=== PATIENT | male | born 1965 | race Caucasian/White ===

== ENCOUNTER → 2018-03-15 16:58 | Outpatient (CLI) | payer MEDICARE, MEDICAID, SELFPAY ==
[2018-03-15 18:15] LABS: Blood Urea Nitrogen 16 mg/dL (9-20); Calcium 9.6 mg/dL (8.4-10.2); Carbon Dioxide 33 mmol/L (22-32); Chloride 90 mmol/L (98-107); Estimated Glomerular Filt Rate > 60.0 mL/min (>60); Glucose 267 mg/dL (70-100); HEMOLYSIS < 15 (0-50); Potassium 4.4 mmol/L (3.4-5.1); Sodium 135 mmol/L (137-145)
[2018-03-15 18:17] LABS: Hemoglobin A1C% w Est Avg Glu 8.6 % (4.0-6.0)
== END ==
PROVIDERS: Family Provider Internal Medicine; PCP Internal Medicine; Visit Provider Internal Medicine
DX: E29.1 Testicular hypofunction (principal); E11.9 Type 2 diabetes mellitus without complications; R60.9 Edema, unspecified; E03.9 Hypothyroidism, unspecified
CPT/HCPCS: 36415; 80048; 83036; 84403; 84443

== ENCOUNTER → 2018-04-26 15:32 | Outpatient (CLI) | payer MEDICARE, MEDICAID, SELFPAY ==
--- NOTE | 2018-04-26 | DI.RAD.S_ITS ---
PROCEDURE: XR FOOT RT MIN 3V INDICATIONS: PAIN IN RT FOOT TECHNIQUE: 3 views of the foot were acquired. COMPARISON: [facility], , FOOT 3V LEFT, 05/16/2017, 13:01. [facility], , FOOT 3V RIGHT, 05/16/2017, 13:00. FINDINGS: Bones: No appreciable change in the pattern of diffuse degenerative osteoarthritic spurring at the midfoot and hindfoot which has been present bilaterally with reference to comparison plain films. 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 Prominent osteophytic spurring is present at the Achilles tendon and plantar fascial insertion and there is heterotopic bone formation within the posterior plantar fascia as was previously the case.. Soft tissues: No tibiotalar joint effusion. Achilles tendon appears normal. IMPRESSION: Stable appearance over time when comparing to the prior right foot plain films from May 2017. The appearance on the left is quite similar, and no new trauma or evidence of erosive arthritis is found. Dictated by: Pete Prasad M.D. on 04/26/2018 at 16:08 Approved by: Pete Prasad M.D. on 04/26/2018 at 16:10
== END ==
PROVIDERS: Family Provider Internal Medicine; PCP Internal Medicine; Visit Provider Internal Medicine
DX: M79.671 Pain in right foot (principal); M19.071 Primary osteoarthritis, right ankle and foot
CPT/HCPCS: 73630

== ENCOUNTER 2018-05-28 14:24 | Emergency (ER) | payer MEDICARE, MEDICAID, SELFPAY ==
[2018-05-28 14:42] VITALS: BP 148/93; PULSE 101; RESP 16; TEMP 36.5; O2SAT 92; BMI 48.6
--- NOTE | 2018-05-28 14:50 | ED.URI ---
HPI - URI/Sore Throat <DRE Vigil - Last Filed: 05/28/18 22:07> General Chief Complaint: Upper Respiratory Symptoms Stated Complaint: Flu Time Seen by Provider: 05/28/18 14:43 Source: patient Mode of arrival: ambulatory Limitations: no limitations History of Present Illness HPI Narrative: 53-year-old male with history of asthma and allergies that is a nonsmoker here for complaint of having a cough along with nausea vomiting and diarrhea with fever over the past 4 days. He reports decreased p.o. intake due to the nausea and vomiting. His has had similar symptoms. They feel like they have the flu. Last p.o. intake was earlier today. Cough is dry and nonproductive. No abdominal pain. No urinary symptoms. No other concerns or complaints at this time. Related Data Home Medications Medication Instructions Recorded Confirmed multivitamin 1 cap PO QDAY #0 10/13/11 05/28/18 potassium chloride [Klor-Con M20] 20 meq PO AMCC #0 tab 04/18/16 05/28/18 spironolactone 100 mg PO BID #0 04/18/16 05/28/18 pregabalin [Lyrica] 100 mg PO TID #0 08/28/17 05/28/18 carvedilol [Coreg] 25 mg PO BIDCC #60 09/28/17 05/28/18 duloxetine 60 mg PO BID #30 09/28/17 05/28/18 cholecalciferol (vitamin D3) 50,000 unit PO 2XW #0 10/11/17 05/28/18 hydroxychloroquine 400 mg PO QDAY #0 10/11/17 05/28/18 metolazone 5 mg PO BID #0 10/11/17 05/28/18 terbinafine HCl 250 mg PO QDAYP PRN #0 10/11/17 05/28/18 tramadol 100 mg PO TIDP PRN #0 10/11/17 05/28/18 aspirin 81 mg PO DAILY 05/28/18 levocetirizine [Xyzal] 1 tab PO BID 05/28/18 05/28/18 levothyroxine 250 mcg PO DAILY 05/28/18 05/28/18 liothyronine 50 mcg PO DAILY 05/28/18 05/28/18 meloxicam 15 mg PO DAILY 05/28/18 05/28/18 metformin 500 mg PO BID 05/28/18 05/28/18 mirtazapine 15 mg PO BEDTIME 05/28/18 05/28/18 morphine 40 mg PO Q12H 05/28/18 05/28/18 naloxone 1 dose IM .ONCE PRN 05/28/18 05/28/18 naloxone [Narcan] 1 mg INTRANASAL Q3-5M PRN 05/28/18 05/28/18 oxycodone-acetaminophen [Percocet] 1 - 2 tab PO Q6H PRN MDD 3 05/28/18 05/28/18 polyethylene glycol 3350 [Miralax] 17 g PO DAILY 05/28/18 05/28/18 pregabalin [Lyrica] 1 cap PO TID 05/28/18 05/28/18 sennosides [senna] 3 tab PO BID 05/28/18 05/28/18 tadalafil [Cialis] 5 mg PO DAILY 05/28/18 05/28/18 tamsulosin [Flomax] 1 cap PO DAILY 05/28/18 05/28/18 torsemide 40 mg PO TID 05/28/18 05/28/18 Previous Rx's Medication Instructions Recorded ondansetron [Zofran ODT] 4 mg PO Q6-8H PRN #10 tab 05/28/18 Allergies Allergy/AdvReac Type Severity Reaction Status Date / Time heparin (porcine) Allergy Severe BREATHINBG Verified 05/28/18 14:41 [HEPARIN,PORCINE] DIFFICULTIES Penicillins Allergy Severe RASH, Verified 05/28/18 14:41 THROAT SWELLING Pork/Porcine Containing Allergy Severe RASH, Verified 05/28/18 14:41 Products THROAT SWELLING, VOMITING Review of Systems <DRE Vigil - Last Filed: 05/28/18 22:07> Constitutional Reports fever(s) Eyes Denies change in vision, Denies eye discharge, Denies irritation and Denies loss of vision ENT Ears, Nose, Mouth, and Throat: Denies change in voice, Denies neck pain, Denies sore throat and Denies throat swelling Cardiovascular Denies chest pain, Denies irregular heart rhythm, Denies lightheadedness, Denies palpitations and Denies orthopnea Respiratory Reports cough and Denies wheezing Gastrointestinal Gastrointestinal: Reports diarrhea and Reports vomiting Genitourinary Denies hematuria, Denies flank pain, Denies urinary incontinence and Denies urinary urgency Musculoskeletal Denies neck pain Integumentary/Breasts Denies pruritus, Denies erythema, Denies rash and Denies wounds Neurologic Denies confusion and Denies loss of vision Psychiatric Denies anxiety, Denies confusion, Denies depression, Denies homicidal ideation and Denies suicidal ideation Endocrine Denies palpitations Hematologic/Lymphatic Denies easy bruising Allergic/Immunologic Denies urticaria, Denies throat swelling and Denies wheezing Exam <DRE Vigil - Last Filed: 05/28/18 22:07> Initial Vital Signs Initial Vital Signs: Vital Signs Temperature 97.7 F 05/28/18 14:42 Pulse Rate 101 H 05/28/18 14:42 Respiratory Rate 16 05/28/18 14:42 Blood Pressure 148/93 H 05/28/18 14:42 Pulse Oximetry 92 05/28/18 14:42 Const General: cooperative and well developed Nutritional Appearance: well nourished Orientation: alert, awake, oriented x3 and not confused [facility] Mouth: oral mucosae normal and moist mucous membranes Eyes Conjunctivae: conjunctivae normal Sclera: sclerae normal Pupils: PERRL EOM: EOM intact bilaterally Chest Chest: normal inspection of the chest Resp Effort & Inspection: normal respiratory effort, able to speak in complete sentences, no respiratory distress and no use of accessory muscles Auscultation: clear to auscultation bilaterally, no rales, no rhonchi and no wheezes Cardio Rate: regular rate Rhythm: regular rhythm Heart Sounds: no click, no gallops, no murmurs and no rubs Pulses: normal peripheral pulses GI Inspection: non-distended Palpation: soft, no hepatosplenomegaly, No guarding, No pulsatile mass and No tender Auscultation: normal bowel sounds Neuro General: alert, oriented x3, gait normal and no focal motor deficits Speech: speech normal Extrem General: full ROM, no clubbing, cyanosis or edema, no pedal edema and no calf tenderness <Nuzhat Garcia MD - Last Filed: 06/06/18 14:01> Initial Vital Signs Initial Vital Signs: Vital Signs Temperature 97.7 F 05/28/18 14:42 Pulse Rate 101 H 05/28/18 14:42 Respiratory Rate 16 05/28/18 14:42 Blood Pressure 148/93 H 05/28/18 14:42 Pulse Oximetry 92 05/28/18 14:42 Course <DRE Vigil - Last Filed: 05/28/18 22:07> Orders Ordered: Discontinued Medications Sodium Chloride (Normal Saline 0.9%) 1,000 mls @ 1,000 mls/hr IV BOLUS ONE Stop: 05/28/18 16:29 Last Infusion: 05/28/18 18:31 Dose: 0 mls/hr Admin: 05/28/18 16:55 Dose: 1,000 mls/hr Ondansetron HCl (Zofran) 4 mg IV NOW ONE Stop: 05/28/18 15:31 Last Admin: 05/28/18 16:55 Dose: 4 mg Vital Signs - 8 hr 05/28/18 14:42 05/28/18 16:08 05/28/18 18:48 Temperature 97.7 F Pulse Rate 101 H 93 H 93 H Respiratory Rate 16 16 18 Blood Pressure 148/93 H Blood Pressure [Left Arm] 121/80 133/81 Pulse Oximetry 92 95 92 <Nuzhat Garcia MD - Last Filed: 06/06/18 14:01> Orders Ordered: Discontinued Medications Sodium Chloride (Normal Saline 0.9%) 1,000 mls @ 1,000 mls/hr IV BOLUS ONE Stop: 05/28/18 16:29 Last Infusion: 05/28/18 18:31 Dose: 0 mls/hr Admin: 05/28/18 16:55 Dose: 1,000 mls/hr Ondansetron HCl (Zofran) 4 mg IV NOW ONE Stop: 05/28/18 15:31 Last Admin: 05/28/18 16:55 Dose: 4 mg Vital Signs - 8 hr 05/28/18 14:42 05/28/18 16:08 05/28/18 18:48 Temperature 97.7 F Pulse Rate 101 H 93 H 93 H Respiratory Rate 16 16 18 Blood Pressure 148/93 H Blood Pressure [Left Arm] 121/80 133/81 Pulse Oximetry 92 95 92 MDM - URI/Sore Throat <DRE Vigil - Last Filed: 05/28/18 22:07> Lab Data Result diagrams: 05/28/18 16:20 05/28/18 16:20 Lab Results 05/28/18 05/28/18 05/28/18 Range/Units 16:20 16:20 Unknown WBC 12.1 H (4.5-11.0) X10^3/uL RBC 4.90 (4.5-5.9) X10^6/uL Hgb 15.0 (13.5-17.5) g/dL Hct 43.8 (41-53) % MCV 89.5 (80-100) fL MCH 30.6 (26-34) PG MCHC 34.2 (30-36) % RDW 14.8 (11.6-14.8) % Plt Count 223 (150-400) X10^3/uL Neut % (Auto) 63.9 (50-75) % Lymph % (Auto) 21.5 L (25-40) % [place] % (Auto) 11.6 (3-14) % Eos % (Auto) 1.8 L (2-4) % Baso % (Auto) 1.2 (0-2) % Neut # (Auto) 7800 H (2400-8992) /uL Sodium 134 L (137-145) mmol/L Potassium 4.3 (3.4-5.1) mmol/L Chloride 88 L (98-107) mmol/L Carbon Dioxide 33 H (22-32) mmol/L BUN 22 H (9-20) mg/dL Creatinine 1.10 (0.66-1.25) mg/dL Estimated GFR > 60.0 (>60) mL/min BUN/Creatinine Ratio 20.0 (6-22) Glucose 273 H (70-100) mg/dL Calcium 9.9 (8.4-10.2) mg/dL Total Bilirubin 0.7 (0.2-1.3) mg/dL AST 50 (17-59) IU/L ALT 53 (21-72) IU/L Alkaline Phosphatase 72 (38-126) U/L Total Protein 8.4 H (6.3-8.2) g/dL Albumin 5.0 (3.5-5.0) g/dL Globulin 3.4 (1.7-4.1) g/dL Albumin/Globulin Ratio 1.5 (1.0-2.8) Influenza A & B (PCR) Negative (Negative) MDM Narrative Medical decision making narrative: CBC was obtained and shows elevated white count and elevated neutrophils. Chem panel shows low chloride of 88 however is consistent with his prior lab values. glucose was elevated at 273. Influenza swab was obtained was negative. Signs and symptoms presents as a viral syndrome. He is prescribed Zofran to help with the nausea. Plenty of fluids and rest. [id number] Tylenol or Motrin as needed for the discomfort and fever. Follow up with primary care provider. Return emergency room for any worsening symptoms. <Nuzhat Garcia MD - Last Filed: 06/06/18 14:01> Lab Data Lab Results 05/28/18 05/28/18 05/28/18 Range/Units 16:20 16:20 Unknown WBC 12.1 H (4.5-11.0) X10^3/uL RBC 4.90 (4.5-5.9) X10^6/uL Hgb 15.0 (13.5-17.5) g/dL Hct 43.8 (41-53) % MCV 89.5 (80-100) fL MCH 30.6 (26-34) PG MCHC 34.2 (30-36) % RDW 14.8 (11.6-14.8) % Plt Count 223 (150-400) X10^3/uL Neut % (Auto) 63.9 (50-75) % Lymph % (Auto) 21.5 L (25-40) % [place] % (Auto) 11.6 (3-14) % Eos % (Auto) 1.8 L (2-4) % Baso % (Auto) 1.2 (0-2) % Neut # (Auto) 7800 H (9809-5394) /uL Sodium 134 L (137-145) mmol/L Potassium 4.3 (3.4-5.1) mmol/L Chloride 88 L (98-107) mmol/L Carbon Dioxide 33 H (22-32) mmol/L BUN 22 H (9-20) mg/dL Creatinine 1.10 (0.66-1.25) mg/dL Estimated GFR > 60.0 (>60) mL/min BUN/Creatinine Ratio 20.0 (6-22) Glucose 273 H (70-100) mg/dL Calcium 9.9 (8.4-10.2) mg/dL Total Bilirubin 0.7 (0.2-1.3) mg/dL AST 50 (17-59) IU/L ALT 53 (21-72) IU/L Alkaline Phosphatase 72 (38-126) U/L Total Protein 8.4 H (6.3-8.2) g/dL Albumin 5.0 (3.5-5.0) g/dL Globulin 3.4 (1.7-4.1) g/dL Albumin/Globulin Ratio 1.5 (1.0-2.8) Influenza A & B (PCR) Negative (Negative) Discharge Plan Departure Patient Disposition: Home Clinical Impression: Viral illness Discharge Date/Time: 05/28/18 19:11 Interventions: ED Discharge Assessment Last Done: 05/28/18 19:08 Instructions: DI for Vomiting -- Adult Activity Restrictions/Additional Instructions: Signs and symptoms presents as a viral illness. Urine prescribed Zofran to help with the nausea. Plenty of fluids and rest. Slowly advance diet as tolerated. Follow up with her primary care provider. For any worsening symptoms return to the emergency room. Prescriptions: New ondansetron [Zofran ODT] 4 mg tablet,disintegrating 4 mg PO Q6-8H PRN (Reason: nausea and vomiting) Qty: 10 RF: 0 No Action multivitamin Tablet 1 cap PO QDAY Qty: 0 RF: 0 potassium chloride [Klor-Con M20] 20 MEQ tablet,ER particles/crystals 20 meq PO AMCC Qty: 0 RF: 0 spironolactone 100 MG tablet 100 mg PO BID Qty: 0 RF: 0 pregabalin [Lyrica] 100 MG capsule 100 mg PO TID Qty: 0 RF: 0 duloxetine 60 MG capsule,delayed release(DR/EC) 60 mg PO BID Qty: 30 RF: 0 carvedilol [Coreg] 25 MG tablet 25 mg PO BIDCC Qty: 60 RF: 0 hydroxychloroquine 200 MG tablet 400 mg PO QDAY Qty: 0 RF: 0 metolazone 5 MG tablet 5 mg PO BID Qty: 0 RF: 0 terbinafine HCl 250 MG tablet 250 mg PO QDAYP PRN (Reason: ANTIFUNGAL) Qty: 0 RF: 0 tramadol 50 MG tablet 100 mg PO TIDP PRN (Reason: PAIN) Qty: 0 RF: 0 cholecalciferol (vitamin D3) 50,000 UNIT capsule 50,000 unit PO 2XW Qty: 0 RF: 0 pregabalin [Lyrica] 300 mg capsule 1 cap PO TID RF: 0 metformin 500 mg Tablet 500 mg PO BID RF: 0 sennosides [senna] 8.6 mg Tablet 3 tab PO BID RF: 0 torsemide 20 mg Tablet 40 mg PO TID RF: 0 polyethylene glycol 3350 [Miralax] 17 gram Powder In Packet 17 g PO DAILY RF: 0 meloxicam 15 mg Tablet 15 mg PO DAILY RF: 0 aspirin 81 mg Tablet,Delayed Release (Dr/Ec) 81 mg PO DAILY RF: 0 tamsulosin [Flomax] 0.4 mg Capsule 1 cap PO DAILY RF: 0 levothyroxine 125 mcg Tablet 250 mcg PO DAILY RF: 0 liothyronine 50 mcg Tablet 50 mcg PO DAILY RF: 0 mirtazapine 15 mg Tablet 15 mg PO BEDTIME RF: 0 tadalafil [Cialis] 5 mg Tablet 5 mg PO DAILY RF: 0 levocetirizine [Xyzal] 5 mg Tablet 1 tab PO BID RF: 0 morphine 40 mg Capsule,Extend.Release Pellets 40 mg PO Q12H RF: 0 naloxone 0.4 mg/0.4 mL Auto-Injector 1 dose IM .ONCE PRN (Reason: NARCOTIC OVERDOSE) RF: 0 naloxone [Narcan] 4 mg/actuation [place],Non-Aerosol 1 mg Intranasal Q3-5M PRN (Reason: UNTIL AWAKE) RF: 0 oxycodone-acetaminophen [Percocet] 5 MG/325 MG tablet 1 - 2 tab PO Q6H MDD 3 PRN (Reason: PAIN) RF: 0 Referrals: Jhon Taylor MD [Primary Care Provider] -
[2018-05-28 15:26] LABS: Influenza A and B by PCR Rapid Negative (Negative)
[2018-05-28 16:08] VITALS: BP 121/80; PULSE 93; RESP 16; O2SAT 95
--- NOTE | 2018-05-28 16:29 | PC.NURSE ---
IV attempt/ hit valve. could not advance/ labs drawn pt states don't want Iv, prefers to wait for lab work
[2018-05-28] MEDS: SODIUM CHLORIDE 0.9% 1,000 ML 1000 ML IV (16:55)
[2018-05-28] MEDS: ONDANSETRON 4 MG/2 ML INJ IV (16:55)
[2018-05-28 17:00] LABS: Alanine Aminotransferase 53 IU/L (21-72); Albumin Globulin Ratio 1.5 (1.0-2.8); Alkaline Phosphatase 72 U/L (38-126); Aspartate Aminotransferase 50 IU/L (17-59); Bilirubin Total 0.7 mg/dL (0.2-1.3); Blood Urea Nitrogen 22 mg/dL (9-20); Calcium 9.9 mg/dL (8.4-10.2); Carbon Dioxide 33 mmol/L (22-32); Chloride 88 mmol/L (98-107); Estimated Glomerular Filt Rate > 60.0 mL/min (>60); Globulin 3.4 g/dL (1.7-4.1); Glucose 273 mg/dL (70-100); Sodium 134 mmol/L (137-145); Total Protein 8.4 g/dL (6.3-8.2)
[2018-05-28 17:03] LABS: HEMOLYSIS 54 (0-50); Potassium 4.3 mmol/L (3.4-5.1)
[2018-05-28 17:06] LABS: Add Manual Diff / Slide Review NO; Basophils Percent Auto 1.2 % (0-2); Eosinophils Percent Auto 1.8 % (2-4); Hematocrit 43.8 % (41-53); Lymphocytes Percent Auto 21.5 % (25-40); Mean Corpuscular HGB Conc 34.2 % (30-36); Mean Corpuscular Hemoglobin 30.6 PG (26-34); Mean Corpuscular Volume 89.5 fL (80-100); Monocytes Percent Auto 11.6 % (3-14); Neutrophils Absolute Auto 7800 /uL (3000-5900); Neutrophils Percent Auto 63.9 % (50-75); Platelet Count 223 X10^3/uL (150-400); Red Cell Distribution Width 14.8 % (11.6-14.8); White Blood Cell Count 12.1 X10^3/uL (4.5-11.0)
[2018-05-28 18:48] VITALS: BP 133/81; PULSE 93; RESP 18; O2SAT 92
== END 2018-05-28 19:11 | disposition home or self-care (01) ==
PROVIDERS: Emergency Provider Nurse Practitioner Family; Family Provider Internal Medicine; PCP Internal Medicine
DX: B34.9 Viral infection, unspecified (principal)
CPT/HCPCS: 36415; 36591; 80053; 85025; 87400; 96361; 96374; 99283; 99284; J2405

== ENCOUNTER → 2018-07-18 13:55 | Outpatient (CLI) | payer MEDICARE, MEDICAID, SELFPAY ==
--- NOTE | 2018-07-18 | DI.RAD.S_ITS ---
PROCEDURE: XR KNEE STANDING BI INDICATIONS: Unspecified osteoarthritis, unspecified site TECHNIQUE: AP standing views of bilateral knees COMPARISON: None. FINDINGS: Bones: There is narrowing of bilateral medial femoral tibial compartments slightly worse on the right side with subchondral sclerosis. No acute fracture or dislocation is seen. No suspicious bony lesions. Soft tissues: No knee joint effusions. No suspicious soft tissue calcification. IMPRESSION: Bilateral mild to moderate medial femorotibial compartment osteoarthritis slightly worse on the right side.. Dictated by: Stephen Hamilton M.D. on 07/18/2018 at 15:18 Approved by: Stephen Hamilton M.D. on 07/18/2018 at 15:21
== END ==
PROVIDERS: Family Provider Internal Medicine; PCP Internal Medicine; Visit Provider Internal Medicine
DX: M17.0 Bilateral primary osteoarthritis of knee (principal)
CPT/HCPCS: 73565

== ENCOUNTER 2018-08-07 12:33 | Outpatient (CLI) | payer MEDICARE, MEDICAID, SELFPAY ==
[2018-08-07 12:40] VITALS: BP 135/76; PULSE 87; RESP 20; TEMP 37.1; O2SAT 96
--- NOTE | 2018-08-07 12:41 | DI.RAD.S_ITS ---
PROCEDURE: PAIN L INTERLAMINAR/CAUDAL INJ INDICATIONS: SPINAL STENOSIS FINDINGS: Fluoroscopic spot filming was performed to verify placement of spinal needles at the L4-5 posterior midline interlaminar level, as labeled on the films. Appropriate location(s) of the needle tip(s) was confirmed by injection of iodinated contrast. IMPRESSION: Successful interlaminar notched localization of the epidural space for epidural steroid injection. Dictated by: Pete Prasad M.D. on 08/07/2018 at 16:53 Approved by: Pete Prasad M.D. on 08/07/2018 at 16:54
[2018-08-07 13:21] VITALS: BP 115/50; PULSE 89; RESP 16; O2SAT 94
--- NOTE | 2018-08-07 13:23 | PC.NURSE ---
NO SEDATION MEDS GIVEN FOR PROCEDURE, PT REFUSED.
[2018-08-07 13:25] VITALS: BP 124/96; PULSE 81; RESP 18; O2SAT 95
[2018-08-07] MEDS: BUPIVACAINE 0.25% (PF) VIAL 2 ML INJ (13:27)
[2018-08-07] MEDS: IOPAMIDOL 15 ML VIAL 3 ML INJ (13:27)
[2018-08-07] MEDS: DEXAMETHASONE 10 MG/ML VIAL 20 MG INJ (13:27)
[2018-08-07] MEDS: methylPREDNISolone acetate 80 MG/ML VIAL INJ (13:27)
--- NOTE | 2018-08-07 13:29 | PC.NURSE ---
ASSISTING PT OFF TABLE AND TRANSPORTING TO POST PROC AREA IN STABLE CONDITION
--- NOTE | 2018-08-07 13:33 | P.PCN_ITS ---
Procedures Date/Time Date of procedure: 08/07/18 Time of procedure: 13:31 General Procedure description: PROVIDER: Hay Wagner DO Operative Note PREOP DIAGNOSIS 1. HNP WITH RADICULAR FEATURES, 2. MULTILEVEL CENTRAL STENOSIS, POST OP DIAGNOSIS 1. HNP WITH RADICULAR FEATURES, 2. MULTILEVEL CENTRAL STENOSIS PROCEDURES 1. FLUORSCOPICALLY GUIDED CONTRAST CONTROLLED INTERLAMINAR EPIDURAL STEROID INJECTION -L4/5 PHYSICIAN: Hay Wagner DO INDICATIONs: Bubba is referred by Dr. Taylor for treatment of Bilateral Foraminal Stenosis R> L LE symptoms. FINDINGS Multilevel Central Spinal Stenosis with Nerve Root Compression DESCRIPTION OF PROCEDURE Fluoroscopically guided, contrast-controlled L4/5 translaminar epidural steroid injection. Following denial of allergy and review of potential side effects and complications, including, but not necessarily limited to, infection, allergic reaction, local tissue breakdown, temporary as well as permanent nerve injury, paralysis, stroke and possible , the patient indicated that the patient understood and agreed to proceed. An informed consent document was signed by the patient, witnessed by a nurse, and placed in the patient's chart. Additionally, other treatment options including modalities, medications, and physical therapy were reviewed with the patient. After review of previous anaesthesic history and IV conscious sedation the patient was deemed safe to proceed with todays procedure with IV conscious sedation as ASA class II designation. Safety time-out was performed to confirm patient ID, procedure to be performed and site of procedure. IV sedation was deemed unnecessary and thus not administered by the RN after DO order, the patient remained responsive to all verbal commands In the prone position, following sterile prep and drape of the lumbar region, the L4/5 translaminar space was identified fluoroscopically. The skin was anesthetized via a 25-gauge, 1.5-inch needle with 1% lidocaine solution. At this point, a 22-gauge short bevel spinal needle was atraumatically introduced and advanced under fluoroscopic guidance into the region of the L4/5 translaminar space. Depth was confirmed on lateral view. Radiological data, including multiple fluoroscopic views of the lumbar spine, reveal a spinal needle at the L4/5 translaminar space. Lateral views then show placement of the needle in the epidural space. Subsequent views show contrast material flowing superiorly and inferiorly in the epidural space. No vascular or intrathecal uptake is observed. At this point, using loss of resistance technique with saline and air, the epidural space was entered. This was confirmed following negative aspiration with injection of approximately 1.5 cc of Isovue 200, showing excellent epidural flow without vascular or intrathecal uptake. At this point, 1 cc of 1 % lidocaine solution combined with 3 cc or 20 mg of dexamethasone and 80mg Depo medrol was injected without incident. The patient tolerated the procedure well without signs or symptoms of complications prior to transfer to the recovery area continued monitoring without incident. The patient was then transferred to the recovery area where they were observed for an appropriate period of time after the injection. The patient reported a VAS score of 6 prior to the procedure and a post- procedure VAS of 0. Total Fluoroscopy Time: 11.8 seconds, 8.99 mGy Total Conscious Sedation Time: 24min POST OP INSTRUCTIONS The patient was provided a Pain Log to continue to record their response to the target-specific procedure prior to follow-up visit with their referring physician. Additionally, specific post-injection care instructions and a contact number to our office were provided if concerns arise regarding possible complications associated with the procedure are suspected. Hay Wagner DO Complications: none
[2018-08-07 13:35] VITALS: BP 104/58; PULSE 88; RESP 18; O2SAT 93
--- NOTE | 2018-08-07 13:54 | PC.NURSE ---
REceived pt post procedure. Related to compromised access pt did not get any sedation. pt was ready to leave as soon as he arrived in post procedure. Resumed monitoring. HE was able to move himself from W/C to chair without assistance.
== END 2018-08-07 13:47 ==
LOC: RAD 12:38
PROVIDERS: Family Provider Internal Medicine; PCP Internal Medicine; Visit Provider Physical Medicine & Rehabilitation
DX: M51.16 Intervertebral disc disorders with radiculopathy, lumbar region (principal); M48.061 Spinal stenosis, lumbar region without neurogenic claudication
CPT/HCPCS: 62323; J1040; J1100; J2250

== ENCOUNTER → 2019-03-11 18:00 | Outpatient (CLI) | payer MEDICARE, MEDICAID, SELFPAY ==
[2019-02-27 16:29] VITALS: BMI 53.1
== END ==
PROVIDERS: Family Provider Internal Medicine; PCP Internal Medicine; Visit Provider Physician Assistant
DX: L02.91 Cutaneous abscess, unspecified (principal)
CPT/HCPCS: 87070; 87075; 87077; 87186; 87205

== ENCOUNTER → 2019-04-03 17:12 | Outpatient (CLI) | payer MEDICARE, MEDICAID, SELFPAY ==
[2019-02-27 16:29] VITALS: BMI 53.1
--- NOTE | 2019-04-03 17:14 | DI.RAD.S_ITS ---
PROCEDURE: XR ELBOW RT MIN 3V INDICATIONS: Right elbow pain TECHNIQUE: 3 views of the elbow were acquired. COMPARISON: None. FINDINGS: Bones: No fractures or dislocations. No suspicious bony lesions. Joint space narrowing and osteophytosis is present at the right elbow joint. Soft tissues: No elbow joint effusion. No suspicious soft tissue calcifications. IMPRESSION: No acute radiographic findings. Degenerative change. Dictated by: Jo Mcgrath M.D. on 04/03/2019 at 17:40 Approved by: Jo Mcgrath M.D. on 04/03/2019 at 17:41
== END ==
PROVIDERS: Family Provider Internal Medicine; PCP Internal Medicine; Visit Provider Physician Assistant
DX: M25.521 Pain in right elbow (principal); M25.721 Osteophyte, right elbow; J47.9 Bronchiectasis, uncomplicated
CPT/HCPCS: 73080; G0424

== ENCOUNTER → 2019-04-10 15:04 | Outpatient (CLI) | payer MEDICARE, MEDICAID, SELFPAY ==
[2019-02-27 16:29] VITALS: BMI 53.1
[2019-04-10 16:52] LABS: Prostate Specific Antigen 0.652 ng/mL (0.10-4.00)
== END ==
PROVIDERS: Family Provider Internal Medicine; PCP Internal Medicine; Visit Provider Urology
DX: N40.1 Benign prostatic hyperplasia with lower urinary tract symptoms (principal)
CPT/HCPCS: 36415; 84153

== ENCOUNTER 2019-05-22 14:00 | Outpatient (RCR) | payer MEDICARE, MEDICAID, SELFPAY ==
[2019-02-27 16:29] VITALS: BP 124/78; RESP 16; O2SAT 93; BMI 53.1
--- NOTE | 2019-02-27 16:46 | PR.IEVALNOTE ---
Current Diagnoses Bronchiectasis, uncomplicated (02/27/19) Past Medical History (Last Reviewed 12/25/18 @ 15:22 by Hay Wagner DO) Anemia (Acute) Arthritis (Acute) Asthma (Acute) History of migraine headaches (Acute) Obesity (Acute) Spinal stenosis of lumbar region at multiple levels (Acute) Provider Team Visit Care Team Role Provider Type Jhon Taylor MD Attending Provider Physician Family Provider Primary Care Provider Specialty: Internal Medicine Address: [address] [place] [address], [facility] Email: Pulmonary Rehab Initial Evaluation MO Pulmonary Rehab Inital Assessment Start: 12/24/18 13:44 Freq: Status: Active Protocol: Document 02/27/19 14:22 SHAUN (Rec: 02/27/19 14:22 SHAUN [id number]) MO Exercise Assessment Dx: copd Comment semi-paralysis right diaphragm Document 02/27/19 16:29 SHAUN (Rec: 02/27/19 16:46 SHAUN [id number]) MO Exercise Assessment Dx: COPD Comment Asthma-reactive airway disease right paralyzed hemidiaphragm morbid obesity Primary Language [place] 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 Crane 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 Required No Hearing Ability Normal Visual Impairment No Limitations Visual Difficutly None Visual Assist None Musculoskeletal Symptoms Abnormal Gait Joint Pain Muscle Cramps Muscle Spasms Body Alignment Posture Forward Head Leaning Rigid Assistive Devices None Comment no current exercise program 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 [place] Vital Signs Pulse Oximetry (91-100 %) 93 Nasal Cannula No Respiratory Rate (12-24 breaths/min) 16 Respiratory Effort Labored with Exertion Respiratory Depth Normal Respiratory Pattern Accessory Muscle Use Assessment diminished on right clear on left no wheeze rales ronchi Left Arm Blood Pressure (90/60-140/90 mmHg) 124/78 Blood Pressure Method Manual Cuff/Auscultation Blood Pressure Position Sitting Bilateral Ankle Comment +2 MO Six Minute Walk Test Oxygen Delivery Method Room Air Respiratory Rate (breaths/min) 16 Pulse Rate (beats/min) 88 O2 Saturation by Pulse Oximetry (%) 93 Pulse Rate (beats/min) 110 Ambulation Distance (feet) 150 O2 Saturation by Pulse Oximetry (%) 93 Pulse Rate (beats/min) 124 Ambulation Distance (feet) 150 O2 Saturation by Pulse Oximetry (%) 93 Pulse Rate (beats/min) 125 Ambulatory Distance (feet) 100 O2 Saturation by Pulse Oximetry (%) 91 Pulse Rate (beats/min) 128 Ambulation Distance (feet) 100 O2 Saturation by Pulse Oximetry (%) 91 Pulse Rate (beats/min) 128 Ambulation Distance (feet) 50 O2 Saturation by Pulse Oximetry (%) 92 PUlse Rate (beats/min) 128 Ambulation Distance (feet) 100 O2 Saturation by Pulse Oximetry (%) 50 Respiratory Rate (breaths/min) 18 Pulse Rate (beats/min) 86 O2 Saturation by Pulse Oximetry (%) 94 Activity Tolerance Poor Adverse Reactions Pulse Increase > 20 bpm Increased Shortness of Breath Musculoskeletal Pain Unsteady Gait Distance 750 Marielle RPE Scale 14 Oriented to RPE Scale Yes Dyspnea 3 Oriented to Dyspnea Scale Yes MO Exercise Goals DASI Number and Comment 7.34 Short Term improve mobility MO Pulmonary Rehab Orientation Complete Complete Yes MO Nutrition Assessment PFT Date 06/24/14 Forced Vital Capacity (FVC) 1.39 21% Slow Vital Capacity (SVC) 1.63 24% Forced Exp. Volume/Forced Vital Cap 81 Ratio (FEV1/FVC Ratio) Forced Expiratory Volume in 1 sec. 1.12 22% History of Diabetes Yes Type Type 2 Oral Diabetic Medication Agents METFORMIN On Insulin No Glucose Monitoring Yes Admit Height 198.12 cm Admit Weight 208.652 kg Admit Body Mass Index (BMI) 53.1 MO Education Pre-Test Score 93% Tobacco Use N/A Use No Concerns None Education Topics Breathing Retraining Discussed Education Requirements on Yes Intake MO Psychosocial Initial Assess HADS Score 19 HADS Score 11 Marital Status UNMARRIED Additional Comment LIVES WITH MOTHER Referral Needed Yes Counselling Refused Yes Physician Comment Ready for Pulmonary Rehabilitation Cooperative Depressed/Withdrawn
[2019-03-27 15:43] VITALS: BMI 44.4
--- NOTE | 2019-03-27 15:55 | PR.REVALNOTE ---
Current Diagnoses Bronchiectasis, uncomplicated (03/27/19) Past Medical History (Last Reviewed 12/25/18 @ 15:22 by Hay Wagner DO) Anemia (Acute) Arthritis (Acute) Asthma (Acute) History of migraine headaches (Acute) Obesity (Acute) Spinal stenosis of lumbar region at multiple levels (Acute) Provider Team Visit Care Team Role Provider Type Jhon Taylor MD Attending Provider Physician Family Provider Primary Care Provider Specialty: Internal Medicine Address: [address] [place] [address], [facility] Email: [email or web address] Pulmonary Rehab Re-Evaluation OR Pulmonary Rehab. Re-Assessment Start: 12/24/18 13:44 Freq: Status: Active Protocol: Document 03/27/19 15:43 JWS (Rec: 03/27/19 15:55 JWS [id number]) OR Exercise Re-Assessment Type Treadmill BioDex PAULO Arm Bike METs (resistance level) 2.23 TM, 3.19ARM BIKE, % Improvement 4%TM 65%ARM BIKE Interval Training No Shortness of Breath with Exercise Yes Desaturation with Exercise No Free Weight Yes: 12# 12R 2S Band Level Yes: #7 Toward Target Goals Patient has increased time on treadmill to 20min-goal met increased functional capacity with improved endurance and strength OR Nutrition Re-Assessment Height 198.12 cm Weight 174.179 kg Current BMI (BMI) 44.4 Progress to Weight Goal Yes Patient Discussion Yes: verbalizes understanding between dietary adherence , weight mgmt and cvex Goals Pt will continue focusing on weight loss Pt will continue to learn tips OR Education Re-Assessment Topics Normal Anatomy and Physiology Breathing Retraining Bronchial Hygiene Benefits of Exercise Activities of daily living/ Leisure Activities Coping with Chronic Lung Disease Goals Pt will Master PLB and Diaphragmatic Breathing Pt will Master Energy Conserving Techniques Pt will learn exercise safety Pt will continue ED topics until completion OR Psychosocial Re-Assessment Patient in Class Regularly Yes Interventions Pt attending class regularly Goals Pt will continue to attend classes 3x wk Participate in social and educational discussion Received emotional support from family/friends
== END 2020-01-22 07:22 ==
LOC: PUL 14:00
PROVIDERS: Family Provider Internal Medicine; PCP Internal Medicine; Visit Provider Internal Medicine
DX: J47.9 Bronchiectasis, uncomplicated (principal)
CPT/HCPCS: G0237; G0424

== ENCOUNTER → 2019-05-29 13:04 | Outpatient (CLI) | payer MEDICARE, MEDICAID, SELFPAY ==
[2019-02-27 16:29] VITALS: BMI 53.1
== END ==
PROVIDERS: Family Provider Internal Medicine; PCP Internal Medicine; Visit Provider Family Medicine
DX: S51.801A Unspecified open wound of right forearm, initial encounter (principal); L29.8 Other pruritus; R21 Rash and other nonspecific skin eruption; I89.0 Lymphedema, not elsewhere classified
CPT/HCPCS: 97597; 99203

== ENCOUNTER → 2019-06-05 13:34 | Outpatient (CLI) | payer MEDICARE, MEDICAID, SELFPAY ==
[2019-02-27 16:29] VITALS: BMI 53.1
== END ==
PROVIDERS: Family Provider Internal Medicine; PCP Internal Medicine; Visit Provider Family Medicine
DX: S51.801D Unspecified open wound of right forearm, subsequent encounter (principal); L29.8 Other pruritus; R21 Rash and other nonspecific skin eruption
CPT/HCPCS: 99212; 99213

== ENCOUNTER 2019-06-24 11:45 | Outpatient (CLI) | payer MEDICARE, MEDICAID, SELFPAY ==
[2019-02-27 16:29] VITALS: BMI 53.1
--- NOTE | 2019-06-24 11:47 | DI.RAD.S_ITS ---
PROCEDURE: PAIN L INTERLAMINAR/CAUDAL INJ INDICATIONS: INTERVERTEBRAL DISC DISPLACEMENT FINDINGS: Fluoroscopic spot filming was performed to verify placement of spinal needles at the L1-L2 level(s), as labeled on the films. Appropriate location(s) of the needle tip(s) was confirmed by injection of iodinated contrast. IMPRESSION: Successful needle tip localization for L1-L2 interlaminar epidural steroid injection. Dictated by: Pete Prasad M.D. on 06/24/2019 at 13:19 Approved by: Pete Prasad M.D. on 06/24/2019 at 13:19
[2019-06-24 12:15] VITALS: BP 139/77; PULSE 71; RESP 18; TEMP 36.5; O2SAT 97
[2019-06-24 12:30] VITALS: BP 125/60; PULSE 68; RESP 16; O2SAT 96
--- NOTE | 2019-06-24 12:33 | PC.NURSE ---
PT AND DR LARKIN DECIDED PT WOULD HAVE PROCEDURE DONE WITHOUT SEDATION. NO IV STARTED BY PT REQUEST AND DO OKAY'D.
[2019-06-24 12:35] VITALS: BP 130/48; PULSE 67; RESP 16; O2SAT 94
[2019-06-24] MEDS: BUPIVACAINE 0.25% (PF) VIAL 2 ML INJ (12:39)
[2019-06-24] MEDS: IOPAMIDOL 15 ML VIAL 3 ML INJ (12:39)
[2019-06-24] MEDS: BETAMETHASONE 30 MG/5 ML MDV 12 MG INJ (12:40)
[2019-06-24] MEDS: DEXAMETHASONE 10 MG/ML VIAL 20 MG INJ (12:40)
--- NOTE | 2019-06-24 12:42 | PC.NURSE ---
ASSISTING PT OFF TABLE AND TRANSPORTING TO POST PROC AREA IN STABLE CONDITION. NO SEDATION MEDS GIVEN.
--- NOTE | 2019-06-24 12:46 | P.PCN_ITS ---
Procedures Date/Time Date of procedure: 06/24/19 Time of procedure: 12:46 General Procedure description: POST OP DIAGNOSIS 1. HNP WITH RADICULAR FEATURES, 2. MULTILEVEL CENTRAL STENOSIS, PROCEDURES 1. FLUORSCOPICALLY GUIDED CONTRAST CONTROLLED INTERLAMINAR EPIDURAL STEROID INJECTION - L1/2 PHYSICIAN: Hay Wagner, INDICATIONS Bubba is referred by for treatment of Bilateral Foraminal Stenosis L>R LE symptoms. FINDINGS Multilevel Central Spinal Stenosis with Nerve Root Compression DESCRIPTION OF PROCEDURE Fluoroscopically guided, contrast-controlled L1/2 translaminar epidural steroid injection. Following review of allergy and review of potential side effects and complications, including, but not necessarily limited to, infection, allergic reaction, local tissue breakdown, temporary as well as permanent nerve injury, paralysis, stroke and possible , the patient indicated that the patient understood and agreed to proceed. An informed consent document was signed by the patient, witnessed by a nurse, and placed in the patient's chart. Additionally, other treatment options including modalities, medications, and physical therapy were reviewed with the patient. After review of previous anaesthesic history and IV conscious sedation the patient was deemed safe to proceed with todays procedure with IV conscious sedation as ASA class II designation. Safety time-out was performed to confirm patient ID, procedure to be performed and site of procedure. IV sedation was deemed unnecessary and thus not administered by the RN after DO order, titrated to patient comfort during the course of the procedure while the patient remained responsive to all verbal commands In the prone position, following sterile prep and drape of the lumbar region, the L1/2 translaminar space was identified fluoroscopically. The skin was anesthetized via a 25-gauge, 1.5-inch needle with 1% lidocaine solution. At this point, a 22-gauge short bevel spinal needle was atraumatically introduced and advanced under fluoroscopic guidance into the region of the L1/2 translaminar space. Depth was confirmed on lateral view. Radiological data, including multiple fluoroscopic views of the lumbar spine, reveal a spinal needle at the L1/2 translaminar space. Lateral views then show placement of the needle in the epidural space. Subsequent views show contrast material flowing superiorly and inferiorly in the epidural space. No vascular or intrathecal uptake is observed. At this point, using loss of resistance technique with saline and air, the epidural space was entered. This was confirmed following negative aspiration with injection of approximately 1.5 cc of Isovue 200, showing excellent epidural flow without vascular or intrathecal uptake. At this point, 1 cc of 1% lidocaine solution combined with 3cc or 20mg of dexamethasone and 6mg of betamethasone was injected without incident. The patient tolerated the procedure well without signs or symptoms of complications prior to transfer to the recovery area continued monitoring without incident. The patient was then transferred to the recovery area where they were observed for an appropriate period of time after the injection. The patient reported a VAS score of 6 prior to the procedure and a post- procedure VAS of 0. Total Fluoroscopy Time: 11.8 seconds Total Conscious Sedation Time: 24min POST OP INSTRUCTIONS The patient was provided a Pain Log to continue to record their response to the target-specific procedure prior to follow-up visit with their referring physician. Additionally, specific post-injection care instructions and a contact number to our office were provided if concerns arise regarding possible complications associated with the procedure are suspected. Hay Wagner, Complications: none
[2019-06-24 12:55] VITALS: BP 124/76; PULSE 64; RESP 16; O2SAT 96
== END 2019-06-24 12:56 | disposition home or self-care (01) ==
PROVIDERS: PCP Internal Medicine; Visit Provider Physical Medicine & Rehabilitation
DX: M51.16 Intervertebral disc disorders with radiculopathy, lumbar region (principal); M48.061 Spinal stenosis, lumbar region without neurogenic claudication
CPT/HCPCS: 62323; J0702; J1100; J2250; J3010

== ENCOUNTER 2019-06-30 15:15 | Outpatient (RCR) | payer MEDICARE, MEDICAID, SELFPAY ==
--- NOTE | 2017-12-21 17:32 | PT.OIE ---
Current Diagnoses Unspecified inflammatory spondylopathy, lumbar region (12/21/17) Low back pain (12/21/17) Muscle weakness (generalized) (12/21/17) Muscle spasm of back (12/21/17) Past Medical History (Last Updated 12/13/17 @ 16:49 by Carey Dutta MA) Anemia (Acute) Arthritis (Acute) Asthma (Acute) History of migraine headaches (Acute) Obesity (Acute) Spinal stenosis of lumbar region at multiple levels (Acute) Provider Visit Care Team Role Provider Type Jhon Taylor MD Family Provider Physician Primary Care Provider Specialty: Internal Medicine Address: [address] [place] [address], [id number] Email: Hay Wagner DO Attending Provider Physician Specialty: Physiatry Pain Management Address: [address] [place] [address], [phone] Email: Physical Therapy Initial Evaluation PT-OP-A Visit Information Start: 12/21/17 16:51 Freq: Status: Active Protocol: Document 12/21/17 13:45 DCW (Rec: 12/21/17 17:30 DCW [id number]) Out-Patient Physical Therapy Visit Information Visit Information Visit Type Initial Evaluation Visit Start Time 13:45 Visit Stop Time 14:30 Total Visit Minutes 45 Visit Number 1 Number of HAND SHOES SEWER Visits 0 Evaluation Information Evaluation Date 12/21/17 PT-OP-B Current Condition Start: 12/21/17 16:51 Freq: Status: Active Protocol: Document 12/21/17 13:45 DCW (Rec: 12/21/17 17:30 DC [id number]) Current Condition History of Current Condition Onset Date 3 years Current Complaints Constant, severe low back pain History of Current Condition Pt is a 52 year old male presenting with a multi-year history of low back pain. He has been seen at this clinic multiple times for this same issue. Patient reports that he will receive an injection in his Lumbar/SI region, have a month or two of physical therapy, and then he will be able to function for about a year, before starting all over again. Pt currently reports a 7/10 pain bilaterally in his low back, pretty much right along where a weight-mass spectroscopist's belt would sit. Pt reports his only comfortable position is sitting in a recliner. He reports his pain has impacted his life, and he can no longer walk comfortably, sleep, sit, stand, drive for any distance , or have any sort of social life. Prior Treatments and Tests Prior Physical Therapy 10/19/17: L4-5 and SI Translaminar injection Treatment Goals Patient/Caregiver Goals I just want you to do something for the muscle spasms. I'd like to be able to stand up straight, and resume a normal, productive life. Prior Functional Status Baseline Function- ADL's Independent Baseline Function- Mobility Independent Current Functional Impairments (Reported) Functional Limitations- ADL's Pain with standing or sitting for 10+ minutes Pain disturbs sleep Unable to drive 30+ minutes Functional Limitations- Mobility/Gait Pt reports he must drive from his house to the barn, which is ~100 yards away. 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 Personal Factors Other Personal Factors That May Effect Morbid Obesity, Neuropathy, Therapy/Recovery Phrenic nerve palsy, cervical spinal fusion PT-OP-C Subjective Start: 12/21/17 16:51 Freq: Status: Active Protocol: Document 12/21/17 13:45 DCW (Rec: 12/21/17 17:30 DCW [id number]) Patient Questionnaires Oswestry Low Back Index Oswestry Score 38/50 - 76% Oswestry Impairment 60 to 79% Impaired (Score 60- 79) OP-PT Pain Assessment Pain Assessment Grid Paper Pain Assessment Grid Completed Yes Location Bilateral Lower Back Intensity 7 Scale Used Numeric (1 - 10) Description Chronic Radiating Sharp Shooting Spasm Tender Tightness Description- Other 7/10 constant, 10/10 with most activity Frequency Constant Radiating Location From spine across low back Pain Aggravating Factors Position ADL's Activity Standing Sitting Walking Pain Behaviors Pain Behaviors Facial Grimacing Guarding Restlessness Wincing PT-OP-F Manual Assessment Start: 12/21/17 16:51 Freq: Status: Active Protocol: Document 12/21/17 13:45 DCW (Rec: 12/21/17 17:30 DCW [id number]) Manual Assessments Joint Mobility Assessment Joint Mobility Assessment P->A hypomobility and 3/5 - Wincing and Withdrawal tenderness in L1-L5 and bilateral SI joints PT-OP-J Posture/Palpation/Skin Start: 12/21/17 16:51 Freq: Status: Active Protocol: Document 12/21/17 13:45 DCW (Rec: 12/21/17 17:30 DCW [id number]) Palpation Assessment Location Four Palpation Location Gluteus Max Palpation Findings Soft Tissue Tightness Spasm Muscle Guarding Tenderness Palpation Details Severe Tone and Tenderness 3/5 - Wincing and Withdrawal Three Palpation Location Quadratus Lumborum Palpation Findings Soft Tissue Tightness Spasm Muscle Guarding Tenderness Palpation Details Severe Tone and Tenderness 3/5 - Wincing and Withdrawal Two Palpation Location Piriformis Palpation Findings Soft Tissue Tightness Spasm Muscle Guarding Tenderness Palpation Details Severe Tone and Tenderness 3/5 - Wincing and Withdrawal One Palpation Location Multifidi Palpation Findings Soft Tissue Tightness Spasm Muscle Guarding Tenderness Palpation Details Severe Tone and Tenderness 3/5 - Wincing and Withdrawal PT-OP-K Range of Motion Start: 12/21/17 16:51 Freq: Status: Active Protocol: Document 12/21/17 13:45 DCW (Rec: 12/21/17 17:30 DCW [id number]) Lumbar Spine Range of Motion Lumbar Spine Active Degrees Testing Position Standing Flexion 8 Extension 0 Comments Rotation and Lateral Flexion not tested secondary to pain PT-OP-L Special Tests Start: 12/21/17 16:51 Freq: Status: Active Protocol: Document 12/21/17 13:45 DCW (Rec: 12/21/17 17:30 DCW [id number]) Special Tests Lumbar Spine Special Tests Standing Flexion Test Results Lumbar spine unable to flex more than eight degrees Prone Knee Flexion Test Results Bilateral low back pain Straight Leg Raise Test Results Severe Bilateral pain at 35 degrees Prone Press Up Test Results Complaints of Pain PT-OP-Q Treatments Start: 12/21/17 16:51 Freq: Status: Active Protocol: Document 12/21/17 13:45 DCW (Rec: 12/21/17 17:30 DCW [id number]) Manual Therapy Treatment Soft Tissue Mobilization 3 Body Location Piriformis Mobilization Type Myofascial Release 2 Body Location Quadratus Lumborum Mobilization Type Myofascial Release Strumming Sustained Pressure Trigger Point Release Intensity/Depth Deep Body Position Prone 1 Body Location Multifidi Mobilization Type Myofascial Release Strumming Sustained Pressure Trigger Point Release Intensity/Depth Moderate Body Position Prone PT-OP-T Assessment and Plan Start: 12/21/17 16:51 Freq: Status: Active Protocol: Document 12/21/17 13:45 DCW (Rec: 12/21/17 17:30 DCW [id number]) Physical Therapy Assessment Rehab Potential Rehabilitation Potential Fair Evaluation Complexity Number of Personal Factors/Comorbidities 1-2 Number of Body Systems Impaired 4 or More Clinical Presentation at Evaluation Evolving Impairments Impairments Activity Tolerance Balance Pain Posture ROM Soft Tissue Mobility Tone Goals Six Impairment Activity Tolerance Short Term Goal (STG) Pt to report ability to drive for 60 minutes with no increased pain STG Duration 3 weeks Nursery Hand Goal (LTG) Pt to report ability to walk down to his barn from the house (100 yards) with no increased pain LTG Duration 6 weeks Five Impairment Pain Short Term Goal (STG) Pt to report pain at worst 7/ 10 STG Duration 3 weeks Jail Goal (LTG) Pt to report pain at worst 4/ 10 LTG Duration 6 weeks Four Impairment SLR Nursery Hand Goal (LTG) SLR to 50 degrees without increased pain LTG Duration 6 weeks Three Impairment Joint Mobility Jail Goal (LTG) P->A mobility of L1-5 to WNL LTG Duration 6 weeks Two Impairment Muscle Tone Jail Goal (LTG) Multifidi, QL, Glute Max, and Piriformis tone to Mild LTG Duration 6 weeks One Impairment Palpation Tenderness Jail Goal (LTG) Low back tenderness to palpation down to 1/5 - Complaint of pain LTG Duration 6 weeks Assessment Summary Assessment Pt presents with signs and symptoms consistent with significant spasm of the low back musculature secondary to DJD and HNP. This is an ongoing condition for the patient, and prior physical therapy has helped him control the pain for approximately one year. Skilled therapy should focus on Manual therapy to decrease tone, Modalities for pain control, core strengthening, activity tolerance, position tolerance, and improved ROM Physical Therapy Plan Frequency and Duration Frequency of Treatment 2x/Week Duration of Treatment 12 weeks Plan of Care Start Date 12/21/17 Plan of Care End Date 03/14/18 Therapeutic Interventions Therapeutic Interventions Aquatic Therapy Home Exercise Program Joint Mobilizations Manual Therapy Neuromuscular Re-education Patient/Caregiver Education Soft Tissue Mobilization Therapeutic Exercises Vestibular Rehabilitation Modalities Cold Pack/Ice Massage Electric Stimulation Hot Packs Ultrasound Next Visit Focus/Plan Next Visit Plan Manual therapy for decreasing spasm, modalities (US, E-stim) . Provider Signature Date
--- NOTE | 2017-12-21 17:33 | PT.OPPOC ---
Current Diagnoses Unspecified inflammatory spondylopathy, lumbar region (12/21/17) Low back pain (12/21/17) Muscle weakness (generalized) (12/21/17) Muscle spasm of back (12/21/17) Provider Visit Care Team Role Provider Type Jhon Taylor MD Family Provider Physician Primary Care Provider Specialty: Internal Medicine Address: [address] [place], [place] [id number] Email: Hay Wagner DO Attending Provider Physician Specialty: Physiatry Pain Management Address: [address] [place] [address], [phone] Email: Plan Of Care PT-OP-T Assessment and Plan Start: 12/21/17 16:51 Freq: Status: Active Protocol: Document 12/21/17 13:45 DCW (Rec: 12/21/17 17:30 DCW [id number]) Physical Therapy Assessment Rehab Potential Rehabilitation Potential Fair Evaluation Complexity Number of Personal Factors/Comorbidities 1-2 Number of Body Systems Impaired 4 or More Clinical Presentation at Evaluation Evolving Impairments Impairments Activity Tolerance Balance Pain Posture ROM Soft Tissue Mobility Tone Goals Six Impairment Activity Tolerance Short Term Goal (STG) Pt to report ability to drive for 60 minutes with no increased pain STG Duration 3 weeks Rental Car Ferry Driver Goal (LTG) Pt to report ability to walk down to his barn from the house (100 yards) with no increased pain LTG Duration 6 weeks Five Impairment Pain Short Term Goal (STG) Pt to report pain at worst 7/ 10 STG Duration 3 weeks Rental Car Ferry Driver Goal (LTG) Pt to report pain at worst 4/ 10 LTG Duration 6 weeks Four Impairment SLR Prison Goal (LTG) SLR to 50 degrees without increased pain LTG Duration 6 weeks Three Impairment Joint Mobility Prison Goal (LTG) P->A mobility of L1-5 to WNL LTG Duration 6 weeks Two Impairment Muscle Tone Prison Goal (LTG) Multifidi, QL, Glute Max, and Piriformis tone to Mild LTG Duration 6 weeks One Impairment Palpation Tenderness Prison Goal (LTG) Low back tenderness to palpation down to 1/5 - Complaint of pain LTG Duration 6 weeks Assessment Summary Assessment Pt presents with signs and symptoms consistent with significant spasm of the low back musculature secondary to DJD and HNP. This is an ongoing condition for the patient, and prior physical therapy has helped him control the pain for approximately one year. Skilled therapy should focus on Manual therapy to decrease tone, Modalities for pain control, core strengthening, activity tolerance, position tolerance, and improved ROM Physical Therapy Plan Frequency and Duration Frequency of Treatment 2x/Week Duration of Treatment 12 weeks Plan of Care Start Date 12/21/17 Plan of Care End Date 03/14/18 Therapeutic Interventions Therapeutic Interventions Aquatic Therapy Home Exercise Program Joint Mobilizations Manual Therapy Neuromuscular Re-education Patient/Caregiver Education Soft Tissue Mobilization Therapeutic Exercises Vestibular Rehabilitation Modalities Cold Pack/Ice Massage Electric Stimulation Hot Packs Ultrasound Next Visit Focus/Plan Next Visit Plan Manual therapy for decreasing spasm, modalities (US, E-stim) . Plan of Care Dates Plan of Care Start Date 12/21/17 Plan of Care End Date 03/14/18 Please Sign and Return: I have reviewed this Plan of Care and certify that the skilled therapy services above are required to meet the patient???s needs. Physician Signature Date Printed Name and Credentials
--- NOTE | 2017-12-25 17:58 | PT.OTN ---
Current Diagnoses Unspecified inflammatory spondylopathy, lumbar region (12/25/17) Physical Therapy Treatment Note PT-OP-A Visit Information Start: 12/21/17 16:51 Freq: Status: Active Protocol: Document 12/25/17 15:15 DCW (Rec: 12/25/17 17:58 DCW [id number]) Out-Patient Physical Therapy Visit Information Visit Information Visit Type Treatment Note Visit Start Time 15:15 Visit Stop Time 16:00 Total Visit Minutes 45 Visit Number 2 Number of RESIDENTIAL ENERGY AUDITOR Visits 0 Evaluation Information Evaluation Date 12/21/17 PT-OP-B Current Condition Start: 12/21/17 16:51 Freq: Status: Active Protocol: Document 12/21/17 13:45 DCW (Rec: 12/21/17 17:30 DCW [id number]) Current Condition History of Current Condition Onset Date 3 years Current Complaints Constant, severe low back pain History of Current Condition Pt is a 52 year old male presenting with a multi-year history of low back pain. He has been seen at this clinic multiple times for this same issue. Patient reports that he will receive an injection in his Lumbar/SI region, have a month or two of physical therapy, and then he will be able to function for about a year, before starting all over again. Pt currently reports a 7/10 pain bilaterally in his low back, pretty much right along where a weight-contract administrator's belt would sit. Pt reports his only comfortable position is sitting in a recliner. He reports his pain has impacted his life, and he can no longer walk comfortably, sleep, sit, stand, drive for any distance , or have any sort of social life. Prior Treatments and Tests Prior Physical Therapy 10/19/17: L4-5 and SI Translaminar injection Treatment Goals Patient/Caregiver Goals I just want you to do something for the muscle spasms. I'd like to be able to stand up straight, and resume a normal, productive life. Prior Functional Status Baseline Function- ADL's Independent Baseline Function- Mobility Independent Current Functional Impairments (Reported) Functional Limitations- ADL's Pain with standing or sitting for 10+ minutes Pain disturbs sleep Unable to drive 30+ minutes Functional Limitations- Mobility/Gait Pt reports he must drive from his house to the barn, which is ~100 yards away. 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 Personal Factors Other Personal Factors That May Effect Morbid Obesity, Neuropathy, Therapy/Recovery Phrenic nerve palsy, cervical spinal fusion PT-OP-C Subjective Start: 12/21/17 16:51 Freq: Status: Active Protocol: Document 12/25/17 15:15 DCW (Rec: 12/25/17 17:58 DCW [id number]) OP-PT Subjective Patient Comments Patient Comments Pt reports he actually felt pretty good following his evaluation, and it lasted up until last night, when I was pretty sore again. Patient Reported Progress Improving PT-OP-Q Treatments Start: 12/21/17 16:51 Freq: Status: Active Protocol: Document 12/25/17 15:15 DCW (Rec: 12/25/17 17:58 DCW [id number]) Manual Therapy Treatment Soft Tissue Mobilization 4 Body Location Lumbar Paravetebral Musculature Mobilization Type Cross-Friction Instrument Assisted Rolling Strumming Sustained Pressure Trigger Point Release Intensity/Depth Moderate Body Position Prone 3 Body Location Piriformis Mobilization Type Myofascial Release 2 Body Location Quadratus Lumborum Mobilization Type Myofascial Release Strumming Sustained Pressure Trigger Point Release Intensity/Depth Deep Body Position Prone 1 Body Location Multifidi Mobilization Type Myofascial Release Strumming Sustained Pressure Trigger Point Release Intensity/Depth Moderate Body Position Prone Joint Mobilizations 1 Joint Lumbar 1-5 Direction P->A Grade III Body Position Prone PT-OP-R Modalities Start: 12/21/17 16:51 Freq: Status: Active Protocol: Document 12/25/17 15:15 DCW (Rec: 12/25/17 17:58 DCW [id number]) Ultrasound Therapy Treatment Right Lower Back Treatment Duration (minutes) 5 Patient Position Prone Coupling Medium Ultrasound Gel Frequency Setting (mHz) 1 Mode Setting Continuous Intensity Setting (w/cm2) 1.2 Patient Tolerance Good Left Lower Back Treatment Duration (minutes) 5 Patient Position Prone Coupling Medium Ultrasound Gel Frequency Setting (mHz) 1 Mode Setting Continuous Intensity Setting (w/cm2) 1.2 Patient Tolerance Good PT-OP-T Assessment and Plan Start: 12/21/17 16:51 Freq: Status: Active Protocol: Document 12/25/17 15:15 DCW (Rec: 12/25/17 17:58 DCW [id number]) Physical Therapy Assessment Impairments Impairments Activity Tolerance Balance Pain Posture ROM Soft Tissue Mobility Tone Goals Six Impairment Activity Tolerance Short Term Goal (STG) Pt to report ability to drive for 60 minutes with no increased pain STG Duration 01/11/18 Cloth Shrinking Supervisor Goal (LTG) Pt to report ability to walk down to his barn from the house (100 yards) with no increased pain LTG Duration 02/01/18 Five Impairment Pain Short Term Goal (STG) Pt to report pain at worst 7/ 10 STG Duration 01/11/18 Cloth Shrinking Supervisor Goal (LTG) Pt to report pain at worst 4/ 10 LTG Duration 02/01/18 Four Impairment SLR Fpc Goal (LTG) SLR to 50 degrees without increased pain LTG Duration 02/01/18 Three Impairment Joint Mobility Cloth Shrinking Supervisor Goal (LTG) P->A mobility of L1-5 to WNL LTG Duration 02/01/18 Two Impairment Muscle Tone Fpc Goal (LTG) Multifidi, QL, Glute Max, and Piriformis tone to Mild LTG Duration 02/01/18 One Impairment Palpation Tenderness Fpc Goal (LTG) Low back tenderness to palpation down to 1/5 - Complaint of pain LTG Duration 02/01/18 Assessment Summary Assessment Pt able to stand up straight at the end of today's treatment session, and reported that's the first that has happened in a while. Physical Therapy Plan Frequency and Duration Frequency of Treatment 2x/Week Duration of Treatment 12 weeks Plan of Care Start Date 12/21/17 Plan of Care End Date 03/14/18 Therapeutic Interventions Therapeutic Interventions Aquatic Therapy Home Exercise Program Joint Mobilizations Manual Therapy Neuromuscular Re-education Patient/Caregiver Education Soft Tissue Mobilization Therapeutic Exercises Vestibular Rehabilitation Modalities Cold Pack/Ice Massage Electric Stimulation Hot Packs Ultrasound Next Visit Focus/Plan Next Visit Plan Manual therapy for decreasing spasm, modalities (US, E-stim) .
--- NOTE | 2017-12-27 16:05 | PT.OTN ---
Current Diagnoses Unspecified inflammatory spondylopathy, lumbar region (12/27/17) Physical Therapy Treatment Note PT-OP-A Visit Information Start: 12/21/17 16:51 Freq: Status: Active Protocol: Document 12/27/17 14:30 DCW (Rec: 12/27/17 16:05 DCW [id number]) Out-Patient Physical Therapy Visit Information Visit Information Visit Type Treatment Note Visit Start Time 14:30 Visit Stop Time 15:15 Total Visit Minutes 45 Visit Number 3 Number of SUPERVISOR [employer] Visits 0 Evaluation Information Evaluation Date 12/21/17 PT-OP-B Current Condition Start: 12/21/17 16:51 Freq: Status: Active Protocol: Document 12/21/17 13:45 DCW (Rec: 12/21/17 17:30 DCW [id number]) Current Condition History of Current Condition Onset Date 3 years Current Complaints Constant, severe low back pain History of Current Condition Pt is a 52 year old male presenting with a multi-year history of low back pain. He has been seen at this clinic multiple times for this same issue. Patient reports that he will receive an injection in his Lumbar/SI region, have a month or two of physical therapy, and then he will be able to function for about a year, before starting all over again. Pt currently reports a 7/10 pain bilaterally in his low back, pretty much right along where a weight-professional fighter's belt would sit. Pt reports his only comfortable position is sitting in a recliner. He reports his pain has impacted his life, and he can no longer walk comfortably, sleep, sit, stand, drive for any distance , or have any sort of social life. Prior Treatments and Tests Prior Physical Therapy 10/19/17: L4-5 and SI Translaminar injection Treatment Goals Patient/Caregiver Goals I just want you to do something for the muscle spasms. I'd like to be able to stand up straight, and resume a normal, productive life. Prior Functional Status Baseline Function- ADL's Independent Baseline Function- Mobility Independent Current Functional Impairments (Reported) Functional Limitations- ADL's Pain with standing or sitting for 10+ minutes Pain disturbs sleep Unable to drive 30+ minutes Functional Limitations- Mobility/Gait Pt reports he must drive from his house to the barn, which is ~100 yards away. 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 Personal Factors Other Personal Factors That May Effect Morbid Obesity, Neuropathy, Therapy/Recovery Phrenic nerve palsy, cervical spinal fusion PT-OP-C Subjective Start: 12/21/17 16:51 Freq: Status: Active Protocol: Document 12/27/17 14:30 DCW (Rec: 12/27/17 16:05 DCW [id number]) OP-PT Subjective Patient Comments Patient Comments We must be doing something right, because there is much more cracking and popping in my back than there was before, so there must be some stuff that has loosened up. Patient Reported Progress Improving PT-OP-Q Treatments Start: 12/21/17 16:51 Freq: Status: Active Protocol: Document 12/27/17 14:30 DCW (Rec: 12/27/17 16:05 DCW [id number]) Manual Therapy Treatment Soft Tissue Mobilization 4 Body Location Lumbar Paravetebral Musculature Mobilization Type Cross-Friction Instrument Assisted Rolling Strumming Sustained Pressure Trigger Point Release Intensity/Depth Moderate Body Position Prone 3 Body Location Piriformis Mobilization Type Myofascial Release 2 Body Location Quadratus Lumborum Mobilization Type Myofascial Release Strumming Sustained Pressure Trigger Point Release Intensity/Depth Deep Body Position Prone 1 Body Location Multifidi Mobilization Type Myofascial Release Strumming Sustained Pressure Trigger Point Release Intensity/Depth Moderate Body Position Prone Joint Mobilizations 1 Joint Lumbar 1-5 Direction P->A Grade III Body Position Prone PT-OP-R Modalities Start: 12/21/17 16:51 Freq: Status: Active Protocol: Document 12/27/17 14:30 DCW (Rec: 12/27/17 16:05 DCW [id number]) Ultrasound Therapy Treatment Right Lower Back Treatment Duration (minutes) 5 Patient Position Prone Coupling Medium Ultrasound Gel Frequency Setting (mHz) 1 Mode Setting Continuous Intensity Setting (w/cm2) 1.2 Patient Tolerance Good Left Lower Back Treatment Duration (minutes) 5 Patient Position Prone Coupling Medium Ultrasound Gel Frequency Setting (mHz) 1 Mode Setting Continuous Intensity Setting (w/cm2) 1.2 Patient Tolerance Good PT-OP-T Assessment and Plan Start: 12/21/17 16:51 Freq: Status: Active Protocol: Document 12/27/17 14:30 DCW (Rec: 12/27/17 16:05 DCW [id number]) Physical Therapy Assessment Impairments Impairments Activity Tolerance Balance Pain Posture ROM Soft Tissue Mobility Tone Goals Six Impairment Activity Tolerance Short Term Goal (STG) Pt to report ability to drive for 60 minutes with no increased pain STG Duration 01/11/18 Custodial Goal (LTG) Pt to report ability to walk down to his barn from the house (100 yards) with no increased pain LTG Duration 02/01/18 Five Impairment Pain Short Term Goal (STG) Pt to report pain at worst 7/ 10 STG Duration 01/11/18 Custodial Goal (LTG) Pt to report pain at worst 4/ 10 LTG Duration 02/01/18 Four Impairment SLR Electronics Parts Sales Representative Goal (LTG) SLR to 50 degrees without increased pain LTG Duration 02/01/18 Three Impairment Joint Mobility [employer] Sales Representative Goal (LTG) P->A mobility of L1-5 to WNL LTG Duration 02/01/18 Two Impairment Muscle Tone [employer] Sales Representative Goal (LTG) Multifidi, QL, Glute Max, and Piriformis tone to Mild LTG Duration 02/01/18 One Impairment Palpation Tenderness [employer] Sales Representative Goal (LTG) Low back tenderness to palpation down to 1/5 - Complaint of pain LTG Duration 02/01/18 Assessment Summary Assessment Pt wondering today if he will need to schedule more than his initial eight visits, or if he will be all finished by then. Due to the chronic nature of pt's complaints, more time is likely needed. Physical Therapy Plan Frequency and Duration Frequency of Treatment 2x/Week Duration of Treatment 12 weeks Plan of Care Start Date 12/21/17 Plan of Care End Date 03/14/18 Therapeutic Interventions Therapeutic Interventions Aquatic Therapy Home Exercise Program Joint Mobilizations Manual Therapy Neuromuscular Re-education Patient/Caregiver Education Soft Tissue Mobilization Therapeutic Exercises Vestibular Rehabilitation Modalities Cold Pack/Ice Massage Electric Stimulation Hot Packs Ultrasound Next Visit Focus/Plan Next Note Type Treatment Note Next Visit Plan Manual therapy for decreasing spasm, modalities (US, E-stim) .
--- NOTE | 2018-01-18 14:32 | PT.OTN ---
Current Diagnoses Unspecified inflammatory spondylopathy, lumbar region (01/18/18) Physical Therapy Treatment Note PT-OP-A Visit Information Start: 12/21/17 16:51 Freq: Status: Active Protocol: Document 01/18/18 13:45 DCW (Rec: 01/18/18 14:32 DCW [id number]) Out-Patient Physical Therapy Visit Information Visit Information Visit Type Treatment Note Visit Start Time 13:45 Visit Stop Time 14:30 Total Visit Minutes 45 Visit Number 4 Number of TAPING FOREMAN Visits 0 Evaluation Information Evaluation Date 12/21/17 PT-OP-B Current Condition Start: 12/21/17 16:51 Freq: Status: Active Protocol: Document 12/21/17 13:45 DCW (Rec: 12/21/17 17:30 DCW [id number]) Current Condition History of Current Condition Onset Date 3 years Current Complaints Constant, severe low back pain History of Current Condition Pt is a 52 year old male presenting with a multi-year history of low back pain. He has been seen at this clinic multiple times for this same issue. Patient reports that he will receive an injection in his Lumbar/SI region, have a month or two of physical therapy, and then he will be able to function for about a year, before starting all over again. Pt currently reports a 7/10 pain bilaterally in his low back, pretty much right along where a weight-chopper gun operator's belt would sit. Pt reports his only comfortable position is sitting in a recliner. He reports his pain has impacted his life, and he can no longer walk comfortably, sleep, sit, stand, drive for any distance , or have any sort of social life. Prior Treatments and Tests Prior Physical Therapy 10/19/17: L4-5 and SI Translaminar injection Treatment Goals Patient/Caregiver Goals I just want you to do something for the muscle spasms. I'd like to be able to stand up straight, and resume a normal, productive life. Prior Functional Status Baseline Function- ADL's Independent Baseline Function- Mobility Independent Current Functional Impairments (Reported) Functional Limitations- ADL's Pain with standing or sitting for 10+ minutes Pain disturbs sleep Unable to drive 30+ minutes Functional Limitations- Mobility/Gait Pt reports he must drive from his house to the barn, which is ~100 yards away. 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 Personal Factors Other Personal Factors That May Effect Morbid Obesity, Neuropathy, Therapy/Recovery Phrenic nerve palsy, cervical spinal fusion PT-OP-C Subjective Start: 12/21/17 16:51 Freq: Status: Active Protocol: Document 01/18/18 13:45 DCW (Rec: 01/18/18 14:32 DCW [id number]) OP-PT Subjective Patient Comments Patient Comments Pt notes his back has missed coming in recently, but does admit it is feeling better. PT-OP-Q Treatments Start: 12/21/17 16:51 Freq: Status: Active Protocol: Document 01/18/18 13:45 DCW (Rec: 01/18/18 14:32 DCW [id number]) Therapeutic Exercises Supine Exercises 3 Supine Exercise Name Piriformis /c strap assist Resistance bilateral Reps/Minutes Gait belt 2 Supine Exercise Name Single leg [id number] /c strap assist Side bilateral Equipment Used Gait belt 1 Supine Exercise Name Hamstring stretch /c strap assist Side bilateral Equipment Used Gait belt Manual Therapy Treatment Soft Tissue Mobilization 4 Body Location Lumbar Paravetebral Musculature Mobilization Type Cross-Friction Instrument Assisted Rolling Strumming Sustained Pressure Trigger Point Release Intensity/Depth Moderate Body Position Prone 3 Body Location Piriformis Mobilization Type Myofascial Release 2 Body Location Quadratus Lumborum Mobilization Type Myofascial Release Strumming Sustained Pressure Trigger Point Release Intensity/Depth Deep Body Position Prone 1 Body Location Multifidi Mobilization Type Myofascial Release Strumming Sustained Pressure Trigger Point Release Intensity/Depth Moderate Body Position Prone Joint Mobilizations 1 Joint Lumbar 1-5 Direction P->A Grade III Body Position Prone PT-OP-R Modalities Start: 12/21/17 16:51 Freq: Status: Active Protocol: Document 01/18/18 13:45 DCW (Rec: 01/18/18 14:32 DCW [id number]) Ultrasound Therapy Treatment Right Lower Back Treatment Duration (minutes) 5 Patient Position Prone Coupling Medium Ultrasound Gel Frequency Setting (mHz) 1 Mode Setting Continuous Intensity Setting (w/cm2) 1.2 Left Lower Back Treatment Duration (minutes) 5 Patient Position Prone Coupling Medium Ultrasound Gel Frequency Setting (mHz) 1 Mode Setting Continuous Intensity Setting (w/cm2) 1.2 PT-OP-T Assessment and Plan Start: 12/21/17 16:51 Freq: Status: Active Protocol: Document 01/18/18 13:45 DCW (Rec: 01/18/18 14:32 DCW [id number]) Physical Therapy Assessment Impairments Impairments Activity Tolerance Balance Pain Posture ROM Soft Tissue Mobility Tone Goals Six Impairment Activity Tolerance Short Term Goal (STG) Pt to report ability to drive for 60 minutes with no increased pain STG Duration 01/11/18 Detention Goal (LTG) Pt to report ability to walk down to his barn from the house (100 yards) with no increased pain LTG Duration 02/01/18 Five Impairment Pain Short Term Goal (STG) Pt to report pain at worst 7/ 10 STG Duration 01/11/18 Detention Goal (LTG) Pt to report pain at worst 4/ 10 LTG Duration 02/01/18 Four Impairment SLR Detention Goal (LTG) SLR to 50 degrees without increased pain LTG Duration 02/01/18 Three Impairment Joint Mobility Watch Dial Stoner Goal (LTG) P->A mobility of L1-5 to WNL LTG Duration 02/01/18 Two Impairment Muscle Tone Watch Dial Stoner Goal (LTG) Multifidi, QL, Glute Max, and Piriformis tone to Mild LTG Duration 02/01/18 One Impairment Palpation Tenderness Watch Dial Stoner Goal (LTG) Low back tenderness to palpation down to 1/5 - Complaint of pain LTG Duration 02/01/18 Assessment Summary Assessment Pt improving with mobility and positioning, especially at the end of his sessions. Hopefully more consistent attendance will help to improve his long-term results. Physical Therapy Plan Frequency and Duration Frequency of Treatment 2x/Week Duration of Treatment 12 weeks Plan of Care Start Date 12/21/17 Plan of Care End Date 03/14/18 Therapeutic Interventions Therapeutic Interventions Aquatic Therapy Home Exercise Program Joint Mobilizations Manual Therapy Neuromuscular Re-education Patient/Caregiver Education Soft Tissue Mobilization Therapeutic Exercises Vestibular Rehabilitation Modalities Cold Pack/Ice Massage Electric Stimulation Hot Packs Ultrasound Next Visit Focus/Plan Next Note Type Treatment Note Next Visit Plan Manual therapy for decreasing spasm, modalities (US, E-stim) .
--- NOTE | 2018-02-05 16:01 | PT.OTN ---
Current Diagnoses Unspecified inflammatory spondylopathy, lumbar region (02/05/18) Physical Therapy Treatment Note PT-OP-A Visit Information Start: 12/21/17 16:51 Freq: Status: Active Protocol: Document 02/05/18 15:15 DCW (Rec: 02/05/18 16:00 DCW [id number]) Out-Patient Physical Therapy Visit Information Visit Information Visit Type Treatment Note Visit Start Time 15:15 Visit Stop Time 16:00 Total Visit Minutes 45 Visit Number 5 Number of GLASSWARE VERIFIER Visits 0 Evaluation Information Evaluation Date 12/21/17 PT-OP-B Current Condition Start: 12/21/17 16:51 Freq: Status: Active Protocol: Document 12/21/17 13:45 DCW (Rec: 12/21/17 17:30 DCW [id number]) Current Condition History of Current Condition Onset Date 3 years Current Complaints Constant, severe low back pain History of Current Condition Pt is a 52 year old male presenting with a multi-year history of low back pain. He has been seen at this clinic multiple times for this same issue. Patient reports that he will receive an injection in his Lumbar/SI region, have a month or two of physical therapy, and then he will be able to function for about a year, before starting all over again. Pt currently reports a 7/10 pain bilaterally in his low back, pretty much right along where a weight-cart pusher's belt would sit. Pt reports his only comfortable position is sitting in a recliner. He reports his pain has impacted his life, and he can no longer walk comfortably, sleep, sit, stand, drive for any distance , or have any sort of social life. Prior Treatments and Tests Prior Physical Therapy 10/19/17: L4-5 and SI Translaminar injection Treatment Goals Patient/Caregiver Goals I just want you to do something for the muscle spasms. I'd like to be able to stand up straight, and resume a normal, productive life. Prior Functional Status Baseline Function- ADL's Independent Baseline Function- Mobility Independent Current Functional Impairments (Reported) Functional Limitations- ADL's Pain with standing or sitting for 10+ minutes Pain disturbs sleep Unable to drive 30+ minutes Functional Limitations- Mobility/Gait Pt reports he must drive from his house to the barn, which is ~100 yards away. 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 Personal Factors Other Personal Factors That May Effect Morbid Obesity, Neuropathy, Therapy/Recovery Phrenic nerve palsy, cervical spinal fusion PT-OP-C Subjective Start: 12/21/17 16:51 Freq: Status: Active Protocol: Document 02/05/18 15:15 DCW (Rec: 02/05/18 16:00 DCW [id number]) OP-PT Subjective Patient Comments Patient Comments Pt reports he might be getting another injection next week. PT-OP-F Manual Assessment Start: 12/21/17 16:51 Freq: Status: Active Protocol: Document 12/21/17 13:45 DCW (Rec: 12/21/17 17:30 DCW [id number]) Manual Assessments Joint Mobility Assessment Joint Mobility Assessment P->A hypomobility and 3/5 - Wincing and Withdrawal tenderness in L1-L5 and bilateral SI joints PT-OP-J Posture/Palpation/Skin Start: 12/21/17 16:51 Freq: Status: Active Protocol: Document 12/21/17 13:45 DCW (Rec: 12/21/17 17:30 DCW [id number]) Palpation Assessment Location Four Palpation Location Gluteus Max Palpation Findings Soft Tissue Tightness Spasm Muscle Guarding Tenderness Palpation Details Severe Tone and Tenderness 3/5 - Wincing and Withdrawal Three Palpation Location Quadratus Lumborum Palpation Findings Soft Tissue Tightness Spasm Muscle Guarding Tenderness Palpation Details Severe Tone and Tenderness 3/5 - Wincing and Withdrawal Two Palpation Location Piriformis Palpation Findings Soft Tissue Tightness Spasm Muscle Guarding Tenderness Palpation Details Severe Tone and Tenderness 3/5 - Wincing and Withdrawal One Palpation Location Multifidi Palpation Findings Soft Tissue Tightness Spasm Muscle Guarding Tenderness Palpation Details Severe Tone and Tenderness 3/5 - Wincing and Withdrawal PT-OP-K Range of Motion Start: 12/21/17 16:51 Freq: Status: Active Protocol: Document 12/21/17 13:45 DCW (Rec: 12/21/17 17:30 DCW [id number]) Lumbar Spine Range of Motion Lumbar Spine Active Degrees Testing Position Standing Flexion 8 Extension 0 Comments Rotation and Lateral Flexion not tested secondary to pain PT-OP-L Special Tests Start: 12/21/17 16:51 Freq: Status: Active Protocol: Document 12/21/17 13:45 DCW (Rec: 12/21/17 17:30 DCW [id number]) Special Tests Lumbar Spine Special Tests Standing Flexion Test Results Lumbar spine unable to flex more than eight degrees Prone Knee Flexion Test Results Bilateral low back pain Straight Leg Raise Test Results Severe Bilateral pain at 35 degrees Prone Press Up Test Results Complaints of Pain PT-OP-Q Treatments Start: 12/21/17 16:51 Freq: Status: Active Protocol: Document 02/05/18 15:15 DCW (Rec: 02/05/18 16:00 DCW [id number]) Manual Therapy Treatment Soft Tissue Mobilization 4 Body Location Lumbar Paravetebral Musculature Mobilization Type Cross-Friction Instrument Assisted Rolling Strumming Sustained Pressure Trigger Point Release Intensity/Depth Moderate Body Position Prone 3 Body Location Piriformis Mobilization Type Myofascial Release 2 Body Location Quadratus Lumborum Mobilization Type Myofascial Release Strumming Sustained Pressure Trigger Point Release Intensity/Depth Deep Body Position Prone 1 Body Location Multifidi Mobilization Type Myofascial Release Strumming Sustained Pressure Trigger Point Release Intensity/Depth Moderate Body Position Prone Joint Mobilizations 1 Joint Lumbar 1-5 Direction P->A Grade III Body Position Prone PT-OP-R Modalities Start: 12/21/17 16:51 Freq: Status: Active Protocol: Document 02/05/18 15:15 DCW (Rec: 02/05/18 16:00 DCW [id number]) Ultrasound Therapy Treatment Right Lower Back Treatment Duration (minutes) 5 Patient Position Prone Coupling Medium Ultrasound Gel Frequency Setting (mHz) 1 Mode Setting Continuous Intensity Setting (w/cm2) 1.2 Left Lower Back Treatment Duration (minutes) 5 Patient Position Prone Coupling Medium Ultrasound Gel Frequency Setting (mHz) 1 Mode Setting Continuous Intensity Setting (w/cm2) 1.2 PT-OP-T Assessment and Plan Start: 12/21/17 16:51 Freq: Status: Active Protocol: Document 02/05/18 15:15 DCW (Rec: 02/05/18 16:00 DCW [id number]) Physical Therapy Assessment Impairments Impairments Activity Tolerance Balance Pain Posture ROM Soft Tissue Mobility Tone Goals Six Impairment Activity Tolerance Short Term Goal (STG) Pt to report ability to drive for 60 minutes with no increased pain STG Duration 01/11/18 Halfway Goal (LTG) Pt to report ability to walk down to his barn from the house (100 yards) with no increased pain LTG Duration 02/01/18 Five Impairment Pain Short Term Goal (STG) Pt to report pain at worst 7/ 10 STG Duration 01/11/18 Halfway Goal (LTG) Pt to report pain at worst 4/ 10 LTG Duration 02/01/18 Four Impairment SLR [employer] Lookout Goal (LTG) SLR to 50 degrees without increased pain LTG Duration 02/01/18 Three Impairment Joint Mobility Halfway Goal (LTG) P->A mobility of L1-5 to WNL LTG Duration 02/01/18 Two Impairment Muscle Tone [employer] Look[employer] Goal (LTG) Multifidi, QL, Glute Max, and Piriformis tone to Mild LTG Duration 02/01/18 One Impairment Palpation Tenderness Halfway Goal (LTG) Low back tenderness to palpation down to 1/5 - Complaint of pain LTG Duration 02/01/18 Assessment Summary Assessment Pt again responding well to manual therapy, shows improvement getting up from plinth and walking out vs coming in at start of session. Physical Therapy Plan Frequency and Duration Frequency of Treatment 2x/Week Duration of Treatment 12 weeks Plan of Care Start Date 12/21/17 Plan of Care End Date 03/14/18 Therapeutic Interventions Therapeutic Interventions Aquatic Therapy Home Exercise Program Joint Mobilizations Manual Therapy Neuromuscular Re-education Patient/Caregiver Education Soft Tissue Mobilization Therapeutic Exercises Vestibular Rehabilitation Modalities Cold Pack/Ice Massage Electric Stimulation Hot Packs Ultrasound Next Visit Focus/Plan Next Note Type Treatment Note Next Visit Plan Manual therapy for decreasing spasm, modalities (US, E-stim) .
--- NOTE | 2018-02-08 14:38 | PT.OTN ---
Current Diagnoses Unspecified inflammatory spondylopathy, lumbar region (02/08/18) Physical Therapy Treatment Note PT-OP-A Visit Information Start: 12/21/17 16:51 Freq: Status: Active Protocol: Document 02/08/18 13:45 DCW (Rec: 02/08/18 14:38 DCW [id number]) Out-Patient Physical Therapy Visit Information Visit Information Visit Type Treatment Note Visit Start Time 15:15 Visit Stop Time 16:00 Total Visit Minutes 45 Visit Number 6 Number of ORACLE DATABASE ARCHITECT Visits 0 Evaluation Information Evaluation Date 12/21/17 PT-OP-B Current Condition Start: 12/21/17 16:51 Freq: Status: Active Protocol: Document 12/21/17 13:45 DCW (Rec: 12/21/17 17:30 DCW [id number]) Current Condition History of Current Condition Onset Date 3 years Current Complaints Constant, severe low back pain History of Current Condition Pt is a 52 year old male presenting with a multi-year history of low back pain. He has been seen at this clinic multiple times for this same issue. Patient reports that he will receive an injection in his Lumbar/SI region, have a month or two of physical therapy, and then he will be able to function for about a year, before starting all over again. Pt currently reports a 7/10 pain bilaterally in his low back, pretty much right along where a weight-neurosurgery physician's belt would sit. Pt reports his only comfortable position is sitting in a recliner. He reports his pain has impacted his life, and he can no longer walk comfortably, sleep, sit, stand, drive for any distance , or have any sort of social life. Prior Treatments and Tests Prior Physical Therapy 10/19/17: L4-5 and SI Translaminar injection Treatment Goals Patient/Caregiver Goals I just want you to do something for the muscle spasms. I'd like to be able to stand up straight, and resume a normal, productive life. Prior Functional Status Baseline Function- ADL's Independent Baseline Function- Mobility Independent Current Functional Impairments (Reported) Functional Limitations- ADL's Pain with standing or sitting for 10+ minutes Pain disturbs sleep Unable to drive 30+ minutes Functional Limitations- Mobility/Gait Pt reports he must drive from his house to the barn, which is ~100 yards away. 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 Personal Factors Other Personal Factors That May Effect Morbid Obesity, Neuropathy, Therapy/Recovery Phrenic nerve palsy, cervical spinal fusion PT-OP-C Subjective Start: 12/21/17 16:51 Freq: Status: Active Protocol: Document 02/08/18 13:45 DCW (Rec: 02/08/18 14:38 DCW [id number]) OP-PT Subjective Patient Comments Patient Comments Pt reported he was doing well today until his tire blew on his way here, which increased his stress and caused increased pain through his low back. PT-OP-F Manual Assessment Start: 12/21/17 16:51 Freq: Status: Active Protocol: Document 12/21/17 13:45 DCW (Rec: 12/21/17 17:30 DCW [id number]) Manual Assessments Joint Mobility Assessment Joint Mobility Assessment P->A hypomobility and 3/5 - Wincing and Withdrawal tenderness in L1-L5 and bilateral SI joints PT-OP-J Posture/Palpation/Skin Start: 12/21/17 16:51 Freq: Status: Active Protocol: Document 12/21/17 13:45 DCW (Rec: 12/21/17 17:30 DCW [id number]) Palpation Assessment Location Four Palpation Location Gluteus Max Palpation Findings Soft Tissue Tightness Spasm Muscle Guarding Tenderness Palpation Details Severe Tone and Tenderness 3/5 - Wincing and Withdrawal Three Palpation Location Quadratus Lumborum Palpation Findings Soft Tissue Tightness Spasm Muscle Guarding Tenderness Palpation Details Severe Tone and Tenderness 3/5 - Wincing and Withdrawal Two Palpation Location Piriformis Palpation Findings Soft Tissue Tightness Spasm Muscle Guarding Tenderness Palpation Details Severe Tone and Tenderness 3/5 - Wincing and Withdrawal One Palpation Location Multifidi Palpation Findings Soft Tissue Tightness Spasm Muscle Guarding Tenderness Palpation Details Severe Tone and Tenderness 3/5 - Wincing and Withdrawal PT-OP-K Range of Motion Start: 12/21/17 16:51 Freq: Status: Active Protocol: Document 12/21/17 13:45 DCW (Rec: 12/21/17 17:30 DCW [id number]) Lumbar Spine Range of Motion Lumbar Spine Active Degrees Testing Position Standing Flexion 8 Extension 0 Comments Rotation and Lateral Flexion not tested secondary to pain PT-OP-L Special Tests Start: 12/21/17 16:51 Freq: Status: Active Protocol: Document 12/21/17 13:45 DCW (Rec: 12/21/17 17:30 DCW [id number]) Special Tests Lumbar Spine Special Tests Standing Flexion Test Results Lumbar spine unable to flex more than eight degrees Prone Knee Flexion Test Results Bilateral low back pain Straight Leg Raise Test Results Severe Bilateral pain at 35 degrees Prone Press Up Test Results Complaints of Pain PT-OP-Q Treatments Start: 12/21/17 16:51 Freq: Status: Active Protocol: Document 02/08/18 13:45 DCW (Rec: 02/08/18 14:38 DCW [id number]) Manual Therapy Treatment Soft Tissue Mobilization 4 Body Location Lumbar Paravetebral Musculature Mobilization Type Cross-Friction Instrument Assisted Rolling Strumming Sustained Pressure Trigger Point Release Intensity/Depth Moderate Body Position Prone 3 Body Location Piriformis Mobilization Type Myofascial Release 2 Body Location Quadratus Lumborum Mobilization Type Myofascial Release Strumming Sustained Pressure Trigger Point Release Intensity/Depth Deep Body Position Prone 1 Body Location Multifidi Mobilization Type Myofascial Release Strumming Sustained Pressure Trigger Point Release Intensity/Depth Moderate Body Position Prone Joint Mobilizations 1 Joint Lumbar 1-5 Direction P->A Grade III Body Position Prone PT-OP-R Modalities Start: 12/21/17 16:51 Freq: Status: Active Protocol: Document 02/08/18 13:45 DCW (Rec: 02/08/18 14:38 DCW [id number]) Ultrasound Therapy Treatment Right Lower Back Treatment Duration (minutes) 5 Patient Position Prone Coupling Medium Ultrasound Gel Frequency Setting (mHz) 1 Mode Setting Continuous Intensity Setting (w/cm2) 1.2 Left Lower Back Treatment Duration (minutes) 5 Patient Position Prone Coupling Medium Ultrasound Gel Frequency Setting (mHz) 1 Mode Setting Continuous Intensity Setting (w/cm2) 1.2 PT-OP-T Assessment and Plan Start: 12/21/17 16:51 Freq: Status: Active Protocol: Document 02/08/18 13:45 DCW (Rec: 02/08/18 14:38 DCW [id number]) Physical Therapy Assessment Impairments Impairments Activity Tolerance Balance Pain Posture ROM Soft Tissue Mobility Tone Goals Six Impairment Activity Tolerance Short Term Goal (STG) Pt to report ability to drive for 60 minutes with no increased pain STG Duration 01/11/18 Inventory Transcriber Goal (LTG) Pt to report ability to walk down to his barn from the house (100 yards) with no increased pain LTG Duration 02/01/18 Five Impairment Pain Short Term Goal (STG) Pt to report pain at worst 7/ 10 STG Duration 01/11/18 Inventory Transcriber Goal (LTG) Pt to report pain at worst 4/ 10 LTG Duration 02/01/18 Four Impairment SLR Assisted Goal (LTG) SLR to 50 degrees without increased pain LTG Duration 02/01/18 Three Impairment Joint Mobility Inventory Transcriber Goal (LTG) P->A mobility of L1-5 to WNL LTG Duration 02/01/18 Two Impairment Muscle Tone Assisted Goal (LTG) Multifidi, QL, Glute Max, and Piriformis tone to Mild LTG Duration 02/01/18 One Impairment Palpation Tenderness Inventory Transcriber Goal (LTG) Low back tenderness to palpation down to 1/5 - Complaint of pain LTG Duration 02/01/18 Assessment Summary Assessment Pt had a friend attend today's appointment, who as they were exiting the room following today's visit, reported that the pt had fallen earlier this week, resulting in bruising along his right side. Physical Therapy Plan Frequency and Duration Frequency of Treatment 2x/Week Duration of Treatment 12 weeks Plan of Care Start Date 12/21/17 Plan of Care End Date 03/14/18 Therapeutic Interventions Therapeutic Interventions Aquatic Therapy Home Exercise Program Joint Mobilizations Manual Therapy Neuromuscular Re-education Patient/Caregiver Education Soft Tissue Mobilization Therapeutic Exercises Vestibular Rehabilitation Modalities Cold Pack/Ice Massage Electric Stimulation Hot Packs Ultrasound Next Visit Focus/Plan Next Note Type Treatment Note Next Visit Plan Manual therapy for decreasing spasm, modalities (US, E-stim) .
--- NOTE | 2018-02-22 15:17 | PT.OTN ---
Current Diagnoses Unspecified inflammatory spondylopathy, lumbar region (02/22/18) Physical Therapy Treatment Note PT-OP-A Visit Information Start: 12/21/17 16:51 Freq: Status: Active Protocol: Document 02/22/18 14:30 DCW (Rec: 02/22/18 15:17 DCW [id number]) Out-Patient Physical Therapy Visit Information Visit Information Visit Type Treatment Note Visit Start Time 15:15 Visit Stop Time 16:00 Total Visit Minutes 45 Visit Number 7 Number of OPERATIONS INTERN Visits 0 Evaluation Information Evaluation Date 12/21/17 PT-OP-B Current Condition Start: 12/21/17 16:51 Freq: Status: Active Protocol: Document 12/21/17 13:45 DCW (Rec: 12/21/17 17:30 DCW [id number]) Current Condition History of Current Condition Onset Date 3 years Current Complaints Constant, severe low back pain History of Current Condition Pt is a 52 year old male presenting with a multi-year history of low back pain. He has been seen at this clinic multiple times for this same issue. Patient reports that he will receive an injection in his Lumbar/SI region, have a month or two of physical therapy, and then he will be able to function for about a year, before starting all over again. Pt currently reports a 7/10 pain bilaterally in his low back, pretty much right along where a weight-needleworker's belt would sit. Pt reports his only comfortable position is sitting in a recliner. He reports his pain has impacted his life, and he can no longer walk comfortably, sleep, sit, stand, drive for any distance , or have any sort of social life. Prior Treatments and Tests Prior Physical Therapy 10/19/17: L4-5 and SI Translaminar injection Treatment Goals Patient/Caregiver Goals I just want you to do something for the muscle spasms. I'd like to be able to stand up straight, and resume a normal, productive life. Prior Functional Status Baseline Function- ADL's Independent Baseline Function- Mobility Independent Current Functional Impairments (Reported) Functional Limitations- ADL's Pain with standing or sitting for 10+ minutes Pain disturbs sleep Unable to drive 30+ minutes Functional Limitations- Mobility/Gait Pt reports he must drive from his house to the barn, which is ~100 yards away. 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 Personal Factors Other Personal Factors That May Effect Morbid Obesity, Neuropathy, Therapy/Recovery Phrenic nerve palsy, cervical spinal fusion PT-OP-C Subjective Start: 12/21/17 16:51 Freq: Status: Active Protocol: Document 02/22/18 14:30 DCW (Rec: 02/22/18 15:17 DCW [id number]) OP-PT Subjective Patient Comments Patient Comments It's really starting to make a difference, I'm having a longer relief from the pain each time. PT-OP-F Manual Assessment Start: 12/21/17 16:51 Freq: Status: Active Protocol: Document 12/21/17 13:45 DCW (Rec: 12/21/17 17:30 DCW [id number]) Manual Assessments Joint Mobility Assessment Joint Mobility Assessment P->A hypomobility and 3/5 - Wincing and Withdrawal tenderness in L1-L5 and bilateral SI joints PT-OP-J Posture/Palpation/Skin Start: 12/21/17 16:51 Freq: Status: Active Protocol: Document 12/21/17 13:45 DCW (Rec: 12/21/17 17:30 DCW [id number]) Palpation Assessment Location Four Palpation Location Gluteus Max Palpation Findings Soft Tissue Tightness Spasm Muscle Guarding Tenderness Palpation Details Severe Tone and Tenderness 3/5 - Wincing and Withdrawal Three Palpation Location Quadratus Lumborum Palpation Findings Soft Tissue Tightness Spasm Muscle Guarding Tenderness Palpation Details Severe Tone and Tenderness 3/5 - Wincing and Withdrawal Two Palpation Location Piriformis Palpation Findings Soft Tissue Tightness Spasm Muscle Guarding Tenderness Palpation Details Severe Tone and Tenderness 3/5 - Wincing and Withdrawal One Palpation Location Multifidi Palpation Findings Soft Tissue Tightness Spasm Muscle Guarding Tenderness Palpation Details Severe Tone and Tenderness 3/5 - Wincing and Withdrawal PT-OP-K Range of Motion Start: 12/21/17 16:51 Freq: Status: Active Protocol: Document 12/21/17 13:45 DCW (Rec: 12/21/17 17:30 DCW [id number]) Lumbar Spine Range of Motion Lumbar Spine Active Degrees Testing Position Standing Flexion 8 Extension 0 Comments Rotation and Lateral Flexion not tested secondary to pain PT-OP-L Special Tests Start: 12/21/17 16:51 Freq: Status: Active Protocol: Document 12/21/17 13:45 DCW (Rec: 12/21/17 17:30 DCW [id number]) Special Tests Lumbar Spine Special Tests Standing Flexion Test Results Lumbar spine unable to flex more than eight degrees Prone Knee Flexion Test Results Bilateral low back pain Straight Leg Raise Test Results Severe Bilateral pain at 35 degrees Prone Press Up Test Results Complaints of Pain PT-OP-Q Treatments Start: 12/21/17 16:51 Freq: Status: Active Protocol: Document 02/22/18 14:30 DCW (Rec: 02/22/18 15:17 DCW [id number]) Manual Therapy Treatment Soft Tissue Mobilization 4 Body Location Lumbar Paravetebral Musculature Mobilization Type Cross-Friction Instrument Assisted Rolling Strumming Sustained Pressure Trigger Point Release Intensity/Depth Moderate Body Position Prone 3 Body Location Piriformis Mobilization Type Myofascial Release 2 Body Location Quadratus Lumborum Mobilization Type Myofascial Release Strumming Sustained Pressure Trigger Point Release Intensity/Depth Deep Body Position Prone 1 Body Location Multifidi Mobilization Type Myofascial Release Strumming Sustained Pressure Trigger Point Release Intensity/Depth Moderate Body Position Prone Joint Mobilizations 1 Joint Lumbar 1-5 Direction P->A Grade III Body Position Prone PT-OP-R Modalities Start: 12/21/17 16:51 Freq: Status: Active Protocol: Document 02/22/18 14:30 DCW (Rec: 02/22/18 15:17 DCW [id number]) Ultrasound Therapy Treatment Right Lower Back Treatment Duration (minutes) 5 Patient Position Prone Coupling Medium Ultrasound Gel Frequency Setting (mHz) 1 Mode Setting Continuous Intensity Setting (w/cm2) 1.2 Left Lower Back Treatment Duration (minutes) 5 Patient Position Prone Coupling Medium Ultrasound Gel Frequency Setting (mHz) 1 Mode Setting Continuous Intensity Setting (w/cm2) 1.2 PT-OP-T Assessment and Plan Start: 12/21/17 16:51 Freq: Status: Active Protocol: Document 02/22/18 14:30 DCW (Rec: 02/22/18 15:17 DCW [id number]) Physical Therapy Assessment Impairments Impairments Activity Tolerance Balance Pain Posture ROM Soft Tissue Mobility Tone Goals Six Impairment Activity Tolerance Short Term Goal (STG) Pt to report ability to drive for 60 minutes with no increased pain STG Duration 01/11/18 Logistics Planning Manager Goal (LTG) Pt to report ability to walk down to his barn from the house (100 yards) with no increased pain LTG Duration 02/01/18 Five Impairment Pain Short Term Goal (STG) Pt to report pain at worst 7/ 10 STG Duration 01/11/18 Logistics Planning Manager Goal (LTG) Pt to report pain at worst 4/ 10 LTG Duration 02/01/18 Four Impairment SLR Detention Goal (LTG) SLR to 50 degrees without increased pain LTG Duration 02/01/18 Three Impairment Joint Mobility Logistics Planning Manager Goal (LTG) P->A mobility of L1-5 to WNL LTG Duration 02/01/18 Two Impairment Muscle Tone Detention Goal (LTG) Multifidi, QL, Glute Max, and Piriformis tone to Mild LTG Duration 02/01/18 One Impairment Palpation Tenderness Logistics Planning Manager Goal (LTG) Low back tenderness to palpation down to 1/5 - Complaint of pain LTG Duration 02/01/18 Assessment Summary Assessment Pt doing well today, much less pain reaction to STM and joint mobilizations. Physical Therapy Plan Frequency and Duration Frequency of Treatment 2x/Week Duration of Treatment 12 weeks Plan of Care Start Date 12/21/17 Plan of Care End Date 03/14/18 Therapeutic Interventions Therapeutic Interventions Aquatic Therapy Home Exercise Program Joint Mobilizations Manual Therapy Neuromuscular Re-education Patient/Caregiver Education Soft Tissue Mobilization Therapeutic Exercises Vestibular Rehabilitation Modalities Cold Pack/Ice Massage Electric Stimulation Hot Packs Ultrasound Next Visit Focus/Plan Next Note Type Treatment Note Next Visit Plan Manual therapy for decreasing spasm, modalities (US, E-stim) .
--- NOTE | 2018-02-26 14:34 | PT.OTN ---
Current Diagnoses Unspecified inflammatory spondylopathy, lumbar region (02/26/18) Physical Therapy Treatment Note PT-OP-A Visit Information Start: 12/21/17 16:51 Freq: Status: Active Protocol: Document 02/26/18 13:45 DCW (Rec: 02/26/18 14:34 DCW [id number]) Out-Patient Physical Therapy Visit Information Visit Information Visit Type Treatment Note Visit Start Time 13:45 Visit Stop Time 14:30 Total Visit Minutes 45 Visit Number 8 Number of CONE MARKER Visits 0 Evaluation Information Evaluation Date 12/21/17 PT-OP-B Current Condition Start: 12/21/17 16:51 Freq: Status: Active Protocol: Document 12/21/17 13:45 DCW (Rec: 12/21/17 17:30 DCW [id number]) Current Condition History of Current Condition Onset Date 3 years Current Complaints Constant, severe low back pain History of Current Condition Pt is a 52 year old male presenting with a multi-year history of low back pain. He has been seen at this clinic multiple times for this same issue. Patient reports that he will receive an injection in his Lumbar/SI region, have a month or two of physical therapy, and then he will be able to function for about a year, before starting all over again. Pt currently reports a 7/10 pain bilaterally in his low back, pretty much right along where a weight-ad clerk's belt would sit. Pt reports his only comfortable position is sitting in a recliner. He reports his pain has impacted his life, and he can no longer walk comfortably, sleep, sit, stand, drive for any distance , or have any sort of social life. Prior Treatments and Tests Prior Physical Therapy 10/19/17: L4-5 and SI Translaminar injection Treatment Goals Patient/Caregiver Goals I just want you to do something for the muscle spasms. I'd like to be able to stand up straight, and resume a normal, productive life. Prior Functional Status Baseline Function- ADL's Independent Baseline Function- Mobility Independent Current Functional Impairments (Reported) Functional Limitations- ADL's Pain with standing or sitting for 10+ minutes Pain disturbs sleep Unable to drive 30+ minutes Functional Limitations- Mobility/Gait Pt reports he must drive from his house to the barn, which is ~100 yards away. 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 Personal Factors Other Personal Factors That May Effect Morbid Obesity, Neuropathy, Therapy/Recovery Phrenic nerve palsy, cervical spinal fusion PT-OP-C Subjective Start: 12/21/17 16:51 Freq: Status: Active Protocol: Document 02/26/18 13:45 DCW (Rec: 02/26/18 14:34 DCW [id number]) OP-PT Subjective Patient Comments Patient Comments Pt reports he had been feeling well following his last visit , but yesterday thinks he over did it, and is in a lot more pain today. PT-OP-F Manual Assessment Start: 12/21/17 16:51 Freq: Status: Active Protocol: Document 12/21/17 13:45 DCW (Rec: 12/21/17 17:30 DCW [id number]) Manual Assessments Joint Mobility Assessment Joint Mobility Assessment P->A hypomobility and 3/5 - Wincing and Withdrawal tenderness in L1-L5 and bilateral SI joints PT-OP-J Posture/Palpation/Skin Start: 12/21/17 16:51 Freq: Status: Active Protocol: Document 12/21/17 13:45 DCW (Rec: 12/21/17 17:30 DCW [id number]) Palpation Assessment Location Four Palpation Location Gluteus Max Palpation Findings Soft Tissue Tightness Spasm Muscle Guarding Tenderness Palpation Details Severe Tone and Tenderness 3/5 - Wincing and Withdrawal Three Palpation Location Quadratus Lumborum Palpation Findings Soft Tissue Tightness Spasm Muscle Guarding Tenderness Palpation Details Severe Tone and Tenderness 3/5 - Wincing and Withdrawal Two Palpation Location Piriformis Palpation Findings Soft Tissue Tightness Spasm Muscle Guarding Tenderness Palpation Details Severe Tone and Tenderness 3/5 - Wincing and Withdrawal One Palpation Location Multifidi Palpation Findings Soft Tissue Tightness Spasm Muscle Guarding Tenderness Palpation Details Severe Tone and Tenderness 3/5 - Wincing and Withdrawal PT-OP-K Range of Motion Start: 12/21/17 16:51 Freq: Status: Active Protocol: Document 12/21/17 13:45 DCW (Rec: 12/21/17 17:30 DCW [id number]) Lumbar Spine Range of Motion Lumbar Spine Active Degrees Testing Position Standing Flexion 8 Extension 0 Comments Rotation and Lateral Flexion not tested secondary to pain PT-OP-L Special Tests Start: 05/18/18 16:51 Freq: Status: Active Protocol: Document 12/21/17 13:45 DCW (Rec: 12/21/17 17:30 DCW [id number]) Special Tests Lumbar Spine Special Tests Standing Flexion Test Results Lumbar spine unable to flex more than eight degrees Prone Knee Flexion Test Results Bilateral low back pain Straight Leg Raise Test Results Severe Bilateral pain at 35 degrees Prone Press Up Test Results Complaints of Pain PT-OP-Q Treatments Start: 12/21/17 16:51 Freq: Status: Active Protocol: Document 02/26/18 13:45 DCW (Rec: 02/26/18 14:34 DCW [id number]) Manual Therapy Treatment Soft Tissue Mobilization 4 Body Location Lumbar Paravetebral Musculature Mobilization Type Cross-Friction Instrument Assisted Rolling Strumming Sustained Pressure Trigger Point Release Intensity/Depth Moderate Body Position Prone 3 Body Location Piriformis Mobilization Type Myofascial Release 2 Body Location Quadratus Lumborum Mobilization Type Myofascial Release Strumming Sustained Pressure Trigger Point Release Intensity/Depth Deep Body Position Prone 1 Body Location Multifidi Mobilization Type Myofascial Release Strumming Sustained Pressure Trigger Point Release Intensity/Depth Moderate Body Position Prone Joint Mobilizations 1 Joint Lumbar 1-5 Direction P->A Grade III Body Position Prone PT-OP-R Modalities Start: 12/21/17 16:51 Freq: Status: Active Protocol: Document 02/26/18 13:45 DCW (Rec: 02/26/18 14:34 DCW [id number]) Ultrasound Therapy Treatment Right Lower Back Treatment Duration (minutes) 5 Patient Position Prone Coupling Medium Ultrasound Gel Frequency Setting (mHz) 1 Mode Setting Continuous Intensity Setting (w/cm2) 1.2 Left Lower Back Treatment Duration (minutes) 5 Patient Position Prone Coupling Medium Ultrasound Gel Frequency Setting (mHz) 1 Mode Setting Continuous Intensity Setting (w/cm2) 1.2 PT-OP-T Assessment and Plan Start: 12/21/17 16:51 Freq: Status: Active Protocol: Document 02/26/18 13:45 DCW (Rec: 02/26/18 14:34 DCW [id number]) Physical Therapy Assessment Impairments Impairments Activity Tolerance Balance Pain Posture ROM Soft Tissue Mobility Tone Goals Six Impairment Activity Tolerance Short Term Goal (STG) Pt to report ability to drive for 60 minutes with no increased pain STG Duration 01/11/18 Medical Clinic Manager Goal (LTG) Pt to report ability to walk down to his barn from the house (100 yards) with no increased pain LTG Duration 02/01/18 Five Impairment Pain Short Term Goal (STG) Pt to report pain at worst 7/ 10 STG Duration 01/11/18 Medical Clinic Manager Goal (LTG) Pt to report pain at worst 4/ 10 LTG Duration 02/01/18 Four Impairment SLR Retirement Goal (LTG) SLR to 50 degrees without increased pain LTG Duration 02/01/18 Three Impairment Joint Mobility Medical Clinic Manager Goal (LTG) P->A mobility of L1-5 to WNL LTG Duration 02/01/18 Two Impairment Muscle Tone Retirement Goal (LTG) Multifidi, QL, Glute Max, and Piriformis tone to Mild LTG Duration 02/01/18 One Impairment Palpation Tenderness Medical Clinic Manager Goal (LTG) Low back tenderness to palpation down to 1/5 - Complaint of pain LTG Duration 02/01/18 Assessment Summary Assessment Pt displaying substantially increased pain today, especially along his left lateral QL. Much more tone throughout Musculature vs last week. Physical Therapy Plan Frequency and Duration Frequency of Treatment 2x/Week Duration of Treatment 12 weeks Plan of Care Start Date 12/21/17 Plan of Care End Date 03/14/18 Therapeutic Interventions Therapeutic Interventions Aquatic Therapy Home Exercise Program Joint Mobilizations Manual Therapy Neuromuscular Re-education Patient/Caregiver Education Soft Tissue Mobilization Therapeutic Exercises Vestibular Rehabilitation Modalities Cold Pack/Ice Massage Electric Stimulation Hot Packs Ultrasound Next Visit Focus/Plan Next Note Type Treatment Note Next Visit Plan Manual therapy for decreasing spasm, modalities (US, E-stim) .
--- NOTE | 2018-03-01 16:47 | PT.OTN ---
Current Diagnoses Unspecified inflammatory spondylopathy, lumbar region (03/01/18) Physical Therapy Treatment Note PT-OP-A Visit Information Start: 12/21/17 16:51 Freq: Status: Active Protocol: Document 03/01/18 13:45 DCW (Rec: 03/01/18 16:47 DCW [id number]) Out-Patient Physical Therapy Visit Information Visit Information Visit Type Treatment Note Visit Start Time 13:45 Visit Stop Time 14:30 Total Visit Minutes 45 Visit Number 8 Number of VETERINARY BACTERIOLOGIST Visits 0 Evaluation Information Evaluation Date 12/21/17 PT-OP-B Current Condition Start: 12/21/17 16:51 Freq: Status: Active Protocol: Document 12/21/17 13:45 DCW (Rec: 12/21/17 17:30 DCW [id number]) Current Condition History of Current Condition Onset Date 3 years Current Complaints Constant, severe low back pain History of Current Condition Pt is a 52 year old male presenting with a multi-year history of low back pain. He has been seen at this clinic multiple times for this same issue. Patient reports that he will receive an injection in his Lumbar/SI region, have a month or two of physical therapy, and then he will be able to function for about a year, before starting all over again. Pt currently reports a 7/10 pain bilaterally in his low back, pretty much right along where a weight-national stormwater leader's belt would sit. Pt reports his only comfortable position is sitting in a recliner. He reports his pain has impacted his life, and he can no longer walk comfortably, sleep, sit, stand, drive for any distance , or have any sort of social life. Prior Treatments and Tests Prior Physical Therapy 10/19/17: L4-5 and SI Translaminar injection Treatment Goals Patient/Caregiver Goals I just want you to do something for the muscle spasms. I'd like to be able to stand up straight, and resume a normal, productive life. Prior Functional Status Baseline Function- ADL's Independent Baseline Function- Mobility Independent Current Functional Impairments (Reported) Functional Limitations- ADL's Pain with standing or sitting for 10+ minutes Pain disturbs sleep Unable to drive 30+ minutes Functional Limitations- Mobility/Gait Pt reports he must drive from his house to the barn, which is ~100 yards away. 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 Personal Factors Other Personal Factors That May Effect Morbid Obesity, Neuropathy, Therapy/Recovery Phrenic nerve palsy, cervical spinal fusion PT-OP-C Subjective Start: 12/21/17 16:51 Freq: Status: Active Protocol: Document 03/01/18 13:45 DCW (Rec: 03/01/18 16:47 DCW [id number]) OP-PT Subjective Patient Comments Patient Comments Pt notes that he is better than he was on Sunday, but it took a day or two to get over it. PT-OP-F Manual Assessment Start: 12/21/17 16:51 Freq: Status: Active Protocol: Document 12/21/17 13:45 DCW (Rec: 12/21/17 17:30 DCW [id number]) Manual Assessments Joint Mobility Assessment Joint Mobility Assessment P->A hypomobility and 3/5 - Wincing and Withdrawal tenderness in L1-L5 and bilateral SI joints PT-OP-J Posture/Palpation/Skin Start: 12/21/17 16:51 Freq: Status: Active Protocol: Document 12/21/17 13:45 DCW (Rec: 12/21/17 17:30 DCW [id number]) Palpation Assessment Location Four Palpation Location Gluteus Max Palpation Findings Soft Tissue Tightness Spasm Muscle Guarding Tenderness Palpation Details Severe Tone and Tenderness 3/5 - Wincing and Withdrawal Three Palpation Location Quadratus Lumborum Palpation Findings Soft Tissue Tightness Spasm Muscle Guarding Tenderness Palpation Details Severe Tone and Tenderness 3/5 - Wincing and Withdrawal Two Palpation Location Piriformis Palpation Findings Soft Tissue Tightness Spasm Muscle Guarding Tenderness Palpation Details Severe Tone and Tenderness 3/5 - Wincing and Withdrawal One Palpation Location Multifidi Palpation Findings Soft Tissue Tightness Spasm Muscle Guarding Tenderness Palpation Details Severe Tone and Tenderness 3/5 - Wincing and Withdrawal PT-OP-K Range of Motion Start: 12/21/17 16:51 Freq: Status: Active Protocol: Document 12/21/17 13:45 DCW (Rec: 12/21/17 17:30 DCW [id number]) Lumbar Spine Range of Motion Lumbar Spine Active Degrees Testing Position Standing Flexion 8 Extension 0 Comments Rotation and Lateral Flexion not tested secondary to pain PT-OP-L Special Tests Start: 12/21/17 16:51 Freq: Status: Active Protocol: Document 12/21/17 13:45 DCW (Rec: 12/21/17 17:30 DCW [id number]) Special Tests Lumbar Spine Special Tests Standing Flexion Test Results Lumbar spine unable to flex more than eight degrees Prone Knee Flexion Test Results Bilateral low back pain Straight Leg Raise Test Results Severe Bilateral pain at 35 degrees Prone Press Up Test Results Complaints of Pain PT-OP-Q Treatments Start: 12/21/17 16:51 Freq: Status: Active Protocol: Document 03/01/18 13:45 DCW (Rec: 03/01/18 16:47 DCW [id number]) Manual Therapy Treatment Soft Tissue Mobilization 4 Body Location Lumbar Paravetebral Musculature Mobilization Type Cross-Friction Instrument Assisted Rolling Strumming Sustained Pressure Trigger Point Release Intensity/Depth Moderate Body Position Prone 3 Body Location Piriformis Mobilization Type Myofascial Release 2 Body Location Quadratus Lumborum Mobilization Type Myofascial Release Strumming Sustained Pressure Trigger Point Release Intensity/Depth Deep Body Position Prone 1 Body Location Multifidi Mobilization Type Myofascial Release Strumming Sustained Pressure Trigger Point Release Intensity/Depth Moderate Body Position Prone Joint Mobilizations 1 Joint Lumbar 1-5 Direction P->A Grade III Body Position Prone PT-OP-R Modalities Start: 12/21/17 16:51 Freq: Status: Active Protocol: Document 03/01/18 13:45 DCW (Rec: 03/01/18 16:47 DCW [id number]) Ultrasound Therapy Treatment Right Lower Back Treatment Duration (minutes) 5 Patient Position Prone Coupling Medium Ultrasound Gel Frequency Setting (mHz) 1 Mode Setting Continuous Intensity Setting (w/cm2) 1.2 Left Lower Back Treatment Duration (minutes) 5 Patient Position Prone Coupling Medium Ultrasound Gel Frequency Setting (mHz) 1 Mode Setting Continuous Intensity Setting (w/cm2) 1.2 PT-OP-T Assessment and Plan Start: 12/21/17 16:51 Freq: Status: Active Protocol: Document 03/01/18 13:45 DCW (Rec: 03/01/18 16:47 DCW [id number]) Physical Therapy Assessment Impairments Impairments Activity Tolerance Balance Pain Posture ROM Soft Tissue Mobility Tone Goals Six Impairment Activity Tolerance Short Term Goal (STG) Pt to report ability to drive for 60 minutes with no increased pain STG Duration 01/11/18 Nursing Home Goal (LTG) Pt to report ability to walk down to his barn from the house (100 yards) with no increased pain LTG Duration 02/01/18 Five Impairment Pain Short Term Goal (STG) Pt to report pain at worst 7/ 10 STG Duration 01/11/18 Special Education Educational Assistant Goal (LTG) Pt to report pain at worst 4/ 10 LTG Duration 02/01/18 Four Impairment SLR Nursing Home Goal (LTG) SLR to 50 degrees without increased pain LTG Duration 02/01/18 Three Impairment Joint Mobility Special Education Educational Assistant Goal (LTG) P->A mobility of L1-5 to WNL LTG Duration 02/01/18 Two Impairment Muscle Tone Nursing Home Goal (LTG) Multifidi, QL, Glute Max, and Piriformis tone to Mild LTG Duration 02/01/18 One Impairment Palpation Tenderness Nursing Home Goal (LTG) Low back tenderness to palpation down to 1/5 - Complaint of pain LTG Duration 02/01/18 Assessment Summary Assessment Pt's right side was much better today, however he still had increased pain along his left QL. Additionally, pt was very tender up along his lower three left ribs posteriorly, and even had a positive tuning fork test, which may indicate a stress fracture. Pt is unsure how this may have happened, and although he does admit to a few falls recently , he cannot recall ever hitting his left ribs. Therapist recommended him scheduling an appointment with his physician, but pt reported he likely would not get it seen, since they don't really do anything for fractured ribs anyway. Physical Therapy Plan Frequency and Duration Frequency of Treatment 2x/Week Duration of Treatment 12 weeks Plan of Care Start Date 12/21/17 Plan of Care End Date 03/14/18 Therapeutic Interventions Therapeutic Interventions Aquatic Therapy Home Exercise Program Joint Mobilizations Manual Therapy Neuromuscular Re-education Patient/Caregiver Education Soft Tissue Mobilization Therapeutic Exercises Vestibular Rehabilitation Modalities Cold Pack/Ice Massage Electric Stimulation Hot Packs Ultrasound Next Visit Focus/Plan Next Note Type Treatment Note Next Visit Plan Manual therapy for decreasing spasm, modalities (US, E-stim) .
--- NOTE | 2018-03-27 15:18 | PT.OTN ---
Current Diagnoses Unspecified inflammatory spondylopathy, lumbar region (03/27/18) Physical Therapy Treatment Note PT-OP-A Visit Information Start: 12/21/17 16:51 Freq: Status: Active Protocol: Document 03/27/18 14:30 DCW (Rec: 03/27/18 15:18 DCW [id number]) Out-Patient Physical Therapy Visit Information Visit Information Visit Type Progress Note Visit Start Time 14:30 Visit Stop Time 15:15 Total Visit Minutes 45 Visit Number 10 Number of CLINCHING MACHINE OPERATOR Visits 0 Evaluation Information Evaluation Date 12/21/17 PT-OP-B Current Condition Start: 12/21/17 16:51 Freq: Status: Active Protocol: Document 03/27/18 14:30 DCW (Rec: 03/27/18 14:43 DCW [id number]) Current Condition Current Functional Impairments (Reported) Functional Limitations- ADL's Pain with standing for 10+ minutes Pain with sitting 30+ minutes Pain disturbs sleep Unable to drive 30+ minutes Functional Limitations- Mobility/Gait Pt reports he must drive from his house to the barn, which is ~100 yards away. 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 Personal Factors Other Personal Factors That May Effect Morbid Obesity, Neuropathy, Therapy/Recovery Phrenic nerve palsy, cervical spinal fusion PT-OP-C Subjective Start: 12/21/17 16:51 Freq: Status: Active Protocol: Document 03/27/18 14:30 DCW (Rec: 03/27/18 15:18 DCW [id number]) OP-PT Subjective Patient Comments Patient Comments Pt reports that following complaints of pain around his ribs at his last PT session, he had an x-ray, which revealed a hairline fracture. PT-OP-F Manual Assessment Start: 12/21/17 16:51 Freq: Status: Active Protocol: Document 03/27/18 14:30 DCW (Rec: 03/27/18 14:43 DCW [id number]) Manual Assessments Joint Mobility Assessment Joint Mobility Assessment P->A hypomobility and 3/5 - Wincing and Withdrawal tenderness in L1-L5 and bilateral SI joints PT-OP-J Posture/Palpation/Skin Start: 12/21/17 16:51 Freq: Status: Active Protocol: Document 03/27/18 14:30 DCW (Rec: 03/27/18 14:43 DCW [id number]) Palpation Assessment Location Four Palpation Location Gluteus Max Palpation Findings Soft Tissue Tightness Spasm Muscle Guarding Tenderness Palpation Details Severe Tone and Tenderness 3/5 - Wincing and Withdrawal Three Palpation Location Quadratus Lumborum Palpation Findings Soft Tissue Tightness Spasm Muscle Guarding Tenderness Palpation Details Severe Tone and Tenderness 3/5 - Wincing and Withdrawal Two Palpation Location Piriformis Palpation Findings Soft Tissue Tightness Spasm Muscle Guarding Tenderness Palpation Details Severe Tone and Tenderness 3/5 - Wincing and Withdrawal One Palpation Location Multifidi Palpation Findings Soft Tissue Tightness Spasm Muscle Guarding Tenderness Palpation Details Severe Tone and Tenderness 3/5 - Wincing and Withdrawal PT-OP-K Range of Motion Start: 12/21/17 16:51 Freq: Status: Active Protocol: Document 03/27/18 14:30 DCW (Rec: 03/27/18 14:43 DCW [id number]) Lumbar Spine Range of Motion Lumbar Spine Active Degrees Testing Position Standing Flexion 8 Extension 0 Comments Rotation and Lateral Flexion not tested secondary to pain PT-OP-L Special Tests Start: 12/21/17 16:51 Freq: Status: Active Protocol: Document 03/27/18 14:30 DCW (Rec: 03/27/18 14:43 DCW [id number]) Special Tests Lumbar Spine Special Tests Standing Flexion Test Results Lumbar spine unable to flex more than eight degrees Prone Knee Flexion Test Results Bilateral low back pain Straight Leg Raise Test Results Severe Bilateral pain at 35 degrees Prone Press Up Test Results Complaints of Pain PT-OP-Q Treatments Start: 12/21/17 16:51 Freq: Status: Active Protocol: Document 03/27/18 14:30 DCW (Rec: 03/27/18 15:18 DCW [id number]) Manual Therapy Treatment Soft Tissue Mobilization 4 Body Location Lumbar Paravetebral Musculature Mobilization Type Cross-Friction Instrument Assisted Rolling Strumming Sustained Pressure Trigger Point Release Intensity/Depth Moderate Body Position Prone 3 Body Location Piriformis Mobilization Type Myofascial Release 2 Body Location Quadratus Lumborum Mobilization Type Myofascial Release Strumming Sustained Pressure Trigger Point Release Intensity/Depth Deep Body Position Prone 1 Body Location Multifidi Mobilization Type Myofascial Release Strumming Sustained Pressure Trigger Point Release Intensity/Depth Moderate Body Position Prone Joint Mobilizations 1 Joint Lumbar 1-5 Direction P->A Grade III Body Position Prone PT-OP-R Modalities Start: 12/21/17 16:51 Freq: Status: Active Protocol: Document 03/27/18 14:30 DCW (Rec: 03/27/18 15:18 DCW [id number]) Ultrasound Therapy Treatment Right Lower Back Treatment Duration (minutes) 5 Patient Position Prone Coupling Medium Ultrasound Gel Frequency Setting (mHz) 1 Mode Setting Continuous Intensity Setting (w/cm2) 1.2 Left Lower Back Treatment Duration (minutes) 5 Patient Position Prone Coupling Medium Ultrasound Gel Frequency Setting (mHz) 1 Mode Setting Continuous Intensity Setting (w/cm2) 1.2 PT-OP-T Assessment and Plan Start: 12/21/17 16:51 Freq: Status: Active Protocol: Document 03/27/18 14:30 DCW (Rec: 03/27/18 15:18 DCW [id number]) Physical Therapy Assessment Impairments Impairments Activity Tolerance Balance Pain Posture ROM Soft Tissue Mobility Tone Goals Six Impairment Activity Tolerance Short Term Goal (STG) Pt to report ability to drive for 60 minutes with no increased pain STG Duration 01/11/18 Rug Setter [place] Goal (LTG) Pt to report ability to walk down to his barn from the house (100 yards) with no increased pain LTG Duration 02/01/18 Five Impairment Pain Short Term Goal (STG) Pt to report pain at worst 7/ 10 STG Duration 01/11/18 Rug Setter [place] Goal (LTG) Pt to report pain at worst 4/ 10 LTG Duration 02/01/18 Four Impairment SLR Skilled Nursing Goal (LTG) SLR to 50 degrees without increased pain LTG Duration 02/01/18 Three Impairment Joint Mobility Rug Setter [place] Goal (LTG) P->A mobility of L1-5 to WNL LTG Duration 02/01/18 Two Impairment Muscle Tone Rug Setter [place] Goal (LTG) Multifidi, QL, Glute Max, and Piriformis tone to Mild LTG Duration 02/01/18 One Impairment Palpation Tenderness Rug Setter [place] Goal (LTG) Low back tenderness to palpation down to 1/5 - Complaint of pain LTG Duration 02/01/18 Assessment Summary Assessment Pt presented today with some increased tone following a 3.5 week absence from skilled therapy. Pt responding well to manual therapy, would benefit from continued therapy. Physical Therapy Plan Frequency and Duration Frequency of Treatment 2x/Week Duration of Treatment 12 weeks Plan of Care Start Date 03/27/18 Plan of Care End Date 06/19/18 Therapeutic Interventions Therapeutic Interventions Aquatic Therapy Home Exercise Program Joint Mobilizations Manual Therapy Neuromuscular Re-education Patient/Caregiver Education Soft Tissue Mobilization Therapeutic Exercises Vestibular Rehabilitation Modalities Cold Pack/Ice Massage Electric Stimulation Hot Packs Ultrasound Next Visit Focus/Plan Next Note Type Treatment Note Next Visit Plan Manual therapy for decreasing spasm, modalities (US, E-stim) .
--- NOTE | 2018-03-27 15:18 | PT.OPPOC ---
Current Diagnoses Unspecified inflammatory spondylopathy, lumbar region (03/27/18) Provider Visit Care Team Role Provider Type Jhon Taylor MD Family Provider Physician Primary Care Provider Specialty: Internal Medicine Address: [address] [place] [address], [id number] Email: Hay Wagner DO Attending Provider Physician Specialty: Physiatry Pain Management Address: [address] [place] [address], [id number] Email: Plan Of Care PT-OP-T Assessment and Plan Start: 12/21/17 16:51 Freq: Status: Active Protocol: Document 03/27/18 14:30 DCW (Rec: 03/27/18 15:18 DCW [id number]) Physical Therapy Assessment Impairments Impairments Activity Tolerance Balance Pain Posture ROM Soft Tissue Mobility Tone Goals Six Impairment Activity Tolerance Short Term Goal (STG) Pt to report ability to drive for 60 minutes with no increased pain STG Duration 01/11/18 Residential Goal (LTG) Pt to report ability to walk down to his barn from the house (100 yards) with no increased pain LTG Duration 02/01/18 Five Impairment Pain Short Term Goal (STG) Pt to report pain at worst 7/ 10 STG Duration 01/11/18 Propeller Driven Airplane Mechanic Goal (LTG) Pt to report pain at worst 4/ 10 LTG Duration 02/01/18 Four Impairment SLR Propeller Driven Airplane Mechanic Goal (LTG) SLR to 50 degrees without increased pain LTG Duration 02/01/18 Three Impairment Joint Mobility Propeller Driven Airplane Mechanic Goal (LTG) P->A mobility of L1-5 to WNL LTG Duration 02/01/18 Two Impairment Muscle Tone Residential Goal (LTG) Multifidi, QL, Glute Max, and Piriformis tone to Mild LTG Duration 02/01/18 One Impairment Palpation Tenderness Residential Goal (LTG) Low back tenderness to palpation down to 1/5 - Complaint of pain LTG Duration 02/01/18 Assessment Summary Assessment Pt presented today with some increased tone following a 3.5 week absence from skilled therapy. Pt responding well to manual therapy, would benefit from continued therapy. Physical Therapy Plan Frequency and Duration Frequency of Treatment 2x/Week Duration of Treatment 12 weeks Plan of Care Start Date 03/27/18 Plan of Care End Date 06/19/18 Therapeutic Interventions Therapeutic Interventions Aquatic Therapy Home Exercise Program Joint Mobilizations Manual Therapy Neuromuscular Re-education Patient/Caregiver Education Soft Tissue Mobilization Therapeutic Exercises Vestibular Rehabilitation Modalities Cold Pack/Ice Massage Electric Stimulation Hot Packs Ultrasound Next Visit Focus/Plan Next Note Type Treatment Note Next Visit Plan Manual therapy for decreasing spasm, modalities (US, E-stim) . Plan of Care Dates Plan of Care Start Date 03/27/18 Plan of Care End Date 06/19/18 Please Sign and Return: I have reviewed this Plan of Care and certify that the skilled therapy services above are required to meet the patient?s needs. Physician Signature Date Printed Name and Credentials Clinical Instructor Signature Printed Name and Credentials
--- NOTE | 2018-04-02 15:30 | PT.OTN ---
Current Diagnoses Unspecified inflammatory spondylopathy, lumbar region (04/02/18) Physical Therapy Treatment Note PT-OP-A Visit Information Start: 12/21/17 16:51 Freq: Status: Active Protocol: Document 04/02/18 14:30 DCW (Rec: 04/02/18 15:30 DCW [id number]) Out-Patient Physical Therapy Visit Information Visit Information Visit Type Treatment Note Visit Start Time 14:30 Visit Stop Time 15:15 Total Visit Minutes 45 Visit Number 11 Number of MAKE READY MECHANIC Visits 0 Evaluation Information Evaluation Date 12/21/17 PT-OP-B Current Condition Start: 12/21/17 16:51 Freq: Status: Active Protocol: Document 03/27/18 14:30 DCW (Rec: 03/27/18 14:43 DCW [id number]) Current Condition Current Functional Impairments (Reported) Functional Limitations- ADL's Pain with standing for 10+ minutes Pain with sitting 30+ minutes Pain disturbs sleep Unable to drive 30+ minutes Functional Limitations- Mobility/Gait Pt reports he must drive from his house to the barn, which is ~100 yards away. 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 Personal Factors Other Personal Factors That May Effect Morbid Obesity, Neuropathy, Therapy/Recovery Phrenic nerve palsy, cervical spinal fusion PT-OP-C Subjective Start: 12/21/17 16:51 Freq: Status: Active Protocol: Document 04/02/18 14:30 DCW (Rec: 04/02/18 15:30 DCW [id number]) OP-PT Subjective Patient Comments Patient Comments I was doing pretty well until about two hours ago when I felt something start to pull. PT-OP-F Manual Assessment Start: 12/21/17 16:51 Freq: Status: Active Protocol: Document 03/27/18 14:30 DCW (Rec: 03/27/18 14:43 DCW [id number]) Manual Assessments Joint Mobility Assessment Joint Mobility Assessment P->A hypomobility and 3/5 - Wincing and Withdrawal tenderness in L1-L5 and bilateral SI joints PT-OP-J Posture/Palpation/Skin Start: 12/21/17 16:51 Freq: Status: Active Protocol: Document 03/27/18 14:30 DCW (Rec: 03/27/18 14:43 DCW [id number]) Palpation Assessment Location Four Palpation Location Gluteus Max Palpation Findings Soft Tissue Tightness Spasm Muscle Guarding Tenderness Palpation Details Severe Tone and Tenderness 3/5 - Wincing and Withdrawal Three Palpation Location Quadratus Lumborum Palpation Findings Soft Tissue Tightness Spasm Muscle Guarding Tenderness Palpation Details Severe Tone and Tenderness 3/5 - Wincing and Withdrawal Two Palpation Location Piriformis Palpation Findings Soft Tissue Tightness Spasm Muscle Guarding Tenderness Palpation Details Severe Tone and Tenderness 3/5 - Wincing and Withdrawal One Palpation Location Multifidi Palpation Findings Soft Tissue Tightness Spasm Muscle Guarding Tenderness Palpation Details Severe Tone and Tenderness 3/5 - Wincing and Withdrawal PT-OP-K Range of Motion Start: 12/21/17 16:51 Freq: Status: Active Protocol: Document 03/27/18 14:30 DCW (Rec: 03/27/18 14:43 DCW [id number]) Lumbar Spine Range of Motion Lumbar Spine Active Degrees Testing Position Standing Flexion 8 Extension 0 Comments Rotation and Lateral Flexion not tested secondary to pain PT-OP-L Special Tests Start: 12/21/17 16:51 Freq: Status: Active Protocol: Document 03/27/18 14:30 DCW (Rec: 03/27/18 14:43 DCW [id number]) Special Tests Lumbar Spine Special Tests Standing Flexion Test Results Lumbar spine unable to flex more than eight degrees Prone Knee Flexion Test Results Bilateral low back pain Straight Leg Raise Test Results Severe Bilateral pain at 35 degrees Prone Press Up Test Results Complaints of Pain PT-OP-Q Treatments Start: 12/21/17 16:51 Freq: Status: Active Protocol: Document 04/02/18 14:30 DCW (Rec: 04/02/18 15:30 DCW [id number]) Manual Therapy Treatment Soft Tissue Mobilization 4 Body Location Lumbar Paravetebral Musculature Mobilization Type Cross-Friction Instrument Assisted Rolling Strumming Sustained Pressure Trigger Point Release Intensity/Depth Moderate Body Position Prone 3 Body Location Piriformis Mobilization Type Myofascial Release 2 Body Location Quadratus Lumborum Mobilization Type Myofascial Release Strumming Sustained Pressure Trigger Point Release Intensity/Depth Deep Body Position Prone 1 Body Location Multifidi Mobilization Type Myofascial Release Strumming Sustained Pressure Trigger Point Release Intensity/Depth Moderate Body Position Prone Joint Mobilizations 1 Joint Lumbar 1-5 Direction P->A Grade III Body Position Prone PT-OP-R Modalities Start: 12/21/17 16:51 Freq: Status: Active Protocol: Document 04/02/18 14:30 DCW (Rec: 04/02/18 15:30 DCW [id number]) Ultrasound Therapy Treatment Right Lower Back Treatment Duration (minutes) 5 Patient Position Prone Coupling Medium Ultrasound Gel Frequency Setting (mHz) 1 Mode Setting Continuous Intensity Setting (w/cm2) 1.2 Left Lower Back Treatment Duration (minutes) 5 Patient Position Prone Coupling Medium Ultrasound Gel Frequency Setting (mHz) 1 Mode Setting Continuous Intensity Setting (w/cm2) 1.2 PT-OP-T Assessment and Plan Start: 12/21/17 16:51 Freq: Status: Active Protocol: Document 04/02/18 14:30 DCW (Rec: 04/02/18 15:30 DCW [id number]) Physical Therapy Assessment Impairments Impairments Activity Tolerance Balance Pain Posture ROM Soft Tissue Mobility Tone Goals Six Impairment Activity Tolerance Short Term Goal (STG) Pt to report ability to drive for 60 minutes with no increased pain STG Duration 04/27/18 Custodial Goal (LTG) Pt to report ability to walk down to his barn from the house (100 yards) with no increased pain LTG Duration 05/27/18 Five Impairment Pain Short Term Goal (STG) Pt to report pain at worst 7/ 10 STG Duration 04/27/18 Customer Management Specialist Goal (LTG) Pt to report pain at worst 4/ 10 LTG Duration 05/27/18 Four Impairment SLR Customer Management Specialist Goal (LTG) SLR to 50 degrees without increased pain LTG Duration 05/27/18 Three Impairment Joint Mobility Customer Management Specialist Goal (LTG) P->A mobility of L1-5 to WNL LTG Duration 05/27/18 Two Impairment Muscle Tone Custodial Goal (LTG) Multifidi, QL, Glute Max, and Piriformis tone to Mild LTG Duration 05/27/18 One Impairment Palpation Tenderness Customer Management Specialist Goal (LTG) Low back tenderness to palpation down to 1/5 - Complaint of pain LTG Duration 05/27/18 Assessment Summary Assessment Pt continues to progress well, appears to have decreased pain and muscle tone with compliance with HEP Physical Therapy Plan Frequency and Duration Frequency of Treatment 2x/Week Duration of Treatment 12 weeks Plan of Care Start Date 03/27/18 Plan of Care End Date 06/19/18 Therapeutic Interventions Therapeutic Interventions Aquatic Therapy Home Exercise Program Joint Mobilizations Manual Therapy Neuromuscular Re-education Patient/Caregiver Education Soft Tissue Mobilization Therapeutic Exercises Vestibular Rehabilitation Modalities Cold Pack/Ice Massage Electric Stimulation Hot Packs Ultrasound Next Visit Focus/Plan Next Note Type Treatment Note Next Visit Plan Manual therapy for decreasing spasm, modalities (US, E-stim) .
--- NOTE | 2018-04-05 15:19 | PT.OTN ---
Current Diagnoses Unspecified inflammatory spondylopathy, lumbar region (04/05/18) Physical Therapy Treatment Note PT-OP-A Visit Information Start: 12/21/17 16:51 Freq: Status: Active Protocol: Document 04/05/18 14:35 DCW (Rec: 04/05/18 15:19 DCW [id number]) Out-Patient Physical Therapy Visit Information Visit Information Visit Type Treatment Note Visit Start Time 14:35 Visit Stop Time 15:15 Total Visit Minutes 40 Visit Number 12 Number of WATER VESSEL CAPTAIN Visits 0 Evaluation Information Evaluation Date 12/21/17 PT-OP-B Current Condition Start: 12/21/17 16:51 Freq: Status: Active Protocol: Document 03/27/18 14:30 DCW (Rec: 03/27/18 14:43 DCW [id number]) Current Condition Current Functional Impairments (Reported) Functional Limitations- ADL's Pain with standing for 10+ minutes Pain with sitting 30+ minutes Pain disturbs sleep Unable to drive 30+ minutes Functional Limitations- Mobility/Gait Pt reports he must drive from his house to the barn, which is ~100 yards away. 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 Personal Factors Other Personal Factors That May Effect Morbid Obesity, Neuropathy, Therapy/Recovery Phrenic nerve palsy, cervical spinal fusion PT-OP-C Subjective Start: 12/21/17 16:51 Freq: Status: Active Protocol: Document 04/05/18 14:35 DCW (Rec: 04/05/18 15:19 DCW [id number]) OP-PT Subjective Patient Comments Patient Comments Pt notes he is sore today. PT-OP-F Manual Assessment Start: 12/21/17 16:51 Freq: Status: Active Protocol: Document 03/27/18 14:30 DCW (Rec: 03/27/18 14:43 DCW [id number]) Manual Assessments Joint Mobility Assessment Joint Mobility Assessment P->A hypomobility and 3/5 - Wincing and Withdrawal tenderness in L1-L5 and bilateral SI joints PT-OP-J Posture/Palpation/Skin Start: 12/21/17 16:51 Freq: Status: Active Protocol: Document 03/27/18 14:30 DCW (Rec: 03/27/18 14:43 DCW [id number]) Palpation Assessment Location Four Palpation Location Gluteus Max Palpation Findings Soft Tissue Tightness Spasm Muscle Guarding Tenderness Palpation Details Severe Tone and Tenderness 3/5 - Wincing and Withdrawal Three Palpation Location Quadratus Lumborum Palpation Findings Soft Tissue Tightness Spasm Muscle Guarding Tenderness Palpation Details Severe Tone and Tenderness 3/5 - Wincing and Withdrawal Two Palpation Location Piriformis Palpation Findings Soft Tissue Tightness Spasm Muscle Guarding Tenderness Palpation Details Severe Tone and Tenderness 3/5 - Wincing and Withdrawal One Palpation Location Multifidi Palpation Findings Soft Tissue Tightness Spasm Muscle Guarding Tenderness Palpation Details Severe Tone and Tenderness 3/5 - Wincing and Withdrawal PT-OP-K Range of Motion Start: 12/21/17 16:51 Freq: Status: Active Protocol: Document 03/27/18 14:30 DCW (Rec: 03/27/18 14:43 DCW [id number]) Lumbar Spine Range of Motion Lumbar Spine Active Degrees Testing Position Standing Flexion 8 Extension 0 Comments Rotation and Lateral Flexion not tested secondary to pain PT-OP-L Special Tests Start: 12/21/17 16:51 Freq: Status: Active Protocol: Document 03/27/18 14:30 DCW (Rec: 03/27/18 14:43 DCW [id number]) Special Tests Lumbar Spine Special Tests Standing Flexion Test Results Lumbar spine unable to flex more than eight degrees Prone Knee Flexion Test Results Bilateral low back pain Straight Leg Raise Test Results Severe Bilateral pain at 35 degrees Prone Press Up Test Results Complaints of Pain PT-OP-Q Treatments Start: 12/21/17 16:51 Freq: Status: Active Protocol: Document 04/05/18 14:35 DCW (Rec: 04/05/18 15:19 DCW [id number]) Manual Therapy Treatment Soft Tissue Mobilization 4 Body Location Lumbar Paravetebral Musculature Mobilization Type Cross-Friction Instrument Assisted Rolling Strumming Sustained Pressure Trigger Point Release Intensity/Depth Moderate Body Position Prone 3 Body Location Piriformis Mobilization Type Myofascial Release 2 Body Location Quadratus Lumborum Mobilization Type Myofascial Release Strumming Sustained Pressure Trigger Point Release Intensity/Depth Deep Body Position Prone 1 Body Location Multifidi Mobilization Type Myofascial Release Strumming Sustained Pressure Trigger Point Release Intensity/Depth Moderate Body Position Prone Joint Mobilizations 1 Joint Lumbar 1-5 Direction P->A Grade III Body Position Prone PT-OP-R Modalities Start: 05/18/18 16:51 Freq: Status: Active Protocol: Document 04/05/18 14:35 DCW (Rec: 04/05/18 15:19 DCW [id number]) Ultrasound Therapy Treatment Right Lower Back Treatment Duration (minutes) 5 Patient Position Prone Coupling Medium Ultrasound Gel Frequency Setting (mHz) 1 Mode Setting Continuous Intensity Setting (w/cm2) 1.2 Left Lower Back Treatment Duration (minutes) 5 Patient Position Prone Coupling Medium Ultrasound Gel Frequency Setting (mHz) 1 Mode Setting Continuous Intensity Setting (w/cm2) 1.2 PT-OP-T Assessment and Plan Start: 12/21/17 16:51 Freq: Status: Active Protocol: Document 04/05/18 14:35 DCW (Rec: 04/05/18 15:19 DCW [id number]) Physical Therapy Assessment Impairments Impairments Activity Tolerance Balance Pain Posture ROM Soft Tissue Mobility Tone Goals Six Impairment Activity Tolerance Short Term Goal (STG) Pt to report ability to drive for 60 minutes with no increased pain STG Duration 04/27/18 Heart Specialist Goal (LTG) Pt to report ability to walk down to his barn from the house (100 yards) with no increased pain LTG Duration 05/27/18 Five Impairment Pain Short Term Goal (STG) Pt to report pain at worst 7/ 10 STG Duration 04/27/18 Heart Specialist Goal (LTG) Pt to report pain at worst 4/ 10 LTG Duration 05/27/18 Four Impairment SLR Shelter Goal (LTG) SLR to 50 degrees without increased pain LTG Duration 05/27/18 Three Impairment Joint Mobility Shelter Goal (LTG) P->A mobility of L1-5 to WNL LTG Duration 05/27/18 Two Impairment Muscle Tone Heart Specialist Goal (LTG) Multifidi, QL, Glute Max, and Piriformis tone to Mild LTG Duration 05/27/18 One Impairment Palpation Tenderness Heart Specialist Goal (LTG) Low back tenderness to palpation down to 1/5 - Complaint of pain LTG Duration 05/27/18 Assessment Summary Assessment Noted improvement in pain and mobility following today's session. Physical Therapy Plan Frequency and Duration Frequency of Treatment 2x/Week Duration of Treatment 12 weeks Plan of Care Start Date 03/27/18 Plan of Care End Date 06/19/18 Therapeutic Interventions Therapeutic Interventions Aquatic Therapy Home Exercise Program Joint Mobilizations Manual Therapy Neuromuscular Re-education Patient/Caregiver Education Soft Tissue Mobilization Therapeutic Exercises Vestibular Rehabilitation Modalities Cold Pack/Ice Massage Electric Stimulation Hot Packs Ultrasound Next Visit Focus/Plan Next Note Type Treatment Note Next Visit Plan Manual therapy for decreasing spasm, modalities (US, E-stim) .
--- NOTE | 2018-04-10 17:37 | PT.OTN ---
Current Diagnoses Unspecified inflammatory spondylopathy, lumbar region (04/10/18) Physical Therapy Treatment Note PT-OP-A Visit Information Start: 12/21/17 16:51 Freq: Status: Active Protocol: Document 04/10/18 14:30 DCW (Rec: 04/10/18 17:37 [facility] [id number]) Out-Patient Physical Therapy Visit Information Visit Information Visit Type Treatment Note Visit Start Time 14:30 Visit Stop Time 15:15 Total Visit Minutes 40 Visit Number 13 Number of DESIGN DRAFTSMAN Visits 0 Evaluation Information Evaluation Date 12/21/17 PT-OP-B Current Condition Start: 12/21/17 16:51 Freq: Status: Active Protocol: Document 03/27/18 14:30 DCW (Rec: 03/27/18 14:43 DCW [id number]) Current Condition Current Functional Impairments (Reported) Functional Limitations- ADL's Pain with standing for 10+ minutes Pain with sitting 30+ minutes Pain disturbs sleep Unable to drive 30+ minutes Functional Limitations- Mobility/Gait Pt reports he must drive from his house to the barn, which is ~100 yards away. 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 Personal Factors Other Personal Factors That May Effect Morbid Obesity, Neuropathy, Therapy/Recovery Phrenic nerve palsy, cervical spinal fusion PT-OP-C Subjective Start: 12/21/17 16:51 Freq: Status: Active Protocol: Document 04/10/18 14:30 DCW (Rec: 04/10/18 17:37 DCW [id number]) OP-PT Subjective Patient Comments Patient Comments I have to apologize about what you're going to find today. Pt notes that he carried into his house and set up a 7' shiraz-sized wooden headboard, which was very heavy and caused a lot of pain . PT-OP-F Manual Assessment Start: 12/21/17 16:51 Freq: Status: Active Protocol: Document 03/27/18 14:30 DCW (Rec: 03/27/18 14:43 DCW [id number]) Manual Assessments Joint Mobility Assessment Joint Mobility Assessment P->A hypomobility and 3/5 - Wincing and Withdrawal tenderness in L1-L5 and bilateral SI joints PT-OP-J Posture/Palpation/Skin Start: 12/21/17 16:51 Freq: Status: Active Protocol: Document 03/27/18 14:30 DCW (Rec: 03/27/18 14:43 DCW [id number]) Palpation Assessment Location Four Palpation Location Gluteus Max Palpation Findings Soft Tissue Tightness Spasm Muscle Guarding Tenderness Palpation Details Severe Tone and Tenderness 3/5 - Wincing and Withdrawal Three Palpation Location Quadratus Lumborum Palpation Findings Soft Tissue Tightness Spasm Muscle Guarding Tenderness Palpation Details Severe Tone and Tenderness 3/5 - Wincing and Withdrawal Two Palpation Location Piriformis Palpation Findings Soft Tissue Tightness Spasm Muscle Guarding Tenderness Palpation Details Severe Tone and Tenderness 3/5 - Wincing and Withdrawal One Palpation Location Multifidi Palpation Findings Soft Tissue Tightness Spasm Muscle Guarding Tenderness Palpation Details Severe Tone and Tenderness 3/5 - Wincing and Withdrawal PT-OP-K Range of Motion Start: 12/21/17 16:51 Freq: Status: Active Protocol: Document 03/27/18 14:30 DCW (Rec: 03/27/18 14:43 DCW [id number]) Lumbar Spine Range of Motion Lumbar Spine Active Degrees Testing Position Standing Flexion 8 Extension 0 Comments Rotation and Lateral Flexion not tested secondary to pain PT-OP-L Special Tests Start: 12/21/17 16:51 Freq: Status: Active Protocol: Document 03/27/18 14:30 DCW (Rec: 03/27/18 14:43 DCW [id number]) Special Tests Lumbar Spine Special Tests Standing Flexion Test Results Lumbar spine unable to flex more than eight degrees Prone Knee Flexion Test Results Bilateral low back pain Straight Leg Raise Test Results Severe Bilateral pain at 35 degrees Prone Press Up Test Results Complaints of Pain PT-OP-Q Treatments Start: 12/21/17 16:51 Freq: Status: Active Protocol: Document 04/10/18 14:30 DCW (Rec: 04/10/18 17:37 DCW [id number]) Manual Therapy Treatment Soft Tissue Mobilization 4 Body Location Lumbar Paravetebral Musculature Mobilization Type Cross-Friction Instrument Assisted Rolling Strumming Sustained Pressure Trigger Point Release Intensity/Depth Moderate Body Position Prone 3 Body Location Piriformis Mobilization Type Myofascial Release 2 Body Location Quadratus Lumborum Mobilization Type Myofascial Release Strumming Sustained Pressure Trigger Point Release Intensity/Depth Deep Body Position Prone 1 Body Location Multifidi Mobilization Type Myofascial Release Strumming Sustained Pressure Trigger Point Release Intensity/Depth Moderate Body Position Prone Joint Mobilizations 1 Joint Lumbar 1-5 Direction P->A Grade III Body Position Prone PT-OP-R Modalities Start: 12/21/17 16:51 Freq: Status: Active Protocol: Document 04/10/18 14:30 DCW (Rec: 04/10/18 17:37 DCW [id number]) Ultrasound Therapy Treatment Right Lower Back Treatment Duration (minutes) 5 Patient Position Prone Coupling Medium Ultrasound Gel Frequency Setting (mHz) 1 Mode Setting Continuous Intensity Setting (w/cm2) 1.2 Left Lower Back Treatment Duration (minutes) 5 Patient Position Prone Coupling Medium Ultrasound Gel Frequency Setting (mHz) 1 Mode Setting Continuous Intensity Setting (w/cm2) 1.2 PT-OP-T Assessment and Plan Start: 12/21/17 16:51 Freq: Status: Active Protocol: Document 04/10/18 14:30 DCW (Rec: 04/10/18 17:37 DCW [id number]) Physical Therapy Assessment Impairments Impairments Activity Tolerance Balance Pain Posture ROM Soft Tissue Mobility Tone Goals Six Impairment Activity Tolerance Short Term Goal (STG) Pt to report ability to drive for 60 minutes with no increased pain STG Duration 04/27/18 Pipe Organ Mechanic Apprentice Goal (LTG) Pt to report ability to walk down to his barn from the house (100 yards) with no increased pain LTG Duration 05/27/18 Five Impairment Pain Short Term Goal (STG) Pt to report pain at worst 7/ 10 STG Duration 04/27/18 Correction Goal (LTG) Pt to report pain at worst 4/ 10 LTG Duration 05/27/18 Four Impairment SLR Correction Goal (LTG) SLR to 50 degrees without increased pain LTG Duration 05/27/18 Three Impairment Joint Mobility Pipe Organ Mechanic Apprentice Goal (LTG) P->A mobility of L1-5 to WNL LTG Duration 05/27/18 Two Impairment Muscle Tone Pipe Organ Mechanic Apprentice Goal (LTG) Multifidi, QL, Glute Max, and Piriformis tone to Mild LTG Duration 05/27/18 One Impairment Palpation Tenderness Correction Goal (LTG) Low back tenderness to palpation down to 1/5 - Complaint of pain LTG Duration 05/27/18 Assessment Summary Assessment Pt reported that he felt that the muscle spasm that he came into the clinic with was loosened up and feeling quite a bit better following his manual treatment. Physical Therapy Plan Frequency and Duration Frequency of Treatment 2x/Week Duration of Treatment 12 weeks Plan of Care Start Date 03/27/18 Plan of Care End Date 06/19/18 Therapeutic Interventions Therapeutic Interventions Aquatic Therapy Home Exercise Program Joint Mobilizations Manual Therapy Neuromuscular Re-education Patient/Caregiver Education Soft Tissue Mobilization Therapeutic Exercises Vestibular Rehabilitation Modalities Cold Pack/Ice Massage Electric Stimulation Hot Packs Ultrasound Next Visit Focus/Plan Next Note Type Treatment Note Next Visit Plan Manual therapy for decreasing spasm, modalities (US, E-stim) .
--- NOTE | 2018-04-12 15:15 | PT.OTN ---
Current Diagnoses Unspecified inflammatory spondylopathy, lumbar region (04/12/18) Physical Therapy Treatment Note PT-OP-A Visit Information Start: 12/21/17 16:51 Freq: Status: Active Protocol: Document 04/12/18 14:30 DCW (Rec: 04/12/18 15:15 DCW [id number]) Out-Patient Physical Therapy Visit Information Visit Information Visit Type Treatment Note Visit Start Time 14:30 Visit Stop Time 15:15 Total Visit Minutes 40 Visit Number 14 Number of COMPUTER SYSTEMS DESIGN ANALYST Visits 0 Evaluation Information Evaluation Date 12/21/17 PT-OP-B Current Condition Start: 12/21/17 16:51 Freq: Status: Active Protocol: Document 03/27/18 14:30 DCW (Rec: 03/27/18 14:43 DCW [id number]) Current Condition Current Functional Impairments (Reported) Functional Limitations- ADL's Pain with standing for 10+ minutes Pain with sitting 30+ minutes Pain disturbs sleep Unable to drive 30+ minutes Functional Limitations- Mobility/Gait Pt reports he must drive from his house to the barn, which is ~100 yards away. 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 Personal Factors Other Personal Factors That May Effect Morbid Obesity, Neuropathy, Therapy/Recovery Phrenic nerve palsy, cervical spinal fusion PT-OP-C Subjective Start: 12/21/17 16:51 Freq: Status: Active Protocol: Document 04/12/18 14:30 DCW (Rec: 04/12/18 15:15 DCW [id number]) OP-PT Subjective Patient Comments Patient Comments Pt reports his back feels much better than it did on Sunday, but there's still a lot to do. PT-OP-F Manual Assessment Start: 12/21/17 16:51 Freq: Status: Active Protocol: Document 03/27/18 14:30 DCW (Rec: 03/27/18 14:43 DCW [id number]) Manual Assessments Joint Mobility Assessment Joint Mobility Assessment P->A hypomobility and 3/5 - Wincing and Withdrawal tenderness in L1-L5 and bilateral SI joints PT-OP-J Posture/Palpation/Skin Start: 12/21/17 16:51 Freq: Status: Active Protocol: Document 03/27/18 14:30 DCW (Rec: 03/27/18 14:43 DCW [id number]) Palpation Assessment Location Four Palpation Location Gluteus Max Palpation Findings Soft Tissue Tightness Spasm Muscle Guarding Tenderness Palpation Details Severe Tone and Tenderness 3/5 - Wincing and Withdrawal Three Palpation Location Quadratus Lumborum Palpation Findings Soft Tissue Tightness Spasm Muscle Guarding Tenderness Palpation Details Severe Tone and Tenderness 3/5 - Wincing and Withdrawal Two Palpation Location Piriformis Palpation Findings Soft Tissue Tightness Spasm Muscle Guarding Tenderness Palpation Details Severe Tone and Tenderness 3/5 - Wincing and Withdrawal One Palpation Location Multifidi Palpation Findings Soft Tissue Tightness Spasm Muscle Guarding Tenderness Palpation Details Severe Tone and Tenderness 3/5 - Wincing and Withdrawal PT-OP-K Range of Motion Start: 12/21/17 16:51 Freq: Status: Active Protocol: Document 03/27/18 14:30 DCW (Rec: 03/27/18 14:43 DCW [id number]) Lumbar Spine Range of Motion Lumbar Spine Active Degrees Testing Position Standing Flexion 8 Extension 0 Comments Rotation and Lateral Flexion not tested secondary to pain PT-OP-L Special Tests Start: 12/21/17 16:51 Freq: Status: Active Protocol: Document 03/27/18 14:30 DCW (Rec: 03/27/18 14:43 DCW [id number]) Special Tests Lumbar Spine Special Tests Standing Flexion Test Results Lumbar spine unable to flex more than eight degrees Prone Knee Flexion Test Results Bilateral low back pain Straight Leg Raise Test Results Severe Bilateral pain at 35 degrees Prone Press Up Test Results Complaints of Pain PT-OP-Q Treatments Start: 12/21/17 16:51 Freq: Status: Active Protocol: Document 04/12/18 14:30 DCW (Rec: 04/12/18 15:15 DCW [id number]) Manual Therapy Treatment Soft Tissue Mobilization 4 Body Location Lumbar Paravetebral Musculature Mobilization Type Cross-Friction Instrument Assisted Rolling Strumming Sustained Pressure Trigger Point Release Intensity/Depth Moderate Body Position Prone 3 Body Location Piriformis Mobilization Type Myofascial Release 2 Body Location Quadratus Lumborum Mobilization Type Myofascial Release Strumming Sustained Pressure Trigger Point Release Intensity/Depth Deep Body Position Prone 1 Body Location Multifidi Mobilization Type Myofascial Release Strumming Sustained Pressure Trigger Point Release Intensity/Depth Moderate Body Position Prone Joint Mobilizations 1 Joint Lumbar 1-5 Direction P->A Grade III Body Position Prone PT-OP-R Modalities Start: 12/21/17 16:51 Freq: Status: Active Protocol: Document 04/12/18 14:30 DCW (Rec: 04/12/18 15:15 DCW [id number]) Ultrasound Therapy Treatment Right Lower Back Treatment Duration (minutes) 5 Patient Position Prone Coupling Medium Ultrasound Gel Frequency Setting (mHz) 1 Mode Setting Continuous Intensity Setting (w/cm2) 1.2 Left Lower Back Treatment Duration (minutes) 5 Patient Position Prone Coupling Medium Ultrasound Gel Frequency Setting (mHz) 1 Mode Setting Continuous Intensity Setting (w/cm2) 1.2 PT-OP-T Assessment and Plan Start: 12/21/17 16:51 Freq: Status: Active Protocol: Document 04/12/18 14:30 DCW (Rec: 04/12/18 15:15 DCW [id number]) Physical Therapy Assessment Impairments Impairments Activity Tolerance Balance Pain Posture ROM Soft Tissue Mobility Tone Goals Six Impairment Activity Tolerance Short Term Goal (STG) Pt to report ability to drive for 60 minutes with no increased pain STG Duration 04/27/18 Custodial Goal (LTG) Pt to report ability to walk down to his barn from the house (100 yards) with no increased pain LTG Duration 05/27/18 Five Impairment Pain Short Term Goal (STG) Pt to report pain at worst 7/ 10 STG Duration 04/27/18 Director Translational Goal (LTG) Pt to report pain at worst 4/ 10 LTG Duration 05/27/18 Four Impairment SLR Custodial Goal (LTG) SLR to 50 degrees without increased pain LTG Duration 05/27/18 Three Impairment Joint Mobility Director Translational Goal (LTG) P->A mobility of L1-5 to WNL LTG Duration 05/27/18 Two Impairment Muscle Tone Custodial Goal (LTG) Multifidi, QL, Glute Max, and Piriformis tone to Mild LTG Duration 05/27/18 One Impairment Palpation Tenderness Custodial Goal (LTG) Low back tenderness to palpation down to 1/5 - Complaint of pain LTG Duration 05/27/18 Assessment Summary Assessment Pt presented today with decreased (though still present) tone and tenderness throughout his low back. Physical Therapy Plan Frequency and Duration Frequency of Treatment 2x/Week Duration of Treatment 12 weeks Plan of Care Start Date 03/27/18 Plan of Care End Date 06/19/18 Therapeutic Interventions Therapeutic Interventions Aquatic Therapy Home Exercise Program Joint Mobilizations Manual Therapy Neuromuscular Re-education Patient/Caregiver Education Soft Tissue Mobilization Therapeutic Exercises Vestibular Rehabilitation Modalities Cold Pack/Ice Massage Electric Stimulation Hot Packs Ultrasound Next Visit Focus/Plan Next Note Type Treatment Note Next Visit Plan Manual therapy for decreasing spasm, modalities (US, E-stim) .
--- NOTE | 2018-04-16 14:05 | PM.PROC.1 ---
Procedures Date/Time Date of procedure: 04/16/18 Time of procedure: 14:06
--- NOTE | 2018-04-16 17:48 | PT.OTN ---
Current Diagnoses Unspecified inflammatory spondylopathy, lumbar region (04/16/18) Physical Therapy Treatment Note PT-OP-A Visit Information Start: 12/21/17 16:51 Freq: Status: Active Protocol: Document 04/16/18 14:30 DCW (Rec: 04/16/18 17:47 DCW [id number]) Out-Patient Physical Therapy Visit Information Visit Information Visit Type Treatment Note Visit Start Time 14:30 Visit Stop Time 15:15 Total Visit Minutes 40 Visit Number 15 Number of MINT WAFER DEPOSITOR Visits 0 Evaluation Information Evaluation Date 12/21/17 PT-OP-B Current Condition Start: 12/21/17 16:51 Freq: Status: Active Protocol: Document 03/27/18 14:30 DCW (Rec: 03/27/18 14:43 DCW [id number]) Current Condition Current Functional Impairments (Reported) Functional Limitations- ADL's Pain with standing for 10+ minutes Pain with sitting 30+ minutes Pain disturbs sleep Unable to drive 30+ minutes Functional Limitations- Mobility/Gait Pt reports he must drive from his house to the barn, which is ~100 yards away. 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 Personal Factors Other Personal Factors That May Effect Morbid Obesity, Neuropathy, Therapy/Recovery Phrenic nerve palsy, cervical spinal fusion PT-OP-C Subjective Start: 12/21/17 16:51 Freq: Status: Active Protocol: Document 04/16/18 14:30 DCW (Rec: 04/16/18 17:47 DCW [id number]) OP-PT Subjective Patient Comments Patient Comments I'm better. I'm still sore, but better. PT-OP-F Manual Assessment Start: 12/21/17 16:51 Freq: Status: Active Protocol: Document 03/27/18 14:30 DCW (Rec: 03/27/18 14:43 DCW [id number]) Manual Assessments Joint Mobility Assessment Joint Mobility Assessment P->A hypomobility and 3/5 - Wincing and Withdrawal tenderness in L1-L5 and bilateral SI joints PT-OP-J Posture/Palpation/Skin Start: 12/21/17 16:51 Freq: Status: Active Protocol: Document 03/27/18 14:30 DCW (Rec: 03/27/18 14:43 DCW [id number]) Palpation Assessment Location Four Palpation Location Gluteus Max Palpation Findings Soft Tissue Tightness Spasm Muscle Guarding Tenderness Palpation Details Severe Tone and Tenderness 3/5 - Wincing and Withdrawal Three Palpation Location Quadratus Lumborum Palpation Findings Soft Tissue Tightness Spasm Muscle Guarding Tenderness Palpation Details Severe Tone and Tenderness 3/5 - Wincing and Withdrawal Two Palpation Location Piriformis Palpation Findings Soft Tissue Tightness Spasm Muscle Guarding Tenderness Palpation Details Severe Tone and Tenderness 3/5 - Wincing and Withdrawal One Palpation Location Multifidi Palpation Findings Soft Tissue Tightness Spasm Muscle Guarding Tenderness Palpation Details Severe Tone and Tenderness 3/5 - Wincing and Withdrawal PT-OP-K Range of Motion Start: 12/21/17 16:51 Freq: Status: Active Protocol: Document 03/27/18 14:30 DCW (Rec: 03/27/18 14:43 DCW [id number]) Lumbar Spine Range of Motion Lumbar Spine Active Degrees Testing Position Standing Flexion 8 Extension 0 Comments Rotation and Lateral Flexion not tested secondary to pain PT-OP-L Special Tests Start: 12/21/17 16:51 Freq: Status: Active Protocol: Document 03/27/18 14:30 DCW (Rec: 03/27/18 14:43 DCW [id number]) Special Tests Lumbar Spine Special Tests Standing Flexion Test Results Lumbar spine unable to flex more than eight degrees Prone Knee Flexion Test Results Bilateral low back pain Straight Leg Raise Test Results Severe Bilateral pain at 35 degrees Prone Press Up Test Results Complaints of Pain PT-OP-Q Treatments Start: 12/21/17 16:51 Freq: Status: Active Protocol: Document 04/16/18 14:30 DCW (Rec: 04/16/18 17:47 DCW [id number]) Manual Therapy Treatment Soft Tissue Mobilization 4 Body Location Lumbar Paravetebral Musculature Mobilization Type Cross-Friction Instrument Assisted Rolling Strumming Sustained Pressure Trigger Point Release Intensity/Depth Moderate Body Position Prone 3 Body Location Piriformis Mobilization Type Myofascial Release 2 Body Location Quadratus Lumborum Mobilization Type Myofascial Release Strumming Sustained Pressure Trigger Point Release Intensity/Depth Deep Body Position Prone 1 Body Location Multifidi Mobilization Type Myofascial Release Strumming Sustained Pressure Trigger Point Release Intensity/Depth Moderate Body Position Prone Joint Mobilizations 1 Joint Lumbar 1-5 Direction P->A Grade III Body Position Prone PT-OP-R Modalities Start: 12/21/17 16:51 Freq: Status: Active Protocol: Document 04/16/18 14:30 DCW (Rec: 04/16/18 17:47 DCW [id number]) Ultrasound Therapy Treatment Right Lower Back Treatment Duration (minutes) 5 Patient Position Prone Coupling Medium Ultrasound Gel Frequency Setting (mHz) 1 Mode Setting Continuous Intensity Setting (w/cm2) 1.2 Left Lower Back Treatment Duration (minutes) 5 Patient Position Prone Coupling Medium Ultrasound Gel Frequency Setting (mHz) 1 Mode Setting Continuous Intensity Setting (w/cm2) 1.2 PT-OP-T Assessment and Plan Start: 12/21/17 16:51 Freq: Status: Active Protocol: Document 04/16/18 14:30 DCW (Rec: 04/16/18 17:47 DCW [id number]) Physical Therapy Assessment Impairments Impairments Activity Tolerance Balance Pain Posture ROM Soft Tissue Mobility Tone Goals Six Impairment Activity Tolerance Short Term Goal (STG) Pt to report ability to drive for 60 minutes with no increased pain STG Duration 04/27/18 Mint Machine Operator Goal (LTG) Pt to report ability to walk down to his barn from the house (100 yards) with no increased pain LTG Duration 05/27/18 Five Impairment Pain Short Term Goal (STG) Pt to report pain at worst 7/ 10 STG Duration 04/27/18 Mint Machine Operator Goal (LTG) Pt to report pain at worst 4/ 10 LTG Duration 05/27/18 Four Impairment SLR Mint Machine Operator Goal (LTG) SLR to 50 degrees without increased pain LTG Duration 05/27/18 Three Impairment Joint Mobility Senior Care Goal (LTG) P->A mobility of L1-5 to WNL LTG Duration 05/27/18 Two Impairment Muscle Tone Senior Care Goal (LTG) Multifidi, QL, Glute Max, and Piriformis tone to Mild LTG Duration 05/27/18 One Impairment Palpation Tenderness Mint Machine Operator Goal (LTG) Low back tenderness to palpation down to 1/5 - Complaint of pain LTG Duration 05/27/18 Assessment Summary Assessment Pt has been regularly performing his HEP/ strengthening exercises, and is making good progress with back pain and tone. Physical Therapy Plan Frequency and Duration Frequency of Treatment 2x/Week Duration of Treatment 12 weeks Plan of Care Start Date 03/27/18 Plan of Care End Date 06/19/18 Therapeutic Interventions Therapeutic Interventions Aquatic Therapy Home Exercise Program Joint Mobilizations Manual Therapy Neuromuscular Re-education Patient/Caregiver Education Soft Tissue Mobilization Therapeutic Exercises Vestibular Rehabilitation Modalities Cold Pack/Ice Massage Electric Stimulation Hot Packs Ultrasound Next Visit Focus/Plan Next Note Type Treatment Note Next Visit Plan Manual therapy for decreasing spasm, modalities (US, E-stim) .
--- NOTE | 2018-04-19 15:14 | PT.OTN ---
Current Diagnoses Unspecified inflammatory spondylopathy, lumbar region (04/19/18) Physical Therapy Treatment Note PT-OP-A Visit Information Start: 12/21/17 16:51 Freq: Status: Active Protocol: Document 04/19/18 14:30 DCW (Rec: 04/19/18 15:14 DCW [id number]) Out-Patient Physical Therapy Visit Information Visit Information Visit Type Treatment Note Visit Start Time 14:30 Visit Stop Time 15:15 Total Visit Minutes 40 Visit Number 15 Number of DIET THERAPIST Visits 0 Evaluation Information Evaluation Date 12/21/17 PT-OP-B Current Condition Start: 12/21/17 16:51 Freq: Status: Active Protocol: Document 03/27/18 14:30 DCW (Rec: 03/27/18 14:43 DCW [id number]) Current Condition Current Functional Impairments (Reported) Functional Limitations- ADL's Pain with standing for 10+ minutes Pain with sitting 30+ minutes Pain disturbs sleep Unable to drive 30+ minutes Functional Limitations- Mobility/Gait Pt reports he must drive from his house to the barn, which is ~100 yards away. 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 Personal Factors Other Personal Factors That May Effect Morbid Obesity, Neuropathy, Therapy/Recovery Phrenic nerve palsy, cervical spinal fusion PT-OP-C Subjective Start: 12/21/17 16:51 Freq: Status: Active Protocol: Document 04/19/18 14:30 DCW (Rec: 04/19/18 15:14 DCW [id number]) OP-PT Subjective Patient Comments Patient Comments It feels like the really nasty knots are gone, but it is just tight. PT-OP-F Manual Assessment Start: 12/21/17 16:51 Freq: Status: Active Protocol: Document 03/27/18 14:30 DCW (Rec: 03/27/18 14:43 DCW [id number]) Manual Assessments Joint Mobility Assessment Joint Mobility Assessment P->A hypomobility and 3/5 - Wincing and Withdrawal tenderness in L1-L5 and bilateral SI joints PT-OP-J Posture/Palpation/Skin Start: 12/21/17 16:51 Freq: Status: Active Protocol: Document 03/27/18 14:30 DCW (Rec: 03/27/18 14:43 DCW [id number]) Palpation Assessment Location Four Palpation Location Gluteus Max Palpation Findings Soft Tissue Tightness Spasm Muscle Guarding Tenderness Palpation Details Severe Tone and Tenderness 3/5 - Wincing and Withdrawal Three Palpation Location Quadratus Lumborum Palpation Findings Soft Tissue Tightness Spasm Muscle Guarding Tenderness Palpation Details Severe Tone and Tenderness 3/5 - Wincing and Withdrawal Two Palpation Location Piriformis Palpation Findings Soft Tissue Tightness Spasm Muscle Guarding Tenderness Palpation Details Severe Tone and Tenderness 3/5 - Wincing and Withdrawal One Palpation Location Multifidi Palpation Findings Soft Tissue Tightness Spasm Muscle Guarding Tenderness Palpation Details Severe Tone and Tenderness 3/5 - Wincing and Withdrawal PT-OP-K Range of Motion Start: 12/21/17 16:51 Freq: Status: Active Protocol: Document 03/27/18 14:30 DCW (Rec: 03/27/18 14:43 DCW [id number]) Lumbar Spine Range of Motion Lumbar Spine Active Degrees Testing Position Standing Flexion 8 Extension 0 Comments Rotation and Lateral Flexion not tested secondary to pain PT-OP-L Special Tests Start: 12/21/17 16:51 Freq: Status: Active Protocol: Document 03/27/18 14:30 DCW (Rec: 03/27/18 14:43 DCW [id number]) Special Tests Lumbar Spine Special Tests Standing Flexion Test Results Lumbar spine unable to flex more than eight degrees Prone Knee Flexion Test Results Bilateral low back pain Straight Leg Raise Test Results Severe Bilateral pain at 35 degrees Prone Press Up Test Results Complaints of Pain PT-OP-Q Treatments Start: 12/21/17 16:51 Freq: Status: Active Protocol: Document 04/19/18 14:30 DCW (Rec: 04/19/18 15:14 DCW [id number]) Manual Therapy Treatment Soft Tissue Mobilization 4 Body Location Lumbar Paravetebral Musculature Mobilization Type Cross-Friction Instrument Assisted Rolling Strumming Sustained Pressure Trigger Point Release Intensity/Depth Moderate Body Position Prone 3 Body Location Piriformis Mobilization Type Myofascial Release 2 Body Location Quadratus Lumborum Mobilization Type Myofascial Release Strumming Sustained Pressure Trigger Point Release Intensity/Depth Deep Body Position Prone 1 Body Location Multifidi Mobilization Type Myofascial Release Strumming Sustained Pressure Trigger Point Release Intensity/Depth Moderate Body Position Prone Joint Mobilizations 1 Joint Lumbar 1-5 Direction P->A Grade III Body Position Prone PT-OP-R Modalities Start: 12/21/17 16:51 Freq: Status: Active Protocol: Document 04/19/18 14:30 DCW (Rec: 04/19/18 15:14 DCW [id number]) Ultrasound Therapy Treatment Right Lower Back Treatment Duration (minutes) 5 Patient Position Prone Coupling Medium Ultrasound Gel Frequency Setting (mHz) 1 Mode Setting Continuous Intensity Setting (w/cm2) 1.2 Left Lower Back Treatment Duration (minutes) 5 Patient Position Prone Coupling Medium Ultrasound Gel Frequency Setting (mHz) 1 Mode Setting Continuous Intensity Setting (w/cm2) 1.2 PT-OP-T Assessment and Plan Start: 12/21/17 16:51 Freq: Status: Active Protocol: Document 04/19/18 14:30 DCW (Rec: 04/19/18 15:14 DCW [id number]) Physical Therapy Assessment Impairments Impairments Activity Tolerance Balance Pain Posture ROM Soft Tissue Mobility Tone Goals Six Impairment Activity Tolerance Short Term Goal (STG) Pt to report ability to drive for 60 minutes with no increased pain STG Duration 04/27/18 Senior Qa Engineer Goal (LTG) Pt to report ability to walk down to his barn from the house (100 yards) with no increased pain LTG Duration 05/27/18 Five Impairment Pain Short Term Goal (STG) Pt to report pain at worst 7/ 10 STG Duration 04/27/18 Assisted Goal (LTG) Pt to report pain at worst 4/ 10 LTG Duration 05/27/18 Four Impairment SLR Assisted Goal (LTG) SLR to 50 degrees without increased pain LTG Duration 05/27/18 Three Impairment Joint Mobility Assisted Goal (LTG) P->A mobility of L1-5 to WNL LTG Duration 05/27/18 Two Impairment Muscle Tone Assisted Goal (LTG) Multifidi, QL, Glute Max, and Piriformis tone to Mild LTG Duration 05/27/18 One Impairment Palpation Tenderness Senior Qa Engineer Goal (LTG) Low back tenderness to palpation down to 1/5 - Complaint of pain LTG Duration 05/27/18 Assessment Summary Assessment Pt has been making decent progress over the past few weeks. Physical Therapy Plan Frequency and Duration Frequency of Treatment 2x/Week Duration of Treatment 12 weeks Plan of Care Start Date 03/27/18 Plan of Care End Date 06/19/18 Therapeutic Interventions Therapeutic Interventions Aquatic Therapy Home Exercise Program Joint Mobilizations Manual Therapy Neuromuscular Re-education Patient/Caregiver Education Soft Tissue Mobilization Therapeutic Exercises Vestibular Rehabilitation Modalities Cold Pack/Ice Massage Electric Stimulation Hot Packs Ultrasound Next Visit Focus/Plan Next Note Type Treatment Note Next Visit Plan Manual therapy for decreasing spasm, modalities (US, E-stim) .
--- NOTE | 2018-04-23 15:31 | PT.OTN ---
Current Diagnoses Unspecified inflammatory spondylopathy, lumbar region (04/23/18) Physical Therapy Treatment Note PT-OP-A Visit Information Start: 12/21/17 16:51 Freq: Status: Active Protocol: Document 04/23/18 14:30 DCW (Rec: 04/23/18 15:31 DCW [id number]) Out-Patient Physical Therapy Visit Information Visit Information Visit Type Treatment Note Visit Start Time 14:30 Visit Stop Time 15:15 Total Visit Minutes 40 Visit Number 17 Number of DIRECTOR OF COMPLIANCE Visits 0 Evaluation Information Evaluation Date 12/21/17 PT-OP-B Current Condition Start: 12/21/17 16:51 Freq: Status: Active Protocol: Document 03/27/18 14:30 DCW (Rec: 03/27/18 14:43 DCW [id number]) Current Condition Current Functional Impairments (Reported) Functional Limitations- ADL's Pain with standing for 10+ minutes Pain with sitting 30+ minutes Pain disturbs sleep Unable to drive 30+ minutes Functional Limitations- Mobility/Gait Pt reports he must drive from his house to the barn, which is ~100 yards away. 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 Personal Factors Other Personal Factors That May Effect Morbid Obesity, Neuropathy, Therapy/Recovery Phrenic nerve palsy, cervical spinal fusion PT-OP-C Subjective Start: 12/21/17 16:51 Freq: Status: Active Protocol: Document 04/23/18 14:30 DCW (Rec: 04/23/18 15:31 DCW [id number]) OP-PT Subjective Patient Comments Patient Comments My back is much better, just feels like it's tight. Pt does note, however, that he has increased pain and tightness in his calfs. PT-OP-F Manual Assessment Start: 12/21/17 16:51 Freq: Status: Active Protocol: Document 03/27/18 14:30 DCW (Rec: 03/27/18 14:43 DCW [id number]) Manual Assessments Joint Mobility Assessment Joint Mobility Assessment P->A hypomobility and 3/5 - Wincing and Withdrawal tenderness in L1-L5 and bilateral SI joints PT-OP-J Posture/Palpation/Skin Start: 12/21/17 16:51 Freq: Status: Active Protocol: Document 03/27/18 14:30 DCW (Rec: 03/27/18 14:43 DCW [id number]) Palpation Assessment Location Four Palpation Location Gluteus Max Palpation Findings Soft Tissue Tightness Spasm Muscle Guarding Tenderness Palpation Details Severe Tone and Tenderness 3/5 - Wincing and Withdrawal Three Palpation Location Quadratus Lumborum Palpation Findings Soft Tissue Tightness Spasm Muscle Guarding Tenderness Palpation Details Severe Tone and Tenderness 3/5 - Wincing and Withdrawal Two Palpation Location Piriformis Palpation Findings Soft Tissue Tightness Spasm Muscle Guarding Tenderness Palpation Details Severe Tone and Tenderness 3/5 - Wincing and Withdrawal One Palpation Location Multifidi Palpation Findings Soft Tissue Tightness Spasm Muscle Guarding Tenderness Palpation Details Severe Tone and Tenderness 3/5 - Wincing and Withdrawal PT-OP-K Range of Motion Start: 12/21/17 16:51 Freq: Status: Active Protocol: Document 03/27/18 14:30 DCW (Rec: 03/27/18 14:43 DCW [id number]) Lumbar Spine Range of Motion Lumbar Spine Active Degrees Testing Position Standing Flexion 8 Extension 0 Comments Rotation and Lateral Flexion not tested secondary to pain PT-OP-L Special Tests Start: 12/21/17 16:51 Freq: Status: Active Protocol: Document 03/27/18 14:30 DCW (Rec: 03/27/18 14:43 DCW [id number]) Special Tests Lumbar Spine Special Tests Standing Flexion Test Results Lumbar spine unable to flex more than eight degrees Prone Knee Flexion Test Results Bilateral low back pain Straight Leg Raise Test Results Severe Bilateral pain at 35 degrees Prone Press Up Test Results Complaints of Pain PT-OP-Q Treatments Start: 12/21/17 16:51 Freq: Status: Active Protocol: Document 04/23/18 14:30 DCW (Rec: 04/23/18 15:31 DCW [id number]) Manual Therapy Treatment Soft Tissue Mobilization 5 Body Location Proximal Gastroc heads, bilateral Mobilization Type Myofascial Release Strumming Sustained Pressure Trigger Point Release Intensity/Depth Moderate Body Position Prone 4 Body Location Lumbar Paravetebral Musculature Mobilization Type Cross-Friction Instrument Assisted Rolling Strumming Sustained Pressure Trigger Point Release Intensity/Depth Moderate Body Position Prone 3 Body Location Piriformis Mobilization Type Myofascial Release 2 Body Location Quadratus Lumborum Mobilization Type Myofascial Release Strumming Sustained Pressure Trigger Point Release Intensity/Depth Deep Body Position Prone 1 Body Location Multifidi Mobilization Type Myofascial Release Strumming Sustained Pressure Trigger Point Release Intensity/Depth Moderate Body Position Prone Joint Mobilizations 1 Joint Lumbar 1-5 Direction P->A Grade III Body Position Prone PT-OP-R Modalities Start: 12/21/17 16:51 Freq: Status: Active Protocol: Document 04/23/18 14:30 DCW (Rec: 04/23/18 15:31 DCW [id number]) Ultrasound Therapy Treatment Right Lower Back Treatment Duration (minutes) 5 Patient Position Prone Coupling Medium Ultrasound Gel Frequency Setting (mHz) 1 Mode Setting Continuous Intensity Setting (w/cm2) 1.2 Left Lower Back Treatment Duration (minutes) 5 Patient Position Prone Coupling Medium Ultrasound Gel Frequency Setting (mHz) 1 Mode Setting Continuous Intensity Setting (w/cm2) 1.2 PT-OP-T Assessment and Plan Start: 12/21/17 16:51 Freq: Status: Active Protocol: Document 04/23/18 14:30 DCW (Rec: 04/23/18 15:31 DCW [id number]) Physical Therapy Assessment Impairments Impairments Activity Tolerance Balance Pain Posture ROM Soft Tissue Mobility Tone Goals Six Impairment Activity Tolerance Short Term Goal (STG) Pt to report ability to drive for 60 minutes with no increased pain STG Duration 04/27/18 Tobacco Classer Goal (LTG) Pt to report ability to walk down to his barn from the house (100 yards) with no increased pain LTG Duration 05/27/18 Five Impairment Pain Short Term Goal (STG) Pt to report pain at worst 7/ 10 STG Duration 04/27/18 Tobacco Classer Goal (LTG) Pt to report pain at worst 4/ 10 LTG Duration 05/27/18 Four Impairment SLR Custodial Goal (LTG) SLR to 50 degrees without increased pain LTG Duration 05/27/18 Three Impairment Joint Mobility Tobacco Classer Goal (LTG) P->A mobility of L1-5 to WNL LTG Duration 05/27/18 Two Impairment Muscle Tone Custodial Goal (LTG) Multifidi, QL, Glute Max, and Piriformis tone to Mild LTG Duration 05/27/18 One Impairment Palpation Tenderness Custodial Goal (LTG) Low back tenderness to palpation down to 1/5 - Complaint of pain LTG Duration 05/27/18 Assessment Summary Assessment Pt again demonstrating improvement with his low back pain and increased tone. Physical Therapy Plan Frequency and Duration Frequency of Treatment 2x/Week Duration of Treatment 12 weeks Plan of Care Start Date 03/27/18 Plan of Care End Date 06/19/18 Therapeutic Interventions Therapeutic Interventions Aquatic Therapy Home Exercise Program Joint Mobilizations Manual Therapy Neuromuscular Re-education Patient/Caregiver Education Soft Tissue Mobilization Therapeutic Exercises Vestibular Rehabilitation Modalities Cold Pack/Ice Massage Electric Stimulation Hot Packs Ultrasound Next Visit Focus/Plan Next Note Type Treatment Note Next Visit Plan Manual therapy for decreasing spasm, modalities (US, E-stim) .
--- NOTE | 2018-04-26 16:51 | PT.OTN ---
Current Diagnoses Unspecified inflammatory spondylopathy, lumbar region (04/26/18) Physical Therapy Treatment Note PT-OP-A Visit Information Start: 12/21/17 16:51 Freq: Status: Active Protocol: Document 04/26/18 14:30 DCW (Rec: 04/26/18 16:51 DCW [id number]) Out-Patient Physical Therapy Visit Information Visit Information Visit Type Treatment Note Visit Start Time 14:30 Visit Stop Time 15:15 Total Visit Minutes 40 Visit Number 18 Number of WATER PUMPING STATION ENGINEER Visits 0 Evaluation Information Evaluation Date 12/21/17 PT-OP-B Current Condition Start: 12/21/17 16:51 Freq: Status: Active Protocol: Document 03/27/18 14:30 DCW (Rec: 03/27/18 14:43 DCW [id number]) Current Condition Current Functional Impairments (Reported) Functional Limitations- ADL's Pain with standing for 10+ minutes Pain with sitting 30+ minutes Pain disturbs sleep Unable to drive 30+ minutes Functional Limitations- Mobility/Gait Pt reports he must drive from his house to the barn, which is ~100 yards away. 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 Personal Factors Other Personal Factors That May Effect Morbid Obesity, Neuropathy, Therapy/Recovery Phrenic nerve palsy, cervical spinal fusion PT-OP-C Subjective Start: 12/21/17 16:51 Freq: Status: Active Protocol: Document 04/26/18 14:30 DCW (Rec: 04/26/18 16:51 DCW [id number]) OP-PT Subjective Patient Comments Patient Comments Pt reports decreased pain everywhere, but does admit his calves were sore following his last appointment. PT-OP-F Manual Assessment Start: 12/21/17 16:51 Freq: Status: Active Protocol: Document 03/27/18 14:30 DCW (Rec: 03/27/18 14:43 DCW [id number]) Manual Assessments Joint Mobility Assessment Joint Mobility Assessment P->A hypomobility and 3/5 - Wincing and Withdrawal tenderness in L1-L5 and bilateral SI joints PT-OP-J Posture/Palpation/Skin Start: 12/21/17 16:51 Freq: Status: Active Protocol: Document 03/27/18 14:30 DCW (Rec: 03/27/18 14:43 DCW [id number]) Palpation Assessment Location Four Palpation Location Gluteus Max Palpation Findings Soft Tissue Tightness Spasm Muscle Guarding Tenderness Palpation Details Severe Tone and Tenderness 3/5 - Wincing and Withdrawal Three Palpation Location Quadratus Lumborum Palpation Findings Soft Tissue Tightness Spasm Muscle Guarding Tenderness Palpation Details Severe Tone and Tenderness 3/5 - Wincing and Withdrawal Two Palpation Location Piriformis Palpation Findings Soft Tissue Tightness Spasm Muscle Guarding Tenderness Palpation Details Severe Tone and Tenderness 3/5 - Wincing and Withdrawal One Palpation Location Multifidi Palpation Findings Soft Tissue Tightness Spasm Muscle Guarding Tenderness Palpation Details Severe Tone and Tenderness 3/5 - Wincing and Withdrawal PT-OP-K Range of Motion Start: 12/21/17 16:51 Freq: Status: Active Protocol: Document 03/27/18 14:30 DCW (Rec: 03/27/18 14:43 DCW [id number]) Lumbar Spine Range of Motion Lumbar Spine Active Degrees Testing Position Standing Flexion 8 Extension 0 Comments Rotation and Lateral Flexion not tested secondary to pain PT-OP-L Special Tests Start: 12/21/17 16:51 Freq: Status: Active Protocol: Document 03/27/18 14:30 DCW (Rec: 03/27/18 14:43 DCW [id number]) Special Tests Lumbar Spine Special Tests Standing Flexion Test Results Lumbar spine unable to flex more than eight degrees Prone Knee Flexion Test Results Bilateral low back pain Straight Leg Raise Test Results Severe Bilateral pain at 35 degrees Prone Press Up Test Results Complaints of Pain PT-OP-Q Treatments Start: 12/21/17 16:51 Freq: Status: Active Protocol: Document 04/26/18 14:30 DCW (Rec: 04/26/18 16:51 DCW [id number]) Manual Therapy Treatment Soft Tissue Mobilization 5 Body Location Proximal Gastroc heads, bilateral Mobilization Type Myofascial Release Strumming Sustained Pressure Trigger Point Release Intensity/Depth Moderate Body Position Prone 4 Body Location Lumbar Paravetebral Musculature Mobilization Type Cross-Friction Instrument Assisted Rolling Strumming Sustained Pressure Trigger Point Release Intensity/Depth Moderate Body Position Prone 3 Body Location Piriformis Mobilization Type Myofascial Release 2 Body Location Quadratus Lumborum Mobilization Type Myofascial Release Strumming Sustained Pressure Trigger Point Release Intensity/Depth Deep Body Position Prone 1 Body Location Multifidi Mobilization Type Myofascial Release Strumming Sustained Pressure Trigger Point Release Intensity/Depth Moderate Body Position Prone PT-OP-R Modalities Start: 12/21/17 16:51 Freq: Status: Active Protocol: Document 04/26/18 14:30 DCW (Rec: 04/26/18 16:51 DCW [id number]) Ultrasound Therapy Treatment Right Lower Back Treatment Duration (minutes) 5 Patient Position Prone Coupling Medium Ultrasound Gel Frequency Setting (mHz) 1 Mode Setting Continuous Intensity Setting (w/cm2) 1.2 Left Lower Back Treatment Duration (minutes) 5 Patient Position Prone Coupling Medium Ultrasound Gel Frequency Setting (mHz) 1 Mode Setting Continuous Intensity Setting (w/cm2) 1.2 PT-OP-T Assessment and Plan Start: 12/21/17 16:51 Freq: Status: Active Protocol: Document 04/26/18 14:30 DCW (Rec: 04/26/18 16:51 DCW [id number]) Physical Therapy Assessment Impairments Impairments Activity Tolerance Balance Pain Posture ROM Soft Tissue Mobility Tone Goals Six Impairment Activity Tolerance Short Term Goal (STG) Pt to report ability to drive for 60 minutes with no increased pain STG Duration 04/27/18 Mcfp Goal (LTG) Pt to report ability to walk down to his barn from the house (100 yards) with no increased pain LTG Duration 05/27/18 Five Impairment Pain Short Term Goal (STG) Pt to report pain at worst 7/ 10 STG Duration 04/27/18 Mcfp Goal (LTG) Pt to report pain at worst 4/ 10 LTG Duration 05/27/18 Four Impairment SLR Mcfp Goal (LTG) SLR to 50 degrees without increased pain LTG Duration 05/27/18 Three Impairment Joint Mobility Crystal Attacher Goal (LTG) P->A mobility of L1-5 to WNL LTG Duration 05/27/18 Two Impairment Muscle Tone Mcfp Goal (LTG) Multifidi, QL, Glute Max, and Piriformis tone to Mild LTG Duration 05/27/18 One Impairment Palpation Tenderness Crystal Attacher Goal (LTG) Low back tenderness to palpation down to 1/5 - Complaint of pain LTG Duration 05/27/18 Assessment Summary Assessment Pt making excellent progress, significantly reduced tone throughout his low back, but does have some tone in his proximal gastrosoleus complex. Physical Therapy Plan Frequency and Duration Frequency of Treatment 2x/Week Duration of Treatment 12 weeks Plan of Care Start Date 03/27/18 Plan of Care End Date 06/19/18 Therapeutic Interventions Therapeutic Interventions Aquatic Therapy Home Exercise Program Joint Mobilizations Manual Therapy Neuromuscular Re-education Patient/Caregiver Education Soft Tissue Mobilization Therapeutic Exercises Vestibular Rehabilitation Modalities Cold Pack/Ice Massage Electric Stimulation Hot Packs Ultrasound Next Visit Focus/Plan Next Note Type Treatment Note Next Visit Plan Manual therapy for decreasing spasm, modalities (US, E-stim) .
--- NOTE | 2018-05-15 15:18 | PT.OTN ---
Current Diagnoses Unspecified inflammatory spondylopathy, lumbar region (05/15/18) Physical Therapy Treatment Note PT-OP-A Visit Information Start: 12/21/17 16:51 Freq: Status: Active Protocol: Document 05/15/18 14:35 DCW (Rec: 05/15/18 15:18 DCW [id number]) Out-Patient Physical Therapy Visit Information Visit Information Visit Type Treatment Note Visit Start Time 14:35 Visit Stop Time 15:15 Total Visit Minutes 40 Visit Number 19 Number of AUTOMOTIVE ACCESSORY INSTALLER Visits 0 Evaluation Information Evaluation Date 12/21/17 PT-OP-B Current Condition Start: 12/21/17 16:51 Freq: Status: Active Protocol: Document 03/27/18 14:30 DCW (Rec: 03/27/18 14:43 DCW [id number]) Current Condition Current Functional Impairments (Reported) Functional Limitations- ADL's Pain with standing for 10+ minutes Pain with sitting 30+ minutes Pain disturbs sleep Unable to drive 30+ minutes Functional Limitations- Mobility/Gait Pt reports he must drive from his house to the barn, which is ~100 yards away. 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 Personal Factors Other Personal Factors That May Effect Morbid Obesity, Neuropathy, Therapy/Recovery Phrenic nerve palsy, cervical spinal fusion PT-OP-C Subjective Start: 12/21/17 16:51 Freq: Status: Active Protocol: Document 05/15/18 14:35 DCW (Rec: 05/15/18 15:18 DCW [id number]) OP-PT Subjective Patient Comments Patient Comments It's been a living hell between appointments. PT-OP-F Manual Assessment Start: 12/21/17 16:51 Freq: Status: Active Protocol: Document 03/27/18 14:30 DCW (Rec: 03/27/18 14:43 DCW [id number]) Manual Assessments Joint Mobility Assessment Joint Mobility Assessment P->A hypomobility and 3/5 - Wincing and Withdrawal tenderness in L1-L5 and bilateral SI joints PT-OP-J Posture/Palpation/Skin Start: 12/21/17 16:51 Freq: Status: Active Protocol: Document 03/27/18 14:30 DCW (Rec: 03/27/18 14:43 DCW [id number]) Palpation Assessment Location Four Palpation Location Gluteus Max Palpation Findings Soft Tissue Tightness Spasm Muscle Guarding Tenderness Palpation Details Severe Tone and Tenderness 3/5 - Wincing and Withdrawal Three Palpation Location Quadratus Lumborum Palpation Findings Soft Tissue Tightness Spasm Muscle Guarding Tenderness Palpation Details Severe Tone and Tenderness 3/5 - Wincing and Withdrawal Two Palpation Location Piriformis Palpation Findings Soft Tissue Tightness Spasm Muscle Guarding Tenderness Palpation Details Severe Tone and Tenderness 3/5 - Wincing and Withdrawal One Palpation Location Multifidi Palpation Findings Soft Tissue Tightness Spasm Muscle Guarding Tenderness Palpation Details Severe Tone and Tenderness 3/5 - Wincing and Withdrawal PT-OP-K Range of Motion Start: 12/21/17 16:51 Freq: Status: Active Protocol: Document 03/27/18 14:30 DCW (Rec: 03/27/18 14:43 DCW [id number]) Lumbar Spine Range of Motion Lumbar Spine Active Degrees Testing Position Standing Flexion 8 Extension 0 Comments Rotation and Lateral Flexion not tested secondary to pain PT-OP-L Special Tests Start: 12/21/17 16:51 Freq: Status: Active Protocol: Document 03/27/18 14:30 DCW (Rec: 03/27/18 14:43 DCW [id number]) Special Tests Lumbar Spine Special Tests Standing Flexion Test Results Lumbar spine unable to flex more than eight degrees Prone Knee Flexion Test Results Bilateral low back pain Straight Leg Raise Test Results Severe Bilateral pain at 35 degrees Prone Press Up Test Results Complaints of Pain PT-OP-Q Treatments Start: 12/21/17 16:51 Freq: Status: Active Protocol: Document 05/15/18 14:35 DCW (Rec: 05/15/18 15:18 DCW [id number]) Manual Therapy Treatment Soft Tissue Mobilization 5 Body Location Proximal Gastroc heads, bilateral Mobilization Type Myofascial Release Strumming Sustained Pressure Trigger Point Release Intensity/Depth Moderate Body Position Prone 4 Body Location Lumbar Paravetebral Musculature Mobilization Type Cross-Friction Instrument Assisted Rolling Strumming Sustained Pressure Trigger Point Release Intensity/Depth Moderate Body Position Prone 3 Body Location Piriformis Mobilization Type Myofascial Release 2 Body Location Quadratus Lumborum Mobilization Type Myofascial Release Strumming Sustained Pressure Trigger Point Release Intensity/Depth Deep Body Position Prone 1 Body Location Multifidi Mobilization Type Myofascial Release Strumming Sustained Pressure Trigger Point Release Intensity/Depth Moderate Body Position Prone Joint Mobilizations 1 Joint Lumbar 1-5 Direction P->A Grade III Body Position Prone PT-OP-R Modalities Start: 12/21/17 16:51 Freq: Status: Active Protocol: Document 05/15/18 14:35 DCW (Rec: 05/15/18 15:18 DCW [id number]) Ultrasound Therapy Treatment Right Lower Back Treatment Duration (minutes) 5 Patient Position Prone Coupling Medium Ultrasound Gel Frequency Setting (mHz) 1 Mode Setting Continuous Intensity Setting (w/cm2) 1.2 Left Lower Back Treatment Duration (minutes) 5 Patient Position Prone Coupling Medium Ultrasound Gel Frequency Setting (mHz) 1 Mode Setting Continuous Intensity Setting (w/cm2) 1.2 PT-OP-T Assessment and Plan Start: 12/21/17 16:51 Freq: Status: Active Protocol: Document 05/15/18 14:35 DCW (Rec: 05/15/18 15:18 DCW [id number]) Physical Therapy Assessment Impairments Impairments Activity Tolerance Balance Pain Posture ROM Soft Tissue Mobility Tone Goals Six Impairment Activity Tolerance Short Term Goal (STG) Pt to report ability to drive for 60 minutes with no increased pain STG Duration 04/27/18 Building Construction Supervisor Goal (LTG) Pt to report ability to walk down to his barn from the house (100 yards) with no increased pain LTG Duration 05/27/18 Five Impairment Pain Short Term Goal (STG) Pt to report pain at worst 7/ 10 STG Duration 04/27/18 Fci Goal (LTG) Pt to report pain at worst 4/ 10 LTG Duration 05/27/18 Four Impairment SLR Building Construction Supervisor Goal (LTG) SLR to 50 degrees without increased pain LTG Duration 05/27/18 Three Impairment Joint Mobility [facility] Goal (LTG) P->A mobility of L1-5 to WNL LTG Duration 05/27/18 Two Impairment Muscle Tone [facility]ci Goal (LTG) Multifidi, QL, Glute Max, and Piriformis tone to Mild LTG Duration 05/27/18 One Impairment Palpation Tenderness [facility]ci Goal (LTG) Low back tenderness to palpation down to 1/5 - Complaint of pain LTG Duration 05/27/18 Assessment Summary Assessment Despite increased complaints and symptoms today, pt continues to show overall improvement since his initial evaluation. Physical Therapy Plan Frequency and Duration Frequency of Treatment 2x/Week Duration of Treatment 12 weeks Plan of Care Start Date 03/27/18 Plan of Care End Date 06/19/18 Therapeutic Interventions Therapeutic Interventions Aquatic Therapy Home Exercise Program Joint Mobilizations Manual Therapy Neuromuscular Re-education Patient/Caregiver Education Soft Tissue Mobilization Therapeutic Exercises Vestibular Rehabilitation Modalities Cold Pack/Ice Massage Electric Stimulation Hot Packs Ultrasound Next Visit Focus/Plan Next Note Type Treatment Note Next Visit Plan Manual therapy for decreasing spasm, modalities (US, E-stim) .
--- NOTE | 2018-05-17 15:16 | PT.OTN ---
Current Diagnoses Unspecified inflammatory spondylopathy, lumbar region (05/17/18) Physical Therapy Treatment Note PT-OP-A Visit Information Start: 12/21/17 16:51 Freq: Status: Active Protocol: Document 05/17/18 14:30 DCW (Rec: 05/17/18 15:15 DCW [id number]) Out-Patient Physical Therapy Visit Information Visit Information Visit Type Treatment Note Visit Start Time 14:30 Visit Stop Time 15:15 Total Visit Minutes 45 Visit Number 20 Number of PRESCHOOL ADVISER Visits 0 Evaluation Information Evaluation Date 12/21/17 PT-OP-B Current Condition Start: 12/21/17 16:51 Freq: Status: Active Protocol: Document 03/27/18 14:30 DCW (Rec: 03/27/18 14:43 DCW [id number]) Current Condition Current Functional Impairments (Reported) Functional Limitations- ADL's Pain with standing for 10+ minutes Pain with sitting 30+ minutes Pain disturbs sleep Unable to drive 30+ minutes Functional Limitations- Mobility/Gait Pt reports he must drive from his house to the barn, which is ~100 yards away. 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 Personal Factors Other Personal Factors That May Effect Morbid Obesity, Neuropathy, Therapy/Recovery Phrenic nerve palsy, cervical spinal fusion PT-OP-C Subjective Start: 12/21/17 16:51 Freq: Status: Active Protocol: Document 05/17/18 14:30 DCW (Rec: 05/17/18 15:15 DCW [id number]) OP-PT Subjective Patient Comments Patient Comments Some parts are better, some parts are worse. PT-OP-F Manual Assessment Start: 12/21/17 16:51 Freq: Status: Active Protocol: Document 03/27/18 14:30 DCW (Rec: 03/27/18 14:43 DCW [id number]) Manual Assessments Joint Mobility Assessment Joint Mobility Assessment P->A hypomobility and 3/5 - Wincing and Withdrawal tenderness in L1-L5 and bilateral SI joints PT-OP-J Posture/Palpation/Skin Start: 12/21/17 16:51 Freq: Status: Active Protocol: Document 03/27/18 14:30 DCW (Rec: 03/27/18 14:43 DCW [id number]) Palpation Assessment Location Four Palpation Location Gluteus Max Palpation Findings Soft Tissue Tightness Spasm Muscle Guarding Tenderness Palpation Details Severe Tone and Tenderness 3/5 - Wincing and Withdrawal Three Palpation Location Quadratus Lumborum Palpation Findings Soft Tissue Tightness Spasm Muscle Guarding Tenderness Palpation Details Severe Tone and Tenderness 3/5 - Wincing and Withdrawal Two Palpation Location Piriformis Palpation Findings Soft Tissue Tightness Spasm Muscle Guarding Tenderness Palpation Details Severe Tone and Tenderness 3/5 - Wincing and Withdrawal One Palpation Location Multifidi Palpation Findings Soft Tissue Tightness Spasm Muscle Guarding Tenderness Palpation Details Severe Tone and Tenderness 3/5 - Wincing and Withdrawal PT-OP-K Range of Motion Start: 12/21/17 16:51 Freq: Status: Active Protocol: Document 03/27/18 14:30 DCW (Rec: 03/27/18 14:43 DCW [id number]) Lumbar Spine Range of Motion Lumbar Spine Active Degrees Testing Position Standing Flexion 8 Extension 0 Comments Rotation and Lateral Flexion not tested secondary to pain PT-OP-L Special Tests Start: 12/21/17 16:51 Freq: Status: Active Protocol: Document 03/27/18 14:30 DCW (Rec: 03/27/18 14:43 DCW [id number]) Special Tests Lumbar Spine Special Tests Standing Flexion Test Results Lumbar spine unable to flex more than eight degrees Prone Knee Flexion Test Results Bilateral low back pain Straight Leg Raise Test Results Severe Bilateral pain at 35 degrees Prone Press Up Test Results Complaints of Pain PT-OP-Q Treatments Start: 12/21/17 16:51 Freq: Status: Active Protocol: Document 05/17/18 14:30 DCW (Rec: 05/17/18 15:15 DCW [id number]) Manual Therapy Treatment Soft Tissue Mobilization 5 Body Location Proximal Gastroc heads, bilateral Mobilization Type Myofascial Release Strumming Sustained Pressure Trigger Point Release Intensity/Depth Moderate Body Position Prone 4 Body Location Lumbar Paravetebral Musculature Mobilization Type Cross-Friction Instrument Assisted Rolling Strumming Sustained Pressure Trigger Point Release Intensity/Depth Moderate Body Position Prone 3 Body Location Piriformis Mobilization Type Myofascial Release 2 Body Location Quadratus Lumborum Mobilization Type Myofascial Release Strumming Sustained Pressure Trigger Point Release Intensity/Depth Deep Body Position Prone 1 Body Location Multifidi Mobilization Type Myofascial Release Strumming Sustained Pressure Trigger Point Release Intensity/Depth Moderate Body Position Prone Joint Mobilizations 1 Joint Lumbar 1-5 Direction P->A Grade III Body Position Prone PT-OP-R Modalities Start: 12/21/17 16:51 Freq: Status: Active Protocol: Document 05/17/18 14:30 DCW (Rec: 05/17/18 15:15 DCW [id number]) Ultrasound Therapy Treatment Right Lower Back Treatment Duration (minutes) 5 Patient Position Prone Coupling Medium Ultrasound Gel Frequency Setting (mHz) 1 Mode Setting Continuous Intensity Setting (w/cm2) 1.2 Left Lower Back Treatment Duration (minutes) 5 Patient Position Prone Coupling Medium Ultrasound Gel Frequency Setting (mHz) 1 Mode Setting Continuous Intensity Setting (w/cm2) 1.2 PT-OP-T Assessment and Plan Start: 12/21/17 16:51 Freq: Status: Active Protocol: Document 05/17/18 14:30 DCW (Rec: 05/17/18 15:15 DCW [id number]) Physical Therapy Assessment Impairments Impairments Activity Tolerance Balance Pain Posture ROM Soft Tissue Mobility Tone Goals Six Impairment Activity Tolerance Short Term Goal (STG) Pt to report ability to drive for 60 minutes with no increased pain STG Duration 04/27/18 Sql Engineer Goal (LTG) Pt to report ability to walk down to his barn from the house (100 yards) with no increased pain LTG Duration 05/27/18 Five Impairment Pain Short Term Goal (STG) Pt to report pain at worst 7/ 10 STG Duration 04/27/18 Sql Engineer Goal (LTG) Pt to report pain at worst 4/ 10 LTG Duration 05/27/18 Four Impairment SLR Sql Engineer Goal (LTG) SLR to 50 degrees without increased pain LTG Duration 05/27/18 Three Impairment Joint Mobility Sql Engineer Goal (LTG) P->A mobility of L1-5 to WNL LTG Duration 05/27/18 Two Impairment Muscle Tone Sql Engineer Goal (LTG) Multifidi, QL, Glute Max, and Piriformis tone to Mild LTG Duration 05/27/18 One Impairment Palpation Tenderness Sql Engineer Goal (LTG) Low back tenderness to palpation down to 1/5 - Complaint of pain LTG Duration 05/27/18 Assessment Summary Assessment Pt doing well today, displayed decreased tone throughout lumbar paraspinals. Physical Therapy Plan Frequency and Duration Frequency of Treatment 2x/Week Duration of Treatment 12 weeks Plan of Care Start Date 03/27/18 Plan of Care End Date 11/14/18 Therapeutic Interventions Therapeutic Interventions Aquatic Therapy Home Exercise Program Joint Mobilizations Manual Therapy Neuromuscular Re-education Patient/Caregiver Education Soft Tissue Mobilization Therapeutic Exercises Vestibular Rehabilitation Modalities Cold Pack/Ice Massage Electric Stimulation Hot Packs Ultrasound Next Visit Focus/Plan Next Note Type Treatment Note Next Visit Plan Manual therapy for decreasing spasm, modalities (US, E-stim) .
--- NOTE | 2018-05-21 12:54 | PT.OTN ---
Current Diagnoses Unspecified inflammatory spondylopathy, lumbar region (05/21/18) Physical Therapy Treatment Note PT-OP-A Visit Information Start: 12/21/17 16:51 Freq: Status: Active Protocol: Document 05/21/18 12:10 DCW (Rec: 05/21/18 12:54 DCW [id number]) Out-Patient Physical Therapy Visit Information Visit Information Visit Type Treatment Note Visit Start Time 12:10 Visit Stop Time 12:50 Total Visit Minutes 40 Visit Number 21 Number of AGRISCIENCE TECHNOLOGY INSTRUCTOR Visits 0 Evaluation Information Evaluation Date 12/21/17 PT-OP-B Current Condition Start: 12/21/17 16:51 Freq: Status: Active Protocol: Document 03/27/18 14:30 DCW (Rec: 03/27/18 14:43 DCW [id number]) Current Condition Current Functional Impairments (Reported) Functional Limitations- ADL's Pain with standing for 10+ minutes Pain with sitting 30+ minutes Pain disturbs sleep Unable to drive 30+ minutes Functional Limitations- Mobility/Gait Pt reports he must drive from his house to the barn, which is ~100 yards away. 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 Personal Factors Other Personal Factors That May Effect Morbid Obesity, Neuropathy, Therapy/Recovery Phrenic nerve palsy, cervical spinal fusion PT-OP-C Subjective Start: 12/21/17 16:51 Freq: Status: Active Protocol: Document 05/21/18 12:10 DCW (Rec: 05/21/18 12:54 DCW [id number]) OP-PT Subjective Patient Comments Patient Comments Lots of pain today, mainly in his knee. Pt notes his back feels like it has loosened up quite a bit. PT-OP-F Manual Assessment Start: 12/21/17 16:51 Freq: Status: Active Protocol: Document 03/27/18 14:30 DCW (Rec: 03/27/18 14:43 DCW [id number]) Manual Assessments Joint Mobility Assessment Joint Mobility Assessment P->A hypomobility and 3/5 - Wincing and Withdrawal tenderness in L1-L5 and bilateral SI joints PT-OP-J Posture/Palpation/Skin Start: 12/21/17 16:51 Freq: Status: Active Protocol: Document 03/27/18 14:30 DCW (Rec: 03/27/18 14:43 DCW [id number]) Palpation Assessment Location Four Palpation Location Gluteus Max Palpation Findings Soft Tissue Tightness Spasm Muscle Guarding Tenderness Palpation Details Severe Tone and Tenderness 3/5 - Wincing and Withdrawal Three Palpation Location Quadratus Lumborum Palpation Findings Soft Tissue Tightness Spasm Muscle Guarding Tenderness Palpation Details Severe Tone and Tenderness 3/5 - Wincing and Withdrawal Two Palpation Location Piriformis Palpation Findings Soft Tissue Tightness Spasm Muscle Guarding Tenderness Palpation Details Severe Tone and Tenderness 3/5 - Wincing and Withdrawal One Palpation Location Multifidi Palpation Findings Soft Tissue Tightness Spasm Muscle Guarding Tenderness Palpation Details Severe Tone and Tenderness 3/5 - Wincing and Withdrawal PT-OP-K Range of Motion Start: 12/21/17 16:51 Freq: Status: Active Protocol: Document 03/27/18 14:30 DCW (Rec: 03/27/18 14:43 DCW [id number]) Lumbar Spine Range of Motion Lumbar Spine Active Degrees Testing Position Standing Flexion 8 Extension 0 Comments Rotation and Lateral Flexion not tested secondary to pain PT-OP-L Special Tests Start: 12/21/17 16:51 Freq: Status: Active Protocol: Document 03/27/18 14:30 DCW (Rec: 03/27/18 14:43 DCW [id number]) Special Tests Lumbar Spine Special Tests Standing Flexion Test Results Lumbar spine unable to flex more than eight degrees Prone Knee Flexion Test Results Bilateral low back pain Straight Leg Raise Test Results Severe Bilateral pain at 35 degrees Prone Press Up Test Results Complaints of Pain PT-OP-Q Treatments Start: 12/21/17 16:51 Freq: Status: Active Protocol: Document 05/21/18 12:10 DCW (Rec: 05/21/18 12:54 DCW [id number]) Manual Therapy Treatment Soft Tissue Mobilization 5 Body Location Proximal Gastroc heads, bilateral Mobilization Type Myofascial Release Strumming Sustained Pressure Trigger Point Release Intensity/Depth Moderate Body Position Prone 4 Body Location Lumbar Paravetebral Musculature Mobilization Type Cross-Friction Instrument Assisted Rolling Strumming Sustained Pressure Trigger Point Release Intensity/Depth Moderate Body Position Prone 3 Body Location Piriformis Mobilization Type Myofascial Release 2 Body Location Quadratus Lumborum Mobilization Type Myofascial Release Strumming Sustained Pressure Trigger Point Release Intensity/Depth Deep Body Position Prone 1 Body Location Multifidi Mobilization Type Myofascial Release Strumming Sustained Pressure Trigger Point Release Intensity/Depth Moderate Body Position Prone Joint Mobilizations 1 Joint Lumbar 1-5 Direction P->A Grade III Body Position Prone PT-OP-R Modalities Start: 12/21/17 16:51 Freq: Status: Active Protocol: Document 05/21/18 12:10 DCW (Rec: 05/21/18 12:54 DCW [id number]) Ultrasound Therapy Treatment Right Lower Back Treatment Duration (minutes) 5 Patient Position Prone Coupling Medium Ultrasound Gel Frequency Setting (mHz) 1 Mode Setting Continuous Intensity Setting (w/cm2) 1.2 Left Lower Back Treatment Duration (minutes) 5 Patient Position Prone Coupling Medium Ultrasound Gel Frequency Setting (mHz) 1 Mode Setting Continuous Intensity Setting (w/cm2) 1.2 PT-OP-T Assessment and Plan Start: 12/21/17 16:51 Freq: Status: Active Protocol: Document 05/21/18 12:10 DCW (Rec: 05/21/18 12:54 DCW [id number]) Physical Therapy Assessment Impairments Impairments Activity Tolerance Balance Pain Posture ROM Soft Tissue Mobility Tone Goals Six Impairment Activity Tolerance Short Term Goal (STG) Pt to report ability to drive for 60 minutes with no increased pain STG Duration 04/27/18 Solidworks Drafter Goal (LTG) Pt to report ability to walk down to his barn from the house (100 yards) with no increased pain LTG Duration 05/27/18 Five Impairment Pain Short Term Goal (STG) Pt to report pain at worst 7/ 10 STG Duration 04/27/18 Solidworks Drafter Goal (LTG) Pt to report pain at worst 4/ 10 LTG Duration 05/27/18 Four Impairment SLR Intermediate Goal (LTG) SLR to 50 degrees without increased pain LTG Duration 05/27/18 Three Impairment Joint Mobility Solidworks Drafter Goal (LTG) P->A mobility of L1-5 to WNL LTG Duration 05/27/18 Two Impairment Muscle Tone Solidworks Drafter Goal (LTG) Multifidi, QL, Glute Max, and Piriformis tone to Mild LTG Duration 05/27/18 One Impairment Palpation Tenderness Intermediate Goal (LTG) Low back tenderness to palpation down to 1/5 - Complaint of pain LTG Duration 05/27/18 Assessment Summary Assessment A brief assessment of pt's knee showed appropriate stability, but point specific pain along his medial joint line may indicate an MCL sprain or meniscus involvement . Recommended pt get a brace for support, and if his knee continues to bother him, he should follow-up with his physician. Physical Therapy Plan Frequency and Duration Frequency of Treatment 2x/Week Duration of Treatment 12 weeks Plan of Care Start Date 03/27/18 Plan of Care End Date 06/19/18 Therapeutic Interventions Therapeutic Interventions Aquatic Therapy Home Exercise Program Joint Mobilizations Manual Therapy Neuromuscular Re-education Patient/Caregiver Education Soft Tissue Mobilization Therapeutic Exercises Vestibular Rehabilitation Modalities Cold Pack/Ice Massage Electric Stimulation Hot Packs Ultrasound Next Visit Focus/Plan Next Note Type Treatment Note Next Visit Plan Manual therapy for decreasing spasm, modalities (US, E-stim) .
--- NOTE | 2018-05-24 15:54 | PT.OTN ---
Current Diagnoses Unspecified inflammatory spondylopathy, lumbar region (05/24/18) Physical Therapy Treatment Note PT-OP-A Visit Information Start: 12/21/17 16:51 Freq: Status: Active Protocol: Document 05/21/18 12:10 DCW (Rec: 05/21/18 12:54 DCW [id number]) Out-Patient Physical Therapy Visit Information Visit Information Visit Type Treatment Note Visit Start Time 12:10 Visit Stop Time 12:50 Total Visit Minutes 40 Visit Number 21 Number of EQUIPMENT OPERATION INSTRUCTOR Visits 0 Evaluation Information Evaluation Date 12/21/17 PT-OP-B Current Condition Start: 12/21/17 16:51 Freq: Status: Active Protocol: Document 03/27/18 14:30 DCW (Rec: 03/27/18 14:43 DCW [id number]) Current Condition Current Functional Impairments (Reported) Functional Limitations- ADL's Pain with standing for 10+ minutes Pain with sitting 30+ minutes Pain disturbs sleep Unable to drive 30+ minutes Functional Limitations- Mobility/Gait Pt reports he must drive from his house to the barn, which is ~100 yards away. 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 Personal Factors Other Personal Factors That May Effect Morbid Obesity, Neuropathy, Therapy/Recovery Phrenic nerve palsy, cervical spinal fusion PT-OP-C Subjective Start: 12/21/17 16:51 Freq: Status: Active Protocol: Document 05/24/18 15:46 SA (Rec: 05/24/18 15:52 SA [id number]) OP-PT Subjective Patient Comments Patient Comments My knee still bothering me, My back is a litte better but needs to be worked on. PT-OP-F Manual Assessment Start: 12/21/17 16:51 Freq: Status: Active Protocol: Document 03/27/18 14:30 DCW (Rec: 03/27/18 14:43 DCW [id number]) Manual Assessments Joint Mobility Assessment Joint Mobility Assessment P->A hypomobility and 3/5 - Wincing and Withdrawal tenderness in L1-L5 and bilateral SI joints PT-OP-J Posture/Palpation/Skin Start: 12/21/17 16:51 Freq: Status: Active Protocol: Document 03/27/18 14:30 DCW (Rec: 03/27/18 14:43 DCW [id number]) Palpation Assessment Location Four Palpation Location Gluteus Max Palpation Findings Soft Tissue Tightness Spasm Muscle Guarding Tenderness Palpation Details Severe Tone and Tenderness 3/5 - Wincing and Withdrawal Three Palpation Location Quadratus Lumborum Palpation Findings Soft Tissue Tightness Spasm Muscle Guarding Tenderness Palpation Details Severe Tone and Tenderness 3/5 - Wincing and Withdrawal Two Palpation Location Piriformis Palpation Findings Soft Tissue Tightness Spasm Muscle Guarding Tenderness Palpation Details Severe Tone and Tenderness 3/5 - Wincing and Withdrawal One Palpation Location Multifidi Palpation Findings Soft Tissue Tightness Spasm Muscle Guarding Tenderness Palpation Details Severe Tone and Tenderness 3/5 - Wincing and Withdrawal PT-OP-K Range of Motion Start: 12/21/17 16:51 Freq: Status: Active Protocol: Document 03/27/18 14:30 DCW (Rec: 03/27/18 14:43 DCW [id number]) Lumbar Spine Range of Motion Lumbar Spine Active Degrees Testing Position Standing Flexion 8 Extension 0 Comments Rotation and Lateral Flexion not tested secondary to pain PT-OP-L Special Tests Start: 12/21/17 16:51 Freq: Status: Active Protocol: Document 03/27/18 14:30 DCW (Rec: 03/27/18 14:43 DCW [id number]) Special Tests Lumbar Spine Special Tests Standing Flexion Test Results Lumbar spine unable to flex more than eight degrees Prone Knee Flexion Test Results Bilateral low back pain Straight Leg Raise Test Results Severe Bilateral pain at 35 degrees Prone Press Up Test Results Complaints of Pain PT-OP-Q Treatments Start: 12/21/17 16:51 Freq: Status: Active Protocol: Document 05/24/18 15:46 SA (Rec: 05/24/18 15:52 SA [id number]) Manual Therapy Treatment Soft Tissue Mobilization 5 Body Location Proximal Gastroc heads, bilateral Mobilization Type Myofascial Release Strumming Sustained Pressure Trigger Point Release Intensity/Depth Moderate Body Position Prone 4 Body Location Lumbar Paravetebral Musculature Mobilization Type Cross-Friction Instrument Assisted Rolling Strumming Sustained Pressure Trigger Point Release Intensity/Depth Moderate Body Position Prone 3 Body Location Piriformis Mobilization Type Myofascial Release 2 Body Location Quadratus Lumborum Mobilization Type Myofascial Release Strumming Sustained Pressure Trigger Point Release Intensity/Depth Deep Body Position Prone 1 Body Location Multifidi Mobilization Type Myofascial Release Strumming Sustained Pressure Trigger Point Release Intensity/Depth Moderate Body Position Prone Joint Mobilizations 1 Joint Lumbar 1-5 Direction P->A Grade III Body Position Prone PT-OP-R Modalities Start: 12/21/17 16:51 Freq: Status: Active Protocol: Document 05/24/18 15:46 SA (Rec: 05/24/18 15:52 SA [id number]) Ultrasound Therapy Treatment Right Lower Back Treatment Duration (minutes) 5 Patient Position Prone Coupling Medium Ultrasound Gel Frequency Setting (mHz) 1 Mode Setting Continuous Intensity Setting (w/cm2) 1.2 Left Lower Back Treatment Duration (minutes) 5 Patient Position Prone Coupling Medium Ultrasound Gel Frequency Setting (mHz) 1 Mode Setting Continuous Intensity Setting (w/cm2) 1.2 PT-OP-T Assessment and Plan Start: 12/21/17 16:51 Freq: Status: Active Protocol: Document 05/24/18 15:52 SA (Rec: 05/24/18 15:54 SA [email or web address]) Physical Therapy Assessment Rehab Potential Rehabilitation Potential Good Assessment Summary Assessment STM/US providing LBP relief, suggested ice massage to L medial knee as it is quite point tender.
--- NOTE | 2018-05-28 15:50 | PT.OTN ---
Current Diagnoses Unspecified inflammatory spondylopathy, lumbar region (05/28/18) Physical Therapy Treatment Note PT-OP-A Visit Information Start: 12/21/17 16:51 Freq: Status: Active Protocol: Document 05/21/18 12:10 DCW (Rec: 05/21/18 12:54 DCW [id number]) Out-Patient Physical Therapy Visit Information Visit Information Visit Type Treatment Note Visit Start Time 12:10 Visit Stop Time 12:50 Total Visit Minutes 40 Visit Number 21 Number of PEST LOCATOR Visits 0 Evaluation Information Evaluation Date 12/21/17 PT-OP-B Current Condition Start: 12/21/17 16:51 Freq: Status: Active Protocol: Document 03/27/18 14:30 DCW (Rec: 03/27/18 14:43 DCW [id number]) Current Condition Current Functional Impairments (Reported) Functional Limitations- ADL's Pain with standing for 10+ minutes Pain with sitting 30+ minutes Pain disturbs sleep Unable to drive 30+ minutes Functional Limitations- Mobility/Gait Pt reports he must drive from his house to the barn, which is ~100 yards away. 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 Personal Factors Other Personal Factors That May Effect Morbid Obesity, Neuropathy, Therapy/Recovery Phrenic nerve palsy, cervical spinal fusion PT-OP-C Subjective Start: 12/21/17 16:51 Freq: Status: Active Protocol: Document 05/28/18 15:40 SA (Rec: 05/28/18 15:50 SA [email or web address]) OP-PT Subjective Patient Comments Patient Comments My knee is worse than my back today. I felt pretty good after last treatment and feel terrible now. OP-PT Pain Assessment Location Bilateral Lower Back Pain Location Details L knee Intensity 6 Scale Used Numeric (1 - 10) Comments Pain Comments Pt states knee is getting worse. PT-OP-F Manual Assessment Start: 12/21/17 16:51 Freq: Status: Active Protocol: Document 03/27/18 14:30 DCW (Rec: 03/27/18 14:43 DCW [id number]) Manual Assessments Joint Mobility Assessment Joint Mobility Assessment P->A hypomobility and 3/5 - Wincing and Withdrawal tenderness in L1-L5 and bilateral SI joints PT-OP-J Posture/Palpation/Skin Start: 12/21/17 16:51 Freq: Status: Active Protocol: Document 03/27/18 14:30 DCW (Rec: 03/27/18 14:43 DCW [id number]) Palpation Assessment Location Four Palpation Location Gluteus Max Palpation Findings Soft Tissue Tightness Spasm Muscle Guarding Tenderness Palpation Details Severe Tone and Tenderness 3/5 - Wincing and Withdrawal Three Palpation Location Quadratus Lumborum Palpation Findings Soft Tissue Tightness Spasm Muscle Guarding Tenderness Palpation Details Severe Tone and Tenderness 3/5 - Wincing and Withdrawal Two Palpation Location Piriformis Palpation Findings Soft Tissue Tightness Spasm Muscle Guarding Tenderness Palpation Details Severe Tone and Tenderness 3/5 - Wincing and Withdrawal One Palpation Location Multifidi Palpation Findings Soft Tissue Tightness Spasm Muscle Guarding Tenderness Palpation Details Severe Tone and Tenderness 3/5 - Wincing and Withdrawal PT-OP-K Range of Motion Start: 12/21/17 16:51 Freq: Status: Active Protocol: Document 03/27/18 14:30 DCW (Rec: 03/27/18 14:43 DCW [id number]) Lumbar Spine Range of Motion Lumbar Spine Active Degrees Testing Position Standing Flexion 8 Extension 0 Comments Rotation and Lateral Flexion not tested secondary to pain PT-OP-L Special Tests Start: 12/21/17 16:51 Freq: Status: Active Protocol: Document 03/27/18 14:30 DCW (Rec: 03/27/18 14:43 DCW [id number]) Special Tests Lumbar Spine Special Tests Standing Flexion Test Results Lumbar spine unable to flex more than eight degrees Prone Knee Flexion Test Results Bilateral low back pain Straight Leg Raise Test Results Severe Bilateral pain at 35 degrees Prone Press Up Test Results Complaints of Pain PT-OP-Q Treatments Start: 12/21/17 16:51 Freq: Status: Active Protocol: Document 05/28/18 15:40 SA (Rec: 05/28/18 15:50 SA [email or web address]) Manual Therapy Treatment Soft Tissue Mobilization 5 Body Location Proximal Gastroc heads, bilateral Mobilization Type Myofascial Release Strumming Sustained Pressure Trigger Point Release Intensity/Depth Moderate Body Position Prone 4 Body Location Lumbar Paravetebral Musculature Mobilization Type Cross-Friction Instrument Assisted Rolling Strumming Sustained Pressure Trigger Point Release Intensity/Depth Moderate Body Position Prone 3 Body Location Piriformis Mobilization Type Myofascial Release 2 Body Location Quadratus Lumborum Mobilization Type Myofascial Release Strumming Sustained Pressure Trigger Point Release Intensity/Depth Deep Body Position Prone 1 Body Location Multifidi Mobilization Type Myofascial Release Strumming Sustained Pressure Trigger Point Release Intensity/Depth Moderate Body Position Prone Joint Mobilizations 1 Joint Lumbar 1-5 Direction P->A Grade III Body Position Prone PT-OP-R Modalities Start: 12/21/17 16:51 Freq: Status: Active Protocol: Document 05/28/18 15:40 SA (Rec: 05/28/18 15:50 SA [id number]) Electric Stimulation Electric Stimulation IFC Body Location L knee Duration (Minutes) 15 Target/Sweep Sweep Patient Position Sitting Combined With Heat/Cold Cold Pack Comments Pt tolerated well in seated position for pain management. PT-OP-T Assessment and Plan Start: 12/21/17 16:51 Freq: Status: Active Protocol: Document 05/28/18 15:40 SA (Rec: 05/28/18 15:50 SA [email or web address]) Physical Therapy Assessment Assessment Summary Assessment Pt continues to have significant pain and gets temporary relief from manual therapy techniques. Tolerates driving for 35 min fairly well . Physical Therapy Plan Next Visit Focus/Plan Next Note Type Treatment Note Next Visit Plan Assess response to E-stim to L knee, continue with manual therapy techniques for back pain management.
--- NOTE | 2018-06-07 16:51 | PT.OTN ---
Current Diagnoses Unspecified inflammatory spondylopathy, lumbar region (06/07/18) Physical Therapy Treatment Note PT-OP-A Visit Information Start: 12/21/17 16:51 Freq: Status: Active Protocol: Document 06/07/18 15:15 DCW (Rec: 06/07/18 16:51 DCW [id number]) Out-Patient Physical Therapy Visit Information Visit Information Visit Type Treatment Note Visit Start Time 15:15 Visit Stop Time 16:00 Total Visit Minutes 45 Visit Number 22 Number of PAY STATION DEPARTMENT MANAGER Visits 0 Evaluation Information Evaluation Date 12/21/17 PT-OP-B Current Condition Start: 12/21/17 16:51 Freq: Status: Active Protocol: Document 03/27/18 14:30 DCW (Rec: 03/27/18 14:43 DCW [id number]) Current Condition Current Functional Impairments (Reported) Functional Limitations- ADL's Pain with standing for 10+ minutes Pain with sitting 30+ minutes Pain disturbs sleep Unable to drive 30+ minutes Functional Limitations- Mobility/Gait Pt reports he must drive from his house to the barn, which is ~100 yards away. 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 Personal Factors Other Personal Factors That May Effect Morbid Obesity, Neuropathy, Therapy/Recovery Phrenic nerve palsy, cervical spinal fusion PT-OP-C Subjective Start: 12/21/17 16:51 Freq: Status: Active Protocol: Document 06/07/18 15:15 DCW (Rec: 06/07/18 16:51 DCW [id number]) OP-PT Subjective Patient Comments Patient Comments Pt reports he is hurting after missing his appointment last week. PT-OP-F Manual Assessment Start: 12/21/17 16:51 Freq: Status: Active Protocol: Document 03/27/18 14:30 DCW (Rec: 03/27/18 14:43 DCW [id number]) Manual Assessments Joint Mobility Assessment Joint Mobility Assessment P->A hypomobility and 3/5 - Wincing and Withdrawal tenderness in L1-L5 and bilateral SI joints PT-OP-J Posture/Palpation/Skin Start: 12/21/17 16:51 Freq: Status: Active Protocol: Document 03/27/18 14:30 DCW (Rec: 03/27/18 14:43 DCW [id number]) Palpation Assessment Location Four Palpation Location Gluteus Max Palpation Findings Soft Tissue Tightness Spasm Muscle Guarding Tenderness Palpation Details Severe Tone and Tenderness 3/5 - Wincing and Withdrawal Three Palpation Location Quadratus Lumborum Palpation Findings Soft Tissue Tightness Spasm Muscle Guarding Tenderness Palpation Details Severe Tone and Tenderness 3/5 - Wincing and Withdrawal Two Palpation Location Piriformis Palpation Findings Soft Tissue Tightness Spasm Muscle Guarding Tenderness Palpation Details Severe Tone and Tenderness 3/5 - Wincing and Withdrawal One Palpation Location Multifidi Palpation Findings Soft Tissue Tightness Spasm Muscle Guarding Tenderness Palpation Details Severe Tone and Tenderness 3/5 - Wincing and Withdrawal PT-OP-K Range of Motion Start: 12/21/17 16:51 Freq: Status: Active Protocol: Document 03/27/18 14:30 DCW (Rec: 03/27/18 14:43 DCW [id number]) Lumbar Spine Range of Motion Lumbar Spine Active Degrees Testing Position Standing Flexion 8 Extension 0 Comments Rotation and Lateral Flexion not tested secondary to pain PT-OP-L Special Tests Start: 12/21/17 16:51 Freq: Status: Active Protocol: Document 03/27/18 14:30 DCW (Rec: 03/27/18 14:43 DCW [id number]) Special Tests Lumbar Spine Special Tests Standing Flexion Test Results Lumbar spine unable to flex more than eight degrees Prone Knee Flexion Test Results Bilateral low back pain Straight Leg Raise Test Results Severe Bilateral pain at 35 degrees Prone Press Up Test Results Complaints of Pain PT-OP-Q Treatments Start: 12/21/17 16:51 Freq: Status: Active Protocol: Document 06/07/18 15:15 DCW (Rec: 06/07/18 16:51 DCW [id number]) Manual Therapy Treatment Soft Tissue Mobilization 5 Body Location Proximal Gastroc heads, bilateral Mobilization Type Myofascial Release Strumming Sustained Pressure Trigger Point Release Intensity/Depth Moderate Body Position Prone 4 Body Location Lumbar Paravetebral Musculature Mobilization Type Cross-Friction Instrument Assisted Rolling Strumming Sustained Pressure Trigger Point Release Intensity/Depth Moderate Body Position Prone 3 Body Location Piriformis Mobilization Type Myofascial Release 2 Body Location Quadratus Lumborum Mobilization Type Myofascial Release Strumming Sustained Pressure Trigger Point Release Intensity/Depth Deep Body Position Prone 1 Body Location Multifidi Mobilization Type Myofascial Release Strumming Sustained Pressure Trigger Point Release Intensity/Depth Moderate Body Position Prone Joint Mobilizations 1 Joint Lumbar 1-5 Direction P->A Grade III Body Position Prone PT-OP-R Modalities Start: 12/21/17 16:51 Freq: Status: Active Protocol: Document 06/07/18 15:15 DCW (Rec: 06/07/18 16:51 DCW [id number]) Ultrasound Therapy Treatment Right Lower Back Treatment Duration (minutes) 5 Patient Position Prone Coupling Medium Ultrasound Gel Frequency Setting (mHz) 1 Mode Setting Continuous Intensity Setting (w/cm2) 1.2 Left Lower Back Treatment Duration (minutes) 5 Patient Position Prone Coupling Medium Ultrasound Gel Frequency Setting (mHz) 1 Mode Setting Continuous Intensity Setting (w/cm2) 1.2 PT-OP-T Assessment and Plan Start: 12/21/17 16:51 Freq: Status: Active Protocol: Document 06/07/18 15:15 DCW (Rec: 06/07/18 16:51 DCW [id number]) Physical Therapy Assessment Impairments Impairments Activity Tolerance Balance Pain Posture ROM Soft Tissue Mobility Tone Goals Six Impairment Activity Tolerance Short Term Goal (STG) Pt to report ability to drive for 60 minutes with no increased pain STG Duration 04/27/18 Alf Goal (LTG) Pt to report ability to walk down to his barn from the house (100 yards) with no increased pain LTG Duration 05/27/18 Five Impairment Pain Short Term Goal (STG) Pt to report pain at worst 7/ 10 STG Duration 04/27/18 Workers Compensation Attorney Goal (LTG) Pt to report pain at worst 4/ 10 LTG Duration 05/27/18 Four Impairment SLR Workers Compensation Attorney Goal (LTG) SLR to 50 degrees without increased pain LTG Duration 05/27/18 Three Impairment Joint Mobility Workers Compensation Attorney Goal (LTG) P->A mobility of L1-5 to WNL LTG Duration 05/27/18 Two Impairment Muscle Tone Alf Goal (LTG) Multifidi, QL, Glute Max, and Piriformis tone to Mild LTG Duration 05/27/18 One Impairment Palpation Tenderness Workers Compensation Attorney Goal (LTG) Low back tenderness to palpation down to 1/5 - Complaint of pain LTG Duration 05/27/18 Assessment Summary Assessment Pt making slight improvements with back, but was ambulating with increased antalgia today, particularly when first getting up from sitting in waiting room. Physical Therapy Plan Frequency and Duration Frequency of Treatment 2x/Week Duration of Treatment 12 weeks Plan of Care Start Date 03/27/18 Plan of Care End Date 06/19/18 Therapeutic Interventions Therapeutic Interventions Aquatic Therapy Home Exercise Program Joint Mobilizations Manual Therapy Neuromuscular Re-education Patient/Caregiver Education Soft Tissue Mobilization Therapeutic Exercises Vestibular Rehabilitation Modalities Cold Pack/Ice Massage Electric Stimulation Hot Packs Ultrasound Next Visit Focus/Plan Next Note Type Treatment Note Next Visit Plan Manual therapy for decreasing spasm, modalities (US, E-stim) .
--- NOTE | 2018-06-11 15:59 | PT.OTN ---
Current Diagnoses Unspecified inflammatory spondylopathy, lumbar region (06/11/18) Physical Therapy Treatment Note PT-OP-A Visit Information Start: 12/21/17 16:51 Freq: Status: Active Protocol: Document 06/11/18 14:30 DCW (Rec: 06/11/18 15:59 DCW [id number]) Out-Patient Physical Therapy Visit Information Visit Information Visit Type Treatment Note Visit Start Time 14:30 Visit Stop Time 15:15 Total Visit Minutes 45 Visit Number 23 Number of DEBEADER Visits 0 Evaluation Information Evaluation Date 12/21/17 PT-OP-B Current Condition Start: 12/21/17 16:51 Freq: Status: Active Protocol: Document 03/27/18 14:30 DCW (Rec: 03/27/18 14:43 DCW [id number]) Current Condition Current Functional Impairments (Reported) Functional Limitations- ADL's Pain with standing for 10+ minutes Pain with sitting 30+ minutes Pain disturbs sleep Unable to drive 30+ minutes Functional Limitations- Mobility/Gait Pt reports he must drive from his house to the barn, which is ~100 yards away. 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 Personal Factors Other Personal Factors That May Effect Morbid Obesity, Neuropathy, Therapy/Recovery Phrenic nerve palsy, cervical spinal fusion PT-OP-C Subjective Start: 12/21/17 16:51 Freq: Status: Active Protocol: Document 06/11/18 14:30 DCW (Rec: 06/11/18 15:59 DCW [id number]) OP-PT Subjective Patient Comments Patient Comments Pt admits he slipped on some dirt this weekend and twisted up my knee, but overall he actually feels pretty good. PT-OP-F Manual Assessment Start: 12/21/17 16:51 Freq: Status: Active Protocol: Document 03/27/18 14:30 DCW (Rec: 03/27/18 14:43 DCW [id number]) Manual Assessments Joint Mobility Assessment Joint Mobility Assessment P->A hypomobility and 3/5 - Wincing and Withdrawal tenderness in L1-L5 and bilateral SI joints PT-OP-J Posture/Palpation/Skin Start: 12/21/17 16:51 Freq: Status: Active Protocol: Document 03/27/18 14:30 DCW (Rec: 03/27/18 14:43 DCW [id number]) Palpation Assessment Location Four Palpation Location Gluteus Max Palpation Findings Soft Tissue Tightness Spasm Muscle Guarding Tenderness Palpation Details Severe Tone and Tenderness 3/5 - Wincing and Withdrawal Three Palpation Location Quadratus Lumborum Palpation Findings Soft Tissue Tightness Spasm Muscle Guarding Tenderness Palpation Details Severe Tone and Tenderness 3/5 - Wincing and Withdrawal Two Palpation Location Piriformis Palpation Findings Soft Tissue Tightness Spasm Muscle Guarding Tenderness Palpation Details Severe Tone and Tenderness 3/5 - Wincing and Withdrawal One Palpation Location Multifidi Palpation Findings Soft Tissue Tightness Spasm Muscle Guarding Tenderness Palpation Details Severe Tone and Tenderness 3/5 - Wincing and Withdrawal PT-OP-K Range of Motion Start: 12/21/17 16:51 Freq: Status: Active Protocol: Document 03/27/18 14:30 DCW (Rec: 03/27/18 14:43 DCW [id number]) Lumbar Spine Range of Motion Lumbar Spine Active Degrees Testing Position Standing Flexion 8 Extension 0 Comments Rotation and Lateral Flexion not tested secondary to pain PT-OP-L Special Tests Start: 12/21/17 16:51 Freq: Status: Active Protocol: Document 03/27/18 14:30 DCW (Rec: 03/27/18 14:43 DCW [id number]) Special Tests Lumbar Spine Special Tests Standing Flexion Test Results Lumbar spine unable to flex more than eight degrees Prone Knee Flexion Test Results Bilateral low back pain Straight Leg Raise Test Results Severe Bilateral pain at 35 degrees Prone Press Up Test Results Complaints of Pain PT-OP-Q Treatments Start: 12/21/17 16:51 Freq: Status: Active Protocol: Document 06/11/18 14:30 DCW (Rec: 06/11/18 15:59 DCW [id number]) Manual Therapy Treatment Soft Tissue Mobilization 5 Body Location Proximal Gastroc heads, bilateral Mobilization Type Myofascial Release Strumming Sustained Pressure Trigger Point Release Intensity/Depth Moderate Body Position Prone 4 Body Location Lumbar Paravetebral Musculature Mobilization Type Cross-Friction Instrument Assisted Rolling Strumming Sustained Pressure Trigger Point Release Intensity/Depth Moderate Body Position Prone 3 Body Location Piriformis Mobilization Type Myofascial Release 2 Body Location Quadratus Lumborum Mobilization Type Myofascial Release Strumming Sustained Pressure Trigger Point Release Intensity/Depth Deep Body Position Prone 1 Body Location Multifidi Mobilization Type Myofascial Release Strumming Sustained Pressure Trigger Point Release Intensity/Depth Moderate Body Position Prone Joint Mobilizations 1 Joint Lumbar 1-5 Direction P->A Grade III Body Position Prone PT-OP-R Modalities Start: 12/21/17 16:51 Freq: Status: Active Protocol: Document 06/11/18 14:30 DCW (Rec: 06/11/18 15:59 DCW [id number]) Ultrasound Therapy Treatment Right Lower Back Treatment Duration (minutes) 5 Patient Position Prone Coupling Medium Ultrasound Gel Frequency Setting (mHz) 1 Mode Setting Continuous Intensity Setting (w/cm2) 1.2 Left Lower Back Treatment Duration (minutes) 5 Patient Position Prone Coupling Medium Ultrasound Gel Frequency Setting (mHz) 1 Mode Setting Continuous Intensity Setting (w/cm2) 1.2 PT-OP-T Assessment and Plan Start: 12/21/17 16:51 Freq: Status: Active Protocol: Document 06/11/18 14:30 DCW (Rec: 06/11/18 15:59 DCW [id number]) Physical Therapy Assessment Impairments Impairments Activity Tolerance Balance Pain Posture ROM Soft Tissue Mobility Tone Goals Six Impairment Activity Tolerance Short Term Goal (STG) Pt to report ability to drive for 60 minutes with no increased pain STG Duration 04/27/18 [facility] Goal (LTG) Pt to report ability to walk down to his barn from the house (100 yards) with no increased pain LTG Duration 05/27/18 Five Impairment Pain Short Term Goal (STG) Pt to report pain at worst 7/ 10 STG Duration 04/27/18 Utility Gelatin Maker Goal (LTG) Pt to report pain at worst 4/ 10 LTG Duration 05/27/18 Four Impairment SLR Utility Gelatin Maker Goal (LTG) SLR to 50 degrees without increased pain LTG Duration 05/27/18 Three Impairment Joint Mobility [facility] Goal (LTG) P->A mobility of L1-5 to WNL LTG Duration 05/27/18 Two Impairment Muscle Tone [facility] Goal (LTG) Multifidi, QL, Glute Max, and Piriformis tone to Mild LTG Duration 05/27/18 One Impairment Palpation Tenderness Utility Gelatin Maker Goal (LTG) Low back tenderness to palpation down to 1/5 - Complaint of pain LTG Duration 05/27/18 Assessment Summary Assessment Pt planning to begin a course of Prednisone after getting a prescription from his PCP, which may assist decrease inflammation in his low back. Physical Therapy Plan Frequency and Duration Frequency of Treatment 2x/Week Duration of Treatment 12 weeks Plan of Care Start Date 03/27/18 Plan of Care End Date 06/19/18 Therapeutic Interventions Therapeutic Interventions Aquatic Therapy Home Exercise Program Joint Mobilizations Manual Therapy Neuromuscular Re-education Patient/Caregiver Education Soft Tissue Mobilization Therapeutic Exercises Vestibular Rehabilitation Modalities Cold Pack/Ice Massage Electric Stimulation Hot Packs Ultrasound Next Visit Focus/Plan Next Note Type Treatment Note Next Visit Plan Manual therapy for decreasing spasm, modalities (US, E-stim) .
--- NOTE | 2018-06-14 15:14 | PT.OTN ---
Current Diagnoses Unspecified inflammatory spondylopathy, lumbar region (06/14/18) Physical Therapy Treatment Note PT-OP-A Visit Information Start: 12/21/17 16:51 Freq: Status: Active Protocol: Document 06/14/18 14:30 DCW (Rec: 06/14/18 15:14 DCW [id number]) Out-Patient Physical Therapy Visit Information Visit Information Visit Type Treatment Note Visit Start Time 14:30 Visit Stop Time 15:15 Total Visit Minutes 45 Visit Number 24 Number of DIRECTOR EDUCATIONAL RADIO Visits 0 Evaluation Information Evaluation Date 12/21/17 PT-OP-B Current Condition Start: 12/21/17 16:51 Freq: Status: Active Protocol: Document 03/27/18 14:30 DCW (Rec: 03/27/18 14:43 DCW [id number]) Current Condition Current Functional Impairments (Reported) Functional Limitations- ADL's Pain with standing for 10+ minutes Pain with sitting 30+ minutes Pain disturbs sleep Unable to drive 30+ minutes Functional Limitations- Mobility/Gait Pt reports he must drive from his house to the barn, which is ~100 yards away. 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 Personal Factors Other Personal Factors That May Effect Morbid Obesity, Neuropathy, Therapy/Recovery Phrenic nerve palsy, cervical spinal fusion PT-OP-C Subjective Start: 12/21/17 16:51 Freq: Status: Active Protocol: Document 06/14/18 14:30 DCW (Rec: 06/14/18 15:14 DCW [id number]) OP-PT Subjective Patient Comments Patient Comments Pt notes increased tightness today, but admits that it might be due to being stressed for his mother's surgery yesterday. PT-OP-F Manual Assessment Start: 12/21/17 16:51 Freq: Status: Active Protocol: Document 03/27/18 14:30 DCW (Rec: 03/27/18 14:43 DCW [id number]) Manual Assessments Joint Mobility Assessment Joint Mobility Assessment P->A hypomobility and 3/5 - Wincing and Withdrawal tenderness in L1-L5 and bilateral SI joints PT-OP-J Posture/Palpation/Skin Start: 12/21/17 16:51 Freq: Status: Active Protocol: Document 03/27/18 14:30 DCW (Rec: 03/27/18 14:43 DCW [id number]) Palpation Assessment Location Four Palpation Location Gluteus Max Palpation Findings Soft Tissue Tightness Spasm Muscle Guarding Tenderness Palpation Details Severe Tone and Tenderness 3/5 - Wincing and Withdrawal Three Palpation Location Quadratus Lumborum Palpation Findings Soft Tissue Tightness Spasm Muscle Guarding Tenderness Palpation Details Severe Tone and Tenderness 3/5 - Wincing and Withdrawal Two Palpation Location Piriformis Palpation Findings Soft Tissue Tightness Spasm Muscle Guarding Tenderness Palpation Details Severe Tone and Tenderness 3/5 - Wincing and Withdrawal One Palpation Location Multifidi Palpation Findings Soft Tissue Tightness Spasm Muscle Guarding Tenderness Palpation Details Severe Tone and Tenderness 3/5 - Wincing and Withdrawal PT-OP-K Range of Motion Start: 12/21/17 16:51 Freq: Status: Active Protocol: Document 03/27/18 14:30 DCW (Rec: 03/27/18 14:43 DCW [id number]) Lumbar Spine Range of Motion Lumbar Spine Active Degrees Testing Position Standing Flexion 8 Extension 0 Comments Rotation and Lateral Flexion not tested secondary to pain PT-OP-L Special Tests Start: 12/21/17 16:51 Freq: Status: Active Protocol: Document 03/27/18 14:30 DCW (Rec: 03/27/18 14:43 DCW [id number]) Special Tests Lumbar Spine Special Tests Standing Flexion Test Results Lumbar spine unable to flex more than eight degrees Prone Knee Flexion Test Results Bilateral low back pain Straight Leg Raise Test Results Severe Bilateral pain at 35 degrees Prone Press Up Test Results Complaints of Pain PT-OP-Q Treatments Start: 12/21/17 16:51 Freq: Status: Active Protocol: Document 06/14/18 14:30 DCW (Rec: 06/14/18 15:14 DCW [id number]) Manual Therapy Treatment Soft Tissue Mobilization 5 Body Location Proximal Gastroc heads, bilateral Mobilization Type Myofascial Release Strumming Sustained Pressure Trigger Point Release Intensity/Depth Moderate Body Position Prone 4 Body Location Lumbar Paravetebral Musculature Mobilization Type Cross-Friction Instrument Assisted Rolling Strumming Sustained Pressure Trigger Point Release Intensity/Depth Moderate Body Position Prone 3 Body Location Piriformis Mobilization Type Myofascial Release 2 Body Location Quadratus Lumborum Mobilization Type Myofascial Release Strumming Sustained Pressure Trigger Point Release Intensity/Depth Deep Body Position Prone 1 Body Location Multifidi Mobilization Type Myofascial Release Strumming Sustained Pressure Trigger Point Release Intensity/Depth Moderate Body Position Prone Joint Mobilizations 1 Joint Lumbar 1-5 Direction P->A Grade III Body Position Prone PT-OP-R Modalities Start: 12/21/17 16:51 Freq: Status: Active Protocol: Document 06/14/18 14:30 DCW (Rec: 06/14/18 15:14 DCW [id number]) Ultrasound Therapy Treatment Right Lower Back Treatment Duration (minutes) 5 Patient Position Prone Coupling Medium Ultrasound Gel Frequency Setting (mHz) 1 Mode Setting Continuous Intensity Setting (w/cm2) 1.2 Left Lower Back Treatment Duration (minutes) 5 Patient Position Prone Coupling Medium Ultrasound Gel Frequency Setting (mHz) 1 Mode Setting Continuous Intensity Setting (w/cm2) 1.2 PT-OP-T Assessment and Plan Start: 12/21/17 16:51 Freq: Status: Active Protocol: Document 06/14/18 14:30 DCW (Rec: 06/14/18 15:14 DCW [id number]) Physical Therapy Assessment Impairments Impairments Activity Tolerance Balance Pain Posture ROM Soft Tissue Mobility Tone Goals Six Impairment Activity Tolerance Short Term Goal (STG) Pt to report ability to drive for 60 minutes with no increased pain STG Duration 04/27/18 Intermediate Goal (LTG) Pt to report ability to walk down to his barn from the house (100 yards) with no increased pain LTG Duration 05/27/18 Five Impairment Pain Short Term Goal (STG) Pt to report pain at worst 7/ 10 STG Duration 04/27/18 Intermediate Goal (LTG) Pt to report pain at worst 4/ 10 LTG Duration 05/27/18 Four Impairment SLR Intermediate Goal (LTG) SLR to 50 degrees without increased pain LTG Duration 05/27/18 Three Impairment Joint Mobility Applied Anthropologist Goal (LTG) P->A mobility of L1-5 to WNL LTG Duration 05/27/18 Two Impairment Muscle Tone Intermediate Goal (LTG) Multifidi, QL, Glute Max, and Piriformis tone to Mild LTG Duration 05/27/18 One Impairment Palpation Tenderness Applied Anthropologist Goal (LTG) Low back tenderness to palpation down to 1/5 - Complaint of pain LTG Duration 05/27/18 Assessment Summary Assessment Pt has begun Prednisone, appears to exhibit less swelling and inflammation throughout base of lumbar spine. Physical Therapy Plan Frequency and Duration Frequency of Treatment 2x/Week Duration of Treatment 12 weeks Plan of Care Start Date 03/27/18 Plan of Care End Date 06/19/18 Therapeutic Interventions Therapeutic Interventions Aquatic Therapy Home Exercise Program Joint Mobilizations Manual Therapy Neuromuscular Re-education Patient/Caregiver Education Soft Tissue Mobilization Therapeutic Exercises Vestibular Rehabilitation Modalities Cold Pack/Ice Massage Electric Stimulation Hot Packs Ultrasound Next Visit Focus/Plan Next Note Type Treatment Note Next Visit Plan Manual therapy for decreasing spasm, modalities (US, E-stim) .
--- NOTE | 2018-06-18 18:04 | PT.OTN ---
Current Diagnoses Unspecified inflammatory spondylopathy, lumbar region (06/18/18) Physical Therapy Treatment Note PT-OP-A Visit Information Start: 12/21/17 16:51 Freq: Status: Active Protocol: Document 06/18/18 14:30 DCW (Rec: 06/18/18 18:04 DCW [id number]) Out-Patient Physical Therapy Visit Information Visit Information Visit Type Progress Note Visit Start Time 14:30 Visit Stop Time 15:15 Total Visit Minutes 45 Visit Number 25 Number of BACK FEEDER [employer] LAYUP LINE Visits 0 Evaluation Information Evaluation Date 12/21/17 PT-OP-B Current Condition Start: 12/21/17 16:51 Freq: Status: Active Protocol: Document 03/27/18 14:30 DCW (Rec: 03/27/18 14:43 DCW [id number]) Current Condition Current Functional Impairments (Reported) Functional Limitations- ADL's Pain with standing for 10+ minutes Pain with sitting 30+ minutes Pain disturbs sleep Unable to drive 30+ minutes Functional Limitations- Mobility/Gait Pt reports he must drive from his house to the barn, which is ~100 yards away. 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 Personal Factors Other Personal Factors That May Effect Morbid Obesity, Neuropathy, Therapy/Recovery Phrenic nerve palsy, cervical spinal fusion PT-OP-C Subjective Start: 12/21/17 16:51 Freq: Status: Active Protocol: Document 06/18/18 14:30 DCW (Rec: 06/18/18 18:04 DCW [id number]) OP-PT Subjective Patient Comments Patient Comments Pt happily notes that he has been noticing increased sensation throughtout left leg . PT-OP-F Manual Assessment Start: 12/21/17 16:51 Freq: Status: Active Protocol: Document 06/18/18 14:30 DCW (Rec: 06/18/18 17:57 DCW [id number]) Manual Assessments Joint Mobility Assessment Joint Mobility Assessment P->A hypomobility and 3/5 - Wincing and Withdrawal tenderness in L1-L5 and bilateral SI joints PT-OP-J Posture/Palpation/Skin Start: 12/21/17 16:51 Freq: Status: Active Protocol: Document 06/18/18 14:30 DCW (Rec: 06/18/18 17:57 DCW [id number]) Palpation Assessment Location Four Palpation Location Gluteus Max Palpation Findings Soft Tissue Tightness Spasm Muscle Guarding Tenderness Palpation Details Moderate Tone and Tenderness 2 /5 - Pain with Wincing Three Palpation Location Quadratus Lumborum Palpation Findings Soft Tissue Tightness Spasm Muscle Guarding Tenderness Palpation Details Moderate Tone and Tenderness 2 /5 - Pain with Wincing Two Palpation Location Piriformis Palpation Findings Soft Tissue Tightness Spasm Muscle Guarding Tenderness Palpation Details Moderate Tone and Tenderness 2 /5 - Pain with Wincing One Palpation Location Multifidi Palpation Findings Soft Tissue Tightness Spasm Muscle Guarding Tenderness Palpation Details Severe Tone and Tenderness 3/5 - Wincing and Withdrawal PT-OP-K Range of Motion Start: 12/21/17 16:51 Freq: Status: Active Protocol: Document 06/18/18 14:30 DCW (Rec: 06/18/18 17:57 DCW [id number]) Lumbar Spine Range of Motion Lumbar Spine Active Degrees Testing Position Standing Flexion 12 Extension 0 Comments Rotation and Lateral Flexion not tested secondary to pain PT-OP-L Special Tests Start: 12/21/17 16:51 Freq: Status: Active Protocol: Document 06/18/18 14:30 DCW (Rec: 06/18/18 17:57 DCW [id number]) Special Tests Lumbar Spine Special Tests Standing Flexion Test Results Lumbar spine unable to flex more than 12 degrees Prone Knee Flexion Test Results Quad tightness Straight Leg Raise Test Results Severe Bilateral pain at 35 degrees Prone Press Up Test Results Complaints of Pain PT-OP-Q Treatments Start: 12/21/17 16:51 Freq: Status: Active Protocol: Document 06/18/18 14:30 DCW (Rec: 06/18/18 18:04 DCW [id number]) Manual Therapy Treatment Soft Tissue Mobilization 5 Body Location Proximal Gastroc heads, bilateral Mobilization Type Myofascial Release Strumming Sustained Pressure Trigger Point Release Intensity/Depth Moderate Body Position Prone 4 Body Location Lumbar Paravetebral Musculature Mobilization Type Cross-Friction Instrument Assisted Rolling Strumming Sustained Pressure Trigger Point Release Intensity/Depth Moderate Body Position Prone 3 Body Location Piriformis Mobilization Type Myofascial Release 2 Body Location Quadratus Lumborum Mobilization Type Myofascial Release Strumming Sustained Pressure Trigger Point Release Intensity/Depth Deep Body Position Prone 1 Body Location Multifidi Mobilization Type Myofascial Release Strumming Sustained Pressure Trigger Point Release Intensity/Depth Moderate Body Position Prone Joint Mobilizations 1 Joint Lumbar 1-5 Direction P->A Grade III Body Position Prone PT-OP-R Modalities Start: 12/21/17 16:51 Freq: Status: Active Protocol: Document 06/18/18 14:30 DCW (Rec: 06/18/18 18:04 DCW [id number]) Ultrasound Therapy Treatment Right Lower Back Treatment Duration (minutes) 5 Patient Position Prone Coupling Medium Ultrasound Gel Frequency Setting (mHz) 1 Mode Setting Continuous Intensity Setting (w/cm2) 1.2 Left Lower Back Treatment Duration (minutes) 5 Patient Position Prone Coupling Medium Ultrasound Gel Frequency Setting (mHz) 1 Mode Setting Continuous Intensity Setting (w/cm2) 1.2 PT-OP-T Assessment and Plan Start: 12/21/17 16:51 Freq: Status: Active Protocol: Document 06/18/18 14:30 DCW (Rec: 06/18/18 18:04 DCW [id number]) Physical Therapy Assessment Impairments Impairments Activity Tolerance Balance Pain Posture ROM Soft Tissue Mobility Tone Goals Six Impairment Activity Tolerance Short Term Goal (STG) Pt to report ability to drive for 60 minutes with no increased pain STG Duration 08/02/18 - improving - 20 minutes Correction Goal (LTG) Pt to report ability to walk down to his barn from the house (100 yards) with no increased pain LTG Duration 09/18/18 - Improving - walk down and senior care back Five Impairment Pain Short Term Goal (STG) Pt to report pain at worst 7/ 10 STG Duration 08/02/18 Sub Acute Care Nurse Goal (LTG) Pt to report pain at worst 4/ 10 LTG Duration 09/18/18 Four Impairment SLR Correction Goal (LTG) SLR to 50 degrees without increased pain LTG Duration 09/18/18 Three Impairment Joint Mobility Correction Goal (LTG) P->A mobility of L1-5 to WNL LTG Duration 09/18/17 Two Impairment Muscle Tone Sub Acute Care Nurse Goal (LTG) Multifidi, QL, Glute Max, and Piriformis tone to Mild LTG Duration 09/18/17 - Improving, all but multifidi from severe->mod tone One Impairment Palpation Tenderness Correction Goal (LTG) Low back tenderness to palpation down to 1/5 - Complaint of pain LTG Duration 09/18/18 - Improving - down from 3/4 to 2/4 in most areas Assessment Summary Assessment Pt making some progress with mobility, as well as tone and tenderness to palpation. Pt still reports pain as bad as 10/10, but max pain is less frequent. Pt has an appointment for a low back injection within the upcoming weeks, which should help improve pain level and muscle tone. Physical Therapy Plan Frequency and Duration Frequency of Treatment 2x/Week Duration of Treatment 12 weeks Plan of Care Start Date 06/18/18 Plan of Care End Date 09/18/18 Therapeutic Interventions Therapeutic Interventions Aquatic Therapy Home Exercise Program Joint Mobilizations Manual Therapy Neuromuscular Re-education Patient/Caregiver Education Soft Tissue Mobilization Therapeutic Exercises Vestibular Rehabilitation Modalities Cold Pack/Ice Massage Electric Stimulation Hot Packs Ultrasound Next Visit Focus/Plan Next Note Type Treatment Note Next Visit Plan Manual therapy for decreasing spasm, modalities (US, E-stim) .
--- NOTE | 2018-06-18 18:04 | PT.OPPOC ---
Current Diagnoses Unspecified inflammatory spondylopathy, lumbar region (06/18/18) Provider Visit Care Team Role Provider Type Jhon Taylor MD Family Provider Physician Primary Care Provider Specialty: Internal Medicine Address: [address] [place] [address], [id number] Email: Hay Wagner DO Attending Provider Physician Specialty: Physiatry Pain Management Address: [address] [place] [address], [id number] Email: Plan Of Care PT-OP-T Assessment and Plan Start: 12/21/17 16:51 Freq: Status: Active Protocol: Document 06/18/18 14:30 DCW (Rec: 06/18/18 18:04 DCW [id number]) Physical Therapy Assessment Impairments Impairments Activity Tolerance Balance Pain Posture ROM Soft Tissue Mobility Tone Goals Six Impairment Activity Tolerance Short Term Goal (STG) Pt to report ability to drive for 60 minutes with no increased pain STG Duration 08/02/18 - improving - 20 minutes Freight Broker Goal (LTG) Pt to report ability to walk down to his barn from the house (100 yards) with no increased pain LTG Duration 09/18/18 - Improving - walk down and half-way back Five Impairment Pain Short Term Goal (STG) Pt to report pain at worst 7/ 10 STG Duration 08/02/18 Snf Goal (LTG) Pt to report pain at worst 4/ 10 LTG Duration 09/18/18 Four Impairment SLR Freight Broker Goal (LTG) SLR to 50 degrees without increased pain LTG Duration 09/18/18 Three Impairment Joint Mobility Snf Goal (LTG) P->A mobility of L1-5 to WNL LTG Duration 09/18/17 Two Impairment Muscle Tone Freight Broker Goal (LTG) Multifidi, QL, Glute Max, and Piriformis tone to Mild LTG Duration 09/18/17 - Improving, all but multifidi from severe->mod tone One Impairment Palpation Tenderness Freight Broker Goal (LTG) Low back tenderness to palpation down to 1/5 - Complaint of pain LTG Duration 09/18/18 - Improving - down from 3/4 to 2/4 in most areas Assessment Summary Assessment Pt making some progress with mobility, as well as tone and tenderness to palpation. Pt still reports pain as bad as 10/10, but max pain is less frequent. Pt has an appointment for a low back injection within the upcoming weeks, which should help improve pain level and muscle tone. Physical Therapy Plan Frequency and Duration Frequency of Treatment 2x/Week Duration of Treatment 12 weeks Plan of Care Start Date 06/18/18 Plan of Care End Date 09/18/18 Therapeutic Interventions Therapeutic Interventions Aquatic Therapy Home Exercise Program Joint Mobilizations Manual Therapy Neuromuscular Re-education Patient/Caregiver Education Soft Tissue Mobilization Therapeutic Exercises Vestibular Rehabilitation Modalities Cold Pack/Ice Massage Electric Stimulation Hot Packs Ultrasound Next Visit Focus/Plan Next Note Type Treatment Note Next Visit Plan Manual therapy for decreasing spasm, modalities (US, E-stim) . Plan of Care Dates Plan of Care Start Date 06/18/18 Plan of Care End Date 09/18/18 Please Sign and Return: I have reviewed this Plan of Care and certify that the skilled therapy services above are required to meet the patient?s needs. Physician Signature Date Printed Name and Credentials Clinical Instructor Signature Printed Name and Credentials
--- NOTE | 2018-07-02 17:46 | PT.OTN ---
Current Diagnoses Unspecified inflammatory spondylopathy, lumbar region (07/02/18) Physical Therapy Treatment Note PT-OP-A Visit Information Start: 12/21/17 16:51 Freq: Status: Active Protocol: Document 07/02/18 15:15 DCW (Rec: 07/02/18 17:45 DCW [id number]) Out-Patient Physical Therapy Visit Information Visit Information Visit Type Progress Note Visit Start Time 15:15 Visit Stop Time 16:00 Total Visit Minutes 45 Visit Number 26 Number of TAXICAB COORDINATOR Visits 0 Evaluation Information Evaluation Date 12/21/17 PT-OP-B Current Condition Start: 12/21/17 16:51 Freq: Status: Active Protocol: Document 03/27/18 14:30 DCW (Rec: 03/27/18 14:43 DCW [id number]) Current Condition Current Functional Impairments (Reported) Functional Limitations- ADL's Pain with standing for 10+ minutes Pain with sitting 30+ minutes Pain disturbs sleep Unable to drive 30+ minutes Functional Limitations- Mobility/Gait Pt reports he must drive from his house to the barn, which is ~100 yards away. 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 Personal Factors Other Personal Factors That May Effect Morbid Obesity, Neuropathy, Therapy/Recovery Phrenic nerve palsy, cervical spinal fusion PT-OP-C Subjective Start: 12/21/17 16:51 Freq: Status: Active Protocol: Document 07/02/18 15:15 DCW (Rec: 07/02/18 17:45 DCW [id number]) OP-PT Subjective Patient Comments Patient Comments Pt reports he has been hurting over the two-week gap between therapy appointments. PT-OP-F Manual Assessment Start: 12/21/17 16:51 Freq: Status: Active Protocol: Document 06/18/18 14:30 DCW (Rec: 06/18/18 17:57 DCW [id number]) Manual Assessments Joint Mobility Assessment Joint Mobility Assessment P->A hypomobility and 3/5 - Wincing and Withdrawal tenderness in L1-L5 and bilateral SI joints PT-OP-J Posture/Palpation/Skin Start: 12/21/17 16:51 Freq: Status: Active Protocol: Document 06/18/18 14:30 DCW (Rec: 06/18/18 17:57 DCW [id number]) Palpation Assessment Location Four Palpation Location Gluteus Max Palpation Findings Soft Tissue Tightness Spasm Muscle Guarding Tenderness Palpation Details Moderate Tone and Tenderness 2 /5 - Pain with Wincing Three Palpation Location Quadratus Lumborum Palpation Findings Soft Tissue Tightness Spasm Muscle Guarding Tenderness Palpation Details Moderate Tone and Tenderness 2 /5 - Pain with Wincing Two Palpation Location Piriformis Palpation Findings Soft Tissue Tightness Spasm Muscle Guarding Tenderness Palpation Details Moderate Tone and Tenderness 2 /5 - Pain with Wincing One Palpation Location Multifidi Palpation Findings Soft Tissue Tightness Spasm Muscle Guarding Tenderness Palpation Details Severe Tone and Tenderness 3/5 - Wincing and Withdrawal PT-OP-K Range of Motion Start: 12/21/17 16:51 Freq: Status: Active Protocol: Document 06/18/18 14:30 DCW (Rec: 06/18/18 17:57 DCW [id number]) Lumbar Spine Range of Motion Lumbar Spine Active Degrees Testing Position Standing Flexion 12 Extension 0 Comments Rotation and Lateral Flexion not tested secondary to pain PT-OP-L Special Tests Start: 12/21/17 16:51 Freq: Status: Active Protocol: Document 06/18/18 14:30 DCW (Rec: 06/18/18 17:57 DCW [id number]) Special Tests Lumbar Spine Special Tests Standing Flexion Test Results Lumbar spine unable to flex more than 12 degrees Prone Knee Flexion Test Results Quad tightness Straight Leg Raise Test Results Severe Bilateral pain at 35 degrees Prone Press Up Test Results Complaints of Pain PT-OP-Q Treatments Start: 12/21/17 16:51 Freq: Status: Active Protocol: Document 07/02/18 15:15 DCW (Rec: 07/02/18 17:45 DCW [id number]) Manual Therapy Treatment Soft Tissue Mobilization 4 Body Location Lumbar Paravetebral Musculature Mobilization Type Cross-Friction Instrument Assisted Rolling Strumming Sustained Pressure Trigger Point Release Intensity/Depth Moderate Body Position Prone 3 Body Location Piriformis Mobilization Type Myofascial Release 2 Body Location Quadratus Lumborum Mobilization Type Myofascial Release Strumming Sustained Pressure Trigger Point Release Intensity/Depth Deep Body Position Prone 1 Body Location Multifidi Mobilization Type Myofascial Release Strumming Sustained Pressure Trigger Point Release Intensity/Depth Moderate Body Position Prone Joint Mobilizations 1 Joint Lumbar 1-5 Direction P->A Grade III Body Position Prone PT-OP-R Modalities Start: 12/21/17 16:51 Freq: Status: Active Protocol: Document 07/02/18 15:15 DCW (Rec: 07/02/18 17:45 DCW [id number]) Ultrasound Therapy Treatment Right Lower Back Treatment Duration (minutes) 5 Patient Position Prone Coupling Medium Ultrasound Gel Frequency Setting (mHz) 1 Mode Setting Continuous Intensity Setting (w/cm2) 1.2 Left Lower Back Treatment Duration (minutes) 5 Patient Position Prone Coupling Medium Ultrasound Gel Frequency Setting (mHz) 1 Mode Setting Continuous Intensity Setting (w/cm2) 1.2 PT-OP-T Assessment and Plan Start: 12/21/17 16:51 Freq: Status: Active Protocol: Document 07/02/18 15:15 DCW (Rec: 07/02/18 17:45 DCW [id number]) Physical Therapy Assessment Impairments Impairments Activity Tolerance Balance Pain Posture ROM Soft Tissue Mobility Tone Goals Six Impairment Activity Tolerance Short Term Goal (STG) Pt to report ability to drive for 60 minutes with no increased pain STG Duration 08/02/18 - improving - 20 minutes Nursing Home Goal (LTG) Pt to report ability to walk down to his barn from the house (100 yards) with no increased pain LTG Duration 09/18/18 - Improving - walk down and correction back Five Impairment Pain Short Term Goal (STG) Pt to report pain at worst 7/ 10 STG Duration 08/02/18 Professional Driver Goal (LTG) Pt to report pain at worst 4/ 10 LTG Duration 09/18/18 Four Impairment SLR Professional Driver Goal (LTG) SLR to 50 degrees without increased pain LTG Duration 09/18/18 Three Impairment Joint Mobility Nursing Home Goal (LTG) P->A mobility of L1-5 to WNL LTG Duration 09/18/17 Two Impairment Muscle Tone Professional Driver Goal (LTG) Multifidi, QL, Glute Max, and Piriformis tone to Mild LTG Duration 09/18/17 - Improving, all but multifidi from severe->mod tone One Impairment Palpation Tenderness Professional Driver Goal (LTG) Low back tenderness to palpation down to 1/5 - Complaint of pain LTG Duration 09/18/18 - Improving - down from 3/4 to 2/4 in most areas Assessment Summary Assessment Despite pt's complaints of worsening over his two-week break from PT, his had no notable increased soft tissue tone or inflammation. Physical Therapy Plan Frequency and Duration Frequency of Treatment 2x/Week Duration of Treatment 12 weeks Plan of Care Start Date 06/18/18 Plan of Care End Date 09/18/18 Therapeutic Interventions Therapeutic Interventions Aquatic Therapy Home Exercise Program Joint Mobilizations Manual Therapy Neuromuscular Re-education Patient/Caregiver Education Soft Tissue Mobilization Therapeutic Exercises Vestibular Rehabilitation Modalities Cold Pack/Ice Massage Electric Stimulation Hot Packs Ultrasound Next Visit Focus/Plan Next Note Type Treatment Note Next Visit Plan Manual therapy for decreasing spasm, modalities (US, E-stim) .
--- NOTE | 2018-07-05 16:14 | PT.OTN ---
Current Diagnoses Unspecified inflammatory spondylopathy, lumbar region (07/05/18) Physical Therapy Treatment Note PT-OP-A Visit Information Start: 12/21/17 16:51 Freq: Status: Active Protocol: Document 07/05/18 15:15 DCW (Rec: 07/05/18 16:14 DCW [id number]) Out-Patient Physical Therapy Visit Information Visit Information Visit Type Treatment Note Visit Start Time 15:15 Visit Stop Time 16:00 Total Visit Minutes 45 Visit Number 27 Number of SUPPLY TECHNICIAN Visits 0 Evaluation Information Evaluation Date 12/21/17 PT-OP-B Current Condition Start: 12/21/17 16:51 Freq: Status: Active Protocol: Document 03/27/18 14:30 DCW (Rec: 03/27/18 14:43 DCW [id number]) Current Condition Current Functional Impairments (Reported) Functional Limitations- ADL's Pain with standing for 10+ minutes Pain with sitting 30+ minutes Pain disturbs sleep Unable to drive 30+ minutes Functional Limitations- Mobility/Gait Pt reports he must drive from his house to the barn, which is ~100 yards away. 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 Personal Factors Other Personal Factors That May Effect Morbid Obesity, Neuropathy, Therapy/Recovery Phrenic nerve palsy, cervical spinal fusion PT-OP-C Subjective Start: 12/21/17 16:51 Freq: Status: Active Protocol: Document 07/05/18 15:15 DCW (Rec: 07/05/18 16:14 DCW [id number]) OP-PT Subjective Patient Comments Patient Comments Pt reports that he actually didn't do anything to screw up what had been worked on last visit. PT-OP-F Manual Assessment Start: 12/21/17 16:51 Freq: Status: Active Protocol: Document 06/18/18 14:30 DCW (Rec: 06/18/18 17:57 DCW [id number]) Manual Assessments Joint Mobility Assessment Joint Mobility Assessment P->A hypomobility and 3/5 - Wincing and Withdrawal tenderness in L1-L5 and bilateral SI joints PT-OP-J Posture/Palpation/Skin Start: 12/21/17 16:51 Freq: Status: Active Protocol: Document 06/18/18 14:30 DCW (Rec: 06/18/18 17:57 DCW [id number]) Palpation Assessment Location Four Palpation Location Gluteus Max Palpation Findings Soft Tissue Tightness Spasm Muscle Guarding Tenderness Palpation Details Moderate Tone and Tenderness 2 /5 - Pain with Wincing Three Palpation Location Quadratus Lumborum Palpation Findings Soft Tissue Tightness Spasm Muscle Guarding Tenderness Palpation Details Moderate Tone and Tenderness 2 /5 - Pain with Wincing Two Palpation Location Piriformis Palpation Findings Soft Tissue Tightness Spasm Muscle Guarding Tenderness Palpation Details Moderate Tone and Tenderness 2 /5 - Pain with Wincing One Palpation Location Multifidi Palpation Findings Soft Tissue Tightness Spasm Muscle Guarding Tenderness Palpation Details Severe Tone and Tenderness 3/5 - Wincing and Withdrawal PT-OP-K Range of Motion Start: 12/21/17 16:51 Freq: Status: Active Protocol: Document 06/18/18 14:30 DCW (Rec: 06/18/18 17:57 DCW [id number]) Lumbar Spine Range of Motion Lumbar Spine Active Degrees Testing Position Standing Flexion 12 Extension 0 Comments Rotation and Lateral Flexion not tested secondary to pain PT-OP-L Special Tests Start: 12/21/17 16:51 Freq: Status: Active Protocol: Document 06/18/18 14:30 DCW (Rec: 06/18/18 17:57 DCW [id number]) Special Tests Lumbar Spine Special Tests Standing Flexion Test Results Lumbar spine unable to flex more than 12 degrees Prone Knee Flexion Test Results Quad tightness Straight Leg Raise Test Results Severe Bilateral pain at 35 degrees Prone Press Up Test Results Complaints of Pain PT-OP-Q Treatments Start: 12/21/17 16:51 Freq: Status: Active Protocol: Document 07/05/18 15:15 DCW (Rec: 07/05/18 16:14 DCW [id number]) Manual Therapy Treatment Soft Tissue Mobilization 5 Body Location Proximal Gastroc heads, bilateral Mobilization Type Myofascial Release Strumming Sustained Pressure Trigger Point Release Intensity/Depth Moderate Body Position Prone 4 Body Location Lumbar Paravetebral Musculature Mobilization Type Cross-Friction Instrument Assisted Rolling Strumming Sustained Pressure Trigger Point Release Intensity/Depth Moderate Body Position Prone 3 Body Location Piriformis Mobilization Type Myofascial Release 2 Body Location Quadratus Lumborum Mobilization Type Myofascial Release Strumming Sustained Pressure Trigger Point Release Intensity/Depth Deep Body Position Prone 1 Body Location Multifidi Mobilization Type Myofascial Release Strumming Sustained Pressure Trigger Point Release Intensity/Depth Moderate Body Position Prone Joint Mobilizations 1 Joint Lumbar 1-5 Direction P->A Grade III Body Position Prone PT-OP-R Modalities Start: 12/21/17 16:51 Freq: Status: Active Protocol: Document 07/05/18 15:15 DCW (Rec: 07/05/18 16:14 DCW [id number]) Ultrasound Therapy Treatment Right Lower Back Treatment Duration (minutes) 5 Patient Position Prone Coupling Medium Ultrasound Gel Frequency Setting (mHz) 1 Mode Setting Continuous Intensity Setting (w/cm2) 1.2 Left Lower Back Treatment Duration (minutes) 5 Patient Position Prone Coupling Medium Ultrasound Gel Frequency Setting (mHz) 1 Mode Setting Continuous Intensity Setting (w/cm2) 1.2 PT-OP-T Assessment and Plan Start: 12/21/17 16:51 Freq: Status: Active Protocol: Document 07/05/18 15:15 DCW (Rec: 07/05/18 16:14 DCW [id number]) Physical Therapy Assessment Impairments Impairments Activity Tolerance Balance Pain Posture ROM Soft Tissue Mobility Tone Goals Six Impairment Activity Tolerance Short Term Goal (STG) Pt to report ability to drive for 60 minutes with no increased pain STG Duration 08/02/18 - improving - 20 minutes [facility] Goal (LTG) Pt to report ability to walk down to his barn from the house (100 yards) with no increased pain LTG Duration 09/18/18 - Improving - walk down and snf back Five Impairment Pain Short Term Goal (STG) Pt to report pain at worst 7/ 10 STG Duration 08/02/18 [facility] Goal (LTG) Pt to report pain at worst 4/ 10 LTG Duration 09/18/18 Four Impairment SLR [facility] Goal (LTG) SLR to 50 degrees without increased pain LTG Duration 09/18/18 Three Impairment Joint Mobility [facility] Goal (LTG) P->A mobility of L1-5 to WNL LTG Duration 09/18/17 Two Impairment Muscle Tone Server 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 Physical Therapy Plan Frequency and Duration Frequency of Treatment 2x/Week Duration of Treatment 12 weeks Plan of Care Start Date 06/18/18 Plan of Care End Date 09/18/18 Therapeutic Interventions Therapeutic Interventions Aquatic Therapy Home Exercise Program Joint Mobilizations Manual Therapy Neuromuscular Re-education Patient/Caregiver Education Soft Tissue Mobilization Therapeutic Exercises Vestibular Rehabilitation Modalities Cold Pack/Ice Massage Electric Stimulation Hot Packs Ultrasound Next Visit Focus/Plan Next Note Type Treatment Note Next Visit Plan Manual therapy for decreasing spasm, modalities (US, E-stim) .
--- NOTE | 2018-07-09 15:13 | PT.OTN ---
Current Diagnoses Unspecified inflammatory spondylopathy, lumbar region (07/09/18) Physical Therapy Treatment Note PT-OP-A Visit Information Start: 12/21/17 16:51 Freq: Status: Active Protocol: Document 07/09/18 14:30 DCW (Rec: 07/09/18 15:12 DCW [id number]) Out-Patient Physical Therapy Visit Information Visit Information Visit Type Treatment Note Visit Start Time 14:30 Visit Stop Time 15:15 Total Visit Minutes 45 Visit Number 28 Number of [facility] Visits 0 Evaluation Information Evaluation Date 12/21/17 PT-OP-B Current Condition Start: 12/21/17 16:51 Freq: Status: Active Protocol: Document 03/27/18 14:30 DCW (Rec: 03/27/18 14:43 DCW [id number]) Current Condition Current Functional Impairments (Reported) Functional Limitations- ADL's Pain with standing for 10+ minutes Pain with sitting 30+ minutes Pain disturbs sleep Unable to drive 30+ minutes Functional Limitations- Mobility/Gait Pt reports he must drive from his house to the barn, which is ~100 yards away. 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 Personal Factors Other Personal Factors That May Effect Morbid Obesity, Neuropathy, Therapy/Recovery Phrenic nerve palsy, cervical spinal fusion PT-OP-C Subjective Start: 12/21/17 16:51 Freq: Status: Active Protocol: Document 07/09/18 14:30 DCW (Rec: 07/09/18 15:12 DCW [id number]) OP-PT Subjective Patient Comments Patient Comments Pt notes that he's pleasantly surprised at his lower level of pain resently. PT-OP-F Manual Assessment Start: 12/21/17 16:51 Freq: Status: Active Protocol: Document 06/18/18 14:30 DCW (Rec: 06/18/18 17:57 DCW [id number]) Manual Assessments Joint Mobility Assessment Joint Mobility Assessment P->A hypomobility and 3/5 - Wincing and Withdrawal tenderness in L1-L5 and bilateral SI joints PT-OP-J Posture/Palpation/Skin Start: 12/21/17 16:51 Freq: Status: Active Protocol: Document 06/18/18 14:30 DCW (Rec: 06/18/18 17:57 DCW [id number]) Palpation Assessment Location Four Palpation Location Gluteus Max Palpation Findings Soft Tissue Tightness Spasm Muscle Guarding Tenderness Palpation Details Moderate Tone and Tenderness 2 /5 - Pain with Wincing Three Palpation Location Quadratus Lumborum Palpation Findings Soft Tissue Tightness Spasm Muscle Guarding Tenderness Palpation Details Moderate Tone and Tenderness 2 /5 - Pain with Wincing Two Palpation Location Piriformis Palpation Findings Soft Tissue Tightness Spasm Muscle Guarding Tenderness Palpation Details Moderate Tone and Tenderness 2 /5 - Pain with Wincing One Palpation Location Multifidi Palpation Findings Soft Tissue Tightness Spasm Muscle Guarding Tenderness Palpation Details Severe Tone and Tenderness 3/5 - Wincing and Withdrawal PT-OP-K Range of Motion Start: 12/21/17 16:51 Freq: Status: Active Protocol: Document 06/18/18 14:30 DCW (Rec: 06/18/18 17:57 DCW [id number]) Lumbar Spine Range of Motion Lumbar Spine Active Degrees Testing Position Standing Flexion 12 Extension 0 Comments Rotation and Lateral Flexion not tested secondary to pain PT-OP-L Special Tests Start: 12/21/17 16:51 Freq: Status: Active Protocol: Document 06/18/18 14:30 DCW (Rec: 06/18/18 17:57 DCW [id number]) Special Tests Lumbar Spine Special Tests Standing Flexion Test Results Lumbar spine unable to flex more than 12 degrees Prone Knee Flexion Test Results Quad tightness Straight Leg Raise Test Results Severe Bilateral pain at 35 degrees Prone Press Up Test Results Complaints of Pain PT-OP-Q Treatments Start: 12/21/17 16:51 Freq: Status: Active Protocol: Document 07/09/18 14:30 DCW (Rec: 07/09/18 15:12 DCW [id number]) Manual Therapy Treatment Soft Tissue Mobilization 5 Body Location Proximal Gastroc heads, bilateral Mobilization Type Myofascial Release Strumming Sustained Pressure Trigger Point Release Intensity/Depth Moderate Body Position Prone 4 Body Location Lumbar Paravetebral Musculature Mobilization Type Cross-Friction Instrument Assisted Rolling Strumming Sustained Pressure Trigger Point Release Intensity/Depth Moderate Body Position Prone 3 Body Location Piriformis Mobilization Type Myofascial Release 2 Body Location Quadratus Lumborum Mobilization Type Myofascial Release Strumming Sustained Pressure Trigger Point Release Intensity/Depth Deep Body Position Prone 1 Body Location Multifidi Mobilization Type Myofascial Release Strumming Sustained Pressure Trigger Point Release Intensity/Depth Moderate Body Position Prone Joint Mobilizations 1 Joint Lumbar 1-5 Direction P->A Grade III Body Position Prone PT-OP-R Modalities Start: 12/21/17 16:51 Freq: Status: Active Protocol: Document 07/09/18 14:30 DCW (Rec: 07/09/18 15:12 DCW [id number]) Ultrasound Therapy Treatment Right Lower Back Treatment Duration (minutes) 5 Patient Position Prone Coupling Medium Ultrasound Gel Frequency Setting (mHz) 1 Mode Setting Continuous Intensity Setting (w/cm2) 1.2 Left Lower Back Treatment Duration (minutes) 5 Patient Position Prone Coupling Medium Ultrasound Gel Frequency Setting (mHz) 1 Mode Setting Continuous Intensity Setting (w/cm2) 1.2 PT-OP-T Assessment and Plan Start: 12/21/17 16:51 Freq: Status: Active Protocol: Document 07/09/18 14:30 DCW (Rec: 07/09/18 15:12 DCW [id number]) Physical Therapy Assessment Impairments Impairments Activity Tolerance Balance Pain Posture ROM Soft Tissue Mobility Tone Goals Six Impairment Activity Tolerance Short Term Goal (STG) Pt to report ability to drive for 60 minutes with no increased pain STG Duration 08/02/18 - improving - 20 minutes Circulation Crew Leader Goal (LTG) Pt to report ability to walk down to his barn from the house (100 yards) with no increased pain LTG Duration 09/18/18 - Improving - walk down and senior living back Five Impairment Pain Short Term Goal (STG) Pt to report pain at worst 7/ 10 STG Duration 08/02/18 Circulation Crew Leader Goal (LTG) Pt to report pain at worst 4/ 10 LTG Duration 09/18/18 Four Impairment SLR Circulation Crew Leader Goal (LTG) SLR to 50 degrees without increased pain LTG Duration 09/18/18 Three Impairment Joint Mobility Half-Way Goal (LTG) P->A mobility of L1-5 to WNL LTG Duration 09/18/17 Two Impairment Muscle Tone Half-Way Goal (LTG) Multifidi, QL, Glute Max, and Piriformis tone to Mild LTG Duration 09/18/17 - Improving, all but multifidi from severe->mod tone One Impairment Palpation Tenderness Circulation Crew Leader Goal (LTG) Low back tenderness to palpation down to 1/5 - Complaint of pain LTG Duration 09/18/18 - Improving - down from 3/4 to 2/4 in most areas Assessment Summary Assessment Pt doing better today both subjectively and with his tone levels inspected with palpation. Physical Therapy Plan Frequency and Duration Frequency of Treatment 2x/Week Duration of Treatment 12 weeks Plan of Care Start Date 06/18/18 Plan of Care End Date 09/18/18 Therapeutic Interventions Therapeutic Interventions Aquatic Therapy Home Exercise Program Joint Mobilizations Manual Therapy Neuromuscular Re-education Patient/Caregiver Education Soft Tissue Mobilization Therapeutic Exercises Vestibular Rehabilitation Modalities Cold Pack/Ice Massage Electric Stimulation Hot Packs Ultrasound Next Visit Focus/Plan Next Note Type Treatment Note Next Visit Plan Manual therapy for decreasing spasm, modalities (US, E-stim) .
--- NOTE | 2018-07-12 15:14 | PT.OTN ---
Current Diagnoses Unspecified inflammatory spondylopathy, lumbar region (07/12/18) Physical Therapy Treatment Note PT-OP-A Visit Information Start: 12/21/17 16:51 Freq: Status: Active Protocol: Document 07/12/18 14:30 DCW (Rec: 07/12/18 15:14 DCW [id number]) Out-Patient Physical Therapy Visit Information Visit Information Visit Type Treatment Note Visit Start Time 14:30 Visit Stop Time 15:15 Total Visit Minutes 45 Visit Number 29 Number of CHEF FRENCH Visits 0 Evaluation Information Evaluation Date 12/21/17 PT-OP-B Current Condition Start: 12/21/17 16:51 Freq: Status: Active Protocol: Document 03/27/18 14:30 DCW (Rec: 03/27/18 14:43 DCW [id number]) Current Condition Current Functional Impairments (Reported) Functional Limitations- ADL's Pain with standing for 10+ minutes Pain with sitting 30+ minutes Pain disturbs sleep Unable to drive 30+ minutes Functional Limitations- Mobility/Gait Pt reports he must drive from his house to the barn, which is ~100 yards away. 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 Personal Factors Other Personal Factors That May Effect Morbid Obesity, Neuropathy, Therapy/Recovery Phrenic nerve palsy, cervical spinal fusion PT-OP-C Subjective Start: 12/21/17 16:51 Freq: Status: Active Protocol: Document 07/12/18 14:30 DCW (Rec: 07/12/18 15:14 DCW [id number]) OP-PT Subjective Patient Comments Patient Comments Pt reports his knees are killinmg me, reports right is worse than left. PT-OP-F Manual Assessment Start: 12/21/17 16:51 Freq: Status: Active Protocol: Document 06/18/18 14:30 DCW (Rec: 06/18/18 17:57 DCW [id number]) Manual Assessments Joint Mobility Assessment Joint Mobility Assessment P->A hypomobility and 3/5 - Wincing and Withdrawal tenderness in L1-L5 and bilateral SI joints PT-OP-J Posture/Palpation/Skin Start: 12/21/17 16:51 Freq: Status: Active Protocol: Document 06/18/18 14:30 DCW (Rec: 06/18/18 17:57 DCW [id number]) Palpation Assessment Location Four Palpation Location Gluteus Max Palpation Findings Soft Tissue Tightness Spasm Muscle Guarding Tenderness Palpation Details Moderate Tone and Tenderness 2 /5 - Pain with Wincing Three Palpation Location Quadratus Lumborum Palpation Findings Soft Tissue Tightness Spasm Muscle Guarding Tenderness Palpation Details Moderate Tone and Tenderness 2 /5 - Pain with Wincing Two Palpation Location Piriformis Palpation Findings Soft Tissue Tightness Spasm Muscle Guarding Tenderness Palpation Details Moderate Tone and Tenderness 2 /5 - Pain with Wincing One Palpation Location Multifidi Palpation Findings Soft Tissue Tightness Spasm Muscle Guarding Tenderness Palpation Details Severe Tone and Tenderness 3/5 - Wincing and Withdrawal PT-OP-K Range of Motion Start: 12/21/17 16:51 Freq: Status: Active Protocol: Document 06/18/18 14:30 DCW (Rec: 06/18/18 17:57 DCW [id number]) Lumbar Spine Range of Motion Lumbar Spine Active Degrees Testing Position Standing Flexion 12 Extension 0 Comments Rotation and Lateral Flexion not tested secondary to pain PT-OP-L Special Tests Start: 12/21/17 16:51 Freq: Status: Active Protocol: Document 06/18/18 14:30 DCW (Rec: 06/18/18 17:57 DCW [id number]) Special Tests Lumbar Spine Special Tests Standing Flexion Test Results Lumbar spine unable to flex more than 12 degrees Prone Knee Flexion Test Results Quad tightness Straight Leg Raise Test Results Severe Bilateral pain at 35 degrees Prone Press Up Test Results Complaints of Pain PT-OP-Q Treatments Start: 12/21/17 16:51 Freq: Status: Active Protocol: Document 07/12/18 14:30 DCW (Rec: 07/12/18 15:14 DCW [id number]) Manual Therapy Treatment Soft Tissue Mobilization 5 Body Location Proximal Gastroc heads, bilateral Mobilization Type Myofascial Release Strumming Sustained Pressure Trigger Point Release Intensity/Depth Moderate Body Position Prone 4 Body Location Lumbar Paravetebral Musculature Mobilization Type Cross-Friction Instrument Assisted Rolling Strumming Sustained Pressure Trigger Point Release Intensity/Depth Moderate Body Position Prone 3 Body Location Piriformis Mobilization Type Myofascial Release 2 Body Location Quadratus Lumborum Mobilization Type Myofascial Release Strumming Sustained Pressure Trigger Point Release Intensity/Depth Deep Body Position Prone 1 Body Location Multifidi Mobilization Type Myofascial Release Strumming Sustained Pressure Trigger Point Release Intensity/Depth Moderate Body Position Prone Joint Mobilizations 1 Joint Lumbar 1-5 Direction P->A Grade III Body Position Prone PT-OP-R Modalities Start: 12/21/17 16:51 Freq: Status: Active Protocol: Document 07/12/18 14:30 DCW (Rec: 07/12/18 15:14 DCW [id number]) Ultrasound Therapy Treatment Right Lower Back Treatment Duration (minutes) 5 Patient Position Prone Coupling Medium Ultrasound Gel Frequency Setting (mHz) 1 Mode Setting Continuous Intensity Setting (w/cm2) 1.2 Left Lower Back Treatment Duration (minutes) 5 Patient Position Prone Coupling Medium Ultrasound Gel Frequency Setting (mHz) 1 Mode Setting Continuous Intensity Setting (w/cm2) 1.2 PT-OP-T Assessment and Plan Start: 12/21/17 16:51 Freq: Status: Active Protocol: Document 07/12/18 14:30 DCW (Rec: 07/12/18 15:14 DCW [id number]) Physical Therapy Assessment Impairments Impairments Activity Tolerance Balance Pain Posture ROM Soft Tissue Mobility Tone Goals Six Impairment Activity Tolerance Short Term Goal (STG) Pt to report ability to drive for 60 minutes with no increased pain STG Duration 08/02/18 - improving - 20 minutes Head 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 Desizing 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 Operator Goal (LTG) Pt to report ability to walk down to his barn from the house (100 yards) with no increased pain LTG Duration 09/18/18 - Improving - walk down and long term back Five Impairment Pain Short Term Goal (STG) Pt to report pain at worst 7/ 10 STG Duration 08/02/18 [facility] Goal (LTG) Pt to report pain at worst 4/ 10 LTG Duration 09/18/18 Four Impairment SLR [facility] Goal (LTG) SLR to 50 degrees without increased pain LTG Duration 09/18/18 Three Impairment Joint Mobility [facility] Goal (LTG) P->A mobility of L1-5 to WNL LTG Duration 09/18/17 Two Impairment Muscle Tone [facility] Goal (LTG) Multifidi, QL, Glute Max, and Piriformis tone to Mild LTG Duration 09/18/17 - Improving, all but multifidi from severe->mod tone One Impairment Palpation Tenderness [facility] Goal (LTG) Low back tenderness to palpation down to 1/5 - Complaint of pain LTG Duration 09/18/18 - Improving - down from 3/4 to 2/4 in most areas Assessment Summary Assessment Pt displayed increased tone bilaterally in soleus today, with increased complaints of pain and a thigh band around the knees. Physical Therapy Plan Frequency and Duration Frequency of Treatment 2x/Week Duration of Treatment 12 weeks Plan of Care Start Date 06/18/18 Plan of Care End Date 09/18/18 Therapeutic Interventions Therapeutic Interventions Aquatic Therapy Home Exercise Program Joint Mobilizations Manual Therapy Neuromuscular Re-education Patient/Caregiver Education Soft Tissue Mobilization Therapeutic Exercises Vestibular Rehabilitation Modalities Cold Pack/Ice Massage Electric Stimulation Hot Packs Ultrasound Next Visit Focus/Plan Next Note Type Treatment Note Next Visit Plan Manual therapy for decreasing spasm, modalities (US, E-stim) .
--- NOTE | 2018-07-19 15:15 | PT.OTN ---
Current Diagnoses Unspecified inflammatory spondylopathy, lumbar region (07/19/18) Physical Therapy Treatment Note PT-OP-A Visit Information Start: 12/21/17 16:51 Freq: Status: Active Protocol: Document 07/19/18 15:15 RCC (Rec: 07/21/18 16:51 RCC [email or web address]) Out-Patient Physical Therapy Visit Information Visit Information Visit Type Treatment Note Visit Note pt had radiograph in standing B knees, impression: bilateral mild to mod medial femortibial compartment OA, slightly worse on R compared to the L. Visit Start Time 14:40 Visit Stop Time 15:15 Total Visit Minutes 35 Visit Number 30 Number of SUPERVISOR [employer] ELECTRODES Visits 0 Evaluation Information Evaluation Date 12/21/17 PT-OP-B Current Condition Start: 12/21/17 16:51 Freq: Status: Active Protocol: Document 03/27/18 14:30 DCW (Rec: 03/27/18 14:43 DCW [id number]) Current Condition Current Functional Impairments (Reported) Functional Limitations- ADL's Pain with standing for 10+ minutes Pain with sitting 30+ minutes Pain disturbs sleep Unable to drive 30+ minutes Functional Limitations- Mobility/Gait Pt reports he must drive from his house to the barn, which is ~100 yards away. 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 Personal Factors Other Personal Factors That May Effect Morbid Obesity, Neuropathy, Therapy/Recovery Phrenic nerve palsy, cervical spinal fusion PT-OP-C Subjective Start: 12/21/17 16:51 Freq: Status: Active Protocol: Document 07/19/18 15:15 RCC (Rec: 07/21/18 16:51 RCC [email or web address]) OP-PT Subjective Patient Comments Patient Comments Pt reports that radiograph of knees showed that his R knee cap was messed up. He is having a lot of back pain today. PT-OP-F Manual Assessment Start: 12/21/17 16:51 Freq: Status: Active Protocol: Document 06/18/18 14:30 DCW (Rec: 06/18/18 17:57 DCW [id number]) Manual Assessments Joint Mobility Assessment Joint Mobility Assessment P->A hypomobility and 3/5 - Wincing and Withdrawal tenderness in L1-L5 and bilateral SI joints PT-OP-J Posture/Palpation/Skin Start: 12/21/17 16:51 Freq: Status: Active Protocol: Document 06/18/18 14:30 DCW (Rec: 06/18/18 17:57 DCW [id number]) Palpation Assessment Location Four Palpation Location Gluteus Max Palpation Findings Soft Tissue Tightness Spasm Muscle Guarding Tenderness Palpation Details Moderate Tone and Tenderness 2 /5 - Pain with Wincing Three Palpation Location Quadratus Lumborum Palpation Findings Soft Tissue Tightness Spasm Muscle Guarding Tenderness Palpation Details Moderate Tone and Tenderness 2 /5 - Pain with Wincing Two Palpation Location Piriformis Palpation Findings Soft Tissue Tightness Spasm Muscle Guarding Tenderness Palpation Details Moderate Tone and Tenderness 2 /5 - Pain with Wincing One Palpation Location Multifidi Palpation Findings Soft Tissue Tightness Spasm Muscle Guarding Tenderness Palpation Details Severe Tone and Tenderness 3/5 - Wincing and Withdrawal PT-OP-K Range of Motion Start: 12/21/17 16:51 Freq: Status: Active Protocol: Document 06/18/18 14:30 DCW (Rec: 06/18/18 17:57 DCW [id number]) Lumbar Spine Range of Motion Lumbar Spine Active Degrees Testing Position Standing Flexion 12 Extension 0 Comments Rotation and Lateral Flexion not tested secondary to pain PT-OP-L Special Tests Start: 12/21/17 16:51 Freq: Status: Active Protocol: Document 06/18/18 14:30 DCW (Rec: 06/18/18 17:57 DCW [id number]) Special Tests Lumbar Spine Special Tests Standing Flexion Test Results Lumbar spine unable to flex more than 12 degrees Prone Knee Flexion Test Results Quad tightness Straight Leg Raise Test Results Severe Bilateral pain at 35 degrees Prone Press Up Test Results Complaints of Pain PT-OP-Q Treatments Start: 12/21/17 16:51 Freq: Status: Active Protocol: Document 07/19/18 15:15 RCC (Rec: 07/21/18 16:51 RCC [email or web address]) Manual Therapy Treatment Soft Tissue Mobilization 5 Body Location Proximal Gastroc heads, bilateral Mobilization Type Myofascial Release Strumming Sustained Pressure Trigger Point Release Intensity/Depth Moderate Body Position Prone 4 Body Location Lumbar Paravetebral Musculature Mobilization Type Cross-Friction Instrument Assisted Rolling Strumming Sustained Pressure Trigger Point Release Intensity/Depth Moderate Body Position Prone 3 Body Location Piriformis Mobilization Type Myofascial Release 2 Body Location Quadratus Lumborum Mobilization Type Myofascial Release Strumming Sustained Pressure Trigger Point Release Intensity/Depth Deep Body Position Prone 1 Body Location Multifidi Mobilization Type Myofascial Release Strumming Sustained Pressure Trigger Point Release Intensity/Depth Moderate Body Position Prone PT-OP-R Modalities Start: 12/21/17 16:51 Freq: Status: Active Protocol: Document 07/19/18 15:15 RCC (Rec: 07/21/18 16:51 RCC [email or web address]) Ultrasound Therapy Treatment Right Lower Back Treatment Duration (minutes) 5 Patient Position Prone Coupling Medium Ultrasound Gel Frequency Setting (mHz) 1 Mode Setting Continuous Intensity Setting (w/cm2) 1.2 Left Lower Back Treatment Duration (minutes) 5 Patient Position Prone Coupling Medium Ultrasound Gel Frequency Setting (mHz) 1 Mode Setting Continuous Intensity Setting (w/cm2) 1.2 PT-OP-T Assessment and Plan Start: 12/21/17 16:51 Freq: Status: Active Protocol: Document 07/19/18 15:15 RCC (Rec: 07/21/18 16:51 RCC [email or web address]) Physical Therapy Assessment Assessment Summary Assessment Tone less in the soleus today, but high tone in gastroc and lower back musculature today. Pt able to stand more erect after manual therapy and ultrasound, and he noted less discomfort going from sit to stand after treatment. Physical Therapy Plan Frequency and Duration Frequency of Treatment 2x/Week Duration of Treatment 12 weeks Plan of Care Start Date 06/18/18 Plan of Care End Date 09/18/18 Next Visit Focus/Plan Next Note Type Treatment Note Next Visit Plan manual therapy and modalities for pain and tone management as tolerated.
--- NOTE | 2018-07-23 17:41 | PT.OTN ---
Current Diagnoses Unspecified inflammatory spondylopathy, lumbar region (07/23/18) Physical Therapy Treatment Note PT-OP-A Visit Information Start: 12/21/17 16:51 Freq: Status: Active Protocol: Document 07/23/18 14:30 DCW (Rec: 07/23/18 17:40 DCW [id number]) Out-Patient Physical Therapy Visit Information Visit Information Visit Type Treatment Note Visit Start Time 14:30 Visit Stop Time 15:15 Total Visit Minutes 45 Visit Number 31 Number of PLEATING SUPERVISOR Visits 0 Evaluation Information Evaluation Date 12/21/17 PT-OP-B Current Condition Start: 12/21/17 16:51 Freq: Status: Active Protocol: Document 03/27/18 14:30 DCW (Rec: 03/27/18 14:43 DCW [id number]) Current Condition Current Functional Impairments (Reported) Functional Limitations- ADL's Pain with standing for 10+ minutes Pain with sitting 30+ minutes Pain disturbs sleep Unable to drive 30+ minutes Functional Limitations- Mobility/Gait Pt reports he must drive from his house to the barn, which is ~100 yards away. 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 Personal Factors Other Personal Factors That May Effect Morbid Obesity, Neuropathy, Therapy/Recovery Phrenic nerve palsy, cervical spinal fusion PT-OP-C Subjective Start: 12/21/17 16:51 Freq: Status: Active Protocol: Document 07/23/18 14:30 DCW (Rec: 07/23/18 17:40 DCW [id number]) OP-PT Subjective Patient Comments Patient Comments Pt reports he is pretty sore today, but has been able to stand up straighter recently, which helps me feel more human. PT-OP-F Manual Assessment Start: 12/21/17 16:51 Freq: Status: Active Protocol: Document 06/18/18 14:30 DCW (Rec: 06/18/18 17:57 DCW [id number]) Manual Assessments Joint Mobility Assessment Joint Mobility Assessment P->A hypomobility and 3/5 - Wincing and Withdrawal tenderness in L1-L5 and bilateral SI joints PT-OP-J Posture/Palpation/Skin Start: 12/21/17 16:51 Freq: Status: Active Protocol: Document 06/18/18 14:30 DCW (Rec: 06/18/18 17:57 DCW [id number]) Palpation Assessment Location Four Palpation Location Gluteus Max Palpation Findings Soft Tissue Tightness Spasm Muscle Guarding Tenderness Palpation Details Moderate Tone and Tenderness 2 /5 - Pain with Wincing Three Palpation Location Quadratus Lumborum Palpation Findings Soft Tissue Tightness Spasm Muscle Guarding Tenderness Palpation Details Moderate Tone and Tenderness 2 /5 - Pain with Wincing Two Palpation Location Piriformis Palpation Findings Soft Tissue Tightness Spasm Muscle Guarding Tenderness Palpation Details Moderate Tone and Tenderness 2 /5 - Pain with Wincing One Palpation Location Multifidi Palpation Findings Soft Tissue Tightness Spasm Muscle Guarding Tenderness Palpation Details Severe Tone and Tenderness 3/5 - Wincing and Withdrawal PT-OP-K Range of Motion Start: 12/21/17 16:51 Freq: Status: Active Protocol: Document 06/18/18 14:30 DCW (Rec: 06/18/18 17:57 DCW [id number]) Lumbar Spine Range of Motion Lumbar Spine Active Degrees Testing Position Standing Flexion 12 Extension 0 Comments Rotation and Lateral Flexion not tested secondary to pain PT-OP-L Special Tests Start: 12/21/17 16:51 Freq: Status: Active Protocol: Document 06/18/18 14:30 DCW (Rec: 06/18/18 17:57 DCW [id number]) Special Tests Lumbar Spine Special Tests Standing Flexion Test Results Lumbar spine unable to flex more than 12 degrees Prone Knee Flexion Test Results Quad tightness Straight Leg Raise Test Results Severe Bilateral pain at 35 degrees Prone Press Up Test Results Complaints of Pain PT-OP-Q Treatments Start: 12/21/17 16:51 Freq: Status: Active Protocol: Document 07/23/18 14:30 DCW (Rec: 07/23/18 17:40 DCW [id number]) Manual Therapy Treatment Soft Tissue Mobilization 5 Body Location Proximal Gastroc heads, bilateral Mobilization Type Myofascial Release Strumming Sustained Pressure Trigger Point Release Intensity/Depth Moderate Body Position Prone 4 Body Location Lumbar Paravetebral Musculature Mobilization Type Cross-Friction Instrument Assisted Rolling Strumming Sustained Pressure Trigger Point Release Intensity/Depth Moderate Body Position Prone 3 Body Location Piriformis Mobilization Type Myofascial Release 2 Body Location Quadratus Lumborum Mobilization Type Myofascial Release Strumming Sustained Pressure Trigger Point Release Intensity/Depth Deep Body Position Prone 1 Body Location Multifidi Mobilization Type Myofascial Release Strumming Sustained Pressure Trigger Point Release Intensity/Depth Moderate Body Position Prone Joint Mobilizations 1 Joint Lumbar 1-5 Direction P->A Grade III Body Position Prone PT-OP-R Modalities Start: 12/21/17 16:51 Freq: Status: Active Protocol: Document 07/23/18 14:30 DCW (Rec: 07/23/18 17:40 DCW [id number]) Ultrasound Therapy Treatment Right Lower Back Treatment Duration (minutes) 5 Patient Position Prone Coupling Medium Ultrasound Gel Frequency Setting (mHz) 1 Mode Setting Continuous Intensity Setting (w/cm2) 1.2 Left Lower Back Treatment Duration (minutes) 5 Patient Position Prone Coupling Medium Ultrasound Gel Frequency Setting (mHz) 1 Mode Setting Continuous Intensity Setting (w/cm2) 1.2 PT-OP-T Assessment and Plan Start: 12/21/17 16:51 Freq: Status: Active Protocol: Document 07/23/18 14:30 DCW (Rec: 07/23/18 17:40 DCW [id number]) Physical Therapy Assessment Impairments Impairments Activity Tolerance Balance Pain Posture ROM Soft Tissue Mobility Tone Goals Six Impairment Activity Tolerance Short Term Goal (STG) Pt to report ability to drive for 60 minutes with no increased pain STG Duration 08/02/18 - improving - 20 minutes Lead Supply Worker Goal (LTG) Pt to report ability to walk down to his barn from the house (100 yards) with no increased pain LTG Duration 09/18/18 - Improving - walk down and correction back Five Impairment Pain Short Term Goal (STG) Pt to report pain at worst 7/ 10 STG Duration 08/02/18 Lead Supply Worker Goal (LTG) Pt to report pain at worst 4/ 10 LTG Duration 09/18/18 Four Impairment SLR Lead Supply Worker Goal (LTG) SLR to 50 degrees without increased pain LTG Duration 09/18/18 Three Impairment Joint Mobility Lead Supply Worker Goal (LTG) P->A mobility of L1-5 to WNL LTG Duration 09/18/17 Two Impairment Muscle Tone Jail Goal (LTG) Multifidi, QL, Glute Max, and Piriformis tone to Mild LTG Duration 09/18/17 - Improving, all but multifidi from severe->mod tone One Impairment Palpation Tenderness Jail Goal (LTG) Low back tenderness to palpation down to 1/5 - Complaint of pain LTG Duration 09/18/18 - Improving - down from 3/4 to 2/4 in most areas Assessment Summary Assessment Pt overall presented today with decreased tone in the paraspinals and QL, did have some new complaints about right upper trap pain. Physical Therapy Plan Frequency and Duration Frequency of Treatment 2x/Week Duration of Treatment 12 weeks Plan of Care Start Date 06/18/18 Plan of Care End Date 09/18/18 Therapeutic Interventions Therapeutic Interventions Aquatic Therapy Home Exercise Program Joint Mobilizations Manual Therapy Neuromuscular Re-education Patient/Caregiver Education Soft Tissue Mobilization Therapeutic Exercises Vestibular Rehabilitation Modalities Cold Pack/Ice Massage Electric Stimulation Hot Packs Ultrasound Next Visit Focus/Plan Next Note Type Treatment Note Next Visit Plan Manual therapy for decreasing spasm, modalities (US, E-stim) .
--- NOTE | 2018-08-01 16:55 | PT.OTN ---
Current Diagnoses Unspecified inflammatory spondylopathy, lumbar region (08/01/18) Physical Therapy Treatment Note PT-OP-A Visit Information Start: 12/21/17 16:51 Freq: Status: Active Protocol: Document 08/01/18 16:00 DCW (Rec: 08/01/18 16:55 DCW [id number]) Out-Patient Physical Therapy Visit Information Visit Information Visit Type Treatment Note Visit Start Time 16:00 Visit Stop Time 16:45 Total Visit Minutes 45 Visit Number 32 Number of SALOONKEEPER Visits 0 Evaluation Information Evaluation Date 12/21/17 PT-OP-B Current Condition Start: 12/21/17 16:51 Freq: Status: Active Protocol: Document 03/27/18 14:30 DCW (Rec: 03/27/18 14:43 DCW [id number]) Current Condition Current Functional Impairments (Reported) Functional Limitations- ADL's Pain with standing for 10+ minutes Pain with sitting 30+ minutes Pain disturbs sleep Unable to drive 30+ minutes Functional Limitations- Mobility/Gait Pt reports he must drive from his house to the barn, which is ~100 yards away. 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 Personal Factors Other Personal Factors That May Effect Morbid Obesity, Neuropathy, Therapy/Recovery Phrenic nerve palsy, cervical spinal fusion PT-OP-C Subjective Start: 12/21/17 16:51 Freq: Status: Active Protocol: Document 08/01/18 16:00 DCW (Rec: 08/01/18 16:55 DCW [id number]) OP-PT Subjective Patient Comments Patient Comments Pt reports that he was seen by Dr Street, who decided that his muscles have loosened up enough to attempt injections, which are tentitively scheduled for Aug 14. PT-OP-F Manual Assessment Start: 12/21/17 16:51 Freq: Status: Active Protocol: Document 06/18/18 14:30 DCW (Rec: 06/18/18 17:57 DCW [id number]) Manual Assessments Joint Mobility Assessment Joint Mobility Assessment P->A hypomobility and 3/5 - Wincing and Withdrawal tenderness in L1-L5 and bilateral SI joints PT-OP-J Posture/Palpation/Skin Start: 12/21/17 16:51 Freq: Status: Active Protocol: Document 06/18/18 14:30 DCW (Rec: 06/18/18 17:57 DCW [id number]) Palpation Assessment Location Four Palpation Location Gluteus Max Palpation Findings Soft Tissue Tightness Spasm Muscle Guarding Tenderness Palpation Details Moderate Tone and Tenderness 2 /5 - Pain with Wincing Three Palpation Location Quadratus Lumborum Palpation Findings Soft Tissue Tightness Spasm Muscle Guarding Tenderness Palpation Details Moderate Tone and Tenderness 2 /5 - Pain with Wincing Two Palpation Location Piriformis Palpation Findings Soft Tissue Tightness Spasm Muscle Guarding Tenderness Palpation Details Moderate Tone and Tenderness 2 /5 - Pain with Wincing One Palpation Location Multifidi Palpation Findings Soft Tissue Tightness Spasm Muscle Guarding Tenderness Palpation Details Severe Tone and Tenderness 3/5 - Wincing and Withdrawal PT-OP-K Range of Motion Start: 12/21/17 16:51 Freq: Status: Active Protocol: Document 06/18/18 14:30 DCW (Rec: 06/18/18 17:57 DCW [id number]) Lumbar Spine Range of Motion Lumbar Spine Active Degrees Testing Position Standing Flexion 12 Extension 0 Comments Rotation and Lateral Flexion not tested secondary to pain PT-OP-L Special Tests Start: 12/21/17 16:51 Freq: Status: Active Protocol: Document 06/18/18 14:30 DCW (Rec: 06/18/18 17:57 DCW [id number]) Special Tests Lumbar Spine Special Tests Standing Flexion Test Results Lumbar spine unable to flex more than 12 degrees Prone Knee Flexion Test Results Quad tightness Straight Leg Raise Test Results Severe Bilateral pain at 35 degrees Prone Press Up Test Results Complaints of Pain PT-OP-Q Treatments Start: 12/21/17 16:51 Freq: Status: Active Protocol: Document 08/01/18 16:00 DCW (Rec: 08/01/18 16:55 DCW [id number]) Manual Therapy Treatment Soft Tissue Mobilization 5 Body Location Proximal Gastroc heads, bilateral Mobilization Type Myofascial Release Strumming Sustained Pressure Trigger Point Release Intensity/Depth Moderate Body Position Prone 4 Body Location Lumbar Paravetebral Musculature Mobilization Type Cross-Friction Instrument Assisted Rolling Strumming Sustained Pressure Trigger Point Release Intensity/Depth Moderate Body Position Prone 3 Body Location Piriformis Mobilization Type Myofascial Release 2 Body Location Quadratus Lumborum Mobilization Type Myofascial Release Strumming Sustained Pressure Trigger Point Release Intensity/Depth Deep Body Position Prone 1 Body Location Multifidi Mobilization Type Myofascial Release Strumming Sustained Pressure Trigger Point Release Intensity/Depth Moderate Body Position Prone Joint Mobilizations 1 Joint Lumbar 1-5 Direction P->A Grade III Body Position Prone Manual Traction Lower Extremity Details Long-axis lower extremity traction Body Position Prone Comments bilateral PT-OP-R Modalities Start: 12/21/17 16:51 Freq: Status: Active Protocol: Document 08/01/18 16:00 DCW (Rec: 08/01/18 16:55 DCW [id number]) Ultrasound Therapy Treatment Right Lower Back Treatment Duration (minutes) 5 Patient Position Prone Coupling Medium Ultrasound Gel Frequency Setting (mHz) 1 Mode Setting Continuous Intensity Setting (w/cm2) 1.2 Left Lower Back Treatment Duration (minutes) 5 Patient Position Prone Coupling Medium Ultrasound Gel Frequency Setting (mHz) 1 Mode Setting Continuous Intensity Setting (w/cm2) 1.2 PT-OP-T Assessment and Plan Start: 12/21/17 16:51 Freq: Status: Active Protocol: Document 08/01/18 16:00 DCW (Rec: 08/01/18 16:55 DCW [id number]) Physical Therapy Assessment Impairments Impairments Activity Tolerance Balance Pain Posture ROM Soft Tissue Mobility Tone Goals Six Impairment Activity Tolerance Short Term Goal (STG) Pt to report ability to drive for 60 minutes with no increased pain STG Duration 08/02/18 - improving - 20 minutes Half-Way Goal (LTG) Pt to report ability to walk down to his barn from the house (100 yards) with no increased pain LTG Duration 09/18/18 - Improving - walk down and care home back Five Impairment Pain Short Term Goal (STG) Pt to report pain at worst 7/ 10 STG Duration 08/02/18 Half-[address] Goal (LTG) Pt to report pain at worst 4/ 10 LTG Duration 09/18/18 Four Impairment SLR Half-Way Goal (LTG) SLR to 50 degrees without increased pain LTG Duration 09/18/18 Three Impairment Joint Mobility Half-Way Goal (LTG) P->A mobility of L1-5 to WNL LTG Duration 09/18/17 Two Impairment Muscle Tone Half-Way Goal (LTG) Multifidi, QL, Glute Max, and Piriformis tone to Mild LTG Duration 09/18/17 - Improving, all but multifidi from severe->mod tone One Impairment Palpation Tenderness Half-Way Goal (LTG) Low back tenderness to palpation down to 1/5 - Complaint of pain LTG Duration 09/18/18 - Improving - down from 3/4 to 2/4 in most areas Assessment Summary Assessment Pt able to stand up straighter and walk farther, but his knees have been worsening. Physical Therapy Plan Frequency and Duration Frequency of Treatment 2x/Week Duration of Treatment 12 weeks Plan of Care Start Date 06/18/18 Plan of Care End Date 09/18/18 Therapeutic Interventions Therapeutic Interventions Aquatic Therapy Home Exercise Program Joint Mobilizations Manual Therapy Neuromuscular Re-education Patient/Caregiver Education Soft Tissue Mobilization Therapeutic Exercises Vestibular Rehabilitation Modalities Cold Pack/Ice Massage Electric Stimulation Hot Packs Ultrasound Next Visit Focus/Plan Next Note Type Treatment Note Next Visit Plan Manual therapy for decreasing spasm, modalities (US, E-stim) .
--- NOTE | 2018-08-14 16:04 | PT.OTN ---
Current Diagnoses Unspecified inflammatory spondylopathy, lumbar region (08/14/18) Physical Therapy Treatment Note PT-OP-A Visit Information Start: 12/21/17 16:51 Freq: Status: Active Protocol: Document 08/14/18 15:15 DCW (Rec: 08/14/18 16:04 DCW [id number]) Out-Patient Physical Therapy Visit Information Visit Information Visit Type Treatment Note Visit Start Time 15:15 Visit Stop Time 16:00 Total Visit Minutes 45 Visit Number 33 Number of FIRE WATCHMAN Visits 0 Evaluation Information Evaluation Date 12/21/17 PT-OP-B Current Condition Start: 12/21/17 16:51 Freq: Status: Active Protocol: Document 03/27/18 14:30 DCW (Rec: 03/27/18 14:43 DCW [id number]) Current Condition Current Functional Impairments (Reported) Functional Limitations- ADL's Pain with standing for 10+ minutes Pain with sitting 30+ minutes Pain disturbs sleep Unable to drive 30+ minutes Functional Limitations- Mobility/Gait Pt reports he must drive from his house to the barn, which is ~100 yards away. 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 Personal Factors Other Personal Factors That May Effect Morbid Obesity, Neuropathy, Therapy/Recovery Phrenic nerve palsy, cervical spinal fusion PT-OP-C Subjective Start: 12/21/17 16:51 Freq: Status: Active Protocol: Document 08/14/18 15:15 DCW (Rec: 08/14/18 16:04 DCW [id number]) OP-PT Subjective Patient Comments Patient Comments Since the last time I saw you , Jad did his thing, and was very happy that everything was relaxed enough, he had an easy time getting in. PT-OP-F Manual Assessment Start: 12/21/17 16:51 Freq: Status: Active Protocol: Document 06/18/18 14:30 DCW (Rec: 06/18/18 17:57 DCW [id number]) Manual Assessments Joint Mobility Assessment Joint Mobility Assessment P->A hypomobility and 3/5 - Wincing and Withdrawal tenderness in L1-L5 and bilateral SI joints PT-OP-J Posture/Palpation/Skin Start: 12/21/17 16:51 Freq: Status: Active Protocol: Document 06/18/18 14:30 DCW (Rec: 06/18/18 17:57 DCW [id number]) Palpation Assessment Location Four Palpation Location Gluteus Max Palpation Findings Soft Tissue Tightness Spasm Muscle Guarding Tenderness Palpation Details Moderate Tone and Tenderness 2 /5 - Pain with Wincing Three Palpation Location Quadratus Lumborum Palpation Findings Soft Tissue Tightness Spasm Muscle Guarding Tenderness Palpation Details Moderate Tone and Tenderness 2 /5 - Pain with Wincing Two Palpation Location Piriformis Palpation Findings Soft Tissue Tightness Spasm Muscle Guarding Tenderness Palpation Details Moderate Tone and Tenderness 2 /5 - Pain with Wincing One Palpation Location Multifidi Palpation Findings Soft Tissue Tightness Spasm Muscle Guarding Tenderness Palpation Details Severe Tone and Tenderness 3/5 - Wincing and Withdrawal PT-OP-K Range of Motion Start: 12/21/17 16:51 Freq: Status: Active Protocol: Document 06/18/18 14:30 DCW (Rec: 06/18/18 17:57 DCW [id number]) Lumbar Spine Range of Motion Lumbar Spine Active Degrees Testing Position Standing Flexion 12 Extension 0 Comments Rotation and Lateral Flexion not tested secondary to pain PT-OP-L Special Tests Start: 12/21/17 16:51 Freq: Status: Active Protocol: Document 06/18/18 14:30 DCW (Rec: 06/18/18 17:57 DCW [id number]) Special Tests Lumbar Spine Special Tests Standing Flexion Test Results Lumbar spine unable to flex more than 12 degrees Prone Knee Flexion Test Results Quad tightness Straight Leg Raise Test Results Severe Bilateral pain at 35 degrees Prone Press Up Test Results Complaints of Pain PT-OP-Q Treatments Start: 12/21/17 16:51 Freq: Status: Active Protocol: Document 08/14/18 15:15 DCW (Rec: 08/14/18 16:04 DCW [id number]) Manual Therapy Treatment Soft Tissue Mobilization 5 Body Location Proximal Gastroc heads, bilateral Mobilization Type Myofascial Release Strumming Sustained Pressure Trigger Point Release Intensity/Depth Moderate Body Position Prone 4 Body Location Lumbar Paravetebral Musculature Mobilization Type Cross-Friction Instrument Assisted Rolling Strumming Sustained Pressure Trigger Point Release Intensity/Depth Moderate Body Position Prone 3 Body Location Piriformis Mobilization Type Myofascial Release 2 Body Location Quadratus Lumborum Mobilization Type Myofascial Release Strumming Sustained Pressure Trigger Point Release Intensity/Depth Deep Body Position Prone 1 Body Location Multifidi Mobilization Type Myofascial Release Strumming Sustained Pressure Trigger Point Release Intensity/Depth Moderate Body Position Prone Joint Mobilizations 1 Joint Lumbar 1-5 Direction P->A Grade III Body Position Prone Manual Traction Lower Extremity Details Long-axis lower extremity traction Body Position Prone Comments bilateral PT-OP-R Modalities Start: 12/21/17 16:51 Freq: Status: Active Protocol: Document 08/14/18 15:15 DCW (Rec: 08/14/18 16:04 DCW [id number]) Ultrasound Therapy Treatment Right Lower Back Treatment Duration (minutes) 5 Patient Position Prone Coupling Medium Ultrasound Gel Frequency Setting (mHz) 1 Mode Setting Continuous Intensity Setting (w/cm2) 1.2 Left Lower Back Treatment Duration (minutes) 5 Patient Position Prone Coupling Medium Ultrasound Gel Frequency Setting (mHz) 1 Mode Setting Continuous Intensity Setting (w/cm2) 1.2 PT-OP-T Assessment and Plan Start: 12/21/17 16:51 Freq: Status: Active Protocol: Document 08/14/18 15:15 DCW (Rec: 08/14/18 16:04 DCW [id number]) Physical Therapy Assessment Impairments Impairments Activity Tolerance Balance Pain Posture ROM Soft Tissue Mobility Tone Goals Six Impairment Activity Tolerance Short Term Goal (STG) Pt to report ability to drive for 60 minutes with no increased pain STG Duration 08/02/18 - improving - 20 minutes Mcfp Goal (LTG) Pt to report ability to walk down to his barn from the house (100 yards) with no increased pain LTG Duration 09/18/18 - Improving - walk down and [facility] back Five Impairment Pain Short Term Goal (STG) Pt to report pain at worst 7/ 10 STG Duration 08/02/18 Mcfp Goal (LTG) Pt to report pain at worst 4/ 10 LTG Duration 09/18/18 Four Impairment SLR Airport Operations Manager Goal (LTG) SLR to 50 degrees without increased pain LTG Duration 09/18/18 Three Impairment Joint Mobility Airport Operations Manager Goal (LTG) P->A mobility of L1-5 to WNL LTG Duration 09/18/17 Two Impairment Muscle Tone Airport Operations Manager Goal (LTG) Multifidi, QL, Glute Max, and Piriformis tone to Mild LTG Duration 09/18/17 - Improving, all but multifidi from severe->mod tone One Impairment Palpation Tenderness Mcfp Goal (LTG) Low back tenderness to palpation down to 1/5 - Complaint of pain LTG Duration 09/18/18 - Improving - down from 3/4 to 2/4 in most areas Assessment Summary Assessment Pt displaying decreased tone in left proximal calf, however right continues to have noticeable tone and increased pain/tightness for pt. Physical Therapy Plan Frequency and Duration Frequency of Treatment 2x/Week Duration of Treatment 12 weeks Plan of Care Start Date 06/18/18 Plan of Care End Date 09/18/18 Therapeutic Interventions Therapeutic Interventions Aquatic Therapy Home Exercise Program Joint Mobilizations Manual Therapy Neuromuscular Re-education Patient/Caregiver Education Soft Tissue Mobilization Therapeutic Exercises Vestibular Rehabilitation Modalities Cold Pack/Ice Massage Electric Stimulation Hot Packs Ultrasound Next Visit Focus/Plan Next Note Type Treatment Note Next Visit Plan Manual therapy for decreasing spasm, modalities (US, E-stim) .
--- NOTE | 2018-08-21 15:16 | PT.OTN ---
Current Diagnoses Unspecified inflammatory spondylopathy, lumbar region (08/21/18) Physical Therapy Treatment Note PT-OP-A Visit Information Start: 12/21/17 16:51 Freq: Status: Active Protocol: Document 08/21/18 14:30 DCW (Rec: 08/21/18 15:16 DCW [id number]) Out-Patient Physical Therapy Visit Information Visit Information Visit Type Treatment Note Visit Start Time 14:30 Visit Stop Time 15:15 Total Visit Minutes 45 Visit Number 34 Number of BUILDING SERVICES COORDINATOR Visits 0 Evaluation Information Evaluation Date 12/21/17 PT-OP-B Current Condition Start: 12/21/17 16:51 Freq: Status: Active Protocol: Document 03/27/18 14:30 DCW (Rec: 03/27/18 14:43 DCW [id number]) Current Condition Current Functional Impairments (Reported) Functional Limitations- ADL's Pain with standing for 10+ minutes Pain with sitting 30+ minutes Pain disturbs sleep Unable to drive 30+ minutes Functional Limitations- Mobility/Gait Pt reports he must drive from his house to the barn, which is ~100 yards away. 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 Personal Factors Other Personal Factors That May Effect Morbid Obesity, Neuropathy, Therapy/Recovery Phrenic nerve palsy, cervical spinal fusion PT-OP-C Subjective Start: 12/21/17 16:51 Freq: Status: Active Protocol: Document 08/21/18 14:30 DCW (Rec: 08/21/18 15:16 DCW [id number]) OP-PT Subjective Patient Comments Patient Comments Knees are killing me, back it a bit sore. PT-OP-F Manual Assessment Start: 12/21/17 16:51 Freq: Status: Active Protocol: Document 06/18/18 14:30 DCW (Rec: 06/18/18 17:57 DCW [id number]) Manual Assessments Joint Mobility Assessment Joint Mobility Assessment P->A hypomobility and 3/5 - Wincing and Withdrawal tenderness in L1-L5 and bilateral SI joints PT-OP-J Posture/Palpation/Skin Start: 12/21/17 16:51 Freq: Status: Active Protocol: Document 06/18/18 14:30 DCW (Rec: 06/18/18 17:57 DCW [id number]) Palpation Assessment Location Four Palpation Location Gluteus Max Palpation Findings Soft Tissue Tightness Spasm Muscle Guarding Tenderness Palpation Details Moderate Tone and Tenderness 2 /5 - Pain with Wincing Three Palpation Location Quadratus Lumborum Palpation Findings Soft Tissue Tightness Spasm Muscle Guarding Tenderness Palpation Details Moderate Tone and Tenderness 2 /5 - Pain with Wincing Two Palpation Location Piriformis Palpation Findings Soft Tissue Tightness Spasm Muscle Guarding Tenderness Palpation Details Moderate Tone and Tenderness 2 /5 - Pain with Wincing One Palpation Location Multifidi Palpation Findings Soft Tissue Tightness Spasm Muscle Guarding Tenderness Palpation Details Severe Tone and Tenderness 3/5 - Wincing and Withdrawal PT-OP-K Range of Motion Start: 12/21/17 16:51 Freq: Status: Active Protocol: Document 06/18/18 14:30 DCW (Rec: 06/18/18 17:57 DCW [id number]) Lumbar Spine Range of Motion Lumbar Spine Active Degrees Testing Position Standing Flexion 12 Extension 0 Comments Rotation and Lateral Flexion not tested secondary to pain PT-OP-L Special Tests Start: 12/21/17 16:51 Freq: Status: Active Protocol: Document 06/18/18 14:30 DCW (Rec: 06/18/18 17:57 DCW [id number]) Special Tests Lumbar Spine Special Tests Standing Flexion Test Results Lumbar spine unable to flex more than 12 degrees Prone Knee Flexion Test Results Quad tightness Straight Leg Raise Test Results Severe Bilateral pain at 35 degrees Prone Press Up Test Results Complaints of Pain PT-OP-Q Treatments Start: 12/21/17 16:51 Freq: Status: Active Protocol: Document 08/21/18 14:30 DCW (Rec: 08/21/18 15:16 DCW [id number]) Manual Therapy Treatment Soft Tissue Mobilization 5 Body Location Proximal Gastroc heads, bilateral Mobilization Type Myofascial Release Strumming Sustained Pressure Trigger Point Release Intensity/Depth Moderate Body Position Prone 4 Body Location Lumbar Paravetebral Musculature Mobilization Type Cross-Friction Instrument Assisted Rolling Strumming Sustained Pressure Trigger Point Release Intensity/Depth Moderate Body Position Prone 3 Body Location Piriformis Mobilization Type Myofascial Release 2 Body Location Quadratus Lumborum Mobilization Type Myofascial Release Strumming Sustained Pressure Trigger Point Release Intensity/Depth Deep Body Position Prone 1 Body Location Multifidi Mobilization Type Myofascial Release Strumming Sustained Pressure Trigger Point Release Intensity/Depth Moderate Body Position Prone Joint Mobilizations 1 Joint Lumbar 1-5 Direction P->A Grade III Body Position Prone Manual Traction Lower Extremity Details Long-axis lower extremity traction Body Position Prone Comments bilateral PT-OP-R Modalities Start: 12/21/17 16:51 Freq: Status: Active Protocol: Document 08/21/18 14:30 DCW (Rec: 08/21/18 15:16 DCW [id number]) Ultrasound Therapy Treatment Right Lower Back Treatment Duration (minutes) 5 Patient Position Prone Coupling Medium Ultrasound Gel Frequency Setting (mHz) 1 Mode Setting Continuous Intensity Setting (w/cm2) 1.2 Left Lower Back Treatment Duration (minutes) 5 Patient Position Prone Coupling Medium Ultrasound Gel Frequency Setting (mHz) 1 Mode Setting Continuous Intensity Setting (w/cm2) 1.2 PT-OP-T Assessment and Plan Start: 12/21/17 16:51 Freq: Status: Active Protocol: Document 08/21/18 14:30 DCW (Rec: 08/21/18 15:16 DCW [id number]) Physical Therapy Assessment Impairments Impairments Activity Tolerance Balance Pain Posture ROM Soft Tissue Mobility Tone Goals Six Impairment Activity Tolerance Short Term Goal (STG) Pt to report ability to drive for 60 minutes with no increased pain STG Duration 08/02/18 - improving - 20 minutes Retirement Goal (LTG) Pt to report ability to walk down to his barn from the house (100 yards) with no increased pain LTG Duration 09/18/18 - Improving - walk down and [facility] back Five Impairment Pain Short Term Goal (STG) Pt to report pain at worst 7/ 10 STG Duration 08/02/18 Building Services Coordinator Goal (LTG) Pt to report pain at worst 4/ 10 LTG Duration 09/18/18 Four Impairment SLR Building Services Coordinator Goal (LTG) SLR to 50 degrees without increased pain LTG Duration 09/18/18 Three Impairment Joint Mobility Building Services Coordinator Goal (LTG) P->A mobility of L1-5 to WNL LTG Duration 09/18/17 Two Impairment Muscle Tone Building Services Coordinator Goal (LTG) Multifidi, QL, Glute Max, and Piriformis tone to Mild LTG Duration 09/18/17 - Improving, all but multifidi from severe->mod tone One Impairment Palpation Tenderness Building Services Coordinator Goal (LTG) Low back tenderness to palpation down to 1/5 - Complaint of pain LTG Duration 09/18/18 - Improving - down from 3/4 to 2/4 in most areas Assessment Summary Assessment Discussed with pt how to stretch his quad at home with use of a chair behind him in standing. Physical Therapy Plan Frequency and Duration Frequency of Treatment 2x/Week Duration of Treatment 12 weeks Plan of Care Start Date 06/18/18 Plan of Care End Date 09/18/18 Therapeutic Interventions Therapeutic Interventions Aquatic Therapy Home Exercise Program Joint Mobilizations Manual Therapy Neuromuscular Re-education Patient/Caregiver Education Soft Tissue Mobilization Therapeutic Exercises Vestibular Rehabilitation Modalities Cold Pack/Ice Massage Electric Stimulation Hot Packs Ultrasound Next Visit Focus/Plan Next Note Type Treatment Note Next Visit Plan Manual therapy for decreasing spasm, modalities (US, E-stim) .
--- NOTE | 2018-08-28 15:15 | PT.OTN ---
Current Diagnoses Unspecified inflammatory spondylopathy, lumbar region (08/28/18) Physical Therapy Treatment Note PT-OP-A Visit Information Start: 12/21/17 16:51 Freq: Status: Active Protocol: Document 08/28/18 14:30 DCW (Rec: 08/28/18 15:15 DCW [id number]) Out-Patient Physical Therapy Visit Information Visit Information Visit Type Treatment Note Visit Start Time 14:30 Visit Stop Time 15:15 Total Visit Minutes 45 Visit Number 35 Number of MEDICAL LANGUAGE SPECIALIST Visits 0 Evaluation Information Evaluation Date 12/21/17 PT-OP-B Current Condition Start: 12/21/17 16:51 Freq: Status: Active Protocol: Document 03/27/18 14:30 DCW (Rec: 03/27/18 14:43 DCW [id number]) Current Condition Current Functional Impairments (Reported) Functional Limitations- ADL's Pain with standing for 10+ minutes Pain with sitting 30+ minutes Pain disturbs sleep Unable to drive 30+ minutes Functional Limitations- Mobility/Gait Pt reports he must drive from his house to the barn, which is ~100 yards away. 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 Personal Factors Other Personal Factors That May Effect Morbid Obesity, Neuropathy, Therapy/Recovery Phrenic nerve palsy, cervical spinal fusion PT-OP-C Subjective Start: 12/21/17 16:51 Freq: Status: Active Protocol: Document 08/28/18 14:30 DCW (Rec: 08/28/18 15:15 DCW [id number]) OP-PT Subjective Patient Comments Patient Comments Pt notes his knees are better than they have been, but they 're still the worst area. PT-OP-F Manual Assessment Start: 12/21/17 16:51 Freq: Status: Active Protocol: Document 06/18/18 14:30 DCW (Rec: 06/18/18 17:57 DCW [id number]) Manual Assessments Joint Mobility Assessment Joint Mobility Assessment P->A hypomobility and 3/5 - Wincing and Withdrawal tenderness in L1-L5 and bilateral SI joints PT-OP-J Posture/Palpation/Skin Start: 12/21/17 16:51 Freq: Status: Active Protocol: Document 06/18/18 14:30 DCW (Rec: 06/18/18 17:57 DCW [id number]) Palpation Assessment Location Four Palpation Location Gluteus Max Palpation Findings Soft Tissue Tightness Spasm Muscle Guarding Tenderness Palpation Details Moderate Tone and Tenderness 2 /5 - Pain with Wincing Three Palpation Location Quadratus Lumborum Palpation Findings Soft Tissue Tightness Spasm Muscle Guarding Tenderness Palpation Details Moderate Tone and Tenderness 2 /5 - Pain with Wincing Two Palpation Location Piriformis Palpation Findings Soft Tissue Tightness Spasm Muscle Guarding Tenderness Palpation Details Moderate Tone and Tenderness 2 /5 - Pain with Wincing One Palpation Location Multifidi Palpation Findings Soft Tissue Tightness Spasm Muscle Guarding Tenderness Palpation Details Severe Tone and Tenderness 3/5 - Wincing and Withdrawal PT-OP-K Range of Motion Start: 12/21/17 16:51 Freq: Status: Active Protocol: Document 06/18/18 14:30 DCW (Rec: 06/18/18 17:57 DCW [id number]) Lumbar Spine Range of Motion Lumbar Spine Active Degrees Testing Position Standing Flexion 12 Extension 0 Comments Rotation and Lateral Flexion not tested secondary to pain PT-OP-L Special Tests Start: 12/21/17 16:51 Freq: Status: Active Protocol: Document 06/18/18 14:30 DCW (Rec: 06/18/18 17:57 DCW [id number]) Special Tests Lumbar Spine Special Tests Standing Flexion Test Results Lumbar spine unable to flex more than 12 degrees Prone Knee Flexion Test Results Quad tightness Straight Leg Raise Test Results Severe Bilateral pain at 35 degrees Prone Press Up Test Results Complaints of Pain PT-OP-Q Treatments Start: 12/21/17 16:51 Freq: Status: Active Protocol: Document 08/28/18 14:30 DCW (Rec: 08/28/18 15:15 DCW [id number]) Manual Therapy Treatment Soft Tissue Mobilization 5 Body Location Proximal Gastroc heads, bilateral Mobilization Type Myofascial Release Strumming Sustained Pressure Trigger Point Release Intensity/Depth Moderate Body Position Prone 4 Body Location Lumbar Paravetebral Musculature Mobilization Type Cross-Friction Instrument Assisted Rolling Strumming Sustained Pressure Trigger Point Release Intensity/Depth Moderate Body Position Prone 3 Body Location Piriformis Mobilization Type Myofascial Release 2 Body Location Quadratus Lumborum Mobilization Type Myofascial Release Strumming Sustained Pressure Trigger Point Release Intensity/Depth Deep Body Position Prone 1 Body Location Multifidi Mobilization Type Myofascial Release Strumming Sustained Pressure Trigger Point Release Intensity/Depth Moderate Body Position Prone Joint Mobilizations 1 Joint Lumbar 1-5 Direction P->A Grade III Body Position Prone Manual Traction Lower Extremity Details Long-axis lower extremity traction Body Position Prone Comments bilateral PT-OP-R Modalities Start: 12/21/17 16:51 Freq: Status: Active Protocol: Document 08/28/18 14:30 DCW (Rec: 08/28/18 15:15 DCW [id number]) Ultrasound Therapy Treatment Right Lower Back Treatment Duration (minutes) 5 Patient Position Prone Coupling Medium Ultrasound Gel Frequency Setting (mHz) 1 Mode Setting Continuous Intensity Setting (w/cm2) 1.2 Left Lower Back Treatment Duration (minutes) 5 Patient Position Prone Coupling Medium Ultrasound Gel Frequency Setting (mHz) 1 Mode Setting Continuous Intensity Setting (w/cm2) 1.2 PT-OP-T Assessment and Plan Start: 12/21/17 16:51 Freq: Status: Active Protocol: Document 08/28/18 14:30 DCW (Rec: 08/28/18 15:15 DCW [id number]) Physical Therapy Assessment Impairments Impairments Activity Tolerance Balance Pain Posture ROM Soft Tissue Mobility Tone Goals Six Impairment Activity Tolerance Short Term Goal (STG) Pt to report ability to drive for 60 minutes with no increased pain STG Duration 08/02/18 - improving - 20 minutes Nursing Home Goal (LTG) Pt to report ability to walk down to his barn from the house (100 yards) with no increased pain LTG Duration 09/18/18 - Improving - walk down and residential back Five Impairment Pain Short Term Goal (STG) Pt to report pain at worst 7/ 10 STG Duration 08/02/18 Nursing Home Goal (LTG) Pt to report pain at worst 4/ 10 LTG Duration 09/18/18 Four Impairment SLR Snack Bar Cashier Goal (LTG) SLR to 50 degrees without increased pain LTG Duration 09/18/18 Three Impairment Joint Mobility Snack Bar Cashier Goal (LTG) P->A mobility of L1-5 to WNL LTG Duration 09/18/17 Two Impairment Muscle Tone Snack Bar Cashier Goal (LTG) Multifidi, QL, Glute Max, and Piriformis tone to Mild LTG Duration 09/18/17 - Improving, all but multifidi from severe->mod tone One Impairment Palpation Tenderness Nursing Home Goal (LTG) Low back tenderness to palpation down to 1/5 - Complaint of pain LTG Duration 09/18/18 - Improving - down from 3/4 to 2/4 in most areas Assessment Summary Assessment Pt gastroc tone continues to improve, pt reporting less back pain and increased ability to stand erect. Physical Therapy Plan Frequency and Duration Frequency of Treatment 2x/Week Duration of Treatment 12 weeks Plan of Care Start Date 06/18/18 Plan of Care End Date 09/18/18 Therapeutic Interventions Therapeutic Interventions Aquatic Therapy Home Exercise Program Joint Mobilizations Manual Therapy Neuromuscular Re-education Patient/Caregiver Education Soft Tissue Mobilization Therapeutic Exercises Vestibular Rehabilitation Modalities Cold Pack/Ice Massage Electric Stimulation Hot Packs Ultrasound Next Visit Focus/Plan Next Note Type Treatment Note Next Visit Plan Manual therapy for decreasing spasm, modalities (US, E-stim) .
--- NOTE | 2018-09-04 16:15 | PT.OTN ---
Current Diagnoses Unspecified inflammatory spondylopathy, lumbar region (09/04/18) Physical Therapy Treatment Note PT-OP-A Visit Information Start: 12/21/17 16:51 Freq: Status: Active Protocol: Document 09/04/18 15:15 DCW (Rec: 09/04/18 16:15 DCW [id number]) Out-Patient Physical Therapy Visit Information Visit Information Visit Type Treatment Note Visit Start Time 15:15 Visit Stop Time 16:03 Total Visit Minutes 45 Visit Number 36 Number of MANNEQUIN COLORING ARTIST Visits 0 Evaluation Information Evaluation Date 12/21/17 PT-OP-B Current Condition Start: 12/21/17 16:51 Freq: Status: Active Protocol: Document 03/27/18 14:30 DCW (Rec: 03/27/18 14:43 DCW [id number]) Current Condition Current Functional Impairments (Reported) Functional Limitations- ADL's Pain with standing for 10+ minutes Pain with sitting 30+ minutes Pain disturbs sleep Unable to drive 30+ minutes Functional Limitations- Mobility/Gait Pt reports he must drive from his house to the barn, which is ~100 yards away. 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 Personal Factors Other Personal Factors That May Effect Morbid Obesity, Neuropathy, Therapy/Recovery Phrenic nerve palsy, cervical spinal fusion PT-OP-C Subjective Start: 12/21/17 16:51 Freq: Status: Active Protocol: Document 09/04/18 15:15 DCW (Rec: 09/04/18 16:15 DCW [id number]) OP-PT Subjective Patient Comments Patient Comments Pt feels like he has been making progress recently. PT-OP-F Manual Assessment Start: 12/21/17 16:51 Freq: Status: Active Protocol: Document 06/18/18 14:30 DCW (Rec: 06/18/18 17:57 DCW [id number]) Manual Assessments Joint Mobility Assessment Joint Mobility Assessment P->A hypomobility and 3/5 - Wincing and Withdrawal tenderness in L1-L5 and bilateral SI joints PT-OP-J Posture/Palpation/Skin Start: 12/21/17 16:51 Freq: Status: Active Protocol: Document 06/18/18 14:30 DCW (Rec: 06/18/18 17:57 DCW [id number]) Palpation Assessment Location Four Palpation Location Gluteus Max Palpation Findings Soft Tissue Tightness Spasm Muscle Guarding Tenderness Palpation Details Moderate Tone and Tenderness 2 /5 - Pain with Wincing Three Palpation Location Quadratus Lumborum Palpation Findings Soft Tissue Tightness Spasm Muscle Guarding Tenderness Palpation Details Moderate Tone and Tenderness 2 /5 - Pain with Wincing Two Palpation Location Piriformis Palpation Findings Soft Tissue Tightness Spasm Muscle Guarding Tenderness Palpation Details Moderate Tone and Tenderness 2 /5 - Pain with Wincing One Palpation Location Multifidi Palpation Findings Soft Tissue Tightness Spasm Muscle Guarding Tenderness Palpation Details Severe Tone and Tenderness 3/5 - Wincing and Withdrawal PT-OP-K Range of Motion Start: 12/21/17 16:51 Freq: Status: Active Protocol: Document 06/18/18 14:30 DCW (Rec: 06/18/18 17:57 DCW [id number]) Lumbar Spine Range of Motion Lumbar Spine Active Degrees Testing Position Standing Flexion 12 Extension 0 Comments Rotation and Lateral Flexion not tested secondary to pain PT-OP-L Special Tests Start: 12/21/17 16:51 Freq: Status: Active Protocol: Document 06/18/18 14:30 DCW (Rec: 06/18/18 17:57 DCW [id number]) Special Tests Lumbar Spine Special Tests Standing Flexion Test Results Lumbar spine unable to flex more than 12 degrees Prone Knee Flexion Test Results Quad tightness Straight Leg Raise Test Results Severe Bilateral pain at 35 degrees Prone Press Up Test Results Complaints of Pain PT-OP-Q Treatments Start: 12/21/17 16:51 Freq: Status: Active Protocol: Document 09/04/18 15:15 DCW (Rec: 09/04/18 16:15 DCW [id number]) Manual Therapy Treatment Soft Tissue Mobilization 5 Body Location Proximal Gastroc heads, bilateral Mobilization Type Myofascial Release Strumming Sustained Pressure Trigger Point Release Intensity/Depth Moderate Body Position Prone 4 Body Location Lumbar Paravetebral Musculature Mobilization Type Cross-Friction Instrument Assisted Rolling Strumming Sustained Pressure Trigger Point Release Intensity/Depth Moderate Body Position Prone 3 Body Location Piriformis Mobilization Type Myofascial Release 2 Body Location Quadratus Lumborum Mobilization Type Myofascial Release Strumming Sustained Pressure Trigger Point Release Intensity/Depth Deep Body Position Prone 1 Body Location Multifidi Mobilization Type Myofascial Release Strumming Sustained Pressure Trigger Point Release Intensity/Depth Moderate Body Position Prone Joint Mobilizations 1 Joint Lumbar 1-5 Direction P->A Grade III Body Position Prone Manual Traction Lower Extremity Details Long-axis lower extremity traction Body Position Prone Comments bilateral PT-OP-R Modalities Start: 12/21/17 16:51 Freq: Status: Active Protocol: Document 09/04/18 15:15 DCW (Rec: 09/04/18 16:15 DCW [id number]) Ultrasound Therapy Treatment Right Lower Back Treatment Duration (minutes) 5 Patient Position Prone Coupling Medium Ultrasound Gel Frequency Setting (mHz) 1 Mode Setting Continuous Intensity Setting (w/cm2) 1.2 Left Lower Back Treatment Duration (minutes) 5 Patient Position Prone Coupling Medium Ultrasound Gel Frequency Setting (mHz) 1 Mode Setting Continuous Intensity Setting (w/cm2) 1.2 PT-OP-T Assessment and Plan Start: 12/21/17 16:51 Freq: Status: Active Protocol: Document 09/04/18 15:15 DCW (Rec: 09/04/18 16:15 DCW [id number]) Physical Therapy Assessment Impairments Impairments Activity Tolerance Balance Pain Posture ROM Soft Tissue Mobility Tone Goals Six Impairment Activity Tolerance Short Term Goal (STG) Pt to report ability to drive for 60 minutes with no increased pain STG Duration 08/02/18 - improving - 20 minutes Construction Electrician Goal (LTG) Pt to report ability to walk down to his barn from the house (100 yards) with no increased pain LTG Duration 09/18/18 - Improving - walk down and residential back Five Impairment Pain Short Term Goal (STG) Pt to report pain at worst 7/ 10 STG Duration 08/02/18 Construction Electrician Goal (LTG) Pt to report pain at worst 4/ 10 LTG Duration 09/18/18 Four Impairment SLR Construction Electrician Goal (LTG) SLR to 50 degrees without increased pain LTG Duration 09/18/18 Three Impairment Joint Mobility Group Home Goal (LTG) P->A mobility of L1-5 to WNL LTG Duration 09/18/17 Two Impairment Muscle Tone Group Home Goal (LTG) Multifidi, QL, Glute Max, and Piriformis tone to Mild LTG Duration 09/18/17 - Improving, all but multifidi from severe->mod tone One Impairment Palpation Tenderness Group Home Goal (LTG) Low back tenderness to palpation down to 1/5 - Complaint of pain LTG Duration 09/18/18 - Improving - down from 3/4 to 2/4 in most areas Assessment Summary Assessment Therapist discussed with patient possibility of using a cane to prevent continued twisting of knee when up walking around, and recommended trying a cane to see if it is effective in reducing injury. Physical Therapy Plan Frequency and Duration Frequency of Treatment 2x/Week Duration of Treatment 12 weeks Plan of Care Start Date 06/18/18 Plan of Care End Date 09/18/18 Therapeutic Interventions Therapeutic Interventions Aquatic Therapy Home Exercise Program Joint Mobilizations Manual Therapy Neuromuscular Re-education Patient/Caregiver Education Soft Tissue Mobilization Therapeutic Exercises Vestibular Rehabilitation Modalities Cold Pack/Ice Massage Electric Stimulation Hot Packs Ultrasound Next Visit Focus/Plan Next Note Type Treatment Note Next Visit Plan Manual therapy for decreasing spasm, modalities (US, E-stim) .
--- NOTE | 2018-09-26 17:37 | PT.OTN ---
Current Diagnoses Unspecified inflammatory spondylopathy, lumbar region (09/26/18) Physical Therapy Treatment Note PT-OP-A Visit Information Start: 12/21/17 16:51 Freq: Status: Active Protocol: Document 09/26/18 14:30 DCW (Rec: 09/26/18 17:37 DCW [id number]) Out-Patient Physical Therapy Visit Information Visit Information Visit Type Progress Note Visit Start Time 14:30 Visit Stop Time 15:15 Total Visit Minutes 45 Visit Number 37 Number of PLANT OPERATOR/SHIFT SUPERVISOR Visits 0 Evaluation Information Evaluation Date 12/21/17 PT-OP-B Current Condition Start: 12/21/17 16:51 Freq: Status: Active Protocol: Document 03/27/18 14:30 DCW (Rec: 03/27/18 14:43 DCW [id number]) Current Condition Current Functional Impairments (Reported) Functional Limitations- ADL's Pain with standing for 10+ minutes Pain with sitting 30+ minutes Pain disturbs sleep Unable to drive 30+ minutes Functional Limitations- Mobility/Gait Pt reports he must drive from his house to the barn, which is ~100 yards away. 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 Personal Factors Other Personal Factors That May Effect Morbid Obesity, Neuropathy, Therapy/Recovery Phrenic nerve palsy, cervical spinal fusion PT-OP-C Subjective Start: 12/21/17 16:51 Freq: Status: Active Protocol: Document 09/26/18 14:30 DCW (Rec: 09/26/18 17:37 DCW [id number]) OP-PT Subjective Patient Comments Patient Comments Pt talked a lot today about really wanting to improve enought that he can stop coming into therapy, because this has been going on too long, but admits he is just not ready yet. PT-OP-F Manual Assessment Start: 12/21/17 16:51 Freq: Status: Active Protocol: Document 09/26/18 14:30 DCW (Rec: 09/26/18 15:13 DCW [id number]) Manual Assessments Joint Mobility Assessment Joint Mobility Assessment P->A hypomobility and 2/5 - Pain with Wincing, tenderness in L1-L5 and bilateral SI joints PT-OP-J Posture/Palpation/Skin Start: 12/21/17 16:51 Freq: Status: Active Protocol: Document 09/26/18 14:30 DCW (Rec: 09/26/18 15:13 DCW [id number]) Palpation Assessment Location Four Palpation Location Gluteus Max Palpation Findings Soft Tissue Tightness Spasm Muscle Guarding Tenderness Palpation Details Moderate Tone and Tenderness 2 /5 - Pain with Wincing Three Palpation Location Quadratus Lumborum Palpation Findings Soft Tissue Tightness Spasm Muscle Guarding Tenderness Palpation Details Moderate Tone and Tenderness 2 /5 - Pain with Wincing Two Palpation Location Piriformis Palpation Findings Soft Tissue Tightness Spasm Muscle Guarding Tenderness Palpation Details Moderate Tone and Tenderness 2 /5 - Pain with Wincing One Palpation Location Multifidi Palpation Findings Soft Tissue Tightness Spasm Muscle Guarding Tenderness Palpation Details Moderate Tone and Tenderness 2 /5 - Pain with Wincing PT-OP-K Range of Motion Start: 12/21/17 16:51 Freq: Status: Active Protocol: Document 09/26/18 14:30 DCW (Rec: 09/26/18 15:13 DCW [id number]) Lumbar Spine Range of Motion Lumbar Spine Active Degrees Testing Position Standing Flexion 15 Extension 0 Comments Rotation and Lateral Flexion not tested secondary to pain PT-OP-L Special Tests Start: 12/21/17 16:51 Freq: Status: Active Protocol: Document 09/26/18 14:30 DCW (Rec: 09/26/18 15:13 DCW [id number]) Special Tests Lumbar Spine Special Tests Standing Flexion Test Results Lumbar spine unable to flex more than 15 degrees Prone Knee Flexion Test Results Quad tightness Straight Leg Raise Test Results Severe Bilateral pain at 35 degrees Prone Press Up Test Results Complaints of Pain PT-OP-Q Treatments Start: 12/21/17 16:51 Freq: Status: Active Protocol: Document 09/26/18 14:30 DCW (Rec: 09/26/18 17:37 DCW [id number]) Manual Therapy Treatment Soft Tissue Mobilization 5 Body Location Proximal Gastroc heads, bilateral Mobilization Type Myofascial Release Strumming Sustained Pressure Trigger Point Release Intensity/Depth Moderate Body Position Prone 4 Body Location Lumbar Paravetebral Musculature Mobilization Type Cross-Friction Instrument Assisted Rolling Strumming Sustained Pressure Trigger Point Release Intensity/Depth Moderate Body Position Prone 3 Body Location Piriformis Mobilization Type Myofascial Release 2 Body Location Quadratus Lumborum Mobilization Type Myofascial Release Strumming Sustained Pressure Trigger Point Release Intensity/Depth Deep Body Position Prone 1 Body Location Multifidi Mobilization Type Myofascial Release Strumming Sustained Pressure Trigger Point Release Intensity/Depth Moderate Body Position Prone Joint Mobilizations 1 Joint Lumbar 1-5 Direction P->A Grade III Body Position Prone Manual Traction Lower Extremity Details Long-axis lower extremity traction Body Position Prone Comments bilateral PT-OP-R Modalities Start: 12/21/17 16:51 Freq: Status: Active Protocol: Document 09/26/18 14:30 DCW (Rec: 09/26/18 17:37 DCW [id number]) Ultrasound Therapy Treatment Right Lower Back Treatment Duration (minutes) 5 Patient Position Prone Coupling Medium Ultrasound Gel Frequency Setting (mHz) 1 Mode Setting Continuous Intensity Setting (w/cm2) 1.2 Left Lower Back Treatment Duration (minutes) 5 Patient Position Prone Coupling Medium Ultrasound Gel Frequency Setting (mHz) 1 Mode Setting Continuous Intensity Setting (w/cm2) 1.2 PT-OP-T Assessment and Plan Start: 12/21/17 16:51 Freq: Status: Active Protocol: Document 09/26/18 14:30 DCW (Rec: 09/26/18 17:37 DCW [id number]) Physical Therapy Assessment Impairments Impairments Activity Tolerance Balance Pain Posture ROM Soft Tissue Mobility Tone Goals Six Impairment Activity Tolerance Short Term Goal (STG) Pt to report ability to drive for 60 minutes with no increased pain STG Duration 10/24/18 - improving - 20 minutes [facility] Goal (LTG) Pt to report ability to walk down to his barn from the house (100 yards) with no increased pain LTG Duration 11/24/18 - Improving - walk down and senior care back Five Impairment Pain Short Term Goal (STG) Pt to report pain at worst 7/ 10 STG Duration 10/24/18 Fuel Oil Clerk Goal (LTG) Pt to report pain at worst 4/ 10 LTG Duration 11/24/18 Four Impairment SLR [facility] Goal (LTG) SLR to 50 degrees without increased pain LTG Duration 11/24/18 Three Impairment Joint Mobility Fuel Oil Clerk Goal (LTG) P->A mobility of L1-5 to WNL LTG Duration 11/24/18 - Improving Two Impairment Muscle Tone [facility] Goal (LTG) Multifidi, QL, Glute Max, and Piriformis tone to Mild LTG Duration 11/24/18 - Improving, all from severe->mod tone One Impairment Palpation Tenderness Fuel Oil Clerk Goal (LTG) Low back tenderness to palpation down to 1/5 - Complaint of pain LTG Duration 11/24/18 - Improving - down from 3/4 to 2/4 in all areas Assessment Summary Assessment Pt making improvements in tone and pain levels, however progress has been slow. Additional improvement has been made by pt losing more than 100 pounds since beginning therapy, however he is somewhat disappointed, because he feels like he should have improved more with that much weight-loss. Physical Therapy Plan Frequency and Duration Frequency of Treatment 2x/Week Duration of Treatment 12 weeks Plan of Care Start Date 09/26/18 Plan of Care End Date 12/19/18 Therapeutic Interventions Therapeutic Interventions Aquatic Therapy Home Exercise Program Joint Mobilizations Manual Therapy Neuromuscular Re-education Patient/Caregiver Education Soft Tissue Mobilization Therapeutic Exercises Vestibular Rehabilitation Modalities Cold Pack/Ice Massage Electric Stimulation Hot Packs Ultrasound Next Visit Focus/Plan Next Note Type Treatment Note Next Visit Plan Manual therapy for decreasing spasm, modalities (US, E-stim) .
--- NOTE | 2018-09-26 17:37 | PT.OPPOC ---
Current Diagnoses Unspecified inflammatory spondylopathy, lumbar region (09/26/18) Provider Visit Care Team Role Provider Type Jhon Taylor MD Family Provider Physician Primary Care Provider Specialty: Internal Medicine Address: [address] [place] [address], [id number] Email: Hay Wagner DO Attending Provider Physician Specialty: Physiatry Pain Management Address: [address] [place] [address], [id number] Email: Plan Of Care PT-OP-T Assessment and Plan Start: 12/21/17 16:51 Freq: Status: Active Protocol: Document 09/26/18 14:30 DCW (Rec: 09/26/18 17:37 DCW [id number]) Physical Therapy Assessment Impairments Impairments Activity Tolerance Balance Pain Posture ROM Soft Tissue Mobility Tone Goals Six Impairment Activity Tolerance Short Term Goal (STG) Pt to report ability to drive for 60 minutes with no increased pain STG Duration 10/24/18 - improving - 20 minutes Detention Goal (LTG) Pt to report ability to walk down to his barn from the house (100 yards) with no increased pain LTG Duration 11/24/18 - Improving - walk down and long term back Five Impairment Pain Short Term Goal (STG) Pt to report pain at worst 7/ 10 STG Duration 10/24/18 Detention Goal (LTG) Pt to report pain at worst 4/ 10 LTG Duration 11/24/18 Four Impairment SLR Detention Goal (LTG) SLR to 50 degrees without increased pain LTG Duration 11/24/18 Three Impairment Joint Mobility Director [employer]ophysical [employer] Goal (LTG) P->A mobility of L1-5 to WNL LTG Duration 11/24/18 - Improving Two Impairment Muscle Tone Detention Goal (LTG) Multifidi, QL, Glute Max, and Piriformis tone to Mild LTG Duration 11/24/18 - Improving, all from severe->mod tone One Impairment Palpation Tenderness Director [employer] Goal (LTG) Low back tenderness to palpation down to 1/5 - Complaint of pain LTG Duration 11/24/18 - Improving - down from 3/4 to 2/4 in all areas Assessment Summary Assessment Pt making improvements in tone and pain levels, however progress has been slow. Additional improvement has been made by pt losing more than 100 pounds since beginning therapy, however he is somewhat disappointed, because he feels like he should have improved more with that much weight-loss. Physical Therapy Plan Frequency and Duration Frequency of Treatment 2x/Week Duration of Treatment 12 weeks Plan of Care Start Date 09/26/18 Plan of Care End Date 12/19/18 Therapeutic Interventions Therapeutic Interventions Aquatic Therapy Home Exercise Program Joint Mobilizations Manual Therapy Neuromuscular Re-education Patient/Caregiver Education Soft Tissue Mobilization Therapeutic Exercises Vestibular Rehabilitation Modalities Cold Pack/Ice Massage Electric Stimulation Hot Packs Ultrasound Next Visit Focus/Plan Next Note Type Treatment Note Next Visit Plan Manual therapy for decreasing spasm, modalities (US, E-stim) . Plan of Care Dates Plan of Care Start Date 09/26/18 Plan of Care End Date 12/19/18 Please Sign and Return: I have reviewed this Plan of Care and certify that the skilled therapy services above are required to meet the patient?s needs. Physician Signature Date Printed Name and Credentials Clinical Instructor Signature Printed Name and Credentials
--- NOTE | 2018-10-03 15:55 | PT.OTN ---
Current Diagnoses Unspecified inflammatory spondylopathy, lumbar region (10/03/18) Physical Therapy Treatment Note PT-OP-A Visit Information Start: 12/21/17 16:51 Freq: Status: Active Protocol: Document 10/03/18 14:30 DCW (Rec: 10/03/18 15:55 DCW [id number]) Out-Patient Physical Therapy Visit Information Visit Information Visit Type Treatment Note Visit Start Time 14:30 Visit Stop Time 15:15 Total Visit Minutes 45 Visit Number 38 Number of TIPPLE OILER Visits 0 Evaluation Information Evaluation Date 12/21/17 PT-OP-B Current Condition Start: 12/21/17 16:51 Freq: Status: Active Protocol: Document 03/27/18 14:30 DCW (Rec: 03/27/18 14:43 DCW [id number]) Current Condition Current Functional Impairments (Reported) Functional Limitations- ADL's Pain with standing for 10+ minutes Pain with sitting 30+ minutes Pain disturbs sleep Unable to drive 30+ minutes Functional Limitations- Mobility/Gait Pt reports he must drive from his house to the barn, which is ~100 yards away. 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 Personal Factors Other Personal Factors That May Effect Morbid Obesity, Neuropathy, Therapy/Recovery Phrenic nerve palsy, cervical spinal fusion PT-OP-C Subjective Start: 12/21/17 16:51 Freq: Status: Active Protocol: Document 10/03/18 14:30 DCW (Rec: 10/03/18 15:55 DCW [id number]) OP-PT Subjective Patient Comments Patient Comments Pt reports he has been sore this week and is having a more difficult time walking, but since it is starting to warm up a little, he is committed to start walking more. PT-OP-F Manual Assessment Start: 12/21/17 16:51 Freq: Status: Active Protocol: Document 09/26/18 14:30 DCW (Rec: 09/26/18 15:13 DCW [id number]) Manual Assessments Joint Mobility Assessment Joint Mobility Assessment P->A hypomobility and 2/5 - Pain with Wincing, tenderness in L1-L5 and bilateral SI joints PT-OP-J Posture/Palpation/Skin Start: 12/21/17 16:51 Freq: Status: Active Protocol: Document 09/26/18 14:30 DCW (Rec: 09/26/18 15:13 DCW [id number]) Palpation Assessment Location Four Palpation Location Gluteus Max Palpation Findings Soft Tissue Tightness Spasm Muscle Guarding Tenderness Palpation Details Moderate Tone and Tenderness 2 /5 - Pain with Wincing Three Palpation Location Quadratus Lumborum Palpation Findings Soft Tissue Tightness Spasm Muscle Guarding Tenderness Palpation Details Moderate Tone and Tenderness 2 /5 - Pain with Wincing Two Palpation Location Piriformis Palpation Findings Soft Tissue Tightness Spasm Muscle Guarding Tenderness Palpation Details Moderate Tone and Tenderness 2 /5 - Pain with Wincing One Palpation Location Multifidi Palpation Findings Soft Tissue Tightness Spasm Muscle Guarding Tenderness Palpation Details Moderate Tone and Tenderness 2 /5 - Pain with Wincing PT-OP-K Range of Motion Start: 12/21/17 16:51 Freq: Status: Active Protocol: Document 09/26/18 14:30 DCW (Rec: 09/26/18 15:13 DCW [id number]) Lumbar Spine Range of Motion Lumbar Spine Active Degrees Testing Position Standing Flexion 15 Extension 0 Comments Rotation and Lateral Flexion not tested secondary to pain PT-OP-L Special Tests Start: 12/21/17 16:51 Freq: Status: Active Protocol: Document 09/26/18 14:30 DCW (Rec: 09/26/18 15:13 DCW [id number]) Special Tests Lumbar Spine Special Tests Standing Flexion Test Results Lumbar spine unable to flex more than 15 degrees Prone Knee Flexion Test Results Quad tightness Straight Leg Raise Test Results Severe Bilateral pain at 35 degrees Prone Press Up Test Results Complaints of Pain PT-OP-Q Treatments Start: 12/21/17 16:51 Freq: Status: Active Protocol: Document 10/03/18 14:30 DCW (Rec: 10/03/18 15:55 DCW [id number]) Manual Therapy Treatment Soft Tissue Mobilization 5 Body Location Proximal Gastroc heads, bilateral Mobilization Type Myofascial Release Strumming Sustained Pressure Trigger Point Release Intensity/Depth Moderate Body Position Prone 4 Body Location Lumbar Paravetebral Musculature Mobilization Type Cross-Friction Instrument Assisted Rolling Strumming Sustained Pressure Trigger Point Release Intensity/Depth Moderate Body Position Prone 3 Body Location Piriformis Mobilization Type Myofascial Release 2 Body Location Quadratus Lumborum Mobilization Type Myofascial Release Strumming Sustained Pressure Trigger Point Release Intensity/Depth Deep Body Position Prone 1 Body Location Multifidi Mobilization Type Myofascial Release Strumming Sustained Pressure Trigger Point Release Intensity/Depth Moderate Body Position Prone Joint Mobilizations 1 Joint Lumbar 1-5 Direction P->A Grade III Body Position Prone Manual Traction Lower Extremity Details Long-axis lower extremity traction Body Position Prone Comments bilateral PT-OP-R Modalities Start: 12/21/17 16:51 Freq: Status: Active Protocol: Document 10/03/18 14:30 DCW (Rec: 10/03/18 15:55 DCW [id number]) Ultrasound Therapy Treatment Right Lower Back Treatment Duration (minutes) 5 Patient Position Prone Coupling Medium Ultrasound Gel Frequency Setting (mHz) 1 Mode Setting Continuous Intensity Setting (w/cm2) 1.2 Left Lower Back Treatment Duration (minutes) 5 Patient Position Prone Coupling Medium Ultrasound Gel Frequency Setting (mHz) 1 Mode Setting Continuous Intensity Setting (w/cm2) 1.2 PT-OP-T Assessment and Plan Start: 12/21/17 16:51 Freq: Status: Active Protocol: Document 10/03/18 14:30 DCW (Rec: 10/03/18 15:55 DCW [id number]) Physical Therapy Assessment Impairments Impairments Activity Tolerance Balance Pain Posture ROM Soft Tissue Mobility Tone Goals Six Impairment Activity Tolerance Short Term Goal (STG) Pt to report ability to drive for 60 minutes with no increased pain STG Duration 10/24/18 - improving - 20 minutes Senior Care Goal (LTG) Pt to report ability to walk down to his barn from the house (100 yards) with no increased pain LTG Duration 11/24/18 - Improving - walk down and [facility] back Five Impairment Pain Short Term Goal (STG) Pt to report pain at worst 7/ 10 STG Duration 10/24/18 Tow Truck Driver Goal (LTG) Pt to report pain at worst 4/ 10 LTG Duration 11/24/18 Four Impairment SLR Senior Care Goal (LTG) SLR to 50 degrees without increased pain LTG Duration 11/24/18 Three Impairment Joint Mobility Tow Truck Driver Goal (LTG) P->A mobility of L1-5 to WNL LTG Duration 11/24/18 - Improving Two Impairment Muscle Tone Senior Care Goal (LTG) Multifidi, QL, Glute Max, and Piriformis tone to Mild LTG Duration 11/24/18 - Improving, all from severe->mod tone One Impairment Palpation Tenderness Tow Truck Driver Goal (LTG) Low back tenderness to palpation down to 1/5 - Complaint of pain LTG Duration 11/24/18 - Improving - down from 3/4 to 2/4 in all areas Assessment Summary Assessment Pt continues to feel frustrated that he is not progressing as quickly as he thinks that he should, notes that he doesn't want to waste anyone's time coming in if he isn't improving. Physical Therapy Plan Frequency and Duration Frequency of Treatment 2x/Week Duration of Treatment 12 weeks Plan of Care Start Date 09/26/18 Plan of Care End Date 12/19/18 Therapeutic Interventions Therapeutic Interventions Aquatic Therapy Home Exercise Program Joint Mobilizations Manual Therapy Neuromuscular Re-education Patient/Caregiver Education Soft Tissue Mobilization Therapeutic Exercises Vestibular Rehabilitation Modalities Cold Pack/Ice Massage Electric Stimulation Hot Packs Ultrasound Next Visit Focus/Plan Next Note Type Treatment Note Next Visit Plan Manual therapy for decreasing spasm, modalities (US, E-stim) .
--- NOTE | 2018-10-08 16:08 | PT.OTN ---
Current Diagnoses Unspecified inflammatory spondylopathy, lumbar region (10/08/18) Physical Therapy Treatment Note PT-OP-A Visit Information Start: 12/21/17 16:51 Freq: Status: Active Protocol: Document 10/08/18 15:15 DCW (Rec: 10/08/18 16:00 DCW [id number]) Out-Patient Physical Therapy Visit Information Visit Information Visit Type Treatment Note Visit Start Time 15:15 Visit Stop Time 16:00 Total Visit Minutes 45 Visit Number 39 Number of GEOSPATIAL PROGRAM MANAGEMENT OFFICER Visits 0 Evaluation Information Evaluation Date 12/21/17 PT-OP-B Current Condition Start: 12/21/17 16:51 Freq: Status: Active Protocol: Document 03/27/18 14:30 DCW (Rec: 03/27/18 14:43 DCW [id number]) Current Condition Current Functional Impairments (Reported) Functional Limitations- ADL's Pain with standing for 10+ minutes Pain with sitting 30+ minutes Pain disturbs sleep Unable to drive 30+ minutes Functional Limitations- Mobility/Gait Pt reports he must drive from his house to the barn, which is ~100 yards away. 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 Personal Factors Other Personal Factors That May Effect Morbid Obesity, Neuropathy, Therapy/Recovery Phrenic nerve palsy, cervical spinal fusion PT-OP-C Subjective Start: 12/21/17 16:51 Freq: Status: Active Protocol: Document 10/08/18 15:15 DCW (Rec: 10/08/18 16:00 DCW [id number]) OP-PT Subjective Patient Comments Patient Comments Pt reports he is a little more sore today, but he doesn't know why. PT-OP-F Manual Assessment Start: 12/21/17 16:51 Freq: Status: Active Protocol: Document 09/26/18 14:30 DCW (Rec: 09/26/18 15:13 DCW [id number]) Manual Assessments Joint Mobility Assessment Joint Mobility Assessment P->A hypomobility and 2/5 - Pain with Wincing, tenderness in L1-L5 and bilateral SI joints PT-OP-J Posture/Palpation/Skin Start: 12/21/17 16:51 Freq: Status: Active Protocol: Document 09/26/18 14:30 DCW (Rec: 09/26/18 15:13 DCW [id number]) Palpation Assessment Location Four Palpation Location Gluteus Max Palpation Findings Soft Tissue Tightness Spasm Muscle Guarding Tenderness Palpation Details Moderate Tone and Tenderness 2 /5 - Pain with Wincing Three Palpation Location Quadratus Lumborum Palpation Findings Soft Tissue Tightness Spasm Muscle Guarding Tenderness Palpation Details Moderate Tone and Tenderness 2 /5 - Pain with Wincing Two Palpation Location Piriformis Palpation Findings Soft Tissue Tightness Spasm Muscle Guarding Tenderness Palpation Details Moderate Tone and Tenderness 2 /5 - Pain with Wincing One Palpation Location Multifidi Palpation Findings Soft Tissue Tightness Spasm Muscle Guarding Tenderness Palpation Details Moderate Tone and Tenderness 2 /5 - Pain with Wincing PT-OP-K Range of Motion Start: 12/21/17 16:51 Freq: Status: Active Protocol: Document 09/26/18 14:30 DCW (Rec: 09/26/18 15:13 DCW [id number]) Lumbar Spine Range of Motion Lumbar Spine Active Degrees Testing Position Standing Flexion 15 Extension 0 Comments Rotation and Lateral Flexion not tested secondary to pain PT-OP-L Special Tests Start: 12/21/17 16:51 Freq: Status: Active Protocol: Document 09/26/18 14:30 DCW (Rec: 09/26/18 15:13 DCW [id number]) Special Tests Lumbar Spine Special Tests Standing Flexion Test Results Lumbar spine unable to flex more than 15 degrees Prone Knee Flexion Test Results Quad tightness Straight Leg Raise Test Results Severe Bilateral pain at 35 degrees Prone Press Up Test Results Complaints of Pain PT-OP-Q Treatments Start: 12/21/17 16:51 Freq: Status: Active Protocol: Document 10/08/18 15:15 DCW (Rec: 10/08/18 16:00 DCW [id number]) Manual Therapy Treatment Soft Tissue Mobilization 5 Body Location Proximal Gastroc heads, bilateral Mobilization Type Myofascial Release Strumming Sustained Pressure Trigger Point Release Intensity/Depth Moderate Body Position Prone 4 Body Location Lumbar Paravetebral Musculature Mobilization Type Cross-Friction Instrument Assisted Rolling Strumming Sustained Pressure Trigger Point Release Intensity/Depth Moderate Body Position Prone 3 Body Location Piriformis Mobilization Type Myofascial Release 2 Body Location Quadratus Lumborum Mobilization Type Myofascial Release Strumming Sustained Pressure Trigger Point Release Intensity/Depth Deep Body Position Prone 1 Body Location Multifidi Mobilization Type Myofascial Release Strumming Sustained Pressure Trigger Point Release Intensity/Depth Moderate Body Position Prone Joint Mobilizations 1 Joint Lumbar 1-5 Direction P->A Grade III Body Position Prone Manual Traction Lower Extremity Details Long-axis lower extremity traction Body Position Prone Comments bilateral PT-OP-R Modalities Start: 12/21/17 16:51 Freq: Status: Active Protocol: Document 10/08/18 15:15 DCW (Rec: 10/08/18 16:00 DCW [id number]) Ultrasound Therapy Treatment Right Lower Back Treatment Duration (minutes) 5 Patient Position Prone Coupling Medium Ultrasound Gel Frequency Setting (mHz) 1 Mode Setting Continuous Intensity Setting (w/cm2) 1.2 Left Lower Back Treatment Duration (minutes) 5 Patient Position Prone Coupling Medium Ultrasound Gel Frequency Setting (mHz) 1 Mode Setting Continuous Intensity Setting (w/cm2) 1.2 PT-OP-T Assessment and Plan Start: 12/21/17 16:51 Freq: Status: Active Protocol: Document 10/08/18 15:15 DCW (Rec: 10/08/18 16:00 DCW [id number]) Physical Therapy Assessment Impairments Impairments Activity Tolerance Balance Pain Posture ROM Soft Tissue Mobility Tone Goals Six Impairment Activity Tolerance Short Term Goal (STG) Pt to report ability to drive for 60 minutes with no increased pain STG Duration 10/24/18 - improving - 20 minutes [facility] Goal (LTG) Pt to report ability to walk down to his barn from the house (100 yards) with no increased pain LTG Duration 11/24/18 - Improving - walk down and [facility] back Five Impairment Pain Short Term Goal (STG) Pt to report pain at worst 7/ 10 STG Duration 10/24/18 Collision Estimator Goal (LTG) Pt to report pain at worst 4/ 10 LTG Duration 11/24/18 Four Impairment SLR Collision Estimator Goal (LTG) SLR to 50 degrees without increased pain LTG Duration 11/24/18 Three Impairment Joint Mobility Collision Estimator Goal (LTG) P->A mobility of L1-5 to WNL LTG Duration 11/24/18 - Improving Two Impairment Muscle Tone Collision Estimator Goal (LTG) Multifidi, QL, Glute Max, and Piriformis tone to Mild LTG Duration 11/24/18 - Improving, all from severe->mod tone One Impairment Palpation Tenderness [facility] Goal (LTG) Low back tenderness to palpation down to 1/5 - Complaint of pain LTG Duration 11/24/18 - Improving - down from 3/4 to 2/4 in all areas Assessment Summary Assessment Pt tolerated treatment well, felt much better following his session. Physical Therapy Plan Frequency and Duration Frequency of Treatment 2x/Week Duration of Treatment 12 weeks Plan of Care Start Date 09/26/18 Plan of Care End Date 12/19/18 Therapeutic Interventions Therapeutic Interventions Aquatic Therapy Home Exercise Program Joint Mobilizations Manual Therapy Neuromuscular Re-education Patient/Caregiver Education Soft Tissue Mobilization Therapeutic Exercises Vestibular Rehabilitation Modalities Cold Pack/Ice Massage Electric Stimulation Hot Packs Ultrasound Next Visit Focus/Plan Next Note Type Treatment Note Next Visit Plan Manual therapy for decreasing spasm, modalities (US, E-stim) .
--- NOTE | 2018-10-15 17:43 | PT.OTN ---
Current Diagnoses Unspecified inflammatory spondylopathy, lumbar region (10/15/18) Physical Therapy Treatment Note PT-OP-A Visit Information Start: 12/21/17 16:51 Freq: Status: Active Protocol: Document 10/15/18 15:15 DCW (Rec: 10/15/18 17:43 DCW [id number]) Out-Patient Physical Therapy Visit Information Visit Information Visit Type Treatment Note Visit Start Time 15:15 Visit Stop Time 16:00 Total Visit Minutes 45 Visit Number 40 Number of BATCH ROLLER OPERATOR Visits 0 Evaluation Information Evaluation Date 12/21/17 PT-OP-B Current Condition Start: 12/21/17 16:51 Freq: Status: Active Protocol: Document 03/27/18 14:30 DCW (Rec: 03/27/18 14:43 DCW [id number]) Current Condition Current Functional Impairments (Reported) Functional Limitations- ADL's Pain with standing for 10+ minutes Pain with sitting 30+ minutes Pain disturbs sleep Unable to drive 30+ minutes Functional Limitations- Mobility/Gait Pt reports he must drive from his house to the barn, which is ~100 yards away. 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 Personal Factors Other Personal Factors That May Effect Morbid Obesity, Neuropathy, Therapy/Recovery Phrenic nerve palsy, cervical spinal fusion PT-OP-C Subjective Start: 12/21/17 16:51 Freq: Status: Active Protocol: Document 10/15/18 15:15 DCW (Rec: 10/15/18 17:43 DCW [id number]) OP-PT Subjective Patient Comments Patient Comments Pt reports he has been getting random spells of dizziness today, along with increasing headaches, which he attributes to a recent increase is stress. PT-OP-F Manual Assessment Start: 12/21/17 16:51 Freq: Status: Active Protocol: Document 09/26/18 14:30 DCW (Rec: 09/26/18 15:13 DCW [id number]) Manual Assessments Joint Mobility Assessment Joint Mobility Assessment P->A hypomobility and 2/5 - Pain with Wincing, tenderness in L1-L5 and bilateral SI joints PT-OP-J Posture/Palpation/Skin Start: 12/21/17 16:51 Freq: Status: Active Protocol: Document 09/26/18 14:30 DCW (Rec: 09/26/18 15:13 DCW [id number]) Palpation Assessment Location Four Palpation Location Gluteus Max Palpation Findings Soft Tissue Tightness Spasm Muscle Guarding Tenderness Palpation Details Moderate Tone and Tenderness 2 /5 - Pain with Wincing Three Palpation Location Quadratus Lumborum Palpation Findings Soft Tissue Tightness Spasm Muscle Guarding Tenderness Palpation Details Moderate Tone and Tenderness 2 /5 - Pain with Wincing Two Palpation Location Piriformis Palpation Findings Soft Tissue Tightness Spasm Muscle Guarding Tenderness Palpation Details Moderate Tone and Tenderness 2 /5 - Pain with Wincing One Palpation Location Multifidi Palpation Findings Soft Tissue Tightness Spasm Muscle Guarding Tenderness Palpation Details Moderate Tone and Tenderness 2 /5 - Pain with Wincing PT-OP-K Range of Motion Start: 12/21/17 16:51 Freq: Status: Active Protocol: Document 09/26/18 14:30 DCW (Rec: 09/26/18 15:13 DCW [id number]) Lumbar Spine Range of Motion Lumbar Spine Active Degrees Testing Position Standing Flexion 15 Extension 0 Comments Rotation and Lateral Flexion not tested secondary to pain PT-OP-L Special Tests Start: 12/21/17 16:51 Freq: Status: Active Protocol: Document 09/26/18 14:30 DCW (Rec: 09/26/18 15:13 DCW [id number]) Special Tests Lumbar Spine Special Tests Standing Flexion Test Results Lumbar spine unable to flex more than 15 degrees Prone Knee Flexion Test Results Quad tightness Straight Leg Raise Test Results Severe Bilateral pain at 35 degrees Prone Press Up Test Results Complaints of Pain PT-OP-Q Treatments Start: 12/21/17 16:51 Freq: Status: Active Protocol: Document 10/15/18 15:15 DCW (Rec: 10/15/18 17:43 DCW [id number]) Manual Therapy Treatment Soft Tissue Mobilization 5 Body Location Proximal Gastroc heads, bilateral Mobilization Type Myofascial Release Strumming Sustained Pressure Trigger Point Release Intensity/Depth Moderate Body Position Prone 4 Body Location Lumbar Paravetebral Musculature Mobilization Type Cross-Friction Instrument Assisted Rolling Strumming Sustained Pressure Trigger Point Release Intensity/Depth Moderate Body Position Prone 3 Body Location Piriformis Mobilization Type Myofascial Release 2 Body Location Quadratus Lumborum Mobilization Type Myofascial Release Strumming Sustained Pressure Trigger Point Release Intensity/Depth Deep Body Position Prone 1 Body Location Multifidi Mobilization Type Myofascial Release Strumming Sustained Pressure Trigger Point Release Intensity/Depth Moderate Body Position Prone Joint Mobilizations 1 Joint Lumbar 1-5 Direction P->A Grade III Body Position Prone Manual Traction Lower Extremity Details Long-axis lower extremity traction Body Position Prone Comments bilateral PT-OP-R Modalities Start: 12/21/17 16:51 Freq: Status: Active Protocol: Document 10/15/18 15:15 DCW (Rec: 10/15/18 17:43 DCW [id number]) Ultrasound Therapy Treatment Right Lower Back Treatment Duration (minutes) 5 Patient Position Prone Coupling Medium Ultrasound Gel Frequency Setting (mHz) 1 Mode Setting Continuous Intensity Setting (w/cm2) 1.2 Left Lower Back Treatment Duration (minutes) 5 Patient Position Prone Coupling Medium Ultrasound Gel Frequency Setting (mHz) 1 Mode Setting Continuous Intensity Setting (w/cm2) 1.2 PT-OP-T Assessment and Plan Start: 12/21/17 16:51 Freq: Status: Active Protocol: Document 10/15/18 15:15 DCW (Rec: 10/15/18 17:43 DCW [id number]) Physical Therapy Assessment Impairments Impairments Activity Tolerance Balance Pain Posture ROM Soft Tissue Mobility Tone Goals Six Impairment Activity Tolerance Short Term Goal (STG) Pt to report ability to drive for 60 minutes with no increased pain STG Duration 10/24/18 - improving - 20 minutes Dice Person Goal (LTG) Pt to report ability to walk down to his barn from the house (100 yards) with no increased pain LTG Duration 11/24/18 - Improving - walk down and long term back Five Impairment Pain Short Term Goal (STG) Pt to report pain at worst 7/ 10 STG Duration 10/24/18 Jail Goal (LTG) Pt to report pain at worst 4/ 10 LTG Duration 11/24/18 Four Impairment SLR Jail Goal (LTG) SLR to 50 degrees without increased pain LTG Duration 11/24/18 Three Impairment Joint Mobility Dice Person Goal (LTG) P->A mobility of L1-5 to WNL LTG Duration 11/24/18 - Improving Two Impairment Muscle Tone Dice Person Goal (LTG) Multifidi, QL, Glute Max, and Piriformis tone to Mild LTG Duration 11/24/18 - Improving, all from severe->mod tone One Impairment Palpation Tenderness Dice Person Goal (LTG) Low back tenderness to palpation down to 1/5 - Complaint of pain LTG Duration 11/24/18 - Improving - down from 3/4 to 2/4 in all areas Assessment Summary Assessment Pt feeling less pain through his head and a decrease in stress at the end of his session. Physical Therapy Plan Frequency and Duration Frequency of Treatment 2x/Week Duration of Treatment 12 weeks Plan of Care Start Date 09/26/18 Plan of Care End Date 12/19/18 Therapeutic Interventions Therapeutic Interventions Aquatic Therapy Home Exercise Program Joint Mobilizations Manual Therapy Neuromuscular Re-education Patient/Caregiver Education Soft Tissue Mobilization Therapeutic Exercises Vestibular Rehabilitation Modalities Cold Pack/Ice Massage Electric Stimulation Hot Packs Ultrasound Next Visit Focus/Plan Next Note Type Treatment Note Next Visit Plan Manual therapy for decreasing spasm, modalities (US, E-stim) .
--- NOTE | 2018-10-21 12:10 | PT.OTN ---
Current Diagnoses Unspecified inflammatory spondylopathy, lumbar region (10/21/18) Physical Therapy Treatment Note PT-OP-A Visit Information Start: 12/21/17 16:51 Freq: Status: Active Protocol: Document 10/21/18 11:15 DCW (Rec: 10/21/18 12:07 DCW [id number]) Out-Patient Physical Therapy Visit Information Visit Information Visit Type Treatment Note Visit Start Time 11:15 Visit Stop Time 12:00 Total Visit Minutes 45 Visit Number 41 Number of FOOD SERVICE ORDER CLERK Visits 0 Evaluation Information Evaluation Date 12/21/17 PT-OP-B Current Condition Start: 12/21/17 16:51 Freq: Status: Active Protocol: Document 03/27/18 14:30 DCW (Rec: 03/27/18 14:43 DCW [id number]) Current Condition Current Functional Impairments (Reported) Functional Limitations- ADL's Pain with standing for 10+ minutes Pain with sitting 30+ minutes Pain disturbs sleep Unable to drive 30+ minutes Functional Limitations- Mobility/Gait Pt reports he must drive from his house to the barn, which is ~100 yards away. 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 Personal Factors Other Personal Factors That May Effect Morbid Obesity, Neuropathy, Therapy/Recovery Phrenic nerve palsy, cervical spinal fusion PT-OP-C Subjective Start: 12/21/17 16:51 Freq: Status: Active Protocol: Document 10/21/18 11:15 DCW (Rec: 10/21/18 12:07 DCW [id number]) OP-PT Subjective Patient Comments Patient Comments Pt notes that he actually felt pretty darn good following his last visit. PT-OP-F Manual Assessment Start: 12/21/17 16:51 Freq: Status: Active Protocol: Document 09/26/18 14:30 DCW (Rec: 09/26/18 15:13 DCW [id number]) Manual Assessments Joint Mobility Assessment Joint Mobility Assessment P->A hypomobility and 2/5 - Pain with Wincing, tenderness in L1-L5 and bilateral SI joints PT-OP-J Posture/Palpation/Skin Start: 12/21/17 16:51 Freq: Status: Active Protocol: Document 09/26/18 14:30 DCW (Rec: 09/26/18 15:13 DCW [id number]) Palpation Assessment Location Four Palpation Location Gluteus Max Palpation Findings Soft Tissue Tightness Spasm Muscle Guarding Tenderness Palpation Details Moderate Tone and Tenderness 2 /5 - Pain with Wincing Three Palpation Location Quadratus Lumborum Palpation Findings Soft Tissue Tightness Spasm Muscle Guarding Tenderness Palpation Details Moderate Tone and Tenderness 2 /5 - Pain with Wincing Two Palpation Location Piriformis Palpation Findings Soft Tissue Tightness Spasm Muscle Guarding Tenderness Palpation Details Moderate Tone and Tenderness 2 /5 - Pain with Wincing One Palpation Location Multifidi Palpation Findings Soft Tissue Tightness Spasm Muscle Guarding Tenderness Palpation Details Moderate Tone and Tenderness 2 /5 - Pain with Wincing PT-OP-K Range of Motion Start: 12/21/17 16:51 Freq: Status: Active Protocol: Document 09/26/18 14:30 DCW (Rec: 09/26/18 15:13 DCW [id number]) Lumbar Spine Range of Motion Lumbar Spine Active Degrees Testing Position Standing Flexion 15 Extension 0 Comments Rotation and Lateral Flexion not tested secondary to pain PT-OP-L Special Tests Start: 12/21/17 16:51 Freq: Status: Active Protocol: Document 09/26/18 14:30 DCW (Rec: 09/26/18 15:13 DCW [id number]) Special Tests Lumbar Spine Special Tests Standing Flexion Test Results Lumbar spine unable to flex more than 15 degrees Prone Knee Flexion Test Results Quad tightness Straight Leg Raise Test Results Severe Bilateral pain at 35 degrees Prone Press Up Test Results Complaints of Pain PT-OP-Q Treatments Start: 12/21/17 16:51 Freq: Status: Active Protocol: Document 10/21/18 11:15 DCW (Rec: 10/21/18 12:07 DCW [id number]) Manual Therapy Treatment Soft Tissue Mobilization 5 Body Location Proximal Gastroc heads, bilateral Mobilization Type Myofascial Release Strumming Sustained Pressure Trigger Point Release Intensity/Depth Moderate Body Position Prone 4 Body Location Lumbar Paravetebral Musculature Mobilization Type Cross-Friction Instrument Assisted Rolling Strumming Sustained Pressure Trigger Point Release Intensity/Depth Moderate Body Position Prone 3 Body Location Piriformis Mobilization Type Myofascial Release 2 Body Location Quadratus Lumborum Mobilization Type Myofascial Release Strumming Sustained Pressure Trigger Point Release Intensity/Depth Deep Body Position Prone 1 Body Location Multifidi Mobilization Type Myofascial Release Strumming Sustained Pressure Trigger Point Release Intensity/Depth Moderate Body Position Prone Joint Mobilizations 1 Joint Lumbar 1-5 Direction P->A Grade III Body Position Prone Manual Traction Lower Extremity Details Long-axis lower extremity traction Body Position Prone Comments bilateral PT-OP-R Modalities Start: 12/21/17 16:51 Freq: Status: Active Protocol: Document 10/21/18 11:15 DCW (Rec: 10/21/18 12:07 DCW [id number]) Ultrasound Therapy Treatment Right Lower Back Treatment Duration (minutes) 5 Patient Position Prone Coupling Medium Ultrasound Gel Frequency Setting (mHz) 1 Mode Setting Continuous Intensity Setting (w/cm2) 1.2 Left Lower Back Treatment Duration (minutes) 5 Patient Position Prone Coupling Medium Ultrasound Gel Frequency Setting (mHz) 1 Mode Setting Continuous Intensity Setting (w/cm2) 1.2 PT-OP-T Assessment and Plan Start: 12/21/17 16:51 Freq: Status: Active Protocol: Document 10/21/18 11:15 DCW (Rec: 10/21/18 12:07 DCW [id number]) Physical Therapy Assessment Impairments Impairments Activity Tolerance Balance Pain Posture ROM Soft Tissue Mobility Tone Goals Six Impairment Activity Tolerance Short Term Goal (STG) Pt to report ability to drive for 60 minutes with no increased pain STG Duration 10/24/18 - improving - 20 minutes Skilled Nursing Goal (LTG) Pt to report ability to walk down to his barn from the house (100 yards) with no increased pain LTG Duration 11/24/18 - Improving - walk down and detention back Five Impairment Pain Short Term Goal (STG) Pt to report pain at worst 7/ 10 STG Duration 10/24/18 Director Of Sustainability Goal (LTG) Pt to report pain at worst 4/ 10 LTG Duration 11/24/18 Four Impairment SLR Director Of Sustainability Goal (LTG) SLR to 50 degrees without increased pain LTG Duration 11/24/18 Three Impairment Joint Mobility Skilled Nursing Goal (LTG) P->A mobility of L1-5 to WNL LTG Duration 11/24/18 - Improving Two Impairment Muscle Tone Director Of Sustainability Goal (LTG) Multifidi, QL, Glute Max, and Piriformis tone to Mild LTG Duration 11/24/18 - Improving, all from severe->mod tone One Impairment Palpation Tenderness Director Of Sustainability Goal (LTG) Low back tenderness to palpation down to 1/5 - Complaint of pain LTG Duration 11/24/18 - Improving - down from 3/4 to 2/4 in all areas Assessment Summary Assessment Pt exhibiting less tone throughout his paraspinals and calf. Physical Therapy Plan Frequency and Duration Frequency of Treatment 2x/Week Duration of Treatment 12 weeks Plan of Care Start Date 09/26/18 Plan of Care End Date 12/19/18 Therapeutic Interventions Therapeutic Interventions Aquatic Therapy Home Exercise Program Joint Mobilizations Manual Therapy Neuromuscular Re-education Patient/Caregiver Education Soft Tissue Mobilization Therapeutic Exercises Vestibular Rehabilitation Modalities Cold Pack/Ice Massage Electric Stimulation Hot Packs Ultrasound Next Visit Focus/Plan Next Note Type Treatment Note Next Visit Plan Manual therapy for decreasing spasm, modalities (US, E-stim) .
--- NOTE | 2018-10-29 16:37 | PT.OTN ---
Current Diagnoses Unspecified inflammatory spondylopathy, lumbar region (10/29/18) Physical Therapy Treatment Note PT-OP-A Visit Information Start: 12/21/17 16:51 Freq: Status: Active Protocol: Document 10/29/18 15:15 DCW (Rec: 10/29/18 16:37 DCW [id number]) Out-Patient Physical Therapy Visit Information Visit Information Visit Type Treatment Note Visit Start Time 15:15 Visit Stop Time 16:00 Total Visit Minutes 45 Visit Number 42 Number of MANAGER MULTIM[employer] Visits 0 Evaluation Information Evaluation Date 12/21/17 PT-OP-B Current Condition Start: 12/21/17 16:51 Freq: Status: Active Protocol: Document 03/27/18 14:30 DCW (Rec: 03/27/18 14:43 DCW [id number]) Current Condition Current Functional Impairments (Reported) Functional Limitations- ADL's Pain with standing for 10+ minutes Pain with sitting 30+ minutes Pain disturbs sleep Unable to drive 30+ minutes Functional Limitations- Mobility/Gait Pt reports he must drive from his house to the barn, which is ~100 yards away. 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 Personal Factors Other Personal Factors That May Effect Morbid Obesity, Neuropathy, Therapy/Recovery Phrenic nerve palsy, cervical spinal fusion PT-OP-C Subjective Start: 12/21/17 16:51 Freq: Status: Active Protocol: Document 10/29/18 15:15 DCW (Rec: 10/29/18 16:37 DCW [id number]) OP-PT Subjective Patient Comments Patient Comments Pt reports he was doing better , but slipped today and although he was able to stay upright, he felt like he may have pulled something trying to save himself. PT-OP-F Manual Assessment Start: 12/21/17 16:51 Freq: Status: Active Protocol: Document 09/26/18 14:30 DCW (Rec: 09/26/18 15:13 DCW [id number]) Manual Assessments Joint Mobility Assessment Joint Mobility Assessment P->A hypomobility and 2/5 - Pain with Wincing, tenderness in L1-L5 and bilateral SI joints PT-OP-J Posture/Palpation/Skin Start: 12/21/17 16:51 Freq: Status: Active Protocol: Document 09/26/18 14:30 DCW (Rec: 09/26/18 15:13 DCW [id number]) Palpation Assessment Location Four Palpation Location Gluteus Max Palpation Findings Soft Tissue Tightness Spasm Muscle Guarding Tenderness Palpation Details Moderate Tone and Tenderness 2 /5 - Pain with Wincing Three Palpation Location Quadratus Lumborum Palpation Findings Soft Tissue Tightness Spasm Muscle Guarding Tenderness Palpation Details Moderate Tone and Tenderness 2 /5 - Pain with Wincing Two Palpation Location Piriformis Palpation Findings Soft Tissue Tightness Spasm Muscle Guarding Tenderness Palpation Details Moderate Tone and Tenderness 2 /5 - Pain with Wincing One Palpation Location Multifidi Palpation Findings Soft Tissue Tightness Spasm Muscle Guarding Tenderness Palpation Details Moderate Tone and Tenderness 2 /5 - Pain with Wincing PT-OP-K Range of Motion Start: 12/21/17 16:51 Freq: Status: Active Protocol: Document 09/26/18 14:30 DCW (Rec: 09/26/18 15:13 DCW [id number]) Lumbar Spine Range of Motion Lumbar Spine Active Degrees Testing Position Standing Flexion 15 Extension 0 Comments Rotation and Lateral Flexion not tested secondary to pain PT-OP-L Special Tests Start: 12/21/17 16:51 Freq: Status: Active Protocol: Document 09/26/18 14:30 DCW (Rec: 09/26/18 15:13 DCW [id number]) Special Tests Lumbar Spine Special Tests Standing Flexion Test Results Lumbar spine unable to flex more than 15 degrees Prone Knee Flexion Test Results Quad tightness Straight Leg Raise Test Results Severe Bilateral pain at 35 degrees Prone Press Up Test Results Complaints of Pain PT-OP-Q Treatments Start: 12/21/17 16:51 Freq: Status: Active Protocol: Document 10/29/18 15:15 DCW (Rec: 10/29/18 16:37 DCW [id number]) Therapeutic Exercises Sidelying Exercises Reverse Clamshells Sidelying Exercise Name Reverse Clamshells Side right Clamshells Sidelying Exercise Name Clamshells Side right Manual Therapy Treatment Soft Tissue Mobilization 5 Body Location Proximal Gastroc heads, bilateral Mobilization Type Myofascial Release Strumming Sustained Pressure Trigger Point Release Intensity/Depth Moderate Body Position Prone 4 Body Location Lumbar Paravetebral Musculature Mobilization Type Cross-Friction Instrument Assisted Rolling Strumming Sustained Pressure Trigger Point Release Intensity/Depth Moderate Body Position Prone 3 Body Location Piriformis Mobilization Type Myofascial Release 2 Body Location Quadratus Lumborum Mobilization Type Myofascial Release Strumming Sustained Pressure Trigger Point Release Intensity/Depth Deep Body Position Prone 1 Body Location Multifidi Mobilization Type Myofascial Release Strumming Sustained Pressure Trigger Point Release Intensity/Depth Moderate Body Position Prone Joint Mobilizations 1 Joint Lumbar 1-5 Direction P->A Grade III Body Position Prone Manual Traction Lower Extremity Details Long-axis lower extremity traction Body Position Prone Comments bilateral PT-OP-R Modalities Start: 12/21/17 16:51 Freq: Status: Active Protocol: Document 10/29/18 15:15 DCW (Rec: 10/29/18 16:37 DCW [id number]) Ultrasound Therapy Treatment Right Lower Back Treatment Duration (minutes) 5 Patient Position Prone Coupling Medium Ultrasound Gel Frequency Setting (mHz) 1 Mode Setting Continuous Intensity Setting (w/cm2) 1.2 Left Lower Back Treatment Duration (minutes) 5 Patient Position Prone Coupling Medium Ultrasound Gel Frequency Setting (mHz) 1 Mode Setting Continuous Intensity Setting (w/cm2) 1.2 PT-OP-T Assessment and Plan Start: 12/21/17 16:51 Freq: Status: Active Protocol: Document 10/29/18 15:15 DCW (Rec: 10/29/18 16:37 DCW [id number]) Physical Therapy Assessment Impairments Impairments Activity Tolerance Balance Pain Posture ROM Soft Tissue Mobility Tone Goals Six Impairment Activity Tolerance Short Term Goal (STG) Pt to report ability to drive for 60 minutes with no increased pain STG Duration 10/24/18 - improving - 20 minutes Trailer Steerer Goal (LTG) Pt to report ability to walk down to his barn from the house (100 yards) with no increased pain LTG Duration 11/24/18 - Improving - walk down and longterm back Five Impairment Pain Short Term Goal (STG) Pt to report pain at worst 7/ 10 STG Duration 10/24/18 [facility] Goal (LTG) Pt to report pain at worst 4/ 10 LTG Duration 11/24/18 Four Impairment SLR Trailer Steerer Goal (LTG) SLR to 50 degrees without increased pain LTG Duration 11/24/18 Three Impairment Joint Mobility Trailer Steerer Goal (LTG) P->A mobility of L1-5 to WNL LTG Duration 11/24/18 - Improving Two Impairment Muscle Tone [facility] Goal (LTG) Multifidi, QL, Glute Max, and Piriformis tone to Mild LTG Duration 11/24/18/ - Improving, all from severe->mod tone One Impairment Palpation Tenderness [facility] Goal (LTG) Low back tenderness to palpation down to 1/5 - Complaint of pain LTG Duration 11/24/18 - Improving - down from 3/4 to 2/4 in all areas Assessment Summary Assessment Pt manual therapy went very well today, noticeable improvement with his tone in his calves and lumbar paraspinals. Physical Therapy Plan Frequency and Duration Frequency of Treatment 2x/Week Duration of Treatment 12 weeks Plan of Care Start Date 09/26/18 Plan of Care End Date 12/19/18 Therapeutic Interventions Therapeutic Interventions Aquatic Therapy Home Exercise Program Joint Mobilizations Manual Therapy Neuromuscular Re-education Patient/Caregiver Education Soft Tissue Mobilization Therapeutic Exercises Vestibular Rehabilitation Modalities Cold Pack/Ice Massage Electric Stimulation Hot Packs Ultrasound Next Visit Focus/Plan Next Note Type Treatment Note Next Visit Plan Manual therapy for decreasing spasm, modalities (US, E-stim) .
--- NOTE | 2018-11-12 12:00 | PT.OTN ---
Current Diagnoses Unspecified inflammatory spondylopathy, lumbar region (11/12/18) Physical Therapy Treatment Note PT-OP-A Visit Information Start: 12/21/17 16:51 Freq: Status: Active Protocol: Document 11/12/18 09:45 DCW (Rec: 11/12/18 12:00 DCW [id number]) Out-Patient Physical Therapy Visit Information Visit Information Visit Type Treatment Note Visit Start Time 09:45 Visit Stop Time 10:30 Total Visit Minutes 45 Visit Number 43 Number of DEGREASING WHEEL OPERATOR Visits 0 Evaluation Information Evaluation Date 12/21/17 PT-OP-B Current Condition Start: 12/21/17 16:51 Freq: Status: Active Protocol: Document 03/27/18 14:30 DCW (Rec: 03/27/18 14:43 DCW [id number]) Current Condition Current Functional Impairments (Reported) Functional Limitations- ADL's Pain with standing for 10+ minutes Pain with sitting 30+ minutes Pain disturbs sleep Unable to drive 30+ minutes Functional Limitations- Mobility/Gait Pt reports he must drive from his house to the barn, which is ~100 yards away. 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 Personal Factors Other Personal Factors That May Effect Morbid Obesity, Neuropathy, Therapy/Recovery Phrenic nerve palsy, cervical spinal fusion PT-OP-C Subjective Start: 12/21/17 16:51 Freq: Status: Active Protocol: Document 11/12/18 09:45 DCW (Rec: 11/12/18 12:00 DCW [id number]) OP-PT Subjective Patient Comments Patient Comments Pt reports he spent some time working on his car, and was therefore on the ground, and was very sore afterward, especially Sunday and Sunday , when he had to use a Fentynol patch PT-OP-F Manual Assessment Start: 12/21/17 16:51 Freq: Status: Active Protocol: Document 09/26/18 14:30 DCW (Rec: 09/26/18 15:13 DCW [id number]) Manual Assessments Joint Mobility Assessment Joint Mobility Assessment P->A hypomobility and 2/5 - Pain with Wincing, tenderness in L1-L5 and bilateral SI joints PT-OP-J Posture/Palpation/Skin Start: 12/21/17 16:51 Freq: Status: Active Protocol: Document 09/26/18 14:30 DCW (Rec: 09/26/18 15:13 DCW [id number]) Palpation Assessment Location Four Palpation Location Gluteus Max Palpation Findings Soft Tissue Tightness Spasm Muscle Guarding Tenderness Palpation Details Moderate Tone and Tenderness 2 /5 - Pain with Wincing Three Palpation Location Quadratus Lumborum Palpation Findings Soft Tissue Tightness Spasm Muscle Guarding Tenderness Palpation Details Moderate Tone and Tenderness 2 /5 - Pain with Wincing Two Palpation Location Piriformis Palpation Findings Soft Tissue Tightness Spasm Muscle Guarding Tenderness Palpation Details Moderate Tone and Tenderness 2 /5 - Pain with Wincing One Palpation Location Multifidi Palpation Findings Soft Tissue Tightness Spasm Muscle Guarding Tenderness Palpation Details Moderate Tone and Tenderness 2 /5 - Pain with Wincing PT-OP-K Range of Motion Start: 12/21/17 16:51 Freq: Status: Active Protocol: Document 09/26/18 14:30 DCW (Rec: 09/26/18 15:13 DCW [id number]) Lumbar Spine Range of Motion Lumbar Spine Active Degrees Testing Position Standing Flexion 15 Extension 0 Comments Rotation and Lateral Flexion not tested secondary to pain PT-OP-L Special Tests Start: 12/21/17 16:51 Freq: Status: Active Protocol: Document 09/26/18 14:30 DCW (Rec: 09/26/18 15:13 DCW [id number]) Special Tests Lumbar Spine Special Tests Standing Flexion Test Results Lumbar spine unable to flex more than 15 degrees Prone Knee Flexion Test Results Quad tightness Straight Leg Raise Test Results Severe Bilateral pain at 35 degrees Prone Press Up Test Results Complaints of Pain PT-OP-Q Treatments Start: 12/21/17 16:51 Freq: Status: Active Protocol: Document 11/12/18 09:45 DCW (Rec: 11/12/18 12:00 DCW [id number]) Manual Therapy Treatment Soft Tissue Mobilization 5 Body Location Proximal Gastroc heads, bilateral Mobilization Type Myofascial Release Strumming Sustained Pressure Trigger Point Release Intensity/Depth Moderate Body Position Prone 4 Body Location Lumbar Paravetebral Musculature Mobilization Type Cross-Friction Instrument Assisted Rolling Strumming Sustained Pressure Trigger Point Release Intensity/Depth Moderate Body Position Prone 3 Body Location Piriformis Mobilization Type Myofascial Release 2 Body Location Quadratus Lumborum Mobilization Type Myofascial Release Strumming Sustained Pressure Trigger Point Release Intensity/Depth Deep Body Position Prone 1 Body Location Multifidi Mobilization Type Myofascial Release Strumming Sustained Pressure Trigger Point Release Intensity/Depth Moderate Body Position Prone Joint Mobilizations 1 Joint Lumbar 1-5 Direction P->A Grade III Body Position Prone Manual Traction Lower Extremity Details Long-axis lower extremity traction Body Position Prone Comments bilateral PT-OP-R Modalities Start: 12/21/17 16:51 Freq: Status: Active Protocol: Document 11/12/18 09:45 DCW (Rec: 11/12/18 12:00 DCW [id number]) Ultrasound Therapy Treatment Right Lower Back Treatment Duration (minutes) 5 Patient Position Prone Coupling Medium Ultrasound Gel Frequency Setting (mHz) 1 Mode Setting Continuous Intensity Setting (w/cm2) 1.2 Left Lower Back Treatment Duration (minutes) 5 Patient Position Prone Coupling Medium Ultrasound Gel Frequency Setting (mHz) 1 Mode Setting Continuous Intensity Setting (w/cm2) 1.2 PT-OP-T Assessment and Plan Start: 12/21/17 16:51 Freq: Status: Active Protocol: Document 11/12/18 09:45 DCW (Rec: 11/12/18 12:00 DCW [id number]) Physical Therapy Assessment Impairments Impairments Activity Tolerance Balance Pain Posture ROM Soft Tissue Mobility Tone Goals Six Impairment Activity Tolerance Short Term Goal (STG) Pt to report ability to drive for 60 minutes with no increased pain STG Duration 10/24/18 - improving - 20 minutes [facility] Goal (LTG) Pt to report ability to walk down to his barn from the house (100 yards) with no increased pain LTG Duration 11/24/18 - Improving - walk down and long-term back Five Impairment Pain Short Term Goal (STG) Pt to report pain at worst 7/ 10 STG Duration 10/24/18 [facility] Goal (LTG) Pt to report pain at worst 4/ 10 LTG Duration 11/24/18 Four Impairment SLR Director Trust Goal (LTG) SLR to 50 degrees without increased pain LTG Duration 11/24/18 Three Impairment Joint Mobility [facility] Goal (LTG) P->A mobility of L1-5 to WNL LTG Duration 11/24/18 - Improving Two Impairment Muscle Tone Director [facility] Goal (LTG) Multifidi, QL, Glute Max, and Piriformis tone to Mild LTG Duration 11/24/18 - Improving, all from severe->mod tone One Impairment Palpation Tenderness Director [facility] Goal (LTG) Low back tenderness to palpation down to 1/5 - Complaint of pain LTG Duration 11/24/18 - Improving - down from 3/4 to 2/4 in all areas Assessment Summary Assessment Pt noted improvement in pain and mobility following manual therapy, his exercises have been going well at home. Physical Therapy Plan Frequency and Duration Frequency of Treatment 2x/Week Duration of Treatment 12 weeks Plan of Care Start Date 09/26/18 Plan of Care End Date 12/19/18 Therapeutic Interventions Therapeutic Interventions Aquatic Therapy Home Exercise Program Joint Mobilizations Manual Therapy Neuromuscular Re-education Patient/Caregiver Education Soft Tissue Mobilization Therapeutic Exercises Vestibular Rehabilitation Modalities Cold Pack/Ice Massage Electric Stimulation Hot Packs Ultrasound Next Visit Focus/Plan Next Note Type Treatment Note Next Visit Plan Manual therapy for decreasing spasm, modalities (US, E-stim) .
--- NOTE | 2018-11-19 12:27 | PT.OTN ---
Current Diagnoses Unspecified inflammatory spondylopathy, lumbar region (11/19/18) Physical Therapy Treatment Note PT-OP-A Visit Information Start: 12/21/17 16:51 Freq: Status: Active Protocol: Document 11/19/18 09:45 DCW (Rec: 11/19/18 12:27 DCW [id number]) Out-Patient Physical Therapy Visit Information Visit Information Visit Type Treatment Note Visit Start Time 09:45 Visit Stop Time 10:30 Total Visit Minutes 45 Visit Number 44 Number of LADLE PULLER Visits 0 Evaluation Information Evaluation Date 12/21/17 PT-OP-B Current Condition Start: 12/21/17 16:51 Freq: Status: Active Protocol: Document 03/27/18 14:30 DCW (Rec: 03/27/18 14:43 DCW [id number]) Current Condition Current Functional Impairments (Reported) Functional Limitations- ADL's Pain with standing for 10+ minutes Pain with sitting 30+ minutes Pain disturbs sleep Unable to drive 30+ minutes Functional Limitations- Mobility/Gait Pt reports he must drive from his house to the barn, which is ~100 yards away. 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 Personal Factors Other Personal Factors That May Effect Morbid Obesity, Neuropathy, Therapy/Recovery Phrenic nerve palsy, cervical spinal fusion PT-OP-C Subjective Start: 12/21/17 16:51 Freq: Status: Active Protocol: Document 11/19/18 09:45 DCW (Rec: 11/19/18 12:27 DCW [id number]) OP-PT Subjective Patient Comments Patient Comments I'm feeling like we're finally getting ahead of this and really making some progress. PT-OP-F Manual Assessment Start: 12/21/17 16:51 Freq: Status: Active Protocol: Document 09/26/18 14:30 DCW (Rec: 09/26/18 15:13 DCW [id number]) Manual Assessments Joint Mobility Assessment Joint Mobility Assessment P->A hypomobility and 2/5 - Pain with Wincing, tenderness in L1-L5 and bilateral SI joints PT-OP-J Posture/Palpation/Skin Start: 12/21/17 16:51 Freq: Status: Active Protocol: Document 09/26/18 14:30 DCW (Rec: 09/26/18 15:13 DCW [id number]) Palpation Assessment Location Four Palpation Location Gluteus Max Palpation Findings Soft Tissue Tightness Spasm Muscle Guarding Tenderness Palpation Details Moderate Tone and Tenderness 2 /5 - Pain with Wincing Three Palpation Location Quadratus Lumborum Palpation Findings Soft Tissue Tightness Spasm Muscle Guarding Tenderness Palpation Details Moderate Tone and Tenderness 2 /5 - Pain with Wincing Two Palpation Location Piriformis Palpation Findings Soft Tissue Tightness Spasm Muscle Guarding Tenderness Palpation Details Moderate Tone and Tenderness 2 /5 - Pain with Wincing One Palpation Location Multifidi Palpation Findings Soft Tissue Tightness Spasm Muscle Guarding Tenderness Palpation Details Moderate Tone and Tenderness 2 /5 - Pain with Wincing PT-OP-K Range of Motion Start: 12/21/17 16:51 Freq: Status: Active Protocol: Document 09/26/18 14:30 DCW (Rec: 09/26/18 15:13 DCW [id number]) Lumbar Spine Range of Motion Lumbar Spine Active Degrees Testing Position Standing Flexion 15 Extension 0 Comments Rotation and Lateral Flexion not tested secondary to pain PT-OP-L Special Tests Start: 12/21/17 16:51 Freq: Status: Active Protocol: Document 09/26/18 14:30 DCW (Rec: 09/26/18 15:13 DCW [id number]) Special Tests Lumbar Spine Special Tests Standing Flexion Test Results Lumbar spine unable to flex more than 15 degrees Prone Knee Flexion Test Results Quad tightness Straight Leg Raise Test Results Severe Bilateral pain at 35 degrees Prone Press Up Test Results Complaints of Pain PT-OP-Q Treatments Start: 12/21/17 16:51 Freq: Status: Active Protocol: Document 11/19/18 09:45 DCW (Rec: 11/19/18 12:27 DCW [id number]) Manual Therapy Treatment Soft Tissue Mobilization 5 Body Location Proximal Gastroc heads, bilateral Mobilization Type Instrument Assisted Myofascial Release Rolling Strumming Sustained Pressure Trigger Point Release Intensity/Depth Moderate Body Position Prone 4 Body Location Lumbar Paravetebral Musculature Mobilization Type Cross-Friction Instrument Assisted Rolling Strumming Sustained Pressure Trigger Point Release Intensity/Depth Moderate Body Position Prone 3 Body Location Piriformis Mobilization Type Myofascial Release 2 Body Location Quadratus Lumborum Mobilization Type Myofascial Release Strumming Sustained Pressure Trigger Point Release Intensity/Depth Deep Body Position Prone 1 Body Location Multifidi Mobilization Type Myofascial Release Strumming Sustained Pressure Trigger Point Release Intensity/Depth Moderate Body Position Prone Joint Mobilizations 1 Joint Lumbar 1-5 Direction P->A Grade III Body Position Prone PT-OP-R Modalities Start: 12/21/17 16:51 Freq: Status: Active Protocol: Document 11/19/18 09:45 DCW (Rec: 11/19/18 12:27 DCW [id number]) Ultrasound Therapy Treatment Right Lower Back Treatment Duration (minutes) 5 Patient Position Prone Coupling Medium Ultrasound Gel Frequency Setting (mHz) 1 Mode Setting Continuous Intensity Setting (w/cm2) 1.2 Left Lower Back Treatment Duration (minutes) 5 Patient Position Prone Coupling Medium Ultrasound Gel Frequency Setting (mHz) 1 Mode Setting Continuous Intensity Setting (w/cm2) 1.2 PT-OP-T Assessment and Plan Start: 12/21/17 16:51 Freq: Status: Active Protocol: Document 11/19/18 09:45 DCW (Rec: 11/19/18 12:27 DCW [id number]) Physical Therapy Assessment Impairments Impairments Activity Tolerance Balance Pain Posture ROM Soft Tissue Mobility Tone Goals Six Impairment Activity Tolerance Short Term Goal (STG) Pt to report ability to drive for 60 minutes with no increased pain STG Duration 10/24/18 - improving - 20 minutes Director Security Risk Management Goal (LTG) Pt to report ability to walk down to his barn from the house (100 yards) with no increased pain LTG Duration 11/24/18 - Improving - walk down and snf back Five Impairment Pain Short Term Goal (STG) Pt to report pain at worst 7/ 10 STG Duration 10/24/18 Director Security Risk Management Goal (LTG) Pt to report pain at worst 4/ 10 LTG Duration 11/24/18 Four Impairment SLR [facility] Goal (LTG) SLR to 50 degrees without increased pain LTG Duration 11/24/18 Three Impairment Joint Mobility [facility] Goal (LTG) P->A mobility of L1-5 to WNL LTG Duration 11/24/18 - Improving Two Impairment Muscle Tone [facility] Goal (LTG) Multifidi, QL, Glute Max, and Piriformis tone to Mild LTG Duration 11/24/18 - Improving, all from severe->mod tone One Impairment Palpation Tenderness Director Security Risk Management Goal (LTG) Low back tenderness to palpation down to 1/5 - Complaint of pain LTG Duration 11/24/18 - Improving - down from 3/4 to 2/4 in all areas Assessment Summary Assessment Pt presenting with noticeable improvement in tenderness to palpation and tone throughout all areas. right calf remains the area with the most tone, however his lumbar paraspinals are significantly improved bilaterally. Physical Therapy Plan Frequency and Duration Frequency of Treatment 2x/Week Duration of Treatment 12 weeks Plan of Care Start Date 09/26/18 Plan of Care End Date 12/19/18 Therapeutic Interventions Therapeutic Interventions Aquatic Therapy Home Exercise Program Joint Mobilizations Manual Therapy Neuromuscular Re-education Patient/Caregiver Education Soft Tissue Mobilization Therapeutic Exercises Vestibular Rehabilitation Modalities Cold Pack/Ice Massage Electric Stimulation Hot Packs Ultrasound Next Visit Focus/Plan Next Note Type Treatment Note Next Visit Plan Manual therapy for decreasing spasm, modalities (US, E-stim) .
--- NOTE | 2018-11-27 17:49 | PT.OTN ---
Current Diagnoses Unspecified inflammatory spondylopathy, lumbar region (11/27/18) Physical Therapy Treatment Note PT-OP-A Visit Information Start: 12/21/17 16:51 Freq: Status: Active Protocol: Document 11/27/18 16:00 DCW (Rec: 11/27/18 17:49 DCW [id number]) Out-Patient Physical Therapy Visit Information Visit Information Visit Type Treatment Note Visit Start Time 16:00 Visit Stop Time 16:45 Total Visit Minutes 45 Visit Number 45 Number of HOUSE REPAIRER Visits 0 Evaluation Information Evaluation Date 12/21/17 PT-OP-B Current Condition Start: 12/21/17 16:51 Freq: Status: Active Protocol: Document 03/27/18 14:30 DCW (Rec: 03/27/18 14:43 DCW [id number]) Current Condition Current Functional Impairments (Reported) Functional Limitations- ADL's Pain with standing for 10+ minutes Pain with sitting 30+ minutes Pain disturbs sleep Unable to drive 30+ minutes Functional Limitations- Mobility/Gait Pt reports he must drive from his house to the barn, which is ~100 yards away. 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 Personal Factors Other Personal Factors That May Effect Morbid Obesity, Neuropathy, Therapy/Recovery Phrenic nerve palsy, cervical spinal fusion PT-OP-C Subjective Start: 12/21/17 16:51 Freq: Status: Active Protocol: Document 11/27/18 16:00 DCW (Rec: 11/27/18 17:49 DCW [id number]) OP-PT Subjective Patient Comments Patient Comments I feel like this was one of our best sessions ever. Nothing was too tender or sore . PT-OP-F Manual Assessment Start: 12/21/17 16:51 Freq: Status: Active Protocol: Document 09/26/18 14:30 DCW (Rec: 09/26/18 15:13 DCW [id number]) Manual Assessments Joint Mobility Assessment Joint Mobility Assessment P->A hypomobility and 2/5 - Pain with Wincing, tenderness in L1-L5 and bilateral SI joints PT-OP-J Posture/Palpation/Skin Start: 12/21/17 16:51 Freq: Status: Active Protocol: Document 09/26/18 14:30 DCW (Rec: 09/26/18 15:13 DCW [id number]) Palpation Assessment Location Four Palpation Location Gluteus Max Palpation Findings Soft Tissue Tightness Spasm Muscle Guarding Tenderness Palpation Details Moderate Tone and Tenderness 2 /5 - Pain with Wincing Three Palpation Location Quadratus Lumborum Palpation Findings Soft Tissue Tightness Spasm Muscle Guarding Tenderness Palpation Details Moderate Tone and Tenderness 2 /5 - Pain with Wincing Two Palpation Location Piriformis Palpation Findings Soft Tissue Tightness Spasm Muscle Guarding Tenderness Palpation Details Moderate Tone and Tenderness 2 /5 - Pain with Wincing One Palpation Location Multifidi Palpation Findings Soft Tissue Tightness Spasm Muscle Guarding Tenderness Palpation Details Moderate Tone and Tenderness 2 /5 - Pain with Wincing PT-OP-K Range of Motion Start: 12/21/17 16:51 Freq: Status: Active Protocol: Document 09/26/18 14:30 DCW (Rec: 09/26/18 15:13 DCW [id number]) Lumbar Spine Range of Motion Lumbar Spine Active Degrees Testing Position Standing Flexion 15 Extension 0 Comments Rotation and Lateral Flexion not tested secondary to pain PT-OP-L Special Tests Start: 12/21/17 16:51 Freq: Status: Active Protocol: Document 09/26/18 14:30 DCW (Rec: 09/26/18 15:13 DCW [id number]) Special Tests Lumbar Spine Special Tests Standing Flexion Test Results Lumbar spine unable to flex more than 15 degrees Prone Knee Flexion Test Results Quad tightness Straight Leg Raise Test Results Severe Bilateral pain at 35 degrees Prone Press Up Test Results Complaints of Pain PT-OP-Q Treatments Start: 12/21/17 16:51 Freq: Status: Active Protocol: Document 11/27/18 16:00 DCW (Rec: 11/27/18 17:49 DCW [id number]) Manual Therapy Treatment Soft Tissue Mobilization 5 Body Location Proximal Gastroc heads, bilateral Mobilization Type Instrument Assisted Myofascial Release Rolling Strumming Sustained Pressure Trigger Point Release Intensity/Depth Moderate Body Position Prone 4 Body Location Lumbar Paravetebral Musculature Mobilization Type Cross-Friction Instrument Assisted Rolling Strumming Sustained Pressure Trigger Point Release Intensity/Depth Moderate Body Position Prone 3 Body Location Piriformis Mobilization Type Myofascial Release 2 Body Location Quadratus Lumborum Mobilization Type Myofascial Release Strumming Sustained Pressure Trigger Point Release Intensity/Depth Deep Body Position Prone 1 Body Location Multifidi Mobilization Type Myofascial Release Strumming Sustained Pressure Trigger Point Release Intensity/Depth Moderate Body Position Prone Joint Mobilizations 1 Joint Lumbar 1-5 Direction P->A Grade III Body Position Prone PT-OP-R Modalities Start: 12/21/17 16:51 Freq: Status: Active Protocol: Document 11/27/18 16:00 DCW (Rec: 11/27/18 17:49 DCW [id number]) Ultrasound Therapy Treatment Right Lower Back Treatment Duration (minutes) 4 Patient Position Prone Coupling Medium Ultrasound Gel Frequency Setting (mHz) 1 Mode Setting Continuous Intensity Setting (w/cm2) 1.2 Left Lower Back Treatment Duration (minutes) 4 Patient Position Prone Coupling Medium Ultrasound Gel Frequency Setting (mHz) 1 Mode Setting Continuous Intensity Setting (w/cm2) 1.2 PT-OP-T Assessment and Plan Start: 12/21/17 16:51 Freq: Status: Active Protocol: Document 11/27/18 16:00 DCW (Rec: 11/27/18 17:49 DCW [id number]) Physical Therapy Assessment Impairments Impairments Activity Tolerance Balance Pain Posture ROM Soft Tissue Mobility Tone Goals Six Impairment Activity Tolerance Short Term Goal (STG) Pt to report ability to drive for 60 minutes with no increased pain STG Duration 10/24/18 - improving - 20 minutes Reconciliation Manager Goal (LTG) Pt to report ability to walk down to his barn from the house (100 yards) with no increased pain LTG Duration 11/24/18 - Improving - walk down and [facility] back Five Impairment Pain Short Term Goal (STG) Pt to report pain at worst 7/ 10 STG Duration 10/24/18 Reconciliation Manager Goal (LTG) Pt to report pain at worst 4/ 10 LTG Duration 11/24/18 Four Impairment SLR [facility] Goal (LTG) SLR to 50 degrees without increased pain LTG Duration 11/24/18 Three Impairment Joint Mobility Reconciliation Manager Goal (LTG) P->A mobility of L1-5 to WNL LTG Duration 11/24/18 - Improving Two Impairment Muscle Tone [facility] Goal (LTG) Multifidi, QL, Glute Max, and Piriformis tone to Mild LTG Duration 11/24/18 - Improving, all from severe->mod tone One Impairment Palpation Tenderness Reconciliation Manager Goal (LTG) Low back tenderness to palpation down to 1/5 - Complaint of pain LTG Duration 11/24/18 - Improving - down from 3/4 to 2/4 in all areas Assessment Summary Assessment Pt continues to show improvement in pain level, mobility, and tone, may be approaching plateau and discharge of improvement continues. Physical Therapy Plan Frequency and Duration Frequency of Treatment 2x/Week Duration of Treatment 12 weeks Plan of Care Start Date 09/26/18 Plan of Care End Date 12/19/18 Therapeutic Interventions Therapeutic Interventions Aquatic Therapy Home Exercise Program Joint Mobilizations Manual Therapy Neuromuscular Re-education Patient/Caregiver Education Soft Tissue Mobilization Therapeutic Exercises Vestibular Rehabilitation Modalities Cold Pack/Ice Massage Electric Stimulation Hot Packs Ultrasound Next Visit Focus/Plan Next Note Type Treatment Note Next Visit Plan Manual therapy for decreasing spasm, modalities (US, E-stim) .
--- NOTE | 2018-12-04 15:25 | PT.OTN ---
Current Diagnoses Unspecified inflammatory spondylopathy, lumbar region (12/04/18) Physical Therapy Treatment Note PT-OP-A Visit Information Start: 12/21/17 16:51 Freq: Status: Active Protocol: Document 12/04/18 14:30 DCW (Rec: 12/04/18 15:25 DCW [id number]) Out-Patient Physical Therapy Visit Information Visit Information Visit Type Treatment Note Visit Start Time 14:30 Visit Stop Time 15:15 Total Visit Minutes 45 Visit Number 46 Number of INTERIOR DECORATOR PAPERHANGING Visits 0 Evaluation Information Evaluation Date 12/21/17 PT-OP-B Current Condition Start: 12/21/17 16:51 Freq: Status: Active Protocol: Document 03/27/18 14:30 DCW (Rec: 03/27/18 14:43 DCW [id number]) Current Condition Current Functional Impairments (Reported) Functional Limitations- ADL's Pain with standing for 10+ minutes Pain with sitting 30+ minutes Pain disturbs sleep Unable to drive 30+ minutes Functional Limitations- Mobility/Gait Pt reports he must drive from his house to the barn, which is ~100 yards away. 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 Personal Factors Other Personal Factors That May Effect Morbid Obesity, Neuropathy, Therapy/Recovery Phrenic nerve palsy, cervical spinal fusion PT-OP-C Subjective Start: 12/21/17 16:51 Freq: Status: Active Protocol: Document 12/04/18 14:30 DCW (Rec: 12/04/18 15:25 DCW [id number]) OP-PT Subjective Patient Comments Patient Comments Pt reports that he has been feeling so good recently, he went three days without a fentanyl patch, until last night when he got a severer headache. PT-OP-F Manual Assessment Start: 12/21/17 16:51 Freq: Status: Active Protocol: Document 09/26/18 14:30 DCW (Rec: 09/26/18 15:13 DCW [id number]) Manual Assessments Joint Mobility Assessment Joint Mobility Assessment P->A hypomobility and 2/5 - Pain with Wincing, tenderness in L1-L5 and bilateral SI joints PT-OP-J Posture/Palpation/Skin Start: 12/21/17 16:51 Freq: Status: Active Protocol: Document 09/26/18 14:30 DCW (Rec: 09/26/18 15:13 DCW [id number]) Palpation Assessment Location Four Palpation Location Gluteus Max Palpation Findings Soft Tissue Tightness Spasm Muscle Guarding Tenderness Palpation Details Moderate Tone and Tenderness 2 /5 - Pain with Wincing Three Palpation Location Quadratus Lumborum Palpation Findings Soft Tissue Tightness Spasm Muscle Guarding Tenderness Palpation Details Moderate Tone and Tenderness 2 /5 - Pain with Wincing Two Palpation Location Piriformis Palpation Findings Soft Tissue Tightness Spasm Muscle Guarding Tenderness Palpation Details Moderate Tone and Tenderness 2 /5 - Pain with Wincing One Palpation Location Multifidi Palpation Findings Soft Tissue Tightness Spasm Muscle Guarding Tenderness Palpation Details Moderate Tone and Tenderness 2 /5 - Pain with Wincing PT-OP-K Range of Motion Start: 12/21/17 16:51 Freq: Status: Active Protocol: Document 09/26/18 14:30 DCW (Rec: 09/26/18 15:13 DCW [id number]) Lumbar Spine Range of Motion Lumbar Spine Active Degrees Testing Position Standing Flexion 15 Extension 0 Comments Rotation and Lateral Flexion not tested secondary to pain PT-OP-L Special Tests Start: 12/21/17 16:51 Freq: Status: Active Protocol: Document 09/26/18 14:30 DCW (Rec: 09/26/18 15:13 DCW [id number]) Special Tests Lumbar Spine Special Tests Standing Flexion Test Results Lumbar spine unable to flex more than 15 degrees Prone Knee Flexion Test Results Quad tightness Straight Leg Raise Test Results Severe Bilateral pain at 35 degrees Prone Press Up Test Results Complaints of Pain PT-OP-Q Treatments Start: 12/21/17 16:51 Freq: Status: Active Protocol: Document 12/04/18 14:30 DCW (Rec: 12/04/18 15:25 DCW [id number]) Manual Therapy Treatment Soft Tissue Mobilization 5 Body Location Proximal Gastroc heads, bilateral Mobilization Type Instrument Assisted Myofascial Release Rolling Strumming Sustained Pressure Trigger Point Release Intensity/Depth Moderate Body Position Prone 4 Body Location Lumbar Paravetebral Musculature Mobilization Type Cross-Friction Instrument Assisted Rolling Strumming Sustained Pressure Trigger Point Release Intensity/Depth Moderate Body Position Prone 3 Body Location Piriformis Mobilization Type Myofascial Release 2 Body Location Quadratus Lumborum Mobilization Type Myofascial Release Strumming Sustained Pressure Trigger Point Release Intensity/Depth Deep Body Position Prone 1 Body Location Multifidi Mobilization Type Myofascial Release Strumming Sustained Pressure Trigger Point Release Intensity/Depth Moderate Body Position Prone Joint Mobilizations 1 Joint Lumbar 1-5 Direction P->A Grade III Body Position Prone PT-OP-R Modalities Start: 12/21/17 16:51 Freq: Status: Active Protocol: Document 12/04/18 14:30 DCW (Rec: 12/04/18 15:25 DCW [id number]) Ultrasound Therapy Treatment Right Lower Back Treatment Duration (minutes) 5 Patient Position Prone Coupling Medium Ultrasound Gel Frequency Setting (mHz) 1 Mode Setting Continuous Intensity Setting (w/cm2) 1.2 Left Lower Back Treatment Duration (minutes) 5 Patient Position Prone Coupling Medium Ultrasound Gel Frequency Setting (mHz) 1 Mode Setting Continuous Intensity Setting (w/cm2) 1.2 PT-OP-T Assessment and Plan Start: 12/21/17 16:51 Freq: Status: Active Protocol: Document 12/04/18 14:30 DCW (Rec: 12/04/18 15:25 DCW [id number]) Physical Therapy Assessment Impairments Impairments Activity Tolerance Balance Pain Posture ROM Soft Tissue Mobility Tone Goals Six Impairment Activity Tolerance Short Term Goal (STG) Pt to report ability to drive for 60 minutes with no increased pain STG Duration 10/24/18 - improving - 20 minutes Solo Truck Driver Goal (LTG) Pt to report ability to walk down to his barn from the house (100 yards) with no increased pain LTG Duration 11/24/18 - Improving - walk down and fdc back Five Impairment Pain Short Term Goal (STG) Pt to report pain at worst 7/ 10 STG Duration 10/24/18 Solo Truck Driver Goal (LTG) Pt to report pain at worst 4/ 10 LTG Duration 11/24/18 Four Impairment SLR Skilled Nursing Goal (LTG) SLR to 50 degrees without increased pain LTG Duration 11/24/18 Three Impairment Joint Mobility Skilled Nursing Goal (LTG) P->A mobility of L1-5 to WNL LTG Duration 11/24/18 - Improving Two Impairment Muscle Tone Solo Truck Driver Goal (LTG) Multifidi, QL, Glute Max, and Piriformis tone to Mild LTG Duration 11/24/18 - Improving, all from severe->mod tone One Impairment Palpation Tenderness Skilled Nursing Goal (LTG) Low back tenderness to palpation down to 1/5 - Complaint of pain LTG Duration 11/24/18 - Improving - down from 3/4 to 2/4 in all areas Assessment Summary Assessment Pt doing well today, continues to show progress with level of tone. Physical Therapy Plan Frequency and Duration Frequency of Treatment 2x/Week Duration of Treatment 12 weeks Plan of Care Start Date 09/26/18 Plan of Care End Date 12/19/18 Therapeutic Interventions Therapeutic Interventions Aquatic Therapy Home Exercise Program Joint Mobilizations Manual Therapy Neuromuscular Re-education Patient/Caregiver Education Soft Tissue Mobilization Therapeutic Exercises Vestibular Rehabilitation Modalities Cold Pack/Ice Massage Electric Stimulation Hot Packs Ultrasound Next Visit Focus/Plan Next Note Type Treatment Note Next Visit Plan Manual therapy for decreasing spasm, modalities (US, E-stim) .
--- NOTE | 2018-12-10 16:15 | PT.OTN ---
Current Diagnoses Unspecified inflammatory spondylopathy, lumbar region (12/10/18) Physical Therapy Treatment Note PT-OP-A Visit Information Start: 12/21/17 16:51 Freq: Status: Active Protocol: Document 12/10/18 15:15 DCW (Rec: 12/10/18 16:15 DCW [id number]) Out-Patient Physical Therapy Visit Information Visit Information Visit Type Treatment Note Visit Start Time 15:15 Visit Stop Time 16:00 Total Visit Minutes 45 Visit Number 47 Number of HAND I BLOCKER Visits 0 Evaluation Information Evaluation Date 12/21/17 PT-OP-B Current Condition Start: 12/21/17 16:51 Freq: Status: Active Protocol: Document 03/27/18 14:30 DCW (Rec: 03/27/18 14:43 DCW [id number]) Current Condition Current Functional Impairments (Reported) Functional Limitations- ADL's Pain with standing for 10+ minutes Pain with sitting 30+ minutes Pain disturbs sleep Unable to drive 30+ minutes Functional Limitations- Mobility/Gait Pt reports he must drive from his house to the barn, which is ~100 yards away. 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 Personal Factors Other Personal Factors That May Effect Morbid Obesity, Neuropathy, Therapy/Recovery Phrenic nerve palsy, cervical spinal fusion PT-OP-C Subjective Start: 12/21/17 16:51 Freq: Status: Active Protocol: Document 12/10/18 15:15 DCW (Rec: 12/10/18 16:15 DCW [id number]) OP-PT Subjective Patient Comments Patient Comments Pt notes he feels like I'm standing and walking more upright, I feel more like an actual human again. PT-OP-F Manual Assessment Start: 12/21/17 16:51 Freq: Status: Active Protocol: Document 09/26/18 14:30 DCW (Rec: 09/26/18 15:13 DCW [id number]) Manual Assessments Joint Mobility Assessment Joint Mobility Assessment P->A hypomobility and 2/5 - Pain with Wincing, tenderness in L1-L5 and bilateral SI joints PT-OP-J Posture/Palpation/Skin Start: 12/21/17 16:51 Freq: Status: Active Protocol: Document 09/26/18 14:30 DCW (Rec: 09/26/18 15:13 DCW [id number]) Palpation Assessment Location Four Palpation Location Gluteus Max Palpation Findings Soft Tissue Tightness Spasm Muscle Guarding Tenderness Palpation Details Moderate Tone and Tenderness 2 /5 - Pain with Wincing Three Palpation Location Quadratus Lumborum Palpation Findings Soft Tissue Tightness Spasm Muscle Guarding Tenderness Palpation Details Moderate Tone and Tenderness 2 /5 - Pain with Wincing Two Palpation Location Piriformis Palpation Findings Soft Tissue Tightness Spasm Muscle Guarding Tenderness Palpation Details Moderate Tone and Tenderness 2 /5 - Pain with Wincing One Palpation Location Multifidi Palpation Findings Soft Tissue Tightness Spasm Muscle Guarding Tenderness Palpation Details Moderate Tone and Tenderness 2 /5 - Pain with Wincing PT-OP-K Range of Motion Start: 12/21/17 16:51 Freq: Status: Active Protocol: Document 09/26/18 14:30 DCW (Rec: 09/26/18 15:13 DCW [id number]) Lumbar Spine Range of Motion Lumbar Spine Active Degrees Testing Position Standing Flexion 15 Extension 0 Comments Rotation and Lateral Flexion not tested secondary to pain PT-OP-L Special Tests Start: 12/21/17 16:51 Freq: Status: Active Protocol: Document 09/26/18 14:30 DCW (Rec: 09/26/18 15:13 DCW [id number]) Special Tests Lumbar Spine Special Tests Standing Flexion Test Results Lumbar spine unable to flex more than 15 degrees Prone Knee Flexion Test Results Quad tightness Straight Leg Raise Test Results Severe Bilateral pain at 35 degrees Prone Press Up Test Results Complaints of Pain PT-OP-Q Treatments Start: 12/21/17 16:51 Freq: Status: Active Protocol: Document 12/10/18 15:15 DCW (Rec: 12/10/18 16:15 DCW [id number]) Manual Therapy Treatment Soft Tissue Mobilization 5 Body Location Proximal Gastroc heads, bilateral Mobilization Type Instrument Assisted Myofascial Release Rolling Strumming Sustained Pressure Trigger Point Release Intensity/Depth Moderate Body Position Prone 4 Body Location Lumbar Paravetebral Musculature Mobilization Type Cross-Friction Instrument Assisted Rolling Strumming Sustained Pressure Trigger Point Release Intensity/Depth Moderate Body Position Prone 3 Body Location Piriformis Mobilization Type Myofascial Release 2 Body Location Quadratus Lumborum Mobilization Type Myofascial Release Strumming Sustained Pressure Trigger Point Release Intensity/Depth Deep Body Position Prone 1 Body Location Multifidi Mobilization Type Myofascial Release Strumming Sustained Pressure Trigger Point Release Intensity/Depth Moderate Body Position Prone Joint Mobilizations 1 Joint Lumbar 1-5 Direction P->A Grade III Body Position Prone PT-OP-R Modalities Start: 12/21/17 16:51 Freq: Status: Active Protocol: Document 12/10/18 15:15 DCW (Rec: 12/10/18 16:15 DCW [id number]) Ultrasound Therapy Treatment Right Lower Back Treatment Duration (minutes) 5 Patient Position Prone Coupling Medium Ultrasound Gel Frequency Setting (mHz) 1 Mode Setting Continuous Intensity Setting (w/cm2) 1.2 Left Lower Back Treatment Duration (minutes) 5 Patient Position Prone Coupling Medium Ultrasound Gel Frequency Setting (mHz) 1 Mode Setting Continuous Intensity Setting (w/cm2) 1.2 PT-OP-T Assessment and Plan Start: 12/21/17 16:51 Freq: Status: Active Protocol: Document 12/10/18 15:15 DCW (Rec: 12/10/18 16:15 DCW [id number]) Physical Therapy Assessment Impairments Impairments Activity Tolerance Balance Pain Posture ROM Soft Tissue Mobility Tone Goals Six Impairment Activity Tolerance Short Term Goal (STG) Pt to report ability to drive for 60 minutes with no increased pain STG Duration 10/24/18 - improving - 20 minutes Usp Goal (LTG) Pt to report ability to walk down to his barn from the house (100 yards) with no increased pain LTG Duration 11/24/18 - Improving - walk down and longterm back Five Impairment Pain Short Term Goal (STG) Pt to report pain at worst 7/ 10 STG Duration 10/24/18 Poultry Farm Laborer Goal (LTG) Pt to report pain at worst 4/ 10 LTG Duration 11/24/18 Four Impairment SLR Usp Goal (LTG) SLR to 50 degrees without increased pain LTG Duration 11/24/18 Three Impairment Joint Mobility Usp Goal (LTG) P->A mobility of L1-5 to WNL LTG Duration 11/24/18 - Improving Two Impairment Muscle Tone Usp Goal (LTG) Multifidi, QL, Glute Max, and Piriformis tone to Mild LTG Duration 11/24/18 - Improving, all from severe->mod tone One Impairment Palpation Tenderness Usp Goal (LTG) Low back tenderness to palpation down to 1/5 - Complaint of pain LTG Duration 11/24/18 - Improving - down from 3/4 to 2/4 in all areas Assessment Summary Assessment Pt still progressing, although does tend to increase tone mildly in between sessions. Physical Therapy Plan Frequency and Duration Frequency of Treatment 2x/Week Duration of Treatment 12 weeks Plan of Care Start Date 09/26/18 Plan of Care End Date 12/19/18 Therapeutic Interventions Therapeutic Interventions Aquatic Therapy Home Exercise Program Joint Mobilizations Manual Therapy Neuromuscular Re-education Patient/Caregiver Education Soft Tissue Mobilization Therapeutic Exercises Vestibular Rehabilitation Modalities Cold Pack/Ice Massage Electric Stimulation Hot Packs Ultrasound Next Visit Focus/Plan Next Note Type Treatment Note Next Visit Plan Manual therapy for decreasing spasm, modalities (US, E-stim) .
--- NOTE | 2018-12-17 16:02 | PT.OTN ---
Current Diagnoses Unspecified inflammatory spondylopathy, lumbar region (12/17/18) Physical Therapy Treatment Note PT-OP-A Visit Information Start: 12/21/17 16:51 Freq: Status: Active Protocol: Document 12/17/18 15:15 DCW (Rec: 12/17/18 16:01 DCW [id number]) Out-Patient Physical Therapy Visit Information Visit Information Visit Type Treatment Note Visit Start Time 15:15 Visit Stop Time 16:00 Total Visit Minutes 45 Visit Number 48 Number of TOOL CARRIER Visits 0 Evaluation Information Evaluation Date 12/21/17 PT-OP-B Current Condition Start: 12/21/17 16:51 Freq: Status: Active Protocol: Document 03/27/18 14:30 DCW (Rec: 03/27/18 14:43 DCW [id number]) Current Condition Current Functional Impairments (Reported) Functional Limitations- ADL's Pain with standing for 10+ minutes Pain with sitting 30+ minutes Pain disturbs sleep Unable to drive 30+ minutes Functional Limitations- Mobility/Gait Pt reports he must drive from his house to the barn, which is ~100 yards away. 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 Personal Factors Other Personal Factors That May Effect Morbid Obesity, Neuropathy, Therapy/Recovery Phrenic nerve palsy, cervical spinal fusion PT-OP-C Subjective Start: 12/21/17 16:51 Freq: Status: Active Protocol: Document 12/17/18 15:15 DCW (Rec: 12/17/18 16:01 DCW [id number]) OP-PT Subjective Patient Comments Patient Comments Pt reports his back is ehhh, tight for some reason today. PT-OP-F Manual Assessment Start: 12/21/17 16:51 Freq: Status: Active Protocol: Document 09/26/18 14:30 DCW (Rec: 09/26/18 15:13 DCW [id number]) Manual Assessments Joint Mobility Assessment Joint Mobility Assessment P->A hypomobility and 2/5 - Pain with Wincing, tenderness in L1-L5 and bilateral SI joints PT-OP-J Posture/Palpation/Skin Start: 12/21/17 16:51 Freq: Status: Active Protocol: Document 09/26/18 14:30 DCW (Rec: 09/26/18 15:13 DCW [id number]) Palpation Assessment Location Four Palpation Location Gluteus Max Palpation Findings Soft Tissue Tightness Spasm Muscle Guarding Tenderness Palpation Details Moderate Tone and Tenderness 2 /5 - Pain with Wincing Three Palpation Location Quadratus Lumborum Palpation Findings Soft Tissue Tightness Spasm Muscle Guarding Tenderness Palpation Details Moderate Tone and Tenderness 2 /5 - Pain with Wincing Two Palpation Location Piriformis Palpation Findings Soft Tissue Tightness Spasm Muscle Guarding Tenderness Palpation Details Moderate Tone and Tenderness 2 /5 - Pain with Wincing One Palpation Location Multifidi Palpation Findings Soft Tissue Tightness Spasm Muscle Guarding Tenderness Palpation Details Moderate Tone and Tenderness 2 /5 - Pain with Wincing PT-OP-K Range of Motion Start: 12/21/17 16:51 Freq: Status: Active Protocol: Document 09/26/18 14:30 DCW (Rec: 09/26/18 15:13 DCW [id number]) Lumbar Spine Range of Motion Lumbar Spine Active Degrees Testing Position Standing Flexion 15 Extension 0 Comments Rotation and Lateral Flexion not tested secondary to pain PT-OP-L Special Tests Start: 12/21/17 16:51 Freq: Status: Active Protocol: Document 09/26/18 14:30 DCW (Rec: 09/26/18 15:13 DCW [id number]) Special Tests Lumbar Spine Special Tests Standing Flexion Test Results Lumbar spine unable to flex more than 15 degrees Prone Knee Flexion Test Results Quad tightness Straight Leg Raise Test Results Severe Bilateral pain at 35 degrees Prone Press Up Test Results Complaints of Pain PT-OP-Q Treatments Start: 12/21/17 16:51 Freq: Status: Active Protocol: Document 12/17/18 15:15 DCW (Rec: 12/17/18 16:01 DCW [id number]) Manual Therapy Treatment Soft Tissue Mobilization 6 Body Location Suboccipitals Mobilization Type Sustained Pressure Body Position Prone 5 Body Location Proximal Gastroc heads, bilateral Mobilization Type Instrument Assisted Myofascial Release Rolling Strumming Sustained Pressure Trigger Point Release Intensity/Depth Moderate Body Position Prone 4 Body Location Lumbar Paravetebral Musculature Mobilization Type Cross-Friction Instrument Assisted Rolling Strumming Sustained Pressure Trigger Point Release Intensity/Depth Moderate Body Position Prone 3 Body Location Piriformis Mobilization Type Myofascial Release 2 Body Location Quadratus Lumborum Mobilization Type Myofascial Release Strumming Sustained Pressure Trigger Point Release Intensity/Depth Deep Body Position Prone 1 Body Location Multifidi Mobilization Type Myofascial Release Strumming Sustained Pressure Trigger Point Release Intensity/Depth Moderate Body Position Prone Joint Mobilizations 1 Joint Lumbar 1-5 Direction P->A Grade III Body Position Prone PT-OP-R Modalities Start: 12/21/17 16:51 Freq: Status: Active Protocol: Document 12/10/18 15:15 DCW (Rec: 12/10/18 16:15 DCW [id number]) Ultrasound Therapy Treatment Right Lower Back Treatment Duration (minutes) 5 Patient Position Prone Coupling Medium Ultrasound Gel Frequency Setting (mHz) 1 Mode Setting Continuous Intensity Setting (w/cm2) 1.2 Left Lower Back Treatment Duration (minutes) 5 Patient Position Prone Coupling Medium Ultrasound Gel Frequency Setting (mHz) 1 Mode Setting Continuous Intensity Setting (w/cm2) 1.2 PT-OP-T Assessment and Plan Start: 12/21/17 16:51 Freq: Status: Active Protocol: Document 12/17/18 15:15 DCW (Rec: 12/17/18 16:01 DCW [id number]) Physical Therapy Assessment Impairments Impairments Activity Tolerance Balance Pain Posture ROM Soft Tissue Mobility Tone Goals Six Impairment Activity Tolerance Short Term Goal (STG) Pt to report ability to drive for 60 minutes with no increased pain STG Duration 10/24/18 - improving - 20 minutes Histotechnologist Goal (LTG) Pt to report ability to walk down to his barn from the house (100 yards) with no increased pain LTG Duration 11/24/18 - Improving - walk down and intermediate back Five Impairment Pain Short Term Goal (STG) Pt to report pain at worst 7/ 10 STG Duration 10/24/18 Detention Goal (LTG) Pt to report pain at worst 4/ 10 LTG Duration 11/24/18 Four Impairment SLR Histotechnologist Goal (LTG) SLR to 50 degrees without increased pain LTG Duration 11/24/18 Three Impairment Joint Mobility Detention Goal (LTG) P->A mobility of L1-5 to WNL LTG Duration 11/24/18 - Improving Two Impairment Muscle Tone Detention Goal (LTG) Multifidi, QL, Glute Max, and Piriformis tone to Mild LTG Duration 11/24/18 - Improving, all from severe->mod tone One Impairment Palpation Tenderness Detention Goal (LTG) Low back tenderness to palpation down to 1/5 - Complaint of pain LTG Duration 11/24/18 - Improving - down from 3/4 to 2/4 in all areas Assessment Summary Assessment Pt attends today's session with slightly more tone after moving around a half-full 20 gallon fishtank yesterday. Discussed with pt return to Dr Wagner for reassessment of his back. Physical Therapy Plan Frequency and Duration Frequency of Treatment 2x/Week Duration of Treatment 12 weeks Plan of Care Start Date 09/26/18 Plan of Care End Date 12/19/18 Therapeutic Interventions Therapeutic Interventions Aquatic Therapy Home Exercise Program Joint Mobilizations Manual Therapy Neuromuscular Re-education Patient/Caregiver Education Soft Tissue Mobilization Therapeutic Exercises Vestibular Rehabilitation Modalities Cold Pack/Ice Massage Electric Stimulation Hot Packs Ultrasound Next Visit Focus/Plan Next Note Type Treatment Note Next Visit Plan Manual therapy for decreasing spasm, modalities (US, E-stim) .
--- NOTE | 2018-12-24 17:02 | PT.OTN ---
Current Diagnoses Unspecified inflammatory spondylopathy, lumbar region (12/24/18) Physical Therapy Treatment Note PT-OP-A Visit Information Start: 12/21/17 16:51 Freq: Status: Active Protocol: Document 12/24/18 15:15 DCW (Rec: 12/24/18 17:00 DCW [id number]) Out-Patient Physical Therapy Visit Information Visit Information Visit Type Progress Note Visit Start Time 15:15 Visit Stop Time 16:00 Total Visit Minutes 45 Visit Number 49 Number of MESSAGE BROKER DEVELOPER Visits 0 Evaluation Information Evaluation Date 12/21/17 PT-OP-B Current Condition Start: 12/21/17 16:51 Freq: Status: Active Protocol: Document 03/27/18 14:30 DCW (Rec: 03/27/18 14:43 DCW [id number]) Current Condition Current Functional Impairments (Reported) Functional Limitations- ADL's Pain with standing for 10+ minutes Pain with sitting 30+ minutes Pain disturbs sleep Unable to drive 30+ minutes Functional Limitations- Mobility/Gait Pt reports he must drive from his house to the barn, which is ~100 yards away. 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 Personal Factors Other Personal Factors That May Effect Morbid Obesity, Neuropathy, Therapy/Recovery Phrenic nerve palsy, cervical spinal fusion PT-OP-C Subjective Start: 12/21/17 16:51 Freq: Status: Active Protocol: Document 12/24/18 15:15 DCW (Rec: 12/24/18 17:00 DCW [id number]) OP-PT Subjective Patient Comments Patient Comments Pt notes he is doing well today. PT-OP-F Manual Assessment Start: 12/21/17 16:51 Freq: Status: Active Protocol: Document 09/26/18 14:30 DCW (Rec: 09/26/18 15:13 DCW [id number]) Manual Assessments Joint Mobility Assessment Joint Mobility Assessment P->A hypomobility and 2/5 - Pain with Wincing, tenderness in L1-L5 and bilateral SI joints PT-OP-J Posture/Palpation/Skin Start: 12/21/17 16:51 Freq: Status: Active Protocol: Document 12/24/18 15:15 DCW (Rec: 12/24/18 16:00 DCW [id number]) Palpation Assessment Location Four Palpation Location Gluteus Max Palpation Findings Soft Tissue Tightness Spasm Muscle Guarding Tenderness Palpation Details Moderate Tone and Tenderness 2 /5 - Pain with Wincing Three Palpation Location Quadratus Lumborum Palpation Findings Soft Tissue Tightness Spasm Muscle Guarding Tenderness Palpation Details Moderate Tone and Tenderness 2 /5 - Pain with Wincing Two Palpation Location Piriformis Palpation Findings Soft Tissue Tightness Spasm Muscle Guarding Tenderness Palpation Details Moderate Tone and Tenderness 2 /5 - Pain with Wincing One Palpation Location Multifidi Palpation Findings Soft Tissue Tightness Spasm Muscle Guarding Tenderness Palpation Details Moderate Tone and Tenderness 2 /5 - Pain with Wincing PT-OP-K Range of Motion Start: 12/21/17 16:51 Freq: Status: Active Protocol: Document 12/24/18 15:15 DCW (Rec: 12/24/18 16:00 DCW [id number]) Lumbar Spine Range of Motion Lumbar Spine Active Degrees Testing Position Standing Flexion 22 Extension 8 Comments Rotation and Lateral Flexion not tested secondary to pain PT-OP-L Special Tests Start: 12/21/17 16:51 Freq: Status: Active Protocol: Document 12/24/18 15:15 DCW (Rec: 12/24/18 16:00 DCW [id number]) Special Tests Lumbar Spine Special Tests Standing Flexion Test Results Lumbar spine unable to flex more than 15 degrees Prone Knee Flexion Test Results Quad tightness Straight Leg Raise Test Results Severe Bilateral pain at 35 degrees Prone Press Up Test Results Complaints of Pain PT-OP-Q Treatments Start: 12/21/17 16:51 Freq: Status: Active Protocol: Document 12/24/18 15:15 DCW (Rec: 12/24/18 17:00 DCW [id number]) Manual Therapy Treatment Soft Tissue Mobilization 6 Body Location Suboccipitals Mobilization Type Sustained Pressure Body Position Prone 5 Body Location Proximal Gastroc heads, bilateral Mobilization Type Instrument Assisted Myofascial Release Rolling Strumming Sustained Pressure Trigger Point Release Intensity/Depth Moderate Body Position Prone 4 Body Location Lumbar Paravetebral Musculature Mobilization Type Cross-Friction Instrument Assisted Rolling Strumming Sustained Pressure Trigger Point Release Intensity/Depth Moderate Body Position Prone 3 Body Location Piriformis Mobilization Type Myofascial Release 2 Body Location Quadratus Lumborum Mobilization Type Myofascial Release Strumming Sustained Pressure Trigger Point Release Intensity/Depth Deep Body Position Prone 1 Body Location Multifidi Mobilization Type Myofascial Release Strumming Sustained Pressure Trigger Point Release Intensity/Depth Moderate Body Position Prone Joint Mobilizations 1 Joint Lumbar 1-5 Direction P->A Grade III Body Position Prone PT-OP-R Modalities Start: 12/21/17 16:51 Freq: Status: Active Protocol: Document 12/24/18 15:15 DCW (Rec: 12/24/18 17:00 DCW [id number]) Ultrasound Therapy Treatment Right Lower Back Treatment Duration (minutes) 5 Patient Position Prone Coupling Medium Ultrasound Gel Frequency Setting (mHz) 1 Mode Setting Continuous Intensity Setting (w/cm2) 1.2 Left Lower Back Treatment Duration (minutes) 5 Patient Position Prone Coupling Medium Ultrasound Gel Frequency Setting (mHz) 1 Mode Setting Continuous Intensity Setting (w/cm2) 1.2 PT-OP-T Assessment and Plan Start: 12/21/17 16:51 Freq: Status: Active Protocol: Document 12/24/18 15:15 DCW (Rec: 12/24/18 17:00 DCW [id number]) Physical Therapy Assessment Impairments Impairments Activity Tolerance Balance Pain Posture ROM Soft Tissue Mobility Tone Goals Six Impairment Activity Tolerance Short Term Goal (STG) Pt to report ability to drive for 60 minutes with no increased pain STG Duration 01/24/19 - improving - 20 minutes Mcfp Goal (LTG) Pt to report ability to walk down to his barn from the house (100 yards) with no increased pain LTG Duration 02/23/19 - Improving - walk down and group home back Five Impairment Pain Short Term Goal (STG) Pt to report pain at worst 7/ 10 STG Duration 01/24/19 Field Administrator Goal (LTG) Pt to report pain at worst 4/ 10 LTG Duration 02/23/19 Four Impairment SLR Field Administrator Goal (LTG) SLR to 50 degrees without increased pain LTG Duration 02/23/19 Three Impairment Joint Mobility Field Administrator Goal (LTG) P->A mobility of L1-5 to WNL LTG Duration 02/23/19 - Improving Two Impairment Muscle Tone Mcfp Goal (LTG) Multifidi, QL, Glute Max, and Piriformis tone to Mild LTG Duration 02/23/19 - Improving, all from severe->mod tone One Impairment Palpation Tenderness Mcfp Goal (LTG) Low back tenderness to palpation down to 1/5 - Complaint of pain LTG Duration 02/23/19 - Improving - down from 3/4 to 2/4 in all areas Assessment Summary Assessment Pt showing improvement with his lumbar ROM, and is reporting less stiffness and improved posture. Per pt, his physician is happy with the improvement in his low back mobility. Continued therapy indicated for increasing lumbar ROM, decreasing paraspinal tone, and improving pt's performance of ADLs. Physical Therapy Plan Frequency and Duration Frequency of Treatment 2x/Week Duration of Treatment 12 weeks Plan of Care Start Date 12/24/18 Plan of Care End Date 03/18/19 Therapeutic Interventions Therapeutic Interventions Aquatic Therapy Home Exercise Program Joint Mobilizations Manual Therapy Neuromuscular Re-education Patient/Caregiver Education Soft Tissue Mobilization Therapeutic Exercises Vestibular Rehabilitation Modalities Cold Pack/Ice Massage Electric Stimulation Hot Packs Ultrasound Next Visit Focus/Plan Next Note Type Progress Note Next Visit Plan Manual therapy for decreasing spasm, modalities (US, E-stim) .
--- NOTE | 2018-12-24 17:02 | PT.OPPOC ---
Current Diagnoses Unspecified inflammatory spondylopathy, lumbar region (12/24/18) Provider Visit Care Team Role Provider Type Jhon Taylor MD Family Provider Physician Primary Care Provider Specialty: Internal Medicine Address: [address] [place] [address], [id number] Email: Hay Wagner DO Attending Provider Physician Specialty: Physiatry Pain Management Address: [address] [place] [address], [id number] Email: Plan Of Care PT-OP-T Assessment and Plan Start: 12/21/17 16:51 Freq: Status: Active Protocol: Document 12/24/18 15:15 DCW (Rec: 12/24/18 17:00 DCW [id number]) Physical Therapy Assessment Impairments Impairments Activity Tolerance Balance Pain Posture ROM Soft Tissue Mobility Tone Goals Six Impairment Activity Tolerance Short Term Goal (STG) Pt to report ability to drive for 60 minutes with no increased pain STG Duration 01/24/19 - improving - 20 minutes Chief Of Pediatric Urology Goal (LTG) Pt to report ability to walk down to his barn from the house (100 yards) with no increased pain LTG Duration 02/23/19 - Improving - walk down and shelter back Five Impairment Pain Short Term Goal (STG) Pt to report pain at worst 7/ 10 STG Duration 01/24/19 Chief Of Pediatric Urology Goal (LTG) Pt to report pain at worst 4/ 10 LTG Duration 02/23/19 Four Impairment SLR Chief Of Pediatric Urology Goal (LTG) SLR to 50 degrees without increased pain LTG Duration 02/23/19 Three Impairment Joint Mobility Chief Of Pediatric Urology Goal (LTG) P->A mobility of L1-5 to WNL LTG Duration 02/23/19 - Improving Two Impairment Muscle Tone Residential Goal (LTG) Multifidi, QL, Glute Max, and Piriformis tone to Mild LTG Duration 02/23/19 - Improving, all from severe->mod tone One Impairment Palpation Tenderness Residential Goal (LTG) Low back tenderness to palpation down to 1/5 - Complaint of pain LTG Duration 02/23/19 - Improving - down from 3/4 to 2/4 in all areas Assessment Summary Assessment Pt showing improvement with his lumbar ROM, and is reporting less stiffness and improved posture. Per pt, his physician is happy with the improvement in his low back mobility. Continued therapy indicated for increasing lumbar ROM, decreasing paraspinal tone, and improving pt's performance of ADLs. Physical Therapy Plan Frequency and Duration Frequency of Treatment 2x/Week Duration of Treatment 12 weeks Plan of Care Start Date 12/24/18 Plan of Care End Date 03/18/19 Therapeutic Interventions Therapeutic Interventions Aquatic Therapy Home Exercise Program Joint Mobilizations Manual Therapy Neuromuscular Re-education Patient/Caregiver Education Soft Tissue Mobilization Therapeutic Exercises Vestibular Rehabilitation Modalities Cold Pack/Ice Massage Electric Stimulation Hot Packs Ultrasound Next Visit Focus/Plan Next Note Type Progress Note Next Visit Plan Manual therapy for decreasing spasm, modalities (US, E-stim) . Plan of Care Dates Plan of Care Start Date 12/24/18 Plan of Care End Date 03/18/19 Please Sign and Return: I have reviewed this Plan of Care and certify that the skilled therapy services above are required to meet the patient?s needs. Physician Signature Date Printed Name and Credentials Clinical Instructor Signature Printed Name and Credentials
--- NOTE | 2019-01-07 15:46 | PT.OTN ---
Current Diagnoses Unspecified inflammatory spondylopathy, lumbar region (01/07/19) Physical Therapy Treatment Note PT-OP-A Visit Information Start: 12/21/17 16:51 Freq: Status: Active Protocol: Document 01/07/19 13:45 GGD (Rec: 01/07/19 15:46 GGD [email or web address]) Out-Patient Physical Therapy Visit Information Visit Information Visit Type Treatment Note Visit Start Time 13:45 Visit Stop Time 14:30 Total Visit Minutes 45 Visit Number 50 Number of HIGH SCHOOL SPORTS COACH Visits 1 Evaluation Information Evaluation Date 12/21/17 PT-OP-B Current Condition Start: 12/21/17 16:51 Freq: Status: Active Protocol: Document 03/27/18 14:30 DCW (Rec: 03/27/18 14:43 DCW [id number]) Current Condition Current Functional Impairments (Reported) Functional Limitations- ADL's Pain with standing for 10+ minutes Pain with sitting 30+ minutes Pain disturbs sleep Unable to drive 30+ minutes Functional Limitations- Mobility/Gait Pt reports he must drive from his house to the barn, which is ~100 yards away. 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 Personal Factors Other Personal Factors That May Effect Morbid Obesity, Neuropathy, Therapy/Recovery Phrenic nerve palsy, cervical spinal fusion PT-OP-C Subjective Start: 12/21/17 16:51 Freq: Status: Active Protocol: Document 01/07/19 13:45 GGD (Rec: 01/07/19 15:46 GGD [email or web address]) OP-PT Subjective Patient Comments Patient Comments Pt states that he feel a is very sore. Pain C/S 6/10, L/S 7/10. PT-OP-F Manual Assessment Start: 12/21/17 16:51 Freq: Status: Active Protocol: Document 09/26/18 14:30 DCW (Rec: 09/26/18 15:13 DCW [id number]) Manual Assessments Joint Mobility Assessment Joint Mobility Assessment P->A hypomobility and 2/5 - Pain with Wincing, tenderness in L1-L5 and bilateral SI joints PT-OP-J Posture/Palpation/Skin Start: 12/21/17 16:51 Freq: Status: Active Protocol: Document 12/24/18 15:15 DCW (Rec: 12/24/18 16:00 DCW [id number]) Palpation Assessment Location Four Palpation Location Gluteus Max Palpation Findings Soft Tissue Tightness Spasm Muscle Guarding Tenderness Palpation Details Moderate Tone and Tenderness 2 /5 - Pain with Wincing Three Palpation Location Quadratus Lumborum Palpation Findings Soft Tissue Tightness Spasm Muscle Guarding Tenderness Palpation Details Moderate Tone and Tenderness 2 /5 - Pain with Wincing Two Palpation Location Piriformis Palpation Findings Soft Tissue Tightness Spasm Muscle Guarding Tenderness Palpation Details Moderate Tone and Tenderness 2 /5 - Pain with Wincing One Palpation Location Multifidi Palpation Findings Soft Tissue Tightness Spasm Muscle Guarding Tenderness Palpation Details Moderate Tone and Tenderness 2 /5 - Pain with Wincing PT-OP-K Range of Motion Start: 12/21/17 16:51 Freq: Status: Active Protocol: Document 12/24/18 15:15 DCW (Rec: 12/24/18 16:00 DCW [id number]) Lumbar Spine Range of Motion Lumbar Spine Active Degrees Testing Position Standing Flexion 22 Extension 8 Comments Rotation and Lateral Flexion not tested secondary to pain PT-OP-L Special Tests Start: 12/21/17 16:51 Freq: Status: Active Protocol: Document 12/24/18 15:15 DCW (Rec: 12/24/18 16:00 DCW [id number]) Special Tests Lumbar Spine Special Tests Standing Flexion Test Results Lumbar spine unable to flex more than 15 degrees Prone Knee Flexion Test Results Quad tightness Straight Leg Raise Test Results Severe Bilateral pain at 35 degrees Prone Press Up Test Results Complaints of Pain PT-OP-Q Treatments Start: 12/21/17 16:51 Freq: Status: Active Protocol: Document 01/07/19 13:45 GGD (Rec: 01/07/19 15:46 GGD [id number]) Manual Therapy Treatment Soft Tissue Mobilization 6 Body Location Suboccipitals Mobilization Type Sustained Pressure Body Position Prone 5 Body Location Proximal Gastroc heads, bilateral Mobilization Type Instrument Assisted Myofascial Release Rolling Strumming Sustained Pressure Trigger Point Release Intensity/Depth Moderate Body Position Prone 4 Body Location Lumbar Paravetebral Musculature Mobilization Type Cross-Friction Instrument Assisted Rolling Strumming Sustained Pressure Trigger Point Release Intensity/Depth Moderate Body Position Prone 3 Body Location Piriformis Mobilization Type Myofascial Release 2 Body Location Quadratus Lumborum Mobilization Type Myofascial Release Strumming Sustained Pressure Trigger Point Release Intensity/Depth Deep Body Position Prone 1 Body Location Multifidi Mobilization Type Myofascial Release Strumming Sustained Pressure Trigger Point Release Intensity/Depth Moderate Body Position Prone Joint Mobilizations 1 Joint Lumbar 1-5 Direction P->A Grade III Body Position Prone PT-OP-R Modalities Start: 12/21/17 16:51 Freq: Status: Active Protocol: Document 01/07/19 13:45 GGD (Rec: 01/07/19 15:46 GGD [email or web address]) Ultrasound Therapy Treatment Right Lower Back Treatment Duration (minutes) 5 Patient Position Prone Coupling Medium Ultrasound Gel Frequency Setting (mHz) 1 Mode Setting Continuous Intensity Setting (w/cm2) 1.2 Left Lower Back Treatment Duration (minutes) 5 Patient Position Prone Coupling Medium Ultrasound Gel Frequency Setting (mHz) 1 Mode Setting Continuous Intensity Setting (w/cm2) 1.2 PT-OP-T Assessment and Plan Start: 12/21/17 16:51 Freq: Status: Active Protocol: Document 01/07/19 13:45 GGD (Rec: 01/07/19 15:46 GGD [email or web address]) Physical Therapy Assessment Assessment Summary Assessment Pt had decrease C/O pain with treatment. He had increase in tone in right UT and left QL. Physical Therapy Plan Frequency and Duration Frequency of Treatment 2x/Week Duration of Treatment 12 weeks Plan of Care Start Date 12/24/18 Plan of Care End Date 03/18/19 Next Visit Focus/Plan Next Note Type Treatment Note Next Visit Plan Manual therapy for decreasing spasm, modalities (US, E-stim) .
--- NOTE | 2019-01-14 17:45 | PT.OTN ---
Current Diagnoses Unspecified inflammatory spondylopathy, lumbar region (01/14/19) Physical Therapy Treatment Note PT-OP-A Visit Information Start: 12/21/17 16:51 Freq: Status: Active Protocol: Document 01/14/19 14:40 DCW (Rec: 01/14/19 17:45 DCW [id number]) Out-Patient Physical Therapy Visit Information Visit Information Visit Type Treatment Note Visit Note Pt arrived 10 minutes late Visit Start Time 14:40 Visit Stop Time 15:15 Total Visit Minutes 35 Visit Number 51 Number of YARD SPOTTER Visits 0 Evaluation Information Evaluation Date 12/21/17 PT-OP-B Current Condition Start: 12/21/17 16:51 Freq: Status: Active Protocol: Document 03/27/18 14:30 DCW (Rec: 03/27/18 14:43 DCW [id number]) Current Condition Current Functional Impairments (Reported) Functional Limitations- ADL's Pain with standing for 10+ minutes Pain with sitting 30+ minutes Pain disturbs sleep Unable to drive 30+ minutes Functional Limitations- Mobility/Gait Pt reports he must drive from his house to the barn, which is ~100 yards away. 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 Personal Factors Other Personal Factors That May Effect Morbid Obesity, Neuropathy, Therapy/Recovery Phrenic nerve palsy, cervical spinal fusion PT-OP-C Subjective Start: 12/21/17 16:51 Freq: Status: Active Protocol: Document 01/14/19 14:40 DCW (Rec: 01/14/19 17:45 DCW [id number]) OP-PT Subjective Patient Comments Patient Comments Pt reported he is doing alright, for the most part. PT-OP-F Manual Assessment Start: 12/21/17 16:51 Freq: Status: Active Protocol: Document 09/26/18 14:30 DCW (Rec: 09/26/18 15:13 DCW [id number]) Manual Assessments Joint Mobility Assessment Joint Mobility Assessment P->A hypomobility and 2/5 - Pain with Wincing, tenderness in L1-L5 and bilateral SI joints PT-OP-J Posture/Palpation/Skin Start: 12/21/17 16:51 Freq: Status: Active Protocol: Document 12/24/18 15:15 DCW (Rec: 12/24/18 16:00 DCW [id number]) Palpation Assessment Location Four Palpation Location Gluteus Max Palpation Findings Soft Tissue Tightness Spasm Muscle Guarding Tenderness Palpation Details Moderate Tone and Tenderness 2 /5 - Pain with Wincing Three Palpation Location Quadratus Lumborum Palpation Findings Soft Tissue Tightness Spasm Muscle Guarding Tenderness Palpation Details Moderate Tone and Tenderness 2 /5 - Pain with Wincing Two Palpation Location Piriformis Palpation Findings Soft Tissue Tightness Spasm Muscle Guarding Tenderness Palpation Details Moderate Tone and Tenderness 2 /5 - Pain with Wincing One Palpation Location Multifidi Palpation Findings Soft Tissue Tightness Spasm Muscle Guarding Tenderness Palpation Details Moderate Tone and Tenderness 2 /5 - Pain with Wincing PT-OP-K Range of Motion Start: 12/21/17 16:51 Freq: Status: Active Protocol: Document 12/24/18 15:15 DCW (Rec: 12/24/18 16:00 DCW [id number]) Lumbar Spine Range of Motion Lumbar Spine Active Degrees Testing Position Standing Flexion 22 Extension 8 Comments Rotation and Lateral Flexion not tested secondary to pain PT-OP-L Special Tests Start: 12/21/17 16:51 Freq: Status: Active Protocol: Document 12/24/18 15:15 DCW (Rec: 12/24/18 16:00 DCW [id number]) Special Tests Lumbar Spine Special Tests Standing Flexion Test Results Lumbar spine unable to flex more than 15 degrees Prone Knee Flexion Test Results Quad tightness Straight Leg Raise Test Results Severe Bilateral pain at 35 degrees Prone Press Up Test Results Complaints of Pain PT-OP-Q Treatments Start: 12/21/17 16:51 Freq: Status: Active Protocol: Document 01/14/19 14:40 DCW (Rec: 01/14/19 17:45 DCW [id number]) Manual Therapy Treatment Soft Tissue Mobilization 6 Body Location Suboccipitals Mobilization Type Sustained Pressure Body Position Prone 5 Body Location Proximal Gastroc heads, bilateral Mobilization Type Instrument Assisted Myofascial Release Rolling Strumming Sustained Pressure Trigger Point Release Intensity/Depth Moderate Body Position Prone 4 Body Location Lumbar Paravetebral Musculature Mobilization Type Cross-Friction Instrument Assisted Rolling Strumming Sustained Pressure Trigger Point Release Intensity/Depth Moderate Body Position Prone 3 Body Location Piriformis Mobilization Type Myofascial Release 2 Body Location Quadratus Lumborum Mobilization Type Myofascial Release Strumming Sustained Pressure Trigger Point Release Intensity/Depth Deep Body Position Prone 1 Body Location Multifidi Mobilization Type Myofascial Release Strumming Sustained Pressure Trigger Point Release Intensity/Depth Moderate Body Position Prone Joint Mobilizations 1 Joint Lumbar 1-5 Direction P->A Grade III Body Position Prone PT-OP-R Modalities Start: 12/21/17 16:51 Freq: Status: Active Protocol: Document 01/07/19 13:45 GGD (Rec: 01/07/19 15:46 GGD [id number]) Ultrasound Therapy Treatment Right Lower Back Treatment Duration (minutes) 5 Patient Position Prone Coupling Medium Ultrasound Gel Frequency Setting (mHz) 1 Mode Setting Continuous Intensity Setting (w/cm2) 1.2 Left Lower Back Treatment Duration (minutes) 5 Patient Position Prone Coupling Medium Ultrasound Gel Frequency Setting (mHz) 1 Mode Setting Continuous Intensity Setting (w/cm2) 1.2 PT-OP-T Assessment and Plan Start: 12/21/17 16:51 Freq: Status: Active Protocol: Document 01/14/19 14:40 DCW (Rec: 01/14/19 17:45 DCW [id number]) Physical Therapy Assessment Impairments Impairments Activity Tolerance Balance Pain Posture ROM Soft Tissue Mobility Tone Goals Six Impairment Activity Tolerance Short Term Goal (STG) Pt to report ability to drive for 60 minutes with no increased pain STG Duration 01/24/19 - improving - 20 minutes Emergency Preparedness Manager Goal (LTG) Pt to report ability to walk down to his barn from the house (100 yards) with no increased pain LTG Duration 02/23/19 - Improving - walk down and assisted back Five Impairment Pain Short Term Goal (STG) Pt to report pain at worst 7/ 10 STG Duration 01/24/19 Emergency Preparedness Manager Goal (LTG) Pt to report pain at worst 4/ 10 LTG Duration 02/23/19 Four Impairment SLR Residential Goal (LTG) SLR to 50 degrees without increased pain LTG Duration 02/23/19 Three Impairment Joint Mobility Residential Goal (LTG) P->A mobility of L1-5 to WNL LTG Duration 02/23/19 - Improving Two Impairment Muscle Tone Emergency Preparedness Manager Goal (LTG) Multifidi, QL, Glute Max, and Piriformis tone to Mild LTG Duration 02/23/19 - Improving, all from severe->mod tone One Impairment Palpation Tenderness Residential Goal (LTG) Low back tenderness to palpation down to 1/5 - Complaint of pain LTG Duration 02/23/19 - Improving - down from 3/4 to 2/4 in all areas Assessment Summary Assessment Pt felt much better following treatment, determined his lumbar spine felt like it loosened up quite a bit. Physical Therapy Plan Frequency and Duration Frequency of Treatment 2x/Week Duration of Treatment 12 weeks Plan of Care Start Date 12/24/18 Plan of Care End Date 03/18/19 Therapeutic Interventions Therapeutic Interventions Aquatic Therapy Home Exercise Program Joint Mobilizations Manual Therapy Neuromuscular Re-education Patient/Caregiver Education Soft Tissue Mobilization Therapeutic Exercises Vestibular Rehabilitation Modalities Cold Pack/Ice Massage Electric Stimulation Hot Packs Ultrasound Next Visit Focus/Plan Next Note Type Treatment Note Next Visit Plan Manual therapy for decreasing spasm, modalities (US, E-stim) .
--- NOTE | 2019-01-21 16:54 | PT.OTN ---
Current Diagnoses Unspecified inflammatory spondylopathy, lumbar region (01/21/19) Physical Therapy Treatment Note PT-OP-A Visit Information Start: 12/21/17 16:51 Freq: Status: Active Protocol: Document 01/21/19 14:30 DCW (Rec: 01/21/19 16:54 DCW [id number]) Out-Patient Physical Therapy Visit Information Visit Information Visit Type Treatment Note Visit Start Time 14:30 Visit Stop Time 15:15 Total Visit Minutes 45 Visit Number 52 Number of PHP LAMP DEVELOPER Visits 0 Evaluation Information Evaluation Date 12/21/17 PT-OP-B Current Condition Start: 12/21/17 16:51 Freq: Status: Active Protocol: Document 03/27/18 14:30 DCW (Rec: 03/27/18 14:43 DCW [id number]) Current Condition Current Functional Impairments (Reported) Functional Limitations- ADL's Pain with standing for 10+ minutes Pain with sitting 30+ minutes Pain disturbs sleep Unable to drive 30+ minutes Functional Limitations- Mobility/Gait Pt reports he must drive from his house to the barn, which is ~100 yards away. 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 Personal Factors Other Personal Factors That May Effect Morbid Obesity, Neuropathy, Therapy/Recovery Phrenic nerve palsy, cervical spinal fusion PT-OP-C Subjective Start: 12/21/17 16:51 Freq: Status: Active Protocol: Document 01/21/19 14:30 DCW (Rec: 01/21/19 16:54 DCW [id number]) OP-PT Subjective Patient Comments Patient Comments Pt reports feeling very tight today PT-OP-F Manual Assessment Start: 12/21/17 16:51 Freq: Status: Active Protocol: Document 09/26/18 14:30 DCW (Rec: 09/26/18 15:13 DCW [id number]) Manual Assessments Joint Mobility Assessment Joint Mobility Assessment P->A hypomobility and 2/5 - Pain with Wincing, tenderness in L1-L5 and bilateral SI joints PT-OP-J Posture/Palpation/Skin Start: 12/21/17 16:51 Freq: Status: Active Protocol: Document 12/24/18 15:15 DCW (Rec: 12/24/18 16:00 DCW [id number]) Palpation Assessment Location Four Palpation Location Gluteus Max Palpation Findings Soft Tissue Tightness Spasm Muscle Guarding Tenderness Palpation Details Moderate Tone and Tenderness 2 /5 - Pain with Wincing Three Palpation Location Quadratus Lumborum Palpation Findings Soft Tissue Tightness Spasm Muscle Guarding Tenderness Palpation Details Moderate Tone and Tenderness 2 /5 - Pain with Wincing Two Palpation Location Piriformis Palpation Findings Soft Tissue Tightness Spasm Muscle Guarding Tenderness Palpation Details Moderate Tone and Tenderness 2 /5 - Pain with Wincing One Palpation Location Multifidi Palpation Findings Soft Tissue Tightness Spasm Muscle Guarding Tenderness Palpation Details Moderate Tone and Tenderness 2 /5 - Pain with Wincing PT-OP-K Range of Motion Start: 12/21/17 16:51 Freq: Status: Active Protocol: Document 12/24/18 15:15 DCW (Rec: 12/24/18 16:00 DCW [id number]) Lumbar Spine Range of Motion Lumbar Spine Active Degrees Testing Position Standing Flexion 22 Extension 8 Comments Rotation and Lateral Flexion not tested secondary to pain PT-OP-L Special Tests Start: 12/21/17 16:51 Freq: Status: Active Protocol: Document 12/24/18 15:15 DCW (Rec: 12/24/18 16:00 DCW [id number]) Special Tests Lumbar Spine Special Tests Standing Flexion Test Results Lumbar spine unable to flex more than 15 degrees Prone Knee Flexion Test Results Quad tightness Straight Leg Raise Test Results Severe Bilateral pain at 35 degrees Prone Press Up Test Results Complaints of Pain PT-OP-Q Treatments Start: 12/21/17 16:51 Freq: Status: Active Protocol: Document 01/21/19 14:30 DCW (Rec: 01/21/19 16:54 DCW [id number]) Manual Therapy Treatment Soft Tissue Mobilization 6 Body Location Suboccipitals Mobilization Type Sustained Pressure Body Position Prone 5 Body Location Proximal Gastroc heads, bilateral Mobilization Type Instrument Assisted Myofascial Release Rolling Strumming Sustained Pressure Trigger Point Release Intensity/Depth Moderate Body Position Prone 4 Body Location Lumbar Paravetebral Musculature Mobilization Type Cross-Friction Instrument Assisted Rolling Strumming Sustained Pressure Trigger Point Release Intensity/Depth Moderate Body Position Prone 3 Body Location Piriformis Mobilization Type Myofascial Release 2 Body Location Quadratus Lumborum Mobilization Type Myofascial Release Strumming Sustained Pressure Trigger Point Release Intensity/Depth Deep Body Position Prone 1 Body Location Multifidi Mobilization Type Myofascial Release Strumming Sustained Pressure Trigger Point Release Intensity/Depth Moderate Body Position Prone Joint Mobilizations 1 Joint Lumbar 1-5 Direction P->A Grade III Body Position Prone PT-OP-R Modalities Start: 12/21/17 16:51 Freq: Status: Active Protocol: Document 01/21/19 14:30 DCW (Rec: 01/21/19 16:54 DCW [id number]) Ultrasound Therapy Treatment Right Lower Back Treatment Duration (minutes) 5 Patient Position Prone Coupling Medium Ultrasound Gel Frequency Setting (mHz) 1 Mode Setting Continuous Intensity Setting (w/cm2) 1.2 Left Lower Back Treatment Duration (minutes) 5 Patient Position Prone Coupling Medium Ultrasound Gel Frequency Setting (mHz) 1 Mode Setting Continuous Intensity Setting (w/cm2) 1.2 PT-OP-T Assessment and Plan Start: 12/21/17 16:51 Freq: Status: Active Protocol: Document 01/21/19 14:30 DCW (Rec: 01/21/19 16:54 DCW [id number]) Physical Therapy Assessment Impairments Impairments Activity Tolerance Balance Pain Posture ROM Soft Tissue Mobility Tone Goals Six Impairment Activity Tolerance Short Term Goal (STG) Pt to report ability to drive for 60 minutes with no increased pain STG Duration 01/24/19 - improving - 20 minutes Insurance Coder Goal (LTG) Pt to report ability to walk down to his barn from the house (100 yards) with no increased pain LTG Duration 02/23/19 - Improving - walk down and usp back Five Impairment Pain Short Term Goal (STG) Pt to report pain at worst 7/ 10 STG Duration 01/24/19 Halfway Goal (LTG) Pt to report pain at worst 4/ 10 LTG Duration 02/23/19 Four Impairment SLR Halfway Goal (LTG) SLR to 50 degrees without increased pain LTG Duration 02/23/19 Three Impairment Joint Mobility Halfway Goal (LTG) P->A mobility of L1-5 to WNL LTG Duration 02/23/19 - Improving Two Impairment Muscle Tone Insurance Coder Goal (LTG) Multifidi, QL, Glute Max, and Piriformis tone to Mild LTG Duration 02/23/19 - Improving, all from severe->mod tone One Impairment Palpation Tenderness Insurance Coder Goal (LTG) Low back tenderness to palpation down to 1/5 - Complaint of pain LTG Duration 02/23/19 - Improving - down from 3/4 to 2/4 in all areas Assessment Summary Assessment Pt tolerated treatment well, his right calf is doing much better today, still increased tone through his left calf. Physical Therapy Plan Frequency and Duration Frequency of Treatment 2x/Week Duration of Treatment 12 weeks Plan of Care Start Date 12/24/18 Plan of Care End Date 03/18/19 Therapeutic Interventions Therapeutic Interventions Aquatic Therapy Home Exercise Program Joint Mobilizations Manual Therapy Neuromuscular Re-education Patient/Caregiver Education Soft Tissue Mobilization Therapeutic Exercises Vestibular Rehabilitation Modalities Cold Pack/Ice Massage Electric Stimulation Hot Packs Ultrasound Next Visit Focus/Plan Next Note Type Treatment Note Next Visit Plan Manual therapy for decreasing spasm, modalities (US, E-stim) .
--- NOTE | 2019-01-28 15:16 | PT.OTN ---
Current Diagnoses Unspecified inflammatory spondylopathy, lumbar region (01/28/19) Physical Therapy Treatment Note PT-OP-A Visit Information Start: 12/21/17 16:51 Freq: Status: Active Protocol: Document 01/28/19 14:30 DCW (Rec: 01/28/19 15:16 DCW [id number]) Out-Patient Physical Therapy Visit Information Visit Information Visit Type Treatment Note Visit Start Time 14:30 Visit Stop Time 15:15 Total Visit Minutes 45 Visit Number 53 Number of COTTON BROKER Visits 0 Evaluation Information Evaluation Date 12/21/17 PT-OP-B Current Condition Start: 12/21/17 16:51 Freq: Status: Active Protocol: Document 03/27/18 14:30 DCW (Rec: 03/27/18 14:43 DCW [id number]) Current Condition Current Functional Impairments (Reported) Functional Limitations- ADL's Pain with standing for 10+ minutes Pain with sitting 30+ minutes Pain disturbs sleep Unable to drive 30+ minutes Functional Limitations- Mobility/Gait Pt reports he must drive from his house to the barn, which is ~100 yards away. 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 Personal Factors Other Personal Factors That May Effect Morbid Obesity, Neuropathy, Therapy/Recovery Phrenic nerve palsy, cervical spinal fusion PT-OP-C Subjective Start: 12/21/17 16:51 Freq: Status: Active Protocol: Document 01/28/19 14:30 DCW (Rec: 01/28/19 15:16 DCW [id number]) OP-PT Subjective Patient Comments Patient Comments Pt a little tight today, but overall loosening up. PT-OP-F Manual Assessment Start: 12/21/17 16:51 Freq: Status: Active Protocol: Document 09/26/18 14:30 DCW (Rec: 09/26/18 15:13 DCW [id number]) Manual Assessments Joint Mobility Assessment Joint Mobility Assessment P->A hypomobility and 2/5 - Pain with Wincing, tenderness in L1-L5 and bilateral SI joints PT-OP-J Posture/Palpation/Skin Start: 12/21/17 16:51 Freq: Status: Active Protocol: Document 12/24/18 15:15 DCW (Rec: 12/24/18 16:00 DCW [id number]) Palpation Assessment Location Four Palpation Location Gluteus Max Palpation Findings Soft Tissue Tightness Spasm Muscle Guarding Tenderness Palpation Details Moderate Tone and Tenderness 2 /5 - Pain with Wincing Three Palpation Location Quadratus Lumborum Palpation Findings Soft Tissue Tightness Spasm Muscle Guarding Tenderness Palpation Details Moderate Tone and Tenderness 2 /5 - Pain with Wincing Two Palpation Location Piriformis Palpation Findings Soft Tissue Tightness Spasm Muscle Guarding Tenderness Palpation Details Moderate Tone and Tenderness 2 /5 - Pain with Wincing One Palpation Location Multifidi Palpation Findings Soft Tissue Tightness Spasm Muscle Guarding Tenderness Palpation Details Moderate Tone and Tenderness 2 /5 - Pain with Wincing PT-OP-K Range of Motion Start: 12/21/17 16:51 Freq: Status: Active Protocol: Document 12/24/18 15:15 DCW (Rec: 12/24/18 16:00 DCW [id number]) Lumbar Spine Range of Motion Lumbar Spine Active Degrees Testing Position Standing Flexion 22 Extension 8 Comments Rotation and Lateral Flexion not tested secondary to pain PT-OP-L Special Tests Start: 12/21/17 16:51 Freq: Status: Active Protocol: Document 12/24/18 15:15 DCW (Rec: 12/24/18 16:00 DCW [id number]) Special Tests Lumbar Spine Special Tests Standing Flexion Test Results Lumbar spine unable to flex more than 15 degrees Prone Knee Flexion Test Results Quad tightness Straight Leg Raise Test Results Severe Bilateral pain at 35 degrees Prone Press Up Test Results Complaints of Pain PT-OP-Q Treatments Start: 12/21/17 16:51 Freq: Status: Active Protocol: Document 01/28/19 14:30 DCW (Rec: 01/28/19 15:16 DCW [id number]) Manual Therapy Treatment Soft Tissue Mobilization 6 Body Location Suboccipitals Mobilization Type Sustained Pressure Body Position Prone 5 Body Location Proximal Gastroc heads, bilateral Mobilization Type Instrument Assisted Myofascial Release Rolling Strumming Sustained Pressure Trigger Point Release Intensity/Depth Moderate Body Position Prone 4 Body Location Lumbar Paravetebral Musculature Mobilization Type Cross-Friction Instrument Assisted Rolling Strumming Sustained Pressure Trigger Point Release Intensity/Depth Moderate Body Position Prone 3 Body Location Piriformis Mobilization Type Myofascial Release 2 Body Location Quadratus Lumborum Mobilization Type Myofascial Release Strumming Sustained Pressure Trigger Point Release Intensity/Depth Deep Body Position Prone 1 Body Location Multifidi Mobilization Type Myofascial Release Strumming Sustained Pressure Trigger Point Release Intensity/Depth Moderate Body Position Prone Joint Mobilizations 1 Joint Lumbar 1-5 Direction P->A Grade III Body Position Prone PT-OP-R Modalities Start: 12/21/17 16:51 Freq: Status: Active Protocol: Document 01/28/19 14:30 DCW (Rec: 01/28/19 15:16 DCW [id number]) Ultrasound Therapy Treatment Right Lower Back Treatment Duration (minutes) 5 Patient Position Prone Coupling Medium Ultrasound Gel Frequency Setting (mHz) 1 Mode Setting Continuous Intensity Setting (w/cm2) 1.2 Left Lower Back Treatment Duration (minutes) 5 Patient Position Prone Coupling Medium Ultrasound Gel Frequency Setting (mHz) 1 Mode Setting Continuous Intensity Setting (w/cm2) 1.2 PT-OP-T Assessment and Plan Start: 12/21/17 16:51 Freq: Status: Active Protocol: Document 01/28/19 14:30 DCW (Rec: 01/28/19 15:16 DCW [id number]) Physical Therapy Assessment Impairments Impairments Activity Tolerance Balance Pain Posture ROM Soft Tissue Mobility Tone Goals Six Impairment Activity Tolerance Short Term Goal (STG) Pt to report ability to drive for 60 minutes with no increased pain STG Duration 01/24/19 - improving - 20 minutes Coil Spring Assembler Goal (LTG) Pt to report ability to walk down to his barn from the house (100 yards) with no increased pain LTG Duration 02/23/19 - Improving - walk down and shelter back Five Impairment Pain Short Term Goal (STG) Pt to report pain at worst 7/ 10 STG Duration 01/24/19 Coil Spring Assembler Goal (LTG) Pt to report pain at worst 4/ 10 LTG Duration 02/23/19 Four Impairment SLR Coil Spring Assembler Goal (LTG) SLR to 50 degrees without increased pain LTG Duration 02/23/19 Three Impairment Joint Mobility Alf Goal (LTG) P->A mobility of L1-5 to WNL LTG Duration 02/23/19 - Improving Two Impairment Muscle Tone Coil Spring Assembler Goal (LTG) Multifidi, QL, Glute Max, and Piriformis tone to Mild LTG Duration 02/23/19 - Improving, all from severe->mod tone One Impairment Palpation Tenderness Coil Spring Assembler Goal (LTG) Low back tenderness to palpation down to 1/5 - Complaint of pain LTG Duration 02/23/19 - Improving - down from 3/4 to 2/4 in all areas Assessment Summary Assessment Pt improving well, having more mobility throughout his low back. Physical Therapy Plan Frequency and Duration Frequency of Treatment 2x/Week Duration of Treatment 12 weeks Plan of Care Start Date 12/24/18 Plan of Care End Date 03/18/19 Therapeutic Interventions Therapeutic Interventions Aquatic Therapy Home Exercise Program Joint Mobilizations Manual Therapy Neuromuscular Re-education Patient/Caregiver Education Soft Tissue Mobilization Therapeutic Exercises Vestibular Rehabilitation Modalities Cold Pack/Ice Massage Electric Stimulation Hot Packs Ultrasound Next Visit Focus/Plan Next Note Type Treatment Note Next Visit Plan Manual therapy for decreasing spasm, modalities (US, E-stim) .
--- NOTE | 2019-02-04 17:24 | PT.OTN ---
Current Diagnoses Unspecified inflammatory spondylopathy, lumbar region (02/04/19) Physical Therapy Treatment Note PT-OP-A Visit Information Start: 12/21/17 16:51 Freq: Status: Active Protocol: Document 02/04/19 16:45 DCW (Rec: 02/04/19 17:24 DCW [id number]) Out-Patient Physical Therapy Visit Information Visit Information Visit Type Treatment Note Visit Start Time 16:45 Visit Stop Time 17:15 Total Visit Minutes 30 Visit Number 54 Number of CORE BLOWER Visits 0 Evaluation Information Evaluation Date 12/21/17 PT-OP-B Current Condition Start: 12/21/17 16:51 Freq: Status: Active Protocol: Document 03/27/18 14:30 DCW (Rec: 03/27/18 14:43 DCW [id number]) Current Condition Current Functional Impairments (Reported) Functional Limitations- ADL's Pain with standing for 10+ minutes Pain with sitting 30+ minutes Pain disturbs sleep Unable to drive 30+ minutes Functional Limitations- Mobility/Gait Pt reports he must drive from his house to the barn, which is ~100 yards away. 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 Personal Factors Other Personal Factors That May Effect Morbid Obesity, Neuropathy, Therapy/Recovery Phrenic nerve palsy, cervical spinal fusion PT-OP-C Subjective Start: 12/21/17 16:51 Freq: Status: Active Protocol: Document 02/04/19 16:45 DCW (Rec: 02/04/19 17:24 DCW [id number]) OP-PT Subjective Patient Comments Patient Comments Pt comes in today in severe pain after moving a very heavy organ into his house. PT-OP-F Manual Assessment Start: 12/21/17 16:51 Freq: Status: Active Protocol: Document 09/26/18 14:30 DCW (Rec: 09/26/18 15:13 DCW [id number]) Manual Assessments Joint Mobility Assessment Joint Mobility Assessment P->A hypomobility and 2/5 - Pain with Wincing, tenderness in L1-L5 and bilateral SI joints PT-OP-J Posture/Palpation/Skin Start: 12/21/17 16:51 Freq: Status: Active Protocol: Document 12/24/18 15:15 DCW (Rec: 12/24/18 16:00 DCW [id number]) Palpation Assessment Location Four Palpation Location Gluteus Max Palpation Findings Soft Tissue Tightness Spasm Muscle Guarding Tenderness Palpation Details Moderate Tone and Tenderness 2 /5 - Pain with Wincing Three Palpation Location Quadratus Lumborum Palpation Findings Soft Tissue Tightness Spasm Muscle Guarding Tenderness Palpation Details Moderate Tone and Tenderness 2 /5 - Pain with Wincing Two Palpation Location Piriformis Palpation Findings Soft Tissue Tightness Spasm Muscle Guarding Tenderness Palpation Details Moderate Tone and Tenderness 2 /5 - Pain with Wincing One Palpation Location Multifidi Palpation Findings Soft Tissue Tightness Spasm Muscle Guarding Tenderness Palpation Details Moderate Tone and Tenderness 2 /5 - Pain with Wincing PT-OP-K Range of Motion Start: 12/21/17 16:51 Freq: Status: Active Protocol: Document 12/24/18 15:15 DCW (Rec: 12/24/18 16:00 DCW [id number]) Lumbar Spine Range of Motion Lumbar Spine Active Degrees Testing Position Standing Flexion 22 Extension 8 Comments Rotation and Lateral Flexion not tested secondary to pain PT-OP-L Special Tests Start: 12/21/17 16:51 Freq: Status: Active Protocol: Document 12/24/18 15:15 DCW (Rec: 12/24/18 16:00 DCW [id number]) Special Tests Lumbar Spine Special Tests Standing Flexion Test Results Lumbar spine unable to flex more than 15 degrees Prone Knee Flexion Test Results Quad tightness Straight Leg Raise Test Results Severe Bilateral pain at 35 degrees Prone Press Up Test Results Complaints of Pain PT-OP-Q Treatments Start: 12/21/17 16:51 Freq: Status: Active Protocol: Document 02/04/19 16:45 DCW (Rec: 02/04/19 17:24 DCW [id number]) Manual Therapy Treatment Soft Tissue Mobilization 6 Body Location Suboccipitals Mobilization Type Sustained Pressure Body Position Prone 5 Body Location Proximal Gastroc heads, bilateral Mobilization Type Instrument Assisted Myofascial Release Rolling Strumming Sustained Pressure Trigger Point Release Intensity/Depth Moderate Body Position Prone 4 Body Location Lumbar Paravetebral Musculature Mobilization Type Cross-Friction Instrument Assisted Rolling Strumming Sustained Pressure Trigger Point Release Intensity/Depth Moderate Body Position Prone 3 Body Location Piriformis Mobilization Type Myofascial Release 2 Body Location Quadratus Lumborum Mobilization Type Myofascial Release Strumming Sustained Pressure Trigger Point Release Intensity/Depth Deep Body Position Prone 1 Body Location Multifidi Mobilization Type Myofascial Release Strumming Sustained Pressure Trigger Point Release Intensity/Depth Moderate Body Position Prone Joint Mobilizations 1 Joint Lumbar 1-5 Direction P->A Grade III Body Position Prone PT-OP-R Modalities Start: 12/21/17 16:51 Freq: Status: Active Protocol: Document 01/28/19 14:30 DCW (Rec: 01/28/19 15:16 DCW [id number]) Ultrasound Therapy Treatment Right Lower Back Treatment Duration (minutes) 5 Patient Position Prone Coupling Medium Ultrasound Gel Frequency Setting (mHz) 1 Mode Setting Continuous Intensity Setting (w/cm2) 1.2 Left Lower Back Treatment Duration (minutes) 5 Patient Position Prone Coupling Medium Ultrasound Gel Frequency Setting (mHz) 1 Mode Setting Continuous Intensity Setting (w/cm2) 1.2 PT-OP-T Assessment and Plan Start: 12/21/17 16:51 Freq: Status: Active Protocol: Document 02/04/19 16:45 DCW (Rec: 02/04/19 17:24 DCW [id number]) Physical Therapy Assessment Impairments Impairments Activity Tolerance Balance Pain Posture ROM Soft Tissue Mobility Tone Goals Six Impairment Activity Tolerance Short Term Goal (STG) Pt to report ability to drive for 60 minutes with no increased pain STG Duration 01/24/19 - improving - 20 minutes Customer Expert Goal (LTG) Pt to report ability to walk down to his barn from the house (100 yards) with no increased pain LTG Duration 02/23/19 - Improving - walk down and group home back Five Impairment Pain Short Term Goal (STG) Pt to report pain at worst 7/ 10 STG Duration 01/24/19 Retirement Goal (LTG) Pt to report pain at worst 4/ 10 LTG Duration 02/23/19 Four Impairment SLR Retirement Goal (LTG) SLR to 50 degrees without increased pain LTG Duration 02/23/19 Three Impairment Joint Mobility Retirement Goal (LTG) P->A mobility of L1-5 to WNL LTG Duration 02/23/19 - Improving Two Impairment Muscle Tone Customer Expert Goal (LTG) Multifidi, QL, Glute Max, and Piriformis tone to Mild LTG Duration 02/23/19/ - Improving, all from severe->mod tone One Impairment Palpation Tenderness Customer Expert Goal (LTG) Low back tenderness to palpation down to 1/5 - Complaint of pain LTG Duration 02/23/19 - Improving - down from 3/4 to 2/4 in all areas Assessment Summary Assessment Pt had significantly increased tone in low and mid-back paraspinals today, increased tenderness with palpation and difficulty moving around secondary to pain. Pt did appear to be able to stand up straighter and ambulate with less wincing following his PT session. Physical Therapy Plan Frequency and Duration Frequency of Treatment 2x/Week Duration of Treatment 12 weeks Plan of Care Start Date 12/24/18 Plan of Care End Date 03/18/19 Therapeutic Interventions Therapeutic Interventions Aquatic Therapy Home Exercise Program Joint Mobilizations Manual Therapy Neuromuscular Re-education Patient/Caregiver Education Soft Tissue Mobilization Therapeutic Exercises Vestibular Rehabilitation Modalities Cold Pack/Ice Massage Electric Stimulation Hot Packs Ultrasound Next Visit Focus/Plan Next Note Type Treatment Note Next Visit Plan Manual therapy for decreasing spasm, modalities (US, E-stim) .
--- NOTE | 2019-02-11 16:46 | PT.OTN ---
Current Diagnoses Unspecified inflammatory spondylopathy, lumbar region (02/11/19) Physical Therapy Treatment Note PT-OP-A Visit Information Start: 12/21/17 16:51 Freq: Status: Active Protocol: Document 02/11/19 16:00 DCW (Rec: 02/11/19 16:45 DCW [id number]) Out-Patient Physical Therapy Visit Information Visit Information Visit Type Treatment Note Visit Start Time 16:00 Visit Stop Time 16:45 Total Visit Minutes 45 Visit Number 55 Number of ROLL FORMING MACHINE SET UP OPERATOR Visits 0 Evaluation Information Evaluation Date 12/21/17 PT-OP-B Current Condition Start: 12/21/17 16:51 Freq: Status: Active Protocol: Document 03/27/18 14:30 DCW (Rec: 03/27/18 14:43 DCW [id number]) Current Condition Current Functional Impairments (Reported) Functional Limitations- ADL's Pain with standing for 10+ minutes Pain with sitting 30+ minutes Pain disturbs sleep Unable to drive 30+ minutes Functional Limitations- Mobility/Gait Pt reports he must drive from his house to the barn, which is ~100 yards away. 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 Personal Factors Other Personal Factors That May Effect Morbid Obesity, Neuropathy, Therapy/Recovery Phrenic nerve palsy, cervical spinal fusion PT-OP-C Subjective Start: 12/21/17 16:51 Freq: Status: Active Protocol: Document 02/11/19 16:00 DCW (Rec: 02/11/19 16:45 DCW [id number]) OP-PT Subjective Patient Comments Patient Comments Pt feeling less tone overall than last week. PT-OP-F Manual Assessment Start: 12/21/17 16:51 Freq: Status: Active Protocol: Document 09/26/18 14:30 DCW (Rec: 09/26/18 15:13 DCW [id number]) Manual Assessments Joint Mobility Assessment Joint Mobility Assessment P->A hypomobility and 2/5 - Pain with Wincing, tenderness in L1-L5 and bilateral SI joints PT-OP-J Posture/Palpation/Skin Start: 12/21/17 16:51 Freq: Status: Active Protocol: Document 12/24/18 15:15 DCW (Rec: 12/24/18 16:00 DCW [id number]) Palpation Assessment Location Four Palpation Location Gluteus Max Palpation Findings Soft Tissue Tightness Spasm Muscle Guarding Tenderness Palpation Details Moderate Tone and Tenderness 2 /5 - Pain with Wincing Three Palpation Location Quadratus Lumborum Palpation Findings Soft Tissue Tightness Spasm Muscle Guarding Tenderness Palpation Details Moderate Tone and Tenderness 2 /5 - Pain with Wincing Two Palpation Location Piriformis Palpation Findings Soft Tissue Tightness Spasm Muscle Guarding Tenderness Palpation Details Moderate Tone and Tenderness 2 /5 - Pain with Wincing One Palpation Location Multifidi Palpation Findings Soft Tissue Tightness Spasm Muscle Guarding Tenderness Palpation Details Moderate Tone and Tenderness 2 /5 - Pain with Wincing PT-OP-K Range of Motion Start: 12/21/17 16:51 Freq: Status: Active Protocol: Document 12/24/18 15:15 DCW (Rec: 12/24/18 16:00 DCW [id number]) Lumbar Spine Range of Motion Lumbar Spine Active Degrees Testing Position Standing Flexion 22 Extension 8 Comments Rotation and Lateral Flexion not tested secondary to pain PT-OP-L Special Tests Start: 12/21/17 16:51 Freq: Status: Active Protocol: Document 12/24/18 15:15 DCW (Rec: 12/24/18 16:00 DCW [id number]) Special Tests Lumbar Spine Special Tests Standing Flexion Test Results Lumbar spine unable to flex more than 15 degrees Prone Knee Flexion Test Results Quad tightness Straight Leg Raise Test Results Severe Bilateral pain at 35 degrees Prone Press Up Test Results Complaints of Pain PT-OP-Q Treatments Start: 12/21/17 16:51 Freq: Status: Active Protocol: Document 02/11/19 16:00 DCW (Rec: 02/11/19 16:45 DCW [id number]) Manual Therapy Treatment Soft Tissue Mobilization 6 Body Location Suboccipitals Mobilization Type Sustained Pressure Body Position Prone 5 Body Location Proximal Gastroc heads, bilateral Mobilization Type Instrument Assisted Myofascial Release Rolling Strumming Sustained Pressure Trigger Point Release Intensity/Depth Moderate Body Position Prone 4 Body Location Lumbar Paravetebral Musculature Mobilization Type Cross-Friction Instrument Assisted Rolling Strumming Sustained Pressure Trigger Point Release Intensity/Depth Moderate Body Position Prone 3 Body Location Piriformis Mobilization Type Myofascial Release 2 Body Location Quadratus Lumborum Mobilization Type Myofascial Release Strumming Sustained Pressure Trigger Point Release Intensity/Depth Deep Body Position Prone 1 Body Location Multifidi Mobilization Type Myofascial Release Strumming Sustained Pressure Trigger Point Release Intensity/Depth Moderate Body Position Prone Joint Mobilizations 1 Joint Lumbar 1-5 Direction P->A Grade III Body Position Prone PT-OP-R Modalities Start: 12/21/17 16:51 Freq: Status: Active Protocol: Document 02/11/19 16:00 DCW (Rec: 02/11/19 16:46 DCW [id number]) Ultrasound Therapy Treatment Right Lower Back Treatment Duration (minutes) 5 Patient Position Prone Coupling Medium Ultrasound Gel Frequency Setting (mHz) 1 Mode Setting Continuous Intensity Setting (w/cm2) 1.2 Left Lower Back Treatment Duration (minutes) 5 Patient Position Prone Coupling Medium Ultrasound Gel Frequency Setting (mHz) 1 Mode Setting Continuous Intensity Setting (w/cm2) 1.2 PT-OP-T Assessment and Plan Start: 12/21/17 16:51 Freq: Status: Active Protocol: Document 02/11/19 16:00 DCW (Rec: 02/11/19 16:45 DCW [id number]) Physical Therapy Assessment Impairments Impairments Activity Tolerance Balance Pain Posture ROM Soft Tissue Mobility Tone Goals Six Impairment Activity Tolerance Short Term Goal (STG) Pt to report ability to drive for 60 minutes with no increased pain STG Duration 01/24/19 - improving - 20 minutes Retirement Goal (LTG) Pt to report ability to walk down to his barn from the house (100 yards) with no increased pain LTG Duration 02/23/19 - Improving - walk down and [facility] back Five Impairment Pain Short Term Goal (STG) Pt to report pain at worst 7/ 10 STG Duration 01/24/19 Retirement Goal (LTG) Pt to report pain at worst 4/ 10 LTG Duration 02/23/19 Four Impairment SLR Retirement Goal (LTG) SLR to 50 degrees without increased pain LTG Duration 02/23/19 Three Impairment Joint Mobility Re Recording Mixer Goal (LTG) P->A mobility of L1-5 to WNL LTG Duration 02/23/19 - Improving Two Impairment Muscle Tone Re Recording Mixer Goal (LTG) Multifidi, QL, Glute Max, and Piriformis tone to Mild LTG Duration 02/23/19 - Improving, all from severe->mod tone One Impairment Palpation Tenderness Retirement Goal (LTG) Low back tenderness to palpation down to 1/5 - Complaint of pain LTG Duration 02/23/19 - Improving - down from 3/4 to 2/4 in all areas Assessment Summary Assessment Pt presenting with improved pain and tone today following last week's set-back. Physical Therapy Plan Frequency and Duration Frequency of Treatment 2x/Week Duration of Treatment 12 weeks Plan of Care Start Date 12/24/18 Plan of Care End Date 03/18/19 Therapeutic Interventions Therapeutic Interventions Aquatic Therapy Home Exercise Program Joint Mobilizations Manual Therapy Neuromuscular Re-education Patient/Caregiver Education Soft Tissue Mobilization Therapeutic Exercises Vestibular Rehabilitation Modalities Cold Pack/Ice Massage Electric Stimulation Hot Packs Ultrasound Next Visit Focus/Plan Next Note Type Treatment Note Next Visit Plan Manual therapy for decreasing spasm, modalities (US, E-stim) .
--- NOTE | 2019-02-18 16:07 | PT.OTN ---
Current Diagnoses Unspecified inflammatory spondylopathy, lumbar region (02/18/19) Physical Therapy Treatment Note PT-OP-A Visit Information Start: 12/21/17 16:51 Freq: Status: Active Protocol: Document 02/18/19 15:15 DCW (Rec: 02/18/19 16:07 DCW [id number]) Out-Patient Physical Therapy Visit Information Visit Information Visit Type Treatment Note Visit Start Time 15:15 Visit Stop Time 16:00 Total Visit Minutes 45 Visit Number 56 Number of VENDING ATTENDANT Visits 0 Evaluation Information Evaluation Date 12/21/17 PT-OP-B Current Condition Start: 12/21/17 16:51 Freq: Status: Active Protocol: Document 03/27/18 14:30 DCW (Rec: 03/27/18 14:43 DCW [id number]) Current Condition Current Functional Impairments (Reported) Functional Limitations- ADL's Pain with standing for 10+ minutes Pain with sitting 30+ minutes Pain disturbs sleep Unable to drive 30+ minutes Functional Limitations- Mobility/Gait Pt reports he must drive from his house to the barn, which is ~100 yards away. 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 Personal Factors Other Personal Factors That May Effect Morbid Obesity, Neuropathy, Therapy/Recovery Phrenic nerve palsy, cervical spinal fusion PT-OP-C Subjective Start: 12/21/17 16:51 Freq: Status: Active Protocol: Document 02/18/19 15:15 DCW (Rec: 02/18/19 16:07 DCW [id number]) OP-PT Subjective Patient Comments Patient Comments Pt notes he is sorer than hell following pulmonary therapy Sunday. PT-OP-F Manual Assessment Start: 12/21/17 16:51 Freq: Status: Active Protocol: Document 09/26/18 14:30 DCW (Rec: 09/26/18 15:13 DCW [id number]) Manual Assessments Joint Mobility Assessment Joint Mobility Assessment P->A hypomobility and 2/5 - Pain with Wincing, tenderness in L1-L5 and bilateral SI joints PT-OP-J Posture/Palpation/Skin Start: 12/21/17 16:51 Freq: Status: Active Protocol: Document 12/24/18 15:15 DCW (Rec: 12/24/18 16:00 DCW [id number]) Palpation Assessment Location Four Palpation Location Gluteus Max Palpation Findings Soft Tissue Tightness Spasm Muscle Guarding Tenderness Palpation Details Moderate Tone and Tenderness 2 /5 - Pain with Wincing Three Palpation Location Quadratus Lumborum Palpation Findings Soft Tissue Tightness Spasm Muscle Guarding Tenderness Palpation Details Moderate Tone and Tenderness 2 /5 - Pain with Wincing Two Palpation Location Piriformis Palpation Findings Soft Tissue Tightness Spasm Muscle Guarding Tenderness Palpation Details Moderate Tone and Tenderness 2 /5 - Pain with Wincing One Palpation Location Multifidi Palpation Findings Soft Tissue Tightness Spasm Muscle Guarding Tenderness Palpation Details Moderate Tone and Tenderness 2 /5 - Pain with Wincing PT-OP-K Range of Motion Start: 12/21/17 16:51 Freq: Status: Active Protocol: Document 12/24/18 15:15 DCW (Rec: 12/24/18 16:00 DCW [id number]) Lumbar Spine Range of Motion Lumbar Spine Active Degrees Testing Position Standing Flexion 22 Extension 8 Comments Rotation and Lateral Flexion not tested secondary to pain PT-OP-L Special Tests Start: 12/21/17 16:51 Freq: Status: Active Protocol: Document 12/24/18 15:15 DCW (Rec: 12/24/18 16:00 DCW [id number]) Special Tests Lumbar Spine Special Tests Standing Flexion Test Results Lumbar spine unable to flex more than 15 degrees Prone Knee Flexion Test Results Quad tightness Straight Leg Raise Test Results Severe Bilateral pain at 35 degrees Prone Press Up Test Results Complaints of Pain PT-OP-Q Treatments Start: 12/21/17 16:51 Freq: Status: Active Protocol: Document 02/18/19 15:15 DCW (Rec: 02/18/19 16:07 DCW [id number]) Manual Therapy Treatment Soft Tissue Mobilization 6 Body Location Suboccipitals Mobilization Type Sustained Pressure Body Position Prone 5 Body Location Proximal Gastroc heads, bilateral Mobilization Type Instrument Assisted Myofascial Release Rolling Strumming Sustained Pressure Trigger Point Release Intensity/Depth Moderate Body Position Prone 4 Body Location Lumbar Paravetebral Musculature Mobilization Type Cross-Friction Instrument Assisted Rolling Strumming Sustained Pressure Trigger Point Release Intensity/Depth Moderate Body Position Prone 3 Body Location Piriformis Mobilization Type Myofascial Release 2 Body Location Quadratus Lumborum Mobilization Type Myofascial Release Strumming Sustained Pressure Trigger Point Release Intensity/Depth Deep Body Position Prone 1 Body Location Multifidi Mobilization Type Myofascial Release Strumming Sustained Pressure Trigger Point Release Intensity/Depth Moderate Body Position Prone Joint Mobilizations 1 Joint Lumbar 1-5 Direction P->A Grade III Body Position Prone PT-OP-R Modalities Start: 12/21/17 16:51 Freq: Status: Active Protocol: Document 02/18/19 15:15 DCW (Rec: 02/18/19 16:07 DCW [id number]) Ultrasound Therapy Treatment Right Lower Back Treatment Duration (minutes) 5 Patient Position Prone Coupling Medium Ultrasound Gel Frequency Setting (mHz) 1 Mode Setting Continuous Intensity Setting (w/cm2) 1.2 Left Lower Back Treatment Duration (minutes) 5 Patient Position Prone Coupling Medium Ultrasound Gel Frequency Setting (mHz) 1 Mode Setting Continuous Intensity Setting (w/cm2) 1.2 PT-OP-T Assessment and Plan Start: 12/21/17 16:51 Freq: Status: Active Protocol: Document 02/18/19 15:15 DCW (Rec: 02/18/19 16:07 DCW [id number]) Physical Therapy Assessment Impairments Impairments Activity Tolerance Balance Pain Posture ROM Soft Tissue Mobility Tone Goals Six Impairment Activity Tolerance Short Term Goal (STG) Pt to report ability to drive for 60 minutes with no increased pain STG Duration 01/24/19 - improving - 20 minutes Snf Goal (LTG) Pt to report ability to walk down to his barn from the house (100 yards) with no increased pain LTG Duration 02/23/19 - Improving - walk down and senior living back Five Impairment Pain Short Term Goal (STG) Pt to report pain at worst 7/ 10 STG Duration 01/24/19 Gold Charmer Goal (LTG) Pt to report pain at worst 4/ 10 LTG Duration 02/23/19 Four Impairment SLR Gold Charmer Goal (LTG) SLR to 50 degrees without increased pain LTG Duration 02/23/19 Three Impairment Joint Mobility Gold Charmer Goal (LTG) P->A mobility of L1-5 to WNL LTG Duration 02/23/19 - Improving Two Impairment Muscle Tone Gold Charmer Goal (LTG) Multifidi, QL, Glute Max, and Piriformis tone to Mild LTG Duration 02/23/19 - Improving, all from severe->mod tone One Impairment Palpation Tenderness Snf Goal (LTG) Low back tenderness to palpation down to 1/5 - Complaint of pain LTG Duration 02/23/19 - Improving - down from 3/4 to 2/4 in all areas Assessment Summary Assessment Pt struggled today maintaining a prone posture due to multiple muscle spasms in his back and anterior hips. Physical Therapy Plan Frequency and Duration Frequency of Treatment 2x/Week Duration of Treatment 12 weeks Plan of Care Start Date 12/24/18 Plan of Care End Date 03/18/19 Therapeutic Interventions Therapeutic Interventions Aquatic Therapy Home Exercise Program Joint Mobilizations Manual Therapy Neuromuscular Re-education Patient/Caregiver Education Soft Tissue Mobilization Therapeutic Exercises Vestibular Rehabilitation Modalities Cold Pack/Ice Massage Electric Stimulation Hot Packs Ultrasound Next Visit Focus/Plan Next Note Type Treatment Note Next Visit Plan Manual therapy for decreasing spasm, modalities (US, E-stim) .
--- NOTE | 2019-03-11 17:46 | PT.OTN ---
Current Diagnoses Unspecified inflammatory spondylopathy, lumbar region (03/11/19) Physical Therapy Treatment Note PT-OP-A Visit Information Start: 12/21/17 16:51 Freq: Status: Active Protocol: Document 03/11/19 16:00 DCW (Rec: 03/11/19 17:46 DCW [id number]) Out-Patient Physical Therapy Visit Information Visit Information Visit Type Treatment Note Visit Start Time 16:00 Visit Stop Time 16:45 Total Visit Minutes 45 Visit Number 57 Number of ELECTRICAL ELECTRONICS ENGINEERS Visits 0 Evaluation Information Evaluation Date 12/21/17 PT-OP-B Current Condition Start: 12/21/17 16:51 Freq: Status: Active Protocol: Document 03/27/18 14:30 DCW (Rec: 03/27/18 14:43 DCW [id number]) Current Condition Current Functional Impairments (Reported) Functional Limitations- ADL's Pain with standing for 10+ minutes Pain with sitting 30+ minutes Pain disturbs sleep Unable to drive 30+ minutes Functional Limitations- Mobility/Gait Pt reports he must drive from his house to the barn, which is ~100 yards away. 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 Personal Factors Other Personal Factors That May Effect Morbid Obesity, Neuropathy, Therapy/Recovery Phrenic nerve palsy, cervical spinal fusion PT-OP-C Subjective Start: 12/21/17 16:51 Freq: Status: Active Protocol: Document 03/11/19 16:00 DCW (Rec: 03/11/19 17:46 DCW [id number]) OP-PT Subjective Patient Comments Patient Comments Pt suffered a fall five days ago, reports he has been using a WBQC since to help support his leg, and has been having a lot of pain in his left hamstring. PT-OP-F Manual Assessment Start: 12/21/17 16:51 Freq: Status: Active Protocol: Document 09/26/18 14:30 DCW (Rec: 09/26/18 15:13 DCW [id number]) Manual Assessments Joint Mobility Assessment Joint Mobility Assessment P->A hypomobility and 2/5 - Pain with Wincing, tenderness in L1-L5 and bilateral SI joints PT-OP-J Posture/Palpation/Skin Start: 12/21/17 16:51 Freq: Status: Active Protocol: Document 12/24/18 15:15 DCW (Rec: 12/24/18 16:00 DCW [id number]) Palpation Assessment Location Four Palpation Location Gluteus Max Palpation Findings Soft Tissue Tightness Spasm Muscle Guarding Tenderness Palpation Details Moderate Tone and Tenderness 2 /5 - Pain with Wincing Three Palpation Location Quadratus Lumborum Palpation Findings Soft Tissue Tightness Spasm Muscle Guarding Tenderness Palpation Details Moderate Tone and Tenderness 2 /5 - Pain with Wincing Two Palpation Location Piriformis Palpation Findings Soft Tissue Tightness Spasm Muscle Guarding Tenderness Palpation Details Moderate Tone and Tenderness 2 /5 - Pain with Wincing One Palpation Location Multifidi Palpation Findings Soft Tissue Tightness Spasm Muscle Guarding Tenderness Palpation Details Moderate Tone and Tenderness 2 /5 - Pain with Wincing PT-OP-K Range of Motion Start: 12/21/17 16:51 Freq: Status: Active Protocol: Document 12/24/18 15:15 DCW (Rec: 12/24/18 16:00 DCW [id number]) Lumbar Spine Range of Motion Lumbar Spine Active Degrees Testing Position Standing Flexion 22 Extension 8 Comments Rotation and Lateral Flexion not tested secondary to pain PT-OP-L Special Tests Start: 12/21/17 16:51 Freq: Status: Active Protocol: Document 12/24/18 15:15 DCW (Rec: 12/24/18 16:00 DCW [id number]) Special Tests Lumbar Spine Special Tests Standing Flexion Test Results Lumbar spine unable to flex more than 15 degrees Prone Knee Flexion Test Results Quad tightness Straight Leg Raise Test Results Severe Bilateral pain at 35 degrees Prone Press Up Test Results Complaints of Pain PT-OP-Q Treatments Start: 12/21/17 16:51 Freq: Status: Active Protocol: Document 03/11/19 16:00 DCW (Rec: 03/11/19 17:46 DCW [id number]) Manual Therapy Treatment Soft Tissue Mobilization 7 Body Location left Hamstring Mobilization Type Strumming Sustained Pressure Trigger Point Release Intensity/Depth Deep Body Position Prone 6 Body Location Suboccipitals Mobilization Type Sustained Pressure Body Position Prone 5 Body Location Proximal Gastroc heads, bilateral Mobilization Type Instrument Assisted Myofascial Release Rolling Strumming Sustained Pressure Trigger Point Release Intensity/Depth Moderate Body Position Prone 4 Body Location Lumbar Paravetebral Musculature Mobilization Type Cross-Friction Instrument Assisted Rolling Strumming Sustained Pressure Trigger Point Release Intensity/Depth Moderate Body Position Prone 3 Body Location Piriformis Mobilization Type Myofascial Release 2 Body Location Quadratus Lumborum Mobilization Type Myofascial Release Strumming Sustained Pressure Trigger Point Release Intensity/Depth Deep Body Position Prone 1 Body Location Multifidi Mobilization Type Myofascial Release Strumming Sustained Pressure Trigger Point Release Intensity/Depth Moderate Body Position Prone PT-OP-R Modalities Start: 12/21/17 16:51 Freq: Status: Active Protocol: Document 02/18/19 15:15 DCW (Rec: 02/18/19 16:07 DCW [id number]) Ultrasound Therapy Treatment Right Lower Back Treatment Duration (minutes) 5 Patient Position Prone Coupling Medium Ultrasound Gel Frequency Setting (mHz) 1 Mode Setting Continuous Intensity Setting (w/cm2) 1.2 Left Lower Back Treatment Duration (minutes) 5 Patient Position Prone Coupling Medium Ultrasound Gel Frequency Setting (mHz) 1 Mode Setting Continuous Intensity Setting (w/cm2) 1.2 PT-OP-T Assessment and Plan Start: 12/21/17 16:51 Freq: Status: Active Protocol: Document 03/11/19 16:00 DCW (Rec: 03/11/19 17:46 DCW [id number]) Physical Therapy Assessment Impairments Impairments Activity Tolerance Balance Pain Posture ROM Soft Tissue Mobility Tone Goals Six Impairment Activity Tolerance Short Term Goal (STG) Pt to report ability to drive for 60 minutes with no increased pain STG Duration 01/24/19 - improving - 20 minutes General Ii Farmworker Goal (LTG) Pt to report ability to walk down to his barn from the house (100 yards) with no increased pain LTG Duration 02/23/19 - Improving - walk down and correction back Five Impairment Pain Short Term Goal (STG) Pt to report pain at worst 7/ 10 STG Duration 01/24/19 General Ii Farmworker Goal (LTG) Pt to report pain at worst 4/ 10 LTG Duration 02/23/19 Four Impairment SLR General Ii Farmworker Goal (LTG) SLR to 50 degrees without increased pain LTG Duration 02/23/19 Three Impairment Joint Mobility General Ii Farmworker Goal (LTG) P->A mobility of L1-5 to WNL LTG Duration 02/23/19 - Improving Two Impairment Muscle Tone General Ii Farmworker Goal (LTG) Multifidi, QL, Glute Max, and Piriformis tone to Mild LTG Duration 02/23/19 - Improving, all from severe->mod tone One Impairment Palpation Tenderness General Ii Farmworker Goal (LTG) Low back tenderness to palpation down to 1/5 - Complaint of pain LTG Duration 02/23/19 - Improving - down from 3/4 to 2/4 in all areas Assessment Summary Assessment Pt's hamstring pain appears to be secondary to a strain following his fall, no indications of structural damage or muscle tears at this time. However, while working on his right calf, therapist noticed an open, weeping wound 3x1.5 cm on his calf, with increased redness around the surrounding skin and increased temperature to the touch. Pt had no idea there was a wound there, and pt was instructed to go to the walk-in clinic following his PT appointment. Physical Therapy Plan Frequency and Duration Frequency of Treatment 2x/Week Duration of Treatment 12 weeks Plan of Care Start Date 12/24/18 Plan of Care End Date 03/18/19 Therapeutic Interventions Therapeutic Interventions Aquatic Therapy Home Exercise Program Joint Mobilizations Manual Therapy Neuromuscular Re-education Patient/Caregiver Education Soft Tissue Mobilization Therapeutic Exercises Vestibular Rehabilitation Modalities Cold Pack/Ice Massage Electric Stimulation Hot Packs Ultrasound Next Visit Focus/Plan Next Note Type Treatment Note Next Visit Plan Manual therapy for decreasing spasm, modalities (US, E-stim) .
--- NOTE | 2019-03-25 17:53 | PT.OTN ---
Current Diagnoses Unspecified inflammatory spondylopathy, lumbar region (03/25/19) Physical Therapy Treatment Note PT-OP-A Visit Information Start: 12/21/17 16:51 Freq: Status: Active Protocol: Document 03/25/19 16:00 DCW (Rec: 03/25/19 17:53 DCW [id number]) Out-Patient Physical Therapy Visit Information Visit Information Visit Type Treatment Note Visit Start Time 16:00 Visit Stop Time 16:45 Total Visit Minutes 45 Visit Number 58 Number of ASSISTANT ATTORNEY GENERAL Visits 0 Evaluation Information Evaluation Date 12/21/17 PT-OP-B Current Condition Start: 12/21/17 16:51 Freq: Status: Active Protocol: Document 03/27/18 14:30 DCW (Rec: 03/27/18 14:43 DCW [id number]) Current Condition Current Functional Impairments (Reported) Functional Limitations- ADL's Pain with standing for 10+ minutes Pain with sitting 30+ minutes Pain disturbs sleep Unable to drive 30+ minutes Functional Limitations- Mobility/Gait Pt reports he must drive from his house to the barn, which is ~100 yards away. 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 Personal Factors Other Personal Factors That May Effect Morbid Obesity, Neuropathy, Therapy/Recovery Phrenic nerve palsy, cervical spinal fusion PT-OP-C Subjective Start: 12/21/17 16:51 Freq: Status: Active Protocol: Document 03/25/19 16:00 DCW (Rec: 03/25/19 17:53 DCW [id number]) OP-PT Subjective Patient Comments Patient Comments I really missed you last week , since I couldn't get in. I am really feeling it. PT-OP-F Manual Assessment Start: 12/21/17 16:51 Freq: Status: Active Protocol: Document 03/25/19 16:00 DCW (Rec: 03/25/19 16:43 DCW [id number]) Manual Assessments Joint Mobility Assessment Joint Mobility Assessment P->A hypomobility and 2/5 - Pain with Wincing, tenderness in L1-L5 and bilateral SI joints PT-OP-J Posture/Palpation/Skin Start: 12/21/17 16:51 Freq: Status: Active Protocol: Document 03/25/19 16:00 DCW (Rec: 03/25/19 16:43 DCW [id number]) Palpation Assessment Location Four Palpation Location Gluteus Max Palpation Findings Soft Tissue Tightness Spasm Muscle Guarding Tenderness Palpation Details Moderate Tone and Tenderness 2 /5 - Pain with Wincing Three Palpation Location Quadratus Lumborum Palpation Findings Soft Tissue Tightness Spasm Muscle Guarding Tenderness Palpation Details Moderate Tone and Tenderness 2 /5 - Pain with Wincing Two Palpation Location Piriformis Palpation Findings Soft Tissue Tightness Spasm Muscle Guarding Tenderness Palpation Details Moderate Tone and Tenderness 2 /5 - Pain with Wincing One Palpation Location Multifidi Palpation Findings Soft Tissue Tightness Spasm Muscle Guarding Tenderness Palpation Details Mild Tone and Tenderness 1/5 - Complaint of Pain PT-OP-K Range of Motion Start: 12/21/17 16:51 Freq: Status: Active Protocol: Document 03/25/19 16:00 DCW (Rec: 03/25/19 16:43 DCW [id number]) Lumbar Spine Range of Motion Lumbar Spine Active Degrees Testing Position Standing Flexion 28 Extension 12 Lateral Flexion Left 62 Lateral Flexion Right 64 Comments Rotation tested secondary to pain Lateral Flexion measured in cm from fingertips to floor PT-OP-L Special Tests Start: 12/21/17 16:51 Freq: Status: Active Protocol: Document 03/25/19 16:00 DCW (Rec: 03/25/19 16:43 DCW [id number]) Special Tests Lumbar Spine Special Tests Standing Flexion Test Results Lumbar spine unable to flex more than 25 degrees Prone Knee Flexion Test Results Quad tightness Straight Leg Raise Test Results Moderate Bilateral pain at 45 degrees Prone Press Up Test Results Complaints of Pain PT-OP-Q Treatments Start: 12/21/17 16:51 Freq: Status: Active Protocol: Document 03/25/19 16:00 DCW (Rec: 03/25/19 17:53 DCW [id number]) Manual Therapy Treatment Soft Tissue Mobilization 7 Body Location left Hamstring Mobilization Type Strumming Sustained Pressure Trigger Point Release Intensity/Depth Deep Body Position Prone 6 Body Location Suboccipitals Mobilization Type Sustained Pressure Body Position Prone 5 Body Location Proximal Gastroc heads, bilateral Mobilization Type Instrument Assisted Myofascial Release Rolling Strumming Sustained Pressure Trigger Point Release Intensity/Depth Moderate Body Position Prone 4 Body Location Lumbar Paravetebral Musculature Mobilization Type Cross-Friction Instrument Assisted Rolling Strumming Sustained Pressure Trigger Point Release Intensity/Depth Moderate Body Position Prone 3 Body Location Piriformis Mobilization Type Myofascial Release 2 Body Location Quadratus Lumborum Mobilization Type Myofascial Release Strumming Sustained Pressure Trigger Point Release Intensity/Depth Deep Body Position Prone 1 Body Location Multifidi Mobilization Type Myofascial Release Strumming Sustained Pressure Trigger Point Release Intensity/Depth Moderate Body Position Prone Joint Mobilizations 1 Joint Lumbar 1-5 Direction P->A Grade III Body Position Prone PT-OP-R Modalities Start: 12/21/17 16:51 Freq: Status: Active Protocol: Document 02/18/19 15:15 DCW (Rec: 02/18/19 16:07 DCW [id number]) Ultrasound Therapy Treatment Right Lower Back Treatment Duration (minutes) 5 Patient Position Prone Coupling Medium Ultrasound Gel Frequency Setting (mHz) 1 Mode Setting Continuous Intensity Setting (w/cm2) 1.2 Left Lower Back Treatment Duration (minutes) 5 Patient Position Prone Coupling Medium Ultrasound Gel Frequency Setting (mHz) 1 Mode Setting Continuous Intensity Setting (w/cm2) 1.2 PT-OP-T Assessment and Plan Start: 12/21/17 16:51 Freq: Status: Active Protocol: Document 03/25/19 16:00 DCW (Rec: 03/25/19 17:53 DCW [id number]) Physical Therapy Assessment Impairments Impairments Activity Tolerance Balance Pain Posture ROM Soft Tissue Mobility Tone Goals Six Impairment Activity Tolerance Short Term Goal (STG) Pt to report ability to drive for 60 minutes with no increased pain STG Duration 01/24/19 - improving - 20 minutes Skilled Nursing Goal (LTG) Pt to report ability to walk down to his barn from the house (100 yards) with no increased pain LTG Duration 02/23/19 - Improving - walk down and correction back Five Impairment Pain Short Term Goal (STG) Pt to report pain at worst 7/ 10 STG Duration 01/24/19 Residential Installer Goal (LTG) Pt to report pain at worst 4/ 10 LTG Duration 02/23/19 Four Impairment SLR Residential Installer Goal (LTG) SLR to 50 degrees without increased pain LTG Duration 02/23/19 Three Impairment Joint Mobility Skilled Nursing Goal (LTG) P->A mobility of L1-5 to WNL LTG Duration 02/23/19 - Improving Two Impairment Muscle Tone Skilled Nursing Goal (LTG) Multifidi, QL, Glute Max, and Piriformis tone to Mild LTG Duration 02/23/19/ - Improving, all from severe->mod tone One Impairment Palpation Tenderness Skilled Nursing Goal (LTG) Low back tenderness to palpation down to 1/5 - Complaint of pain LTG Duration 02/23/19 - Improving - down from 3/4 to 2/4 in all areas Assessment Summary Assessment Pt admits that overall, he feels like there has been good progress, but he also admits that he has slid backward a lot the past few weeks. Pt has suffered two falls, and has had major flare-ups of worsening neuropathy recently, which has increased his pain and unsteadiness. Continued therapy should focus on decreasing tone, improving ROM , and increasing quality of movement. Physical Therapy Plan Frequency and Duration Frequency of Treatment 2x/Week Duration of Treatment 12 weeks Plan of Care Start Date 03/25/19 Plan of Care End Date 06/07/19 Therapeutic Interventions Therapeutic Interventions Aquatic Therapy Home Exercise Program Joint Mobilizations Manual Therapy Neuromuscular Re-education Patient/Caregiver Education Soft Tissue Mobilization Therapeutic Exercises Vestibular Rehabilitation Modalities Cold Pack/Ice Massage Electric Stimulation Hot Packs Ultrasound Next Visit Focus/Plan Next Note Type Treatment Note Next Visit Plan Manual therapy for decreasing spasm, modalities (US, E-stim) .
--- NOTE | 2019-04-08 16:49 | PT.OTN ---
Current Diagnoses Unspecified inflammatory spondylopathy, lumbar region (04/08/19) Physical Therapy Treatment Note PT-OP-A Visit Information Start: 12/21/17 16:51 Freq: Status: Active Protocol: Document 04/08/19 16:00 DCW (Rec: 04/08/19 16:48 DCW [id number]) Out-Patient Physical Therapy Visit Information Visit Information Visit Type Treatment Note Visit Start Time 16:00 Visit Stop Time 16:45 Total Visit Minutes 45 Visit Number 59 Number of COMPACTING MACHINE OPERATOR/TENDER Visits 0 Evaluation Information Evaluation Date 12/21/17 PT-OP-B Current Condition Start: 12/21/17 16:51 Freq: Status: Active Protocol: Document 03/27/18 14:30 DCW (Rec: 03/27/18 14:43 DCW [id number]) Current Condition Current Functional Impairments (Reported) Functional Limitations- ADL's Pain with standing for 10+ minutes Pain with sitting 30+ minutes Pain disturbs sleep Unable to drive 30+ minutes Functional Limitations- Mobility/Gait Pt reports he must drive from his house to the barn, which is ~100 yards away. 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 Personal Factors Other Personal Factors That May Effect Morbid Obesity, Neuropathy, Therapy/Recovery Phrenic nerve palsy, cervical spinal fusion PT-OP-C Subjective Start: 12/21/17 16:51 Freq: Status: Active Protocol: Document 04/08/19 16:00 DCW (Rec: 04/08/19 16:48 DCW [id number]) OP-PT Subjective Patient Comments Patient Comments Pt reports that lest Sunday , he fell up some stairs, catching himself on his elbow and shoulder, and on , went into the ER due to elbow pain and, and there seems to be disagreement between radiology and the PA about the presence of a small fracture on his elbow or not. PT-OP-F Manual Assessment Start: 12/21/17 16:51 Freq: Status: Active Protocol: Document 03/25/19 16:00 DCW (Rec: 03/25/19 16:43 DCW [id number]) Manual Assessments Joint Mobility Assessment Joint Mobility Assessment P->A hypomobility and 2/5 - Pain with Wincing, tenderness in L1-L5 and bilateral SI joints PT-OP-J Posture/Palpation/Skin Start: 12/21/17 16:51 Freq: Status: Active Protocol: Document 03/25/19 16:00 DCW (Rec: 03/25/19 16:43 DCW [id number]) Palpation Assessment Location Four Palpation Location Gluteus Max Palpation Findings Soft Tissue Tightness,Spasm, Muscle Guarding,Tenderness Palpation Details Moderate Tone and Tenderness 2 /5 - Pain with Wincing Three Palpation Location Quadratus Lumborum Palpation Findings Soft Tissue Tightness,Spasm, Muscle Guarding,Tenderness Palpation Details Moderate Tone and Tenderness 2 /5 - Pain with Wincing Two Palpation Location Piriformis Palpation Findings Soft Tissue Tightness,Spasm, Muscle Guarding,Tenderness Palpation Details Moderate Tone and Tenderness 2 /5 - Pain with Wincing One Palpation Location Multifidi Palpation Findings Soft Tissue Tightness,Spasm, Muscle Guarding,Tenderness Palpation Details Mild Tone and Tenderness 1/5 - Complaint of Pain PT-OP-K Range of Motion Start: 12/21/17 16:51 Freq: Status: Active Protocol: Document 03/25/19 16:00 DCW (Rec: 03/25/19 16:43 DCW [id number]) Lumbar Spine Range of Motion Lumbar Spine Active Degrees Testing Position Standing Flexion 28 Extension 12 Lateral Flexion Left 62 Lateral Flexion Right 64 Comments Rotation tested secondary to pain Lateral Flexion measured in cm from fingertips to floor PT-OP-L Special Tests Start: 12/21/17 16:51 Freq: Status: Active Protocol: Document 03/25/19 16:00 DCW (Rec: 03/25/19 16:43 DCW [id number]) Special Tests Lumbar Spine Special Tests Standing Flexion Test Results Lumbar spine unable to flex more than 25 degrees Prone Knee Flexion Test Results Quad tightness Straight Leg Raise Test Results Moderate Bilateral pain at 45 degrees Prone Press Up Test Results Complaints of Pain PT-OP-Q Treatments Start: 12/21/17 16:51 Freq: Status: Active Protocol: Document 04/08/19 16:00 DCW (Rec: 04/08/19 16:48 DCW [id number]) Manual Therapy Treatment Soft Tissue Mobilization 7 Body Location left Hamstring Mobilization Type Strumming,Sustained Pressure, Trigger Point Release Intensity/Depth Deep Body Position Prone 6 Body Location Suboccipitals Mobilization Type Sustained Pressure Body Position Prone 5 Body Location Proximal Gastroc heads, bilateral Mobilization Type Instrument Assisted,Myofascial Release,Rolling,Strumming, Sustained Pressure,Trigger Point Release Intensity/Depth Moderate Body Position Prone 4 Body Location Lumbar Paravetebral Musculature Mobilization Type Cross-Friction,Instrument Assisted,Rolling,Strumming, Sustained Pressure,Trigger Point Release Intensity/Depth Moderate Body Position Prone 3 Body Location Piriformis Mobilization Type Myofascial Release 2 Body Location Quadratus Lumborum Mobilization Type Myofascial Release,Strumming, Sustained Pressure,Trigger Point Release Intensity/Depth Deep Body Position Prone 1 Body Location Multifidi Mobilization Type Myofascial Release,Strumming, Sustained Pressure,Trigger Point Release Intensity/Depth Moderate Body Position Prone Joint Mobilizations 1 Joint Lumbar 1-5 Direction P->A Grade III Body Position Prone PT-OP-R Modalities Start: 12/21/17 16:51 Freq: Status: Active Protocol: Document 02/18/19 15:15 DCW (Rec: 02/18/19 16:07 DCW [id number]) Ultrasound Therapy Treatment Right Lower Back Treatment Duration (minutes) 5 Patient Position Prone Coupling Medium Ultrasound Gel Frequency Setting (mHz) 1 Mode Setting Continuous Intensity Setting (w/cm2) 1.2 Left Lower Back Treatment Duration (minutes) 5 Patient Position Prone Coupling Medium Ultrasound Gel Frequency Setting (mHz) 1 Mode Setting Continuous Intensity Setting (w/cm2) 1.2 PT-OP-T Assessment and Plan Start: 12/21/17 16:51 Freq: Status: Active Protocol: Document 04/08/19 16:00 DCW (Rec: 04/08/19 16:48 DCW [id number]) Physical Therapy Assessment Impairments Impairments Activity Tolerance,Balance, Pain,Posture,ROM,Soft Tissue Mobility,Tone Goals Six Impairment Activity Tolerance Short Term Goal (STG) Pt to report ability to drive for 60 minutes with no increased pain STG Duration 01/24/19 - improving - 20 minutes Radio Interference Investigator Goal (LTG) Pt to report ability to walk down to his barn from the house (100 yards) with no increased pain LTG Duration 02/23/19 - Improving - walk down and longterm back Five Impairment Pain Short Term Goal (STG) Pt to report pain at worst 7/ 10 STG Duration 01/24/19 Radio Interference Investigator Goal (LTG) Pt to report pain at worst 4/ 10 LTG Duration 02/23/19 Four Impairment SLR Radio Interference Investigator Goal (LTG) SLR to 50 degrees without increased pain LTG Duration 02/23/19 Three Impairment Joint Mobility Radio Interference Investigator Goal (LTG) P->A mobility of L1-5 to WNL LTG Duration 02/23/19 - Improving Two Impairment Muscle Tone Halfway Goal (LTG) Multifidi, QL, Glute Max, and Piriformis tone to Mild LTG Duration 02/23/19/18 - Improving, all from severe->mod tone One Impairment Palpation Tenderness Halfway Goal (LTG) Low back tenderness to palpation down to 1/5 - Complaint of pain LTG Duration 02/23/19 - Improving - down from 3/4 to 2/4 in all areas Assessment Summary Assessment Following his fall last week, pt has obvious limiting pain in his left shoulder and elbow , and likely twisted his back falling, creating increased tone and tenderness to STM, however pt was feeling better following treatment session today. Physical Therapy Plan Frequency and Duration Frequency of Treatment 2x/Week Duration of Treatment 12 weeks Plan of Care Start Date 03/25/19 Plan of Care End Date 06/07/19 Therapeutic Interventions Therapeutic Interventions Aquatic Therapy,Home Exercise Program,Joint Mobilizations, Manual Therapy,Neuromuscular Re-education,Patient/Caregiver Education,Soft Tissue Mobilization,Therapeutic Exercises,Vestibular Rehabilitation Modalities Cold Pack/Ice Massage,Electric Stimulation,Hot Packs, Ultrasound Next Visit Focus/Plan Next Note Type Treatment Note Next Visit Plan Manual therapy for decreasing spasm, modalities (US, E-stim) .
--- NOTE | 2019-04-15 16:51 | PT.OTN ---
Current Diagnoses Unspecified inflammatory spondylopathy, lumbar region (04/15/19) Physical Therapy Treatment Note PT-OP-A Visit Information Start: 12/21/17 16:51 Freq: Status: Active Protocol: Document 04/15/19 16:00 DCW (Rec: 04/15/19 16:51 DCW [id number]) Out-Patient Physical Therapy Visit Information Visit Information Visit Type Treatment Note Visit Start Time 16:00 Visit Stop Time 16:45 Total Visit Minutes 45 Visit Number 60 Number of AIRCRAFT MAINTENANCE SUPERVISOR Visits 0 Evaluation Information Evaluation Date 12/21/17 PT-OP-B Current Condition Start: 12/21/17 16:51 Freq: Status: Active Protocol: Document 03/27/18 14:30 DCW (Rec: 03/27/18 14:43 DCW [id number]) Current Condition Current Functional Impairments (Reported) Functional Limitations- ADL's Pain with standing for 10+ minutes Pain with sitting 30+ minutes Pain disturbs sleep Unable to drive 30+ minutes Functional Limitations- Mobility/Gait Pt reports he must drive from his house to the barn, which is ~100 yards away. 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 Personal Factors Other Personal Factors That May Effect Morbid Obesity, Neuropathy, Therapy/Recovery Phrenic nerve palsy, cervical spinal fusion PT-OP-C Subjective Start: 12/21/17 16:51 Freq: Status: Active Protocol: Document 04/15/19 16:00 DCW (Rec: 04/15/19 16:51 DCW [id number]) OP-PT Subjective Patient Comments Patient Comments Pt reports feeling tight today , notes he has not fallen or lifted any heavy objects to cause it. PT-OP-F Manual Assessment Start: 12/21/17 16:51 Freq: Status: Active Protocol: Document 03/25/19 16:00 DCW (Rec: 03/25/19 16:43 DCW [id number]) Manual Assessments Joint Mobility Assessment Joint Mobility Assessment P->A hypomobility and 2/5 - Pain with Wincing, tenderness in L1-L5 and bilateral SI joints PT-OP-J Posture/Palpation/Skin Start: 12/21/17 16:51 Freq: Status: Active Protocol: Document 03/25/19 16:00 DCW (Rec: 03/25/19 16:43 DCW [id number]) Palpation Assessment Location Four Palpation Location Gluteus Max Palpation Findings Soft Tissue Tightness,Spasm, Muscle Guarding,Tenderness Palpation Details Moderate Tone and Tenderness 2 /5 - Pain with Wincing Three Palpation Location Quadratus Lumborum Palpation Findings Soft Tissue Tightness,Spasm, Muscle Guarding,Tenderness Palpation Details Moderate Tone and Tenderness 2 /5 - Pain with Wincing Two Palpation Location Piriformis Palpation Findings Soft Tissue Tightness,Spasm, Muscle Guarding,Tenderness Palpation Details Moderate Tone and Tenderness 2 /5 - Pain with Wincing One Palpation Location Multifidi Palpation Findings Soft Tissue Tightness,Spasm, Muscle Guarding,Tenderness Palpation Details Mild Tone and Tenderness 1/5 - Complaint of Pain PT-OP-K Range of Motion Start: 12/21/17 16:51 Freq: Status: Active Protocol: Document 03/25/19 16:00 DCW (Rec: 03/25/19 16:43 DCW [id number]) Lumbar Spine Range of Motion Lumbar Spine Active Degrees Testing Position Standing Flexion 28 Extension 12 Lateral Flexion Left 62 Lateral Flexion Right 64 Comments Rotation tested secondary to pain Lateral Flexion measured in cm from fingertips to floor PT-OP-L Special Tests Start: 12/21/17 16:51 Freq: Status: Active Protocol: Document 03/25/19 16:00 DCW (Rec: 03/25/19 16:43 DCW [id number]) Special Tests Lumbar Spine Special Tests Standing Flexion Test Results Lumbar spine unable to flex more than 25 degrees Prone Knee Flexion Test Results Quad tightness Straight Leg Raise Test Results Moderate Bilateral pain at 45 degrees Prone Press Up Test Results Complaints of Pain PT-OP-Q Treatments Start: 12/21/17 16:51 Freq: Status: Active Protocol: Document 04/15/19 16:00 DCW (Rec: 04/15/19 16:51 DCW [id number]) Manual Therapy Treatment Soft Tissue Mobilization 7 Body Location left Hamstring Mobilization Type Strumming,Sustained Pressure, Trigger Point Release Intensity/Depth Deep Body Position Prone 6 Body Location Suboccipitals Mobilization Type Sustained Pressure Body Position Prone 5 Body Location Proximal Gastroc heads, bilateral Mobilization Type Instrument Assisted,Myofascial Release,Rolling,Strumming, Sustained Pressure,Trigger Point Release Intensity/Depth Moderate Body Position Prone 4 Body Location Lumbar Paravetebral Musculature Mobilization Type Cross-Friction,Instrument Assisted,Rolling,Strumming, Sustained Pressure,Trigger Point Release Intensity/Depth Moderate Body Position Prone 3 Body Location Piriformis Mobilization Type Myofascial Release 2 Body Location Quadratus Lumborum Mobilization Type Myofascial Release,Strumming, Sustained Pressure,Trigger Point Release Intensity/Depth Deep Body Position Prone 1 Body Location Multifidi Mobilization Type Myofascial Release,Strumming, Sustained Pressure,Trigger Point Release Intensity/Depth Moderate Body Position Prone Joint Mobilizations 1 Joint Lumbar 1-5 Direction P->A Grade III Body Position Prone PT-OP-R Modalities Start: 12/21/17 16:51 Freq: Status: Active Protocol: Document 02/18/19 15:15 DCW (Rec: 02/18/19 16:07 DCW [id number]) Ultrasound Therapy Treatment Right Lower Back Treatment Duration (minutes) 5 Patient Position Prone Coupling Medium Ultrasound Gel Frequency Setting (mHz) 1 Mode Setting Continuous Intensity Setting (w/cm2) 1.2 Left Lower Back Treatment Duration (minutes) 5 Patient Position Prone Coupling Medium Ultrasound Gel Frequency Setting (mHz) 1 Mode Setting Continuous Intensity Setting (w/cm2) 1.2 PT-OP-T Assessment and Plan Start: 12/21/17 16:51 Freq: Status: Active Protocol: Document 04/15/19 16:00 DCW (Rec: 04/15/19 16:51 DCW [id number]) Physical Therapy Assessment Impairments Impairments Activity Tolerance,Balance, Pain,Posture,ROM,Soft Tissue Mobility,Tone Goals Six Impairment Activity Tolerance Short Term Goal (STG) Pt to report ability to drive for 60 minutes with no increased pain STG Duration 01/24/19 - improving - 20 minutes Assistant Technician Goal (LTG) Pt to report ability to walk down to his barn from the house (100 yards) with no increased pain LTG Duration 02/23/19 - Improving - walk down and retirement back Five Impairment Pain Short Term Goal (STG) Pt to report pain at worst 7/ 10 STG Duration 01/24/19 Nursing Home Goal (LTG) Pt to report pain at worst 4/ 10 LTG Duration 02/23/19 Four Impairment SLR Assistant Technician Goal (LTG) SLR to 50 degrees without increased pain LTG Duration 02/23/19 Three Impairment Joint Mobility Nursing Home Goal (LTG) P->A mobility of L1-5 to WNL LTG Duration 02/23/19 - Improving Two Impairment Muscle Tone Assistant Technician Goal (LTG) Multifidi, QL, Glute Max, and Piriformis tone to Mild LTG Duration 02/23/19/ - Improving, all from severe->mod tone One Impairment Palpation Tenderness Assistant Technician Goal (LTG) Low back tenderness to palpation down to 1/5 - Complaint of pain LTG Duration 02/23/19 - Improving - down from 3/4 to 2/4 in all areas Assessment Summary Assessment Pt back to his normal level of tone and tenderness after increase last week following his fall. Physical Therapy Plan Frequency and Duration Frequency of Treatment 2x/Week Duration of Treatment 12 weeks Plan of Care Start Date 03/25/19 Plan of Care End Date 06/07/19 Therapeutic Interventions Therapeutic Interventions Aquatic Therapy,Home Exercise Program,Joint Mobilizations, Manual Therapy,Neuromuscular Re-education,Patient/Caregiver Education,Soft Tissue Mobilization,Therapeutic Exercises,Vestibular Rehabilitation Modalities Cold Pack/Ice Massage,Electric Stimulation,Hot Packs, Ultrasound Next Visit Focus/Plan Next Note Type Treatment Note Next Visit Plan Manual therapy for decreasing spasm, modalities (US, E-stim) .
--- NOTE | 2019-04-22 16:45 | PT.OTN ---
Current Diagnoses Unspecified inflammatory spondylopathy, lumbar region (04/22/19) Physical Therapy Treatment Note PT-OP-A Visit Information Start: 12/21/17 16:51 Freq: Status: Active Protocol: Document 04/22/19 16:00 DCW (Rec: 04/22/19 16:45 DCW [id number]) Out-Patient Physical Therapy Visit Information Visit Information Visit Type Treatment Note Visit Start Time 16:00 Visit Stop Time 16:45 Total Visit Minutes 45 Visit Number 61 Number of NET DEVELOPMENT MANAGER Visits 0 Evaluation Information Evaluation Date 12/21/17 PT-OP-B Current Condition Start: 12/21/17 16:51 Freq: Status: Active Protocol: Document 03/27/18 14:30 DCW (Rec: 03/27/18 14:43 DCW [id number]) Current Condition Current Functional Impairments (Reported) Functional Limitations- ADL's Pain with standing for 10+ minutes Pain with sitting 30+ minutes Pain disturbs sleep Unable to drive 30+ minutes Functional Limitations- Mobility/Gait Pt reports he must drive from his house to the barn, which is ~100 yards away. 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 Personal Factors Other Personal Factors That May Effect Morbid Obesity, Neuropathy, Therapy/Recovery Phrenic nerve palsy, cervical spinal fusion PT-OP-C Subjective Start: 12/21/17 16:51 Freq: Status: Active Protocol: Document 04/22/19 16:00 DCW (Rec: 04/22/19 16:45 DCW [id number]) OP-PT Subjective Patient Comments Patient Comments Pt feels better today, frustrated because he has lost more than 100#, but still hasn't seen the overall changes that he was hoping for . PT-OP-F Manual Assessment Start: 12/21/17 16:51 Freq: Status: Active Protocol: Document 03/25/19 16:00 DCW (Rec: 03/25/19 16:43 DCW [id number]) Manual Assessments Joint Mobility Assessment Joint Mobility Assessment P->A hypomobility and 2/5 - Pain with Wincing, tenderness in L1-L5 and bilateral SI joints PT-OP-J Posture/Palpation/Skin Start: 12/21/17 16:51 Freq: Status: Active Protocol: Document 03/25/19 16:00 DCW (Rec: 03/25/19 16:43 DCW [id number]) Palpation Assessment Location Four Palpation Location Gluteus Max Palpation Findings Soft Tissue Tightness,Spasm, Muscle Guarding,Tenderness Palpation Details Moderate Tone and Tenderness 2 /5 - Pain with Wincing Three Palpation Location Quadratus Lumborum Palpation Findings Soft Tissue Tightness,Spasm, Muscle Guarding,Tenderness Palpation Details Moderate Tone and Tenderness 2 /5 - Pain with Wincing Two Palpation Location Piriformis Palpation Findings Soft Tissue Tightness,Spasm, Muscle Guarding,Tenderness Palpation Details Moderate Tone and Tenderness 2 /5 - Pain with Wincing One Palpation Location Multifidi Palpation Findings Soft Tissue Tightness,Spasm, Muscle Guarding,Tenderness Palpation Details Mild Tone and Tenderness 1/5 - Complaint of Pain PT-OP-K Range of Motion Start: 12/21/17 16:51 Freq: Status: Active Protocol: Document 03/25/19 16:00 DCW (Rec: 03/25/19 16:43 DCW [id number]) Lumbar Spine Range of Motion Lumbar Spine Active Degrees Testing Position Standing Flexion 28 Extension 12 Lateral Flexion Left 62 Lateral Flexion Right 64 Comments Rotation tested secondary to pain Lateral Flexion measured in cm from fingertips to floor PT-OP-L Special Tests Start: 12/21/17 16:51 Freq: Status: Active Protocol: Document 03/25/19 16:00 DCW (Rec: 03/25/19 16:43 DCW [id number]) Special Tests Lumbar Spine Special Tests Standing Flexion Test Results Lumbar spine unable to flex more than 25 degrees Prone Knee Flexion Test Results Quad tightness Straight Leg Raise Test Results Moderate Bilateral pain at 45 degrees Prone Press Up Test Results Complaints of Pain PT-OP-Q Treatments Start: 12/21/17 16:51 Freq: Status: Active Protocol: Document 04/22/19 16:00 DCW (Rec: 04/22/19 16:45 DCW [id number]) Manual Therapy Treatment Soft Tissue Mobilization 7 Body Location left Hamstring Mobilization Type Strumming,Sustained Pressure, Trigger Point Release Intensity/Depth Deep Body Position Prone 6 Body Location Suboccipitals Mobilization Type Sustained Pressure Body Position Prone 5 Body Location Proximal Gastroc heads, bilateral Mobilization Type Instrument Assisted,Myofascial Release,Rolling,Strumming, Sustained Pressure,Trigger Point Release Intensity/Depth Moderate Body Position Prone 4 Body Location Lumbar Paravetebral Musculature Mobilization Type Cross-Friction,Instrument Assisted,Rolling,Strumming, Sustained Pressure,Trigger Point Release Intensity/Depth Moderate Body Position Prone 3 Body Location Piriformis Mobilization Type Myofascial Release 2 Body Location Quadratus Lumborum Mobilization Type Myofascial Release,Strumming, Sustained Pressure,Trigger Point Release Intensity/Depth Deep Body Position Prone 1 Body Location Multifidi Mobilization Type Myofascial Release,Strumming, Sustained Pressure,Trigger Point Release Intensity/Depth Moderate Body Position Prone Joint Mobilizations 1 Joint Lumbar 1-5 Direction P->A Grade III Body Position Prone PT-OP-R Modalities Start: 12/21/17 16:51 Freq: Status: Active Protocol: Document 02/18/19 15:15 DCW (Rec: 02/18/19 16:07 DCW [id number]) Ultrasound Therapy Treatment Right Lower Back Treatment Duration (minutes) 5 Patient Position Prone Coupling Medium Ultrasound Gel Frequency Setting (mHz) 1 Mode Setting Continuous Intensity Setting (w/cm2) 1.2 Left Lower Back Treatment Duration (minutes) 5 Patient Position Prone Coupling Medium Ultrasound Gel Frequency Setting (mHz) 1 Mode Setting Continuous Intensity Setting (w/cm2) 1.2 PT-OP-T Assessment and Plan Start: 12/21/17 16:51 Freq: Status: Active Protocol: Document 04/22/19 16:00 DCW (Rec: 04/22/19 16:45 DCW [id number]) Physical Therapy Assessment Impairments Impairments Activity Tolerance,Balance, Pain,Posture,ROM,Soft Tissue Mobility,Tone Goals Six Impairment Activity Tolerance Short Term Goal (STG) Pt to report ability to drive for 60 minutes with no increased pain STG Duration 01/24/19 - improving - 20 minutes Senior Care Goal (LTG) Pt to report ability to walk down to his barn from the house (100 yards) with no increased pain LTG Duration 02/23/19 - Improving - walk down and snf back Five Impairment Pain Short Term Goal (STG) Pt to report pain at worst 7/ 10 STG Duration 01/24/19 Children'S Counselor Goal (LTG) Pt to report pain at worst 4/ 10 LTG Duration 02/23/19 Four Impairment SLR Senior Care Goal (LTG) SLR to 50 degrees without increased pain LTG Duration 02/23/19 Three Impairment Joint Mobility Children'S Counselor Goal (LTG) P->A mobility of L1-5 to WNL LTG Duration 02/23/19 - Improving Two Impairment Muscle Tone Senior Care Goal (LTG) Multifidi, QL, Glute Max, and Piriformis tone to Mild LTG Duration 02/23/19/ - Improving, all from severe->mod tone One Impairment Palpation Tenderness Children'S Counselor Goal (LTG) Low back tenderness to palpation down to 1/5 - Complaint of pain LTG Duration 02/23/19 - Improving - down from 3/4 to 2/4 in all areas Assessment Summary Assessment Pt making some small progress with pain and tone levels, tolerated STM well. Physical Therapy Plan Frequency and Duration Frequency of Treatment 2x/Week Duration of Treatment 12 weeks Plan of Care Start Date 03/25/19 Plan of Care End Date 06/07/19 Therapeutic Interventions Therapeutic Interventions Aquatic Therapy,Home Exercise Program,Joint Mobilizations, Manual Therapy,Neuromuscular Re-education,Patient/Caregiver Education,Soft Tissue Mobilization,Therapeutic Exercises,Vestibular Rehabilitation Modalities Cold Pack/Ice Massage,Electric Stimulation,Hot Packs, Ultrasound Next Visit Focus/Plan Next Note Type Treatment Note Next Visit Plan Manual therapy for decreasing spasm, modalities (US, E-stim) .
--- NOTE | 2019-05-05 12:43 | PT.OTN ---
Current Diagnoses Unspecified inflammatory spondylopathy, lumbar region (05/05/19) Physical Therapy Treatment Note PT-OP-A Visit Information Start: 12/21/17 16:51 Freq: Status: Active Protocol: Document 05/05/19 12:00 DCW (Rec: 05/05/19 12:43 DCW [id number]) Out-Patient Physical Therapy Visit Information Visit Information Visit Type Treatment Note Visit Start Time 12:00 Visit Stop Time 12:45 Total Visit Minutes 45 Visit Number 62 Number of FASHION DESIGNER Visits 0 Evaluation Information Evaluation Date 12/21/17 PT-OP-B Current Condition Start: 12/21/17 16:51 Freq: Status: Active Protocol: Document 03/27/18 14:30 DCW (Rec: 03/27/18 14:43 DCW [id number]) Current Condition Current Functional Impairments (Reported) Functional Limitations- ADL's Pain with standing for 10+ minutes Pain with sitting 30+ minutes Pain disturbs sleep Unable to drive 30+ minutes Functional Limitations- Mobility/Gait Pt reports he must drive from his house to the barn, which is ~100 yards away. 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 Personal Factors Other Personal Factors That May Effect Morbid Obesity, Neuropathy, Therapy/Recovery Phrenic nerve palsy, cervical spinal fusion PT-OP-C Subjective Start: 12/21/17 16:51 Freq: Status: Active Protocol: Document 05/05/19 12:00 DCW (Rec: 05/05/19 12:43 DCW [id number]) OP-PT Subjective Patient Comments Patient Comments Pt reports that he was getting out of his car last week, and his left hamstring felt like it was tearing off. Pt notes that it has been pretty tight and sore over the last few days. PT-OP-F Manual Assessment Start: 12/21/17 16:51 Freq: Status: Active Protocol: Document 03/25/19 16:00 DCW (Rec: 03/25/19 16:43 DCW [id number]) Manual Assessments Joint Mobility Assessment Joint Mobility Assessment P->A hypomobility and 2/5 - Pain with Wincing, tenderness in L1-L5 and bilateral SI joints PT-OP-J Posture/Palpation/Skin Start: 12/21/17 16:51 Freq: Status: Active Protocol: Document 03/25/19 16:00 DCW (Rec: 03/25/19 16:43 DCW [id number]) Palpation Assessment Location Four Palpation Location Gluteus Max Palpation Findings Soft Tissue Tightness,Spasm, Muscle Guarding,Tenderness Palpation Details Moderate Tone and Tenderness 2 /5 - Pain with Wincing Three Palpation Location Quadratus Lumborum Palpation Findings Soft Tissue Tightness,Spasm, Muscle Guarding,Tenderness Palpation Details Moderate Tone and Tenderness 2 /5 - Pain with Wincing Two Palpation Location Piriformis Palpation Findings Soft Tissue Tightness,Spasm, Muscle Guarding,Tenderness Palpation Details Moderate Tone and Tenderness 2 /5 - Pain with Wincing One Palpation Location Multifidi Palpation Findings Soft Tissue Tightness,Spasm, Muscle Guarding,Tenderness Palpation Details Mild Tone and Tenderness 1/5 - Complaint of Pain PT-OP-K Range of Motion Start: 12/21/17 16:51 Freq: Status: Active Protocol: Document 03/25/19 16:00 DCW (Rec: 03/25/19 16:43 DCW [id number]) Lumbar Spine Range of Motion Lumbar Spine Active Degrees Testing Position Standing Flexion 28 Extension 12 Lateral Flexion Left 62 Lateral Flexion Right 64 Comments Rotation tested secondary to pain Lateral Flexion measured in cm from fingertips to floor PT-OP-L Special Tests Start: 12/21/17 16:51 Freq: Status: Active Protocol: Document 03/25/19 16:00 DCW (Rec: 03/25/19 16:43 DCW [id number]) Special Tests Lumbar Spine Special Tests Standing Flexion Test Results Lumbar spine unable to flex more than 25 degrees Prone Knee Flexion Test Results Quad tightness Straight Leg Raise Test Results Moderate Bilateral pain at 45 degrees Prone Press Up Test Results Complaints of Pain PT-OP-Q Treatments Start: 12/21/17 16:51 Freq: Status: Active Protocol: Document 05/05/19 12:00 DCW (Rec: 05/05/19 12:43 DCW [id number]) Manual Therapy Treatment Soft Tissue Mobilization 7 Body Location left Hamstring Mobilization Type Strumming,Sustained Pressure, Trigger Point Release Intensity/Depth Deep Body Position Prone 6 Body Location Suboccipitals Mobilization Type Sustained Pressure Body Position Prone 5 Body Location Proximal Gastroc heads, bilateral Mobilization Type Instrument Assisted,Myofascial Release,Rolling,Strumming, Sustained Pressure,Trigger Point Release Intensity/Depth Moderate Body Position Prone 4 Body Location Lumbar Paravetebral Musculature Mobilization Type Cross-Friction,Instrument Assisted,Rolling,Strumming, Sustained Pressure,Trigger Point Release Intensity/Depth Moderate Body Position Prone 3 Body Location Piriformis Mobilization Type Myofascial Release 2 Body Location Quadratus Lumborum Mobilization Type Myofascial Release,Strumming, Sustained Pressure,Trigger Point Release Intensity/Depth Deep Body Position Prone 1 Body Location Multifidi Mobilization Type Myofascial Release,Strumming, Sustained Pressure,Trigger Point Release Intensity/Depth Moderate Body Position Prone Joint Mobilizations 1 Joint Lumbar 1-5 Direction P->A Grade III Body Position Prone PT-OP-R Modalities Start: 12/21/17 16:51 Freq: Status: Active Protocol: Document 02/18/19 15:15 DCW (Rec: 02/18/19 16:07 DCW [id number]) Ultrasound Therapy Treatment Right Lower Back Treatment Duration (minutes) 5 Patient Position Prone Coupling Medium Ultrasound Gel Frequency Setting (mHz) 1 Mode Setting Continuous Intensity Setting (w/cm2) 1.2 Left Lower Back Treatment Duration (minutes) 5 Patient Position Prone Coupling Medium Ultrasound Gel Frequency Setting (mHz) 1 Mode Setting Continuous Intensity Setting (w/cm2) 1.2 PT-OP-T Assessment and Plan Start: 12/21/17 16:51 Freq: Status: Active Protocol: Document 05/05/19 12:00 DCW (Rec: 05/05/19 12:43 DCW [id number]) Physical Therapy Assessment Impairments Impairments Activity Tolerance,Balance, Pain,Posture,ROM,Soft Tissue Mobility,Tone Goals Six Impairment Activity Tolerance Short Term Goal (STG) Pt to report ability to drive for 60 minutes with no increased pain STG Duration 01/24/19 - improving - 20 minutes Cold Storage Supervisor Goal (LTG) Pt to report ability to walk down to his barn from the house (100 yards) with no increased pain LTG Duration 02/23/19 - Improving - walk down and [facility] back Five Impairment Pain Short Term Goal (STG) Pt to report pain at worst 7/ 10 STG Duration 01/24/19 Assisted Goal (LTG) Pt to report pain at worst 4/ 10 LTG Duration 02/23/19 Four Impairment SLR Cold Storage Supervisor Goal (LTG) SLR to 50 degrees without increased pain LTG Duration 02/23/19 Three Impairment Joint Mobility Cold Storage Supervisor Goal (LTG) P->A mobility of L1-5 to WNL LTG Duration 02/23/19 - Improving Two Impairment Muscle Tone Assisted Goal (LTG) Multifidi, QL, Glute Max, and Piriformis tone to Mild LTG Duration 02/23/19/18 - Improving, all from severe->mod tone One Impairment Palpation Tenderness Cold Storage Supervisor Goal (LTG) Low back tenderness to palpation down to 1/5 - Complaint of pain LTG Duration 02/23/19 - Improving - down from 3/4 to 2/4 in all areas Assessment Summary Assessment Pt has less paraspinal tone today, but does have some increased tightness in his hamstring following what was likely a mild muscle pull. Physical Therapy Plan Frequency and Duration Frequency of Treatment 2x/Week Duration of Treatment 12 weeks Plan of Care Start Date 03/25/19 Plan of Care End Date 06/07/19 Therapeutic Interventions Therapeutic Interventions Aquatic Therapy,Home Exercise Program,Joint Mobilizations, Manual Therapy,Neuromuscular Re-education,Patient/Caregiver Education,Soft Tissue Mobilization,Therapeutic Exercises,Vestibular Rehabilitation Modalities Cold Pack/Ice Massage,Electric Stimulation,Hot Packs, Ultrasound Next Visit Focus/Plan Next Note Type Treatment Note Next Visit Plan Manual therapy for decreasing spasm, modalities (US, E-stim) .
--- NOTE | 2019-05-28 17:34 | PT.OTN ---
Current Diagnoses Unspecified inflammatory spondylopathy, lumbar region (05/28/19) Physical Therapy Treatment Note PT-OP-A Visit Information Start: 12/21/17 16:51 Freq: Status: Active Protocol: Document 05/28/19 16:45 DCW (Rec: 05/28/19 17:34 DCW [id number]) Out-Patient Physical Therapy Visit Information Visit Information Visit Type Treatment Note Visit Start Time 16:45 Visit Stop Time 17:30 Total Visit Minutes 45 Visit Number 64 Number of DIRECTOR OF STUDENT SERVICES Visits 0 Evaluation Information Evaluation Date 12/21/17 PT-OP-B Current Condition Start: 12/21/17 16:51 Freq: Status: Active Protocol: Document 03/27/18 14:30 DCW (Rec: 03/27/18 14:43 DCW [id number]) Current Condition Current Functional Impairments (Reported) Functional Limitations- ADL's Pain with standing for 10+ minutes Pain with sitting 30+ minutes Pain disturbs sleep Unable to drive 30+ minutes Functional Limitations- Mobility/Gait Pt reports he must drive from his house to the barn, which is ~100 yards away. 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 Personal Factors Other Personal Factors That May Effect Morbid Obesity, Neuropathy, Therapy/Recovery Phrenic nerve palsy, cervical spinal fusion PT-OP-C Subjective Start: 12/21/17 16:51 Freq: Status: Active Protocol: Document 05/28/19 16:45 DCW (Rec: 05/28/19 17:34 DCW [id number]) OP-PT Subjective Patient Comments Patient Comments Pt has obtained an AFO for his right ankle, in hopes to straighten out his foot during gait. Pt reports so far he is underwhelmed, does not think it is doing what it's supposed to. PT-OP-F Manual Assessment Start: 12/21/17 16:51 Freq: Status: Active Protocol: Document 03/25/19 16:00 DCW (Rec: 03/25/19 16:43 DCW [id number]) Manual Assessments Joint Mobility Assessment Joint Mobility Assessment P->A hypomobility and 2/5 - Pain with Wincing, tenderness in L1-L5 and bilateral SI joints PT-OP-J Posture/Palpation/Skin Start: 12/21/17 16:51 Freq: Status: Active Protocol: Document 03/25/19 16:00 DCW (Rec: 03/25/19 16:43 DCW [id number]) Palpation Assessment Location Four Palpation Location Gluteus Max Palpation Findings Soft Tissue Tightness,Spasm, Muscle Guarding,Tenderness Palpation Details Moderate Tone and Tenderness 2 /5 - Pain with Wincing Three Palpation Location Quadratus Lumborum Palpation Findings Soft Tissue Tightness,Spasm, Muscle Guarding,Tenderness Palpation Details Moderate Tone and Tenderness 2 /5 - Pain with Wincing Two Palpation Location Piriformis Palpation Findings Soft Tissue Tightness,Spasm, Muscle Guarding,Tenderness Palpation Details Moderate Tone and Tenderness 2 /5 - Pain with Wincing One Palpation Location Multifidi Palpation Findings Soft Tissue Tightness,Spasm, Muscle Guarding,Tenderness Palpation Details Mild Tone and Tenderness 1/5 - Complaint of Pain PT-OP-K Range of Motion Start: 12/21/17 16:51 Freq: Status: Active Protocol: Document 03/25/19 16:00 DCW (Rec: 03/25/19 16:43 DCW [id number]) Lumbar Spine Range of Motion Lumbar Spine Active Degrees Testing Position Standing Flexion 28 Extension 12 Lateral Flexion Left 62 Lateral Flexion Right 64 Comments Rotation tested secondary to pain Lateral Flexion measured in cm from fingertips to floor PT-OP-L Special Tests Start: 12/21/17 16:51 Freq: Status: Active Protocol: Document 03/25/19 16:00 DCW (Rec: 03/25/19 16:43 DCW [id number]) Special Tests Lumbar Spine Special Tests Standing Flexion Test Results Lumbar spine unable to flex more than 25 degrees Prone Knee Flexion Test Results Quad tightness Straight Leg Raise Test Results Moderate Bilateral pain at 45 degrees Prone Press Up Test Results Complaints of Pain PT-OP-Q Treatments Start: 12/21/17 16:51 Freq: Status: Active Protocol: Document 05/28/19 16:45 DCW (Rec: 05/28/19 17:34 DCW [id number]) Manual Therapy Treatment Soft Tissue Mobilization 7 Body Location left Hamstring Mobilization Type Strumming,Sustained Pressure, Trigger Point Release Intensity/Depth Deep Body Position Prone 6 Body Location Suboccipitals Mobilization Type Sustained Pressure Body Position Prone 5 Body Location Proximal Gastroc heads, bilateral Mobilization Type Instrument Assisted,Myofascial Release,Rolling,Strumming, Sustained Pressure,Trigger Point Release Intensity/Depth Moderate Body Position Prone 4 Body Location Lumbar Paravetebral Musculature Mobilization Type Cross-Friction,Instrument Assisted,Rolling,Strumming, Sustained Pressure,Trigger Point Release Intensity/Depth Moderate Body Position Prone 3 Body Location Piriformis Mobilization Type Myofascial Release 2 Body Location Quadratus Lumborum Mobilization Type Myofascial Release,Strumming, Sustained Pressure,Trigger Point Release Intensity/Depth Deep Body Position Prone 1 Body Location Multifidi Mobilization Type Myofascial Release,Strumming, Sustained Pressure,Trigger Point Release Intensity/Depth Moderate Body Position Prone Joint Mobilizations 1 Joint Lumbar 1-5 Direction P->A Grade III Body Position Prone PT-OP-R Modalities Start: 12/21/17 16:51 Freq: Status: Active Protocol: Document 02/18/19 15:15 DCW (Rec: 02/18/19 16:07 DCW [id number]) Ultrasound Therapy Treatment Right Lower Back Treatment Duration (minutes) 5 Patient Position Prone Coupling Medium Ultrasound Gel Frequency Setting (mHz) 1 Mode Setting Continuous Intensity Setting (w/cm2) 1.2 Left Lower Back Treatment Duration (minutes) 5 Patient Position Prone Coupling Medium Ultrasound Gel Frequency Setting (mHz) 1 Mode Setting Continuous Intensity Setting (w/cm2) 1.2 PT-OP-T Assessment and Plan Start: 12/21/17 16:51 Freq: Status: Active Protocol: Document 05/28/19 16:45 DCW (Rec: 05/28/19 17:34 DCW [id number]) Physical Therapy Assessment Impairments Impairments Activity Tolerance,Balance, Pain,Posture,ROM,Soft Tissue Mobility,Tone Goals Six Impairment Activity Tolerance Short Term Goal (STG) Pt to report ability to drive for 60 minutes with no increased pain STG Duration 01/24/19 - improving - 20 minutes Prison Goal (LTG) Pt to report ability to walk down to his barn from the house (100 yards) with no increased pain LTG Duration 02/23/19 - Improving - walk down and assisted back Five Impairment Pain Short Term Goal (STG) Pt to report pain at worst 7/ 10 STG Duration 01/24/19 Prison Goal (LTG) Pt to report pain at worst 4/ 10 LTG Duration 02/23/19 Four Impairment SLR Prison Goal (LTG) SLR to 50 degrees without increased pain LTG Duration 02/23/19 Three Impairment Joint Mobility Prison Goal (LTG) P->A mobility of L1-5 to WNL LTG Duration 02/23/19 - Improving Two Impairment Muscle Tone Prison Goal (LTG) Multifidi, QL, Glute Max, and Piriformis tone to Mild LTG Duration 02/23/19/18 - Improving, all from severe->mod tone One Impairment Palpation Tenderness Spanish Speaking Nanny Goal (LTG) Low back tenderness to palpation down to 1/5 - Complaint of pain LTG Duration 02/23/19 - Improving - down from 3/4 to 2/4 in all areas Assessment Summary Assessment Despite pt feeling like his AFO is not doing anything, he did appear to be walking with less antalgic gait today, and was standing up straighter than normal. Physical Therapy Plan Frequency and Duration Frequency of Treatment 2x/Week Duration of Treatment 12 weeks Plan of Care Start Date 03/25/19 Plan of Care End Date 06/07/19 Therapeutic Interventions Therapeutic Interventions Aquatic Therapy,Home Exercise Program,Joint Mobilizations, Manual Therapy,Neuromuscular Re-education,Patient/Caregiver Education,Soft Tissue Mobilization,Therapeutic Exercises,Vestibular Rehabilitation Modalities Cold Pack/Ice Massage,Electric Stimulation,Hot Packs, Ultrasound Next Visit Focus/Plan Next Note Type Treatment Note Next Visit Plan Manual therapy for decreasing spasm, modalities (US, E-stim) .
--- NOTE | 2019-06-05 12:51 | PT.OTN ---
Current Diagnoses Unspecified inflammatory spondylopathy, lumbar region (06/05/19) Physical Therapy Treatment Note PT-OP-A Visit Information Start: 12/21/17 16:51 Freq: Status: Active Protocol: Document 06/05/19 12:00 DCW (Rec: 06/05/19 12:51 DCW [id number]) Out-Patient Physical Therapy Visit Information Visit Information Visit Type Treatment Note Visit Start Time 12:00 Visit Stop Time 12:45 Total Visit Minutes 45 Visit Number 65 Number of BOTTLE WASHER MACHINE Visits 0 Evaluation Information Evaluation Date 12/21/17 PT-OP-B Current Condition Start: 12/21/17 16:51 Freq: Status: Active Protocol: Document 03/27/18 14:30 DCW (Rec: 03/27/18 14:43 DCW [id number]) Current Condition Current Functional Impairments (Reported) Functional Limitations- ADL's Pain with standing for 10+ minutes Pain with sitting 30+ minutes Pain disturbs sleep Unable to drive 30+ minutes Functional Limitations- Mobility/Gait Pt reports he must drive from his house to the barn, which is ~100 yards away. 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 Personal Factors Other Personal Factors That May Effect Morbid Obesity, Neuropathy, Therapy/Recovery Phrenic nerve palsy, cervical spinal fusion PT-OP-C Subjective Start: 12/21/17 16:51 Freq: Status: Active Protocol: Document 06/05/19 12:00 DCW (Rec: 06/05/19 12:51 DCW [id number]) OP-PT Subjective Patient Comments Patient Comments Pt not having any new concerns since last week, but he does come in today with wounds on his forearm, which are being followed by woundcare, from his puppy tearing his skin during play. PT-OP-F Manual Assessment Start: 12/21/17 16:51 Freq: Status: Active Protocol: Document 03/25/19 16:00 DCW (Rec: 03/25/19 16:43 DCW [id number]) Manual Assessments Joint Mobility Assessment Joint Mobility Assessment P->A hypomobility and 2/5 - Pain with Wincing, tenderness in L1-L5 and bilateral SI joints PT-OP-J Posture/Palpation/Skin Start: 12/21/17 16:51 Freq: Status: Active Protocol: Document 03/25/19 16:00 DCW (Rec: 03/25/19 16:43 DCW [id number]) Palpation Assessment Location Four Palpation Location Gluteus Max Palpation Findings Soft Tissue Tightness,Spasm, Muscle Guarding,Tenderness Palpation Details Moderate Tone and Tenderness 2 /5 - Pain with Wincing Three Palpation Location Quadratus Lumborum Palpation Findings Soft Tissue Tightness,Spasm, Muscle Guarding,Tenderness Palpation Details Moderate Tone and Tenderness 2 /5 - Pain with Wincing Two Palpation Location Piriformis Palpation Findings Soft Tissue Tightness,Spasm, Muscle Guarding,Tenderness Palpation Details Moderate Tone and Tenderness 2 /5 - Pain with Wincing One Palpation Location Multifidi Palpation Findings Soft Tissue Tightness,Spasm, Muscle Guarding,Tenderness Palpation Details Mild Tone and Tenderness 1/5 - Complaint of Pain PT-OP-K Range of Motion Start: 12/21/17 16:51 Freq: Status: Active Protocol: Document 03/25/19 16:00 DCW (Rec: 03/25/19 16:43 DCW [id number]) Lumbar Spine Range of Motion Lumbar Spine Active Degrees Testing Position Standing Flexion 28 Extension 12 Lateral Flexion Left 62 Lateral Flexion Right 64 Comments Rotation tested secondary to pain Lateral Flexion measured in cm from fingertips to floor PT-OP-L Special Tests Start: 12/21/17 16:51 Freq: Status: Active Protocol: Document 03/25/19 16:00 DCW (Rec: 03/25/19 16:43 DCW [id number]) Special Tests Lumbar Spine Special Tests Standing Flexion Test Results Lumbar spine unable to flex more than 25 degrees Prone Knee Flexion Test Results Quad tightness Straight Leg Raise Test Results Moderate Bilateral pain at 45 degrees Prone Press Up Test Results Complaints of Pain PT-OP-Q Treatments Start: 12/21/17 16:51 Freq: Status: Active Protocol: Document 06/05/19 12:00 DCW (Rec: 06/05/19 12:51 DCW [id number]) Manual Therapy Treatment Soft Tissue Mobilization 7 Body Location left Hamstring Mobilization Type Strumming,Sustained Pressure, Trigger Point Release Intensity/Depth Deep Body Position Prone 6 Body Location Suboccipitals Mobilization Type Sustained Pressure Body Position Prone 5 Body Location Proximal Gastroc heads, bilateral Mobilization Type Instrument Assisted,Myofascial Release,Rolling,Strumming, Sustained Pressure,Trigger Point Release Intensity/Depth Moderate Body Position Prone 4 Body Location Lumbar Paravetebral Musculature Mobilization Type Cross-Friction,Instrument Assisted,Rolling,Strumming, Sustained Pressure,Trigger Point Release Intensity/Depth Moderate Body Position Prone 3 Body Location Piriformis Mobilization Type Myofascial Release 2 Body Location Quadratus Lumborum Mobilization Type Myofascial Release,Strumming, Sustained Pressure,Trigger Point Release Intensity/Depth Deep Body Position Prone 1 Body Location Multifidi Mobilization Type Myofascial Release,Strumming, Sustained Pressure,Trigger Point Release Intensity/Depth Moderate Body Position Prone Joint Mobilizations 1 Joint Lumbar 1-5 Direction P->A Grade III Body Position Prone PT-OP-R Modalities Start: 12/21/17 16:51 Freq: Status: Active Protocol: Document 02/18/19 15:15 DCW (Rec: 02/18/19 16:07 DCW [id number]) Ultrasound Therapy Treatment Right Lower Back Treatment Duration (minutes) 5 Patient Position Prone Coupling Medium Ultrasound Gel Frequency Setting (mHz) 1 Mode Setting Continuous Intensity Setting (w/cm2) 1.2 Left Lower Back Treatment Duration (minutes) 5 Patient Position Prone Coupling Medium Ultrasound Gel Frequency Setting (mHz) 1 Mode Setting Continuous Intensity Setting (w/cm2) 1.2 PT-OP-T Assessment and Plan Start: 12/21/17 16:51 Freq: Status: Active Protocol: Document 06/05/19 12:00 DCW (Rec: 06/05/19 12:51 DCW [id number]) Physical Therapy Assessment Impairments Impairments Activity Tolerance,Balance, Pain,Posture,ROM,Soft Tissue Mobility,Tone Goals Six Impairment Activity Tolerance Short Term Goal (STG) Pt to report ability to drive for 60 minutes with no increased pain STG Duration 01/24/19 - improving - 20 minutes Intermediate Goal (LTG) Pt to report ability to walk down to his barn from the house (100 yards) with no increased pain LTG Duration 02/23/19 - Improving - walk down and residential back Five Impairment Pain Short Term Goal (STG) Pt to report pain at worst 7/ 10 STG Duration 01/24/19 Sales And Merchandising Associate Goal (LTG) Pt to report pain at worst 4/ 10 LTG Duration 02/23/19 Four Impairment SLR Intermediate Goal (LTG) SLR to 50 degrees without increased pain LTG Duration 02/23/19 Three Impairment Joint Mobility Intermediate Goal (LTG) P->A mobility of L1-5 to WNL LTG Duration 02/23/19 - Improving Two Impairment Muscle Tone Intermediate Goal (LTG) Multifidi, QL, Glute Max, and Piriformis tone to Mild LTG Duration 02/23/19/18 - Improving, all from severe->mod tone One Impairment Palpation Tenderness Intermediate Goal (LTG) Low back tenderness to palpation down to 1/5 - Complaint of pain LTG Duration 02/23/19 - Improving - down from 3/4 to 2/4 in all areas Assessment Summary Assessment Pt becoming concerned regarding about his declining balance and inability to get himself up from the floor. Pt plans to consult his PCP for a new referral for balance training. Physical Therapy Plan Frequency and Duration Frequency of Treatment 2x/Week Duration of Treatment 12 weeks Plan of Care Start Date 03/25/19 Plan of Care End Date 06/07/19 Therapeutic Interventions Therapeutic Interventions Aquatic Therapy,Home Exercise Program,Joint Mobilizations, Manual Therapy,Neuromuscular Re-education,Patient/Caregiver Education,Soft Tissue Mobilization,Therapeutic Exercises,Vestibular Rehabilitation Modalities Cold Pack/Ice Massage,Electric Stimulation,Hot Packs, Ultrasound Next Visit Focus/Plan Next Note Type Re-Evaluation Next Visit Plan Manual therapy for decreasing spasm, modalities (US, E-stim) . Re-eval for balance if pt arrives with new referral
--- NOTE | 2019-06-09 17:48 | PT.OTN ---
Current Diagnoses Unspecified inflammatory spondylopathy, lumbar region (06/09/19) Physical Therapy Treatment Note PT-OP-A Visit Information Start: 12/21/17 16:51 Freq: Status: Active Protocol: Document 06/09/19 15:15 DCW (Rec: 06/09/19 17:48 DCW [id number]) Out-Patient Physical Therapy Visit Information Visit Information Visit Type Treatment Note Visit Start Time 15:15 Visit Stop Time 16:00 Total Visit Minutes 45 Visit Number 66 Number of BRICKLAYER HELPER Visits 0 Evaluation Information Evaluation Date 12/21/17 PT-OP-B Current Condition Start: 12/21/17 16:51 Freq: Status: Active Protocol: Document 03/27/18 14:30 DCW (Rec: 03/27/18 14:43 DCW [id number]) Current Condition Current Functional Impairments (Reported) Functional Limitations- ADL's Pain with standing for 10+ minutes Pain with sitting 30+ minutes Pain disturbs sleep Unable to drive 30+ minutes Functional Limitations- Mobility/Gait Pt reports he must drive from his house to the barn, which is ~100 yards away. 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 Personal Factors Other Personal Factors That May Effect Morbid Obesity, Neuropathy, Therapy/Recovery Phrenic nerve palsy, cervical spinal fusion PT-OP-C Subjective Start: 12/21/17 16:51 Freq: Status: Active Protocol: Document 06/09/19 15:15 DCW (Rec: 06/09/19 17:48 DCW [id number]) OP-PT Subjective Patient Comments Patient Comments Pt feeling better today, demonstrates improved lumbar ROM and decreased tightness and tenderness. PT-OP-F Manual Assessment Start: 12/21/17 16:51 Freq: Status: Active Protocol: Document 06/09/19 15:15 DCW (Rec: 06/09/19 17:38 DCW [id number]) Manual Assessments Joint Mobility Assessment Joint Mobility Assessment P->A hypomobility and 2/5 - Pain with Wincing, tenderness in L1-L5 and bilateral SI joints PT-OP-J Posture/Palpation/Skin Start: 12/21/17 16:51 Freq: Status: Active Protocol: Document 06/09/19 15:15 DCW (Rec: 06/09/19 17:38 DCW [id number]) Palpation Assessment Location Four Palpation Location Gluteus Max Palpation Findings Soft Tissue Tightness,Spasm, Muscle Guarding,Tenderness Palpation Details Moderate Tone and Tenderness 1 /5 - Complaint of pain Three Palpation Location Quadratus Lumborum Palpation Findings Soft Tissue Tightness,Spasm, Muscle Guarding,Tenderness Palpation Details Moderate Tone and Tenderness 2 /5 - Pain with Wincing Two Palpation Location Piriformis Palpation Findings Soft Tissue Tightness,Spasm, Muscle Guarding,Tenderness Palpation Details Moderate Tone and Tenderness 2 /5 - Pain with Wincing One Palpation Location Multifidi Palpation Findings Soft Tissue Tightness,Spasm, Muscle Guarding,Tenderness Palpation Details Mild Tone and Tenderness 1/5 - Complaint of Pain PT-OP-K Range of Motion Start: 12/21/17 16:51 Freq: Status: Active Protocol: Document 06/09/19 15:15 DCW (Rec: 06/09/19 17:38 DCW [id number]) Lumbar Spine Range of Motion Lumbar Spine Active Degrees Testing Position Standing Flexion 35 Extension 14 Lateral Flexion Left 59 Lateral Flexion Right 60 Comments Lateral Flexion measured in cm from fingertips to floor PT-OP-L Special Tests Start: 12/21/17 16:51 Freq: Status: Active Protocol: Document 06/09/19 15:15 DCW (Rec: 06/09/19 17:38 DCW [id number]) Special Tests Lumbar Spine Special Tests Standing Flexion Test Results Lumbar spine unable to flex more than 35 degrees Prone Knee Flexion Test Results Quad tightness Straight Leg Raise Test Results Moderate Bilateral pain at 45 degrees Prone Press Up Test Results Complaints of Pain PT-OP-Q Treatments Start: 12/21/17 16:51 Freq: Status: Active Protocol: Document 06/09/19 15:15 DCW (Rec: 06/09/19 17:48 DCW [id number]) Manual Therapy Treatment Soft Tissue Mobilization 7 Body Location left Hamstring Mobilization Type Strumming,Sustained Pressure, Trigger Point Release Intensity/Depth Deep Body Position Prone 6 Body Location Suboccipitals Mobilization Type Sustained Pressure Body Position Prone 5 Body Location Proximal Gastroc heads, bilateral Mobilization Type Instrument Assisted,Myofascial Release,Rolling,Strumming, Sustained Pressure,Trigger Point Release Intensity/Depth Moderate Body Position Prone 4 Body Location Lumbar Paravetebral Musculature Mobilization Type Cross-Friction,Instrument Assisted,Rolling,Strumming, Sustained Pressure,Trigger Point Release Intensity/Depth Moderate Body Position Prone 3 Body Location Piriformis Mobilization Type Myofascial Release 2 Body Location Quadratus Lumborum Mobilization Type Myofascial Release,Strumming, Sustained Pressure,Trigger Point Release Intensity/Depth Deep Body Position Prone 1 Body Location Multifidi Mobilization Type Myofascial Release,Strumming, Sustained Pressure,Trigger Point Release Intensity/Depth Moderate Body Position Prone Joint Mobilizations 1 Joint Lumbar 1-5 Direction P->A Grade III Body Position Prone PT-OP-R Modalities Start: 12/21/17 16:51 Freq: Status: Active Protocol: Document 02/18/19 15:15 DCW (Rec: 02/18/19 16:07 DCW [id number]) Ultrasound Therapy Treatment Right Lower Back Treatment Duration (minutes) 5 Patient Position Prone Coupling Medium Ultrasound Gel Frequency Setting (mHz) 1 Mode Setting Continuous Intensity Setting (w/cm2) 1.2 Left Lower Back Treatment Duration (minutes) 5 Patient Position Prone Coupling Medium Ultrasound Gel Frequency Setting (mHz) 1 Mode Setting Continuous Intensity Setting (w/cm2) 1.2 PT-OP-T Assessment and Plan Start: 12/21/17 16:51 Freq: Status: Active Protocol: Document 06/09/19 15:15 DCW (Rec: 06/09/19 17:48 DCW [id number]) Physical Therapy Assessment Impairments Impairments Activity Tolerance,Balance, Pain,Posture,ROM,Soft Tissue Mobility,Tone Goals Six Impairment Activity Tolerance Short Term Goal (STG) Pt to report ability to drive for 60 minutes with no increased pain STG Duration 07/09/19 - improving - 30 minutes Die Cast Technician Goal (LTG) Pt to report ability to walk down to his barn from the house (100 yards) with no increased pain LTG Duration 08/09/19 - Improving Five Impairment Pain Short Term Goal (STG) Pt to report pain at worst 7/ 10 STG Duration Met Alf Goal (LTG) Pt to report pain at worst 4/ 10 LTG Duration 08/09/19 Four Impairment SLR Alf Goal (LTG) SLR to 50 degrees without increased pain LTG Duration 08/09/19 - Improving Three Impairment Joint Mobility Die Cast Technician Goal (LTG) P->A mobility of L1-5 to WNL LTG Duration 08/09/19 - Improving Two Impairment Muscle Tone Die Cast Technician Goal (LTG) Multifidi, QL, Glute Max, and Piriformis tone to Mild LTG Duration 08/09/19 - Improving One Impairment Palpation Tenderness Die Cast Technician Goal (LTG) Low back tenderness to palpation down to 1/5 - Complaint of pain LTG Duration 08/09/19 - Improving - some down to 1/ Assessment Summary Assessment Pt slowly improving to baseline. Pt able to walk with an improved upright posture. Pt has had a decrease in overall tone, and his tolerance to activity is improving. Pt expressed interest in getting a new referral to focus on balance and getting himself up from the ground. Physical Therapy Plan Frequency and Duration Frequency of Treatment 2x/Week Duration of Treatment 12 weeks Plan of Care Start Date 06/09/19 Plan of Care End Date 09/01/19 Therapeutic Interventions Therapeutic Interventions Aquatic Therapy,Home Exercise Program,Joint Mobilizations, Manual Therapy,Neuromuscular Re-education,Patient/Caregiver Education,Soft Tissue Mobilization,Therapeutic Exercises,Vestibular Rehabilitation Modalities Cold Pack/Ice Massage,Electric Stimulation,Hot Packs, Ultrasound Next Visit Focus/Plan Next Note Type Treatment Note Next Visit Plan Manual therapy for decreasing spasm, modalities (US, E-stim) . Re-eval for balance if pt arrives with new referral
--- NOTE | 2019-06-09 17:49 | PT.OPPOC ---
Current Diagnoses Unspecified inflammatory spondylopathy, lumbar region (06/09/19) Visit Care Team Role Provider Type Jhon Taylor MD Family Provider Physician Primary Care Provider Specialty: Internal Medicine Address: [address] [place] [address], [id number] Email: [email or web address] Hay Wagner DO Attending Provider Physician Specialty: Physiatry Pain Management Address: [facility] [place], [address] Email: [email or web address] Plan Of Care PT-OP-T Assessment and Plan Start: 12/21/17 16:51 Freq: Status: Active Protocol: Document 06/09/19 15:15 DCW (Rec: 06/09/19 17:48 DCW [id number]) Physical Therapy Assessment Impairments Impairments Activity Tolerance,Balance, Pain,Posture,ROM,Soft Tissue Mobility,Tone Goals Six Impairment Activity Tolerance Short Term Goal (STG) Pt to report ability to drive for 60 minutes with no increased pain STG Duration 07/09/19 - improving - 30 minutes Fpc Goal (LTG) Pt to report ability to walk down to his barn from the house (100 yards) with no increased pain LTG Duration 08/09/19 - Improving Five Impairment Pain Short Term Goal (STG) Pt to report pain at worst 7/ 10 STG Duration Met Bank Officer Goal (LTG) Pt to report pain at worst 4/ 10 LTG Duration 08/09/19 Four Impairment SLR Bank Officer Goal (LTG) SLR to 50 degrees without increased pain LTG Duration 08/09/19 - Improving Three Impairment Joint Mobility Bank Officer Goal (LTG) P->A mobility of L1-5 to WNL LTG Duration 08/09/19 - Improving Two Impairment Muscle Tone Fpc Goal (LTG) Multifidi, QL, Glute Max, and Piriformis tone to Mild LTG Duration 08/09/19 - Improving One Impairment Palpation Tenderness Fpc Goal (LTG) Low back tenderness to palpation down to 08/10 - Complaint of pain LTG Duration 08/09/19 - Improving - some down to 1/4 Assessment Summary Assessment Pt slowly improving to baseline. Pt able to walk with an improved upright posture. Pt has had a decrease in overall tone, and his tolerance to activity is improving. Pt expressed interest in getting a new referral to focus on balance and getting himself up from the ground. Physical Therapy Plan Frequency and Duration Frequency of Treatment 2x/Week Duration of Treatment 12 weeks Plan of Care Start Date 06/09/19 Plan of Care End Date 09/01/19 Therapeutic Interventions Therapeutic Interventions Aquatic Therapy,Home Exercise Program,Joint Mobilizations, Manual Therapy,Neuromuscular Re-education,Patient/Caregiver Education,Soft Tissue Mobilization,Therapeutic Exercises,Vestibular Rehabilitation Modalities Cold Pack/Ice Massage,Electric Stimulation,Hot Packs, Ultrasound Next Visit Focus/Plan Next Note Type Treatment Note Next Visit Plan Manual therapy for decreasing spasm, modalities (US, E-stim) . Re-eval for balance if pt arrives with new referral Plan of Care Dates Plan of Care Start Date 06/09/19 Plan of Care End Date 09/01/19
--- NOTE | 2019-06-11 12:47 | PT.OTN ---
Current Diagnoses Unspecified inflammatory spondylopathy, lumbar region (06/11/19) Physical Therapy Treatment Note PT-OP-A Visit Information Start: 12/21/17 16:51 Freq: Status: Active Protocol: Document 06/11/19 12:00 DCW (Rec: 06/11/19 12:46 DCW [id number]) Out-Patient Physical Therapy Visit Information Visit Information Visit Type Treatment Note Visit Start Time 12:00 Visit Stop Time 12:45 Total Visit Minutes 45 Visit Number 67 Number of COLLAR POINTER Visits 0 Evaluation Information Evaluation Date 12/21/17 PT-OP-B Current Condition Start: 12/21/17 16:51 Freq: Status: Active Protocol: Document 03/27/18 14:30 DCW (Rec: 03/27/18 14:43 DCW [id number]) Current Condition Current Functional Impairments (Reported) Functional Limitations- ADL's Pain with standing for 10+ minutes Pain with sitting 30+ minutes Pain disturbs sleep Unable to drive 30+ minutes Functional Limitations- Mobility/Gait Pt reports he must drive from his house to the barn, which is ~100 yards away. 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 Personal Factors Other Personal Factors That May Effect Morbid Obesity, Neuropathy, Therapy/Recovery Phrenic nerve palsy, cervical spinal fusion PT-OP-C Subjective Start: 12/21/17 16:51 Freq: Status: Active Protocol: Document 06/11/19 12:00 DCW (Rec: 06/11/19 12:46 DCW [id number]) OP-PT Subjective Patient Comments Patient Comments As bad as I'm feeling today, I'm really happy I was able to get this appointment scheduled. PT-OP-F Manual Assessment Start: 12/21/17 16:51 Freq: Status: Active Protocol: Document 06/09/19 15:15 DCW (Rec: 06/09/19 17:38 DCW [id number]) Manual Assessments Joint Mobility Assessment Joint Mobility Assessment P->A hypomobility and 2/5 - Pain with Wincing, tenderness in L1-L5 and bilateral SI joints PT-OP-J Posture/Palpation/Skin Start: 12/21/17 16:51 Freq: Status: Active Protocol: Document 06/09/19 15:15 DCW (Rec: 06/09/19 17:38 DCW [id number]) Palpation Assessment Location Four Palpation Location Gluteus Max Palpation Findings Soft Tissue Tightness,Spasm, Muscle Guarding,Tenderness Palpation Details Moderate Tone and Tenderness 1 /5 - Complaint of pain Three Palpation Location Quadratus Lumborum Palpation Findings Soft Tissue Tightness,Spasm, Muscle Guarding,Tenderness Palpation Details Moderate Tone and Tenderness 2 /5 - Pain with Wincing Two Palpation Location Piriformis Palpation Findings Soft Tissue Tightness,Spasm, Muscle Guarding,Tenderness Palpation Details Moderate Tone and Tenderness 2 /5 - Pain with Wincing One Palpation Location Multifidi Palpation Findings Soft Tissue Tightness,Spasm, Muscle Guarding,Tenderness Palpation Details Mild Tone and Tenderness 1/5 - Complaint of Pain PT-OP-K Range of Motion Start: 12/21/17 16:51 Freq: Status: Active Protocol: Document 06/09/19 15:15 DCW (Rec: 06/09/19 17:38 DCW [id number]) Lumbar Spine Range of Motion Lumbar Spine Active Degrees Testing Position Standing Flexion 35 Extension 14 Lateral Flexion Left 59 Lateral Flexion Right 60 Comments Lateral Flexion measured in cm from fingertips to floor PT-OP-L Special Tests Start: 12/21/17 16:51 Freq: Status: Active Protocol: Document 06/09/19 15:15 DCW (Rec: 06/09/19 17:38 DCW [id number]) Special Tests Lumbar Spine Special Tests Standing Flexion Test Results Lumbar spine unable to flex more than 35 degrees Prone Knee Flexion Test Results Quad tightness Straight Leg Raise Test Results Moderate Bilateral pain at 45 degrees Prone Press Up Test Results Complaints of Pain PT-OP-Q Treatments Start: 12/21/17 16:51 Freq: Status: Active Protocol: Document 06/11/19 12:00 DCW (Rec: 06/11/19 12:46 DCW [id number]) Manual Therapy Treatment Soft Tissue Mobilization 7 Body Location left Hamstring Mobilization Type Strumming,Sustained Pressure, Trigger Point Release Intensity/Depth Deep Body Position Prone 6 Body Location Suboccipitals Mobilization Type Sustained Pressure Body Position Prone 5 Body Location Proximal Gastroc heads, bilateral Mobilization Type Instrument Assisted,Myofascial Release,Rolling,Strumming, Sustained Pressure,Trigger Point Release Intensity/Depth Moderate Body Position Prone 4 Body Location Lumbar Paravetebral Musculature Mobilization Type Cross-Friction,Instrument Assisted,Rolling,Strumming, Sustained Pressure,Trigger Point Release Intensity/Depth Moderate Body Position Prone 3 Body Location Piriformis Mobilization Type Myofascial Release 2 Body Location Quadratus Lumborum Mobilization Type Myofascial Release,Strumming, Sustained Pressure,Trigger Point Release Intensity/Depth Deep Body Position Prone 1 Body Location Multifidi Mobilization Type Myofascial Release,Strumming, Sustained Pressure,Trigger Point Release Intensity/Depth Moderate Body Position Prone Joint Mobilizations 1 Joint Lumbar 1-5 Direction P->A Grade III Body Position Prone PT-OP-R Modalities Start: 12/21/17 16:51 Freq: Status: Active Protocol: Document 02/18/19 15:15 DCW (Rec: 02/18/19 16:07 DCW [id number]) Ultrasound Therapy Treatment Right Lower Back Treatment Duration (minutes) 5 Patient Position Prone Coupling Medium Ultrasound Gel Frequency Setting (mHz) 1 Mode Setting Continuous Intensity Setting (w/cm2) 1.2 Left Lower Back Treatment Duration (minutes) 5 Patient Position Prone Coupling Medium Ultrasound Gel Frequency Setting (mHz) 1 Mode Setting Continuous Intensity Setting (w/cm2) 1.2 PT-OP-T Assessment and Plan Start: 12/21/17 16:51 Freq: Status: Active Protocol: Document 06/11/19 12:00 DCW (Rec: 06/11/19 12:46 DCW [id number]) Physical Therapy Assessment Impairments Impairments Activity Tolerance,Balance, Pain,Posture,ROM,Soft Tissue Mobility,Tone Goals Six Impairment Activity Tolerance Short Term Goal (STG) Pt to report ability to drive for 60 minutes with no increased pain STG Duration 07/09/19 - improving - 30 minutes Detention Goal (LTG) Pt to report ability to walk down to his barn from the house (100 yards) with no increased pain LTG Duration 08/09/19 - Improving Five Impairment Pain Short Term Goal (STG) Pt to report pain at worst 7/ 10 STG Duration Met Grill Cook Goal (LTG) Pt to report pain at worst 4/ 10 LTG Duration 08/09/19 Four Impairment SLR Detention Goal (LTG) SLR to 50 degrees without increased pain LTG Duration 08/09/19 - Improving Three Impairment Joint Mobility Detention Goal (LTG) P->A mobility of L1-5 to WNL LTG Duration 08/09/19 - Improving Two Impairment Muscle Tone Grill Cook Goal (LTG) Multifidi, QL, Glute Max, and Piriformis tone to Mild LTG Duration 08/09/19 - Improving One Impairment Palpation Tenderness Detention Goal (LTG) Low back tenderness to palpation down to 1/5 - Complaint of pain LTG Duration 08/09/19 - Improving - some down to / Assessment Summary Assessment Pt displayed less tone throughout his thoracic paraspinals today, however had increased lateral gastroc tone on his left side. Physical Therapy Plan Frequency and Duration Frequency of Treatment 2x/Week Duration of Treatment 12 weeks Plan of Care Start Date 06/09/19 Plan of Care End Date 09/01/19 Therapeutic Interventions Therapeutic Interventions Aquatic Therapy,Home Exercise Program,Joint Mobilizations, Manual Therapy,Neuromuscular Re-education,Patient/Caregiver Education,Soft Tissue Mobilization,Therapeutic Exercises,Vestibular Rehabilitation Modalities Cold Pack/Ice Massage,Electric Stimulation,Hot Packs, Ultrasound Next Visit Focus/Plan Next Note Type Treatment Note Next Visit Plan Manual therapy for decreasing spasm, modalities (US, E-stim) . Re-eval for balance if pt arrives with new referral
--- NOTE | 2019-06-26 16:14 | PT.OTN ---
Current Diagnoses Unspecified inflammatory spondylopathy, lumbar region (06/26/19) Physical Therapy Treatment Note PT-OP-A Visit Information Start: 12/21/17 16:51 Freq: Status: Active Protocol: Document 06/26/19 15:15 DCW (Rec: 06/26/19 16:14 DCW [id number]) Out-Patient Physical Therapy Visit Information Visit Information Visit Type Treatment Note Visit Start Time 15:15 Visit Stop Time 16:00 Total Visit Minutes 45 Visit Number 68 Number of TAX ACCOUNTING MANAGER Visits 0 Evaluation Information Evaluation Date 12/21/17 PT-OP-B Current Condition Start: 12/21/17 16:51 Freq: Status: Active Protocol: Document 03/27/18 14:30 DCW (Rec: 03/27/18 14:43 DCW [id number]) Current Condition Current Functional Impairments (Reported) Functional Limitations- ADL's Pain with standing for 10+ minutes Pain with sitting 30+ minutes Pain disturbs sleep Unable to drive 30+ minutes Functional Limitations- Mobility/Gait Pt reports he must drive from his house to the barn, which is ~100 yards away. 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 Personal Factors Other Personal Factors That May Effect Morbid Obesity, Neuropathy, Therapy/Recovery Phrenic nerve palsy, cervical spinal fusion PT-OP-C Subjective Start: 12/21/17 16:51 Freq: Status: Active Protocol: Document 06/26/19 15:15 DCW (Rec: 06/26/19 16:14 DCW [id number]) OP-PT Subjective Patient Comments Patient Comments I actualy haven't been too bad recently. Bernard was very happy with how loose I was, said he was able to get a treatment up a little higher than he had been. PT-OP-F Manual Assessment Start: 12/21/17 16:51 Freq: Status: Active Protocol: Document 06/09/19 15:15 DCW (Rec: 06/09/19 17:38 DCW [id number]) Manual Assessments Joint Mobility Assessment Joint Mobility Assessment P->A hypomobility and 2/5 - Pain with Wincing, tenderness in L1-L5 and bilateral SI joints PT-OP-J Posture/Palpation/Skin Start: 12/21/17 16:51 Freq: Status: Active Protocol: Document 06/09/19 15:15 DCW (Rec: 06/09/19 17:38 DCW [id number]) Palpation Assessment Location Four Palpation Location Gluteus Max Palpation Findings Soft Tissue Tightness,Spasm, Muscle Guarding,Tenderness Palpation Details Moderate Tone and Tenderness 1 /5 - Complaint of pain Three Palpation Location Quadratus Lumborum Palpation Findings Soft Tissue Tightness,Spasm, Muscle Guarding,Tenderness Palpation Details Moderate Tone and Tenderness 2 /5 - Pain with Wincing Two Palpation Location Piriformis Palpation Findings Soft Tissue Tightness,Spasm, Muscle Guarding,Tenderness Palpation Details Moderate Tone and Tenderness 2 /5 - Pain with Wincing One Palpation Location Multifidi Palpation Findings Soft Tissue Tightness,Spasm, Muscle Guarding,Tenderness Palpation Details Mild Tone and Tenderness 1/5 - Complaint of Pain PT-OP-K Range of Motion Start: 12/21/17 16:51 Freq: Status: Active Protocol: Document 06/09/19 15:15 DCW (Rec: 06/09/19 17:38 DCW [id number]) Lumbar Spine Range of Motion Lumbar Spine Active Degrees Testing Position Standing Flexion 35 Extension 14 Lateral Flexion Left 59 Lateral Flexion Right 60 Comments Lateral Flexion measured in cm from fingertips to floor PT-OP-L Special Tests Start: 12/21/17 16:51 Freq: Status: Active Protocol: Document 06/09/19 15:15 DCW (Rec: 06/09/19 17:38 DCW [id number]) Special Tests Lumbar Spine Special Tests Standing Flexion Test Results Lumbar spine unable to flex more than 35 degrees Prone Knee Flexion Test Results Quad tightness Straight Leg Raise Test Results Moderate Bilateral pain at 45 degrees Prone Press Up Test Results Complaints of Pain PT-OP-Q Treatments Start: 12/21/17 16:51 Freq: Status: Active Protocol: Document 06/26/19 15:15 DCW (Rec: 06/26/19 16:14 DCW [id number]) Therapeutic Exercises Sitting Exercises 1 Sitting Exercise Name Lateral lumbar flexion Side bilateral Manual Therapy Treatment Soft Tissue Mobilization 7 Body Location left Hamstring Mobilization Type Strumming,Sustained Pressure, Trigger Point Release Intensity/Depth Deep Body Position Prone 6 Body Location Suboccipitals Mobilization Type Sustained Pressure Body Position Prone 5 Body Location Proximal Gastroc heads, bilateral Mobilization Type Instrument Assisted,Myofascial Release,Rolling,Strumming, Sustained Pressure,Trigger Point Release Intensity/Depth Moderate Body Position Prone 4 Body Location Lumbar Paravetebral Musculature Mobilization Type Cross-Friction,Instrument Assisted,Rolling,Strumming, Sustained Pressure,Trigger Point Release Intensity/Depth Moderate Body Position Prone 3 Body Location Piriformis Mobilization Type Myofascial Release 2 Body Location Quadratus Lumborum Mobilization Type Myofascial Release,Strumming, Sustained Pressure,Trigger Point Release Intensity/Depth Deep Body Position Prone 1 Body Location Multifidi Mobilization Type Myofascial Release,Strumming, Sustained Pressure,Trigger Point Release Intensity/Depth Moderate Body Position Prone Joint Mobilizations 1 Joint Lumbar 1-5 Direction P->A Grade III Body Position Prone PT-OP-R Modalities Start: 12/21/17 16:51 Freq: Status: Active Protocol: Document 02/18/19 15:15 DCW (Rec: 02/18/19 16:07 DCW [id number]) Ultrasound Therapy Treatment Right Lower Back Treatment Duration (minutes) 5 Patient Position Prone Coupling Medium Ultrasound Gel Frequency Setting (mHz) 1 Mode Setting Continuous Intensity Setting (w/cm2) 1.2 Left Lower Back Treatment Duration (minutes) 5 Patient Position Prone Coupling Medium Ultrasound Gel Frequency Setting (mHz) 1 Mode Setting Continuous Intensity Setting (w/cm2) 1.2 PT-OP-T Assessment and Plan Start: 12/21/17 16:51 Freq: Status: Active Protocol: Document 06/26/19 15:15 DCW (Rec: 06/26/19 16:14 DCW [id number]) Physical Therapy Assessment Impairments Impairments Activity Tolerance,Balance, Pain,Posture,ROM,Soft Tissue Mobility,Tone Goals Six Impairment Activity Tolerance Short Term Goal (STG) Pt to report ability to drive for 60 minutes with no increased pain STG Duration 07/09/19 - improving - 30 minutes Detention Goal (LTG) Pt to report ability to walk down to his barn from the house (100 yards) with no increased pain LTG Duration 08/09/19 - Improving Five Impairment Pain Short Term Goal (STG) Pt to report pain at worst 7/ 10 STG Duration Met Sales Development Manager Goal (LTG) Pt to report pain at worst 4/ 10 LTG Duration 08/09/19 Four Impairment SLR Detention Goal (LTG) SLR to 50 degrees without increased pain LTG Duration 08/09/19 - Improving Three Impairment Joint Mobility Detention Goal (LTG) P->A mobility of L1-5 to WNL LTG Duration 08/09/19 - Improving Two Impairment Muscle Tone Detention Goal (LTG) Multifidi, QL, Glute Max, and Piriformis tone to Mild LTG Duration 08/09/19 - Improving One Impairment Palpation Tenderness Detention Goal (LTG) Low back tenderness to palpation down to 1/5 - Complaint of pain LTG Duration 08/09/19 - Improving - some down to 1/4 Assessment Summary Assessment Pt showing decreased tone and tenderness today, appears to be more mobile and is able to stand up straighter with no forward lean. Physical Therapy Plan Frequency and Duration Frequency of Treatment 2x/Week Duration of Treatment 12 weeks Plan of Care Start Date 06/09/19 Plan of Care End Date 09/01/19 Therapeutic Interventions Therapeutic Interventions Aquatic Therapy,Home Exercise Program,Joint Mobilizations, Manual Therapy,Neuromuscular Re-education,Patient/Caregiver Education,Soft Tissue Mobilization,Therapeutic Exercises,Vestibular Rehabilitation Modalities Cold Pack/Ice Massage,Electric Stimulation,Hot Packs, Ultrasound Next Visit Focus/Plan Next Note Type Treatment Note Next Visit Plan Manual therapy for decreasing spasm, modalities (US, E-stim) . Re-eval for balance if pt arrives with new referral
--- NOTE | 2019-06-30 16:11 | PT.OTN ---
Current Diagnoses Unspecified inflammatory spondylopathy, lumbar region (06/30/19) Physical Therapy Treatment Note PT-OP-A Visit Information Start: 12/21/17 16:51 Freq: Status: Active Protocol: Document 06/30/19 15:15 DCW (Rec: 06/30/19 16:11 DCW [id number]) Out-Patient Physical Therapy Visit Information Visit Information Visit Type Treatment Note Visit Start Time 15:15 Visit Stop Time 16:00 Total Visit Minutes 45 Visit Number 69 Number of STOPPER SETTER Visits 0 Evaluation Information Evaluation Date 12/21/17 PT-OP-B Current Condition Start: 12/21/17 16:51 Freq: Status: Active Protocol: Document 03/27/18 14:30 DCW (Rec: 03/27/18 14:43 DCW [id number]) Current Condition Current Functional Impairments (Reported) Functional Limitations- ADL's Pain with standing for 10+ minutes Pain with sitting 30+ minutes Pain disturbs sleep Unable to drive 30+ minutes Functional Limitations- Mobility/Gait Pt reports he must drive from his house to the barn, which is ~100 yards away. 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 Personal Factors Other Personal Factors That May Effect Morbid Obesity, Neuropathy, Therapy/Recovery Phrenic nerve palsy, cervical spinal fusion PT-OP-C Subjective Start: 12/21/17 16:51 Freq: Status: Active Protocol: Document 06/30/19 15:15 DCW (Rec: 06/30/19 16:11 DCW [id number]) OP-PT Subjective Patient Comments Patient Comments Pt reports he is moving really slowly today. PT-OP-F Manual Assessment Start: 12/21/17 16:51 Freq: Status: Active Protocol: Document 06/09/19 15:15 DCW (Rec: 06/09/19 17:38 DCW [id number]) Manual Assessments Joint Mobility Assessment Joint Mobility Assessment P->A hypomobility and 2/5 - Pain with Wincing, tenderness in L1-L5 and bilateral SI joints PT-OP-J Posture/Palpation/Skin Start: 12/21/17 16:51 Freq: Status: Active Protocol: Document 06/09/19 15:15 DCW (Rec: 06/09/19 17:38 DCW [id number]) Palpation Assessment Location Four Palpation Location Gluteus Max Palpation Findings Soft Tissue Tightness,Spasm, Muscle Guarding,Tenderness Palpation Details Moderate Tone and Tenderness 1 /5 - Complaint of pain Three Palpation Location Quadratus Lumborum Palpation Findings Soft Tissue Tightness,Spasm, Muscle Guarding,Tenderness Palpation Details Moderate Tone and Tenderness 2 /5 - Pain with Wincing Two Palpation Location Piriformis Palpation Findings Soft Tissue Tightness,Spasm, Muscle Guarding,Tenderness Palpation Details Moderate Tone and Tenderness 2 /5 - Pain with Wincing One Palpation Location Multifidi Palpation Findings Soft Tissue Tightness,Spasm, Muscle Guarding,Tenderness Palpation Details Mild Tone and Tenderness 1/5 - Complaint of Pain PT-OP-K Range of Motion Start: 12/21/17 16:51 Freq: Status: Active Protocol: Document 06/09/19 15:15 DCW (Rec: 06/09/19 17:38 DCW [id number]) Lumbar Spine Range of Motion Lumbar Spine Active Degrees Testing Position Standing Flexion 35 Extension 14 Lateral Flexion Left 59 Lateral Flexion Right 60 Comments Lateral Flexion measured in cm from fingertips to floor PT-OP-L Special Tests Start: 12/21/17 16:51 Freq: Status: Active Protocol: Document 06/09/19 15:15 DCW (Rec: 06/09/19 17:38 DCW [id number]) Special Tests Lumbar Spine Special Tests Standing Flexion Test Results Lumbar spine unable to flex more than 35 degrees Prone Knee Flexion Test Results Quad tightness Straight Leg Raise Test Results Moderate Bilateral pain at 45 degrees Prone Press Up Test Results Complaints of Pain PT-OP-Q Treatments Start: 12/21/17 16:51 Freq: Status: Active Protocol: Document 06/30/19 15:15 DCW (Rec: 06/30/19 16:11 DCW [id number]) Manual Therapy Treatment Soft Tissue Mobilization 7 Body Location left Hamstring Mobilization Type Strumming,Sustained Pressure, Trigger Point Release Intensity/Depth Deep Body Position Prone 6 Body Location Suboccipitals Mobilization Type Sustained Pressure Body Position Prone 5 Body Location Proximal Gastroc heads, bilateral Mobilization Type Instrument Assisted,Myofascial Release,Rolling,Strumming, Sustained Pressure,Trigger Point Release Intensity/Depth Moderate Body Position Prone 4 Body Location Lumbar Paravetebral Musculature Mobilization Type Cross-Friction,Instrument Assisted,Rolling,Strumming, Sustained Pressure,Trigger Point Release Intensity/Depth Moderate Body Position Prone 3 Body Location Piriformis Mobilization Type Myofascial Release 2 Body Location Quadratus Lumborum Mobilization Type Myofascial Release,Strumming, Sustained Pressure,Trigger Point Release Intensity/Depth Deep Body Position Prone 1 Body Location Multifidi Mobilization Type Myofascial Release,Strumming, Sustained Pressure,Trigger Point Release Intensity/Depth Moderate Body Position Prone Joint Mobilizations 1 Joint Lumbar 1-5 Direction P->A Grade III Body Position Prone PT-OP-R Modalities Start: 12/21/17 16:51 Freq: Status: Active Protocol: Document 02/18/19 15:15 DCW (Rec: 02/18/19 16:07 DCW [id number]) Ultrasound Therapy Treatment Right Lower Back Treatment Duration (minutes) 5 Patient Position Prone Coupling Medium Ultrasound Gel Frequency Setting (mHz) 1 Mode Setting Continuous Intensity Setting (w/cm2) 1.2 Left Lower Back Treatment Duration (minutes) 5 Patient Position Prone Coupling Medium Ultrasound Gel Frequency Setting (mHz) 1 Mode Setting Continuous Intensity Setting (w/cm2) 1.2 PT-OP-T Assessment and Plan Start: 12/21/17 16:51 Freq: Status: Active Protocol: Document 06/30/19 15:15 DCW (Rec: 06/30/19 16:11 DCW [id number]) Physical Therapy Assessment Impairments Impairments Activity Tolerance,Balance, Pain,Posture,ROM,Soft Tissue Mobility,Tone Goals Six Impairment Activity Tolerance Short Term Goal (STG) Pt to report ability to drive for 60 minutes with no increased pain STG Duration 07/09/19 - improving - 30 minutes Correction Goal (LTG) Pt to report ability to walk down to his barn from the house (100 yards) with no increased pain LTG Duration 08/09/19 - Improving Five Impairment Pain Short Term Goal (STG) Pt to report pain at worst 7/ 10 STG Duration Met Correction Goal (LTG) Pt to report pain at worst 4/ 10 LTG Duration 08/09/19 Four Impairment SLR Forestry Extension Specialist Goal (LTG) SLR to 50 degrees without increased pain LTG Duration 08/09/19 - Improving Three Impairment Joint Mobility Forestry Extension Specialist Goal (LTG) P->A mobility of L1-5 to WNL LTG Duration 08/09/19 - Improving Two Impairment Muscle Tone Forestry Extension Specialist Goal (LTG) Multifidi, QL, Glute Max, and Piriformis tone to Mild LTG Duration 08/09/19 - Improving One Impairment Palpation Tenderness Correction Goal (LTG) Low back tenderness to palpation down to 1/5 - Complaint of pain LTG Duration 08/09/19 - Improving - some down to 1/4 Assessment Summary Assessment Pt tolerated treatment well, was able to lay completely prone for the first time in 7 years. Physical Therapy Plan Frequency and Duration Frequency of Treatment 2x/Week Duration of Treatment 12 weeks Plan of Care Start Date 06/09/19 Plan of Care End Date 09/01/19 Therapeutic Interventions Therapeutic Interventions Aquatic Therapy,Home Exercise Program,Joint Mobilizations, Manual Therapy,Neuromuscular Re-education,Patient/Caregiver Education,Soft Tissue Mobilization,Therapeutic Exercises,Vestibular Rehabilitation Modalities Cold Pack/Ice Massage,Electric Stimulation,Hot Packs, Ultrasound Next Visit Focus/Plan Next Note Type Treatment Note Next Visit Plan Manual therapy for decreasing spasm, modalities (US, E-stim) . Re-eval for balance if pt arrives with new referral
--- NOTE | 2019-07-15 11:33 | PT.OPDS ---
Current Diagnoses Unspecified inflammatory spondylopathy, lumbar region (06/30/19) Visit Care Team Role Provider Type Jhon Taylor MD Family Provider Physician Primary Care Provider Specialty: Internal Medicine Address: [address] [place] [address], [id number] Email: [email or web address] Hay Wagner DO Attending Provider Physician Specialty: Physiatry Pain Management Address: [address] [place], [place] [address], [address] Email: [email or web address] Visit Number Visit Number [phone] Discharge Summary PT-OP-B Current Condition Start: 12/21/17 16:51 Freq: Status: Active Protocol: Document 03/27/18 14:30 DCW (Rec: 03/27/18 14:43 DCW [id number]) Current Condition Current Functional Impairments (Reported) Functional Limitations- ADL's Pain with standing for 10+ minutes Pain with sitting 30+ minutes Pain disturbs sleep Unable to drive 30+ minutes Functional Limitations- Mobility/Gait Pt reports he must drive from his house to the barn, which is ~100 yards away. 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 Personal Factors Other Personal Factors That May Effect Morbid Obesity, Neuropathy, Therapy/Recovery Phrenic nerve palsy, cervical spinal fusion PT-OP-C Subjective Start: 12/21/17 16:51 Freq: Status: Active Protocol: Document 06/30/19 15:15 DCW (Rec: 06/30/19 16:11 DCW [id number]) OP-PT Subjective Patient Comments Patient Comments Pt reports he is moving really slowly today. PT-OP-F Manual Assessment Start: 12/21/17 16:51 Freq: Status: Active Protocol: Document 06/09/19 15:15 DCW (Rec: 06/09/19 17:38 DCW [id number]) Manual Assessments Joint Mobility Assessment Joint Mobility Assessment P->A hypomobility and 2/5 - Pain with Wincing, tenderness in L1-L5 and bilateral SI joints PT-OP-J Posture/Palpation/Skin Start: 12/21/17 16:51 Freq: Status: Active Protocol: Document 06/09/19 15:15 DCW (Rec: 06/09/19 17:38 DCW [id number]) Palpation Assessment Location Four Palpation Location Gluteus Max Palpation Findings Soft Tissue Tightness,Spasm, Muscle Guarding,Tenderness Palpation Details Moderate Tone and Tenderness 1 /5 - Complaint of pain Three Palpation Location Quadratus Lumborum Palpation Findings Soft Tissue Tightness,Spasm, Muscle Guarding,Tenderness Palpation Details Moderate Tone and Tenderness 2 /5 - Pain with Wincing Two Palpation Location Piriformis Palpation Findings Soft Tissue Tightness,Spasm, Muscle Guarding,Tenderness Palpation Details Moderate Tone and Tenderness 2 /5 - Pain with Wincing One Palpation Location Multifidi Palpation Findings Soft Tissue Tightness,Spasm, Muscle Guarding,Tenderness Palpation Details Mild Tone and Tenderness 1/5 - Complaint of Pain PT-OP-K Range of Motion Start: 12/21/17 16:51 Freq: Status: Active Protocol: Document 06/09/19 15:15 DCW (Rec: 06/09/19 17:38 DCW [id number]) Lumbar Spine Range of Motion Lumbar Spine Active Degrees Testing Position Standing Flexion 35 Extension 14 Lateral Flexion Left 59 Lateral Flexion Right 60 Comments Lateral Flexion measured in cm from fingertips to floor PT-OP-L Special Tests Start: 12/21/17 16:51 Freq: Status: Active Protocol: Document 06/09/19 15:15 DCW (Rec: 06/09/19 17:38 DCW [id number]) Special Tests Lumbar Spine Special Tests Standing Flexion Test Results Lumbar spine unable to flex more than 35 degrees Prone Knee Flexion Test Results Quad tightness Straight Leg Raise Test Results Moderate Bilateral pain at 45 degrees Prone Press Up Test Results Complaints of Pain PT-OP-T Assessment and Plan Start: 12/21/17 16:51 Freq: Status: Active Protocol: Document 07/15/19 11:27 DCW (Rec: 07/15/19 11:33 DCW [id number]) Physical Therapy Assessment Impairments Impairments Activity Tolerance,Balance, Pain,Posture,ROM,Soft Tissue Mobility,Tone Goals Six Impairment Activity Tolerance Short Term Goal (STG) Pt to report ability to drive for 60 minutes with no increased pain STG Duration 07/09/19 - improving - 30 minutes Utilities Manager Goal (LTG) Pt to report ability to walk down to his barn from the house (100 yards) with no increased pain LTG Duration 08/09/19 - Improving Five Impairment Pain Short Term Goal (STG) Pt to report pain at worst 7/ 10 STG Duration Met Care Home Goal (LTG) Pt to report pain at worst 4/ 10 LTG Duration 08/09/19 Four Impairment SLR Care Home Goal (LTG) SLR to 50 degrees without increased pain LTG Duration 08/09/19 - Improving Three Impairment Joint Mobility Care Home Goal (LTG) P->A mobility of L1-5 to WNL LTG Duration 08/09/19 - Improving Two Impairment Muscle Tone Utilities Manager Goal (LTG) Multifidi, QL, Glute Max, and Piriformis tone to Mild LTG Duration 08/09/19 - Improving One Impairment Palpation Tenderness Utilities Manager Goal (LTG) Low back tenderness to palpation down to 1/5 - Complaint of pain LTG Duration 08/09/19 - Improving - some down to 08/09 Assessment Summary Assessment Last week, pt unfortunately suffered a fairly severe fall after his dog pulled him over, causing him to hit his face on the cement porch. Pt suffered orbital fractures, multiple fractured ribs, significant swelling and bruising along his left knee, and general soreness and discomfort. Pt has had facial and rib x-rays, but has so far not been fully assessed medically. Pt will require a new referral in order to return to therapy, due to this change in medical status. As pt will likely need an extended time of healing, her will be discharged from skilled therapy at this time. Physical Therapy Plan Frequency and Duration Frequency of Treatment 2x/Week Duration of Treatment 12 weeks Plan of Care Start Date 06/09/19 Plan of Care End Date 09/01/19 Therapeutic Interventions Therapeutic Interventions Aquatic Therapy,Home Exercise Program,Joint Mobilizations, Manual Therapy,Neuromuscular Re-education,Patient/Caregiver Education,Soft Tissue Mobilization,Therapeutic Exercises,Vestibular Rehabilitation Modalities Cold Pack/Ice Massage,Electric Stimulation,Hot Packs, Ultrasound Discharge Physical Therapy Discharge Reasons Change in Medical Status
== END 2019-08-01 11:41 ==
LOC: PHYS 15:15
PROVIDERS: Family Provider Internal Medicine; PCP Internal Medicine; Visit Provider Physical Medicine & Rehabilitation
DX: M46.96 Unspecified inflammatory spondylopathy, lumbar region (principal)
CPT/HCPCS: 97014; 97035; 97140; 97162; G0283

== ENCOUNTER 2019-07-10 12:03 | Emergency (ER) | payer MEDICARE, MEDICAID, SELFPAY ==
[2019-02-27 16:29] VITALS: BMI 53.1
[2019-07-10 12:09] VITALS: BP 140/76; PULSE 77; RESP 18; TEMP 35.9; O2SAT 99; BMI 40.4
--- NOTE | 2019-07-10 12:13 | DI.RAD.S_ITS ---
PROCEDURE: XR CHEST 2V INDICATIONS: fall - left sided chest pain TECHNIQUE: 2 views of the chest were acquired. COMPARISON: [facility], CHEST 1 VIEW, 09/28/2017, 18:21. [facility], CHEST 2 VIEW, 11/17/2016, 18:56. FINDINGS: Surgical changes and devices: Right inferior neck surgical clips. Lungs and pleura: No consolidation. No pleural effusions or pneumothorax. Mediastinum: Mediastinal contours are normal. Heart size is normal. Bones and chest wall: No suspicious bony abnormalities. No displaced left-sided rib fractures identified. Soft tissues appear unremarkable. IMPRESSION: No acute cardiopulmonary abnormality. No displaced rib fractures identified. Consider dedicated rib radiographs if clinically indicated. Dictated by: Alonzo Singer M.D. on 07/10/2019 at 13:00 Approved by: Alonzo Singer M.D. on 07/10/2019 at 13:01
--- NOTE | 2019-07-10 13:14 | ED_ITS ---
HPI - Fall <Shanice Kim PA-C - Last Filed: 07/10/19 20:36> General Chief Complaint: Fall Stated Complaint: fell Time Seen by Provider: 07/10/19 13:14 Source: patient Mode of arrival: Ambulatory Limitations: no limitations History of Present Illness HPI Narrative: This 54-year-old male states that he slipped and fell on a cement porch down 1 step after being pulled by his dog. He fell mainly onto his left side. He came in due to pain in his left-sided ribs which makes it more difficult to breathe (he has chronic dyspnea and paralyzed right lung, so he was worried about this). He states that it is the pain that makes it more difficult to breathe. He hit the cement near his left eye also, scalp was bleeding a little bit. He did not lose consciousness, but mom notes that he was mumbling for a minute and not making sense. He states he does have a headache, feels like his vision is a little off and has some nausea. He has not eaten today. He has not vomited. He states he also has scrapes on his right foot, left leg and a little bit on the right hand. He had to have help getting up after this, but states he did not have difficulty bearing weight or walking more than usual. He states he mainly came in due to concern about broken ribs. Last tetanus vaccine more than 5 years ago he believes. 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 Related Data Home Medications Medication Instructions Recorded Confirmed multivitamin 1 cap PO QDAY #0 10/13/11 05/08/19 potassium chloride [Klor-Con M20] 20 meq PO AMCC #0 tab 04/18/16 07/10/19 spironolactone 100 mg PO BID #0 04/18/16 07/10/19 carvedilol [Coreg] 25 mg PO BIDCC #60 09/28/17 07/10/19 duloxetine 60 mg PO BID #30 09/28/17 07/10/19 cholecalciferol (vitamin D3) 50,000 unit PO 2XW #0 10/11/17 05/08/19 metolazone 5 mg PO BID #0 10/11/17 05/08/19 terbinafine HCl 250 mg PO QDAYP PRN #0 10/11/17 05/08/19 aspirin 81 mg PO DAILY 05/28/18 05/08/19 levocetirizine [Xyzal] 5 mg PO BID 05/28/18 07/10/19 levothyroxine 250 mcg PO DAILY 05/28/18 07/10/19 liothyronine 50 mcg PO DAILY 05/28/18 07/10/19 metformin 1,000 mg PO BID 05/28/18 07/10/19 naloxone 1 dose IM .ONCE PRN 05/28/18 05/08/19 oxycodone-acetaminophen [Percocet] 1 tab PO TID PRN MDD 3 05/28/18 07/10/19 polyethylene glycol 3350 [Miralax] 17 g PO DAILY 05/28/18 05/08/19 pregabalin [Lyrica] 1 cap PO TID 05/28/18 07/10/19 sennosides [senna] 3 tab PO BID 05/28/18 05/08/19 tadalafil [Cialis] 5 mg PO DAILY 05/28/18 07/10/19 tamsulosin [Flomax] 0.4 mg PO DAILY 05/28/18 07/10/19 torsemide 40 mg PO TID 05/28/18 07/10/19 fentanyl 100 mcg/hr transdermal 1 patch TRANSDERMAL Q72H 12/25/18 07/10/19 patch epinephrine 0.3 mg IM PRN PRN 07/10/19 07/10/19 hydrochlorothiazide 25 mg PO DAILY 07/10/19 07/10/19 insulin degludec [Tresiba SUBCUT 07/10/19 FlexTouch U-100] methocarbamol 750 mg PO Q4H PRN 07/10/19 07/10/19 mirtazapine 45 mg PO BEDTIME 07/10/19 07/10/19 naloxone 0.4 mg IM .ONCE PRN 07/10/19 07/10/19 olopatadine 1 drp OPHTHALMIC (EYE) DIRECTED 07/10/19 07/10/19 tramadol 50 mg PO Q4H PRN 07/10/19 07/10/19 Previous Rx's Medication Instructions Recorded oxycodone-acetaminophen [Endocet] 2 tab PO Q4-6H PRN #14 tab 07/10/19 Allergies Allergy/AdvReac Type Severity Reaction Status Date / Time heparin (porcine) Allergy Severe BREATHINBG Verified 07/16/19 09:32 [HEPARIN,PORCINE] DIFFICULTIES Penicillins Allergy Severe RASH, Verified 07/16/19 09:32 THROAT SWELLING Pork/Porcine Containing Allergy Severe RASH, Verified 07/16/19 09:32 Products THROAT SWELLING, VOMITING Review of Systems <Shanice Kim PA-C - Last Filed: 07/10/19 20:36> Review of Systems ROS Unobtainable: All systems reviewed & are unremarkable except as noted in HPI and below Patient History <Shanice Kim PA-C - Last Filed: 07/10/19 20:36> Social History Smoking Status: Never smoker Smoking Status: Never smoker alcohol intake frequency: 0-2 drinks per day Substance Use Type: does not use Exam <Shanice Kim PA-C - Last Filed: 07/10/19 20:36> Narrative Exam Narrative: GENERAL APPEARANCE: Patient appears slightly uncomfortable resting twisted to right side, in NAD HEENT: Left supraorbital ecchymoses and edema, tender to touch, less so inferiorly. There is some scabbing on the left frontal area, no active bleeding. PERRL, EOMI, normal ear canals, nasal mucosa and oropharynx NECK: Supple CHEST: Exquisitely tender over the left inferior ribs most at 8-10 throughout the course. No point tenderness elsewhere LUNGS: Clear to auscultation on the left, diminished breath sounds on the right HEART: Rate and rhythm regular without murmur, normal S1 and S2, no S3 or S4. ABDOMEN: Soft, NT, ND, + BS x 4 quadrants NEUROLOGIC: Alert and oriented, normal speech and coordination. MUSCULOSKELETAL: Full Csp AROM, no tenderness over the cervical spine. Full range of motion of the left knee and ankle without tenderness DERMATOLOGIC: There are small superficial scrapes with scabs on the left pinky finger, right lateral toes and left rutherford Initial Vital Signs Initial Vital Signs: Vital Signs Temperature 96.7 F L 07/10/19 12:09 Pulse Rate 77 07/10/19 12:09 Respiratory Rate 18 07/10/19 12:09 Blood Pressure 140/76 07/10/19 12:09 Pulse Oximetry 99 07/10/19 12:09 <Anastasia Pond MD - Last Filed: 07/19/19 07:18> Initial Vital Signs Initial Vital Signs: Vital Signs Temperature 96.7 F L 07/10/19 12:09 Pulse Rate 77 07/10/19 12:09 Respiratory Rate 18 07/10/19 12:09 Blood Pressure 140/76 07/10/19 12:09 Pulse Oximetry 99 07/10/19 12:09 Course <Shanice Kim PA-C - Last Filed: 07/10/19 20:36> Course Additional Information: Radiologist called to advised left ribs 7-9 do have perhaps minimally displaced fractures, no fragment or other injury seen. After pain medication and review with respiratory therapy to help with splinting and monitor with incentive spirometry, patient is feeling significantly improved. He states he feels quite comfortable breathing as long as he does not try to stretch or move around a lot. He does not feel like he needs to be in hospital. Reviewed findings with attending physician Dr. Pond who agrees reasonable to discharge. Discussed with patient he needs to return to ED immediately if he feels like he has any acutely worsening respiratory symptoms or cannot manage pain, and he is agreeable. Spoke with PCP office and was able to obtain follow- up appointment for tomorrow. Orders Ordered: Discontinued Medications Diphtheria/Tetanus/Acell Pertussis (Adacel) 0.5 ml IM .ONCE ONE Stop: 07/10/19 13:34 Last Admin: 07/10/19 14:04 Dose: 0.5 ml Documented by: SUE Ondansetron HCl (Zofran Odt) 4 mg SL NOW ONE Stop: 07/10/19 13:30 Last Admin: 07/10/19 14:04 Dose: 4 mg Documented by: SUE Oxycodone/Acetaminophen (Percocet 5/325) 2 tab PO NOW ONE Stop: 07/10/19 13:30 Last Admin: 07/10/19 14:04 Dose: 2 tab Documented by: SUE Vital Signs Vital signs: Vital Signs - 8 hr 07/10/19 14:00 07/10/19 15:00 07/10/19 15:02 Pulse Rate 84 90 87 Respiratory Rate 16 Blood Pressure Blood Pressure [Left Arm] 131/58 L 123/44 L 123/44 L Pulse Oximetry 96 91 97 07/10/19 15:47 Pulse Rate 78 Respiratory Rate 15 Blood Pressure 123/64 Blood Pressure [Left Arm] Pulse Oximetry 97 <Anastasia Pond MD - Last Filed: 07/19/19 07:18> Orders Ordered: Discontinued Medications Diphtheria/Tetanus/Acell Pertussis (Adacel) 0.5 ml IM .ONCE ONE Stop: 07/10/19 13:34 Last Admin: 07/10/19 14:04 Dose: 0.5 ml Documented by: SUE Ondansetron HCl (Zofran Odt) 4 mg SL NOW ONE Stop: 07/10/19 13:30 Last Admin: 07/10/19 14:04 Dose: 4 mg Documented by: SUE Oxycodone/Acetaminophen (Percocet 5/325) 2 tab PO NOW ONE Stop: 07/10/19 13:30 Last Admin: 07/10/19 14:04 Dose: 2 tab Documented by: SUE Vital Signs Vital signs: Vital Signs - 8 hr 07/10/19 14:00 07/10/19 15:00 07/10/19 15:02 Pulse Rate 84 90 87 Respiratory Rate 16 Blood Pressure Blood Pressure [Left Arm] 131/58 L 123/44 L 123/44 L Pulse Oximetry 96 91 97 07/10/19 15:47 Pulse Rate 78 Respiratory Rate 15 Blood Pressure 123/64 Blood Pressure [Left Arm] Pulse Oximetry 97 Discharge Plan Departure Patient Disposition: Home Clinical Impression: Fall from ground level Multiple rib fractures Qualifiers: Encounter type: initial encounter Fracture type: closed Laterality: left Qualified Code(s): S22.42XA - Multiple fractures of ribs, left side, initial encounter for closed fracture Contusion of face Qualifiers: Encounter type: initial encounter Qualified Code(s): S00.83XA - Contusion of other part of head, initial encounter Discharge Date/Time: 07/10/19 15:53 Instructions: DI for Rib Fracture Activity Restrictions/Additional Instructions: As we talked about, you should return to the ED if you have any acutely worsening symptoms, such as new difficulty with your breathing, or if pain is not well controlled enough to breathe comfortably as the respiratory therapist showed you. You should also return if you have acutely worsening headache, vision change, vomiting, etc. Please continue to take breakthrough pain medicine (Percocet) as needed to help with your rib pain since you do well with that. We have scheduled you for a follow-up visit with Dr. Taylor tomorrow in the [place] office, check in at 1:20. I have prescribed pain medicine for you to continue until then. Prescriptions: New oxycodone-acetaminophen [Endocet] 5-325 mg tablet 2 tab PO Q4-6H PRN (Reason: acute rib fracture pain) Qty: 14 RF: 0 No Action multivitamin Tablet 1 cap PO QDAY Qty: 0 RF: 0 potassium chloride [Klor-Con M20] 20 MEQ tablet,ER particles/crystals 20 meq PO AMCC Qty: 0 RF: 0 spironolactone 100 MG tablet 100 mg PO BID Qty: 0 RF: 0 duloxetine 60 MG capsule,delayed release(DR/EC) 60 mg PO BID Qty: 30 RF: 0 carvedilol [Coreg] 25 MG tablet 25 mg PO BIDCC Qty: 60 RF: 0 metolazone 5 MG tablet 5 mg PO BID Qty: 0 RF: 0 terbinafine HCl 250 MG tablet 250 mg PO QDAYP PRN (Reason: ANTIFUNGAL) Qty: 0 RF: 0 cholecalciferol (vitamin D3) 50,000 UNIT capsule 50,000 unit PO 2XW Qty: 0 RF: 0 pregabalin [Lyrica] 300 mg capsule 1 cap PO TID RF: 0 metformin 500 mg Tablet 1,000 mg PO BID RF: 0 sennosides [senna] 8.6 mg Tablet 3 tab PO BID RF: 0 torsemide 20 mg Tablet 40 mg PO TID RF: 0 polyethylene glycol 3350 [Miralax] 17 gram Powder In Packet 17 g PO DAILY RF: 0 aspirin 81 mg Tablet,Delayed Release (Dr/Ec) 81 mg PO DAILY RF: 0 tamsulosin [Flomax] 0.4 mg Capsule 0.4 mg PO DAILY RF: 0 levothyroxine 125 mcg Tablet 250 mcg PO DAILY RF: 0 liothyronine 50 mcg Tablet 50 mcg PO DAILY RF: 0 tadalafil [Cialis] 5 mg Tablet 5 mg PO DAILY RF: 0 levocetirizine [Xyzal] 5 mg Tablet 5 mg PO BID RF: 0 naloxone 0.4 mg/0.4 mL Auto-Injector 1 dose IM .ONCE PRN (Reason: NARCOTIC OVERDOSE) RF: 0 oxycodone-acetaminophen [Percocet] 5 MG/325 MG tablet 1 tab PO TID MDD 3 PRN (Reason: pain) RF: 0 tramadol 50 mg tablet 50 mg PO Q4H PRN (Reason: pain) RF: 0 methocarbamol 750 mg tablet 750 mg PO Q4H PRN (Reason: Muscle Spasm) RF: 0 mirtazapine 45 mg tablet 45 mg PO BEDTIME RF: 0 hydrochlorothiazide 25 mg tablet 25 mg PO DAILY RF: 0 epinephrine 0.3 mg/0.3 mL auto-injector 0.3 mg IM PRN PRN (Reason: Allergic Reaction) RF: 0 olopatadine 0.2 % drops 1 drp ophthalmic (eye) DIRECTED RF: 0 Tresiba FlexTouch U-100 100 unit/mL (3 mL) insulin pen SUBCUT RF: 0 naloxone 0.4 mg/mL Syringe 0.4 mg IM .ONCE PRN (Reason: narcotic overdose) RF: 0 fentanyl 100 mcg/hr patch 72 hour 1 patch Transdermal Q72H RF: 0 Referrals: Jhon Taylor MD [Primary Care Provider] -
--- NOTE | 2019-07-10 13:29 | DI.CT.S_ITS ---
PROCEDURE: CT FACIAL BONES WO CON INDICATIONS: Fall, L. orbital pain, swelling TECHNIQUE: Noncontrast 2.5 mm thick axial images acquired from the mandible through the frontal sinuses, with coronal and sagittal reformatting. For radiation dose reduction, the following was used: automated exposure control, adjustment of mA and/or kV according to patient size. COMPARISON: Head CT 12/26/2016. FINDINGS: Image quality: Excellent. Bones and teeth: Orbital no are intact. Sinus no show no fracture or deformity. Nasal bones and septum are intact. Visualized portions of the mandible demonstrate no fractures or subluxation. Zygomatic arches are intact. Pterygoid plates are intact. Visualized portions of the skull base and auditory canals are intact. Sinuses: Opacification of the right maxillary sinus. Paranasal sinuses and mastoid air cells are otherwise clear. Soft tissues: A small contusion lateral to the left orbit, (3/96) and along the left forehead (3/124). No edema, masses, or fluid collections. No enlarged lymph nodes. No soft tissue lacerations or debris. Vascular: Visualized vascular structures appear normal in the absence of contrast. Bony vascular foramina and canals are intact. IMPRESSION: No orbital fracture. Small soft tissue contusion lateral to the left orbit and along the left forehead. Right maxillary sinusitis is again seen. Dictated by: Alonzo Singer M.D. on 07/10/2019 at 14:15 Approved by: Alonzo Singer M.D. on 07/10/2019 at 14:19
--- NOTE | 2019-07-10 13:29 | DI.CT.S_ITS ---
PROCEDURE: CT HEAD/BRAIN WO CON INDICATIONS: fall, CRENSHAW, nausea TECHNIQUE: Noncontrast 4.5 mm thick angled axial sections acquired from the foramen magnum to the vertex, with coronal and sagittal reformats. For radiation dose reduction, the following was used: automated exposure control, adjustment of mA and/or kV according to patient size. COMPARISON: , CT, HEAD WITHOUT CONTRAST, 12/26/2016, 21:49. FINDINGS: Image quality: Excellent. CSF spaces: Basal cisterns are patent. No extra-axial fluid collections. Ventricles are normal in size and shape. Brain: No midline shift. No intracranial masses or hemorrhage. Frazier-white matter interface is normal. Skull and face: Calvarium and visualized facial bones are intact, without suspicious lesions. Probable contusion along the left lateral forehead. Sinuses: Opacification of the right maxillary sinus. Visualized sinuses and mastoids are otherwise clear. IMPRESSION: No acute intracranial abnormality demonstrated. Probable contusion along the left lateral forehead. Opacification of the right maxillary sinus. Dictated by: Alonzo Singer M.D. on 07/10/2019 at 14:10 Approved by: Alonzo Singer M.D. on 07/10/2019 at 14:15
[2019-07-10 14:00] VITALS: BP 131/58; PULSE 84; O2SAT 96
[2019-07-10] MEDS: ONDANSETRON 4 MG ODT SL (14:04)
[2019-07-10] MEDS: TET,DIPH,PERTUSS(ACELL),VAC/PF 0.5 ML SYRINGE IM (14:04)
[2019-07-10] MEDS: OXYCODONE/ACETAMINOPHEN 5/325 TABLET 2 TAB PO (14:04)
[2019-07-10 15:00] VITALS: BP 123/44; PULSE 90; O2SAT 91
[2019-07-10 15:02] VITALS: BP 123/44; PULSE 87; RESP 16; O2SAT 97
[2019-07-10 15:47] VITALS: BP 123/64; PULSE 78; RESP 15; O2SAT 97
--- NOTE | 2019-07-10 15:52 | PC.NURSE ---
A&Ox3 and GCS 15
== END 2019-07-10 15:53 | disposition home or self-care (01) ==
PROVIDERS: Emergency Provider Internal Medicine; PCP Internal Medicine
DX: S22.42XA Multiple fractures of ribs, left side, initial encounter for closed fracture (principal); S00.83XA Contusion of other part of head, initial encounter; W01.0XXA Fall on same level from slipping, tripping and stumbling without subsequent striking against object, initial encounter; Z23 Encounter for immunization
CPT/HCPCS: 70450; 70486; 71046; 90471; 99283; 99284; 90715

== ENCOUNTER → 2019-07-23 16:22 | Outpatient (CLI) | payer MEDICARE, MEDICAID, SELFPAY ==
[2019-02-27 16:29] VITALS: BMI 53.1
--- NOTE | 2019-07-23 | DI.RAD.S_ITS ---
PROCEDURE: XR CHEST 2V INDICATIONS: MULTIPLE FRACTURES OF RIBS, LEFT SIDE, SUBSEQUENT ENCOUNTER TECHNIQUE: 2 views of the chest were acquired. COMPARISON: [facility], [place], XR RIBS LT 2V, 07/23/2019, 16:26. [facility], [place], XR CHEST 2V, 07/10/2019, 12:19. FINDINGS: Surgical changes and devices: Cervical spine fixation hardware. Surgical clips projecting in the right apex. Lungs and pleura: Lungs are clear. No pleural effusions or pneumothorax. Elevation of the right hemidiaphragm Mediastinum: Mediastinal contours are normal. Heart size is normal. Multiple left rib fifth-ninth fractures IMPRESSION: Left-sided rib fractures. No definite pneumothorax. Dictated by: Deshawn Rios M.D. on 07/23/2019 at 17:22 Approved by: Deshawn Rios M.D. on 07/23/2019 at 17:26
--- NOTE | 2019-07-23 16:27 | DI.RAD.S_ITS ---
PROCEDURE: XR RIBS LT 2V INDICATIONS: MULTIPLE RIB FRACTURE TECHNIQUE: 4 views of the left ribs were acquired. COMPARISON: None. FINDINGS: Surgical changes and devices: None. Bones and chest wall: Left sixth, seventh, eighth and ninth rib fractures, moderately displaced. Additional anterior left fifth rib fracture Lungs and pleura: The visualized lung appears clear. No pleural effusions or pneumothorax are visible. IMPRESSION: Left fifth-ninth rib fractures Dictated by: Deshawn Rios M.D. on 07/23/2019 at 17:18 Approved by: Deshawn Rios M.D. on 07/23/2019 at 17:22
== END ==
PROVIDERS: PCP Internal Medicine; Visit Provider Internal Medicine
DX: S22.42XD Multiple fractures of ribs, left side, subsequent encounter for fracture with routine healing (principal); X58.XXXD Exposure to other specified factors, subsequent encounter
CPT/HCPCS: 71046; 71100

== ENCOUNTER → 2019-08-12 12:36 | Outpatient (CLI) | payer MEDICARE, MEDICAID, SELFPAY ==
[2019-02-27 16:29] VITALS: BMI 53.1
== END ==
PROVIDERS: PCP Internal Medicine; Referring Provider Internal Medicine; Visit Provider Family Medicine
DX: E11.621 Type 2 diabetes mellitus with foot ulcer (principal); L97.511 Non-pressure chronic ulcer of other part of right foot limited to breakdown of skin; E11.43 Type 2 diabetes mellitus with diabetic autonomic (poly)neuropathy; I89.0 Lymphedema, not elsewhere classified
CPT/HCPCS: 11042; 99214

== ENCOUNTER → 2019-08-13 14:20 | Outpatient (CLI) | payer MEDICARE, MEDICAID, SELFPAY ==
[2019-02-27 16:29] VITALS: BMI 53.1
--- NOTE | 2019-08-13 14:22 | DI.US.S_ITS ---
PROCEDURE: US ABDOMEN COMPLETE INDICATIONS: UNSPECIFIED ABDOMINAL PAIN TECHNIQUE: Real-time scanning was performed of the abdominal and retroperitoneal organs, with image documentation. COMPARISON: [facility], US, ABDOMEN COMPLETE, 01/18/2017, 14:10. FINDINGS: Liver: Liver is enlarged measuring 20.4 cm length. There is diffuse echogenic appearance. No focal hepatic lesion seen Gallbladder: Grossly unremarkable although not well seen sonographically. No definite wall thickening. No sonographic Beckham's sign Biliary ducts: Intrahepatic bile ducts are non-dilated. Extrahepatic bile duct caliber measures 8-9 mm. Normal is 6-7 mm or less in diameter, or 10 mm or less post-cholecystectomy. Pancreas: Not well-seen Spleen: Spleen is normal in size and homogeneous in echotexture. Kidneys: Kidneys are normal in size and echotexture. Right kidney measures 13.4 cm long; left kidney measures 13.3 cm long. No hydronephrosis or nephrolithiasis. No solid masses. Aorta: Not well-seen due to body habitus/shadowing bowel gas Iliacs: Not well-seen IVC: Not well-seen Miscellaneous: No free abdominal fluid. IMPRESSION: Minimally prominent extra hepatic bile duct diameter, however no other sonographic criteria for acute cholecystitis. Please correlate clinically and with LFTs Hepatomegaly. Coarse echogenic liver suggesting diffuse hepatocellular disease/fatty infiltration. Please correlate with LFTs. Suboptimal study due to excessive bowel gas as above Dictated by: Deshawn Rios M.D. on 08/13/2019 at 16:02 Approved by: Deshawn Rios M.D. on 08/13/2019 at 16:05
[2019-08-13 15:27] LABS: Add Manual Diff / Slide Review NO; Basophils Absolute Auto 0 /uL (0-100); Basophils Percent Auto 0.4 % (0-2); Eosinophils Absolute Auto 100 /uL (0-450); Eosinophils Percent Auto 1.2 % (2-4); Hematocrit 41.6 % (41-53); Hemoglobin 14.4 g/dL (13.5-17.5); Lymphocytes Absolute Auto 1500 /uL (1100-4500); Lymphocytes Percent Auto 14.5 % (25-40); Mean Corpuscular HGB Conc 34.6 % (30-36); Mean Corpuscular Hemoglobin 30.2 PG (26-34); Mean Corpuscular Volume 87.3 fL (80-100); Monocytes Absolute Auto 1100 /uL (0-900); Neutrophils Absolute Auto 7900 /uL (1500-7000); Neutrophils Percent Auto 73.9 % (50-75); Platelet Count 299 X10^3/uL (150-400); Red Blood Cell Count 4.76 X10^6/uL (4.5-5.9); Red Cell Distribution Width 15.4 % (11.6-14.8); White Blood Cell Count 10.7 X10^3/uL (4.5-11.0)
[2019-08-13 15:46] LABS: Alanine Aminotransferase 25 IU/L (<50); Albumin 4.9 g/dL (3.5-5.0); Albumin Globulin Ratio 1.5 (1.0-2.8); Alkaline Phosphatase 90 U/L (38-126); Amylase 57 U/L (30-110); Aspartate Aminotransferase 31 IU/L (17-59); BUN Creatinine Ratio 22.5 (6-22); Bilirubin Total 0.4 mg/dL (0.2-1.3); Blood Urea Nitrogen 27 mg/dL (9-20); Calcium 10.9 mg/dL (8.4-10.2); Carbon Dioxide 34 mmol/L (22-32); Chloride 90 mmol/L (98-107); Estimated Glomerular Filt Rate > 60.0 mL/min (>60); Globulin 3.2 g/dL (1.7-4.1); Glucose 174 mg/dL (70-100); HEMOLYSIS < 15 (0-50); Lipase 208 U/L (23-300); Potassium 4.7 mmol/L (3.4-5.1); Sodium 138 mmol/L (137-145); Total Protein 8.1 g/dL (6.3-8.2)
== END ==
PROVIDERS: PCP Internal Medicine; Visit Provider Internal Medicine
DX: R10.9 Unspecified abdominal pain (principal); R16.0 Hepatomegaly, not elsewhere classified
CPT/HCPCS: 36415; 76700; 80053; 82150; 83690; 85025

== ENCOUNTER → 2019-08-26 14:27 | Outpatient (CLI) | payer MEDICARE, MEDICAID, SELFPAY ==
[2019-02-27 16:29] VITALS: BMI 53.1
== END ==
PROVIDERS: PCP Internal Medicine; Visit Provider Family Medicine
DX: E11.621 Type 2 diabetes mellitus with foot ulcer (principal); L97.511 Non-pressure chronic ulcer of other part of right foot limited to breakdown of skin; I89.0 Lymphedema, not elsewhere classified; L08.9 Local infection of the skin and subcutaneous tissue, unspecified; E11.43 Type 2 diabetes mellitus with diabetic autonomic (poly)neuropathy; E66.01 Morbid (severe) obesity due to excess calories
CPT/HCPCS: 11042; 87070; 87075; 87077; 87147; 87176; 87186; 87205; 99214

== ENCOUNTER → 2019-08-26 16:19 | Outpatient (CLI) | payer MEDICARE, MEDICAID, SELFPAY ==
[2019-02-27 16:29] VITALS: BMI 53.1
--- NOTE | 2019-08-26 16:23 | DI.RAD.S_ITS ---
PROCEDURE: XR FOOT RT MIN 3V INDICATIONS: CHRONIC ULCER RIGHT FOOT TECHNIQUE: 3 views of the foot were acquired. COMPARISON: [facility], CR, XR FOOT RT MIN 3V, 04/26/2018, 15:12. [facility], CR, FOOT 3V LEFT, 05/16/2017, 13:01. FINDINGS: Bones: No fractures or dislocations. At the lateral border of the cuboid bone and the base of the lateral aspect of the fifth metatarsal bone there has been interval change with what appears to be areas of osseous erosions. The reported chronic ulceration right foot is not specified in terms of positioning, but there is mild soft tissue irregularity and mild swelling lateral to the base of the first metatarsal and slightly more proximally. Note is again made of chronic calcification within the plantar fascia posteriorly. There is a small plantar fascial insertion spurring also a similar spur at the Achilles tendon insertion.. Soft tissues: No tibiotalar joint effusion. Achilles tendon appears normal. IMPRESSION: Suspect low-grade osteomyelitis as cause of the focal erosions along the lateral border of the cuboid bone and the lateral base of the fifth metatarsal bone. MR scanning with contrast may be warranted in this clinical circumstance for more accurate characterization. Dictated by: Pete Prasad M.D. on 08/27/2019 at 9:34 Approved by: Pete Prasad M.D. on 08/27/2019 at 9:37
[2019-08-26 17:53] LABS: Add Manual Diff / Slide Review NO; Basophils Absolute Auto 0 /uL (0-100); Basophils Percent Auto 0.4 % (0-2); Eosinophils Absolute Auto 100 /uL (0-450); Hematocrit 40.6 % (41-53); Hemoglobin 14.1 g/dL (13.5-17.5); Lymphocytes Absolute Auto 2200 /uL (1100-4500); Lymphocytes Percent Auto 19.1 % (25-40); Mean Corpuscular HGB Conc 34.8 % (30-36); Mean Corpuscular Hemoglobin 30.1 PG (26-34); Mean Corpuscular Volume 86.3 fL (80-100); Monocytes Absolute Auto 900 /uL (0-900); Monocytes Percent Auto 8.3 % (3-14); Neutrophils Absolute Auto 8000 /uL (1500-7000); Neutrophils Percent Auto 71.2 % (50-75); Platelet Count 282 X10^3/uL (150-400); Red Cell Distribution Width 15.2 % (11.6-14.8); White Blood Cell Count 11.3 X10^3/uL (4.5-11.0)
[2019-08-26 18:00] LABS: Hemoglobin A1C% w Est Avg Glu 6.3 % (4.0-6.0)
[2019-08-26 18:16] LABS: Alanine Aminotransferase 38 IU/L (<50); Albumin 4.7 g/dL (3.5-5.0); Albumin Globulin Ratio 1.3 (1.0-2.8); Alkaline Phosphatase 86 U/L (38-126); Aspartate Aminotransferase 35 IU/L (17-59); BUN Creatinine Ratio 25.4 (6-22); Bilirubin Total 0.6 mg/dL (0.2-1.3); Blood Urea Nitrogen 33 mg/dL (9-20); C-Reactive Protein Quant 2.5 mg/dL (<1.0); Calcium 10.1 mg/dL (8.4-10.2); Carbon Dioxide 31 mmol/L (22-32); Chloride 89 mmol/L (98-107); Globulin 3.5 g/dL (1.7-4.1); Glucose 115 mg/dL (70-100); HEMOLYSIS < 15 (0-50); Potassium 4.6 mmol/L (3.4-5.1); Sodium 134 mmol/L (137-145); Total Protein 8.2 g/dL (6.3-8.2)
[2019-08-26 18:21] LABS: Prealbumin 33.6 mg/dL (17.6-36.0)
[2019-08-26 18:25] LABS: Erythrocyte Sedimentation Rate 38 MM/HR (0-15)
== END ==
PROVIDERS: PCP Internal Medicine; Visit Provider Family Medicine
DX: E11.621 Type 2 diabetes mellitus with foot ulcer (principal); L97.511 Non-pressure chronic ulcer of other part of right foot limited to breakdown of skin; L08.9 Local infection of the skin and subcutaneous tissue, unspecified; I89.0 Lymphedema, not elsewhere classified; E11.43 Type 2 diabetes mellitus with diabetic autonomic (poly)neuropathy; E66.01 Morbid (severe) obesity due to excess calories
CPT/HCPCS: 11042; 36415; 73630; 80053; 83036; 84134; 85025; 85651; 86140; 87070; 87075; 87077; 87147; 87176; 87186; 87205

== ENCOUNTER 2019-09-23 13:00 | Outpatient (RCR) | payer MEDICARE, OTHER, MEDICAID, SELFPAY ==
[2019-02-27 16:29] VITALS: BMI 53.1
--- NOTE | 2019-08-11 15:40 | PT.OPPOC ---
Physical, Occupational & Speech Therapy At [facility] Current Diagnoses Lymphedema, not elsewhere classified (08/07/19) Pain in right lower leg (08/07/19) Pain in left lower leg (08/07/19) Visit Care Team Role Provider Type Jhon Taylor MD Primary Care Provider Physician Specialty: Internal Medicine Address: [address] [place] [address], [id number] Email: [email or web address] Leroy Ramírez MD Attending Provider Physician Specialty: Wound Care Address: [address] [place] [address], [id number] Email: [email or web address] Plan Of Care PT-OP-T Assessment and Plan Start: 08/07/19 14:26 Freq: Status: Active Protocol: Document 08/07/19 14:26 [facility] (Rec: 08/11/19 14:26 [facility] [id number]) Physical Therapy Assessment Goals Four Shelter Goal (LTG) Patient to be independent and compliant with all aspects of lymphedema management to include wearing compression stockings, self-MLD, sequential lymphedema exercises, skin care. LTG Duration 12 wks Three Impairment Unable to don/doff compression stockings Pantograph Engraver Goal (LTG) Patient able to don and doff compression stockings bilateral LE's LTG Duration 12 wks Two Impairment Soft tissue fibrosis Pantograph Engraver Goal (LTG) Decrease soft tissue fibrosis to minimal level to improve lymphatic flow and decrease lymphedema LTG Duration 12 wks One Impairment lymphedema pavel LE's right greater than left Shelter Goal (LTG) Decrease and stabilize lymphedema (no increase or decrease greater than 1 cm over the course of 1 wks) LTG Duration 12 wks Assessment Summary Assessment Patient presents with function -limiting worsening lymphedema and has difficulty with donning and doffing compressing stockings especially s/p fall in which he sustained multiple rib fractures. The pain from his rib fractures may be contributing to his lymphedema as well as he has difficulty with deep breathing which is an important component of lymphatic decongestion, and the pain with donning and doffing his stockings causing him to not wear them also highly contributory. He is highly motivated to continue to improve his health as evidenced by his losing 150# since he last saw this PT. He is hoping to be able to have surgery to remove excess skin but states he has to lose another 50# before that can happen. Physical Therapy Plan Frequency and Duration Frequency of Treatment 2 Duration of Treatment 12 Plan of Care Start Date 08/07/19 Plan of Care End Date 11/09/19 Therapeutic Interventions Therapeutic Interventions Aquatic Therapy,Home Exercise Program,Lymphedema Management, Manual Therapy,Patient/ Caregiver Education,Self-Care/ Home Management,Therapeutic Activities,Therapeutic Exercises Next Visit Focus/Plan Next Note Type Treatment Note Next Visit Plan Skin care, MLD, compression garment reassessment and problem solving for home application, sequential lymphedema exercises. Plan of Care Dates Plan of Care Start Date 08/07/19 Plan of Care End Date 11/09/19 Electronically Signed by: Lisa Patel, PT 08/11/19 [id number] Please Sign and Return: I have reviewed this Plan of Care and certify that the skilled therapy services above are required to meet the patient?s needs. Physician Signature Date Printed Name and Credentials Clinical Instructor Signature Printed Name and Credentials
--- NOTE | 2019-08-11 15:41 | PT.OIE ---
Current Diagnoses Lymphedema, not elsewhere classified (08/07/19) Pain in right lower leg (08/07/19) Pain in left lower leg (08/07/19) Past Medical History (Last Reviewed 07/16/19 @ 10:05 by Hay Wagner DO) Anemia (Acute) Arthritis (Acute) Asthma (Acute) Herniated nucleus pulposus with myelopathy, thoracic (Acute) Herniated nucleus pulposus, L1-2 (Acute) History of migraine headaches (Acute) Obesity (Acute) Spinal stenosis of lumbar region at multiple levels (Acute) Visit Care Team Role Provider Type Jhon Taylor MD Primary Care Provider Physician Specialty: Internal Medicine Address: [address] [place] [address], [phone] Email: [email or web address] Leroy Ramírez MD Attending Provider Physician Specialty: Wound Care Address: [address] [place] [address], [id number] Email: [email or web address] Physical Therapy Initial Evaluation PT-OP-A Visit Information Start: 08/07/19 14:26 Freq: Status: Active Protocol: Document 08/07/19 14:26 [facility] (Rec: 08/07/19 15:47 [facility] [id number]) Out-Patient Physical Therapy Visit Information Visit Information Visit Type Initial Evaluation Visit Start Time 14:30 Visit Stop Time 15:55 Total Visit Minutes 85 Visit Number 1 Number of LIFE ENRICHMENT DIRECTOR Visits 0 Evaluation Information Evaluation Date 08/07/19 Precautions Precautions T2DM, history of nonhealing wounds PT-OP-B Current Condition Start: 08/07/19 14:26 Freq: Status: Active Protocol: Document 08/07/19 14:26 [facility] (Rec: 08/07/19 15:47 [facility] [id number]) Current Condition History of Current Condition Onset Date 2 years Current Complaints worsening lymphedema pavel LE's right greater than left. History of Current Condition idiopathic lymphedema worsening recently, tightness of skin is painful. Uses compression stockings at times , but is very difficult to get on due to pain especially recently in ribs. Recent fall fracturing T2-9 ribs, orbital fractures, stress fractures ribs left side, sprained knees. Patient reports he has lost 150 lbs since last seen for PT. Needs to lose another 50# before surgeon will remove excess skin. Not able to put stockings or lotion on skin due to pain from rib fractures . Prior Treatments and Tests Has compression stockings, wears sporadically. Future Testing and Treatments Planned Seeing wound care for wound right foot and abdomen. Treatment Goals Patient/Caregiver Goals better self-manage lymphedema. Prior Functional Status Baseline Function- ADL's Independent Baseline Function- Mobility Independent Baseline Function- Gait independent Current Functional Impairments (Reported) Functional Limitations- ADL's slow and painful Functional Limitations- Mobility/Gait slow and painful, ill-fitting shoes due to weight loss PT-OP-C Subjective Start: 08/07/19 14:26 Freq: Status: Active Protocol: Document 08/07/19 14:26 [facility] (Rec: 08/11/19 14:26 [facility] [id number]) Patient Questionnaires Lymphedema Life Impact Score Lymphedema Score 68 OP-PT Pain Assessment Pain Assessment Grid Paper Pain Assessment Grid Completed Yes Location Bilateral Lower Back Pain Location Details bilateral LE's, left ribcage Intensity 9 Pain Aggravating Factors Changing Position,ADL's, Activity Pain Alleviating Factors Inactivity PT-OP-E Functional Tests Start: 08/07/19 14:26 Freq: Status: Active Protocol: Document 08/07/19 14:26 [facility] (Rec: 08/11/19 14:26 [facility] [id number]) Functional Tests 2 Minute Walk Test Distance 50 Device Used none PT-OP-J Posture/Palpation/Skin Start: 08/07/19 14:26 Freq: Status: Active Protocol: Document 08/07/19 14:26 [facility] (Rec: 08/11/19 14:26 [facility] [id number]) Skin Assessment Edema Assessment pavel LE's Edema Type Non-Pitting Comments lymphedema w Other Assessments Skin Assessment Comments quarter sized open wound right medial MTP joint. Consulted with wound care for dressing for protection. Patient has wound care appointment next week. PT-OP-K Range of Motion Start: 08/07/19 14:26 Freq: Status: Active Protocol: Document 08/07/19 14:26 [facility] (Rec: 08/11/19 14:26 [facility] [id number]) Hip Goniometric Range of Motion Hip pavel Hip ROM WFL Yes Knee Goniometric Range of Motion Knee pavel Knee ROM WFL No Knee ROM Limitations Comments lacking full knee extension right -12 degrees Ankle and Foot Goniometric Range of Motion Ankle and Foot pavel Ankle/Foot ROM WFL No Dorsiflexion with Knee Flexed 0 Ankle and Foot ROM Limitations ROM Limitations Soft Tissue Tightness,Swelling PT-OP-M Strength Start: 08/07/19 14:26 Freq: Status: Active Protocol: Document 08/07/19 14:26 [facility] (Rec: 08/11/19 14:26 [facility] [id number]) Hip Strength Hip Manual Muscle Testing pavel Flexion (L2) 2- Poor- Extension (S1) 2- Poor- Abduction 3- Fair- External Rotation 3+ Fair+ Internal Rotation 4- Good- Knee Strength Knee Manual Muscle Testing pavel Flexion (S2) 4 Good Extension (L3) 4 Good Ankle/Foot Strength Ankle and Foot Manual Muscle Testing pavel Dorsiflexion (L4) 4- Good- Plantarflexion (S1) 4- Good- PT-OP-N Lymphedema Start: 08/07/19 14:26 Freq: Status: Active Protocol: Document 08/07/19 14:26 [facility] (Rec: 08/11/19 14:26 [facility] [id number]) Lymphedema Measurements Lower Extremity Circumference Measurements Right Affected MT Heads 28.7 cm Medial Malleolus 32.3 cm 10 cm From Medial Malleolus 37.6 cm 20 cm From Medial Malleolus 51.2 cm 30 cm From Medial Malleolus 58.2 cm 40 cm From Medial Malleolus 49.3 cm 50 cm From Medial Malleolus 57.3 cm 60 cm From Medial Malleolus 63.5 cm Left Affected MT Heads 27.2 cm Medial Malleolus 31.3 cm 10 cm From Medial Malleolus 32.4 cm 20 cm From Medial Malleolus 44 cm 30 cm From Medial Malleolus 50.6 cm 40 cm From Medial Malleolus 46.3 cm 50 cm From Medial Malleolus 55.2 cm 60 cm From Medial Malleolus 62.4 cm Comments Lymphedema Comments hyperkeratosis bilateral LE's right greater than left. PT-OP-Q Treatments Start: 08/07/19 14:26 Freq: Status: Active Protocol: Document 08/07/19 14:26 [facility] (Rec: 08/11/19 14:26 [facility] [id number]) Cardio Equipment Recumbent Stepper (Sci-Fit) Duration (Minutes) 10 Resistance 1 Seat Position 15 Other to facilitate lymphatic flow after lymphedema wrapping right LE Lymphedema Treatment Lymphedema Wrapping Body Location right LE toes to knee Materials Artiflex and Comprilan Patient Education Compression Garments discussed importance and need for consistent application. Patient to bring Self Manual Lymphatic Drainage patient unable Sequential Lymphedema Exercises verbal review; patient reports doing at home PT-OP-T Assessment and Plan Start: 08/07/19 14:26 Freq: Status: Active Protocol: Document 08/07/19 14:26 [facility] (Rec: 08/11/19 14:26 [facility] [id number]) Physical Therapy Assessment Goals Four Barrel Brander Goal (LTG) Patient to be independent and compliant with all aspects of lymphedema management to include wearing compression stockings, self-MLD, sequential lymphedema exercises, skin care. LTG Duration 12 wks Three Impairment Unable to don/doff compression stockings Barrel Brander Goal (LTG) Patient able to don and doff compression stockings bilateral LE's LTG Duration 12 wks Two Impairment Soft tissue fibrosis Barrel Brander Goal (LTG) Decrease soft tissue fibrosis to minimal level to improve lymphatic flow and decrease lymphedema LTG Duration 12 wks One Impairment lymphedema pavel LE's right greater than left Barrel Brander Goal (LTG) Decrease and stabilize lymphedema (no increase or decrease greater than 1 cm over the course of 1 wks) LTG Duration 12 wks Assessment Summary Assessment Patient presents with function -limiting worsening lymphedema and has difficulty with donning and doffing compressing stockings especially s/p fall in which he sustained multiple rib fractures. The pain from his rib fractures may be contributing to his lymphedema as well as he has difficulty with deep breathing which is an important component of lymphatic decongestion, and the pain with donning and doffing his stockings causing him to not wear them also highly contributory. He is highly motivated to continue to improve his health as evidenced by his losing 150# since he last saw this PT. He is hoping to be able to have surgery to remove excess skin but states he has to lose another 50# before that can happen. Physical Therapy Plan Frequency and Duration Frequency of Treatment 2 Duration of Treatment 12 Plan of Care Start Date 08/07/19 Plan of Care End Date 11/09/19 Therapeutic Interventions Therapeutic Interventions Aquatic Therapy,Home Exercise Program,Lymphedema Management, Manual Therapy,Patient/ Caregiver Education,Self-Care/ Home Management,Therapeutic Activities,Therapeutic Exercises Next Visit Focus/Plan Next Note Type Treatment Note Next Visit Plan Skin care, MLD, compression garment reassessment and problem solving for home application, sequential lymphedema exercises.
--- NOTE | 2019-09-02 10:12 | PT-OP ANOTE ---
pt. cancelled appointment
--- NOTE | 2019-09-16 16:12 | PT.OTN ---
Current Diagnoses Lymphedema, not elsewhere classified (09/16/19) Pain in right lower leg (09/16/19) Pain in left lower leg (09/16/19) Physical Therapy Treatment Note PT-OP-A Visit Information Start: 08/07/19 14:26 Freq: Status: Active Protocol: Document 09/16/19 15:47 [facility] (Rec: 09/16/19 16:11 [facility] [id number]) Out-Patient Physical Therapy Visit Information Visit Information Visit Type Treatment Note Visit Start Time 14:30 Visit Stop Time 15:45 Total Visit Minutes 75 Visit Number 2 Number of LUMBER RACKER Visits 0 Evaluation Information Evaluation Date 08/07/19 Precautions Precautions T2DM, history of nonhealing wounds PT-OP-B Current Condition Start: 08/07/19 14:26 Freq: Status: Active Protocol: Document 08/07/19 14:26 [facility] (Rec: 08/07/19 15:47 [facility] [id number]) Current Condition History of Current Condition Onset Date 2 years Current Complaints worsening lymphedema pavel LE's right greater than left. History of Current Condition idiopathic lymphedema worsening recently, tightness of skin is painful. Uses compression stockings at times , but is very difficult to get on due to pain especially recently in ribs. Recent fall fracturing T2-9 ribs, orbital fractures, stress fractures ribs left side, sprained knees. Patient reports he has lost 150 lbs since last seen for PT. Needs to lose another 50# before surgeon will remove excess skin. Not able to put stockings or lotion on skin due to pain from rib fractures . Prior Treatments and Tests Has compression stockings, wears sporadically. Future Testing and Treatments Planned Seeing wound care for wound right foot and abdomen. Treatment Goals Patient/Caregiver Goals better self-manage lymphedema. Prior Functional Status Baseline Function- ADL's Independent Baseline Function- Mobility Independent Baseline Function- Gait independent Current Functional Impairments (Reported) Functional Limitations- ADL's slow and painful Functional Limitations- Mobility/Gait slow and painful, ill-fitting shoes due to weight loss PT-OP-C Subjective Start: 08/07/19 14:26 Freq: Status: Active Protocol: Document 09/16/19 15:47 [facility] (Rec: 09/16/19 16:11 [facility] [id number]) OP-PT Subjective Patient Comments Patient Comments Reports he has been compliant to self-care, wearing compression stockings most of the time, trying to exercise more. PT-OP-E Functional Tests Start: 08/07/19 14:26 Freq: Status: Active Protocol: Document 08/07/19 14:26 [facility] (Rec: 08/11/19 14:26 [facility] [id number]) Functional Tests 2 Minute Walk Test Distance 50 Device Used none PT-OP-J Posture/Palpation/Skin Start: 08/07/19 14:26 Freq: Status: Active Protocol: Document 08/07/19 14:26 [facility] (Rec: 08/11/19 14:26 [facility] [id number]) Skin Assessment Edema Assessment pavel LE's Edema Type Non-Pitting Comments lymphedema w Other Assessments Skin Assessment Comments quarter sized open wound right medial MTP joint. Consulted with wound care for dressing for protection. Patient has wound care appointment next week. PT-OP-K Range of Motion Start: 08/07/19 14:26 Freq: Status: Active Protocol: Document 08/07/19 14:26 [facility] (Rec: 08/11/19 14:26 [facility] [id number]) Hip Goniometric Range of Motion Hip pavel Hip ROM WFL Yes Knee Goniometric Range of Motion Knee pavel Knee ROM WFL No Knee ROM Limitations Comments lacking full knee extension right -12 degrees Ankle and Foot Goniometric Range of Motion Ankle and Foot pavel Ankle/Foot ROM WFL No Dorsiflexion with Knee Flexed 0 Ankle and Foot ROM Limitations ROM Limitations Soft Tissue Tightness,Swelling PT-OP-M Strength Start: 08/07/19 14:26 Freq: Status: Active Protocol: Document 08/07/19 14:26 [facility] (Rec: 08/11/19 14:26 [facility] [id number]) Hip Strength Hip Manual Muscle Testing pavel Flexion (L2) 2- Poor- Extension (S1) 2- Poor- Abduction 3- Fair- External Rotation 3+ Fair+ Internal Rotation 4- Good- Knee Strength Knee Manual Muscle Testing pavel Flexion (S2) 4 Good Extension (L3) 4 Good Ankle/Foot Strength Ankle and Foot Manual Muscle Testing pavel Dorsiflexion (L4) 4- Good- Plantarflexion (S1) 4- Good- PT-OP-N Lymphedema Start: 08/07/19 14:26 Freq: Status: Active Protocol: Document 08/07/19 14:26 [facility] (Rec: 08/11/19 14:26 [facility] [id number]) Lymphedema Measurements Lower Extremity Circumference Measurements Right Affected MT Heads 28.7 cm Medial Malleolus 32.3 cm 10 cm From Medial Malleolus 37.6 cm 20 cm From Medial Malleolus 51.2 cm 30 cm From Medial Malleolus 58.2 cm 40 cm From Medial Malleolus 49.3 cm 50 cm From Medial Malleolus 57.3 cm 60 cm From Medial Malleolus 63.5 cm Left Affected MT Heads 27.2 cm Medial Malleolus 31.3 cm 10 cm From Medial Malleolus 32.4 cm 20 cm From Medial Malleolus 44 cm 30 cm From Medial Malleolus 50.6 cm 40 cm From Medial Malleolus 46.3 cm 50 cm From Medial Malleolus 55.2 cm 60 cm From Medial Malleolus 62.4 cm Comments Lymphedema Comments hyperkeratosis bilateral LE's right greater than left. PT-OP-Q Treatments Start: 08/07/19 14:26 Freq: Status: Active Protocol: Document 09/16/19 15:47 [facility] (Rec: 09/16/19 16:11 [facility] [id number]) Cardio Equipment Recumbent Stepper (Sci-Fit) Duration (Minutes) 10 Resistance 1 Seat Position 15 Other to facilitate lymphatic flow after lymphedema wrapping right LE Lymphedema Treatment Manual Lymphatic Drainage Location for right LE lymphedema Lymphedema Wrapping Other patient to don compression stockings when he gets home. Sequential Lymphedema Exercises Location pavel LE's Comments during skin care Patient Education Other Importance of skin care, lotion application, cleaning. PT-OP-T Assessment and Plan Start: 08/07/19 14:26 Freq: Status: Active Protocol: Document 09/16/19 15:47 [facility] (Rec: 09/16/19 16:11 [facility] [id number]) Physical Therapy Assessment Goals Four Nursing Home Goal (LTG) Patient to be independent and compliant with all aspects of lymphedema management to include wearing compression stockings, self-MLD, sequential lymphedema exercises, skin care. LTG Duration 12 wks Three Impairment Unable to don/doff compression stockings An/Sqq 89(V)15 Sonar System Journeyman Goal (LTG) Patient able to don and doff compression stockings bilateral LE's LTG Duration 12 wks Two Impairment Soft tissue fibrosis Nursing Home Goal (LTG) Decrease soft tissue fibrosis to minimal level to improve lymphatic flow and decrease lymphedema LTG Duration 12 wks One Impairment lymphedema pavel LE's right greater than left An/Sqq 89(V)15 Sonar System Journeyman Goal (LTG) Decrease and stabilize lymphedema (no increase or decrease greater than 1 cm over the course of 1 wks) LTG Duration 12 wks Assessment Summary Assessment circumferential measurements reveal significant decrease in edema. Good home compliance. Further reduction achieved with MLD today. Re-emphasized imnportance of having compresison stockings or wraps available to apply after treatment. Physical Therapy Plan Frequency and Duration Frequency of Treatment 2 Duration of Treatment 12 Plan of Care Start Date 08/07/19 Plan of Care End Date 12/09/19 Therapeutic Interventions Therapeutic Interventions Aquatic Therapy,Home Exercise Program,Lymphedema Management, Manual Therapy,Patient/ Caregiver Education,Self-Care/ Home Management,Therapeutic Activities,Therapeutic Exercises Next Visit Focus/Plan Next Note Type Treatment Note Next Visit Plan Continue lymphedema management
--- NOTE | 2019-09-18 16:45 | PT.OTN ---
Current Diagnoses Lymphedema, not elsewhere classified (09/18/19) Pain in right lower leg (09/18/19) Pain in left lower leg (09/18/19) Physical Therapy Treatment Note PT-OP-A Visit Information Start: 08/07/19 14:26 Freq: Status: Active Protocol: Document 09/18/19 13:00 [facility]AK (Rec: 09/18/19 14:28 [facility] [id number]) Out-Patient Physical Therapy Visit Information Visit Information Visit Type Treatment Note Visit Note (patient arrived late) Visit Start Time 13:16 Visit Stop Time 14:30 Total Visit Minutes 74 Visit Number 3 Number of DELINQUENT NOTICE MACHINE OPERATOR Visits 0 Precautions Precautions T2DM, history of nonhealing wounds PT-OP-B Current Condition Start: 08/07/19 14:26 Freq: Status: Active Protocol: Document 08/07/19 14:26 [facility] (Rec: 08/07/19 15:47 [facility] [id number]) Current Condition History of Current Condition Onset Date 2 years Current Complaints worsening lymphedema pavel LE's right greater than left. History of Current Condition idiopathic lymphedema worsening recently, tightness of skin is painful. Uses compression stockings at times , but is very difficult to get on due to pain especially recently in ribs. Recent fall fracturing T2-9 ribs, orbital fractures, stress fractures ribs left side, sprained knees. Patient reports he has lost 150 lbs since last seen for PT. Needs to lose another 50# before surgeon will remove excess skin. Not able to put stockings or lotion on skin due to pain from rib fractures . Prior Treatments and Tests Has compression stockings, wears sporadically. Future Testing and Treatments Planned Seeing wound care for wound right foot and abdomen. Treatment Goals Patient/Caregiver Goals better self-manage lymphedema. Prior Functional Status Baseline Function- ADL's Independent Baseline Function- Mobility Independent Baseline Function- Gait independent Current Functional Impairments (Reported) Functional Limitations- ADL's slow and painful Functional Limitations- Mobility/Gait slow and painful, ill-fitting shoes due to weight loss PT-OP-C Subjective Start: 08/07/19 14:26 Freq: Status: Active Protocol: Document 09/18/19 13:00 SAK (Rec: 09/18/19 16:44 [facility] [id number]) OP-PT Subjective Patient Comments Patient Comments Reports he went to put on his compression stockings but his dog had chewed them, has ordered new ones. Was pleased after last session his legs didn't feel as tight. Patient Reported Progress Improving PT-OP-E Functional Tests Start: 08/07/19 14:26 Freq: Status: Active Protocol: Document 08/07/19 14:26 [facility] (Rec: 08/11/19 14:26 [facility] [id number]) Functional Tests 2 Minute Walk Test Distance 50 Device Used none PT-OP-J Posture/Palpation/Skin Start: 08/07/19 14:26 Freq: Status: Active Protocol: Document 08/07/19 14:26 [facility] (Rec: 08/11/19 14:26 [facility] [id number]) Skin Assessment Edema Assessment pavel LE's Edema Type Non-Pitting Comments lymphedema w Other Assessments Skin Assessment Comments quarter sized open wound right medial MTP joint. Consulted with wound care for dressing for protection. Patient has wound care appointment next week. PT-OP-K Range of Motion Start: 08/07/19 14:26 Freq: Status: Active Protocol: Document 08/07/19 14:26 [facility] (Rec: 08/11/19 14:26 [facility] [id number]) Hip Goniometric Range of Motion Hip pavel Hip ROM WFL Yes Knee Goniometric Range of Motion Knee pavel Knee ROM WFL No Knee ROM Limitations Comments lacking full knee extension right -12 degrees Ankle and Foot Goniometric Range of Motion Ankle and Foot pavel Ankle/Foot ROM WFL No Dorsiflexion with Knee Flexed 0 Ankle and Foot ROM Limitations ROM Limitations Soft Tissue Tightness,Swelling PT-OP-M Strength Start: 08/07/19 14:26 Freq: Status: Active Protocol: Document 08/07/19 14:26 [facility] (Rec: 08/11/19 14:26 [facility] [id number]) Hip Strength Hip Manual Muscle Testing pavel Flexion (L2) 2- Poor- Extension (S1) 2- Poor- Abduction 3- Fair- External Rotation 3+ Fair+ Internal Rotation 4- Good- Knee Strength Knee Manual Muscle Testing pavel Flexion (S2) 4 Good Extension (L3) 4 Good Ankle/Foot Strength Ankle and Foot Manual Muscle Testing pavel Dorsiflexion (L4) 4- Good- Plantarflexion (S1) 4- Good- PT-OP-N Lymphedema Start: 08/07/19 14:26 Freq: Status: Active Protocol: Document 08/07/19 14:26 [facility] (Rec: 08/11/19 14:26 [facility] [id number]) Lymphedema Measurements Lower Extremity Circumference Measurements Right Affected MT Heads 28.7 cm Medial Malleolus 32.3 cm 10 cm From Medial Malleolus 37.6 cm 20 cm From Medial Malleolus 51.2 cm 30 cm From Medial Malleolus 58.2 cm 40 cm From Medial Malleolus 49.3 cm 50 cm From Medial Malleolus 57.3 cm 60 cm From Medial Malleolus 63.5 cm Left Affected MT Heads 27.2 cm Medial Malleolus 31.3 cm 10 cm From Medial Malleolus 32.4 cm 20 cm From Medial Malleolus 44 cm 30 cm From Medial Malleolus 50.6 cm 40 cm From Medial Malleolus 46.3 cm 50 cm From Medial Malleolus 55.2 cm 60 cm From Medial Malleolus 62.4 cm Comments Lymphedema Comments hyperkeratosis bilateral LE's right greater than left. PT-OP-Q Treatments Start: 08/07/19 14:26 Freq: Status: Active Protocol: Document 09/18/19 13:00 [facility] (Rec: 09/18/19 14:28 [facility] [id number]) Cardio Equipment Recumbent Stepper (Sci-Fit) Duration (Minutes) 10 Resistance 1 Seat Position 15 Other to facilitate lymphatic flow after lymphedema wrapping right LE Lymphedema Treatment Manual Lymphatic Drainage Location for right LE lymphedema Lymphedema Wrapping Body Location right LE Materials Stockinette, Artiflex, and Comprilan (6,8,10) to right LE Tubigrip left LE (F toes to above ankle, G toes to popliteal fossa) Other patient advised to wear compression wraps on right for 24 hours, remove Tubigrip for at night. Compression Garment Assessment Compression Garment Assessment Details Patient has ordered new stockings due to being damaged by his dog Other Other Skin care provided, moisturizing with Cetaphil lotion PT-OP-T Assessment and Plan Start: 08/07/19 14:26 Freq: Status: Active Protocol: Document 09/18/19 13:00 [facility] (Rec: 09/18/19 14:28 [facility] [id number]) Physical Therapy Assessment Goals Four Intermediate Goal (LTG) Patient to be independent and compliant with all aspects of lymphedema management to include wearing compression stockings, self-MLD, sequential lymphedema exercises, skin care. LTG Duration 12 wks Three Impairment Unable to don/doff compression stockings Intermediate Goal (LTG) Patient able to don and doff compression stockings bilateral LE's LTG Duration 12 wks Two Impairment Soft tissue fibrosis Intermediate Goal (LTG) Decrease soft tissue fibrosis to minimal level to improve lymphatic flow and decrease lymphedema LTG Duration 12 wks One Impairment lymphedema pavel LE's right greater than left Front Desk Team Member Goal (LTG) Decrease and stabilize lymphedema (no increase or decrease greater than 1 cm over the course of 1 wks) LTG Duration 12 wks Assessment Summary Assessment Good response to MLD last session, reports legs felt less tight, unable to wear compression stockings due to damage from his dog, has ordered new ones. Lymphedema wrapping and Tubigrip applied as above today. Physical Therapy Plan Frequency and Duration Frequency of Treatment 2 Duration of Treatment 12 Plan of Care Start Date 08/07/19 Plan of Care End Date 12/09/19 Therapeutic Interventions Therapeutic Interventions Aquatic Therapy,Home Exercise Program,Lymphedema Management, Manual Therapy,Patient/ Caregiver Education,Self-Care/ Home Management,Therapeutic Activities,Therapeutic Exercises Next Visit Focus/Plan Next Note Type Treatment Note Next Visit Plan Continue lymphedema management . Circumferential measurements.
--- NOTE | 2019-09-23 16:46 | PT.OTN ---
Current Diagnoses Lymphedema, not elsewhere classified (09/23/19) Pain in right lower leg (09/23/19) Pain in left lower leg (09/23/19) Physical Therapy Treatment Note PT-OP-A Visit Information Start: 08/07/19 14:26 Freq: Status: Active Protocol: Document 09/23/19 13:04 [facility] (Rec: 09/23/19 14:52 [facility] [id number]) Out-Patient Physical Therapy Visit Information Visit Information Visit Type Treatment Note Visit Start Time 13:00 Visit Stop Time 14:30 Total Visit Minutes 90 Visit Number 4 Number of FIELD SERVICE ENGINEER Visits 0 Precautions Precautions T2DM, history of nonhealing wounds PT-OP-B Current Condition Start: 08/07/19 14:26 Freq: Status: Active Protocol: Document 08/07/19 14:26 [facility]AK (Rec: 08/07/19 15:47 [facility] [id number]) Current Condition History of Current Condition Onset Date 2 years Current Complaints worsening lymphedema pavel LE's right greater than left. History of Current Condition idiopathic lymphedema worsening recently, tightness of skin is painful. Uses compression stockings at times , but is very difficult to get on due to pain especially recently in ribs. Recent fall fracturing T2-9 ribs, orbital fractures, stress fractures ribs left side, sprained knees. Patient reports he has lost 150 lbs since last seen for PT. Needs to lose another 50# before surgeon will remove excess skin. Not able to put stockings or lotion on skin due to pain from rib fractures . Prior Treatments and Tests Has compression stockings, wears sporadically. Future Testing and Treatments Planned Seeing wound care for wound right foot and abdomen. Treatment Goals Patient/Caregiver Goals better self-manage lymphedema. Prior Functional Status Baseline Function- ADL's Independent Baseline Function- Mobility Independent Baseline Function- Gait independent Current Functional Impairments (Reported) Functional Limitations- ADL's slow and painful Functional Limitations- Mobility/Gait slow and painful, ill-fitting shoes due to weight loss PT-OP-C Subjective Start: 08/07/19 14:26 Freq: Status: Active Protocol: Document 09/23/19 13:04 [facility] (Rec: 09/23/19 16:46 [facility] [id number]) OP-PT Subjective Patient Comments Patient Comments States he cut his compression wraps off due to having difficult getting the tape undone, though he felt it was helpful. Agrees not to cut off anymore and to purchase a set of wraps himself. States swelling was better but he overdid it playing with his dogs yesterday and has noticed increase in swelling since. PT-OP-E Functional Tests Start: 08/07/19 14:26 Freq: Status: Active Protocol: Document 08/07/19 14:26 [facility] (Rec: 08/11/19 14:26 [facility] [id number]) Functional Tests 2 Minute Walk Test Distance 50 Device Used none PT-OP-J Posture/Palpation/Skin Start: 08/07/19 14:26 Freq: Status: Active Protocol: Document 08/07/19 14:26 [facility] (Rec: 08/11/19 14:26 [facility] [id number]) Skin Assessment Edema Assessment pavel LE's Edema Type Non-Pitting Comments lymphedema w Other Assessments Skin Assessment Comments quarter sized open wound right medial MTP joint. Consulted with wound care for dressing for protection. Patient has wound care appointment next week. PT-OP-K Range of Motion Start: 08/07/19 14:26 Freq: Status: Active Protocol: Document 08/07/19 14:26 [facility] (Rec: 08/11/19 14:26 [facility] [id number]) Hip Goniometric Range of Motion Hip pavel Hip ROM WFL Yes Knee Goniometric Range of Motion Knee pavel Knee ROM WFL No Knee ROM Limitations Comments lacking full knee extension right -12 degrees Ankle and Foot Goniometric Range of Motion Ankle and Foot pavel Ankle/Foot ROM WFL No Dorsiflexion with Knee Flexed 0 Ankle and Foot ROM Limitations ROM Limitations Soft Tissue Tightness,Swelling PT-OP-M Strength Start: 08/07/19 14:26 Freq: Status: Active Protocol: Document 08/07/19 14:26 [facility] (Rec: 08/11/19 14:26 [facility] [id number]) Hip Strength Hip Manual Muscle Testing pavel Flexion (L2) 2- Poor- Extension (S1) 2- Poor- Abduction 3- Fair- External Rotation 3+ Fair+ Internal Rotation 4- Good- Knee Strength Knee Manual Muscle Testing pavel Flexion (S2) 4 Good Extension (L3) 4 Good Ankle/Foot Strength Ankle and Foot Manual Muscle Testing pavel Dorsiflexion (L4) 4- Good- Plantarflexion (S1) 4- Good- PT-OP-N Lymphedema Start: 08/07/19 14:26 Freq: Status: Active Protocol: Document 09/23/19 13:04 [facility] (Rec: 09/23/19 16:46 [facility] [id number]) Lymphedema Measurements Lower Extremity Circumference Measurements Right Affected MT Heads 28.3 cm Medial Malleolus 32.4 cm 10 cm From Medial Malleolus 35 cm 20 cm From Medial Malleolus 47.5 cm 30 cm From Medial Malleolus 54.6 cm 40 cm From Medial Malleolus 49.1 cm 50 cm From Medial Malleolus 51.7 cm 60 cm From Medial Malleolus 60.5 cm PT-OP-Q Treatments Start: 08/07/19 14:26 Freq: Status: Active Protocol: Document 09/23/19 13:04 [facility] (Rec: 09/23/19 14:52 [facility] [id number]) Cardio Equipment Recumbent Stepper (Sci-Fit) Duration (Minutes) 10 Resistance 1 Seat Position 15 Other to facilitate lymphatic flow after lymphedema wrapping right LE Lymphedema Treatment Lymphedema Wrapping Body Location pavel LE's Materials Stockinette, Artiflex, and Comprilan (6,8,10,10) to pavel LE Compression Garment Assessment Compression Garment Assessment Details Patient obtained 1 stocking but 10-15 mm Hg, advised the compression level not high enough; recommend 30-40 mm Hg Other Other Skin care provided, moisturizing with Cetaphil lotion PT-OP-T Assessment and Plan Start: 08/07/19 14:26 Freq: Status: Active Protocol: Document 09/23/19 13:04 [facility] (Rec: 09/23/19 16:46 [facility] [id number]) Physical Therapy Assessment Goals Four Business Intelligence Architect Goal (LTG) Patient to be independent and compliant with all aspects of lymphedema management to include wearing compression stockings, self-MLD, sequential lymphedema exercises, skin care. LTG Duration 12 wks Three Impairment Unable to don/doff compression stockings Business Intelligence Architect Goal (LTG) Patient able to don and doff compression stockings bilateral LE's LTG Duration 12 wks Two Impairment Soft tissue fibrosis Care Home Goal (LTG) Decrease soft tissue fibrosis to minimal level to improve lymphatic flow and decrease lymphedema LTG Duration 12 wks One Impairment lymphedema pavel LE's right greater than left Care Home Goal (LTG) Decrease and stabilize lymphedema (no increase or decrease greater than 1 cm over the course of 1 wks) LTG Duration 12 wks Assessment Summary Assessment Good response to last treatment but no compression worn since cutting wraps off and overdoing time on feet yesterday. Stressed need for compression consistently in order for treatment and results to be effective. Physical Therapy Plan Frequency and Duration Frequency of Treatment 2 Duration of Treatment 12 Plan of Care Start Date 08/07/19 Plan of Care End Date 12/09/19 Therapeutic Interventions Therapeutic Interventions Aquatic Therapy,Home Exercise Program,Lymphedema Management, Manual Therapy,Patient/ Caregiver Education,Self-Care/ Home Management,Therapeutic Activities,Therapeutic Exercises Next Visit Focus/Plan Next Note Type Treatment Note Next Visit Plan problem-solve home compression , show patient lymphedema wraps as option. Continue lymphedema management.
--- NOTE | 2020-04-05 11:25 | PT.OPDS ---
Current Diagnoses Lymphedema, not elsewhere classified (09/23/19) Pain in right lower leg (09/23/19) Pain in left lower leg (09/23/19) Visit Care Team Role Provider Type Jhon Taylor MD Primary Care Provider Physician Specialty: Internal Medicine Address: [address] [place] [address], [id number] Email: [email or web address] Leroy Ramírez MD Attending Provider Physician Specialty: Wound Care Address: [address] [place] [address], [id number] Email: [email or web address] Visit Number Visit Number 4 Discharge Summary PT-OP-B Current Condition Start: 08/07/19 14:26 Freq: Status: Active Protocol: Document 08/07/19 14:26 SAK (Rec: 08/07/19 15:47 SAK [id number]) Current Condition History of Current Condition Onset Date 2 years Current Complaints worsening lymphedema pavel LE's right greater than left. History of Current Condition idiopathic lymphedema worsening recently, tightness of skin is painful. Uses compression stockings at times , but is very difficult to get on due to pain especially recently in ribs. Recent fall fracturing T2-9 ribs, orbital fractures, stress fractures ribs left side, sprained knees. Patient reports he has lost 150 lbs since last seen for PT. Needs to lose another 50# before surgeon will remove excess skin. Not able to put stockings or lotion on skin due to pain from rib fractures . Prior Treatments and Tests Has compression stockings, wears sporadically. Future Testing and Treatments Planned Seeing wound care for wound right foot and abdomen. Treatment Goals Patient/Caregiver Goals better self-manage lymphedema. Prior Functional Status Baseline Function- ADL's Independent Baseline Function- Mobility Independent Baseline Function- Gait independent Current Functional Impairments (Reported) Functional Limitations- ADL's slow and painful Functional Limitations- Mobility/Gait slow and painful, ill-fitting shoes due to weight loss PT-OP-C Subjective Start: 08/07/19 14:26 Freq: Status: Active Protocol: Document 09/23/19 13:04 SAK (Rec: 09/23/19 16:46 SAK [id number]) OP-PT Subjective Patient Comments Patient Comments States he cut his compression wraps off due to having difficult getting the tape undone, though he felt it was helpful. Agrees not to cut off anymore and to purchase a set of wraps himself. States swelling was better but he overdid it playing with his dogs yesterday and has noticed increase in swelling since. PT-OP-E Functional Tests Start: 08/07/19 14:26 Freq: Status: Active Protocol: Document 08/07/19 14:26 [facility] (Rec: 08/11/19 14:26 [facility] [id number]) Functional Tests 2 Minute Walk Test Distance 50 Device Used none PT-OP-J Posture/Palpation/Skin Start: 08/07/19 14:26 Freq: Status: Active Protocol: Document 08/07/19 14:26 [facility] (Rec: 08/11/19 14:26 [facility] [id number]) Skin Assessment Edema Assessment pavel LE's Edema Type Non-Pitting Comments lymphedema w Other Assessments Skin Assessment Comments quarter sized open wound right medial MTP joint. Consulted with wound care for dressing for protection. Patient has wound care appointment next week. PT-OP-K Range of Motion Start: 08/07/19 14:26 Freq: Status: Active Protocol: Document 08/07/19 14:26 [facility] (Rec: 08/11/19 14:26 [facility] [id number]) Hip Goniometric Range of Motion Hip pavel Hip ROM WFL Yes Knee Goniometric Range of Motion Knee pavel Knee ROM WFL No Knee ROM Limitations Comments lacking full knee extension right -12 degrees Ankle and Foot Goniometric Range of Motion Ankle and Foot pavel Ankle/Foot ROM WFL No Dorsiflexion with Knee Flexed 0 Ankle and Foot ROM Limitations ROM Limitations Soft Tissue Tightness,Swelling PT-OP-M Strength Start: 08/07/19 14:26 Freq: Status: Active Protocol: Document 08/07/19 14:26 [facility] (Rec: 08/11/19 14:26 [facility] [id number]) Hip Strength Hip Manual Muscle Testing pavel Flexion (L2) 2- Poor- Extension (S1) 2- Poor- Abduction 3- Fair- External Rotation 3+ Fair+ Internal Rotation 4- Good- Knee Strength Knee Manual Muscle Testing pavel Flexion (S2) 4 Good Extension (L3) 4 Good Ankle/Foot Strength Ankle and Foot Manual Muscle Testing pavel Dorsiflexion (L4) 4- Good- Plantarflexion (S1) 4- Good- PT-OP-N Lymphedema Start: 08/07/19 14:26 Freq: Status: Active Protocol: Document 09/23/19 13:04 [facility] (Rec: 09/23/19 16:46 [facility] [id number]) Lymphedema Measurements Lower Extremity Circumference Measurements Right Affected MT Heads 28.3 cm Medial Malleolus 32.4 cm 10 cm From Medial Malleolus 35 cm 20 cm From Medial Malleolus 47.5 cm 30 cm From Medial Malleolus 54.6 cm 40 cm From Medial Malleolus 49.1 cm 50 cm From Medial Malleolus 51.7 cm 60 cm From Medial Malleolus 60.5 cm PT-OP-T Assessment and Plan Start: 08/07/19 14:26 Freq: Status: Active Protocol: Document 04/05/20 11:24 [facility] (Rec: 04/05/20 11:25 [facility] [id number]) Physical Therapy Plan Discharge Physical Therapy Discharge Reasons No Longer Attending PT
== END 2020-04-06 10:48 ==
LOC: PHYS 13:00
PROVIDERS: PCP Internal Medicine; Visit Provider Family Medicine
DX: I89.0 Lymphedema, not elsewhere classified (principal); M79.662 Pain in left lower leg; M79.661 Pain in right lower leg
CPT/HCPCS: 97110; 97140; 97162

== ENCOUNTER → 2019-10-06 12:37 | Outpatient (CLI) | payer OTHER, SELFPAY ==
[2019-02-27 16:29] VITALS: BMI 53.1
--- NOTE | 2019-10-06 | DI.CT.S_ITS ---
PROCEDURE: CT SINUS SCREEN WO CON INDICATIONS: Other chronic sinusitis TECHNIQUE: Noncontrast 3.0 mm axial images acquired from the frontal sinuses to the mid-sella, with coronal and sagittal reformats. For radiation dose reduction, the following was used: automated exposure control, adjustment of mA and/or kV according to patient size. COMPARISON: [facility], CT, CT FACIAL BONES WO CON, 07/10/2019, 13:32. FINDINGS: Severe mucosal thickening causes complete opacification of the right maxillary sinus. Mild mucosal thickening noted in the floor of the left maxillary sinus. Ethmoid air cells, sphenoid sinuses and frontal sinuses are normally aerated. No air-fluid levels are identified. The right osteomeatal unit is opacified. The left ostiomeatal unit is patent. The bilateral paradoxical middle turbinates are noted. No mark bullosa. Nasal septum is slightly deviated to the right anteriorly. There is slight osseous thickening involving the right maxillary sinus no. No osseous erosive changes are osseous remodeling. IMPRESSION: 1. Severe, chronic right maxillary sinusitis. 2. Mild chronic left actually sinusitis. Dictated by: Karuna Lane MD, PhD on 10/06/2019 at 15:33 Approved by: Karuna Lane MD, PhD on 10/06/2019 at 15:37
== END ==
PROVIDERS: PCP Internal Medicine; Referring Provider Otolaryngology; Visit Provider Otolaryngology
DX: J32.8 Other chronic sinusitis (principal)
CPT/HCPCS: 70486

== ENCOUNTER → 2019-12-31 11:40 | Outpatient (CLI) | payer OTHER, MEDICAID, SELFPAY ==
[2019-02-27 16:29] VITALS: BMI 53.1
[2019-12-31 13:35] LABS: Add Manual Diff / Slide Review NO; Basophils Absolute Auto 0 /uL (0-100); Basophils Percent Auto 0.6 % (0-2); Eosinophils Absolute Auto 200 /uL (0-450); Eosinophils Percent Auto 2.2 % (2-4); Hematocrit 39.3 % (41-53); Hemoglobin 13.5 g/dL (13.5-17.5); Lymphocytes Absolute Auto 1500 /uL (1100-4500); Lymphocytes Percent Auto 22.3 % (25-40); Mean Corpuscular HGB Conc 34.4 % (30-36); Mean Corpuscular Hemoglobin 29.8 PG (26-34); Mean Corpuscular Volume 86.6 fL (80-100); Monocytes Absolute Auto 800 /uL (0-900); Monocytes Percent Auto 10.9 % (3-14); Neutrophils Absolute Auto 4500 /uL (1500-7000); Platelet Count 244 X10^3/uL (150-400); Red Blood Cell Count 4.53 X10^6/uL (4.5-5.9); Red Cell Distribution Width 13.7 % (11.6-14.8)
[2019-12-31 13:39] LABS: Alanine Aminotransferase 41 IU/L (<50); Albumin 4.7 g/dL (3.5-5.0); Albumin Globulin Ratio 1.3 (1.0-2.8); Alkaline Phosphatase 63 U/L (38-126); Aspartate Aminotransferase 44 IU/L (17-59); BUN Creatinine Ratio 19.8 (6-22); Bilirubin Total 0.6 mg/dL (0.2-1.3); Blood Urea Nitrogen 16 mg/dL (9-20); Calcium 9.5 mg/dL (8.4-10.2); Carbon Dioxide 30 mmol/L (22-32); Chloride 97 mmol/L (98-107); Cholesterol 96 mg/dL (140-199); Estimated Glomerular Filt Rate > 60.0 mL/min (>60); Globulin 3.5 g/dL (1.7-4.1); Glucose 114 mg/dL (70-100); HDL Cholesterol 25 mg/dL (40-60); HEMOLYSIS < 15 (0-50); LDL Cholesterol Calculated 57 mg/dL (<100); Potassium 4.9 mmol/L (3.4-5.1); Sodium 136 mmol/L (137-145); Total Protein 8.2 g/dL (6.3-8.2); Triglycerides 70 mg/dL (35-150)
[2019-12-31 13:43] LABS: Hemoglobin A1C% w Est Avg Glu 6.2 % (4.0-6.0)
[2019-12-31 13:58] LABS: TSH w/ Reflex to FT4 0.46 uIU/mL (0.47-4.68)
[2019-12-31 14:23] LABS: Free T4, Direct Thyroxine 0.87 ng/dL (0.78-2.19)
== END ==
PROVIDERS: PCP Internal Medicine; Referring Provider Internal Medicine; Visit Provider Internal Medicine
DX: R60.9 Edema, unspecified (principal); E78.2 Mixed hyperlipidemia; E11.9 Type 2 diabetes mellitus without complications
CPT/HCPCS: 36415; 80053; 80061; 83036; 84439; 84443; 85025

== ENCOUNTER → 2020-02-18 13:23 | Outpatient (CLI) | payer OTHER, MEDICAID, SELFPAY ==
[2019-02-27 16:29] VITALS: BMI 53.1
[2020-02-18 13:50] LABS: Add Manual Diff / Slide Review NO; Basophils Absolute Auto 0 /uL (0-100); Basophils Percent Auto 0.3 % (0-2); Eosinophils Absolute Auto 100 /uL (0-450); Eosinophils Percent Auto 0.8 % (2-4); Hemoglobin 11.8 g/dL (13.5-17.5); Lymphocytes Absolute Auto 1100 /uL (1100-4500); Lymphocytes Percent Auto 10.3 % (25-40); Mean Corpuscular HGB Conc 33.7 % (30-36); Mean Corpuscular Hemoglobin 29.4 PG (26-34); Monocytes Absolute Auto 1000 /uL (0-900); Monocytes Percent Auto 9.6 % (3-14); Neutrophils Absolute Auto 8600 /uL (1500-7000); Platelet Count 184 X10^3/uL (150-400); Red Blood Cell Count 4.02 X10^6/uL (4.5-5.9); Red Cell Distribution Width 15.8 % (11.6-14.8); White Blood Cell Count 10.8 X10^3/uL (4.5-11.0)
[2020-02-18 14:02] LABS: Hemoglobin A1C% w Est Avg Glu 6.4 % (4.0-6.0)
[2020-02-18 14:09] LABS: Alanine Aminotransferase 31 IU/L (<50); Albumin Globulin Ratio 1.3 (1.0-2.8); Alkaline Phosphatase 62 U/L (38-126); Aspartate Aminotransferase 32 IU/L (17-59); BUN Creatinine Ratio 16.2 (6-22); Bilirubin Total 0.8 mg/dL (0.2-1.3); Blood Urea Nitrogen 11 mg/dL (9-20); Calcium 9.3 mg/dL (8.4-10.2); Carbon Dioxide 32 mmol/L (22-32); Chloride 98 mmol/L (98-107); Cholesterol 110 mg/dL (140-199); Estimated Glomerular Filt Rate > 60.0 mL/min (>60); Globulin 3.2 g/dL (1.7-4.1); Glucose 134 mg/dL (70-100); HDL Cholesterol 38 mg/dL (40-60); HEMOLYSIS < 15 (0-50); LDL Cholesterol Calculated 59 mg/dL (<100); Potassium 4.6 mmol/L (3.4-5.1); Sodium 137 mmol/L (137-145); Total Protein 7.2 g/dL (6.3-8.2); Triglycerides 65 mg/dL (35-150)
[2020-02-18 14:38] LABS: TSH w/ Reflex to FT4 0.53 uIU/mL (0.47-4.68)
[2020-02-18 14:57] LABS: Vitamin B12 736 pg/mL (239-931)
[2020-02-18 17:00] LABS: Vitamin D 25 Hydroxy (D3) 56.2 ng/mL (30.0-100.0)
[2020-02-29 13:36] LABS: Nicotinamide 9.9 ng/mL (5.2-72.1); Nicotinic Acid <5.0 ng/mL (0.0-5.0)
== END ==
PROVIDERS: PCP Internal Medicine; Referring Provider Internal Medicine; Visit Provider Internal Medicine
DX: E78.2 Mixed hyperlipidemia (principal); E11.9 Type 2 diabetes mellitus without complications; R60.9 Edema, unspecified
CPT/HCPCS: 36415; 80053; 80061; 82306; 82607; 83036; 84443; 84591; 85025

== ENCOUNTER 2020-03-26 11:05 | Emergency (ER) | payer OTHER, MEDICAID, SELFPAY ==
[2019-02-27 16:29] VITALS: BMI 53.1
[2020-03-26] VITALS (11 sets, daily range): BP systolic 107–148; BP diastolic 60–67; PULSE 77–85; RESP 18–31; TEMP 36.3–37; O2SAT 92–98; BMI 48.2
--- NOTE | 2020-03-26 12:03 | ED.WEAKNESS ---
HPI - Weakness General Chief complaint: Urogenital-Male Stated complaint: Lost Ability to urinate. Time Seen by Provider: 03/26/20 11:47 Source: patient and family Mode of arrival: Family Vehicle Limitations: no limitations History of Present Illness HPI Narrative: The patient is a 54-year-old overweight male presenting with increased fatigue and decreased urination. He has had decreased oral intake for the last 2 days he says he has been unable to eat or drink because he feels nauseated when he does. He denies any abdominal pain chest pain or worsening short of breath. He says he is short of breath constantly due to his asthma but denies any worsening. He denies any fever chills sweats changes in taste or smell. His biggest complaint today is extreme weakness. He says he really has not urinated in 2 days. Bladder scan shows 125 mL. states that this happened to him previously last month he slept for about 6 days did not eat or drink anything and then his symptoms improved in he improved. He followed up with his primary care provider who told him to just monitor it. MD Complaint: generalized weakness Related Data Home Medications Medication Instructions Recorded Confirmed multivitamin 1 cap PO QDAY #0 10/13/11 05/08/19 potassium chloride [Klor-Con M20] 20 meq PO AMCC #0 tab 04/18/16 07/10/19 spironolactone 100 mg PO BID #0 04/18/16 07/10/19 carvedilol [Coreg] 25 mg PO BIDCC #60 09/28/17 07/10/19 duloxetine 60 mg PO BID #30 09/28/17 07/10/19 cholecalciferol (vitamin D3) 50,000 unit PO 2XW #0 10/11/17 05/08/19 metolazone 5 mg PO BID #0 10/11/17 05/08/19 terbinafine HCl 250 mg PO QDAYP PRN #0 10/11/17 05/08/19 aspirin 81 mg PO DAILY 05/28/18 05/08/19 levocetirizine [Xyzal] 5 mg PO BID 05/28/18 07/10/19 levothyroxine 250 mcg PO DAILY 05/28/18 07/10/19 liothyronine 50 mcg PO DAILY 05/28/18 07/10/19 metformin 1,000 mg PO BID 05/28/18 07/10/19 naloxone 1 dose IM .ONCE PRN 05/28/18 05/08/19 oxycodone-acetaminophen [Percocet] 1 tab PO TID PRN MDD 3 05/28/18 07/10/19 polyethylene glycol 3350 [Miralax] 17 g PO DAILY 05/28/18 05/08/19 pregabalin [Lyrica] 1 cap PO TID 05/28/18 07/10/19 sennosides [senna] 3 tab PO BID 05/28/18 05/08/19 tadalafil [Cialis] 5 mg PO DAILY 05/28/18 07/10/19 tamsulosin [Flomax] 0.4 mg PO DAILY 05/28/18 07/10/19 torsemide 40 mg PO TID 05/28/18 07/10/19 fentanyl 100 mcg/hr transdermal 1 patch TRANSDERMAL Q72H 12/25/18 07/10/19 patch epinephrine 0.3 mg IM PRN PRN 07/10/19 07/10/19 hydrochlorothiazide 25 mg PO DAILY 07/10/19 07/10/19 insulin degludec [Tresiba SUBCUT 07/10/19 FlexTouch U-100] methocarbamol 750 mg PO Q4H PRN 07/10/19 07/10/19 mirtazapine 45 mg PO BEDTIME 07/10/19 07/10/19 naloxone 0.4 mg IM .ONCE PRN 07/10/19 07/10/19 olopatadine 1 drp OPHTHALMIC (EYE) DIRECTED 07/10/19 07/10/19 tramadol 50 mg PO Q4H PRN 07/10/19 07/10/19 Previous Rx's Medication Instructions Recorded oxycodone-acetaminophen [Endocet] 2 tab PO Q4-6H PRN #14 tab 07/10/19 Allergies Allergy/AdvReac Type Severity Reaction Status Date / Time heparin (porcine) Allergy Severe BREATHINBG Verified 03/26/20 11:37 [HEPARIN,PORCINE] DIFFICULTIES Penicillins Allergy Severe RASH, Verified 03/26/20 11:37 THROAT SWELLING Pork/Porcine Containing Allergy Severe RASH, Verified 03/26/20 11:37 Products THROAT SWELLING, VOMITING Review of Systems Review of Systems ROS Unobtainable: All systems reviewed & are unremarkable except as noted in HPI and below Constitutional Constitutional: Reports fatigue, Denies fever(s), Denies frequent falls, Denies increased appetite and Reports poor appetite ENT Ears, Nose, Mouth, and Throat: Denies change in voice, Denies neck pain and Denies sore throat Cardiovascular Cardiovascular: Denies chest pain, Denies irregular heart rhythm, Denies lightheadedness, Denies palpitations, Reports dyspnea (Chronic) and Denies orthopnea Respiratory Respiratory: Reports as per HPI and Reports dyspnea (Chronic) Gastrointestinal Gastrointestinal: Denies abdominal pain and Reports nausea (When he tries to eat) Genitourinary Genitourinary: Reports as per HPI Genitourinary: Reports as per HPI Musculoskeletal Musculoskeletal: Denies back pain and Denies neck pain Integumentary/Breasts Skin/Breast: Denies pruritus, Denies erythema, Denies rash and Denies wounds Neurologic Neurologic: Denies burning sensations, Denies confusion and Denies frequent falls Psychiatric Psychiatric: Denies confusion Endocrine Endocrine: Reports fatigue and Denies palpitations Patient History Medical History Anemia (Acute) Arthritis (Acute) Asthma (Acute) Herniated nucleus pulposus with myelopathy, thoracic (Acute) Herniated nucleus pulposus, L1-2 (Acute) History of migraine headaches (Acute) Obesity (Acute) Spinal stenosis of lumbar region at multiple levels (Acute) Social History Smoking Status: Never smoker Smoking Status: Never smoker alcohol intake frequency: 0-2 drinks per day Substance Use Type: does not use Exam Initial Vital Signs Initial Vital Signs: Vital Signs Temperature 98.6 F 03/26/20 11:33 Pulse Rate 85 03/26/20 11:33 Respiratory Rate 18 03/26/20 11:33 Blood Pressure 148/67 H 03/26/20 11:33 Pulse Oximetry 97 03/26/20 11:33 GENERAL: Overweight well-appearing male and in no acute distress. HEENT: Head atraumatic,EOMI, pupils reactive, face symmetric, slightly dry mucous membranes CARDIOVASCULAR: Regular rate and rhythm without murmurs, rubs or gallops. RESPIRATORY: Breath sounds equal bilaterally, no wheezes rales or rhonchi. ABDOMEN: Soft, nontender. Normoactive bowel sounds all 4 quadrants. No guarding or rebound. EXTREMITIES: Normal range of motion, no clubbing or edema. Neurovascularly intact NEUROLOGICAL: Alert and oriented x4.Normal gait and speech. Cranial nerves II through XII grossly intact. SKIN: The chronic wound noted on his right foot. There is no gross drainage or foul smell there is no surrounding erythema a overall appears to be healing pain., there is some drainage on the bandage that I removed says that she change date yesterday it is nontender to touch. Right lower leg is also noted to be erythematous is not extremely sensitive old states that it is always erythematous it is not any more red than normal is blanchable he also has some thickened skin noted on his [place]. Which is also chronically there. Course Orders Ordered: ED Orders 03/26/20 11:05 Complete Blood Count AUTO DIFF Stat Comprehensive Metabolic Panel Stat Lactate (Lactic Acid) Stat Lipase Stat NT-proBNP (BNP-Adult 18+) Stat Procalcitonin Stat Troponin & CK Cardiac Panel Stat 03/26/20 12:10 XR chest 1V Stat 03/26/20 12:16 EKG-12 Lead Stat 03/26/20 16:20 Blood Culture Stat Discontinued Medications Sodium Chloride (Normal Saline 0.9%) 1,000 mls @ 150 mls/hr IV CONT RUBY Last Infusion: 03/26/20 15:36 Dose: 0 mls/hr Documented by: Admin: 03/26/20 12:19 Dose: 150 mls/hr Documented by: NANCY Ketorolac Tromethamine (Toradol) 15 mg IV NOW ONE Stop: 03/26/20 15:06 Last Admin: 03/26/20 15:20 Dose: 15 mg Documented by: BALDEMAR Vital Signs Vital signs: Vital Signs - 8 hr 03/26/20 11:33 03/26/20 12:26 03/26/20 12:27 Temperature 98.6 F Pulse Rate 85 82 80 Respiratory Rate 18 30 H Blood Pressure 148/67 H 133/60 Pulse Oximetry 97 95 03/26/20 12:30 03/26/20 13:30 03/26/20 14:00 Temperature Pulse Rate 80 80 83 Respiratory Rate 24 30 H 31 H Blood Pressure Pulse Oximetry 97 96 94 03/26/20 14:30 03/26/20 15:00 03/26/20 15:30 Temperature Pulse Rate 82 85 83 Respiratory Rate 26 H 27 H 22 Blood Pressure Pulse Oximetry 96 94 93 03/26/20 16:00 03/26/20 16:34 Temperature 97.4 F L Pulse Rate 79 77 Respiratory Rate 21 18 Blood Pressure 107/67 Pulse Oximetry 92 98 MDM - Weakness Lab Data Attestation: I reviewed the patient's lab results. Result diagrams: 03/26/20 11:05 03/26/20 11:05 Labs: Lab Results 03/26/20 03/26/20 03/26/20 Range/Units 11:05 11:05 11:05 WBC 10.5 (4.5-11.0) X10^3/uL RBC 4.32 L (4.5-5.9) X10^6/uL Hgb 12.8 L (13.5-17.5) g/dL Hct 37.3 L (41-53) % MCV 86.3 (80-100) fL MCH 29.6 (26-34) PG MCHC 34.3 (30-36) % RDW 15.6 H (11.6-14.8) % Plt Count 152 (150-400) X10^3/uL Neut % (Auto) 86.9 H (50-75) % Lymph % (Auto) 5.1 L (25-40) % Edwards % (Auto) 7.7 (3-14) % Eos % (Auto) 0.1 L (2-4) % Baso % (Auto) 0.2 (0-2) % Neut # (Auto) 9200 H (6207-2013) /uL Lymph # (Auto) 500 L (1824-5004) /uL Edwards # (Auto) 800 (0-900) /uL Eos # (Auto) 0 (0-450) /uL Baso # (Auto) 0 (0-100) /uL Sodium 131 L (137-145) mmol/L Potassium 4.4 (3.4-5.1) mmol/L Chloride 93 L (98-107) mmol/L Carbon Dioxide 33 H (22-32) mmol/L BUN 13 (9-20) mg/dL Creatinine 0.84 (0.66-1.25) mg/dL Estimated GFR > 60.0 (>60) mL/min BUN/Creatinine Ratio 15.5 (6-22) Glucose 147 H (70-100) mg/dL Lactate (0.7-2.1) mmol/L Calcium 9.1 (8.4-10.2) mg/dL Total Bilirubin 0.8 (0.2-1.3) mg/dL AST 57 (17-59) IU/L ALT 44 (<50) IU/L Alkaline Phosphatase 57 (38-126) U/L Total Creatine Kinase 523 H (55-170) U/L CK-MB (CK-2) 3.86 H (<2.37) ng/mL CK-MB (CK-2) Rel Index 0.7 L (1.5-5.0) % Troponin I < 0.012 (0.01-0.034) ng/mL NT-Pro-B Natriuret Pep 232 H (<125) pg/mL Total Protein 7.8 (6.3-8.2) g/dL Albumin 4.1 (3.5-5.0) g/dL Globulin 3.7 (1.7-4.1) g/dL Albumin/Globulin Ratio 1.1 (1.0-2.8) Lipase 41 (23-300) U/L Procalcitonin 3.91 H (<0.5) ng/mL 03/26/20 Range/Units 11:05 WBC (4.5-11.0) X10^3/uL RBC (4.5-5.9) X10^6/uL Hgb (13.5-17.5) g/dL Hct (41-53) % MCV (80-100) fL MCH (26-34) PG MCHC (30-36) % RDW (11.6-14.8) % Plt Count (150-400) X10^3/uL Neut % (Auto) (50-75) % Lymph % (Auto) (25-40) % Edwards % (Auto) (3-14) % Eos % (Auto) (2-4) % Baso % (Auto) (0-2) % Neut # (Auto) (1307-7009) /uL Lymph # (Auto) (1098-6480) /uL Edwards # (Auto) (0-900) /uL Eos # (Auto) (0-450) /uL Baso # (Auto) (0-100) /uL Sodium (137-145) mmol/L Potassium (3.4-5.1) mmol/L Chloride (98-107) mmol/L Carbon Dioxide (22-32) mmol/L BUN (9-20) mg/dL Creatinine (0.66-1.25) mg/dL Estimated GFR (>60) mL/min BUN/Creatinine Ratio (6-22) Glucose (70-100) mg/dL Lactate 1.1 (0.7-2.1) mmol/L Calcium (8.4-10.2) mg/dL Total Bilirubin (0.2-1.3) mg/dL AST (17-59) IU/L ALT (<50) IU/L Alkaline Phosphatase (38-126) U/L Total Creatine Kinase (55-170) U/L CK-MB (CK-2) (<2.37) ng/mL CK-MB (CK-2) Rel Index (1.5-5.0) % Troponin I (0.01-0.034) ng/mL NT-Pro-B Natriuret Pep (<125) pg/mL Total Protein (6.3-8.2) g/dL Albumin (3.5-5.0) g/dL Globulin (1.7-4.1) g/dL Albumin/Globulin Ratio (1.0-2.8) Lipase (23-300) U/L Procalcitonin (<0.5) ng/mL Urine Dip Bedside Urine Glucose Negative Bedside Urine Bilirubin - Negative Bedside Urine Ketone +/- 5 Urine Specific Sproul 1.010 Bedside Urine Occult Blood - Negative Bedside Urine pH 7.0 Bedside Urine Protein +/- 15 Bedside Urine Urobilinogen +/- 1mg Bedside Urine Nitrite - Negative Bedside Urine Leukocytes - Negative Esterase Imaging Data Chest x-ray: Radiologist Impression: PROCEDURE: XR CHEST 1V INDICATIONS: chest pains TECHNIQUE: One view of the chest was acquired. COMPARISON: None. FINDINGS: Surgical changes and devices: None. Lungs and pleura: Lungs are clear. No pleural effusions or pneumothorax. Mediastinum: Mediastinal contours appear normal. Heart size is normal. Bones and chest wall: No suspicious bony lesions. Overlying soft tissues appear unremarkable. IMPRESSION: Normal for age, source of current chest pain symptoms is not seen. Dictated by: Pete Prasad M.D. on 03/26/2020 at 14:39 Approved by: Pete Prasad M.D. on 03/26/2020 at 14:45 ECG Data Attestation: I personally reviewed and interpreted this ECG as follows: Prior ECG tracings: available for review Interpretation: Normal sinus rhythm low voltage Q-wave noted in lead 3 similar to previous E[place] [address] changes or T-wave inversions MDM Narrative Medical decision making narrative: Patient overall does appear to be fatigued he is afebrile no leukocytosis no obvious source of infection his procalcitonin is elevated but on clear where infection may be. He has a blood culture pending COVID-19 is also pending. The patient does not appear to be severely dehydrated he actually urinated after L of fluid he is not anemic. At this time I recommend rest and hydrate at home and return if needed. Discharge Plan Departure Patient Disposition: Home Clinical Impression: Weakness Discharge Date/Time: 03/26/20 16:35 Instructions: DI for Muscle Weakness, Can COVID-19 be prevented? Activity Restrictions/Additional Instructions: *You have been diagnosed with generalized weakness *What to do: At this time is unclear what is causing your weakness. No obvious source of infection. You have been swabbed for COVID-19 results will take 2-3 days we will call you and let you know the results. *Continue to take medications as directed *Follow up with your primary care provider in 2-3 days *Return to ER if you should have increasing weakness no urination for 12 hours or more, not eating or drinking, increased confusion or any new, worsening or concerning symptoms Prescriptions: No Action multivitamin Tablet 1 cap PO QDAY Qty: 0 RF: 0 potassium chloride [Klor-Con M20] 20 MEQ tablet,ER particles/crystals 20 meq PO AMCC Qty: 0 RF: 0 spironolactone 100 MG tablet 100 mg PO BID Qty: 0 RF: 0 duloxetine 60 MG capsule,delayed release(DR/EC) 60 mg PO BID Qty: 30 RF: 0 carvedilol [Coreg] 25 MG tablet 25 mg PO BIDCC Qty: 60 RF: 0 metolazone 5 MG tablet 5 mg PO BID Qty: 0 RF: 0 terbinafine HCl 250 MG tablet 250 mg PO QDAYP PRN (Reason: ANTIFUNGAL) Qty: 0 RF: 0 cholecalciferol (vitamin D3) 50,000 UNIT capsule 50,000 unit PO 2XW Qty: 0 RF: 0 pregabalin [Lyrica] 300 mg capsule 1 cap PO TID RF: 0 metformin 500 mg Tablet 1,000 mg PO BID RF: 0 sennosides [senna] 8.6 mg Tablet 3 tab PO BID RF: 0 torsemide 20 mg Tablet 40 mg PO TID RF: 0 polyethylene glycol 3350 [Miralax] 17 gram Powder In Packet 17 g PO DAILY RF: 0 aspirin 81 mg Tablet,Delayed Release (Dr/Ec) 81 mg PO DAILY RF: 0 tamsulosin [Flomax] 0.4 mg Capsule 0.4 mg PO DAILY RF: 0 levothyroxine 125 mcg Tablet 250 mcg PO DAILY RF: 0 liothyronine 50 mcg Tablet 50 mcg PO DAILY RF: 0 tadalafil [Cialis] 5 mg Tablet 5 mg PO DAILY RF: 0 levocetirizine [Xyzal] 5 mg Tablet 5 mg PO BID RF: 0 naloxone 0.4 mg/0.4 mL Auto-Injector 1 dose IM .ONCE PRN (Reason: NARCOTIC OVERDOSE) RF: 0 oxycodone-acetaminophen [Percocet] 5 MG/325 MG tablet 1 tab PO TID MDD 3 PRN (Reason: pain) RF: 0 tramadol 50 mg tablet 50 mg PO Q4H PRN (Reason: pain) RF: 0 methocarbamol 750 mg tablet 750 mg PO Q4H PRN (Reason: Muscle Spasm) RF: 0 mirtazapine 45 mg tablet 45 mg PO BEDTIME RF: 0 hydrochlorothiazide 25 mg tablet 25 mg PO DAILY RF: 0 epinephrine 0.3 mg/0.3 mL auto-injector 0.3 mg IM PRN PRN (Reason: Allergic Reaction) RF: 0 olopatadine 0.2 % drops 1 drp ophthalmic (eye) DIRECTED RF: 0 Tresiba FlexTouch U-100 100 unit/mL (3 mL) insulin pen SUBCUT RF: 0 naloxone 0.4 mg/mL Syringe 0.4 mg IM .ONCE PRN (Reason: narcotic overdose) RF: 0 oxycodone-acetaminophen [Endocet] 5-325 mg tablet 2 tab PO Q4-6H PRN (Reason: acute rib fracture pain) Qty: 14 RF: 0 fentanyl 100 mcg/hr patch 72 hour 1 patch Transdermal Q72H RF: 0 Referrals: Jhon Taylor MD [Primary Care Provider] -
--- NOTE | 2020-03-26 12:10 | DI.RAD.S_ITS ---
PROCEDURE: XR CHEST 1V INDICATIONS: sob TECHNIQUE: One view of the chest was acquired. COMPARISON: [facility], CR, XR CHEST 2V, 07/23/2019, 16:31. FINDINGS: Surgical changes and devices: Surgical clips are seen in the region of right apex. Lungs and pleura: There is mild pulmonary vascular congestion. No definite focal infiltrate. Elevation of right hemidiaphragm is seen.. No pleural effusions or pneumothorax. Mediastinum: Mediastinal contours appear normal. Heart size is enlarged. Bones and chest wall: No suspicious bony lesions. Overlying soft tissues appear unremarkable. IMPRESSION: Cardiomegaly and mild congestion. No definite focal infiltrate. Elevation of right hemidiaphragm. No pneumothorax. Dictated by: Stephen Hamilton M.D. on 03/26/2020 at 12:55 Approved by: Stephen Hamilton M.D. on 03/26/2020 at 12:57
[2020-03-26 12:19] LABS: Add Manual Diff / Slide Review NO; Basophils Absolute Auto 0 /uL (0-100); Basophils Percent Auto 0.2 % (0-2); Eosinophils Absolute Auto 0 /uL (0-450); Eosinophils Percent Auto 0.1 % (2-4); Hematocrit 37.3 % (41-53); Hemoglobin 12.8 g/dL (13.5-17.5); Lymphocytes Absolute Auto 500 /uL (1100-4500); Lymphocytes Percent Auto 5.1 % (25-40); Mean Corpuscular HGB Conc 34.3 % (30-36); Mean Corpuscular Hemoglobin 29.6 PG (26-34); Mean Corpuscular Volume 86.3 fL (80-100); Monocytes Absolute Auto 800 /uL (0-900); Monocytes Percent Auto 7.7 % (3-14); Neutrophils Absolute Auto 9200 /uL (1500-7000); Neutrophils Percent Auto 86.9 % (50-75); Platelet Count 152 X10^3/uL (150-400); Red Blood Cell Count 4.32 X10^6/uL (4.5-5.9); Red Cell Distribution Width 15.6 % (11.6-14.8); White Blood Cell Count 10.5 X10^3/uL (4.5-11.0)
[2020-03-26] MEDS: SODIUM CHLORIDE 0.9% 1,000 ML 150 ML IV (12:19)
[2020-03-26 12:26] LABS: Lactate (Lactic Acid) 1.1 mmol/L (0.7-2.1)
[2020-03-26 12:35] LABS: Alanine Aminotransferase 44 IU/L (<50); Albumin 4.1 g/dL (3.5-5.0); Albumin Globulin Ratio 1.1 (1.0-2.8); Alkaline Phosphatase 57 U/L (38-126); Aspartate Aminotransferase 57 IU/L (17-59); BUN Creatinine Ratio 15.5 (6-22); Bilirubin Total 0.8 mg/dL (0.2-1.3); Blood Urea Nitrogen 13 mg/dL (9-20); Calcium 9.1 mg/dL (8.4-10.2); Carbon Dioxide 33 mmol/L (22-32); Chloride 93 mmol/L (98-107); Creatine Kinase 523 U/L (55-170); Estimated Glomerular Filt Rate > 60.0 mL/min (>60); Globulin 3.7 g/dL (1.7-4.1); Glucose 147 mg/dL (70-100); HEMOLYSIS < 15 (0-50); Lipase 41 U/L (23-300); Potassium 4.4 mmol/L (3.4-5.1); Sodium 131 mmol/L (137-145); Total Protein 7.8 g/dL (6.3-8.2)
[2020-03-26 12:47] LABS: NT-proBNP (BNP-Adult 18+) 232 pg/mL (<125); Troponin I < 0.012 ng/mL (0.01-0.034)
[2020-03-26 12:49] LABS: Procalcitonin 3.91 ng/mL (<0.5)
--- NOTE | 2020-03-26 12:49 | PC.NURSE ---
xray at bedside
[2020-03-26 12:52] LABS: CKMB % Relative Index 0.7 % (1.5-5.0); Creatine Kinase MB 3.86 ng/mL (<2.37)
[2020-03-26] MEDS: KETOROLAC 60 MG/2 ML VIAL 15 MG IV (15:20)
== END 2020-03-26 16:35 | disposition home or self-care (01) ==
PROVIDERS: Emergency Provider Emergency Medicine; PCP Internal Medicine
DX: R53.1 Weakness (principal); Z03.818 Encounter for observation for suspected exposure to other biological agents ruled out; R11.0 Nausea; R06.00 Dyspnea, unspecified; R07.9 Chest pain, unspecified
CPT/HCPCS: 51798; 71045; 80053; 81003; 82550; 82553; 83605; 83690; 83880; 84145; 84484; 85025; 87040; 93005; 93010; 96361; 96374; 99284; J1885

== ENCOUNTER → 2020-12-15 19:38 | Outpatient (ROUT) | payer OTHER, MEDICAID, SELFPAY ==
[2019-02-27 16:29] VITALS: BMI 53.1
[2020-12-15 19:57] LABS: Add Manual Diff / Slide Review NO; Basophils Absolute Auto 0 /uL (0-100); Basophils Percent Auto 0.5 % (0-2); Eosinophils Absolute Auto 100 /uL (0-450); Eosinophils Percent Auto 1.9 % (2-4); Hematocrit 39.7 % (41-53); Hemoglobin 13.7 g/dL (13.5-17.5); Lymphocytes Absolute Auto 1600 /uL (1100-4500); Lymphocytes Percent Auto 24.1 % (25-40); Mean Corpuscular HGB Conc 34.4 % (30-36); Mean Corpuscular Volume 90.3 fL (80-100); Monocytes Absolute Auto 600 /uL (0-900); Monocytes Percent Auto 9.2 % (3-14); Neutrophils Absolute Auto 4100 /uL (1500-7000); Neutrophils Percent Auto 64.3 % (50-75); Platelet Count 207 X10^3/uL (150-400); Red Cell Distribution Width 14.4 % (11.6-14.8); White Blood Cell Count 6.4 X10^3/uL (4.5-11.0)
[2020-12-15 20:13] LABS: Alanine Aminotransferase 28 IU/L (<50); Albumin 4.4 g/dL (3.5-5.0); Albumin Globulin Ratio 1.5 (1.0-2.8); Alkaline Phosphatase 62 U/L (38-126); Aspartate Aminotransferase 36 IU/L (17-59); Bilirubin Total 0.4 mg/dL (0.2-1.3); Blood Urea Nitrogen 9 mg/dL (9-20); Calcium 9.7 mg/dL (8.4-10.2); Carbon Dioxide 29 mmol/L (22-32); Chloride 98 mmol/L (98-107); Cholesterol 120 mg/dL (140-199); Estimated Glomerular Filt Rate > 60.0 mL/min (>60); Glucose 109 mg/dL (70-100); HDL Cholesterol 44 mg/dL (40-60); HEMOLYSIS 17 (0-50); LDL Cholesterol Calculated 57 mg/dL (<100); Potassium 4.1 mmol/L (3.4-5.1); Sodium 137 mmol/L (137-145); Total Protein 7.4 g/dL (6.3-8.2); Triglycerides 93 mg/dL (35-150)
== END ==
PROVIDERS: Family Provider Internal Medicine; PCP Internal Medicine; Visit Provider Internal Medicine
DX: R60.9 Edema, unspecified (principal); E03.9 Hypothyroidism, unspecified; E78.2 Mixed hyperlipidemia
CPT/HCPCS: 80053; 80061; 84439; 84443; 85025

== ENCOUNTER 2021-01-12 15:15 | Outpatient (RCR) | payer OTHER, MEDICAID, SELFPAY ==
[2019-02-27 16:29] VITALS: BMI 53.1
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
--- NOTE | 2020-11-08 16:02 | PT.OPPOC ---
Physical, Occupational & Speech Therapy At [facility] Current Diagnoses Stiffness of other specified joint, not elsewhere classified (11/08/20) Cervicalgia (11/08/20) Strain of muscle, fascia and tendon at neck level, initial encounter (11/08/20) Strain of muscle, fascia and tendon at neck level, subsequent encounter (11/08/20) Visit Care Team Role Provider Type Jhon Taylor MD Attending Provider Physician Family Provider Primary Care Provider Referring Provider Specialty: Internal Medicine Address: [address] [place] [address] Email: [email or web address] Plan Of Care PT-OP-T Assessment and Plan Start: 09/10/20 16:04 Freq: Status: Active Protocol: Document 11/08/20 15:15 DCW (Rec: 11/08/20 16:01 DCW [id number]) Physical Therapy Assessment Impairments Impairments Activity Tolerance,Functional Activities,Functional Mobility ,Pain,Posture,ROM,Soft Tissue Mobility,Strength,Tone Goals Three Impairment Pt suffered with severe tone and 4/4 tenderness to palpation along SCM Assisted Goal (LTG) Pt to present with mild- moderate SCM tone and tenderness to palpation 2/4: Pain with wincing LTG Duration 01/08/21 Two Impairment Pt has extreme difficulty turning head while driving Campground Hand Goal (LTG) Pt to improve cervical rotation to 45? bilaterally to improve functional mobility while driving. LTG Duration 01/08/21 One Impairment Pt does not have an appropriate home exercise program Short Term Goal (STG) Pt to be independent and compliant with an appropriate HEP STG Duration 12/08/20 Assessment Summary Assessment Pt showing reduced tone along SCM bilaterally, improved cervical ROM. Added some gentle T-band strengthening to HEP Physical Therapy Plan Frequency and Duration Frequency of Treatment 2x/Week Duration of Treatment Two months Plan of Care Start Date 11/08/20 Plan of Care End Date 01/08/21 Therapeutic Interventions Therapeutic Interventions Home Exercise Program,Joint Mobilizations,Manual Therapy, Patient/Caregiver Education, Self-Care/Home Management,Soft Tissue Mobilization, Therapeutic Activities, Therapeutic Exercises Modalities Cold Pack/Ice Massage,Electric Stimulation,Hot Packs, Ultrasound Next Visit Focus/Plan Next Note Type Treatment Note Next Visit Plan Cervical ROM, STM, Pain- control modalities, Joint mobs Plan of Care Dates Plan of Care Start Date 11/08/20 Plan of Care End Date 01/08/21 Electronically Signed by: Tong Card, PT 11/08/20 [id number] Please Sign and Return: I have reviewed this Plan of Care and certify that the skilled therapy services above are required to meet the patient?s needs. Physician Signature Date Printed Name and Credentials Clinical Instructor Signature Printed Name and Credentials
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
== END 2021-01-13 08:32 | disposition home or self-care (01) ==
LOC: PHYS 15:15
PROVIDERS: Family Provider Internal Medicine; PCP Internal Medicine; Referring Provider Internal Medicine; Visit Provider Internal Medicine
DX: S16.1XXD Strain of muscle, fascia and tendon at neck level, subsequent encounter (principal); M54.2 Cervicalgia; M25.69 Stiffness of other specified joint, not elsewhere classified; S16.1XXA Strain of muscle, fascia and tendon at neck level, initial encounter
CPT/HCPCS: 97110; 97140; 97161

== ENCOUNTER → 2021-03-08 08:15 | Outpatient (CLI) | payer OTHER, MEDICAID, SELFPAY ==
[2019-02-27 16:29] VITALS: BMI 53.1
[2021-03-08 12:27] LABS: COVID19 -Nasal RAPID Negative (Negative)
== END ==
PROVIDERS: Family Provider Internal Medicine; PCP Internal Medicine; Visit Provider Physical Medicine & Rehabilitation
DX: Z20.822 Contact with and (suspected) exposure to COVID-19 (principal)
CPT/HCPCS: 87635; C9803

== ENCOUNTER → 2021-03-21 07:47 | Outpatient (CLI) | payer OTHER, MEDICAID, SELFPAY ==
[2021-03-10 11:22] VITALS: BMI 53.1
[2021-03-21 12:33] LABS: COVID19 -Nasal RAPID Negative (Negative)
== END ==
PROVIDERS: Family Provider Internal Medicine; PCP Internal Medicine; Visit Provider Physical Medicine & Rehabilitation
DX: Z20.822 Contact with and (suspected) exposure to COVID-19 (principal)
CPT/HCPCS: 87635

== ENCOUNTER 2021-03-22 15:12 | Outpatient (CLI) | payer OTHER, MEDICAID, SELFPAY ==
[2019-02-27 16:29] VITALS: BMI 53.1
[2021-03-10 11:22] VITALS: BMI 53.1
[2021-03-22 16:00] VITALS: BP 135/77; PULSE 107; RESP 15; TEMP 37.6; O2SAT 97
--- NOTE | 2021-03-22 16:07 | DI.RAD.S_ITS ---
PROCEDURE: PAIN L INTERLAMINAR/CAUDAL INJ INDICATIONS: SPONDYLOSIS COMPARISON: [facility], XA, PAIN L INTERLAMINAR/CAUDAL INJ, 06/24/2019, 12:35. FINDINGS: Fluoroscopic spot filming was performed to verify placement of spinal needles at the L1-2 level(s), as labeled on the films. Appropriate location(s) of the needle tip(s) was confirmed by injection of iodinated contrast. IMPRESSION: Fluoro guidance was provided intraoperatively for L1-2 trans laminar TOÑITO performed by the ordering physician. Dictated by: Stephen Hamilton M.D. on 03/22/2021 at 16:50 Approved by: Stephen Hamilton M.D. on 03/22/2021 at 16:51
[2021-03-22 16:09] VITALS: BP 158/83; PULSE 106; RESP 20; O2SAT 93
[2021-03-22 16:14] VITALS: BP 140/82; PULSE 99; RESP 31; O2SAT 93
[2021-03-22] MEDS: BUPIVACAINE 0.25% (PF) VIAL 2 ML INJ (16:15)
[2021-03-22] MEDS: IOPAMIDOL 15 ML VIAL 3 ML INJ (16:15)
[2021-03-22] MEDS: DEXAMETHASONE 10 MG/ML VIAL 20 MG INJ (16:16)
[2021-03-22] MEDS: BETAMETHASONE 30 MG/5 ML MDV 6 MG INJ (16:17)
[2021-03-22 16:20] VITALS: BP 137/76; PULSE 103; RESP 30; O2SAT 95
--- NOTE | 2021-03-22 16:27 | P.PCN_ITS ---
Date/Time/Diagnoses Date of procedure: 03/22/21 Time of procedure: 16:27 Pre-procedure diagnosis: 1. HNP WITH RADICULAR FEATURES, 2. MULTILEVEL CENTRAL STENOSIS, Post-procedure diagnosis: same Procedure Notes Procedure: 1. FLUOROSCOPICALLY GUIDED CONTRAST CONTROLLED INTERLAMINAR EPIDURAL STEROID INJECTION - L1/2 Indications: Bubba is referred by Dr. Taylor for treatment of Bilateral Foraminal Stenosis L>R LE symptoms. Physician: Hay Wagner Total Fluoroscopy time (seconds): 8 Total sedation minutes: 0 Complications: none Procedure in detail & Post-procedure care: FINDINGS Multilevel Central Spinal Stenosis with Nerve Root Compression DESCRIPTION OF PROCEDURE Fluoroscopically guided, contrast-controlled L1/2 translaminar epidural steroid injection. Following review of allergy and review of potential side effects and complications, including, but not necessarily limited to, infection, allergic reaction, local tissue breakdown, temporary as well as permanent nerve injury, paralysis, stroke and possible , the patient indicated that the patient understood and agreed to proceed. An informed consent document was signed by the patient, witnessed by a nurse, and placed in the patient's chart. Additionally, other treatment options including modalities, medications, and physical therapy were reviewed with the patient. After review of previous anaesthesic history and IV conscious sedation the patient was deemed safe to proceed with todays procedure with IV conscious sedation as ASA class II designation. Safety time-out was performed to confirm patient ID, procedure to be performed and site of procedure. IV sedation was deemed unnecessary and thus not administered by the RN after DO order, titrated to patient comfort during the course of the procedure while the patient remained responsive to all verbal commands In the prone position, following sterile prep and drape of the lumbar region, the L1/2 translaminar space was identified fluoroscopically. The skin was anesthetized via a 25-gauge, 1.5-inch needle with 1% lidocaine solution. At this point, a 22-gauge short bevel spinal needle was atraumatically introduced and advanced under fluoroscopic guidance into the region of the L1/2 translaminar space. Depth was confirmed on lateral view. Radiological data, including multiple fluoroscopic views of the lumbar spine, reveal a spinal needle at the L1/2 translaminar space. Lateral views then show placement of the needle in the epidural space. Subsequent views show contrast material flowing superiorly and inferiorly in the epidural space. No vascular or intrathecal uptake is observed. At this point, using loss of resistance technique with saline and air, the epidural space was entered. This was confirmed following negative aspiration with injection of approximately 1.5 cc of Isovue 200, showing excellent epidural flow without vascular or intrathecal uptake. At this point, 1 cc of 1% lidocaine solution combined with 3cc or 20mg of dexamethasone and 6mg of betamethasone was injected without incident. The patient tolerated the procedure well without signs or symptoms of complications prior to transfer to the recovery area continued monitoring without incident. The patient was then transferred to the recovery area where they were observed for an appropriate period of time after the injection. The patient reported a VAS score of 6 prior to the procedure and a post- procedure VAS of 0. POST OP INSTRUCTIONS The patient was provided a Pain Log to continue to record their response to the target-specific procedure prior to follow-up visit with their referring physician. Additionally, specific post-injection care instructions and a contact number to our office were provided if concerns arise regarding possible complications associated with the procedure are suspected.
== END 2021-03-22 16:36 | disposition home or self-care (01) ==
LOC: RAD 15:13
PROVIDERS: Family Provider Internal Medicine; PCP Internal Medicine; Referring Provider Physical Medicine & Rehabilitation; Visit Provider Physical Medicine & Rehabilitation
DX: M51.16 Intervertebral disc disorders with radiculopathy, lumbar region (principal); M48.061 Spinal stenosis, lumbar region without neurogenic claudication
CPT/HCPCS: 62323; J0702; J1040; J1100; J2250; J3010

== ENCOUNTER → 2021-03-25 15:44 | Outpatient (CLI) | payer OTHER, MEDICAID, SELFPAY ==
[2021-03-10 11:22] VITALS: BMI 53.1
--- NOTE | 2021-03-25 | DI.CT.S_ITS ---
PROCEDURE: CT SINUS SCREEN WO CON INDICATIONS: Chronic maxillary sinusitis TECHNIQUE: Noncontrast 3.0 mm axial images acquired from the frontal sinuses to the mid-sella, with coronal and sagittal reformats. For radiation dose reduction, the following was used: automated exposure control, adjustment of mA and/or kV according to patient size. COMPARISON: [facility], CT, SINUS SCREEN WO CONTRAST, 02/02/2014, 13:45. [facility], CT, CT HEAD/BRAIN WO CON, 07/10/2019, 13:32. [facility], CT, CT SINUS SCREEN WO CON, 10/06/2019, 12:59. FINDINGS: Image quality: Excellent. Maxillary Sinuses: There is moderate to prominent mucosal thickening within the right maxillary sinus. There is demineralization of the medial wall of the right maxillary sinus, with remodeling change. The left maxillary sinus is relatively clear. Ethmoid Air Cells: No bony remodeling or destruction. Sinuses are clear. Sphenoid Sinuses: No bony remodeling or destruction. Sinuses are clear. Frontal Sinuses: No bony remodeling or destruction. Sinuses are clear. Ostiomeatal Complexes: Ostiomeatal complexes are patent. No Mari cells. Miscellaneous: Visualized intra-orbital contents are normal. No mark bullosa or paradoxical turbinate curvature. There is mild leftward nasal septal deviation. Incidental note is made of hyperostosis frontalis. This is not considered to be pathologic in a woman of this age. IMPRESSION: Focal right maxillary sinus disease, with a chronic appearance. The paranasal sinus disease is improved compared to 2019. Dictated by: Osbaldo Perez M.D. on 03/25/2021 at 15:12 Approved by: Osbaldo Perez M.D. on 03/25/2021 at 15:14
== END ==
PROVIDERS: Family Provider Internal Medicine; PCP Internal Medicine; Referring Provider Otolaryngology; Visit Provider Otolaryngology
DX: J32.0 Chronic maxillary sinusitis (principal)
CPT/HCPCS: 70486

== ENCOUNTER → 2021-05-23 12:47 | Outpatient (CLI) | payer OTHER, MEDICAID, SELFPAY ==
[2021-03-10 11:22] VITALS: BMI 53.1
--- NOTE | 2021-05-23 12:49 | DI.RAD.S_ITS ---
PROCEDURE: XR LUMBAR SPINE MIN 4V INDICATIONS: BACK PAIN TECHNIQUE: 5 views of the lumbar spine were acquired, including bilateral oblique views. COMPARISON: None. FINDINGS: Bones: 5 nonrib-bearing vertebrae are present. No traumatic subluxation. The vertebral body heights are maintained. Mild to moderate disc height loss. Endplate osteophytosis with facet arthrosis, most prominent at L2-3 and L4-5. No suspicious bony lesions. Soft tissues: Overlying bowel gas pattern is normal. No suspicious soft tissue calcifications. Oblique images: No pars defects. IMPRESSION: No acute osseous abnormality. Dictated by: Brandt Theodore M.D. on 05/23/2021 at 13:51 Approved by: Brandt Theodore M.D. on 05/23/2021 at 13:55
== END ==
PROVIDERS: Family Provider Internal Medicine; PCP Internal Medicine; Referring Provider Physical Medicine & Rehabilitation; Visit Provider Physical Medicine & Rehabilitation
DX: M48.062 Spinal stenosis, lumbar region with neurogenic claudication (principal); M51.26 Other intervertebral disc displacement, lumbar region; M17.0 Bilateral primary osteoarthritis of knee; M51.04 Intervertebral disc disorders with myelopathy, thoracic region; G58.8 Other specified mononeuropathies; G62.89 Other specified polyneuropathies; E66.01 Morbid (severe) obesity due to excess calories; Z68.38 Body mass index [BMI] 38.0-38.9, adult; Z98.1 Arthrodesis status
CPT/HCPCS: 72110; 99214

== ENCOUNTER 2021-05-25 09:32 | Emergency (ER) | payer OTHER, MEDICAID, SELFPAY ==
[2021-03-10 11:22] VITALS: BMI 53.1
[2021-05-25] VITALS (11 sets, daily range): BP systolic 142–188; BP diastolic 66–106; PULSE 92–116; RESP 14–22; TEMP 36.9; O2SAT 95–100; BMI 538.0
--- NOTE | 2021-05-25 10:51 | ED.GENADULT ---
HPI - General Adult General Chief complaint: Shortness of Breath/Dyspnea Stated complaint: RASH ALL OVER BODY, HARD TO BREATH/SWALLOW Time Seen by Provider: 05/25/21 10:35 Source: patient Mode of arrival: Ambulatory Limitations: no limitations History of Present Illness HPI narrative: Patient is a 56-year-old male here for evaluation of a rash. He states that it started several days ago. No known new exposures. Has already seen a provider for the rash. Is on prednisone. He is also using a topical cream as well. He has been given a prescription for Keflex but was told only to take it if his symptoms worsen. He states that it is somewhat hard for him to breathe and swallow. The rash is very itchy. There are blisters associated with it. No vomiting. No fevers. No recent travel. No recent antibiotics. Related Data Home Medications Medication Instructions Recorded Confirmed multivitamin 1 cap PO QDAY #0 10/13/11 05/23/21 potassium chloride 20 mEq 20 meq PO AMCC #0 tab 04/18/16 05/23/21 tablet,extended release(part/cryst) (Klor-Con M) spironolactone 100 mg tablet 100 mg PO BID #0 04/18/16 05/23/21 carvedilol 25 mg tablet (Coreg) 25 mg PO BIDCC #60 09/28/17 05/23/21 duloxetine 60 mg capsule,delayed 60 mg PO BID #30 09/28/17 05/23/21 release cholecalciferol (vitamin D3) 1,250 50,000 unit PO 2XW #0 10/11/17 05/23/21 mcg (50,000 unit) capsule metolazone 5 mg tablet 5 mg PO BID #0 10/11/17 05/23/21 terbinafine HCl 250 mg tablet 250 mg PO QDAYP PRN #0 10/11/17 05/23/21 aspirin 81 mg tablet,delayed 81 mg PO DAILY 05/28/18 05/23/21 release levocetirizine 5 mg tablet (Xyzal) 5 mg PO BID 05/28/18 05/23/21 levothyroxine 125 mcg tablet 250 mcg PO DAILY 05/28/18 05/23/21 liothyronine 50 mcg tablet 50 mcg PO DAILY 05/28/18 05/23/21 metformin 500 mg tablet 1,000 mg PO BID 05/28/18 05/23/21 pregabalin 300 mg capsule 1 cap PO TID 05/28/18 05/23/21 tadalafil 5 mg tablet (Cialis) 5 mg PO DAILY 05/28/18 05/23/21 tamsulosin 0.4 mg capsule (Flomax) 0.4 mg PO DAILY 05/28/18 05/23/21 torsemide 20 mg tablet 40 mg PO TID 05/28/18 05/23/21 fentanyl 100 mcg/hr transdermal 1 patch TRANSDERMAL Q72H 12/25/18 05/23/21 patch epinephrine 0.3 mg/0.3 mL 0.3 mg IM PRN PRN 07/10/19 05/23/21 injection, auto-injector hydrochlorothiazide 25 mg tablet 25 mg PO DAILY 07/10/19 05/23/21 mirtazapine 45 mg tablet 45 mg PO BEDTIME 07/10/19 05/23/21 cephalexin 500 mg capsule 500 mg PO BID 05/23/21 05/23/21 methylprednisolone 4 mg tablets in See Rx Instructions PO PER PKG DIR 05/23/21 05/23/21 a dose pack (Medrol (Ivan)) Allergies Allergy/AdvReac Type Severity Reaction Status Date / Time heparin (porcine) Allergy Severe BREATHINBG Verified 05/25/21 09:54 [HEPARIN,PORCINE] DIFFICULTIES Penicillins Allergy Severe RASH, Verified 05/25/21 09:54 THROAT SWELLING Pork/Porcine Containing Allergy Severe RASH, Verified 05/25/21 09:54 Products THROAT SWELLING, VOMITING Review of Systems Eyes Eyes: Denies change in vision ENT Ears, Nose, Mouth, and Throat: Reports system reviewed and no additional complaints, except as documented, Reports as per HPI and Denies sore throat Cardiovascular Cardiovascular: Reports as per HPI and Reports system reviewed and no additional complaints, except as documented Respiratory Respiratory: Reports as per HPI and Reports system reviewed and no additional complaints, except as documented Gastrointestinal Gastrointestinal: Reports as per HPI and Reports system reviewed and no additional complaints, except as documented Integumentary/Breasts Skin/Breast: Reports as per HPI Neurologic Neurologic: Reports system reviewed and no additional complaints, except as documented Hematologic/Lymphatic On Anticoagulants: No Allergic/Immunologic Allergic/Immunologic: Reports system reviewed and no additional complaints, except as documented and Reports as per HPI Patient History Medical History Anemia Arthritis Asthma 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, thoracic Herniated nucleus pulposus, L1-2 History of migraine headaches Obesity Spinal stenosis of lumbar region at multiple levels Surgical History Hx of fusion of cervical spine Hx of hand surgery Social History Smoking Status: Never smoker Smoking Status: Never smoker alcohol intake frequency: holidays/special occasions only Substance Use Type: does not use Exam Initial Vital Signs Initial Vital Signs: Vital Signs Pulse Rate 116 H 05/25/21 09:45 Pulse Oximetry 97 05/25/21 09:45 Const General: cooperative, comfortable, well developed and well groomed Limitations: mental status not altered HENMT Head: normal to inspection and normocephalic Mouth: oral mucosae normal and moist mucous membranes Throat: posterior oropharynx normal Neck Neck: normal visual inspection Resp Effort & Inspection: no cough, not labored, no respiratory distress and not tachypneic Auscultation: clear to auscultation bilaterally Cardio Rate: regular rate Rhythm: regular rhythm Skin Other: Patient with a bolus rash that is located systemically. Mostly on his upper thighs and upper chest and upper arms. No mucosal involvement. There is some crusting. There are some vesicles in various stages of healing. Minimal surrounding erythema. Neuro General: patient alert, patient awake, patient oriented x3 and moves all extremities Course Orders Ordered: Discontinued Medications Diphenhydramine HCl (Diphenhydramine 50 Mg/Ml Vial) 25 mg IV NOW ONE Stop: 05/25/21 10:52 Last Admin: 05/25/21 11:07 Dose: 25 mg Documented by: JUVENAL Methylprednisolone (Methylprednisolone 125 Mg/2 Ml Vial) 125 mg IV NOW ONE Stop: 05/25/21 10:52 Last Admin: 05/25/21 11:07 Dose: 125 mg Documented by: JUVENAL Vital Signs Vital signs: Vital Signs - 8 hr 05/25/21 09:45 05/25/21 09:48 05/25/21 09:55 Temperature 98.4 F Pulse Rate 116 H 114 H 113 H Respiratory Rate 22 19 Blood Pressure 188/106 H 183/74 H Pulse Oximetry 97 96 98 10/20/21 10:00 05/25/21 10:01 05/25/21 10:30 Temperature Pulse Rate 113 H 111 H 108 H Respiratory Rate 18 22 18 Blood Pressure 151/66 H 142/68 H Pulse Oximetry 97 98 97 05/25/21 11:00 05/25/21 11:30 05/25/21 12:00 Temperature Pulse Rate 109 H 100 H 93 H Respiratory Rate 18 18 Blood Pressure 147/70 H 143/67 H Pulse Oximetry 96 100 97 05/25/21 12:30 05/25/21 13:00 Temperature Pulse Rate 92 H 101 H Respiratory Rate 18 14 Blood Pressure 158/94 H 146/87 H Pulse Oximetry 95 96 Medical Decision Making MDM Narrative Medical decision making narrative: Despite his stated complaint the patient is not having an anaphylactic reaction unsure exact cause of his symptoms. He was given Benadryl and steroids here. Some of the redness did improve with the vesicles are still very prominent. Viral and bacterial cultures were obtained. He already has antibiotics to take if his symptoms worsen. I do not feel the need to change his. No need for epinephrine. Considered etiologies such as toxic epidermal necrolysis and Skin syndrome however and Tung Eric syndrome however his symptoms are not consistent with any of these. Also does not appear to be infectious etiology. I discussed all this with the patient. 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 He will continue with his prednisone. He was given return precautions. He expressed understanding and agreement. Discharge Plan Departure Patient Disposition: Home Clinical Impression: Rash Instructions: DI for Rash Activity Restrictions/Additional Instructions: I do not have an exact cause of your rash today. I agree with holding on any antibiotics for now. We did do viral hand bacterial cultures but these will take couple days to result. I recommend that you continue to take the medications that you have already been prescribed as directed. You very well may need a referral to see dermatology. Return to the emergency department for any new or worsening symptoms. Prescriptions: No Action multivitamin Tablet 1 cap PO QDAY Qty: 0 RF: 0 potassium chloride [Klor-Con M20] 20 MEQ tablet,ER particles/crystals 20 meq PO AMCC Qty: 0 RF: 0 spironolactone 100 MG tablet 100 mg PO BID Qty: 0 RF: 0 duloxetine 60 MG capsule,delayed release(DR/EC) 60 mg PO BID Qty: 30 RF: 0 carvedilol [Coreg] 25 MG tablet 25 mg PO BIDCC Qty: 60 RF: 0 metolazone 5 MG tablet 5 mg PO BID Qty: 0 RF: 0 terbinafine HCl 250 MG tablet 250 mg PO QDAYP PRN (Reason: ANTIFUNGAL) Qty: 0 RF: 0 cholecalciferol (vitamin D3) 50,000 UNIT capsule 50,000 unit PO 2XW Qty: 0 RF: 0 pregabalin [Lyrica] 300 mg capsule 1 cap PO TID RF: 0 metformin 500 mg Tablet 1,000 mg PO BID RF: 0 torsemide 20 mg Tablet 40 mg PO TID RF: 0 aspirin 81 mg Tablet,Delayed Release (Dr/Ec) 81 mg PO DAILY RF: 0 tamsulosin [Flomax] 0.4 mg Capsule 0.4 mg PO DAILY RF: 0 levothyroxine 125 mcg Tablet 250 mcg PO DAILY RF: 0 liothyronine 50 mcg Tablet 50 mcg PO DAILY RF: 0 tadalafil [Cialis] 5 mg Tablet 5 mg PO DAILY RF: 0 levocetirizine [Xyzal] 5 mg Tablet 5 mg PO BID RF: 0 mirtazapine 45 mg tablet 45 mg PO BEDTIME RF: 0 hydrochlorothiazide 25 mg tablet 25 mg PO DAILY RF: 0 epinephrine 0.3 mg/0.3 mL auto-injector 0.3 mg IM PRN PRN (Reason: Allergic Reaction) RF: 0 fentanyl 100 mcg/hr patch 72 hour 1 patch Transdermal Q72H RF: 0 methylprednisolone [Medrol (Ivan)] 4 mg tablets,dose pack See Rx Instructions PO PER PKG DIR RF: 0 cephalexin 500 mg capsule 500 mg PO BID RF: 0 Referrals: Jhon Taylor MD [Primary Care Provider] -
[2021-05-25] MEDS: methylPREDNISolone 125 MG/2 ML VIAL IV (11:07)
[2021-05-25] MEDS: diphenhydrAMINE 50 MG/ML VIAL 25 MG IV (11:07)
== END 2021-05-25 13:37 | disposition home or self-care (01) ==
PROVIDERS: Emergency Provider Emergency Medicine; Family Provider Internal Medicine; PCP Internal Medicine
DX: R21 Rash and other nonspecific skin eruption (principal); R06.00 Dyspnea, unspecified
CPT/HCPCS: 36415; 87070; 87077; 87186; 87205; 87252; 96374; 96375; 99284; J1200; J2930

== ENCOUNTER 2021-05-29 09:58 | Emergency (ER) | payer OTHER, MEDICAID, SELFPAY ==
[2021-03-10 11:22] VITALS: BMI 53.1
[2021-05-29] VITALS (18 sets, daily range): BP systolic 118–187; BP diastolic 56–86; PULSE 93–116; RESP 20–26; TEMP 36.3; O2SAT 88–100; BMI 43.3
--- NOTE | 2021-05-29 10:06 | DI.RAD.S_ITS ---
PROCEDURE: XR CHEST 1V INDICATIONS: SOB TECHNIQUE: One view of the chest was acquired. COMPARISON: [facility], CR, XR CHEST 1V, 03/26/2020, 12:42. FINDINGS: Surgical changes and devices: None. Lungs and pleura: Lungs are clear. No pleural effusions or pneumothorax. Perihilar interstitial opacities are unchanged compared to the prior study especially on the left. Mediastinum: Mediastinal contours appear normal. Heart size is normal. Bones and chest wall: No suspicious bony lesions. Overlying soft tissues appear unremarkable. IMPRESSION: Perihilar interstitial opacities, especially on the left side are seen. Differential diagnosis includes atypical pneumonia or mild pulmonary vascular congestion. Dictated by: Milind Torrez M.D. on 05/29/2021 at 10:45 Approved by: Milind Torrez M.D. on 05/29/2021 at 10:46
--- NOTE | 2021-05-29 10:09 | ED_ITS ---
HPI - Weakness General Chief complaint: Weakness Stated complaint: Fallen 3 times, legs feel like rubber Time Seen by Provider: 05/29/21 10:06 History of Present Illness HPI Narrative: 56-year-old male nonsmoker with history of multiple orthopedic injuries, phrenic nerve palsy presents with a chief complaint of feeling very fatigued, weak short of breath for the past 24 hours or so. States that minimal exertion makes him quite winded and takes him a fair amount of time to recover. He feels generally weak, denies any fever chills nor nausea or vomiting. He states that he has become so weak that he has fallen 3 times in the past 24 hours. He denies any syncope and has full recall of the events. He denies any injury as a consequence of the falls. He denies any new or missed medications. He denies any dietary change. He denies any loss of control of bowel or bladder. He is fully immunized against COVID. He was seen here a few days ago with a chief complaint of an itchy rash on his bilateral upper extremities. He had seen his primary care provider earlier in the day for that rash and was encouraged to put some topical lotion on and soon thereafter developed itchy b listers throughout. He denied any trouble swallowing or breathing and has no intraoral fall. Additionally, he's been seeing wound care and podiatry at [facility] for problems largely with his right foot. About 6 weeks ago he had a bursa or cyst addressed on has right lateral foot adjacent to his 5th metatarsal. It was surgically removed and drained and he states overall the appearance of his right foot and how it feels has greatly improved since then. Related Data Home Medications Medication Instructions Recorded Confirmed multivitamin 1 cap PO QDAY #0 10/13/11 05/23/21 potassium chloride 20 mEq 20 meq PO AMCC #0 tab 04/18/16 05/23/21 tablet,extended release(part/cryst) (Klor-Con M) spironolactone 100 mg tablet 100 mg PO BID #0 04/18/16 05/23/21 carvedilol 25 mg tablet (Coreg) 25 mg PO BIDCC #60 09/28/17 05/23/21 duloxetine 60 mg capsule,delayed 60 mg PO BID #30 09/28/17 05/23/21 release cholecalciferol (vitamin D3) 1,250 50,000 unit PO 2XW #0 10/11/17 05/23/21 mcg (50,000 unit) capsule metolazone 5 mg tablet 5 mg PO BID #0 10/11/17 05/23/21 terbinafine HCl 250 mg tablet 250 mg PO QDAYP PRN #0 10/11/17 05/23/21 aspirin 81 mg tablet,delayed 81 mg PO DAILY 05/28/18 05/23/21 release levocetirizine 5 mg tablet (Xyzal) 5 mg PO BID 05/28/18 05/23/21 levothyroxine 125 mcg tablet 250 mcg PO DAILY 05/28/18 05/23/21 liothyronine 50 mcg tablet 50 mcg PO DAILY 05/28/18 05/23/21 metformin 500 mg tablet 1,000 mg PO BID 05/28/18 05/23/21 pregabalin 300 mg capsule 1 cap PO TID 05/28/18 05/23/21 tadalafil 5 mg tablet (Cialis) 5 mg PO DAILY 05/28/18 05/23/21 tamsulosin 0.4 mg capsule (Flomax) 0.4 mg PO DAILY 05/28/18 05/23/21 torsemide 20 mg tablet 40 mg PO TID 05/28/18 05/23/21 fentanyl 100 mcg/hr transdermal 1 patch TRANSDERMAL Q72H 12/25/18 05/23/21 patch epinephrine 0.3 mg/0.3 mL 0.3 mg IM PRN PRN 07/10/19 05/23/21 injection, auto-injector hydrochlorothiazide 25 mg tablet 25 mg PO DAILY 07/10/19 05/23/21 mirtazapine 45 mg tablet 45 mg PO BEDTIME 07/10/19 05/23/21 cephalexin 500 mg capsule 500 mg PO BID 05/23/21 05/23/21 methylprednisolone 4 mg tablets in See Rx Instructions PO PER PKG DIR 05/23/21 05/23/21 a dose pack (Medrol (Ivan)) Previous Rx's Medication Instructions Recorded ciprofloxacin HCl 500 mg tablet 500 mg PO Q12H #20 tab 05/29/21 Allergies Allergy/AdvReac Type Severity Reaction Status Date / Time heparin (porcine) Allergy Severe BREATHINBG Verified 05/25/21 09:54 [HEPARIN,PORCINE] DIFFICULTIES Penicillins Allergy Severe RASH, Verified 05/25/21 09:54 THROAT SWELLING Pork/Porcine Containing Allergy Severe RASH, Verified 05/25/21 09:54 Products THROAT SWELLING, VOMITING Review of Systems Review of Systems Narrative: GENERAL: See HPI HEENT: Denies sinus pain, ear pain, sore throat, difficulty swallowing, dizzines s. RESPIRATORY: See HPI CARDIOVASCULAR: See HPI GASTROINTESTINAL: Denies nausea, vomiting, abdominal pain, diarrhea, constipation, melena. : Denies dysuria, frequency, incontinence, hematuria, urinary retention. MUSCULOSKELETAL: See HPI SKIN: Denies rash, skin lesions, or other NEUROLOGIC: See HP PSYCHIATRIC: No concerning psychosocial issues. 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 Chronically ill and generally unwell, in obvious distress, walks in under his own power but slowly and deliberately with significant shortness of breath and initial pulse ox in the mid 80s with conversational dyspnea HEAD: Atraumatic. Normocephalic. EYES: Pupils equal round and reactive. Extraocular motions intact. No scleral icterus. No injection or drainage. ENT: Nose without bleeding, purulent drainage. Throat without erythema, tonsillar hypertrophy or exudate. Airway patent. NECK: Trachea midline. Non tender CARDIOVASCULAR: Tachycardic but regular rhythm without murmurs, gallops, or rubs. RESPIRATORY: Significantly increased work of breathing with good effort, prolonged expiratory phase and faint crackles in bilateral bases GASTROINTESTINAL: Abdomen soft, non-tender, nondistended. EXTREMITIES: 1+ edema bilateral lower extremities BACK: Nontender without deformity or crepitance. No flank tenderness. NEURO: AOx3. SKIN: Multiple and widespread poorly healing wounds Initial Vital Signs Initial Vital Signs: Vital Signs Temperature 97.4 F L 05/29/21 10:06 Pulse Rate 93 H 05/29/21 10:06 Respiratory Rate 24 05/29/21 10:06 Blood Pressure 187/86 H 05/29/21 10:06 Pulse Oximetry 88 L 05/29/21 10:06 Course Orders Ordered: ED Orders 05/29/21 10:06 XR chest 1V Stat EKG-12 Lead Stat 05/29/21 10:19 Complete Blood Count AUTO DIFF Stat Comprehensive Metabolic Panel Stat D Dimer Stat Lipase Stat NT-proBNP (BNP-Adult 18+) Stat Procalcitonin Stat Troponin & CK Cardiac Panel Stat 05/29/21 10:33 COVID19 - ADMIT (CRYPTOLOGIC TECHNICIAN OPERATOR/ANALYST swab/PCR) Stat 05/29/21 10:52 CT angio chest PE protocol Stat Discontinued Medications Sodium Chloride (Normal Saline 0.9%) 1,000 mls @ 150 mls/hr IV CONT RUBY Last Infusion: 05/29/21 16:00 Dose: 0 mls/hr Documented by: Admin: 05/29/21 11:23 Dose: 150 mls/hr Documented by: RODRÍGUEZ Vital Signs Vital signs: Vital Signs - 8 hr 05/29/21 10:06 05/29/21 10:30 05/29/21 11:10 Temperature 97.4 F L Pulse Rate 93 H 102 H 103 H Pulse Rate [Orthostatic Lying] Pulse Rate [Orthostatic Sitting] Pulse Rate [Orthostatic Standing] Respiratory Rate 24 Blood Pressure 187/86 H Blood Pressure [Orthostatic Lying] Blood Pressure [Orthostatic Sitting] Blood Pressure [Orthostatic Standing] Pulse Oximetry 88 L 96 91 05/29/21 11:30 05/29/21 12:00 05/29/21 12:14 Temperature Pulse Rate 100 H 93 H 101 H Pulse Rate [Orthostatic Lying] Pulse Rate [Orthostatic Sitting] Pulse Rate [Orthostatic Standing] Respiratory Rate Blood Pressure Blood Pressure [Orthostatic Lying] Blood Pressure [Orthostatic Sitting] Blood Pressure [Orthostatic Standing] Pulse Oximetry 95 92 97 05/29/21 12:16 05/29/21 12:17 05/29/21 12:24 Temperature Pulse Rate 107 H 107 H Pulse Rate [Orthostatic Lying] 99 H Pulse Rate [Orthostatic Sitting] 104 H Pulse Rate [Orthostatic Standing] 110 H Respiratory Rate Blood Pressure Blood Pressure [Orthostatic Lying] 155/65 H Blood Pressure [Orthostatic Sitting] 154/69 H Blood Pressure [Orthostatic Standing] 163/72 H Pulse Oximetry 96 96 05/29/21 12:30 05/29/21 13:00 05/29/21 13:15 Temperature Pulse Rate 96 H 93 H 116 H Pulse Rate [Orthostatic Lying] Pulse Rate [Orthostatic Sitting] Pulse Rate [Orthostatic Standing] Respiratory Rate 26 H Blood Pressure 138/63 124/56 L Blood Pressure [Orthostatic Lying] Blood Pressure [Orthostatic Sitting] Blood Pressure [Orthostatic Standing] Pulse Oximetry 93 93 99 05/29/21 13:30 05/29/21 14:00 05/29/21 14:30 Temperature Pulse Rate 101 H 100 H 103 H Pulse Rate [Orthostatic Lying] Pulse Rate [Orthostatic Sitting] Pulse Rate [Orthostatic Standing] Respiratory Rate Blood Pressure 123/57 L Blood Pressure [Orthostatic Lying] Blood Pressure [Orthostatic Sitting] Blood Pressure [Orthostatic Standing] Pulse Oximetry 90 L 93 97 05/29/21 15:00 05/29/21 15:30 05/29/21 15:48 Temperature Pulse Rate 96 H 100 H 99 H Pulse Rate [Orthostatic Lying] Pulse Rate [Orthostatic Sitting] Pulse Rate [Orthostatic Standing] Respiratory Rate 20 Blood Pressure 118/56 L Blood Pressure [Orthostatic Lying] Blood Pressure [Orthostatic Sitting] Blood Pressure [Orthostatic Standing] Pulse Oximetry 100 99 98 MDM - Weakness Lab Data Result diagrams: 05/29/21 10:19 05/29/21 10:19 Labs: Lab Results 05/29/21 05/29/21 05/29/21 Range/Units 10:19 10:19 10:19 WBC 10.8 (4.5-11.0) X10^3/uL RBC 4.64 (4.5-5.9) X10^6/uL Hgb 13.6 (13.5-17.5) g/dL Hct 39.1 L (41-53) % MCV 84.3 (80-100) fL MCH 29.3 (26-34) PG MCHC 34.8 (30-36) % RDW 15.5 H (11.6-14.8) % Plt Count 153 (150-400) X10^3/uL Neut % (Auto) 75.8 H (50-75) % Lymph % (Auto) 10.1 L (25-40) % Villalba % (Auto) 9.0 (3-14) % Eos % (Auto) 4.4 H (2-4) % Baso % (Auto) 0.7 (0-2) % Neut # (Auto) 8200 H (3571-2963) /uL Lymph # (Auto) 1100 (4705-9170) /uL Villalba # (Auto) 1000 H (0-900) /uL Eos # (Auto) 500 H (0-450) /uL Baso # (Auto) 100 (0-100) /uL D-Dimer 2067 H (<230) ng/mL Sodium 130 L (137-145) mmol/L Potassium 3.8 (3.4-5.1) mmol/L Chloride 95 L (98-107) mmol/L Carbon Dioxide 29 (22-32) mmol/L BUN 13 (9-20) mg/dL Creatinine 0.90 (0.66-1.25) mg/dL Estimated GFR > 60.0 (>60) mL/min BUN/Creatinine Ratio 14.4 (6-22) Glucose 212 H (70-100) mg/dL Calcium 8.6 (8.4-10.2) mg/dL Total Bilirubin 1.3 (0.2-1.3) mg/dL AST 45 (17-59) IU/L ALT 41 (<50) IU/L Alkaline Phosphatase 61 (38-126) U/L Total Creatine Kinase 473 H (55-170) U/L CK-MB (CK-2) 4.11 H (<2.37) ng/mL CK-MB (CK-2) Rel Index 0.9 L (1.5-5.0) % Troponin I 0.016 (0.01-0.034) ng/mL NT-Pro-B Natriuret Pep 239 H (<125) pg/mL Total Protein 7.1 (6.3-8.2) g/dL Albumin 3.7 (3.5-5.0) g/dL Globulin 3.4 (1.7-4.1) g/dL Albumin/Globulin Ratio 1.1 (1.0-2.8) Lipase 65 (23-300) U/L Procalcitonin 1.87 H (<0.5) ng/mL SARS-CoV-2 (PCR) (Negative) 05/29/21 Range/Units 10:33 WBC (4.5-11.0) X10^3/uL RBC (4.5-5.9) X10^6/uL Hgb (13.5-17.5) g/dL Hct (41-53) % MCV (80-100) fL MCH (26-34) PG MCHC (30-36) % RDW (11.6-14.8) % Plt Count (150-400) X10^3/uL Neut % (Auto) (50-75) % Lymph % (Auto) (25-40) % Villalba % (Auto) (3-14) % Eos % (Auto) (2-4) % Baso % (Auto) (0-2) % Neut # (Auto) (8392-1433) /uL Lymph # (Auto) (5871-5852) /uL Villalba # (Auto) (0-900) /uL Eos # (Auto) (0-450) /uL Baso # (Auto) (0-100) /uL D-Dimer (<230) ng/mL Sodium (137-145) mmol/L Potassium (3.4-5.1) mmol/L Chloride (98-107) mmol/L Carbon Dioxide (22-32) mmol/L BUN (9-20) mg/dL Creatinine (0.66-1.25) mg/dL Estimated GFR (>60) mL/min BUN/Creatinine Ratio (6-22) Glucose (70-100) mg/dL Calcium (8.4-10.2) mg/dL Total Bilirubin (0.2-1.3) mg/dL AST (17-59) IU/L ALT (<50) IU/L Alkaline Phosphatase (38-126) U/L Total Creatine Kinase (55-170) U/L CK-MB (CK-2) (<2.37) ng/mL CK-MB (CK-2) Rel Index (1.5-5.0) % Troponin I (0.01-0.034) ng/mL NT-Pro-B Natriuret Pep (<125) pg/mL Total Protein (6.3-8.2) g/dL Albumin (3.5-5.0) g/dL Globulin (1.7-4.1) g/dL Albumin/Globulin Ratio (1.0-2.8) Lipase (23-300) U/L Procalcitonin (<0.5) ng/mL SARS-CoV-2 (PCR) Negative (Negative) Imaging Data CT scan - chest: Radiologist Impression: PacoDemarcoBubba W??56??M??1965 ? Allergy/Adv: heparin (porcine), Penicillins, Pork/Porcine Containing Products (More??) Close Chest CTA (Signed) Milind Torrez - 05/29/21 Chest X-Ray (Signed) Milind Torrez - 05/29/21 Lumbar Spine X-Ray (Signed) Brandt Theodore - 05/23/[address] (Signed) Osbaldo Perez - 03/25/21 Injection Lumbar, Sacrum (Signed) Stephen Hamilton - 03/22/21 Chest X-Ray (Signed) Stephen Hamilton - 03/26/[address] (Signed) Karuna Lane - 10/06/19 Foot X-Ray (Signed) Pete Prasad - 08/26/19 Abdomen Ultrasound (Signed) Deshawn Rios - 08/13/19 Ribs X-Ray (Signed) Deshawn Rios - 07/23/19 Chest X-Ray (Signed) Deshawn Rios - 07/23/[address] (Signed) Call,Alonzo - 07/10/[address] (Signed) Call,Alonzo - 07/10/19 Chest X-Ray (Addendum) Call,Alonzo - 07/10/19 Injection Lumbar, Sacrum (Signed) Pete Prasad - 06/24/19 Elbow X-Ray (Signed) Jo Mcgrath - 04/03/19 DI Result 01/13/19 DI Result 01/13/19 Injection Lumbar, Sacrum (Signed) Pete Prasad - 08/07/18 Knee X-Ray (Signed) Stephen Hamilton - 07/18/18 Foot X-Ray (Signed) Pete Prasad - 04/26/18 Radiology - Historical 10/16/17 Radiology - Historical 10/11/17 Radiology - Historical 09/28/17 Launch?[address] [address] [address] Scan Report Signed Patient: Bubba Antonio MR#: [id number] : 1965 Acct:[id number] Age/Sex: 56 / M Date of Service: 05/29/21 Loc: ED Accession Number: [id number] ?? Procedure: CT angio chest PE protocol Ordering Provider: Rajendra Ramires D.O. PROCEDURE:? CT ANGIO CHEST PE PROTOCOL ? INDICATIONS:? severe shortness of breath, critical Dimer, tachycardia ? TECHNIQUE:? After the administration of intravenous contrast, 2 mm thick sections acquired from the pulmonary apices to the posterior costophrenic angles.? 3-dimensional maximum intensity projection (MIP) coronal and sagittal reformats were then acquired through the thorax.? For radiation dose reduction, the following was used:? automated exposure control, adjustment of mA and/or kV according to patient size.? ? COMPARISON:? None. ? FINDINGS:? Image quality:? Excellent.? ? Pulmonary arteries:? Pulmonary arteries are normal in size, and demonstrate no intraluminal filling defects to suggest central pulmonary embolism.? ? Lungs and pleura:? Lungs are clear.? No pleural effusions or pneumothorax.? Central and peripheral airways are patent.? ? Mediastinum:? Heart size is normal, without pericardial effusion.? The coronary arteries have atherosclerotic calcifications.? No mediastinal or hilar adenopathy.? Th oracic aorta is normal in caliber and enhancement.? Esophagus is normal in caliber, without hiatal hernia.? ? Bones and chest wall:? No suspicious bony lesions.? Ribs and thoracic spine appear intact throughout.? Thyroid gland is normal.? No axillary or supraclavicular adenopathy.? ? Abdomen:? Visualized upper abdominal solid organs appear normal in the early arterial phase of enhancement.? ? IMPRESSION:? 1. No pulmonary embolism. 2. No acute abnormality of the chest.? ? ? Dictated by: Milind Torrez M.D. on 05/29/2021 at 11:35 ? ? Approved by: Milind Torerz M.D. on 05/29/2021 at 11:37 ? MDM Narrative Medical decision making narrative: Very early on we discussed with patient the likely need for admission given how profoundly short of breath he becomes with minimal exertion. Many of his labs are quite reassuring and though his D-dimer was critically elevated he does not have evidence of a central pulmonary embolism on CT scan nor is there any airspace disease that is obvious. Much of because of the severity of his illnesses thus far unknown hence the desire to admit the patient. Other diagnoses include dehydration versus underlying infection versus ongoing allergic sequela associated with the hives on his arms. Patient refuses to be admitted to the hospital despite extensive discussion of his diagnoses and illness. He understands that he could be quite ill and by not staying in the hospital he could suffer another fall which may result in permanent disability or even . He states that he needs to get home to get his affairs in order which include taking care of the house as well as multiple pets. We offered to make calls to any friends or family to help him but he states there are no options. We placed a call to social work to see if they had any options and there were none. Patient understands that he may return at any point for re-evaluation and likely admission into the hospital. He hopes to return later today if not tomorrow. That being said, I wrote a prescription for an antibiotic based on the cultures obtained earlier in the week and send them to his pharmacy. His questions have been answered to his apparent satisfaction Discharge Plan Departure Patient Disposition: Left Against Medical Advice Clinical Impression: Acute dyspnea, Cellulitis Fatigue Qualifiers: Fatigue type: unspecified Qualified Code(s): R53.83 - Other fatigue Instructions: DI for Dehydration -- Adult, DI for Shortness of Breath Activity Restrictions/Additional Instructions: *You have been diagnosed with [shortness of breath, weakness, falls due to an unknown cause at this point time. We hope to admit you tonight but understand that you need to address some issues at home. Please understand you may return at any point if you change your mind or get things settled at home. *What to do: *Please continue to take your regular medications as directed. [ x] New medication prescriptions sent to your pharmacy: [[facility] ] [ ] New medication written as a paper prescription [ ] No new medications given *Please follow up with your primary care provider in 2-3 days, call for an appointment. Let them know you were seen in the Emergency Department and that we ask that you be seen in follow up. We will electronically transmit a record of today's note if your PCP is in our system *If you do not have a primary care provider please contact the [facility] Resource line at [phone]. They will ask some questions about your medical history and help get you set up with a doctor in the community. *Return to Emergency Department if you should have any new, worsening or concerning symptoms, such as [fever greater than 101 F, shaking chills, worsening pain, persistent vomiting or other bothersome symptoms] Prescriptions: New ciprofloxacin HCl 500 mg tablet 500 mg PO Q12H Qty: 20 RF: 0 No Action multivitamin Tablet 1 cap PO QDAY Qty: 0 RF: 0 potassium chloride [Klor-Con M20] 20 MEQ tablet,ER particles/crystals 20 meq PO AMCC Qty: 0 RF: 0 spironolactone 100 MG tablet 100 mg PO BID Qty: 0 RF: 0 duloxetine 60 MG capsule,delayed release(DR/EC) 60 mg PO BID Qty: 30 RF: 0 carvedilol [Coreg] 25 MG tablet 25 mg PO BIDCC Qty: 60 RF: 0 metolazone 5 MG tablet 5 mg PO BID Qty: 0 RF: 0 terbinafine HCl 250 MG tablet 250 mg PO QDAYP PRN (Reason: ANTIFUNGAL) Qty: 0 RF: 0 cholecalciferol (vitamin D3) 50,000 UNIT capsule 50,000 unit PO 2XW Qty: 0 RF: 0 pregabalin [Lyrica] 300 mg capsule 1 cap PO TID RF: 0 metformin 500 mg Tablet 1,000 mg PO BID RF: 0 torsemide 20 mg Tablet 40 mg PO TID RF: 0 aspirin 81 mg Tablet,Delayed Release (Dr/Ec) 81 mg PO DAILY RF: 0 tamsulosin [Flomax] 0.4 mg Capsule 0.4 mg PO DAILY RF: 0 levothyroxine 125 mcg Tablet 250 mcg PO DAILY RF: 0 liothyronine 50 mcg Tablet 50 mcg PO DAILY RF: 0 tadalafil [Cialis] 5 mg Tablet 5 mg PO DAILY RF: 0 levocetirizine [Xyzal] 5 mg Tablet 5 mg PO BID RF: 0 mirtazapine 45 mg tablet 45 mg PO BEDTIME RF: 0 hydrochlorothiazide 25 mg tablet 25 mg PO DAILY RF: 0 epinephrine 0.3 mg/0.3 mL auto-injector 0.3 mg IM PRN PRN (Reason: Allergic Reaction) RF: 0 fentanyl 100 mcg/hr patch 72 hour 1 patch Transdermal Q72H RF: 0 methylprednisolone [Medrol (Ivan)] 4 mg tablets,dose pack See Rx Instructions PO PER PKG DIR RF: 0 cephalexin 500 mg capsule 500 mg PO BID RF: 0 Referrals: Jhon Taylor MD [Primary Care Provider] - Stand Alone Forms: Against Medical Advice
[2021-05-29 10:31] LABS: Add Manual Diff / Slide Review NO; Basophils Absolute Auto 100 /uL (0-100); Basophils Percent Auto 0.7 % (0-2); Eosinophils Absolute Auto 500 /uL (0-450); Eosinophils Percent Auto 4.4 % (2-4); Hematocrit 39.1 % (41-53); Hemoglobin 13.6 g/dL (13.5-17.5); Lymphocytes Absolute Auto 1100 /uL (1100-4500); Lymphocytes Percent Auto 10.1 % (25-40); Mean Corpuscular HGB Conc 34.8 % (30-36); Mean Corpuscular Hemoglobin 29.3 PG (26-34); Mean Corpuscular Volume 84.3 fL (80-100); Monocytes Absolute Auto 1000 /uL (0-900); Neutrophils Absolute Auto 8200 /uL (1500-7000); Neutrophils Percent Auto 75.8 % (50-75); Platelet Count 153 X10^3/uL (150-400); Red Blood Cell Count 4.64 X10^6/uL (4.5-5.9); Red Cell Distribution Width 15.5 % (11.6-14.8); White Blood Cell Count 10.8 X10^3/uL (4.5-11.0)
--- NOTE | 2021-05-29 10:41 | PC.NURSE ---
arrived to ER with soaked compression bandages with blood and drainage on both arms. peeled the compression bandages off and there are multiple areas with large amount of blisters and bleeding sores. pt states he is being followed by wound clinic.
[2021-05-29 10:42] LABS: Alanine Aminotransferase 41 IU/L (<50); Albumin 3.7 g/dL (3.5-5.0); Albumin Globulin Ratio 1.1 (1.0-2.8); Alkaline Phosphatase 61 U/L (38-126); Aspartate Aminotransferase 45 IU/L (17-59); BUN Creatinine Ratio 14.4 (6-22); Bilirubin Total 1.3 mg/dL (0.2-1.3); Blood Urea Nitrogen 13 mg/dL (9-20); Calcium 8.6 mg/dL (8.4-10.2); Carbon Dioxide 29 mmol/L (22-32); Chloride 95 mmol/L (98-107); Creatine Kinase 473 U/L (55-170); Estimated Glomerular Filt Rate > 60.0 mL/min (>60); Globulin 3.4 g/dL (1.7-4.1); Glucose 212 mg/dL (70-100); HEMOLYSIS 27 (0-50); Lipase 65 U/L (23-300); Potassium 3.8 mmol/L (3.4-5.1); Sodium 130 mmol/L (137-145); Total Protein 7.1 g/dL (6.3-8.2)
[2021-05-29 10:48] LABS: D Dimer 2067 ng/mL (<230)
--- NOTE | 2021-05-29 10:52 | DI.CT.S_ITS ---
PROCEDURE: CT ANGIO CHEST PE PROTOCOL INDICATIONS: severe shortness of breath, critical Dimer, tachycardia TECHNIQUE: After the administration of intravenous contrast, 2 mm thick sections acquired from the pulmonary apices to the posterior costophrenic angles. 3-dimensional maximum intensity projection (MIP) coronal and sagittal reformats were then acquired through the thorax. For radiation dose reduction, the following was used: automated exposure control, adjustment of mA and/or kV according to patient size. COMPARISON: None. FINDINGS: Image quality: Excellent. Pulmonary arteries: Pulmonary arteries are normal in size, and demonstrate no intraluminal filling defects to suggest central pulmonary embolism. Lungs and pleura: Lungs are clear. No pleural effusions or pneumothorax. Central and peripheral airways are patent. Mediastinum: Heart size is normal, without pericardial effusion. The coronary arteries have atherosclerotic calcifications. No mediastinal or hilar adenopathy. Thoracic aorta is normal in caliber and enhancement. Esophagus is normal in caliber, without hiatal hernia. Bones and chest wall: No suspicious bony lesions. Ribs and thoracic spine appear intact throughout. Thyroid gland is normal. No axillary or supraclavicular adenopathy. Abdomen: Visualized upper abdominal solid organs appear normal in the early arterial phase of enhancement. IMPRESSION: 1. No pulmonary embolism. 2. No acute abnormality of the chest. Dictated by: Milind Torrez M.D. on 05/29/2021 at 11:35 Approved by: Milind Torrez M.D. on 05/29/2021 at 11:37
[2021-05-29 10:54] LABS: NT-proBNP (BNP-Adult 18+) 239 pg/mL (<125); Troponin I 0.016 ng/mL (0.01-0.034)
[2021-05-29 10:57] LABS: CKMB % Relative Index 0.9 % (1.5-5.0); Creatine Kinase MB 4.11 ng/mL (<2.37)
[2021-05-29 10:59] LABS: Procalcitonin 1.87 ng/mL (<0.5)
--- NOTE | 2021-05-29 11:09 | PC.NURSE ---
pt arrived also with wounds all over his body too. weeping and draining.
[2021-05-29] MEDS: SODIUM CHLORIDE 0.9% 1,000 ML 150 ML IV (11:23)
[2021-05-29 11:47] LABS: COVID19 - ADMIT (NP swab/PCR) Negative (Negative)
--- NOTE | 2021-05-29 16:07 | PC.NURSE ---
Pt right foot wounds dressed with xeroform, abd pad, and gauze roll. Pt states he follows up with [facility] for care and last dressing change was Sunday. Also dressed pt arm sores with non-adhering pads and sleeve. Pt tolerated procedure well.
== END 2021-05-29 16:32 | disposition left against medical advice (07) ==
PROVIDERS: Emergency Provider Emergency Medicine; Family Provider Internal Medicine; PCP Internal Medicine
DX: R06.00 Dyspnea, unspecified (principal); L03.90 Cellulitis, unspecified; R53.83 Other fatigue; R53.1 Weakness; R21 Rash and other nonspecific skin eruption; R00.0 Tachycardia, unspecified; Z20.822 Contact with and (suspected) exposure to COVID-19
CPT/HCPCS: 36415; 51798; 71045; 71275; 80053; 82550; 82553; 83690; 83880; 84145; 84484; 85025; 85379; 87635; 93005; 96360; 96361; 99285; C9803; Q9967

== ENCOUNTER 2021-05-30 15:01 | Emergency (ER) | payer OTHER, MEDICAID, SELFPAY ==
[2021-03-10 11:22] VITALS: BMI 53.1
[2021-05-30] VITALS (10 sets, daily range): BP systolic 115–136; BP diastolic 57–73; PULSE 90–101; RESP 17; TEMP 37.3; O2SAT 83–100; BMI 42.7
--- NOTE | 2021-05-30 17:03 | PC.NURSE ---
Pt reports chills overnight. States he's been drinking a lot of fluid and has urge to pee but only produced about a cup of urine since yesterday's visit. Has itchy lesions and fluid filled areas prominently on arms and scattered on various parts of body, worse since yesterday. Denies any falls since last visit.
[2021-05-30 18:53] LABS: Add Manual Diff / Slide Review NO; Basophils Absolute Auto 0 /uL (0-100); Basophils Percent Auto 0.3 % (0-2); Eosinophils Absolute Auto 600 /uL (0-450); Eosinophils Percent Auto 5.9 % (2-4); Hematocrit 37.8 % (41-53); Hemoglobin 13.1 g/dL (13.5-17.5); Lymphocytes Absolute Auto 1100 /uL (1100-4500); Lymphocytes Percent Auto 9.8 % (25-40); Mean Corpuscular HGB Conc 34.8 % (30-36); Mean Corpuscular Hemoglobin 29.3 PG (26-34); Mean Corpuscular Volume 84.3 fL (80-100); Monocytes Absolute Auto 1300 /uL (0-900); Monocytes Percent Auto 11.9 % (3-14); Neutrophils Absolute Auto 7800 /uL (1500-7000); Neutrophils Percent Auto 72.1 % (50-75); Platelet Count 163 X10^3/uL (150-400); Red Blood Cell Count 4.48 X10^6/uL (4.5-5.9); Red Cell Distribution Width 15.4 % (11.6-14.8); White Blood Cell Count 10.8 X10^3/uL (4.5-11.0)
[2021-05-30 19:09] LABS: Alanine Aminotransferase 31 IU/L (<50); Albumin 3.4 g/dL (3.5-5.0); Alkaline Phosphatase 69 U/L (38-126); Aspartate Aminotransferase 33 IU/L (17-59); BUN Creatinine Ratio 17.2 (6-22); Bilirubin Total 0.7 mg/dL (0.2-1.3); Blood Urea Nitrogen 17 mg/dL (9-20); Calcium 8.5 mg/dL (8.4-10.2); Carbon Dioxide 28 mmol/L (22-32); Chloride 94 mmol/L (98-107); Estimated Glomerular Filt Rate > 60.0 mL/min (>60); Globulin 3.3 g/dL (1.7-4.1); Glucose 195 mg/dL (70-100); HEMOLYSIS < 15 (0-50); Sodium 129 mmol/L (137-145); Total Protein 6.7 g/dL (6.3-8.2)
[2021-05-30 19:10] LABS: Lactate (Lactic Acid) 1.2 mmol/L (0.7-2.1)
--- NOTE | 2021-05-30 19:10 | ED.SOB ---
HPI - SOB/Dyspnea <Sally Groves PA-C - Last Filed: 05/30/21 21:02> General Chief Complaint: Shortness of Breath/Dyspnea Stated Complaint: SOB, CHILLS Time Seen by Provider: 05/30/21 16:54 Source: patient Mode of arrival: Wheelchair History of Present Illness HPI Narrative: [age] year old male with past medical history phrenic nerve palsy, degenerative disc disease, peripheral neuropathy, venous stasis presents to the ED with worsening shortness of breath, rash. Patient was seen in the ED yesterday for the same complaint. Patient refused admission and left Against Medical Advice, since there was no on else to take care of his dogs. Patient returns today and reports feeling worse. Patient says that he cannot readmitted today either due to his dogs. Patient was seen several days ago for a bilateral arm rash, then saw his PCP who recommended a topical medication, following which his rash became more widespread and bolus in nature. He denies any intraoral rashes or blisters. Patient endorses some subjective fevers and chills, worsening shortness of breath. Patient also says he feels dehydrated. Patient endorses urinary frequency, but says he pees very little. Patient denies chest pain, nausea, vomiting, abdominal pain, dysuria. Patient denies experiencing syncope since he left the ED yesterday. Patient states he was diagnosed with type 2 diabetes several years ago, however he does not take any medications for it. Related Data Home Medications Medication Instructions Recorded Confirmed multivitamin 1 cap PO QDAY #0 10/13/11 05/23/21 potassium chloride 20 mEq 20 meq PO [facility] #0 tab 04/18/16 05/23/21 tablet,extended release(part/cryst) (Klor-Con M) spironolactone 100 mg tablet 100 mg PO BID #0 04/18/16 05/23/21 carvedilol 25 mg tablet (Coreg) 25 mg PO BIDCC #60 09/28/17 05/23/21 duloxetine 60 mg capsule,delayed 60 mg PO BID #30 09/28/17 05/23/21 release cholecalciferol (vitamin D3) 1,250 50,000 unit PO 2XW #0 10/11/17 05/23/21 mcg (50,000 unit) capsule metolazone 5 mg tablet 5 mg PO BID #0 10/11/17 05/23/21 terbinafine HCl 250 mg tablet 250 mg PO QDAYP PRN #0 10/11/17 05/23/21 aspirin 81 mg tablet,delayed 81 mg PO DAILY 05/28/18 05/23/21 release levocetirizine 5 mg tablet (Xyzal) 5 mg PO BID 05/28/18 05/23/21 levothyroxine 125 mcg tablet 250 mcg PO DAILY 05/28/18 05/23/21 liothyronine 50 mcg tablet 50 mcg PO DAILY 05/28/18 05/23/21 metformin 500 mg tablet 1,000 mg PO BID 05/28/18 05/23/21 pregabalin 300 mg capsule 1 cap PO TID 05/28/18 05/23/21 tadalafil 5 mg tablet (Cialis) 5 mg PO DAILY 05/28/18 05/23/21 tamsulosin 0.4 mg capsule (Flomax) 0.4 mg PO DAILY 05/28/18 05/23/21 torsemide 20 mg tablet 40 mg PO TID 05/28/18 05/23/21 fentanyl 100 mcg/hr transdermal 1 patch TRANSDERMAL Q72H 12/25/18 05/23/21 patch epinephrine 0.3 mg/0.3 mL 0.3 mg IM PRN PRN 07/10/19 05/23/21 injection, auto-injector hydrochlorothiazide 25 mg tablet 25 mg PO DAILY 07/10/19 05/23/21 mirtazapine 45 mg tablet 45 mg PO BEDTIME 07/10/19 05/23/21 cephalexin 500 mg capsule 500 mg PO BID 05/23/21 05/23/21 methylprednisolone 4 mg tablets in See Rx Instructions PO PER PKG DIR 05/23/21 05/23/21 a dose pack (Medrol (Ivan)) Previous Rx's Medication Instructions Recorded ciprofloxacin HCl 500 mg tablet 500 mg PO Q12H #20 tab 05/29/21 ciprofloxacin HCl 500 mg tablet 500 mg PO BID 10 Days #20 tab 05/30/21 Allergies Allergy/AdvReac Type Severity Reaction Status Date / Time heparin (porcine) Allergy Severe BREATHINBG Verified 05/30/21 15:41 [HEPARIN,PORCINE] DIFFICULTIES Penicillins Allergy Severe RASH, Verified 05/30/21 15:41 THROAT SWELLING Pork/Porcine Containing Allergy Severe RASH, Verified 05/30/21 15:41 Products THROAT SWELLING, VOMITING Review of Systems <Sally Groves PA-C - Last Filed: 05/30/21 21:02> Constitutional Constitutional: Reports chills, Reports fatigue, Reports fever(s), Denies frequent falls, Denies lethargy and Denies weakness Eyes Eyes: Denies change in vision, Denies eye discharge, Denies irritation and Denies loss of vision ENT Ears, Nose, Mouth, and Throat: Denies change in voice, Denies dizziness, Denies neck pain, Denies sore throat and Denies throat swelling Cardiovascular Cardiovascular: Denies chest pain, Denies irregular heart rhythm, Denies lightheadedness, Denies palpitations, Reports dyspnea, Denies dyspnea on exertion and Denies orthopnea Respiratory Respiratory: Denies cough, Reports dyspnea, Denies dyspnea on exertion and Denies wheezing Gastrointestinal Gastrointestinal: Denies abdominal pain, Denies change in bowel habits, Denies diarrhea, Denies nausea and Denies vomiting Genitourinary Comments: Increased urinary frequency, no dysuria. Patient states he is only able to urinate a few drops each time. Musculoskeletal Musculoskeletal: Denies neck pain and Denies numbness Integumentary/Breasts Skin/Breast: Denies pruritus, Denies erythema, Reports rash and Denies wounds Neurologic Neurologic: Denies behavioral changes, Denies confusion, Denies dizziness, Denies frequent falls, Denies loss of vision, Denies numbness and Denies weakness Psychiatric Psychiatric: Denies anxiety, Denies behavioral changes, Denies confusion, Denies depression, Denies homicidal ideation and Denies suicidal ideation Endocrine Endocrine: Reports fatigue, Denies flushing and Denies palpitations Hematologic/Lymphatic Hematologic/Lymphatic: Denies easy bruising Allergic/Immunologic Allergic/Immunologic: Denies urticaria, Denies throat swelling and Denies wheezing Patient History <Sally Groves PA-C - Last Filed: 05/30/21 21:02> Medical History Anemia Arthritis Asthma 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, thoracic Herniated nucleus pulposus, L1-2 History of migraine headaches Obesity Spinal stenosis of lumbar region at multiple levels Surgical History Hx of fusion of cervical spine Hx of hand surgery Social History Smoking Status: Never smoker Smoking Status: Never smoker alcohol intake frequency: holidays/special occasions only Substance Use Type: does not use Exam <Sally Groves PA-C - Last Filed: 05/30/21 21:02> Initial Vital Signs Initial Vital Signs: Vital Signs Temperature 99.1 F 05/30/21 15:38 Pulse Rate 96 H 05/30/21 15:38 Respiratory Rate 17 05/30/21 15:38 Blood Pressure 136/72 05/30/21 15:38 Pulse Oximetry 98 05/30/21 15:38 Const General: cooperative and in distress HENMT Head: normocephalic and atraumatic Ears: external ears normal and TM's normal bilaterally Nose: external nose normal and No nasal discharge Face and sinus: sinuses nontender, face symmetric, no sinus tenderness and No dry mucous membranes Mouth: oral mucosae normal and moist mucous membranes Teeth and gingiva: dentition normal Throat: tonsils normal and uvula midline Eyes General: appearance normal, both eyes and all related structures Eyelids: eyelids normal Conjunctivae: conjunctivae normal Sclera: sclerae normal Pupils: PERRL EOM: EOM intact bilaterally Neck Neck: normal visual inspection, trachea midline, No lymphadenopathy, No midline deformity and No JVD Lymphatic: No lymphedema Chest Chest: normal inspection of the chest Resp Effort & Inspection: able to speak in complete sentences, no respiratory distress and no use of accessory muscles Auscultation: clear to auscultation bilaterally, no rales, no rhonchi and no wheezes Other: Patient appears to be in some distress, increased work of breathing. Patient appears short of breath even with minimal exertion. Patient is saturating well on room air at 99%. Lungs are clear to auscultation bilaterally. Cardio Rate: regular rate Rhythm: regular rhythm Heart Sounds: no click, no gallops, no murmurs and no rubs Pulses: normal peripheral pulses GI Inspection: non-distended Palpation: soft, no hepatosplenomegaly, No guarding, No pulsatile mass and No tender Auscultation: normal bowel sounds Back/Spine/Pelvis Back: No CVA tenderness Cervical Spine: cervical ROM normal and No pain with cervical ROM Thoracic/Lumbar Spine: thoracic and lumbar spine normal to inspection Skin General: No jaundice and No petechiae Other: Diffuse bullous rash on bilateral arms, bilateral lower extremities, chest. Neuro General: patient alert, patient oriented x3, gait normal and no focal motor deficits Speech: speech normal Extrem General: full ROM, no clubbing, cyanosis or edema, no pedal edema and no calf tenderness Psych Appearance: well kempt Mental Status: mental status grossly normal Attitude: cooperative Thought Content: normal and suicidality Judgment: judgment good <Rajendra Ramires DO - Last Filed: 06/06/21 07:32> Initial Vital Signs Initial Vital Signs: Vital Signs Temperature 99.1 F 05/30/21 15:38 Pulse Rate 96 H 05/30/21 15:38 Respiratory Rate 17 05/30/21 15:38 Blood Pressure 136/72 05/30/21 15:38 Pulse Oximetry 98 05/30/21 15:38 Course <Sally Groves PA-C - Last Filed: 05/30/21 21:02> Course Course Narrative: Labs grossly unchanged from yesterday. WBC unchanged. Not acidotic, no elevated anion gap, neg ketones, not DKA. UA positive for UTI. Will treat with Ciprofloxacin. Chest x-ray negative for any acute findings, unchanged from yesterday's x-ray. Given that it is still unclear as to why the patient is so short of breath, despite the workup, discussed admission with patient for further workup. Patient declined admission due to not having anyone care for his dogs. Discussed ED return precautions with patient, patient verbalized understanding. Will send patient home with a prescription for Cipro. Orders Ordered: Discontinued Medications Ciprofloxacin (Ciprofloxacin 250 Mg Tablet) 500 mg PO NOW ONE Stop: 05/30/21 20:05 Last Admin: 05/30/21 20:37 Dose: 500 mg Documented by: RODRÍGUEZ Ondansetron HCl (Ondansetron 4 Mg/2 Ml Inj) 4 mg IV NOW ONE Stop: 05/30/21 20:51 Last Admin: 05/30/21 21:15 Dose: 4 mg Documented by: RODRÍGUEZ Vital Signs Vital signs: Vital Signs - 8 hr 05/30/21 15:38 05/30/21 17:28 05/30/21 17:30 Temperature 99.1 F Pulse Rate 96 H 92 H 93 H Respiratory Rate 17 Blood Pressure 136/72 131/67 Pulse Oximetry 98 100 100 05/30/21 18:00 05/30/21 18:30 05/30/21 19:00 Temperature Pulse Rate 93 H 90 92 H Respiratory Rate Blood Pressure Pulse Oximetry 100 100 100 05/30/21 19:26 05/30/21 19:30 05/30/21 20:17 Temperature Pulse Rate 92 H 93 H 101 H Respiratory Rate Blood Pressure 128/73 115/57 L Pulse Oximetry 93 96 83 L 05/30/21 20:30 Temperature Pulse Rate 97 H Respiratory Rate Blood Pressure 124/69 Pulse Oximetry 97 <Rajendra Ramires DO - Last Filed: 06/06/21 07:32> Orders Ordered: Discontinued Medications Ciprofloxacin (Ciprofloxacin 250 Mg Tablet) 500 mg PO NOW ONE Stop: 05/30/21 20:05 Last Admin: 05/30/21 20:37 Dose: 500 mg Documented by: TOÑOOR Ondansetron HCl (Ondansetron 4 Mg/2 Ml Inj) 4 mg IV NOW ONE Stop: 05/30/21 20:51 Last Admin: 05/30/21 21:15 Dose: 4 mg Documented by: RODRÍGUEZ Vital Signs Vital signs: Vital Signs - 8 hr 05/30/21 15:38 05/30/21 17:28 05/30/21 17:30 Temperature 99.1 F Pulse Rate 96 H 92 H 93 H Respiratory Rate 17 Blood Pressure 136/72 131/67 Pulse Oximetry 98 100 100 05/30/21 18:00 05/30/21 18:30 05/30/21 19:00 Temperature Pulse Rate 93 H 90 92 H Respiratory Rate Blood Pressure Pulse Oximetry 100 100 100 05/30/21 19:26 05/30/21 19:30 05/30/21 20:17 Temperature Pulse Rate 92 H 93 H 101 H Respiratory Rate Blood Pressure 128/73 115/57 L Pulse Oximetry 93 96 83 L 05/30/21 20:30 Temperature Pulse Rate 97 H Respiratory Rate Blood Pressure 124/69 Pulse Oximetry 97 MDM - SOB/Dyspnea <Sally Groves PA-C - Last Filed: 05/30/21 21:02> Lab Data Lab results narrative: Labs WNL. UA positive for UTI. Result diagrams: 05/30/21 18:40 05/30/21 18:40 Labs: Lab Results 05/30/21 05/30/21 05/30/21 Range/Units 17:14 18:40 18:40 WBC 10.8 (4.5-11.0) X10^3/uL RBC 4.48 L (4.5-5.9) X10^6/uL Hgb 13.1 L (13.5-17.5) g/dL Hct 37.8 L (41-53) % MCV 84.3 (80-100) fL MCH 29.3 (26-34) PG MCHC 34.8 (30-36) % RDW 15.4 H (11.6-14.8) % Plt Count 163 (150-400) X10^3/uL Neut % (Auto) 72.1 (50-75) % Lymph % (Auto) 9.8 L (25-40) % [place] % (Auto) 11.9 (3-14) % Eos % (Auto) 5.9 H (2-4) % Baso % (Auto) 0.3 (0-2) % Neut # (Auto) 7800 H (6886-1240) /uL Lymph # (Auto) 1100 (6792-7802) /uL [place] # (Auto) 1300 H (0-900) /uL Eos # (Auto) 600 H (0-450) /uL Baso # (Auto) 0 (0-100) /uL VBG pH 7.44 H (7.33-7.43) VBG pCO2 39.2 L (45-50) mmHg VBG pO2 39 (35-45) mmHg VBG HCO3 27 (23-28) mmol/L VBG Total CO2 28 (24-29) mmol/L VBG O2 Saturation 76 H (70-75) % VBG Base Excess 3.0 (0-4) mmol/L Sodium 129 L (137-145) mmol/L Potassium 4.0 (3.4-5.1) mmol/L Chloride 94 L (98-107) mmol/L Carbon Dioxide 28 (22-32) mmol/L BUN 17 (9-20) mg/dL Creatinine 0.99 (0.66-1.25) mg/dL Estimated GFR > 60.0 (>60) mL/min BUN/Creatinine Ratio 17.2 (6-22) Glucose 195 H (70-100) mg/dL Lactate (0.7-2.1) mmol/L Calcium 8.5 (8.4-10.2) mg/dL Total Bilirubin 0.7 (0.2-1.3) mg/dL AST 33 (17-59) IU/L ALT 31 (<50) IU/L Alkaline Phosphatase 69 (38-126) U/L Troponin I (0.01-0.034) ng/mL Total Protein 6.7 (6.3-8.2) g/dL Albumin 3.4 L (3.5-5.0) g/dL Globulin 3.3 (1.7-4.1) g/dL Albumin/Globulin Ratio 1.0 (1.0-2.8) Urine RBC (0-5/HPF) Urine WBC (0-5/HPF) Ur Squamous Epith Cells (0-5/HPF) Amorphous Sediment Urine Bacteria (None) Urine Mucus (Negative) Ur Culture Indicated? Ketones 0.09 (<0.27) mmol/L 05/30/21 05/30/21 05/30/21 Range/Units 18:40 18:40 19:40 WBC (4.5-11.0) X10^3/uL RBC (4.5-5.9) X10^6/uL Hgb (13.5-17.5) g/dL Hct (41-53) % MCV (80-100) fL MCH (26-34) PG MCHC (30-36) % RDW (11.6-14.8) % Plt Count (150-400) X10^3/uL Neut % (Auto) (50-75) % Lymph % (Auto) (25-40) % [place] % (Auto) (3-14) % Eos % (Auto) (2-4) % Baso % (Auto) (0-2) % Neut # (Auto) (1011-5071) /uL Lymph # (Auto) (1366-5807) /uL [place] # (Auto) (0-900) /uL Eos # (Auto) (0-450) /uL Baso # (Auto) (0-100) /uL VBG pH (7.33-7.43) VBG pCO2 (45-50) mmHg VBG pO2 (35-45) mmHg VBG HCO3 (23-28) mmol/L VBG Total CO2 (24-29) mmol/L VBG O2 Saturation (70-75) % VBG Base Excess (0-4) mmol/L Sodium (137-145) mmol/L Potassium (3.4-5.1) mmol/L Chloride (98-107) mmol/L Carbon Dioxide (22-32) mmol/L BUN (9-20) mg/dL Creatinine (0.66-1.25) mg/dL Estimated GFR (>60) mL/min BUN/Creatinine Ratio (6-22) Glucose (70-100) mg/dL Lactate 1.2 (0.7-2.1) mmol/L Calcium (8.4-10.2) mg/dL Total Bilirubin (0.2-1.3) mg/dL AST (17-59) IU/L ALT (<50) IU/L Alkaline Phosphatase (38-126) U/L Troponin I < 0.012 (0.01-0.034) ng/mL Total Protein (6.3-8.2) g/dL Albumin (3.5-5.0) g/dL Globulin (1.7-4.1) g/dL Albumin/Globulin Ratio (1.0-2.8) Urine RBC 1-5/hpf (0-5/HPF) Urine WBC 5-10/hpf H (0-5/HPF) Ur Squamous Epith Cells 1-5 /hpf (0-5/HPF) Amorphous Sediment 1+ Urine Bacteria Few (2-10) H (None) Urine Mucus 1+ H (Negative) Ur Culture Indicated? Specimen cultured Ketones (<0.27) mmol/L Urine Dip Bedside Urine Glucose Negative Bedside Urine Bilirubin - Negative Bedside Urine Ketone - Negative Urine Specific [place] 1.025 Bedside Urine Occult Blood +++ Bedside Urine pH 6.0 Bedside Urine Protein ++ 100 Bedside Urine Urobilinogen +/- 1mg Bedside Urine Nitrite - Negative Bedside Urine Leukocytes + 70 Esterase Imaging Data Chest x-ray: Radiologist's Impression: PROCEDURE:? XR CHEST 2V ? INDICATIONS:? SOB ? TECHNIQUE:? 2 views of the chest were acquired.? ? COMPARISON:? [facility], CR, XR CHEST 1V, 03/26/2020, 12:42.? [facility], CR, XR CHEST 1V, 05/29/2021, 10:18. ? FINDINGS:? ? Surgical changes and devices:? Clips projecting in the right base of neck and partially visualized cervical spine fixation hardware ? Lungs and pleura:? Lungs are clear.? No pleural effusions or pneumothorax.? ? Mediastinum:? Mediastinal contours are normal.? Heart size is normal.? ? Bones and chest wall:? Redemonstrated multiple left-sided rib fractures as before. ? IMPRESSION:? ? No acute disease. ? Dictated by: Deshawn Rios M.D. on 05/30/2021 at 20:51 ? ? Approved by: Deshawn Rios M.D. on 05/30/2021 at 20:52 ? ECG Data Interpretation: Normal sinus rhythm, no ST-T changes. MDM Narrative Medical decision making narrative: [age] year old male with past medical history phrenic nerve palsy, degenerative disc disease, peripheral neuropathy, venous stasis presents to the ED with worsening shortness of breath, rash. Concern for drug-induced allergic rash versus DKA versus UTI versus dehydration. Patient's workup from yesterday was negative for PE, pneumonia. Chest CT did not show any evidence of airway disease. Patient appears to be significantly short of breath with minimal exertion, but is saturating at 99% on room air. Will order labs, EKG, troponin, lactate, ketones, UA, VBG, chest x-ray. Will reassess. <Rajendra Ramires, - Last Filed: 06/06/21 07:32> Lab Data Labs: Lab Results 05/30/21 05/30/21 05/30/21 Range/Units 17:14 18:40 18:40 WBC 10.8 (4.5-11.0) X10^3/uL RBC 4.48 L (4.5-5.9) X10^6/uL Hgb 13.1 L (13.5-17.5) g/dL Hct 37.8 L (41-53) % MCV 84.3 (80-100) fL MCH 29.3 (26-34) PG MCHC 34.8 (30-36) % RDW 15.4 H (11.6-14.8) % Plt Count 163 (150-400) X10^3/uL Neut % (Auto) 72.1 (50-75) % Lymph % (Auto) 9.8 L (25-40) % [place] % (Auto) 11.9 (3-14) % Eos % (Auto) 5.9 H (2-4) % Baso % (Auto) 0.3 (0-2) % Neut # (Auto) 7800 H (5124-4793) /uL Lymph # (Auto) 1100 (3000-4705) /uL [place] # (Auto) 1300 H (0-900) /uL Eos # (Auto) 600 H (0-450) /uL Baso # (Auto) 0 (0-100) /uL VBG pH 7.44 H (7.33-7.43) VBG pCO2 39.2 L (45-50) mmHg VBG pO2 39 (35-45) mmHg VBG HCO3 27 (23-28) mmol/L VBG Total CO2 28 (24-29) mmol/L VBG O2 Saturation 76 H (70-75) % VBG Base Excess 3.0 (0-4) mmol/L Sodium 129 L (137-145) mmol/L Potassium 4.0 (3.4-5.1) mmol/L Chloride 94 L (98-107) mmol/L Carbon Dioxide 28 (22-32) mmol/L BUN 17 (9-20) mg/dL Creatinine 0.99 (0.66-1.25) mg/dL Estimated GFR > 60.0 (>60) mL/min BUN/Creatinine Ratio 17.2 (6-22) Glucose 195 H (70-100) mg/dL Lactate (0.7-2.1) mmol/L Calcium 8.5 (8.4-10.2) mg/dL Total Bilirubin 0.7 (0.2-1.3) mg/dL AST 33 (17-59) IU/L ALT 31 (<50) IU/L Alkaline Phosphatase 69 (38-126) U/L Troponin I (0.01-0.034) ng/mL Total Protein 6.7 (6.3-8.2) g/dL Albumin 3.4 L (3.5-5.0) g/dL Globulin 3.3 (1.7-4.1) g/dL Albumin/Globulin Ratio 1.0 (1.0-2.8) Urine RBC (0-5/HPF) Urine WBC (0-5/HPF) Ur Squamous Epith Cells (0-5/HPF) Amorphous Sediment Urine Bacteria (None) Urine Mucus (Negative) Ur Culture Indicated? Ketones 0.09 (<0.27) mmol/L 05/30/21 05/30/21 05/30/21 Range/Units 18:40 18:40 19:40 WBC (4.5-11.0) X10^3/uL RBC (4.5-5.9) X10^6/uL Hgb (13.5-17.5) g/dL Hct (41-53) % MCV (80-100) fL MCH (26-34) PG MCHC (30-36) % RDW (11.6-14.8) % Plt Count (150-400) X10^3/uL Neut % (Auto) (50-75) % Lymph % (Auto) (25-40) % [place] % (Auto) (3-14) % Eos % (Auto) (2-4) % Baso % (Auto) (0-2) % Neut # (Auto) (0564-7872) /uL Lymph # (Auto) (7480-8327) /uL [place] # (Auto) (0-900) /uL Eos # (Auto) (0-450) /uL Baso # (Auto) (0-100) /uL VBG pH (7.33-7.43) VBG pCO2 (45-50) mmHg VBG pO2 (35-45) mmHg VBG HCO3 (23-28) mmol/L VBG Total CO2 (24-29) mmol/L VBG O2 Saturation (70-75) % VBG Base Excess (0-4) mmol/L Sodium (137-145) mmol/L Potassium (3.4-5.1) mmol/L Chloride (98-107) mmol/L Carbon Dioxide (22-32) mmol/L BUN (9-20) mg/dL Creatinine (0.66-1.25) mg/dL Estimated GFR (>60) mL/min BUN/Creatinine Ratio (6-22) Glucose (70-100) mg/dL Lactate 1.2 (0.7-2.1) mmol/L Calcium (8.4-10.2) mg/dL Total Bilirubin (0.2-1.3) mg/dL AST (17-59) IU/L ALT (<50) IU/L Alkaline Phosphatase (38-126) U/L Troponin I < 0.012 (0.01-0.034) ng/mL Total Protein (6.3-8.2) g/dL Albumin (3.5-5.0) g/dL Globulin (1.7-4.1) g/dL Albumin/Globulin Ratio (1.0-2.8) Urine RBC 1-5/hpf (0-5/HPF) Urine WBC 5-10/hpf H (0-5/HPF) Ur Squamous Epith Cells 1-5 /hpf (0-5/HPF) Amorphous Sediment 1+ Urine Bacteria Few (2-10) H (None) Urine Mucus 1+ H (Negative) Ur Culture Indicated? Specimen cultured Ketones (<0.27) mmol/L Urine Dip Bedside Urine Glucose Negative Bedside Urine Bilirubin - Negative Bedside Urine Ketone - Negative Urine Specific [place] 1.025 Bedside Urine Occult Blood +++ Bedside Urine pH 6.0 Bedside Urine Protein ++ 100 Bedside Urine Urobilinogen +/- 1mg Bedside Urine Nitrite - Negative Bedside Urine Leukocytes + 70 Esterase Discharge Plan Departure Patient Disposition: Home Clinical Impression: UTI (urinary tract infection) Qualifiers: Urinary tract infection type: site unspecified Hematuria presence: with hematuria Qualified Code(s): N39.0 - Urinary tract infection, site not specified Instructions: DI for Urinary Tract Infection (UTI) Activity Restrictions/Additional Instructions: You were evaluated in the ED today for worsening shortness of breath and urinary frequency. Your labs were within normal limits. However, your urinalysis showed a UTI. You have been started on the antibiotic ciprofloxacin for your urinary tract infection. Please complete the course of ciprofloxacin. Your labs, chest x-ray, EKG did not show anything specific to explain your shortness of breath. We would have liked to admit you today for further workup for it. However, you are unable to stay overnight due to having no one to take care of her dogs. Return to the ED if you experience worsening shortness of breath, chest pain, fever, chills. Prescriptions: New ciprofloxacin HCl 500 mg tablet 500 mg PO BID 10 Days Qty: 20 RF: 0 No Action multivitamin Tablet 1 cap PO QDAY Qty: 0 RF: 0 potassium chloride [Klor-Con M20] 20 MEQ tablet,ER particles/crystals 20 meq PO [facility] Qty: 0 RF: 0 spironolactone 100 MG tablet 100 mg PO BID Qty: 0 RF: 0 duloxetine 60 MG capsule,delayed release(DR/EC) 60 mg PO BID Qty: 30 RF: 0 carvedilol [Coreg] 25 MG tablet 25 mg PO BIDCC Qty: 60 RF: 0 metolazone 5 MG tablet 5 mg PO BID Qty: 0 RF: 0 terbinafine HCl 250 MG tablet 250 mg PO QDAYP PRN (Reason: ANTIFUNGAL) Qty: 0 RF: 0 cholecalciferol (vitamin D3) 50,000 UNIT capsule 50,000 unit PO 2XW Qty: 0 RF: 0 pregabalin [Lyrica] 300 mg capsule 1 cap PO TID RF: 0 metformin 500 mg Tablet 1,000 mg PO BID RF: 0 torsemide 20 mg Tablet 40 mg PO TID RF: 0 aspirin 81 mg Tablet,Delayed Release (Dr/Ec) 81 mg PO DAILY RF: 0 tamsulosin [Flomax] 0.4 mg Capsule 0.4 mg PO DAILY RF: 0 levothyroxine 125 mcg Tablet 250 mcg PO DAILY RF: 0 liothyronine 50 mcg Tablet 50 mcg PO DAILY RF: 0 tadalafil [Cialis] 5 mg Tablet 5 mg PO DAILY RF: 0 levocetirizine [Xyzal] 5 mg Tablet 5 mg PO BID RF: 0 mirtazapine 45 mg tablet 45 mg PO BEDTIME RF: 0 hydrochlorothiazide 25 mg tablet 25 mg PO DAILY RF: 0 epinephrine 0.3 mg/0.3 mL auto-injector 0.3 mg IM PRN PRN (Reason: Allergic Reaction) RF: 0 ciprofloxacin HCl 500 mg tablet 500 mg PO Q12H Qty: 20 RF: 0 fentanyl 100 mcg/hr patch 72 hour 1 patch Transdermal Q72H RF: 0 methylprednisolone [Medrol (Ivan)] 4 mg tablets,dose pack See Rx Instructions PO PER PKG DIR RF: 0 cephalexin 500 mg capsule 500 mg PO BID RF: 0 Referrals: Jhon Taylor MD [Primary Care Provider] - <Rajendra Ramires DO - Last Filed: 06/06/21 07:32> Cosign ED Attending Cosignature Attestation: I was immediately available in the department for consultation. This documentation has been reviewed and I agree with assessment and plan. Supervised by Rajendra Ramires, DO
[2021-05-30 19:13] LABS: Ketones (Beta-Hydroxybutyrate) 0.09 mmol/L (<0.27)
[2021-05-30 19:23] LABS: Troponin I < 0.012 ng/mL (0.01-0.034)
[2021-05-30 19:31] LABS: PCO2 VBG 39.2 mmHg (45-50)
[2021-05-30 19:32] LABS: HCO3 VBG 27 mmol/L (23-28); Oxygen Saturation VBG 76 % (70-75); PO2 VBG 39 mmHg (35-45); Total CO2 VBG 28 mmol/L (24-29)
--- NOTE | 2021-05-30 19:40 | DI.RAD.S_ITS ---
PROCEDURE: XR CHEST 2V INDICATIONS: SOB TECHNIQUE: 2 views of the chest were acquired. COMPARISON: [facility], CR, XR CHEST 1V, 03/26/2020, 12:42. [facility], CR, XR CHEST 1V, 05/29/2021, 10:18. FINDINGS: Surgical changes and devices: Clips projecting in the right base of neck and partially visualized cervical spine fixation hardware Lungs and pleura: Lungs are clear. No pleural effusions or pneumothorax. Mediastinum: Mediastinal contours are normal. Heart size is normal. Bones and chest wall: Redemonstrated multiple left-sided rib fractures as before. IMPRESSION: No acute disease. Dictated by: Deshawn Rios M.D. on 05/30/2021 at 20:51 Approved by: Deshawn Rios M.D. on 05/30/2021 at 20:52
[2021-05-30 19:51] LABS: Amorphous Sediment Urine 1+; Bacteria Urine Few (2-10); Culture Indicated Urine Specimen Cultured; Mucus Urine 1+ (Negative); RBC Urine 1-5/HPF (0-5/HPF); Squamous Epithelial Cell Urine 1-5 /HPF (0-5/HPF); WBC Urine 5-10/HPF (0-5/HPF)
[2021-05-30] MEDS: CIPROFLOXACIN 250 MG TABLET 500 MG PO (20:37)
[2021-05-30] MEDS: ONDANSETRON 4 MG/2 ML INJ IV (21:15)
[2021-07-24 01:53] LABS: pH VBG 7.45 (7.33-7.43)
== END 2021-05-30 22:00 | disposition home or self-care (01) ==
PROVIDERS: Emergency Provider Student in an Organized Health Care Education/Training Program; Family Provider Internal Medicine; PCP Internal Medicine
DX: N39.0 Urinary tract infection, site not specified (principal); R21 Rash and other nonspecific skin eruption; R06.02 Shortness of breath
CPT/HCPCS: 36415; 71046; 80053; 81003; 81015; 82009; 82805; 83605; 84484; 85025; 87040; 87086; 93005; 96374; 99284; J2405

== ENCOUNTER → 2021-11-14 14:06 | Outpatient (CLI) | payer OTHER, MEDICAID, SELFPAY ==
[2021-11-11 16:46] VITALS: BMI 53.1
[2021-11-14 14:39] LABS: Add Manual Diff / Slide Review NO; Basophils Absolute Auto 100 /uL (0-100); Basophils Percent Auto 0.7 % (0-2); Eosinophils Absolute Auto 100 /uL (0-450); Eosinophils Percent Auto 0.7 % (2-4); Hematocrit 39.9 % (41-53); Hemoglobin 13.2 g/dL (13.5-17.5); Lymphocytes Absolute Auto 1200 /uL (1100-4500); Lymphocytes Percent Auto 10.6 % (25-40); Mean Corpuscular Hemoglobin 27.5 PG (26-34); Mean Corpuscular Volume 83.3 fL (80-100); Monocytes Absolute Auto 600 /uL (0-900); Monocytes Percent Auto 5.6 % (3-14); Neutrophils Absolute Auto 9200 /uL (1500-7000); Neutrophils Percent Auto 82.4 % (50-75); Platelet Count 259 X10^3/uL (150-400); Red Blood Cell Count 4.79 X10^6/uL (4.5-5.9); Red Cell Distribution Width 15.8 % (11.6-14.8); White Blood Cell Count 11.2 X10^3/uL (4.5-11.0)
[2021-11-14 14:43] LABS: Hemoglobin A1C% w Est Avg Glu 6.1 % (4.0-6.0)
[2021-11-14 16:31] LABS: Alanine Aminotransferase 31 IU/L (<50); Albumin 4.4 g/dL (3.5-5.0); Albumin Globulin Ratio 1.2 (1.0-2.8); Alkaline Phosphatase 64 U/L (38-126); Aspartate Aminotransferase 31 IU/L (17-59); BUN Creatinine Ratio 17.9 (6-22); Bilirubin Total 0.4 mg/dL (0.2-1.3); Blood Urea Nitrogen 12 mg/dL (9-20); Calcium 9.6 mg/dL (8.4-10.2); Carbon Dioxide 24 mmol/L (22-32); Chloride 103 mmol/L (98-107); Cholesterol 116 mg/dL (140-199); Estimated Glomerular Filt Rate > 60.0 mL/min (>60); Globulin 3.7 g/dL (1.7-4.1); Glucose 124 mg/dL (70-100); HDL Cholesterol 40 mg/dL (40-60); HEMOLYSIS 16 (0-50); LDL Cholesterol Calculated 50 mg/dL (<100); Potassium 4.9 mmol/L (3.4-5.1); Sodium 140 mmol/L (137-145); Total Protein 8.1 g/dL (6.3-8.2); Triglycerides 129 mg/dL (35-150)
[2021-11-14 16:43] LABS: TSH w/ Reflex to FT4 < 0.02 uIU/mL (0.47-4.68)
[2021-11-14 18:12] LABS: Free T4, Direct Thyroxine 1.41 ng/dL (0.78-2.19)
== END ==
PROVIDERS: Family Provider Internal Medicine; PCP Internal Medicine; Referring Provider Internal Medicine; Visit Provider Internal Medicine
DX: E03.9 Hypothyroidism, unspecified (principal); E11.42 Type 2 diabetes mellitus with diabetic polyneuropathy; L12.0 Bullous pemphigoid
CPT/HCPCS: 36415; 80053; 80061; 83036; 84439; 84443; 85025

== ENCOUNTER → 2021-12-30 10:35 | Outpatient (CLI) | payer OTHER, MEDICAID, SELFPAY ==
[2021-11-11 16:46] VITALS: BMI 53.1
[2021-12-30 12:17] LABS: BUN Creatinine Ratio 13.3 (6-22); Blood Urea Nitrogen 10 mg/dL (9-20); Calcium 9.5 mg/dL (8.4-10.2); Carbon Dioxide 30 mmol/L (22-32); Chloride 101 mmol/L (98-107); Estimated Glomerular Filt Rate > 60 mL/min (>60); Glucose 114 mg/dL (70-100); HEMOLYSIS < 15 (0-50); Potassium 4.4 mmol/L (3.4-5.1); Sodium 139 mmol/L (137-145)
== END ==
PROVIDERS: Family Provider Internal Medicine; PCP Internal Medicine; Referring Provider Internal Medicine; Visit Provider Internal Medicine
DX: I50.32 Chronic diastolic (congestive) heart failure (principal)
CPT/HCPCS: 36415; 80048

== ENCOUNTER → 2022-03-01 15:55 | Outpatient (CLI) | payer OTHER, MEDICAID, SELFPAY ==
[2021-11-11 16:46] VITALS: BMI 53.1
[2022-03-01 16:48] LABS: Hemoglobin A1C% w Est Avg Glu 5.8 % (4.0-6.0)
[2022-03-01 17:30] LABS: TSH w/ Reflex to FT4 2.48 uIU/mL (0.47-4.68)
[2022-03-01 17:48] LABS: Vitamin B12 384 pg/mL (239-931)
== END ==
PROVIDERS: Family Provider Internal Medicine; PCP Internal Medicine; Referring Provider Internal Medicine; Visit Provider Internal Medicine
DX: E11.42 Type 2 diabetes mellitus with diabetic polyneuropathy (principal); E53.8 Deficiency of other specified B group vitamins
CPT/HCPCS: 36415; 82607; 83036; 84443

== ENCOUNTER → 2022-03-27 11:30 | Outpatient (CLI) | payer OTHER, MEDICAID, SELFPAY ==
[2021-11-11 16:46] VITALS: BMI 53.1
[2022-03-27 12:25] LABS: COVID19 -Nasal RAPID Negative (Negative)
== END ==
PROVIDERS: Family Provider Internal Medicine; PCP Internal Medicine; Referring Provider Physical Medicine & Rehabilitation; Visit Provider Physical Medicine & Rehabilitation
DX: Z20.822 Contact with and (suspected) exposure to COVID-19 (principal)
CPT/HCPCS: 87635; C9803

== ENCOUNTER 2022-03-28 09:53 | Outpatient (CLI) | payer OTHER, MEDICAID, SELFPAY ==
[2021-11-11 16:46] VITALS: BMI 53.1
--- NOTE | 2022-03-28 09:54 | DI.RAD.S_ITS ---
PROCEDURE: PAIN L INTERLAMINAR/CAUDAL INJ INDICATIONS: SPONDYLOSIS COMPARISON: [facility], XA, PAIN L INTERLAMINAR/CAUDAL INJ, 08/07/2018, 14:26. FINDINGS: Fluoroscopic spot filming was performed to verify placement of a spinal needle at the L1-L2 level, as labeled on the films. Appropriate location of the needle tip was confirmed by injection of iodinated contrast. IMPRESSION: Intraprocedural examination within normal limits. Dictated by: Osbaldo Perez M.D. on 03/28/2022 at 13:31 Approved by: Osbaldo Perez M.D. on 03/28/2022 at 13:31
[2022-03-28 10:44] VITALS: BP 151/82; PULSE 73; RESP 20; TEMP 36.4; O2SAT 99
[2022-03-28 11:28] VITALS: BP 172/80; PULSE 76; RESP 14; O2SAT 100
[2022-03-28 11:33] VITALS: BP 163/80; PULSE 73; RESP 22; O2SAT 100
[2022-03-28] MEDS: IOPAMIDOL 15 ML VIAL 3 ML INJ (11:33)
[2022-03-28] MEDS: BETAMETHASONE 30 MG/5 ML MDV 6 MG INJ (11:34)
[2022-03-28] MEDS: BUPIVACAINE 0.25% (PF) VIAL 2 ML INJ (11:34)
[2022-03-28] MEDS: DEXAMETHASONE 10 MG/ML VIAL 20 MG INJ (11:35)
[2022-03-28 11:38] VITALS: BP 165/96; PULSE 68; RESP 22; O2SAT 98
--- NOTE | 2022-03-28 11:42 | P.PCN_ITS ---
Date/Time/Diagnoses Date of procedure: 03/28/22 Time of procedure: 11:42 Pre-procedure diagnosis: 1. HNP WITH RADICULAR FEATURES, 2. MULTILEVEL CENTRAL STENOSIS, Post-procedure diagnosis: same Procedure Notes Procedure: 1. FLUOROSCOPICALLY GUIDED CONTRAST CONTROLLED INTERLAMINAR EPIDURAL STEROID INJECTION - L1/2 Indications: Bubba is referred by Dr. Taylor for treatment of Bilateral Foraminal Stenosis L>R LE symptoms. Physician: Hay Wagner Total Fluoroscopy time (seconds): 8 Total sedation minutes: 0 Complications: none Procedure in detail & Post-procedure care: FINDINGS Multilevel Central Spinal Stenosis with Nerve Root Compression DESCRIPTION OF PROCEDURE Fluoroscopically guided, contrast-controlled L1/2 translaminar epidural steroid injection. Following review of allergy and review of potential side effects and complications, including, but not necessarily limited to, infection, allergic reaction, local tissue breakdown, temporary as well as permanent nerve injury, paralysis, stroke and possible , the patient indicated that the patient understood and agreed to proceed. An informed consent document was signed by the patient, witnessed by a nurse, and placed in the patient's chart. Additionally, other treatment options including modalities, medications, and physical therapy were reviewed with the patient. After review of previous anaesthesic history and IV conscious sedation the patient was deemed safe to proceed with todays procedure with IV conscious sedation as ASA class II designation. Safety time-out was performed to confirm patient ID, procedure to be performed and site of procedure. IV sedation was deemed unnecessary and thus not administered by the RN after DO order, titrated to patient comfort during the course of the procedure while the patient remained responsive to all verbal commands In the prone position, following sterile prep and drape of the lumbar region, the L1/2 translaminar space was identified fluoroscopically. The skin was anesthetized via a 25-gauge, 1.5-inch needle with 1% lidocaine solution. At this point, a 22-gauge short bevel spinal needle was atraumatically introduced and advanced under fluoroscopic guidance into the region of the L1/2 translaminar space. Depth was confirmed on lateral view. Radiological data, including multiple fluoroscopic views of the lumbar spine, reveal a spinal needle at the L1/2 translaminar space. Lateral views then show placement of the needle in the epidural space. Subsequent views show contrast material flowing superiorly and inferiorly in the epidural space. No vascular or intrathecal uptake is observed. At this point, using loss of resistance technique with saline and air, the epidural space was entered. This was confirmed following negative aspiration with injection of approximately 1.5 cc of Isovue 200, showing excellent epidural flow without vascular or intrathecal uptake. At this point, 1cc of 1% lidocaine solution combined with 3cc or 20mg of dexamethasone and 6mg of betamethasone was injected without incident. The patient tolerated the procedure well without signs or symptoms of complications prior to transfer to the recovery area continued monitoring without incident. The patient was then transferred to the recovery area where they were observed for an appropriate period of time after the injection. The patient reported a VAS score of 6 prior to the procedure and a post- procedure VAS of 0. POST OP INSTRUCTIONS The patient was provided a Pain Log to continue to record their response to the target-specific procedure prior to follow-up visit with their referring physician. Additionally, specific post-injection care instructions and a contact number to our office were provided if concerns arise regarding possible complications associated with the procedure are suspected.
[2022-03-28 11:45] VITALS: BP 147/84; PULSE 74; RESP 18; O2SAT 98
[2022-03-28 11:51] VITALS: BP 150/85; PULSE 86; RESP 18; O2SAT 99
== END 2022-03-28 11:55 | disposition home or self-care (01) ==
LOC: RAD 09:54
PROVIDERS: Family Provider Internal Medicine; PCP Internal Medicine; Referring Provider Physical Medicine & Rehabilitation; Visit Provider Physical Medicine & Rehabilitation
DX: M51.16 Intervertebral disc disorders with radiculopathy, lumbar region (principal); M48.061 Spinal stenosis, lumbar region without neurogenic claudication
CPT/HCPCS: 62323; J0702; J1100; J3490

== ENCOUNTER → 2022-05-30 14:39 | Outpatient (ROUT) | payer OTHER, MEDICAID, SELFPAY ==
[2021-11-11 16:46] VITALS: BMI 53.1
[2022-05-30 16:24] LABS: COVID-19 CEPHEID PCR (VTM/NP) Negative (Negative)
== END ==
PROVIDERS: Family Provider Internal Medicine; PCP Internal Medicine; Visit Provider Otolaryngology
DX: J31.0 Chronic rhinitis (principal); J32.0 Chronic maxillary sinusitis; J34.9 Unspecified disorder of nose and nasal sinuses; Z20.822 Contact with and (suspected) exposure to COVID-19
CPT/HCPCS: U0003; U0005

== ENCOUNTER 2022-06-01 08:55 | Day surgery (SDC) | payer OTHER, MEDICAID, SELFPAY ==
[2021-11-11 16:46] VITALS: BMI 53.1
[2022-05-31 14:31] VITALS: BMI 38.5
[2022-06-01] VITALS (10 sets, daily range): BP systolic 123–154; BP diastolic 61–91; PULSE 76–103; RESP 10–20; TEMP 36.6–37.3; O2SAT 89–97; BMI 41.5
--- NOTE | 2022-06-01 10:58 | P.OP_ITS ---
Operative Date/Time/Diagnoses Date of procedure: 06/01/22 Time of procedure: 14:14 Pre-op diagnosis: Chronic maxillary sinusitis, ethmoid sinusitis, facial pain Post-op diagnosis: same Procedure & Clinicians Procedure: 1. Right endoscopic maxillary antrostomy with tissue removal 2. Right endoscopic anterior ethmoidectomy Same procedure as scheduled: Yes Indications: 57-year-old male with the above diagnoses incompletely managed with medical therapy presents for the above procedures. Following discussion of the material risks benefits complications and alternatives, the patient elected to proceed. Surgeon: Chano Cordova Click Yes if Unassisted: Yes Anesthesia Type: General and Local Operative Notes Findings: Complete maxillary impaction with thick debris and purulence, cx taken. Marked mucosal hypertrophy and inflammation. Uncinate bowed outward. Estimated Blood Loss (mL): 100 Procedure in detail: Following identification and confirmation of consent, the patient was brought to the operating room suite and placed in the supine position. General endotracheal anesthesia was administered. Following sterile prep and drape, under endoscopic guidance I infiltrated the posterior and anterior superior insertion of the right middle turbinate. Small pledgets with 1 1000 epinephrine were placed into the middle meatus for several minutes and used intermittently for hemostasis throughout the case. The middle turbinate was partially resected to allow improved postoperative access, with suction electrocautery of the stump. Backbiting forceps performed uncinectomy along with the microdebrider. Maxillary antrostomy was created by extending the natural os posteriorly and inferiorly and debris and hypertrophied mucosa was resected from within the maxillary sinus with curved forceps and the microdebrider. Debridement of the contents within the the sinus required 45 min manually and with irrigation, util izing curved endoscopes and instruments. A very wide antrostomy was performed.The ethmoid bulla was resected with the microdebrider. Hemostasis with epi on cotton was performed with some electrocautery. Sponge counts were correct and he was extubated in the operating room and taken to recovery room in stable condition without complication. Complications: none Post-operative Condition: stable Disposition: same day surgery Plan for aftercare: Nasal saline every hour while awake, begin irrigations t.i.d. tomorrow. Tylenol alternating with Advil for pain control. Elevate head of bed, no nose blowing, no straining for 2 weeks. Follow-up in 1 week
--- NOTE | 2022-06-01 10:58 | PM.PREOP ---
Pre-operative Note Interval Note History & Physical reviewed/Exam performed by Physician: Yes Changes to H&P: No
[2022-06-01] MEDS: LACTATED RINGERS 1,000 ML 42 ML IV (11:36)
[2022-06-01] MEDS: OXYMETAZOLINE NASAL SPRAY 15 ML 2 SPRAYS NASAL (11:36)
--- NOTE | 2022-06-01 11:53 | PM.HP.1 ---
History of Present Illness History of Present Illness Date Patient Seen: 06/01/22 Time Patient Seen: 11:53 Chief complaint: RIGHT MAXILLARY ANTROSTOMY W/TISSUE REMOVAL Narrative: 57-year-old male last seen in clinic 04/12/2022 with known right chronic maxillary and anterior ethmoid sinusitis, with failure of medical therapy, presents for right endoscopic maxillary antrostomy with tissue removal and right endoscopic anterior ethmoidectomy under general anesthesia as outpatient. He received medical clearance per Dr. Taylor 03/01, and is on a narcotic pain contract. He stopped his baby aspirin approximately 10 days ago, last sinus CT 03/2021 reviewed. No new health issues, no recent cough, cold, or fever. Patient History Medical History Acquired hypothyroidism Allergic rhinitis Anemia Arthritis Asthma BPH (benign prostatic hyperplasia) BPPV (benign paroxysmal positional vertigo) Bullous pemphigoid Chronic diastolic CHF (congestive heart failure) Chronic pain syndrome Chronic, continuous use of opioids Cobalamin deficiency Degenerative joint disease of knee Diabetic neuropathy Eczematous dermatitis Essential hypertension Grief reaction Herniated nucleus pulposus with myelopathy, thoracic Herniated nucleus pulposus, L1-2 History of migraine headaches HTN (hypertension) Major depression, recurrent Mixed hyperlipidemia Nephrolithiasis Obesity Rash Recurrent sinusitis Right rotator cuff tendonitis Sinusitis Spinal stenosis of lumbar region at multiple levels Type 2 diabetes mellitus with polyneuropathy Surgical History History of incision and drainage (04/15/21) History of nasal surgery History of spinal fusion Hx of foot surgery Hx of fusion of cervical spine Hx of hand surgery Hx of knee surgery Hx of thyroidectomy Family & Social History Tobacco & Substance use: Smoking Status Never smoker alcohol intake frequency holiday/special occasion Substance Use Type does not use Meds Home Medications and Allergies Home Medications Medication Instructions Recorded Confirmed Type multivitamin 1 cap PO QDAY ##0 10/13/11 05/31/22 History metformin 500 mg tablet 1,000 mg PO BID 05/28/18 05/31/22 History tamsulosin 0.4 mg capsule (Flomax) 0.4 mg PO DAILY 05/28/18 05/31/22 History epinephrine 0.3 mg/0.3 mL 0.3 mg IM PRN PRN Allergic Reaction 07/10/19 05/31/22 History injection, auto-injector aspirin 81 mg tablet,delayed 81 mg PO DAILY 11/14/21 06/01/22 History release mycophenolate mofetil 500 mg 500 mg PO BID #180 tabs 12/02/21 05/31/22 Rx tablet (CellCept) albuterol sulfate 90 mcg/actuation 2 puff inhalation Q4-6H PRN 12/30/21 05/31/22 History aerosol inhaler shortness of breath or wheezing cholecalciferol (vitamin D3) 1,250 2,500 mcg PO QWEEK #24 caps 12/30/21 05/31/22 Rx mcg (50,000 unit) capsule sertraline 100 mg tablet 100 mg PO DAILY 12/30/21 05/31/22 History pregabalin 300 mg capsule 300 mg PO TID #270 caps 03/02/22 05/31/22 Rx levothyroxine 200 mcg tablet 200 mcg PO DAILY #90 tabs 03/20/22 05/31/22 Rx (Euthyrox) liothyronine 50 mcg tablet 50 mcg PO DAILY #90 tabs 03/20/22 05/31/22 Rx alpha lipoic acid 300 mg capsule 300 mg PO BID #180 caps 04/05/22 05/31/22 Rx oxycodone-acetaminophen 10 mg-325 1 tab PO TID PRN pain #90 tabs 04/05/22 05/31/22 Rx mg tablet oxycodone-acetaminophen 10 mg-325 1 tab PO TID PRN pain #90 tabs 04/05/22 05/31/22 Rx mg tablet oxycodone-acetaminophen 10 mg-325 1 tab PO TID PRN pain #90 tabs 04/05/22 05/31/22 Rx mg tablet rosuvastatin 5 mg tablet 5 mg PO DAILY #90 tabs 04/19/22 05/31/22 Rx duloxetine 20 mg capsule,delayed 60 mg PO DAILY #270 caps 05/10/22 05/31/22 Rx release Allergies Allergy/AdvReac Type Severity Reaction Status Date / Time erythromycin base Allergy Severe Anaphylaxis Verified 06/01/22 10:56 heparin (porcine) Allergy Severe BREATHINBG Verified 06/01/22 10:56 [HEPARIN,PORCINE] DIFFICULTIES Penicillins Allergy Severe RASH, Verified 06/01/22 10:56 THROAT SWELLING Pork/Porcine Containing Allergy Severe RASH, Verified 06/01/22 10:56 Products THROAT SWELLING, VOMITING lisinopril AdvReac Cough Verified 06/01/22 10:56 Review of Systems Review of Systems Narrative: Negative except as listed in the HPI Exam Vital Signs (past 8 hours): - 06/01/22 10:59 Temperature 99.1 F Pulse Rate 76 Respiratory Rate 18 Blood Pressure 154/91 H Pulse Oximetry 97 Oxygen Delivery Method Room Air Oxygen Delivery Method Room Air Narrative Exam Narrative: Well-developed overweight male in no acute distress alert and oriented. Heart regular rate and rhythm without murmur, lungs clear to auscultation bilaterally Assessment & Plan Assessment & Plan narrative: Assessment: Right chronic maxillary sinusitis and chronic anterior ethmoiditis, facial pain Plan: Following discussion of the material risks benefits complications and alternatives he elected to proceed with right endoscopic maxillary antrostomy with tissue removal as well as anterior ethmoidectomy as outpatient. Time Spent With Patient Critical Care time: I spent a total of [] minutes of critical care time on this patient's care today; this time is exclusive of procedural time.
--- NOTE | 2022-06-01 12:57 | SUR.OPER ---
Supine on padded OR bed, head on pillow, arms secured on padded arm boards at <90 degrees abduction, legs uncrossed, safety belt at thigh, tape over blanket over lower legs.
[2022-06-01] MEDS: EPINEPHrine 1 MG/ML 3 MG TOP (13:16)
[2022-06-01] MEDS: LIDOCAINE 1% 20 ML INJ (13:50)
[2022-06-01] MEDS: fentaNYL 100 MCG/2 ML INJ IV ×2 (14:39→14:47)
[2022-06-01] MEDS: OXYCODONE IR 5 MG TABLET PO (14:43)
--- NOTE | 2022-06-01 14:55 | SUR.PHASEI ---
IS provided, instructions given. Patient able to reach 2000mls
--- NOTE | 2022-06-01 15:48 | SUR.PHASEII ---
Patient ambulated to wheelchair with steady gait. Tolerated fluids. Provided written/verbal discharge instructions. pt stated understanding. discharged by wheelchair to private vehicle in stable condition.
== END 2022-06-01 15:47 | disposition home or self-care (01) ==
PROVIDERS: Family Provider Internal Medicine; PCP Internal Medicine; Referring Provider Otolaryngology; Visit Provider Otolaryngology
PROC: (CPT 31231; principal; 2022-06-01 10:30)
DX: J32.0 Chronic maxillary sinusitis (principal); J32.2 Chronic ethmoidal sinusitis; J45.909 Unspecified asthma, uncomplicated; E11.9 Type 2 diabetes mellitus without complications; Z79.84 Long term (current) use of oral hypoglycemic drugs; I10 Essential (primary) hypertension; Z79.4 Long term (current) use of insulin
CPT/HCPCS: 31254; 31267; 82962; 87070; 87077; 87186; A9270; J0171; J2704; J3010

== ENCOUNTER 2022-06-08 12:00 | Outpatient (RCR) | payer MEDICARE, OTHER, MEDICAID, SELFPAY ==
[2021-11-11 16:46] VITALS: BMI 53.1
--- NOTE | 2021-11-15 12:45 | PT.OPPOC ---
Physical, Occupational & Speech Therapy At [facility] Current Diagnoses Pain in right ankle and joints of right foot (11/15/21) Stiffness of unspecified ankle, not elsewhere classified (11/15/21) Pain in right foot (11/15/21) Other abnormalities of gait and mobility (11/15/21) History of falling (11/15/21) Visit Care Team Role Provider Type Jhon Taylor MD Family Provider Physician Primary Care Provider Specialty: Internal Medicine Address: [address] [place] [address], [id number] Email: [email or web address] Terry Rosado DPM Attending Provider Non-Staff Referring Provider Specialty: Podiatry Address: [address] [place] [address], [id number] Email: Plan Of Care PT-OP-T Assessment and Plan Start: 11/15/21 15:38 Freq: Status: Active Protocol: Document 11/15/21 12:00 DCW (Rec: 11/16/21 10:29 DCW [id number]) Physical Therapy Assessment Rehab Potential Rehabilitation Potential Fair Evaluation Complexity Number of Personal Factors/Comorbidities 3 or More Number of Body Systems Impaired 4 or More Clinical Presentation at Evaluation Unstable Impairments Impairments Activity Tolerance,Balance, Edema,Functional Activities, Functional Mobility,Gait,Pain, Posture,ROM,Sensation,Soft Tissue Mobility,Strength,Tone Goals Three Impairment Pt ambulates 257' during 2 MWT using SPC with fatigue Silk Trimmer Goal (LTG) Pt to tolerate full 6 MWT without rest break while walking at least 600' using LRAD to show improved activity tolerance and decreasing falls risk. LTG Duration 02/13/22 Two Impairment Significantly limited right ankle ROM s/p surgical tendon transfer Assisted Goal (LTG) Pt to increase R ankle AROM to DF 0? and Eversion 10?in order to allow pt to help normalize gait pattern LTG Duration 02/13/22 One Impairment Pt does not have an appropriate home exercise program Short Term Goal (STG) Pt to be independent and compliant with an appropriate HEP STG Duration 12/27/21 Assessment Summary Assessment Pt presents with a multitude of functional deficits. The most pressing one at this time is the decreased mobility and edema in his right ankle following surgical intervention. Complicating his recovery is his severe neuropathy and DM II, creating a nearly complete loss of sensation from his mid-calf down, as well as slower healing. Decreased ankle ROM is also impacting his ability to walk, he at baseline walks almost entirely on the outer surface of his feet, although this has reduced some with his tendon transfer. Pt currently ambulating with a right lateral trunk flexion, bilateral knee varus, and a toe-in gait pattern. Pt should benefit from skilled therapy focusing on improving ankle ROM, strength, and mobility, as well as improving activity tolerance, gait, balance, body mechanics, reduced LE edema, and decreasing low back pain during standing/walking. Physical Therapy Plan Frequency and Duration Frequency of Treatment 2x/Week Duration of Treatment 90 days Plan of Care Start Date 11/15/21 Plan of Care End Date 02/13/22 Therapeutic Interventions Therapeutic Interventions Aquatic Therapy,Balance Training,Gait Training,Home Exercise Program,Joint Mobilizations,Lymphedema Management,Manual Therapy, Patient/Caregiver Education, Self-Care/Home Management,Soft Tissue Mobilization, Therapeutic Activities, Therapeutic Exercises Next Visit Focus/Plan Next Note Type Treatment Note Next Visit Plan Ankle mobility, gait, balance Plan of Care Dates Plan of Care Start Date 11/15/21 Plan of Care End Date 02/13/22 Electronically Signed by: Tong Card, PT 11/16/21 1030 Please Sign and Return: I have reviewed this Plan of Care and certify that the skilled therapy services above are required to meet the patient?s needs. Physician Signature Date Printed Name and Credentials Clinical Instructor Signature Printed Name and Credentials
--- NOTE | 2021-11-15 12:45 | PT.OIE ---
Current Diagnoses Pain in right ankle and joints of right foot (11/15/21) Stiffness of unspecified ankle, not elsewhere classified (11/15/21) Pain in right foot (11/15/21) Other abnormalities of gait and mobility (11/15/21) History of falling (11/15/21) Past Medical History (Last Updated 11/14/21 @ 13:47 by Jhon Taylor MD) Acquired hypothyroidism Anemia Arthritis Asthma Bullous pemphigoid Chronic diastolic CHF (congestive heart failure) Chronic pain syndrome Degenerative joint disease of knee Diabetic neuropathy Essential hypertension Grief reaction Herniated nucleus pulposus with myelopathy, thoracic Herniated nucleus pulposus, L1-2 History of migraine headaches Hx of fusion of cervical spine Hx of hand surgery Major depression, recurrent Mixed hyperlipidemia Obesity Spinal stenosis of lumbar region at multiple levels Type 2 diabetes mellitus with polyneuropathy Past Surgical History (Last Reviewed 11/14/21 @ 13:13 by Jhon Taylor MD) Hx of fusion of cervical spine Hx of hand surgery Visit Care Team Role Provider Type Jhon Taylor MD Family Provider Physician Primary Care Provider Specialty: Internal Medicine Address: [address] [place] [address], [id number] Email: [email or web address] Terry Rosado DPM Attending Provider Non-Staff Referring Provider Specialty: Podiatry Address: [address] [place] [address], [id number] Email: Physical Therapy Initial Evaluation PT-OP-A Visit Information Start: 11/15/21 15:38 Freq: Status: Active Protocol: Document 11/15/21 12:00 DCW (Rec: 11/15/21 15:41 DCW [id number]) Out-Patient Physical Therapy Visit Information Visit Information Visit Type Initial Evaluation Visit Start Time 12:00 Visit Stop Time 12:45 Total Visit Minutes 45 Visit Number 1 Number of KNAPSACK SPRAYER Visits 0 Evaluation Information Evaluation Date 11/15/21 PT-OP-B Current Condition Start: 11/15/21 15:38 Freq: Status: Active Protocol: Document 11/15/21 12:00 DCW (Rec: 11/15/21 17:59 DCW [id number]) Current Condition History of Current Condition Onset Date Long-standing history Current Complaints Gait difficulty, ankle pain, ankle stiffness, low back pain History of Current Condition Pt is a 56 year old male very well known to this clinic presenting with a wildly complicated history. Pt had a tendon transfer surgery on his right ankle late last year in an effort to decrease his tendency to walk on the outside surface of his feet. Shortly after this, pt began to get painful blisters all over his skin and eventually was admitted to the [facility] in [facility] for one month, eventually being diagnosed with the autoimmune disorder bullous pemphigus. While being treated for this, there was worry about a bone infection in his foot, possibly secondary to the tendon transfer. Multiple biopsies were taken, which unfortunately then led to a severe fracture in his foot. Pt eventually needed to have this bone fragment surgically removed. Pt returns to therapy after all of this in hopes to improve the mobility and strength of his ankle, as well as improve hiis gait and stability. Pt currently using a SPC while walking for stability. Fears his ankle has started locking up because he was unable to do much after surgery. Treatment Goals Patient/Caregiver Goals Improve ROM and stretch out his ankle, improve gait stability PT-OP-C Subjective Start: 11/15/21 15:38 Freq: Status: Active Protocol: Document 11/15/21 12:00 DCW (Rec: 11/15/21 17:59 DCW [id number]) OP-PT Subjective Patient Comments Patient Comments My surgeon said I am going to need a lot of really good therapy for this ankle, so I'm back here. Patient Questionnaires Foot & Ankle Ability Measure- ADL and Sports FAAM-ADL Score = 26.19% FAAM-ADL Impairment 60 to 79% Impaired (Score 16- 32) FAAM-Sport Score 10/31 = 10.71 Lower Extremity Functional Scale LEFS Score = 28.75 LEFS Impairment 60 to 79% Impaired (Score 17- 31) OP-PT Pain Assessment Pain Assessment Grid Paper Pain Assessment Grid Completed Yes Location Right Ankle Intensity 7 Scale Used Numeric (0 - 10) PT-OP-E Functional Tests Start: 11/15/21 15:38 Freq: Status: Active Protocol: Document 11/15/21 12:00 DCW (Rec: 11/15/21 15:55 DCW [id number]) Functional Tests 2 Minute Walk Test Distance 257' Device Used SPC Comments 2.14 PT-OP-G Mobility & Gait Start: 11/15/21 15:38 Freq: Status: Active Protocol: Document 11/15/21 12:00 DCW (Rec: 11/15/21 15:58 DCW [id number]) OP Gait Assessment Gait Gait Assistance Required: Standby Assistance Distance (Feet) 257 Assistive Devices Assistive Device Straight Cane Gait Deviations General Gait Pattern Antalgic,Decreased Stride Length,Decreased Feet Clearance,Lateral Trunk Lean, Wide Based Gait Factors Limiting Gait Function Factors Limiting Gait Function Decreased Activity Tolerance, Decreased Sensation,Decreased Strength,Limited Range of Motion,Pain,Poor Balance Comments Gait Comments Pt ambulates with lateral R trunk flexion, excessive eversion bilaterally, right worse than left, although uses orthopedic shoes to increase foot stability. Pt also displays knee varus bilaterally, ambulates with toe-in bilaterally. After 2 MWT, pt noted he could not go any further due to back pain. PT-OP-H Neuro Start: 11/15/21 15:38 Freq: Status: Active Protocol: Document 11/15/21 12:00 DCW (Rec: 11/15/21 15:41 DCW [id number]) Sensation Evaluation Gross Sensation Gross Sensation Left LE Impaired,Right LE Impaired Sensation Description Numbness Location Details Right Foot Light Touch Absent Sharp/Dull Absent Deep Pressure Absent Protective Sensation Absent Proprioception (Position) Absent Kinesthesia (Movement) Impaired Left Foot Light Touch Absent Sharp/Dull Absent Deep Pressure Absent Protective Sensation Absent Proprioception (Position) Absent Kinesthesia (Movement) Impaired PT-OP-K Range of Motion Start: 11/15/21 15:38 Freq: Status: Active Protocol: Document 11/15/21 12:00 DCW (Rec: 11/15/21 15:55 DCW [id number]) Ankle and Foot Goniometric Range of Motion Ankle and Foot Right Active Testing Position Sitting Plantarflexion 30 Inversion 10 Eversion 0 Comments Dorsiflexion /c knee flexed lacking 10? from neutral Left Active Testing Position Sitting Dorsiflexion with Knee Flexed 0 Plantarflexion 50 Inversion 40 Eversion 10 PT-OP-T Assessment and Plan Start: 11/15/21 15:38 Freq: Status: Active Protocol: Document 11/15/21 12:00 DCW (Rec: 11/16/21 10:29 DCW [id number]) Physical Therapy Assessment Rehab Potential Rehabilitation Potential Fair Evaluation Complexity Number of Personal Factors/Comorbidities 3 or More Number of Body Systems Impaired 4 or More Clinical Presentation at Evaluation Unstable Impairments Impairments Activity Tolerance,Balance, Edema,Functional Activities, Functional Mobility,Gait,Pain, Posture,ROM,Sensation,Soft Tissue Mobility,Strength,Tone Goals Three Impairment Pt ambulates 257' during 2 MWT using SPC with fatigue Bus Girl Goal (LTG) Pt to tolerate full 6 MWT without rest break while walking at least 600' using LRAD to show improved activity tolerance and decreasing falls risk. LTG Duration 02/13/22 Two Impairment Significantly limited right ankle ROM s/p surgical tendon transfer Mcfp Goal (LTG) Pt to increase R ankle AROM to DF 0? and Eversion 10?in order to allow pt to help normalize gait pattern LTG Duration 02/13/22 One Impairment Pt does not have an appropriate home exercise program Short Term Goal (STG) Pt to be independent and compliant with an appropriate HEP STG Duration 12/27/21 Assessment Summary Assessment Pt presents with a multitude of functional deficits. The most pressing one at this time is the decreased mobility and edema in his right ankle following surgical intervention. Complicating his recovery is his severe neuropathy and DM II, creating a nearly complete loss of sensation from his mid-calf down, as well as slower healing. Decreased ankle ROM is also impacting his ability to walk, he at baseline walks almost entirely on the outer surface of his feet, although this has reduced some with his tendon transfer. Pt currently ambulating with a right lateral trunk flexion, bilateral knee varus, and a toe-in gait pattern. Pt should benefit from skilled therapy focusing on improving ankle ROM, strength, and mobility, as well as improving activity tolerance, gait, balance, body mechanics, reduced LE edema, and decreasing low back pain during standing/walking. Physical Therapy Plan Frequency and Duration Frequency of Treatment 2x/Week Duration of Treatment 90 days Plan of Care Start Date 11/15/21 Plan of Care End Date 02/13/22 Therapeutic Interventions Therapeutic Interventions Aquatic Therapy,Balance Training,Gait Training,Home Exercise Program,Joint Mobilizations,Lymphedema Management,Manual Therapy, Patient/Caregiver Education, Self-Care/Home Management,Soft Tissue Mobilization, Therapeutic Activities, Therapeutic Exercises Next Visit Focus/Plan Next Note Type Treatment Note Next Visit Plan Ankle mobility, gait, balance
--- NOTE | 2021-11-18 12:55 | PT.OTN ---
Current Diagnoses Pain in right ankle and joints of right foot (11/18/21) Stiffness of unspecified ankle, not elsewhere classified (11/18/21) Pain in right foot (11/18/21) Other abnormalities of gait and mobility (11/18/21) History of falling (11/18/21) Physical Therapy Treatment Note PT-OP-A Visit Information Start: 11/15/21 15:38 Freq: Status: Active Protocol: Document 11/18/21 12:00 DCW (Rec: 11/18/21 12:55 DCW [id number]) Out-Patient Physical Therapy Visit Information Visit Information Visit Type Treatment Note Visit Start Time 12:00 Visit Stop Time 12:45 Total Visit Minutes 45 Visit Number 2 Number of WEB SPECIALIST Visits 0 Evaluation Information Evaluation Date 11/15/21 PT-OP-B Current Condition Start: 11/15/21 15:38 Freq: Status: Active Protocol: Document 11/15/21 12:00 DCW (Rec: 11/15/21 17:59 DCW [id number]) Current Condition History of Current Condition Onset Date Long-standing history Current Complaints Gait difficulty, ankle pain, ankle stiffness, low back pain History of Current Condition Pt is a 56 year old male very well known to this clinic presenting with a wildly complicated history. Pt had a tendon transfer surgery on his right ankle late last year in an effort to decrease his tendency to walk on the outside surface of his feet. Shortly after this, pt began to get painful blisters all over his skin and eventually was admitted to the [facility] in [facility] for one month, eventually being diagnosed with the autoimmune disorder bullous pemphigus. While being treated for this, there was worry about a bone infection in his foot, possibly secondary to the tendon transfer. Multiple biopsies were taken, which unfortunately then led to a severe fracture in his foot. Pt eventuually needed to have this bone fragment surgically removed. Pt returns to therapy after all of this in hopes to improve the mobility and strength of his ankle, as well as improve hiis gait and stability. Pt currently using a SPC while walking for stability. Fears his ankle has started locking up because he was unable to do much after surgery. Treatment Goals Patient/Caregiver Goals Improve ROM and stretch out his ankle, improve gait stability PT-OP-C Subjective Start: 11/15/21 15:38 Freq: Status: Active Protocol: Document 11/18/21 12:00 DCW (Rec: 11/18/21 12:54 DCW [id number]) OP-PT Subjective Patient Comments Patient Comments Pt comes in today trying to walk without a cane, notes I don't think these shoes are the answer. PT-OP-E Functional Tests Start: 11/15/21 15:38 Freq: Status: Active Protocol: Document 11/15/21 12:00 DCW (Rec: 11/15/21 15:55 DCW [id number]) Functional Tests 2 Minute Walk Test Distance 257' Device Used SPC Comments 2.14 PT-OP-G Mobility & Gait Start: 11/15/21 15:38 Freq: Status: Active Protocol: Document 11/15/21 12:00 DCW (Rec: 11/15/21 15:58 DCW [id number]) OP Gait Assessment Gait Gait Assistance Required: Standby Assistance Distance (Feet) 257 Assistive Devices Assistive Device Straight Cane Gait Deviations General Gait Pattern Antalgic,Decreased Stride Length,Decreased Feet Clearance,Lateral Trunk Lean, Wide Based Gait Factors Limiting Gait Function Factors Limiting Gait Function Decreased Activity Tolerance, Decreased Sensation,Decreased Strength,Limited Range of Motion,Pain,Poor Balance Comments Gait Comments Pt ambulates with lateral R trunk flexion, excessive eversion bilaterally, right worse than left, although uses orthopedic shoes to increase foot stability. Pt also displays knee varus bilaterally, ambulates with toe-in bilaterally. After 2 MWT, pt noted he could not go any further due to back pain. PT-OP-H Neuro Start: 11/15/21 15:38 Freq: Status: Active Protocol: Document 11/15/21 12:00 DCW (Rec: 11/15/21 15:41 DCW [id number]) Sensation Evaluation Gross Sensation Gross Sensation Left LE Impaired,Right LE Impaired Sensation Description Numbness Location Details Right Foot Light Touch Absent Sharp/Dull Absent Deep Pressure Absent Protective Sensation Absent Proprioception (Position) Absent Kinesthesia (Movement) Impaired Left Foot Light Touch Absent Sharp/Dull Absent Deep Pressure Absent Protective Sensation Absent Proprioception (Position) Absent Kinesthesia (Movement) Impaired PT-OP-K Range of Motion Start: 11/15/21 15:38 Freq: Status: Active Protocol: Document 11/15/21 12:00 DCW (Rec: 11/15/21 15:55 DCW [id number]) Ankle and Foot Goniometric Range of Motion Ankle and Foot Right Active Testing Position Sitting Plantarflexion 30 Inversion 10 Eversion 0 Comments Dorsiflexion /c knee flexed lacking 10? from neutral Left Active Testing Position Sitting Dorsiflexion with Knee Flexed 0 Plantarflexion 50 Inversion 40 Eversion 10 PT-OP-Q Treatments Start: 11/15/21 15:38 Freq: Status: Active Protocol: Document 11/18/21 12:00 DCW (Rec: 11/18/21 12:54 DCW [id number]) Therapeutic Exercises Sitting Exercises 2 Sitting Exercise Name Ankle DF/Inv/Ev Side right Resistance Lv 2 Equipment Used T-band 1 Sitting Exercise Name BAPS Side right Resistance Lv 2 Manual Therapy Treatment Joint Mobilizations 1 Joint Talocrual Direction A->P Grade III Body Position Sitting Other Other Manual Treatments Therapist-driven PROM PT-OP-T Assessment and Plan Start: 11/15/21 15:38 Freq: Status: Active Protocol: Document 11/18/21 12:00 DCW (Rec: 11/18/21 12:54 DC [id number]) Physical Therapy Assessment Impairments Impairments Activity Tolerance,Balance, Edema,Functional Activities, Functional Mobility,Gait,Pain, Posture,ROM,Sensation,Soft Tissue Mobility,Strength,Tone Goals Three Impairment Pt ambulates 257' during 2 MWT using SPC with fatigue Manager Of Financial Planning Goal (LTG) Pt to tolerate full 6 MWT without rest break while walking at least 600' using LRAD to show improved activity tolerance and decreasing falls risk. LTG Duration 02/13/22 Two Impairment Significantly limited right ankle ROM s/p surgical tendon transfer Manager Of Financial Planning Goal (LTG) Pt to increase R ankle AROM to DF 0? and Eversion 10?in order to allow pt to help normalize gait pattern LTG Duration 02/13/22 One Impairment Pt does not have an appropriate home exercise program Short Term Goal (STG) Pt to be independent and compliant with an appropriate HEP STG Duration 12/27/21 Assessment Summary Assessment Pt tolerated treatment fairly well today, did complain of some popping in right ankle with most active ROM, stopped short of complaining of pain, but noted some discomfort. Pt slightly discouraged due to his ankle seemingly returning to a more adducted position after looking better for ~1 month following his initial surgery. Physical Therapy Plan Frequency and Duration Frequency of Treatment 2x/Week Duration of Treatment 90 days Plan of Care Start Date 11/15/21 Plan of Care End Date 02/13/22 Therapeutic Interventions Therapeutic Interventions Aquatic Therapy,Balance Training,Gait Training,Home Exercise Program,Joint Mobilizations,Lymphedema Management,Manual Therapy, Patient/Caregiver Education, Self-Care/Home Management,Soft Tissue Mobilization, Therapeutic Activities, Therapeutic Exercises Next Visit Focus/Plan Next Note Type Treatment Note Next Visit Plan Ankle mobility, gait, balance
--- NOTE | 2021-11-22 12:36 | PT.OTN ---
Current Diagnoses Pain in right ankle and joints of right foot (11/22/21) Stiffness of unspecified ankle, not elsewhere classified (11/22/21) Pain in right foot (11/22/21) Other abnormalities of gait and mobility (11/22/21) History of falling (11/22/21) Physical Therapy Treatment Note PT-OP-A Visit Information Start: 11/15/21 15:38 Freq: Status: Active Protocol: Document 11/22/21 11:50 DCW (Rec: 11/22/21 12:36 DCW [id number]) Out-Patient Physical Therapy Visit Information Visit Information Visit Type Treatment Note Visit Start Time 11:50 Visit Stop Time 12:35 Total Visit Minutes 45 Visit Number 3 Number of SHREDDED FILLER MACHINE WRAPPER LAYER Visits 0 Evaluation Information Evaluation Date 11/15/21 PT-OP-B Current Condition Start: 11/15/21 15:38 Freq: Status: Active Protocol: Document 11/15/21 12:00 DCW (Rec: 11/15/21 17:59 DCW [id number]) Current Condition History of Current Condition Onset Date Long-standing history Current Complaints Gait difficulty, ankle pain, ankle stiffness, low back pain History of Current Condition Pt is a 56 year old male very well known to this clinic presenting with a wildly complicated history. Pt had a tendon transfer surgery on his right ankle late last year in an effort to decrease his tendency to walk on the outside surface of his feet. Shortly after this, pt began to get painful blisters all over his skin and eventually was admitted to the burn [facility] in [facility] for one month, eventually being diagnosed with the autoimmune disorder bullous pemphigus. While being treated for this, there was worry about a bone infection in his foot, possibly secondary to the tendon transfer. Multiple biopsies were taken, which unfortunately then led to a severe fracture in his foot. Pt eventuually needed to have this bone fragment surgically removed. Pt returns to therapy after all of this in hopes to improve the mobility and strength of his ankle, as well as improve hiis gait and stability. Pt currently using a SPC while walking for stability. Fears his ankle has started locking up because he was unable to do much after surgery. Treatment Goals Patient/Caregiver Goals Improve ROM and stretch out his ankle, improve gait stability PT-OP-C Subjective Start: 11/15/21 15:38 Freq: Status: Active Protocol: Document 11/22/21 11:50 DCW (Rec: 11/22/21 12:36 DCW [id number]) OP-PT Subjective Patient Comments Patient Comments I'm trying, but it hurts. PT-OP-E Functional Tests Start: 11/15/21 15:38 Freq: Status: Active Protocol: Document 11/15/21 12:00 DCW (Rec: 11/15/21 15:55 DCW [id number]) Functional Tests 2 Minute Walk Test Distance 257' Device Used SPC Comments 2.14 PT-OP-G Mobility & Gait Start: 11/15/21 15:38 Freq: Status: Active Protocol: Document 11/15/21 12:00 DCW (Rec: 11/15/21 15:58 DCW [id number]) OP Gait Assessment Gait Gait Assistance Required: Standby Assistance Distance (Feet) 257 Assistive Devices Assistive Device Straight Cane Gait Deviations General Gait Pattern Antalgic,Decreased Stride Length,Decreased Feet Clearance,Lateral Trunk Lean, Wide Based Gait Factors Limiting Gait Function Factors Limiting Gait Function Decreased Activity Tolerance, Decreased Sensation,Decreased Strength,Limited Range of Motion,Pain,Poor Balance Comments Gait Comments Pt ambulates with lateral R trunk flexion, excessive eversion bilaterally, right worse than left, although uses orthopedic shoes to increase foot stability. Pt also displays knee varus bilaterally, ambulates with toe-in bilaterally. After 2 MWT, pt noted he could not go any further due to back pain. PT-OP-H Neuro Start: 11/15/21 15:38 Freq: Status: Active Protocol: Document 11/15/21 12:00 DCW (Rec: 11/15/21 15:41 DCW [id number]) Sensation Evaluation Gross Sensation Gross Sensation Left LE Impaired,Right LE Impaired Sensation Description Numbness Location Details Right Foot Light Touch Absent Sharp/Dull Absent Deep Pressure Absent Protective Sensation Absent Proprioception (Position) Absent Kinesthesia (Movement) Impaired Left Foot Light Touch Absent Sharp/Dull Absent Deep Pressure Absent Protective Sensation Absent Proprioception (Position) Absent Kinesthesia (Movement) Impaired PT-OP-K Range of Motion Start: 11/15/21 15:38 Freq: Status: Active Protocol: Document 11/15/21 12:00 DCW (Rec: 11/15/21 15:55 DCW [id number]) Ankle and Foot Goniometric Range of Motion Ankle and Foot Right Active Testing Position Sitting Plantarflexion 30 Inversion 10 Eversion 0 Comments Dorsiflexion /c knee flexed lacking 10? from neutral Left Active Testing Position Sitting Dorsiflexion with Knee Flexed 0 Plantarflexion 50 Inversion 40 Eversion 10 PT-OP-Q Treatments Start: 11/15/21 15:38 Freq: Status: Active Protocol: Document 11/22/21 11:50 DCW (Rec: 11/22/21 12:36 DCW [id number]) Therapeutic Exercises Sitting Exercises 1 Sitting Exercise Name BAPS Side right Resistance Lv 2 Comments DF/PF, Inv/Ev, CW/CCW Manual Therapy Treatment Joint Mobilizations 1 Joint Talocrual Direction A->P Grade III Body Position Sitting Other Other Manual Treatments Therapist-driven PROM PT-OP-T Assessment and Plan Start: 11/15/21 15:38 Freq: Status: Active Protocol: Document 11/22/21 11:50 DCW (Rec: 11/22/21 12:36 DCW [id number]) Physical Therapy Assessment Impairments Impairments Activity Tolerance,Balance, Edema,Functional Activities, Functional Mobility,Gait,Pain, Posture,ROM,Sensation,Soft Tissue Mobility,Strength,Tone Goals Three Impairment Pt ambulates 257' during 2 MWT using SPC with fatigue Hangar Attendant Goal (LTG) Pt to tolerate full 6 MWT without rest break while walking at least 600' using LRAD to show improved activity tolerance and decreasing falls risk. LTG Duration 02/13/22 Two Impairment Significantly limited right ankle ROM s/p surgical tendon transfer Hangar Attendant Goal (LTG) Pt to increase R ankle AROM to DF 0? and Eversion 10?in order to allow pt to help normalize gait pattern LTG Duration 02/13/22 One Impairment Pt does not have an appropriate home exercise program Short Term Goal (STG) Pt to be independent and compliant with an appropriate HEP STG Duration 12/27/21 Assessment Summary Assessment Mild improvements with AROM already, pt able get seated DF to neutral now, Ev improving to ~5?. Edema going down, displaying some skin wrinkling at joint line, improved appearance of medial malleolus . Physical Therapy Plan Frequency and Duration Frequency of Treatment 2x/Week Duration of Treatment 90 days Plan of Care Start Date 11/15/21 Plan of Care End Date 02/13/22 Therapeutic Interventions Therapeutic Interventions Aquatic Therapy,Balance Training,Gait Training,Home Exercise Program,Joint Mobilizations,Lymphedema Management,Manual Therapy, Patient/Caregiver Education, Self-Care/Home Management,Soft Tissue Mobilization, Therapeutic Activities, Therapeutic Exercises Next Visit Focus/Plan Next Note Type Treatment Note Next Visit Plan Ankle mobility, gait, balance
--- NOTE | 2021-11-25 12:44 | PT.OTN ---
Current Diagnoses Pain in right ankle and joints of right foot (11/25/21) Stiffness of unspecified ankle, not elsewhere classified (11/25/21) Pain in right foot (11/25/21) Other abnormalities of gait and mobility (11/25/21) History of falling (11/25/21) Physical Therapy Treatment Note PT-OP-A Visit Information Start: 11/15/21 15:38 Freq: Status: Active Protocol: Document 11/25/21 11:55 DCW (Rec: 11/25/21 12:44 DCW [id number]) Out-Patient Physical Therapy Visit Information Visit Information Visit Type Treatment Note Visit Start Time 11:55 Visit Stop Time 12:40 Total Visit Minutes 45 Visit Number 4 Number of FIBER ANALYST Visits 0 Evaluation Information Evaluation Date 11/15/21 PT-OP-B Current Condition Start: 11/15/21 15:38 Freq: Status: Active Protocol: Document 11/15/21 12:00 DCW (Rec: 11/15/21 17:59 DCW [id number]) Current Condition History of Current Condition Onset Date Long-standing history Current Complaints Gait difficulty, ankle pain, ankle stiffness, low back pain History of Current Condition Pt is a 56 year old male very well known to this clinic presenting with a wildly complicated history. Pt had a tendon transfer surgery on his right ankle late last year in an effort to decrease his tendency to walk on the outside surface of his feet. Shortly after this, pt began to get painful blisters all over his skin and eventually was admitted to the burn [facility] in [facility] for one month, eventually being diagnosed with the autoimmune disorder bullous pemphigus. While being treated for this, there was worry about a bone infection in his foot, possibly secondary to the tendon transfer. Multiple biopsies were taken, which unfortunately then led to a severe fracture in his foot. Pt eventuually needed to have this bone fragment surgically removed. Pt returns to therapy after all of this in hopes to improve the mobility and strength of his ankle, as well as improve hiis gait and stability. Pt currently using a SPC while walking for stability. Fears his ankle has started locking up because he was unable to do much after surgery. Treatment Goals Patient/Caregiver Goals Improve ROM and stretch out his ankle, improve gait stability PT-OP-C Subjective Start: 11/15/21 15:38 Freq: Status: Active Protocol: Document 11/25/21 11:55 DCW (Rec: 11/25/21 12:44 DCW [id number]) OP-PT Subjective Patient Comments Patient Comments I'm making progress. Does note Dr Rosado was thrilled with the current ROM, feels like he is putting less weight on the outside. PT-OP-E Functional Tests Start: 11/15/21 15:38 Freq: Status: Active Protocol: Document 11/15/21 12:00 DCW (Rec: 11/15/21 15:55 DCW [id number]) Functional Tests 2 Minute Walk Test Distance 257' Device Used SPC Comments 2.14 PT-OP-G Mobility & Gait Start: 11/15/21 15:38 Freq: Status: Active Protocol: Document 11/15/21 12:00 DCW (Rec: 11/15/21 15:58 DCW [id number]) OP Gait Assessment Gait Gait Assistance Required: Standby Assistance Distance (Feet) 257 Assistive Devices Assistive Device Straight Cane Gait Deviations General Gait Pattern Antalgic,Decreased Stride Length,Decreased Feet Clearance,Lateral Trunk Lean, Wide Based Gait Factors Limiting Gait Function Factors Limiting Gait Function Decreased Activity Tolerance, Decreased Sensation,Decreased Strength,Limited Range of Motion,Pain,Poor Balance Comments Gait Comments Pt ambulates with lateral R trunk flexion, excessive eversion bilaterally, right worse than left, although uses orthopedic shoes to increase foot stability. Pt also displays knee varus bilaterally, ambulates with toe-in bilaterally. After 2 MWT, pt noted he could not go any further due to back pain. PT-OP-H Neuro Start: 11/15/21 15:38 Freq: Status: Active Protocol: Document 11/15/21 12:00 DCW (Rec: 11/15/21 15:41 DCW [id number]) Sensation Evaluation Gross Sensation Gross Sensation Left LE Impaired,Right LE Impaired Sensation Description Numbness Location Details Right Foot Light Touch Absent Sharp/Dull Absent Deep Pressure Absent Protective Sensation Absent Proprioception (Position) Absent Kinesthesia (Movement) Impaired Left Foot Light Touch Absent Sharp/Dull Absent Deep Pressure Absent Protective Sensation Absent Proprioception (Position) Absent Kinesthesia (Movement) Impaired PT-OP-K Range of Motion Start: 11/15/21 15:38 Freq: Status: Active Protocol: Document 11/15/21 12:00 DCW (Rec: 11/15/21 15:55 DCW [id number]) Ankle and Foot Goniometric Range of Motion Ankle and Foot Right Active Testing Position Sitting Plantarflexion 30 Inversion 10 Eversion 0 Comments Dorsiflexion /c knee flexed lacking 10? from neutral Left Active Testing Position Sitting Dorsiflexion with Knee Flexed 0 Plantarflexion 50 Inversion 40 Eversion 10 PT-OP-Q Treatments Start: 11/15/21 15:38 Freq: Status: Active Protocol: Document 11/25/21 11:55 DCW (Rec: 11/25/21 12:44 DCW [id number]) Therapeutic Exercises Sitting Exercises 1 Sitting Exercise Name BAPS Side right Resistance Lv 2 Comments DF/PF, Inv/Ev, CW/CCW Manual Therapy Treatment Joint Mobilizations 1 Joint Talocrual Direction A->P Grade III Body Position Sitting Other Other Manual Treatments Therapist-driven PROM PT-OP-T Assessment and Plan Start: 11/15/21 15:38 Freq: Status: Active Protocol: Document 11/25/21 11:55 DCW (Rec: 11/25/21 12:44 DCW [id number]) Physical Therapy Assessment Impairments Impairments Activity Tolerance,Balance, Edema,Functional Activities, Functional Mobility,Gait,Pain, Posture,ROM,Sensation,Soft Tissue Mobility,Strength,Tone Goals Three Impairment Pt ambulates 257' during 2 MWT using SPC with fatigue Emergency Room Technician Goal (LTG) Pt to tolerate full 6 MWT without rest break while walking at least 600' using LRAD to show improved activity tolerance and decreasing falls risk. LTG Duration 02/13/22 Two Impairment Significantly limited right ankle ROM s/p surgical tendon transfer Mcfp Goal (LTG) Pt to increase R ankle AROM to DF 0? and Eversion 10?in order to allow pt to help normalize gait pattern LTG Duration 02/13/22 One Impairment Pt does not have an appropriate home exercise program Short Term Goal (STG) Pt to be independent and compliant with an appropriate HEP STG Duration 12/27/21 Assessment Summary Assessment Continues to make good progress two weeks after initial evaluation, ROM improving, edema decreasing, gait slightly better with slight reduction in walking on outside edge of foot. Physical Therapy Plan Frequency and Duration Frequency of Treatment 2x/Week Duration of Treatment 90 days Plan of Care Start Date 11/15/21 Plan of Care End Date 02/13/22 Therapeutic Interventions Therapeutic Interventions Aquatic Therapy,Balance Training,Gait Training,Home Exercise Program,Joint Mobilizations,Lymphedema Management,Manual Therapy, Patient/Caregiver Education, Self-Care/Home Management,Soft Tissue Mobilization, Therapeutic Activities, Therapeutic Exercises Next Visit Focus/Plan Next Note Type Treatment Note Next Visit Plan Ankle mobility, gait, balance
--- NOTE | 2021-12-05 12:44 | PT.OTN ---
Current Diagnoses Pain in right ankle and joints of right foot (12/05/21) Stiffness of unspecified ankle, not elsewhere classified (12/05/21) Pain in right foot (12/05/21) Other abnormalities of gait and mobility (12/05/21) History of falling (12/05/21) Physical Therapy Treatment Note PT-OP-A Visit Information Start: 11/15/21 15:38 Freq: Status: Active Protocol: Document 12/05/21 12:03 DCW (Rec: 12/05/21 12:44 DCW [id number]) Out-Patient Physical Therapy Visit Information Visit Information Visit Type Treatment Note Visit Start Time 12:03 Visit Stop Time 12:45 Total Visit Minutes 42 Visit Number 5 Number of FORESTRY AND WILDLIFE MANAGER Visits 0 Evaluation Information Evaluation Date 11/15/21 PT-OP-B Current Condition Start: 11/15/21 15:38 Freq: Status: Active Protocol: Document 11/15/21 12:00 DCW (Rec: 11/15/21 17:59 DCW [id number]) Current Condition History of Current Condition Onset Date Long-standing history Current Complaints Gait difficulty, ankle pain, ankle stiffness, low back pain History of Current Condition Pt is a 56 year old male very well known to this clinic presenting with a wildly complicated history. Pt had a tendon transfer surgery on his right ankle late last year in an effort to decrease his tendency to walk on the outside surface of his feet. Shortly after this, pt began to get painful blisters all over his skin and eventually was admitted to the burn [facility] in [facility] for one month, eventually being diagnosed with the autoimmune disorder bullous pemphigus. While being treated for this, there was worry about a bone infection in his foot, possibly secondary to the tendon transfer. Multiple biopsies were taken, which unfortunately then led to a severe fracture in his foot. Pt eventuually needed to have this bone fragment surgically removed. Pt returns to therapy after all of this in hopes to improve the mobility and strength of his ankle, as well as improve hiis gait and stability. Pt currently using a SPC while walking for stability. Fears his ankle has started locking up because he was unable to do much after surgery. Treatment Goals Patient/Caregiver Goals Improve ROM and stretch out his ankle, improve gait stability PT-OP-C Subjective Start: 11/15/21 15:38 Freq: Status: Active Protocol: Document 12/05/21 12:03 DCW (Rec: 12/05/21 12:44 DCW [id number]) OP-PT Subjective Patient Comments Patient Comments Pt feels like his ankle has declined since his last appointment, was not able to make it in to PT last week, spent a lot of time standing on it after having car problems. PT-OP-E Functional Tests Start: 11/15/21 15:38 Freq: Status: Active Protocol: Document 11/15/21 12:00 DCW (Rec: 11/15/21 15:55 DCW [id number]) Functional Tests 2 Minute Walk Test Distance 257' Device Used SPC Comments 2.14 PT-OP-G Mobility & Gait Start: 11/15/21 15:38 Freq: Status: Active Protocol: Document 11/15/21 12:00 DCW (Rec: 11/15/21 15:58 DCW [id number]) OP Gait Assessment Gait Gait Assistance Required: Standby Assistance Distance (Feet) 257 Assistive Devices Assistive Device Straight Cane Gait Deviations General Gait Pattern Antalgic,Decreased Stride Length,Decreased Feet Clearance,Lateral Trunk Lean, Wide Based Gait Factors Limiting Gait Function Factors Limiting Gait Function Decreased Activity Tolerance, Decreased Sensation,Decreased Strength,Limited Range of Motion,Pain,Poor Balance Comments Gait Comments Pt ambulates with lateral R trunk flexion, excessive eversion bilaterally, right worse than left, although uses orthopedic shoes to increase foot stability. Pt also displays knee varus bilaterally, ambulates with toe-in bilaterally. After 2 MWT, pt noted he could not go any further due to back pain. PT-OP-H Neuro Start: 11/15/21 15:38 Freq: Status: Active Protocol: Document 11/15/21 12:00 DCW (Rec: 11/15/21 15:41 DCW [id number]) Sensation Evaluation Gross Sensation Gross Sensation Left LE Impaired,Right LE Impaired Sensation Description Numbness Location Details Right Foot Light Touch Absent Sharp/Dull Absent Deep Pressure Absent Protective Sensation Absent Proprioception (Position) Absent Kinesthesia (Movement) Impaired Left Foot Light Touch Absent Sharp/Dull Absent Deep Pressure Absent Protective Sensation Absent Proprioception (Position) Absent Kinesthesia (Movement) Impaired PT-OP-K Range of Motion Start: 11/15/21 15:38 Freq: Status: Active Protocol: Document 11/15/21 12:00 DCW (Rec: 11/15/21 15:55 DCW [id number]) Ankle and Foot Goniometric Range of Motion Ankle and Foot Right Active Testing Position Sitting Plantarflexion 30 Inversion 10 Eversion 0 Comments Dorsiflexion /c knee flexed lacking 10? from neutral Left Active Testing Position Sitting Dorsiflexion with Knee Flexed 0 Plantarflexion 50 Inversion 40 Eversion 10 PT-OP-Q Treatments Start: 11/15/21 15:38 Freq: Status: Active Protocol: Document 12/05/21 12:03 DCW (Rec: 12/05/21 12:44 DCW [id number]) Therapeutic Exercises Sitting Exercises 1 Sitting Exercise Name BAPS Side right Resistance Lv 2 Comments DF/PF, Inv/Ev, CW/CCW Manual Therapy Treatment Joint Mobilizations 1 Joint Talocrual Direction A->P Grade III Body Position Sitting Other Other Manual Treatments Therapist-driven PROM PT-OP-T Assessment and Plan Start: 11/15/21 15:38 Freq: Status: Active Protocol: Document 12/05/21 12:03 DCW (Rec: 12/05/21 12:44 [facility] [id number]) Physical Therapy Assessment Impairments Impairments Activity Tolerance,Balance, Edema,Functional Activities, Functional Mobility,Gait,Pain, Posture,ROM,Sensation,Soft Tissue Mobility,Strength,Tone Goals Three Impairment Pt ambulates 257' during 2 MWT using SPC with fatigue Warning Analyst Goal (LTG) Pt to tolerate full 6 MWT without rest break while walking at least 600' using LRAD to show improved activity tolerance and decreasing falls risk. LTG Duration 02/13/22 Two Impairment Significantly limited right ankle ROM s/p surgical tendon transfer Usp Goal (LTG) Pt to increase R ankle AROM to DF 0? and Eversion 10?in order to allow pt to help normalize gait pattern LTG Duration 02/13/22 One Impairment Pt does not have an appropriate home exercise program Short Term Goal (STG) Pt to be independent and compliant with an appropriate HEP STG Duration 12/27/21 Assessment Summary Assessment Struggling more today, increased edema and stiffness, continued to focus more on STM Physical Therapy Plan Frequency and Duration Frequency of Treatment 2x/Week Duration of Treatment 90 days Plan of Care Start Date 11/15/21 Plan of Care End Date 02/13/22 Therapeutic Interventions Therapeutic Interventions Aquatic Therapy,Balance Training,Gait Training,Home Exercise Program,Joint Mobilizations,Lymphedema Management,Manual Therapy, Patient/Caregiver Education, Self-Care/Home Management,Soft Tissue Mobilization, Therapeutic Activities, Therapeutic Exercises Next Visit Focus/Plan Next Note Type Treatment Note Next Visit Plan Ankle mobility, gait, balance
--- NOTE | 2021-12-05 12:44 | PT.OTN ---
Current Diagnoses Pain in right ankle and joints of right foot (12/05/21) Stiffness of unspecified ankle, not elsewhere classified (12/05/21) Pain in right foot (12/05/21) Other abnormalities of gait and mobility (12/05/21) History of falling (12/05/21) Physical Therapy Treatment Note PT-OP-A Visit Information Start: 11/15/21 15:38 Freq: Status: Active Protocol: Document 12/05/21 12:03 DCW (Rec: 12/05/21 12:44 DCW [id number]) Out-Patient Physical Therapy Visit Information Visit Information Visit Type Treatment Note Visit Start Time 12:03 Visit Stop Time 12:45 Total Visit Minutes 42 Visit Number 5 Number of LACE BURN OUT TENDER Visits 0 Evaluation Information Evaluation Date 11/15/21 PT-OP-B Current Condition Start: 11/15/21 15:38 Freq: Status: Active Protocol: Document 11/15/21 12:00 DCW (Rec: 11/15/21 17:59 DCW [id number]) Current Condition History of Current Condition Onset Date Long-standing history Current Complaints Gait difficulty, ankle pain, ankle stiffness, low back pain History of Current Condition Pt is a 56 year old male very well known to this clinic presenting with a wildly complicated history. Pt had a tendon transfer surgery on his right ankle late last year in an effort to decrease his tendency to walk on the outside surface of his feet. Shortly after this, pt began to get painful blisters all over his skin and eventually was admitted to the burn sol[facility] in [facility] for one month, eventually being diagnosed with the autoimmune disorder bullous pemphigus. While being treated for this, there was worry about a bone infection in his foot, possibly secondary to the tendon transfer. Multiple biopsies were taken, which unfortunately then led to a severe fracture in his foot. Pt eventuually needed to have this bone fragment surgically removed. Pt returns to therapy after all of this in hopes to improve the mobility and strength of his ankle, as well as improve hiis gait and stability. Pt currently using a SPC while walking for stability. Fears his ankle has started locking up because he was unable to do much after surgery. Treatment Goals Patient/Caregiver Goals Improve ROM and stretch out his ankle, improve gait stability PT-OP-C Subjective Start: 11/15/21 15:38 Freq: Status: Active Protocol: Document 12/05/21 12:03 DCW (Rec: 12/05/21 12:44 DCW [id number]) OP-PT Subjective Patient Comments Patient Comments Pt feels like his ankle has declined since his last appointment, was not able to make it in to PT last week, spent a lot of time standing on it after having car problems. PT-OP-E Functional Tests Start: 11/15/21 15:38 Freq: Status: Active Protocol: Document 11/15/21 12:00 DCW (Rec: 11/15/21 15:55 DCW [id number]) Functional Tests 2 Minute Walk Test Distance 257' Device Used SPC Comments 2.14 PT-OP-G Mobility & Gait Start: 11/15/21 15:38 Freq: Status: Active Protocol: Document 11/15/21 12:00 DCW (Rec: 11/15/21 15:58 DCW [id number]) OP Gait Assessment Gait Gait Assistance Required: Standby Assistance Distance (Feet) 257 Assistive Devices Assistive Device Straight Cane Gait Deviations General Gait Pattern Antalgic,Decreased Stride Length,Decreased Feet Clearance,Lateral Trunk Lean, Wide Based Gait Factors Limiting Gait Function Factors Limiting Gait Function Decreased Activity Tolerance, Decreased Sensation,Decreased Strength,Limited Range of Motion,Pain,Poor Balance Comments Gait Comments Pt ambulates with lateral R trunk flexion, excessive eversion bilaterally, right worse than left, although uses orthopedic shoes to increase foot stability. Pt also displays knee varus bilaterally, ambulates with toe-in bilaterally. After 2 MWT, pt noted he could not go any further due to back pain. PT-OP-H Neuro Start: 11/15/21 15:38 Freq: Status: Active Protocol: Document 11/15/21 12:00 DCW (Rec: 11/15/21 15:41 DCW [id number]) Sensation Evaluation Gross Sensation Gross Sensation Left LE Impaired,Right LE Impaired Sensation Description Numbness Location Details Right Foot Light Touch Absent Sharp/Dull Absent Deep Pressure Absent Protective Sensation Absent Proprioception (Position) Absent Kinesthesia (Movement) Impaired Left Foot Light Touch Absent Sharp/Dull Absent Deep Pressure Absent Protective Sensation Absent Proprioception (Position) Absent Kinesthesia (Movement) Impaired PT-OP-K Range of Motion Start: 11/15/21 15:38 Freq: Status: Active Protocol: Document 11/15/21 12:00 DCW (Rec: 11/15/21 15:55 DCW [id number]) Ankle and Foot Goniometric Range of Motion Ankle and Foot Right Active Testing Position Sitting Plantarflexion 30 Inversion 10 Eversion 0 Comments Dorsiflexion /c knee flexed lacking 10? from neutral Left Active Testing Position Sitting Dorsiflexion with Knee Flexed 0 Plantarflexion 50 Inversion 40 Eversion 10 PT-OP-Q Treatments Start: 11/15/21 15:38 Freq: Status: Active Protocol: Document 12/05/21 12:03 DCW (Rec: 12/05/21 12:44 DCW [id number]) Therapeutic Exercises Sitting Exercises 1 Sitting Exercise Name BAPS Side right Resistance Lv 2 Comments DF/PF, Inv/Ev, CW/CCW Manual Therapy Treatment Joint Mobilizations 1 Joint Talocrual Direction A->P Grade III Body Position Sitting Other Other Manual Treatments Therapist-driven PROM PT-OP-T Assessment and Plan Start: 11/15/21 15:38 Freq: Status: Active Protocol: Document 12/05/21 12:03 DCW (Rec: 12/05/21 12:44 [facility] [id number]) Physical Therapy Assessment Impairments Impairments Activity Tolerance,Balance, Edema,Functional Activities, Functional Mobility,Gait,Pain, Posture,ROM,Sensation,Soft Tissue Mobility,Strength,Tone Goals Three Impairment Pt ambulates 257' during 2 MWT using SPC with fatigue Lead Pourer Goal (LTG) Pt to tolerate full 6 MWT without rest break while walking at least 600' using LRAD to show improved activity tolerance and decreasing falls risk. LTG Duration 02/13/22 Two Impairment Significantly limited right ankle ROM s/p surgical tendon transfer Assisted Goal (LTG) Pt to increase R ankle AROM to DF 0? and Eversion 10?in order to allow pt to help normalize gait pattern LTG Duration 02/13/22 One Impairment Pt does not have an appropriate home exercise program Short Term Goal (STG) Pt to be independent and compliant with an appropriate HEP STG Duration 12/27/21 Assessment Summary Assessment Struggling more today, increased edema and stiffness, continued to focus more on STM Physical Therapy Plan Frequency and Duration Frequency of Treatment 2x/Week Duration of Treatment 90 days Plan of Care Start Date 11/15/21 Plan of Care End Date 02/13/22 Therapeutic Interventions Therapeutic Interventions Aquatic Therapy,Balance Training,Gait Training,Home Exercise Program,Joint Mobilizations,Lymphedema Management,Manual Therapy, Patient/Caregiver Education, Self-Care/Home Management,Soft Tissue Mobilization, Therapeutic Activities, Therapeutic Exercises Next Visit Focus/Plan Next Note Type Treatment Note Next Visit Plan Ankle mobility, gait, balance
--- NOTE | 2021-12-08 12:43 | PT.OTN ---
Current Diagnoses Pain in right ankle and joints of right foot (12/08/21) Stiffness of unspecified ankle, not elsewhere classified (12/08/21) Pain in right foot (12/08/21) Other abnormalities of gait and mobility (12/08/21) History of falling (12/08/21) Physical Therapy Treatment Note PT-OP-A Visit Information Start: 11/15/21 15:38 Freq: Status: Active Protocol: Document 12/08/21 12:00 DCW (Rec: 12/08/21 12:43 DCW [id number]) Out-Patient Physical Therapy Visit Information Visit Information Visit Type Treatment Note Visit Start Time 12:00 Visit Stop Time 12:45 Total Visit Minutes 45 Visit Number 6 Number of SENIOR CLINICAL STUDY MANAGER Visits 0 Evaluation Information Evaluation Date 11/15/21 PT-OP-B Current Condition Start: 11/15/21 15:38 Freq: Status: Active Protocol: Document 11/15/21 12:00 DCW (Rec: 11/15/21 17:59 DCW [id number]) Current Condition History of Current Condition Onset Date Long-standing history Current Complaints Gait difficulty, ankle pain, ankle stiffness, low back pain History of Current Condition Pt is a 56 year old male very well known to this clinic presenting with a wildly complicated history. Pt had a tendon transfer surgery on his right ankle late last year in an effort to decrease his tendency to walk on the outside surface of his feet. Shortly after this, pt began to get painful blisters all over his skin and eventually was admitted to the burn [facility] in [facility] for one month, eventually being diagnosed with the autoimmune disorder bullous pemphigus. While being treated for this, there was worry about a bone infection in his foot, possibly secondary to the tendon transfer. Multiple biopsies were taken, which unfortunately then led to a severe fracture in his foot. Pt eventuually needed to have this bone fragment surgically removed. Pt returns to therapy after all of this in hopes to improve the mobility and strength of his ankle, as well as improve hiis gait and stability. Pt currently using a SPC while walking for stability. Fears his ankle has started locking up because he was unable to do much after surgery. Treatment Goals Patient/Caregiver Goals Improve ROM and stretch out his ankle, improve gait stability PT-OP-C Subjective Start: 11/15/21 15:38 Freq: Status: Active Protocol: Document 12/08/21 12:00 DCW (Rec: 12/08/21 12:43 DCW [id number]) OP-PT Subjective Patient Comments Patient Comments Pt complains his ankle is not coming around as quickly as he would like. PT-OP-E Functional Tests Start: 11/15/21 15:38 Freq: Status: Active Protocol: Document 11/15/21 12:00 DCW (Rec: 11/15/21 15:55 DCW [id number]) Functional Tests 2 Minute Walk Test Distance 257' Device Used SPC Comments 2.14 PT-OP-G Mobility & Gait Start: 11/15/21 15:38 Freq: Status: Active Protocol: Document 11/15/21 12:00 DCW (Rec: 11/15/21 15:58 DCW [id number]) OP Gait Assessment Gait Gait Assistance Required: Standby Assistance Distance (Feet) 257 Assistive Devices Assistive Device Straight Cane Gait Deviations General Gait Pattern Antalgic,Decreased Stride Length,Decreased Feet Clearance,Lateral Trunk Lean, Wide Based Gait Factors Limiting Gait Function Factors Limiting Gait Function Decreased Activity Tolerance, Decreased Sensation,Decreased Strength,Limited Range of Motion,Pain,Poor Balance Comments Gait Comments Pt ambulates with lateral R trunk flexion, excessive eversion bilaterally, right worse than left, although uses orthopedic shoes to increase foot stability. Pt also displays knee varus bilaterally, ambulates with toe-in bilaterally. After 2 MWT, pt noted he could not go any further due to back pain. PT-OP-H Neuro Start: 11/15/21 15:38 Freq: Status: Active Protocol: Document 11/15/21 12:00 DCW (Rec: 11/15/21 15:41 DCW [id number]) Sensation Evaluation Gross Sensation Gross Sensation Left LE Impaired,Right LE Impaired Sensation Description Numbness Location Details Right Foot Light Touch Absent Sharp/Dull Absent Deep Pressure Absent Protective Sensation Absent Proprioception (Position) Absent Kinesthesia (Movement) Impaired Left Foot Light Touch Absent Sharp/Dull Absent Deep Pressure Absent Protective Sensation Absent Proprioception (Position) Absent Kinesthesia (Movement) Impaired PT-OP-K Range of Motion Start: 11/15/21 15:38 Freq: Status: Active Protocol: Document 11/15/21 12:00 DCW (Rec: 11/15/21 15:55 DCW [id number]) Ankle and Foot Goniometric Range of Motion Ankle and Foot Right Active Testing Position Sitting Plantarflexion 30 Inversion 10 Eversion 0 Comments Dorsiflexion /c knee flexed lacking 10? from neutral Left Active Testing Position Sitting Dorsiflexion with Knee Flexed 0 Plantarflexion 50 Inversion 40 Eversion 10 PT-OP-Q Treatments Start: 11/15/21 15:38 Freq: Status: Active Protocol: Document 12/08/21 12:00 DCW (Rec: 12/08/21 12:43 [facility] [id number]) Therapeutic Exercises Sitting Exercises 1 Sitting Exercise Name BAPS Side right Resistance Lv 3 Comments DF/PF, Inv/Ev, CW/CCW Manual Therapy Treatment Joint Mobilizations 1 Joint Talocrual Direction A->P Grade III Body Position Sitting Other Other Manual Treatments Therapist-driven PROM PT-OP-T Assessment and Plan Start: 11/15/21 15:38 Freq: Status: Active Protocol: Document 12/08/21 12:00 DC (Rec: 12/08/21 12:43 [facility] [id number]) Physical Therapy Assessment Impairments Impairments Activity Tolerance,Balance, Edema,Functional Activities, Functional Mobility,Gait,Pain, Posture,ROM,Sensation,Soft Tissue Mobility,Strength,Tone Goals Three Impairment Pt ambulates 257' during 2 MWT using SPC with fatigue Package Sorter Goal (LTG) Pt to tolerate full 6 MWT without rest break while walking at least 600' using LRAD to show improved activity tolerance and decreasing falls risk. LTG Duration 02/13/22 Two Impairment Significantly limited right ankle ROM s/p surgical tendon transfer Package Sorter Goal (LTG) Pt to increase R ankle AROM to DF 0? and Eversion 10?in order to allow pt to help normalize gait pattern LTG Duration 02/13/22 One Impairment Pt does not have an appropriate home exercise program Short Term Goal (STG) Pt to be independent and compliant with an appropriate HEP STG Duration 12/27/21 Assessment Summary Assessment Pt tolerated increased size of BAPS ball fairly well, improving inversion/eversion Physical Therapy Plan Frequency and Duration Frequency of Treatment 2x/Week Duration of Treatment 90 days Plan of Care Start Date 11/15/21 Plan of Care End Date 02/13/22 Therapeutic Interventions Therapeutic Interventions Aquatic Therapy,Balance Training,Gait Training,Home Exercise Program,Joint Mobilizations,Lymphedema Management,Manual Therapy, Patient/Caregiver Education, Self-Care/Home Management,Soft Tissue Mobilization, Therapeutic Activities, Therapeutic Exercises Next Visit Focus/Plan Next Note Type Treatment Note Next Visit Plan Ankle mobility, gait, balance
--- NOTE | 2021-12-12 12:50 | PT.OTN ---
Current Diagnoses Pain in right ankle and joints of right foot (12/12/21) Stiffness of unspecified ankle, not elsewhere classified (12/12/21) Pain in right foot (12/12/21) Other abnormalities of gait and mobility (12/12/21) History of falling (12/12/21) Physical Therapy Treatment Note PT-OP-A Visit Information Start: 11/15/21 15:38 Freq: Status: Active Protocol: Document 12/12/21 12:00 DCW (Rec: 12/12/21 12:49 DCW [id number]) Out-Patient Physical Therapy Visit Information Visit Information Visit Type Treatment Note Visit Start Time 12:00 Visit Stop Time 12:45 Total Visit Minutes 45 Visit Number 7 Number of RESEARCH ASST Visits 0 Evaluation Information Evaluation Date 11/15/21 PT-OP-B Current Condition Start: 11/15/21 15:38 Freq: Status: Active Protocol: Document 11/15/21 12:00 DCW (Rec: 11/15/21 17:59 DCW [id number]) Current Condition History of Current Condition Onset Date Long-standing history Current Complaints Gait difficulty, ankle pain, ankle stiffness, low back pain History of Current Condition Pt is a 56 year old male very well known to this clinic presenting with a wildly complicated history. Pt had a tendon transfer surgery on his right ankle late last year in an effort to decrease his tendency to walk on the outside surface of his feet. Shortly after this, pt began to get painful blisters all over his skin and eventually was admitted to the burn [facility]iz in [facility] for one month, eventually being diagnosed with the autoimmune disorder bullous pemphigus. While being treated for this, there was worry about a bone infection in his foot, possibly secondary to the tendon transfer. Multiple biopsies were taken, which unfortunately then led to a severe fracture in his foot. Pt eventuually needed to have this bone fragment surgically removed. Pt returns to therapy after all of this in hopes to improve the mobility and strength of his ankle, as well as improve hiis gait and stability. Pt currently using a SPC while walking for stability. Fears his ankle has started locking up because he was unable to do much after surgery. Treatment Goals Patient/Caregiver Goals Improve ROM and stretch out his ankle, improve gait stability PT-OP-C Subjective Start: 11/15/21 15:38 Freq: Status: Active Protocol: Document 12/12/21 12:00 DCW (Rec: 12/12/21 12:49 DCW [id number]) OP-PT Subjective Patient Comments Patient Comments Both legs are really tight today, I don't know what I did . PT-OP-E Functional Tests Start: 11/15/21 15:38 Freq: Status: Active Protocol: Document 11/15/21 12:00 DCW (Rec: 11/15/21 15:55 DCW [id number]) Functional Tests 2 Minute Walk Test Distance 257' Device Used SPC Comments 2.14 PT-OP-G Mobility & Gait Start: 11/15/21 15:38 Freq: Status: Active Protocol: Document 11/15/21 12:00 DCW (Rec: 11/15/21 15:58 DCW [id number]) OP Gait Assessment Gait Gait Assistance Required: Standby Assistance Distance (Feet) 257 Assistive Devices Assistive Device Straight Cane Gait Deviations General Gait Pattern Antalgic,Decreased Stride Length,Decreased Feet Clearance,Lateral Trunk Lean, Wide Based Gait Factors Limiting Gait Function Factors Limiting Gait Function Decreased Activity Tolerance, Decreased Sensation,Decreased Strength,Limited Range of Motion,Pain,Poor Balance Comments Gait Comments Pt ambulates with lateral R trunk flexion, excessive eversion bilaterally, right worse than left, although uses orthopedic shoes to increase foot stability. Pt also displays knee varus bilaterally, ambulates with toe-in bilaterally. After 2 MWT, pt noted he could not go any further due to back pain. PT-OP-H Neuro Start: 11/15/21 15:38 Freq: Status: Active Protocol: Document 11/15/21 12:00 DCW (Rec: 11/15/21 15:41 DCW [id number]) Sensation Evaluation Gross Sensation Gross Sensation Left LE Impaired,Right LE Impaired Sensation Description Numbness Location Details Right Foot Light Touch Absent Sharp/Dull Absent Deep Pressure Absent Protective Sensation Absent Proprioception (Position) Absent Kinesthesia (Movement) Impaired Left Foot Light Touch Absent Sharp/Dull Absent Deep Pressure Absent Protective Sensation Absent Proprioception (Position) Absent Kinesthesia (Movement) Impaired PT-OP-K Range of Motion Start: 11/15/21 15:38 Freq: Status: Active Protocol: Document 11/15/21 12:00 DCW (Rec: 11/15/21 15:55 DCW [id number]) Ankle and Foot Goniometric Range of Motion Ankle and Foot Right Active Testing Position Sitting Plantarflexion 30 Inversion 10 Eversion 0 Comments Dorsiflexion /c knee flexed lacking 10? from neutral Left Active Testing Position Sitting Dorsiflexion with Knee Flexed 0 Plantarflexion 50 Inversion 40 Eversion 10 PT-OP-Q Treatments Start: 11/15/21 15:38 Freq: Status: Active Protocol: Document 12/12/21 12:00 DC (Rec: 12/12/21 12:49 [facility] [id number]) Therapeutic Exercises Sitting Exercises 1 Sitting Exercise Name BAPS Side right Resistance Lv 3 Comments DF/PF, Inv/Ev, CW/CCW Manual Therapy Treatment Joint Mobilizations 1 Joint Talocrual Direction A->P Grade III Body Position Sitting Other Other Manual Treatments Therapist-driven PROM PT-OP-T Assessment and Plan Start: 11/15/21 15:38 Freq: Status: Active Protocol: Document 12/12/21 12:00 [facility] (Rec: 12/12/21 12:49 [facility] [id number]) Physical Therapy Assessment Impairments Impairments Activity Tolerance,Balance, Edema,Functional Activities, Functional Mobility,Gait,Pain, Posture,ROM,Sensation,Soft Tissue Mobility,Strength,Tone Goals Three Impairment Pt ambulates 257' during 2 MWT using SPC with fatigue Alf Goal (LTG) Pt to tolerate full 6 MWT without rest break while walking at least 600' using LRAD to show improved activity tolerance and decreasing falls risk. LTG Duration 02/13/22 Two Impairment Significantly limited right ankle ROM s/p surgical tendon transfer Alf Goal (LTG) Pt to increase R ankle AROM to DF 0? and Eversion 10?in order to allow pt to help normalize gait pattern LTG Duration 02/13/22 One Impairment Pt does not have an appropriate home exercise program Short Term Goal (STG) Pt to be independent and compliant with an appropriate HEP STG Duration 12/27/21 Assessment Summary Assessment Pt showing some increased mobility today, able to keep his foot flatter on the floor during gait without rolling into eversion. Physical Therapy Plan Frequency and Duration Frequency of Treatment 2x/Week Duration of Treatment 90 days Plan of Care Start Date 11/15/21 Plan of Care End Date 02/13/22 Therapeutic Interventions Therapeutic Interventions Aquatic Therapy,Balance Training,Gait Training,Home Exercise Program,Joint Mobilizations,Lymphedema Management,Manual Therapy, Patient/Caregiver Education, Self-Care/Home Management,Soft Tissue Mobilization, Therapeutic Activities, Therapeutic Exercises Next Visit Focus/Plan Next Note Type Treatment Note Next Visit Plan Ankle mobility, gait, balance
--- NOTE | 2021-12-20 16:38 | PT.OTN ---
Current Diagnoses Pain in right ankle and joints of right foot (12/20/21) Stiffness of unspecified ankle, not elsewhere classified (12/20/21) Pain in right foot (12/20/21) Other abnormalities of gait and mobility (12/20/21) History of falling (12/20/21) Physical Therapy Treatment Note PT-OP-A Visit Information Start: 11/15/21 15:38 Freq: Status: Active Protocol: Document 12/20/21 10:32 SAK (Rec: 12/20/21 11:23 SAK [id number]) Out-Patient Physical Therapy Visit Information Visit Information Visit Type Treatment Note Visit Start Time 10:32 Visit Stop Time 09:27 Total Visit Minutes 55 Visit Number 8 Number of CAT SCANNER OPERATOR Visits 0 Evaluation Information Evaluation Date 11/15/21 PT-OP-B Current Condition Start: 11/15/21 15:38 Freq: Status: Active Protocol: Document 11/15/21 12:00 DCW (Rec: 11/15/21 17:59 DCW [id number]) Current Condition History of Current Condition Onset Date Long-standing history Current Complaints Gait difficulty, ankle pain, ankle stiffness, low back pain History of Current Condition Pt is a 56 year old male very well known to this clinic presenting with a wildly complicated history. Pt had a tendon transfer surgery on his right ankle late last year in an effort to decrease his tendency to walk on the outside surface of his feet. Shortly after this, pt began to get painful blisters all over his skin and eventually was admitted to the burn [facility] in [facility] for one month, eventually being diagnosed with the autoimmune disorder bullous pemphigus. While being treated for this, there was worry about a bone infection in his foot, possibly secondary to the tendon transfer. Multiple biopsies were taken, which unfortunately then led to a severe fracture in his foot. Pt eventuually needed to have this bone fragment surgically removed. Pt returns to therapy after all of this in hopes to improve the mobility and strength of his ankle, as well as improve hiis gait and stability. Pt currently using a SPC while walking for stability. Fears his ankle has started locking up because he was unable to do much after surgery. Treatment Goals Patient/Caregiver Goals Improve ROM and stretch out his ankle, improve gait stability PT-OP-C Subjective Start: 11/15/21 15:38 Freq: Status: Active Protocol: Document 12/20/21 10:32 SAK (Rec: 12/20/21 11:23 SAK [id number]) OP-PT Subjective Patient Comments Patient Comments Feels very tight and swollen, I need to get back to walking. PT-OP-E Functional Tests Start: 11/15/21 15:38 Freq: Status: Active Protocol: Document 11/15/21 12:00 DCW (Rec: 11/15/21 15:55 DCW [id number]) Functional Tests 2 Minute Walk Test Distance 257' Device Used SPC Comments 2.14 PT-OP-G Mobility & Gait Start: 11/15/21 15:38 Freq: Status: Active Protocol: Document 11/15/21 12:00 DCW (Rec: 11/15/21 15:58 DCW [id number]) OP Gait Assessment Gait Gait Assistance Required: Standby Assistance Distance (Feet) 257 Assistive Devices Assistive Device Straight Cane Gait Deviations General Gait Pattern Antalgic,Decreased Stride Length,Decreased Feet Clearance,Lateral Trunk Lean, Wide Based Gait Factors Limiting Gait Function Factors Limiting Gait Function Decreased Activity Tolerance, Decreased Sensation,Decreased Strength,Limited Range of Motion,Pain,Poor Balance Comments Gait Comments Pt ambulates with lateral R trunk flexion, excessive eversion bilaterally, right worse than left, although uses orthopedic shoes to increase foot stability. Pt also displays knee varus bilaterally, ambulates with toe-in bilaterally. After 2 MWT, pt noted he could not go any further due to back pain. PT-OP-H Neuro Start: 11/15/21 15:38 Freq: Status: Active Protocol: Document 11/15/21 12:00 DCW (Rec: 11/15/21 15:41 DCW [id number]) Sensation Evaluation Gross Sensation Gross Sensation Left LE Impaired,Right LE Impaired Sensation Description Numbness Location Details Right Foot Light Touch Absent Sharp/Dull Absent Deep Pressure Absent Protective Sensation Absent Proprioception (Position) Absent Kinesthesia (Movement) Impaired Left Foot Light Touch Absent Sharp/Dull Absent Deep Pressure Absent Protective Sensation Absent Proprioception (Position) Absent Kinesthesia (Movement) Impaired PT-OP-K Range of Motion Start: 11/15/21 15:38 Freq: Status: Active Protocol: Document 11/15/21 12:00 DCW (Rec: 11/15/21 15:55 DCW [id number]) Ankle and Foot Goniometric Range of Motion Ankle and Foot Right Active Testing Position Sitting Plantarflexion 30 Inversion 10 Eversion 0 Comments Dorsiflexion /c knee flexed lacking 10? from neutral Left Active Testing Position Sitting Dorsiflexion with Knee Flexed 0 Plantarflexion 50 Inversion 40 Eversion 10 PT-OP-Q Treatments Start: 11/15/21 15:38 Freq: Status: Active Protocol: Document 12/20/21 10:32 [facility] (Rec: 12/20/21 11:23 [facility] [id number]) Cardio Equipment Recumbent Stepper (Sci-Fit) Duration (Minutes) 5 Resistance 1-2 Seat Position 15 Other Cues for neutral LE alignment, weight through entire foot. Therapeutic Exercises Sitting Exercises 1 Sitting Exercise Name BAPS Side right Resistance Lv 3 Comments DF/PF, Inv/Ev, CW/CCW Standing Exercises weight shifts Standing Exercise Name toes to heels, Reps/Minutes 5x Comments cues for full foot contact Manual Therapy Treatment Joint Mobilizations 1 Joint Talocrual Direction A->P Grade III Body Position Hooklying Other Other Manual Treatments Therapist-driven PROM Lymphedema Treatment Manual Lymphatic Drainage Location right LE Duration 12 min Lymphedema Wrapping Other kinsiotape fan strips (3) right foot and ankle with bases proximal toward posterior knee Other Other Patient wearing soft slippers that are too tight at ankle; cut top band for increased room to eliminate excess compression (tourniquet effect ) pushing edema into foot. PT-OP-R Modalities Start: 11/15/21 15:38 Freq: Status: Active Protocol: Document 12/20/21 10:32 [facility] (Rec: 12/20/21 16:38 [facility] [id number]) Hot Pack/Cold Pack Treatment Cold Pack Location right foot/ankle Patient Position Hooklying Treatment Duration (minutes) 10 Patient Tolerance Good Comments cryocuff for edema reduction PT-OP-T Assessment and Plan Start: 11/15/21 15:38 Freq: Status: Active Protocol: Document 12/20/21 10:32 [facility] (Rec: 12/20/21 11:23 [facility] [id number]) Physical Therapy Assessment Impairments Impairments Activity Tolerance,Balance, Edema,Functional Activities, Functional Mobility,Gait,Pain, Posture,ROM,Sensation,Soft Tissue Mobility,Strength,Tone Goals Three Impairment Pt ambulates 257' during 2 MWT using SPC with fatigue Longterm Goal (LTG) Pt to tolerate full 6 MWT without rest break while walking at least 600' using LRAD to show improved activity tolerance and decreasing falls risk. LTG Duration 02/13/22 Two Impairment Significantly limited right ankle ROM s/p surgical tendon transfer Longterm Goal (LTG) Pt to increase R ankle AROM to DF 0? and Eversion 10?in order to allow pt to help normalize gait pattern LTG Duration 02/13/22 One Impairment Pt does not have an appropriate home exercise program Short Term Goal (STG) Pt to be independent and compliant with an appropriate HEP STG Duration 12/27/21 Assessment Summary Assessment Fair tolerance for Sci-Fit, done to facilitate improve lymphatic flow and ankle ROM with less weight-bearing. MLD and kinesiotape for edema reduction; no lymphedema bandaging due to patient reported poor tolerance to compression and expressing that doctor felt it made him luis his foot more. Physical Therapy Plan Frequency and Duration Frequency of Treatment 2x/Week Duration of Treatment 90 days Plan of Care Start Date 11/15/21 Plan of Care End Date 02/13/22 Therapeutic Interventions Therapeutic Interventions Aquatic Therapy,Balance Training,Gait Training,Home Exercise Program,Joint Mobilizations,Lymphedema Management,Manual Therapy, Patient/Caregiver Education, Self-Care/Home Management,Soft Tissue Mobilization, Therapeutic Activities, Therapeutic Exercises Next Visit Focus/Plan Next Note Type Treatment Note Next Visit Plan Ankle mobility, gait, balance, edema reduction treatment.
--- NOTE | 2021-12-27 12:22 | PT.OTN ---
Current Diagnoses Pain in right ankle and joints of right foot (12/27/21) Stiffness of unspecified ankle, not elsewhere classified (12/27/21) Pain in right foot (12/27/21) Other abnormalities of gait and mobility (12/27/21) History of falling (12/27/21) Physical Therapy Treatment Note PT-OP-A Visit Information Start: 11/15/21 15:38 Freq: Status: Active Protocol: Document 12/27/21 11:23 SAK (Rec: 12/27/21 12:22 SAK [id number]) Out-Patient Physical Therapy Visit Information Visit Information Visit Type Treatment Note Visit Start Time 11:20 Visit Stop Time 12:15 Total Visit Minutes 55 Visit Number 9 Number of SENIOR AUDIT MANAGER Visits 0 Evaluation Information Evaluation Date 11/15/21 PT-OP-B Current Condition Start: 11/15/21 15:38 Freq: Status: Active Protocol: Document 11/15/21 12:00 DCW (Rec: 11/15/21 17:59 DCW [id number]) Current Condition History of Current Condition Onset Date Long-standing history Current Complaints Gait difficulty, ankle pain, ankle stiffness, low back pain History of Current Condition Pt is a 56 year old male very well known to this clinic presenting with a wildly complicated history. Pt had a tendon transfer surgery on his right ankle late last year in an effort to decrease his tendency to walk on the outside surface of his feet. Shortly after this, pt began to get painful blisters all over his skin and eventually was admitted to the burn [facility] in [facility] for one month, eventually being diagnosed with the autoimmune disorder bullous pemphigus. While being treated for this, there was worry about a bone infection in his foot, possibly secondary to the tendon transfer. Multiple biopsies were taken, which unfortunately then led to a severe fracture in his foot. Pt eventuually needed to have this bone fragment surgically removed. Pt returns to therapy after all of this in hopes to improve the mobility and strength of his ankle, as well as improve hiis gait and stability. Pt currently using a SPC while walking for stability. Fears his ankle has started locking up because he was unable to do much after surgery. Treatment Goals Patient/Caregiver Goals Improve ROM and stretch out his ankle, improve gait stability PT-OP-C Subjective Start: 11/15/21 15:38 Freq: Status: Active Protocol: Document 12/27/21 11:23 SAK (Rec: 12/27/21 12:22 SAK [id number]) OP-PT Subjective Patient Comments Patient Comments Reports feeling he is putting his foot down more flat with walking after kinesiotape last session, requests more lateral foot tape correction. States he sees wrinkles in his foot that weren't there before indicating edema reduction PT-OP-E Functional Tests Start: 11/15/21 15:38 Freq: Status: Active Protocol: Document 11/15/21 12:00 DCW (Rec: 11/15/21 15:55 DCW [id number]) Functional Tests 2 Minute Walk Test Distance 257' Device Used SPC Comments 2.14 PT-OP-G Mobility & Gait Start: 11/15/21 15:38 Freq: Status: Active Protocol: Document 11/15/21 12:00 DCW (Rec: 11/15/21 15:58 DCW [id number]) OP Gait Assessment Gait Gait Assistance Required: Standby Assistance Distance (Feet) 257 Assistive Devices Assistive Device Straight Cane Gait Deviations General Gait Pattern Antalgic,Decreased Stride Length,Decreased Feet Clearance,Lateral Trunk Lean, Wide Based Gait Factors Limiting Gait Function Factors Limiting Gait Function Decreased Activity Tolerance, Decreased Sensation,Decreased Strength,Limited Range of Motion,Pain,Poor Balance Comments Gait Comments Pt ambulates with lateral R trunk flexion, excessive eversion bilaterally, right worse than left, although uses orthopedic shoes to increase foot stability. Pt also displays knee varus bilaterally, ambulates with toe-in bilaterally. After 2 MWT, pt noted he could not go any further due to back pain. PT-OP-H Neuro Start: 11/15/21 15:38 Freq: Status: Active Protocol: Document 11/15/21 12:00 DCW (Rec: 11/15/21 15:41 DCW [id number]) Sensation Evaluation Gross Sensation Gross Sensation Left LE Impaired,Right LE Impaired Sensation Description Numbness Location Details Right Foot Light Touch Absent Sharp/Dull Absent Deep Pressure Absent Protective Sensation Absent Proprioception (Position) Absent Kinesthesia (Movement) Impaired Left Foot Light Touch Absent Sharp/Dull Absent Deep Pressure Absent Protective Sensation Absent Proprioception (Position) Absent Kinesthesia (Movement) Impaired PT-OP-K Range of Motion Start: 11/15/21 15:38 Freq: Status: Active Protocol: Document 11/15/21 12:00 DCW (Rec: 11/15/21 15:55 DCW [id number]) Ankle and Foot Goniometric Range of Motion Ankle and Foot Right Active Testing Position Sitting Plantarflexion 30 Inversion 10 Eversion 0 Comments Dorsiflexion /c knee flexed lacking 10? from neutral Left Active Testing Position Sitting Dorsiflexion with Knee Flexed 0 Plantarflexion 50 Inversion 40 Eversion 10 PT-OP-Q Treatments Start: 11/15/21 15:38 Freq: Status: Active Protocol: Document 12/27/21 11:23 [facility] (Rec: 12/27/21 12:22 [facility] [id number]) Lymphedema Treatment Manual Lymphatic Drainage Location right LE Duration 25 min Lymphedema Wrapping Other two I strips for rearfoot eversion facil 75% tension kinsiotape fan strips (2) right foot and ankle with bases proximal toward posterior knee paper off tension Sequential Lymphedema Exercises Location right LE Duration during manual treatment Comments 5 reps ea x 2 deep breathing, glut sets, quad sets, ankle AROM Other Other circumferential measurements. PT-OP-R Modalities Start: 11/15/21 15:38 Freq: Status: Active Protocol: Document 12/27/21 11:23 [facility] (Rec: 12/27/21 12:22 [facility] [id number]) Hot Pack/Cold Pack Treatment Cold Pack Location right foot/ankle Patient Position Hooklying Treatment Duration (minutes) 10 Patient Tolerance Good Comments cryocuff for edema reduction PT-OP-T Assessment and Plan Start: 11/15/21 15:38 Freq: Status: Active Protocol: Document 12/27/21 11:23 [facility] (Rec: 12/27/21 12:22 [facility] [id number]) Physical Therapy Assessment Impairments Impairments Activity Tolerance,Balance, Edema,Functional Activities, Functional Mobility,Gait,Pain, Posture,ROM,Sensation,Soft Tissue Mobility,Strength,Tone Goals Three Impairment Pt ambulates 257' during 2 MWT using SPC with fatigue Vacuum Drum Drier Operator Goal (LTG) Pt to tolerate full 6 MWT without rest break while walking at least 600' using LRAD to show improved activity tolerance and decreasing falls risk. LTG Duration 02/13/22 Two Impairment Significantly limited right ankle ROM s/p surgical tendon transfer Detention Goal (LTG) Pt to increase R ankle AROM to DF 0? and Eversion 10?in order to allow pt to help normalize gait pattern LTG Duration 02/13/22 One Impairment Pt does not have an appropriate home exercise program Short Term Goal (STG) Pt to be independent and compliant with an appropriate HEP STG Duration 12/27/21 Assessment Summary Assessment Patient noting edema reduction and improved foot placement with gait after kinesiotape last session. MLD also today. Discussed compression further with patient reporting it seemed to pull his foot into more inversion; will need to consider options. Giving information regarding compression vendors and educational videos for self massage and lymphedema exercises. Physical Therapy Plan Frequency and Duration Frequency of Treatment 2x/Week Duration of Treatment 90 days Plan of Care Start Date 11/15/21 Plan of Care End Date 02/13/22 Therapeutic Interventions Therapeutic Interventions Aquatic Therapy,Balance Training,Gait Training,Home Exercise Program,Joint Mobilizations,Lymphedema Management,Manual Therapy, Patient/Caregiver Education, Self-Care/Home Management,Soft Tissue Mobilization, Therapeutic Activities, Therapeutic Exercises Next Visit Focus/Plan Next Note Type Treatment Note Next Visit Plan circumferential measurements, continue edema management. Ankle mobility, gait, balance.
--- NOTE | 2021-12-30 12:57 | PT.OTN ---
Current Diagnoses Pain in right ankle and joints of right foot (12/30/21) Stiffness of unspecified ankle, not elsewhere classified (12/30/21) Pain in right foot (12/30/21) Other abnormalities of gait and mobility (12/30/21) History of falling (12/30/21) Physical Therapy Treatment Note PT-OP-A Visit Information Start: 11/15/21 15:38 Freq: Status: Active Protocol: Document 12/30/21 12:00 DCW (Rec: 12/30/21 12:57 DCW [id number]) Out-Patient Physical Therapy Visit Information Visit Information Visit Type Treatment Note Visit Start Time 12:00 Visit Stop Time 12:45 Total Visit Minutes 45 Visit Number 10 Number of CYBER FORENSICS ANALYST Visits 0 Evaluation Information Evaluation Date 11/15/21 PT-OP-B Current Condition Start: 11/15/21 15:38 Freq: Status: Active Protocol: Document 11/15/21 12:00 DCW (Rec: 11/15/21 17:59 DCW [id number]) Current Condition History of Current Condition Onset Date Long-standing history Current Complaints Gait difficulty, ankle pain, ankle stiffness, low back pain History of Current Condition Pt is a 56 year old male very well known to this clinic presenting with a wildly complicated history. Pt had a tendon transfer surgery on his right ankle late last year in an effort to decrease his tendency to walk on the outside surface of his feet. Shortly after this, pt began to get painful blisters all over his skin and eventually was admitted to the burn [facility] in [facility] for one month, eventually being diagnosed with the autoimmune disorder bullous pemphigus. While being treated for this, there was worry about a bone infection in his foot, possibly secondary to the tendon transfer. Multiple biopsies were taken, which unfortunately then led to a severe fracture in his foot. Pt eventuually needed to have this bone fragment surgically removed. Pt returns to therapy after all of this in hopes to improve the mobility and strength of his ankle, as well as improve hiis gait and stability. Pt currently using a SPC while walking for stability. Fears his ankle has started locking up because he was unable to do much after surgery. Treatment Goals Patient/Caregiver Goals Improve ROM and stretch out his ankle, improve gait stability PT-OP-C Subjective Start: 11/15/21 15:38 Freq: Status: Active Protocol: Document 12/30/21 12:00 DCW (Rec: 12/30/21 12:57 DCW [id number]) OP-PT Subjective Patient Comments Patient Comments I saw Dr Rosado yesterday, he's happy with what you've done so far, just keep doing what you're doing. PT-OP-E Functional Tests Start: 11/15/21 15:38 Freq: Status: Active Protocol: Document 11/15/21 12:00 DCW (Rec: 11/15/21 15:55 DCW [id number]) Functional Tests 2 Minute Walk Test Distance 257' Device Used SPC Comments 2.14 PT-OP-G Mobility & Gait Start: 11/15/21 15:38 Freq: Status: Active Protocol: Document 11/15/21 12:00 DCW (Rec: 11/15/21 15:58 DCW [id number]) OP Gait Assessment Gait Gait Assistance Required: Standby Assistance Distance (Feet) 257 Assistive Devices Assistive Device Straight Cane Gait Deviations General Gait Pattern Antalgic,Decreased Stride Length,Decreased Feet Clearance,Lateral Trunk Lean, Wide Based Gait Factors Limiting Gait Function Factors Limiting Gait Function Decreased Activity Tolerance, Decreased Sensation,Decreased Strength,Limited Range of Motion,Pain,Poor Balance Comments Gait Comments Pt ambulates with lateral R trunk flexion, excessive eversion bilaterally, right worse than left, although uses orthopedic shoes to increase foot stability. Pt also displays knee varus bilaterally, ambulates with toe-in bilaterally. After 2 MWT, pt noted he could not go any further due to back pain. PT-OP-H Neuro Start: 11/15/21 15:38 Freq: Status: Active Protocol: Document 11/15/21 12:00 DCW (Rec: 11/15/21 15:41 DCW [id number]) Sensation Evaluation Gross Sensation Gross Sensation Left LE Impaired,Right LE Impaired Sensation Description Numbness Location Details Right Foot Light Touch Absent Sharp/Dull Absent Deep Pressure Absent Protective Sensation Absent Proprioception (Position) Absent Kinesthesia (Movement) Impaired Left Foot Light Touch Absent Sharp/Dull Absent Deep Pressure Absent Protective Sensation Absent Proprioception (Position) Absent Kinesthesia (Movement) Impaired PT-OP-K Range of Motion Start: 11/15/21 15:38 Freq: Status: Active Protocol: Document 11/15/21 12:00 DCW (Rec: 11/15/21 15:55 DCW [id number]) Ankle and Foot Goniometric Range of Motion Ankle and Foot Right Active Testing Position Sitting Plantarflexion 30 Inversion 10 Eversion 0 Comments Dorsiflexion /c knee flexed lacking 10? from neutral Left Active Testing Position Sitting Dorsiflexion with Knee Flexed 0 Plantarflexion 50 Inversion 40 Eversion 10 PT-OP-Q Treatments Start: 11/15/21 15:38 Freq: Status: Active Protocol: Document 12/30/21 12:00 DCW (Rec: 12/30/21 12:57 DCW [id number]) Manual Therapy Treatment Joint Mobilizations 1 Joint Talocrual Direction A->P Grade III Body Position Hooklying Taping 1 Body Location J-strap Type of Tape Evita Other Other Manual Treatments Therapist-driven PROM PT-OP-R Modalities Start: 11/15/21 15:38 Freq: Status: Active Protocol: Document 12/27/21 11:23 SAK (Rec: 12/27/21 12:22 SAK [id number]) Hot Pack/Cold Pack Treatment Cold Pack Location right foot/ankle Patient Position Hooklying Treatment Duration (minutes) 10 Patient Tolerance Good Comments cryocuff for edema reduction PT-OP-T Assessment and Plan Start: 11/15/21 15:38 Freq: Status: Active Protocol: Document 12/30/21 12:00 DCW (Rec: 12/30/21 12:57 DCW [id number]) Physical Therapy Assessment Impairments Impairments Activity Tolerance,Balance, Edema,Functional Activities, Functional Mobility,Gait,Pain, Posture,ROM,Sensation,Soft Tissue Mobility,Strength,Tone Goals Three Impairment Pt ambulates 257' during 2 MWT using SPC with fatigue Intermediate Goal (LTG) Pt to tolerate full 6 MWT without rest break while walking at least 600' using LRAD to show improved activity tolerance and decreasing falls risk. LTG Duration 02/13/22 Two Impairment Significantly limited right ankle ROM s/p surgical tendon transfer Intermediate Goal (LTG) Pt to increase R ankle AROM to DF 0? and Eversion 10?in order to allow pt to help normalize gait pattern LTG Duration 02/13/22 One Impairment Pt does not have an appropriate home exercise program Short Term Goal (STG) Pt to be independent and compliant with an appropriate HEP STG Duration 12/27/21 Assessment Summary Assessment Continuing to work more on ROM /ankle mobility, trial of Jama taping for J-strap today. Showing good reduction in LE edema. Physical Therapy Plan Frequency and Duration Frequency of Treatment 2x/Week Duration of Treatment 90 days Plan of Care Start Date 11/15/21 Plan of Care End Date 02/13/22 Therapeutic Interventions Therapeutic Interventions Aquatic Therapy,Balance Training,Gait Training,Home Exercise Program,Joint Mobilizations,Lymphedema Management,Manual Therapy, Patient/Caregiver Education, Self-Care/Home Management,Soft Tissue Mobilization, Therapeutic Activities, Therapeutic Exercises Next Visit Focus/Plan Next Note Type Treatment Note Next Visit Plan circumferential measurements, continue edema management. Ankle mobility, gait, balance.
--- NOTE | 2022-01-03 12:46 | PT.OTN ---
Current Diagnoses Pain in right ankle and joints of right foot (01/03/22) Stiffness of unspecified ankle, not elsewhere classified (01/03/22) Pain in right foot (01/03/22) Other abnormalities of gait and mobility (01/03/22) History of falling (01/03/22) Physical Therapy Treatment Note PT-OP-A Visit Information Start: 11/15/21 15:38 Freq: Status: Active Protocol: Document 01/03/22 12:00 DCW (Rec: 01/03/22 12:46 DCW [id number]) Out-Patient Physical Therapy Visit Information Visit Information Visit Type Treatment Note Visit Start Time 12:00 Visit Stop Time 12:45 Total Visit Minutes 45 Visit Number 11 Number of PATIENT COORDINATOR Visits 0 Evaluation Information Evaluation Date 11/15/21 PT-OP-B Current Condition Start: 11/15/21 15:38 Freq: Status: Active Protocol: Document 11/15/21 12:00 DCW (Rec: 11/15/21 17:59 DCW [id number]) Current Condition History of Current Condition Onset Date Long-standing history Current Complaints Gait difficulty, ankle pain, ankle stiffness, low back pain History of Current Condition Pt is a 56 year old male very well known to this clinic presenting with a wildly complicated history. Pt had a tendon transfer surgery on his right ankle late last year in an effort to decrease his tendency to walk on the outside surface of his feet. Shortly after this, pt began to get painful blisters all over his skin and eventually was admitted to the burn [facility] in [facility] for one month, eventually being diagnosed with the autoimmune disorder bullous pemphigus. While being treated for this, there was worry about a bone infection in his foot, possibly secondary to the tendon transfer. Multiple biopsies were taken, which unfortunately then led to a severe fracture in his foot. Pt eventuually needed to have this bone fragment surgically removed. Pt returns to therapy after all of this in hopes to improve the mobility and strength of his ankle, as well as improve hiis gait and stability. Pt currently using a SPC while walking for stability. Fears his ankle has started locking up because he was unable to do much after surgery. Treatment Goals Patient/Caregiver Goals Improve ROM and stretch out his ankle, improve gait stability PT-OP-C Subjective Start: 11/15/21 15:38 Freq: Status: Active Protocol: Document 01/03/22 12:00 DCW (Rec: 01/03/22 12:46 DCW [id number]) OP-PT Subjective Patient Comments Patient Comments The foot is moving in the right direction, but this knee is now popping more and more. PT-OP-E Functional Tests Start: 11/15/21 15:38 Freq: Status: Active Protocol: Document 11/15/21 12:00 DCW (Rec: 11/15/21 15:55 DCW [id number]) Functional Tests 2 Minute Walk Test Distance 257' Device Used SPC Comments 2.14 PT-OP-G Mobility & Gait Start: 11/15/21 15:38 Freq: Status: Active Protocol: Document 11/15/21 12:00 DCW (Rec: 11/15/21 15:58 DCW [id number]) OP Gait Assessment Gait Gait Assistance Required: Standby Assistance Distance (Feet) 257 Assistive Devices Assistive Device Straight Cane Gait Deviations General Gait Pattern Antalgic,Decreased Stride Length,Decreased Feet Clearance,Lateral Trunk Lean, Wide Based Gait Factors Limiting Gait Function Factors Limiting Gait Function Decreased Activity Tolerance, Decreased Sensation,Decreased Strength,Limited Range of Motion,Pain,Poor Balance Comments Gait Comments Pt ambulates with lateral R trunk flexion, excessive eversion bilaterally, right worse than left, although uses orthopedic shoes to increase foot stability. Pt also displays knee varus bilaterally, ambulates with toe-in bilaterally. After 2 MWT, pt noted he could not go any further due to back pain. PT-OP-H Neuro Start: 11/15/21 15:38 Freq: Status: Active Protocol: Document 11/15/21 12:00 DCW (Rec: 11/15/21 15:41 DCW [id number]) Sensation Evaluation Gross Sensation Gross Sensation Left LE Impaired,Right LE Impaired Sensation Description Numbness Location Details Right Foot Light Touch Absent Sharp/Dull Absent Deep Pressure Absent Protective Sensation Absent Proprioception (Position) Absent Kinesthesia (Movement) Impaired Left Foot Light Touch Absent Sharp/Dull Absent Deep Pressure Absent Protective Sensation Absent Proprioception (Position) Absent Kinesthesia (Movement) Impaired PT-OP-K Range of Motion Start: 11/15/21 15:38 Freq: Status: Active Protocol: Document 11/15/21 12:00 DCW (Rec: 11/15/21 15:55 DCW [id number]) Ankle and Foot Goniometric Range of Motion Ankle and Foot Right Active Testing Position Sitting Plantarflexion 30 Inversion 10 Eversion 0 Comments Dorsiflexion /c knee flexed lacking 10? from neutral Left Active Testing Position Sitting Dorsiflexion with Knee Flexed 0 Plantarflexion 50 Inversion 40 Eversion 10 PT-OP-Q Treatments Start: 11/15/21 15:38 Freq: Status: Active Protocol: Document 01/03/22 12:00 DCW (Rec: 01/03/22 12:46 DCW [id number]) Therapeutic Exercises Sitting Exercises 1 Sitting Exercise Name BAPS Side right Resistance Lv 3 Comments DF/PF, Inv/Ev, CW/CCW Manual Therapy Treatment Soft Tissue Mobilization 1 Body Location Medial gastroc/soleus Mobilization Type Sustained Pressure,Trigger Point Release Intensity/Depth Moderate Body Position Sitting Joint Mobilizations 1 Joint Talocrual Direction A->P Grade III Body Position Hooklying Taping 1 Body Location J-strap Type of Tape Evita Other Other Manual Treatments Therapist-driven PROM PT-OP-R Modalities Start: 11/15/21 15:38 Freq: Status: Active Protocol: Document 12/27/21 11:23 SAK (Rec: 12/27/21 12:22 SAK [id number]) Hot Pack/Cold Pack Treatment Cold Pack Location right foot/ankle Patient Position Hooklying Treatment Duration (minutes) 10 Patient Tolerance Good Comments cryocuff for edema reduction PT-OP-T Assessment and Plan Start: 11/15/21 15:38 Freq: Status: Active Protocol: Document 01/03/22 12:00 DCW (Rec: 01/03/22 12:46 DC [id number]) Physical Therapy Assessment Impairments Impairments Activity Tolerance,Balance, Edema,Functional Activities, Functional Mobility,Gait,Pain, Posture,ROM,Sensation,Soft Tissue Mobility,Strength,Tone Goals Three Impairment Pt ambulates 257' during 2 MWT using SPC with fatigue Chemical Laboratory Scientist Goal (LTG) Pt to tolerate full 6 MWT without rest break while walking at least 600' using LRAD to show improved activity tolerance and decreasing falls risk. LTG Duration 02/13/22 Two Impairment Significantly limited right ankle ROM s/p surgical tendon transfer Chemical Laboratory Scientist Goal (LTG) Pt to increase R ankle AROM to DF 0? and Eversion 10?in order to allow pt to help normalize gait pattern LTG Duration 02/13/22 One Impairment Pt does not have an appropriate home exercise program Short Term Goal (STG) Pt to be independent and compliant with an appropriate HEP STG Duration 12/27/21 Assessment Summary Assessment Pt felt Evita J-strap helped a lot with lateral stability of his joint, showing some improvement in edema as well as ankle mobility. Physical Therapy Plan Frequency and Duration Frequency of Treatment 2x/Week Duration of Treatment 90 days Plan of Care Start Date 11/15/21 Plan of Care End Date 02/13/22 Therapeutic Interventions Therapeutic Interventions Aquatic Therapy,Balance Training,Gait Training,Home Exercise Program,Joint Mobilizations,Lymphedema Management,Manual Therapy, Patient/Caregiver Education, Self-Care/Home Management,Soft Tissue Mobilization, Therapeutic Activities, Therapeutic Exercises Next Visit Focus/Plan Next Note Type Treatment Note Next Visit Plan circumferential measurements, continue edema management. Ankle mobility, gait, balance.
--- NOTE | 2022-01-06 12:49 | PT.OTN ---
Current Diagnoses Pain in right ankle and joints of right foot (01/06/22) Stiffness of unspecified ankle, not elsewhere classified (01/06/22) Pain in right foot (01/06/22) Other abnormalities of gait and mobility (01/06/22) History of falling (01/06/22) Physical Therapy Treatment Note PT-OP-A Visit Information Start: 11/15/21 15:38 Freq: Status: Active Protocol: Document 01/06/22 12:00 DCW (Rec: 01/06/22 12:49 DCW [id number]) Out-Patient Physical Therapy Visit Information Visit Information Visit Type Treatment Note Visit Start Time 12:00 Visit Stop Time 12:45 Total Visit Minutes 45 Visit Number 12 Number of LAW ENFORCEMENT OFFICER Visits 0 Evaluation Information Evaluation Date 11/15/21 PT-OP-B Current Condition Start: 11/15/21 15:38 Freq: Status: Active Protocol: Document 11/15/21 12:00 DCW (Rec: 11/15/21 17:59 DCW [id number]) Current Condition History of Current Condition Onset Date Long-standing history Current Complaints Gait difficulty, ankle pain, ankle stiffness, low back pain History of Current Condition Pt is a 56 year old male very well known to this clinic presenting with a wildly complicated history. Pt had a tendon transfer surgery on his right ankle late last year in an effort to decrease his tendency to walk on the outside surface of his feet. Shortly after this, pt began to get painful blisters all over his skin and eventually was admitted to the burn [facility] in [facility] for one month, eventually being diagnosed with the autoimmune disorder bullous pemphigus. While being treated for this, there was worry about a bone infection in his foot, possibly secondary to the tendon transfer. Multiple biopsies were taken, which unfortunately then led to a severe fracture in his foot. Pt eventuually needed to have this bone fragment surgically removed. Pt returns to therapy after all of this in hopes to improve the mobility and strength of his ankle, as well as improve hiis gait and stability. Pt currently using a SPC while walking for stability. Fears his ankle has started locking up because he was unable to do much after surgery. Treatment Goals Patient/Caregiver Goals Improve ROM and stretch out his ankle, improve gait stability PT-OP-C Subjective Start: 11/15/21 15:38 Freq: Status: Active Protocol: Document 01/06/22 12:00 DCW (Rec: 01/06/22 12:49 DCW [id number]) OP-PT Subjective Patient Comments Patient Comments Pt notes he was out trying to mow his yard, which was probably pretty stupid. PT-OP-E Functional Tests Start: 11/15/21 15:38 Freq: Status: Active Protocol: Document 11/15/21 12:00 DCW (Rec: 11/15/21 15:55 DCW [id number]) Functional Tests 2 Minute Walk Test Distance 257' Device Used SPC Comments 2.14 PT-OP-G Mobility & Gait Start: 11/15/21 15:38 Freq: Status: Active Protocol: Document 11/15/21 12:00 DCW (Rec: 11/15/21 15:58 DCW [id number]) OP Gait Assessment Gait Gait Assistance Required: Standby Assistance Distance (Feet) 257 Assistive Devices Assistive Device Straight Cane Gait Deviations General Gait Pattern Antalgic,Decreased Stride Length,Decreased Feet Clearance,Lateral Trunk Lean, Wide Based Gait Factors Limiting Gait Function Factors Limiting Gait Function Decreased Activity Tolerance, Decreased Sensation,Decreased Strength,Limited Range of Motion,Pain,Poor Balance Comments Gait Comments Pt ambulates with lateral R trunk flexion, excessive eversion bilaterally, right worse than left, although uses orthopedic shoes to increase foot stability. Pt also displays knee varus bilaterally, ambulates with toe-in bilaterally. After 2 MWT, pt noted he could not go any further due to back pain. PT-OP-H Neuro Start: 11/15/21 15:38 Freq: Status: Active Protocol: Document 11/15/21 12:00 DCW (Rec: 11/15/21 15:41 DCW [id number]) Sensation Evaluation Gross Sensation Gross Sensation Left LE Impaired,Right LE Impaired Sensation Description Numbness Location Details Right Foot Light Touch Absent Sharp/Dull Absent Deep Pressure Absent Protective Sensation Absent Proprioception (Position) Absent Kinesthesia (Movement) Impaired Left Foot Light Touch Absent Sharp/Dull Absent Deep Pressure Absent Protective Sensation Absent Proprioception (Position) Absent Kinesthesia (Movement) Impaired PT-OP-K Range of Motion Start: 11/15/21 15:38 Freq: Status: Active Protocol: Document 11/15/21 12:00 DCW (Rec: 11/15/21 15:55 DCW [id number]) Ankle and Foot Goniometric Range of Motion Ankle and Foot Right Active Testing Position Sitting Plantarflexion 30 Inversion 10 Eversion 0 Comments Dorsiflexion /c knee flexed lacking 10? from neutral Left Active Testing Position Sitting Dorsiflexion with Knee Flexed 0 Plantarflexion 50 Inversion 40 Eversion 10 PT-OP-Q Treatments Start: 11/15/21 15:38 Freq: Status: Active Protocol: Document 01/06/22 12:00 DCW (Rec: 01/06/22 12:49 DCW [id number]) Therapeutic Exercises Sitting Exercises 1 Sitting Exercise Name BAPS Side right Resistance Lv 3 Comments DF/PF, Inv/Ev, CW/CCW Manual Therapy Treatment Soft Tissue Mobilization 1 Body Location Medial gastroc/soleus Mobilization Type Sustained Pressure,Trigger Point Release Intensity/Depth Moderate Body Position Sitting Joint Mobilizations 1 Joint Talocrual Direction A->P Grade III Body Position Hooklying Taping 1 Body Location J-strap Type of Tape Evita Other Other Manual Treatments Therapist-driven PROM PT-OP-R Modalities Start: 11/15/21 15:38 Freq: Status: Active Protocol: Document 12/27/21 11:23 SAK (Rec: 12/27/21 12:22 SAK [id number]) Hot Pack/Cold Pack Treatment Cold Pack Location right foot/ankle Patient Position Hooklying Treatment Duration (minutes) 10 Patient Tolerance Good Comments cryocuff for edema reduction PT-OP-T Assessment and Plan Start: 11/15/21 15:38 Freq: Status: Active Protocol: Document 01/06/22 12:00 DCW (Rec: 01/06/22 12:49 DCW [id number]) Physical Therapy Assessment Impairments Impairments Activity Tolerance,Balance, Edema,Functional Activities, Functional Mobility,Gait,Pain, Posture,ROM,Sensation,Soft Tissue Mobility,Strength,Tone Goals Three Impairment Pt ambulates 257' during 2 MWT using SPC with fatigue [facility] Goal (LTG) Pt to tolerate full 6 MWT without rest break while walking at least 600' using LRAD to show improved activity tolerance and decreasing falls risk. LTG Duration 02/13/22 Two Impairment Significantly limited right ankle ROM s/p surgical tendon transfer Prison Warden Goal (LTG) Pt to increase R ankle AROM to DF 0? and Eversion 10?in order to allow pt to help normalize gait pattern LTG Duration 7/11/22 One Impairment Pt does not have an appropriate home exercise program Short Term Goal (STG) Pt to be independent and compliant with an appropriate HEP STG Duration 12/27/21 Assessment Summary Assessment Pt struggled today with BAPS board, had decreased mobility with Inv/Ev, less control over movement. Does, however, show good decrease in edema. Physical Therapy Plan Frequency and Duration Frequency of Treatment 2x/Week Duration of Treatment 90 days Plan of Care Start Date 11/15/21 Plan of Care End Date 02/13/22 Therapeutic Interventions Therapeutic Interventions Aquatic Therapy,Balance Training,Gait Training,Home Exercise Program,Joint Mobilizations,Lymphedema Management,Manual Therapy, Patient/Caregiver Education, Self-Care/Home Management,Soft Tissue Mobilization, Therapeutic Activities, Therapeutic Exercises Next Visit Focus/Plan Next Note Type Treatment Note Next Visit Plan circumferential measurements, continue edema management. Ankle mobility, gait, balance.
--- NOTE | 2022-01-10 14:12 | PT.OTN ---
Current Diagnoses Pain in right ankle and joints of right foot (01/10/22) Stiffness of unspecified ankle, not elsewhere classified (01/10/22) Pain in right foot (01/10/22) Other abnormalities of gait and mobility (01/10/22) History of falling (01/10/22) Physical Therapy Treatment Note PT-OP-A Visit Information Start: 11/15/21 15:38 Freq: Status: Active Protocol: Document 01/10/22 11:17 SAK (Rec: 01/10/22 11:24 SAK [id number]) Out-Patient Physical Therapy Visit Information Visit Information Visit Type Treatment Note Visit Start Time 11:17 Visit Stop Time 12:15 Total Visit Minutes 58 Visit Number 13 Number of RESIDENT IN DIAGNOSTIC RADIOLOGY Visits 0 Evaluation Information Evaluation Date 11/15/21 PT-OP-B Current Condition Start: 11/15/21 15:38 Freq: Status: Active Protocol: Document 11/15/21 12:00 DCW (Rec: 11/15/21 17:59 DCW [id number]) Current Condition History of Current Condition Onset Date Long-standing history Current Complaints Gait difficulty, ankle pain, ankle stiffness, low back pain History of Current Condition Pt is a 56 year old male very well known to this clinic presenting with a wildly complicated history. Pt had a tendon transfer surgery on his right ankle late last year in an effort to decrease his tendency to walk on the outside surface of his feet. Shortly after this, pt began to get painful blisters all over his skin and eventually was admitted to the burn [facility] in [facility] for one month, eventually being diagnosed with the autoimmune disorder bullous pemphigus. While being treated for this, there was worry about a bone infection in his foot, possibly secondary to the tendon transfer. Multiple biopsies were taken, which unfortunately then led to a severe fracture in his foot. Pt eventuually needed to have this bone fragment surgically removed. Pt returns to therapy after all of this in hopes to improve the mobility and strength of his ankle, as well as improve hiis gait and stability. Pt currently using a SPC while walking for stability. Fears his ankle has started locking up because he was unable to do much after surgery. Treatment Goals Patient/Caregiver Goals Improve ROM and stretch out his ankle, improve gait stability PT-OP-C Subjective Start: 11/15/21 15:38 Freq: Status: Active Protocol: Document 01/10/22 11:17 SAK (Rec: 01/10/22 11:24 SAK [id number]) OP-PT Subjective Patient Comments Patient Comments Sore from all the activity doing at home. Likes both the J strap and kinesiotape; Dr. Rosado was happy with what you all are doing. PT-OP-E Functional Tests Start: 11/15/21 15:38 Freq: Status: Active Protocol: Document 11/15/21 12:00 DCW (Rec: 11/15/21 15:55 DCW [id number]) Functional Tests 2 Minute Walk Test Distance 257' Device Used SPC Comments 2.14 PT-OP-G Mobility & Gait Start: 11/15/21 15:38 Freq: Status: Active Protocol: Document 11/15/21 12:00 DCW (Rec: 11/15/21 15:58 DCW [id number]) OP Gait Assessment Gait Gait Assistance Required: Standby Assistance Distance (Feet) 257 Assistive Devices Assistive Device Straight Cane Gait Deviations General Gait Pattern Antalgic,Decreased Stride Length,Decreased Feet Clearance,Lateral Trunk Lean, Wide Based Gait Factors Limiting Gait Function Factors Limiting Gait Function Decreased Activity Tolerance, Decreased Sensation,Decreased Strength,Limited Range of Motion,Pain,Poor Balance Comments Gait Comments Pt ambulates with lateral R trunk flexion, excessive eversion bilaterally, right worse than left, although uses orthopedic shoes to increase foot stability. Pt also displays knee varus bilaterally, ambulates with toe-in bilaterally. After 2 MWT, pt noted he could not go any further due to back pain. PT-OP-H Neuro Start: 11/15/21 15:38 Freq: Status: Active Protocol: Document 11/15/21 12:00 DCW (Rec: 11/15/21 15:41 DCW [id number]) Sensation Evaluation Gross Sensation Gross Sensation Left LE Impaired,Right LE Impaired Sensation Description Numbness Location Details Right Foot Light Touch Absent Sharp/Dull Absent Deep Pressure Absent Protective Sensation Absent Proprioception (Position) Absent Kinesthesia (Movement) Impaired Left Foot Light Touch Absent Sharp/Dull Absent Deep Pressure Absent Protective Sensation Absent Proprioception (Position) Absent Kinesthesia (Movement) Impaired PT-OP-K Range of Motion Start: 11/15/21 15:38 Freq: Status: Active Protocol: Document 11/15/21 12:00 DCW (Rec: 11/15/21 15:55 DCW [id number]) Ankle and Foot Goniometric Range of Motion Ankle and Foot Right Active Testing Position Sitting Plantarflexion 30 Inversion 10 Eversion 0 Comments Dorsiflexion /c knee flexed lacking 10? from neutral Left Active Testing Position Sitting Dorsiflexion with Knee Flexed 0 Plantarflexion 50 Inversion 40 Eversion 10 PT-OP-Q Treatments Start: 11/15/21 15:38 Freq: Status: Active Protocol: Document 01/10/22 11:17 [facility] (Rec: 01/10/22 11:24 [facility] [id number]) Manual Therapy Treatment Taping 1 Body Location J-strap Type of Tape Jama Lymphedema Treatment Manual Lymphatic Drainage Location right LE Duration 25 min Lymphedema Wrapping Other kinsiotape fan strips (4) right foot and ankle with bases proximal toward posterior knee paper off tension, crossed anterior rutherford Sequential Lymphedema Exercises Location right LE Duration during manual treatment Comments 5 reps ea x 2 deep breathing, glut sets, quad sets, ankle AROM PT-OP-R Modalities Start: 11/15/21 15:38 Freq: Status: Active Protocol: Document 12/27/21 11:23 [facility] (Rec: 12/27/21 12:22 [facility] [id number]) Hot Pack/Cold Pack Treatment Cold Pack Location right foot/ankle Patient Position Hooklying Treatment Duration (minutes) 10 Patient Tolerance Good Comments cryocuff for edema reduction PT-OP-T Assessment and Plan Start: 11/15/21 15:38 Freq: Status: Active Protocol: Document 01/10/22 11:17 [facility] (Rec: 01/10/22 11:24 [facility] [id number]) Physical Therapy Assessment Impairments Impairments Activity Tolerance,Balance, Edema,Functional Activities, Functional Mobility,Gait,Pain, Posture,ROM,Sensation,Soft Tissue Mobility,Strength,Tone Goals Three Impairment Pt ambulates 257' during 2 MWT using SPC with fatigue Sap Bw Consultant Goal (LTG) Pt to tolerate full 6 MWT without rest break while walking at least 600' using LRAD to show improved activity tolerance and decreasing falls risk. LTG Duration 02/13/22 Two Impairment Significantly limited right ankle ROM s/p surgical tendon transfer [facility] Goal (LTG) Pt to increase R ankle AROM to DF 0? and Eversion 10?in order to allow pt to help normalize gait pattern LTG Duration 02/13/22 One Impairment Pt does not have an appropriate home exercise program Short Term Goal (STG) Pt to be independent and compliant with an appropriate HEP STG Duration 12/27/21 Assessment Summary Assessment Some reduction in foot edema noted with circumferential measurements. Not as sore as at last PT session but still sore due to activities at home . Taping done for both edema reduction with kinesiotape and McConnel J strap taping. Physical Therapy Plan Frequency and Duration Frequency of Treatment 2x/Week Duration of Treatment 90 days Plan of Care Start Date 11/15/21 Plan of Care End Date 02/13/22 Therapeutic Interventions Therapeutic Interventions Aquatic Therapy,Balance Training,Gait Training,Home Exercise Program,Joint Mobilizations,Lymphedema Management,Manual Therapy, Patient/Caregiver Education, Self-Care/Home Management,Soft Tissue Mobilization, Therapeutic Activities, Therapeutic Exercises Next Visit Focus/Plan Next Note Type Treatment Note Next Visit Plan Evaluate response to both types of taping done together, take circumferential measurements, continue edema management. Ankle mobility, gait, balance.
--- NOTE | 2022-01-24 17:09 | PT.OTN ---
Current Diagnoses Pain in right ankle and joints of right foot (01/24/22) Stiffness of unspecified ankle, not elsewhere classified (01/24/22) Pain in right foot (01/24/22) Other abnormalities of gait and mobility (01/24/22) History of falling (01/24/22) Physical Therapy Treatment Note PT-OP-A Visit Information Start: 11/15/21 15:38 Freq: Status: Active Protocol: Document 01/24/22 14:48 SAK (Rec: 01/24/22 17:09 SAK [id number]) Out-Patient Physical Therapy Visit Information Visit Information Visit Type Treatment Note Visit Start Time 14:30 Visit Stop Time 16:30 Total Visit Minutes 60 Visit Number 60 Number of CHANGE MANAGEMENT SPECIALIST Visits 0 PT-OP-B Current Condition Start: 11/15/21 15:38 Freq: Status: Active Protocol: Document 11/15/21 12:00 DCW (Rec: 11/15/21 17:59 DCW [id number]) Current Condition History of Current Condition Onset Date Long-standing history Current Complaints Gait difficulty, ankle pain, ankle stiffness, low back pain History of Current Condition Pt is a 56 year old male very well known to this clinic presenting with a wildly complicated history. Pt had a tendon transfer surgery on his right ankle late last year in an effort to decrease his tendency to walk on the outside surface of his feet. Shortly after this, pt began to get painful blisters all over his skin and eventually was admitted to the burn [facility] in [facility] for one month, eventually being diagnosed with the autoimmune disorder bullous pemphigus. While being treated for this, there was worry about a bone infection in his foot, possibly secondary to the tendon transfer. Multiple biopsies were taken, which unfortunately then led to a severe fracture in his foot. Pt eventuually needed to have this bone fragment surgically removed. Pt returns to therapy after all of this in hopes to improve the mobility and strength of his ankle, as well as improve hiis gait and stability. Pt currently using a SPC while walking for stability. Fears his ankle has started locking up because he was unable to do much after surgery. Treatment Goals Patient/Caregiver Goals Improve ROM and stretch out his ankle, improve gait stability PT-OP-C Subjective Start: 11/15/21 15:38 Freq: Status: Active Protocol: Document 01/24/22 14:48 SAK (Rec: 01/24/22 17:09 SAK [id number]) OP-PT Subjective Patient Comments Patient Comments Saw Dr. Taylor yesterday, staying on Percocet. Doesn't want to go back on Fentanyl as recommended. Removed tape a couple days ago, can feel difference, less stable and more turning of foot. PT-OP-E Functional Tests Start: 11/15/21 15:38 Freq: Status: Active Protocol: Document 11/15/21 12:00 DCW (Rec: 11/15/21 15:55 DCW [id number]) Functional Tests 2 Minute Walk Test Distance 257' Device Used SPC Comments 2.14 PT-OP-G Mobility & Gait Start: 11/15/21 15:38 Freq: Status: Active Protocol: Document 11/15/21 12:00 DCW (Rec: 11/15/21 15:58 DCW [id number]) OP Gait Assessment Gait Gait Assistance Required: Standby Assistance Distance (Feet) 257 Assistive Devices Assistive Device Straight Cane Gait Deviations General Gait Pattern Antalgic,Decreased Stride Length,Decreased Feet Clearance,Lateral Trunk Lean, Wide Based Gait Factors Limiting Gait Function Factors Limiting Gait Function Decreased Activity Tolerance, Decreased Sensation,Decreased Strength,Limited Range of Motion,Pain,Poor Balance Comments Gait Comments Pt ambulates with lateral R trunk flexion, excessive eversion bilaterally, right worse than left, although uses orthopedic shoes to increase foot stability. Pt also displays knee varus bilaterally, ambulates with toe-in bilaterally. After 2 MWT, pt noted he could not go any further due to back pain. PT-OP-H Neuro Start: 11/15/21 15:38 Freq: Status: Active Protocol: Document 11/15/21 12:00 DCW (Rec: 11/15/21 15:41 DCW [id number]) Sensation Evaluation Gross Sensation Gross Sensation Left LE Impaired,Right LE Impaired Sensation Description Numbness Location Details Right Foot Light Touch Absent Sharp/Dull Absent Deep Pressure Absent Protective Sensation Absent Proprioception (Position) Absent Kinesthesia (Movement) Impaired Left Foot Light Touch Absent Sharp/Dull Absent Deep Pressure Absent Protective Sensation Absent Proprioception (Position) Absent Kinesthesia (Movement) Impaired PT-OP-K Range of Motion Start: 11/15/21 15:38 Freq: Status: Active Protocol: Document 11/15/21 12:00 DCW (Rec: 11/15/21 15:55 DCW [id number]) Ankle and Foot Goniometric Range of Motion Ankle and Foot Right Active Testing Position Sitting Plantarflexion 30 Inversion 10 Eversion 0 Comments Dorsiflexion /c knee flexed lacking 10? from neutral Left Active Testing Position Sitting Dorsiflexion with Knee Flexed 0 Plantarflexion 50 Inversion 40 Eversion 10 PT-OP-Q Treatments Start: 11/15/21 15:38 Freq: Status: Active Protocol: Document 01/24/22 14:48 SAK (Rec: 01/24/22 17:09 [facility] [id number]) Cardio Equipment Recumbent Stepper (Sci-Fit) Duration (Minutes) 6 Resistance 4 Seat Position 15 Other Cues for neutral LE alignment, weight through entire foot. Therapeutic Exercises Sitting Exercises calf stretch Comments HEP 2 Sitting Exercise Name Ankle DF/Inv/Ev Side right Resistance Lv 2 Equipment Used T-band Comments HEP 1 Sitting Exercise Name BAPS Side right Resistance Lv 4 Reps/Minutes 10x ea Comments DF/PF, Inv/Ev, CW/CCW Standing Exercises calf stretch Reps/Minutes 1x1min Comments ZULEIKA tiltboard Standing Exercise Name fwd/bck, side to side bal and weight shift Reps/Minutes 5 min blue foam stand Reps/Minutes 1 min Comments cues for all 4 corners of feet in contact Manual Therapy Treatment Taping 1 Body Location J-strap Type of Tape Evita Lymphedema Treatment Manual Lymphatic Drainage Location right LE Duration 20 min Lymphedema Wrapping Other kinsiotape fan strips (3) right foot and ankle with bases proximal toward posterior knee paper off tension, crossed anterior rutherford (1 under and 1 over J strap). PT-OP-R Modalities Start: 11/15/21 15:38 Freq: Status: Active Protocol: Document 01/24/22 14:48 SAK (Rec: 01/24/22 17:09 [facility] [id number]) Hot Pack/Cold Pack Treatment Cold Pack Location right foot/ankle Patient Position Hooklying Treatment Duration (minutes) 10 Patient Tolerance Good Comments cryocuff for pain and edema reduction PT-OP-T Assessment and Plan Start: 11/15/21 15:38 Freq: Status: Active Protocol: Document 01/24/22 14:48 SAK (Rec: 01/24/22 17:09 [facility] [id number]) Physical Therapy Assessment Rehab Potential Rehabilitation Potential Fair Impairments Impairments Activity Tolerance,Balance, Edema,Functional Activities, Functional Mobility,Gait,Pain, Posture,ROM,Sensation,Soft Tissue Mobility,Strength,Tone Goals Three Impairment Pt ambulates 257' during 2 MWT using SPC with fatigue Fpc Goal (LTG) Pt to tolerate full 6 MWT without rest break while walking at least 600' using LRAD to show improved activity tolerance and decreasing falls risk. LTG Duration 02/13/22 Two Impairment Significantly limited right ankle ROM s/p surgical tendon transfer Fpc Goal (LTG) Pt to increase R ankle AROM to DF 0? and Eversion 10?in order to allow pt to help normalize gait pattern LTG Duration 02/13/22 One Impairment Pt does not have an appropriate home exercise program Short Term Goal (STG) Pt to be independent and compliant with an appropriate HEP STG Duration goal met Fpc Goal (LTG) Patient will tolerate progression of therapeutic exercises to work on flexibility, strengthening, and edema reduction of right foot and ankle. LTG Duration 02/13/22 Assessment Summary Assessment Patient tolerated increased ther ex including standing balance, strengthening, and flexibility exercises. Physical Therapy Plan Frequency and Duration Frequency of Treatment 2x/Week Duration of Treatment 90 days Plan of Care Start Date 11/15/21 Plan of Care End Date 02/13/22 Therapeutic Interventions Therapeutic Interventions Aquatic Therapy,Balance Training,Gait Training,Home Exercise Program,Joint Mobilizations,Lymphedema Management,Manual Therapy, Patient/Caregiver Education, Self-Care/Home Management,Soft Tissue Mobilization, Therapeutic Activities, Therapeutic Exercises Next Visit Focus/Plan Next Note Type Treatment Note Next Visit Plan Continue ther ex for ROM, strengthning, balance. Manual treatment for ankle mobility, kinesiotape and McConnel taping, gait training , edema management.
--- NOTE | 2022-01-26 17:54 | PT.OTN ---
Current Diagnoses Pain in right ankle and joints of right foot (01/26/22) Stiffness of unspecified ankle, not elsewhere classified (01/26/22) Pain in right foot (01/26/22) Other abnormalities of gait and mobility (01/26/22) History of falling (01/26/22) Physical Therapy Treatment Note PT-OP-A Visit Information Start: 11/15/21 15:38 Freq: Status: Active Protocol: Document 01/26/22 13:45 SAK (Rec: 01/26/22 14:42 SAK [id number]) Out-Patient Physical Therapy Visit Information Visit Information Visit Type Treatment Note Visit Start Time 13:45 Visit Stop Time 14:45 Total Visit Minutes 60 Visit Number 16 Number of PUNCH PRESS FEEDER Visits 0 PT-OP-B Current Condition Start: 11/15/21 15:38 Freq: Status: Active Protocol: Document 11/15/21 12:00 DCW (Rec: 11/15/21 17:59 DCW [id number]) Current Condition History of Current Condition Onset Date Long-standing history Current Complaints Gait difficulty, ankle pain, ankle stiffness, low back pain History of Current Condition Pt is a 56 year old male very well known to this clinic presenting with a wildly complicated history. Pt had a tendon transfer surgery on his right ankle late last year in an effort to decrease his tendency to walk on the outside surface of his feet. Shortly after this, pt began to get painful blisters all over his skin and eventually was admitted to the burn [facility] in [facility] for one month, eventually being diagnosed with the autoimmune disorder bullous pemphigus. While being treated for this, there was worry about a bone infection in his foot, possibly secondary to the tendon transfer. Multiple biopsies were taken, which unfortunately then led to a severe fracture in his foot. Pt eventuually needed to have this bone fragment surgically removed. Pt returns to therapy after all of this in hopes to improve the mobility and strength of his ankle, as well as improve hiis gait and stability. Pt currently using a SPC while walking for stability. Fears his ankle has started locking up because he was unable to do much after surgery. Treatment Goals Patient/Caregiver Goals Improve ROM and stretch out his ankle, improve gait stability PT-OP-C Subjective Start: 11/15/21 15:38 Freq: Status: Active Protocol: Document 01/24/22 14:48 SAK (Rec: 01/24/22 17:09 SAK [id number]) OP-PT Subjective Patient Comments Patient Comments Saw Dr. Taylor yesterday, staying on Percocet. Doesn't want to go back on Fentanyl as recommended. Removed tape a couple days ago, can feel difference, less stable and more turning of foot. PT-OP-E Functional Tests Start: 11/15/21 15:38 Freq: Status: Active Protocol: Document 11/15/21 12:00 DCW (Rec: 11/15/21 15:55 DCW [id number]) Functional Tests 2 Minute Walk Test Distance 257' Device Used SPC Comments 2.14 PT-OP-G Mobility & Gait Start: 11/15/21 15:38 Freq: Status: Active Protocol: Document 11/15/21 12:00 DCW (Rec: 11/15/21 15:58 DCW [id number]) OP Gait Assessment Gait Gait Assistance Required: Standby Assistance Distance (Feet) 257 Assistive Devices Assistive Device Straight Cane Gait Deviations General Gait Pattern Antalgic,Decreased Stride Length,Decreased Feet Clearance,Lateral Trunk Lean, Wide Based Gait Factors Limiting Gait Function Factors Limiting Gait Function Decreased Activity Tolerance, Decreased Sensation,Decreased Strength,Limited Range of Motion,Pain,Poor Balance Comments Gait Comments Pt ambulates with lateral R trunk flexion, excessive eversion bilaterally, right worse than left, although uses orthopedic shoes to increase foot stability. Pt also displays knee varus bilaterally, ambulates with toe-in bilaterally. After 2 MWT, pt noted he could not go any further due to back pain. PT-OP-H Neuro Start: 11/15/21 15:38 Freq: Status: Active Protocol: Document 11/15/21 12:00 DCW (Rec: 11/15/21 15:41 DCW [id number]) Sensation Evaluation Gross Sensation Gross Sensation Left LE Impaired,Right LE Impaired Sensation Description Numbness Location Details Right Foot Light Touch Absent Sharp/Dull Absent Deep Pressure Absent Protective Sensation Absent Proprioception (Position) Absent Kinesthesia (Movement) Impaired Left Foot Light Touch Absent Sharp/Dull Absent Deep Pressure Absent Protective Sensation Absent Proprioception (Position) Absent Kinesthesia (Movement) Impaired PT-OP-K Range of Motion Start: 11/15/21 15:38 Freq: Status: Active Protocol: Document 11/15/21 12:00 DCW (Rec: 11/15/21 15:55 DCW [id number]) Ankle and Foot Goniometric Range of Motion Ankle and Foot Right Active Testing Position Sitting Plantarflexion 30 Inversion 10 Eversion 0 Comments Dorsiflexion /c knee flexed lacking 10? from neutral Left Active Testing Position Sitting Dorsiflexion with Knee Flexed 0 Plantarflexion 50 Inversion 40 Eversion 10 PT-OP-Q Treatments Start: 11/15/21 15:38 Freq: Status: Active Protocol: Document 01/26/22 13:45 [facility] (Rec: 01/26/22 17:53 [facility] [id number]) Cardio Equipment Recumbent Stepper (Sci-Fit) Duration (Minutes) 6 Resistance 4 Seat Position 15 Other Cues for neutral LE alignment, weight through entire foot. Therapeutic Exercises Sitting Exercises calf stretch Comments HEP 2 Sitting Exercise Name Ankle DF/Ev/PF Side right Resistance Lv 2 Equipment Used T-band Comments HEP 1 Sitting Exercise Name BAPS Side right Resistance Lv 4 Reps/Minutes 10x ea Comments DF/PF, Inv/Ev, CW/CCW Manual Therapy Treatment Soft Tissue Mobilization 1 Body Location right lateral foot plantarflexor and inv Mobilization Type Myofascial Release,Sustained Pressure,Trigger Point Release Intensity/Depth Moderate Body Position Sitting Taping 1 Body Location J-strap Type of Tape [place] Lymphedema Treatment Lymphedema Wrapping Other kinsiotape fan strips (3) right foot and ankle with bases proximal toward posterior knee paper off tension, crossed anterior rutherford (1 under and 1 over J strap). PT-OP-R Modalities Start: 11/15/21 15:38 Freq: Status: Active Protocol: Document 01/26/22 13:45 [facility] (Rec: 01/26/22 17:54 [facility] [id number]) Hot Pack/Cold Pack Treatment Cold Pack Location right foot/ankle Patient Position Hooklying Treatment Duration (minutes) 10 Patient Tolerance Good Comments cryocuff for pain and edema reduction PT-OP-T Assessment and Plan Start: 11/15/21 15:38 Freq: Status: Active Protocol: Document 01/26/22 13:45 [facility] (Rec: 01/26/22 17:53 [facility] [id number]) Physical Therapy Assessment Impairments Impairments Activity Tolerance,Balance, Edema,Functional Activities, Functional Mobility,Gait,Pain, Posture,ROM,Sensation,Soft Tissue Mobility,Strength,Tone Goals Three Impairment Pt ambulates 257' during 2 MWT using SPC with fatigue Environmental Planner Goal (LTG) Pt to tolerate full 6 MWT without rest break while walking at least 600' using LRAD to show improved activity tolerance and decreasing falls risk. LTG Duration 02/13/22 Two Impairment Significantly limited right ankle ROM s/p surgical tendon transfer Environmental Planner Goal (LTG) Pt to increase R ankle AROM to DF 0? and Eversion 10?in order to allow pt to help normalize gait pattern LTG Duration 02/13/22 One Impairment Pt does not have an appropriate home exercise program Short Term Goal (STG) Pt to be independent and compliant with an appropriate HEP STG Duration goal met Environmental Planner Goal (LTG) Patient will tolerate progression of therapeutic exercises to work on flexibility, strengthening, and edema reduction of right foot and ankle. LTG Duration 02/13/22 Assessment Summary Assessment Patient saw Dr. Rosado yesterday, he asked for increased pull on J strap, he didn't have the right type of tape. Patient having more clicking and popping sensations, reports doctor not concerned with those symptoms . Physical Therapy Plan Frequency and Duration Frequency of Treatment 2x/Week Duration of Treatment 90 days Plan of Care Start Date 11/15/21 Plan of Care End Date 02/13/22 Therapeutic Interventions Therapeutic Interventions Aquatic Therapy,Balance Training,Gait Training,Home Exercise Program,Joint Mobilizations,Lymphedema Management,Manual Therapy, Patient/Caregiver Education, Self-Care/Home Management,Soft Tissue Mobilization, Therapeutic Activities, Therapeutic Exercises Next Visit Focus/Plan Next Note Type Treatment Note Next Visit Plan Continue ther ex for ROM, strengthning, balance. Manual treatment for ankle mobility, kinesiotape and McConnel taping, gait training , edema management.
--- NOTE | 2022-02-02 14:31 | PT.OTN ---
Current Diagnoses Pain in right ankle and joints of right foot (02/02/22) Stiffness of unspecified ankle, not elsewhere classified (02/02/22) Pain in right foot (02/02/22) Other abnormalities of gait and mobility (02/02/22) History of falling (02/02/22) Physical Therapy Treatment Note PT-OP-A Visit Information Start: 11/15/21 15:38 Freq: Status: Active Protocol: Document 02/02/22 13:45 DCW (Rec: 02/02/22 14:31 DCW [id number]) Out-Patient Physical Therapy Visit Information Visit Information Visit Type Treatment Note Visit Start Time 13:45 Visit Stop Time 14:30 Total Visit Minutes 45 Visit Number 17 Number of DIESEL PILE HAMMER OPERATOR Visits 0 Evaluation Information Evaluation Date 11/15/21 PT-OP-B Current Condition Start: 11/15/21 15:38 Freq: Status: Active Protocol: Document 11/15/21 12:00 DCW (Rec: 11/15/21 17:59 DCW [id number]) Current Condition History of Current Condition Onset Date Long-standing history Current Complaints Gait difficulty, ankle pain, ankle stiffness, low back pain History of Current Condition Pt is a 56 year old male very well known to this clinic presenting with a wildly complicated history. Pt had a tendon transfer surgery on his right ankle late last year in an effort to decrease his tendency to walk on the outside surface of his feet. Shortly after this, pt began to get painful blisters all over his skin and eventually was admitted to the burn [facility] in [facility] for one month, eventually being diagnosed with the autoimmune disorder bullous pemphigus. While being treated for this, there was worry about a bone infection in his foot, possibly secondary to the tendon transfer. Multiple biopsies were taken, which unfortunately then led to a severe fracture in his foot. Pt eventuually needed to have this bone fragment surgically removed. Pt returns to therapy after all of this in hopes to improve the mobility and strength of his ankle, as well as improve hiis gait and stability. Pt currently using a SPC while walking for stability. Fears his ankle has started locking up because he was unable to do much after surgery. Treatment Goals Patient/Caregiver Goals Improve ROM and stretch out his ankle, improve gait stability PT-OP-C Subjective Start: 11/15/21 15:38 Freq: Status: Active Protocol: Document 02/02/22 13:45 DCW (Rec: 02/02/22 14:31 DCW [id number]) OP-PT Subjective Patient Comments Patient Comments I saw Dr Rosado, he's happy with what we're doing. PT-OP-E Functional Tests Start: 11/15/21 15:38 Freq: Status: Active Protocol: Document 11/15/21 12:00 DCW (Rec: 11/15/21 15:55 DCW [id number]) Functional Tests 2 Minute Walk Test Distance 257' Device Used SPC Comments 2.14 PT-OP-G Mobility & Gait Start: 11/15/21 15:38 Freq: Status: Active Protocol: Document 11/15/21 12:00 DCW (Rec: 11/15/21 15:58 DCW [id number]) OP Gait Assessment Gait Gait Assistance Required: Standby Assistance Distance (Feet) 257 Assistive Devices Assistive Device Straight Cane Gait Deviations General Gait Pattern Antalgic,Decreased Stride Length,Decreased Feet Clearance,Lateral Trunk Lean, Wide Based Gait Factors Limiting Gait Function Factors Limiting Gait Function Decreased Activity Tolerance, Decreased Sensation,Decreased Strength,Limited Range of Motion,Pain,Poor Balance Comments Gait Comments Pt ambulates with lateral R trunk flexion, excessive eversion bilaterally, right worse than left, although uses orthopedic shoes to increase foot stability. Pt also displays knee varus bilaterally, ambulates with toe-in bilaterally. After 2 MWT, pt noted he could not go any further due to back pain. PT-OP-H Neuro Start: 11/15/21 15:38 Freq: Status: Active Protocol: Document 11/15/21 12:00 DCW (Rec: 11/15/21 15:41 DCW [id number]) Sensation Evaluation Gross Sensation Gross Sensation Left LE Impaired,Right LE Impaired Sensation Description Numbness Location Details Right Foot Light Touch Absent Sharp/Dull Absent Deep Pressure Absent Protective Sensation Absent Proprioception (Position) Absent Kinesthesia (Movement) Impaired Left Foot Light Touch Absent Sharp/Dull Absent Deep Pressure Absent Protective Sensation Absent Proprioception (Position) Absent Kinesthesia (Movement) Impaired PT-OP-K Range of Motion Start: 11/15/21 15:38 Freq: Status: Active Protocol: Document 11/15/21 12:00 DCW (Rec: 11/15/21 15:55 DCW [id number]) Ankle and Foot Goniometric Range of Motion Ankle and Foot Right Active Testing Position Sitting Plantarflexion 30 Inversion 10 Eversion 0 Comments Dorsiflexion /c knee flexed lacking 10? from neutral Left Active Testing Position Sitting Dorsiflexion with Knee Flexed 0 Plantarflexion 50 Inversion 40 Eversion 10 PT-OP-Q Treatments Start: 11/15/21 15:38 Freq: Status: Active Protocol: Document 02/02/22 13:45 DCW (Rec: 02/02/22 14:31 DCW [id number]) Therapeutic Exercises Sitting Exercises 1 Sitting Exercise Name BAPS Side right Resistance Lv 4 Reps/Minutes 10x ea Comments DF/PF, Inv/Ev, CW/CCW Standing Exercises Heel raises Standing Exercise Name Heel raises Side bilateral Reps/Minutes x6 Manual Therapy Treatment Soft Tissue Mobilization 1 Body Location right medial foot plantarflexor and inv Mobilization Type Myofascial Release,Sustained Pressure,Trigger Point Release Intensity/Depth Moderate Body Position Sitting Joint Mobilizations 1 Joint Talocrual Direction A->P Grade III Body Position Hooklying Taping 1 Body Location J-strap Type of Tape Jama Other Other Manual Treatments Therapist-driven PROM PT-OP-R Modalities Start: 11/15/21 15:38 Freq: Status: Active Protocol: Document 01/26/22 13:45 SAK (Rec: 01/26/22 17:54 SAK [id number]) Hot Pack/Cold Pack Treatment Cold Pack Location right foot/ankle Patient Position Hooklying Treatment Duration (minutes) 10 Patient Tolerance Good Comments cryocuff for pain and edema reduction PT-OP-T Assessment and Plan Start: 11/15/21 15:38 Freq: Status: Active Protocol: Document 02/02/22 13:45 DCW (Rec: 02/02/22 14:31 [facility] [id number]) Physical Therapy Assessment Impairments Impairments Activity Tolerance,Balance, Edema,Functional Activities, Functional Mobility,Gait,Pain, Posture,ROM,Sensation,Soft Tissue Mobility,Strength,Tone Goals Three Impairment Pt ambulates 257' during 2 MWT using SPC with fatigue Intermediate Goal (LTG) Pt to tolerate full 6 MWT without rest break while walking at least 600' using LRAD to show improved activity tolerance and decreasing falls risk. LTG Duration 02/13/22 Two Impairment Significantly limited right ankle ROM s/p surgical tendon transfer Knurling Machine Operator Goal (LTG) Pt to increase R ankle AROM to DF 0? and Eversion 10?in order to allow pt to help normalize gait pattern LTG Duration 02/13/22 One Impairment Pt does not have an appropriate home exercise program Short Term Goal (STG) Pt to be independent and compliant with an appropriate HEP STG Duration goal met Knurling Machine Operator Goal (LTG) Patient will tolerate progression of therapeutic exercises to work on flexibility, strengthening, and edema reduction of right foot and ankle. LTG Duration 02/13/22 Assessment Summary Assessment Pt clearly getting a bit frustrated with his recovery, feels like his progress has been slowing down, although both his surgeon and therapist are currently happy with progress. Pt continues to make slow progress with available ROM Physical Therapy Plan Frequency and Duration Frequency of Treatment 2x/Week Duration of Treatment 90 days Plan of Care Start Date 11/15/21 Plan of Care End Date 02/13/22 Therapeutic Interventions Therapeutic Interventions Aquatic Therapy,Balance Training,Gait Training,Home Exercise Program,Joint Mobilizations,Lymphedema Management,Manual Therapy, Patient/Caregiver Education, Self-Care/Home Management,Soft Tissue Mobilization, Therapeutic Activities, Therapeutic Exercises Next Visit Focus/Plan Next Note Type Treatment Note Next Visit Plan Continue ther ex for ROM, strengthning, balance. Manual treatment for ankle mobility, kinesiotape and McConnel taping, gait training , edema management.
--- NOTE | 2022-02-13 15:17 | PT.OTN ---
Current Diagnoses Pain in right ankle and joints of right foot (02/13/22) Stiffness of unspecified ankle, not elsewhere classified (02/13/22) Pain in right foot (02/13/22) Other abnormalities of gait and mobility (02/13/22) History of falling (02/13/22) Physical Therapy Treatment Note PT-OP-A Visit Information Start: 11/15/21 15:38 Freq: Status: Active Protocol: Document 02/13/22 14:30 DCW (Rec: 02/13/22 15:17 DCW [id number]) Out-Patient Physical Therapy Visit Information Visit Information Visit Type Treatment Note Visit Start Time 14:30 Visit Stop Time 15:15 Total Visit Minutes 45 Visit Number 18 Number of POLY PACKER AND HEAT SEALER Visits 0 Evaluation Information Evaluation Date 11/15/21 PT-OP-B Current Condition Start: 11/15/21 15:38 Freq: Status: Active Protocol: Document 11/15/21 12:00 DCW (Rec: 11/15/21 17:59 DCW [id number]) Current Condition History of Current Condition Onset Date Long-standing history Current Complaints Gait difficulty, ankle pain, ankle stiffness, low back pain History of Current Condition Pt is a 56 year old male very well known to this clinic presenting with a wildly complicated history. Pt had a tendon transfer surgery on his right ankle late last year in an effort to decrease his tendency to walk on the outside surface of his feet. Shortly after this, pt began to get painful blisters all over his skin and eventually was admitted to the burn [facility] in [facility] for one month, eventually being diagnosed with the autoimmune disorder bullous pemphigus. While being treated for this, there was worry about a bone infection in his foot, possibly secondary to the tendon transfer. Multiple biopsies were taken, which unfortunately then led to a severe fracture in his foot. Pt eventuually needed to have this bone fragment surgically removed. Pt returns to therapy after all of this in hopes to improve the mobility and strength of his ankle, as well as improve hiis gait and stability. Pt currently using a SPC while walking for stability. Fears his ankle has started locking up because he was unable to do much after surgery. Treatment Goals Patient/Caregiver Goals Improve ROM and stretch out his ankle, improve gait stability PT-OP-C Subjective Start: 11/15/21 15:38 Freq: Status: Active Protocol: Document 02/13/22 14:30 DCW (Rec: 02/13/22 15:17 DCW [id number]) OP-PT Subjective Patient Comments Patient Comments Notes he is walking pretty well in his shoes, but when barefoot it still wants to roll out. PT-OP-E Functional Tests Start: 11/15/21 15:38 Freq: Status: Active Protocol: Document 11/15/21 12:00 DCW (Rec: 11/15/21 15:55 DCW [id number]) Functional Tests 2 Minute Walk Test Distance 257' Device Used SPC Comments 2.14 PT-OP-G Mobility & Gait Start: 11/15/21 15:38 Freq: Status: Active Protocol: Document 11/15/21 12:00 DCW (Rec: 11/15/21 15:58 DCW [id number]) OP Gait Assessment Gait Gait Assistance Required: Standby Assistance Distance (Feet) 257 Assistive Devices Assistive Device Straight Cane Gait Deviations General Gait Pattern Antalgic,Decreased Stride Length,Decreased Feet Clearance,Lateral Trunk Lean, Wide Based Gait Factors Limiting Gait Function Factors Limiting Gait Function Decreased Activity Tolerance, Decreased Sensation,Decreased Strength,Limited Range of Motion,Pain,Poor Balance Comments Gait Comments Pt ambulates with lateral R trunk flexion, excessive eversion bilaterally, right worse than left, although uses orthopedic shoes to increase foot stability. Pt also displays knee varus bilaterally, ambulates with toe-in bilaterally. After 2 MWT, pt noted he could not go any further due to back pain. PT-OP-H Neuro Start: 11/15/21 15:38 Freq: Status: Active Protocol: Document 11/15/21 12:00 DCW (Rec: 11/15/21 15:41 DCW [id number]) Sensation Evaluation Gross Sensation Gross Sensation Left LE Impaired,Right LE Impaired Sensation Description Numbness Location Details Right Foot Light Touch Absent Sharp/Dull Absent Deep Pressure Absent Protective Sensation Absent Proprioception (Position) Absent Kinesthesia (Movement) Impaired Left Foot Light Touch Absent Sharp/Dull Absent Deep Pressure Absent Protective Sensation Absent Proprioception (Position) Absent Kinesthesia (Movement) Impaired PT-OP-K Range of Motion Start: 11/15/21 15:38 Freq: Status: Active Protocol: Document 11/15/21 12:00 DCW (Rec: 11/15/21 15:55 DCW [id number]) Ankle and Foot Goniometric Range of Motion Ankle and Foot Right Active Testing Position Sitting Plantarflexion 30 Inversion 10 Eversion 0 Comments Dorsiflexion /c knee flexed lacking 10? from neutral Left Active Testing Position Sitting Dorsiflexion with Knee Flexed 0 Plantarflexion 50 Inversion 40 Eversion 10 PT-OP-Q Treatments Start: 11/15/21 15:38 Freq: Status: Active Protocol: Document 02/13/22 14:30 DCW (Rec: 02/13/22 15:17 DCW [id number]) Manual Therapy Treatment Soft Tissue Mobilization 1 Body Location right medial foot plantarflexor and inv Mobilization Type Myofascial Release,Sustained Pressure,Trigger Point Release Intensity/Depth Moderate Body Position Sitting Joint Mobilizations 1 Joint Talocrual Direction A->P Grade III Body Position Hooklying Taping 1 Body Location J-strap Type of Tape Jama Other Other Manual Treatments Therapist-driven PROM PT-OP-R Modalities Start: 11/15/21 15:38 Freq: Status: Active Protocol: Document 01/26/22 13:45 SAK (Rec: 01/26/22 17:54 SAK [id number]) Hot Pack/Cold Pack Treatment Cold Pack Location right foot/ankle Patient Position Hooklying Treatment Duration (minutes) 10 Patient Tolerance Good Comments cryocuff for pain and edema reduction PT-OP-T Assessment and Plan Start: 11/15/21 15:38 Freq: Status: Active Protocol: Document 02/13/22 14:30 DCW (Rec: 02/13/22 15:17 DC [id number]) Physical Therapy Assessment Impairments Impairments Activity Tolerance,Balance, Edema,Functional Activities, Functional Mobility,Gait,Pain, Posture,ROM,Sensation,Soft Tissue Mobility,Strength,Tone Goals Three Impairment Pt ambulates 257' during 2 MWT using SPC with fatigue Fdc Goal (LTG) Pt to tolerate full 6 MWT without rest break while walking at least 600' using LRAD to show improved activity tolerance and decreasing falls risk. LTG Duration 02/13/22 Two Impairment Significantly limited right ankle ROM s/p surgical tendon transfer Blending Tank Tender Helper Goal (LTG) Pt to increase R ankle AROM to DF 0? and Eversion 10?in order to allow pt to help normalize gait pattern LTG Duration 02/13/22 One Impairment Pt does not have an appropriate home exercise program Short Term Goal (STG) Pt to be independent and compliant with an appropriate HEP STG Duration goal met Blending Tank Tender Helper Goal (LTG) Patient will tolerate progression of therapeutic exercises to work on flexibility, strengthening, and edema reduction of right foot and ankle. LTG Duration 02/13/22 Assessment Summary Assessment Pt showing improved gait today with SPC, improved ankle mobility. Reassessment and new POC required next visit. Physical Therapy Plan Frequency and Duration Frequency of Treatment 2x/Week Duration of Treatment 90 days Plan of Care Start Date 11/15/21 Plan of Care End Date 02/13/22 Therapeutic Interventions Therapeutic Interventions Aquatic Therapy,Balance Training,Gait Training,Home Exercise Program,Joint Mobilizations,Lymphedema Management,Manual Therapy, Patient/Caregiver Education, Self-Care/Home Management,Soft Tissue Mobilization, Therapeutic Activities, Therapeutic Exercises Next Visit Focus/Plan Next Note Type Progress Note Next Visit Plan New POC next visit
--- NOTE | 2022-02-17 12:57 | PT.OTN ---
Current Diagnoses Pain in right ankle and joints of right foot (02/17/22) Stiffness of unspecified ankle, not elsewhere classified (02/17/22) Pain in right foot (02/17/22) Other abnormalities of gait and mobility (02/17/22) History of falling (02/17/22) Physical Therapy Treatment Note PT-OP-A Visit Information Start: 11/15/21 15:38 Freq: Status: Active Protocol: Document 02/17/22 12:00 DCW (Rec: 02/17/22 12:50 DCW [id number]) Out-Patient Physical Therapy Visit Information Visit Information Visit Type Treatment Note Visit Start Time 12:00 Visit Stop Time 12:45 Total Visit Minutes 45 Visit Number 19 Number of HOSPICE PLAN ADMINISTRATOR Visits 0 Evaluation Information Evaluation Date 11/15/21 PT-OP-B Current Condition Start: 11/15/21 15:38 Freq: Status: Active Protocol: Document 11/15/21 12:00 DCW (Rec: 11/15/21 17:59 DCW [id number]) Current Condition History of Current Condition Onset Date Long-standing history Current Complaints Gait difficulty, ankle pain, ankle stiffness, low back pain History of Current Condition Pt is a 56 year old male very well known to this clinic presenting with a wildly complicated history. Pt had a tendon transfer surgery on his right ankle late last year in an effort to decrease his tendency to walk on the outside surface of his feet. Shortly after this, pt began to get painful blisters all over his skin and eventually was admitted to the burn [facility]iz in [facility] for one month, eventually being diagnosed with the autoimmune disorder bullous pemphigus. While being treated for this, there was worry about a bone infection in his foot, possibly secondary to the tendon transfer. Multiple biopsies were taken, which unfortunately then led to a severe fracture in his foot. Pt eventuually needed to have this bone fragment surgically removed. Pt returns to therapy after all of this in hopes to improve the mobility and strength of his ankle, as well as improve hiis gait and stability. Pt currently using a SPC while walking for stability. Fears his ankle has started locking up because he was unable to do much after surgery. Treatment Goals Patient/Caregiver Goals Improve ROM and stretch out his ankle, improve gait stability PT-OP-C Subjective Start: 11/15/21 15:38 Freq: Status: Active Protocol: Document 02/17/22 12:00 DCW (Rec: 02/17/22 12:50 DCW [id number]) OP-PT Subjective Patient Comments Patient Comments I took the tape off this morning, and first thing I did was roll my ankle. PT-OP-E Functional Tests Start: 11/15/21 15:38 Freq: Status: Active Protocol: Document 11/15/21 12:00 DCW (Rec: 11/15/21 15:55 DCW [id number]) Functional Tests 2 Minute Walk Test Distance 257' Device Used SPC Comments 2.14 PT-OP-G Mobility & Gait Start: 11/15/21 15:38 Freq: Status: Active Protocol: Document 02/17/22 12:00 DCW (Rec: 02/17/22 12:57 DCW [id number]) OP Gait Assessment Assistive Devices Assistive Device None,Straight Cane Gait Deviations General Gait Pattern Antalgic,Decreased Stride Length,Decreased Feet Clearance,Lateral Trunk Lean, Wide Based Gait Factors Limiting Gait Function Factors Limiting Gait Function Decreased Activity Tolerance, Decreased Sensation,Decreased Strength,Limited Range of Motion,Pain,Poor Balance Comments Gait Comments Pt ambulating both with SPC and AD-free, inversion of right foot less prominant than at eval. Knee varus limiting factor in ability to bring knee in line over ankle. PT-OP-H Neuro Start: 11/15/21 15:38 Freq: Status: Active Protocol: Document 02/17/22 12:00 DCW (Rec: 02/17/22 12:57 DCW [id number]) Sensation Evaluation Gross Sensation Gross Sensation Left LE Impaired,Right LE Impaired Sensation Description Numbness Location Details Right Foot Light Touch Absent Sharp/Dull Absent Deep Pressure Absent Protective Sensation Absent Proprioception (Position) Absent Kinesthesia (Movement) Impaired Left Foot Light Touch Absent Sharp/Dull Absent Deep Pressure Absent Protective Sensation Absent Proprioception (Position) Absent Kinesthesia (Movement) Impaired PT-OP-K Range of Motion Start: 11/15/21 15:38 Freq: Status: Active Protocol: Document 02/17/22 12:00 DCW (Rec: 02/17/22 12:57 DCW [id number]) Ankle and Foot Goniometric Range of Motion Ankle and Foot Right Active Testing Position Sitting Plantarflexion 30 Inversion 16 Eversion 5 Comments Dorsiflexion /c knee flexed lacking 2? from neutral PT-OP-Q Treatments Start: 11/15/21 15:38 Freq: Status: Active Protocol: Document 02/17/22 12:00 DCW (Rec: 02/17/22 12:50 DCW [id number]) Therapeutic Exercises Sitting Exercises 1 Sitting Exercise Name BAPS (standing) Side right Resistance Lv 4 Reps/Minutes 10x ea Comments DF/PF, Inv/Ev, CW/CCW Manual Therapy Treatment Soft Tissue Mobilization 1 Body Location right medial foot plantarflexor and inv Mobilization Type Myofascial Release,Sustained Pressure,Trigger Point Release Intensity/Depth Moderate Body Position Sitting Joint Mobilizations 1 Joint Talocrual Direction A->P Grade III Body Position Hooklying Taping 1 Body Location J-strap Type of Tape Evita Neuro Re-Education Treatment Balance Activities SLS Details SLS Equipment // bars Wedge Details SLS Surface 12? wedge Comments Assist with inversion Foam Details SLS Surface Blue foam PT-OP-R Modalities Start: 11/15/21 15:38 Freq: Status: Active Protocol: Document 01/26/22 13:45 SAK (Rec: 01/26/22 17:54 SAK [id number]) Hot Pack/Cold Pack Treatment Cold Pack Location right foot/ankle Patient Position Hooklying Treatment Duration (minutes) 10 Patient Tolerance Good Comments cryocuff for pain and edema reduction PT-OP-T Assessment and Plan Start: 11/15/21 15:38 Freq: Status: Active Protocol: Document 02/17/22 12:00 DCW (Rec: 02/17/22 12:50 DCW [id number]) Physical Therapy Assessment Impairments Impairments Activity Tolerance,Balance, Edema,Functional Activities, Functional Mobility,Gait,Pain, Posture,ROM,Sensation,Soft Tissue Mobility,Strength,Tone Goals Three Impairment Pt ambulates 257' during 2 MWT using SPC with fatigue Milk Driver Goal (LTG) Pt to tolerate full 6 MWT without rest break while walking at least 600' using LRAD to show improved activity tolerance and decreasing falls risk. LTG Duration 02/13/22 Two Impairment Significantly limited right ankle ROM s/p surgical tendon transfer Milk Driver Goal (LTG) Pt to increase R ankle AROM to DF 0? and Eversion 10?in order to allow pt to help normalize gait pattern LTG Duration 02/13/22 One Impairment Pt does not have an appropriate home exercise program Short Term Goal (STG) Pt to be independent and compliant with an appropriate HEP STG Duration goal met Penitentiary Goal (LTG) Patient will tolerate progression of therapeutic exercises to work on flexibility, strengthening, and edema reduction of right foot and ankle. LTG Duration 02/13/22 Assessment Summary Assessment Pt making improvement with gait, both with and without AD , and increasing PROM, although unfortunately continues to roll ankle into an inversion sprain fairly frequently when more fatigued or not paying attention. Able to perform some walking without his cane today. Pt frustrated by slow progress. Physical Therapy Plan Frequency and Duration Frequency of Treatment 2x/Week Duration of Treatment 90 days Plan of Care Start Date 02/17/22 Plan of Care End Date 05/18/22 Therapeutic Interventions Therapeutic Interventions Aquatic Therapy,Balance Training,Gait Training,Home Exercise Program,Joint Mobilizations,Lymphedema Management,Manual Therapy, Patient/Caregiver Education, Self-Care/Home Management,Soft Tissue Mobilization, Therapeutic Activities, Therapeutic Exercises Next Visit Focus/Plan Next Note Type Treatment Note Next Visit Plan P/AROM, Strengthening, Balance and stability training.
--- NOTE | 2022-02-17 12:57 | PT.OPPOC ---
Physical, Occupational & Speech Therapy At [facility] Current Diagnoses Pain in right ankle and joints of right foot (02/17/22) Stiffness of unspecified ankle, not elsewhere classified (02/17/22) Pain in right foot (02/17/22) Other abnormalities of gait and mobility (02/17/22) History of falling (02/17/22) Visit Care Team Role Provider Type Jhon Taylor MD Family Provider Physician Primary Care Provider Specialty: Internal Medicine Address: [address] [place] [address], [id number] Email: [email or web address] Terry Rosado DPM Attending Provider Non-Staff Referring Provider Specialty: Podiatry Address: [address] [place] [address], [id number] Email: Plan Of Care PT-OP-T Assessment and Plan Start: 11/15/21 15:38 Freq: Status: Active Protocol: Document 02/17/22 12:00 DCW (Rec: 02/17/22 12:50 DCW [id number]) Physical Therapy Assessment Impairments Impairments Activity Tolerance,Balance, Edema,Functional Activities, Functional Mobility,Gait,Pain, Posture,ROM,Sensation,Soft Tissue Mobility,Strength,Tone Goals Three Impairment Pt ambulates 257' during 2 MWT using SPC with fatigue Leasing Assistant Goal (LTG) Pt to tolerate full 6 MWT without rest break while walking at least 600' using LRAD to show improved activity tolerance and decreasing falls risk. LTG Duration 02/13/22 Two Impairment Significantly limited right ankle ROM s/p surgical tendon transfer Leasing Assistant Goal (LTG) Pt to increase R ankle AROM to DF 0? and Eversion 10?in order to allow pt to help normalize gait pattern LTG Duration 02/13/22 One Impairment Pt does not have an appropriate home exercise program Short Term Goal (STG) Pt to be independent and compliant with an appropriate HEP STG Duration goal met Leasing Assistant Goal (LTG) Patient will tolerate progression of therapeutic exercises to work on flexibility, strengthening, and edema reduction of right foot and ankle. LTG Duration 02/13/22 Assessment Summary Assessment Pt making improvement with gait, both with and without AD , and increasing PROM, although unfortunately continues to roll ankle into an inversion sprain fairly frequently when more fatigued or not paying attention. Able to perform some walking without his cane today. Pt frustrated by slow progress. Physical Therapy Plan Frequency and Duration Frequency of Treatment 2x/Week Duration of Treatment 90 days Plan of Care Start Date 02/17/22 Plan of Care End Date 05/18/22 Therapeutic Interventions Therapeutic Interventions Aquatic Therapy,Balance Training,Gait Training,Home Exercise Program,Joint Mobilizations,Lymphedema Management,Manual Therapy, Patient/Caregiver Education, Self-Care/Home Management,Soft Tissue Mobilization, Therapeutic Activities, Therapeutic Exercises Next Visit Focus/Plan Next Note Type Treatment Note Next Visit Plan P/AROM, Strengthening, Balance and stability training. Plan of Care Dates Plan of Care Start Date 02/17/22 Plan of Care End Date 05/18/22 Electronically Signed by: Tong Card, PT 02/17/22 1257 If you are in agreement with this Plan of Care, please return a signed and dated copy. I have reviewed this Plan of Care and certify that the skilled therapy services above are required to meet the patient?s needs. Physician Signature Date Printed Name and Credentials Clinical Instructor Signature Printed Name and Credentials
--- NOTE | 2022-02-20 13:01 | PT.OTN ---
Current Diagnoses Pain in right ankle and joints of right foot (02/20/22) Stiffness of unspecified ankle, not elsewhere classified (02/20/22) Pain in right foot (02/20/22) Other abnormalities of gait and mobility (02/20/22) History of falling (02/20/22) Physical Therapy Treatment Note PT-OP-A Visit Information Start: 11/15/21 15:38 Freq: Status: Active Protocol: Document 02/20/22 12:52 AMB (Rec: 02/20/22 13:01 AMB [id number]) Out-Patient Physical Therapy Visit Information Visit Information Visit Type Treatment Note Visit Start Time 11:15 Visit Stop Time 12:00 Total Visit Minutes 45 Visit Number 20 Number of TOOLING ENGINEER Visits 0 PT-OP-B Current Condition Start: 11/15/21 15:38 Freq: Status: Active Protocol: Document 11/15/21 12:00 DCW (Rec: 11/15/21 17:59 DCW [id number]) Current Condition History of Current Condition Onset Date Long-standing history Current Complaints Gait difficulty, ankle pain, ankle stiffness, low back pain History of Current Condition Pt is a 56 year old male very well known to this clinic presenting with a wildly complicated history. Pt had a tendon transfer surgery on his right ankle late last year in an effort to decrease his tendency to walk on the outside surface of his feet. Shortly after this, pt began to get painful blisters all over his skin and eventually was admitted to the burn [facility] in [facility] for one month, eventually being diagnosed with the autoimmune disorder bullous pemphigus. While being treated for this, there was worry about a bone infection in his foot, possibly secondary to the tendon transfer. Multiple biopsies were taken, which unfortunately then led to a severe fracture in his foot. Pt eventuually needed to have this bone fragment surgically removed. Pt returns to therapy after all of this in hopes to improve the mobility and strength of his ankle, as well as improve hiis gait and stability. Pt currently using a SPC while walking for stability. Fears his ankle has started locking up because he was unable to do much after surgery. Treatment Goals Patient/Caregiver Goals Improve ROM and stretch out his ankle, improve gait stability PT-OP-C Subjective Start: 11/15/21 15:38 Freq: Status: Active Protocol: Document 02/20/22 12:52 AMB (Rec: 02/20/22 13:01 AMB [id number]) OP-PT Subjective Patient Comments Patient Comments No ankle rolling over the weekend, does walk around the house barefoot PT-OP-E Functional Tests Start: 11/15/21 15:38 Freq: Status: Active Protocol: Document 11/15/21 12:00 DCW (Rec: 11/15/21 15:55 DCW [id number]) Functional Tests 2 Minute Walk Test Distance 257' Device Used SPC Comments 2.14 PT-OP-G Mobility & Gait Start: 11/15/21 15:38 Freq: Status: Active Protocol: Document 02/17/22 12:00 DCW (Rec: 02/17/22 12:57 DCW [id number]) OP Gait Assessment Assistive Devices Assistive Device None,Straight Cane Gait Deviations General Gait Pattern Antalgic,Decreased Stride Length,Decreased Feet Clearance,Lateral Trunk Lean, Wide Based Gait Factors Limiting Gait Function Factors Limiting Gait Function Decreased Activity Tolerance, Decreased Sensation,Decreased Strength,Limited Range of Motion,Pain,Poor Balance Comments Gait Comments Pt ambulating both with SPC and AD-free, inversion of right foot less prominant than at eval. Knee varus limiting factor in ability to bring knee in line over ankle. PT-OP-H Neuro Start: 11/15/21 15:38 Freq: Status: Active Protocol: Document 02/17/22 12:00 DCW (Rec: 02/17/22 12:57 DCW [id number]) Sensation Evaluation Gross Sensation Gross Sensation Left LE Impaired,Right LE Impaired Sensation Description Numbness Location Details Right Foot Light Touch Absent Sharp/Dull Absent Deep Pressure Absent Protective Sensation Absent Proprioception (Position) Absent Kinesthesia (Movement) Impaired Left Foot Light Touch Absent Sharp/Dull Absent Deep Pressure Absent Protective Sensation Absent Proprioception (Position) Absent Kinesthesia (Movement) Impaired PT-OP-K Range of Motion Start: 11/15/21 15:38 Freq: Status: Active Protocol: Document 02/17/22 12:00 DCW (Rec: 02/17/22 12:57 DCW [id number]) Ankle and Foot Goniometric Range of Motion Ankle and Foot Right Active Testing Position Sitting Plantarflexion 30 Inversion 16 Eversion 5 Comments Dorsiflexion /c knee flexed lacking 2? from neutral PT-OP-Q Treatments Start: 11/15/21 15:38 Freq: Status: Active Protocol: Document 02/20/22 12:52 AMB (Rec: 02/20/22 13:01 AMB [id number]) Therapeutic Exercises Sitting Exercises isometrics Sitting Exercise Name Eversion- against therapist resistance calf stretch Comments HEP Manual Therapy Treatment Soft Tissue Mobilization 1 Body Location right medial foot plantarflexor and inv Mobilization Type Myofascial Release,Sustained Pressure,Trigger Point Release Intensity/Depth Moderate Body Position Sitting Joint Mobilizations 1 Joint Talocrual Direction A->P Grade III Body Position Hooklying Taping 1 Body Location J-strap Type of Tape Evita PT-OP-R Modalities Start: 11/15/21 15:38 Freq: Status: Active Protocol: Document 01/26/22 13:45 SAK (Rec: 01/26/22 17:54 SAK [id number]) Hot Pack/Cold Pack Treatment Cold Pack Location right foot/ankle Patient Position Hooklying Treatment Duration (minutes) 10 Patient Tolerance Good Comments cryocuff for pain and edema reduction PT-OP-T Assessment and Plan Start: 11/15/21 15:38 Freq: Status: Active Protocol: Document 02/20/22 12:52 AMB (Rec: 02/20/22 13:01 AMB [id number]) Physical Therapy Assessment Goals Three Impairment Pt ambulates 257' during 2 MWT using SPC with fatigue Information Systems Security Specialist Goal (LTG) Pt to tolerate full 6 MWT without rest break while walking at least 600' using LRAD to show improved activity tolerance and decreasing falls risk. LTG Duration 02/13/22 Two Impairment Significantly limited right ankle ROM s/p surgical tendon transfer Information Systems Security Specialist Goal (LTG) Pt to increase R ankle AROM to DF 0? and Eversion 10?in order to allow pt to help normalize gait pattern LTG Duration 02/13/22 One Impairment Pt does not have an appropriate home exercise program Short Term Goal (STG) Pt to be independent and compliant with an appropriate HEP STG Duration goal met Detention Goal (LTG) Patient will tolerate progression of therapeutic exercises to work on flexibility, strengthening, and edema reduction of right foot and ankle. LTG Duration 02/13/22 Assessment Summary Assessment Pt did show better ROM throughout treatment, lena with contract relax. Did encourage avoiding barefoot, could consider house shoes, but of course custom shoes are quite expensive. Physical Therapy Plan Frequency and Duration Frequency of Treatment 2x/Week Duration of Treatment 90 days Plan of Care Start Date 02/17/22 Plan of Care End Date 05/18/22 Therapeutic Interventions Therapeutic Interventions Aquatic Therapy,Balance Training,Gait Training,Home Exercise Program,Joint Mobilizations,Lymphedema Management,Manual Therapy, Patient/Caregiver Education, Self-Care/Home Management,Soft Tissue Mobilization, Therapeutic Activities, Therapeutic Exercises Next Visit Focus/Plan Next Note Type Treatment Note Next Visit Plan P/AROM, Strengthening, Balance and stability training.
--- NOTE | 2022-03-02 10:45 | PT.OTN ---
Current Diagnoses Pain in right ankle and joints of right foot (03/02/22) Stiffness of unspecified ankle, not elsewhere classified (03/02/22) Pain in right foot (03/02/22) Other abnormalities of gait and mobility (03/02/22) History of falling (03/02/22) Physical Therapy Treatment Note PT-OP-A Visit Information Start: 11/15/21 15:38 Freq: Status: Active Protocol: Document 03/02/22 09:51 SP (Rec: 03/02/22 10:37 SP [id number]) Out-Patient Physical Therapy Visit Information Visit Information Visit Type Treatment Note Visit Note SHAY Aden observed tx with permission of pt. Visit Start Time 09:51 Visit Stop Time 10:45 Total Visit Minutes 54 Visit Number 22 Number of BANK GUARD Visits 1 Evaluation Information Evaluation Date 11/15/21 PT-OP-B Current Condition Start: 11/15/21 15:38 Freq: Status: Active Protocol: Document 11/15/21 12:00 DCW (Rec: 11/15/21 17:59 DCW [id number]) Current Condition History of Current Condition Onset Date Long-standing history Current Complaints Gait difficulty, ankle pain, ankle stiffness, low back pain History of Current Condition Pt is a 56 year old male very well known to this clinic presenting with a wildly complicated history. Pt had a tendon transfer surgery on his right ankle late last year in an effort to decrease his tendency to walk on the outside surface of his feet. Shortly after this, pt began to get painful blisters all over his skin and eventually was admitted to the burn [facility] in [facility] for one month, eventually being diagnosed with the autoimmune disorder bullous pemphigus. While being treated for this, there was worry about a bone infection in his foot, possibly secondary to the tendon transfer. Multiple biopsies were taken, which unfortunately then led to a severe fracture in his foot. Pt eventuually needed to have this bone fragment surgically removed. Pt returns to therapy after all of this in hopes to improve the mobility and strength of his ankle, as well as improve hiis gait and stability. Pt currently using a SPC while walking for stability. Fears his ankle has started locking up because he was unable to do much after surgery. Treatment Goals Patient/Caregiver Goals Improve ROM and stretch out his ankle, improve gait stability PT-OP-C Subjective Start: 11/15/21 15:38 Freq: Status: Active Protocol: Document 03/02/22 09:51 SP (Rec: 03/02/22 10:37 SP [id number]) OP-PT Subjective Patient Comments Patient Comments Pt reports the J strap didn't hold well after last tx, wants help to retape. PT-OP-E Functional Tests Start: 11/15/21 15:38 Freq: Status: Active Protocol: Document 11/15/21 12:00 DCW (Rec: 11/15/21 15:55 DCW [id number]) Functional Tests 2 Minute Walk Test Distance 257' Device Used SPC Comments 2.14 PT-OP-G Mobility & Gait Start: 11/15/21 15:38 Freq: Status: Active Protocol: Document 02/17/22 12:00 DCW (Rec: 02/17/22 12:57 DCW [id number]) OP Gait Assessment Assistive Devices Assistive Device None,Straight Cane Gait Deviations General Gait Pattern Antalgic,Decreased Stride Length,Decreased Feet Clearance,Lateral Trunk Lean, Wide Based Gait Factors Limiting Gait Function Factors Limiting Gait Function Decreased Activity Tolerance, Decreased Sensation,Decreased Strength,Limited Range of Motion,Pain,Poor Balance Comments Gait Comments Pt ambulating both with SPC and AD-free, inversion of right foot less prominant than at eval. Knee varus limiting factor in ability to bring knee in line over ankle. PT-OP-H Neuro Start: 11/15/21 15:38 Freq: Status: Active Protocol: Document 02/17/22 12:00 DCW (Rec: 02/17/22 12:57 DCW [id number]) Sensation Evaluation Gross Sensation Gross Sensation Left LE Impaired,Right LE Impaired Sensation Description Numbness Location Details Right Foot Light Touch Absent Sharp/Dull Absent Deep Pressure Absent Protective Sensation Absent Proprioception (Position) Absent Kinesthesia (Movement) Impaired Left Foot Light Touch Absent Sharp/Dull Absent Deep Pressure Absent Protective Sensation Absent Proprioception (Position) Absent Kinesthesia (Movement) Impaired PT-OP-K Range of Motion Start: 11/15/21 15:38 Freq: Status: Active Protocol: Document 02/17/22 12:00 DCW (Rec: 02/17/22 12:57 DCW [id number]) Ankle and Foot Goniometric Range of Motion Ankle and Foot Right Active Testing Position Sitting Plantarflexion 30 Inversion 16 Eversion 5 Comments Dorsiflexion /c knee flexed lacking 2? from neutral PT-OP-Q Treatments Start: 11/15/21 15:38 Freq: Status: Active Protocol: Document 03/02/22 09:51 SP (Rec: 03/02/22 10:37 SP [id number]) Cardio Equipment Recumbent Elliptical (Biodex) Duration (Minutes) 2 Resistance 6 Seat Position 15 Other cued R ankle alignment, stopped at 2 min due to B knee pain Recumbent Stepper (Sci-Fit) Duration (Minutes) 3 Resistance 4 Seat Position 15 Other Cues for neutral LE alignment, weight through entire foot, chall foot onplat Therapeutic Exercises Sitting Exercises isometrics Sitting Exercise Name Eversion Reps/Minutes 10x2 Comments against therapist resistance, shown how to do against solid object. 1 Sitting Exercise Name BAPS (standing) Side right Resistance Lv 4 Reps/Minutes 10x ea Comments DF/PF, Inv/Ev, CW/CCW Manual Therapy Treatment Joint Mobilizations 1 Joint Talocrual, fibular AP Direction A->P Grade III Body Position Hooklying Taping 2 Body Location foot/ankle 1 Body Location J-strap Type of Tape Evita PT-OP-R Modalities Start: 11/15/21 15:38 Freq: Status: Active Protocol: Document 03/02/22 09:51 SP (Rec: 03/02/22 10:37 SP [id number]) Hot Pack/Cold Pack Treatment Cold Pack Location right foot/ankle Patient Position Hooklying Treatment Duration (minutes) 10 Patient Tolerance Good Comments cryocuff for pain and edema reduction PT-OP-T Assessment and Plan Start: 11/15/21 15:38 Freq: Status: Active Protocol: Document 03/02/22 09:51 SP (Rec: 03/02/22 10:37 SP [id number]) Physical Therapy Assessment Goals Three Impairment Pt ambulates 257' during 2 MWT using SPC with fatigue Office Technology Instructor Goal (LTG) Pt to tolerate full 6 MWT without rest break while walking at least 600' using LRAD to show improved activity tolerance and decreasing falls risk. LTG Duration 05/18/22 Two Impairment Significantly limited right ankle ROM s/p surgical tendon transfer Skilled Nursing Goal (LTG) Pt to increase R ankle AROM to DF 0? and Eversion 10?in order to allow pt to help normalize gait pattern LTG Duration 05/18/22 One Impairment Pt does not have an appropriate home exercise program Short Term Goal (STG) Pt to be independent and compliant with an appropriate HEP STG Duration goal met Skilled Nursing Goal (LTG) Patient will tolerate progression of therapeutic exercises to work on flexibility, strengthening, and edema reduction of right foot and ankle. LTG Duration 05/18/22 Assessment Summary Assessment Pt reports continued benefit from manual and J taping for support Eversion alignment/ stability and K taping for edema with less noted today. Pt improves in PF into pronation on BAPS, states tries to be aware of alignment with gait, states knows uses cane that works best for him. Pt welcoming to use of modalities for help edema end tx. Physical Therapy Plan Frequency and Duration Frequency of Treatment 2x/Week Duration of Treatment 90 days Plan of Care Start Date 02/17/22 Plan of Care End Date 05/18/22 Therapeutic Interventions Therapeutic Interventions Aquatic Therapy,Balance Training,Gait Training,Home Exercise Program,Joint Mobilizations,Lymphedema Management,Manual Therapy, Patient/Caregiver Education, Self-Care/Home Management,Soft Tissue Mobilization, Therapeutic Activities, Therapeutic Exercises Next Visit Focus/Plan Next Note Type Treatment Note Next Visit Plan Continue with ROM and strengthening, edema management per POC.
--- NOTE | 2022-03-08 12:02 | PT.OTN ---
Current Diagnoses Pain in right ankle and joints of right foot (03/08/22) Stiffness of unspecified ankle, not elsewhere classified (03/08/22) Pain in right foot (03/08/22) Other abnormalities of gait and mobility (03/08/22) History of falling (03/08/22) Physical Therapy Treatment Note PT-OP-A Visit Information Start: 11/15/21 15:38 Freq: Status: Active Protocol: Document 03/08/22 11:20 DCW (Rec: 03/08/22 12:02 DCW [id number]) Out-Patient Physical Therapy Visit Information Visit Information Visit Type Treatment Note Visit Start Time 11:20 Visit Stop Time 12:00 Total Visit Minutes 40 Visit Number 23 Number of WOODEN TANK ERECTOR Visits 0 Evaluation Information Evaluation Date 11/15/21 PT-OP-B Current Condition Start: 11/15/21 15:38 Freq: Status: Active Protocol: Document 11/15/21 12:00 DCW (Rec: 11/15/21 17:59 DCW [id number]) Current Condition History of Current Condition Onset Date Long-standing history Current Complaints Gait difficulty, ankle pain, ankle stiffness, low back pain History of Current Condition Pt is a 56 year old male very well known to this clinic presenting with a wildly complicated history. Pt had a tendon transfer surgery on his right ankle late last year in an effort to decrease his tendency to walk on the outside surface of his feet. Shortly after this, pt began to get painful blisters all over his skin and eventually was admitted to the burn sol[facility] in [facility] for one month, eventually being diagnosed with the autoimmune disorder bullous pemphigus. While being treated for this, there was worry about a bone infection in his foot, possibly secondary to the tendon transfer. Multiple biopsies were taken, which unfortunately then led to a severe fracture in his foot. Pt eventuually needed to have this bone fragment surgically removed. Pt returns to therapy after all of this in hopes to improve the mobility and strength of his ankle, as well as improve hiis gait and stability. Pt currently using a SPC while walking for stability. Fears his ankle has started locking up because he was unable to do much after surgery. Treatment Goals Patient/Caregiver Goals Improve ROM and stretch out his ankle, improve gait stability PT-OP-C Subjective Start: 11/15/21 15:38 Freq: Status: Active Protocol: Document 03/08/22 11:20 DCW (Rec: 03/08/22 12:02 DCW [id number]) OP-PT Subjective Patient Comments Patient Comments Pt notes his ankle is not doing well today, has had some instances of his ankle rolling recently. PT-OP-E Functional Tests Start: 11/15/21 15:38 Freq: Status: Active Protocol: Document 11/15/21 12:00 DCW (Rec: 11/15/21 15:55 DCW [id number]) Functional Tests 2 Minute Walk Test Distance 257' Device Used SPC Comments 2.14 PT-OP-G Mobility & Gait Start: 11/15/21 15:38 Freq: Status: Active Protocol: Document 02/17/22 12:00 DCW (Rec: 02/17/22 12:57 DCW [id number]) OP Gait Assessment Assistive Devices Assistive Device None,Straight Cane Gait Deviations General Gait Pattern Antalgic,Decreased Stride Length,Decreased Feet Clearance,Lateral Trunk Lean, Wide Based Gait Factors Limiting Gait Function Factors Limiting Gait Function Decreased Activity Tolerance, Decreased Sensation,Decreased Strength,Limited Range of Motion,Pain,Poor Balance Comments Gait Comments Pt ambulating both with SPC and AD-free, inversion of right foot less prominant than at eval. Knee varus limiting factor in ability to bring knee in line over ankle. PT-OP-H Neuro Start: 11/15/21 15:38 Freq: Status: Active Protocol: Document 02/17/22 12:00 DCW (Rec: 02/17/22 12:57 DCW [id number]) Sensation Evaluation Gross Sensation Gross Sensation Left LE Impaired,Right LE Impaired Sensation Description Numbness Location Details Right Foot Light Touch Absent Sharp/Dull Absent Deep Pressure Absent Protective Sensation Absent Proprioception (Position) Absent Kinesthesia (Movement) Impaired Left Foot Light Touch Absent Sharp/Dull Absent Deep Pressure Absent Protective Sensation Absent Proprioception (Position) Absent Kinesthesia (Movement) Impaired PT-OP-K Range of Motion Start: 11/15/21 15:38 Freq: Status: Active Protocol: Document 02/17/22 12:00 DCW (Rec: 02/17/22 12:57 DCW [id number]) Ankle and Foot Goniometric Range of Motion Ankle and Foot Right Active Testing Position Sitting Plantarflexion 30 Inversion 16 Eversion 5 Comments Dorsiflexion /c knee flexed lacking 2? from neutral PT-OP-Q Treatments Start: 11/15/21 15:38 Freq: Status: Active Protocol: Document 03/08/22 11:20 DCW (Rec: 03/08/22 12:02 DCW [id number]) Therapeutic Exercises Sitting Exercises 1 Sitting Exercise Name BAPS (standing) Side right Resistance Lv 4 Reps/Minutes 10x ea Comments DF/PF, Inv/Ev, CW/CCW Standing Exercises Eversion Standing Exercise Name Isometric eversion Side right Equipment Used Ball against // bar post calf stretch Reps/Minutes 1x1min Comments ZULEIKA blue foam stand Reps/Minutes 1 min Comments cues for all 4 corners of feet in contact Manual Therapy Treatment Soft Tissue Mobilization 1 Body Location right medial foot plantarflexor and inv Mobilization Type Myofascial Release,Sustained Pressure,Trigger Point Release Intensity/Depth Moderate Body Position Sitting Joint Mobilizations 1 Joint Talocrual, fibular AP Direction A->P Grade III Body Position Hooklying Taping 1 Body Location J-strap Type of Tape Evita PT-OP-R Modalities Start: 11/15/21 15:38 Freq: Status: Active Protocol: Document 03/02/22 09:51 SP (Rec: 03/02/22 10:37 SP [id number]) Hot Pack/Cold Pack Treatment Cold Pack Location right foot/ankle Patient Position Hooklying Treatment Duration (minutes) 10 Patient Tolerance Good Comments cryocuff for pain and edema reduction PT-OP-T Assessment and Plan Start: 11/15/21 15:38 Freq: Status: Active Protocol: Document 03/08/22 11:20 DCW (Rec: 03/08/22 12:02 DCW [id number]) Physical Therapy Assessment Goals Three Impairment Pt ambulates 257' during 2 MWT using SPC with fatigue Long-Term Goal (LTG) Pt to tolerate full 6 MWT without rest break while walking at least 600' using LRAD to show improved activity tolerance and decreasing falls risk. LTG Duration 05/18/22 Two Impairment Significantly limited right ankle ROM s/p surgical tendon transfer Long-Term Goal (LTG) Pt to increase R ankle AROM to DF 0? and Eversion 10?in order to allow pt to help normalize gait pattern LTG Duration 05/18/22 One Impairment Pt does not have an appropriate home exercise program Short Term Goal (STG) Pt to be independent and compliant with an appropriate HEP STG Duration goal met Long-Term Goal (LTG) Patient will tolerate progression of therapeutic exercises to work on flexibility, strengthening, and edema reduction of right foot and ankle. LTG Duration 05/18/22 Assessment Summary Assessment Pt recent ankle rolls have increased edema, becoming frustrated that his tendon hasn't tightened up yet. Pt ambulation improved end of session compared to when he arrived today. Physical Therapy Plan Frequency and Duration Frequency of Treatment 2x/Week Duration of Treatment 90 days Plan of Care Start Date 02/17/22 Plan of Care End Date 05/18/22 Therapeutic Interventions Therapeutic Interventions Aquatic Therapy,Balance Training,Gait Training,Home Exercise Program,Joint Mobilizations,Lymphedema Management,Manual Therapy, Patient/Caregiver Education, Self-Care/Home Management,Soft Tissue Mobilization, Therapeutic Activities, Therapeutic Exercises Next Visit Focus/Plan Next Note Type Treatment Note Next Visit Plan Continue with ROM and strengthening, edema management per POC.
--- NOTE | 2022-03-16 14:28 | PT.OTN ---
Current Diagnoses Pain in right ankle and joints of right foot (03/16/22) Stiffness of unspecified ankle, not elsewhere classified (03/16/22) Pain in right foot (03/16/22) Other abnormalities of gait and mobility (03/16/22) History of falling (03/16/22) Physical Therapy Treatment Note PT-OP-A Visit Information Start: 11/15/21 15:38 Freq: Status: Active Protocol: Document 03/16/22 13:45 DCW (Rec: 03/16/22 14:27 DCW [id number]) Out-Patient Physical Therapy Visit Information Visit Information Visit Type Treatment Note Visit Start Time 13:45 Visit Stop Time 14:30 Total Visit Minutes 45 Visit Number 24 Number of BUS DRIVER SUPERVISOR Visits 0 Evaluation Information Evaluation Date 11/15/21 PT-OP-B Current Condition Start: 11/15/21 15:38 Freq: Status: Active Protocol: Document 11/15/21 12:00 DCW (Rec: 11/15/21 17:59 DCW [id number]) Current Condition History of Current Condition Onset Date Long-standing history Current Complaints Gait difficulty, ankle pain, ankle stiffness, low back pain History of Current Condition Pt is a 56 year old male very well known to this clinic presenting with a wildly complicated history. Pt had a tendon transfer surgery on his right ankle late last year in an effort to decrease his tendency to walk on the outside surface of his feet. Shortly after this, pt began to get painful blisters all over his skin and eventually was admitted to the burn [facility] in [facility] for one month, eventually being diagnosed with the autoimmune disorder bullous pemphigus. While being treated for this, there was worry about a bone infection in his foot, possibly secondary to the tendon transfer. Multiple biopsies were taken, which unfortunately then led to a severe fracture in his foot. Pt eventuually needed to have this bone fragment surgically removed. Pt returns to therapy after all of this in hopes to improve the mobility and strength of his ankle, as well as improve hiis gait and stability. Pt currently using a SPC while walking for stability. Fears his ankle has started locking up because he was unable to do much after surgery. Treatment Goals Patient/Caregiver Goals Improve ROM and stretch out his ankle, improve gait stability PT-OP-C Subjective Start: 11/15/21 15:38 Freq: Status: Active Protocol: Document 03/16/22 13:45 DCW (Rec: 03/16/22 14:27 DCW [id number]) OP-PT Subjective Patient Comments Patient Comments I feel like I've been fighting against the shoes now . PT-OP-E Functional Tests Start: 11/15/21 15:38 Freq: Status: Active Protocol: Document 11/15/21 12:00 DCW (Rec: 11/15/21 15:55 DCW [id number]) Functional Tests 2 Minute Walk Test Distance 257' Device Used SPC Comments 2.14 PT-OP-G Mobility & Gait Start: 11/15/21 15:38 Freq: Status: Active Protocol: Document 02/17/22 12:00 DCW (Rec: 02/17/22 12:57 DCW [id number]) OP Gait Assessment Assistive Devices Assistive Device None,Straight Cane Gait Deviations General Gait Pattern Antalgic,Decreased Stride Length,Decreased Feet Clearance,Lateral Trunk Lean, Wide Based Gait Factors Limiting Gait Function Factors Limiting Gait Function Decreased Activity Tolerance, Decreased Sensation,Decreased Strength,Limited Range of Motion,Pain,Poor Balance Comments Gait Comments Pt ambulating both with SPC and AD-free, inversion of right foot less prominant than at eval. Knee varus limiting factor in ability to bring knee in line over ankle. PT-OP-H Neuro Start: 11/15/21 15:38 Freq: Status: Active Protocol: Document 02/17/22 12:00 DCW (Rec: 02/17/22 12:57 DCW [id number]) Sensation Evaluation Gross Sensation Gross Sensation Left LE Impaired,Right LE Impaired Sensation Description Numbness Location Details Right Foot Light Touch Absent Sharp/Dull Absent Deep Pressure Absent Protective Sensation Absent Proprioception (Position) Absent Kinesthesia (Movement) Impaired Left Foot Light Touch Absent Sharp/Dull Absent Deep Pressure Absent Protective Sensation Absent Proprioception (Position) Absent Kinesthesia (Movement) Impaired PT-OP-K Range of Motion Start: 11/15/21 15:38 Freq: Status: Active Protocol: Document 02/17/22 12:00 DCW (Rec: 02/17/22 12:57 DCW [id number]) Ankle and Foot Goniometric Range of Motion Ankle and Foot Right Active Testing Position Sitting Plantarflexion 30 Inversion 16 Eversion 5 Comments Dorsiflexion /c knee flexed lacking 2? from neutral PT-OP-Q Treatments Start: 11/15/21 15:38 Freq: Status: Active Protocol: Document 03/16/22 13:45 DCW (Rec: 03/16/22 14:27 DCW [id number]) Therapeutic Exercises Sitting Exercises 1 Sitting Exercise Name BAPS (standing) Side right Resistance Lv 4 Reps/Minutes 10x ea Comments DF/PF, Inv/Ev, CW/CCW Standing Exercises Eversion Standing Exercise Name Isometric eversion Side right Equipment Used Ball against // bar post Manual Therapy Treatment Soft Tissue Mobilization 1 Body Location right medial foot plantarflexor and inv Mobilization Type Myofascial Release,Sustained Pressure,Trigger Point Release Intensity/Depth Moderate Body Position Sitting Joint Mobilizations 1 Joint Talocrual, fibular AP Direction A->P Grade III Body Position Hooklying Taping 1 Body Location J-strap Type of Tape Evita PT-OP-R Modalities Start: 11/15/21 15:38 Freq: Status: Active Protocol: Document 03/02/22 09:51 SP (Rec: 03/02/22 10:37 SP [id number]) Hot Pack/Cold Pack Treatment Cold Pack Location right foot/ankle Patient Position Hooklying Treatment Duration (minutes) 10 Patient Tolerance Good Comments cryocuff for pain and edema reduction PT-OP-T Assessment and Plan Start: 11/15/21 15:38 Freq: Status: Active Protocol: Document 03/16/22 13:45 DCW (Rec: 03/16/22 14:27 DCW [id number]) Physical Therapy Assessment Goals Three Impairment Pt ambulates 257' during 2 MWT using SPC with fatigue Mcfp Goal (LTG) Pt to tolerate full 6 MWT without rest break while walking at least 600' using LRAD to show improved activity tolerance and decreasing falls risk. LTG Duration 05/18/22 Two Impairment Significantly limited right ankle ROM s/p surgical tendon transfer Mcfp Goal (LTG) Pt to increase R ankle AROM to DF 0? and Eversion 10?in order to allow pt to help normalize gait pattern LTG Duration 05/18/22 One Impairment Pt does not have an appropriate home exercise program Short Term Goal (STG) Pt to be independent and compliant with an appropriate HEP STG Duration goal met Mcfp Goal (LTG) Patient will tolerate progression of therapeutic exercises to work on flexibility, strengthening, and edema reduction of right foot and ankle. LTG Duration 05/18/22 Assessment Summary Assessment Pt showing some increased range of motion and decreased edema today, feeling slight optimism regarding mobility. Physical Therapy Plan Frequency and Duration Frequency of Treatment 2x/Week Duration of Treatment 90 days Plan of Care Start Date 02/17/22 Plan of Care End Date 05/18/22 Therapeutic Interventions Therapeutic Interventions Aquatic Therapy,Balance Training,Gait Training,Home Exercise Program,Joint Mobilizations,Lymphedema Management,Manual Therapy, Patient/Caregiver Education, Self-Care/Home Management,Soft Tissue Mobilization, Therapeutic Activities, Therapeutic Exercises Next Visit Focus/Plan Next Note Type Treatment Note Next Visit Plan Continue with ROM and strengthening, edema management per POC.
--- NOTE | 2022-03-21 11:17 | PT.OTN ---
Current Diagnoses Pain in right ankle and joints of right foot (03/21/22) Stiffness of unspecified ankle, not elsewhere classified (03/21/22) Pain in right foot (03/21/22) Other abnormalities of gait and mobility (03/21/22) History of falling (03/21/22) Physical Therapy Treatment Note PT-OP-A Visit Information Start: 11/15/21 15:38 Freq: Status: Active Protocol: Document 03/21/22 10:30 DCW (Rec: 03/21/22 11:17 DCW [id number]) Out-Patient Physical Therapy Visit Information Visit Information Visit Type Treatment Note Visit Start Time 10:30 Visit Stop Time 11:15 Total Visit Minutes 45 Visit Number 25 Number of DIRECTOR OF CURRICULUM Visits 0 Evaluation Information Evaluation Date 11/15/21 PT-OP-B Current Condition Start: 11/15/21 15:38 Freq: Status: Active Protocol: Document 11/15/21 12:00 DCW (Rec: 11/15/21 17:59 DCW [id number]) Current Condition History of Current Condition Onset Date Long-standing history Current Complaints Gait difficulty, ankle pain, ankle stiffness, low back pain History of Current Condition Pt is a 56 year old male very well known to this clinic presenting with a wildly complicated history. Pt had a tendon transfer surgery on his right ankle late last year in an effort to decrease his tendency to walk on the outside surface of his feet. Shortly after this, pt began to get painful blisters all over his skin and eventually was admitted to the burn [facility] in [facility] for one month, eventually being diagnosed with the autoimmune disorder bullous pemphigus. While being treated for this, there was worry about a bone infection in his foot, possibly secondary to the tendon transfer. Multiple biopsies were taken, which unfortunately then led to a severe fracture in his foot. Pt eventuually needed to have this bone fragment surgically removed. Pt returns to therapy after all of this in hopes to improve the mobility and strength of his ankle, as well as improve hiis gait and stability. Pt currently using a SPC while walking for stability. Fears his ankle has started locking up because he was unable to do much after surgery. Treatment Goals Patient/Caregiver Goals Improve ROM and stretch out his ankle, improve gait stability PT-OP-C Subjective Start: 11/15/21 15:38 Freq: Status: Active Protocol: Document 03/21/22 10:30 DCW (Rec: 03/21/22 11:17 DCW [id number]) OP-PT Subjective Patient Comments Patient Comments It's feeling better today, yesterday I rolled the hell out of it. PT-OP-E Functional Tests Start: 11/15/21 15:38 Freq: Status: Active Protocol: Document 11/15/21 12:00 DCW (Rec: 11/15/21 15:55 DCW [id number]) Functional Tests 2 Minute Walk Test Distance 257' Device Used SPC Comments 2.14 PT-OP-G Mobility & Gait Start: 11/15/21 15:38 Freq: Status: Active Protocol: Document 02/17/22 12:00 DCW (Rec: 02/17/22 12:57 DCW [id number]) OP Gait Assessment Assistive Devices Assistive Device None,Straight Cane Gait Deviations General Gait Pattern Antalgic,Decreased Stride Length,Decreased Feet Clearance,Lateral Trunk Lean, Wide Based Gait Factors Limiting Gait Function Factors Limiting Gait Function Decreased Activity Tolerance, Decreased Sensation,Decreased Strength,Limited Range of Motion,Pain,Poor Balance Comments Gait Comments Pt ambulating both with SPC and AD-free, inversion of right foot less prominant than at eval. Knee varus limiting factor in ability to bring knee in line over ankle. PT-OP-H Neuro Start: 11/15/21 15:38 Freq: Status: Active Protocol: Document 02/17/22 12:00 DCW (Rec: 02/17/22 12:57 DCW [id number]) Sensation Evaluation Gross Sensation Gross Sensation Left LE Impaired,Right LE Impaired Sensation Description Numbness Location Details Right Foot Light Touch Absent Sharp/Dull Absent Deep Pressure Absent Protective Sensation Absent Proprioception (Position) Absent Kinesthesia (Movement) Impaired Left Foot Light Touch Absent Sharp/Dull Absent Deep Pressure Absent Protective Sensation Absent Proprioception (Position) Absent Kinesthesia (Movement) Impaired PT-OP-K Range of Motion Start: 11/15/21 15:38 Freq: Status: Active Protocol: Document 02/17/22 12:00 DCW (Rec: 02/17/22 12:57 DCW [id number]) Ankle and Foot Goniometric Range of Motion Ankle and Foot Right Active Testing Position Sitting Plantarflexion 30 Inversion 16 Eversion 5 Comments Dorsiflexion /c knee flexed lacking 2? from neutral PT-OP-Q Treatments Start: 11/15/21 15:38 Freq: Status: Active Protocol: Document 03/21/22 10:30 DCW (Rec: 03/21/22 11:17 DCW [id number]) Therapeutic Exercises Sitting Exercises 1 Sitting Exercise Name BAPS (standing) Side right Resistance Lv 4 Reps/Minutes 10x ea Comments DF/PF, Inv/Ev, CW/CCW Standing Exercises blue foam stand Reps/Minutes 3 min Comments cues for all 4 corners of feet in contact Manual Therapy Treatment Soft Tissue Mobilization 1 Body Location right medial foot plantarflexor and inv Mobilization Type Myofascial Release,Sustained Pressure,Trigger Point Release Intensity/Depth Moderate Body Position Sitting Joint Mobilizations 1 Joint Talocrual, fibular AP Direction A->P Grade III Body Position Hooklying Taping 1 Body Location J-strap Type of Tape Evita PT-OP-R Modalities Start: 11/15/21 15:38 Freq: Status: Active Protocol: Document 03/02/22 09:51 SP (Rec: 03/02/22 10:37 SP [id number]) Hot Pack/Cold Pack Treatment Cold Pack Location right foot/ankle Patient Position Hooklying Treatment Duration (minutes) 10 Patient Tolerance Good Comments cryocuff for pain and edema reduction PT-OP-T Assessment and Plan Start: 11/15/21 15:38 Freq: Status: Active Protocol: Document 03/21/22 10:30 DCW (Rec: 03/21/22 11:17 DCW [id number]) Physical Therapy Assessment Goals Three Impairment Pt ambulates 257' during 2 MWT using SPC with fatigue Stacking Machine Operator Goal (LTG) Pt to tolerate full 6 MWT without rest break while walking at least 600' using LRAD to show improved activity tolerance and decreasing falls risk. LTG Duration 05/18/22 Two Impairment Significantly limited right ankle ROM s/p surgical tendon transfer Alf Goal (LTG) Pt to increase R ankle AROM to DF 0? and Eversion 10?in order to allow pt to help normalize gait pattern LTG Duration 05/18/22 One Impairment Pt does not have an appropriate home exercise program Short Term Goal (STG) Pt to be independent and compliant with an appropriate HEP STG Duration goal met Stacking Machine Operator Goal (LTG) Patient will tolerate progression of therapeutic exercises to work on flexibility, strengthening, and edema reduction of right foot and ankle. LTG Duration 05/18/22 Assessment Summary Assessment Improving mobility of ankle, however pt appear to be having inversion sprains with increasing frequency, has an appointment with the circuit clerk later this week to discuss shoes. Physical Therapy Plan Frequency and Duration Frequency of Treatment 2x/Week Duration of Treatment 90 days Plan of Care Start Date 02/17/22 Plan of Care End Date 05/18/22 Therapeutic Interventions Therapeutic Interventions Aquatic Therapy,Balance Training,Gait Training,Home Exercise Program,Joint Mobilizations,Lymphedema Management,Manual Therapy, Patient/Caregiver Education, Self-Care/Home Management,Soft Tissue Mobilization, Therapeutic Activities, Therapeutic Exercises Next Visit Focus/Plan Next Note Type Treatment Note Next Visit Plan Continue with ROM and strengthening, edema management per POC.
--- NOTE | 2022-03-24 12:16 | PT.OTN ---
Current Diagnoses Pain in right ankle and joints of right foot (03/24/22) Stiffness of unspecified ankle, not elsewhere classified (03/24/22) Pain in right foot (03/24/22) Other abnormalities of gait and mobility (03/24/22) History of falling (03/24/22) Physical Therapy Treatment Note PT-OP-A Visit Information Start: 11/15/21 15:38 Freq: Status: Active Protocol: Document 03/24/22 11:40 DCW (Rec: 03/24/22 12:16 DCW [id number]) Out-Patient Physical Therapy Visit Information Visit Information Visit Type Treatment Note Visit Note Pt arrived in preparation for a 10:30 appointment, was told he had an 11:15, decided to leave and come back, but there was a miscommunication and pt thought he heard 11:50, not 11:15, and therefore arrived 25 minutes late. Visit Start Time 11:40 Visit Stop Time 12:00 Total Visit Minutes 20 Visit Number 26 Number of ENGRAVER MACHINE Visits 0 Evaluation Information Evaluation Date 11/15/21 PT-OP-B Current Condition Start: 11/15/21 15:38 Freq: Status: Active Protocol: Document 11/15/21 12:00 DCW (Rec: 11/15/21 17:59 DCW [id number]) Current Condition History of Current Condition Onset Date Long-standing history Current Complaints Gait difficulty, ankle pain, ankle stiffness, low back pain History of Current Condition Pt is a 56 year old male very well known to this clinic presenting with a wildly complicated history. Pt had a tendon transfer surgery on his right ankle late last year in an effort to decrease his tendency to walk on the outside surface of his feet. Shortly after this, pt began to get painful blisters all over his skin and eventually was admitted to the burn sol[facility] in [facility] for one month, eventually being diagnosed with the autoimmune disorder bullous pemphigus. While being treated for this, there was worry about a bone infection in his foot, possibly secondary to the tendon transfer. Multiple biopsies were taken, which unfortunately then led to a severe fracture in his foot. Pt eventuually needed to have this bone fragment surgically removed. Pt returns to therapy after all of this in hopes to improve the mobility and strength of his ankle, as well as improve hiis gait and stability. Pt currently using a SPC while walking for stability. Fears his ankle has started locking up because he was unable to do much after surgery. Treatment Goals Patient/Caregiver Goals Improve ROM and stretch out his ankle, improve gait stability PT-OP-C Subjective Start: 11/15/21 15:38 Freq: Status: Active Protocol: Document 03/24/22 11:40 DCW (Rec: 03/24/22 12:16 DCW [id number]) OP-PT Subjective Patient Comments Patient Comments Pt struggling more with walking, his ankle is rolling out in ths shoe, increased swelling today. PT-OP-E Functional Tests Start: 11/15/21 15:38 Freq: Status: Active Protocol: Document 11/15/21 12:00 DCW (Rec: 11/15/21 15:55 DCW [id number]) Functional Tests 2 Minute Walk Test Distance 257' Device Used SPC Comments 2.14 PT-OP-G Mobility & Gait Start: 11/15/21 15:38 Freq: Status: Active Protocol: Document 02/17/22 12:00 DCW (Rec: 02/17/22 12:57 DCW [id number]) OP Gait Assessment Assistive Devices Assistive Device None,Straight Cane Gait Deviations General Gait Pattern Antalgic,Decreased Stride Length,Decreased Feet Clearance,Lateral Trunk Lean, Wide Based Gait Factors Limiting Gait Function Factors Limiting Gait Function Decreased Activity Tolerance, Decreased Sensation,Decreased Strength,Limited Range of Motion,Pain,Poor Balance Comments Gait Comments Pt ambulating both with SPC and AD-free, inversion of right foot less prominant than at eval. Knee varus limiting factor in ability to bring knee in line over ankle. PT-OP-H Neuro Start: 11/15/21 15:38 Freq: Status: Active Protocol: Document 02/17/22 12:00 DCW (Rec: 02/17/22 12:57 DCW [id number]) Sensation Evaluation Gross Sensation Gross Sensation Left LE Impaired,Right LE Impaired Sensation Description Numbness Location Details Right Foot Light Touch Absent Sharp/Dull Absent Deep Pressure Absent Protective Sensation Absent Proprioception (Position) Absent Kinesthesia (Movement) Impaired Left Foot Light Touch Absent Sharp/Dull Absent Deep Pressure Absent Protective Sensation Absent Proprioception (Position) Absent Kinesthesia (Movement) Impaired PT-OP-K Range of Motion Start: 11/15/21 15:38 Freq: Status: Active Protocol: Document 02/17/22 12:00 DCW (Rec: 02/17/22 12:57 DCW [id number]) Ankle and Foot Goniometric Range of Motion Ankle and Foot Right Active Testing Position Sitting Plantarflexion 30 Inversion 16 Eversion 5 Comments Dorsiflexion /c knee flexed lacking 2? from neutral PT-OP-Q Treatments Start: 11/15/21 15:38 Freq: Status: Active Protocol: Document 03/24/22 11:40 DCW (Rec: 03/24/22 12:16 DCW [id number]) Manual Therapy Treatment Soft Tissue Mobilization 1 Body Location right medial foot plantarflexor and inv Mobilization Type Myofascial Release,Sustained Pressure,Trigger Point Release Intensity/Depth Moderate Body Position Sitting Joint Mobilizations 1 Joint Talocrual, fibular AP Direction A->P Grade III Body Position Hooklying Taping 1 Body Location J-strap Type of Tape Evita PT-OP-R Modalities Start: 11/15/21 15:38 Freq: Status: Active Protocol: Document 03/02/22 09:51 SP (Rec: 03/02/22 10:37 SP [id number]) Hot Pack/Cold Pack Treatment Cold Pack Location right foot/ankle Patient Position Hooklying Treatment Duration (minutes) 10 Patient Tolerance Good Comments cryocuff for pain and edema reduction PT-OP-T Assessment and Plan Start: 11/15/21 15:38 Freq: Status: Active Protocol: Document 03/24/22 11:40 DCW (Rec: 03/24/22 12:16 DCW [id number]) Physical Therapy Assessment Goals Three Impairment Pt ambulates 257' during 2 MWT using SPC with fatigue Intermediate Goal (LTG) Pt to tolerate full 6 MWT without rest break while walking at least 600' using LRAD to show improved activity tolerance and decreasing falls risk. LTG Duration 05/18/22 Two Impairment Significantly limited right ankle ROM s/p surgical tendon transfer Pcas Goal (LTG) Pt to increase R ankle AROM to DF 0? and Eversion 10?in order to allow pt to help normalize gait pattern LTG Duration 05/18/22 One Impairment Pt does not have an appropriate home exercise program Short Term Goal (STG) Pt to be independent and compliant with an appropriate HEP STG Duration goal met Intermediate Goal (LTG) Patient will tolerate progression of therapeutic exercises to work on flexibility, strengthening, and edema reduction of right foot and ankle. LTG Duration 05/18/22 Assessment Summary Assessment Spent time today discussing potential of bracing or more supportive shoes. Pt currently wearing a custom orthotic shoe, which seems to have run its course, and is potentially increasing his ankle rolling laterally. Minimal time today due to appointment confusion, focused on manual and taping. Physical Therapy Plan Frequency and Duration Frequency of Treatment 2x/Week Duration of Treatment 90 days Plan of Care Start Date 02/17/22 Plan of Care End Date 05/18/22 Therapeutic Interventions Therapeutic Interventions Aquatic Therapy,Balance Training,Gait Training,Home Exercise Program,Joint Mobilizations,Lymphedema Management,Manual Therapy, Patient/Caregiver Education, Self-Care/Home Management,Soft Tissue Mobilization, Therapeutic Activities, Therapeutic Exercises Next Visit Focus/Plan Next Note Type Treatment Note Next Visit Plan Continue with ROM and strengthening, edema management per POC.
--- NOTE | 2022-03-30 11:14 | PT.OTN ---
Current Diagnoses Pain in right ankle and joints of right foot (03/30/22) Stiffness of unspecified ankle, not elsewhere classified (03/30/22) Pain in right foot (03/30/22) Other abnormalities of gait and mobility (03/30/22) History of falling (03/30/22) Physical Therapy Treatment Note PT-OP-A Visit Information Start: 11/15/21 15:38 Freq: Status: Active Protocol: Document 03/30/22 10:32 AW (Rec: 03/30/22 11:14 AW [id number]) Out-Patient Physical Therapy Visit Information Visit Information Visit Type Treatment Note Visit Start Time 10:30 Visit Stop Time 11:10 Total Visit Minutes 40 Visit Number 27 Number of CODE ENFORCEMENT SUPERVISOR Visits 0 Evaluation Information Evaluation Date 11/15/21 PT-OP-B Current Condition Start: 11/15/21 15:38 Freq: Status: Active Protocol: Document 11/15/21 12:00 DCW (Rec: 11/15/21 17:59 DCW [id number]) Current Condition History of Current Condition Onset Date Long-standing history Current Complaints Gait difficulty, ankle pain, ankle stiffness, low back pain History of Current Condition Pt is a 56 year old male very well known to this clinic presenting with a wildly complicated history. Pt had a tendon transfer surgery on his right ankle late last year in an effort to decrease his tendency to walk on the outside surface of his feet. Shortly after this, pt began to get painful blisters all over his skin and eventually was admitted to the burn soliz in [facility] for one month, eventually being diagnosed with the autoimmune disorder bullous pemphigus. While being treated for this, there was worry about a bone infection in his foot, possibly secondary to the tendon transfer. Multiple biopsies were taken, which unfortunately then led to a severe fracture in his foot. Pt eventuually needed to have this bone fragment surgically removed. Pt returns to therapy after all of this in hopes to improve the mobility and strength of his ankle, as well as improve hiis gait and stability. Pt currently using a SPC while walking for stability. Fears his ankle has started locking up because he was unable to do much after surgery. Treatment Goals Patient/Caregiver Goals Improve ROM and stretch out his ankle, improve gait stability PT-OP-C Subjective Start: 11/15/21 15:38 Freq: Status: Active Protocol: Document 03/30/22 10:32 AW (Rec: 03/30/22 11:14 AW [id number]) OP-PT Subjective Patient Comments Patient Comments Pt feeling really stiff, hoping to get re-taped today because he feels it helps. PT-OP-E Functional Tests Start: 11/15/21 15:38 Freq: Status: Active Protocol: Document 11/15/21 12:00 DCW (Rec: 11/15/21 15:55 DCW [id number]) Functional Tests 2 Minute Walk Test Distance 257' Device Used SPC Comments 2.14 PT-OP-G Mobility & Gait Start: 11/15/21 15:38 Freq: Status: Active Protocol: Document 02/17/22 12:00 DCW (Rec: 02/17/22 12:57 DCW [id number]) OP Gait Assessment Assistive Devices Assistive Device None,Straight Cane Gait Deviations General Gait Pattern Antalgic,Decreased Stride Length,Decreased Feet Clearance,Lateral Trunk Lean, Wide Based Gait Factors Limiting Gait Function Factors Limiting Gait Function Decreased Activity Tolerance, Decreased Sensation,Decreased Strength,Limited Range of Motion,Pain,Poor Balance Comments Gait Comments Pt ambulating both with SPC and AD-free, inversion of right foot less prominant than at eval. Knee varus limiting factor in ability to bring knee in line over ankle. PT-OP-H Neuro Start: 11/15/21 15:38 Freq: Status: Active Protocol: Document 02/17/22 12:00 DCW (Rec: 02/17/22 12:57 DCW [id number]) Sensation Evaluation Gross Sensation Gross Sensation Left LE Impaired,Right LE Impaired Sensation Description Numbness Location Details Right Foot Light Touch Absent Sharp/Dull Absent Deep Pressure Absent Protective Sensation Absent Proprioception (Position) Absent Kinesthesia (Movement) Impaired Left Foot Light Touch Absent Sharp/Dull Absent Deep Pressure Absent Protective Sensation Absent Proprioception (Position) Absent Kinesthesia (Movement) Impaired PT-OP-K Range of Motion Start: 11/15/21 15:38 Freq: Status: Active Protocol: Document 02/17/22 12:00 DCW (Rec: 02/17/22 12:57 DCW [id number]) Ankle and Foot Goniometric Range of Motion Ankle and Foot Right Active Testing Position Sitting Plantarflexion 30 Inversion 16 Eversion 5 Comments Dorsiflexion /c knee flexed lacking 2? from neutral PT-OP-Q Treatments Start: 11/15/21 15:38 Freq: Status: Active Protocol: Document 03/30/22 10:32 AW (Rec: 03/30/22 11:14 AW [id number]) Cardio Equipment Recumbent Elliptical (Biodex) Duration (Minutes) 2 Resistance 6 Seat Position 15 Other cued R ankle alignment, stopped at 2 min due to B knee pain Manual Therapy Treatment Soft Tissue Mobilization 1 Body Location right medial foot plantarflexor and inv Mobilization Type Myofascial Release,Sustained Pressure,Trigger Point Release Intensity/Depth Moderate Body Position Sitting Joint Mobilizations 2 Joint forefoot, inter-MT 1 Joint Talocrual, fibular AP Direction A->P Grade III Body Position Hooklying Taping 1 Body Location J-strap Type of Tape Jama PT-OP-R Modalities Start: 11/15/21 15:38 Freq: Status: Active Protocol: Document 03/02/22 09:51 SP (Rec: 03/02/22 10:37 SP [id number]) Hot Pack/Cold Pack Treatment Cold Pack Location right foot/ankle Patient Position Hooklying Treatment Duration (minutes) 10 Patient Tolerance Good Comments cryocuff for pain and edema reduction PT-OP-T Assessment and Plan Start: 11/15/21 15:38 Freq: Status: Active Protocol: Document 03/30/22 10:32 AW (Rec: 03/30/22 11:14 AW [id number]) Physical Therapy Assessment Goals Three Impairment Pt ambulates 257' during 2 MWT using SPC with fatigue Longterm Goal (LTG) Pt to tolerate full 6 MWT without rest break while walking at least 600' using LRAD to show improved activity tolerance and decreasing falls risk. LTG Duration 05/18/22 Two Impairment Significantly limited right ankle ROM s/p surgical tendon transfer Longterm Goal (LTG) Pt to increase R ankle AROM to DF 0? and Eversion 10?in order to allow pt to help normalize gait pattern LTG Duration 05/18/22 One Impairment Pt does not have an appropriate home exercise program Short Term Goal (STG) Pt to be independent and compliant with an appropriate HEP STG Duration goal met Longterm Goal (LTG) Patient will tolerate progression of therapeutic exercises to work on flexibility, strengthening, and edema reduction of right foot and ankle. LTG Duration 05/18/22 Assessment Summary Assessment Pt arrives with custom shoe six months old which is clearly worn through. Discussed likely need for bracing to improve ankle mechanics as well as to increase useful life of shoes. Physical Therapy Plan Frequency and Duration Frequency of Treatment 2x/Week Duration of Treatment 90 days Plan of Care Start Date 02/17/22 Plan of Care End Date 05/18/22 Therapeutic Interventions Therapeutic Interventions Aquatic Therapy,Balance Training,Gait Training,Home Exercise Program,Joint Mobilizations,Lymphedema Management,Manual Therapy, Patient/Caregiver Education, Self-Care/Home Management,Soft Tissue Mobilization, Therapeutic Activities, Therapeutic Exercises Next Visit Focus/Plan Next Note Type Treatment Note Next Visit Plan Continue with ROM and strengthening, edema management per POC.
--- NOTE | 2022-03-31 11:18 | PT.OTN ---
Current Diagnoses Pain in right ankle and joints of right foot (03/31/22) Stiffness of unspecified ankle, not elsewhere classified (03/31/22) Pain in right foot (03/31/22) Other abnormalities of gait and mobility (03/31/22) History of falling (03/31/22) Physical Therapy Treatment Note PT-OP-A Visit Information Start: 11/15/21 15:38 Freq: Status: Active Protocol: Document 03/31/22 10:30 DCW (Rec: 03/31/22 11:18 DCW [id number]) Out-Patient Physical Therapy Visit Information Visit Information Visit Type Treatment Note Visit Start Time 10:30 Visit Stop Time 11:15 Total Visit Minutes 45 Visit Number 28 Number of PAPER CUTTER Visits 0 Evaluation Information Evaluation Date 11/15/21 PT-OP-B Current Condition Start: 11/15/21 15:38 Freq: Status: Active Protocol: Document 11/15/21 12:00 DCW (Rec: 11/15/21 17:59 DCW [id number]) Current Condition History of Current Condition Onset Date Long-standing history Current Complaints Gait difficulty, ankle pain, ankle stiffness, low back pain History of Current Condition Pt is a 56 year old male very well known to this clinic presenting with a wildly complicated history. Pt had a tendon transfer surgery on his right ankle late last year in an effort to decrease his tendency to walk on the outside surface of his feet. Shortly after this, pt began to get painful blisters all over his skin and eventually was admitted to the burn [facility] in [facility] for one month, eventually being diagnosed with the autoimmune disorder bullous pemphigus. While being treated for this, there was worry about a bone infection in his foot, possibly secondary to the tendon transfer. Multiple biopsies were taken, which unfortunately then led to a severe fracture in his foot. Pt eventuually needed to have this bone fragment surgically removed. Pt returns to therapy after all of this in hopes to improve the mobility and strength of his ankle, as well as improve hiis gait and stability. Pt currently using a SPC while walking for stability. Fears his ankle has started locking up because he was unable to do much after surgery. Treatment Goals Patient/Caregiver Goals Improve ROM and stretch out his ankle, improve gait stability PT-OP-C Subjective Start: 11/15/21 15:38 Freq: Status: Active Protocol: Document 03/31/22 10:30 DCW (Rec: 03/31/22 11:18 DCW [id number]) OP-PT Subjective Patient Comments Patient Comments Pt wearing an older pair of shoes today, seems to be less ankle rolling. PT-OP-E Functional Tests Start: 11/15/21 15:38 Freq: Status: Active Protocol: Document 11/15/21 12:00 DCW (Rec: 11/15/21 15:55 DCW [id number]) Functional Tests 2 Minute Walk Test Distance 257' Device Used SPC Comments 2.14 PT-OP-G Mobility & Gait Start: 11/15/21 15:38 Freq: Status: Active Protocol: Document 02/17/22 12:00 DCW (Rec: 02/17/22 12:57 DCW [id number]) OP Gait Assessment Assistive Devices Assistive Device None,Straight Cane Gait Deviations General Gait Pattern Antalgic,Decreased Stride Length,Decreased Feet Clearance,Lateral Trunk Lean, Wide Based Gait Factors Limiting Gait Function Factors Limiting Gait Function Decreased Activity Tolerance, Decreased Sensation,Decreased Strength,Limited Range of Motion,Pain,Poor Balance Comments Gait Comments Pt ambulating both with SPC and AD-free, inversion of right foot less prominant than at eval. Knee varus limiting factor in ability to bring knee in line over ankle. PT-OP-H Neuro Start: 11/15/21 15:38 Freq: Status: Active Protocol: Document 02/17/22 12:00 DCW (Rec: 02/17/22 12:57 DCW [id number]) Sensation Evaluation Gross Sensation Gross Sensation Left LE Impaired,Right LE Impaired Sensation Description Numbness Location Details Right Foot Light Touch Absent Sharp/Dull Absent Deep Pressure Absent Protective Sensation Absent Proprioception (Position) Absent Kinesthesia (Movement) Impaired Left Foot Light Touch Absent Sharp/Dull Absent Deep Pressure Absent Protective Sensation Absent Proprioception (Position) Absent Kinesthesia (Movement) Impaired PT-OP-K Range of Motion Start: 11/15/21 15:38 Freq: Status: Active Protocol: Document 02/17/22 12:00 DCW (Rec: 02/17/22 12:57 DCW [id number]) Ankle and Foot Goniometric Range of Motion Ankle and Foot Right Active Testing Position Sitting Plantarflexion 30 Inversion 16 Eversion 5 Comments Dorsiflexion /c knee flexed lacking 2? from neutral PT-OP-Q Treatments Start: 11/15/21 15:38 Freq: Status: Active Protocol: Document 03/31/22 10:30 DCW (Rec: 03/31/22 11:18 DCW [id number]) Therapeutic Exercises Sitting Exercises 1 Sitting Exercise Name BAPS (standing) Side right Resistance Lv 4 Reps/Minutes 10x ea Comments DF/PF, Inv/Ev, CW/CCW Standing Exercises calf stretch Reps/Minutes 1x1min Comments ZULEIKA blue foam stand Reps/Minutes 3 min Comments cues for all 4 corners of feet in contact Manual Therapy Treatment Soft Tissue Mobilization 1 Body Location right medial foot plantarflexor and inv Mobilization Type Myofascial Release,Sustained Pressure,Trigger Point Release Intensity/Depth Moderate Body Position Sitting Joint Mobilizations 1 Joint Talocrual, fibular AP Direction A->P Grade III Body Position Hooklying Taping 1 Body Location J-strap Type of Tape Evita PT-OP-R Modalities Start: 11/15/21 15:38 Freq: Status: Active Protocol: Document 03/02/22 09:51 SP (Rec: 03/02/22 10:37 SP [id number]) Hot Pack/Cold Pack Treatment Cold Pack Location right foot/ankle Patient Position Hooklying Treatment Duration (minutes) 10 Patient Tolerance Good Comments cryocuff for pain and edema reduction PT-OP-T Assessment and Plan Start: 11/15/21 15:38 Freq: Status: Active Protocol: Document 03/31/22 10:30 DCW (Rec: 03/31/22 11:18 DCW [id number]) Physical Therapy Assessment Goals Three Impairment Pt ambulates 257' during 2 MWT using SPC with fatigue Manager Inventory Goal (LTG) Pt to tolerate full 6 MWT without rest break while walking at least 600' using LRAD to show improved activity tolerance and decreasing falls risk. LTG Duration 05/18/22 Two Impairment Significantly limited right ankle ROM s/p surgical tendon transfer Manager Inventory Goal (LTG) Pt to increase R ankle AROM to DF 0? and Eversion 10?in order to allow pt to help normalize gait pattern LTG Duration 05/18/22 One Impairment Pt does not have an appropriate home exercise program Short Term Goal (STG) Pt to be independent and compliant with an appropriate HEP STG Duration goal met Skilled Nursing Goal (LTG) Patient will tolerate progression of therapeutic exercises to work on flexibility, strengthening, and edema reduction of right foot and ankle. LTG Duration 05/18/22 Assessment Summary Assessment Pt showing much better mobility during STM/Jt mobs and on BAPS today. Still struggling to prevent inversion during gait or with balance challenges, especially standing on foam. Physical Therapy Plan Frequency and Duration Frequency of Treatment 2x/Week Duration of Treatment 90 days Plan of Care Start Date 02/17/22 Plan of Care End Date 05/18/22 Therapeutic Interventions Therapeutic Interventions Aquatic Therapy,Balance Training,Gait Training,Home Exercise Program,Joint Mobilizations,Lymphedema Management,Manual Therapy, Patient/Caregiver Education, Self-Care/Home Management,Soft Tissue Mobilization, Therapeutic Activities, Therapeutic Exercises Next Visit Focus/Plan Next Note Type Treatment Note Next Visit Plan Continue with ROM and strengthening, edema management per POC.
--- NOTE | 2022-04-05 11:14 | PT.OTN ---
Current Diagnoses Pain in right ankle and joints of right foot (04/05/22) Stiffness of unspecified ankle, not elsewhere classified (04/05/22) Pain in right foot (04/05/22) Other abnormalities of gait and mobility (04/05/22) History of falling (04/05/22) Physical Therapy Treatment Note PT-OP-A Visit Information Start: 11/15/21 15:38 Freq: Status: Active Protocol: Document 04/05/22 10:30 DCW (Rec: 04/05/22 11:14 DCW [id number]) Out-Patient Physical Therapy Visit Information Visit Information Visit Type Treatment Note Visit Start Time 10:30 Visit Stop Time 11:15 Total Visit Minutes 45 Visit Number 29 Number of BLACKJACK SUPERVISOR Visits 0 Evaluation Information Evaluation Date 11/15/21 PT-OP-B Current Condition Start: 11/15/21 15:38 Freq: Status: Active Protocol: Document 11/15/21 12:00 DCW (Rec: 11/15/21 17:59 DCW [id number]) Current Condition History of Current Condition Onset Date Long-standing history Current Complaints Gait difficulty, ankle pain, ankle stiffness, low back pain History of Current Condition Pt is a 56 year old male very well known to this clinic presenting with a wildly complicated history. Pt had a tendon transfer surgery on his right ankle late last year in an effort to decrease his tendency to walk on the outside surface of his feet. Shortly after this, pt began to get painful blisters all over his skin and eventually was admitted to the burn [facility] in [facility] for one month, eventually being diagnosed with the autoimmune disorder bullous pemphigus. While being treated for this, there was worry about a bone infection in his foot, possibly secondary to the tendon transfer. Multiple biopsies were taken, which unfortunately then led to a severe fracture in his foot. Pt eventuually needed to have this bone fragment surgically removed. Pt returns to therapy after all of this in hopes to improve the mobility and strength of his ankle, as well as improve hiis gait and stability. Pt currently using a SPC while walking for stability. Fears his ankle has started locking up because he was unable to do much after surgery. Treatment Goals Patient/Caregiver Goals Improve ROM and stretch out his ankle, improve gait stability PT-OP-C Subjective Start: 11/15/21 15:38 Freq: Status: Active Protocol: Document 04/05/22 10:30 DCW (Rec: 04/05/22 11:14 DCW [id number]) OP-PT Subjective Patient Comments Patient Comments Pt complaining of rotational vertigo when getting out of bed this morning. PT-OP-E Functional Tests Start: 11/15/21 15:38 Freq: Status: Active Protocol: Document 11/15/21 12:00 DCW (Rec: 11/15/21 15:55 DCW [id number]) Functional Tests 2 Minute Walk Test Distance 257' Device Used SPC Comments 2.14 PT-OP-G Mobility & Gait Start: 11/15/21 15:38 Freq: Status: Active Protocol: Document 02/17/22 12:00 DCW (Rec: 02/17/22 12:57 DCW [id number]) OP Gait Assessment Assistive Devices Assistive Device None,Straight Cane Gait Deviations General Gait Pattern Antalgic,Decreased Stride Length,Decreased Feet Clearance,Lateral Trunk Lean, Wide Based Gait Factors Limiting Gait Function Factors Limiting Gait Function Decreased Activity Tolerance, Decreased Sensation,Decreased Strength,Limited Range of Motion,Pain,Poor Balance Comments Gait Comments Pt ambulating both with SPC and AD-free, inversion of right foot less prominant than at eval. Knee varus limiting factor in ability to bring knee in line over ankle. PT-OP-H Neuro Start: 11/15/21 15:38 Freq: Status: Active Protocol: Document 02/17/22 12:00 DCW (Rec: 02/17/22 12:57 DCW [id number]) Sensation Evaluation Gross Sensation Gross Sensation Left LE Impaired,Right LE Impaired Sensation Description Numbness Location Details Right Foot Light Touch Absent Sharp/Dull Absent Deep Pressure Absent Protective Sensation Absent Proprioception (Position) Absent Kinesthesia (Movement) Impaired Left Foot Light Touch Absent Sharp/Dull Absent Deep Pressure Absent Protective Sensation Absent Proprioception (Position) Absent Kinesthesia (Movement) Impaired PT-OP-K Range of Motion Start: 11/15/21 15:38 Freq: Status: Active Protocol: Document 02/17/22 12:00 DCW (Rec: 02/17/22 12:57 DCW [id number]) Ankle and Foot Goniometric Range of Motion Ankle and Foot Right Active Testing Position Sitting Plantarflexion 30 Inversion 16 Eversion 5 Comments Dorsiflexion /c knee flexed lacking 2? from neutral PT-OP-Q Treatments Start: 11/15/21 15:38 Freq: Status: Active Protocol: Document 04/05/22 10:30 DCW (Rec: 04/05/22 11:14 DCW [id number]) Therapeutic Exercises Sitting Exercises 1 Sitting Exercise Name BAPS (standing) Side right Resistance Lv 4 Reps/Minutes 10x ea Comments DF/PF, Inv/Ev, CW/CCW Standing Exercises blue foam stand Standing Exercise Name Attempting SLS on foam Comments cues for all 4 corners of feet in contact Manual Therapy Treatment Soft Tissue Mobilization 1 Body Location right medial foot plantarflexor and inv Mobilization Type Myofascial Release,Sustained Pressure,Trigger Point Release Intensity/Depth Moderate Body Position Sitting Joint Mobilizations 1 Joint Talocrual, fibular AP Direction A->P Grade III Body Position Hooklying Taping 1 Body Location J-strap Type of Tape Evita PT-OP-R Modalities Start: 11/15/21 15:38 Freq: Status: Active Protocol: Document 03/02/22 09:51 SP (Rec: 03/02/22 10:37 SP [id number]) Hot Pack/Cold Pack Treatment Cold Pack Location right foot/ankle Patient Position Hooklying Treatment Duration (minutes) 10 Patient Tolerance Good Comments cryocuff for pain and edema reduction PT-OP-T Assessment and Plan Start: 11/15/21 15:38 Freq: Status: Active Protocol: Document 04/05/22 10:30 DCW (Rec: 04/05/22 11:14 DCW [id number]) Physical Therapy Assessment Goals Three Impairment Pt ambulates 257' during 2 MWT using SPC with fatigue Shelter Goal (LTG) Pt to tolerate full 6 MWT without rest break while walking at least 600' using LRAD to show improved activity tolerance and decreasing falls risk. LTG Duration 05/18/22 Two Impairment Significantly limited right ankle ROM s/p surgical tendon transfer Home Worker Goal (LTG) Pt to increase R ankle AROM to DF 0? and Eversion 10?in order to allow pt to help normalize gait pattern LTG Duration 05/18/22 One Impairment Pt does not have an appropriate home exercise program Short Term Goal (STG) Pt to be independent and compliant with an appropriate HEP STG Duration goal met Shelter Goal (LTG) Patient will tolerate progression of therapeutic exercises to work on flexibility, strengthening, and edema reduction of right foot and ankle. LTG Duration 05/18/22 Assessment Summary Assessment Pt ambulating much better after manual intervention today, walking down perez without use of cane and improved ankle stability. Physical Therapy Plan Frequency and Duration Frequency of Treatment 2x/Week Duration of Treatment 90 days Plan of Care Start Date 02/17/22 Plan of Care End Date 05/18/22 Therapeutic Interventions Therapeutic Interventions Aquatic Therapy,Balance Training,Gait Training,Home Exercise Program,Joint Mobilizations,Lymphedema Management,Manual Therapy, Patient/Caregiver Education, Self-Care/Home Management,Soft Tissue Mobilization, Therapeutic Activities, Therapeutic Exercises Next Visit Focus/Plan Next Note Type Treatment Note Next Visit Plan Continue with ROM and strengthening, edema management per POC.
--- NOTE | 2022-04-07 11:16 | PT.OTN ---
Current Diagnoses Pain in right ankle and joints of right foot (04/07/22) Stiffness of unspecified ankle, not elsewhere classified (04/07/22) Pain in right foot (04/07/22) Other abnormalities of gait and mobility (04/07/22) History of falling (04/07/22) Physical Therapy Treatment Note PT-OP-A Visit Information Start: 11/15/21 15:38 Freq: Status: Active Protocol: Document 04/07/22 10:30 DCW (Rec: 04/07/22 11:16 DCW [id number]) Out-Patient Physical Therapy Visit Information Visit Information Visit Type Treatment Note Visit Start Time 10:30 Visit Stop Time 11:15 Total Visit Minutes 45 Visit Number 30 Number of YARD CLERK Visits 0 Evaluation Information Evaluation Date 11/15/21 PT-OP-B Current Condition Start: 11/15/21 15:38 Freq: Status: Active Protocol: Document 11/15/21 12:00 DCW (Rec: 11/15/21 17:59 DCW [id number]) Current Condition History of Current Condition Onset Date Long-standing history Current Complaints Gait difficulty, ankle pain, ankle stiffness, low back pain History of Current Condition Pt is a 56 year old male very well known to this clinic presenting with a wildly complicated history. Pt had a tendon transfer surgery on his right ankle late last year in an effort to decrease his tendency to walk on the outside surface of his feet. Shortly after this, pt began to get painful blisters all over his skin and eventually was admitted to the burn [facility] in [facility] for one month, eventually being diagnosed with the autoimmune disorder bullous pemphigus. While being treated for this, there was worry about a bone infection in his foot, possibly secondary to the tendon transfer. Multiple biopsies were taken, which unfortunately then led to a severe fracture in his foot. Pt eventuually needed to have this bone fragment surgically removed. Pt returns to therapy after all of this in hopes to improve the mobility and strength of his ankle, as well as improve hiis gait and stability. Pt currently using a SPC while walking for stability. Fears his ankle has started locking up because he was unable to do much after surgery. Treatment Goals Patient/Caregiver Goals Improve ROM and stretch out his ankle, improve gait stability PT-OP-C Subjective Start: 11/15/21 15:38 Freq: Status: Active Protocol: Document 04/07/22 10:30 DCW (Rec: 04/07/22 11:16 DCW [id number]) OP-PT Subjective Patient Comments Patient Comments Pt notes he has been doing much better with not rolling his ankle when walking around barefoot. PT-OP-E Functional Tests Start: 11/15/21 15:38 Freq: Status: Active Protocol: Document 11/15/21 12:00 DCW (Rec: 11/15/21 15:55 DCW [id number]) Functional Tests 2 Minute Walk Test Distance 257' Device Used SPC Comments 2.14 PT-OP-G Mobility & Gait Start: 11/15/21 15:38 Freq: Status: Active Protocol: Document 02/17/22 12:00 DCW (Rec: 02/17/22 12:57 DCW [id number]) OP Gait Assessment Assistive Devices Assistive Device None,Straight Cane Gait Deviations General Gait Pattern Antalgic,Decreased Stride Length,Decreased Feet Clearance,Lateral Trunk Lean, Wide Based Gait Factors Limiting Gait Function Factors Limiting Gait Function Decreased Activity Tolerance, Decreased Sensation,Decreased Strength,Limited Range of Motion,Pain,Poor Balance Comments Gait Comments Pt ambulating both with SPC and AD-free, inversion of right foot less prominant than at eval. Knee varus limiting factor in ability to bring knee in line over ankle. PT-OP-H Neuro Start: 11/15/21 15:38 Freq: Status: Active Protocol: Document 02/17/22 12:00 DCW (Rec: 02/17/22 12:57 DCW [id number]) Sensation Evaluation Gross Sensation Gross Sensation Left LE Impaired,Right LE Impaired Sensation Description Numbness Location Details Right Foot Light Touch Absent Sharp/Dull Absent Deep Pressure Absent Protective Sensation Absent Proprioception (Position) Absent Kinesthesia (Movement) Impaired Left Foot Light Touch Absent Sharp/Dull Absent Deep Pressure Absent Protective Sensation Absent Proprioception (Position) Absent Kinesthesia (Movement) Impaired PT-OP-K Range of Motion Start: 11/15/21 15:38 Freq: Status: Active Protocol: Document 02/17/22 12:00 DCW (Rec: 02/17/22 12:57 DCW [id number]) Ankle and Foot Goniometric Range of Motion Ankle and Foot Right Active Testing Position Sitting Plantarflexion 30 Inversion 16 Eversion 5 Comments Dorsiflexion /c knee flexed lacking 2? from neutral PT-OP-Q Treatments Start: 11/15/21 15:38 Freq: Status: Active Protocol: Document 04/07/22 10:30 DCW (Rec: 04/07/22 11:16 DCW [id number]) Manual Therapy Treatment Soft Tissue Mobilization 1 Body Location right medial foot plantarflexor and inv Mobilization Type Myofascial Release,Sustained Pressure,Trigger Point Release Intensity/Depth Moderate Body Position Sitting Joint Mobilizations 1 Joint Talocrual, fibular AP Direction A->P Grade III Body Position Hooklying Taping 1 Body Location J-strap Type of Tape Evita PT-OP-R Modalities Start: 11/15/21 15:38 Freq: Status: Active Protocol: Document 03/02/22 09:51 SP (Rec: 03/02/22 10:37 SP [id number]) Hot Pack/Cold Pack Treatment Cold Pack Location right foot/ankle Patient Position Hooklying Treatment Duration (minutes) 10 Patient Tolerance Good Comments cryocuff for pain and edema reduction PT-OP-T Assessment and Plan Start: 11/15/21 15:38 Freq: Status: Active Protocol: Document 04/07/22 10:30 DCW (Rec: 04/07/22 11:16 DCW [id number]) Physical Therapy Assessment Goals Three Impairment Pt ambulates 257' during 2 MWT using SPC with fatigue Mold Maker Apprentice Goal (LTG) Pt to tolerate full 6 MWT without rest break while walking at least 600' using LRAD to show improved activity tolerance and decreasing falls risk. LTG Duration 05/18/22 Two Impairment Significantly limited right ankle ROM s/p surgical tendon transfer Mold Maker Apprentice Goal (LTG) Pt to increase R ankle AROM to DF 0? and Eversion 10?in order to allow pt to help normalize gait pattern LTG Duration 05/18/22 One Impairment Pt does not have an appropriate home exercise program Short Term Goal (STG) Pt to be independent and compliant with an appropriate HEP STG Duration goal met Fdc Goal (LTG) Patient will tolerate progression of therapeutic exercises to work on flexibility, strengthening, and edema reduction of right foot and ankle. LTG Duration 05/18/22 Assessment Summary Assessment Pt has been doing well with balance challenges at home, purchased an [employer]ire[employer] foam pad, working on joint stability on compliant surfaces. Physical Therapy Plan Frequency and Duration Frequency of Treatment 2x/Week Duration of Treatment 90 days Plan of Care Start Date 02/17/22 Plan of Care End Date 05/18/22 Therapeutic Interventions Therapeutic Interventions Aquatic Therapy,Balance Training,Gait Training,Home Exercise Program,Joint Mobilizations,Lymphedema Management,Manual Therapy, Patient/Caregiver Education, Self-Care/Home Management,Soft Tissue Mobilization, Therapeutic Activities, Therapeutic Exercises Next Visit Focus/Plan Next Note Type Treatment Note Next Visit Plan Continue with ROM and strengthening, edema management per POC.
--- NOTE | 2022-04-13 16:03 | PT.OTN ---
Current Diagnoses Pain in right ankle and joints of right foot (04/13/22) Stiffness of unspecified ankle, not elsewhere classified (04/13/22) Pain in right foot (04/13/22) Other abnormalities of gait and mobility (04/13/22) History of falling (04/13/22) Physical Therapy Treatment Note PT-OP-A Visit Information Start: 11/15/21 15:38 Freq: Status: Active Protocol: Document 04/13/22 15:15 DCW (Rec: 04/13/22 16:03 DCW [id number]) Out-Patient Physical Therapy Visit Information Visit Information Visit Type Treatment Note Visit Start Time 15:15 Visit Stop Time 16:00 Total Visit Minutes 45 Visit Number 31 Number of LAYAWAY CLERK Visits 0 Evaluation Information Evaluation Date 11/15/21 PT-OP-B Current Condition Start: 11/15/21 15:38 Freq: Status: Active Protocol: Document 11/15/21 12:00 DCW (Rec: 11/15/21 17:59 DCW [id number]) Current Condition History of Current Condition Onset Date Long-standing history Current Complaints Gait difficulty, ankle pain, ankle stiffness, low back pain History of Current Condition Pt is a 56 year old male very well known to this clinic presenting with a wildly complicated history. Pt had a tendon transfer surgery on his right ankle late last year in an effort to decrease his tendency to walk on the outside surface of his feet. Shortly after this, pt began to get painful blisters all over his skin and eventually was admitted to the burn sol[facility] in [facility] for one month, eventually being diagnosed with the autoimmune disorder bullous pemphigus. While being treated for this, there was worry about a bone infection in his foot, possibly secondary to the tendon transfer. Multiple biopsies were taken, which unfortunately then led to a severe fracture in his foot. Pt eventuually needed to have this bone fragment surgically removed. Pt returns to therapy after all of this in hopes to improve the mobility and strength of his ankle, as well as improve hiis gait and stability. Pt currently using a SPC while walking for stability. Fears his ankle has started locking up because he was unable to do much after surgery. Treatment Goals Patient/Caregiver Goals Improve ROM and stretch out his ankle, improve gait stability PT-OP-C Subjective Start: 11/15/21 15:38 Freq: Status: Active Protocol: Document 04/13/22 15:15 DCW (Rec: 04/13/22 16:03 DCW [id number]) OP-PT Subjective Patient Comments Patient Comments I've really rolled my ankle quite a bit recently, and now it has really screwed up my knee. PT-OP-E Functional Tests Start: 11/15/21 15:38 Freq: Status: Active Protocol: Document 11/15/21 12:00 DCW (Rec: 11/15/21 15:55 DCW [id number]) Functional Tests 2 Minute Walk Test Distance 257' Device Used SPC Comments 2.14 PT-OP-G Mobility & Gait Start: 11/15/21 15:38 Freq: Status: Active Protocol: Document 02/17/22 12:00 DCW (Rec: 02/17/22 12:57 DCW [id number]) OP Gait Assessment Assistive Devices Assistive Device None,Straight Cane Gait Deviations General Gait Pattern Antalgic,Decreased Stride Length,Decreased Feet Clearance,Lateral Trunk Lean, Wide Based Gait Factors Limiting Gait Function Factors Limiting Gait Function Decreased Activity Tolerance, Decreased Sensation,Decreased Strength,Limited Range of Motion,Pain,Poor Balance Comments Gait Comments Pt ambulating both with SPC and AD-free, inversion of right foot less prominant than at eval. Knee varus limiting factor in ability to bring knee in line over ankle. PT-OP-H Neuro Start: 11/15/21 15:38 Freq: Status: Active Protocol: Document 02/17/22 12:00 DCW (Rec: 02/17/22 12:57 DCW [id number]) Sensation Evaluation Gross Sensation Gross Sensation Left LE Impaired,Right LE Impaired Sensation Description Numbness Location Details Right Foot Light Touch Absent Sharp/Dull Absent Deep Pressure Absent Protective Sensation Absent Proprioception (Position) Absent Kinesthesia (Movement) Impaired Left Foot Light Touch Absent Sharp/Dull Absent Deep Pressure Absent Protective Sensation Absent Proprioception (Position) Absent Kinesthesia (Movement) Impaired PT-OP-K Range of Motion Start: 11/15/21 15:38 Freq: Status: Active Protocol: Document 02/17/22 12:00 DCW (Rec: 02/17/22 12:57 DCW [id number]) Ankle and Foot Goniometric Range of Motion Ankle and Foot Right Active Testing Position Sitting Plantarflexion 30 Inversion 16 Eversion 5 Comments Dorsiflexion /c knee flexed lacking 2? from neutral PT-OP-Q Treatments Start: 11/15/21 15:38 Freq: Status: Active Protocol: Document 04/13/22 15:15 DCW (Rec: 04/13/22 16:03 DCW [id number]) Manual Therapy Treatment Soft Tissue Mobilization 1 Body Location right medial foot plantarflexor and inv Mobilization Type Myofascial Release,Sustained Pressure,Trigger Point Release Intensity/Depth Moderate Body Position Sitting Joint Mobilizations 1 Joint Talocrual, fibular AP Direction A->P Grade III Body Position Hooklying Taping 1 Body Location J-strap Type of Tape Evita Comments Fore-foot to anterior rutherford and rear-foot to lateral calf PT-OP-R Modalities Start: 11/15/21 15:38 Freq: Status: Active Protocol: Document 03/02/22 09:51 SP (Rec: 03/02/22 10:37 SP [id number]) Hot Pack/Cold Pack Treatment Cold Pack Location right foot/ankle Patient Position Hooklying Treatment Duration (minutes) 10 Patient Tolerance Good Comments cryocuff for pain and edema reduction PT-OP-T Assessment and Plan Start: 11/15/21 15:38 Freq: Status: Active Protocol: Document 04/13/22 15:15 DCW (Rec: 04/13/22 16:03 DCW [id number]) Physical Therapy Assessment Goals Three Impairment Pt ambulates 257' during 2 MWT using SPC with fatigue Java Web Architect Goal (LTG) Pt to tolerate full 6 MWT without rest break while walking at least 600' using LRAD to show improved activity tolerance and decreasing falls risk. LTG Duration 05/18/22 Two Impairment Significantly limited right ankle ROM s/p surgical tendon transfer Assisted Goal (LTG) Pt to increase R ankle AROM to DF 0? and Eversion 10?in order to allow pt to help normalize gait pattern LTG Duration 05/18/22 One Impairment Pt does not have an appropriate home exercise program Short Term Goal (STG) Pt to be independent and compliant with an appropriate HEP STG Duration goal met Java Web Architect Goal (LTG) Patient will tolerate progression of therapeutic exercises to work on flexibility, strengthening, and edema reduction of right foot and ankle. LTG Duration 05/18/22 Assessment Summary Assessment Pt exhibits significant increase in edema and soreness after multiple ankle sprains over the past week. Trial of additional strap during taping today to assist stability. Pt seeing surgeon next week, will hopefully get some answers regarding recent decline in stability. Physical Therapy Plan Frequency and Duration Frequency of Treatment 2x/Week Duration of Treatment 90 days Plan of Care Start Date 02/17/22 Plan of Care End Date 05/18/22 Therapeutic Interventions Therapeutic Interventions Aquatic Therapy,Balance Training,Gait Training,Home Exercise Program,Joint Mobilizations,Lymphedema Management,Manual Therapy, Patient/Caregiver Education, Self-Care/Home Management,Soft Tissue Mobilization, Therapeutic Activities, Therapeutic Exercises Next Visit Focus/Plan Next Note Type Treatment Note Next Visit Plan Continue with ROM and strengthening, edema management per POC.
--- NOTE | 2022-04-27 17:36 | PT.OTN ---
Current Diagnoses Pain in right ankle and joints of right foot (04/27/22) Stiffness of unspecified ankle, not elsewhere classified (04/27/22) Pain in right foot (04/27/22) Other abnormalities of gait and mobility (04/27/22) History of falling (04/27/22) Physical Therapy Treatment Note PT-OP-A Visit Information Start: 11/15/21 15:38 Freq: Status: Active Protocol: Document 04/27/22 16:45 DCW (Rec: 04/27/22 17:36 DCW [id number]) Out-Patient Physical Therapy Visit Information Visit Information Visit Type Treatment Note Visit Start Time 16:45 Visit Stop Time 17:15 Total Visit Minutes 30 Visit Number 32 Number of WELDING ESTIMATOR Visits 0 Evaluation Information Evaluation Date 11/15/21 PT-OP-B Current Condition Start: 11/15/21 15:38 Freq: Status: Active Protocol: Document 11/15/21 12:00 DCW (Rec: 11/15/21 17:59 DCW [id number]) Current Condition History of Current Condition Onset Date Long-standing history Current Complaints Gait difficulty, ankle pain, ankle stiffness, low back pain History of Current Condition Pt is a 56 year old male very well known to this clinic presenting with a wildly complicated history. Pt had a tendon transfer surgery on his right ankle late last year in an effort to decrease his tendency to walk on the outside surface of his feet. Shortly after this, pt began to get painful blisters all over his skin and eventually was admitted to the burn [facility] in [facility] for one month, eventually being diagnosed with the autoimmune disorder bullous pemphigus. While being treated for this, there was worry about a bone infection in his foot, possibly secondary to the tendon transfer. Multiple biopsies were taken, which unfortunately then led to a severe fracture in his foot. Pt eventuually needed to have this bone fragment surgically removed. Pt returns to therapy after all of this in hopes to improve the mobility and strength of his ankle, as well as improve hiis gait and stability. Pt currently using a SPC while walking for stability. Fears his ankle has started locking up because he was unable to do much after surgery. Treatment Goals Patient/Caregiver Goals Improve ROM and stretch out his ankle, improve gait stability PT-OP-C Subjective Start: 11/15/21 15:38 Freq: Status: Active Protocol: Document 04/27/22 16:45 DCW (Rec: 04/27/22 17:36 DCW [id number]) OP-PT Subjective Patient Comments Patient Comments Pt comes in today without a can, reports he has been walking better, but almost immediately stumbles and has to catch himself on the wall. PT-OP-E Functional Tests Start: 11/15/21 15:38 Freq: Status: Active Protocol: Document 11/15/21 12:00 DCW (Rec: 11/15/21 15:55 DCW [id number]) Functional Tests 2 Minute Walk Test Distance 257' Device Used SPC Comments 2.14 PT-OP-G Mobility & Gait Start: 11/15/21 15:38 Freq: Status: Active Protocol: Document 02/17/22 12:00 DCW (Rec: 02/17/22 12:57 DCW [id number]) OP Gait Assessment Assistive Devices Assistive Device None,Straight Cane Gait Deviations General Gait Pattern Antalgic,Decreased Stride Length,Decreased Feet Clearance,Lateral Trunk Lean, Wide Based Gait Factors Limiting Gait Function Factors Limiting Gait Function Decreased Activity Tolerance, Decreased Sensation,Decreased Strength,Limited Range of Motion,Pain,Poor Balance Comments Gait Comments Pt ambulating both with SPC and AD-free, inversion of right foot less prominant than at eval. Knee varus limiting factor in ability to bring knee in line over ankle. PT-OP-H Neuro Start: 11/15/21 15:38 Freq: Status: Active Protocol: Document 02/17/22 12:00 DCW (Rec: 02/17/22 12:57 DCW [id number]) Sensation Evaluation Gross Sensation Gross Sensation Left LE Impaired,Right LE Impaired Sensation Description Numbness Location Details Right Foot Light Touch Absent Sharp/Dull Absent Deep Pressure Absent Protective Sensation Absent Proprioception (Position) Absent Kinesthesia (Movement) Impaired Left Foot Light Touch Absent Sharp/Dull Absent Deep Pressure Absent Protective Sensation Absent Proprioception (Position) Absent Kinesthesia (Movement) Impaired PT-OP-K Range of Motion Start: 11/15/21 15:38 Freq: Status: Active Protocol: Document 02/17/22 12:00 DCW (Rec: 02/17/22 12:57 DCW [id number]) Ankle and Foot Goniometric Range of Motion Ankle and Foot Right Active Testing Position Sitting Plantarflexion 30 Inversion 16 Eversion 5 Comments Dorsiflexion /c knee flexed lacking 2? from neutral PT-OP-Q Treatments Start: 11/15/21 15:38 Freq: Status: Active Protocol: Document 04/27/22 16:45 DCW (Rec: 04/27/22 17:36 DCW [id number]) Manual Therapy Treatment Soft Tissue Mobilization 1 Body Location right medial foot plantarflexor and inv Mobilization Type Myofascial Release,Sustained Pressure,Trigger Point Release Intensity/Depth Moderate Body Position Sitting Joint Mobilizations 1 Joint Talocrual, fibular AP Direction A->P Grade III Body Position Hooklying Taping 1 Body Location J-strap Type of Tape Evita Comments Fore-foot to anterior rutherford and rear-foot to lateral calf PT-OP-R Modalities Start: 11/15/21 15:38 Freq: Status: Active Protocol: Document 03/02/22 09:51 SP (Rec: 03/02/22 10:37 SP [id number]) Hot Pack/Cold Pack Treatment Cold Pack Location right foot/ankle Patient Position Hooklying Treatment Duration (minutes) 10 Patient Tolerance Good Comments cryocuff for pain and edema reduction PT-OP-T Assessment and Plan Start: 11/15/21 15:38 Freq: Status: Active Protocol: Document 04/27/22 16:45 DCW (Rec: 04/27/22 17:36 DCW [id number]) Physical Therapy Assessment Goals Three Impairment Pt ambulates 257' during 2 MWT using SPC with fatigue Service Unit Operator Goal (LTG) Pt to tolerate full 6 MWT without rest break while walking at least 600' using LRAD to show improved activity tolerance and decreasing falls risk. LTG Duration 05/18/22 Two Impairment Significantly limited right ankle ROM s/p surgical tendon transfer Service Unit Operator Goal (LTG) Pt to increase R ankle AROM to DF 0? and Eversion 10?in order to allow pt to help normalize gait pattern LTG Duration 05/18/22 One Impairment Pt does not have an appropriate home exercise program Short Term Goal (STG) Pt to be independent and compliant with an appropriate HEP STG Duration goal met Service Unit Operator Goal (LTG) Patient will tolerate progression of therapeutic exercises to work on flexibility, strengthening, and edema reduction of right foot and ankle. LTG Duration 05/18/22 Assessment Summary Assessment Pt arrived with stirrup ankle brace, noted it was a temporary solution from meeting with wire mill operator last week. Combined taping and ankle brace pt felt much more secure than when walking into clinic. Physical Therapy Plan Frequency and Duration Frequency of Treatment 2x/Week Duration of Treatment 90 days Plan of Care Start Date 02/17/22 Plan of Care End Date 05/18/22 Therapeutic Interventions Therapeutic Interventions Aquatic Therapy,Balance Training,Gait Training,Home Exercise Program,Joint Mobilizations,Lymphedema Management,Manual Therapy, Patient/Caregiver Education, Self-Care/Home Management,Soft Tissue Mobilization, Therapeutic Activities, Therapeutic Exercises Next Visit Focus/Plan Next Note Type Treatment Note Next Visit Plan Continue with ROM and strengthening, edema management per POC.
--- NOTE | 2022-05-03 12:00 | PT.OTN ---
Current Diagnoses Pain in right ankle and joints of right foot (05/03/22) Stiffness of unspecified ankle, not elsewhere classified (05/03/22) Pain in right foot (05/03/22) Other abnormalities of gait and mobility (05/03/22) History of falling (05/03/22) Physical Therapy Treatment Note PT-OP-A Visit Information Start: 11/15/21 15:38 Freq: Status: Active Protocol: Document 05/03/22 11:15 DCW (Rec: 05/03/22 12:00 DCW [id number]) Out-Patient Physical Therapy Visit Information Visit Information Visit Type Treatment Note Visit Start Time 11:15 Visit Stop Time 12:00 Total Visit Minutes 45 Visit Number 33 Number of FINISHING INSPECTOR Visits 0 Evaluation Information Evaluation Date 11/15/21 PT-OP-B Current Condition Start: 11/15/21 15:38 Freq: Status: Active Protocol: Document 11/15/21 12:00 DCW (Rec: 11/15/21 17:59 DCW [id number]) Current Condition History of Current Condition Onset Date Long-standing history Current Complaints Gait difficulty, ankle pain, ankle stiffness, low back pain History of Current Condition Pt is a 56 year old male very well known to this clinic presenting with a wildly complicated history. Pt had a tendon transfer surgery on his right ankle late last year in an effort to decrease his tendency to walk on the outside surface of his feet. Shortly after this, pt began to get painful blisters all over his skin and eventually was admitted to the burn [facility] in [facility] for one month, eventually being diagnosed with the autoimmune disorder bullous pemphigus. While being treated for this, there was worry about a bone infection in his foot, possibly secondary to the tendon transfer. Multiple biopsies were taken, which unfortunately then led to a severe fracture in his foot. Pt eventuually needed to have this bone fragment surgically removed. Pt returns to therapy after all of this in hopes to improve the mobility and strength of his ankle, as well as improve hiis gait and stability. Pt currently using a SPC while walking for stability. Fears his ankle has started locking up because he was unable to do much after surgery. Treatment Goals Patient/Caregiver Goals Improve ROM and stretch out his ankle, improve gait stability PT-OP-C Subjective Start: 11/15/21 15:38 Freq: Status: Active Protocol: Document 05/03/22 11:15 DCW (Rec: 05/03/22 12:00 DCW [id number]) OP-PT Subjective Patient Comments Patient Comments My foots really not coorperating right now. Pt ambulates back to treatment room with a constant rolling of his ankle with every step. PT-OP-E Functional Tests Start: 11/15/21 15:38 Freq: Status: Active Protocol: Document 11/15/21 12:00 DCW (Rec: 11/15/21 15:55 DCW [id number]) Functional Tests 2 Minute Walk Test Distance 257' Device Used SPC Comments 2.14 PT-OP-G Mobility & Gait Start: 11/15/21 15:38 Freq: Status: Active Protocol: Document 02/17/22 12:00 DCW (Rec: 02/17/22 12:57 DCW [id number]) OP Gait Assessment Assistive Devices Assistive Device None,Straight Cane Gait Deviations General Gait Pattern Antalgic,Decreased Stride Length,Decreased Feet Clearance,Lateral Trunk Lean, Wide Based Gait Factors Limiting Gait Function Factors Limiting Gait Function Decreased Activity Tolerance, Decreased Sensation,Decreased Strength,Limited Range of Motion,Pain,Poor Balance Comments Gait Comments Pt ambulating both with SPC and AD-free, inversion of right foot less prominant than at eval. Knee varus limiting factor in ability to bring knee in line over ankle. PT-OP-H Neuro Start: 11/15/21 15:38 Freq: Status: Active Protocol: Document 02/17/22 12:00 DCW (Rec: 02/17/22 12:57 DCW [id number]) Sensation Evaluation Gross Sensation Gross Sensation Left LE Impaired,Right LE Impaired Sensation Description Numbness Location Details Right Foot Light Touch Absent Sharp/Dull Absent Deep Pressure Absent Protective Sensation Absent Proprioception (Position) Absent Kinesthesia (Movement) Impaired Left Foot Light Touch Absent Sharp/Dull Absent Deep Pressure Absent Protective Sensation Absent Proprioception (Position) Absent Kinesthesia (Movement) Impaired PT-OP-K Range of Motion Start: 11/15/21 15:38 Freq: Status: Active Protocol: Document 02/17/22 12:00 DCW (Rec: 02/17/22 12:57 DCW [id number]) Ankle and Foot Goniometric Range of Motion Ankle and Foot Right Active Testing Position Sitting Plantarflexion 30 Inversion 16 Eversion 5 Comments Dorsiflexion /c knee flexed lacking 2? from neutral PT-OP-Q Treatments Start: 11/15/21 15:38 Freq: Status: Active Protocol: Document 05/03/22 11:15 DCW (Rec: 05/03/22 12:00 DCW [id number]) Manual Therapy Treatment Soft Tissue Mobilization 1 Body Location right medial foot plantarflexor and inv Mobilization Type Myofascial Release,Sustained Pressure,Trigger Point Release Intensity/Depth Moderate Body Position Sitting Joint Mobilizations 1 Joint Talocrual, fibular AP Direction A->P Grade III Body Position Hooklying Taping 1 Body Location J-strap Type of Tape Evita Comments Fore-foot to anterior rutherford and rear-foot to lateral calf PT-OP-R Modalities Start: 11/15/21 15:38 Freq: Status: Active Protocol: Document 03/02/22 09:51 SP (Rec: 03/02/22 10:37 SP [id number]) Hot Pack/Cold Pack Treatment Cold Pack Location right foot/ankle Patient Position Hooklying Treatment Duration (minutes) 10 Patient Tolerance Good Comments cryocuff for pain and edema reduction PT-OP-T Assessment and Plan Start: 11/15/21 15:38 Freq: Status: Active Protocol: Document 05/03/22 11:15 DCW (Rec: 05/03/22 12:00 DCW [id number]) Physical Therapy Assessment Goals Three Impairment Pt ambulates 257' during 2 MWT using SPC with fatigue Snout Puller Goal (LTG) Pt to tolerate full 6 MWT without rest break while walking at least 600' using LRAD to show improved activity tolerance and decreasing falls risk. LTG Duration 05/18/22 Two Impairment Significantly limited right ankle ROM s/p surgical tendon transfer Snout Puller Goal (LTG) Pt to increase R ankle AROM to DF 0? and Eversion 10?in order to allow pt to help normalize gait pattern LTG Duration 05/18/22 One Impairment Pt does not have an appropriate home exercise program Short Term Goal (STG) Pt to be independent and compliant with an appropriate HEP STG Duration goal met Snout Puller Goal (LTG) Patient will tolerate progression of therapeutic exercises to work on flexibility, strengthening, and edema reduction of right foot and ankle. LTG Duration 05/18/22 Assessment Summary Assessment Pt struggling more in all areas currently. Pt ambulation greatly affected, unable to put much weight on R foot before ankle immediately goes into inversion and rolls onto his lateral foot surface. This was mildly diminished with taping today, but pt has noticeably worsened over the last few weeks. Physical Therapy Plan Frequency and Duration Frequency of Treatment 2x/Week Plan of Care Start Date 02/17/22 Plan of Care End Date 05/18/22 Therapeutic Interventions Therapeutic Interventions Aquatic Therapy,Balance Training,Gait Training,Home Exercise Program,Joint Mobilizations,Lymphedema Management,Manual Therapy, Patient/Caregiver Education, Self-Care/Home Management,Soft Tissue Mobilization, Therapeutic Activities, Therapeutic Exercises Next Visit Focus/Plan Next Note Type Treatment Note Next Visit Plan Continue with ROM and strengthening, edema management per POC.
--- NOTE | 2022-05-09 15:17 | PT.OTN ---
Current Diagnoses Pain in right ankle and joints of right foot (05/09/22) Stiffness of unspecified ankle, not elsewhere classified (05/09/22) Pain in right foot (05/09/22) Other abnormalities of gait and mobility (05/09/22) History of falling (05/09/22) Physical Therapy Treatment Note PT-OP-A Visit Information Start: 11/15/21 15:38 Freq: Status: Active Protocol: Document 05/09/22 14:28 DCW (Rec: 05/09/22 15:17 DCW [id number]) Out-Patient Physical Therapy Visit Information Visit Information Visit Type Treatment Note Visit Start Time 14:30 Visit Stop Time 15:15 Total Visit Minutes 45 Visit Number 34 Number of INTERNET NETWORK SPECIALIST Visits 0 Evaluation Information Evaluation Date 11/15/21 PT-OP-B Current Condition Start: 11/15/21 15:38 Freq: Status: Active Protocol: Document 11/15/21 12:00 DCW (Rec: 11/15/21 17:59 DCW [id number]) Current Condition History of Current Condition Onset Date Long-standing history Current Complaints Gait difficulty, ankle pain, ankle stiffness, low back pain History of Current Condition Pt is a 56 year old male very well known to this clinic presenting with a wildly complicated history. Pt had a tendon transfer surgery on his right ankle late last year in an effort to decrease his tendency to walk on the outside surface of his feet. Shortly after this, pt began to get painful blisters all over his skin and eventually was admitted to the burn [facility] in [facility] for one month, eventually being diagnosed with the autoimmune disorder bullous pemphigus. While being treated for this, there was worry about a bone infection in his foot, possibly secondary to the tendon transfer. Multiple biopsies were taken, which unfortunately then led to a severe fracture in his foot. Pt eventuually needed to have this bone fragment surgically removed. Pt returns to therapy after all of this in hopes to improve the mobility and strength of his ankle, as well as improve hiis gait and stability. Pt currently using a SPC while walking for stability. Fears his ankle has started locking up because he was unable to do much after surgery. Treatment Goals Patient/Caregiver Goals Improve ROM and stretch out his ankle, improve gait stability PT-OP-C Subjective Start: 11/15/21 15:38 Freq: Status: Active Protocol: Document 05/09/22 14:28 DCW (Rec: 05/09/22 15:17 DCW [id number]) OP-PT Subjective Patient Comments Patient Comments Pt walking better today, reports he has a new pair of shoes coming next week. PT-OP-E Functional Tests Start: 11/15/21 15:38 Freq: Status: Active Protocol: Document 11/15/21 12:00 DCW (Rec: 11/15/21 15:55 DCW [id number]) Functional Tests 2 Minute Walk Test Distance 257' Device Used SPC Comments 2.14 PT-OP-G Mobility & Gait Start: 11/15/21 15:38 Freq: Status: Active Protocol: Document 02/17/22 12:00 DCW (Rec: 02/17/22 12:57 DCW [id number]) OP Gait Assessment Assistive Devices Assistive Device None,Straight Cane Gait Deviations General Gait Pattern Antalgic,Decreased Stride Length,Decreased Feet Clearance,Lateral Trunk Lean, Wide Based Gait Factors Limiting Gait Function Factors Limiting Gait Function Decreased Activity Tolerance, Decreased Sensation,Decreased Strength,Limited Range of Motion,Pain,Poor Balance Comments Gait Comments Pt ambulating both with SPC and AD-free, inversion of right foot less prominant than at eval. Knee varus limiting factor in ability to bring knee in line over ankle. PT-OP-H Neuro Start: 11/15/21 15:38 Freq: Status: Active Protocol: Document 02/17/22 12:00 DCW (Rec: 02/17/22 12:57 DCW [id number]) Sensation Evaluation Gross Sensation Gross Sensation Left LE Impaired,Right LE Impaired Sensation Description Numbness Location Details Right Foot Light Touch Absent Sharp/Dull Absent Deep Pressure Absent Protective Sensation Absent Proprioception (Position) Absent Kinesthesia (Movement) Impaired Left Foot Light Touch Absent Sharp/Dull Absent Deep Pressure Absent Protective Sensation Absent Proprioception (Position) Absent Kinesthesia (Movement) Impaired PT-OP-K Range of Motion Start: 11/15/21 15:38 Freq: Status: Active Protocol: Document 02/17/22 12:00 DCW (Rec: 02/17/22 12:57 DCW [id number]) Ankle and Foot Goniometric Range of Motion Ankle and Foot Right Active Testing Position Sitting Plantarflexion 30 Inversion 16 Eversion 5 Comments Dorsiflexion /c knee flexed lacking 2? from neutral PT-OP-Q Treatments Start: 11/15/21 15:38 Freq: Status: Active Protocol: Document 05/09/22 14:28 DCW (Rec: 05/09/22 15:17 DCW [id number]) Manual Therapy Treatment Soft Tissue Mobilization 1 Body Location right medial foot plantarflexor and inv Mobilization Type Myofascial Release,Sustained Pressure,Trigger Point Release Intensity/Depth Moderate Body Position Sitting Joint Mobilizations 1 Joint Talocrual, fibular AP Direction A->P Grade III Body Position Hooklying Taping 1 Body Location J-strap Type of Tape Evita Comments Fore-foot to anterior rutherford and rear-foot to lateral calf, bow-stringed with underwrap to hold tight PT-OP-R Modalities Start: 11/15/21 15:38 Freq: Status: Active Protocol: Document 03/02/22 09:51 SP (Rec: 03/02/22 10:37 SP [id number]) Hot Pack/Cold Pack Treatment Cold Pack Location right foot/ankle Patient Position Hooklying Treatment Duration (minutes) 10 Patient Tolerance Good Comments cryocuff for pain and edema reduction PT-OP-T Assessment and Plan Start: 11/15/21 15:38 Freq: Status: Active Protocol: Document 05/09/22 14:28 DCW (Rec: 05/09/22 15:17 DCW [id number]) Physical Therapy Assessment Goals Three Impairment Pt ambulates 257' during 2 MWT using SPC with fatigue Care Home Goal (LTG) Pt to tolerate full 6 MWT without rest break while walking at least 600' using LRAD to show improved activity tolerance and decreasing falls risk. LTG Duration 05/18/22 Two Impairment Significantly limited right ankle ROM s/p surgical tendon transfer Emery Wheel Molder Goal (LTG) Pt to increase R ankle AROM to DF 0? and Eversion 10?in order to allow pt to help normalize gait pattern LTG Duration 05/18/22 One Impairment Pt does not have an appropriate home exercise program Short Term Goal (STG) Pt to be independent and compliant with an appropriate HEP STG Duration goal met Care Home Goal (LTG) Patient will tolerate progression of therapeutic exercises to work on flexibility, strengthening, and edema reduction of right foot and ankle. LTG Duration 05/18/22 Assessment Summary Assessment Pt had follow-up with surgeon last Sunday, happy with current progress, wanted to trial using wrap to bow- string tape for added support , able to perform today, ensured wrap was not too tight , able to slide finger underneath all areas. ROM slightly improved today, especially PROM DF. Physical Therapy Plan Frequency and Duration Frequency of Treatment 2x/Week Plan of Care Start Date 02/17/22 Plan of Care End Date 05/18/22 Therapeutic Interventions Therapeutic Interventions Aquatic Therapy,Balance Training,Gait Training,Home Exercise Program,Joint Mobilizations,Lymphedema Management,Manual Therapy, Patient/Caregiver Education, Self-Care/Home Management,Soft Tissue Mobilization, Therapeutic Activities, Therapeutic Exercises Next Visit Focus/Plan Next Note Type Treatment Note Next Visit Plan Continue with ROM and strengthening, edema management per POC.
--- NOTE | 2022-05-12 15:57 | PT.OTN ---
Current Diagnoses Pain in right ankle and joints of right foot (05/12/22) Stiffness of unspecified ankle, not elsewhere classified (05/12/22) Pain in right foot (05/12/22) Other abnormalities of gait and mobility (05/12/22) History of falling (05/12/22) Physical Therapy Treatment Note PT-OP-A Visit Information Start: 11/15/21 15:38 Freq: Status: Active Protocol: Document 05/12/22 15:15 DCW (Rec: 05/12/22 15:56 DCW [id number]) Out-Patient Physical Therapy Visit Information Visit Information Visit Type Treatment Note Visit Start Time 15:15 Visit Stop Time 16:00 Total Visit Minutes 45 Visit Number 35 Number of DIRECTOR SCRIPT Visits 0 Evaluation Information Evaluation Date 11/15/21 PT-OP-B Current Condition Start: 11/15/21 15:38 Freq: Status: Active Protocol: Document 11/15/21 12:00 DCW (Rec: 11/15/21 17:59 DCW [id number]) Current Condition History of Current Condition Onset Date Long-standing history Current Complaints Gait difficulty, ankle pain, ankle stiffness, low back pain History of Current Condition Pt is a 56 year old male very well known to this clinic presenting with a wildly complicated history. Pt had a tendon transfer surgery on his right ankle late last year in an effort to decrease his tendency to walk on the outside surface of his feet. Shortly after this, pt began to get painful blisters all over his skin and eventually was admitted to the burn [facility] in [facility] for one month, eventually being diagnosed with the autoimmune disorder bullous pemphigus. While being treated for this, there was worry about a bone infection in his foot, possibly secondary to the tendon transfer. Multiple biopsies were taken, which unfortunately then led to a severe fracture in his foot. Pt eventuually needed to have this bone fragment surgically removed. Pt returns to therapy after all of this in hopes to improve the mobility and strength of his ankle, as well as improve hiis gait and stability. Pt currently using a SPC while walking for stability. Fears his ankle has started locking up because he was unable to do much after surgery. Treatment Goals Patient/Caregiver Goals Improve ROM and stretch out his ankle, improve gait stability PT-OP-C Subjective Start: 11/15/21 15:38 Freq: Status: Active Protocol: Document 05/12/22 15:15 DCW (Rec: 05/12/22 15:56 DCW [id number]) OP-PT Subjective Patient Comments Patient Comments Pt carries in his new shoes today, reports they just arrived prior to him leaving his house, would like to try to put them on at end of appointment today. PT-OP-E Functional Tests Start: 11/15/21 15:38 Freq: Status: Active Protocol: Document 11/15/21 12:00 DCW (Rec: 11/15/21 15:55 DCW [id number]) Functional Tests 2 Minute Walk Test Distance 257' Device Used SPC Comments 2.14 PT-OP-G Mobility & Gait Start: 11/15/21 15:38 Freq: Status: Active Protocol: Document 02/17/22 12:00 DCW (Rec: 02/17/22 12:57 DCW [id number]) OP Gait Assessment Assistive Devices Assistive Device None,Straight Cane Gait Deviations General Gait Pattern Antalgic,Decreased Stride Length,Decreased Feet Clearance,Lateral Trunk Lean, Wide Based Gait Factors Limiting Gait Function Factors Limiting Gait Function Decreased Activity Tolerance, Decreased Sensation,Decreased Strength,Limited Range of Motion,Pain,Poor Balance Comments Gait Comments Pt ambulating both with SPC and AD-free, inversion of right foot less prominant than at eval. Knee varus limiting factor in ability to bring knee in line over ankle. PT-OP-H Neuro Start: 11/15/21 15:38 Freq: Status: Active Protocol: Document 02/17/22 12:00 DCW (Rec: 02/17/22 12:57 DCW [id number]) Sensation Evaluation Gross Sensation Gross Sensation Left LE Impaired,Right LE Impaired Sensation Description Numbness Location Details Right Foot Light Touch Absent Sharp/Dull Absent Deep Pressure Absent Protective Sensation Absent Proprioception (Position) Absent Kinesthesia (Movement) Impaired Left Foot Light Touch Absent Sharp/Dull Absent Deep Pressure Absent Protective Sensation Absent Proprioception (Position) Absent Kinesthesia (Movement) Impaired PT-OP-K Range of Motion Start: 11/15/21 15:38 Freq: Status: Active Protocol: Document 02/17/22 12:00 DCW (Rec: 02/17/22 12:57 DCW [id number]) Ankle and Foot Goniometric Range of Motion Ankle and Foot Right Active Testing Position Sitting Plantarflexion 30 Inversion 16 Eversion 5 Comments Dorsiflexion /c knee flexed lacking 2? from neutral PT-OP-Q Treatments Start: 11/15/21 15:38 Freq: Status: Active Protocol: Document 05/12/22 15:15 DCW (Rec: 05/12/22 15:56 DCW [id number]) Manual Therapy Treatment Soft Tissue Mobilization 1 Body Location right medial foot plantarflexor and inv Mobilization Type Myofascial Release,Sustained Pressure,Trigger Point Release Intensity/Depth Moderate Body Position Sitting Joint Mobilizations 1 Joint Talocrual, fibular AP Direction A->P Grade III Body Position Hooklying Taping 1 Body Location J-strap Type of Tape Evita Comments Fore-foot to anterior rutherford and rear-foot to lateral calf, bow-stringed with underwrap to hold tight PT-OP-R Modalities Start: 11/15/21 15:38 Freq: Status: Active Protocol: Document 03/02/22 09:51 SP (Rec: 03/02/22 10:37 SP [id number]) Hot Pack/Cold Pack Treatment Cold Pack Location right foot/ankle Patient Position Hooklying Treatment Duration (minutes) 10 Patient Tolerance Good Comments cryocuff for pain and edema reduction PT-OP-T Assessment and Plan Start: 11/15/21 15:38 Freq: Status: Active Protocol: Document 05/12/22 15:15 DCW (Rec: 05/12/22 15:56 DCW [id number]) Physical Therapy Assessment Goals Three Impairment Pt ambulates 257' during 2 MWT using SPC with fatigue Usp Goal (LTG) Pt to tolerate full 6 MWT without rest break while walking at least 600' using LRAD to show improved activity tolerance and decreasing falls risk. LTG Duration 05/18/22 Two Impairment Significantly limited right ankle ROM s/p surgical tendon transfer Usp Goal (LTG) Pt to increase R ankle AROM to DF 0? and Eversion 10?in order to allow pt to help normalize gait pattern LTG Duration 05/18/22 One Impairment Pt does not have an appropriate home exercise program Short Term Goal (STG) Pt to be independent and compliant with an appropriate HEP STG Duration goal met Usp Goal (LTG) Patient will tolerate progression of therapeutic exercises to work on flexibility, strengthening, and edema reduction of right foot and ankle. LTG Duration 05/18/22 Assessment Summary Assessment Pt able to walk out of clinic today between taping and new shoes with much more stability in LE, almost no inversion roll. Pt happy with overall stability at the moment. Physical Therapy Plan Frequency and Duration Frequency of Treatment 2x/Week Plan of Care Start Date 02/17/22 Plan of Care End Date 05/18/22 Therapeutic Interventions Therapeutic Interventions Aquatic Therapy,Balance Training,Gait Training,Home Exercise Program,Joint Mobilizations,Lymphedema Management,Manual Therapy, Patient/Caregiver Education, Self-Care/Home Management,Soft Tissue Mobilization, Therapeutic Activities, Therapeutic Exercises Next Visit Focus/Plan Next Note Type Progress Note Next Visit Plan Continue with ROM and strengthening, edema management per POC.
--- NOTE | 2022-05-17 12:00 | PT.OTN ---
Current Diagnoses Pain in right ankle and joints of right foot (05/17/22) Stiffness of unspecified ankle, not elsewhere classified (05/17/22) Pain in right foot (05/17/22) Other abnormalities of gait and mobility (05/17/22) History of falling (05/17/22) Physical Therapy Treatment Note PT-OP-A Visit Information Start: 11/15/21 15:38 Freq: Status: Active Protocol: Document 05/17/22 11:15 DCW (Rec: 05/17/22 12:00 DCW [id number]) Out-Patient Physical Therapy Visit Information Visit Information Visit Type Treatment Note Visit Start Time 11:15 Visit Stop Time 12:00 Total Visit Minutes 45 Visit Number 36 Number of VESSEL SCRAPPER Visits 0 Evaluation Information Evaluation Date 11/15/21 PT-OP-B Current Condition Start: 11/15/21 15:38 Freq: Status: Active Protocol: Document 11/15/21 12:00 DCW (Rec: 11/15/21 17:59 DCW [id number]) Current Condition History of Current Condition Onset Date Long-standing history Current Complaints Gait difficulty, ankle pain, ankle stiffness, low back pain History of Current Condition Pt is a 56 year old male very well known to this clinic presenting with a wildly complicated history. Pt had a tendon transfer surgery on his right ankle late last year in an effort to decrease his tendency to walk on the outside surface of his feet. Shortly after this, pt began to get painful blisters all over his skin and eventually was admitted to the burn [facility] in [facility] for one month, eventually being diagnosed with the autoimmune disorder bullous pemphigus. While being treated for this, there was worry about a bone infection in his foot, possibly secondary to the tendon transfer. Multiple biopsies were taken, which unfortunately then led to a severe fracture in his foot. Pt eventuually needed to have this bone fragment surgically removed. Pt returns to therapy after all of this in hopes to improve the mobility and strength of his ankle, as well as improve hiis gait and stability. Pt currently using a SPC while walking for stability. Fears his ankle has started locking up because he was unable to do much after surgery. Treatment Goals Patient/Caregiver Goals Improve ROM and stretch out his ankle, improve gait stability PT-OP-C Subjective Start: 11/15/21 15:38 Freq: Status: Active Protocol: Document 05/17/22 11:15 DCW (Rec: 05/17/22 12:00 DCW [id number]) OP-PT Subjective Patient Comments Patient Comments Pt feels his shoes have helped quite a bit, has been walking more, but it's killing my knees and back. PT-OP-E Functional Tests Start: 11/15/21 15:38 Freq: Status: Active Protocol: Document 11/15/21 12:00 DCW (Rec: 11/15/21 15:55 DCW [id number]) Functional Tests 2 Minute Walk Test Distance 257' Device Used SPC Comments 2.14 PT-OP-G Mobility & Gait Start: 11/15/21 15:38 Freq: Status: Active Protocol: Document 02/17/22 12:00 DCW (Rec: 02/17/22 12:57 DCW [id number]) OP Gait Assessment Assistive Devices Assistive Device None,Straight Cane Gait Deviations General Gait Pattern Antalgic,Decreased Stride Length,Decreased Feet Clearance,Lateral Trunk Lean, Wide Based Gait Factors Limiting Gait Function Factors Limiting Gait Function Decreased Activity Tolerance, Decreased Sensation,Decreased Strength,Limited Range of Motion,Pain,Poor Balance Comments Gait Comments Pt ambulating both with SPC and AD-free, inversion of right foot less prominant than at eval. Knee varus limiting factor in ability to bring knee in line over ankle. PT-OP-H Neuro Start: 11/15/21 15:38 Freq: Status: Active Protocol: Document 02/17/22 12:00 DCW (Rec: 02/17/22 12:57 DCW [id number]) Sensation Evaluation Gross Sensation Gross Sensation Left LE Impaired,Right LE Impaired Sensation Description Numbness Location Details Right Foot Light Touch Absent Sharp/Dull Absent Deep Pressure Absent Protective Sensation Absent Proprioception (Position) Absent Kinesthesia (Movement) Impaired Left Foot Light Touch Absent Sharp/Dull Absent Deep Pressure Absent Protective Sensation Absent Proprioception (Position) Absent Kinesthesia (Movement) Impaired PT-OP-K Range of Motion Start: 11/15/21 15:38 Freq: Status: Active Protocol: Document 02/17/22 12:00 DCW (Rec: 02/17/22 12:57 DCW [id number]) Ankle and Foot Goniometric Range of Motion Ankle and Foot Right Active Testing Position Sitting Plantarflexion 30 Inversion 16 Eversion 5 Comments Dorsiflexion /c knee flexed lacking 2? from neutral PT-OP-Q Treatments Start: 11/15/21 15:38 Freq: Status: Active Protocol: Document 05/17/22 11:15 DCW (Rec: 05/17/22 12:00 DCW [id number]) Manual Therapy Treatment Soft Tissue Mobilization 1 Body Location right medial foot plantarflexor and inv Mobilization Type Myofascial Release,Sustained Pressure,Trigger Point Release Intensity/Depth Moderate Body Position Sitting Joint Mobilizations 1 Joint Talocrual, fibular AP Direction A->P Grade III Body Position Hooklying Taping 1 Body Location J-strap Type of Tape Evita Comments Fore-foot to anterior rutherford and rear-foot to lateral calf, bow-stringed with underwrap to hold tight PT-OP-R Modalities Start: 11/15/21 15:38 Freq: Status: Active Protocol: Document 03/02/22 09:51 SP (Rec: 03/02/22 10:37 SP [id number]) Hot Pack/Cold Pack Treatment Cold Pack Location right foot/ankle Patient Position Hooklying Treatment Duration (minutes) 10 Patient Tolerance Good Comments cryocuff for pain and edema reduction PT-OP-T Assessment and Plan Start: 11/15/21 15:38 Freq: Status: Active Protocol: Document 05/17/22 11:15 DCW (Rec: 05/17/22 12:00 DCW [id number]) Physical Therapy Assessment Goals Three Impairment Pt ambulates 257' during 2 MWT using SPC with fatigue Fdc Goal (LTG) Pt to tolerate full 6 MWT without rest break while walking at least 600' using LRAD to show improved activity tolerance and decreasing falls risk. LTG Duration 05/18/22 Two Impairment Significantly limited right ankle ROM s/p surgical tendon transfer Fdc Goal (LTG) Pt to increase R ankle AROM to DF 0? and Eversion 10?in order to allow pt to help normalize gait pattern LTG Duration 05/18/22 One Impairment Pt does not have an appropriate home exercise program Short Term Goal (STG) Pt to be independent and compliant with an appropriate HEP STG Duration goal met Fdc Goal (LTG) Patient will tolerate progression of therapeutic exercises to work on flexibility, strengthening, and edema reduction of right foot and ankle. LTG Duration 05/18/22 Assessment Summary Assessment Showing some slight improvements today, less edema , more anatomical structures visible around right ankle, less overall resistance getting ankle into a neutral position, still tends to pull into an inverted position without assist. Ambulating better with new shoes. Physical Therapy Plan Frequency and Duration Frequency of Treatment 2x/Week Plan of Care Start Date 02/17/22 Plan of Care End Date 05/18/22 Therapeutic Interventions Therapeutic Interventions Aquatic Therapy,Balance Training,Gait Training,Home Exercise Program,Joint Mobilizations,Lymphedema Management,Manual Therapy, Patient/Caregiver Education, Self-Care/Home Management,Soft Tissue Mobilization, Therapeutic Activities, Therapeutic Exercises Next Visit Focus/Plan Next Note Type Progress Note Next Visit Plan Continue with ROM and strengthening, edema management per POC.
--- NOTE | 2022-05-19 12:56 | PT.OTN ---
Current Diagnoses Pain in right ankle and joints of right foot (05/19/22) Stiffness of unspecified ankle, not elsewhere classified (05/19/22) Pain in right foot (05/19/22) Other abnormalities of gait and mobility (05/19/22) History of falling (05/19/22) Physical Therapy Treatment Note PT-OP-A Visit Information Start: 11/15/21 15:38 Freq: Status: Active Protocol: Document 05/19/22 12:00 DCW (Rec: 05/19/22 12:56 DCW [id number]) Out-Patient Physical Therapy Visit Information Visit Information Visit Type Progress Note Visit Start Time 12:00 Visit Stop Time 12:45 Total Visit Minutes 45 Visit Number 37 Number of SOLAR LAB TECHNICIAN Visits 0 Evaluation Information Evaluation Date 11/15/21 PT-OP-B Current Condition Start: 11/15/21 15:38 Freq: Status: Active Protocol: Document 11/15/21 12:00 DCW (Rec: 11/15/21 17:59 DCW [id number]) Current Condition History of Current Condition Onset Date Long-standing history Current Complaints Gait difficulty, ankle pain, ankle stiffness, low back pain History of Current Condition Pt is a 56 year old male very well known to this clinic presenting with a wildly complicated history. Pt had a tendon transfer surgery on his right ankle late last year in an effort to decrease his tendency to walk on the outside surface of his feet. Shortly after this, pt began to get painful blisters all over his skin and eventually was admitted to the burn [facility] in [facility] for one month, eventually being diagnosed with the autoimmune disorder bullous pemphigus. While being treated for this, there was worry about a bone infection in his foot, possibly secondary to the tendon transfer. Multiple biopsies were taken, which unfortunately then led to a severe fracture in his foot. Pt eventuually needed to have this bone fragment surgically removed. Pt returns to therapy after all of this in hopes to improve the mobility and strength of his ankle, as well as improve hiis gait and stability. Pt currently using a SPC while walking for stability. Fears his ankle has started locking up because he was unable to do much after surgery. Treatment Goals Patient/Caregiver Goals Improve ROM and stretch out his ankle, improve gait stability PT-OP-C Subjective Start: 11/15/21 15:38 Freq: Status: Active Protocol: Document 05/19/22 12:00 DCW (Rec: 05/19/22 12:56 DCW [id number]) OP-PT Subjective Patient Comments Patient Comments Pt notes his back has really been bothering him. PT-OP-E Functional Tests Start: 11/15/21 15:38 Freq: Status: Active Protocol: Document 05/19/22 12:00 DCW (Rec: 05/19/22 12:46 DCW [id number]) Functional Tests 2 Minute Walk Test Distance 342' Device Used None Comments 2.85 ft/sec PT-OP-G Mobility & Gait Start: 11/15/21 15:38 Freq: Status: Active Protocol: Document 05/19/22 12:00 DCW (Rec: 05/19/22 12:46 DCW [id number]) OP Gait Assessment Gait Gait Assistance Required: Independent Distance (Feet) 342 Assistive Devices Assistive Device None Gait Deviations General Gait Pattern Antalgic,Decreased Stride Length,Decreased Feet Clearance,Lateral Trunk Lean, Wide Based Gait Factors Limiting Gait Function Factors Limiting Gait Function Decreased Activity Tolerance, Decreased Sensation,Decreased Strength,Limited Range of Motion,Pain,Poor Balance Comments Gait Comments Pt ambulating AD-free, inversion of right foot less prominant than at eval. Knee varus limiting factor in ability to bring knee in line over ankle. PT-OP-H Neuro Start: 11/15/21 15:38 Freq: Status: Active Protocol: Document 05/19/22 12:00 DCW (Rec: 05/19/22 12:46 DCW [id number]) Sensation Evaluation Gross Sensation Gross Sensation Left LE Impaired,Right LE Impaired Sensation Description Numbness Location Details Right Foot Light Touch Absent Sharp/Dull Absent Deep Pressure Absent Protective Sensation Absent Proprioception (Position) Absent Kinesthesia (Movement) Impaired Left Foot Light Touch Absent Sharp/Dull Absent Deep Pressure Absent Protective Sensation Absent Proprioception (Position) Absent Kinesthesia (Movement) Impaired PT-OP-K Range of Motion Start: 11/15/21 15:38 Freq: Status: Active Protocol: Document 05/19/22 12:00 DCW (Rec: 05/19/22 12:46 DCW [id number]) Ankle and Foot Goniometric Range of Motion Ankle and Foot Right Active Testing Position Sitting Plantarflexion 32 Inversion 21 Eversion 9 Comments Dorsiflexion both /c knee flexed and extended lacking 1? from neutral PT-OP-Q Treatments Start: 11/15/21 15:38 Freq: Status: Active Protocol: Document 05/19/22 12:00 DCW (Rec: 05/19/22 12:56 DCW [id number]) Manual Therapy Treatment Soft Tissue Mobilization 1 Body Location right medial foot plantarflexor and inv Mobilization Type Myofascial Release,Sustained Pressure,Trigger Point Release Intensity/Depth Moderate Body Position Sitting Joint Mobilizations 1 Joint Talocrual, fibular AP Direction A->P Grade III Body Position Hooklying Taping 1 Body Location J-strap Type of Tape Evita Comments Fore-foot to anterior rutherford and rear-foot to lateral calf, bow-stringed with underwrap to hold tight PT-OP-R Modalities Start: 11/15/21 15:38 Freq: Status: Active Protocol: Document 03/02/22 09:51 SP (Rec: 03/02/22 10:37 SP [id number]) Hot Pack/Cold Pack Treatment Cold Pack Location right foot/ankle Patient Position Hooklying Treatment Duration (minutes) 10 Patient Tolerance Good Comments cryocuff for pain and edema reduction PT-OP-T Assessment and Plan Start: 11/15/21 15:38 Freq: Status: Active Protocol: Document 05/19/22 12:00 DCW (Rec: 05/19/22 12:56 DCW [id number]) Physical Therapy Assessment Goals Three Impairment Pt ambulates 257' during 2 MWT using SPC with fatigue Pressure Tester Goal (LTG) Pt to tolerate full 6 MWT without rest break while walking at least 600' using LRAD to show improved activity tolerance and decreasing falls risk. LTG Duration 06/19/22 - Improving (342' 2MWT) Two Impairment Significantly limited right ankle ROM s/p surgical tendon transfer Pressure Tester Goal (LTG) Pt to increase R ankle AROM to DF 0? and Eversion 10?in order to allow pt to help normalize gait pattern LTG Duration 06/19/22 - Improving One Impairment Pt does not have an appropriate home exercise program Short Term Goal (STG) Pt to be independent and compliant with an appropriate HEP STG Duration goal met Senior Care Goal (LTG) Patient will tolerate progression of therapeutic exercises to work on flexibility, strengthening, and edema reduction of right foot and ankle. LTG Duration 06/19/22 - Improving Progress Towards Goals Progress Towards Goals Progressing Toward Goals Assessment Summary Assessment Showing some improvement in ROM, great improvement in gait distance during 2MWT. Approaching goals. May start to be limited with advancement due to other body systems. Does have waiting referrals for vertigo, low back, and hip , among others. May benefit from a few more weeks focusing on his ankle, and then discharge in order to start a new body part. Physical Therapy Plan Frequency and Duration Frequency of Treatment 2x/Week Plan of Care Start Date 05/19/22 Plan of Care End Date 07/18/22 Therapeutic Interventions Therapeutic Interventions Aquatic Therapy,Balance Training,Gait Training,Home Exercise Program,Joint Mobilizations,Lymphedema Management,Manual Therapy, Patient/Caregiver Education, Self-Care/Home Management,Soft Tissue Mobilization, Therapeutic Activities, Therapeutic Exercises Next Visit Focus/Plan Next Note Type Treatment Note Next Visit Plan Continue with ROM and strengthening, edema management per POC.
--- NOTE | 2022-05-19 12:57 | PT.OPPOC ---
Physical, Occupational & Speech Therapy At [facility] Current Diagnoses Pain in right ankle and joints of right foot (05/19/22) Stiffness of unspecified ankle, not elsewhere classified (05/19/22) Pain in right foot (05/19/22) Other abnormalities of gait and mobility (05/19/22) History of falling (05/19/22) Visit Care Team Role Provider Type Jhon Taylor MD Family Provider Physician Primary Care Provider Specialty: Internal Medicine Address: [address] [place] [address], [id number] Email: [email or web address] Terry Rosado DPM Attending Provider Non-Staff Referring Provider Specialty: Podiatry Address: [address] [place] [address], [id number] Email: Plan Of Care PT-OP-T Assessment and Plan Start: 11/15/21 15:38 Freq: Status: Active Protocol: Document 05/19/22 12:00 DCW (Rec: 05/19/22 12:56 DCW [id number]) Physical Therapy Assessment Goals Three Impairment Pt ambulates 257' during 2 MWT using SPC with fatigue Ict Programmer Goal (LTG) Pt to tolerate full 6 MWT without rest break while walking at least 600' using LRAD to show improved activity tolerance and decreasing falls risk. LTG Duration 06/19/22 - Improving (342' 2MWT) Two Impairment Significantly limited right ankle ROM s/p surgical tendon transfer [place] Goal (LTG) Pt to increase R ankle AROM to DF 0? and Eversion 10?in order to allow pt to help normalize gait pattern LTG Duration 06/19/22 - Improving One Impairment Pt does not have an appropriate home exercise program Short Term Goal (STG) Pt to be independent and compliant with an appropriate HEP STG Duration goal met Ict Programmer Goal (LTG) Patient will tolerate progression of therapeutic exercises to work on flexibility, strengthening, and edema reduction of right foot and ankle. LTG Duration 06/19/22 - Improving Progress Towards Goals Progress Towards Goals Progressing Toward Goals Assessment Summary Assessment Showing some improvement in ROM, great improvement in gait distance during 2MWT. Approaching goals. May start to be limited with advancement due to other body systems. Does have waiting referrals for vertigo, low back, and hip , among others. May benefit from a few more weeks focusing on his ankle, and then discharge in order to start a new body part. Physical Therapy Plan Frequency and Duration Frequency of Treatment 2x/Week Plan of Care Start Date 05/19/22 Plan of Care End Date 07/18/22 Therapeutic Interventions Therapeutic Interventions Aquatic Therapy,Balance Training,Gait Training,Home Exercise Program,Joint Mobilizations,Lymphedema Management,Manual Therapy, Patient/Caregiver Education, Self-Care/Home Management,Soft Tissue Mobilization, Therapeutic Activities, Therapeutic Exercises Next Visit Focus/Plan Next Note Type Treatment Note Next Visit Plan Continue with ROM and strengthening, edema management per POC. Plan of Care Dates Plan of Care Start Date 05/19/22 Plan of Care End Date 07/18/22 Electronically Signed by: Tong Card, PT 05/19/22 1257 If you are in agreement with this Plan of Care, please return a signed and dated copy. I have reviewed this Plan of Care and certify that the skilled therapy services above are required to meet the patient?s needs. Physician Signature Date Printed Name and Credentials Clinical Instructor Signature Printed Name and Credentials
--- NOTE | 2022-05-23 11:58 | PT.OTN ---
Current Diagnoses Pain in right ankle and joints of right foot (05/23/22) Stiffness of unspecified ankle, not elsewhere classified (05/23/22) Pain in right foot (05/23/22) Other abnormalities of gait and mobility (05/23/22) History of falling (05/23/22) Physical Therapy Treatment Note PT-OP-A Visit Information Start: 11/15/21 15:38 Freq: Status: Active Protocol: Document 05/23/22 11:15 DCW (Rec: 05/23/22 11:57 DCW [id number]) Out-Patient Physical Therapy Visit Information Visit Information Visit Type Treatment Note Visit Start Time 11:15 Visit Stop Time 11:55 Total Visit Minutes 40 Visit Number 38 Number of TRACK PATROL Visits 0 Evaluation Information Evaluation Date 11/15/21 PT-OP-B Current Condition Start: 11/15/21 15:38 Freq: Status: Active Protocol: Document 11/15/21 12:00 DCW (Rec: 11/15/21 17:59 DCW [id number]) Current Condition History of Current Condition Onset Date Long-standing history Current Complaints Gait difficulty, ankle pain, ankle stiffness, low back pain History of Current Condition Pt is a 56 year old male very well known to this clinic presenting with a wildly complicated history. Pt had a tendon transfer surgery on his right ankle late last year in an effort to decrease his tendency to walk on the outside surface of his feet. Shortly after this, pt began to get painful blisters all over his skin and eventually was admitted to the burn [facility] in [facility] for one month, eventually being diagnosed with the autoimmune disorder bullous pemphigus. While being treated for this, there was worry about a bone infection in his foot, possibly secondary to the tendon transfer. Multiple biopsies were taken, which unfortunately then led to a severe fracture in his foot. Pt eventuually needed to have this bone fragment surgically removed. Pt returns to therapy after all of this in hopes to improve the mobility and strength of his ankle, as well as improve hiis gait and stability. Pt currently using a SPC while walking for stability. Fears his ankle has started locking up because he was unable to do much after surgery. Treatment Goals Patient/Caregiver Goals Improve ROM and stretch out his ankle, improve gait stability PT-OP-C Subjective Start: 11/15/21 15:38 Freq: Status: Active Protocol: Document 05/23/22 11:15 DCW (Rec: 05/23/22 11:57 DCW [id number]) OP-PT Subjective Patient Comments Patient Comments Pt admits he is feeling pretty messed up today, admits he once again rolled his ankle pretty badly on Sunday. PT-OP-E Functional Tests Start: 11/15/21 15:38 Freq: Status: Active Protocol: Document 05/19/22 12:00 DCW (Rec: 05/19/22 12:46 DCW [id number]) Functional Tests 2 Minute Walk Test Distance 342' Device Used None Comments 2.85 ft/sec PT-OP-G Mobility & Gait Start: 11/15/21 15:38 Freq: Status: Active Protocol: Document 05/19/22 12:00 DCW (Rec: 05/19/22 12:46 DCW [id number]) OP Gait Assessment Gait Gait Assistance Required: Independent Distance (Feet) 342 Assistive Devices Assistive Device None Gait Deviations General Gait Pattern Antalgic,Decreased Stride Length,Decreased Feet Clearance,Lateral Trunk Lean, Wide Based Gait Factors Limiting Gait Function Factors Limiting Gait Function Decreased Activity Tolerance, Decreased Sensation,Decreased Strength,Limited Range of Motion,Pain,Poor Balance Comments Gait Comments Pt ambulating AD-free, inversion of right foot less prominant than at eval. Knee varus limiting factor in ability to bring knee in line over ankle. PT-OP-H Neuro Start: 11/15/21 15:38 Freq: Status: Active Protocol: Document 05/19/22 12:00 DCW (Rec: 05/19/22 12:46 DCW [id number]) Sensation Evaluation Gross Sensation Gross Sensation Left LE Impaired,Right LE Impaired Sensation Description Numbness Location Details Right Foot Light Touch Absent Sharp/Dull Absent Deep Pressure Absent Protective Sensation Absent Proprioception (Position) Absent Kinesthesia (Movement) Impaired Left Foot Light Touch Absent Sharp/Dull Absent Deep Pressure Absent Protective Sensation Absent Proprioception (Position) Absent Kinesthesia (Movement) Impaired PT-OP-K Range of Motion Start: 11/15/21 15:38 Freq: Status: Active Protocol: Document 05/19/22 12:00 DCW (Rec: 05/19/22 12:46 DCW [id number]) Ankle and Foot Goniometric Range of Motion Ankle and Foot Right Active Testing Position Sitting Plantarflexion 32 Inversion 21 Eversion 9 Comments Dorsiflexion both /c knee flexed and extended lacking 1? from neutral PT-OP-Q Treatments Start: 11/15/21 15:38 Freq: Status: Active Protocol: Document 05/23/22 11:15 DCW (Rec: 05/23/22 11:57 DCW [id number]) Manual Therapy Treatment Soft Tissue Mobilization 1 Body Location right medial foot plantarflexor and inv Mobilization Type Myofascial Release,Sustained Pressure,Trigger Point Release Intensity/Depth Moderate Body Position Sitting Joint Mobilizations 1 Joint Talocrual, fibular AP Direction A->P Grade III Body Position Hooklying Taping 1 Body Location J-strap Type of Tape Evita Comments Fore-foot to anterior rutherford and rear-foot to lateral calf, bow-stringed with underwrap to hold tight PT-OP-R Modalities Start: 11/15/21 15:38 Freq: Status: Active Protocol: Document 03/02/22 09:51 SP (Rec: 03/02/22 10:37 SP [id number]) Hot Pack/Cold Pack Treatment Cold Pack Location right foot/ankle Patient Position Hooklying Treatment Duration (minutes) 10 Patient Tolerance Good Comments cryocuff for pain and edema reduction PT-OP-T Assessment and Plan Start: 11/15/21 15:38 Freq: Status: Active Protocol: Document 05/23/22 11:15 DCW (Rec: 05/23/22 11:57 DCW [id number]) Physical Therapy Assessment Goals Three Impairment Pt ambulates 257' during 2 MWT using SPC with fatigue Fpc Goal (LTG) Pt to tolerate full 6 MWT without rest break while walking at least 600' using LRAD to show improved activity tolerance and decreasing falls risk. LTG Duration 06/19/22 - Improving (342' 2MWT) Two Impairment Significantly limited right ankle ROM s/p surgical tendon transfer Fpc Goal (LTG) Pt to increase R ankle AROM to DF 0? and Eversion 10?in order to allow pt to help normalize gait pattern LTG Duration 06/19/22 - Improving One Impairment Pt does not have an appropriate home exercise program Short Term Goal (STG) Pt to be independent and compliant with an appropriate HEP STG Duration goal met [employer] Goal (LTG) Patient will tolerate progression of therapeutic exercises to work on flexibility, strengthening, and edema reduction of right foot and ankle. LTG Duration 06/19/22 - Improving Progress Towards Goals Progress Towards Goals Progressing Toward Goals Assessment Summary Assessment Pt getting frustrated with his constant rolling of his ankle , feels like it is impossible for him to progress. Still is showing improved ROM despite increased edema and tenderness today. Physical Therapy Plan Frequency and Duration Frequency of Treatment 2x/Week Plan of Care Start Date 05/19/22 Plan of Care End Date 07/18/22 Therapeutic Interventions Therapeutic Interventions Aquatic Therapy,Balance Training,Gait Training,Home Exercise Program,Joint Mobilizations,Lymphedema Management,Manual Therapy, Patient/Caregiver Education, Self-Care/Home Management,Soft Tissue Mobilization, Therapeutic Activities, Therapeutic Exercises Next Visit Focus/Plan Next Note Type Treatment Note Next Visit Plan Continue with ROM and strengthening, edema management per POC.
--- NOTE | 2022-05-26 14:29 | PT.OTN ---
Current Diagnoses Pain in right ankle and joints of right foot (05/26/22) Stiffness of unspecified ankle, not elsewhere classified (05/26/22) Pain in right foot (05/26/22) Other abnormalities of gait and mobility (05/26/22) History of falling (05/26/22) Physical Therapy Treatment Note PT-OP-A Visit Information Start: 11/15/21 15:38 Freq: Status: Active Protocol: Document 05/26/22 13:45 DCW (Rec: 05/26/22 14:28 DCW [id number]) Out-Patient Physical Therapy Visit Information Visit Information Visit Type Treatment Note Visit Start Time 13:45 Visit Stop Time 14:30 Total Visit Minutes 45 Visit Number 39 Number of CUSTOMER ACCOUNT MANAGER Visits 0 Evaluation Information Evaluation Date 11/15/21 PT-OP-B Current Condition Start: 11/15/21 15:38 Freq: Status: Active Protocol: Document 11/15/21 12:00 DCW (Rec: 11/15/21 17:59 DCW [id number]) Current Condition History of Current Condition Onset Date Long-standing history Current Complaints Gait difficulty, ankle pain, ankle stiffness, low back pain History of Current Condition Pt is a 56 year old male very well known to this clinic presenting with a wildly complicated history. Pt had a tendon transfer surgery on his right ankle late last year in an effort to decrease his tendency to walk on the outside surface of his feet. Shortly after this, pt began to get painful blisters all over his skin and eventually was admitted to the burn soliz in [facility] for one month, eventually being diagnosed with the autoimmune disorder bullous pemphigus. While being treated for this, there was worry about a bone infection in his foot, possibly secondary to the tendon transfer. Multiple biopsies were taken, which unfortunately then led to a severe fracture in his foot. Pt eventuually needed to have this bone fragment surgically removed. Pt returns to therapy after all of this in hopes to improve the mobility and strength of his ankle, as well as improve hiis gait and stability. Pt currently using a SPC while walking for stability. Fears his ankle has started locking up because he was unable to do much after surgery. Treatment Goals Patient/Caregiver Goals Improve ROM and stretch out his ankle, improve gait stability PT-OP-C Subjective Start: 11/15/21 15:38 Freq: Status: Active Protocol: Document 05/26/22 13:45 DCW (Rec: 05/26/22 14:28 DCW [id number]) OP-PT Subjective Patient Comments Patient Comments Pt reports his ankle is a lot better than the back today. PT-OP-E Functional Tests Start: 11/15/21 15:38 Freq: Status: Active Protocol: Document 05/19/22 12:00 DCW (Rec: 05/19/22 12:46 DCW [id number]) Functional Tests 2 Minute Walk Test Distance 342' Device Used None Comments 2.85 ft/sec PT-OP-G Mobility & Gait Start: 11/15/21 15:38 Freq: Status: Active Protocol: Document 05/19/22 12:00 DCW (Rec: 05/19/22 12:46 DCW [id number]) OP Gait Assessment Gait Gait Assistance Required: Independent Distance (Feet) 342 Assistive Devices Assistive Device None Gait Deviations General Gait Pattern Antalgic,Decreased Stride Length,Decreased Feet Clearance,Lateral Trunk Lean, Wide Based Gait Factors Limiting Gait Function Factors Limiting Gait Function Decreased Activity Tolerance, Decreased Sensation,Decreased Strength,Limited Range of Motion,Pain,Poor Balance Comments Gait Comments Pt ambulating AD-free, inversion of right foot less prominant than at eval. Knee varus limiting factor in ability to bring knee in line over ankle. PT-OP-H Neuro Start: 11/15/21 15:38 Freq: Status: Active Protocol: Document 05/19/22 12:00 DCW (Rec: 05/19/22 12:46 DCW [id number]) Sensation Evaluation Gross Sensation Gross Sensation Left LE Impaired,Right LE Impaired Sensation Description Numbness Location Details Right Foot Light Touch Absent Sharp/Dull Absent Deep Pressure Absent Protective Sensation Absent Proprioception (Position) Absent Kinesthesia (Movement) Impaired Left Foot Light Touch Absent Sharp/Dull Absent Deep Pressure Absent Protective Sensation Absent Proprioception (Position) Absent Kinesthesia (Movement) Impaired PT-OP-K Range of Motion Start: 11/15/21 15:38 Freq: Status: Active Protocol: Document 05/19/22 12:00 DCW (Rec: 05/19/22 12:46 DCW [id number]) Ankle and Foot Goniometric Range of Motion Ankle and Foot Right Active Testing Position Sitting Plantarflexion 32 Inversion 21 Eversion 9 Comments Dorsiflexion both /c knee flexed and extended lacking 1? from neutral PT-OP-Q Treatments Start: 11/15/21 15:38 Freq: Status: Active Protocol: Document 05/26/22 13:45 DCW (Rec: 05/26/22 14:28 DCW [id number]) Manual Therapy Treatment Soft Tissue Mobilization 1 Body Location right medial foot plantarflexor and inv Mobilization Type Myofascial Release,Sustained Pressure,Trigger Point Release Intensity/Depth Moderate Body Position Sitting Joint Mobilizations 1 Joint Talocrual, fibular AP Direction A->P Grade III Body Position Hooklying Taping 1 Body Location J-strap Type of Tape Evita Comments Fore-foot to anterior rutherford and rear-foot to lateral calf, bow-stringed with underwrap to hold tight PT-OP-R Modalities Start: 11/15/21 15:38 Freq: Status: Active Protocol: Document 03/02/22 09:51 SP (Rec: 03/02/22 10:37 SP [id number]) Hot Pack/Cold Pack Treatment Cold Pack Location right foot/ankle Patient Position Hooklying Treatment Duration (minutes) 10 Patient Tolerance Good Comments cryocuff for pain and edema reduction PT-OP-T Assessment and Plan Start: 11/15/21 15:38 Freq: Status: Active Protocol: Document 05/26/22 13:45 DCW (Rec: 05/26/22 14:28 DCW [id number]) Physical Therapy Assessment Goals Three Impairment Pt ambulates 257' during 2 MWT using SPC with fatigue Pharmaceutical Sales Representative Goal (LTG) Pt to tolerate full 6 MWT without rest break while walking at least 600' using LRAD to show improved activity tolerance and decreasing falls risk. LTG Duration 06/19/22 - Improving (342' 2MWT) Two Impairment Significantly limited right ankle ROM s/p surgical tendon transfer Pharmaceutical Sales Representative Goal (LTG) Pt to increase R ankle AROM to DF 0? and Eversion 10?in order to allow pt to help normalize gait pattern LTG Duration 06/19/22 - Improving One Impairment Pt does not have an appropriate home exercise program Short Term Goal (STG) Pt to be independent and compliant with an appropriate HEP STG Duration goal met Correction Goal (LTG) Patient will tolerate progression of therapeutic exercises to work on flexibility, strengthening, and edema reduction of right foot and ankle. LTG Duration 06/19/22 - Improving Progress Towards Goals Progress Towards Goals Progressing Toward Goals Assessment Summary Assessment Pt would like to transition from ankle to focus more on his low back and vertigo and shoulder. Will continue to work on ankle for the next two weeks, and then discharge for a new evaluation next month. Physical Therapy Plan Frequency and Duration Frequency of Treatment 2x/Week Plan of Care Start Date 05/19/22 Plan of Care End Date 07/18/22 Therapeutic Interventions Therapeutic Interventions Aquatic Therapy,Balance Training,Gait Training,Home Exercise Program,Joint Mobilizations,Lymphedema Management,Manual Therapy, Patient/Caregiver Education, Self-Care/Home Management,Soft Tissue Mobilization, Therapeutic Activities, Therapeutic Exercises Next Visit Focus/Plan Next Note Type Treatment Note Next Visit Plan Continue with ROM and strengthening, edema management per POC.
--- NOTE | 2022-05-30 12:03 | PT.OTN ---
Current Diagnoses Pain in right ankle and joints of right foot (05/30/22) Stiffness of unspecified ankle, not elsewhere classified (05/30/22) Pain in right foot (05/30/22) Other abnormalities of gait and mobility (05/30/22) History of falling (05/30/22) Physical Therapy Treatment Note PT-OP-A Visit Information Start: 11/15/21 15:38 Freq: Status: Active Protocol: Document 05/30/22 11:18 DCW (Rec: 05/30/22 12:02 DCW [id number]) Out-Patient Physical Therapy Visit Information Visit Information Visit Type Treatment Note Visit Start Time 11:18 Visit Stop Time 12:00 Total Visit Minutes 42 Visit Number 40 Number of EMERGENCY NURSE Visits 0 Evaluation Information Evaluation Date 11/15/21 PT-OP-B Current Condition Start: 11/15/21 15:38 Freq: Status: Active Protocol: Document 11/15/21 12:00 DCW (Rec: 11/15/21 17:59 DCW [id number]) Current Condition History of Current Condition Onset Date Long-standing history Current Complaints Gait difficulty, ankle pain, ankle stiffness, low back pain History of Current Condition Pt is a 56 year old male very well known to this clinic presenting with a wildly complicated history. Pt had a tendon transfer surgery on his right ankle late last year in an effort to decrease his tendency to walk on the outside surface of his feet. Shortly after this, pt began to get painful blisters all over his skin and eventually was admitted to the burn [facility]iz in [facility] for one month, eventually being diagnosed with the autoimmune disorder bullous pemphigus. While being treated for this, there was worry about a bone infection in his foot, possibly secondary to the tendon transfer. Multiple biopsies were taken, which unfortunately then led to a severe fracture in his foot. Pt eventuually needed to have this bone fragment surgically removed. Pt returns to therapy after all of this in hopes to improve the mobility and strength of his ankle, as well as improve hiis gait and stability. Pt currently using a SPC while walking for stability. Fears his ankle has started locking up because he was unable to do much after surgery. Treatment Goals Patient/Caregiver Goals Improve ROM and stretch out his ankle, improve gait stability PT-OP-C Subjective Start: 11/15/21 15:38 Freq: Status: Active Protocol: Document 05/30/22 11:18 DCW (Rec: 05/30/22 12:02 DCW [id number]) OP-PT Subjective Patient Comments Patient Comments I'm doing alright with the foot, the back not so much. PT-OP-E Functional Tests Start: 11/15/21 15:38 Freq: Status: Active Protocol: Document 05/19/22 12:00 DCW (Rec: 05/19/22 12:46 DCW [id number]) Functional Tests 2 Minute Walk Test Distance 342' Device Used None Comments 2.85 ft/sec PT-OP-G Mobility & Gait Start: 11/15/21 15:38 Freq: Status: Active Protocol: Document 05/19/22 12:00 DCW (Rec: 05/19/22 12:46 DCW [id number]) OP Gait Assessment Gait Gait Assistance Required: Independent Distance (Feet) 342 Assistive Devices Assistive Device None Gait Deviations General Gait Pattern Antalgic,Decreased Stride Length,Decreased Feet Clearance,Lateral Trunk Lean, Wide Based Gait Factors Limiting Gait Function Factors Limiting Gait Function Decreased Activity Tolerance, Decreased Sensation,Decreased Strength,Limited Range of Motion,Pain,Poor Balance Comments Gait Comments Pt ambulating AD-free, inversion of right foot less prominant than at eval. Knee varus limiting factor in ability to bring knee in line over ankle. PT-OP-H Neuro Start: 11/15/21 15:38 Freq: Status: Active Protocol: Document 05/19/22 12:00 DCW (Rec: 05/19/22 12:46 DCW [id number]) Sensation Evaluation Gross Sensation Gross Sensation Left LE Impaired,Right LE Impaired Sensation Description Numbness Location Details Right Foot Light Touch Absent Sharp/Dull Absent Deep Pressure Absent Protective Sensation Absent Proprioception (Position) Absent Kinesthesia (Movement) Impaired Left Foot Light Touch Absent Sharp/Dull Absent Deep Pressure Absent Protective Sensation Absent Proprioception (Position) Absent Kinesthesia (Movement) Impaired PT-OP-K Range of Motion Start: 11/15/21 15:38 Freq: Status: Active Protocol: Document 05/19/22 12:00 DCW (Rec: 05/19/22 12:46 DCW [id number]) Ankle and Foot Goniometric Range of Motion Ankle and Foot Right Active Testing Position Sitting Plantarflexion 32 Inversion 21 Eversion 9 Comments Dorsiflexion both /c knee flexed and extended lacking 1? from neutral PT-OP-Q Treatments Start: 11/15/21 15:38 Freq: Status: Active Protocol: Document 05/30/22 11:18 DCW (Rec: 05/30/22 12:02 DCW [id number]) Manual Therapy Treatment Soft Tissue Mobilization 1 Body Location right medial foot plantarflexor and inv Mobilization Type Myofascial Release,Sustained Pressure,Trigger Point Release Intensity/Depth Moderate Body Position Sitting Joint Mobilizations 1 Joint Talocrual, fibular AP Direction A->P Grade III Body Position Hooklying Taping 1 Body Location J-strap Type of Tape Evita Comments Fore-foot to anterior rutherford and rear-foot to lateral calf, bow-stringed with underwrap to hold tight PT-OP-R Modalities Start: 11/15/21 15:38 Freq: Status: Active Protocol: Document 03/02/22 09:51 SP (Rec: 03/02/22 10:37 SP [id number]) Hot Pack/Cold Pack Treatment Cold Pack Location right foot/ankle Patient Position Hooklying Treatment Duration (minutes) 10 Patient Tolerance Good Comments cryocuff for pain and edema reduction PT-OP-T Assessment and Plan Start: 11/15/21 15:38 Freq: Status: Active Protocol: Document 05/30/22 11:18 DCW (Rec: 05/30/22 12:02 DCW [id number]) Physical Therapy Assessment Goals Three Impairment Pt ambulates 257' during 2 MWT using SPC with fatigue Customer Loyalty Representative Goal (LTG) Pt to tolerate full 6 MWT without rest break while walking at least 600' using LRAD to show improved activity tolerance and decreasing falls risk. LTG Duration 06/19/22 - Improving (342' 2MWT) Two Impairment Significantly limited right ankle ROM s/p surgical tendon transfer Longterm Goal (LTG) Pt to increase R ankle AROM to DF 0? and Eversion 10?in order to allow pt to help normalize gait pattern LTG Duration 06/19/22 - Improving One Impairment Pt does not have an appropriate home exercise program Short Term Goal (STG) Pt to be independent and compliant with an appropriate HEP STG Duration goal met Customer Loyalty Representative Goal (LTG) Patient will tolerate progression of therapeutic exercises to work on flexibility, strengthening, and edema reduction of right foot and ankle. LTG Duration 06/19/22 - Improving Assessment Summary Assessment Pt showing some decreased edema today, still fairly limited PROM. Worked more on decreasing tone in medial calf . Physical Therapy Plan Frequency and Duration Frequency of Treatment 2x/Week Plan of Care Start Date 05/19/22 Plan of Care End Date 07/18/22 Therapeutic Interventions Therapeutic Interventions Aquatic Therapy,Balance Training,Gait Training,Home Exercise Program,Joint Mobilizations,Lymphedema Management,Manual Therapy, Patient/Caregiver Education, Self-Care/Home Management,Soft Tissue Mobilization, Therapeutic Activities, Therapeutic Exercises Next Visit Focus/Plan Next Note Type Treatment Note Next Visit Plan Continue with ROM and strengthening, edema management per POC.
--- NOTE | 2022-06-02 12:49 | PT.OTN ---
Current Diagnoses Pain in right ankle and joints of right foot (06/02/22) Stiffness of unspecified ankle, not elsewhere classified (06/02/22) Pain in right foot (06/02/22) Other abnormalities of gait and mobility (06/02/22) History of falling (06/02/22) Physical Therapy Treatment Note PT-OP-A Visit Information Start: 11/15/21 15:38 Freq: Status: Active Protocol: Document 06/02/22 12:06 DCW (Rec: 06/02/22 12:49 DCW [id number]) Out-Patient Physical Therapy Visit Information Visit Information Visit Type Treatment Note Visit Start Time 12:06 Visit Stop Time 12:45 Total Visit Minutes 39 Visit Number 41 Number of PACU NURSE Visits 0 Evaluation Information Evaluation Date 11/15/21 PT-OP-B Current Condition Start: 11/15/21 15:38 Freq: Status: Active Protocol: Document 11/15/21 12:00 DCW (Rec: 11/15/21 17:59 DCW [id number]) Current Condition History of Current Condition Onset Date Long-standing history Current Complaints Gait difficulty, ankle pain, ankle stiffness, low back pain History of Current Condition Pt is a 56 year old male very well known to this clinic presenting with a wildly complicated history. Pt had a tendon transfer surgery on his right ankle late last year in an effort to decrease his tendency to walk on the outside surface of his feet. Shortly after this, pt began to get painful blisters all over his skin and eventually was admitted to the burn [facility] in [facility] for one month, eventually being diagnosed with the autoimmune disorder bullous pemphigus. While being treated for this, there was worry about a bone infection in his foot, possibly secondary to the tendon transfer. Multiple biopsies were taken, which unfortunately then led to a severe fracture in his foot. Pt eventuually needed to have this bone fragment surgically removed. Pt returns to therapy after all of this in hopes to improve the mobility and strength of his ankle, as well as improve hiis gait and stability. Pt currently using a SPC while walking for stability. Fears his ankle has started locking up because he was unable to do much after surgery. Treatment Goals Patient/Caregiver Goals Improve ROM and stretch out his ankle, improve gait stability PT-OP-C Subjective Start: 11/15/21 15:38 Freq: Status: Active Protocol: Document 06/02/22 12:06 DCW (Rec: 06/02/22 12:49 DCW [id number]) OP-PT Subjective Patient Comments Patient Comments Pt feeling like hi ankle mobility has plateaued. PT-OP-E Functional Tests Start: 11/15/21 15:38 Freq: Status: Active Protocol: Document 05/19/22 12:00 DCW (Rec: 05/19/22 12:46 DCW [id number]) Functional Tests 2 Minute Walk Test Distance 342' Device Used None Comments 2.85 ft/sec PT-OP-G Mobility & Gait Start: 11/15/21 15:38 Freq: Status: Active Protocol: Document 05/19/22 12:00 DCW (Rec: 05/19/22 12:46 DCW [id number]) OP Gait Assessment Gait Gait Assistance Required: Independent Distance (Feet) 342 Assistive Devices Assistive Device None Gait Deviations General Gait Pattern Antalgic,Decreased Stride Length,Decreased Feet Clearance,Lateral Trunk Lean, Wide Based Gait Factors Limiting Gait Function Factors Limiting Gait Function Decreased Activity Tolerance, Decreased Sensation,Decreased Strength,Limited Range of Motion,Pain,Poor Balance Comments Gait Comments Pt ambulating AD-free, inversion of right foot less prominant than at eval. Knee varus limiting factor in ability to bring knee in line over ankle. PT-OP-H Neuro Start: 11/15/21 15:38 Freq: Status: Active Protocol: Document 05/19/22 12:00 DCW (Rec: 05/19/22 12:46 DCW [id number]) Sensation Evaluation Gross Sensation Gross Sensation Left LE Impaired,Right LE Impaired Sensation Description Numbness Location Details Right Foot Light Touch Absent Sharp/Dull Absent Deep Pressure Absent Protective Sensation Absent Proprioception (Position) Absent Kinesthesia (Movement) Impaired Left Foot Light Touch Absent Sharp/Dull Absent Deep Pressure Absent Protective Sensation Absent Proprioception (Position) Absent Kinesthesia (Movement) Impaired PT-OP-K Range of Motion Start: 11/15/21 15:38 Freq: Status: Active Protocol: Document 05/19/22 12:00 DCW (Rec: 05/19/22 12:46 DCW [id number]) Ankle and Foot Goniometric Range of Motion Ankle and Foot Right Active Testing Position Sitting Plantarflexion 32 Inversion 21 Eversion 9 Comments Dorsiflexion both /c knee flexed and extended lacking 1? from neutral PT-OP-Q Treatments Start: 11/15/21 15:38 Freq: Status: Active Protocol: Document 06/02/22 12:06 DCW (Rec: 06/02/22 12:49 DCW [id number]) Manual Therapy Treatment Soft Tissue Mobilization 1 Body Location right medial foot plantarflexor and inv Mobilization Type Myofascial Release,Sustained Pressure,Trigger Point Release Intensity/Depth Moderate Body Position Sitting Joint Mobilizations 1 Joint Talocrual, fibular AP Direction A->P Grade III Body Position Hooklying Taping 1 Body Location J-strap Type of Tape Evita Comments Fore-foot to anterior rutherford and rear-foot to lateral calf, bow-stringed with underwrap to hold tight PT-OP-R Modalities Start: 11/15/21 15:38 Freq: Status: Active Protocol: Document 03/02/22 09:51 SP (Rec: 03/02/22 10:37 SP [id number]) Hot Pack/Cold Pack Treatment Cold Pack Location right foot/ankle Patient Position Hooklying Treatment Duration (minutes) 10 Patient Tolerance Good Comments cryocuff for pain and edema reduction PT-OP-T Assessment and Plan Start: 11/15/21 15:38 Freq: Status: Active Protocol: Document 06/02/22 12:06 DCW (Rec: 06/02/22 12:49 DCW [id number]) Physical Therapy Assessment Goals Three Impairment Pt ambulates 257' during 2 MWT using SPC with fatigue Sales Service Executive Goal (LTG) Pt to tolerate full 6 MWT without rest break while walking at least 600' using LRAD to show improved activity tolerance and decreasing falls risk. LTG Duration 06/19/22 - Improving (342' 2MWT) Two Impairment Significantly limited right ankle ROM s/p surgical tendon transfer Sales Service Executive Goal (LTG) Pt to increase R ankle AROM to DF 0? and Eversion 10?in order to allow pt to help normalize gait pattern LTG Duration 06/19/22 - Improving One Impairment Pt does not have an appropriate home exercise program Short Term Goal (STG) Pt to be independent and compliant with an appropriate HEP STG Duration goal met Halfway Goal (LTG) Patient will tolerate progression of therapeutic exercises to work on flexibility, strengthening, and edema reduction of right foot and ankle. LTG Duration 06/19/22 - Improving Assessment Summary Assessment Pt feeling much better following todays session, improved stability. Pt getting frustrated with condition of his back, starting to feel like he is having radicular symptoms down his right leg. Physical Therapy Plan Frequency and Duration Frequency of Treatment 2x/Week Plan of Care Start Date 05/19/22 Plan of Care End Date 07/18/22 Therapeutic Interventions Therapeutic Interventions Aquatic Therapy,Balance Training,Gait Training,Home Exercise Program,Joint Mobilizations,Lymphedema Management,Manual Therapy, Patient/Caregiver Education, Self-Care/Home Management,Soft Tissue Mobilization, Therapeutic Activities, Therapeutic Exercises Next Visit Focus/Plan Next Note Type Treatment Note Next Visit Plan Continue with ROM and strengthening, edema management per POC.
--- NOTE | 2022-06-08 12:38 | PT.OTN ---
Current Diagnoses Pain in right ankle and joints of right foot (06/08/22) Stiffness of unspecified ankle, not elsewhere classified (06/08/22) Pain in right foot (06/08/22) Other abnormalities of gait and mobility (06/08/22) History of falling (06/08/22) Physical Therapy Treatment Note PT-OP-A Visit Information Start: 11/15/21 15:38 Freq: Status: Active Protocol: Document 06/08/22 11:45 DCW (Rec: 06/08/22 12:38 DCW [id number]) Out-Patient Physical Therapy Visit Information Visit Information Visit Type Discharge Summary Visit Start Time 11:45 Visit Stop Time 12:30 Total Visit Minutes 45 Visit Number 42 Number of CORPORATE STRATEGIST Visits 0 Evaluation Information Evaluation Date 11/15/21 PT-OP-B Current Condition Start: 11/15/21 15:38 Freq: Status: Active Protocol: Document 11/15/21 12:00 DCW (Rec: 11/15/21 17:59 DCW [id number]) Current Condition History of Current Condition Onset Date Long-standing history Current Complaints Gait difficulty, ankle pain, ankle stiffness, low back pain History of Current Condition Pt is a 56 year old male very well known to this clinic presenting with a wildly complicated history. Pt had a tendon transfer surgery on his right ankle late last year in an effort to decrease his tendency to walk on the outside surface of his feet. Shortly after this, pt began to get painful blisters all over his skin and eventually was admitted to the burn [facility] in [facility] for one month, eventually being diagnosed with the autoimmune disorder bullous pemphigus. While being treated for this, there was worry about a bone infection in his foot, possibly secondary to the tendon transfer. Multiple biopsies were taken, which unfortunately then led to a severe fracture in his foot. Pt eventuually needed to have this bone fragment surgically removed. Pt returns to therapy after all of this in hopes to improve the mobility and strength of his ankle, as well as improve hiis gait and stability. Pt currently using a SPC while walking for stability. Fears his ankle has started locking up because he was unable to do much after surgery. Treatment Goals Patient/Caregiver Goals Improve ROM and stretch out his ankle, improve gait stability PT-OP-C Subjective Start: 11/15/21 15:38 Freq: Status: Active Protocol: Document 06/08/22 11:45 DCW (Rec: 06/08/22 12:38 DCW [id number]) OP-PT Subjective Patient Comments Patient Comments Pt suffered a fall Sunday, notes he fell flat on his face, he doesn't know how it happened. Struggles with his ankle as soon as he removes the tape, still waiting for his bracing. PT-OP-E Functional Tests Start: 11/15/21 15:38 Freq: Status: Active Protocol: Document 05/19/22 12:00 DCW (Rec: 05/19/22 12:46 DCW [id number]) Functional Tests 2 Minute Walk Test Distance 342' Device Used None Comments 2.85 ft/sec PT-OP-G Mobility & Gait Start: 11/15/21 15:38 Freq: Status: Active Protocol: Document 05/19/22 12:00 DCW (Rec: 05/19/22 12:46 DCW [id number]) OP Gait Assessment Gait Gait Assistance Required: Independent Distance (Feet) 342 Assistive Devices Assistive Device None Gait Deviations General Gait Pattern Antalgic,Decreased Stride Length,Decreased Feet Clearance,Lateral Trunk Lean, Wide Based Gait Factors Limiting Gait Function Factors Limiting Gait Function Decreased Activity Tolerance, Decreased Sensation,Decreased Strength,Limited Range of Motion,Pain,Poor Balance Comments Gait Comments Pt ambulating AD-free, inversion of right foot less prominant than at eval. Knee varus limiting factor in ability to bring knee in line over ankle. PT-OP-H Neuro Start: 11/15/21 15:38 Freq: Status: Active Protocol: Document 05/19/22 12:00 DCW (Rec: 05/19/22 12:46 DCW [id number]) Sensation Evaluation Gross Sensation Gross Sensation Left LE Impaired,Right LE Impaired Sensation Description Numbness Location Details Right Foot Light Touch Absent Sharp/Dull Absent Deep Pressure Absent Protective Sensation Absent Proprioception (Position) Absent Kinesthesia (Movement) Impaired Left Foot Light Touch Absent Sharp/Dull Absent Deep Pressure Absent Protective Sensation Absent Proprioception (Position) Absent Kinesthesia (Movement) Impaired PT-OP-K Range of Motion Start: 11/15/21 15:38 Freq: Status: Active Protocol: Document 05/19/22 12:00 DCW (Rec: 05/19/22 12:46 DCW [id number]) Ankle and Foot Goniometric Range of Motion Ankle and Foot Right Active Testing Position Sitting Plantarflexion 32 Inversion 21 Eversion 9 Comments Dorsiflexion both /c knee flexed and extended lacking 1? from neutral PT-OP-Q Treatments Start: 11/15/21 15:38 Freq: Status: Active Protocol: Document 06/08/22 11:45 DCW (Rec: 06/08/22 12:38 DCW [id number]) Manual Therapy Treatment Soft Tissue Mobilization 1 Body Location right medial foot plantarflexor and inv Mobilization Type Myofascial Release,Sustained Pressure,Trigger Point Release Intensity/Depth Moderate Body Position Sitting Joint Mobilizations 1 Joint Talocrual, fibular AP Direction A->P Grade III Body Position Hooklying Taping 1 Body Location J-strap Type of Tape Evita Comments Fore-foot to anterior rutherford and rear-foot to lateral calf, bow-stringed with underwrap to hold tight PT-OP-R Modalities Start: 11/15/21 15:38 Freq: Status: Active Protocol: Document 03/02/22 09:51 SP (Rec: 03/02/22 10:37 SP [id number]) Hot Pack/Cold Pack Treatment Cold Pack Location right foot/ankle Patient Position Hooklying Treatment Duration (minutes) 10 Patient Tolerance Good Comments cryocuff for pain and edema reduction PT-OP-T Assessment and Plan Start: 11/15/21 15:38 Freq: Status: Active Protocol: Document 06/08/22 11:45 DCW (Rec: 06/08/22 12:38 DCW [id number]) Physical Therapy Assessment Goals Three Impairment Pt ambulates 257' during 2 MWT using SPC with fatigue Care Home Goal (LTG) Pt to tolerate full 6 MWT without rest break while walking at least 600' using LRAD to show improved activity tolerance and decreasing falls risk. LTG Duration 06/19/22 - Improving (342' 2MWT) Two Impairment Significantly limited right ankle ROM s/p surgical tendon transfer Fresh Work Inspector Goal (LTG) Pt to increase R ankle AROM to DF 0? and Eversion 10?in order to allow pt to help normalize gait pattern LTG Duration 06/19/22 - Improving One Impairment Pt does not have an appropriate home exercise program Short Term Goal (STG) Pt to be independent and compliant with an appropriate HEP STG Duration goal met Fresh Work Inspector Goal (LTG) Patient will tolerate progression of therapeutic exercises to work on flexibility, strengthening, and edema reduction of right foot and ankle. LTG Duration 06/19/22 - Improving Assessment Summary Assessment Discharging pt from therapy following today's visit. Pt feels he has plateaued with his ankle, and really just needs a new brace. Would much prefer to switch focus for therapy onto other issues, including vestibular and low back. Already scheduled for a new evaluation with a new referral in ~1 month. Physical Therapy Plan Frequency and Duration Frequency of Treatment 2x/Week Plan of Care Start Date 05/19/22 Plan of Care End Date 07/18/22 Therapeutic Interventions Therapeutic Interventions Aquatic Therapy,Balance Training,Gait Training,Home Exercise Program,Joint Mobilizations,Lymphedema Management,Manual Therapy, Patient/Caregiver Education, Self-Care/Home Management,Soft Tissue Mobilization, Therapeutic Activities, Therapeutic Exercises Discharge Physical Therapy Discharge Reasons Plateau in Progress Next Visit Focus/Plan Next Note Type Discharge Summary
== END 2022-07-12 11:36 | disposition home or self-care (01) ==
LOC: PHYS 12:00
PROVIDERS: Family Provider Internal Medicine; PCP Internal Medicine; Referring Provider Podiatrist; Visit Provider Podiatrist
DX: M79.671 Pain in right foot (principal); R26.89 Other abnormalities of gait and mobility; M25.571 Pain in right ankle and joints of right foot; M25.673 Stiffness of unspecified ankle, not elsewhere classified; Z91.81 History of falling
CPT/HCPCS: 97010; 97110; 97112; 97140; 97163

== ENCOUNTER → 2022-06-16 13:57 | Outpatient (CLI) | payer OTHER, MEDICAID, SELFPAY ==
[2021-11-11 16:46] VITALS: BMI 53.1
[2022-06-16 15:34] LABS: Creatinine Urine Random 116.8 mg/dL
[2022-06-16 15:36] LABS: Microalbumi Creatinin Ratio Ur 51.3 ug/mg CR (<30)
[2022-06-16 15:40] LABS: Hematocrit 41.1 % (41-53); Hemoglobin 14.1 g/dL (13.5-17.5); Mean Corpuscular HGB Conc 34.3 % (30-36); Mean Corpuscular Hemoglobin 29.9 PG (26-34); Mean Corpuscular Volume 87.1 fL (80-100); Platelet Count 216 X10^3/uL (150-400); Red Blood Cell Count 4.72 X10^6/uL (4.5-5.9); Red Cell Distribution Width 14.7 % (11.6-14.8); White Blood Cell Count 8.5 X10^3/uL (4.5-11.0)
[2022-06-16 15:48] LABS: Hemoglobin A1C% w Est Avg Glu 5.9 % (4.0-6.0)
[2022-06-16 16:23] LABS: Alanine Aminotransferase 26 IU/L (<50); Albumin 4.2 g/dL (3.5-5.0); Albumin Globulin Ratio 1.3 (1.0-2.8); Alkaline Phosphatase 73 U/L (38-126); Aspartate Aminotransferase 26 IU/L (17-59); BUN Creatinine Ratio 18.9 (6-22); Bilirubin Total 0.3 mg/dL (0.2-1.3); Blood Urea Nitrogen 14 mg/dL (9-20); C-Reactive Protein Quant 2.3 mg/dL (<1.0); Calcium 8.9 mg/dL (8.4-10.2); Carbon Dioxide 29 mmol/L (22-32); Chloride 99 mmol/L (98-107); Cholesterol 103 mg/dL (140-199); Estimated Glomerular Filt Rate > 60 mL/min (>60); Globulin 3.3 g/dL (1.7-4.1); Glucose 147 mg/dL (70-100); HDL Cholesterol 32 mg/dL (40-60); HEMOLYSIS < 15 (0-50); LDL Cholesterol Calculated 48 mg/dL (<100); Sodium 140 mmol/L (137-145); Total Protein 7.5 g/dL (6.3-8.2); Triglycerides 114 mg/dL (35-150)
[2022-06-16 16:44] LABS: Erythrocyte Sedimentation Rate 7 MM/HR (0-15)
[2022-06-16 17:07] LABS: Vitamin B12 549 pg/mL (239-931)
[2022-06-16 17:29] LABS: TSH w/ Reflex to FT4 2.84 uIU/mL (0.47-4.68)
== END ==
PROVIDERS: Family Provider Internal Medicine; PCP Internal Medicine; Referring Provider Internal Medicine; Visit Provider Internal Medicine
DX: E66.01 Morbid (severe) obesity due to excess calories (principal); I10 Essential (primary) hypertension; E78.2 Mixed hyperlipidemia; G58.8 Other specified mononeuropathies; I50.32 Chronic diastolic (congestive) heart failure; I87.8 Other specified disorders of veins; M48.062 Spinal stenosis, lumbar region with neurogenic claudication; M51.36 Other intervertebral disc degeneration, lumbar region; Z68.42 Body mass index [BMI] 45.0-49.9, adult; E53.8 Deficiency of other specified B group vitamins; L12.0 Bullous pemphigoid
CPT/HCPCS: 36415; 80053; 80061; 82043; 82570; 82607; 83036; 84443; 85027; 85651; 86140

== ENCOUNTER → 2022-07-21 12:54 | Outpatient (CLI) | payer MEDICARE, OTHER, MEDICAID, SELFPAY ==
[2021-11-11 16:46] VITALS: BMI 53.1
--- NOTE | 2022-07-21 12:57 | DI.RAD.S_ITS ---
PROCEDURE: XR CERVICAL SPINE 2V OR 3V INDICATIONS: neck pain TECHNIQUE: 3 view(s) of the cervical spine were acquired. COMPARISON: [facility] [place], [place], SPINE CERVICAL MIN 4VW, 07/05/2016, 10:41. FINDINGS: Bones: There are postsurgical changes with anterior fusion at C5-C7. No fractures or dislocations to the C7 level. The lateral masses of C1 appear intact on the odontoid view. No suspicious bony lesions. Prominent degenerative spurring in anterior aspect of C2-C3, C3-C4 and C4-C5. Severe bilateral facet arthropathy, most pronounced at C3-C4, C4-C5 and C5-C6. Overall, there is no significant change from the last exam. Soft tissues: No prevertebral soft tissue swelling. IMPRESSION: 1. Stable degenerative and postsurgical changes. If clinical symptoms persist, please consider MRI for further evaluation. Dictated by: Toro Valle M.D. on 07/21/2022 at 16:45 Approved by: Toro Valle M.D. on 07/23/2022 at 10:24
== END ==
PROVIDERS: Family Provider Internal Medicine; PCP Internal Medicine; Referring Provider Internal Medicine; Visit Provider Internal Medicine
DX: M47.812 Spondylosis without myelopathy or radiculopathy, cervical region (principal); M54.2 Cervicalgia; Z98.1 Arthrodesis status
CPT/HCPCS: 72040

== ENCOUNTER → 2022-08-21 12:31 | Outpatient (CLI) | payer MEDICARE, MEDICAID, SELFPAY ==
[2022-08-16 15:05] VITALS: BMI 53.1
[2022-08-21 14:20] LABS: Testosterone 248 ng/dL (71.8-623)
== END ==
PROVIDERS: Family Provider Internal Medicine; PCP Internal Medicine; Referring Provider Internal Medicine; Visit Provider Internal Medicine
DX: E34.9 Endocrine disorder, unspecified (principal)
CPT/HCPCS: 36415; 84403

== ENCOUNTER → 2022-09-15 12:49 | Outpatient (CLI) | payer MEDICARE, MEDICAID, SELFPAY ==
[2022-08-16 15:05] VITALS: BMI 53.1
--- NOTE | 2022-09-15 | DI.MRI.S_ITS ---
PROCEDURE: MR LUMBAR SPINE WO CON INDICATIONS: LUMBAR FACET ARTHROPATHY/THORACIC SPINE PAIN TECHNIQUE: Noncontrast sagittal T1 spin echo and T2 fast echo, sagittal STIR, and T2 fast spin echo through the lumbar spine. In cases with scoliosis, additional coronal T2 fast spin echo may be performed. COMPARISON: [facility], CR, XR LUMBAR SPINE WITH FLEXION EXTENSION 5 VIEWS, 08/31/2022, 11:32. FINDINGS: Image quality: This examination is limited by involuntary motion artifact. Alignment and Curvature: There is normal bony alignment. Bone Marrow: Marrow is of normal overall signal. No acute vertebral body compression fractures. Spinal Cord: Conus medullaris terminates at the L1 level. Visualized cord demonstrates normal signal and size. Paraspinous Soft Tissues: No paravertebral masses. T12-L1: The disc height and disk signal are relatively well-preserved. Mild generalized disc bulge is seen. Mild to moderate facet hypertrophy is seen. There is moderate right-sided and mild left-sided neural foraminal narrowing. Mild central canal narrowing is seen. L1-L2: Moderate loss of disc height is seen. Loss of disc signal is seen. Moderate disc osteophyte complex is seen, with a central disc extrusion, with inferior migration of the disc material. At least moderate facet hypertrophy is seen. At least moderate bilateral neural foraminal narrowing can be seen. There is a degree of compression seen upon the exiting nerve roots. There is severe central canal narrowing seen, as on series 6, image 11. L2-L3: Moderate loss of disc height is seen. Loss of disc signal is seen. Moderate disc bulge is seen, with a mild central disc protrusion. Mild to moderate facet hypertrophy is seen. Moderate bilateral neural foraminal narrowing can be seen, left worse than right. Moderate central canal narrowing is seen. L3-L4: At least moderate loss of disc height and disc signal can be seen. Moderate disc bulge is seen. There is a superimposed central disc extrusion, with inferior migration of the disc material. At least moderate facet hypertrophy can be seen at this level. There is at least moderate bilateral neural foraminal narrowing seen, with a mild degree of compression upon the exiting L3 nerve roots, right worse than left. Moderate to severe central canal narrowing is seen, as on series 6, image 22. L4-L5: Moderate loss of disc height is seen. Loss of disc signal is seen. Moderate disc bulge is seen, with a central/right disc protrusion. At least moderate facet hypertrophy can be seen at this level. There is moderate to severe left-sided and at least moderate right-sided neural foraminal narrowing. There is a degree of compression seen upon the exiting nerve roots. At least moderate central canal narrowing is seen. L5-S1: Moderate loss of disc height is seen. Loss of disc signal is seen. At least moderate disc bulge is seen, which is eccentric to the right. There is moderate right-sided and moderate to severe left-sided facet hypertrophy. There is moderate to severe bilateral neural foraminal narrowing seen, with an associated a degree of compression seen upon the exiting nerve roots. Moderate central canal narrowing is seen. IMPRESSION: Multiple levels of lumbar spine degenerative change can be seen, which are overall worst at L1-L2 and L3-L4. There is severe central canal narrowing seen at L1-L2. Several sites of significant neural foraminal narrowing can be seen, with associated exiting nerve root compression. Dictated by: Osbaldo Perez M.D. on 09/15/2022 at 14:00 Approved by: Osbaldo Perez M.D. on 09/15/2022 at 14:05
== END ==
PROVIDERS: Family Provider Internal Medicine; PCP Internal Medicine; Referring Provider Physician Assistant Surgical; Visit Provider Physician Assistant Surgical
DX: M47.816 Spondylosis without myelopathy or radiculopathy, lumbar region (principal); M48.061 Spinal stenosis, lumbar region without neurogenic claudication; M54.6 Pain in thoracic spine
CPT/HCPCS: 72148

== ENCOUNTER → 2022-09-25 14:30 | Outpatient (CLI) | payer MEDICARE, MEDICAID, SELFPAY ==
[2022-08-16 15:05] VITALS: BMI 53.1
[2022-09-25 15:33] LABS: Hemoglobin A1C% w Est Avg Glu 6.3 % (4.0-6.0)
[2022-09-25 16:18] LABS: Testosterone 250 ng/dL (71.8-623)
[2022-09-25 16:41] LABS: TSH w/ Reflex to FT4 0.53 uIU/mL (0.47-4.68)
== END ==
PROVIDERS: Family Provider Internal Medicine; PCP Internal Medicine; Referring Provider Internal Medicine; Visit Provider Internal Medicine
DX: E11.42 Type 2 diabetes mellitus with diabetic polyneuropathy (principal); E03.9 Hypothyroidism, unspecified; R79.89 Other specified abnormal findings of blood chemistry
CPT/HCPCS: 36415; 83036; 84403; 84443

== ENCOUNTER → 2022-11-20 14:20 | Outpatient (CLI) | payer MEDICARE, MEDICAID, SELFPAY ==
[2022-08-16 15:05] VITALS: BMI 53.1
== END ==
PROVIDERS: Family Provider Internal Medicine; PCP Internal Medicine; Referring Provider Internal Medicine; Visit Provider Internal Medicine
DX: L13.9 Bullous disorder, unspecified (principal)
CPT/HCPCS: 36415

== ENCOUNTER → 2022-12-12 11:16 | Outpatient (CLI) | payer MEDICARE, MEDICAID, SELFPAY ==
[2022-08-16 15:05] VITALS: BMI 53.1
--- NOTE | 2022-12-13 10:52 | PM.PFT.1 ---
Pulmonary Function Test Referral & Results Date Patient Seen: 12/12/22 Results: The spirometry demonstrates an FVC of 2.84 L which is 49% of predicted. The FEV1 was measured at 2.26 L which is 51% of predicted. The FEV1/FVC ratio was 79 which is 103% of predicted. Following the administration of bronchodilator there was a 45% improvement in FEF 25-75%. Lung volumes show an SVC of 3.56 L which is 63% of predicted. The diffusing capacity was measured at 28.81 which is 73% of predicted. No hemoglobin value was provided, so no correction for potential anemia could be made, if appropriate. The maximum voluntary ventilation was reduced Interpretation: This study demonstrates xgeu-ta-irzcnxhy obstructive lung disease based on reduction FEV1 although FEV1/FVC ratio is preserved there is also evidence of benefit following bronchodilator particularly small airway flow based on improvement in FEF 25-75% as above There is a [id number] reduction in lung volumes suggesting the presence of hnxz-hu-lorbpxdo restrictive lung disease which may explain some of the abnormality in the FEV1 above There is a mild reduction in diffusing capacity suggesting the presence of disease at the capillary alveolar level as well Clinical correlation suggested
== END ==
PROVIDERS: Family Provider Internal Medicine; PCP Internal Medicine; Referring Provider Internal Medicine; Visit Provider Internal Medicine
DX: R06.02 Shortness of breath (principal); J98.8 Other specified respiratory disorders
CPT/HCPCS: 94060; 94726; 94729

== ENCOUNTER → 2023-01-26 14:10 | Outpatient (CLI) | payer MEDICARE, MEDICAID, SELFPAY ==
[2022-08-16 15:05] VITALS: BMI 53.1
[2023-01-26 14:58] LABS: Add Manual Diff / Slide Review NO; Basophils Absolute Auto 0 /uL (0-100); Basophils Percent Auto 0.5 % (0-2); Eosinophils Absolute Auto 100 /uL (0-450); Eosinophils Percent Auto 1.3 % (2-4); Hematocrit 42.4 % (41-53); Hemoglobin 14.7 g/dL (13.5-17.5); Lymphocytes Absolute Auto 1700 /uL (1100-4500); Lymphocytes Percent Auto 21.8 % (25-40); Mean Corpuscular HGB Conc 34.7 % (30-36); Mean Corpuscular Hemoglobin 29.7 PG (26-34); Mean Corpuscular Volume 85.6 fL (80-100); Monocytes Absolute Auto 900 /uL (0-900); Monocytes Percent Auto 11.5 % (3-14); Neutrophils Absolute Auto 5000 /uL (1500-7000); Neutrophils Percent Auto 64.9 % (50-75); Platelet Count 248 X10^3/uL (150-400); Red Blood Cell Count 4.96 X10^6/uL (4.5-5.9); White Blood Cell Count 7.7 X10^3/uL (4.5-11.0)
[2023-01-26 15:17] LABS: Alanine Aminotransferase 35 IU/L (<50); Albumin 4.4 g/dL (3.5-5.0); Albumin Globulin Ratio 1.5 (1.0-2.8); Alkaline Phosphatase 72 U/L (38-126); Aspartate Aminotransferase 30 IU/L (17-59); BUN Creatinine Ratio 17.9 (6-22); Bilirubin Total 0.5 mg/dL (0.2-1.3); Blood Urea Nitrogen 12 mg/dL (9-20); Calcium 9.4 mg/dL (8.4-10.2); Carbon Dioxide 30 mmol/L (22-32); Chloride 100 mmol/L (98-107); Cholesterol 108 mg/dL (140-199); Estimated Glomerular Filt Rate > 60 mL/min (>60); Globulin 2.9 g/dL (1.7-4.1); Glucose 109 mg/dL (70-100); HDL Cholesterol 35 mg/dL (40-60); HEMOLYSIS < 15 (0-50); LDL Cholesterol Calculated 51 mg/dL (<100); Potassium 4.6 mmol/L (3.4-5.1); Sodium 140 mmol/L (137-145); Total Protein 7.3 g/dL (6.3-8.2); Triglycerides 112 mg/dL (35-150)
[2023-01-27 03:05] LABS: Hepatitis B Surf AB Quant 179.4 mIU/mL (Immunity>9.9)
[2023-01-27 06:41] LABS: Hepatitis B Core AB w/Reflex Negative (Negative)
[2023-01-29 14:47] LABS: QuantiFERON Mitogen Value >10.00 IU/mL (.); QuantiFERON TB Gold Plus Negative (Negative); QuantiFERON TB1 Ag Value 0.01 IU/mL (.); QuantiFERON TB2 Ag Value 0.02 IU/mL (.)
[2023-01-29 16:20] LABS: Hepatitis B Surface Antigen NEGATIVE s/c (NEGATIVE)
[2023-01-29 16:34] LABS: Hep C Virus Ab w/Reflex Quant NEGATIVE s/c (NEGATIVE)
== END ==
PROVIDERS: Family Provider Internal Medicine; PCP Internal Medicine; Referring Provider Internal Medicine; Visit Provider Internal Medicine
DX: J45.909 Unspecified asthma, uncomplicated (principal); L20.89 Other atopic dermatitis; L13.9 Bullous disorder, unspecified
CPT/HCPCS: 36415; 80053; 80061; 85025; 86480; 86704; 86706; 86803; 87340

== ENCOUNTER 2023-01-30 11:51 | Outpatient (CLI) | payer MEDICARE, MEDICAID, SELFPAY ==
[2022-08-16 15:05] VITALS: BMI 53.1
[2023-01-30] VITALS (9 sets, daily range): BP systolic 123–206; BP diastolic 55–94; PULSE 69–90; RESP 9–19; TEMP 36.7; O2SAT 90–97
--- NOTE | 2023-01-30 11:54 | DI.RAD.S_ITS ---
PROCEDURE: PAIN L INTERLAMINAR/CAUDAL INJ INDICATIONS: SPONDYLOSIS COMPARISON: [facility], XA, PAIN L INTERLAMINAR/CAUDAL INJ, 03/28/2022, 11:32. FINDINGS: Fluoroscopic spot filming was performed to verify placement of spinal needles at the left L4-L5 interlaminar space level(s), as labeled on the films. Appropriate location(s) of the needle tip(s) was confirmed by injection of iodinated contrast. IMPRESSION: Access needle tip in the left L4-L5 interlaminar space for translaminar epidural steroid injection. Dictated by: Karuna Lane MD, PhD on 01/30/2023 at 15:06 Approved by: Karuna Lane MD, PhD on 01/30/2023 at 15:07
[2023-01-30] MEDS: BUPIVACAINE 0.25% (PF) VIAL 2 ML INJ (13:39)
[2023-01-30] MEDS: DEXAMETHASONE 10 MG/ML VIAL 20 MG INJ (13:40)
[2023-01-30] MEDS: BETAMETHASONE 30 MG/5 ML MDV 6 MG INJ (13:40)
[2023-01-30] MEDS: IOPAMIDOL 15 ML VIAL 3 ML INJ (13:41)
--- NOTE | 2023-01-30 14:17 | P.PCN_ITS ---
Date/Time/Diagnoses Date of procedure: 01/30/23 Time of procedure: 14:17 Pre-procedure diagnosis: 1. HNP WITH RADICULAR FEATURES, 2. MULTILEVEL CENTRAL STENOSIS, Post-procedure diagnosis: same Procedure Notes Procedure: 1. FLUOROSCOPICALLY GUIDED CONTRAST CONTROLLED INTERLAMINAR EPIDURAL STEROID INJECTION -L4/5 Indications: Bubba is referred by Dr. Taylor for treatment of Bilateral Foraminal Stenosis R>L LE symptoms. Physician: Hay Wagner Total Fluoroscopy time (seconds): 50 Total sedation minutes: 0 Complications: none Procedure in detail & Post-procedure care: FINDINGS Multilevel Central Spinal Stenosis with Nerve Root Compression DESCRIPTION OF PROCEDURE Fluoroscopically guided, contrast-controlled L4/5 translaminar epidural steroid injection. Following review of allergy and review of potential side effects and complications, including, but not necessarily limited to, infection, allergic reaction, local tissue breakdown, temporary as well as permanent nerve injury, paralysis, stroke and possible , the patient indicated that the patient understood and agreed to proceed. An informed consent document was signed by the patient, witnessed by a nurse, and placed in the patient's chart. Additionally, other treatment options including modalities, medications, and physical therapy were reviewed with the patient. After review of previous anaesthesic history and IV conscious sedation the patient was deemed safe to proceed with today?s procedure with IV conscious sedation as ASA class II designation. Safety time-out was performed to confirm patient ID, procedure to be performed and site of procedure. IV sedation was deemed unnecessary administered by the RN after DO order, titrated to patient comfort during the course of the procedure while the patient remained responsive to all verbal commands In the prone position, following sterile prep and drape of the lumbar region, the L4/5 translaminar space was identified fluoroscopically. The skin was anesthetized via a 25-gauge, 1.5inch needle with 1% lidocaine solution. At this point, a 22-gauge short bevel spinal needle was atraumatically introduced and advanced under fluoroscopic guidance into the region of the L4/5 translaminar space. Depth was confirmed on lateral view. Radiological data, including multiple fluoroscopic views of the lumbar spine, reveal a spinal needle at the L4/5 translaminar space. Lateral views then show placement of the needle in the epidural space. Subsequent views show contrast material flowing superiorly and inferiorly in the epidural space. No vascular or intrathecal uptake is observed. At this point, using loss of resistance technique with saline and air, the epidural space was entered. This was confirmed following negative aspiration wi th injection of approximately 1.5cc of Isovue 200, showing excellent epidural flow without vascular or intrathecal uptake. At this point, 1cc of 1% lidocaine solution combined with 3cc or 20mg of dexamethasone and 6mg betamethasone was injected without incident. The patient tolerated the procedure well without signs or symptoms of complications prior to transfer to the recovery area continued monitoring without incident. The patient was then transferred to the recovery area where they were observed for an appropriate period of time after the injection. The patient reported a VAS score of 6 prior to the procedure and a post- procedure VAS of 0. POST OP INSTRUCTIONS The patient was provided a Pain Log to continue to record their response to the target-specific procedure prior to follow-up visit with their referring physician. Additionally, specific post-injection care instructions and a contact number to our office were provided if concerns arise regarding possible complications associated with the procedure are suspected.
== END 2023-01-30 14:19 | disposition home or self-care (01) ==
PROVIDERS: Family Provider Internal Medicine; PCP Internal Medicine; Referring Provider Physical Medicine & Rehabilitation; Visit Provider Physical Medicine & Rehabilitation
DX: M48.061 Spinal stenosis, lumbar region without neurogenic claudication (principal); M51.16 Intervertebral disc disorders with radiculopathy, lumbar region
CPT/HCPCS: 62323; J0702; J1100; J3490

== ENCOUNTER → 2023-04-30 09:00 | Outpatient (CLI) | payer MEDICARE, MEDICAID, SELFPAY ==
[2022-08-16 15:05] VITALS: BMI 53.1
--- NOTE | 2023-04-30 09:03 | DI.CT.S_ITS ---
PROCEDURE: CT SINUS SCREEN WO CON INDICATIONS: Chronic maxillary sinusitis TECHNIQUE: Noncontrast 3.0 mm axial images acquired from the frontal sinuses to the mid-sella, with coronal and sagittal reformats. For radiation dose reduction, the following was used: automated exposure control, adjustment of mA and/or kV according to patient size. COMPARISON: [facility], CT, CT SINUS SCREEN WO CON, 10/06/2019, 12:59. [facility], CT, CT SINUS SCREEN WO CON, 03/25/2021, 16:04. FINDINGS: Image quality: Excellent. Maxillary Sinuses: Minimal mucosal thickening is seen within the inferior right maxillary sinus. Portions of the medial wall of the right maxillary sinus have been removed. Ethmoid Air Cells: Portions of the right-sided ethmoid air cells have been removed. There is moderate mucosal thickening within the posterior right ethmoid air cells. There is demineralization of several of the ethmoid air cell septations. Sphenoid Sinuses: No bony remodeling or destruction. Sinuses are clear. Frontal Sinuses: No bony remodeling or destruction. Sinuses are clear. Ostiomeatal Complexes: Prior right-sided antrectomy. 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 The left ostiomeatal complex is demineralized. Miscellaneous: Visualized intra-orbital contents are normal. No mark bullosa or paradoxical turbinate curvature. No nasal septal deviation. IMPRESSION: Scattered areas of paranasal sinus disease can be seen. The right maxillary sinus is clearly improved compared to 2020. Prior right antrectomy. Areas of bony demineralization are seen, which are consistent with chronic sinusitis. Dictated by: Osbaldo Perez M.D. on 04/30/2023 at 10:47 Approved by: Osbaldo Perez M.D. on 04/30/2023 at 10:49
== END ==
PROVIDERS: Family Provider Internal Medicine; PCP Internal Medicine; Referring Provider Otolaryngology; Visit Provider Otolaryngology
DX: J01.00 Acute maxillary sinusitis, unspecified (principal); R51.9 Headache, unspecified; J32.0 Chronic maxillary sinusitis
CPT/HCPCS: 70486

== ENCOUNTER 2023-07-12 10:00 | Outpatient (RCR) | payer MEDICARE, MEDICAID, SELFPAY ==
[2022-08-16 15:05] VITALS: BMI 53.1
== END 2023-07-12 12:00 ==
LOC: PUL 10:00
PROVIDERS: Family Provider Internal Medicine; PCP Internal Medicine; Referring Provider Internal Medicine; Visit Provider Internal Medicine
DX: J44.9 Chronic obstructive pulmonary disease, unspecified (principal)
CPT/HCPCS: 94625; 94626

== ENCOUNTER → 2023-08-08 16:15 | Outpatient (CLI) | payer MEDICARE, MEDICAID, SELFPAY ==
[2022-08-16 15:05] VITALS: BMI 53.1
[2023-08-08 17:24] LABS: BUN Creatinine Ratio 25.4 (6-22); Blood Urea Nitrogen 18 mg/dL (9-20); Calcium 9.8 mg/dL (8.4-10.2); Carbon Dioxide 28 mmol/L (22-32); Chloride 100 mmol/L (98-107); Estimated Glomerular Filt Rate > 60 mL/min (>60); Glucose 99 mg/dL (70-100); HEMOLYSIS < 15 (0-50); Potassium 4.4 mmol/L (3.4-5.1); Sodium 137 mmol/L (137-145)
== END ==
PROVIDERS: Family Provider Internal Medicine; PCP Internal Medicine; Referring Provider Plastic Surgery; Visit Provider Plastic Surgery
DX: Z01.818 Encounter for other preprocedural examination (principal)
CPT/HCPCS: 36415; 80048; 83655; 93005

== ENCOUNTER 2023-08-10 12:00 | Outpatient (RCR) | payer MEDICARE, OTHER, MEDICAID, SELFPAY ==
[2021-11-11 16:46] VITALS: BMI 53.1
--- NOTE | 2022-07-11 17:55 | PT.OIE ---
Current Diagnoses Benign paroxysmal vertigo, unspecified ear (07/11/22) Stiffness of other specified joint, not elsewhere classified (07/11/22) Spinal stenosis, lumbar region with neurogenic claudication (07/11/22) Intervertebral disc disorders with myelopathy, thoracic region (07/11/22) Other intervertebral disc displacement, lumbar region (07/11/22) Other intervertebral disc degeneration, lumbar region (07/11/22) Cervicalgia (07/11/22) Past Medical History (Last Reviewed 07/05/22 @ 14:33 by Jhon Taylor MD) Acquired hypothyroidism Allergic rhinitis Anemia Arthritis Asthma BPH (benign prostatic hyperplasia) BPPV (benign paroxysmal positional vertigo) Bullous pemphigoid Chronic diastolic CHF (congestive heart failure) Chronic pain syndrome Chronic, continuous use of opioids Cobalamin deficiency Degenerative joint disease of knee Diabetic neuropathy Eczematous dermatitis Essential hypertension Grief reaction Herniated nucleus pulposus with myelopathy, thoracic Herniated nucleus pulposus, L1-2 History of migraine headaches HTN (hypertension) Major depression, recurrent Mixed hyperlipidemia Nephrolithiasis Obesity Recurrent sinusitis Right foot drop Right rotator cuff tendonitis Sinusitis Spinal stenosis of lumbar region at multiple levels Type 2 diabetes mellitus with polyneuropathy Past Surgical History (Last Reviewed 07/05/22 @ 14:33 by Jhon Taylor MD) History of incision and drainage (04/15/21) History of nasal surgery History of spinal fusion Hx of foot surgery Hx of fusion of cervical spine Hx of hand surgery Hx of knee surgery Hx of thyroidectomy Visit Care Team Role Provider Type Jhon Taylor MD Attending Provider Physician Family Provider Primary Care Provider Referring Provider Specialty: Internal Medicine Address: [address] [place] [address], [facility] Email: [email or web address] Physical Therapy Initial Evaluation PT-OP-A Visit Information Start: 07/11/22 14:19 Freq: Status: Active Protocol: Document 07/11/22 11:15 DCW (Rec: 07/11/22 14:21 DCW [id number]) Out-Patient Physical Therapy Visit Information Visit Information Visit Type Initial Evaluation Visit Start Time 11:15 Visit Stop Time 12:00 Total Visit Minutes 45 Visit Number 1 Number of CALLISTHENICS INSTRUCTOR Visits 0 Evaluation Information Evaluation Date 07/11/22 PT-OP-B Current Condition Start: 07/11/22 14:19 Freq: Status: Active Protocol: Document 07/11/22 11:15 DCW (Rec: 07/11/22 17:44 [facility] [id number]) Current Condition History of Current Condition Onset Date Long-standing history Current Complaints Dizziness, cervical pain, thoracic pain, lumbar pain History of Current Condition Pt is a 57 year old male very well known to this clinic presenting with a multitude of complaints and ailments. Pt was recently seen at this facility following ankle surgery ~1 year ago, after which he had a sudden onset of new autoimmune disease, which left him hospitalized for one month, greatly setting back his recovery for his ankle. Due to poor gait, repeatedly twisting his ankle, and multiple falls, pt began to have significant pain in his mid- and low-back, as well as his right hip. Additionally, pt has been complaining of ongoing dizziness for the past six months, typically with various head turns, lasting multiple minutes to half an hour. Pt has had multiple surgeries in the past, including, but not limited to, ankle surgery, cervical fusion (s/p ~10 years), and thoracic outlet syndrome surgery. Treatment Goals Patient/Caregiver Goals Improve mobility by decreasing back pain PT-OP-C Subjective Start: 07/11/22 14:19 Freq: Status: Active Protocol: Document 07/11/22 11:15 DCW (Rec: 07/11/22 17:44 [facility] [id number]) OP-PT Subjective Patient Comments Patient Comments I'm just completely falling apart. Patient Reported Progress Worse Patient Questionnaires Dizziness Handicap Inventory DHI Score 52% DHI Functional Impairment 40 to 59% Impaired (Score 40- 59) Oswestry Low Back Index Oswestry Score 30/50 = 60% Oswestry Impairment 40 to 59% Impaired (Score 40- 59) PT-OP-F Manual Assessment Start: 07/11/22 14:19 Freq: Status: Active Protocol: Document 07/11/22 11:15 DCW (Rec: 07/11/22 17:44 DC [id number]) Manual Assessments Soft Tissue Assessment Soft Tissue Mobility Assessment Severe tone with tenderness to palpation 3/4: Wincing and withdraw along bilateral cervical, thoracic, and lumbar paraspinals, upper trap, levator scap, SCM, and QL, L>R . Joint Mobility Assessment Joint Mobility Assessment Hypomobility along entire spine, limited cervical mobility limits vestibular testing, specifically positional testing (Hallpike/ Roll) PT-OP-K Range of Motion Start: 07/11/22 14:19 Freq: Status: Active Protocol: Document 07/11/22 11:15 DCW (Rec: 07/11/22 17:44 DCW [id number]) Cervical Spine Range of Motion Cervical Spine Active Degrees Testing Position Sitting Flexion 40 Extension 25 Rotation Left 26 Rotation Right 51 Lateral Flexion Left 18 Lateral Flexion Right 15 ROM Limitations Soft Tissue Tightness, Contracture,Bony Restriction, Muscle Tone,Pain Lumbar Spine Range of Motion Lumbar Spine Active Degrees Testing Position Standing Flexion 30 Extension 5 ROM Limitations Soft Tissue Tightness, Contracture,Bony Restriction, Muscle Tone,Pain PT-OP-L Special Tests Start: 07/11/22 14:19 Freq: Status: Active Protocol: Document 07/11/22 11:15 DCW (Rec: 07/11/22 17:44 DCW [id number]) Special Tests Cervical Spine Special Tests Slump Test Results Positive L Traction Test Results Mild pain relief Spurling's Test Test Results Positive L Comments Pain and dizziness Passive Neck Flexion Test Results Negative Foraminal Compression Test Results Positive L Alar Ligament Test Results Negative PT-OP-O Vestibular Start: 07/11/22 14:19 Freq: Status: Active Protocol: Document 07/11/22 11:15 DCW (Rec: 07/11/22 14:23 DCW [id number]) Vestibular Assessment Screening Tests Vestibular Artery Screen Negative Sharp-Selena Test Negative Visual Testing Smooth Pursuits Horizontal WNL Smooth Pursuits Vertical WNL Saccades Horizontal WNL Saccades Vertical WNL Heave Test Positive Right Thrust Head Positive Right Positional Testing Samantha-Hallpike Negative Left,Negative Right Rolling Test Negative Left,Negative Right Comments Vestibular Comments Pt reports vertigo/dizziness in all positions, worse with left-side dependent, but zero signs of nystagmus. Pt also has poor cervical extension and rotation, limiting proper positioning PT-OP-T Assessment and Plan Start: 07/11/22 14:19 Freq: Status: Active Protocol: Document 07/11/22 11:15 DCW (Rec: 07/11/22 17:55 DCW [id number]) Physical Therapy Assessment Rehab Potential Rehabilitation Potential Fair Evaluation Complexity Number of Personal Factors/Comorbidities 3 or More Number of Body Systems Impaired 4 or More Clinical Presentation at Evaluation Unstable Impairments Impairments Balance,Functional Activities, Functional Mobility,Gait, Integument,Pain,Posture,ROM, Soft Tissue Mobility,Strength, Tone,Vestibular Goals Three Impairment Pt experiences dizziness with positional changes Care Home Goal (LTG) Pt to report no episodes of dizziness while lying in bed for one full week to improve sleep pattern LTG Duration 10/09/22 Two Impairment Left cervical rotation limited to 26? Finishing Area Operator Goal (LTG) Pt to increase left cervical rotation by at least 19? to 45 ? in order to improve ability to turn head to look for traffic while driving. LTG Duration 10/09/22 One Impairment Pt does not have an appropriate home exercise program Short Term Goal (STG) Pt to be independent and compliant with an appropriate HEP STG Duration 08/22/22 Assessment Summary Assessment Pt presents with a very complicated health history and a wide-ranging variety of complaints. Main focus at this time will be addressing complaints of dizziness and pain in cervical and lumbar spine. Pt has received benefit from lumbar therapy in the past, and is hoping to replicate his experience again . Vestibular testing did indicate a decrease in right vestibular function, however positional testing was not indicative of BPPV, and with complaints of dizziness during cervical testing, may indicate cervicogenic dizziness. Pt should benefit from STM, flexibility, and strengthening focused on cervical and lumbar musculature, core strengthening, and pain- management training. Physical Therapy Plan Frequency and Duration Frequency of Treatment 2x/Week Plan of Care Start Date 07/11/22 Plan of Care End Date 10/09/22 Therapeutic Interventions Therapeutic Interventions Aquatic Therapy,Balance Training,Gait Training,Home Exercise Program,Joint Mobilizations,Manual Therapy, Neuromuscular Re-education, Patient/Caregiver Education, Self-Care/Home Management,Soft Tissue Mobilization, Therapeutic Activities, Therapeutic Exercises, Vestibular Rehabilitation Modalities Cold Pack/Ice Massage,Electric Stimulation,Hot Packs, Ultrasound Next Visit Focus/Plan Next Note Type Treatment Note Next Visit Plan Cervical and lumbar STM/ stretching, core strengthening
--- NOTE | 2022-07-11 17:56 | PT.OPPOC ---
Physical, Occupational & Speech Therapy At [facility] Current Diagnoses Benign paroxysmal vertigo, unspecified ear (07/11/22) Stiffness of other specified joint, not elsewhere classified (07/11/22) Spinal stenosis, lumbar region with neurogenic claudication (07/11/22) Intervertebral disc disorders with myelopathy, thoracic region (07/11/22) Other intervertebral disc displacement, lumbar region (07/11/22) Other intervertebral disc degeneration, lumbar region (07/11/22) Cervicalgia (07/11/22) Visit Care Team Role Provider Type Jhon Taylor MD Attending Provider Physician Family Provider Primary Care Provider Referring Provider Specialty: Internal Medicine Address: [address] [place] [address], [facility] Email: [email or web address] Plan Of Care PT-OP-T Assessment and Plan Start: 07/11/22 14:19 Freq: Status: Active Protocol: Document 07/11/22 11:15 DCW (Rec: 07/11/22 17:55 DCW [id number]) Physical Therapy Assessment Rehab Potential Rehabilitation Potential Fair Evaluation Complexity Number of Personal Factors/Comorbidities 3 or More Number of Body Systems Impaired 4 or More Clinical Presentation at Evaluation Unstable Impairments Impairments Balance,Functional Activities, Functional Mobility,Gait, Integument,Pain,Posture,ROM, Soft Tissue Mobility,Strength, Tone,Vestibular Goals Three Impairment Pt experiences dizziness with positional changes Prison Goal (LTG) Pt to report no episodes of dizziness while lying in bed for one full week to improve sleep pattern LTG Duration 10/09/22 Two Impairment Left cervical rotation limited to 26? Prison Goal (LTG) Pt to increase left cervical rotation by at least 19? to 45 ? in order to improve ability to turn head to look for traffic while driving. LTG Duration 10/09/22 One Impairment Pt does not have an appropriate home exercise program Short Term Goal (STG) Pt to be independent and compliant with an appropriate HEP STG Duration 08/22/22 Assessment Summary Assessment Pt presents with a very complicated health history and a wide-ranging variety of complaints. Main focus at this time will be addressing complaints of dizziness and pain in cervical and lumbar spine. Pt has received benefit from lumbar therapy in the past, and is hoping to replicate his experience again . Vestibular testing did indicate a decrease in right vestibular function, however positional testing was not indicative of BPPV, and with complaints of dizziness during cervical testing, may indicate cervicogenic dizziness. Pt should benefit from STM, flexibility, and strengthening focused on cervical and lumbar musculature, core strengthening, and pain- management training. Physical Therapy Plan Frequency and Duration Frequency of Treatment 2x/Week Plan of Care Start Date 07/11/22 Plan of Care End Date 10/09/22 Therapeutic Interventions Therapeutic Interventions Aquatic Therapy,Balance Training,Gait Training,Home Exercise Program,Joint Mobilizations,Manual Therapy, Neuromuscular Re-education, Patient/Caregiver Education, Self-Care/Home Management,Soft Tissue Mobilization, Therapeutic Activities, Therapeutic Exercises, Vestibular Rehabilitation Modalities Cold Pack/Ice Massage,Electric Stimulation,Hot Packs, Ultrasound Next Visit Focus/Plan Next Note Type Treatment Note Next Visit Plan Cervical and lumbar STM/ stretching, core strengthening Plan of Care Dates Plan of Care Start Date 07/11/22 Plan of Care End Date 10/09/22 Electronically Signed by: Tong Card, PT 07/11/22 2992 If you are in agreement with this Plan of Care, please return a signed and dated copy. I have reviewed this Plan of Care and certify that the skilled therapy services above are required to meet the patient?s needs. Physician Signature Date Printed Name and Credentials Clinical Instructor Signature Printed Name and Credentials
--- NOTE | 2022-07-14 12:47 | PT.OTN ---
Current Diagnoses Benign paroxysmal vertigo, unspecified ear (07/14/22) Stiffness of other specified joint, not elsewhere classified (07/14/22) Spinal stenosis, lumbar region with neurogenic claudication (07/14/22) Intervertebral disc disorders with myelopathy, thoracic region (07/14/22) Other intervertebral disc displacement, lumbar region (07/14/22) Other intervertebral disc degeneration, lumbar region (07/14/22) Cervicalgia (07/14/22) Physical Therapy Treatment Note PT-OP-A Visit Information Start: 07/11/22 14:19 Freq: Status: Active Protocol: Document 07/14/22 12:00 DCW (Rec: 07/14/22 12:47 DCW [id number]) Out-Patient Physical Therapy Visit Information Visit Information Visit Type Treatment Note Visit Start Time 12:00 Visit Stop Time 12:45 Total Visit Minutes 45 Visit Number 2 Number of HEAD BONE GRINDER Visits 0 Evaluation Information Evaluation Date 07/11/22 PT-OP-B Current Condition Start: 07/11/22 14:19 Freq: Status: Active Protocol: Document 07/11/22 11:15 DCW (Rec: 07/11/22 17:44 DCW [id number]) Current Condition History of Current Condition Onset Date Long-standing history Current Complaints Dizziness, cervical pain, thoracic pain, lumbar pain History of Current Condition Pt is a 57 year old male very well known to this clinic presenting with a multitude of complaints and ailments. Pt was recently seen at this facility following ankle surgery ~1 year ago, after which he had a sudden onset of new autoimmune disease, which left him hospitalized for one month, greatly setting back his recovery for his ankle. Due to poor gait, repeatedly twisting his ankle, and multiple falls, pt began to have significant pain in his mid- and low-back, as well as his right hip. Additionally, pt has been complaining of ongoing dizziness for the past six months, typically with various head turns, lasting multiple minutes to half an hour. Pt has had multiple surgeries in the past, including, but not limited to, ankle surgery, cervical fusion (s/p ~10 years), and thoracic outlet syndrome surgery. Treatment Goals Patient/Caregiver Goals Improve mobility by decreasing back pain PT-OP-C Subjective Start: 07/11/22 14:19 Freq: Status: Active Protocol: Document 07/14/22 12:00 DCW (Rec: 07/14/22 12:47 DCW [id number]) OP-PT Subjective Patient Comments Patient Comments My neck and low back are the main problems today. PT-OP-F Manual Assessment Start: 07/11/22 14:19 Freq: Status: Active Protocol: Document 07/11/22 11:15 DCW (Rec: 07/11/22 17:44 DCW [id number]) Manual Assessments Soft Tissue Assessment Soft Tissue Mobility Assessment Severe tone with tenderness to palpation 3/4: Wincing and withdraw along bilateral cervical, thoracic, and lumbar paraspinals, upper trap, levator scap, SCM, and QL, L>R . Joint Mobility Assessment Joint Mobility Assessment Hypomobility along entire spine, limited cervical mobility limits vestibular testing, specifically positional testing (Hallpike/ Roll) PT-OP-K Range of Motion Start: 07/11/22 14:19 Freq: Status: Active Protocol: Document 07/11/22 11:15 DCW (Rec: 07/11/22 17:44 DCW [id number]) Cervical Spine Range of Motion Cervical Spine Active Degrees Testing Position Sitting Flexion 40 Extension 25 Rotation Left 26 Rotation Right 51 Lateral Flexion Left 18 Lateral Flexion Right 15 ROM Limitations Soft Tissue Tightness, Contracture,Bony Restriction, Muscle Tone,Pain Lumbar Spine Range of Motion Lumbar Spine Active Degrees Testing Position Standing Flexion 30 Extension 5 ROM Limitations Soft Tissue Tightness, Contracture,Bony Restriction, Muscle Tone,Pain PT-OP-L Special Tests Start: 07/11/22 14:19 Freq: Status: Active Protocol: Document 07/11/22 11:15 DCW (Rec: 07/11/22 17:44 DC [id number]) Special Tests Cervical Spine Special Tests Slump Test Results Positive L Traction Test Results Mild pain relief Spurling's Test Test Results Positive L Comments Pain and dizziness Passive Neck Flexion Test Results Negative Foraminal Compression Test Results Positive L Alar Ligament Test Results Negative PT-OP-O Vestibular Start: 07/11/22 14:19 Freq: Status: Active Protocol: Document 07/11/22 11:15 DCW (Rec: 07/11/22 14:23 DCW [id number]) Vestibular Assessment Screening Tests Vestibular Artery Screen Negative Sharp-Selena Test Negative Visual Testing Smooth Pursuits Horizontal WNL Smooth Pursuits Vertical WNL Saccades Horizontal WNL Saccades Vertical WNL Heave Test Positive Right Thrust Head Positive Right Positional Testing Samantha-Hallpike Negative Left,Negative Right Rolling Test Negative Left,Negative Right Comments Vestibular Comments Pt reports vertigo/dizziness in all positions, worse with left-side dependent, but zero signs of nystagmus. Pt also has poor cervical extension and rotation, limiting proper positioning PT-OP-Q Treatments Start: 07/11/22 14:19 Freq: Status: Active Protocol: Document 07/14/22 12:00 DCW (Rec: 07/14/22 12:47 [facility] [id number]) Manual Therapy Treatment Soft Tissue Mobilization Lumbar Paraspinals Body Location QL, Paraspinals Mobilization Type Sustained Pressure,Trigger Point Release Intensity/Depth Moderate Body Position Prone Cervical Paraspinals Body Location UT, Paraspinals, Scalenes, Levator Mobilization Type Sustained Pressure,Trigger Point Release Intensity/Depth Moderate Body Position Supine Joint Mobilizations Lumbar Joint L1-5 Direction P->A Grade III Body Position Prone PT-OP-T Assessment and Plan Start: 07/11/22 14:19 Freq: Status: Active Protocol: Document 07/14/22 12:00 DCW (Rec: 07/14/22 12:47 [facility] [id number]) Physical Therapy Assessment Impairments Impairments Balance,Functional Activities, Functional Mobility,Gait, Integument,Pain,Posture,ROM, Soft Tissue Mobility,Strength, Tone,Vestibular Goals Three Impairment Pt experiences dizziness with positional changes Fpc Goal (LTG) Pt to report no episodes of dizziness while lying in bed for one full week to improve sleep pattern LTG Duration 10/09/22 Two Impairment Left cervical rotation limited to 26? Public Health Aide Goal (LTG) Pt to increase left cervical rotation by at least 19? to 45 ? in order to improve ability to turn head to look for traffic while driving. LTG Duration 10/09/22 One Impairment Pt does not have an appropriate home exercise program Short Term Goal (STG) Pt to be independent and compliant with an appropriate HEP STG Duration 08/22/22 Assessment Summary Assessment Pt felt significantly better following STM today, will assess pt's response to treatment and determine if cervical STM has helped decrease ongoing subjective complaints of dizziness. Physical Therapy Plan Frequency and Duration Frequency of Treatment 2x/Week Plan of Care Start Date 07/11/22 Plan of Care End Date 10/09/22 Therapeutic Interventions Therapeutic Interventions Aquatic Therapy,Balance Training,Gait Training,Home Exercise Program,Joint Mobilizations,Manual Therapy, Neuromuscular Re-education, Patient/Caregiver Education, Self-Care/Home Management,Soft Tissue Mobilization, Therapeutic Activities, Therapeutic Exercises, Vestibular Rehabilitation Modalities Cold Pack/Ice Massage,Electric Stimulation,Hot Packs, Ultrasound Next Visit Focus/Plan Next Note Type Treatment Note Next Visit Plan Cervical and lumbar STM/ stretching, core strengthening
--- NOTE | 2022-07-18 12:42 | PT.OTN ---
Current Diagnoses Benign paroxysmal vertigo, unspecified ear (07/18/22) Stiffness of other specified joint, not elsewhere classified (07/18/22) Spinal stenosis, lumbar region with neurogenic claudication (07/18/22) Intervertebral disc disorders with myelopathy, thoracic region (07/18/22) Other intervertebral disc displacement, lumbar region (07/18/22) Other intervertebral disc degeneration, lumbar region (07/18/22) Cervicalgia (07/18/22) Physical Therapy Treatment Note PT-OP-A Visit Information Start: 07/11/22 14:19 Freq: Status: Active Protocol: Document 07/18/22 12:00 DCW (Rec: 07/18/22 12:42 DCW [id number]) Out-Patient Physical Therapy Visit Information Visit Information Visit Type Treatment Note Visit Start Time 12:00 Visit Stop Time 12:45 Total Visit Minutes 45 Visit Number 3 Number of FRESH WORK INSPECTOR Visits 0 Evaluation Information Evaluation Date 07/11/22 PT-OP-B Current Condition Start: 07/11/22 14:19 Freq: Status: Active Protocol: Document 07/11/22 11:15 DCW (Rec: 07/11/22 17:44 DCW [id number]) Current Condition History of Current Condition Onset Date Long-standing history Current Complaints Dizziness, cervical pain, thoracic pain, lumbar pain History of Current Condition Pt is a 57 year old male very well known to this clinic presenting with a multitude of complaints and ailments. Pt was recently seen at this facility following ankle surgery ~1 year ago, after which he had a sudden onset of new autoimmune disease, which left him hospitalized for one month, greatly setting back his recovery for his ankle. Due to poor gait, repeatedly twisting his ankle, and multiple falls, pt began to have significant pain in his mid- and low-back, as well as his right hip. Additionally, pt has been complaining of ongoing dizziness for the past six months, typically with various head turns, lasting multiple minutes to half an hour. Pt has had multiple surgeries in the past, including, but not limited to, ankle surgery, cervical fusion (s/p ~10 years), and thoracic outlet syndrome surgery. Treatment Goals Patient/Caregiver Goals Improve mobility by decreasing back pain PT-OP-C Subjective Start: 07/11/22 14:19 Freq: Status: Active Protocol: Document 07/18/22 12:00 DCW (Rec: 07/18/22 12:42 DCW [id number]) OP-PT Subjective Patient Comments Patient Comments Pt reports he felt pretty good for a day and a half after I was in here, then started creeping back. PT-OP-F Manual Assessment Start: 07/11/22 14:19 Freq: Status: Active Protocol: Document 07/11/22 11:15 DCW (Rec: 07/11/22 17:44 DCW [id number]) Manual Assessments Soft Tissue Assessment Soft Tissue Mobility Assessment Severe tone with tenderness to palpation 3/4: Wincing and withdraw along bilateral cervical, thoracic, and lumbar paraspinals, upper trap, levator scap, SCM, and QL, L>R . Joint Mobility Assessment Joint Mobility Assessment Hypomobility along entire spine, limited cervical mobility limits vestibular testing, specifically positional testing (Hallpike/ Roll) PT-OP-K Range of Motion Start: 07/11/22 14:19 Freq: Status: Active Protocol: Document 07/11/22 11:15 DCW (Rec: 07/11/22 17:44 DCW [id number]) Cervical Spine Range of Motion Cervical Spine Active Degrees Testing Position Sitting Flexion 40 Extension 25 Rotation Left 26 Rotation Right 51 Lateral Flexion Left 18 Lateral Flexion Right 15 ROM Limitations Soft Tissue Tightness, Contracture,Bony Restriction, Muscle Tone,Pain Lumbar Spine Range of Motion Lumbar Spine Active Degrees Testing Position Standing Flexion 30 Extension 5 ROM Limitations Soft Tissue Tightness, Contracture,Bony Restriction, Muscle Tone,Pain PT-OP-L Special Tests Start: 07/11/22 14:19 Freq: Status: Active Protocol: Document 07/11/22 11:15 DCW (Rec: 07/11/22 17:44 DCW [id number]) Special Tests Cervical Spine Special Tests Slump Test Results Positive L Traction Test Results Mild pain relief Spurling's Test Test Results Positive L Comments Pain and dizziness Passive Neck Flexion Test Results Negative Foraminal Compression Test Results Positive L Alar Ligament Test Results Negative PT-OP-O Vestibular Start: 07/11/22 14:19 Freq: Status: Active Protocol: Document 07/11/22 11:15 DCW (Rec: 07/11/22 14:23 DCW [id number]) Vestibular Assessment Screening Tests Vestibular Artery Screen Negative Sharp-Selena Test Negative Visual Testing Smooth Pursuits Horizontal WNL Smooth Pursuits Vertical WNL Saccades Horizontal WNL Saccades Vertical WNL Heave Test Positive Right Thrust Head Positive Right Positional Testing Clover-Hallpike Negative Left,Negative Right Rolling Test Negative Left,Negative Right Comments Vestibular Comments Pt reports vertigo/dizziness in all positions, worse with left-side dependent, but zero signs of nystagmus. Pt also has poor cervical extension and rotation, limiting proper positioning PT-OP-Q Treatments Start: 07/11/22 14:19 Freq: Status: Active Protocol: Document 07/18/22 12:00 DCW (Rec: 07/18/22 12:42 [facility] [id number]) Manual Therapy Treatment Soft Tissue Mobilization Lumbar Paraspinals Body Location QL, Paraspinals Mobilization Type Sustained Pressure,Trigger Point Release Intensity/Depth Moderate Body Position Prone Cervical Paraspinals Body Location UT, Paraspinals, Scalenes, Levator Mobilization Type Sustained Pressure,Trigger Point Release Intensity/Depth Moderate Body Position Supine Joint Mobilizations Lumbar Joint L1-5 Direction P->A Grade III Body Position Prone PT-OP-T Assessment and Plan Start: 07/11/22 14:19 Freq: Status: Active Protocol: Document 07/18/22 12:00 DCW (Rec: 07/18/22 12:42 [facility] [id number]) Physical Therapy Assessment Impairments Impairments Balance,Functional Activities, Functional Mobility,Gait, Integument,Pain,Posture,ROM, Soft Tissue Mobility,Strength, Tone,Vestibular Goals Three Impairment Pt experiences dizziness with positional changes 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 Maintenance Mechanic [employer] Goal (LTG) Pt to increase left cervical rotation by at least 19? to 45 ? in order to improve ability to turn head to look for traffic while driving. LTG Duration 10/09/22 One Impairment Pt does not have an appropriate home exercise program Short Term Goal (STG) Pt to be independent and compliant with an appropriate HEP STG Duration 08/22/22 Assessment Summary Assessment Pt notes significant improvement with dizziness with STM last week, improved mobility. Showing some overall improvement with ambulation. Physical Therapy Plan Frequency and Duration Frequency of Treatment 2x/Week Plan of Care Start Date 07/11/22 Plan of Care End Date 10/09/22 Therapeutic Interventions Therapeutic Interventions Aquatic Therapy,Balance Training,Gait Training,Home Exercise Program,Joint Mobilizations,Manual Therapy, Neuromuscular Re-education, Patient/Caregiver Education, Self-Care/Home Management,Soft Tissue Mobilization, Therapeutic Activities, Therapeutic Exercises, Vestibular Rehabilitation Modalities Cold Pack/Ice Massage,Electric Stimulation,Hot Packs, Ultrasound Next Visit Focus/Plan Next Note Type Treatment Note Next Visit Plan Cervical and lumbar STM/ stretching, core strengthening
--- NOTE | 2022-07-21 12:46 | PT.OTN ---
Current Diagnoses Benign paroxysmal vertigo, unspecified ear (07/21/22) Stiffness of other specified joint, not elsewhere classified (07/21/22) Spinal stenosis, lumbar region with neurogenic claudication (07/21/22) Intervertebral disc disorders with myelopathy, thoracic region (07/21/22) Other intervertebral disc displacement, lumbar region (07/21/22) Other intervertebral disc degeneration, lumbar region (07/21/22) Cervicalgia (07/21/22) Physical Therapy Treatment Note PT-OP-A Visit Information Start: 07/11/22 14:19 Freq: Status: Active Protocol: Document 07/21/22 12:00 DCW (Rec: 07/21/22 12:46 DCW [id number]) Out-Patient Physical Therapy Visit Information Visit Information Visit Type Treatment Note Visit Start Time 12:00 Visit Stop Time 12:45 Total Visit Minutes 45 Visit Number 4 Number of SALES RECRUITMENT SPECIALIST Visits 0 Evaluation Information Evaluation Date 07/11/22 PT-OP-B Current Condition Start: 07/11/22 14:19 Freq: Status: Active Protocol: Document 07/11/22 11:15 DCW (Rec: 07/11/22 17:44 DCW [id number]) Current Condition History of Current Condition Onset Date Long-standing history Current Complaints Dizziness, cervical pain, thoracic pain, lumbar pain History of Current Condition Pt is a 57 year old male very well known to this clinic presenting with a multitude of complaints and ailments. Pt was recently seen at this facility following ankle surgery ~1 year ago, after which he had a sudden onset of new autoimmune disease, which left him hospitalized for one month, greatly setting back his recovery for his ankle. Due to poor gait, repeatedly twisting his ankle, and multiple falls, pt began to have significant pain in his mid- and low-back, as well as his right hip. Additionally, pt has been complaining of ongoing dizziness for the past six months, typically with various head turns, lasting multiple minutes to half an hour. Pt has had multiple surgeries in the past, including, but not limited to, ankle surgery, cervical fusion (s/p ~10 years), and thoracic outlet syndrome surgery. Treatment Goals Patient/Caregiver Goals Improve mobility by decreasing back pain PT-OP-C Subjective Start: 07/11/22 14:19 Freq: Status: Active Protocol: Document 07/21/22 12:00 DCW (Rec: 07/21/22 12:46 DCW [id number]) OP-PT Subjective Patient Comments Patient Comments I'm actually getting some popping in my back, and it's moving a bit better. I'm standing up a little straighter recently, so that's nice. PT-OP-F Manual Assessment Start: 07/11/22 14:19 Freq: Status: Active Protocol: Document 07/11/22 11:15 DCW (Rec: 07/11/22 17:44 DCW [id number]) Manual Assessments Soft Tissue Assessment Soft Tissue Mobility Assessment Severe tone with tenderness to palpation 3/4: Wincing and withdraw along bilateral cervical, thoracic, and lumbar paraspinals, upper trap, levator scap, SCM, and QL, L>R . Joint Mobility Assessment Joint Mobility Assessment Hypomobility along entire spine, limited cervical mobility limits vestibular testing, specifically positional testing (Hallpike/ Roll) PT-OP-K Range of Motion Start: 07/11/22 14:19 Freq: Status: Active Protocol: Document 07/11/22 11:15 DCW (Rec: 07/11/22 17:44 [facility] [id number]) Cervical Spine Range of Motion Cervical Spine Active Degrees Testing Position Sitting Flexion 40 Extension 25 Rotation Left 26 Rotation Right 51 Lateral Flexion Left 18 Lateral Flexion Right 15 ROM Limitations Soft Tissue Tightness, Contracture,Bony Restriction, Muscle Tone,Pain Lumbar Spine Range of Motion Lumbar Spine Active Degrees Testing Position Standing Flexion 30 Extension 5 ROM Limitations Soft Tissue Tightness, Contracture,Bony Restriction, Muscle Tone,Pain PT-OP-L Special Tests Start: 07/11/22 14:19 Freq: Status: Active Protocol: Document 07/11/22 11:15 DCW (Rec: 07/11/22 17:44 DCW [id number]) Special Tests Cervical Spine Special Tests Slump Test Results Positive L Traction Test Results Mild pain relief Spurling's Test Test Results Positive L Comments Pain and dizziness Passive Neck Flexion Test Results Negative Foraminal Compression Test Results Positive L Alar Ligament Test Results Negative PT-OP-O Vestibular Start: 07/11/22 14:19 Freq: Status: Active Protocol: Document 07/11/22 11:15 DCW (Rec: 07/11/22 14:23 DCW [id number]) Vestibular Assessment Screening Tests Vestibular Artery Screen Negative Sharp-Selena Test Negative Visual Testing Smooth Pursuits Horizontal WNL Smooth Pursuits Vertical WNL Saccades Horizontal WNL Saccades Vertical WNL Heave Test Positive Right Thrust Head Positive Right Positional Testing [place]-Hallpike Negative Left,Negative Right Rolling Test Negative Left,Negative Right Comments Vestibular Comments Pt reports vertigo/dizziness in all positions, worse with left-side dependent, but zero signs of nystagmus. Pt also has poor cervical extension and rotation, limiting proper positioning PT-OP-Q Treatments Start: 07/11/22 14:19 Freq: Status: Active Protocol: Document 07/21/22 12:00 DCW (Rec: 07/21/22 12:46 [facility] [id number]) Manual Therapy Treatment Soft Tissue Mobilization Lumbar Paraspinals Body Location QL, Paraspinals Mobilization Type Sustained Pressure,Trigger Point Release Intensity/Depth Moderate Body Position Prone Cervical Paraspinals Body Location UT, Paraspinals, Scalenes, Levator Mobilization Type Sustained Pressure,Trigger Point Release Intensity/Depth Moderate Body Position Supine Joint Mobilizations Lumbar Joint L1-5 Direction P->A Grade III Body Position Prone PT-OP-T Assessment and Plan Start: 07/11/22 14:19 Freq: Status: Active Protocol: Document 07/21/22 12:00 DCW (Rec: 07/21/22 12:46 [facility] [id number]) Physical Therapy Assessment Impairments Impairments Balance,Functional Activities, Functional Mobility,Gait, Integument,Pain,Posture,ROM, Soft Tissue Mobility,Strength, Tone,Vestibular Goals Three Impairment Pt experiences dizziness with positional changes Care Home Goal (LTG) Pt to report no episodes of dizziness while lying in bed for one full week to improve sleep pattern LTG Duration 10/09/22 Two Impairment Left cervical rotation limited to 26? Care Home Goal (LTG) Pt to increase left cervical rotation by at least 19? to 45 ? in order to improve ability to turn head to look for traffic while driving. LTG Duration 10/09/22 One Impairment Pt does not have an appropriate home exercise program Short Term Goal (STG) Pt to be independent and compliant with an appropriate HEP STG Duration 08/22/22 Assessment Summary Assessment Pt brings in his new AFO today for ankle stabilization, wanted assistance with getting in his shoe. Pt overall showing improved muscle tone in neck and low back. Physical Therapy Plan Frequency and Duration Frequency of Treatment 2x/Week Plan of Care Start Date 07/11/22 Plan of Care End Date 10/09/22 Therapeutic Interventions Therapeutic Interventions Aquatic Therapy,Balance Training,Gait Training,Home Exercise Program,Joint Mobilizations,Manual Therapy, Neuromuscular Re-education, Patient/Caregiver Education, Self-Care/Home Management,Soft Tissue Mobilization, Therapeutic Activities, Therapeutic Exercises, Vestibular Rehabilitation Modalities Cold Pack/Ice Massage,Electric Stimulation,Hot Packs, Ultrasound Next Visit Focus/Plan Next Note Type Treatment Note Next Visit Plan Cervical and lumbar STM/ stretching, core strengthening
--- NOTE | 2022-08-01 12:41 | PT.OTN ---
Current Diagnoses Benign paroxysmal vertigo, unspecified ear (08/01/22) Stiffness of other specified joint, not elsewhere classified (08/01/22) Spinal stenosis, lumbar region with neurogenic claudication (08/01/22) Intervertebral disc disorders with myelopathy, thoracic region (08/01/22) Other intervertebral disc displacement, lumbar region (08/01/22) Other intervertebral disc degeneration, lumbar region (08/01/22) Cervicalgia (08/01/22) Physical Therapy Treatment Note PT-OP-A Visit Information Start: 07/11/22 14:19 Freq: Status: Active Protocol: Document 08/01/22 12:00 DCW (Rec: 08/01/22 12:41 DCW [id number]) Out-Patient Physical Therapy Visit Information Visit Information Visit Type Treatment Note Visit Start Time 12:00 Visit Stop Time 12:45 Total Visit Minutes 45 Visit Number 5 Number of AUTO DAMAGE ESTIMATOR Visits 0 Evaluation Information Evaluation Date 07/11/22 PT-OP-B Current Condition Start: 07/11/22 14:19 Freq: Status: Active Protocol: Document 07/11/22 11:15 DCW (Rec: 07/11/22 17:44 DCW [id number]) Current Condition History of Current Condition Onset Date Long-standing history Current Complaints Dizziness, cervical pain, thoracic pain, lumbar pain History of Current Condition Pt is a 57 year old male very well known to this clinic presenting with a multitude of complaints and ailments. Pt was recently seen at this facility following ankle surgery ~1 year ago, after which he had a sudden onset of new autoimmune disease, which left him hospitalized for one month, greatly setting back his recovery for his ankle. Due to poor gait, repeatedly twisting his ankle, and multiple falls, pt began to have significant pain in his mid- and low-back, as well as his right hip. Additionally, pt has been complaining of ongoing dizziness for the past six months, typically with various head turns, lasting multiple minutes to half an hour. Pt has had multiple surgeries in the past, including, but not limited to, ankle surgery, cervical fusion (s/p ~10 years), and thoracic outlet syndrome surgery. Treatment Goals Patient/Caregiver Goals Improve mobility by decreasing back pain PT-OP-C Subjective Start: 07/11/22 14:19 Freq: Status: Active Protocol: Document 08/01/22 12:00 DCW (Rec: 08/01/22 12:41 DCW [id number]) OP-PT Subjective Patient Comments Patient Comments Pt reports his back is bound up tight. PT-OP-F Manual Assessment Start: 07/11/22 14:19 Freq: Status: Active Protocol: Document 07/11/22 11:15 DCW (Rec: 07/11/22 17:44 DCW [id number]) Manual Assessments Soft Tissue Assessment Soft Tissue Mobility Assessment Severe tone with tenderness to palpation 3/4: Wincing and withdraw along bilateral cervical, thoracic, and lumbar paraspinals, upper trap, levator scap, SCM, and QL, L>R . Joint Mobility Assessment Joint Mobility Assessment Hypomobility along entire spine, limited cervical mobility limits vestibular testing, specifically positional testing (Hallpike/ Roll) PT-OP-K Range of Motion Start: 07/11/22 14:19 Freq: Status: Active Protocol: Document 07/11/22 11:15 DCW (Rec: 07/11/22 17:44 DCW [id number]) Cervical Spine Range of Motion Cervical Spine Active Degrees Testing Position Sitting Flexion 40 Extension 25 Rotation Left 26 Rotation Right 51 Lateral Flexion Left 18 Lateral Flexion Right 15 ROM Limitations Soft Tissue Tightness, Contracture,Bony Restriction, Muscle Tone,Pain Lumbar Spine Range of Motion Lumbar Spine Active Degrees Testing Position Standing Flexion 30 Extension 5 ROM Limitations Soft Tissue Tightness, Contracture,Bony Restriction, Muscle Tone,Pain PT-OP-L Special Tests Start: 07/11/22 14:19 Freq: Status: Active Protocol: Document 07/11/22 11:15 DCW (Rec: 07/11/22 17:44 DCW [id number]) Special Tests Cervical Spine Special Tests Slump Test Results Positive L Traction Test Results Mild pain relief Spurling's Test Test Results Positive L Comments Pain and dizziness Passive Neck Flexion Test Results Negative Foraminal Compression Test Results Positive L Alar Ligament Test Results Negative PT-OP-O Vestibular Start: 07/11/22 14:19 Freq: Status: Active Protocol: Document 07/11/22 11:15 DCW (Rec: 07/11/22 14:23 DCW [id number]) Vestibular Assessment Screening Tests Vestibular Artery Screen Negative Sharp-Selena Test Negative Visual Testing Smooth Pursuits Horizontal WNL Smooth Pursuits Vertical WNL Saccades Horizontal WNL Saccades Vertical WNL Heave Test Positive Right Thrust Head Positive Right Positional Testing [place]-Hallpike Negative Left,Negative Right Rolling Test Negative Left,Negative Right Comments Vestibular Comments Pt reports vertigo/dizziness in all positions, worse with left-side dependent, but zero signs of nystagmus. Pt also has poor cervical extension and rotation, limiting proper positioning PT-OP-Q Treatments Start: 07/11/22 14:19 Freq: Status: Active Protocol: Document 08/01/22 12:00 DCW (Rec: 08/01/22 12:41 [facility] [id number]) Manual Therapy Treatment Soft Tissue Mobilization Lumbar Paraspinals Body Location QL, Paraspinals Mobilization Type Sustained Pressure,Trigger Point Release Intensity/Depth Moderate Body Position Prone Cervical Paraspinals Body Location UT, Paraspinals, Scalenes, Levator Mobilization Type Sustained Pressure,Trigger Point Release Intensity/Depth Moderate Body Position Supine Joint Mobilizations Lumbar Joint L1-5 Direction P->A Grade III Body Position Prone PT-OP-T Assessment and Plan Start: 07/11/22 14:19 Freq: Status: Active Protocol: Document 08/01/22 12:00 DCW (Rec: 08/01/22 12:41 [facility] [id number]) Physical Therapy Assessment Impairments Impairments Balance,Functional Activities, Functional Mobility,Gait, Integument,Pain,Posture,ROM, Soft Tissue Mobility,Strength, Tone,Vestibular Goals Three Impairment Pt experiences dizziness with positional changes Clearance Representative Goal (LTG) Pt to report no episodes of dizziness while lying in bed for one full week to improve sleep pattern LTG Duration 10/09/22 Two Impairment Left cervical rotation limited to 26? Clearance Representative Goal (LTG) Pt to increase left cervical rotation by at least 19? to 45 ? in order to improve ability to turn head to look for traffic while driving. LTG Duration 10/09/22 One Impairment Pt does not have an appropriate home exercise program Short Term Goal (STG) Pt to be independent and compliant with an appropriate HEP STG Duration 08/22/22 Assessment Summary Assessment Pt making slow but noticeable progress with tone and pain- management. Ankle appears to be more stable with new brace. Improving functional mobility with decreased lumbar tone. Physical Therapy Plan Frequency and Duration Frequency of Treatment 2x/Week Plan of Care Start Date 07/11/22 Plan of Care End Date 10/09/22 Therapeutic Interventions Therapeutic Interventions Aquatic Therapy,Balance Training,Gait Training,Home Exercise Program,Joint Mobilizations,Manual Therapy, Neuromuscular Re-education, Patient/Caregiver Education, Self-Care/Home Management,Soft Tissue Mobilization, Therapeutic Activities, Therapeutic Exercises, Vestibular Rehabilitation Modalities Cold Pack/Ice Massage,Electric Stimulation,Hot Packs, Ultrasound Next Visit Focus/Plan Next Note Type Treatment Note Next Visit Plan Cervical and lumbar STM/ stretching, core strengthening
--- NOTE | 2022-08-04 12:38 | PT.OTN ---
Current Diagnoses Benign paroxysmal vertigo, unspecified ear (08/04/22) Stiffness of other specified joint, not elsewhere classified (08/04/22) Spinal stenosis, lumbar region with neurogenic claudication (08/04/22) Intervertebral disc disorders with myelopathy, thoracic region (08/04/22) Other intervertebral disc displacement, lumbar region (08/04/22) Other intervertebral disc degeneration, lumbar region (08/04/22) Cervicalgia (08/04/22) Physical Therapy Treatment Note PT-OP-A Visit Information Start: 07/11/22 14:19 Freq: Status: Active Protocol: Document 08/04/22 12:02 DCW (Rec: 08/04/22 12:38 DCW [id number]) Out-Patient Physical Therapy Visit Information Visit Information Visit Type Treatment Note Visit Start Time 12:02 Visit Stop Time 12:45 Total Visit Minutes 43 Visit Number 6 Number of BARREL BURNER Visits 0 Evaluation Information Evaluation Date 07/11/22 PT-OP-B Current Condition Start: 07/11/22 14:19 Freq: Status: Active Protocol: Document 07/11/22 11:15 DCW (Rec: 07/11/22 17:44 DCW [id number]) Current Condition History of Current Condition Onset Date Long-standing history Current Complaints Dizziness, cervical pain, thoracic pain, lumbar pain History of Current Condition Pt is a 57 year old male very well known to this clinic presenting with a multitude of complaints and ailments. Pt was recently seen at this facility following ankle surgery ~1 year ago, after which he had a sudden onset of new autoimmune disease, which left him hospitalized for one month, greatly setting back his recovery for his ankle. Due to poor gait, repeatedly twisting his ankle, and multiple falls, pt began to have significant pain in his mid- and low-back, as well as his right hip. Additionally, pt has been complaining of ongoing dizziness for the past six months, typically with various head turns, lasting multiple minutes to half an hour. Pt has had multiple surgeries in the past, including, but not limited to, ankle surgery, cervical fusion (s/p ~10 years), and thoracic outlet syndrome surgery. Treatment Goals Patient/Caregiver Goals Improve mobility by decreasing back pain PT-OP-C Subjective Start: 07/11/22 14:19 Freq: Status: Active Protocol: Document 08/04/22 12:02 DCW (Rec: 08/04/22 12:38 DCW [id number]) OP-PT Subjective Patient Comments Patient Comments Everything's a bit tight, but better. PT-OP-F Manual Assessment Start: 07/11/22 14:19 Freq: Status: Active Protocol: Document 07/11/22 11:15 DCW (Rec: 07/11/22 17:44 DCW [id number]) Manual Assessments Soft Tissue Assessment Soft Tissue Mobility Assessment Severe tone with tenderness to palpation 3/4: Wincing and withdraw along bilateral cervical, thoracic, and lumbar paraspinals, upper trap, levator scap, SCM, and QL, L>R . Joint Mobility Assessment Joint Mobility Assessment Hypomobility along entire spine, limited cervical mobility limits vestibular testing, specifically positional testing (Hallpike/ Roll) PT-OP-K Range of Motion Start: 07/11/22 14:19 Freq: Status: Active Protocol: Document 07/11/22 11:15 DCW (Rec: 07/11/22 17:44 DCW [id number]) Cervical Spine Range of Motion Cervical Spine Active Degrees Testing Position Sitting Flexion 40 Extension 25 Rotation Left 26 Rotation Right 51 Lateral Flexion Left 18 Lateral Flexion Right 15 ROM Limitations Soft Tissue Tightness, Contracture,Bony Restriction, Muscle Tone,Pain Lumbar Spine Range of Motion Lumbar Spine Active Degrees Testing Position Standing Flexion 30 Extension 5 ROM Limitations Soft Tissue Tightness, Contracture,Bony Restriction, Muscle Tone,Pain PT-OP-L Special Tests Start: 07/11/22 14:19 Freq: Status: Active Protocol: Document 07/11/22 11:15 DCW (Rec: 07/11/22 17:44 DCW [id number]) Special Tests Cervical Spine Special Tests Slump Test Results Positive L Traction Test Results Mild pain relief Spurling's Test Test Results Positive L Comments Pain and dizziness Passive Neck Flexion Test Results Negative Foraminal Compression Test Results Positive L Alar Ligament Test Results Negative PT-OP-O Vestibular Start: 07/11/22 14:19 Freq: Status: Active Protocol: Document 07/11/22 11:15 DCW (Rec: 07/11/22 14:23 DCW [id number]) Vestibular Assessment Screening Tests Vestibular Artery Screen Negative Sharp-Selena Test Negative Visual Testing Smooth Pursuits Horizontal WNL Smooth Pursuits Vertical WNL Saccades Horizontal WNL Saccades Vertical WNL Heave Test Positive Right Thrust Head Positive Right Positional Testing [place]-Hallpike Negative Left,Negative Right Rolling Test Negative Left,Negative Right Comments Vestibular Comments Pt reports vertigo/dizziness in all positions, worse with left-side dependent, but zero signs of nystagmus. Pt also has poor cervical extension and rotation, limiting proper positioning PT-OP-Q Treatments Start: 07/11/22 14:19 Freq: Status: Active Protocol: Document 08/04/22 12:02 DCW (Rec: 08/04/22 12:38 [facility] [id number]) Therapeutic Exercises Supine Exercises ITB Stretch Supine Exercise Name ITB Stretch Side bilateral Hamstring Stretch Supine Exercise Name HS Stretch Side bilateral Manual Therapy Treatment Soft Tissue Mobilization Lumbar Paraspinals Body Location QL, Paraspinals Mobilization Type Sustained Pressure,Trigger Point Release Intensity/Depth Moderate Body Position Prone Cervical Paraspinals Body Location UT, Paraspinals, Scalenes, Levator Mobilization Type Sustained Pressure,Trigger Point Release Intensity/Depth Moderate Body Position Supine Joint Mobilizations Lumbar Joint L1-5 Direction P->A Grade III Body Position Prone PT-OP-T Assessment and Plan Start: 07/11/22 14:19 Freq: Status: Active Protocol: Document 08/04/22 12:02 DCW (Rec: 08/04/22 12:38 [facility] [id number]) Physical Therapy Assessment Impairments Impairments Balance,Functional Activities, Functional Mobility,Gait, Integument,Pain,Posture,ROM, Soft Tissue Mobility,Strength, Tone,Vestibular Goals Three Impairment Pt experiences dizziness with positional changes Assistant Food Service Director Goal (LTG) Pt to report no episodes of dizziness while lying in bed for one full week to improve sleep pattern LTG Duration 10/09/22 Two Impairment Left cervical rotation limited to 26? Half-Way Goal (LTG) Pt to increase left cervical rotation by at least 19? to 45 ? in order to improve ability to turn head to look for traffic while driving. LTG Duration 10/09/22 One Impairment Pt does not have an appropriate home exercise program Short Term Goal (STG) Pt to be independent and compliant with an appropriate HEP STG Duration 08/22/22 Assessment Summary Assessment Pt more mobilie today with bed mobility, responded very well to hamstring and ITB stretching. Physical Therapy Plan Frequency and Duration Frequency of Treatment 2x/Week Plan of Care Start Date 07/11/22 Plan of Care End Date 10/09/22 Therapeutic Interventions Therapeutic Interventions Aquatic Therapy,Balance Training,Gait Training,Home Exercise Program,Joint Mobilizations,Manual Therapy, Neuromuscular Re-education, Patient/Caregiver Education, Self-Care/Home Management,Soft Tissue Mobilization, Therapeutic Activities, Therapeutic Exercises, Vestibular Rehabilitation Modalities Cold Pack/Ice Massage,Electric Stimulation,Hot Packs, Ultrasound Next Visit Focus/Plan Next Note Type Treatment Note Next Visit Plan Cervical and lumbar STM/ stretching, core strengthening
--- NOTE | 2022-08-08 12:43 | PT.OTN ---
Current Diagnoses Benign paroxysmal vertigo, unspecified ear (08/08/22) Stiffness of other specified joint, not elsewhere classified (08/08/22) Spinal stenosis, lumbar region with neurogenic claudication (08/08/22) Intervertebral disc disorders with myelopathy, thoracic region (08/08/22) Other intervertebral disc displacement, lumbar region (08/08/22) Other intervertebral disc degeneration, lumbar region (08/08/22) Cervicalgia (08/08/22) Physical Therapy Treatment Note PT-OP-A Visit Information Start: 07/11/22 14:19 Freq: Status: Active Protocol: Document 08/08/22 12:00 DCW (Rec: 08/08/22 12:43 DCW [id number]) Out-Patient Physical Therapy Visit Information Visit Information Visit Type Treatment Note Visit Start Time 12:00 Visit Stop Time 12:45 Total Visit Minutes 45 Visit Number 7 Number of OFFSET LABEL REWINDER Visits 0 Evaluation Information Evaluation Date 07/11/22 PT-OP-B Current Condition Start: 07/11/22 14:19 Freq: Status: Active Protocol: Document 07/11/22 11:15 DCW (Rec: 07/11/22 17:44 DCW [id number]) Current Condition History of Current Condition Onset Date Long-standing history Current Complaints Dizziness, cervical pain, thoracic pain, lumbar pain History of Current Condition Pt is a 57 year old male very well known to this clinic presenting with a multitude of complaints and ailments. Pt was recently seen at this facility following ankle surgery ~1 year ago, after which he had a sudden onset of new autoimmune disease, which left him hospitalized for one month, greatly setting back his recovery for his ankle. Due to poor gait, repeatedly twisting his ankle, and multiple falls, pt began to have significant pain in his mid- and low-back, as well as his right hip. Additionally, pt has been complaining of ongoing dizziness for the past six months, typically with various head turns, lasting multiple minutes to half an hour. Pt has had multiple surgeries in the past, including, but not limited to, ankle surgery, cervical fusion (s/p ~10 years), and thoracic outlet syndrome surgery. Treatment Goals Patient/Caregiver Goals Improve mobility by decreasing back pain PT-OP-C Subjective Start: 07/11/22 14:19 Freq: Status: Active Protocol: Document 08/08/22 12:00 DCW (Rec: 08/08/22 12:43 DCW [id number]) OP-PT Subjective Patient Comments Patient Comments Pt reports he saw his neurologist yesterday, they want to do an EMG to see if they can determine what type of idiopathic neuropathy he has. PT-OP-F Manual Assessment Start: 07/11/22 14:19 Freq: Status: Active Protocol: Document 07/11/22 11:15 DCW (Rec: 07/11/22 17:44 DCW [id number]) Manual Assessments Soft Tissue Assessment Soft Tissue Mobility Assessment Severe tone with tenderness to palpation 3/4: Wincing and withdraw along bilateral cervical, thoracic, and lumbar paraspinals, upper trap, levator scap, SCM, and QL, L>R . Joint Mobility Assessment Joint Mobility Assessment Hypomobility along entire spine, limited cervical mobility limits vestibular testing, specifically positional testing (Hallpike/ Roll) PT-OP-K Range of Motion Start: 07/11/22 14:19 Freq: Status: Active Protocol: Document 07/11/22 11:15 DCW (Rec: 07/11/22 17:44 DCW [id number]) Cervical Spine Range of Motion Cervical Spine Active Degrees Testing Position Sitting Flexion 40 Extension 25 Rotation Left 26 Rotation Right 51 Lateral Flexion Left 18 Lateral Flexion Right 15 ROM Limitations Soft Tissue Tightness, Contracture,Bony Restriction, Muscle Tone,Pain Lumbar Spine Range of Motion Lumbar Spine Active Degrees Testing Position Standing Flexion 30 Extension 5 ROM Limitations Soft Tissue Tightness, Contracture,Bony Restriction, Muscle Tone,Pain PT-OP-L Special Tests Start: 07/11/22 14:19 Freq: Status: Active Protocol: Document 07/11/22 11:15 DCW (Rec: 07/11/22 17:44 DCW [id number]) Special Tests Cervical Spine Special Tests Slump Test Results Positive L Traction Test Results Mild pain relief Spurling's Test Test Results Positive L Comments Pain and dizziness Passive Neck Flexion Test Results Negative Foraminal Compression Test Results Positive L Alar Ligament Test Results Negative PT-OP-O Vestibular Start: 07/11/22 14:19 Freq: Status: Active Protocol: Document 07/11/22 11:15 DCW (Rec: 07/11/22 14:23 DCW [id number]) Vestibular Assessment Screening Tests Vestibular Artery Screen Negative Sharp-Selena Test Negative Visual Testing Smooth Pursuits Horizontal WNL Smooth Pursuits Vertical WNL Saccades Horizontal WNL Saccades Vertical WNL Heave Test Positive Right Thrust Head Positive Right Positional Testing Samantha-Hallpike Negative Left,Negative Right Rolling Test Negative Left,Negative Right Comments Vestibular Comments Pt reports vertigo/dizziness in all positions, worse with left-side dependent, but zero signs of nystagmus. Pt also has poor cervical extension and rotation, limiting proper positioning PT-OP-Q Treatments Start: 07/11/22 14:19 Freq: Status: Active Protocol: Document 08/08/22 12:00 DCW (Rec: 08/08/22 12:43 [facility] [id number]) Manual Therapy Treatment Soft Tissue Mobilization Lumbar Paraspinals Body Location QL, Paraspinals Mobilization Type Sustained Pressure,Trigger Point Release Intensity/Depth Moderate Body Position Prone Cervical Paraspinals Body Location UT, Paraspinals, Scalenes, Levator Mobilization Type Sustained Pressure,Trigger Point Release Intensity/Depth Moderate Body Position Supine Joint Mobilizations Lumbar Joint L1-5 Direction P->A Grade III Body Position Prone PT-OP-T Assessment and Plan Start: 07/11/22 14:19 Freq: Status: Active Protocol: Document 08/08/22 12:00 DCW (Rec: 08/08/22 12:43 [facility] [id number]) Physical Therapy Assessment Impairments Impairments Balance,Functional Activities, Functional Mobility,Gait, Integument,Pain,Posture,ROM, Soft Tissue Mobility,Strength, Tone,Vestibular Goals Three Impairment Pt experiences dizziness with positional changes Snf Goal (LTG) Pt to report no episodes of dizziness while lying in bed for one full week to improve sleep pattern LTG Duration 10/09/22 Two Impairment Left cervical rotation limited to 26? Web Marketing Coordinator Goal (LTG) Pt to increase left cervical rotation by at least 19? to 45 ? in order to improve ability to turn head to look for traffic while driving. LTG Duration 10/09/22 One Impairment Pt does not have an appropriate home exercise program Short Term Goal (STG) Pt to be independent and compliant with an appropriate HEP STG Duration 08/22/22 Assessment Summary Assessment Pt largely showing overall improvement with tone and mobility over the past week, less tenderness to palpation today. Physical Therapy Plan Frequency and Duration Frequency of Treatment 2x/Week Plan of Care Start Date 07/11/22 Plan of Care End Date 10/09/22 Therapeutic Interventions Therapeutic Interventions Aquatic Therapy,Balance Training,Gait Training,Home Exercise Program,Joint Mobilizations,Manual Therapy, Neuromuscular Re-education, Patient/Caregiver Education, Self-Care/Home Management,Soft Tissue Mobilization, Therapeutic Activities, Therapeutic Exercises, Vestibular Rehabilitation Modalities Cold Pack/Ice Massage,Electric Stimulation,Hot Packs, Ultrasound Next Visit Focus/Plan Next Note Type Treatment Note Next Visit Plan Cervical and lumbar STM/ stretching, core strengthening
--- NOTE | 2022-08-11 12:44 | PT.OTN ---
Current Diagnoses Benign paroxysmal vertigo, unspecified ear (08/11/22) Stiffness of other specified joint, not elsewhere classified (08/11/22) Spinal stenosis, lumbar region with neurogenic claudication (08/11/22) Intervertebral disc disorders with myelopathy, thoracic region (08/11/22) Other intervertebral disc displacement, lumbar region (08/11/22) Other intervertebral disc degeneration, lumbar region (08/11/22) Cervicalgia (08/11/22) Physical Therapy Treatment Note PT-OP-A Visit Information Start: 07/11/22 14:19 Freq: Status: Active Protocol: Document 08/11/22 12:00 DCW (Rec: 08/11/22 12:44 DCW [id number]) Out-Patient Physical Therapy Visit Information Visit Information Visit Type Treatment Note Visit Start Time 12:00 Visit Stop Time 12:45 Total Visit Minutes 45 Visit Number 8 Number of MAITRE D Visits 0 Evaluation Information Evaluation Date 07/11/22 PT-OP-B Current Condition Start: 07/11/22 14:19 Freq: Status: Active Protocol: Document 07/11/22 11:15 DCW (Rec: 07/11/22 17:44 DCW [id number]) Current Condition History of Current Condition Onset Date Long-standing history Current Complaints Dizziness, cervical pain, thoracic pain, lumbar pain History of Current Condition Pt is a 57 year old male very well known to this clinic presenting with a multitude of complaints and ailments. Pt was recently seen at this facility following ankle surgery ~1 year ago, after which he had a sudden onset of new autoimmune disease, which left him hospitalized for one month, greatly setting back his recovery for his ankle. Due to poor gait, repeatedly twisting his ankle, and multiple falls, pt began to have significant pain in his mid- and low-back, as well as his right hip. Additionally, pt has been complaining of ongoing dizziness for the past six months, typically with various head turns, lasting multiple minutes to half an hour. Pt has had multiple surgeries in the past, including, but not limited to, ankle surgery, cervical fusion (s/p ~10 years), and thoracic outlet syndrome surgery. Treatment Goals Patient/Caregiver Goals Improve mobility by decreasing back pain PT-OP-C Subjective Start: 07/11/22 14:19 Freq: Status: Active Protocol: Document 08/11/22 12:00 DCW (Rec: 08/11/22 12:44 DCW [id number]) OP-PT Subjective Patient Comments Patient Comments [place] really good after last time, at least until this morning. Admits he has been struggling with sleep due to L neck pain. PT-OP-F Manual Assessment Start: 07/11/22 14:19 Freq: Status: Active Protocol: Document 07/11/22 11:15 DCW (Rec: 07/11/22 17:44 DCW [id number]) Manual Assessments Soft Tissue Assessment Soft Tissue Mobility Assessment Severe tone with tenderness to palpation 3/4: Wincing and withdraw along bilateral cervical, thoracic, and lumbar paraspinals, upper trap, levator scap, SCM, and QL, L>R . Joint Mobility Assessment Joint Mobility Assessment Hypomobility along entire spine, limited cervical mobility limits vestibular testing, specifically positional testing (Hallpike/ Roll) PT-OP-K Range of Motion Start: 07/11/22 14:19 Freq: Status: Active Protocol: Document 07/11/22 11:15 DCW (Rec: 07/11/22 17:44 DCW [id number]) Cervical Spine Range of Motion Cervical Spine Active Degrees Testing Position Sitting Flexion 40 Extension 25 Rotation Left 26 Rotation Right 51 Lateral Flexion Left 18 Lateral Flexion Right 15 ROM Limitations Soft Tissue Tightness, Contracture,Bony Restriction, Muscle Tone,Pain Lumbar Spine Range of Motion Lumbar Spine Active Degrees Testing Position Standing Flexion 30 Extension 5 ROM Limitations Soft Tissue Tightness, Contracture,Bony Restriction, Muscle Tone,Pain PT-OP-L Special Tests Start: 07/11/22 14:19 Freq: Status: Active Protocol: Document 07/11/22 11:15 DCW (Rec: 07/11/22 17:44 DCW [id number]) Special Tests Cervical Spine Special Tests Slump Test Results Positive L Traction Test Results Mild pain relief Spurling's Test Test Results Positive L Comments Pain and dizziness Passive Neck Flexion Test Results Negative Foraminal Compression Test Results Positive L Alar Ligament Test Results Negative PT-OP-O Vestibular Start: 07/11/22 14:19 Freq: Status: Active Protocol: Document 07/11/22 11:15 DCW (Rec: 07/11/22 14:23 DCW [id number]) Vestibular Assessment Screening Tests Vestibular Artery Screen Negative Sharp-Selena Test Negative Visual Testing Smooth Pursuits Horizontal WNL Smooth Pursuits Vertical WNL Saccades Horizontal WNL Saccades Vertical WNL Heave Test Positive Right Thrust Head Positive Right Positional Testing Talala-Hallpike Negative Left,Negative Right Rolling Test Negative Left,Negative Right Comments Vestibular Comments Pt reports vertigo/dizziness in all positions, worse with left-side dependent, but zero signs of nystagmus. Pt also has poor cervical extension and rotation, limiting proper positioning PT-OP-Q Treatments Start: 07/11/22 14:19 Freq: Status: Active Protocol: Document 08/11/22 12:00 DC (Rec: 08/11/22 12:44 [facility] [id number]) Manual Therapy Treatment Soft Tissue Mobilization Lumbar Paraspinals Body Location QL, Paraspinals Mobilization Type Sustained Pressure,Trigger Point Release Intensity/Depth Moderate Body Position Prone Cervical Paraspinals Body Location UT, Paraspinals, Scalenes, Levator Mobilization Type Sustained Pressure,Trigger Point Release Intensity/Depth Moderate Body Position Supine Joint Mobilizations Lumbar Joint L1-5 Direction P->A Grade III Body Position Prone PT-OP-T Assessment and Plan Start: 07/11/22 14:19 Freq: Status: Active Protocol: Document 08/11/22 12:00 DCW (Rec: 08/11/22 12:44 [facility] [id number]) Physical Therapy Assessment Impairments Impairments Balance,Functional Activities, Functional Mobility,Gait, Integument,Pain,Posture,ROM, Soft Tissue Mobility,Strength, Tone,Vestibular Goals Three Impairment Pt experiences dizziness with positional changes In Store Marketing Representative Goal (LTG) Pt to report no episodes of dizziness while lying in bed for one full week to improve sleep pattern LTG Duration 10/09/22 Two Impairment Left cervical rotation limited to 26? In Store Marketing Representative Goal (LTG) Pt to increase left cervical rotation by at least 19? to 45 ? in order to improve ability to turn head to look for traffic while driving. LTG Duration 10/09/22 One Impairment Pt does not have an appropriate home exercise program Short Term Goal (STG) Pt to be independent and compliant with an appropriate HEP STG Duration 08/22/22 Assessment Summary Assessment Left cervical paraspinals and levator today showing significant increase in tone, extra time spent with STM in this area. Otherwise, pt low back showing good improvement. Physical Therapy Plan Frequency and Duration Frequency of Treatment 2x/Week Plan of Care Start Date 07/11/22 Plan of Care End Date 10/09/22 Therapeutic Interventions Therapeutic Interventions Aquatic Therapy,Balance Training,Gait Training,Home Exercise Program,Joint Mobilizations,Manual Therapy, Neuromuscular Re-education, Patient/Caregiver Education, Self-Care/Home Management,Soft Tissue Mobilization, Therapeutic Activities, Therapeutic Exercises, Vestibular Rehabilitation Modalities Cold Pack/Ice Massage,Electric Stimulation,Hot Packs, Ultrasound Next Visit Focus/Plan Next Note Type Treatment Note Next Visit Plan Cervical and lumbar STM/ stretching, core strengthening
--- NOTE | 2022-08-16 11:19 | PT.OTN ---
Current Diagnoses Benign paroxysmal vertigo, unspecified ear (08/16/22) Stiffness of other specified joint, not elsewhere classified (08/16/22) Spinal stenosis, lumbar region with neurogenic claudication (08/16/22) Intervertebral disc disorders with myelopathy, thoracic region (08/16/22) Other intervertebral disc displacement, lumbar region (08/16/22) Other intervertebral disc degeneration, lumbar region (08/16/22) Cervicalgia (08/16/22) Physical Therapy Treatment Note PT-OP-A Visit Information Start: 07/11/22 14:19 Freq: Status: Active Protocol: Document 08/16/22 10:30 DCW (Rec: 08/16/22 11:19 DCW [id number]) Out-Patient Physical Therapy Visit Information Visit Information Visit Type Treatment Note Visit Start Time 10:30 Visit Stop Time 11:15 Total Visit Minutes 45 Visit Number 9 Number of HELP DESK CONSULTANT Visits 0 Evaluation Information Evaluation Date 07/11/22 PT-OP-B Current Condition Start: 07/11/22 14:19 Freq: Status: Active Protocol: Document 07/11/22 11:15 DCW (Rec: 07/11/22 17:44 DCW [id number]) Current Condition History of Current Condition Onset Date Long-standing history Current Complaints Dizziness, cervical pain, thoracic pain, lumbar pain History of Current Condition Pt is a 57 year old male very well known to this clinic presenting with a multitude of complaints and ailments. Pt was recently seen at this facility following ankle surgery ~1 year ago, after which he had a sudden onset of new autoimmune disease, which left him hospitalized for one month, greatly setting back his recovery for his ankle. Due to poor gait, repeatedly twisting his ankle, and multiple falls, pt began to have significant pain in his mid- and low-back, as well as his right hip. Additionally, pt has been complaining of ongoing dizziness for the past six months, typically with various head turns, lasting multiple minutes to half an hour. Pt has had multiple surgeries in the past, including, but not limited to, ankle surgery, cervical fusion (s/p ~10 years), and thoracic outlet syndrome surgery. Treatment Goals Patient/Caregiver Goals Improve mobility by decreasing back pain PT-OP-C Subjective Start: 07/11/22 14:19 Freq: Status: Active Protocol: Document 08/16/22 10:30 DCW (Rec: 08/16/22 11:19 DCW [id number]) OP-PT Subjective Patient Comments Patient Comments Pt reports both Sunday and Sunday he suffered falls, both times, once from catching his foot on obstacles, and the other [place]. PT-OP-F Manual Assessment Start: 07/11/22 14:19 Freq: Status: Active Protocol: Document 07/11/22 11:15 DCW (Rec: 07/11/22 17:44 DCW [id number]) Manual Assessments Soft Tissue Assessment Soft Tissue Mobility Assessment Severe tone with tenderness to palpation 3/4: Wincing and withdraw along bilateral cervical, thoracic, and lumbar paraspinals, upper trap, levator scap, SCM, and QL, L>R . Joint Mobility Assessment Joint Mobility Assessment Hypomobility along entire spine, limited cervical mobility limits vestibular testing, specifically positional testing (Hallpike/ Roll) PT-OP-K Range of Motion Start: 07/11/22 14:19 Freq: Status: Active Protocol: Document 07/11/22 11:15 DCW (Rec: 07/11/22 17:44 DCW [id number]) Cervical Spine Range of Motion Cervical Spine Active Degrees Testing Position Sitting Flexion 40 Extension 25 Rotation Left 26 Rotation Right 51 Lateral Flexion Left 18 Lateral Flexion Right 15 ROM Limitations Soft Tissue Tightness, Contracture,Bony Restriction, Muscle Tone,Pain Lumbar Spine Range of Motion Lumbar Spine Active Degrees Testing Position Standing Flexion 30 Extension 5 ROM Limitations Soft Tissue Tightness, Contracture,Bony Restriction, Muscle Tone,Pain PT-OP-L Special Tests Start: 07/11/22 14:19 Freq: Status: Active Protocol: Document 07/11/22 11:15 DCW (Rec: 07/11/22 17:44 DCW [id number]) Special Tests Cervical Spine Special Tests Slump Test Results Positive L Traction Test Results Mild pain relief Spurling's Test Test Results Positive L Comments Pain and dizziness Passive Neck Flexion Test Results Negative Foraminal Compression Test Results Positive L Alar Ligament Test Results Negative PT-OP-O Vestibular Start: 07/11/22 14:19 Freq: Status: Active Protocol: Document 07/11/22 11:15 DCW (Rec: 07/11/22 14:23 DCW [id number]) Vestibular Assessment Screening Tests Vestibular Artery Screen Negative Sharp-Selena Test Negative Visual Testing Smooth Pursuits Horizontal WNL Smooth Pursuits Vertical WNL Saccades Horizontal WNL Saccades Vertical WNL Heave Test Positive Right Thrust Head Positive Right Positional Testing Samantha-Hallpike Negative Left,Negative Right Rolling Test Negative Left,Negative Right Comments Vestibular Comments Pt reports vertigo/dizziness in all positions, worse with left-side dependent, but zero signs of nystagmus. Pt also has poor cervical extension and rotation, limiting proper positioning PT-OP-Q Treatments Start: 07/11/22 14:19 Freq: Status: Active Protocol: Document 08/16/22 10:30 DCW (Rec: 08/16/22 11:19 DCW [id number]) Manual Therapy Treatment Soft Tissue Mobilization Lumbar Paraspinals Body Location QL, Paraspinals Mobilization Type Sustained Pressure,Trigger Point Release Intensity/Depth Moderate Body Position Prone Cervical Paraspinals Body Location UT, Paraspinals, Scalenes, Levator Mobilization Type Sustained Pressure,Trigger Point Release Intensity/Depth Moderate Body Position Supine Joint Mobilizations Lumbar Joint L1-5 Direction P->A Grade III Body Position Prone PT-OP-T Assessment and Plan Start: 07/11/22 14:19 Freq: Status: Active Protocol: Document 08/16/22 10:30 DCW (Rec: 08/16/22 11:19 DCW [id number]) Physical Therapy Assessment Impairments Impairments Balance,Functional Activities, Functional Mobility,Gait, Integument,Pain,Posture,ROM, Soft Tissue Mobility,Strength, Tone,Vestibular Goals Three Impairment Pt experiences dizziness with positional changes Associate Teacher Goal (LTG) Pt to report no episodes of dizziness while lying in bed for one full week to improve sleep pattern LTG Duration 10/09/22 Two Impairment Left cervical rotation limited to 26? [facility] Goal (LTG) Pt to increase left cervical rotation by at least 19? to 45 ? in order to improve ability to turn head to look for traffic while driving. LTG Duration 10/09/22 One Impairment Pt does not have an appropriate home exercise program Short Term Goal (STG) Pt to be independent and compliant with an appropriate HEP STG Duration 08/22/22 Assessment Summary Assessment Pt low back much more tender today with increased tone after weekend falls, tolerated treatment well, had increased difficulty with bed mobility today. Physical Therapy Plan Frequency and Duration Frequency of Treatment 2x/Week Plan of Care Start Date 07/11/22 Plan of Care End Date 10/09/22 Therapeutic Interventions Therapeutic Interventions Aquatic Therapy,Balance Training,Gait Training,Home Exercise Program,Joint Mobilizations,Manual Therapy, Neuromuscular Re-education, Patient/Caregiver Education, Self-Care/Home Management,Soft Tissue Mobilization, Therapeutic Activities, Therapeutic Exercises, Vestibular Rehabilitation Modalities Cold Pack/Ice Massage,Electric Stimulation,Hot Packs, Ultrasound Next Visit Focus/Plan Next Note Type Treatment Note Next Visit Plan Cervical and lumbar STM/ stretching, core strengthening
--- NOTE | 2022-08-17 12:41 | PT.OTN ---
Current Diagnoses Benign paroxysmal vertigo, unspecified ear (08/17/22) Stiffness of other specified joint, not elsewhere classified (08/17/22) Spinal stenosis, lumbar region with neurogenic claudication (08/17/22) Intervertebral disc disorders with myelopathy, thoracic region (08/17/22) Other intervertebral disc displacement, lumbar region (08/17/22) Other intervertebral disc degeneration, lumbar region (08/17/22) Cervicalgia (08/17/22) Physical Therapy Treatment Note PT-OP-A Visit Information Start: 07/11/22 14:19 Freq: Status: Active Protocol: Document 08/17/22 12:00 DCW (Rec: 08/17/22 12:41 DCW [id number]) Out-Patient Physical Therapy Visit Information Visit Information Visit Type Treatment Note Visit Start Time 12:00 Visit Stop Time 12:45 Total Visit Minutes 45 Visit Number 10 Number of CAMP COORDINATOR Visits 0 Evaluation Information Evaluation Date 07/11/22 PT-OP-B Current Condition Start: 07/11/22 14:19 Freq: Status: Active Protocol: Document 07/11/22 11:15 DCW (Rec: 07/11/22 17:44 DCW [id number]) Current Condition History of Current Condition Onset Date Long-standing history Current Complaints Dizziness, cervical pain, thoracic pain, lumbar pain History of Current Condition Pt is a 57 year old male very well known to this clinic presenting with a multitude of complaints and ailments. Pt was recently seen at this facility following ankle surgery ~1 year ago, after which he had a sudden onset of new autoimmune disease, which left him hospitalized for one month, greatly setting back his recovery for his ankle. Due to poor gait, repeatedly twisting his ankle, and multiple falls, pt began to have significant pain in his mid- and low-back, as well as his right hip. Additionally, pt has been complaining of ongoing dizziness for the past six months, typically with various head turns, lasting multiple minutes to half an hour. Pt has had multiple surgeries in the past, including, but not limited to, ankle surgery, cervical fusion (s/p ~10 years), and thoracic outlet syndrome surgery. Treatment Goals Patient/Caregiver Goals Improve mobility by decreasing back pain PT-OP-C Subjective Start: 07/11/22 14:19 Freq: Status: Active Protocol: Document 08/17/22 12:00 DCW (Rec: 08/17/22 12:41 DCW [id number]) OP-PT Subjective Patient Comments Patient Comments Sore, but better. Pt notes he was able to sleep better last night. PT-OP-F Manual Assessment Start: 07/11/22 14:19 Freq: Status: Active Protocol: Document 07/11/22 11:15 DCW (Rec: 07/11/22 17:44 DCW [id number]) Manual Assessments Soft Tissue Assessment Soft Tissue Mobility Assessment Severe tone with tenderness to palpation 3/4: Wincing and withdraw along bilateral cervical, thoracic, and lumbar paraspinals, upper trap, levator scap, SCM, and QL, L>R . Joint Mobility Assessment Joint Mobility Assessment Hypomobility along entire spine, limited cervical mobility limits vestibular testing, specifically positional testing (Hallpike/ Roll) PT-OP-K Range of Motion Start: 07/11/22 14:19 Freq: Status: Active Protocol: Document 07/11/22 11:15 DCW (Rec: 07/11/22 17:44 DCW [id number]) Cervical Spine Range of Motion Cervical Spine Active Degrees Testing Position Sitting Flexion 40 Extension 25 Rotation Left 26 Rotation Right 51 Lateral Flexion Left 18 Lateral Flexion Right 15 ROM Limitations Soft Tissue Tightness, Contracture,Bony Restriction, Muscle Tone,Pain Lumbar Spine Range of Motion Lumbar Spine Active Degrees Testing Position Standing Flexion 30 Extension 5 ROM Limitations Soft Tissue Tightness, Contracture,Bony Restriction, Muscle Tone,Pain PT-OP-L Special Tests Start: 07/11/22 14:19 Freq: Status: Active Protocol: Document 07/11/22 11:15 DCW (Rec: 07/11/22 17:44 DCW [id number]) Special Tests Cervical Spine Special Tests Slump Test Results Positive L Traction Test Results Mild pain relief Spurling's Test Test Results Positive L Comments Pain and dizziness Passive Neck Flexion Test Results Negative Foraminal Compression Test Results Positive L Alar Ligament Test Results Negative PT-OP-O Vestibular Start: 07/11/22 14:19 Freq: Status: Active Protocol: Document 07/11/22 11:15 DCW (Rec: 07/11/22 14:23 DCW [id number]) Vestibular Assessment Screening Tests Vestibular Artery Screen Negative Sharp-Selena Test Negative Visual Testing Smooth Pursuits Horizontal WNL Smooth Pursuits Vertical WNL Saccades Horizontal WNL Saccades Vertical WNL Heave Test Positive Right Thrust Head Positive Right Positional Testing Samantha-Hallpike Negative Left,Negative Right Rolling Test Negative Left,Negative Right Comments Vestibular Comments Pt reports vertigo/dizziness in all positions, worse with left-side dependent, but zero signs of nystagmus. Pt also has poor cervical extension and rotation, limiting proper positioning PT-OP-Q Treatments Start: 07/11/22 14:19 Freq: Status: Active Protocol: Document 08/17/22 12:00 DCW (Rec: 08/17/22 12:41 [facility] [id number]) Manual Therapy Treatment Soft Tissue Mobilization Lumbar Paraspinals Body Location QL, Paraspinals Mobilization Type Sustained Pressure,Trigger Point Release Intensity/Depth Moderate Body Position Prone Cervical Paraspinals Body Location UT, Paraspinals, Scalenes, Levator Mobilization Type Sustained Pressure,Trigger Point Release Intensity/Depth Moderate Body Position Supine Joint Mobilizations Lumbar Joint L1-5 Direction P->A Grade III Body Position Prone PT-OP-T Assessment and Plan Start: 07/11/22 14:19 Freq: Status: Active Protocol: Document 08/17/22 12:00 DCW (Rec: 08/17/22 12:41 [facility] [id number]) Physical Therapy Assessment Impairments Impairments Balance,Functional Activities, Functional Mobility,Gait, Integument,Pain,Posture,ROM, Soft Tissue Mobility,Strength, Tone,Vestibular Goals Three Impairment Pt experiences dizziness with positional changes Booking Prizer Goal (LTG) Pt to report no episodes of dizziness while lying in bed for one full week to improve sleep pattern LTG Duration 10/09/22 Two Impairment Left cervical rotation limited to 26? Senior Care Goal (LTG) Pt to increase left cervical rotation by at least 19? to 45 ? in order to improve ability to turn head to look for traffic while driving. LTG Duration 10/09/22 One Impairment Pt does not have an appropriate home exercise program Short Term Goal (STG) Pt to be independent and compliant with an appropriate HEP STG Duration 08/22/22 Assessment Summary Assessment Improved overall mobility and tone today, tolerated treatment very well. Physical Therapy Plan Frequency and Duration Frequency of Treatment 2x/Week Plan of Care Start Date 07/11/22 Plan of Care End Date 10/09/22 Therapeutic Interventions Therapeutic Interventions Aquatic Therapy,Balance Training,Gait Training,Home Exercise Program,Joint Mobilizations,Manual Therapy, Neuromuscular Re-education, Patient/Caregiver Education, Self-Care/Home Management,Soft Tissue Mobilization, Therapeutic Activities, Therapeutic Exercises, Vestibular Rehabilitation Modalities Cold Pack/Ice Massage,Electric Stimulation,Hot Packs, Ultrasound Next Visit Focus/Plan Next Note Type Treatment Note Next Visit Plan Cervical and lumbar STM/ stretching, core strengthening
--- NOTE | 2022-08-22 12:49 | PT.OTN ---
Current Diagnoses Benign paroxysmal vertigo, unspecified ear (08/22/22) Stiffness of other specified joint, not elsewhere classified (08/22/22) Spinal stenosis, lumbar region with neurogenic claudication (08/22/22) Intervertebral disc disorders with myelopathy, thoracic region (08/22/22) Other intervertebral disc displacement, lumbar region (08/22/22) Other intervertebral disc degeneration, lumbar region (08/22/22) Cervicalgia (08/22/22) Physical Therapy Treatment Note PT-OP-A Visit Information Start: 07/11/22 14:19 Freq: Status: Active Protocol: Document 08/22/22 12:00 DCW (Rec: 08/22/22 12:49 DCW [id number]) Out-Patient Physical Therapy Visit Information Visit Information Visit Type Treatment Note Visit Start Time 12:00 Visit Stop Time 12:45 Total Visit Minutes 45 Visit Number 11 Number of MOBILE TESTER Visits 0 Evaluation Information Evaluation Date 07/11/22 PT-OP-B Current Condition Start: 07/11/22 14:19 Freq: Status: Active Protocol: Document 07/11/22 11:15 DCW (Rec: 07/11/22 17:44 DCW [id number]) Current Condition History of Current Condition Onset Date Long-standing history Current Complaints Dizziness, cervical pain, thoracic pain, lumbar pain History of Current Condition Pt is a 57 year old male very well known to this clinic presenting with a multitude of complaints and ailments. Pt was recently seen at this facility following ankle surgery ~1 year ago, after which he had a sudden onset of new autoimmune disease, which left him hospitalized for one month, greatly setting back his recovery for his ankle. Due to poor gait, repeatedly twisting his ankle, and multiple falls, pt began to have significant pain in his mid- and low-back, as well as his right hip. Additionally, pt has been complaining of ongoing dizziness for the past six months, typically with various head turns, lasting multiple minutes to half an hour. Pt has had multiple surgeries in the past, including, but not limited to, ankle surgery, cervical fusion (s/p ~10 years), and thoracic outlet syndrome surgery. Treatment Goals Patient/Caregiver Goals Improve mobility by decreasing back pain PT-OP-C Subjective Start: 07/11/22 14:19 Freq: Status: Active Protocol: Document 08/22/22 12:00 DCW (Rec: 08/22/22 12:49 DCW [id number]) OP-PT Subjective Patient Comments Patient Comments I'm really feeling better, but I'm sore at the same time. PT-OP-F Manual Assessment Start: 07/11/22 14:19 Freq: Status: Active Protocol: Document 07/11/22 11:15 DCW (Rec: 07/11/22 17:44 DCW [id number]) Manual Assessments Soft Tissue Assessment Soft Tissue Mobility Assessment Severe tone with tenderness to palpation 3/4: Wincing and withdraw along bilateral cervical, thoracic, and lumbar paraspinals, upper trap, levator scap, SCM, and QL, L>R . Joint Mobility Assessment Joint Mobility Assessment Hypomobility along entire spine, limited cervical mobility limits vestibular testing, specifically positional testing (Hallpike/ Roll) PT-OP-K Range of Motion Start: 07/11/22 14:19 Freq: Status: Active Protocol: Document 07/11/22 11:15 DCW (Rec: 07/11/22 17:44 DCW [id number]) Cervical Spine Range of Motion Cervical Spine Active Degrees Testing Position Sitting Flexion 40 Extension 25 Rotation Left 26 Rotation Right 51 Lateral Flexion Left 18 Lateral Flexion Right 15 ROM Limitations Soft Tissue Tightness, Contracture,Bony Restriction, Muscle Tone,Pain Lumbar Spine Range of Motion Lumbar Spine Active Degrees Testing Position Standing Flexion 30 Extension 5 ROM Limitations Soft Tissue Tightness, Contracture,Bony Restriction, Muscle Tone,Pain PT-OP-L Special Tests Start: 07/11/22 14:19 Freq: Status: Active Protocol: Document 07/11/22 11:15 DCW (Rec: 07/11/22 17:44 DCW [id number]) Special Tests Cervical Spine Special Tests Slump Test Results Positive L Traction Test Results Mild pain relief Spurling's Test Test Results Positive L Comments Pain and dizziness Passive Neck Flexion Test Results Negative Foraminal Compression Test Results Positive L Alar Ligament Test Results Negative PT-OP-O Vestibular Start: 07/11/22 14:19 Freq: Status: Active Protocol: Document 07/11/22 11:15 DCW (Rec: 07/11/22 14:23 DCW [id number]) Vestibular Assessment Screening Tests Vestibular Artery Screen Negative Sharp-Selena Test Negative Visual Testing Smooth Pursuits Horizontal WNL Smooth Pursuits Vertical WNL Saccades Horizontal WNL Saccades Vertical WNL Heave Test Positive Right Thrust Head Positive Right Positional Testing Samantha-Hallpike Negative Left,Negative Right Rolling Test Negative Left,Negative Right Comments Vestibular Comments Pt reports vertigo/dizziness in all positions, worse with left-side dependent, but zero signs of nystagmus. Pt also has poor cervical extension and rotation, limiting proper positioning PT-OP-Q Treatments Start: 07/11/22 14:19 Freq: Status: Active Protocol: Document 08/22/22 12:00 DCW (Rec: 08/22/22 12:49 [facility] [id number]) Manual Therapy Treatment Soft Tissue Mobilization Lumbar Paraspinals Body Location QL, Paraspinals Mobilization Type Sustained Pressure,Trigger Point Release Intensity/Depth Moderate Body Position Prone Cervical Paraspinals Body Location UT, Paraspinals, Scalenes, Levator Mobilization Type Sustained Pressure,Trigger Point Release Intensity/Depth Moderate Body Position Supine Joint Mobilizations Lumbar Joint L1-5 Direction P->A Grade III Body Position Prone PT-OP-T Assessment and Plan Start: 07/11/22 14:19 Freq: Status: Active Protocol: Document 08/22/22 12:00 DCW (Rec: 08/22/22 12:49 [facility] [id number]) Physical Therapy Assessment Impairments Impairments Balance,Functional Activities, Functional Mobility,Gait, Integument,Pain,Posture,ROM, Soft Tissue Mobility,Strength, Tone,Vestibular Goals Three Impairment Pt experiences dizziness with positional changes Residential Goal (LTG) Pt to report no episodes of dizziness while lying in bed for one full week to improve sleep pattern LTG Duration 10/09/22 Two Impairment Left cervical rotation limited to 26? Residential Goal (LTG) Pt to increase left cervical rotation by at least 19? to 45 ? in order to improve ability to turn head to look for traffic while driving. LTG Duration 10/09/22 One Impairment Pt does not have an appropriate home exercise program Short Term Goal (STG) Pt to be independent and compliant with an appropriate HEP STG Duration 08/22/22 Assessment Summary Assessment Pt ambulating better today following manual therapy, additionally, improved cervical rotation. Physical Therapy Plan Frequency and Duration Frequency of Treatment 2x/Week Plan of Care Start Date 07/11/22 Plan of Care End Date 10/09/22 Therapeutic Interventions Therapeutic Interventions Aquatic Therapy,Balance Training,Gait Training,Home Exercise Program,Joint Mobilizations,Manual Therapy, Neuromuscular Re-education, Patient/Caregiver Education, Self-Care/Home Management,Soft Tissue Mobilization, Therapeutic Activities, Therapeutic Exercises, Vestibular Rehabilitation Modalities Cold Pack/Ice Massage,Electric Stimulation,Hot Packs, Ultrasound Next Visit Focus/Plan Next Note Type Treatment Note Next Visit Plan Cervical and lumbar STM/ stretching, core strengthening
--- NOTE | 2022-08-25 12:43 | PT.OTN ---
Current Diagnoses Benign paroxysmal vertigo, unspecified ear (08/25/22) Stiffness of other specified joint, not elsewhere classified (08/25/22) Spinal stenosis, lumbar region with neurogenic claudication (08/25/22) Intervertebral disc disorders with myelopathy, thoracic region (08/25/22) Other intervertebral disc displacement, lumbar region (08/25/22) Other intervertebral disc degeneration, lumbar region (08/25/22) Cervicalgia (08/25/22) Physical Therapy Treatment Note PT-OP-A Visit Information Start: 07/11/22 14:19 Freq: Status: Active Protocol: Document 08/25/22 12:00 DCW (Rec: 08/25/22 12:43 DCW [id number]) Out-Patient Physical Therapy Visit Information Visit Information Visit Type Treatment Note Visit Start Time 12:00 Visit Stop Time 12:45 Total Visit Minutes 45 Visit Number 12 Number of BATHHOUSE ATTENDANT Visits 0 Evaluation Information Evaluation Date 07/11/22 PT-OP-B Current Condition Start: 07/11/22 14:19 Freq: Status: Active Protocol: Document 07/11/22 11:15 DCW (Rec: 07/11/22 17:44 DCW [id number]) Current Condition History of Current Condition Onset Date Long-standing history Current Complaints Dizziness, cervical pain, thoracic pain, lumbar pain History of Current Condition Pt is a 57 year old male very well known to this clinic presenting with a multitude of complaints and ailments. Pt was recently seen at this facility following ankle surgery ~1 year ago, after which he had a sudden onset of new autoimmune disease, which left him hospitalized for one month, greatly setting back his recovery for his ankle. Due to poor gait, repeatedly twisting his ankle, and multiple falls, pt began to have significant pain in his mid- and low-back, as well as his right hip. Additionally, pt has been complaining of ongoing dizziness for the past six months, typically with various head turns, lasting multiple minutes to half an hour. Pt has had multiple surgeries in the past, including, but not limited to, ankle surgery, cervical fusion (s/p ~10 years), and thoracic outlet syndrome surgery. Treatment Goals Patient/Caregiver Goals Improve mobility by decreasing back pain PT-OP-C Subjective Start: 07/11/22 14:19 Freq: Status: Active Protocol: Document 08/25/22 12:00 DCW (Rec: 08/25/22 12:43 DCW [id number]) OP-PT Subjective Patient Comments Patient Comments I'm just feeling like we're doing a two steps forward, one step back kind of thing. PT-OP-F Manual Assessment Start: 07/11/22 14:19 Freq: Status: Active Protocol: Document 07/11/22 11:15 DCW (Rec: 07/11/22 17:44 DCW [id number]) Manual Assessments Soft Tissue Assessment Soft Tissue Mobility Assessment Severe tone with tenderness to palpation 3/4: Wincing and withdraw along bilateral cervical, thoracic, and lumbar paraspinals, upper trap, levator scap, SCM, and QL, L>R . Joint Mobility Assessment Joint Mobility Assessment Hypomobility along entire spine, limited cervical mobility limits vestibular testing, specifically positional testing (Hallpike/ Roll) PT-OP-K Range of Motion Start: 07/11/22 14:19 Freq: Status: Active Protocol: Document 07/11/22 11:15 DCW (Rec: 07/11/22 17:44 DCW [id number]) Cervical Spine Range of Motion Cervical Spine Active Degrees Testing Position Sitting Flexion 40 Extension 25 Rotation Left 26 Rotation Right 51 Lateral Flexion Left 18 Lateral Flexion Right 15 ROM Limitations Soft Tissue Tightness, Contracture,Bony Restriction, Muscle Tone,Pain Lumbar Spine Range of Motion Lumbar Spine Active Degrees Testing Position Standing Flexion 30 Extension 5 ROM Limitations Soft Tissue Tightness, Contracture,Bony Restriction, Muscle Tone,Pain PT-OP-L Special Tests Start: 07/11/22 14:19 Freq: Status: Active Protocol: Document 07/11/22 11:15 DCW (Rec: 07/11/22 17:44 DCW [id number]) Special Tests Cervical Spine Special Tests Slump Test Results Positive L Traction Test Results Mild pain relief Spurling's Test Test Results Positive L Comments Pain and dizziness Passive Neck Flexion Test Results Negative Foraminal Compression Test Results Positive L Alar Ligament Test Results Negative PT-OP-O Vestibular Start: 07/11/22 14:19 Freq: Status: Active Protocol: Document 07/11/22 11:15 DCW (Rec: 07/11/22 14:23 DCW [id number]) Vestibular Assessment Screening Tests Vestibular Artery Screen Negative Sharp-Selena Test Negative Visual Testing Smooth Pursuits Horizontal WNL Smooth Pursuits Vertical WNL Saccades Horizontal WNL Saccades Vertical WNL Heave Test Positive Right Thrust Head Positive Right Positional Testing [place]-Hallpike Negative Left,Negative Right Rolling Test Negative Left,Negative Right Comments Vestibular Comments Pt reports vertigo/dizziness in all positions, worse with left-side dependent, but zero signs of nystagmus. Pt also has poor cervical extension and rotation, limiting proper positioning PT-OP-Q Treatments Start: 07/11/22 14:19 Freq: Status: Active Protocol: Document 08/25/22 12:00 DCW (Rec: 08/25/22 12:43 [facility] [id number]) Manual Therapy Treatment Soft Tissue Mobilization Lumbar Paraspinals Body Location QL, Paraspinals Mobilization Type Sustained Pressure,Trigger Point Release Intensity/Depth Moderate Body Position Prone Cervical Paraspinals Body Location UT, Paraspinals, Scalenes, Levator Mobilization Type Sustained Pressure,Trigger Point Release Intensity/Depth Moderate Body Position Supine Joint Mobilizations Lumbar Joint L1-5 Direction P->A Grade III Body Position Prone PT-OP-T Assessment and Plan Start: 07/11/22 14:19 Freq: Status: Active Protocol: Document 08/25/22 12:00 DCW (Rec: 08/25/22 12:43 [facility] [id number]) Physical Therapy Assessment Impairments Impairments Balance,Functional Activities, Functional Mobility,Gait, Integument,Pain,Posture,ROM, Soft Tissue Mobility,Strength, Tone,Vestibular Goals Three Impairment Pt experiences dizziness with positional changes Mcfp Goal (LTG) Pt to report no episodes of dizziness while lying in bed for one full week to improve sleep pattern LTG Duration 10/09/22 Two Impairment Left cervical rotation limited to 26? Attorney General Goal (LTG) Pt to increase left cervical rotation by at least 19? to 45 ? in order to improve ability to turn head to look for traffic while driving. LTG Duration 10/09/22 One Impairment Pt does not have an appropriate home exercise program Short Term Goal (STG) Pt to be independent and compliant with an appropriate HEP STG Duration 08/22/22 Assessment Summary Assessment Pt noted substantial improvement in cervical pain and mobility following treatment today, not noticing any pain with rotation. Physical Therapy Plan Frequency and Duration Frequency of Treatment 2x/Week Plan of Care Start Date 07/11/22 Plan of Care End Date 10/09/22 Therapeutic Interventions Therapeutic Interventions Aquatic Therapy,Balance Training,Gait Training,Home Exercise Program,Joint Mobilizations,Manual Therapy, Neuromuscular Re-education, Patient/Caregiver Education, Self-Care/Home Management,Soft Tissue Mobilization, Therapeutic Activities, Therapeutic Exercises, Vestibular Rehabilitation Modalities Cold Pack/Ice Massage,Electric Stimulation,Hot Packs, Ultrasound Next Visit Focus/Plan Next Note Type Treatment Note Next Visit Plan Cervical and lumbar STM/ stretching, core strengthening
--- NOTE | 2022-08-30 12:43 | PT.OTN ---
Current Diagnoses Benign paroxysmal vertigo, unspecified ear (08/30/22) Stiffness of other specified joint, not elsewhere classified (08/30/22) Spinal stenosis, lumbar region with neurogenic claudication (08/30/22) Intervertebral disc disorders with myelopathy, thoracic region (08/30/22) Other intervertebral disc displacement, lumbar region (08/30/22) Other intervertebral disc degeneration, lumbar region (08/30/22) Cervicalgia (08/30/22) Physical Therapy Treatment Note PT-OP-A Visit Information Start: 07/11/22 14:19 Freq: Status: Active Protocol: Document 08/30/22 12:05 DCW (Rec: 08/30/22 12:42 DCW [id number]) Out-Patient Physical Therapy Visit Information Visit Information Visit Type Treatment Note Visit Start Time 12:05 Visit Stop Time 12:45 Total Visit Minutes 45 Visit Number 13 Number of RN SCHOOL Visits 0 Evaluation Information Evaluation Date 07/11/22 PT-OP-B Current Condition Start: 07/11/22 14:19 Freq: Status: Active Protocol: Document 07/11/22 11:15 DCW (Rec: 07/11/22 17:44 DCW [id number]) Current Condition History of Current Condition Onset Date Long-standing history Current Complaints Dizziness, cervical pain, thoracic pain, lumbar pain History of Current Condition Pt is a 57 year old male very well known to this clinic presenting with a multitude of complaints and ailments. Pt was recently seen at this facility following ankle surgery ~1 year ago, after which he had a sudden onset of new autoimmune disease, which left him hospitalized for one month, greatly setting back his recovery for his ankle. Due to poor gait, repeatedly twisting his ankle, and multiple falls, pt began to have significant pain in his mid- and low-back, as well as his right hip. Additionally, pt has been complaining of ongoing dizziness for the past six months, typically with various head turns, lasting multiple minutes to half an hour. Pt has had multiple surgeries in the past, including, but not limited to, ankle surgery, cervical fusion (s/p ~10 years), and thoracic outlet syndrome surgery. Treatment Goals Patient/Caregiver Goals Improve mobility by decreasing back pain PT-OP-C Subjective Start: 07/11/22 14:19 Freq: Status: Active Protocol: Document 08/30/22 12:05 DCW (Rec: 08/30/22 12:42 DCW [id number]) OP-PT Subjective Patient Comments Patient Comments Actually pretty good today PT-OP-F Manual Assessment Start: 07/11/22 14:19 Freq: Status: Active Protocol: Document 07/11/22 11:15 DCW (Rec: 07/11/22 17:44 DCW [id number]) Manual Assessments Soft Tissue Assessment Soft Tissue Mobility Assessment Severe tone with tenderness to palpation 3/4: Wincing and withdraw along bilateral cervical, thoracic, and lumbar paraspinals, upper trap, levator scap, SCM, and QL, L>R . Joint Mobility Assessment Joint Mobility Assessment Hypomobility along entire spine, limited cervical mobility limits vestibular testing, specifically positional testing (Hallpike/ Roll) PT-OP-K Range of Motion Start: 07/11/22 14:19 Freq: Status: Active Protocol: Document 07/11/22 11:15 DCW (Rec: 07/11/22 17:44 DCW [id number]) Cervical Spine Range of Motion Cervical Spine Active Degrees Testing Position Sitting Flexion 40 Extension 25 Rotation Left 26 Rotation Right 51 Lateral Flexion Left 18 Lateral Flexion Right 15 ROM Limitations Soft Tissue Tightness, Contracture,Bony Restriction, Muscle Tone,Pain Lumbar Spine Range of Motion Lumbar Spine Active Degrees Testing Position Standing Flexion 30 Extension 5 ROM Limitations Soft Tissue Tightness, Contracture,Bony Restriction, Muscle Tone,Pain PT-OP-L Special Tests Start: 07/11/22 14:19 Freq: Status: Active Protocol: Document 07/11/22 11:15 DCW (Rec: 07/11/22 17:44 [facility] [id number]) Special Tests Cervical Spine Special Tests Slump Test Results Positive L Traction Test Results Mild pain relief Spurling's Test Test Results Positive L Comments Pain and dizziness Passive Neck Flexion Test Results Negative Foraminal Compression Test Results Positive L Alar Ligament Test Results Negative PT-OP-O Vestibular Start: 07/11/22 14:19 Freq: Status: Active Protocol: Document 07/11/22 11:15 DCW (Rec: 07/11/22 14:23 DCW [id number]) Vestibular Assessment Screening Tests Vestibular Artery Screen Negative Sharp-Selena Test Negative Visual Testing Smooth Pursuits Horizontal WNL Smooth Pursuits Vertical WNL Saccades Horizontal WNL Saccades Vertical WNL Heave Test Positive Right Thrust Head Positive Right Positional Testing Samantha-Hallpike Negative Left,Negative Right Rolling Test Negative Left,Negative Right Comments Vestibular Comments Pt reports vertigo/dizziness in all positions, worse with left-side dependent, but zero signs of nystagmus. Pt also has poor cervical extension and rotation, limiting proper positioning PT-OP-Q Treatments Start: 07/11/22 14:19 Freq: Status: Active Protocol: Document 08/30/22 12:05 DCW (Rec: 08/30/22 12:42 [facility] [id number]) Manual Therapy Treatment Soft Tissue Mobilization Lumbar Paraspinals Body Location QL, Paraspinals Mobilization Type Sustained Pressure,Trigger Point Release Intensity/Depth Moderate Body Position Prone Cervical Paraspinals Body Location UT, Paraspinals, Scalenes, Levator Mobilization Type Sustained Pressure,Trigger Point Release Intensity/Depth Moderate Body Position Supine Joint Mobilizations Lumbar Joint L1-5 Direction P->A Grade III Body Position Prone PT-OP-T Assessment and Plan Start: 07/11/22 14:19 Freq: Status: Active Protocol: Document 08/30/22 12:05 DCW (Rec: 08/30/22 12:42 DC [id number]) Physical Therapy Assessment Impairments Impairments Balance,Functional Activities, Functional Mobility,Gait, Integument,Pain,Posture,ROM, Soft Tissue Mobility,Strength, Tone,Vestibular Goals Three Impairment Pt experiences dizziness with positional changes Slitter And Rewinder Goal (LTG) Pt to report no episodes of dizziness while lying in bed for one full week to improve sleep pattern LTG Duration 10/09/22 Two Impairment Left cervical rotation limited to 26? Slitter And Rewinder Goal (LTG) Pt to increase left cervical rotation by at least 19? to 45 ? in order to improve ability to turn head to look for traffic while driving. LTG Duration 10/09/22 One Impairment Pt does not have an appropriate home exercise program Short Term Goal (STG) Pt to be independent and compliant with an appropriate HEP STG Duration 08/22/22 Assessment Summary Assessment Pt reporting overall improvement in back and neck pain, noting he is still sore , but not in pain. Improved tenderness to palpation and tone levels. Physical Therapy Plan Frequency and Duration Frequency of Treatment 2x/Week Plan of Care Start Date 07/11/22 Plan of Care End Date 10/09/22 Therapeutic Interventions Therapeutic Interventions Aquatic Therapy,Balance Training,Gait Training,Home Exercise Program,Joint Mobilizations,Manual Therapy, Neuromuscular Re-education, Patient/Caregiver Education, Self-Care/Home Management,Soft Tissue Mobilization, Therapeutic Activities, Therapeutic Exercises, Vestibular Rehabilitation Modalities Cold Pack/Ice Massage,Electric Stimulation,Hot Packs, Ultrasound Next Visit Focus/Plan Next Note Type Treatment Note Next Visit Plan Cervical and lumbar STM/ stretching, core strengthening
--- NOTE | 2022-09-22 15:13 | PT.OTN ---
Current Diagnoses Benign paroxysmal vertigo, unspecified ear (09/22/22) Stiffness of other specified joint, not elsewhere classified (09/22/22) Spinal stenosis, lumbar region with neurogenic claudication (09/22/22) Intervertebral disc disorders with myelopathy, thoracic region (09/22/22) Other intervertebral disc displacement, lumbar region (09/22/22) Other intervertebral disc degeneration, lumbar region (09/22/22) Cervicalgia (09/22/22) Physical Therapy Treatment Note PT-OP-A Visit Information Start: 07/11/22 14:19 Freq: Status: Active Protocol: Document 09/22/22 14:30 DCW (Rec: 09/22/22 15:13 DCW [id number]) Out-Patient Physical Therapy Visit Information Visit Information Visit Type Treatment Note Visit Start Time 14:30 Visit Stop Time 15:15 Total Visit Minutes 45 Visit Number 14 Number of EXTERIOR DOOR INSTALLER Visits 0 Evaluation Information Evaluation Date 07/11/22 PT-OP-B Current Condition Start: 07/11/22 14:19 Freq: Status: Active Protocol: Document 07/11/22 11:15 DCW (Rec: 07/11/22 17:44 DCW [id number]) Current Condition History of Current Condition Onset Date Long-standing history Current Complaints Dizziness, cervical pain, thoracic pain, lumbar pain History of Current Condition Pt is a 57 year old male very well known to this clinic presenting with a multitude of complaints and ailments. Pt was recently seen at this facility following ankle surgery ~1 year ago, after which he had a sudden onset of new autoimmune disease, which left him hospitalized for one month, greatly setting back his recovery for his ankle. Due to poor gait, repeatedly twisting his ankle, and multiple falls, pt began to have significant pain in his mid- and low-back, as well as his right hip. Additionally, pt has been complaining of ongoing dizziness for the past six months, typically with various head turns, lasting multiple minutes to half an hour. Pt has had multiple surgeries in the past, including, but not limited to, ankle surgery, cervical fusion (s/p ~10 years), and thoracic outlet syndrome surgery. Treatment Goals Patient/Caregiver Goals Improve mobility by decreasing back pain PT-OP-C Subjective Start: 07/11/22 14:19 Freq: Status: Active Protocol: Document 09/22/22 14:30 DCW (Rec: 09/22/22 15:13 DCW [id number]) OP-PT Subjective Patient Comments Patient Comments I may not be walking well, but I'm actually standing up straight. Does admit that his dizziness returned just this morning, and that his neck is killing me. PT-OP-F Manual Assessment Start: 07/11/22 14:19 Freq: Status: Active Protocol: Document 07/11/22 11:15 DCW (Rec: 07/11/22 17:44 DCW [id number]) Manual Assessments Soft Tissue Assessment Soft Tissue Mobility Assessment Severe tone with tenderness to palpation 3/4: Wincing and withdraw along bilateral cervical, thoracic, and lumbar paraspinals, upper trap, levator scap, SCM, and QL, L>R . Joint Mobility Assessment Joint Mobility Assessment Hypomobility along entire spine, limited cervical mobility limits vestibular testing, specifically positional testing (Hallpike/ Roll) PT-OP-K Range of Motion Start: 07/11/22 14:19 Freq: Status: Active Protocol: Document 07/11/22 11:15 DCW (Rec: 07/11/22 17:44 DCW [id number]) Cervical Spine Range of Motion Cervical Spine Active Degrees Testing Position Sitting Flexion 40 Extension 25 Rotation Left 26 Rotation Right 51 Lateral Flexion Left 18 Lateral Flexion Right 15 ROM Limitations Soft Tissue Tightness, Contracture,Bony Restriction, Muscle Tone,Pain Lumbar Spine Range of Motion Lumbar Spine Active Degrees Testing Position Standing Flexion 30 Extension 5 ROM Limitations Soft Tissue Tightness, Contracture,Bony Restriction, Muscle Tone,Pain PT-OP-L Special Tests Start: 07/11/22 14:19 Freq: Status: Active Protocol: Document 07/11/22 11:15 DCW (Rec: 07/11/22 17:44 DCW [id number]) Special Tests Cervical Spine Special Tests Slump Test Results Positive L Traction Test Results Mild pain relief Spurling's Test Test Results Positive L Comments Pain and dizziness Passive Neck Flexion Test Results Negative Foraminal Compression Test Results Positive L Alar Ligament Test Results Negative PT-OP-O Vestibular Start: 07/11/22 14:19 Freq: Status: Active Protocol: Document 07/11/22 11:15 DCW (Rec: 07/11/22 14:23 DCW [id number]) Vestibular Assessment Screening Tests Vestibular Artery Screen Negative Sharp-Selena Test Negative Visual Testing Smooth Pursuits Horizontal WNL Smooth Pursuits Vertical WNL Saccades Horizontal WNL Saccades Vertical WNL Heave Test Positive Right Thrust Head Positive Right Positional Testing Samantha-Hallpike Negative Left,Negative Right Rolling Test Negative Left,Negative Right Comments Vestibular Comments Pt reports vertigo/dizziness in all positions, worse with left-side dependent, but zero signs of nystagmus. Pt also has poor cervical extension and rotation, limiting proper positioning PT-OP-Q Treatments Start: 07/11/22 14:19 Freq: Status: Active Protocol: Document 09/22/22 14:30 DCW (Rec: 09/22/22 15:13 DCW [id number]) Manual Therapy Treatment Soft Tissue Mobilization Lumbar Paraspinals Body Location QL, Paraspinals Mobilization Type Sustained Pressure,Trigger Point Release Intensity/Depth Moderate Body Position Prone Cervical Paraspinals Body Location UT, Paraspinals, Scalenes, Levator Mobilization Type Sustained Pressure,Trigger Point Release Intensity/Depth Moderate Body Position Supine Joint Mobilizations Lumbar Joint L1-5 Direction P->A Grade III Body Position Prone PT-OP-T Assessment and Plan Start: 07/11/22 14:19 Freq: Status: Active Protocol: Document 09/22/22 14:30 DCW (Rec: 09/22/22 15:13 DCW [id number]) Physical Therapy Assessment Impairments Impairments Balance,Functional Activities, Functional Mobility,Gait, Integument,Pain,Posture,ROM, Soft Tissue Mobility,Strength, Tone,Vestibular Goals Three Impairment Pt experiences dizziness with positional changes Neurosurgery Physician Goal (LTG) Pt to report no episodes of dizziness while lying in bed for one full week to improve sleep pattern LTG Duration 10/09/22 Two Impairment Left cervical rotation limited to 26? Mcc Goal (LTG) Pt to increase left cervical rotation by at least 19? to 45 ? in order to improve ability to turn head to look for traffic while driving. LTG Duration 10/09/22 One Impairment Pt does not have an appropriate home exercise program Short Term Goal (STG) Pt to be independent and compliant with an appropriate HEP STG Duration 08/22/22 Assessment Summary Assessment Significant improvement by end of session regarding pt's complaints of dizziness and neck pain, pt doing well with HEP/stretching since he had an extended period of time between appointments due to scheduling difficulties. Physical Therapy Plan Frequency and Duration Frequency of Treatment 2x/Week Plan of Care Start Date 07/11/22 Plan of Care End Date 10/09/22 Therapeutic Interventions Therapeutic Interventions Aquatic Therapy,Balance Training,Gait Training,Home Exercise Program,Joint Mobilizations,Manual Therapy, Neuromuscular Re-education, Patient/Caregiver Education, Self-Care/Home Management,Soft Tissue Mobilization, Therapeutic Activities, Therapeutic Exercises, Vestibular Rehabilitation Modalities Cold Pack/Ice Massage,Electric Stimulation,Hot Packs, Ultrasound Next Visit Focus/Plan Next Note Type Treatment Note Next Visit Plan Cervical and lumbar STM/ stretching, core strengthening
--- NOTE | 2022-09-26 15:59 | PT.OTN ---
Current Diagnoses Benign paroxysmal vertigo, unspecified ear (09/26/22) Stiffness of other specified joint, not elsewhere classified (09/26/22) Spinal stenosis, lumbar region with neurogenic claudication (09/26/22) Intervertebral disc disorders with myelopathy, thoracic region (09/26/22) Other intervertebral disc displacement, lumbar region (09/26/22) Other intervertebral disc degeneration, lumbar region (09/26/22) Cervicalgia (09/26/22) Physical Therapy Treatment Note PT-OP-A Visit Information Start: 07/11/22 14:19 Freq: Status: Active Protocol: Document 09/26/22 15:15 DCW (Rec: 09/26/22 15:59 DCW [id number]) Out-Patient Physical Therapy Visit Information Visit Information Visit Type Treatment Note Visit Start Time 15:15 Visit Stop Time 16:00 Total Visit Minutes 45 Visit Number 15 Number of AIRCRAFT MECHANIC ARMAMENT Visits 0 Evaluation Information Evaluation Date 07/11/22 PT-OP-B Current Condition Start: 07/11/22 14:19 Freq: Status: Active Protocol: Document 07/11/22 11:15 DCW (Rec: 07/11/22 17:44 DCW [id number]) Current Condition History of Current Condition Onset Date Long-standing history Current Complaints Dizziness, cervical pain, thoracic pain, lumbar pain History of Current Condition Pt is a 57 year old male very well known to this clinic presenting with a multitude of complaints and ailments. Pt was recently seen at this facility following ankle surgery ~1 year ago, after which he had a sudden onset of new autoimmune disease, which left him hospitalized for one month, greatly setting back his recovery for his ankle. Due to poor gait, repeatedly twisting his ankle, and multiple falls, pt began to have significant pain in his mid- and low-back, as well as his right hip. Additionally, pt has been complaining of ongoing dizziness for the past six months, typically with various head turns, lasting multiple minutes to half an hour. Pt has had multiple surgeries in the past, including, but not limited to, ankle surgery, cervical fusion (s/p ~10 years), and thoracic outlet syndrome surgery. Treatment Goals Patient/Caregiver Goals Improve mobility by decreasing back pain PT-OP-C Subjective Start: 07/11/22 14:19 Freq: Status: Active Protocol: Document 09/26/22 15:15 DCW (Rec: 09/26/22 15:59 DCW [id number]) OP-PT Subjective Patient Comments Patient Comments Pt is mostly pretty good at the moment. PT-OP-F Manual Assessment Start: 07/11/22 14:19 Freq: Status: Active Protocol: Document 07/11/22 11:15 DCW (Rec: 07/11/22 17:44 DCW [id number]) Manual Assessments Soft Tissue Assessment Soft Tissue Mobility Assessment Severe tone with tenderness to palpation 3/4: Wincing and withdraw along bilateral cervical, thoracic, and lumbar paraspinals, upper trap, levator scap, SCM, and QL, L>R . Joint Mobility Assessment Joint Mobility Assessment Hypomobility along entire spine, limited cervical mobility limits vestibular testing, specifically positional testing (Hallpike/ Roll) PT-OP-K Range of Motion Start: 07/11/22 14:19 Freq: Status: Active Protocol: Document 07/11/22 11:15 DCW (Rec: 07/11/22 17:44 DCW [id number]) Cervical Spine Range of Motion Cervical Spine Active Degrees Testing Position Sitting Flexion 40 Extension 25 Rotation Left 26 Rotation Right 51 Lateral Flexion Left 18 Lateral Flexion Right 15 ROM Limitations Soft Tissue Tightness, Contracture,Bony Restriction, Muscle Tone,Pain Lumbar Spine Range of Motion Lumbar Spine Active Degrees Testing Position Standing Flexion 30 Extension 5 ROM Limitations Soft Tissue Tightness, Contracture,Bony Restriction, Muscle Tone,Pain PT-OP-L Special Tests Start: 07/11/22 14:19 Freq: Status: Active Protocol: Document 07/11/22 11:15 DCW (Rec: 07/11/22 17:44 DCW [id number]) Special Tests Cervical Spine Special Tests Slump Test Results Positive L Traction Test Results Mild pain relief Spurling's Test Test Results Positive L Comments Pain and dizziness Passive Neck Flexion Test Results Negative Foraminal Compression Test Results Positive L Alar Ligament Test Results Negative PT-OP-O Vestibular Start: 07/11/22 14:19 Freq: Status: Active Protocol: Document 07/11/22 11:15 DCW (Rec: 07/11/22 14:23 DCW [id number]) Vestibular Assessment Screening Tests Vestibular Artery Screen Negative Sharp-Selena Test Negative Visual Testing Smooth Pursuits Horizontal WNL Smooth Pursuits Vertical WNL Saccades Horizontal WNL Saccades Vertical WNL Heave Test Positive Right Thrust Head Positive Right Positional Testing Liberty-Hallpike Negative Left,Negative Right Rolling Test Negative Left,Negative Right Comments Vestibular Comments Pt reports vertigo/dizziness in all positions, worse with left-side dependent, but zero signs of nystagmus. Pt also has poor cervical extension and rotation, limiting proper positioning PT-OP-Q Treatments Start: 07/11/22 14:19 Freq: Status: Active Protocol: Document 09/26/22 15:15 DCW (Rec: 09/26/22 15:59 DCW [id number]) Manual Therapy Treatment Soft Tissue Mobilization Lumbar Paraspinals Body Location QL, Paraspinals Mobilization Type Sustained Pressure,Trigger Point Release Intensity/Depth Moderate Body Position Prone Cervical Paraspinals Body Location UT, Paraspinals, Scalenes, Levator Mobilization Type Sustained Pressure,Trigger Point Release Intensity/Depth Moderate Body Position Supine Joint Mobilizations Lumbar Joint L1-5 Direction P->A Grade III Body Position Prone PT-OP-T Assessment and Plan Start: 07/11/22 14:19 Freq: Status: Active Protocol: Document 09/26/22 15:15 DCW (Rec: 09/26/22 15:59 DCW [id number]) Physical Therapy Assessment Impairments Impairments Balance,Functional Activities, Functional Mobility,Gait, Integument,Pain,Posture,ROM, Soft Tissue Mobility,Strength, Tone,Vestibular Goals Three Impairment Pt experiences dizziness with positional changes Senior Care Goal (LTG) Pt to report no episodes of dizziness while lying in bed for one full week to improve sleep pattern LTG Duration 10/09/22 Two Impairment Left cervical rotation limited to 26? Data Consultant Goal (LTG) Pt to increase left cervical rotation by at least 19? to 45 ? in order to improve ability to turn head to look for traffic while driving. LTG Duration 10/09/22 One Impairment Pt does not have an appropriate home exercise program Short Term Goal (STG) Pt to be independent and compliant with an appropriate HEP STG Duration 08/22/22 Assessment Summary Assessment Pt showing notable improvement with mobility and ambulation, tolerating STM with minimal discomfort, start to focus more on stretching and strengthening in an effort to take advantage of decreased overall tone. Physical Therapy Plan Frequency and Duration Frequency of Treatment 2x/Week Plan of Care Start Date 07/11/22 Plan of Care End Date 10/09/22 Therapeutic Interventions Therapeutic Interventions Aquatic Therapy,Balance Training,Gait Training,Home Exercise Program,Joint Mobilizations,Manual Therapy, Neuromuscular Re-education, Patient/Caregiver Education, Self-Care/Home Management,Soft Tissue Mobilization, Therapeutic Activities, Therapeutic Exercises, Vestibular Rehabilitation Modalities Cold Pack/Ice Massage,Electric Stimulation,Hot Packs, Ultrasound Next Visit Focus/Plan Next Note Type Treatment Note Next Visit Plan Cervical and lumbar STM/ stretching, core strengthening
--- NOTE | 2022-10-04 11:13 | PT.OTN ---
Current Diagnoses Benign paroxysmal vertigo, unspecified ear (10/04/22) Stiffness of other specified joint, not elsewhere classified (10/04/22) Spinal stenosis, lumbar region with neurogenic claudication (10/04/22) Intervertebral disc disorders with myelopathy, thoracic region (10/04/22) Other intervertebral disc displacement, lumbar region (10/04/22) Other intervertebral disc degeneration, lumbar region (10/04/22) Cervicalgia (10/04/22) Physical Therapy Treatment Note PT-OP-A Visit Information Start: 07/11/22 14:19 Freq: Status: Active Protocol: Document 10/04/22 10:30 DCW (Rec: 10/04/22 11:13 DCW [id number]) Out-Patient Physical Therapy Visit Information Visit Information Visit Type Treatment Note Visit Start Time 10:30 Visit Stop Time 11:15 Total Visit Minutes 45 Visit Number 16 Number of MOTOR VEHICLE LECTURER Visits 0 Evaluation Information Evaluation Date 07/11/22 PT-OP-B Current Condition Start: 07/11/22 14:19 Freq: Status: Active Protocol: Document 07/11/22 11:15 DCW (Rec: 07/11/22 17:44 DCW [id number]) Current Condition History of Current Condition Onset Date Long-standing history Current Complaints Dizziness, cervical pain, thoracic pain, lumbar pain History of Current Condition Pt is a 57 year old male very well known to this clinic presenting with a multitude of complaints and ailments. Pt was recently seen at this facility following ankle surgery ~1 year ago, after which he had a sudden onset of new autoimmune disease, which left him hospitalized for one month, greatly setting back his recovery for his ankle. Due to poor gait, repeatedly twisting his ankle, and multiple falls, pt began to have significant pain in his mid- and low-back, as well as his right hip. Additionally, pt has been complaining of ongoing dizziness for the past six months, typically with various head turns, lasting multiple minutes to half an hour. Pt has had multiple surgeries in the past, including, but not limited to, ankle surgery, cervical fusion (s/p ~10 years), and thoracic outlet syndrome surgery. Treatment Goals Patient/Caregiver Goals Improve mobility by decreasing back pain PT-OP-C Subjective Start: 07/11/22 14:19 Freq: Status: Active Protocol: Document 10/04/22 10:30 DCW (Rec: 10/04/22 11:13 DCW [id number]) OP-PT Subjective Patient Comments Patient Comments We are making good progress. Does note some reduced episodes of dizziness, improved headaches. PT-OP-F Manual Assessment Start: 07/11/22 14:19 Freq: Status: Active Protocol: Document 07/11/22 11:15 DCW (Rec: 07/11/22 17:44 DCW [id number]) Manual Assessments Soft Tissue Assessment Soft Tissue Mobility Assessment Severe tone with tenderness to palpation 3/4: Wincing and withdraw along bilateral cervical, thoracic, and lumbar paraspinals, upper trap, levator scap, SCM, and QL, L>R . Joint Mobility Assessment Joint Mobility Assessment Hypomobility along entire spine, limited cervical mobility limits vestibular testing, specifically positional testing (Hallpike/ Roll) PT-OP-K Range of Motion Start: 07/11/22 14:19 Freq: Status: Active Protocol: Document 07/11/22 11:15 DCW (Rec: 07/11/22 17:44 DCW [id number]) Cervical Spine Range of Motion Cervical Spine Active Degrees Testing Position Sitting Flexion 40 Extension 25 Rotation Left 26 Rotation Right 51 Lateral Flexion Left 18 Lateral Flexion Right 15 ROM Limitations Soft Tissue Tightness, Contracture,Bony Restriction, Muscle Tone,Pain Lumbar Spine Range of Motion Lumbar Spine Active Degrees Testing Position Standing Flexion 30 Extension 5 ROM Limitations Soft Tissue Tightness, Contracture,Bony Restriction, Muscle Tone,Pain PT-OP-L Special Tests Start: 07/11/22 14:19 Freq: Status: Active Protocol: Document 07/11/22 11:15 DCW (Rec: 07/11/22 17:44 DCW [id number]) Special Tests Cervical Spine Special Tests Slump Test Results Positive L Traction Test Results Mild pain relief Spurling's Test Test Results Positive L Comments Pain and dizziness Passive Neck Flexion Test Results Negative Foraminal Compression Test Results Positive L Alar Ligament Test Results Negative PT-OP-O Vestibular Start: 07/11/22 14:19 Freq: Status: Active Protocol: Document 07/11/22 11:15 DCW (Rec: 07/11/22 14:23 DCW [id number]) Vestibular Assessment Screening Tests Vestibular Artery Screen Negative Sharp-Selena Test Negative Visual Testing Smooth Pursuits Horizontal WNL Smooth Pursuits Vertical WNL Saccades Horizontal WNL Saccades Vertical WNL Heave Test Positive Right Thrust Head Positive Right Positional Testing Samantha-Hallpike Negative Left,Negative Right Rolling Test Negative Left,Negative Right Comments Vestibular Comments Pt reports vertigo/dizziness in all positions, worse with left-side dependent, but zero signs of nystagmus. Pt also has poor cervical extension and rotation, limiting proper positioning PT-OP-Q Treatments Start: 07/11/22 14:19 Freq: Status: Active Protocol: Document 10/04/22 10:30 DCW (Rec: 10/04/22 11:13 DCW [id number]) Manual Therapy Treatment Soft Tissue Mobilization Lumbar Paraspinals Body Location QL, Paraspinals Mobilization Type Sustained Pressure,Trigger Point Release Intensity/Depth Moderate Body Position Prone Cervical Paraspinals Body Location UT, Paraspinals, Scalenes, Levator Mobilization Type Sustained Pressure,Trigger Point Release Intensity/Depth Moderate Body Position Supine Joint Mobilizations Lumbar Joint L1-5 Direction P->A Grade III Body Position Prone PT-OP-T Assessment and Plan Start: 07/11/22 14:19 Freq: Status: Active Protocol: Document 10/04/22 10:30 DCW (Rec: 10/04/22 11:13 DCW [id number]) Physical Therapy Assessment Impairments Impairments Balance,Functional Activities, Functional Mobility,Gait, Integument,Pain,Posture,ROM, Soft Tissue Mobility,Strength, Tone,Vestibular Goals Three Impairment Pt experiences dizziness with positional changes Plug Drill Operator Goal (LTG) Pt to report no episodes of dizziness while lying in bed for one full week to improve sleep pattern LTG Duration 10/09/22 Two Impairment Left cervical rotation limited to 26? Plug Drill Operator Goal (LTG) Pt to increase left cervical rotation by at least 19? to 45 ? in order to improve ability to turn head to look for traffic while driving. LTG Duration 10/09/22 One Impairment Pt does not have an appropriate home exercise program Short Term Goal (STG) Pt to be independent and compliant with an appropriate HEP STG Duration 08/22/22 Assessment Summary Assessment Pt notably less sore with all activities, walking without as much difficulty, ankle has been holding up better. Will perform reassessment next visit. Physical Therapy Plan Frequency and Duration Frequency of Treatment 2x/Week Plan of Care Start Date 07/11/22 Plan of Care End Date 10/09/22 Therapeutic Interventions Therapeutic Interventions Aquatic Therapy,Balance Training,Gait Training,Home Exercise Program,Joint Mobilizations,Manual Therapy, Neuromuscular Re-education, Patient/Caregiver Education, Self-Care/Home Management,Soft Tissue Mobilization, Therapeutic Activities, Therapeutic Exercises, Vestibular Rehabilitation Modalities Cold Pack/Ice Massage,Electric Stimulation,Hot Packs, Ultrasound Next Visit Focus/Plan Next Note Type Progress Note Next Visit Plan Cervical and lumbar STM/ stretching, core strengthening
--- NOTE | 2022-10-10 11:57 | PT.OTN ---
Current Diagnoses Benign paroxysmal vertigo, unspecified ear (10/10/22) Stiffness of other specified joint, not elsewhere classified (10/10/22) Spinal stenosis, lumbar region with neurogenic claudication (10/10/22) Intervertebral disc disorders with myelopathy, thoracic region (10/10/22) Other intervertebral disc displacement, lumbar region (10/10/22) Other intervertebral disc degeneration, lumbar region (10/10/22) Cervicalgia (10/10/22) Physical Therapy Treatment Note PT-OP-A Visit Information Start: 07/11/22 14:19 Freq: Status: Active Protocol: Document 10/10/22 11:15 DCW (Rec: 10/10/22 11:57 DCW [id number]) Out-Patient Physical Therapy Visit Information Visit Information Visit Type Treatment Note Visit Start Time 11:15 Visit Stop Time 12:00 Total Visit Minutes 45 Visit Number 17 Number of ASSEMBLY MEMBER Visits 0 Evaluation Information Evaluation Date 07/11/22 PT-OP-B Current Condition Start: 07/11/22 14:19 Freq: Status: Active Protocol: Document 07/11/22 11:15 DCW (Rec: 07/11/22 17:44 DCW [id number]) Current Condition History of Current Condition Onset Date Long-standing history Current Complaints Dizziness, cervical pain, thoracic pain, lumbar pain History of Current Condition Pt is a 57 year old male very well known to this clinic presenting with a multitude of complaints and ailments. Pt was recently seen at this facility following ankle surgery ~1 year ago, after which he had a sudden onset of new autoimmune disease, which left him hospitalized for one month, greatly setting back his recovery for his ankle. Due to poor gait, repeatedly twisting his ankle, and multiple falls, pt began to have significant pain in his mid- and low-back, as well as his right hip. Additionally, pt has been complaining of ongoing dizziness for the past six months, typically with various head turns, lasting multiple minutes to half an hour. Pt has had multiple surgeries in the past, including, but not limited to, ankle surgery, cervical fusion (s/p ~10 years), and thoracic outlet syndrome surgery. Treatment Goals Patient/Caregiver Goals Improve mobility by decreasing back pain PT-OP-C Subjective Start: 07/11/22 14:19 Freq: Status: Active Protocol: Document 10/10/22 11:15 DCW (Rec: 10/10/22 11:57 DCW [id number]) OP-PT Subjective Patient Comments Patient Comments Pt feeling somewhat better overall, at least more so than over the weekend, which pt admits he wasn't at my best. PT-OP-F Manual Assessment Start: 07/11/22 14:19 Freq: Status: Active Protocol: Document 10/10/22 11:15 DCW (Rec: 10/10/22 11:25 DCW [id number]) Manual Assessments Soft Tissue Assessment Soft Tissue Mobility Assessment Moderate tone with tenderness to palpation 2/4: Pain with wincing along bilateral cervical, thoracic, and lumbar paraspinals, upper trap, levator scap, SCM, and QL PT-OP-K Range of Motion Start: 07/11/22 14:19 Freq: Status: Active Protocol: Document 10/10/22 11:15 DCW (Rec: 10/10/22 11:25 DCW [id number]) Cervical Spine Range of Motion Cervical Spine Active Degrees Testing Position Sitting Flexion 44 Extension 30 Rotation Left 38 Rotation Right 52 Lateral Flexion Left 29 Lateral Flexion Right 20 ROM Limitations Soft Tissue Tightness, Contracture,Bony Restriction, Muscle Tone,Pain Lumbar Spine Range of Motion Lumbar Spine Active Degrees Testing Position Standing Flexion 35 Extension 15 ROM Limitations Soft Tissue Tightness, Contracture,Bony Restriction, Muscle Tone,Pain PT-OP-L Special Tests Start: 07/11/22 14:19 Freq: Status: Active Protocol: Document 10/10/22 11:15 DCW (Rec: 10/10/22 11:25 DCW [id number]) Special Tests Cervical Spine Special Tests Slump Test Results Negative Traction Test Results Mild pain relief Spurling's Test Test Results Positive R Passive Neck Flexion Test Results Negative Foraminal Compression Test Results Positive R Alar Ligament Test Results Negative PT-OP-O Vestibular Start: 07/11/22 14:19 Freq: Status: Active Protocol: Document 07/11/22 11:15 DCW (Rec: 07/11/22 14:23 DCW [id number]) Vestibular Assessment Screening Tests Vestibular Artery Screen Negative Sharp-Selena Test Negative Visual Testing Smooth Pursuits Horizontal WNL Smooth Pursuits Vertical WNL Saccades Horizontal WNL Saccades Vertical WNL Heave Test Positive Right Thrust Head Positive Right Positional Testing Samantha-Hallpike Negative Left,Negative Right Rolling Test Negative Left,Negative Right Comments Vestibular Comments Pt reports vertigo/dizziness in all positions, worse with left-side dependent, but zero signs of nystagmus. Pt also has poor cervical extension and rotation, limiting proper positioning PT-OP-Q Treatments Start: 07/11/22 14:19 Freq: Status: Active Protocol: Document 10/10/22 11:15 DCW (Rec: 10/10/22 11:57 DCW [id number]) Manual Therapy Treatment Soft Tissue Mobilization Lumbar Paraspinals Body Location QL, Paraspinals Mobilization Type Sustained Pressure,Trigger Point Release Intensity/Depth Moderate Body Position Prone Cervical Paraspinals Body Location UT, Paraspinals, Scalenes, Levator Mobilization Type Sustained Pressure,Trigger Point Release Intensity/Depth Moderate Body Position Supine Joint Mobilizations Lumbar Joint L1-5 Direction P->A Grade III Body Position Prone PT-OP-T Assessment and Plan Start: 07/11/22 14:19 Freq: Status: Active Protocol: Document 10/10/22 11:15 DCW (Rec: 10/10/22 11:57 DCW [id number]) Physical Therapy Assessment Impairments Impairments Balance,Functional Activities, Functional Mobility,Gait, Integument,Pain,Posture,ROM, Soft Tissue Mobility,Strength, Tone,Vestibular Goals Three Impairment Pt experiences dizziness with positional changes Program Specialist Goal (LTG) Pt to report no episodes of dizziness while lying in bed for one full week to improve sleep pattern LTG Duration Met Two Impairment Left cervical rotation limited to 26? [facility] Goal (LTG) Pt to increase left cervical rotation by at least 19? to 45 ? in order to improve ability to turn head to look for traffic while driving. LTG Duration 01/08/23 - Improving One Impairment Pt does not have an appropriate home exercise program Short Term Goal (STG) Pt to be independent and compliant with an appropriate HEP STG Duration 12/08/22 Assessment Summary Assessment Pt showing good improvement with both cervical and lumbar ROM, able to tolerate improved functional mobility and has been showing good improvement with ambulation. Additionally, pt has not been experiencing any vertigo with positional changes after working to improve tone throughout cervical spine. Continued therapy focusing on tone control, ROM, and core/back strengthening will likely be beneficial to improve pt participation in normal daily activities. Physical Therapy Plan Frequency and Duration Frequency of Treatment 2x/Week Plan of Care Start Date 10/10/22 Plan of Care End Date 01/08/23 Therapeutic Interventions Therapeutic Interventions Aquatic Therapy,Balance Training,Gait Training,Home Exercise Program,Joint Mobilizations,Manual Therapy, Neuromuscular Re-education, Patient/Caregiver Education, Self-Care/Home Management,Soft Tissue Mobilization, Therapeutic Activities, Therapeutic Exercises, Vestibular Rehabilitation Modalities Cold Pack/Ice Massage,Electric Stimulation,Hot Packs, Ultrasound Next Visit Focus/Plan Next Note Type Treatment Note Next Visit Plan Cervical and lumbar STM/ stretching, core strengthening
--- NOTE | 2022-10-10 11:58 | PT.OPPOC ---
Physical, Occupational & Speech Therapy At [facility] Current Diagnoses Benign paroxysmal vertigo, unspecified ear (10/10/22) Stiffness of other specified joint, not elsewhere classified (10/10/22) Spinal stenosis, lumbar region with neurogenic claudication (10/10/22) Intervertebral disc disorders with myelopathy, thoracic region (10/10/22) Other intervertebral disc displacement, lumbar region (10/10/22) Other intervertebral disc degeneration, lumbar region (10/10/22) Cervicalgia (10/10/22) Visit Care Team Role Provider Type Jhon Taylor MD Attending Provider Physician Family Provider Primary Care Provider Referring Provider Specialty: Internal Medicine Address: [address] [place] [address], [facility] Email: [email or web address] Plan Of Care PT-OP-T Assessment and Plan Start: 07/11/22 14:19 Freq: Status: Active Protocol: Document 10/10/22 11:15 DCW (Rec: 10/10/22 11:57 DCW [id number]) Physical Therapy Assessment Impairments Impairments Balance,Functional Activities, Functional Mobility,Gait, Integument,Pain,Posture,ROM, Soft Tissue Mobility,Strength, Tone,Vestibular Goals Three Impairment Pt experiences dizziness with positional changes Correction Goal (LTG) Pt to report no episodes of dizziness while lying in bed for one full week to improve sleep pattern LTG Duration Met Two Impairment Left cervical rotation limited to 26? Spray Blender Goal (LTG) Pt to increase left cervical rotation by at least 19? to 45 ? in order to improve ability to turn head to look for traffic while driving. LTG Duration 01/08/23 - Improving One Impairment Pt does not have an appropriate home exercise program Short Term Goal (STG) Pt to be independent and compliant with an appropriate HEP STG Duration 12/08/22 Assessment Summary Assessment Pt showing good improvement with both cervical and lumbar ROM, able to tolerate improved functional mobility and has been showing good improvement with ambulation. Additionally, pt has not been experiencing any vertigo with positional changes after working to improve tone throughout cervical spine. Continued therapy focusing on tone control, ROM, and core/back strengthening will likely be beneficial to improve pt participation in normal daily activities. Physical Therapy Plan Frequency and Duration Frequency of Treatment 2x/Week Plan of Care Start Date 10/10/22 Plan of Care End Date 01/08/23 Therapeutic Interventions Therapeutic Interventions Aquatic Therapy,Balance Training,Gait Training,Home Exercise Program,Joint Mobilizations,Manual Therapy, Neuromuscular Re-education, Patient/Caregiver Education, Self-Care/Home Management,Soft Tissue Mobilization, Therapeutic Activities, Therapeutic Exercises, Vestibular Rehabilitation Modalities Cold Pack/Ice Massage,Electric Stimulation,Hot Packs, Ultrasound Next Visit Focus/Plan Next Note Type Treatment Note Next Visit Plan Cervical and lumbar STM/ stretching, core strengthening Plan of Care Dates Plan of Care Start Date 10/10/22 Plan of Care End Date 01/08/23 Electronically Signed by: Tong Card, PT 10/10/22 [id number] If you are in agreement with this Plan of Care, please return a signed and dated copy. I have reviewed this Plan of Care and certify that the skilled therapy services above are required to meet the patient?s needs. Physician Signature Date Printed Name and Credentials Clinical Instructor Signature Printed Name and Credentials
--- NOTE | 2022-10-17 11:56 | PT.OTN ---
Current Diagnoses Benign paroxysmal vertigo, unspecified ear (10/17/22) Stiffness of other specified joint, not elsewhere classified (10/17/22) Spinal stenosis, lumbar region with neurogenic claudication (10/17/22) Intervertebral disc disorders with myelopathy, thoracic region (10/17/22) Other intervertebral disc displacement, lumbar region (10/17/22) Other intervertebral disc degeneration, lumbar region (10/17/22) Cervicalgia (10/17/22) Physical Therapy Treatment Note PT-OP-A Visit Information Start: 07/11/22 14:19 Freq: Status: Active Protocol: Document 10/17/22 11:15 DCW (Rec: 10/17/22 11:56 DCW [id number]) Out-Patient Physical Therapy Visit Information Visit Information Visit Type Treatment Note Visit Start Time 11:15 Visit Stop Time 12:00 Total Visit Minutes 45 Visit Number 17 Number of PROPERTY MANAGEMENT ACCOUNTANT Visits 0 Evaluation Information Evaluation Date 07/11/22 PT-OP-B Current Condition Start: 07/11/22 14:19 Freq: Status: Active Protocol: Document 07/11/22 11:15 DCW (Rec: 07/11/22 17:44 DCW [id number]) Current Condition History of Current Condition Onset Date Long-standing history Current Complaints Dizziness, cervical pain, thoracic pain, lumbar pain History of Current Condition Pt is a 57 year old male very well known to this clinic presenting with a multitude of complaints and ailments. Pt was recently seen at this facility following ankle surgery ~1 year ago, after which he had a sudden onset of new autoimmune disease, which left him hospitalized for one month, greatly setting back his recovery for his ankle. Due to poor gait, repeatedly twisting his ankle, and multiple falls, pt began to have significant pain in his mid- and low-back, as well as his right hip. Additionally, pt has been complaining of ongoing dizziness for the past six months, typically with various head turns, lasting multiple minutes to half an hour. Pt has had multiple surgeries in the past, including, but not limited to, ankle surgery, cervical fusion (s/p ~10 years), and thoracic outlet syndrome surgery. Treatment Goals Patient/Caregiver Goals Improve mobility by decreasing back pain PT-OP-C Subjective Start: 07/11/22 14:19 Freq: Status: Active Protocol: Document 10/17/22 11:15 DCW (Rec: 10/17/22 11:56 DCW [id number]) OP-PT Subjective Patient Comments Patient Comments The neck is feeling good, the back is feeling a lot better, but I am still waiting on getting a solution for these shoes from [employer]. PT-OP-F Manual Assessment Start: 07/11/22 14:19 Freq: Status: Active Protocol: Document 10/10/22 11:15 DCW (Rec: 10/10/22 11:25 DCW [id number]) Manual Assessments Soft Tissue Assessment Soft Tissue Mobility Assessment Moderate tone with tenderness to palpation 2/4: Pain with wincing along bilateral cervical, thoracic, and lumbar paraspinals, upper trap, levator scap, SCM, and QL PT-OP-K Range of Motion Start: 07/11/22 14:19 Freq: Status: Active Protocol: Document 10/10/22 11:15 DCW (Rec: 10/10/22 11:25 DCW [id number]) Cervical Spine Range of Motion Cervical Spine Active Degrees Testing Position Sitting Flexion 44 Extension 30 Rotation Left 38 Rotation Right 52 Lateral Flexion Left 29 Lateral Flexion Right 20 ROM Limitations Soft Tissue Tightness, Contracture,Bony Restriction, Muscle Tone,Pain Lumbar Spine Range of Motion Lumbar Spine Active Degrees Testing Position Standing Flexion 35 Extension 15 ROM Limitations Soft Tissue Tightness, Contracture,Bony Restriction, Muscle Tone,Pain PT-OP-L Special Tests Start: 07/11/22 14:19 Freq: Status: Active Protocol: Document 10/10/22 11:15 DCW (Rec: 10/10/22 11:25 DCW [id number]) Special Tests Cervical Spine Special Tests Slump Test Results Negative Traction Test Results Mild pain relief Spurling's Test Test Results Positive R Passive Neck Flexion Test Results Negative Foraminal Compression Test Results Positive R Alar Ligament Test Results Negative PT-OP-O Vestibular Start: 07/11/22 14:19 Freq: Status: Active Protocol: Document 07/11/22 11:15 DCW (Rec: 07/11/22 14:23 DCW [id number]) Vestibular Assessment Screening Tests Vestibular Artery Screen Negative Sharp-Selena Test Negative Visual Testing Smooth Pursuits Horizontal WNL Smooth Pursuits Vertical WNL Saccades Horizontal WNL Saccades Vertical WNL Heave Test Positive Right Thrust Head Positive Right Positional Testing [place]-Hallpike Negative Left,Negative Right Rolling Test Negative Left,Negative Right Comments Vestibular Comments Pt reports vertigo/dizziness in all positions, worse with left-side dependent, but zero signs of nystagmus. Pt also has poor cervical extension and rotation, limiting proper positioning PT-OP-Q Treatments Start: 07/11/22 14:19 Freq: Status: Active Protocol: Document 10/17/22 11:15 DCW (Rec: 10/17/22 11:56 DCW [id number]) Manual Therapy Treatment Soft Tissue Mobilization Lumbar Paraspinals Body Location QL, Paraspinals Mobilization Type Sustained Pressure,Trigger Point Release Intensity/Depth Moderate Body Position Prone Cervical Paraspinals Body Location UT, Paraspinals, Scalenes, Levator Mobilization Type Sustained Pressure,Trigger Point Release Intensity/Depth Moderate Body Position Supine Joint Mobilizations Lumbar Joint L1-5 Direction P->A Grade III Body Position Prone PT-OP-T Assessment and Plan Start: 07/11/22 14:19 Freq: Status: Active Protocol: Document 10/17/22 11:15 DCW (Rec: 10/17/22 11:56 DCW [id number]) Physical Therapy Assessment Impairments Impairments Balance,Functional Activities, Functional Mobility,Gait, Integument,Pain,Posture,ROM, Soft Tissue Mobility,Strength, Tone,Vestibular Goals Three Impairment Pt experiences dizziness with positional changes Usp Goal (LTG) Pt to report no episodes of dizziness while lying in bed for one full week to improve sleep pattern LTG Duration Met Two Impairment Left cervical rotation limited to 26? Usp Goal (LTG) Pt to increase left cervical rotation by at least 19? to 45 ? in order to improve ability to turn head to look for traffic while driving. LTG Duration 01/08/23 - Improving One Impairment Pt does not have an appropriate home exercise program Short Term Goal (STG) Pt to be independent and compliant with an appropriate HEP STG Duration 12/08/22 Assessment Summary Assessment Pt tolerated treatment well today, discussed importance of stretching home, potentially gentle yoga classes online Physical Therapy Plan Frequency and Duration Frequency of Treatment 2x/Week Plan of Care Start Date 10/10/22 Plan of Care End Date 01/08/23 Therapeutic Interventions Therapeutic Interventions Aquatic Therapy,Balance Training,Gait Training,Home Exercise Program,Joint Mobilizations,Manual Therapy, Neuromuscular Re-education, Patient/Caregiver Education, Self-Care/Home Management,Soft Tissue Mobilization, Therapeutic Activities, Therapeutic Exercises, Vestibular Rehabilitation Modalities Cold Pack/Ice Massage,Electric Stimulation,Hot Packs, Ultrasound Next Visit Focus/Plan Next Note Type Treatment Note Next Visit Plan Cervical and lumbar STM/ stretching, core strengthening
--- NOTE | 2022-10-20 11:56 | PT.OTN ---
Current Diagnoses Benign paroxysmal vertigo, unspecified ear (10/20/22) Stiffness of other specified joint, not elsewhere classified (10/20/22) Spinal stenosis, lumbar region with neurogenic claudication (10/20/22) Intervertebral disc disorders with myelopathy, thoracic region (10/20/22) Other intervertebral disc displacement, lumbar region (10/20/22) Other intervertebral disc degeneration, lumbar region (10/20/22) Cervicalgia (10/20/22) Physical Therapy Treatment Note PT-OP-A Visit Information Start: 07/11/22 14:19 Freq: Status: Active Protocol: Document 10/20/22 11:15 DCW (Rec: 10/20/22 11:56 DCW [id number]) Out-Patient Physical Therapy Visit Information Visit Information Visit Type Treatment Note Visit Start Time 11:15 Visit Stop Time 12:00 Total Visit Minutes 45 Visit Number 18 Number of MILL REPRESENTATIVE Visits 0 Evaluation Information Evaluation Date 07/11/22 PT-OP-B Current Condition Start: 07/11/22 14:19 Freq: Status: Active Protocol: Document 07/11/22 11:15 DCW (Rec: 07/11/22 17:44 DCW [id number]) Current Condition History of Current Condition Onset Date Long-standing history Current Complaints Dizziness, cervical pain, thoracic pain, lumbar pain History of Current Condition Pt is a 57 year old male very well known to this clinic presenting with a multitude of complaints and ailments. Pt was recently seen at this facility following ankle surgery ~1 year ago, after which he had a sudden onset of new autoimmune disease, which left him hospitalized for one month, greatly setting back his recovery for his ankle. Due to poor gait, repeatedly twisting his ankle, and multiple falls, pt began to have significant pain in his mid- and low-back, as well as his right hip. Additionally, pt has been complaining of ongoing dizziness for the past six months, typically with various head turns, lasting multiple minutes to half an hour. Pt has had multiple surgeries in the past, including, but not limited to, ankle surgery, cervical fusion (s/p ~10 years), and thoracic outlet syndrome surgery. Treatment Goals Patient/Caregiver Goals Improve mobility by decreasing back pain PT-OP-C Subjective Start: 07/11/22 14:19 Freq: Status: Active Protocol: Document 10/20/22 11:15 DCW (Rec: 10/20/22 11:56 DCW [id number]) OP-PT Subjective Patient Comments Patient Comments I was doing well until I got here and got hit with a spasm. PT-OP-F Manual Assessment Start: 07/11/22 14:19 Freq: Status: Active Protocol: Document 10/10/22 11:15 DCW (Rec: 10/10/22 11:25 DCW [id number]) Manual Assessments Soft Tissue Assessment Soft Tissue Mobility Assessment Moderate tone with tenderness to palpation 2/4: Pain with wincing along bilateral cervical, thoracic, and lumbar paraspinals, upper trap, levator scap, SCM, and QL PT-OP-K Range of Motion Start: 07/11/22 14:19 Freq: Status: Active Protocol: Document 10/10/22 11:15 DCW (Rec: 10/10/22 11:25 DCW [id number]) Cervical Spine Range of Motion Cervical Spine Active Degrees Testing Position Sitting Flexion 44 Extension 30 Rotation Left 38 Rotation Right 52 Lateral Flexion Left 29 Lateral Flexion Right 20 ROM Limitations Soft Tissue Tightness, Contracture,Bony Restriction, Muscle Tone,Pain Lumbar Spine Range of Motion Lumbar Spine Active Degrees Testing Position Standing Flexion 35 Extension 15 ROM Limitations Soft Tissue Tightness, Contracture,Bony Restriction, Muscle Tone,Pain PT-OP-L Special Tests Start: 07/11/22 14:19 Freq: Status: Active Protocol: Document 10/10/22 11:15 DCW (Rec: 10/10/22 11:25 DCW [id number]) Special Tests Cervical Spine Special Tests Slump Test Results Negative Traction Test Results Mild pain relief Spurling's Test Test Results Positive R Passive Neck Flexion Test Results Negative Foraminal Compression Test Results Positive R Alar Ligament Test Results Negative PT-OP-O Vestibular Start: 07/11/22 14:19 Freq: Status: Active Protocol: Document 07/11/22 11:15 DCW (Rec: 07/11/22 14:23 DCW [id number]) Vestibular Assessment Screening Tests Vestibular Artery Screen Negative Sharp-Selena Test Negative Visual Testing Smooth Pursuits Horizontal WNL Smooth Pursuits Vertical WNL Saccades Horizontal WNL Saccades Vertical WNL Heave Test Positive Right Thrust Head Positive Right Positional Testing [place]-Hallpike Negative Left,Negative Right Rolling Test Negative Left,Negative Right Comments Vestibular Comments Pt reports vertigo/dizziness in all positions, worse with left-side dependent, but zero signs of nystagmus. Pt also has poor cervical extension and rotation, limiting proper positioning PT-OP-Q Treatments Start: 07/11/22 14:19 Freq: Status: Active Protocol: Document 10/20/22 11:15 DCW (Rec: 10/20/22 11:56 DCW [id number]) Manual Therapy Treatment Soft Tissue Mobilization Lumbar Paraspinals Body Location QL, Paraspinals Mobilization Type Sustained Pressure,Trigger Point Release Intensity/Depth Moderate Body Position Prone Cervical Paraspinals Body Location UT, Paraspinals, Scalenes, Levator Mobilization Type Sustained Pressure,Trigger Point Release Intensity/Depth Moderate Body Position Supine Joint Mobilizations Lumbar Joint L1-5 Direction P->A Grade III Body Position Prone PT-OP-T Assessment and Plan Start: 07/11/22 14:19 Freq: Status: Active Protocol: Document 10/20/22 11:15 DCW (Rec: 10/20/22 11:56 DCW [id number]) Physical Therapy Assessment Impairments Impairments Balance,Functional Activities, Functional Mobility,Gait, Integument,Pain,Posture,ROM, Soft Tissue Mobility,Strength, Tone,Vestibular Goals Three Impairment Pt experiences dizziness with positional changes Handle Lathe Operator Goal (LTG) Pt to report no episodes of dizziness while lying in bed for one full week to improve sleep pattern LTG Duration Met Two Impairment Left cervical rotation limited to 26? Usp Goal (LTG) Pt to increase left cervical rotation by at least 19? to 45 ? in order to improve ability to turn head to look for traffic while driving. LTG Duration 01/08/23 - Improving One Impairment Pt does not have an appropriate home exercise program Short Term Goal (STG) Pt to be independent and compliant with an appropriate HEP STG Duration 12/08/22 Assessment Summary Assessment Pt felt much better following STM today, decreased pain and tone with ongoing self- reported spasm in low back. Physical Therapy Plan Frequency and Duration Frequency of Treatment 2x/Week Plan of Care Start Date 10/10/22 Plan of Care End Date 01/08/23 Therapeutic Interventions Therapeutic Interventions Aquatic Therapy,Balance Training,Gait Training,Home Exercise Program,Joint Mobilizations,Manual Therapy, Neuromuscular Re-education, Patient/Caregiver Education, Self-Care/Home Management,Soft Tissue Mobilization, Therapeutic Activities, Therapeutic Exercises, Vestibular Rehabilitation Modalities Cold Pack/Ice Massage,Electric Stimulation,Hot Packs, Ultrasound Next Visit Focus/Plan Next Note Type Treatment Note Next Visit Plan Cervical and lumbar STM/ stretching, core strengthening
--- NOTE | 2022-11-10 14:25 | PT.OTN ---
Current Diagnoses Benign paroxysmal vertigo, unspecified ear (11/10/22) Stiffness of other specified joint, not elsewhere classified (11/10/22) Spinal stenosis, lumbar region with neurogenic claudication (11/10/22) Intervertebral disc disorders with myelopathy, thoracic region (11/10/22) Other intervertebral disc displacement, lumbar region (11/10/22) Other intervertebral disc degeneration, lumbar region (11/10/22) Cervicalgia (11/10/22) Physical Therapy Treatment Note PT-OP-A Visit Information Start: 07/11/22 14:19 Freq: Status: Active Protocol: Document 11/10/22 13:45 DCW (Rec: 11/10/22 14:24 DCW [id number]) Out-Patient Physical Therapy Visit Information Visit Information Visit Type Treatment Note Visit Start Time 13:45 Visit Stop Time 14:30 Total Visit Minutes 45 Visit Number 19 Number of [employer] NETWORK ARCHITECT Visits 0 Evaluation Information Evaluation Date 07/11/22 PT-OP-B Current Condition Start: 07/11/22 14:19 Freq: Status: Active Protocol: Document 07/11/22 11:15 DCW (Rec: 07/11/22 17:44 DCW [id number]) Current Condition History of Current Condition Onset Date Long-standing history Current Complaints Dizziness, cervical pain, thoracic pain, lumbar pain History of Current Condition Pt is a 57 year old male very well known to this clinic presenting with a multitude of complaints and ailments. Pt was recently seen at this facility following ankle surgery ~1 year ago, after which he had a sudden onset of new autoimmune disease, which left him hospitalized for one month, greatly setting back his recovery for his ankle. Due to poor gait, repeatedly twisting his ankle, and multiple falls, pt began to have significant pain in his mid- and low-back, as well as his right hip. Additionally, pt has been complaining of ongoing dizziness for the past six months, typically with various head turns, lasting multiple minutes to half an hour. Pt has had multiple surgeries in the past, including, but not limited to, ankle surgery, cervical fusion (s/p ~10 years), and thoracic outlet syndrome surgery. Treatment Goals Patient/Caregiver Goals Improve mobility by decreasing back pain PT-OP-C Subjective Start: 07/11/22 14:19 Freq: Status: Active Protocol: Document 11/10/22 13:45 DCW (Rec: 11/10/22 14:24 DCW [id number]) OP-PT Subjective Patient Comments Patient Comments I'm trying to walk better, I' m standing up straighter. PT-OP-F Manual Assessment Start: 07/11/22 14:19 Freq: Status: Active Protocol: Document 10/10/22 11:15 DCW (Rec: 10/10/22 11:25 DCW [id number]) Manual Assessments Soft Tissue Assessment Soft Tissue Mobility Assessment Moderate tone with tenderness to palpation 2/4: Pain with wincing along bilateral cervical, thoracic, and lumbar paraspinals, upper trap, levator scap, SCM, and QL PT-OP-K Range of Motion Start: 07/11/22 14:19 Freq: Status: Active Protocol: Document 10/10/22 11:15 DCW (Rec: 10/10/22 11:25 DCW [id number]) Cervical Spine Range of Motion Cervical Spine Active Degrees Testing Position Sitting Flexion 44 Extension 30 Rotation Left 38 Rotation Right 52 Lateral Flexion Left 29 Lateral Flexion Right 20 ROM Limitations Soft Tissue Tightness, Contracture,Bony Restriction, Muscle Tone,Pain Lumbar Spine Range of Motion Lumbar Spine Active Degrees Testing Position Standing Flexion 35 Extension 15 ROM Limitations Soft Tissue Tightness, Contracture,Bony Restriction, Muscle Tone,Pain PT-OP-L Special Tests Start: 07/11/22 14:19 Freq: Status: Active Protocol: Document 10/10/22 11:15 DCW (Rec: 10/10/22 11:25 DCW [id number]) Special Tests Cervical Spine Special Tests Slump Test Results Negative Traction Test Results Mild pain relief Spurling's Test Test Results Positive R Passive Neck Flexion Test Results Negative Foraminal Compression Test Results Positive R Alar Ligament Test Results Negative PT-OP-O Vestibular Start: 07/11/22 14:19 Freq: Status: Active Protocol: Document 07/11/22 11:15 DCW (Rec: 07/11/22 14:23 DCW [id number]) Vestibular Assessment Screening Tests Vestibular Artery Screen Negative Sharp-Selena Test Negative Visual Testing Smooth Pursuits Horizontal WNL Smooth Pursuits Vertical WNL Saccades Horizontal WNL Saccades Vertical WNL Heave Test Positive Right Thrust Head Positive Right Positional Testing [place]-Hallpike Negative Left,Negative Right Rolling Test Negative Left,Negative Right Comments Vestibular Comments Pt reports vertigo/dizziness in all positions, worse with left-side dependent, but zero signs of nystagmus. Pt also has poor cervical extension and rotation, limiting proper positioning PT-OP-Q Treatments Start: 07/11/22 14:19 Freq: Status: Active Protocol: Document 11/10/22 13:45 DCW (Rec: 11/10/22 14:24 DCW [id number]) Manual Therapy Treatment Soft Tissue Mobilization Lumbar Paraspinals Body Location QL, Paraspinals Mobilization Type Sustained Pressure,Trigger Point Release Intensity/Depth Moderate Body Position Prone Cervical Paraspinals Body Location UT, Paraspinals, Scalenes, Levator Mobilization Type Sustained Pressure,Trigger Point Release Intensity/Depth Moderate Body Position Supine Joint Mobilizations Lumbar Joint L1-5 Direction P->A Grade III Body Position Prone PT-OP-T Assessment and Plan Start: 07/11/22 14:19 Freq: Status: Active Protocol: Document 11/10/22 13:45 DCW (Rec: 11/10/22 14:24 DCW [id number]) Physical Therapy Assessment Impairments Impairments Balance,Functional Activities, Functional Mobility,Gait, Integument,Pain,Posture,ROM, Soft Tissue Mobility,Strength, Tone,Vestibular Goals Three Impairment Pt experiences dizziness with positional changes Skilled Nursing Goal (LTG) Pt to report no episodes of dizziness while lying in bed for one full week to improve sleep pattern LTG Duration Met Two Impairment Left cervical rotation limited to 26? Tank Stave Assembler Goal (LTG) Pt to increase left cervical rotation by at least 19? to 45 ? in order to improve ability to turn head to look for traffic while driving. LTG Duration 01/08/23 - Improving One Impairment Pt does not have an appropriate home exercise program Short Term Goal (STG) Pt to be independent and compliant with an appropriate HEP STG Duration 12/08/22 Assessment Summary Assessment Pt noting improvement in all areas, walking much better. Physical Therapy Plan Frequency and Duration Frequency of Treatment 2x/Week Plan of Care Start Date 10/10/22 Plan of Care End Date 01/08/23 Therapeutic Interventions Therapeutic Interventions Aquatic Therapy,Balance Training,Gait Training,Home Exercise Program,Joint Mobilizations,Manual Therapy, Neuromuscular Re-education, Patient/Caregiver Education, Self-Care/Home Management,Soft Tissue Mobilization, Therapeutic Activities, Therapeutic Exercises, Vestibular Rehabilitation Modalities Cold Pack/Ice Massage,Electric Stimulation,Hot Packs, Ultrasound Next Visit Focus/Plan Next Note Type Treatment Note Next Visit Plan Cervical and lumbar STM/ stretching, core strengthening
--- NOTE | 2022-11-16 12:40 | PT.OTN ---
Current Diagnoses Benign paroxysmal vertigo, unspecified ear (11/16/22) Stiffness of other specified joint, not elsewhere classified (11/16/22) Spinal stenosis, lumbar region with neurogenic claudication (11/16/22) Intervertebral disc disorders with myelopathy, thoracic region (11/16/22) Other intervertebral disc displacement, lumbar region (11/16/22) Other intervertebral disc degeneration, lumbar region (11/16/22) Cervicalgia (11/16/22) Physical Therapy Treatment Note PT-OP-A Visit Information Start: 07/11/22 14:19 Freq: Status: Active Protocol: Document 11/16/22 12:03 DCW (Rec: 11/16/22 12:40 DCW [id number]) Out-Patient Physical Therapy Visit Information Visit Information Visit Type Treatment Note Visit Start Time 12:03 Visit Stop Time 12:45 Total Visit Minutes 42 Visit Number 20 Number of FACILITY WORKER Visits 0 Evaluation Information Evaluation Date 07/11/22 PT-OP-B Current Condition Start: 07/11/22 14:19 Freq: Status: Active Protocol: Document 07/11/22 11:15 DCW (Rec: 07/11/22 17:44 DCW [id number]) Current Condition History of Current Condition Onset Date Long-standing history Current Complaints Dizziness, cervical pain, thoracic pain, lumbar pain History of Current Condition Pt is a 57 year old male very well known to this clinic presenting with a multitude of complaints and ailments. Pt was recently seen at this facility following ankle surgery ~1 year ago, after which he had a sudden onset of new autoimmune disease, which left him hospitalized for one month, greatly setting back his recovery for his ankle. Due to poor gait, repeatedly twisting his ankle, and multiple falls, pt began to have significant pain in his mid- and low-back, as well as his right hip. Additionally, pt has been complaining of ongoing dizziness for the past six months, typically with various head turns, lasting multiple minutes to half an hour. Pt has had multiple surgeries in the past, including, but not limited to, ankle surgery, cervical fusion (s/p ~10 years), and thoracic outlet syndrome surgery. Treatment Goals Patient/Caregiver Goals Improve mobility by decreasing back pain PT-OP-C Subjective Start: 07/11/22 14:19 Freq: Status: Active Protocol: Document 11/16/22 12:03 DCW (Rec: 11/16/22 12:40 DCW [id number]) OP-PT Subjective Patient Comments Patient Comments Pt reports he is walking and standing much better. PT-OP-F Manual Assessment Start: 07/11/22 14:19 Freq: Status: Active Protocol: Document 10/10/22 11:15 DCW (Rec: 10/10/22 11:25 DCW [id number]) Manual Assessments Soft Tissue Assessment Soft Tissue Mobility Assessment Moderate tone with tenderness to palpation 2/4: Pain with wincing along bilateral cervical, thoracic, and lumbar paraspinals, upper trap, levator scap, SCM, and QL PT-OP-K Range of Motion Start: 07/11/22 14:19 Freq: Status: Active Protocol: Document 10/10/22 11:15 DCW (Rec: 10/10/22 11:25 DCW [id number]) Cervical Spine Range of Motion Cervical Spine Active Degrees Testing Position Sitting Flexion 44 Extension 30 Rotation Left 38 Rotation Right 52 Lateral Flexion Left 29 Lateral Flexion Right 20 ROM Limitations Soft Tissue Tightness, Contracture,Bony Restriction, Muscle Tone,Pain Lumbar Spine Range of Motion Lumbar Spine Active Degrees Testing Position Standing Flexion 35 Extension 15 ROM Limitations Soft Tissue Tightness, Contracture,Bony Restriction, Muscle Tone,Pain PT-OP-L Special Tests Start: 07/11/22 14:19 Freq: Status: Active Protocol: Document 10/10/22 11:15 DCW (Rec: 10/10/22 11:25 DCW [id number]) Special Tests Cervical Spine Special Tests Slump Test Results Negative Traction Test Results Mild pain relief Spurling's Test Test Results Positive R Passive Neck Flexion Test Results Negative Foraminal Compression Test Results Positive R Alar Ligament Test Results Negative PT-OP-O Vestibular Start: 07/11/22 14:19 Freq: Status: Active Protocol: Document 07/11/22 11:15 DCW (Rec: 07/11/22 14:23 DCW [id number]) Vestibular Assessment Screening Tests Vestibular Artery Screen Negative Sharp-Selena Test Negative Visual Testing Smooth Pursuits Horizontal WNL Smooth Pursuits Vertical WNL Saccades Horizontal WNL Saccades Vertical WNL Heave Test Positive Right Thrust Head Positive Right Positional Testing [place]-Hallpike Negative Left,Negative Right Rolling Test Negative Left,Negative Right Comments Vestibular Comments Pt reports vertigo/dizziness in all positions, worse with left-side dependent, but zero signs of nystagmus. Pt also has poor cervical extension and rotation, limiting proper positioning PT-OP-Q Treatments Start: 07/11/22 14:19 Freq: Status: Active Protocol: Document 11/16/22 12:03 DCW (Rec: 11/16/22 12:40 DCW [id number]) Manual Therapy Treatment Soft Tissue Mobilization Lumbar Paraspinals Body Location QL, Paraspinals Mobilization Type Sustained Pressure,Trigger Point Release Intensity/Depth Moderate Body Position Prone Cervical Paraspinals Body Location UT, Paraspinals, Scalenes, Levator Mobilization Type Sustained Pressure,Trigger Point Release Intensity/Depth Moderate Body Position Supine Joint Mobilizations Lumbar Joint L1-5 Direction P->A Grade III Body Position Prone PT-OP-T Assessment and Plan Start: 07/11/22 14:19 Freq: Status: Active Protocol: Document 11/16/22 12:03 DCW (Rec: 11/16/22 12:40 DCW [id number]) Physical Therapy Assessment Impairments Impairments Balance,Functional Activities, Functional Mobility,Gait, Integument,Pain,Posture,ROM, Soft Tissue Mobility,Strength, Tone,Vestibular Goals Three Impairment Pt experiences dizziness with positional changes Long-Term Goal (LTG) Pt to report no episodes of dizziness while lying in bed for one full week to improve sleep pattern LTG Duration Met Two Impairment Left cervical rotation limited to 26? Long-Term Goal (LTG) Pt to increase left cervical rotation by at least 19? to 45 ? in order to improve ability to turn head to look for traffic while driving. LTG Duration 01/08/23 - Improving One Impairment Pt does not have an appropriate home exercise program Short Term Goal (STG) Pt to be independent and compliant with an appropriate HEP STG Duration 12/08/22 Assessment Summary Assessment Continues to feel better ambulating, showing improved posture in both standing and sitting. Physical Therapy Plan Frequency and Duration Frequency of Treatment 2x/Week Plan of Care Start Date 10/10/22 Plan of Care End Date 01/08/23 Therapeutic Interventions Therapeutic Interventions Aquatic Therapy,Balance Training,Gait Training,Home Exercise Program,Joint Mobilizations,Manual Therapy, Neuromuscular Re-education, Patient/Caregiver Education, Self-Care/Home Management,Soft Tissue Mobilization, Therapeutic Activities, Therapeutic Exercises, Vestibular Rehabilitation Modalities Cold Pack/Ice Massage,Electric Stimulation,Hot Packs, Ultrasound Next Visit Focus/Plan Next Note Type Treatment Note Next Visit Plan Cervical and lumbar STM/ stretching, core strengthening
--- NOTE | 2022-11-30 12:00 | PT.OTN ---
Current Diagnoses Benign paroxysmal vertigo, unspecified ear (11/30/22) Stiffness of other specified joint, not elsewhere classified (11/30/22) Spinal stenosis, lumbar region with neurogenic claudication (11/30/22) Intervertebral disc disorders with myelopathy, thoracic region (11/30/22) Other intervertebral disc displacement, lumbar region (11/30/22) Other intervertebral disc degeneration, lumbar region (11/30/22) Cervicalgia (11/30/22) Physical Therapy Treatment Note PT-OP-A Visit Information Start: 07/11/22 14:19 Freq: Status: Active Protocol: Document 11/30/22 11:15 DCW (Rec: 11/30/22 12:00 DCW [id number]) Out-Patient Physical Therapy Visit Information Visit Information Visit Type Treatment Note Visit Start Time 11:15 Visit Stop Time 12:00 Total Visit Minutes 45 Visit Number 21 Number of ACCOUNTING OFFICER Visits 0 Evaluation Information Evaluation Date 07/11/22 PT-OP-B Current Condition Start: 07/11/22 14:19 Freq: Status: Active Protocol: Document 07/11/22 11:15 DCW (Rec: 07/11/22 17:44 DCW [id number]) Current Condition History of Current Condition Onset Date Long-standing history Current Complaints Dizziness, cervical pain, thoracic pain, lumbar pain History of Current Condition Pt is a 57 year old male very well known to this clinic presenting with a multitude of complaints and ailments. Pt was recently seen at this facility following ankle surgery ~1 year ago, after which he had a sudden onset of new autoimmune disease, which left him hospitalized for one month, greatly setting back his recovery for his ankle. Due to poor gait, repeatedly twisting his ankle, and multiple falls, pt began to have significant pain in his mid- and low-back, as well as his right hip. Additionally, pt has been complaining of ongoing dizziness for the past six months, typically with various head turns, lasting multiple minutes to half an hour. Pt has had multiple surgeries in the past, including, but not limited to, ankle surgery, cervical fusion (s/p ~10 years), and thoracic outlet syndrome surgery. Treatment Goals Patient/Caregiver Goals Improve mobility by decreasing back pain PT-OP-C Subjective Start: 07/11/22 14:19 Freq: Status: Active Protocol: Document 11/30/22 11:15 DCW (Rec: 11/30/22 12:00 DCW [id number]) OP-PT Subjective Patient Comments Patient Comments After seeing Dr Tai, I feel pretty lousy. He won't do surgery, he's sending me to [facility] for a full spine laminectomy. PT-OP-F Manual Assessment Start: 07/11/22 14:19 Freq: Status: Active Protocol: Document 10/10/22 11:15 DCW (Rec: 10/10/22 11:25 DCW [id number]) Manual Assessments Soft Tissue Assessment Soft Tissue Mobility Assessment Moderate tone with tenderness to palpation 2/4: Pain with wincing along bilateral cervical, thoracic, and lumbar paraspinals, upper trap, levator scap, SCM, and QL PT-OP-K Range of Motion Start: 07/11/22 14:19 Freq: Status: Active Protocol: Document 10/10/22 11:15 DCW (Rec: 10/10/22 11:25 DCW [id number]) Cervical Spine Range of Motion Cervical Spine Active Degrees Testing Position Sitting Flexion 44 Extension 30 Rotation Left 38 Rotation Right 52 Lateral Flexion Left 29 Lateral Flexion Right 20 ROM Limitations Soft Tissue Tightness, Contracture,Bony Restriction, Muscle Tone,Pain Lumbar Spine Range of Motion Lumbar Spine Active Degrees Testing Position Standing Flexion 35 Extension 15 ROM Limitations Soft Tissue Tightness, Contracture,Bony Restriction, Muscle Tone,Pain PT-OP-L Special Tests Start: 07/11/22 14:19 Freq: Status: Active Protocol: Document 10/10/22 11:15 DCW (Rec: 10/10/22 11:25 DCW [id number]) Special Tests Cervical Spine Special Tests Slump Test Results Negative Traction Test Results Mild pain relief Spurling's Test Test Results Positive R Passive Neck Flexion Test Results Negative Foraminal Compression Test Results Positive R Alar Ligament Test Results Negative PT-OP-O Vestibular Start: 07/11/22 14:19 Freq: Status: Active Protocol: Document 07/11/22 11:15 DCW (Rec: 07/11/22 14:23 DCW [id number]) Vestibular Assessment Screening Tests Vestibular Artery Screen Negative Sharp-Selena Test Negative Visual Testing Smooth Pursuits Horizontal WNL Smooth Pursuits Vertical WNL Saccades Horizontal WNL Saccades Vertical WNL Heave Test Positive Right Thrust Head Positive Right Positional Testing [place]-Hallpike Negative Left,Negative Right Rolling Test Negative Left,Negative Right Comments Vestibular Comments Pt reports vertigo/dizziness in all positions, worse with left-side dependent, but zero signs of nystagmus. Pt also has poor cervical extension and rotation, limiting proper positioning PT-OP-Q Treatments Start: 07/11/22 14:19 Freq: Status: Active Protocol: Document 11/30/22 11:15 DCW (Rec: 11/30/22 12:00 DCW [id number]) Manual Therapy Treatment Soft Tissue Mobilization Lumbar Paraspinals Body Location QL, Paraspinals Mobilization Type Sustained Pressure,Trigger Point Release Intensity/Depth Moderate Body Position Prone Cervical Paraspinals Body Location UT, Paraspinals, Scalenes, Levator Mobilization Type Sustained Pressure,Trigger Point Release Intensity/Depth Moderate Body Position Supine Joint Mobilizations Lumbar Joint L1-5 Direction P->A Grade III Body Position Prone PT-OP-T Assessment and Plan Start: 07/11/22 14:19 Freq: Status: Active Protocol: Document 11/30/22 11:15 DCW (Rec: 11/30/22 12:00 DCW [id number]) Physical Therapy Assessment Impairments Impairments Balance,Functional Activities, Functional Mobility,Gait, Integument,Pain,Posture,ROM, Soft Tissue Mobility,Strength, Tone,Vestibular Goals Three Impairment Pt experiences dizziness with positional changes Body Maker Machine Setter Goal (LTG) Pt to report no episodes of dizziness while lying in bed for one full week to improve sleep pattern LTG Duration Met Two Impairment Left cervical rotation limited to 26? Senior Living Goal (LTG) Pt to increase left cervical rotation by at least 19? to 45 ? in order to improve ability to turn head to look for traffic while driving. LTG Duration 01/08/23 - Improving One Impairment Pt does not have an appropriate home exercise program Short Term Goal (STG) Pt to be independent and compliant with an appropriate HEP STG Duration 12/08/22 Assessment Summary Assessment Pt a little discouraged about finding out he will require such extensive surgical intervention with a very long recovery process. However, pt has been showing very good progress since starting skilled PT. Physical Therapy Plan Frequency and Duration Frequency of Treatment 2x/Week Plan of Care Start Date 10/10/22 Plan of Care End Date 01/08/23 Therapeutic Interventions Therapeutic Interventions Aquatic Therapy,Balance Training,Gait Training,Home Exercise Program,Joint Mobilizations,Manual Therapy, Neuromuscular Re-education, Patient/Caregiver Education, Self-Care/Home Management,Soft Tissue Mobilization, Therapeutic Activities, Therapeutic Exercises, Vestibular Rehabilitation Modalities Cold Pack/Ice Massage,Electric Stimulation,Hot Packs, Ultrasound Next Visit Focus/Plan Next Note Type Treatment Note Next Visit Plan Cervical and lumbar STM/ stretching, core strengthening
--- NOTE | 2022-12-28 11:45 | PT.OTN ---
Current Diagnoses Benign paroxysmal vertigo, unspecified ear (12/28/22) Stiffness of other specified joint, not elsewhere classified (12/28/22) Spinal stenosis, lumbar region with neurogenic claudication (12/28/22) Intervertebral disc disorders with myelopathy, thoracic region (12/28/22) Other intervertebral disc displacement, lumbar region (12/28/22) Other intervertebral disc degeneration, lumbar region (12/28/22) Cervicalgia (12/28/22) Physical Therapy Treatment Note PT-OP-A Visit Information Start: 07/11/22 14:19 Freq: Status: Active Protocol: Document 12/28/22 11:04 DCW (Rec: 12/28/22 11:45 DCW [id number]) Out-Patient Physical Therapy Visit Information Visit Information Visit Type Treatment Note Visit Start Time 11:04 Visit Stop Time 11:45 Total Visit Minutes 41 Visit Number 22 Number of BREASTER Visits 0 Evaluation Information Evaluation Date 07/11/22 PT-OP-B Current Condition Start: 07/11/22 14:19 Freq: Status: Active Protocol: Document 07/11/22 11:15 DCW (Rec: 07/11/22 17:44 DCW [id number]) Current Condition History of Current Condition Onset Date Long-standing history Current Complaints Dizziness, cervical pain, thoracic pain, lumbar pain History of Current Condition Pt is a 57 year old male very well known to this clinic presenting with a multitude of complaints and ailments. Pt was recently seen at this facility following ankle surgery ~1 year ago, after which he had a sudden onset of new autoimmune disease, which left him hospitalized for one month, greatly setting back his recovery for his ankle. Due to poor gait, repeatedly twisting his ankle, and multiple falls, pt began to have significant pain in his mid- and low-back, as well as his right hip. Additionally, pt has been complaining of ongoing dizziness for the past six months, typically with various head turns, lasting multiple minutes to half an hour. Pt has had multiple surgeries in the past, including, but not limited to, ankle surgery, cervical fusion (s/p ~10 years), and thoracic outlet syndrome surgery. Treatment Goals Patient/Caregiver Goals Improve mobility by decreasing back pain PT-OP-C Subjective Start: 07/11/22 14:19 Freq: Status: Active Protocol: Document 12/28/22 11:04 DCW (Rec: 12/28/22 11:45 DCW [id number]) OP-PT Subjective Patient Comments Patient Comments Pt comes in today moving very poorly. Reports his low back is very sore today. Unfortunately, per pt, reports Dr Winchester didn't want to perform surgery, and then [place] also declined. Has appointment with now to see if anyone there will do his laminectomy, has an appointment for February. PT-OP-F Manual Assessment Start: 07/11/22 14:19 Freq: Status: Active Protocol: Document 10/10/22 11:15 DCW (Rec: 10/10/22 11:25 DCW [id number]) Manual Assessments Soft Tissue Assessment Soft Tissue Mobility Assessment Moderate tone with tenderness to palpation 2/4: Pain with wincing along bilateral cervical, thoracic, and lumbar paraspinals, upper trap, levator scap, SCM, and QL PT-OP-K Range of Motion Start: 07/11/22 14:19 Freq: Status: Active Protocol: Document 10/10/22 11:15 DCW (Rec: 10/10/22 11:25 DCW [id number]) Cervical Spine Range of Motion Cervical Spine Active Degrees Testing Position Sitting Flexion 44 Extension 30 Rotation Left 38 Rotation Right 52 Lateral Flexion Left 29 Lateral Flexion Right 20 ROM Limitations Soft Tissue Tightness, Contracture,Bony Restriction, Muscle Tone,Pain Lumbar Spine Range of Motion Lumbar Spine Active Degrees Testing Position Standing Flexion 35 Extension 15 ROM Limitations Soft Tissue Tightness, Contracture,Bony Restriction, Muscle Tone,Pain PT-OP-L Special Tests Start: 07/11/22 14:19 Freq: Status: Active Protocol: Document 10/10/22 11:15 DCW (Rec: 10/10/22 11:25 DCW [id number]) Special Tests Cervical Spine Special Tests Slump Test Results Negative Traction Test Results Mild pain relief Spurling's Test Test Results Positive R Passive Neck Flexion Test Results Negative Foraminal Compression Test Results Positive R Alar Ligament Test Results Negative PT-OP-O Vestibular Start: 07/11/22 14:19 Freq: Status: Active Protocol: Document 07/11/22 11:15 DCW (Rec: 07/11/22 14:23 DCW [id number]) Vestibular Assessment Screening Tests Vestibular Artery Screen Negative Sharp-Selena Test Negative Visual Testing Smooth Pursuits Horizontal WNL Smooth Pursuits Vertical WNL Saccades Horizontal WNL Saccades Vertical WNL Heave Test Positive Right Thrust Head Positive Right Positional Testing Samantha-Hallpike Negative Left,Negative Right Rolling Test Negative Left,Negative Right Comments Vestibular Comments Pt reports vertigo/dizziness in all positions, worse with left-side dependent, but zero signs of nystagmus. Pt also has poor cervical extension and rotation, limiting proper positioning PT-OP-Q Treatments Start: 07/11/22 14:19 Freq: Status: Active Protocol: Document 12/28/22 11:04 DCW (Rec: 12/28/22 11:45 [facility] [id number]) Manual Therapy Treatment Soft Tissue Mobilization Lumbar Paraspinals Body Location QL, Paraspinals Mobilization Type Sustained Pressure,Trigger Point Release Intensity/Depth Moderate Body Position Prone Joint Mobilizations Lumbar Joint L1-5 Direction P->A Grade III Body Position Prone PT-OP-T Assessment and Plan Start: 07/11/22 14:19 Freq: Status: Active Protocol: Document 12/28/22 11:04 DCW (Rec: 12/28/22 11:45 [facility] [id number]) Physical Therapy Assessment Impairments Impairments Balance,Functional Activities, Functional Mobility,Gait, Integument,Pain,Posture,ROM, Soft Tissue Mobility,Strength, Tone,Vestibular Goals Three Impairment Pt experiences dizziness with positional changes [employer] Manager Goal (LTG) Pt to report no episodes of dizziness while lying in bed for one full week to improve sleep pattern LTG Duration Met Two Impairment Left cervical rotation limited to 26? [facility] Goal (LTG) Pt to increase left cervical rotation by at least 19? to 45 ? in order to improve ability to turn head to look for traffic while driving. LTG Duration 01/08/23 - Improving One Impairment Pt does not have an appropriate home exercise program Short Term Goal (STG) Pt to be independent and compliant with an appropriate HEP STG Duration 12/08/22 Assessment Summary Assessment Pt felt much better following treatment today, focused mainly on lumbar spine today due to pt barely able to stand upright coming in today. Tolerated treatment well overall. Physical Therapy Plan Frequency and Duration Frequency of Treatment 2x/Week Plan of Care Start Date 10/10/22 Plan of Care End Date 01/08/23 Therapeutic Interventions Therapeutic Interventions Aquatic Therapy,Balance Training,Gait Training,Home Exercise Program,Joint Mobilizations,Manual Therapy, Neuromuscular Re-education, Patient/Caregiver Education, Self-Care/Home Management,Soft Tissue Mobilization, Therapeutic Activities, Therapeutic Exercises, Vestibular Rehabilitation Modalities Cold Pack/Ice Massage,Electric Stimulation,Hot Packs, Ultrasound Next Visit Focus/Plan Next Note Type Progress Note Next Visit Plan Cervical and lumbar STM/ stretching, core strengthening
--- NOTE | 2023-01-04 16:29 | PT.OTN ---
Current Diagnoses Benign paroxysmal vertigo, unspecified ear (01/04/23) Stiffness of other specified joint, not elsewhere classified (01/04/23) Spinal stenosis, lumbar region with neurogenic claudication (01/04/23) Intervertebral disc disorders with myelopathy, thoracic region (01/04/23) Other intervertebral disc displacement, lumbar region (01/04/23) Other intervertebral disc degeneration, lumbar region (01/04/23) Cervicalgia (01/04/23) Physical Therapy Treatment Note PT-OP-A Visit Information Start: 07/11/22 14:19 Freq: Status: Active Protocol: Document 01/04/23 14:00 DCW (Rec: 01/04/23 14:46 DCW [id number]) Out-Patient Physical Therapy Visit Information Visit Information Visit Type Treatment Note Visit Start Time 14:00 Visit Stop Time 14:45 Total Visit Minutes 45 Visit Number 23 Number of SPECIAL PROCEDURES TECHNOLOGIST Visits 0 Evaluation Information Evaluation Date 07/11/22 PT-OP-B Current Condition Start: 07/11/22 14:19 Freq: Status: Active Protocol: Document 07/11/22 11:15 DCW (Rec: 07/11/22 17:44 DCW [id number]) Current Condition History of Current Condition Onset Date Long-standing history Current Complaints Dizziness, cervical pain, thoracic pain, lumbar pain History of Current Condition Pt is a 57 year old male very well known to this clinic presenting with a multitude of complaints and ailments. Pt was recently seen at this facility following ankle surgery ~1 year ago, after which he had a sudden onset of new autoimmune disease, which left him hospitalized for one month, greatly setting back his recovery for his ankle. Due to poor gait, repeatedly twisting his ankle, and multiple falls, pt began to have significant pain in his mid- and low-back, as well as his right hip. Additionally, pt has been complaining of ongoing dizziness for the past six months, typically with various head turns, lasting multiple minutes to half an hour. Pt has had multiple surgeries in the past, including, but not limited to, ankle surgery, cervical fusion (s/p ~10 years), and thoracic outlet syndrome surgery. Treatment Goals Patient/Caregiver Goals Improve mobility by decreasing back pain PT-OP-C Subjective Start: 07/11/22 14:19 Freq: Status: Active Protocol: Document 01/04/23 14:00 DCW (Rec: 01/04/23 14:46 DCW [id number]) OP-PT Subjective Patient Comments Patient Comments PT notes he has been walking better since his last visit. PT-OP-F Manual Assessment Start: 07/11/22 14:19 Freq: Status: Active Protocol: Document 01/04/23 14:00 DCW (Rec: 01/04/23 16:29 DCW [id number]) Manual Assessments Soft Tissue Assessment Soft Tissue Mobility Assessment Moderate tone with tenderness to palpation 2/4: Pain with wincing along bilateral cervical and lumbar paraspinals, upper trap, levator scap, SCM, and QL. Tenderness to palpation 1/4: Complaint of pain along thoracic paraspinals PT-OP-K Range of Motion Start: 07/11/22 14:19 Freq: Status: Active Protocol: Document 01/04/23 14:00 DCW (Rec: 01/04/23 16:29 DCW [id number]) Cervical Spine Range of Motion Cervical Spine Active Degrees Testing Position Sitting Flexion 45 Extension 30 Rotation Left 40 Rotation Right 51 Lateral Flexion Left 31 Lateral Flexion Right 22 ROM Limitations Soft Tissue Tightness, Contracture,Bony Restriction, Muscle Tone,Pain Lumbar Spine Range of Motion Lumbar Spine Active Degrees Testing Position Standing Flexion 40 Extension 18 ROM Limitations Soft Tissue Tightness, Contracture,Bony Restriction, Muscle Tone,Pain PT-OP-L Special Tests Start: 07/11/22 14:19 Freq: Status: Active Protocol: Document 01/04/23 14:00 DCW (Rec: 01/04/23 16:29 DCW [id number]) Special Tests Cervical Spine Special Tests Slump Test Results Negative Traction Test Results Mild pain relief Spurling's Test Test Results Positive R Passive Neck Flexion Test Results Negative Foraminal Compression Test Results Positive R Alar Ligament Test Results Negative PT-OP-O Vestibular Start: 07/11/22 14:19 Freq: Status: Active Protocol: Document 07/11/22 11:15 DCW (Rec: 07/11/22 14:23 DCW [id number]) Vestibular Assessment Screening Tests Vestibular Artery Screen Negative Sharp-Selena Test Negative Visual Testing Smooth Pursuits Horizontal WNL Smooth Pursuits Vertical WNL Saccades Horizontal WNL Saccades Vertical WNL Heave Test Positive Right Thrust Head Positive Right Positional Testing Samantha-Hallpike Negative Left,Negative Right Rolling Test Negative Left,Negative Right Comments Vestibular Comments Pt reports vertigo/dizziness in all positions, worse with left-side dependent, but zero signs of nystagmus. Pt also has poor cervical extension and rotation, limiting proper positioning PT-OP-Q Treatments Start: 07/11/22 14:19 Freq: Status: Active Protocol: Document 01/04/23 14:00 DCW (Rec: 01/04/23 14:46 DCW [id number]) Manual Therapy Treatment Soft Tissue Mobilization Lumbar Paraspinals Body Location QL, Paraspinals Mobilization Type Sustained Pressure,Trigger Point Release Intensity/Depth Moderate Body Position Prone Cervical Paraspinals Body Location UT, Paraspinals, Scalenes, Levator Mobilization Type Sustained Pressure,Trigger Point Release Intensity/Depth Moderate Body Position Supine Joint Mobilizations Lumbar Joint L1-5 Direction P->A Grade III Body Position Prone PT-OP-T Assessment and Plan Start: 07/11/22 14:19 Freq: Status: Active Protocol: Document 01/04/23 14:00 DCW (Rec: 01/04/23 14:46 DCW [id number]) Physical Therapy Assessment Impairments Impairments Balance,Functional Activities, Functional Mobility,Gait, Integument,Pain,Posture,ROM, Soft Tissue Mobility,Strength, Tone,Vestibular Goals Three Impairment Pt experiences dizziness with positional changes [facility] Goal (LTG) Pt to report no episodes of dizziness while lying in bed for one full week to improve sleep pattern LTG Duration Met Two Impairment Left cervical rotation limited to 26? [facility] Goal (LTG) Pt to increase left cervical rotation by at least 19? to 45 ? in order to improve ability to turn head to look for traffic while driving. LTG Duration 03/06/23 - Improving One Impairment Pt does not have an appropriate home exercise program Short Term Goal (STG) Pt to be independent and compliant with an appropriate HEP STG Duration 02/03/23 Assessment Summary Assessment Pt moving better today following treatment next week. Still struggling day-to-day with mobility, limited lumbar and cervical ROM. Attempting to just make it to when he can find a surgeon to perform his needed laminectomy, hopeful he can continue PT to allow him to improve gait. Physical Therapy Plan Frequency and Duration Frequency of Treatment 2x/Week Plan of Care Start Date 01/04/23 Plan of Care End Date 03/06/23 Therapeutic Interventions Therapeutic Interventions Aquatic Therapy,Balance Training,Gait Training,Home Exercise Program,Joint Mobilizations,Manual Therapy, Neuromuscular Re-education, Patient/Caregiver Education, Self-Care/Home Management,Soft Tissue Mobilization, Therapeutic Activities, Therapeutic Exercises, Vestibular Rehabilitation Modalities Cold Pack/Ice Massage,Electric Stimulation,Hot Packs, Ultrasound Next Visit Focus/Plan Next Note Type Treatment Note Next Visit Plan Cervical and lumbar STM/ stretching, core strengthening
--- NOTE | 2023-01-04 16:30 | PT.OPPOC ---
Physical, Occupational & Speech Therapy At [facility] Current Diagnoses Benign paroxysmal vertigo, unspecified ear (01/04/23) Stiffness of other specified joint, not elsewhere classified (01/04/23) Spinal stenosis, lumbar region with neurogenic claudication (01/04/23) Intervertebral disc disorders with myelopathy, thoracic region (01/04/23) Other intervertebral disc displacement, lumbar region (01/04/23) Other intervertebral disc degeneration, lumbar region (01/04/23) Cervicalgia (01/04/23) Visit Care Team Role Provider Type Jhon Taylor MD Attending Provider Physician Family Provider Primary Care Provider Referring Provider Specialty: Internal Medicine Address: [address] [place] [address], [facility] Email: [email or web address] Plan Of Care PT-OP-T Assessment and Plan Start: 07/11/22 14:19 Freq: Status: Active Protocol: Document 01/04/23 14:00 DCW (Rec: 01/04/23 14:46 DCW [id number]) Physical Therapy Assessment Impairments Impairments Balance,Functional Activities, Functional Mobility,Gait, Integument,Pain,Posture,ROM, Soft Tissue Mobility,Strength, Tone,Vestibular Goals Three Impairment Pt experiences dizziness with positional changes [place] Goal (LTG) Pt to report no episodes of dizziness while lying in bed for one full week to improve sleep pattern LTG Duration Met Two Impairment Left cervical rotation limited to 26? [place] Goal (LTG) Pt to increase left cervical rotation by at least 19? to 45 ? in order to improve ability to turn head to look for traffic while driving. LTG Duration 03/06/23 - Improving One Impairment Pt does not have an appropriate home exercise program Short Term Goal (STG) Pt to be independent and compliant with an appropriate HEP STG Duration 02/03/23 Assessment Summary Assessment Pt moving better today following treatment next week. Still struggling day-to-day with mobility, limited lumbar and cervical ROM. Attempting to just make it to when he can find a surgeon to perform his needed laminectomy, hopeful he can continue PT to allow him to improve gait. Physical Therapy Plan Frequency and Duration Frequency of Treatment 2x/Week Plan of Care Start Date 01/04/23 Plan of Care End Date 03/06/23 Therapeutic Interventions Therapeutic Interventions Aquatic Therapy,Balance Training,Gait Training,Home Exercise Program,Joint Mobilizations,Manual Therapy, Neuromuscular Re-education, Patient/Caregiver Education, Self-Care/Home Management,Soft Tissue Mobilization, Therapeutic Activities, Therapeutic Exercises, Vestibular Rehabilitation Modalities Cold Pack/Ice Massage,Electric Stimulation,Hot Packs, Ultrasound Next Visit Focus/Plan Next Note Type Treatment Note Next Visit Plan Cervical and lumbar STM/ stretching, core strengthening Plan of Care Dates Plan of Care Start Date 01/04/23 Plan of Care End Date 03/06/23 Electronically Signed by: Tong Card, PT 01/04/23 [id number] If you are in agreement with this Plan of Care, please return a signed and dated copy. I have reviewed this Plan of Care and certify that the skilled therapy services above are required to meet the patient?s needs. Physician Signature Date Printed Name and Credentials Clinical Instructor Signature Printed Name and Credentials
--- NOTE | 2023-01-09 11:43 | PT.OTN ---
Current Diagnoses Benign paroxysmal vertigo, unspecified ear (01/09/23) Stiffness of other specified joint, not elsewhere classified (01/09/23) Spinal stenosis, lumbar region with neurogenic claudication (01/09/23) Intervertebral disc disorders with myelopathy, thoracic region (01/09/23) Other intervertebral disc displacement, lumbar region (01/09/23) Other intervertebral disc degeneration, lumbar region (01/09/23) Cervicalgia (01/09/23) Physical Therapy Treatment Note PT-OP-A Visit Information Start: 07/11/22 14:19 Freq: Status: Active Protocol: Document 01/09/23 11:00 DCW (Rec: 01/09/23 11:42 DCW [id number]) Out-Patient Physical Therapy Visit Information Visit Information Visit Type Treatment Note Visit Start Time 11:00 Visit Stop Time 11:45 Total Visit Minutes 45 Visit Number 24 Number of UNION CONTRACT REPRESENTATIVE Visits 0 Evaluation Information Evaluation Date 07/11/22 PT-OP-B Current Condition Start: 07/11/22 14:19 Freq: Status: Active Protocol: Document 07/11/22 11:15 DCW (Rec: 07/11/22 17:44 DCW [id number]) Current Condition History of Current Condition Onset Date Long-standing history Current Complaints Dizziness, cervical pain, thoracic pain, lumbar pain History of Current Condition Pt is a 57 year old male very well known to this clinic presenting with a multitude of complaints and ailments. Pt was recently seen at this facility following ankle surgery ~1 year ago, after which he had a sudden onset of new autoimmune disease, which left him hospitalized for one month, greatly setting back his recovery for his ankle. Due to poor gait, repeatedly twisting his ankle, and multiple falls, pt began to have significant pain in his mid- and low-back, as well as his right hip. Additionally, pt has been complaining of ongoing dizziness for the past six months, typically with various head turns, lasting multiple minutes to half an hour. Pt has had multiple surgeries in the past, including, but not limited to, ankle surgery, cervical fusion (s/p ~10 years), and thoracic outlet syndrome surgery. Treatment Goals Patient/Caregiver Goals Improve mobility by decreasing back pain PT-OP-C Subjective Start: 07/11/22 14:19 Freq: Status: Active Protocol: Document 01/09/23 11:00 DCW (Rec: 01/09/23 11:42 DCW [id number]) OP-PT Subjective Patient Comments Patient Comments Pt wears sandles today to try to see if going flatfooted would help with his ankle, notes he is not rolling his ankle, but it is really bothering his back. PT-OP-F Manual Assessment Start: 07/11/22 14:19 Freq: Status: Active Protocol: Document 01/04/23 14:00 DCW (Rec: 01/04/23 16:29 DCW [id number]) Manual Assessments Soft Tissue Assessment Soft Tissue Mobility Assessment Moderate tone with tenderness to palpation 2/4: Pain with wincing along bilateral cervical and lumbar paraspinals, upper trap, levator scap, SCM, and QL. Tenderness to palpation 1/4: Complaint of pain along thoracic paraspinals PT-OP-K Range of Motion Start: 07/11/22 14:19 Freq: Status: Active Protocol: Document 01/04/23 14:00 DCW (Rec: 01/04/23 16:29 DCW [id number]) Cervical Spine Range of Motion Cervical Spine Active Degrees Testing Position Sitting Flexion 45 Extension 30 Rotation Left 40 Rotation Right 51 Lateral Flexion Left 31 Lateral Flexion Right 22 ROM Limitations Soft Tissue Tightness, Contracture,Bony Restriction, Muscle Tone,Pain Lumbar Spine Range of Motion Lumbar Spine Active Degrees Testing Position Standing Flexion 40 Extension 18 ROM Limitations Soft Tissue Tightness, Contracture,Bony Restriction, Muscle Tone,Pain PT-OP-L Special Tests Start: 07/11/22 14:19 Freq: Status: Active Protocol: Document 01/04/23 14:00 DCW (Rec: 01/04/23 16:29 DCW [id number]) Special Tests Cervical Spine Special Tests Slump Test Results Negative Traction Test Results Mild pain relief Spurling's Test Test Results Positive R Passive Neck Flexion Test Results Negative Foraminal Compression Test Results Positive R Alar Ligament Test Results Negative PT-OP-O Vestibular Start: 07/11/22 14:19 Freq: Status: Active Protocol: Document 07/11/22 11:15 DCW (Rec: 07/11/22 14:23 DCW [id number]) Vestibular Assessment Screening Tests Vestibular Artery Screen Negative Sharp-Selena Test Negative Visual Testing Smooth Pursuits Horizontal WNL Smooth Pursuits Vertical WNL Saccades Horizontal WNL Saccades Vertical WNL Heave Test Positive Right Thrust Head Positive Right Positional Testing Samantha-Hallpike Negative Left,Negative Right Rolling Test Negative Left,Negative Right Comments Vestibular Comments Pt reports vertigo/dizziness in all positions, worse with left-side dependent, but zero signs of nystagmus. Pt also has poor cervical extension and rotation, limiting proper positioning PT-OP-Q Treatments Start: 07/11/22 14:19 Freq: Status: Active Protocol: Document 01/09/23 11:00 DCW (Rec: 01/09/23 11:42 DCW [id number]) Therapeutic Exercises Standing Exercises Resisted Trunk Rotation Standing Exercise Name Resisted Trunk Rotation Side bilateral Resistance Blue T-band Pallof Press Standing Exercise Name Pallof Press Side bilateral Resistance Blue T-band Manual Therapy Treatment Soft Tissue Mobilization Lumbar Paraspinals Body Location QL, Paraspinals Mobilization Type Sustained Pressure,Trigger Point Release Intensity/Depth Moderate Body Position Prone Cervical Paraspinals Body Location UT, Paraspinals, Scalenes, Levator Mobilization Type Sustained Pressure,Trigger Point Release Intensity/Depth Moderate Body Position Supine Joint Mobilizations Lumbar Joint L1-5 Direction P->A Grade III Body Position Prone PT-OP-T Assessment and Plan Start: 07/11/22 14:19 Freq: Status: Active Protocol: Document 01/09/23 11:00 DCW (Rec: 01/09/23 11:42 DCW [id number]) Physical Therapy Assessment Impairments Impairments Balance,Functional Activities, Functional Mobility,Gait, Integument,Pain,Posture,ROM, Soft Tissue Mobility,Strength, Tone,Vestibular Goals Three Impairment Pt experiences dizziness with positional changes Chicken Fancier Goal (LTG) Pt to report no episodes of dizziness while lying in bed for one full week to improve sleep pattern LTG Duration Met Two Impairment Left cervical rotation limited to 26? Chicken Fancier Goal (LTG) Pt to increase left cervical rotation by at least 19? to 45 ? in order to improve ability to turn head to look for traffic while driving. LTG Duration 03/06/23 - Improving One Impairment Pt does not have an appropriate home exercise program Short Term Goal (STG) Pt to be independent and compliant with an appropriate HEP STG Duration 02/03/23 Assessment Summary Assessment Addition of core strengthening HEP today, pt happy to have more to do, but admitted it did bother his back. Recommended him to take it easy and not over do it. Physical Therapy Plan Frequency and Duration Frequency of Treatment 2x/Week Plan of Care Start Date 01/04/23 Plan of Care End Date 03/06/23 Therapeutic Interventions Therapeutic Interventions Aquatic Therapy,Balance Training,Gait Training,Home Exercise Program,Joint Mobilizations,Manual Therapy, Neuromuscular Re-education, Patient/Caregiver Education, Self-Care/Home Management,Soft Tissue Mobilization, Therapeutic Activities, Therapeutic Exercises, Vestibular Rehabilitation Modalities Cold Pack/Ice Massage,Electric Stimulation,Hot Packs, Ultrasound Next Visit Focus/Plan Next Note Type Treatment Note Next Visit Plan Cervical and lumbar STM/ stretching, core strengthening
--- NOTE | 2023-01-12 11:56 | PT.OTN ---
Current Diagnoses Benign paroxysmal vertigo, unspecified ear (01/12/23) Stiffness of other specified joint, not elsewhere classified (01/12/23) Spinal stenosis, lumbar region with neurogenic claudication (01/12/23) Intervertebral disc disorders with myelopathy, thoracic region (01/12/23) Other intervertebral disc displacement, lumbar region (01/12/23) Other intervertebral disc degeneration, lumbar region (01/12/23) Cervicalgia (01/12/23) Physical Therapy Treatment Note PT-OP-A Visit Information Start: 07/11/22 14:19 Freq: Status: Active Protocol: Document 01/12/23 11:15 DCW (Rec: 01/12/23 11:56 DCW [id number]) Out-Patient Physical Therapy Visit Information Visit Information Visit Type Treatment Note Visit Start Time 11:15 Visit Stop Time 12:00 Total Visit Minutes 45 Visit Number 26 Number of LOCAL TRUCK DRIVER Visits 0 Evaluation Information Evaluation Date 07/11/22 PT-OP-B Current Condition Start: 07/11/22 14:19 Freq: Status: Active Protocol: Document 07/11/22 11:15 DCW (Rec: 07/11/22 17:44 DCW [id number]) Current Condition History of Current Condition Onset Date Long-standing history Current Complaints Dizziness, cervical pain, thoracic pain, lumbar pain History of Current Condition Pt is a 57 year old male very well known to this clinic presenting with a multitude of complaints and ailments. Pt was recently seen at this facility following ankle surgery ~1 year ago, after which he had a sudden onset of new autoimmune disease, which left him hospitalized for one month, greatly setting back his recovery for his ankle. Due to poor gait, repeatedly twisting his ankle, and multiple falls, pt began to have significant pain in his mid- and low-back, as well as his right hip. Additionally, pt has been complaining of ongoing dizziness for the past six months, typically with various head turns, lasting multiple minutes to half an hour. Pt has had multiple surgeries in the past, including, but not limited to, ankle surgery, cervical fusion (s/p ~10 years), and thoracic outlet syndrome surgery. Treatment Goals Patient/Caregiver Goals Improve mobility by decreasing back pain PT-OP-C Subjective Start: 07/11/22 14:19 Freq: Status: Active Protocol: Document 01/12/23 11:15 DCW (Rec: 01/12/23 11:56 DCW [id number]) OP-PT Subjective Patient Comments Patient Comments Pt very sore following attempts to work on core strengthening. Notes he saw Dr Rosado, who believes he has a 1.5 LLD. Also having episodes of low back spasm, occasioanlly throughout the week. PT-OP-F Manual Assessment Start: 07/11/22 14:19 Freq: Status: Active Protocol: Document 01/04/23 14:00 DCW (Rec: 01/04/23 16:29 DCW [id number]) Manual Assessments Soft Tissue Assessment Soft Tissue Mobility Assessment Moderate tone with tenderness to palpation 2/4: Pain with wincing along bilateral cervical and lumbar paraspinals, upper trap, levator scap, SCM, and QL. Tenderness to palpation 1/4: Complaint of pain along thoracic paraspinals PT-OP-K Range of Motion Start: 07/11/22 14:19 Freq: Status: Active Protocol: Document 01/04/23 14:00 DCW (Rec: 01/04/23 16:29 AZW [id number]) Cervical Spine Range of Motion Cervical Spine Active Degrees Testing Position Sitting Flexion 45 Extension 30 Rotation Left 40 Rotation Right 51 Lateral Flexion Left 31 Lateral Flexion Right 22 ROM Limitations Soft Tissue Tightness, Contracture,Bony Restriction, Muscle Tone,Pain Lumbar Spine Range of Motion Lumbar Spine Active Degrees Testing Position Standing Flexion 40 Extension 18 ROM Limitations Soft Tissue Tightness, Contracture,Bony Restriction, Muscle Tone,Pain PT-OP-L Special Tests Start: 07/11/22 14:19 Freq: Status: Active Protocol: Document 01/04/23 14:00 DCW (Rec: 01/04/23 16:29 DCW [id number]) Special Tests Cervical Spine Special Tests Slump Test Results Negative Traction Test Results Mild pain relief Spurling's Test Test Results Positive R Passive Neck Flexion Test Results Negative Foraminal Compression Test Results Positive R Alar Ligament Test Results Negative PT-OP-O Vestibular Start: 07/11/22 14:19 Freq: Status: Active Protocol: Document 07/11/22 11:15 DCW (Rec: 07/11/22 14:23 DCW [id number]) Vestibular Assessment Screening Tests Vestibular Artery Screen Negative Sharp-Selena Test Negative Visual Testing Smooth Pursuits Horizontal WNL Smooth Pursuits Vertical WNL Saccades Horizontal WNL Saccades Vertical WNL Heave Test Positive Right Thrust Head Positive Right Positional Testing [place]-Hallpike Negative Left,Negative Right Rolling Test Negative Left,Negative Right Comments Vestibular Comments Pt reports vertigo/dizziness in all positions, worse with left-side dependent, but zero signs of nystagmus. Pt also has poor cervical extension and rotation, limiting proper positioning PT-OP-Q Treatments Start: 07/11/22 14:19 Freq: Status: Active Protocol: Document 01/12/23 11:15 DCW (Rec: 01/12/23 11:56 [facility] [id number]) Manual Therapy Treatment Soft Tissue Mobilization Lumbar Paraspinals Body Location QL, Paraspinals Mobilization Type Sustained Pressure,Trigger Point Release Intensity/Depth Moderate Body Position Prone Cervical Paraspinals Body Location UT, Paraspinals, Scalenes, Levator Mobilization Type Sustained Pressure,Trigger Point Release Intensity/Depth Moderate Body Position Supine Joint Mobilizations Lumbar Joint L1-5 Direction P->A Grade III Body Position Prone PT-OP-T Assessment and Plan Start: 07/11/22 14:19 Freq: Status: Active Protocol: Document 01/12/23 11:15 DCW (Rec: 01/12/23 11:56 [facility] [id number]) Physical Therapy Assessment Impairments Impairments Balance,Functional Activities, Functional Mobility,Gait, Integument,Pain,Posture,ROM, Soft Tissue Mobility,Strength, Tone,Vestibular Goals Three Impairment Pt experiences dizziness with positional changes Senior Care Goal (LTG) Pt to report no episodes of dizziness while lying in bed for one full week to improve sleep pattern LTG Duration Met Two Impairment Left cervical rotation limited to 26? Cylinder Handler Goal (LTG) Pt to increase left cervical rotation by at least 19? to 45 ? in order to improve ability to turn head to look for traffic while driving. LTG Duration 03/06/23 - Improving One Impairment Pt does not have an appropriate home exercise program Short Term Goal (STG) Pt to be independent and compliant with an appropriate HEP STG Duration 02/03/23 Assessment Summary Assessment Pt tolerated treatment well today, much better than when he entered the clinic today, has recovered from increased low back tone after treatment last visit. Physical Therapy Plan Frequency and Duration Frequency of Treatment 2x/Week Plan of Care Start Date 01/04/23 Plan of Care End Date 03/06/23 Therapeutic Interventions Therapeutic Interventions Aquatic Therapy,Balance Training,Gait Training,Home Exercise Program,Joint Mobilizations,Manual Therapy, Neuromuscular Re-education, Patient/Caregiver Education, Self-Care/Home Management,Soft Tissue Mobilization, Therapeutic Activities, Therapeutic Exercises, Vestibular Rehabilitation Modalities Cold Pack/Ice Massage,Electric Stimulation,Hot Packs, Ultrasound Next Visit Focus/Plan Next Note Type Treatment Note Next Visit Plan Cervical and lumbar STM/ stretching, core strengthening
--- NOTE | 2023-01-16 11:41 | PT.OTN ---
Current Diagnoses Benign paroxysmal vertigo, unspecified ear (01/16/23) Stiffness of other specified joint, not elsewhere classified (01/16/23) Spinal stenosis, lumbar region with neurogenic claudication (01/16/23) Intervertebral disc disorders with myelopathy, thoracic region (01/16/23) Other intervertebral disc displacement, lumbar region (01/16/23) Other intervertebral disc degeneration, lumbar region (01/16/23) Cervicalgia (01/16/23) Physical Therapy Treatment Note PT-OP-A Visit Information Start: 07/11/22 14:19 Freq: Status: Active Protocol: Document 01/16/23 11:00 DCW (Rec: 01/16/23 11:41 DCW [id number]) Out-Patient Physical Therapy Visit Information Visit Information Visit Type Treatment Note Visit Start Time 11:00 Visit Stop Time 11:45 Total Visit Minutes 45 Visit Number 26 Number of MARBLE CEILING INSTALLER Visits 0 Evaluation Information Evaluation Date 07/11/22 PT-OP-B Current Condition Start: 07/11/22 14:19 Freq: Status: Active Protocol: Document 07/11/22 11:15 DCW (Rec: 07/11/22 17:44 DCW [id number]) Current Condition History of Current Condition Onset Date Long-standing history Current Complaints Dizziness, cervical pain, thoracic pain, lumbar pain History of Current Condition Pt is a 57 year old male very well known to this clinic presenting with a multitude of complaints and ailments. Pt was recently seen at this facility following ankle surgery ~1 year ago, after which he had a sudden onset of new autoimmune disease, which left him hospitalized for one month, greatly setting back his recovery for his ankle. Due to poor gait, repeatedly twisting his ankle, and multiple falls, pt began to have significant pain in his mid- and low-back, as well as his right hip. Additionally, pt has been complaining of ongoing dizziness for the past six months, typically with various head turns, lasting multiple minutes to half an hour. Pt has had multiple surgeries in the past, including, but not limited to, ankle surgery, cervical fusion (s/p ~10 years), and thoracic outlet syndrome surgery. Treatment Goals Patient/Caregiver Goals Improve mobility by decreasing back pain PT-OP-C Subjective Start: 07/11/22 14:19 Freq: Status: Active Protocol: Document 01/16/23 11:00 DCW (Rec: 01/16/23 11:41 DCW [id number]) OP-PT Subjective Patient Comments Patient Comments Pt reports he is more frequently getting episodes of occasional, short-term sudden right leg weakness. Reports it is just his entire leg suddenly becomes very weak. PT-OP-F Manual Assessment Start: 07/11/22 14:19 Freq: Status: Active Protocol: Document 01/04/23 14:00 DCW (Rec: 01/04/23 16:29 DCW [id number]) Manual Assessments Soft Tissue Assessment Soft Tissue Mobility Assessment Moderate tone with tenderness to palpation 2/4: Pain with wincing along bilateral cervical and lumbar paraspinals, upper trap, levator scap, SCM, and QL. Tenderness to palpation 1/4: Complaint of pain along thoracic paraspinals PT-OP-K Range of Motion Start: 07/11/22 14:19 Freq: Status: Active Protocol: Document 01/04/23 14:00 DCW (Rec: 01/04/23 16:29 DCW [id number]) Cervical Spine Range of Motion Cervical Spine Active Degrees Testing Position Sitting Flexion 45 Extension 30 Rotation Left 40 Rotation Right 51 Lateral Flexion Left 31 Lateral Flexion Right 22 ROM Limitations Soft Tissue Tightness, Contracture,Bony Restriction, Muscle Tone,Pain Lumbar Spine Range of Motion Lumbar Spine Active Degrees Testing Position Standing Flexion 40 Extension 18 ROM Limitations Soft Tissue Tightness, Contracture,Bony Restriction, Muscle Tone,Pain PT-OP-L Special Tests Start: 07/11/22 14:19 Freq: Status: Active Protocol: Document 01/04/23 14:00 DCW (Rec: 01/04/23 16:29 DCW [id number]) Special Tests Cervical Spine Special Tests Slump Test Results Negative Traction Test Results Mild pain relief Spurling's Test Test Results Positive R Passive Neck Flexion Test Results Negative Foraminal Compression Test Results Positive R Alar Ligament Test Results Negative PT-OP-O Vestibular Start: 07/11/22 14:19 Freq: Status: Active Protocol: Document 07/11/22 11:15 DCW (Rec: 07/11/22 14:23 DCW [id number]) Vestibular Assessment Screening Tests Vestibular Artery Screen Negative Sharp-Selena Test Negative Visual Testing Smooth Pursuits Horizontal WNL Smooth Pursuits Vertical WNL Saccades Horizontal WNL Saccades Vertical WNL Heave Test Positive Right Thrust Head Positive Right Positional Testing Samantha-Hallpike Negative Left,Negative Right Rolling Test Negative Left,Negative Right Comments Vestibular Comments Pt reports vertigo/dizziness in all positions, worse with left-side dependent, but zero signs of nystagmus. Pt also has poor cervical extension and rotation, limiting proper positioning PT-OP-Q Treatments Start: 07/11/22 14:19 Freq: Status: Active Protocol: Document 01/16/23 11:00 DCW (Rec: 01/16/23 11:41 [facility] [id number]) Manual Therapy Treatment Soft Tissue Mobilization Lumbar Paraspinals Body Location QL, Paraspinals Mobilization Type Sustained Pressure,Trigger Point Release Intensity/Depth Moderate Body Position Prone Cervical Paraspinals Body Location UT, Paraspinals, Scalenes, Levator Mobilization Type Sustained Pressure,Trigger Point Release Intensity/Depth Moderate Body Position Supine Joint Mobilizations Lumbar Joint L1-5 Direction P->A Grade III Body Position Prone PT-OP-T Assessment and Plan Start: 07/11/22 14:19 Freq: Status: Active Protocol: Document 01/16/23 11:00 DCW (Rec: 01/16/23 11:41 [facility] [id number]) Physical Therapy Assessment Impairments Impairments Balance,Functional Activities, Functional Mobility,Gait, Integument,Pain,Posture,ROM, Soft Tissue Mobility,Strength, Tone,Vestibular Goals Three Impairment Pt experiences dizziness with positional changes Residential Goal (LTG) Pt to report no episodes of dizziness while lying in bed for one full week to improve sleep pattern LTG Duration Met Two Impairment Left cervical rotation limited to 26? [place] Hand Goal (LTG) Pt to increase left cervical rotation by at least 19? to 45 ? in order to improve ability to turn head to look for traffic while driving. LTG Duration 03/06/23 - Improving One Impairment Pt does not have an appropriate home exercise program Short Term Goal (STG) Pt to be independent and compliant with an appropriate HEP STG Duration 02/03/23 Assessment Summary Assessment Pt getting frustrated that he can't find anyone to perform his surgery that he has been told that he needs. Feels that PT is the only thing that is keeping him moving anymore. Physical Therapy Plan Frequency and Duration Frequency of Treatment 2x/Week Plan of Care Start Date 01/04/23 Plan of Care End Date 03/06/23 Therapeutic Interventions Therapeutic Interventions Aquatic Therapy,Balance Training,Gait Training,Home Exercise Program,Joint Mobilizations,Manual Therapy, Neuromuscular Re-education, Patient/Caregiver Education, Self-Care/Home Management,Soft Tissue Mobilization, Therapeutic Activities, Therapeutic Exercises, Vestibular Rehabilitation Modalities Cold Pack/Ice Massage,Electric Stimulation,Hot Packs, Ultrasound Next Visit Focus/Plan Next Note Type Treatment Note Next Visit Plan Cervical and lumbar STM/ stretching, core strengthening
--- NOTE | 2023-01-18 11:43 | PT.OTN ---
Current Diagnoses Benign paroxysmal vertigo, unspecified ear (01/18/23) Stiffness of other specified joint, not elsewhere classified (01/18/23) Spinal stenosis, lumbar region with neurogenic claudication (01/18/23) Intervertebral disc disorders with myelopathy, thoracic region (01/18/23) Other intervertebral disc displacement, lumbar region (01/18/23) Other intervertebral disc degeneration, lumbar region (01/18/23) Cervicalgia (01/18/23) Physical Therapy Treatment Note PT-OP-A Visit Information Start: 07/11/22 14:19 Freq: Status: Active Protocol: Document 01/18/23 11:04 DCW (Rec: 01/18/23 11:43 DCW [id number]) Out-Patient Physical Therapy Visit Information Visit Information Visit Type Treatment Note Visit Start Time 11:04 Visit Stop Time 11:45 Total Visit Minutes 41 Visit Number 27 Number of SHRIMP HEADER Visits 0 Evaluation Information Evaluation Date 07/11/22 PT-OP-B Current Condition Start: 07/11/22 14:19 Freq: Status: Active Protocol: Document 07/11/22 11:15 DCW (Rec: 07/11/22 17:44 DCW [id number]) Current Condition History of Current Condition Onset Date Long-standing history Current Complaints Dizziness, cervical pain, thoracic pain, lumbar pain History of Current Condition Pt is a 57 year old male very well known to this clinic presenting with a multitude of complaints and ailments. Pt was recently seen at this facility following ankle surgery ~1 year ago, after which he had a sudden onset of new autoimmune disease, which left him hospitalized for one month, greatly setting back his recovery for his ankle. Due to poor gait, repeatedly twisting his ankle, and multiple falls, pt began to have significant pain in his mid- and low-back, as well as his right hip. Additionally, pt has been complaining of ongoing dizziness for the past six months, typically with various head turns, lasting multiple minutes to half an hour. Pt has had multiple surgeries in the past, including, but not limited to, ankle surgery, cervical fusion (s/p ~10 years), and thoracic outlet syndrome surgery. Treatment Goals Patient/Caregiver Goals Improve mobility by decreasing back pain PT-OP-C Subjective Start: 07/11/22 14:19 Freq: Status: Active Protocol: Document 01/18/23 11:04 DCW (Rec: 01/18/23 11:43 DCW [id number]) OP-PT Subjective Patient Comments Patient Comments This made a lot of difference last time, I really appreciate it, but in my castano to get in here today, I rolled my ankle again, and now just everything hurts. PT-OP-F Manual Assessment Start: 07/11/22 14:19 Freq: Status: Active Protocol: Document 01/04/23 14:00 DCW (Rec: 01/04/23 16:29 DCW [id number]) Manual Assessments Soft Tissue Assessment Soft Tissue Mobility Assessment Moderate tone with tenderness to palpation 2/4: Pain with wincing along bilateral cervical and lumbar paraspinals, upper trap, levator scap, SCM, and QL. Tenderness to palpation 1/4: Complaint of pain along thoracic paraspinals PT-OP-K Range of Motion Start: 07/11/22 14:19 Freq: Status: Active Protocol: Document 01/04/23 14:00 DCW (Rec: 01/04/23 16:29 DCW [id number]) Cervical Spine Range of Motion Cervical Spine Active Degrees Testing Position Sitting Flexion 45 Extension 30 Rotation Left 40 Rotation Right 51 Lateral Flexion Left 31 Lateral Flexion Right 22 ROM Limitations Soft Tissue Tightness, Contracture,Bony Restriction, Muscle Tone,Pain Lumbar Spine Range of Motion Lumbar Spine Active Degrees Testing Position Standing Flexion 40 Extension 18 ROM Limitations Soft Tissue Tightness, Contracture,Bony Restriction, Muscle Tone,Pain PT-OP-L Special Tests Start: 07/11/22 14:19 Freq: Status: Active Protocol: Document 01/04/23 14:00 DCW (Rec: 01/04/23 16:29 DCW [id number]) Special Tests Cervical Spine Special Tests Slump Test Results Negative Traction Test Results Mild pain relief Spurling's Test Test Results Positive R Passive Neck Flexion Test Results Negative Foraminal Compression Test Results Positive R Alar Ligament Test Results Negative PT-OP-O Vestibular Start: 07/11/22 14:19 Freq: Status: Active Protocol: Document 07/11/22 11:15 DCW (Rec: 07/11/22 14:23 DCW [id number]) Vestibular Assessment Screening Tests Vestibular Artery Screen Negative Sharp-Selena Test Negative Visual Testing Smooth Pursuits Horizontal WNL Smooth Pursuits Vertical WNL Saccades Horizontal WNL Saccades Vertical WNL Heave Test Positive Right Thrust Head Positive Right Positional Testing [place]-Hallpike Negative Left,Negative Right Rolling Test Negative Left,Negative Right Comments Vestibular Comments Pt reports vertigo/dizziness in all positions, worse with left-side dependent, but zero signs of nystagmus. Pt also has poor cervical extension and rotation, limiting proper positioning PT-OP-Q Treatments Start: 07/11/22 14:19 Freq: Status: Active Protocol: Document 01/18/23 11:04 DCW (Rec: 01/18/23 11:43 [facility] [id number]) Manual Therapy Treatment Soft Tissue Mobilization Lumbar Paraspinals Body Location QL, Paraspinals Mobilization Type Sustained Pressure,Trigger Point Release Intensity/Depth Moderate Body Position Prone Cervical Paraspinals Body Location UT, Paraspinals, Scalenes, Levator Mobilization Type Sustained Pressure,Trigger Point Release Intensity/Depth Moderate Body Position Supine Joint Mobilizations Lumbar Joint L1-5 Direction P->A Grade III Body Position Prone PT-OP-T Assessment and Plan Start: 07/11/22 14:19 Freq: Status: Active Protocol: Document 01/18/23 11:04 DCW (Rec: 01/18/23 11:43 [facility] [id number]) Physical Therapy Assessment Impairments Impairments Balance,Functional Activities, Functional Mobility,Gait, Integument,Pain,Posture,ROM, Soft Tissue Mobility,Strength, Tone,Vestibular Goals Three Impairment Pt experiences dizziness with positional changes Oyster Tonger Goal (LTG) Pt to report no episodes of dizziness while lying in bed for one full week to improve sleep pattern LTG Duration Met Two Impairment Left cervical rotation limited to 26? Snf Goal (LTG) Pt to increase left cervical rotation by at least 19? to 45 ? in order to improve ability to turn head to look for traffic while driving. LTG Duration 03/06/23 - Improving One Impairment Pt does not have an appropriate home exercise program Short Term Goal (STG) Pt to be independent and compliant with an appropriate HEP STG Duration 02/03/23 Assessment Summary Assessment Pt tolerated treatment very well, able to move more easily following today's session, decreased forward trunk flexion. Physical Therapy Plan Frequency and Duration Frequency of Treatment 2x/Week Plan of Care Start Date 01/04/23 Plan of Care End Date 03/06/23 Therapeutic Interventions Therapeutic Interventions Aquatic Therapy,Balance Training,Gait Training,Home Exercise Program,Joint Mobilizations,Manual Therapy, Neuromuscular Re-education, Patient/Caregiver Education, Self-Care/Home Management,Soft Tissue Mobilization, Therapeutic Activities, Therapeutic Exercises, Vestibular Rehabilitation Modalities Cold Pack/Ice Massage,Electric Stimulation,Hot Packs, Ultrasound Next Visit Focus/Plan Next Note Type Treatment Note Next Visit Plan Cervical and lumbar STM/ stretching, core strengthening
--- NOTE | 2023-01-23 11:42 | PT.OTN ---
Current Diagnoses Benign paroxysmal vertigo, unspecified ear (01/23/23) Stiffness of other specified joint, not elsewhere classified (01/23/23) Spinal stenosis, lumbar region with neurogenic claudication (01/23/23) Intervertebral disc disorders with myelopathy, thoracic region (01/23/23) Other intervertebral disc displacement, lumbar region (01/23/23) Other intervertebral disc degeneration, lumbar region (01/23/23) Cervicalgia (01/23/23) Physical Therapy Treatment Note PT-OP-A Visit Information Start: 07/11/22 14:19 Freq: Status: Active Protocol: Document 01/23/23 11:07 DCW (Rec: 01/23/23 11:40 DCW [id number]) Out-Patient Physical Therapy Visit Information Visit Information Visit Type Treatment Note Visit Start Time 11:07 Visit Stop Time 11:45 Total Visit Minutes 38 Visit Number 28 Number of ARCHITECTURAL DESIGNER Visits 0 Evaluation Information Evaluation Date 07/11/22 PT-OP-B Current Condition Start: 07/11/22 14:19 Freq: Status: Active Protocol: Document 07/11/22 11:15 DCW (Rec: 07/11/22 17:44 DCW [id number]) Current Condition History of Current Condition Onset Date Long-standing history Current Complaints Dizziness, cervical pain, thoracic pain, lumbar pain History of Current Condition Pt is a 57 year old male very well known to this clinic presenting with a multitude of complaints and ailments. Pt was recently seen at this facility following ankle surgery ~1 year ago, after which he had a sudden onset of new autoimmune disease, which left him hospitalized for one month, greatly setting back his recovery for his ankle. Due to poor gait, repeatedly twisting his ankle, and multiple falls, pt began to have significant pain in his mid- and low-back, as well as his right hip. Additionally, pt has been complaining of ongoing dizziness for the past six months, typically with various head turns, lasting multiple minutes to half an hour. Pt has had multiple surgeries in the past, including, but not limited to, ankle surgery, cervical fusion (s/p ~10 years), and thoracic outlet syndrome surgery. Treatment Goals Patient/Caregiver Goals Improve mobility by decreasing back pain PT-OP-C Subjective Start: 07/11/22 14:19 Freq: Status: Active Protocol: Document 01/23/23 11:07 DCW (Rec: 01/23/23 11:40 DCW [id number]) OP-PT Subjective Patient Comments Patient Comments It's good and bad all at the same time. I'm sore in the neck, I'm sore in the back, but overall I actually im less sore overall. PT-OP-F Manual Assessment Start: 07/11/22 14:19 Freq: Status: Active Protocol: Document 01/04/23 14:00 DCW (Rec: 01/04/23 16:29 DCW [id number]) Manual Assessments Soft Tissue Assessment Soft Tissue Mobility Assessment Moderate tone with tenderness to palpation 2/4: Pain with wincing along bilateral cervical and lumbar paraspinals, upper trap, levator scap, SCM, and QL. Tenderness to palpation 1/4: Complaint of pain along thoracic paraspinals PT-OP-K Range of Motion Start: 07/11/22 14:19 Freq: Status: Active Protocol: Document 01/04/23 14:00 DCW (Rec: 01/04/23 16:29 DCW [id number]) Cervical Spine Range of Motion Cervical Spine Active Degrees Testing Position Sitting Flexion 45 Extension 30 Rotation Left 40 Rotation Right 51 Lateral Flexion Left 31 Lateral Flexion Right 22 ROM Limitations Soft Tissue Tightness, Contracture,Bony Restriction, Muscle Tone,Pain Lumbar Spine Range of Motion Lumbar Spine Active Degrees Testing Position Standing Flexion 40 Extension 18 ROM Limitations Soft Tissue Tightness, Contracture,Bony Restriction, Muscle Tone,Pain PT-OP-L Special Tests Start: 07/11/22 14:19 Freq: Status: Active Protocol: Document 01/04/23 14:00 DCW (Rec: 01/04/23 16:29 DCW [id number]) Special Tests Cervical Spine Special Tests Slump Test Results Negative Traction Test Results Mild pain relief Spurling's Test Test Results Positive R Passive Neck Flexion Test Results Negative Foraminal Compression Test Results Positive R Alar Ligament Test Results Negative PT-OP-O Vestibular Start: 07/11/22 14:19 Freq: Status: Active Protocol: Document 07/11/22 11:15 DCW (Rec: 07/11/22 14:23 DCW [id number]) Vestibular Assessment Screening Tests Vestibular Artery Screen Negative Sharp-Selena Test Negative Visual Testing Smooth Pursuits Horizontal WNL Smooth Pursuits Vertical WNL Saccades Horizontal WNL Saccades Vertical WNL Heave Test Positive Right Thrust Head Positive Right Positional Testing [place]-Hallpike Negative Left,Negative Right Rolling Test Negative Left,Negative Right Comments Vestibular Comments Pt reports vertigo/dizziness in all positions, worse with left-side dependent, but zero signs of nystagmus. Pt also has poor cervical extension and rotation, limiting proper positioning PT-OP-Q Treatments Start: 07/11/22 14:19 Freq: Status: Active Protocol: Document 01/23/23 11:07 DCW (Rec: 01/23/23 11:40 [facility] [id number]) Manual Therapy Treatment Soft Tissue Mobilization Lumbar Paraspinals Body Location QL, Paraspinals Mobilization Type Sustained Pressure,Trigger Point Release Intensity/Depth Moderate Body Position Prone Cervical Paraspinals Body Location UT, Paraspinals, Scalenes, Levator Mobilization Type Sustained Pressure,Trigger Point Release Intensity/Depth Moderate Body Position Supine Joint Mobilizations Lumbar Joint L1-5 Direction P->A Grade III Body Position Prone PT-OP-T Assessment and Plan Start: 07/11/22 14:19 Freq: Status: Active Protocol: Document 01/23/23 11:07 DCW (Rec: 01/23/23 11:40 [facility] [id number]) Physical Therapy Assessment Impairments Impairments Balance,Functional Activities, Functional Mobility,Gait, Integument,Pain,Posture,ROM, Soft Tissue Mobility,Strength, Tone,Vestibular Goals Three Impairment Pt experiences dizziness with positional changes Market Reporter Goal (LTG) Pt to report no episodes of dizziness while lying in bed for one full week to improve sleep pattern LTG Duration Met Two Impairment Left cervical rotation limited to 26? Retirement Goal (LTG) Pt to increase left cervical rotation by at least 19? to 45 ? in order to improve ability to turn head to look for traffic while driving. LTG Duration 03/06/23 - Improving One Impairment Pt does not have an appropriate home exercise program Short Term Goal (STG) Pt to be independent and compliant with an appropriate HEP STG Duration 02/03/23 Assessment Summary Assessment Pt showing less overall paraspinal tone, able to move with less overall stiffness, improved ability to get off the treatment table today. Physical Therapy Plan Frequency and Duration Frequency of Treatment 2x/Week Plan of Care Start Date 01/04/23 Plan of Care End Date 03/06/23 Therapeutic Interventions Therapeutic Interventions Aquatic Therapy,Balance Training,Gait Training,Home Exercise Program,Joint Mobilizations,Manual Therapy, Neuromuscular Re-education, Patient/Caregiver Education, Self-Care/Home Management,Soft Tissue Mobilization, Therapeutic Activities, Therapeutic Exercises, Vestibular Rehabilitation Modalities Cold Pack/Ice Massage,Electric Stimulation,Hot Packs, Ultrasound Next Visit Focus/Plan Next Note Type Treatment Note Next Visit Plan Cervical and lumbar STM/ stretching, core strengthening
--- NOTE | 2023-01-25 11:44 | PT.OTN ---
Current Diagnoses Benign paroxysmal vertigo, unspecified ear (01/25/23) Stiffness of other specified joint, not elsewhere classified (01/25/23) Spinal stenosis, lumbar region with neurogenic claudication (01/25/23) Intervertebral disc disorders with myelopathy, thoracic region (01/25/23) Other intervertebral disc displacement, lumbar region (01/25/23) Other intervertebral disc degeneration, lumbar region (01/25/23) Cervicalgia (01/25/23) Physical Therapy Treatment Note PT-OP-A Visit Information Start: 07/11/22 14:19 Freq: Status: Active Protocol: Document 01/25/23 11:00 DCW (Rec: 01/25/23 11:43 DCW [id number]) Out-Patient Physical Therapy Visit Information Visit Information Visit Type Treatment Note Visit Start Time 11:00 Visit Stop Time 11:45 Total Visit Minutes 45 Visit Number 29 Number of WELL PULLER Visits 0 Evaluation Information Evaluation Date 07/11/22 PT-OP-B Current Condition Start: 07/11/22 14:19 Freq: Status: Active Protocol: Document 07/11/22 11:15 DCW (Rec: 07/11/22 17:44 DCW [id number]) Current Condition History of Current Condition Onset Date Long-standing history Current Complaints Dizziness, cervical pain, thoracic pain, lumbar pain History of Current Condition Pt is a 57 year old male very well known to this clinic presenting with a multitude of complaints and ailments. Pt was recently seen at this facility following ankle surgery ~1 year ago, after which he had a sudden onset of new autoimmune disease, which left him hospitalized for one month, greatly setting back his recovery for his ankle. Due to poor gait, repeatedly twisting his ankle, and multiple falls, pt began to have significant pain in his mid- and low-back, as well as his right hip. Additionally, pt has been complaining of ongoing dizziness for the past six months, typically with various head turns, lasting multiple minutes to half an hour. Pt has had multiple surgeries in the past, including, but not limited to, ankle surgery, cervical fusion (s/p ~10 years), and thoracic outlet syndrome surgery. Treatment Goals Patient/Caregiver Goals Improve mobility by decreasing back pain PT-OP-C Subjective Start: 07/11/22 14:19 Freq: Status: Active Protocol: Document 01/25/23 11:00 DCW (Rec: 01/25/23 11:43 DCW [id number]) OP-PT Subjective Patient Comments Patient Comments Pt walking in to the clinic today better than what he has been. Using SPC and much more upright. PT-OP-F Manual Assessment Start: 07/11/22 14:19 Freq: Status: Active Protocol: Document 01/04/23 14:00 DCW (Rec: 01/04/23 16:29 DCW [id number]) Manual Assessments Soft Tissue Assessment Soft Tissue Mobility Assessment Moderate tone with tenderness to palpation 2/4: Pain with wincing along bilateral cervical and lumbar paraspinals, upper trap, levator scap, SCM, and QL. Tenderness to palpation 1/4: Complaint of pain along thoracic paraspinals PT-OP-K Range of Motion Start: 07/11/22 14:19 Freq: Status: Active Protocol: Document 01/04/23 14:00 DCW (Rec: 01/04/23 16:29 DCW [id number]) Cervical Spine Range of Motion Cervical Spine Active Degrees Testing Position Sitting Flexion 45 Extension 30 Rotation Left 40 Rotation Right 51 Lateral Flexion Left 31 Lateral Flexion Right 22 ROM Limitations Soft Tissue Tightness, Contracture,Bony Restriction, Muscle Tone,Pain Lumbar Spine Range of Motion Lumbar Spine Active Degrees Testing Position Standing Flexion 40 Extension 18 ROM Limitations Soft Tissue Tightness, Contracture,Bony Restriction, Muscle Tone,Pain PT-OP-L Special Tests Start: 07/11/22 14:19 Freq: Status: Active Protocol: Document 01/04/23 14:00 DCW (Rec: 01/04/23 16:29 DCW [id number]) Special Tests Cervical Spine Special Tests Slump Test Results Negative Traction Test Results Mild pain relief Spurling's Test Test Results Positive R Passive Neck Flexion Test Results Negative Foraminal Compression Test Results Positive R Alar Ligament Test Results Negative PT-OP-O Vestibular Start: 07/11/22 14:19 Freq: Status: Active Protocol: Document 07/11/22 11:15 DCW (Rec: 07/11/22 14:23 DCW [id number]) Vestibular Assessment Screening Tests Vestibular Artery Screen Negative Sharp-Selena Test Negative Visual Testing Smooth Pursuits Horizontal WNL Smooth Pursuits Vertical WNL Saccades Horizontal WNL Saccades Vertical WNL Heave Test Positive Right Thrust Head Positive Right Positional Testing [place]-Hallpike Negative Left,Negative Right Rolling Test Negative Left,Negative Right Comments Vestibular Comments Pt reports vertigo/dizziness in all positions, worse with left-side dependent, but zero signs of nystagmus. Pt also has poor cervical extension and rotation, limiting proper positioning PT-OP-Q Treatments Start: 07/11/22 14:19 Freq: Status: Active Protocol: Document 01/25/23 11:00 DCW (Rec: 01/25/23 11:43 DCW [id number]) Manual Therapy Treatment Soft Tissue Mobilization Lumbar Paraspinals Body Location QL, Paraspinals Mobilization Type Sustained Pressure,Trigger Point Release Intensity/Depth Moderate Body Position Prone Cervical Paraspinals Body Location UT, Paraspinals, Scalenes, Levator Mobilization Type Sustained Pressure,Trigger Point Release Intensity/Depth Moderate Body Position Supine Joint Mobilizations Lumbar Joint L1-5 Direction P->A Grade III Body Position Prone PT-OP-T Assessment and Plan Start: 07/11/22 14:19 Freq: Status: Active Protocol: Document 01/25/23 11:00 DCW (Rec: 01/25/23 11:43 DCW [id number]) Physical Therapy Assessment Impairments Impairments Balance,Functional Activities, Functional Mobility,Gait, Integument,Pain,Posture,ROM, Soft Tissue Mobility,Strength, Tone,Vestibular Goals Three Impairment Pt experiences dizziness with positional changes Intermediate Goal (LTG) Pt to report no episodes of dizziness while lying in bed for one full week to improve sleep pattern LTG Duration Met Two Impairment Left cervical rotation limited to 26? Airport Operations Duty Manager Goal (LTG) Pt to increase left cervical rotation by at least 19? to 45 ? in order to improve ability to turn head to look for traffic while driving. LTG Duration 03/06/23 - Improving One Impairment Pt does not have an appropriate home exercise program Short Term Goal (STG) Pt to be independent and compliant with an appropriate HEP STG Duration 02/03/23 Assessment Summary Assessment Notable improvement in cervical/upper trap tone, increased lumbar paraspinal right-sided. Less ankle rolling recently, continue to focus on improving upright posture and decreasing tone. Physical Therapy Plan Frequency and Duration Frequency of Treatment 2x/Week Plan of Care Start Date 01/04/23 Plan of Care End Date 03/06/23 Therapeutic Interventions Therapeutic Interventions Aquatic Therapy,Balance Training,Gait Training,Home Exercise Program,Joint Mobilizations,Manual Therapy, Neuromuscular Re-education, Patient/Caregiver Education, Self-Care/Home Management,Soft Tissue Mobilization, Therapeutic Activities, Therapeutic Exercises, Vestibular Rehabilitation Modalities Cold Pack/Ice Massage,Electric Stimulation,Hot Packs, Ultrasound Next Visit Focus/Plan Next Note Type Treatment Note Next Visit Plan Cervical and lumbar STM/ stretching, core strengthening
--- NOTE | 2023-01-30 11:43 | PT.OTN ---
Current Diagnoses Benign paroxysmal vertigo, unspecified ear (01/30/23) Stiffness of other specified joint, not elsewhere classified (01/30/23) Spinal stenosis, lumbar region with neurogenic claudication (01/30/23) Intervertebral disc disorders with myelopathy, thoracic region (01/30/23) Other intervertebral disc displacement, lumbar region (01/30/23) Other intervertebral disc degeneration, lumbar region (01/30/23) Cervicalgia (01/30/23) Physical Therapy Treatment Note PT-OP-A Visit Information Start: 07/11/22 14:19 Freq: Status: Active Protocol: Document 01/30/23 11:00 DCW (Rec: 01/30/23 11:42 DCW [id number]) Out-Patient Physical Therapy Visit Information Visit Information Visit Type Treatment Note Visit Start Time 11:00 Visit Stop Time 11:45 Total Visit Minutes 45 Visit Number 30 Number of CUSHION STUFFER Visits 0 Evaluation Information Evaluation Date 07/11/22 PT-OP-B Current Condition Start: 07/11/22 14:19 Freq: Status: Active Protocol: Document 07/11/22 11:15 DCW (Rec: 07/11/22 17:44 DCW [id number]) Current Condition History of Current Condition Onset Date Long-standing history Current Complaints Dizziness, cervical pain, thoracic pain, lumbar pain History of Current Condition Pt is a 57 year old male very well known to this clinic presenting with a multitude of complaints and ailments. Pt was recently seen at this facility following ankle surgery ~1 year ago, after which he had a sudden onset of new autoimmune disease, which left him hospitalized for one month, greatly setting back his recovery for his ankle. Due to poor gait, repeatedly twisting his ankle, and multiple falls, pt began to have significant pain in his mid- and low-back, as well as his right hip. Additionally, pt has been complaining of ongoing dizziness for the past six months, typically with various head turns, lasting multiple minutes to half an hour. Pt has had multiple surgeries in the past, including, but not limited to, ankle surgery, cervical fusion (s/p ~10 years), and thoracic outlet syndrome surgery. Treatment Goals Patient/Caregiver Goals Improve mobility by decreasing back pain PT-OP-C Subjective Start: 07/11/22 14:19 Freq: Status: Active Protocol: Document 01/30/23 11:00 DCW (Rec: 01/30/23 11:42 DCW [id number]) OP-PT Subjective Patient Comments Patient Comments Pt reports things are a lot better than they were on Sunday, admitted he wasn't moving much due to soreness. PT-OP-F Manual Assessment Start: 07/11/22 14:19 Freq: Status: Active Protocol: Document 01/04/23 14:00 DCW (Rec: 01/04/23 16:29 DCW [id number]) Manual Assessments Soft Tissue Assessment Soft Tissue Mobility Assessment Moderate tone with tenderness to palpation 2/4: Pain with wincing along bilateral cervical and lumbar paraspinals, upper trap, levator scap, SCM, and QL. Tenderness to palpation 1/4: Complaint of pain along thoracic paraspinals PT-OP-K Range of Motion Start: 07/11/22 14:19 Freq: Status: Active Protocol: Document 01/04/23 14:00 DCW (Rec: 01/04/23 16:29 DCW [id number]) Cervical Spine Range of Motion Cervical Spine Active Degrees Testing Position Sitting Flexion 45 Extension 30 Rotation Left 40 Rotation Right 51 Lateral Flexion Left 31 Lateral Flexion Right 22 ROM Limitations Soft Tissue Tightness, Contracture,Bony Restriction, Muscle Tone,Pain Lumbar Spine Range of Motion Lumbar Spine Active Degrees Testing Position Standing Flexion 40 Extension 18 ROM Limitations Soft Tissue Tightness, Contracture,Bony Restriction, Muscle Tone,Pain PT-OP-L Special Tests Start: 07/11/22 14:19 Freq: Status: Active Protocol: Document 01/04/23 14:00 DCW (Rec: 01/04/23 16:29 DCW [id number]) Special Tests Cervical Spine Special Tests Slump Test Results Negative Traction Test Results Mild pain relief Spurling's Test Test Results Positive R Passive Neck Flexion Test Results Negative Foraminal Compression Test Results Positive R Alar Ligament Test Results Negative PT-OP-O Vestibular Start: 07/11/22 14:19 Freq: Status: Active Protocol: Document 07/11/22 11:15 DCW (Rec: 07/11/22 14:23 DCW [id number]) Vestibular Assessment Screening Tests Vestibular Artery Screen Negative Sharp-Selena Test Negative Visual Testing Smooth Pursuits Horizontal WNL Smooth Pursuits Vertical WNL Saccades Horizontal WNL Saccades Vertical WNL Heave Test Positive Right Thrust Head Positive Right Positional Testing [place]-Hallpike Negative Left,Negative Right Rolling Test Negative Left,Negative Right Comments Vestibular Comments Pt reports vertigo/dizziness in all positions, worse with left-side dependent, but zero signs of nystagmus. Pt also has poor cervical extension and rotation, limiting proper positioning PT-OP-Q Treatments Start: 07/11/22 14:19 Freq: Status: Active Protocol: Document 01/30/23 11:00 DCW (Rec: 01/30/23 11:42 DC [id number]) Manual Therapy Treatment Soft Tissue Mobilization Lumbar Paraspinals Body Location QL, Paraspinals Mobilization Type Sustained Pressure,Trigger Point Release Intensity/Depth Moderate Body Position Prone Cervical Paraspinals Body Location UT, Paraspinals, Scalenes, Levator Mobilization Type Sustained Pressure,Trigger Point Release Intensity/Depth Moderate Body Position Supine Joint Mobilizations Lumbar Joint L1-5 Direction P->A Grade III Body Position Prone PT-OP-T Assessment and Plan Start: 07/11/22 14:19 Freq: Status: Active Protocol: Document 01/30/23 11:00 DCW (Rec: 01/30/23 11:42 DCW [id number]) Physical Therapy Assessment Impairments Impairments Balance,Functional Activities, Functional Mobility,Gait, Integument,Pain,Posture,ROM, Soft Tissue Mobility,Strength, Tone,Vestibular Goals Three Impairment Pt experiences dizziness with positional changes Snf Goal (LTG) Pt to report no episodes of dizziness while lying in bed for one full week to improve sleep pattern LTG Duration Met Two Impairment Left cervical rotation limited to 26? Snf Goal (LTG) Pt to increase left cervical rotation by at least 19? to 45 ? in order to improve ability to turn head to look for traffic while driving. LTG Duration 03/06/23 - Improving One Impairment Pt does not have an appropriate home exercise program Short Term Goal (STG) Pt to be independent and compliant with an appropriate HEP STG Duration 02/03/23 Assessment Summary Assessment Left-sided paraspinal tone today, right feeling much better than last week. Physical Therapy Plan Frequency and Duration Frequency of Treatment 2x/Week Plan of Care Start Date 01/04/23 Plan of Care End Date 03/06/23 Therapeutic Interventions Therapeutic Interventions Aquatic Therapy,Balance Training,Gait Training,Home Exercise Program,Joint Mobilizations,Manual Therapy, Neuromuscular Re-education, Patient/Caregiver Education, Self-Care/Home Management,Soft Tissue Mobilization, Therapeutic Activities, Therapeutic Exercises, Vestibular Rehabilitation Modalities Cold Pack/Ice Massage,Electric Stimulation,Hot Packs, Ultrasound Next Visit Focus/Plan Next Note Type Treatment Note Next Visit Plan Cervical and lumbar STM/ stretching, core strengthening
--- NOTE | 2023-02-05 11:43 | PT.OTN ---
Current Diagnoses Benign paroxysmal vertigo, unspecified ear (02/05/23) Stiffness of other specified joint, not elsewhere classified (02/05/23) Spinal stenosis, lumbar region with neurogenic claudication (02/05/23) Intervertebral disc disorders with myelopathy, thoracic region (02/05/23) Other intervertebral disc displacement, lumbar region (02/05/23) Other intervertebral disc degeneration, lumbar region (02/05/23) Cervicalgia (02/05/23) Physical Therapy Treatment Note PT-OP-A Visit Information Start: 07/11/22 14:19 Freq: Status: Active Protocol: Document 02/05/23 11:03 DCW (Rec: 02/05/23 11:43 DCW [id number]) Out-Patient Physical Therapy Visit Information Visit Information Visit Type Treatment Note Visit Start Time 11:03 Visit Stop Time 11:45 Total Visit Minutes 42 Visit Number 31 Number of MECHANIC Visits 0 Evaluation Information Evaluation Date 07/11/22 PT-OP-B Current Condition Start: 07/11/22 14:19 Freq: Status: Active Protocol: Document 07/11/22 11:15 DCW (Rec: 07/11/22 17:44 DCW [id number]) Current Condition History of Current Condition Onset Date Long-standing history Current Complaints Dizziness, cervical pain, thoracic pain, lumbar pain History of Current Condition Pt is a 57 year old male very well known to this clinic presenting with a multitude of complaints and ailments. Pt was recently seen at this facility following ankle surgery ~1 year ago, after which he had a sudden onset of new autoimmune disease, which left him hospitalized for one month, greatly setting back his recovery for his ankle. Due to poor gait, repeatedly twisting his ankle, and multiple falls, pt began to have significant pain in his mid- and low-back, as well as his right hip. Additionally, pt has been complaining of ongoing dizziness for the past six months, typically with various head turns, lasting multiple minutes to half an hour. Pt has had multiple surgeries in the past, including, but not limited to, ankle surgery, cervical fusion (s/p ~10 years), and thoracic outlet syndrome surgery. Treatment Goals Patient/Caregiver Goals Improve mobility by decreasing back pain PT-OP-C Subjective Start: 07/11/22 14:19 Freq: Status: Active Protocol: Document 02/05/23 11:03 DCW (Rec: 02/05/23 11:43 DCW [id number]) OP-PT Subjective Patient Comments Patient Comments Excited to be here today. PT-OP-F Manual Assessment Start: 07/11/22 14:19 Freq: Status: Active Protocol: Document 01/04/23 14:00 DCW (Rec: 01/04/23 16:29 DCW [id number]) Manual Assessments Soft Tissue Assessment Soft Tissue Mobility Assessment Moderate tone with tenderness to palpation 2/4: Pain with wincing along bilateral cervical and lumbar paraspinals, upper trap, levator scap, SCM, and QL. Tenderness to palpation 1/4: Complaint of pain along thoracic paraspinals PT-OP-K Range of Motion Start: 07/11/22 14:19 Freq: Status: Active Protocol: Document 01/04/23 14:00 DCW (Rec: 01/04/23 16:29 DCW [id number]) Cervical Spine Range of Motion Cervical Spine Active Degrees Testing Position Sitting Flexion 45 Extension 30 Rotation Left 40 Rotation Right 51 Lateral Flexion Left 31 Lateral Flexion Right 22 ROM Limitations Soft Tissue Tightness, Contracture,Bony Restriction, Muscle Tone,Pain Lumbar Spine Range of Motion Lumbar Spine Active Degrees Testing Position Standing Flexion 40 Extension 18 ROM Limitations Soft Tissue Tightness, Contracture,Bony Restriction, Muscle Tone,Pain PT-OP-L Special Tests Start: 07/11/22 14:19 Freq: Status: Active Protocol: Document 01/04/23 14:00 DCW (Rec: 01/04/23 16:29 DCW [id number]) Special Tests Cervical Spine Special Tests Slump Test Results Negative Traction Test Results Mild pain relief Spurling's Test Test Results Positive R Passive Neck Flexion Test Results Negative Foraminal Compression Test Results Positive R Alar Ligament Test Results Negative PT-OP-O Vestibular Start: 07/11/22 14:19 Freq: Status: Active Protocol: Document 07/11/22 11:15 DCW (Rec: 07/11/22 14:23 DCW [id number]) Vestibular Assessment Screening Tests Vestibular Artery Screen Negative Sharp-Selena Test Negative Visual Testing Smooth Pursuits Horizontal WNL Smooth Pursuits Vertical WNL Saccades Horizontal WNL Saccades Vertical WNL Heave Test Positive Right Thrust Head Positive Right Positional Testing [place]-Hallpike Negative Left,Negative Right Rolling Test Negative Left,Negative Right Comments Vestibular Comments Pt reports vertigo/dizziness in all positions, worse with left-side dependent, but zero signs of nystagmus. Pt also has poor cervical extension and rotation, limiting proper positioning PT-OP-Q Treatments Start: 07/11/22 14:19 Freq: Status: Active Protocol: Document 02/05/23 11:03 DCW (Rec: 02/05/23 11:43 DCW [id number]) Manual Therapy Treatment Soft Tissue Mobilization Lumbar Paraspinals Body Location QL, Paraspinals Mobilization Type Sustained Pressure,Trigger Point Release Intensity/Depth Moderate Body Position Prone Cervical Paraspinals Body Location UT, Paraspinals, Scalenes, Levator Mobilization Type Sustained Pressure,Trigger Point Release Intensity/Depth Moderate Body Position Supine Joint Mobilizations Lumbar Joint L1-5 Direction P->A Grade III Body Position Prone PT-OP-T Assessment and Plan Start: 07/11/22 14:19 Freq: Status: Active Protocol: Document 02/05/23 11:03 DCW (Rec: 02/05/23 11:43 DCW [id number]) Physical Therapy Assessment Impairments Impairments Balance,Functional Activities, Functional Mobility,Gait, Integument,Pain,Posture,ROM, Soft Tissue Mobility,Strength, Tone,Vestibular Goals Three Impairment Pt experiences dizziness with positional changes Jail Goal (LTG) Pt to report no episodes of dizziness while lying in bed for one full week to improve sleep pattern LTG Duration Met Two Impairment Left cervical rotation limited to 26? Jail Goal (LTG) Pt to increase left cervical rotation by at least 19? to 45 ? in order to improve ability to turn head to look for traffic while driving. LTG Duration 03/06/23 - Improving One Impairment Pt does not have an appropriate home exercise program Short Term Goal (STG) Pt to be independent and compliant with an appropriate HEP STG Duration 02/03/23 Assessment Summary Assessment Pt appears to be benefitting from recent steroid injection, improved bilateral tone along low back musculature, able to demonstrate improved gait throughout clinic today. Physical Therapy Plan Frequency and Duration Frequency of Treatment 2x/Week Plan of Care Start Date 01/04/23 Plan of Care End Date 03/06/23 Therapeutic Interventions Therapeutic Interventions Aquatic Therapy,Balance Training,Gait Training,Home Exercise Program,Joint Mobilizations,Manual Therapy, Neuromuscular Re-education, Patient/Caregiver Education, Self-Care/Home Management,Soft Tissue Mobilization, Therapeutic Activities, Therapeutic Exercises, Vestibular Rehabilitation Modalities Cold Pack/Ice Massage,Electric Stimulation,Hot Packs, Ultrasound Next Visit Focus/Plan Next Note Type Treatment Note Next Visit Plan Cervical and lumbar STM/ stretching, core strengthening
--- NOTE | 2023-02-08 11:44 | PT.OTN ---
Current Diagnoses Benign paroxysmal vertigo, unspecified ear (02/08/23) Stiffness of other specified joint, not elsewhere classified (02/08/23) Spinal stenosis, lumbar region with neurogenic claudication (02/08/23) Intervertebral disc disorders with myelopathy, thoracic region (02/08/23) Other intervertebral disc displacement, lumbar region (02/08/23) Other intervertebral disc degeneration, lumbar region (02/08/23) Cervicalgia (02/08/23) Physical Therapy Treatment Note PT-OP-A Visit Information Start: 07/11/22 14:19 Freq: Status: Active Protocol: Document 02/08/23 11:07 DCW (Rec: 02/08/23 11:44 DCW [id number]) Out-Patient Physical Therapy Visit Information Visit Information Visit Type Treatment Note Visit Start Time 11:07 Visit Stop Time 11:45 Total Visit Minutes 38 Visit Number 32 Number of SOAKING PITS SUPERVISOR Visits 0 Evaluation Information Evaluation Date 07/11/22 PT-OP-B Current Condition Start: 07/11/22 14:19 Freq: Status: Active Protocol: Document 07/11/22 11:15 DCW (Rec: 07/11/22 17:44 DCW [id number]) Current Condition History of Current Condition Onset Date Long-standing history Current Complaints Dizziness, cervical pain, thoracic pain, lumbar pain History of Current Condition Pt is a 57 year old male very well known to this clinic presenting with a multitude of complaints and ailments. Pt was recently seen at this facility following ankle surgery ~1 year ago, after which he had a sudden onset of new autoimmune disease, which left him hospitalized for one month, greatly setting back his recovery for his ankle. Due to poor gait, repeatedly twisting his ankle, and multiple falls, pt began to have significant pain in his mid- and low-back, as well as his right hip. Additionally, pt has been complaining of ongoing dizziness for the past six months, typically with various head turns, lasting multiple minutes to half an hour. Pt has had multiple surgeries in the past, including, but not limited to, ankle surgery, cervical fusion (s/p ~10 years), and thoracic outlet syndrome surgery. Treatment Goals Patient/Caregiver Goals Improve mobility by decreasing back pain PT-OP-C Subjective Start: 07/11/22 14:19 Freq: Status: Active Protocol: Document 02/08/23 11:07 DCW (Rec: 02/08/23 11:44 DCW [id number]) OP-PT Subjective Patient Comments Patient Comments I'm pretty sore, I don't know what I did between Sunday and today. PT-OP-F Manual Assessment Start: 07/11/22 14:19 Freq: Status: Active Protocol: Document 01/04/23 14:00 DCW (Rec: 01/04/23 16:29 DCW [id number]) Manual Assessments Soft Tissue Assessment Soft Tissue Mobility Assessment Moderate tone with tenderness to palpation 2/4: Pain with wincing along bilateral cervical and lumbar paraspinals, upper trap, levator scap, SCM, and QL. Tenderness to palpation 1/4: Complaint of pain along thoracic paraspinals PT-OP-K Range of Motion Start: 07/11/22 14:19 Freq: Status: Active Protocol: Document 01/04/23 14:00 DCW (Rec: 01/04/23 16:29 DCW [id number]) Cervical Spine Range of Motion Cervical Spine Active Degrees Testing Position Sitting Flexion 45 Extension 30 Rotation Left 40 Rotation Right 51 Lateral Flexion Left 31 Lateral Flexion Right 22 ROM Limitations Soft Tissue Tightness, Contracture,Bony Restriction, Muscle Tone,Pain Lumbar Spine Range of Motion Lumbar Spine Active Degrees Testing Position Standing Flexion 40 Extension 18 ROM Limitations Soft Tissue Tightness, Contracture,Bony Restriction, Muscle Tone,Pain PT-OP-L Special Tests Start: 07/11/22 14:19 Freq: Status: Active Protocol: Document 01/04/23 14:00 DCW (Rec: 01/04/23 16:29 DCW [id number]) Special Tests Cervical Spine Special Tests Slump Test Results Negative Traction Test Results Mild pain relief Spurling's Test Test Results Positive R Passive Neck Flexion Test Results Negative Foraminal Compression Test Results Positive R Alar Ligament Test Results Negative PT-OP-O Vestibular Start: 07/11/22 14:19 Freq: Status: Active Protocol: Document 07/11/22 11:15 DCW (Rec: 07/11/22 14:23 DCW [id number]) Vestibular Assessment Screening Tests Vestibular Artery Screen Negative Sharp-Selena Test Negative Visual Testing Smooth Pursuits Horizontal WNL Smooth Pursuits Vertical WNL Saccades Horizontal WNL Saccades Vertical WNL Heave Test Positive Right Thrust Head Positive Right Positional Testing Samantha-Hallpike Negative Left,Negative Right Rolling Test Negative Left,Negative Right Comments Vestibular Comments Pt reports vertigo/dizziness in all positions, worse with left-side dependent, but zero signs of nystagmus. Pt also has poor cervical extension and rotation, limiting proper positioning PT-OP-Q Treatments Start: 07/11/22 14:19 Freq: Status: Active Protocol: Document 02/08/23 11:07 DCW (Rec: 02/08/23 11:44 DC [id number]) Manual Therapy Treatment Soft Tissue Mobilization Lumbar Paraspinals Body Location QL, Paraspinals Mobilization Type Sustained Pressure,Trigger Point Release Intensity/Depth Moderate Body Position Prone Cervical Paraspinals Body Location UT, Paraspinals, Scalenes, Levator Mobilization Type Sustained Pressure,Trigger Point Release Intensity/Depth Moderate Body Position Supine Joint Mobilizations Lumbar Joint L1-5 Direction P->A Grade III Body Position Prone PT-OP-T Assessment and Plan Start: 07/11/22 14:19 Freq: Status: Active Protocol: Document 02/08/23 11:07 DCW (Rec: 02/08/23 11:44 DC [id number]) Physical Therapy Assessment Impairments Impairments Balance,Functional Activities, Functional Mobility,Gait, Integument,Pain,Posture,ROM, Soft Tissue Mobility,Strength, Tone,Vestibular Goals Three Impairment Pt experiences dizziness with positional changes Half-Way Goal (LTG) Pt to report no episodes of dizziness while lying in bed for one full week to improve sleep pattern LTG Duration Met Two Impairment Left cervical rotation limited to 26? Half-Way Goal (LTG) Pt to increase left cervical rotation by at least 19? to 45 ? in order to improve ability to turn head to look for traffic while driving. LTG Duration 03/06/23 - Improving One Impairment Pt does not have an appropriate home exercise program Short Term Goal (STG) Pt to be independent and compliant with an appropriate HEP STG Duration 02/03/23 Assessment Summary Assessment Pt tolerated treatment well today, able to walk out of the clinic standing upright, minimal reliance on SPC. Physical Therapy Plan Frequency and Duration Frequency of Treatment 2x/Week Plan of Care Start Date 01/04/23 Plan of Care End Date 03/06/23 Therapeutic Interventions Therapeutic Interventions Aquatic Therapy,Balance Training,Gait Training,Home Exercise Program,Joint Mobilizations,Manual Therapy, Neuromuscular Re-education, Patient/Caregiver Education, Self-Care/Home Management,Soft Tissue Mobilization, Therapeutic Activities, Therapeutic Exercises, Vestibular Rehabilitation Modalities Cold Pack/Ice Massage,Electric Stimulation,Hot Packs, Ultrasound Next Visit Focus/Plan Next Note Type Treatment Note Next Visit Plan Cervical and lumbar STM/ stretching, core strengthening
--- NOTE | 2023-02-19 17:13 | PT.OTN ---
Current Diagnoses Benign paroxysmal vertigo, unspecified ear (02/19/23) Stiffness of other specified joint, not elsewhere classified (02/19/23) Spinal stenosis, lumbar region with neurogenic claudication (02/19/23) Intervertebral disc disorders with myelopathy, thoracic region (02/19/23) Other intervertebral disc displacement, lumbar region (02/19/23) Other intervertebral disc degeneration, lumbar region (02/19/23) Cervicalgia (02/19/23) Physical Therapy Treatment Note PT-OP-A Visit Information Start: 07/11/22 14:19 Freq: Status: Active Protocol: Document 02/19/23 16:33 DCW (Rec: 02/19/23 17:12 DCW [id number]) Out-Patient Physical Therapy Visit Information Visit Information Visit Type Treatment Note Visit Start Time 16:33 Visit Stop Time 17:15 Total Visit Minutes 42 Visit Number 33 Number of PAEDIATRIC THORACIC PHYSICIAN Visits 0 Evaluation Information Evaluation Date 07/11/22 PT-OP-B Current Condition Start: 07/11/22 14:19 Freq: Status: Active Protocol: Document 07/11/22 11:15 DCW (Rec: 07/11/22 17:44 DCW [id number]) Current Condition History of Current Condition Onset Date Long-standing history Current Complaints Dizziness, cervical pain, thoracic pain, lumbar pain History of Current Condition Pt is a 57 year old male very well known to this clinic presenting with a multitude of complaints and ailments. Pt was recently seen at this facility following ankle surgery ~1 year ago, after which he had a sudden onset of new autoimmune disease, which left him hospitalized for one month, greatly setting back his recovery for his ankle. Due to poor gait, repeatedly twisting his ankle, and multiple falls, pt began to have significant pain in his mid- and low-back, as well as his right hip. Additionally, pt has been complaining of ongoing dizziness for the past six months, typically with various head turns, lasting multiple minutes to half an hour. Pt has had multiple surgeries in the past, including, but not limited to, ankle surgery, cervical fusion (s/p ~10 years), and thoracic outlet syndrome surgery. Treatment Goals Patient/Caregiver Goals Improve mobility by decreasing back pain PT-OP-C Subjective Start: 07/11/22 14:19 Freq: Status: Active Protocol: Document 02/19/23 16:33 DCW (Rec: 02/19/23 17:12 DCW [id number]) OP-PT Subjective Patient Comments Patient Comments Pt reports he is feeling pretty good today, had a good trip up through [place]. PT-OP-F Manual Assessment Start: 07/11/22 14:19 Freq: Status: Active Protocol: Document 01/04/23 14:00 DCW (Rec: 01/04/23 16:29 DCW [id number]) Manual Assessments Soft Tissue Assessment Soft Tissue Mobility Assessment Moderate tone with tenderness to palpation 2/4: Pain with wincing along bilateral cervical and lumbar paraspinals, upper trap, levator scap, SCM, and QL. Tenderness to palpation 1/4: Complaint of pain along thoracic paraspinals PT-OP-K Range of Motion Start: 07/11/22 14:19 Freq: Status: Active Protocol: Document 01/04/23 14:00 DCW (Rec: 01/04/23 16:29 DCW [id number]) Cervical Spine Range of Motion Cervical Spine Active Degrees Testing Position Sitting Flexion 45 Extension 30 Rotation Left 40 Rotation Right 51 Lateral Flexion Left 31 Lateral Flexion Right 22 ROM Limitations Soft Tissue Tightness, Contracture,Bony Restriction, Muscle Tone,Pain Lumbar Spine Range of Motion Lumbar Spine Active Degrees Testing Position Standing Flexion 40 Extension 18 ROM Limitations Soft Tissue Tightness, Contracture,Bony Restriction, Muscle Tone,Pain PT-OP-L Special Tests Start: 07/11/22 14:19 Freq: Status: Active Protocol: Document 01/04/23 14:00 DCW (Rec: 01/04/23 16:29 DCW [id number]) Special Tests Cervical Spine Special Tests Slump Test Results Negative Traction Test Results Mild pain relief Spurling's Test Test Results Positive R Passive Neck Flexion Test Results Negative Foraminal Compression Test Results Positive R Alar Ligament Test Results Negative PT-OP-O Vestibular Start: 07/11/22 14:19 Freq: Status: Active Protocol: Document 07/11/22 11:15 DCW (Rec: 07/11/22 14:23 DCW [id number]) Vestibular Assessment Screening Tests Vestibular Artery Screen Negative Sharp-Selena Test Negative Visual Testing Smooth Pursuits Horizontal WNL Smooth Pursuits Vertical WNL Saccades Horizontal WNL Saccades Vertical WNL Heave Test Positive Right Thrust Head Positive Right Positional Testing Samantha-Hallpike Negative Left,Negative Right Rolling Test Negative Left,Negative Right Comments Vestibular Comments Pt reports vertigo/dizziness in all positions, worse with left-side dependent, but zero signs of nystagmus. Pt also has poor cervical extension and rotation, limiting proper positioning PT-OP-Q Treatments Start: 07/11/22 14:19 Freq: Status: Active Protocol: Document 02/19/23 16:33 DCW (Rec: 02/19/23 17:12 DCW [id number]) Manual Therapy Treatment Soft Tissue Mobilization Lumbar Paraspinals Body Location QL, Paraspinals Mobilization Type Sustained Pressure,Trigger Point Release Intensity/Depth Moderate Body Position Prone Cervical Paraspinals Body Location UT, Paraspinals, Scalenes, Levator Mobilization Type Sustained Pressure,Trigger Point Release Intensity/Depth Moderate Body Position Supine Joint Mobilizations Lumbar Joint L1-5 Direction P->A Grade III Body Position Prone PT-OP-T Assessment and Plan Start: 07/11/22 14:19 Freq: Status: Active Protocol: Document 02/19/23 16:33 DCW (Rec: 02/19/23 17:12 DCW [id number]) Physical Therapy Assessment Impairments Impairments Balance,Functional Activities, Functional Mobility,Gait, Integument,Pain,Posture,ROM, Soft Tissue Mobility,Strength, Tone,Vestibular Goals Three Impairment Pt experiences dizziness with positional changes Video Game Script Writer Goal (LTG) Pt to report no episodes of dizziness while lying in bed for one full week to improve sleep pattern LTG Duration Met Two Impairment Left cervical rotation limited to 26? Long-Term Goal (LTG) Pt to increase left cervical rotation by at least 19? to 45 ? in order to improve ability to turn head to look for traffic while driving. LTG Duration 03/06/23 - Improving One Impairment Pt does not have an appropriate home exercise program Short Term Goal (STG) Pt to be independent and compliant with an appropriate HEP STG Duration 02/03/23 Assessment Summary Assessment Pt overall much better today, significantly decreased overall tone throughout low back, right cervical/UT tone still present but responded well to treatment. Physical Therapy Plan Frequency and Duration Frequency of Treatment 2x/Week Plan of Care Start Date 01/04/23 Plan of Care End Date 03/06/23 Therapeutic Interventions Therapeutic Interventions Aquatic Therapy,Balance Training,Gait Training,Home Exercise Program,Joint Mobilizations,Manual Therapy, Neuromuscular Re-education, Patient/Caregiver Education, Self-Care/Home Management,Soft Tissue Mobilization, Therapeutic Activities, Therapeutic Exercises, Vestibular Rehabilitation Modalities Cold Pack/Ice Massage,Electric Stimulation,Hot Packs, Ultrasound Next Visit Focus/Plan Next Note Type Treatment Note Next Visit Plan Cervical and lumbar STM/ stretching, core strengthening
--- NOTE | 2023-02-23 16:50 | PT.OTN ---
Current Diagnoses Benign paroxysmal vertigo, unspecified ear (02/23/23) Stiffness of other specified joint, not elsewhere classified (02/23/23) Spinal stenosis, lumbar region with neurogenic claudication (02/23/23) Intervertebral disc disorders with myelopathy, thoracic region (02/23/23) Other intervertebral disc displacement, lumbar region (02/23/23) Other intervertebral disc degeneration, lumbar region (02/23/23) Cervicalgia (02/23/23) Physical Therapy Treatment Note PT-OP-A Visit Information Start: 07/11/22 14:19 Freq: Status: Active Protocol: Document 02/23/23 16:00 DCW (Rec: 02/23/23 16:50 DCW [id number]) Out-Patient Physical Therapy Visit Information Visit Information Visit Type Treatment Note Visit Start Time 16:30 Visit Stop Time 17:15 Total Visit Minutes 45 Visit Number 34 Number of SENIOR MANAGER Visits 0 Evaluation Information Evaluation Date 07/11/22 PT-OP-B Current Condition Start: 07/11/22 14:19 Freq: Status: Active Protocol: Document 07/11/22 11:15 DCW (Rec: 07/11/22 17:44 DCW [id number]) Current Condition History of Current Condition Onset Date Long-standing history Current Complaints Dizziness, cervical pain, thoracic pain, lumbar pain History of Current Condition Pt is a 57 year old male very well known to this clinic presenting with a multitude of complaints and ailments. Pt was recently seen at this facility following ankle surgery ~1 year ago, after which he had a sudden onset of new autoimmune disease, which left him hospitalized for one month, greatly setting back his recovery for his ankle. Due to poor gait, repeatedly twisting his ankle, and multiple falls, pt began to have significant pain in his mid- and low-back, as well as his right hip. Additionally, pt has been complaining of ongoing dizziness for the past six months, typically with various head turns, lasting multiple minutes to half an hour. Pt has had multiple surgeries in the past, including, but not limited to, ankle surgery, cervical fusion (s/p ~10 years), and thoracic outlet syndrome surgery. Treatment Goals Patient/Caregiver Goals Improve mobility by decreasing back pain PT-OP-C Subjective Start: 07/11/22 14:19 Freq: Status: Active Protocol: Document 02/23/23 16:00 DCW (Rec: 02/23/23 16:50 DCW [id number]) OP-PT Subjective Patient Comments Patient Comments Pt once again wearing his ankle brace, feeling more stable. PT-OP-F Manual Assessment Start: 07/11/22 14:19 Freq: Status: Active Protocol: Document 01/04/23 14:00 DCW (Rec: 01/04/23 16:29 DCW [id number]) Manual Assessments Soft Tissue Assessment Soft Tissue Mobility Assessment Moderate tone with tenderness to palpation 2/4: Pain with wincing along bilateral cervical and lumbar paraspinals, upper trap, levator scap, SCM, and QL. Tenderness to palpation 1/4: Complaint of pain along thoracic paraspinals PT-OP-K Range of Motion Start: 07/11/22 14:19 Freq: Status: Active Protocol: Document 01/04/23 14:00 DCW (Rec: 01/04/23 16:29 DCW [id number]) Cervical Spine Range of Motion Cervical Spine Active Degrees Testing Position Sitting Flexion 45 Extension 30 Rotation Left 40 Rotation Right 51 Lateral Flexion Left 31 Lateral Flexion Right 22 ROM Limitations Soft Tissue Tightness, Contracture,Bony Restriction, Muscle Tone,Pain Lumbar Spine Range of Motion Lumbar Spine Active Degrees Testing Position Standing Flexion 40 Extension 18 ROM Limitations Soft Tissue Tightness, Contracture,Bony Restriction, Muscle Tone,Pain PT-OP-L Special Tests Start: 07/11/22 14:19 Freq: Status: Active Protocol: Document 01/04/23 14:00 DCW (Rec: 01/04/23 16:29 DCW [id number]) Special Tests Cervical Spine Special Tests Slump Test Results Negative Traction Test Results Mild pain relief Spurling's Test Test Results Positive R Passive Neck Flexion Test Results Negative Foraminal Compression Test Results Positive R Alar Ligament Test Results Negative PT-OP-O Vestibular Start: 07/11/22 14:19 Freq: Status: Active Protocol: Document 07/11/22 11:15 DCW (Rec: 07/11/22 14:23 DCW [id number]) Vestibular Assessment Screening Tests Vestibular Artery Screen Negative Sharp-Selena Test Negative Visual Testing Smooth Pursuits Horizontal WNL Smooth Pursuits Vertical WNL Saccades Horizontal WNL Saccades Vertical WNL Heave Test Positive Right Thrust Head Positive Right Positional Testing Samantha-Hallpike Negative Left,Negative Right Rolling Test Negative Left,Negative Right Comments Vestibular Comments Pt reports vertigo/dizziness in all positions, worse with left-side dependent, but zero signs of nystagmus. Pt also has poor cervical extension and rotation, limiting proper positioning PT-OP-Q Treatments Start: 07/11/22 14:19 Freq: Status: Active Protocol: Document 02/23/23 16:00 DCW (Rec: 02/23/23 16:50 DCW [id number]) Manual Therapy Treatment Soft Tissue Mobilization Lumbar Paraspinals Body Location QL, Paraspinals Mobilization Type Sustained Pressure,Trigger Point Release Intensity/Depth Moderate Body Position Prone Cervical Paraspinals Body Location UT, Paraspinals, Scalenes, Levator Mobilization Type Sustained Pressure,Trigger Point Release Intensity/Depth Moderate Body Position Supine Joint Mobilizations Lumbar Joint L1-5 Direction P->A Grade III Body Position Prone PT-OP-T Assessment and Plan Start: 07/11/22 14:19 Freq: Status: Active Protocol: Document 02/23/23 16:00 DCW (Rec: 02/23/23 16:50 DCW [id number]) Physical Therapy Assessment Impairments Impairments Balance,Functional Activities, Functional Mobility,Gait, Integument,Pain,Posture,ROM, Soft Tissue Mobility,Strength, Tone,Vestibular Goals Three Impairment Pt experiences dizziness with positional changes Forensic Technician Goal (LTG) Pt to report no episodes of dizziness while lying in bed for one full week to improve sleep pattern LTG Duration Met Two Impairment Left cervical rotation limited to 26? Forensic Technician Goal (LTG) Pt to increase left cervical rotation by at least 19? to 45 ? in order to improve ability to turn head to look for traffic while driving. LTG Duration 03/06/23 - Improving One Impairment Pt does not have an appropriate home exercise program Short Term Goal (STG) Pt to be independent and compliant with an appropriate HEP STG Duration 02/03/23 Assessment Summary Assessment Pt continues to demonstrate good improvement with overall tone and mobility. Slightly increased tenderness in left UT, but R UT and low back both significantly better than they have been the past few weeks. Physical Therapy Plan Frequency and Duration Frequency of Treatment 2x/Week Plan of Care Start Date 01/04/23 Plan of Care End Date 03/06/23 Therapeutic Interventions Therapeutic Interventions Aquatic Therapy,Balance Training,Gait Training,Home Exercise Program,Joint Mobilizations,Manual Therapy, Neuromuscular Re-education, Patient/Caregiver Education, Self-Care/Home Management,Soft Tissue Mobilization, Therapeutic Activities, Therapeutic Exercises, Vestibular Rehabilitation Modalities Cold Pack/Ice Massage,Electric Stimulation,Hot Packs, Ultrasound Next Visit Focus/Plan Next Note Type Treatment Note Next Visit Plan Cervical and lumbar STM/ stretching, core strengthening
--- NOTE | 2023-02-26 15:29 | PT.OTN ---
Current Diagnoses Benign paroxysmal vertigo, unspecified ear (02/26/23) Stiffness of other specified joint, not elsewhere classified (02/26/23) Spinal stenosis, lumbar region with neurogenic claudication (02/26/23) Intervertebral disc disorders with myelopathy, thoracic region (02/26/23) Other intervertebral disc displacement, lumbar region (02/26/23) Other intervertebral disc degeneration, lumbar region (02/26/23) Cervicalgia (02/26/23) Physical Therapy Treatment Note PT-OP-A Visit Information Start: 07/11/22 14:19 Freq: Status: Active Protocol: Document 02/26/23 14:45 DCW (Rec: 02/26/23 15:29 DCW [id number]) Out-Patient Physical Therapy Visit Information Visit Information Visit Type Treatment Note Visit Start Time 14:45 Visit Stop Time 15:30 Total Visit Minutes 45 Visit Number 35 Number of AUTOMATION CONTROL INTEGRATOR Visits 0 Evaluation Information Evaluation Date 07/11/22 PT-OP-B Current Condition Start: 07/11/22 14:19 Freq: Status: Active Protocol: Document 07/11/22 11:15 DCW (Rec: 07/11/22 17:44 DCW [id number]) Current Condition History of Current Condition Onset Date Long-standing history Current Complaints Dizziness, cervical pain, thoracic pain, lumbar pain History of Current Condition Pt is a 57 year old male very well known to this clinic presenting with a multitude of complaints and ailments. Pt was recently seen at this facility following ankle surgery ~1 year ago, after which he had a sudden onset of new autoimmune disease, which left him hospitalized for one month, greatly setting back his recovery for his ankle. Due to poor gait, repeatedly twisting his ankle, and multiple falls, pt began to have significant pain in his mid- and low-back, as well as his right hip. Additionally, pt has been complaining of ongoing dizziness for the past six months, typically with various head turns, lasting multiple minutes to half an hour. Pt has had multiple surgeries in the past, including, but not limited to, ankle surgery, cervical fusion (s/p ~10 years), and thoracic outlet syndrome surgery. Treatment Goals Patient/Caregiver Goals Improve mobility by decreasing back pain PT-OP-C Subjective Start: 07/11/22 14:19 Freq: Status: Active Protocol: Document 02/26/23 14:45 DCW (Rec: 02/26/23 15:29 DCW [id number]) OP-PT Subjective Patient Comments Patient Comments I've had highs and lows. PT-OP-F Manual Assessment Start: 07/11/22 14:19 Freq: Status: Active Protocol: Document 01/04/23 14:00 DCW (Rec: 01/04/23 16:29 DCW [id number]) Manual Assessments Soft Tissue Assessment Soft Tissue Mobility Assessment Moderate tone with tenderness to palpation 2/4: Pain with wincing along bilateral cervical and lumbar paraspinals, upper trap, levator scap, SCM, and QL. Tenderness to palpation 1/4: Complaint of pain along thoracic paraspinals PT-OP-K Range of Motion Start: 07/11/22 14:19 Freq: Status: Active Protocol: Document 01/04/23 14:00 DCW (Rec: 01/04/23 16:29 DCW [id number]) Cervical Spine Range of Motion Cervical Spine Active Degrees Testing Position Sitting Flexion 45 Extension 30 Rotation Left 40 Rotation Right 51 Lateral Flexion Left 31 Lateral Flexion Right 22 ROM Limitations Soft Tissue Tightness, Contracture,Bony Restriction, Muscle Tone,Pain Lumbar Spine Range of Motion Lumbar Spine Active Degrees Testing Position Standing Flexion 40 Extension 18 ROM Limitations Soft Tissue Tightness, Contracture,Bony Restriction, Muscle Tone,Pain PT-OP-L Special Tests Start: 07/11/22 14:19 Freq: Status: Active Protocol: Document 01/04/23 14:00 DCW (Rec: 01/04/23 16:29 DCW [id number]) Special Tests Cervical Spine Special Tests Slump Test Results Negative Traction Test Results Mild pain relief Spurling's Test Test Results Positive R Passive Neck Flexion Test Results Negative Foraminal Compression Test Results Positive R Alar Ligament Test Results Negative PT-OP-O Vestibular Start: 07/11/22 14:19 Freq: Status: Active Protocol: Document 07/11/22 11:15 DCW (Rec: 07/11/22 14:23 DCW [id number]) Vestibular Assessment Screening Tests Vestibular Artery Screen Negative Sharp-Selena Test Negative Visual Testing Smooth Pursuits Horizontal WNL Smooth Pursuits Vertical WNL Saccades Horizontal WNL Saccades Vertical WNL Heave Test Positive Right Thrust Head Positive Right Positional Testing Samantha-Hallpike Negative Left,Negative Right Rolling Test Negative Left,Negative Right Comments Vestibular Comments Pt reports vertigo/dizziness in all positions, worse with left-side dependent, but zero signs of nystagmus. Pt also has poor cervical extension and rotation, limiting proper positioning PT-OP-Q Treatments Start: 07/11/22 14:19 Freq: Status: Active Protocol: Document 02/26/23 14:45 DCW (Rec: 02/26/23 15:29 DCW [id number]) Manual Therapy Treatment Soft Tissue Mobilization Lumbar Paraspinals Body Location QL, Paraspinals Mobilization Type Sustained Pressure,Trigger Point Release Intensity/Depth Moderate Body Position Prone Cervical Paraspinals Body Location UT, Paraspinals, Scalenes, Levator Mobilization Type Sustained Pressure,Trigger Point Release Intensity/Depth Moderate Body Position Supine Joint Mobilizations Lumbar Joint L1-5 Direction P->A Grade III Body Position Prone PT-OP-T Assessment and Plan Start: 07/11/22 14:19 Freq: Status: Active Protocol: Document 02/26/23 14:45 DCW (Rec: 02/26/23 15:29 DCW [id number]) Physical Therapy Assessment Impairments Impairments Balance,Functional Activities, Functional Mobility,Gait, Integument,Pain,Posture,ROM, Soft Tissue Mobility,Strength, Tone,Vestibular Goals Three Impairment Pt experiences dizziness with positional changes Penitentiary Goal (LTG) Pt to report no episodes of dizziness while lying in bed for one full week to improve sleep pattern LTG Duration Met Two Impairment Left cervical rotation limited to 26? Framer Goal (LTG) Pt to increase left cervical rotation by at least 19? to 45 ? in order to improve ability to turn head to look for traffic while driving. LTG Duration 03/06/23 - Improving One Impairment Pt does not have an appropriate home exercise program Short Term Goal (STG) Pt to be independent and compliant with an appropriate HEP STG Duration 02/03/23 Assessment Summary Assessment Pt doing much better overall today, decreased tone in all areas, moving much better on his legs, improved ankle stability with recent use of SPC and ankle brace. Physical Therapy Plan Frequency and Duration Frequency of Treatment 2x/Week Plan of Care Start Date 01/04/23 Plan of Care End Date 03/06/23 Therapeutic Interventions Therapeutic Interventions Aquatic Therapy,Balance Training,Gait Training,Home Exercise Program,Joint Mobilizations,Manual Therapy, Neuromuscular Re-education, Patient/Caregiver Education, Self-Care/Home Management,Soft Tissue Mobilization, Therapeutic Activities, Therapeutic Exercises, Vestibular Rehabilitation Modalities Cold Pack/Ice Massage,Electric Stimulation,Hot Packs, Ultrasound Next Visit Focus/Plan Next Note Type Treatment Note Next Visit Plan Cervical and lumbar STM/ stretching, core strengthening
--- NOTE | 2023-03-08 13:36 | PT.OTN ---
Current Diagnoses Benign paroxysmal vertigo, unspecified ear (03/08/23) Stiffness of other specified joint, not elsewhere classified (03/08/23) Spinal stenosis, lumbar region with neurogenic claudication (03/08/23) Intervertebral disc disorders with myelopathy, thoracic region (03/08/23) Other intervertebral disc displacement, lumbar region (03/08/23) Other intervertebral disc degeneration, lumbar region (03/08/23) Cervicalgia (03/08/23) Physical Therapy Treatment Note PT-OP-A Visit Information Start: 07/11/22 14:19 Freq: Status: Active Protocol: Document 03/08/23 12:52 DCW (Rec: 03/08/23 13:36 DCW [id number]) Out-Patient Physical Therapy Visit Information Visit Information Visit Type Progress Note Visit Start Time 12:52 Visit Stop Time 13:30 Total Visit Minutes 38 Visit Number 36 Number of EGG SEPARATOR Visits 0 Evaluation Information Evaluation Date 07/11/22 PT-OP-B Current Condition Start: 07/11/22 14:19 Freq: Status: Active Protocol: Document 07/11/22 11:15 DCW (Rec: 07/11/22 17:44 DCW [id number]) Current Condition History of Current Condition Onset Date Long-standing history Current Complaints Dizziness, cervical pain, thoracic pain, lumbar pain History of Current Condition Pt is a 57 year old male very well known to this clinic presenting with a multitude of complaints and ailments. Pt was recently seen at this facility following ankle surgery ~1 year ago, after which he had a sudden onset of new autoimmune disease, which left him hospitalized for one month, greatly setting back his recovery for his ankle. Due to poor gait, repeatedly twisting his ankle, and multiple falls, pt began to have significant pain in his mid- and low-back, as well as his right hip. Additionally, pt has been complaining of ongoing dizziness for the past six months, typically with various head turns, lasting multiple minutes to half an hour. Pt has had multiple surgeries in the past, including, but not limited to, ankle surgery, cervical fusion (s/p ~10 years), and thoracic outlet syndrome surgery. Treatment Goals Patient/Caregiver Goals Improve mobility by decreasing back pain PT-OP-C Subjective Start: 07/11/22 14:19 Freq: Status: Active Protocol: Document 03/08/23 12:52 DCW (Rec: 03/08/23 13:36 DCW [id number]) OP-PT Subjective Patient Comments Patient Comments Some things are better, some things are worse. PT-OP-F Manual Assessment Start: 07/11/22 14:19 Freq: Status: Active Protocol: Document 03/08/23 12:52 DCW (Rec: 03/08/23 12:59 DCW [id number]) Manual Assessments Soft Tissue Assessment Soft Tissue Mobility Assessment Moderate tone with tenderness to palpation 2/4: Pain with wincing along bilateral cervical and lumbar paraspinals, upper trap, levator scap, SCM, and QL. Tenderness to palpation 1/4: Complaint of pain along thoracic paraspinals PT-OP-K Range of Motion Start: 07/11/22 14:19 Freq: Status: Active Protocol: Document 03/08/23 12:52 DCW (Rec: 03/08/23 12:59 DCW [id number]) Cervical Spine Range of Motion Cervical Spine Active Degrees Testing Position Sitting Flexion 45 Extension 35 Rotation Left 39 Rotation Right 52 Lateral Flexion Left 33 Lateral Flexion Right 21 ROM Limitations Soft Tissue Tightness, Contracture,Bony Restriction, Muscle Tone,Pain Lumbar Spine Range of Motion Lumbar Spine Active Degrees Testing Position Standing Flexion 45 Extension 14 ROM Limitations Soft Tissue Tightness, Contracture,Bony Restriction, Muscle Tone,Pain PT-OP-L Special Tests Start: 07/11/22 14:19 Freq: Status: Active Protocol: Document 03/08/23 12:52 DCW (Rec: 03/08/23 12:59 DCW [id number]) Special Tests Cervical Spine Special Tests Slump Test Results Negative Traction Test Results Mild pain relief Spurling's Test Test Results Negative Passive Neck Flexion Test Results Negative Foraminal Compression Test Results Negative Alar Ligament Test Results Negative PT-OP-O Vestibular Start: 07/11/22 14:19 Freq: Status: Active Protocol: Document 07/11/22 11:15 DCW (Rec: 07/11/22 14:23 DCW [id number]) Vestibular Assessment Screening Tests Vestibular Artery Screen Negative Sharp-Selena Test Negative Visual Testing Smooth Pursuits Horizontal WNL Smooth Pursuits Vertical WNL Saccades Horizontal WNL Saccades Vertical WNL Heave Test Positive Right Thrust Head Positive Right Positional Testing Telford-Hallpike Negative Left,Negative Right Rolling Test Negative Left,Negative Right Comments Vestibular Comments Pt reports vertigo/dizziness in all positions, worse with left-side dependent, but zero signs of nystagmus. Pt also has poor cervical extension and rotation, limiting proper positioning PT-OP-Q Treatments Start: 07/11/22 14:19 Freq: Status: Active Protocol: Document 03/08/23 12:52 DCW (Rec: 03/08/23 13:36 DCW [id number]) Manual Therapy Treatment Soft Tissue Mobilization Lumbar Paraspinals Body Location QL, Paraspinals Mobilization Type Sustained Pressure,Trigger Point Release Intensity/Depth Moderate Body Position Prone Cervical Paraspinals Body Location UT, Paraspinals, Scalenes, Levator Mobilization Type Sustained Pressure,Trigger Point Release Intensity/Depth Moderate Body Position Supine Joint Mobilizations Lumbar Joint L1-5 Direction P->A Grade III Body Position Prone PT-OP-T Assessment and Plan Start: 07/11/22 14:19 Freq: Status: Active Protocol: Document 03/08/23 12:52 DCW (Rec: 03/08/23 13:36 DCW [id number]) Physical Therapy Assessment Impairments Impairments Balance,Functional Activities, Functional Mobility,Gait, Integument,Pain,Posture,ROM, Soft Tissue Mobility,Strength, Tone,Vestibular Goals Three Impairment Pt experiences dizziness with positional changes Barrel Painter Goal (LTG) Pt to report no episodes of dizziness while lying in bed for one full week to improve sleep pattern LTG Duration Met Two Impairment Left cervical rotation limited to 26? Barrel Painter Goal (LTG) Pt to increase left cervical rotation by at least 19? to 45 ? in order to improve ability to turn head to look for traffic while driving. LTG Duration 03/06/23 - Improving One Impairment Pt does not have an appropriate home exercise program Short Term Goal (STG) Pt to be independent and compliant with an appropriate HEP STG Duration 02/03/23 Assessment Summary Assessment Pt continues to show reasonable progress overall with soft tissue tone and functional mobility. Still experiencing significant limitations with cervical and lumbar ROM, will likely continue to benefit from skilled PT focusing on tone and pain management until he is able to get his planned fusion scheduled. Physical Therapy Plan Frequency and Duration Frequency of Treatment 2x/Week Plan of Care Start Date 03/08/23 Plan of Care End Date 06/06/23 Therapeutic Interventions Therapeutic Interventions Aquatic Therapy,Balance Training,Gait Training,Home Exercise Program,Joint Mobilizations,Manual Therapy, Neuromuscular Re-education, Patient/Caregiver Education, Self-Care/Home Management,Soft Tissue Mobilization, Therapeutic Activities, Therapeutic Exercises, Vestibular Rehabilitation Modalities Cold Pack/Ice Massage,Electric Stimulation,Hot Packs, Ultrasound Next Visit Focus/Plan Next Note Type Treatment Note Next Visit Plan Cervical and lumbar STM/ stretching, core strengthening
--- NOTE | 2023-03-08 13:36 | PT.OPPOC ---
Physical, Occupational & Speech Therapy At [facility] Current Diagnoses Benign paroxysmal vertigo, unspecified ear (03/08/23) Stiffness of other specified joint, not elsewhere classified (03/08/23) Spinal stenosis, lumbar region with neurogenic claudication (03/08/23) Intervertebral disc disorders with myelopathy, thoracic region (03/08/23) Other intervertebral disc displacement, lumbar region (03/08/23) Other intervertebral disc degeneration, lumbar region (03/08/23) Cervicalgia (03/08/23) Visit Care Team Role Provider Type Jhon Taylor MD Attending Provider Physician Family Provider Primary Care Provider Referring Provider Specialty: Internal Medicine Address: [address] [place] [address], [facility] Email: [email or web address] Plan Of Care PT-OP-T Assessment and Plan Start: 07/11/22 14:19 Freq: Status: Active Protocol: Document 03/08/23 12:52 DCW (Rec: 03/08/23 13:36 DCW [id number]) Physical Therapy Assessment Impairments Impairments Balance,Functional Activities, Functional Mobility,Gait, Integument,Pain,Posture,ROM, Soft Tissue Mobility,Strength, Tone,Vestibular Goals Three Impairment Pt experiences dizziness with positional changes Residential Goal (LTG) Pt to report no episodes of dizziness while lying in bed for one full week to improve sleep pattern LTG Duration Met Two Impairment Left cervical rotation limited to 26? Warehouse Puller Goal (LTG) Pt to increase left cervical rotation by at least 19? to 45 ? in order to improve ability to turn head to look for traffic while driving. LTG Duration 03/06/23 - Improving One Impairment Pt does not have an appropriate home exercise program Short Term Goal (STG) Pt to be independent and compliant with an appropriate HEP STG Duration 02/03/23 Assessment Summary Assessment Pt continues to show reasonable progress overall with soft tissue tone and functional mobility. Still experiencing significant limitations with cervical and lumbar ROM, will likely continue to benefit from skilled PT focusing on tone and pain management until he is able to get his planned fusion scheduled. Physical Therapy Plan Frequency and Duration Frequency of Treatment 2x/Week Plan of Care Start Date 03/08/23 Plan of Care End Date 06/06/23 Therapeutic Interventions Therapeutic Interventions Aquatic Therapy,Balance Training,Gait Training,Home Exercise Program,Joint Mobilizations,Manual Therapy, Neuromuscular Re-education, Patient/Caregiver Education, Self-Care/Home Management,Soft Tissue Mobilization, Therapeutic Activities, Therapeutic Exercises, Vestibular Rehabilitation Modalities Cold Pack/Ice Massage,Electric Stimulation,Hot Packs, Ultrasound Next Visit Focus/Plan Next Note Type Treatment Note Next Visit Plan Cervical and lumbar STM/ stretching, core strengthening Plan of Care Dates Plan of Care Start Date 03/08/23 Plan of Care End Date 06/06/23 Electronically Signed by: Tong Card, PT 03/08/23 9239 If you are in agreement with this Plan of Care, please return a signed and dated copy. I have reviewed this Plan of Care and certify that the skilled therapy services above are required to meet the patient?s needs. Physician Signature Date Printed Name and Credentials Clinical Instructor Signature Printed Name and Credentials
--- NOTE | 2023-03-21 12:42 | PT.OTN ---
Current Diagnoses Benign paroxysmal vertigo, unspecified ear (03/21/23) Stiffness of other specified joint, not elsewhere classified (03/21/23) Spinal stenosis, lumbar region with neurogenic claudication (03/21/23) Intervertebral disc disorders with myelopathy, thoracic region (03/21/23) Other intervertebral disc displacement, lumbar region (03/21/23) Other intervertebral disc degeneration, lumbar region (03/21/23) Cervicalgia (03/21/23) Physical Therapy Treatment Note PT-OP-A Visit Information Start: 07/11/22 14:19 Freq: Status: Active Protocol: Document 03/21/23 12:01 DCW (Rec: 03/21/23 12:42 DCW [id number]) Out-Patient Physical Therapy Visit Information Visit Information Visit Type Treatment Note Visit Start Time 12:01 Visit Stop Time 12:45 Total Visit Minutes 44 Visit Number 37 Number of WARPING MACHINE OPERATOR Visits 0 Evaluation Information Evaluation Date 07/11/22 PT-OP-B Current Condition Start: 07/11/22 14:19 Freq: Status: Active Protocol: Document 07/11/22 11:15 DCW (Rec: 07/11/22 17:44 DCW [id number]) Current Condition History of Current Condition Onset Date Long-standing history Current Complaints Dizziness, cervical pain, thoracic pain, lumbar pain History of Current Condition Pt is a 57 year old male very well known to this clinic presenting with a multitude of complaints and ailments. Pt was recently seen at this facility following ankle surgery ~1 year ago, after which he had a sudden onset of new autoimmune disease, which left him hospitalized for one month, greatly setting back his recovery for his ankle. Due to poor gait, repeatedly twisting his ankle, and multiple falls, pt began to have significant pain in his mid- and low-back, as well as his right hip. Additionally, pt has been complaining of ongoing dizziness for the past six months, typically with various head turns, lasting multiple minutes to half an hour. Pt has had multiple surgeries in the past, including, but not limited to, ankle surgery, cervical fusion (s/p ~10 years), and thoracic outlet syndrome surgery. Treatment Goals Patient/Caregiver Goals Improve mobility by decreasing back pain PT-OP-C Subjective Start: 07/11/22 14:19 Freq: Status: Active Protocol: Document 03/21/23 12:01 DCW (Rec: 03/21/23 12:42 DCW [id number]) OP-PT Subjective Patient Comments Patient Comments Pt wearing new shoes today with an orthotic outrigger that helps prevent inversion sprains. Appear to be doing well on his ankle, but admits that now his knee is bothering him more. PT-OP-F Manual Assessment Start: 07/11/22 14:19 Freq: Status: Active Protocol: Document 03/08/23 12:52 DCW (Rec: 03/08/23 12:59 DCW [id number]) Manual Assessments Soft Tissue Assessment Soft Tissue Mobility Assessment Moderate tone with tenderness to palpation 2/4: Pain with wincing along bilateral cervical and lumbar paraspinals, upper trap, levator scap, SCM, and QL. Tenderness to palpation 1/4: Complaint of pain along thoracic paraspinals PT-OP-K Range of Motion Start: 07/11/22 14:19 Freq: Status: Active Protocol: Document 03/08/23 12:52 DCW (Rec: 03/08/23 12:59 DCW [id number]) Cervical Spine Range of Motion Cervical Spine Active Degrees Testing Position Sitting Flexion 45 Extension 35 Rotation Left 39 Rotation Right 52 Lateral Flexion Left 33 Lateral Flexion Right 21 ROM Limitations Soft Tissue Tightness, Contracture,Bony Restriction, Muscle Tone,Pain Lumbar Spine Range of Motion Lumbar Spine Active Degrees Testing Position Standing Flexion 45 Extension 14 ROM Limitations Soft Tissue Tightness, Contracture,Bony Restriction, Muscle Tone,Pain PT-OP-L Special Tests Start: 07/11/22 14:19 Freq: Status: Active Protocol: Document 03/08/23 12:52 DCW (Rec: 03/08/23 12:59 DCW [id number]) Special Tests Cervical Spine Special Tests Slump Test Results Negative Traction Test Results Mild pain relief Spurling's Test Test Results Negative Passive Neck Flexion Test Results Negative Foraminal Compression Test Results Negative Alar Ligament Test Results Negative PT-OP-O Vestibular Start: 07/11/22 14:19 Freq: Status: Active Protocol: Document 07/11/22 11:15 DCW (Rec: 07/11/22 14:23 DCW [id number]) Vestibular Assessment Screening Tests Vestibular Artery Screen Negative Sharp-Selena Test Negative Visual Testing Smooth Pursuits Horizontal WNL Smooth Pursuits Vertical WNL Saccades Horizontal WNL Saccades Vertical WNL Heave Test Positive Right Thrust Head Positive Right Positional Testing Madison-Hallpike Negative Left,Negative Right Rolling Test Negative Left,Negative Right Comments Vestibular Comments Pt reports vertigo/dizziness in all positions, worse with left-side dependent, but zero signs of nystagmus. Pt also has poor cervical extension and rotation, limiting proper positioning PT-OP-Q Treatments Start: 07/11/22 14:19 Freq: Status: Active Protocol: Document 03/21/23 12[facility]01 [facility] (Rec: 03/21/23 12:42 [facility] [id number]) Manual Therapy Treatment Soft Tissue Mobilization Lumbar Paraspinals Body Location QL, Paraspinals Mobilization Type Sustained Pressure,Trigger Point Release Intensity/Depth Moderate Body Position Prone Cervical Paraspinals Body Location UT, Paraspinals, Scalenes, Levator Mobilization Type Sustained Pressure,Trigger Point Release Intensity/Depth Moderate Body Position Supine Joint Mobilizations Lumbar Joint L1-5 Direction P->A Grade III Body Position Prone PT-OP-T Assessment and Plan Start: 07/11/22 14:19 Freq: Status: Active Protocol: Document 03/21/23 12:01 DCW (Rec: 03/21/23 12:42 [facility] [id number]) Physical Therapy Assessment Impairments Impairments Balance,Functional Activities, Functional Mobility,Gait, Integument,Pain,Posture,ROM, Soft Tissue Mobility,Strength, Tone,Vestibular Goals Three Impairment Pt experiences dizziness with positional changes Nursing Home Goal (LTG) Pt to report no episodes of dizziness while lying in bed for one full week to improve sleep pattern LTG Duration Met Two Impairment Left cervical rotation limited to 26? Necktie Maker Goal (LTG) Pt to increase left cervical rotation by at least 19? to 45 ? in order to improve ability to turn head to look for traffic while driving. LTG Duration 03/06/23 - Improving One Impairment Pt does not have an appropriate home exercise program Short Term Goal (STG) Pt to be independent and compliant with an appropriate HEP STG Duration 02/03/23 Assessment Summary Assessment Pt low back feeling much better, cervical spine/right shoulder actually feels like it has worsened since last visit, may be related to current stress of packing up his home. Physical Therapy Plan Frequency and Duration Frequency of Treatment 2x/Week Plan of Care Start Date 03/08/23 Plan of Care End Date 06/06/23 Therapeutic Interventions Therapeutic Interventions Aquatic Therapy,Balance Training,Gait Training,Home Exercise Program,Joint Mobilizations,Manual Therapy, Neuromuscular Re-education, Patient/Caregiver Education, Self-Care/Home Management,Soft Tissue Mobilization, Therapeutic Activities, Therapeutic Exercises, Vestibular Rehabilitation Modalities Cold Pack/Ice Massage,Electric Stimulation,Hot Packs, Ultrasound Next Visit Focus/Plan Next Note Type Treatment Note Next Visit Plan Cervical and lumbar STM/ stretching, core strengthening
--- NOTE | 2023-03-27 16:28 | PT.OTN ---
Current Diagnoses Benign paroxysmal vertigo, unspecified ear (03/27/23) Stiffness of other specified joint, not elsewhere classified (03/27/23) Spinal stenosis, lumbar region with neurogenic claudication (03/27/23) Intervertebral disc disorders with myelopathy, thoracic region (03/27/23) Other intervertebral disc displacement, lumbar region (03/27/23) Other intervertebral disc degeneration, lumbar region (03/27/23) Cervicalgia (03/27/23) Physical Therapy Treatment Note PT-OP-A Visit Information Start: 07/11/22 14:19 Freq: Status: Active Protocol: Document 03/27/23 15:45 DCW (Rec: 03/27/23 16:28 DCW [id number]) Out-Patient Physical Therapy Visit Information Visit Information Visit Type Treatment Note Visit Start Time 15:45 Visit Stop Time 16:30 Total Visit Minutes 45 Visit Number 38 Number of DIRECTOR SUPPLIER QUALITY Visits 0 Evaluation Information Evaluation Date 07/11/22 PT-OP-B Current Condition Start: 07/11/22 14:19 Freq: Status: Active Protocol: Document 07/11/22 11:15 DCW (Rec: 07/11/22 17:44 DCW [id number]) Current Condition History of Current Condition Onset Date Long-standing history Current Complaints Dizziness, cervical pain, thoracic pain, lumbar pain History of Current Condition Pt is a 57 year old male very well known to this clinic presenting with a multitude of complaints and ailments. Pt was recently seen at this facility following ankle surgery ~1 year ago, after which he had a sudden onset of new autoimmune disease, which left him hospitalized for one month, greatly setting back his recovery for his ankle. Due to poor gait, repeatedly twisting his ankle, and multiple falls, pt began to have significant pain in his mid- and low-back, as well as his right hip. Additionally, pt has been complaining of ongoing dizziness for the past six months, typically with various head turns, lasting multiple minutes to half an hour. Pt has had multiple surgeries in the past, including, but not limited to, ankle surgery, cervical fusion (s/p ~10 years), and thoracic outlet syndrome surgery. Treatment Goals Patient/Caregiver Goals Improve mobility by decreasing back pain PT-OP-C Subjective Start: 07/11/22 14:19 Freq: Status: Active Protocol: Document 03/27/23 15:45 DCW (Rec: 03/27/23 16:28 DCW [id number]) OP-PT Subjective Patient Comments Patient Comments Everything is feeling pretty good. PT-OP-F Manual Assessment Start: 07/11/22 14:19 Freq: Status: Active Protocol: Document 03/08/23 12:52 DCW (Rec: 03/08/23 12:59 DCW [id number]) Manual Assessments Soft Tissue Assessment Soft Tissue Mobility Assessment Moderate tone with tenderness to palpation 2/4: Pain with wincing along bilateral cervical and lumbar paraspinals, upper trap, levator scap, SCM, and QL. Tenderness to palpation 1/4: Complaint of pain along thoracic paraspinals PT-OP-K Range of Motion Start: 07/11/22 14:19 Freq: Status: Active Protocol: Document 03/08/23 12:52 DCW (Rec: 03/08/23 12:59 DCW [id number]) Cervical Spine Range of Motion Cervical Spine Active Degrees Testing Position Sitting Flexion 45 Extension 35 Rotation Left 39 Rotation Right 52 Lateral Flexion Left 33 Lateral Flexion Right 21 ROM Limitations Soft Tissue Tightness, Contracture,Bony Restriction, Muscle Tone,Pain Lumbar Spine Range of Motion Lumbar Spine Active Degrees Testing Position Standing Flexion 45 Extension 14 ROM Limitations Soft Tissue Tightness, Contracture,Bony Restriction, Muscle Tone,Pain PT-OP-L Special Tests Start: 07/11/22 14:19 Freq: Status: Active Protocol: Document 03/08/23 12:52 DCW (Rec: 03/08/23 12:59 DCW [id number]) Special Tests Cervical Spine Special Tests Slump Test Results Negative Traction Test Results Mild pain relief Spurling's Test Test Results Negative Passive Neck Flexion Test Results Negative Foraminal Compression Test Results Negative Alar Ligament Test Results Negative PT-OP-O Vestibular Start: 07/11/22 14:19 Freq: Status: Active Protocol: Document 07/11/22 11:15 DCW (Rec: 07/11/22 14:23 DCW [id number]) Vestibular Assessment Screening Tests Vestibular Artery Screen Negative Sharp-Selena Test Negative Visual Testing Smooth Pursuits Horizontal WNL Smooth Pursuits Vertical WNL Saccades Horizontal WNL Saccades Vertical WNL Heave Test Positive Right Thrust Head Positive Right Positional Testing Samantha-Hallpike Negative Left,Negative Right Rolling Test Negative Left,Negative Right Comments Vestibular Comments Pt reports vertigo/dizziness in all positions, worse with left-side dependent, but zero signs of nystagmus. Pt also has poor cervical extension and rotation, limiting proper positioning PT-OP-Q Treatments Start: 07/11/22 14:19 Freq: Status: Active Protocol: Document 03/27/23 15:45 DCW (Rec: 03/27/23 16:28 DCW [id number]) Manual Therapy Treatment Soft Tissue Mobilization Lumbar Paraspinals Body Location QL, Paraspinals, parascapulars Mobilization Type Sustained Pressure,Trigger Point Release Intensity/Depth Moderate Body Position Prone Cervical Paraspinals Body Location UT, Paraspinals, Scalenes, Levator Mobilization Type Sustained Pressure,Trigger Point Release Intensity/Depth Moderate Body Position Supine Joint Mobilizations Lumbar Joint L1-5 Direction P->A Grade III Body Position Prone PT-OP-T Assessment and Plan Start: 07/11/22 14:19 Freq: Status: Active Protocol: Document 03/27/23 15:45 DCW (Rec: 03/27/23 16:28 DCW [id number]) Physical Therapy Assessment Impairments Impairments Balance,Functional Activities, Functional Mobility,Gait, Integument,Pain,Posture,ROM, Soft Tissue Mobility,Strength, Tone,Vestibular Goals Three Impairment Pt experiences dizziness with positional changes [facility]fp Goal (LTG) Pt to report no episodes of dizziness while lying in bed for one full week to improve sleep pattern LTG Duration Met Two Impairment Left cervical rotation limited to 26? Halver Machine Operator Goal (LTG) Pt to increase left cervical rotation by at least 19? to 45 ? in order to improve ability to turn head to look for traffic while driving. LTG Duration 03/06/23 - Improving One Impairment Pt does not have an appropriate home exercise program Short Term Goal (STG) Pt to be independent and compliant with an appropriate HEP STG Duration 02/03/23 Assessment Summary Assessment Pt continues recent significant improvement with tone in cervical and lumbar spine and upright posture with ambulation. Pt is working toward expansive spinal fusion , the more strength he is able to build and improved tone/ posture he can demonstrate beforehand, the more likely his recovery is to go well. Physical Therapy Plan Frequency and Duration Frequency of Treatment 2x/Week Plan of Care Start Date 03/08/23 Plan of Care End Date 06/06/23 Therapeutic Interventions Therapeutic Interventions Aquatic Therapy,Balance Training,Gait Training,Home Exercise Program,Joint Mobilizations,Manual Therapy, Neuromuscular Re-education, Patient/Caregiver Education, Self-Care/Home Management,Soft Tissue Mobilization, Therapeutic Activities, Therapeutic Exercises, Vestibular Rehabilitation Modalities Cold Pack/Ice Massage,Electric Stimulation,Hot Packs, Ultrasound Next Visit Focus/Plan Next Note Type Treatment Note Next Visit Plan Cervical and lumbar STM/ stretching, core strengthening
--- NOTE | 2023-03-30 12:57 | PT.OTN ---
Current Diagnoses Benign paroxysmal vertigo, unspecified ear (03/30/23) Stiffness of other specified joint, not elsewhere classified (03/30/23) Spinal stenosis, lumbar region with neurogenic claudication (03/30/23) Intervertebral disc disorders with myelopathy, thoracic region (03/30/23) Other intervertebral disc displacement, lumbar region (03/30/23) Other intervertebral disc degeneration, lumbar region (03/30/23) Cervicalgia (03/30/23) Physical Therapy Treatment Note PT-OP-A Visit Information Start: 07/11/22 14:19 Freq: Status: Active Protocol: Document 03/30/23 12:15 DC[facility] (Rec: 03/30/23 12:56 DCW [id number]) Out-Patient Physical Therapy Visit Information Visit Information Visit Type Treatment Note Visit Start Time 12:15 Visit Stop Time 13:00 Total Visit Minutes 45 Visit Number 39 Number of WIRE SPIRAL BINDER Visits 0 Evaluation Information Evaluation Date 07/11/22 PT-OP-B Current Condition Start: 07/11/22 14:19 Freq: Status: Active Protocol: Document 07/11/22 11:15 DCW (Rec: 07/11/22 17:44 DCW [id number]) Current Condition History of Current Condition Onset Date Long-standing history Current Complaints Dizziness, cervical pain, thoracic pain, lumbar pain History of Current Condition Pt is a 57 year old male very well known to this clinic presenting with a multitude of complaints and ailments. Pt was recently seen at this facility following ankle surgery ~1 year ago, after which he had a sudden onset of new autoimmune disease, which left him hospitalized for one month, greatly setting back his recovery for his ankle. Due to poor gait, repeatedly twisting his ankle, and multiple falls, pt began to have significant pain in his mid- and low-back, as well as his right hip. Additionally, pt has been complaining of ongoing dizziness for the past six months, typically with various head turns, lasting multiple minutes to half an hour. Pt has had multiple surgeries in the past, including, but not limited to, ankle surgery, cervical fusion (s/p ~10 years), and thoracic outlet syndrome surgery. Treatment Goals Patient/Caregiver Goals Improve mobility by decreasing back pain PT-OP-C Subjective Start: 07/11/22 14:19 Freq: Status: Active Protocol: Document 03/30/23 12:15 [facility] (Rec: 03/30/23 12:56 DCW [id number]) OP-PT Subjective Patient Comments Patient Comments Pt reports he has been trying to walk more without a cane. PT-OP-F Manual Assessment Start: 07/11/22 14:19 Freq: Status: Active Protocol: Document 03/08/23 12:52 DCW (Rec: 03/08/23 12:59 DCW [id number]) Manual Assessments Soft Tissue Assessment Soft Tissue Mobility Assessment Moderate tone with tenderness to palpation 2/4: Pain with wincing along bilateral cervical and lumbar paraspinals, upper trap, levator scap, SCM, and QL. Tenderness to palpation 1/4: Complaint of pain along thoracic paraspinals PT-OP-K Range of Motion Start: 07/11/22 14:19 Freq: Status: Active Protocol: Document 03/08/23 12:52 DCW (Rec: 03/08/23 12:59 DCW [id number]) Cervical Spine Range of Motion Cervical Spine Active Degrees Testing Position Sitting Flexion 45 Extension 35 Rotation Left 39 Rotation Right 52 Lateral Flexion Left 33 Lateral Flexion Right 21 ROM Limitations Soft Tissue Tightness, Contracture,Bony Restriction, Muscle Tone,Pain Lumbar Spine Range of Motion Lumbar Spine Active Degrees Testing Position Standing Flexion 45 Extension 14 ROM Limitations Soft Tissue Tightness, Contracture,Bony Restriction, Muscle Tone,Pain PT-OP-L Special Tests Start: 07/11/22 14:19 Freq: Status: Active Protocol: Document 03/08/23 12:52 DCW (Rec: 03/08/23 12:59 DCW [id number]) Special Tests Cervical Spine Special Tests Slump Test Results Negative Traction Test Results Mild pain relief Spurling's Test Test Results Negative Passive Neck Flexion Test Results Negative Foraminal Compression Test Results Negative Alar Ligament Test Results Negative PT-OP-O Vestibular Start: 07/11/22 14:19 Freq: Status: Active Protocol: Document 07/11/22 11:15 DCW (Rec: 07/11/22 14:23 DCW [id number]) Vestibular Assessment Screening Tests Vestibular Artery Screen Negative Sharp-Selena Test Negative Visual Testing Smooth Pursuits Horizontal WNL Smooth Pursuits Vertical WNL Saccades Horizontal WNL Saccades Vertical WNL Heave Test Positive Right Thrust Head Positive Right Positional Testing Samantha-Hallpike Negative Left,Negative Right Rolling Test Negative Left,Negative Right Comments Vestibular Comments Pt reports vertigo/dizziness in all positions, worse with left-side dependent, but zero signs of nystagmus. Pt also has poor cervical extension and rotation, limiting proper positioning PT-OP-Q Treatments Start: 07/11/22 14:19 Freq: Status: Active Protocol: Document 03/30/23 12:15 DCW (Rec: 03/30/23 12:56 DCW [id number]) Manual Therapy Treatment Soft Tissue Mobilization Lumbar Paraspinals Body Location QL, Paraspinals, parascapulars Mobilization Type Sustained Pressure,Trigger Point Release Intensity/Depth Moderate Body Position Prone Cervical Paraspinals Body Location UT, Paraspinals, Scalenes, Levator Mobilization Type Sustained Pressure,Trigger Point Release Intensity/Depth Moderate Body Position Supine Joint Mobilizations Lumbar Joint L1-5 Direction P->A Grade III Body Position Prone PT-OP-T Assessment and Plan Start: 07/11/22 14:19 Freq: Status: Active Protocol: Document 03/30/23 12:15 [facility] (Rec: 03/30/23 12:56 DCW [id number]) Physical Therapy Assessment Impairments Impairments Balance,Functional Activities, Functional Mobility,Gait, Integument,Pain,Posture,ROM, Soft Tissue Mobility,Strength, Tone,Vestibular Goals Three Impairment Pt experiences dizziness with positional changes Custodial Goal (LTG) Pt to report no episodes of dizziness while lying in bed for one full week to improve sleep pattern LTG Duration Met Two Impairment Left cervical rotation limited to 26? Systems Mgr Goal (LTG) Pt to increase left cervical rotation by at least 19? to 45 ? in order to improve ability to turn head to look for traffic while driving. LTG Duration 03/06/23 - Improving One Impairment Pt does not have an appropriate home exercise program Short Term Goal (STG) Pt to be independent and compliant with an appropriate HEP STG Duration 02/03/23 Assessment Summary Assessment Improving posture and ambulation recently, even doing much better without assistive device. Physical Therapy Plan Frequency and Duration Frequency of Treatment 2x/Week Plan of Care Start Date 03/08/23 Plan of Care End Date 06/06/23 Therapeutic Interventions Therapeutic Interventions Aquatic Therapy,Balance Training,Gait Training,Home Exercise Program,Joint Mobilizations,Manual Therapy, Neuromuscular Re-education, Patient/Caregiver Education, Self-Care/Home Management,Soft Tissue Mobilization, Therapeutic Activities, Therapeutic Exercises, Vestibular Rehabilitation Modalities Cold Pack/Ice Massage,Electric Stimulation,Hot Packs, Ultrasound Next Visit Focus/Plan Next Note Type Treatment Note Next Visit Plan Cervical and lumbar STM/ stretching, core strengthening
--- NOTE | 2023-04-06 12:12 | PT.OTN ---
Current Diagnoses Benign paroxysmal vertigo, unspecified ear (04/06/23) Stiffness of other specified joint, not elsewhere classified (04/06/23) Spinal stenosis, lumbar region with neurogenic claudication (04/06/23) Intervertebral disc disorders with myelopathy, thoracic region (04/06/23) Other intervertebral disc displacement, lumbar region (04/06/23) Other intervertebral disc degeneration, lumbar region (04/06/23) Cervicalgia (04/06/23) Physical Therapy Treatment Note PT-OP-A Visit Information Start: 07/11/22 14:19 Freq: Status: Active Protocol: Document 04/06/23 11:30 DCW (Rec: 04/06/23 12:11 DCW [id number]) Out-Patient Physical Therapy Visit Information Visit Information Visit Type Treatment Note Visit Start Time 11:30 Visit Stop Time 12:15 Total Visit Minutes 45 Visit Number 40 Number of DERRICK HAND Visits 0 Evaluation Information Evaluation Date 07/11/22 PT-OP-B Current Condition Start: 07/11/22 14:19 Freq: Status: Active Protocol: Document 07/11/22 11:15 DCW (Rec: 07/11/22 17:44 DCW [id number]) Current Condition History of Current Condition Onset Date Long-standing history Current Complaints Dizziness, cervical pain, thoracic pain, lumbar pain History of Current Condition Pt is a 57 year old male very well known to this clinic presenting with a multitude of complaints and ailments. Pt was recently seen at this facility following ankle surgery ~1 year ago, after which he had a sudden onset of new autoimmune disease, which left him hospitalized for one month, greatly setting back his recovery for his ankle. Due to poor gait, repeatedly twisting his ankle, and multiple falls, pt began to have significant pain in his mid- and low-back, as well as his right hip. Additionally, pt has been complaining of ongoing dizziness for the past six months, typically with various head turns, lasting multiple minutes to half an hour. Pt has had multiple surgeries in the past, including, but not limited to, ankle surgery, cervical fusion (s/p ~10 years), and thoracic outlet syndrome surgery. Treatment Goals Patient/Caregiver Goals Improve mobility by decreasing back pain PT-OP-C Subjective Start: 07/11/22 14:19 Freq: Status: Active Protocol: Document 04/06/23 11:30 DCW (Rec: 04/06/23 12:11 DCW [id number]) OP-PT Subjective Patient Comments Patient Comments A lot of things are feeling better, some things (right knee) are worse. PT-OP-F Manual Assessment Start: 07/11/22 14:19 Freq: Status: Active Protocol: Document 03/08/23 12:52 DCW (Rec: 03/08/23 12:59 DCW [id number]) Manual Assessments Soft Tissue Assessment Soft Tissue Mobility Assessment Moderate tone with tenderness to palpation 2/4: Pain with wincing along bilateral cervical and lumbar paraspinals, upper trap, levator scap, SCM, and QL. Tenderness to palpation 1/4: Complaint of pain along thoracic paraspinals PT-OP-K Range of Motion Start: 07/11/22 14:19 Freq: Status: Active Protocol: Document 03/08/23 12:52 DCW (Rec: 03/08/23 12:59 DCW [id number]) Cervical Spine Range of Motion Cervical Spine Active Degrees Testing Position Sitting Flexion 45 Extension 35 Rotation Left 39 Rotation Right 52 Lateral Flexion Left 33 Lateral Flexion Right 21 ROM Limitations Soft Tissue Tightness, Contracture,Bony Restriction, Muscle Tone,Pain Lumbar Spine Range of Motion Lumbar Spine Active Degrees Testing Position Standing Flexion 45 Extension 14 ROM Limitations Soft Tissue Tightness, Contracture,Bony Restriction, Muscle Tone,Pain PT-OP-L Special Tests Start: 07/11/22 14:19 Freq: Status: Active Protocol: Document 03/08/23 12:52 DCW (Rec: 03/08/23 12:59 DCW [id number]) Special Tests Cervical Spine Special Tests Slump Test Results Negative Traction Test Results Mild pain relief Spurling's Test Test Results Negative Passive Neck Flexion Test Results Negative Foraminal Compression Test Results Negative Alar Ligament Test Results Negative PT-OP-O Vestibular Start: 07/11/22 14:19 Freq: Status: Active Protocol: Document 07/11/22 11:15 DCW (Rec: 07/11/22 14:23 DCW [id number]) Vestibular Assessment Screening Tests Vestibular Artery Screen Negative Sharp-Selena Test Negative Visual Testing Smooth Pursuits Horizontal WNL Smooth Pursuits Vertical WNL Saccades Horizontal WNL Saccades Vertical WNL Heave Test Positive Right Thrust Head Positive Right Positional Testing [place]-Hallpike Negative Left,Negative Right Rolling Test Negative Left,Negative Right Comments Vestibular Comments Pt reports vertigo/dizziness in all positions, worse with left-side dependent, but zero signs of nystagmus. Pt also has poor cervical extension and rotation, limiting proper positioning PT-OP-Q Treatments Start: 07/11/22 14:19 Freq: Status: Active Protocol: Document 04/06/23 11:30 DCW (Rec: 04/06/23 12:11 DCW [id number]) Manual Therapy Treatment Soft Tissue Mobilization Lumbar Paraspinals Body Location QL, Paraspinals, parascapulars Mobilization Type Sustained Pressure,Trigger Point Release Intensity/Depth Moderate Body Position Prone Cervical Paraspinals Body Location UT, Paraspinals, Scalenes, Levator Mobilization Type Sustained Pressure,Trigger Point Release Intensity/Depth Moderate Body Position Supine Joint Mobilizations Lumbar Joint L1-5 Direction P->A Grade III Body Position Prone PT-OP-T Assessment and Plan Start: 07/11/22 14:19 Freq: Status: Active Protocol: Document 04/06/23 11:30 DCW (Rec: 04/06/23 12:11 DCW [id number]) Physical Therapy Assessment Impairments Impairments Balance,Functional Activities, Functional Mobility,Gait, Integument,Pain,Posture,ROM, Soft Tissue Mobility,Strength, Tone,Vestibular Goals Three Impairment Pt experiences dizziness with positional changes Barrel Coater Goal (LTG) Pt to report no episodes of dizziness while lying in bed for one full week to improve sleep pattern LTG Duration Met Two Impairment Left cervical rotation limited to 26? Barrel Coater Goal (LTG) Pt to increase left cervical rotation by at least 19? to 45 ? in order to improve ability to turn head to look for traffic while driving. LTG Duration 03/06/23 - Improving One Impairment Pt does not have an appropriate home exercise program Short Term Goal (STG) Pt to be independent and compliant with an appropriate HEP STG Duration 02/03/23 Assessment Summary Assessment Pt using SPC today, knee bothering him more today. Cervical paraspinals are much improved, lumbar spine continue to display decreased overall tone. Physical Therapy Plan Frequency and Duration Frequency of Treatment 2x/Week Plan of Care Start Date 03/08/23 Plan of Care End Date 06/06/23 Therapeutic Interventions Therapeutic Interventions Aquatic Therapy,Balance Training,Gait Training,Home Exercise Program,Joint Mobilizations,Manual Therapy, Neuromuscular Re-education, Patient/Caregiver Education, Self-Care/Home Management,Soft Tissue Mobilization, Therapeutic Activities, Therapeutic Exercises, Vestibular Rehabilitation Modalities Cold Pack/Ice Massage,Electric Stimulation,Hot Packs, Ultrasound Next Visit Focus/Plan Next Note Type Treatment Note Next Visit Plan Cervical and lumbar STM/ stretching, core strengthening
--- NOTE | 2023-04-10 14:13 | PT.OTN ---
Current Diagnoses Benign paroxysmal vertigo, unspecified ear (04/10/23) Stiffness of other specified joint, not elsewhere classified (04/10/23) Spinal stenosis, lumbar region with neurogenic claudication (04/10/23) Intervertebral disc disorders with myelopathy, thoracic region (04/10/23) Other intervertebral disc displacement, lumbar region (04/10/23) Other intervertebral disc degeneration, lumbar region (04/10/23) Cervicalgia (04/10/23) Physical Therapy Treatment Note PT-OP-A Visit Information Start: 07/11/22 14:19 Freq: Status: Active Protocol: Document 04/10/23 13:30 DCW (Rec: 04/10/23 14:13 DCW [id number]) Out-Patient Physical Therapy Visit Information Visit Information Visit Type Treatment Note Visit Start Time 13:30 Visit Stop Time 14:15 Total Visit Minutes 45 Visit Number 41 Number of WET END TESTER Visits 0 Evaluation Information Evaluation Date 07/11/22 PT-OP-B Current Condition Start: 07/11/22 14:19 Freq: Status: Active Protocol: Document 07/11/22 11:15 DCW (Rec: 07/11/22 17:44 DCW [id number]) Current Condition History of Current Condition Onset Date Long-standing history Current Complaints Dizziness, cervical pain, thoracic pain, lumbar pain History of Current Condition Pt is a 57 year old male very well known to this clinic presenting with a multitude of complaints and ailments. Pt was recently seen at this facility following ankle surgery ~1 year ago, after which he had a sudden onset of new autoimmune disease, which left him hospitalized for one month, greatly setting back his recovery for his ankle. Due to poor gait, repeatedly twisting his ankle, and multiple falls, pt began to have significant pain in his mid- and low-back, as well as his right hip. Additionally, pt has been complaining of ongoing dizziness for the past six months, typically with various head turns, lasting multiple minutes to half an hour. Pt has had multiple surgeries in the past, including, but not limited to, ankle surgery, cervical fusion (s/p ~10 years), and thoracic outlet syndrome surgery. Treatment Goals Patient/Caregiver Goals Improve mobility by decreasing back pain PT-OP-C Subjective Start: 07/11/22 14:19 Freq: Status: Active Protocol: Document 04/10/23 13:30 DCW (Rec: 04/10/23 14:13 DCW [id number]) OP-PT Subjective Patient Comments Patient Comments Pt received his second orthotic shoe for help with ankle stability bilaterally. Notes his low back has been flared up recently. PT-OP-F Manual Assessment Start: 07/11/22 14:19 Freq: Status: Active Protocol: Document 03/08/23 12:52 DCW (Rec: 03/08/23 12:59 DCW [id number]) Manual Assessments Soft Tissue Assessment Soft Tissue Mobility Assessment Moderate tone with tenderness to palpation 2/4: Pain with wincing along bilateral cervical and lumbar paraspinals, upper trap, levator scap, SCM, and QL. Tenderness to palpation 1/4: Complaint of pain along thoracic paraspinals PT-OP-K Range of Motion Start: 07/11/22 14:19 Freq: Status: Active Protocol: Document 03/08/23 12:52 DCW (Rec: 03/08/23 12:59 DCW [id number]) Cervical Spine Range of Motion Cervical Spine Active Degrees Testing Position Sitting Flexion 45 Extension 35 Rotation Left 39 Rotation Right 52 Lateral Flexion Left 33 Lateral Flexion Right 21 ROM Limitations Soft Tissue Tightness, Contracture,Bony Restriction, Muscle Tone,Pain Lumbar Spine Range of Motion Lumbar Spine Active Degrees Testing Position Standing Flexion 45 Extension 14 ROM Limitations Soft Tissue Tightness, Contracture,Bony Restriction, Muscle Tone,Pain PT-OP-L Special Tests Start: 07/11/22 14:19 Freq: Status: Active Protocol: Document 03/08/23 12:52 DCW (Rec: 03/08/23 12:59 DCW [id number]) Special Tests Cervical Spine Special Tests Slump Test Results Negative Traction Test Results Mild pain relief Spurling's Test Test Results Negative Passive Neck Flexion Test Results Negative Foraminal Compression Test Results Negative Alar Ligament Test Results Negative PT-OP-O Vestibular Start: 07/11/22 14:19 Freq: Status: Active Protocol: Document 07/11/22 11:15 DCW (Rec: 07/11/22 14:23 DCW [id number]) Vestibular Assessment Screening Tests Vestibular Artery Screen Negative Sharp-Selena Test Negative Visual Testing Smooth Pursuits Horizontal WNL Smooth Pursuits Vertical WNL Saccades Horizontal WNL Saccades Vertical WNL Heave Test Positive Right Thrust Head Positive Right Positional Testing Samantha-Hallpike Negative Left,Negative Right Rolling Test Negative Left,Negative Right Comments Vestibular Comments Pt reports vertigo/dizziness in all positions, worse with left-side dependent, but zero signs of nystagmus. Pt also has poor cervical extension and rotation, limiting proper positioning PT-OP-Q Treatments Start: 07/11/22 14:19 Freq: Status: Active Protocol: Document 04/10/23 13:30 DCW (Rec: 04/10/23 14:13 DCW [id number]) Manual Therapy Treatment Soft Tissue Mobilization Lumbar Paraspinals Body Location QL, Paraspinals, parascapulars Mobilization Type Sustained Pressure,Trigger Point Release Intensity/Depth Moderate Body Position Prone Cervical Paraspinals Body Location UT, Paraspinals, Scalenes, Levator Mobilization Type Sustained Pressure,Trigger Point Release Intensity/Depth Moderate Body Position Supine Joint Mobilizations Lumbar Joint L1-5 Direction P->A Grade III Body Position Prone PT-OP-T Assessment and Plan Start: 07/11/22 14:19 Freq: Status: Active Protocol: Document 04/10/23 13:30 DCW (Rec: 04/10/23 14:13 DCW [id number]) Physical Therapy Assessment Impairments Impairments Balance,Functional Activities, Functional Mobility,Gait, Integument,Pain,Posture,ROM, Soft Tissue Mobility,Strength, Tone,Vestibular Goals Three Impairment Pt experiences dizziness with positional changes Longterm Goal (LTG) Pt to report no episodes of dizziness while lying in bed for one full week to improve sleep pattern LTG Duration Met Two Impairment Left cervical rotation limited to 26? [place] Goal (LTG) Pt to increase left cervical rotation by at least 19? to 45 ? in order to improve ability to turn head to look for traffic while driving. LTG Duration 03/06/23 - Improving One Impairment Pt does not have an appropriate home exercise program Short Term Goal (STG) Pt to be independent and compliant with an appropriate HEP STG Duration 02/03/23 Assessment Summary Assessment Pt showing increased lumbar tone today after a rough weekend of poor sleep. Feels he still hasn't adjusted to his new shoes, which could also be leading to increased protective spasming. Physical Therapy Plan Frequency and Duration Frequency of Treatment 2x/Week Plan of Care Start Date 03/08/23 Plan of Care End Date 06/06/23 Therapeutic Interventions Therapeutic Interventions Aquatic Therapy,Balance Training,Gait Training,Home Exercise Program,Joint Mobilizations,Manual Therapy, Neuromuscular Re-education, Patient/Caregiver Education, Self-Care/Home Management,Soft Tissue Mobilization, Therapeutic Activities, Therapeutic Exercises, Vestibular Rehabilitation Modalities Cold Pack/Ice Massage,Electric Stimulation,Hot Packs, Ultrasound Next Visit Focus/Plan Next Note Type Treatment Note Next Visit Plan Cervical and lumbar STM/ stretching, core strengthening
--- NOTE | 2023-04-13 12:58 | PT.OTN ---
Current Diagnoses Benign paroxysmal vertigo, unspecified ear (04/13/23) Stiffness of other specified joint, not elsewhere classified (04/13/23) Spinal stenosis, lumbar region with neurogenic claudication (04/13/23) Intervertebral disc disorders with myelopathy, thoracic region (04/13/23) Other intervertebral disc displacement, lumbar region (04/13/23) Other intervertebral disc degeneration, lumbar region (04/13/23) Cervicalgia (04/13/23) Physical Therapy Treatment Note PT-OP-A Visit Information Start: 07/11/22 14:19 Freq: Status: Active Protocol: Document 04/13/23 12:15 DCW (Rec: 04/13/23 12:58 DCW [id number]) Out-Patient Physical Therapy Visit Information Visit Information Visit Type Treatment Note Visit Start Time 12:15 Visit Stop Time 13:00 Total Visit Minutes 45 Visit Number 42 Number of LEAD SALES CONSULTANT Visits 0 Evaluation Information Evaluation Date 07/11/22 PT-OP-B Current Condition Start: 07/11/22 14:19 Freq: Status: Active Protocol: Document 07/11/22 11:15 DCW (Rec: 07/11/22 17:44 DCW [id number]) Current Condition History of Current Condition Onset Date Long-standing history Current Complaints Dizziness, cervical pain, thoracic pain, lumbar pain History of Current Condition Pt is a 57 year old male very well known to this clinic presenting with a multitude of complaints and ailments. Pt was recently seen at this facility following ankle surgery ~1 year ago, after which he had a sudden onset of new autoimmune disease, which left him hospitalized for one month, greatly setting back his recovery for his ankle. Due to poor gait, repeatedly twisting his ankle, and multiple falls, pt began to have significant pain in his mid- and low-back, as well as his right hip. Additionally, pt has been complaining of ongoing dizziness for the past six months, typically with various head turns, lasting multiple minutes to half an hour. Pt has had multiple surgeries in the past, including, but not limited to, ankle surgery, cervical fusion (s/p ~10 years), and thoracic outlet syndrome surgery. Treatment Goals Patient/Caregiver Goals Improve mobility by decreasing back pain PT-OP-C Subjective Start: 07/11/22 14:19 Freq: Status: Active Protocol: Document 04/13/23 12:15 DCW (Rec: 04/13/23 12:58 DCW [id number]) OP-PT Subjective Patient Comments Patient Comments Pt reporting his shoes are very uncomfortable, but has not been rolling his ankles recently. PT-OP-F Manual Assessment Start: 07/11/22 14:19 Freq: Status: Active Protocol: Document 03/08/23 12:52 DCW (Rec: 03/08/23 12:59 DCW [id number]) Manual Assessments Soft Tissue Assessment Soft Tissue Mobility Assessment Moderate tone with tenderness to palpation 2/4: Pain with wincing along bilateral cervical and lumbar paraspinals, upper trap, levator scap, SCM, and QL. Tenderness to palpation 1/4: Complaint of pain along thoracic paraspinals PT-OP-K Range of Motion Start: 07/11/22 14:19 Freq: Status: Active Protocol: Document 03/08/23 12:52 DCW (Rec: 03/08/23 12:59 DCW [id number]) Cervical Spine Range of Motion Cervical Spine Active Degrees Testing Position Sitting Flexion 45 Extension 35 Rotation Left 39 Rotation Right 52 Lateral Flexion Left 33 Lateral Flexion Right 21 ROM Limitations Soft Tissue Tightness, Contracture,Bony Restriction, Muscle Tone,Pain Lumbar Spine Range of Motion Lumbar Spine Active Degrees Testing Position Standing Flexion 45 Extension 14 ROM Limitations Soft Tissue Tightness, Contracture,Bony Restriction, Muscle Tone,Pain PT-OP-L Special Tests Start: 07/11/22 14:19 Freq: Status: Active Protocol: Document 03/08/23 12:52 DCW (Rec: 03/08/23 12:59 DCW [id number]) Special Tests Cervical Spine Special Tests Slump Test Results Negative Traction Test Results Mild pain relief Spurling's Test Test Results Negative Passive Neck Flexion Test Results Negative Foraminal Compression Test Results Negative Alar Ligament Test Results Negative PT-OP-O Vestibular Start: 07/11/22 14:19 Freq: Status: Active Protocol: Document 07/11/22 11:15 DCW (Rec: 07/11/22 14:23 DCW [id number]) Vestibular Assessment Screening Tests Vestibular Artery Screen Negative Sharp-Selena Test Negative Visual Testing Smooth Pursuits Horizontal WNL Smooth Pursuits Vertical WNL Saccades Horizontal WNL Saccades Vertical WNL Heave Test Positive Right Thrust Head Positive Right Positional Testing Samantha-Hallpike Negative Left,Negative Right Rolling Test Negative Left,Negative Right Comments Vestibular Comments Pt reports vertigo/dizziness in all positions, worse with left-side dependent, but zero signs of nystagmus. Pt also has poor cervical extension and rotation, limiting proper positioning PT-OP-Q Treatments Start: 07/11/22 14:19 Freq: Status: Active Protocol: Document 04/13/23 12:15 DCW (Rec: 04/13/23 12:58 DCW [id number]) Manual Therapy Treatment Soft Tissue Mobilization Lumbar Paraspinals Body Location QL, Paraspinals, parascapulars Mobilization Type Sustained Pressure,Trigger Point Release Intensity/Depth Moderate Body Position Prone Cervical Paraspinals Body Location UT, Paraspinals, Scalenes, Levator Mobilization Type Sustained Pressure,Trigger Point Release Intensity/Depth Moderate Body Position Supine Joint Mobilizations Lumbar Joint L1-5 Direction P->A Grade III Body Position Prone PT-OP-T Assessment and Plan Start: 07/11/22 14:19 Freq: Status: Active Protocol: Document 04/13/23 12:15 DCW (Rec: 04/13/23 12:58 DCW [id number]) Physical Therapy Assessment Impairments Impairments Balance,Functional Activities, Functional Mobility,Gait, Integument,Pain,Posture,ROM, Soft Tissue Mobility,Strength, Tone,Vestibular Goals Three Impairment Pt experiences dizziness with positional changes Half-Way Goal (LTG) Pt to report no episodes of dizziness while lying in bed for one full week to improve sleep pattern LTG Duration Met Two Impairment Left cervical rotation limited to 26? Belt Sewer Goal (LTG) Pt to increase left cervical rotation by at least 19? to 45 ? in order to improve ability to turn head to look for traffic while driving. LTG Duration 03/06/23 - Improving One Impairment Pt does not have an appropriate home exercise program Short Term Goal (STG) Pt to be independent and compliant with an appropriate HEP STG Duration 02/03/23 Assessment Summary Assessment Improved tone today, showing some slight increased in mobility of lumbar vertebrae with joint mobilizations. Physical Therapy Plan Frequency and Duration Frequency of Treatment 2x/Week Plan of Care Start Date 03/08/23 Plan of Care End Date 06/06/23 Therapeutic Interventions Therapeutic Interventions Aquatic Therapy,Balance Training,Gait Training,Home Exercise Program,Joint Mobilizations,Manual Therapy, Neuromuscular Re-education, Patient/Caregiver Education, Self-Care/Home Management,Soft Tissue Mobilization, Therapeutic Activities, Therapeutic Exercises, Vestibular Rehabilitation Modalities Cold Pack/Ice Massage,Electric Stimulation,Hot Packs, Ultrasound Next Visit Focus/Plan Next Note Type Treatment Note Next Visit Plan Cervical and lumbar STM/ stretching, core strengthening
--- NOTE | 2023-04-16 14:43 | PT.OTN ---
Current Diagnoses Benign paroxysmal vertigo, unspecified ear (04/16/23) Stiffness of other specified joint, not elsewhere classified (04/16/23) Spinal stenosis, lumbar region with neurogenic claudication (04/16/23) Intervertebral disc disorders with myelopathy, thoracic region (04/16/23) Other intervertebral disc displacement, lumbar region (04/16/23) Other intervertebral disc degeneration, lumbar region (04/16/23) Cervicalgia (04/16/23) Physical Therapy Treatment Note PT-OP-A Visit Information Start: 07/11/22 14:19 Freq: Status: Active Protocol: Document 04/16/23 14:00 DCW (Rec: 04/16/23 14:43 DCW [id number]) Out-Patient Physical Therapy Visit Information Visit Information Visit Type Treatment Note Visit Start Time 14:00 Visit Stop Time 14:45 Total Visit Minutes 45 Visit Number 43 Number of FORMING MACHINE OPERATOR Visits 0 Evaluation Information Evaluation Date 07/11/22 PT-OP-B Current Condition Start: 07/11/22 14:19 Freq: Status: Active Protocol: Document 07/11/22 11:15 DCW (Rec: 07/11/22 17:44 DCW [id number]) Current Condition History of Current Condition Onset Date Long-standing history Current Complaints Dizziness, cervical pain, thoracic pain, lumbar pain History of Current Condition Pt is a 57 year old male very well known to this clinic presenting with a multitude of complaints and ailments. Pt was recently seen at this facility following ankle surgery ~1 year ago, after which he had a sudden onset of new autoimmune disease, which left him hospitalized for one month, greatly setting back his recovery for his ankle. Due to poor gait, repeatedly twisting his ankle, and multiple falls, pt began to have significant pain in his mid- and low-back, as well as his right hip. Additionally, pt has been complaining of ongoing dizziness for the past six months, typically with various head turns, lasting multiple minutes to half an hour. Pt has had multiple surgeries in the past, including, but not limited to, ankle surgery, cervical fusion (s/p ~10 years), and thoracic outlet syndrome surgery. Treatment Goals Patient/Caregiver Goals Improve mobility by decreasing back pain PT-OP-C Subjective Start: 07/11/22 14:19 Freq: Status: Active Protocol: Document 04/16/23 14:00 DCW (Rec: 04/16/23 14:43 DCW [id number]) OP-PT Subjective Patient Comments Patient Comments Pt notes his hips and knees are bothering him a bit, not bad, after getting back into his orthotic shoes. PT-OP-F Manual Assessment Start: 07/11/22 14:19 Freq: Status: Active Protocol: Document 03/08/23 12:52 DCW (Rec: 03/08/23 12:59 DCW [id number]) Manual Assessments Soft Tissue Assessment Soft Tissue Mobility Assessment Moderate tone with tenderness to palpation 2/4: Pain with wincing along bilateral cervical and lumbar paraspinals, upper trap, levator scap, SCM, and QL. Tenderness to palpation 1/4: Complaint of pain along thoracic paraspinals PT-OP-K Range of Motion Start: 07/11/22 14:19 Freq: Status: Active Protocol: Document 03/08/23 12:52 DCW (Rec: 03/08/23 12:59 DCW [id number]) Cervical Spine Range of Motion Cervical Spine Active Degrees Testing Position Sitting Flexion 45 Extension 35 Rotation Left 39 Rotation Right 52 Lateral Flexion Left 33 Lateral Flexion Right 21 ROM Limitations Soft Tissue Tightness, Contracture,Bony Restriction, Muscle Tone,Pain Lumbar Spine Range of Motion Lumbar Spine Active Degrees Testing Position Standing Flexion 45 Extension 14 ROM Limitations Soft Tissue Tightness, Contracture,Bony Restriction, Muscle Tone,Pain PT-OP-L Special Tests Start: 07/11/22 14:19 Freq: Status: Active Protocol: Document 03/08/23 12:52 DCW (Rec: 03/08/23 12:59 DCW [id number]) Special Tests Cervical Spine Special Tests Slump Test Results Negative Traction Test Results Mild pain relief Spurling's Test Test Results Negative Passive Neck Flexion Test Results Negative Foraminal Compression Test Results Negative Alar Ligament Test Results Negative PT-OP-O Vestibular Start: 07/11/22 14:19 Freq: Status: Active Protocol: Document 07/11/22 11:15 DCW (Rec: 07/11/22 14:23 DCW [id number]) Vestibular Assessment Screening Tests Vestibular Artery Screen Negative Sharp-Selena Test Negative Visual Testing Smooth Pursuits Horizontal WNL Smooth Pursuits Vertical WNL Saccades Horizontal WNL Saccades Vertical WNL Heave Test Positive Right Thrust Head Positive Right Positional Testing Samantha-Hallpike Negative Left,Negative Right Rolling Test Negative Left,Negative Right Comments Vestibular Comments Pt reports vertigo/dizziness in all positions, worse with left-side dependent, but zero signs of nystagmus. Pt also has poor cervical extension and rotation, limiting proper positioning PT-OP-Q Treatments Start: 07/11/22 14:19 Freq: Status: Active Protocol: Document 04/16/23 14:00 DCW (Rec: 04/16/23 14:43 DC [id number]) Manual Therapy Treatment Soft Tissue Mobilization Lumbar Paraspinals Body Location QL, Paraspinals, parascapulars Mobilization Type Sustained Pressure,Trigger Point Release Intensity/Depth Moderate Body Position Prone Cervical Paraspinals Body Location UT, Paraspinals, Scalenes, Levator Mobilization Type Sustained Pressure,Trigger Point Release Intensity/Depth Moderate Body Position Supine Joint Mobilizations Lumbar Joint L1-5 Direction P->A Grade III Body Position Prone PT-OP-T Assessment and Plan Start: 07/11/22 14:19 Freq: Status: Active Protocol: Document 04/16/23 14:00 DCW (Rec: 04/16/23 14:43 DC [id number]) Physical Therapy Assessment Impairments Impairments Balance,Functional Activities, Functional Mobility,Gait, Integument,Pain,Posture,ROM, Soft Tissue Mobility,Strength, Tone,Vestibular Goals Three Impairment Pt experiences dizziness with positional changes Frame Table Operator Helper Goal (LTG) Pt to report no episodes of dizziness while lying in bed for one full week to improve sleep pattern LTG Duration Met Two Impairment Left cervical rotation limited to 26? Long-Term Goal (LTG) Pt to increase left cervical rotation by at least 19? to 45 ? in order to improve ability to turn head to look for traffic while driving. LTG Duration 03/06/23 - Improving One Impairment Pt does not have an appropriate home exercise program Short Term Goal (STG) Pt to be independent and compliant with an appropriate HEP STG Duration 02/03/23 Assessment Summary Assessment Continues to tolerate treatment well, improved tone in both cervical and lumbar paraspinals, improved upright posture. Physical Therapy Plan Frequency and Duration Frequency of Treatment 2x/Week Plan of Care Start Date 03/08/23 Plan of Care End Date 06/06/23 Therapeutic Interventions Therapeutic Interventions Aquatic Therapy,Balance Training,Gait Training,Home Exercise Program,Joint Mobilizations,Manual Therapy, Neuromuscular Re-education, Patient/Caregiver Education, Self-Care/Home Management,Soft Tissue Mobilization, Therapeutic Activities, Therapeutic Exercises, Vestibular Rehabilitation Modalities Cold Pack/Ice Massage,Electric Stimulation,Hot Packs, Ultrasound Next Visit Focus/Plan Next Note Type Treatment Note Next Visit Plan Cervical and lumbar STM/ stretching, core strengthening
--- NOTE | 2023-04-20 12:58 | PT.OTN ---
Current Diagnoses Benign paroxysmal vertigo, unspecified ear (04/20/23) Stiffness of other specified joint, not elsewhere classified (04/20/23) Spinal stenosis, lumbar region with neurogenic claudication (04/20/23) Intervertebral disc disorders with myelopathy, thoracic region (04/20/23) Other intervertebral disc displacement, lumbar region (04/20/23) Other intervertebral disc degeneration, lumbar region (04/20/23) Cervicalgia (04/20/23) Physical Therapy Treatment Note PT-OP-A Visit Information Start: 07/11/22 14:19 Freq: Status: Active Protocol: Document 04/20/23 12:15 DCW (Rec: 04/20/23 12:58 DCW [id number]) Out-Patient Physical Therapy Visit Information Visit Information Visit Type Treatment Note Visit Start Time 12:15 Visit Stop Time 13:00 Total Visit Minutes 45 Visit Number 44 Number of BARREL LATHE OPERATOR OUTSIDE Visits 0 Evaluation Information Evaluation Date 07/11/22 PT-OP-B Current Condition Start: 07/11/22 14:19 Freq: Status: Active Protocol: Document 07/11/22 11:15 DCW (Rec: 07/11/22 17:44 DCW [id number]) Current Condition History of Current Condition Onset Date Long-standing history Current Complaints Dizziness, cervical pain, thoracic pain, lumbar pain History of Current Condition Pt is a 57 year old male very well known to this clinic presenting with a multitude of complaints and ailments. Pt was recently seen at this facility following ankle surgery ~1 year ago, after which he had a sudden onset of new autoimmune disease, which left him hospitalized for one month, greatly setting back his recovery for his ankle. Due to poor gait, repeatedly twisting his ankle, and multiple falls, pt began to have significant pain in his mid- and low-back, as well as his right hip. Additionally, pt has been complaining of ongoing dizziness for the past six months, typically with various head turns, lasting multiple minutes to half an hour. Pt has had multiple surgeries in the past, including, but not limited to, ankle surgery, cervical fusion (s/p ~10 years), and thoracic outlet syndrome surgery. Treatment Goals Patient/Caregiver Goals Improve mobility by decreasing back pain PT-OP-C Subjective Start: 07/11/22 14:19 Freq: Status: Active Protocol: Document 04/20/23 12:15 DCW (Rec: 04/20/23 12:58 DCW [id number]) OP-PT Subjective Patient Comments Patient Comments Back is a bit funky, but other things are feeling pretty good. PT-OP-F Manual Assessment Start: 07/11/22 14:19 Freq: Status: Active Protocol: Document 03/08/23 12:52 DCW (Rec: 03/08/23 12:59 DCW [id number]) Manual Assessments Soft Tissue Assessment Soft Tissue Mobility Assessment Moderate tone with tenderness to palpation 2/4: Pain with wincing along bilateral cervical and lumbar paraspinals, upper trap, levator scap, SCM, and QL. Tenderness to palpation 1/4: Complaint of pain along thoracic paraspinals PT-OP-K Range of Motion Start: 07/11/22 14:19 Freq: Status: Active Protocol: Document 03/08/23 12:52 DCW (Rec: 03/08/23 12:59 DCW [id number]) Cervical Spine Range of Motion Cervical Spine Active Degrees Testing Position Sitting Flexion 45 Extension 35 Rotation Left 39 Rotation Right 52 Lateral Flexion Left 33 Lateral Flexion Right 21 ROM Limitations Soft Tissue Tightness, Contracture,Bony Restriction, Muscle Tone,Pain Lumbar Spine Range of Motion Lumbar Spine Active Degrees Testing Position Standing Flexion 45 Extension 14 ROM Limitations Soft Tissue Tightness, Contracture,Bony Restriction, Muscle Tone,Pain PT-OP-L Special Tests Start: 07/11/22 14:19 Freq: Status: Active Protocol: Document 03/08/23 12:52 DCW (Rec: 03/08/23 12:59 DCW [id number]) Special Tests Cervical Spine Special Tests Slump Test Results Negative Traction Test Results Mild pain relief Spurling's Test Test Results Negative Passive Neck Flexion Test Results Negative Foraminal Compression Test Results Negative Alar Ligament Test Results Negative PT-OP-O Vestibular Start: 07/11/22 14:19 Freq: Status: Active Protocol: Document 07/11/22 11:15 DCW (Rec: 07/11/22 14:23 DCW [id number]) Vestibular Assessment Screening Tests Vestibular Artery Screen Negative Sharp-Selena Test Negative Visual Testing Smooth Pursuits Horizontal WNL Smooth Pursuits Vertical WNL Saccades Horizontal WNL Saccades Vertical WNL Heave Test Positive Right Thrust Head Positive Right Positional Testing [place]-Hallpike Negative Left,Negative Right Rolling Test Negative Left,Negative Right Comments Vestibular Comments Pt reports vertigo/dizziness in all positions, worse with left-side dependent, but zero signs of nystagmus. Pt also has poor cervical extension and rotation, limiting proper positioning PT-OP-Q Treatments Start: 07/11/22 14:19 Freq: Status: Active Protocol: Document 04/20/23 12:15 DCW (Rec: 04/20/23 12:58 DCW [id number]) Manual Therapy Treatment Soft Tissue Mobilization Lumbar Paraspinals Body Location QL, Paraspinals, parascapulars Mobilization Type Sustained Pressure,Trigger Point Release Intensity/Depth Moderate Body Position Prone Cervical Paraspinals Body Location UT, Paraspinals, Scalenes, Levator Mobilization Type Sustained Pressure,Trigger Point Release Intensity/Depth Moderate Body Position Supine Joint Mobilizations Lumbar Joint L1-5 Direction P->A Grade III Body Position Prone PT-OP-T Assessment and Plan Start: 07/11/22 14:19 Freq: Status: Active Protocol: Document 04/20/23 12:15 DCW (Rec: 04/20/23 12:58 DCW [id number]) Physical Therapy Assessment Impairments Impairments Balance,Functional Activities, Functional Mobility,Gait, Integument,Pain,Posture,ROM, Soft Tissue Mobility,Strength, Tone,Vestibular Goals Three Impairment Pt experiences dizziness with positional changes Production Control Coordinator Goal (LTG) Pt to report no episodes of dizziness while lying in bed for one full week to improve sleep pattern LTG Duration Met Two Impairment Left cervical rotation limited to 26? Production Control Coordinator Goal (LTG) Pt to increase left cervical rotation by at least 19? to 45 ? in order to improve ability to turn head to look for traffic while driving. LTG Duration 03/06/23 - Improving One Impairment Pt does not have an appropriate home exercise program Short Term Goal (STG) Pt to be independent and compliant with an appropriate HEP STG Duration 02/03/23 Assessment Summary Assessment Pt lumbar mobility continues to show good progress, good response to treatment. May benefit from return to focus on attempted core and spine strengthening. Physical Therapy Plan Frequency and Duration Frequency of Treatment 2x/Week Plan of Care Start Date 03/08/23 Plan of Care End Date 06/06/23 Therapeutic Interventions Therapeutic Interventions Aquatic Therapy,Balance Training,Gait Training,Home Exercise Program,Joint Mobilizations,Manual Therapy, Neuromuscular Re-education, Patient/Caregiver Education, Self-Care/Home Management,Soft Tissue Mobilization, Therapeutic Activities, Therapeutic Exercises, Vestibular Rehabilitation Modalities Cold Pack/Ice Massage,Electric Stimulation,Hot Packs, Ultrasound Next Visit Focus/Plan Next Note Type Treatment Note Next Visit Plan Cervical and lumbar STM/ stretching, core strengthening
--- NOTE | 2023-04-25 12:45 | PT.OTN ---
Current Diagnoses Benign paroxysmal vertigo, unspecified ear (04/25/23) Stiffness of other specified joint, not elsewhere classified (04/25/23) Spinal stenosis, lumbar region with neurogenic claudication (04/25/23) Intervertebral disc disorders with myelopathy, thoracic region (04/25/23) Other intervertebral disc displacement, lumbar region (04/25/23) Other intervertebral disc degeneration, lumbar region (04/25/23) Cervicalgia (04/25/23) Physical Therapy Treatment Note PT-OP-A Visit Information Start: 07/11/22 14:19 Freq: Status: Active Protocol: Document 04/25/23 12:00 DCW (Rec: 04/25/23 12:45 DCW [id number]) Out-Patient Physical Therapy Visit Information Visit Information Visit Type Treatment Note Visit Start Time 12:00 Visit Stop Time 12:45 Total Visit Minutes 45 Visit Number 45 Number of STAFF INTERNIST OFFICE BASED ONLY Visits 0 Evaluation Information Evaluation Date 07/11/22 PT-OP-B Current Condition Start: 07/11/22 14:19 Freq: Status: Active Protocol: Document 07/11/22 11:15 DCW (Rec: 07/11/22 17:44 DCW [id number]) Current Condition History of Current Condition Onset Date Long-standing history Current Complaints Dizziness, cervical pain, thoracic pain, lumbar pain History of Current Condition Pt is a 57 year old male very well known to this clinic presenting with a multitude of complaints and ailments. Pt was recently seen at this facility following ankle surgery ~1 year ago, after which he had a sudden onset of new autoimmune disease, which left him hospitalized for one month, greatly setting back his recovery for his ankle. Due to poor gait, repeatedly twisting his ankle, and multiple falls, pt began to have significant pain in his mid- and low-back, as well as his right hip. Additionally, pt has been complaining of ongoing dizziness for the past six months, typically with various head turns, lasting multiple minutes to half an hour. Pt has had multiple surgeries in the past, including, but not limited to, ankle surgery, cervical fusion (s/p ~10 years), and thoracic outlet syndrome surgery. Treatment Goals Patient/Caregiver Goals Improve mobility by decreasing back pain PT-OP-C Subjective Start: 07/11/22 14:19 Freq: Status: Active Protocol: Document 04/25/23 12:00 DCW (Rec: 04/25/23 12:45 DCW [id number]) OP-PT Subjective Patient Comments Patient Comments Pt comes in today following an hour of cardio from pulmonary rehab. PT-OP-F Manual Assessment Start: 07/11/22 14:19 Freq: Status: Active Protocol: Document 03/08/23 12:52 DCW (Rec: 03/08/23 12:59 DCW [id number]) Manual Assessments Soft Tissue Assessment Soft Tissue Mobility Assessment Moderate tone with tenderness to palpation 2/4: Pain with wincing along bilateral cervical and lumbar paraspinals, upper trap, levator scap, SCM, and QL. Tenderness to palpation 1/4: Complaint of pain along thoracic paraspinals PT-OP-K Range of Motion Start: 07/11/22 14:19 Freq: Status: Active Protocol: Document 03/08/23 12:52 DCW (Rec: 03/08/23 12:59 DCW [id number]) Cervical Spine Range of Motion Cervical Spine Active Degrees Testing Position Sitting Flexion 45 Extension 35 Rotation Left 39 Rotation Right 52 Lateral Flexion Left 33 Lateral Flexion Right 21 ROM Limitations Soft Tissue Tightness, Contracture,Bony Restriction, Muscle Tone,Pain Lumbar Spine Range of Motion Lumbar Spine Active Degrees Testing Position Standing Flexion 45 Extension 14 ROM Limitations Soft Tissue Tightness, Contracture,Bony Restriction, Muscle Tone,Pain PT-OP-L Special Tests Start: 07/11/22 14:19 Freq: Status: Active Protocol: Document 03/08/23 12:52 DCW (Rec: 03/08/23 12:59 DCW [id number]) Special Tests Cervical Spine Special Tests Slump Test Results Negative Traction Test Results Mild pain relief Spurling's Test Test Results Negative Passive Neck Flexion Test Results Negative Foraminal Compression Test Results Negative Alar Ligament Test Results Negative PT-OP-O Vestibular Start: 07/11/22 14:19 Freq: Status: Active Protocol: Document 07/11/22 11:15 DCW (Rec: 07/11/22 14:23 DCW [id number]) Vestibular Assessment Screening Tests Vestibular Artery Screen Negative Sharp-Selena Test Negative Visual Testing Smooth Pursuits Horizontal WNL Smooth Pursuits Vertical WNL Saccades Horizontal WNL Saccades Vertical WNL Heave Test Positive Right Thrust Head Positive Right Positional Testing Samantha-Hallpike Negative Left,Negative Right Rolling Test Negative Left,Negative Right Comments Vestibular Comments Pt reports vertigo/dizziness in all positions, worse with left-side dependent, but zero signs of nystagmus. Pt also has poor cervical extension and rotation, limiting proper positioning PT-OP-Q Treatments Start: 07/11/22 14:19 Freq: Status: Active Protocol: Document 04/25/23 12:00 DCW (Rec: 04/25/23 12:45 DCW [id number]) Manual Therapy Treatment Soft Tissue Mobilization Lumbar Paraspinals Body Location QL, Paraspinals, parascapulars Mobilization Type Sustained Pressure,Trigger Point Release Intensity/Depth Moderate Body Position Prone Cervical Paraspinals Body Location UT, Paraspinals, Scalenes, Levator Mobilization Type Sustained Pressure,Trigger Point Release Intensity/Depth Moderate Body Position Supine Joint Mobilizations Lumbar Joint L1-5 Direction P->A Grade III Body Position Prone PT-OP-T Assessment and Plan Start: 07/11/22 14:19 Freq: Status: Active Protocol: Document 04/25/23 12:00 DCW (Rec: 04/25/23 12:45 DCW [id number]) Physical Therapy Assessment Impairments Impairments Balance,Functional Activities, Functional Mobility,Gait, Integument,Pain,Posture,ROM, Soft Tissue Mobility,Strength, Tone,Vestibular Goals Three Impairment Pt experiences dizziness with positional changes Tap Builder Goal (LTG) Pt to report no episodes of dizziness while lying in bed for one full week to improve sleep pattern LTG Duration Met Two Impairment Left cervical rotation limited to 26? Half-Way Goal (LTG) Pt to increase left cervical rotation by at least 19? to 45 ? in order to improve ability to turn head to look for traffic while driving. LTG Duration 03/06/23 - Improving One Impairment Pt does not have an appropriate home exercise program Short Term Goal (STG) Pt to be independent and compliant with an appropriate HEP STG Duration 02/03/23 Assessment Summary Assessment Spent time today discussing importance of balance and LE strengthening adding to improved stability and low back function. Suggested balance challenges and hip strengthening exercises for pt to add to HEP. Physical Therapy Plan Frequency and Duration Frequency of Treatment 2x/Week Plan of Care Start Date 03/08/23 Plan of Care End Date 06/06/23 Therapeutic Interventions Therapeutic Interventions Aquatic Therapy,Balance Training,Gait Training,Home Exercise Program,Joint Mobilizations,Manual Therapy, Neuromuscular Re-education, Patient/Caregiver Education, Self-Care/Home Management,Soft Tissue Mobilization, Therapeutic Activities, Therapeutic Exercises, Vestibular Rehabilitation Modalities Cold Pack/Ice Massage,Electric Stimulation,Hot Packs, Ultrasound Next Visit Focus/Plan Next Note Type Treatment Note Next Visit Plan Cervical and lumbar STM/ stretching, core strengthening
--- NOTE | 2023-04-27 14:12 | PT.OTN ---
Current Diagnoses Benign paroxysmal vertigo, unspecified ear (04/27/23) Stiffness of other specified joint, not elsewhere classified (04/27/23) Spinal stenosis, lumbar region with neurogenic claudication (04/27/23) Intervertebral disc disorders with myelopathy, thoracic region (04/27/23) Other intervertebral disc displacement, lumbar region (04/27/23) Other intervertebral disc degeneration, lumbar region (04/27/23) Cervicalgia (04/27/23) Physical Therapy Treatment Note PT-OP-A Visit Information Start: 07/11/22 14:19 Freq: Status: Active Protocol: Document 04/27/23 13:30 DCW (Rec: 04/27/23 14:12 DCW [id number]) Out-Patient Physical Therapy Visit Information Visit Information Visit Type Progress Note Visit Start Time 13:30 Visit Stop Time 14:15 Total Visit Minutes 45 Visit Number 46 Number of C SOFTWARE DEVELOPER Visits 0 Evaluation Information Evaluation Date 07/11/22 PT-OP-B Current Condition Start: 07/11/22 14:19 Freq: Status: Active Protocol: Document 07/11/22 11:15 DCW (Rec: 07/11/22 17:44 DCW [id number]) Current Condition History of Current Condition Onset Date Long-standing history Current Complaints Dizziness, cervical pain, thoracic pain, lumbar pain History of Current Condition Pt is a 57 year old male very well known to this clinic presenting with a multitude of complaints and ailments. Pt was recently seen at this facility following ankle surgery ~1 year ago, after which he had a sudden onset of new autoimmune disease, which left him hospitalized for one month, greatly setting back his recovery for his ankle. Due to poor gait, repeatedly twisting his ankle, and multiple falls, pt began to have significant pain in his mid- and low-back, as well as his right hip. Additionally, pt has been complaining of ongoing dizziness for the past six months, typically with various head turns, lasting multiple minutes to half an hour. Pt has had multiple surgeries in the past, including, but not limited to, ankle surgery, cervical fusion (s/p ~10 years), and thoracic outlet syndrome surgery. Treatment Goals Patient/Caregiver Goals Improve mobility by decreasing back pain PT-OP-C Subjective Start: 07/11/22 14:19 Freq: Status: Active Protocol: Document 04/27/23 13:30 DCW (Rec: 04/27/23 14:12 DCW [id number]) OP-PT Subjective Patient Comments Patient Comments Shoulders, hips, and knees are killing me. PT-OP-F Manual Assessment Start: 07/11/22 14:19 Freq: Status: Active Protocol: Document 03/08/23 12:52 DCW (Rec: 03/08/23 12:59 DCW [id number]) Manual Assessments Soft Tissue Assessment Soft Tissue Mobility Assessment Moderate tone with tenderness to palpation 2/4: Pain with wincing along bilateral cervical and lumbar paraspinals, upper trap, levator scap, SCM, and QL. Tenderness to palpation 1/4: Complaint of pain along thoracic paraspinals PT-OP-K Range of Motion Start: 07/11/22 14:19 Freq: Status: Active Protocol: Document 03/08/23 12:52 DCW (Rec: 03/08/23 12:59 DCW [id number]) Cervical Spine Range of Motion Cervical Spine Active Degrees Testing Position Sitting Flexion 45 Extension 35 Rotation Left 39 Rotation Right 52 Lateral Flexion Left 33 Lateral Flexion Right 21 ROM Limitations Soft Tissue Tightness, Contracture,Bony Restriction, Muscle Tone,Pain Lumbar Spine Range of Motion Lumbar Spine Active Degrees Testing Position Standing Flexion 45 Extension 14 ROM Limitations Soft Tissue Tightness, Contracture,Bony Restriction, Muscle Tone,Pain PT-OP-L Special Tests Start: 07/11/22 14:19 Freq: Status: Active Protocol: Document 03/08/23 12:52 DCW (Rec: 03/08/23 12:59 DCW [id number]) Special Tests Cervical Spine Special Tests Slump Test Results Negative Traction Test Results Mild pain relief Spurling's Test Test Results Negative Passive Neck Flexion Test Results Negative Foraminal Compression Test Results Negative Alar Ligament Test Results Negative PT-OP-O Vestibular Start: 07/11/22 14:19 Freq: Status: Active Protocol: Document 07/11/22 11:15 DCW (Rec: 07/11/22 14:23 DCW [id number]) Vestibular Assessment Screening Tests Vestibular Artery Screen Negative Sharp-Selena Test Negative Visual Testing Smooth Pursuits Horizontal WNL Smooth Pursuits Vertical WNL Saccades Horizontal WNL Saccades Vertical WNL Heave Test Positive Right Thrust Head Positive Right Positional Testing [place]-Hallpike Negative Left,Negative Right Rolling Test Negative Left,Negative Right Comments Vestibular Comments Pt reports vertigo/dizziness in all positions, worse with left-side dependent, but zero signs of nystagmus. Pt also has poor cervical extension and rotation, limiting proper positioning PT-OP-Q Treatments Start: 07/11/22 14:19 Freq: Status: Active Protocol: Document 04/27/23 13:30 DCW (Rec: 04/27/23 14:12 DCW [id number]) Manual Therapy Treatment Soft Tissue Mobilization Lumbar Paraspinals Body Location QL, Paraspinals, parascapulars Mobilization Type Sustained Pressure,Trigger Point Release Intensity/Depth Moderate Body Position Prone Cervical Paraspinals Body Location UT, Paraspinals, Scalenes, Levator Mobilization Type Sustained Pressure,Trigger Point Release Intensity/Depth Moderate Body Position Supine Joint Mobilizations Lumbar Joint L1-5 Direction P->A Grade III Body Position Prone PT-OP-T Assessment and Plan Start: 07/11/22 14:19 Freq: Status: Active Protocol: Document 04/27/23 13:30 DCW (Rec: 04/27/23 14:12 DCW [id number]) Physical Therapy Assessment Impairments Impairments Balance,Functional Activities, Functional Mobility,Gait, Integument,Pain,Posture,ROM, Soft Tissue Mobility,Strength, Tone,Vestibular Goals Three Impairment Pt experiences dizziness with positional changes Custodial Goal (LTG) Pt to report no episodes of dizziness while lying in bed for one full week to improve sleep pattern LTG Duration Met Two Impairment Left cervical rotation limited to 26? Custodial Goal (LTG) Pt to increase left cervical rotation by at least 19? to 45 ? in order to improve ability to turn head to look for traffic while driving. LTG Duration 03/06/23 - Improving One Impairment Pt does not have an appropriate home exercise program Short Term Goal (STG) Pt to be independent and compliant with an appropriate HEP STG Duration 02/03/23 Assessment Summary Assessment Pt continues to show improvement overall, having less discomfort with normal daily activities, tone along lumbar spine much improved. Physical Therapy Plan Frequency and Duration Frequency of Treatment 2x/Week Plan of Care Start Date 03/08/23 Plan of Care End Date 06/06/23 Therapeutic Interventions Therapeutic Interventions Aquatic Therapy,Balance Training,Gait Training,Home Exercise Program,Joint Mobilizations,Manual Therapy, Neuromuscular Re-education, Patient/Caregiver Education, Self-Care/Home Management,Soft Tissue Mobilization, Therapeutic Activities, Therapeutic Exercises, Vestibular Rehabilitation Modalities Cold Pack/Ice Massage,Electric Stimulation,Hot Packs, Ultrasound Next Visit Focus/Plan Next Note Type Treatment Note Next Visit Plan Cervical and lumbar STM/ stretching, core strengthening
--- NOTE | 2023-05-04 14:12 | PT.OTN ---
Current Diagnoses Benign paroxysmal vertigo, unspecified ear (05/04/23) Stiffness of other specified joint, not elsewhere classified (05/04/23) Spinal stenosis, lumbar region with neurogenic claudication (05/04/23) Intervertebral disc disorders with myelopathy, thoracic region (05/04/23) Other intervertebral disc displacement, lumbar region (05/04/23) Other intervertebral disc degeneration, lumbar region (05/04/23) Cervicalgia (05/04/23) Physical Therapy Treatment Note PT-OP-A Visit Information Start: 07/11/22 14:19 Freq: Status: Active Protocol: Document 05/04/23 13:34 DCW (Rec: 05/04/23 14:11 DCW [id number]) Out-Patient Physical Therapy Visit Information Visit Information Visit Type Treatment Note Visit Start Time 13:34 Visit Stop Time 14:15 Total Visit Minutes 41 Visit Number 47 Number of BUILDING MATERIALS SALES ATTENDANT Visits 0 Evaluation Information Evaluation Date 07/11/22 PT-OP-B Current Condition Start: 07/11/22 14:19 Freq: Status: Active Protocol: Document 07/11/22 11:15 DCW (Rec: 07/11/22 17:44 DCW [id number]) Current Condition History of Current Condition Onset Date Long-standing history Current Complaints Dizziness, cervical pain, thoracic pain, lumbar pain History of Current Condition Pt is a 57 year old male very well known to this clinic presenting with a multitude of complaints and ailments. Pt was recently seen at this facility following ankle surgery ~1 year ago, after which he had a sudden onset of new autoimmune disease, which left him hospitalized for one month, greatly setting back his recovery for his ankle. Due to poor gait, repeatedly twisting his ankle, and multiple falls, pt began to have significant pain in his mid- and low-back, as well as his right hip. Additionally, pt has been complaining of ongoing dizziness for the past six months, typically with various head turns, lasting multiple minutes to half an hour. Pt has had multiple surgeries in the past, including, but not limited to, ankle surgery, cervical fusion (s/p ~10 years), and thoracic outlet syndrome surgery. Treatment Goals Patient/Caregiver Goals Improve mobility by decreasing back pain PT-OP-C Subjective Start: 07/11/22 14:19 Freq: Status: Active Protocol: Document 05/04/23 13:34 DCW (Rec: 05/04/23 14:11 DCW [id number]) OP-PT Subjective Patient Comments Patient Comments Everything hurts like hell. NOtes he pushes it during pulmonary rehab, his back and legs are feeling pretty sore. PT-OP-F Manual Assessment Start: 07/11/22 14:19 Freq: Status: Active Protocol: Document 03/08/23 12:52 DCW (Rec: 03/08/23 12:59 DCW [id number]) Manual Assessments Soft Tissue Assessment Soft Tissue Mobility Assessment Moderate tone with tenderness to palpation 2/4: Pain with wincing along bilateral cervical and lumbar paraspinals, upper trap, levator scap, SCM, and QL. Tenderness to palpation 1/4: Complaint of pain along thoracic paraspinals PT-OP-K Range of Motion Start: 07/11/22 14:19 Freq: Status: Active Protocol: Document 03/08/23 12:52 DCW (Rec: 03/08/23 12:59 DCW [id number]) Cervical Spine Range of Motion Cervical Spine Active Degrees Testing Position Sitting Flexion 45 Extension 35 Rotation Left 39 Rotation Right 52 Lateral Flexion Left 33 Lateral Flexion Right 21 ROM Limitations Soft Tissue Tightness, Contracture,Bony Restriction, Muscle Tone,Pain Lumbar Spine Range of Motion Lumbar Spine Active Degrees Testing Position Standing Flexion 45 Extension 14 ROM Limitations Soft Tissue Tightness, Contracture,Bony Restriction, Muscle Tone,Pain PT-OP-L Special Tests Start: 07/11/22 14:19 Freq: Status: Active Protocol: Document 03/08/23 12:52 DCW (Rec: 03/08/23 12:59 DCW [id number]) Special Tests Cervical Spine Special Tests Slump Test Results Negative Traction Test Results Mild pain relief Spurling's Test Test Results Negative Passive Neck Flexion Test Results Negative Foraminal Compression Test Results Negative Alar Ligament Test Results Negative PT-OP-O Vestibular Start: 07/11/22 14:19 Freq: Status: Active Protocol: Document 07/11/22 11:15 DCW (Rec: 07/11/22 14:23 DCW [id number]) Vestibular Assessment Screening Tests Vestibular Artery Screen Negative Sharp-Selena Test Negative Visual Testing Smooth Pursuits Horizontal WNL Smooth Pursuits Vertical WNL Saccades Horizontal WNL Saccades Vertical WNL Heave Test Positive Right Thrust Head Positive Right Positional Testing [place]-Hallpike Negative Left,Negative Right Rolling Test Negative Left,Negative Right Comments Vestibular Comments Pt reports vertigo/dizziness in all positions, worse with left-side dependent, but zero signs of nystagmus. Pt also has poor cervical extension and rotation, limiting proper positioning PT-OP-Q Treatments Start: 07/11/22 14:19 Freq: Status: Active Protocol: Document 05/04/23 13:34 DC (Rec: 05/04/23 14:11 DCW [id number]) Manual Therapy Treatment Soft Tissue Mobilization Lumbar Paraspinals Body Location QL, Paraspinals, parascapulars Mobilization Type Sustained Pressure,Trigger Point Release Intensity/Depth Moderate Body Position Prone Cervical Paraspinals Body Location UT, Paraspinals, Scalenes, Levator Mobilization Type Sustained Pressure,Trigger Point Release Intensity/Depth Moderate Body Position Supine Joint Mobilizations Lumbar Joint L1-5 Direction P->A Grade III Body Position Prone PT-OP-T Assessment and Plan Start: 07/11/22 14:19 Freq: Status: Active Protocol: Document 05/04/23 13:34 DC (Rec: 05/04/23 14:11 DCW [id number]) Physical Therapy Assessment Impairments Impairments Balance,Functional Activities, Functional Mobility,Gait, Integument,Pain,Posture,ROM, Soft Tissue Mobility,Strength, Tone,Vestibular Goals Three Impairment Pt experiences dizziness with positional changes Nursing Home Goal (LTG) Pt to report no episodes of dizziness while lying in bed for one full week to improve sleep pattern LTG Duration Met Two Impairment Left cervical rotation limited to 26? Pit And Auxiliaries Supervisor Goal (LTG) Pt to increase left cervical rotation by at least 19? to 45 ? in order to improve ability to turn head to look for traffic while driving. LTG Duration 03/06/23 - Improving One Impairment Pt does not have an appropriate home exercise program Short Term Goal (STG) Pt to be independent and compliant with an appropriate HEP STG Duration 02/03/23 Assessment Summary Assessment Pt noting some increased soreness in his low back, but no notable increased tone throughout lumbar musculature. Physical Therapy Plan Frequency and Duration Frequency of Treatment 2x/Week Plan of Care Start Date 03/08/23 Plan of Care End Date 06/06/23 Therapeutic Interventions Therapeutic Interventions Aquatic Therapy,Balance Training,Gait Training,Home Exercise Program,Joint Mobilizations,Manual Therapy, Neuromuscular Re-education, Patient/Caregiver Education, Self-Care/Home Management,Soft Tissue Mobilization, Therapeutic Activities, Therapeutic Exercises, Vestibular Rehabilitation Modalities Cold Pack/Ice Massage,Electric Stimulation,Hot Packs, Ultrasound Next Visit Focus/Plan Next Note Type Treatment Note Next Visit Plan Cervical and lumbar STM/ stretching, core strengthening
--- NOTE | 2023-05-09 16:31 | PT.OTN ---
Current Diagnoses Benign paroxysmal vertigo, unspecified ear (05/09/23) Stiffness of other specified joint, not elsewhere classified (05/09/23) Spinal stenosis, lumbar region with neurogenic claudication (05/09/23) Intervertebral disc disorders with myelopathy, thoracic region (05/09/23) Other intervertebral disc displacement, lumbar region (05/09/23) Other intervertebral disc degeneration, lumbar region (05/09/23) Cervicalgia (05/09/23) Physical Therapy Treatment Note PT-OP-A Visit Information Start: 07/11/22 14:19 Freq: Status: Active Protocol: Document 05/09/23 15:45 DCW (Rec: 05/09/23 16:31 DCW [id number]) Out-Patient Physical Therapy Visit Information Visit Information Visit Type Treatment Note Visit Start Time 15:45 Visit Stop Time 16:30 Total Visit Minutes 45 Visit Number 48 Number of FLORIST MANAGER Visits 0 Evaluation Information Evaluation Date 07/11/22 PT-OP-B Current Condition Start: 07/11/22 14:19 Freq: Status: Active Protocol: Document 07/11/22 11:15 DCW (Rec: 07/11/22 17:44 DCW [id number]) Current Condition History of Current Condition Onset Date Long-standing history Current Complaints Dizziness, cervical pain, thoracic pain, lumbar pain History of Current Condition Pt is a 57 year old male very well known to this clinic presenting with a multitude of complaints and ailments. Pt was recently seen at this facility following ankle surgery ~1 year ago, after which he had a sudden onset of new autoimmune disease, which left him hospitalized for one month, greatly setting back his recovery for his ankle. Due to poor gait, repeatedly twisting his ankle, and multiple falls, pt began to have significant pain in his mid- and low-back, as well as his right hip. Additionally, pt has been complaining of ongoing dizziness for the past six months, typically with various head turns, lasting multiple minutes to half an hour. Pt has had multiple surgeries in the past, including, but not limited to, ankle surgery, cervical fusion (s/p ~10 years), and thoracic outlet syndrome surgery. Treatment Goals Patient/Caregiver Goals Improve mobility by decreasing back pain PT-OP-C Subjective Start: 07/11/22 14:19 Freq: Status: Active Protocol: Document 05/09/23 15:45 DCW (Rec: 05/09/23 16:31 DCW [id number]) OP-PT Subjective Patient Comments Patient Comments Pt reports his low back is bothering him today. PT-OP-F Manual Assessment Start: 07/11/22 14:19 Freq: Status: Active Protocol: Document 03/08/23 12:52 DCW (Rec: 03/08/23 12:59 DCW [id number]) Manual Assessments Soft Tissue Assessment Soft Tissue Mobility Assessment Moderate tone with tenderness to palpation 2/4: Pain with wincing along bilateral cervical and lumbar paraspinals, upper trap, levator scap, SCM, and QL. Tenderness to palpation 1/4: Complaint of pain along thoracic paraspinals PT-OP-K Range of Motion Start: 07/11/22 14:19 Freq: Status: Active Protocol: Document 03/08/23 12:52 DCW (Rec: 03/08/23 12:59 DCW [id number]) Cervical Spine Range of Motion Cervical Spine Active Degrees Testing Position Sitting Flexion 45 Extension 35 Rotation Left 39 Rotation Right 52 Lateral Flexion Left 33 Lateral Flexion Right 21 ROM Limitations Soft Tissue Tightness, Contracture,Bony Restriction, Muscle Tone,Pain Lumbar Spine Range of Motion Lumbar Spine Active Degrees Testing Position Standing Flexion 45 Extension 14 ROM Limitations Soft Tissue Tightness, Contracture,Bony Restriction, Muscle Tone,Pain PT-OP-L Special Tests Start: 07/11/22 14:19 Freq: Status: Active Protocol: Document 03/08/23 12:52 DCW (Rec: 03/08/23 12:59 DCW [id number]) Special Tests Cervical Spine Special Tests Slump Test Results Negative Traction Test Results Mild pain relief Spurling's Test Test Results Negative Passive Neck Flexion Test Results Negative Foraminal Compression Test Results Negative Alar Ligament Test Results Negative PT-OP-O Vestibular Start: 07/11/22 14:19 Freq: Status: Active Protocol: Document 07/11/22 11:15 DCW (Rec: 07/11/22 14:23 DCW [id number]) Vestibular Assessment Screening Tests Vestibular Artery Screen Negative Sharp-Selena Test Negative Visual Testing Smooth Pursuits Horizontal WNL Smooth Pursuits Vertical WNL Saccades Horizontal WNL Saccades Vertical WNL Heave Test Positive Right Thrust Head Positive Right Positional Testing [place]-Hallpike Negative Left,Negative Right Rolling Test Negative Left,Negative Right Comments Vestibular Comments Pt reports vertigo/dizziness in all positions, worse with left-side dependent, but zero signs of nystagmus. Pt also has poor cervical extension and rotation, limiting proper positioning PT-OP-Q Treatments Start: 07/11/22 14:19 Freq: Status: Active Protocol: Document 05/09/23 15:45 DCW (Rec: 05/09/23 16:31 DCW [id number]) Manual Therapy Treatment Soft Tissue Mobilization Lumbar Paraspinals Body Location QL, Paraspinals, parascapulars Mobilization Type Sustained Pressure,Trigger Point Release Intensity/Depth Moderate Body Position Prone Cervical Paraspinals Body Location UT, Paraspinals, Scalenes, Levator Mobilization Type Sustained Pressure,Trigger Point Release Intensity/Depth Moderate Body Position Supine Joint Mobilizations Lumbar Joint L1-5 Direction P->A Grade III Body Position Prone PT-OP-T Assessment and Plan Start: 07/11/22 14:19 Freq: Status: Active Protocol: Document 05/09/23 15:45 DCW (Rec: 05/09/23 16:31 DCW [id number]) Physical Therapy Assessment Impairments Impairments Balance,Functional Activities, Functional Mobility,Gait, Integument,Pain,Posture,ROM, Soft Tissue Mobility,Strength, Tone,Vestibular Goals Three Impairment Pt experiences dizziness with positional changes Water Meter Installer Goal (LTG) Pt to report no episodes of dizziness while lying in bed for one full week to improve sleep pattern LTG Duration Met Two Impairment Left cervical rotation limited to 26? Group Home Goal (LTG) Pt to increase left cervical rotation by at least 19? to 45 ? in order to improve ability to turn head to look for traffic while driving. LTG Duration 03/06/23 - Improving One Impairment Pt does not have an appropriate home exercise program Short Term Goal (STG) Pt to be independent and compliant with an appropriate HEP STG Duration 02/03/23 Assessment Summary Assessment Significantly increased L lumbar tone today, unclear of cause. Pt worried that increase in activity from pulmonary therapy may be the cause, however pt does spend time working on his vehicle and is in process of packing up his home, which is another potential cause. Physical Therapy Plan Frequency and Duration Frequency of Treatment 2x/Week Plan of Care Start Date 03/08/23 Plan of Care End Date 06/06/23 Therapeutic Interventions Therapeutic Interventions Aquatic Therapy,Balance Training,Gait Training,Home Exercise Program,Joint Mobilizations,Manual Therapy, Neuromuscular Re-education, Patient/Caregiver Education, Self-Care/Home Management,Soft Tissue Mobilization, Therapeutic Activities, Therapeutic Exercises, Vestibular Rehabilitation Modalities Cold Pack/Ice Massage,Electric Stimulation,Hot Packs, Ultrasound Next Visit Focus/Plan Next Note Type Treatment Note Next Visit Plan Cervical and lumbar STM/ stretching, core strengthening
--- NOTE | 2023-05-16 13:29 | PT.OTN ---
Current Diagnoses Benign paroxysmal vertigo, unspecified ear (05/16/23) Stiffness of other specified joint, not elsewhere classified (05/16/23) Spinal stenosis, lumbar region with neurogenic claudication (05/16/23) Intervertebral disc disorders with myelopathy, thoracic region (05/16/23) Other intervertebral disc displacement, lumbar region (05/16/23) Other intervertebral disc degeneration, lumbar region (05/16/23) Cervicalgia (05/16/23) Physical Therapy Treatment Note PT-OP-A Visit Information Start: 07/11/22 14:19 Freq: Status: Active Protocol: Document 05/16/23 12:45 DCW (Rec: 05/16/23 13:29 DCW [id number]) Out-Patient Physical Therapy Visit Information Visit Information Visit Type Treatment Note Visit Start Time 12:45 Visit Stop Time 13:30 Total Visit Minutes 45 Visit Number 49 Number of HAND TOUCH UP PAINTER Visits 0 Evaluation Information Evaluation Date 07/11/22 PT-OP-B Current Condition Start: 07/11/22 14:19 Freq: Status: Active Protocol: Document 07/11/22 11:15 DCW (Rec: 07/11/22 17:44 DCW [id number]) Current Condition History of Current Condition Onset Date Long-standing history Current Complaints Dizziness, cervical pain, thoracic pain, lumbar pain History of Current Condition Pt is a 57 year old male very well known to this clinic presenting with a multitude of complaints and ailments. Pt was recently seen at this facility following ankle surgery ~1 year ago, after which he had a sudden onset of new autoimmune disease, which left him hospitalized for one month, greatly setting back his recovery for his ankle. Due to poor gait, repeatedly twisting his ankle, and multiple falls, pt began to have significant pain in his mid- and low-back, as well as his right hip. Additionally, pt has been complaining of ongoing dizziness for the past six months, typically with various head turns, lasting multiple minutes to half an hour. Pt has had multiple surgeries in the past, including, but not limited to, ankle surgery, cervical fusion (s/p ~10 years), and thoracic outlet syndrome surgery. Treatment Goals Patient/Caregiver Goals Improve mobility by decreasing back pain PT-OP-C Subjective Start: 07/11/22 14:19 Freq: Status: Active Protocol: Document 05/16/23 12:45 DCW (Rec: 05/16/23 13:29 DCW [id number]) OP-PT Subjective Patient Comments Patient Comments Pt just coming from 40 minutes of straight cardio at cardiopulmonary rehab. PT-OP-F Manual Assessment Start: 07/11/22 14:19 Freq: Status: Active Protocol: Document 03/08/23 12:52 DCW (Rec: 03/08/23 12:59 DCW [id number]) Manual Assessments Soft Tissue Assessment Soft Tissue Mobility Assessment Moderate tone with tenderness to palpation 2/4: Pain with wincing along bilateral cervical and lumbar paraspinals, upper trap, levator scap, SCM, and QL. Tenderness to palpation 1/4: Complaint of pain along thoracic paraspinals PT-OP-K Range of Motion Start: 07/11/22 14:19 Freq: Status: Active Protocol: Document 03/08/23 12:52 DCW (Rec: 03/08/23 12:59 DCW [id number]) Cervical Spine Range of Motion Cervical Spine Active Degrees Testing Position Sitting Flexion 45 Extension 35 Rotation Left 39 Rotation Right 52 Lateral Flexion Left 33 Lateral Flexion Right 21 ROM Limitations Soft Tissue Tightness, Contracture,Bony Restriction, Muscle Tone,Pain Lumbar Spine Range of Motion Lumbar Spine Active Degrees Testing Position Standing Flexion 45 Extension 14 ROM Limitations Soft Tissue Tightness, Contracture,Bony Restriction, Muscle Tone,Pain PT-OP-L Special Tests Start: 07/11/22 14:19 Freq: Status: Active Protocol: Document 03/08/23 12:52 DCW (Rec: 03/08/23 12:59 DCW [id number]) Special Tests Cervical Spine Special Tests Slump Test Results Negative Traction Test Results Mild pain relief Spurling's Test Test Results Negative Passive Neck Flexion Test Results Negative Foraminal Compression Test Results Negative Alar Ligament Test Results Negative PT-OP-O Vestibular Start: 07/11/22 14:19 Freq: Status: Active Protocol: Document 07/11/22 11:15 DCW (Rec: 07/11/22 14:23 DCW [id number]) Vestibular Assessment Screening Tests Vestibular Artery Screen Negative Sharp-Selena Test Negative Visual Testing Smooth Pursuits Horizontal WNL Smooth Pursuits Vertical WNL Saccades Horizontal WNL Saccades Vertical WNL Heave Test Positive Right Thrust Head Positive Right Positional Testing Samantha-Hallpike Negative Left,Negative Right Rolling Test Negative Left,Negative Right Comments Vestibular Comments Pt reports vertigo/dizziness in all positions, worse with left-side dependent, but zero signs of nystagmus. Pt also has poor cervical extension and rotation, limiting proper positioning PT-OP-Q Treatments Start: 07/11/22 14:19 Freq: Status: Active Protocol: Document 05/16/23 12:45 DCW (Rec: 05/16/23 13:29 DCW [id number]) Manual Therapy Treatment Soft Tissue Mobilization Lumbar Paraspinals Body Location QL, Paraspinals, parascapulars Mobilization Type Sustained Pressure,Trigger Point Release Intensity/Depth Moderate Body Position Prone Cervical Paraspinals Body Location UT, Paraspinals, Scalenes, Levator Mobilization Type Sustained Pressure,Trigger Point Release Intensity/Depth Moderate Body Position Supine Joint Mobilizations Lumbar Joint L1-5 Direction P->A Grade III Body Position Prone PT-OP-T Assessment and Plan Start: 07/11/22 14:19 Freq: Status: Active Protocol: Document 05/16/23 12:45 DCW (Rec: 05/16/23 13:29 DCW [id number]) Physical Therapy Assessment Impairments Impairments Balance,Functional Activities, Functional Mobility,Gait, Integument,Pain,Posture,ROM, Soft Tissue Mobility,Strength, Tone,Vestibular Goals Three Impairment Pt experiences dizziness with positional changes Retirement Goal (LTG) Pt to report no episodes of dizziness while lying in bed for one full week to improve sleep pattern LTG Duration Met Two Impairment Left cervical rotation limited to 26? Retirement Goal (LTG) Pt to increase left cervical rotation by at least 19? to 45 ? in order to improve ability to turn head to look for traffic while driving. LTG Duration 03/06/23 - Improving One Impairment Pt does not have an appropriate home exercise program Short Term Goal (STG) Pt to be independent and compliant with an appropriate HEP STG Duration 02/03/23 Assessment Summary Assessment Once again on the upswing, much better tone management today vs last week, improved mobility with gait and getting onto/off of the treatment table. Physical Therapy Plan Frequency and Duration Frequency of Treatment 2x/Week Plan of Care Start Date 03/08/23 Plan of Care End Date 06/06/23 Therapeutic Interventions Therapeutic Interventions Aquatic Therapy,Balance Training,Gait Training,Home Exercise Program,Joint Mobilizations,Manual Therapy, Neuromuscular Re-education, Patient/Caregiver Education, Self-Care/Home Management,Soft Tissue Mobilization, Therapeutic Activities, Therapeutic Exercises, Vestibular Rehabilitation Modalities Cold Pack/Ice Massage,Electric Stimulation,Hot Packs, Ultrasound Next Visit Focus/Plan Next Note Type Treatment Note Next Visit Plan Cervical and lumbar STM/ stretching, core strengthening
--- NOTE | 2023-05-18 14:15 | PT.OTN ---
Current Diagnoses Benign paroxysmal vertigo, unspecified ear (05/18/23) Stiffness of other specified joint, not elsewhere classified (05/18/23) Spinal stenosis, lumbar region with neurogenic claudication (05/18/23) Intervertebral disc disorders with myelopathy, thoracic region (05/18/23) Other intervertebral disc displacement, lumbar region (05/18/23) Other intervertebral disc degeneration, lumbar region (05/18/23) Cervicalgia (05/18/23) Physical Therapy Treatment Note PT-OP-A Visit Information Start: 07/11/22 14:19 Freq: Status: Active Protocol: Document 05/18/23 13:41 DCW (Rec: 05/18/23 14:15 DCW [id number]) Out-Patient Physical Therapy Visit Information Visit Information Visit Type Treatment Note Visit Note 11 minutes late Visit Start Time 13:41 Visit Stop Time 14:15 Total Visit Minutes 34 Visit Number 50 Number of FRONT OFFICE JAVA DEVELOPER Visits 0 Evaluation Information Evaluation Date 07/11/22 PT-OP-B Current Condition Start: 07/11/22 14:19 Freq: Status: Active Protocol: Document 07/11/22 11:15 DCW (Rec: 07/11/22 17:44 DCW [id number]) Current Condition History of Current Condition Onset Date Long-standing history Current Complaints Dizziness, cervical pain, thoracic pain, lumbar pain History of Current Condition Pt is a 57 year old male very well known to this clinic presenting with a multitude of complaints and ailments. Pt was recently seen at this facility following ankle surgery ~1 year ago, after which he had a sudden onset of new autoimmune disease, which left him hospitalized for one month, greatly setting back his recovery for his ankle. Due to poor gait, repeatedly twisting his ankle, and multiple falls, pt began to have significant pain in his mid- and low-back, as well as his right hip. Additionally, pt has been complaining of ongoing dizziness for the past six months, typically with various head turns, lasting multiple minutes to half an hour. Pt has had multiple surgeries in the past, including, but not limited to, ankle surgery, cervical fusion (s/p ~10 years), and thoracic outlet syndrome surgery. Treatment Goals Patient/Caregiver Goals Improve mobility by decreasing back pain PT-OP-C Subjective Start: 07/11/22 14:19 Freq: Status: Active Protocol: Document 05/18/23 13:41 DCW (Rec: 05/18/23 14:15 DCW [id number]) OP-PT Subjective Patient Comments Patient Comments Pt admits his shoulder is bothing him today, unsure of the cause. PT-OP-F Manual Assessment Start: 07/11/22 14:19 Freq: Status: Active Protocol: Document 03/08/23 12:52 DCW (Rec: 03/08/23 12:59 DCW [id number]) Manual Assessments Soft Tissue Assessment Soft Tissue Mobility Assessment Moderate tone with tenderness to palpation 2/4: Pain with wincing along bilateral cervical and lumbar paraspinals, upper trap, levator scap, SCM, and QL. Tenderness to palpation 1/4: Complaint of pain along thoracic paraspinals PT-OP-K Range of Motion Start: 07/11/22 14:19 Freq: Status: Active Protocol: Document 03/08/23 12:52 DCW (Rec: 03/08/23 12:59 DCW [id number]) Cervical Spine Range of Motion Cervical Spine Active Degrees Testing Position Sitting Flexion 45 Extension 35 Rotation Left 39 Rotation Right 52 Lateral Flexion Left 33 Lateral Flexion Right 21 ROM Limitations Soft Tissue Tightness, Contracture,Bony Restriction, Muscle Tone,Pain Lumbar Spine Range of Motion Lumbar Spine Active Degrees Testing Position Standing Flexion 45 Extension 14 ROM Limitations Soft Tissue Tightness, Contracture,Bony Restriction, Muscle Tone,Pain PT-OP-L Special Tests Start: 07/11/22 14:19 Freq: Status: Active Protocol: Document 03/08/23 12:52 DCW (Rec: 03/08/23 12:59 DCW [id number]) Special Tests Cervical Spine Special Tests Slump Test Results Negative Traction Test Results Mild pain relief Spurling's Test Test Results Negative Passive Neck Flexion Test Results Negative Foraminal Compression Test Results Negative Alar Ligament Test Results Negative PT-OP-O Vestibular Start: 07/11/22 14:19 Freq: Status: Active Protocol: Document 07/11/22 11:15 DCW (Rec: 07/11/22 14:23 DCW [id number]) Vestibular Assessment Screening Tests Vestibular Artery Screen Negative Sharp-Selena Test Negative Visual Testing Smooth Pursuits Horizontal WNL Smooth Pursuits Vertical WNL Saccades Horizontal WNL Saccades Vertical WNL Heave Test Positive Right Thrust Head Positive Right Positional Testing Samantha-Hallpike Negative Left,Negative Right Rolling Test Negative Left,Negative Right Comments Vestibular Comments Pt reports vertigo/dizziness in all positions, worse with left-side dependent, but zero signs of nystagmus. Pt also has poor cervical extension and rotation, limiting proper positioning PT-OP-Q Treatments Start: 07/11/22 14:19 Freq: Status: Active Protocol: Document 05/18/23 13:41 DCW (Rec: 05/18/23 14:15 DCW [id number]) Manual Therapy Treatment Soft Tissue Mobilization Lumbar Paraspinals Body Location QL, Paraspinals, parascapulars Mobilization Type Sustained Pressure,Trigger Point Release Intensity/Depth Moderate Body Position Prone Cervical Paraspinals Body Location UT, Paraspinals, Scalenes, Levator Mobilization Type Sustained Pressure,Trigger Point Release Intensity/Depth Moderate Body Position Supine Joint Mobilizations Lumbar Joint L1-5 Direction P->A Grade III Body Position Prone PT-OP-T Assessment and Plan Start: 07/11/22 14:19 Freq: Status: Active Protocol: Document 05/18/23 13:41 DCW (Rec: 05/18/23 14:15 DCW [id number]) Physical Therapy Assessment Impairments Impairments Balance,Functional Activities, Functional Mobility,Gait, Integument,Pain,Posture,ROM, Soft Tissue Mobility,Strength, Tone,Vestibular Goals Three Impairment Pt experiences dizziness with positional changes Nursing Home Goal (LTG) Pt to report no episodes of dizziness while lying in bed for one full week to improve sleep pattern LTG Duration Met Two Impairment Left cervical rotation limited to 26? Lead Mechanical Engineer Goal (LTG) Pt to increase left cervical rotation by at least 19? to 45 ? in order to improve ability to turn head to look for traffic while driving. LTG Duration 03/06/23 - Improving One Impairment Pt does not have an appropriate home exercise program Short Term Goal (STG) Pt to be independent and compliant with an appropriate HEP STG Duration 02/03/23 Assessment Summary Assessment Arrived late today. Tolerated treatment well. Pt prepping for multiple upcoming surgeries, including pulmonary surgery to hopefully re- innervate his right lung. Physical Therapy Plan Frequency and Duration Frequency of Treatment 2x/Week Plan of Care Start Date 03/08/23 Plan of Care End Date 06/06/23 Therapeutic Interventions Therapeutic Interventions Aquatic Therapy,Balance Training,Gait Training,Home Exercise Program,Joint Mobilizations,Manual Therapy, Neuromuscular Re-education, Patient/Caregiver Education, Self-Care/Home Management,Soft Tissue Mobilization, Therapeutic Activities, Therapeutic Exercises, Vestibular Rehabilitation Modalities Cold Pack/Ice Massage,Electric Stimulation,Hot Packs, Ultrasound Next Visit Focus/Plan Next Note Type Treatment Note Next Visit Plan Cervical and lumbar STM/ stretching, core strengthening
--- NOTE | 2023-05-23 16:25 | PT.OTN ---
Current Diagnoses Benign paroxysmal vertigo, unspecified ear (05/23/23) Stiffness of other specified joint, not elsewhere classified (05/23/23) Spinal stenosis, lumbar region with neurogenic claudication (05/23/23) Intervertebral disc disorders with myelopathy, thoracic region (05/23/23) Other intervertebral disc displacement, lumbar region (05/23/23) Other intervertebral disc degeneration, lumbar region (05/23/23) Cervicalgia (05/23/23) Physical Therapy Treatment Note PT-OP-A Visit Information Start: 07/11/22 14:19 Freq: Status: Active Protocol: Document 05/23/23 15:45 DCW (Rec: 05/23/23 16:25 DCW [id number]) Out-Patient Physical Therapy Visit Information Visit Information Visit Type Treatment Note Visit Start Time 15:45 Visit Stop Time 16:30 Total Visit Minutes 45 Visit Number 51 Number of WORK ORDER SORTING CLERK Visits 0 Evaluation Information Evaluation Date 07/11/22 PT-OP-B Current Condition Start: 07/11/22 14:19 Freq: Status: Active Protocol: Document 07/11/22 11:15 DCW (Rec: 07/11/22 17:44 DCW [id number]) Current Condition History of Current Condition Onset Date Long-standing history Current Complaints Dizziness, cervical pain, thoracic pain, lumbar pain History of Current Condition Pt is a 57 year old male very well known to this clinic presenting with a multitude of complaints and ailments. Pt was recently seen at this facility following ankle surgery ~1 year ago, after which he had a sudden onset of new autoimmune disease, which left him hospitalized for one month, greatly setting back his recovery for his ankle. Due to poor gait, repeatedly twisting his ankle, and multiple falls, pt began to have significant pain in his mid- and low-back, as well as his right hip. Additionally, pt has been complaining of ongoing dizziness for the past six months, typically with various head turns, lasting multiple minutes to half an hour. Pt has had multiple surgeries in the past, including, but not limited to, ankle surgery, cervical fusion (s/p ~10 years), and thoracic outlet syndrome surgery. Treatment Goals Patient/Caregiver Goals Improve mobility by decreasing back pain PT-OP-C Subjective Start: 07/11/22 14:19 Freq: Status: Active Protocol: Document 05/23/23 15:45 DCW (Rec: 05/23/23 16:25 DCW [id number]) OP-PT Subjective Patient Comments Patient Comments Notes his anterior shoulder is feeling better this week. Low back is still giving him problems. PT-OP-F Manual Assessment Start: 07/11/22 14:19 Freq: Status: Active Protocol: Document 03/08/23 12:52 DCW (Rec: 03/08/23 12:59 DCW [id number]) Manual Assessments Soft Tissue Assessment Soft Tissue Mobility Assessment Moderate tone with tenderness to palpation 2/4: Pain with wincing along bilateral cervical and lumbar paraspinals, upper trap, levator scap, SCM, and QL. Tenderness to palpation 1/4: Complaint of pain along thoracic paraspinals PT-OP-K Range of Motion Start: 07/11/22 14:19 Freq: Status: Active Protocol: Document 03/08/23 12:52 DCW (Rec: 03/08/23 12:59 DCW [id number]) Cervical Spine Range of Motion Cervical Spine Active Degrees Testing Position Sitting Flexion 45 Extension 35 Rotation Left 39 Rotation Right 52 Lateral Flexion Left 33 Lateral Flexion Right 21 ROM Limitations Soft Tissue Tightness, Contracture,Bony Restriction, Muscle Tone,Pain Lumbar Spine Range of Motion Lumbar Spine Active Degrees Testing Position Standing Flexion 45 Extension 14 ROM Limitations Soft Tissue Tightness, Contracture,Bony Restriction, Muscle Tone,Pain PT-OP-L Special Tests Start: 07/11/22 14:19 Freq: Status: Active Protocol: Document 03/08/23 12:52 DCW (Rec: 03/08/23 12:59 DCW [id number]) Special Tests Cervical Spine Special Tests Slump Test Results Negative Traction Test Results Mild pain relief Spurling's Test Test Results Negative Passive Neck Flexion Test Results Negative Foraminal Compression Test Results Negative Alar Ligament Test Results Negative PT-OP-O Vestibular Start: 07/11/22 14:19 Freq: Status: Active Protocol: Document 07/11/22 11:15 DCW (Rec: 07/11/22 14:23 DCW [id number]) Vestibular Assessment Screening Tests Vestibular Artery Screen Negative Sharp-Selena Test Negative Visual Testing Smooth Pursuits Horizontal WNL Smooth Pursuits Vertical WNL Saccades Horizontal WNL Saccades Vertical WNL Heave Test Positive Right Thrust Head Positive Right Positional Testing [place]-Hallpike Negative Left,Negative Right Rolling Test Negative Left,Negative Right Comments Vestibular Comments Pt reports vertigo/dizziness in all positions, worse with left-side dependent, but zero signs of nystagmus. Pt also has poor cervical extension and rotation, limiting proper positioning PT-OP-Q Treatments Start: 07/11/22 14:19 Freq: Status: Active Protocol: Document 05/23/23 15:45 DCW (Rec: 05/23/23 16:25 DCW [id number]) Manual Therapy Treatment Soft Tissue Mobilization Lumbar Paraspinals Body Location QL, Paraspinals, parascapulars Mobilization Type Sustained Pressure,Trigger Point Release Intensity/Depth Moderate Body Position Prone Joint Mobilizations Lumbar Joint L1-5 Direction P->A Grade III Body Position Prone PT-OP-T Assessment and Plan Start: 07/11/22 14:19 Freq: Status: Active Protocol: Document 05/23/23 15:45 DCW (Rec: 05/23/23 16:25 DCW [id number]) Physical Therapy Assessment Impairments Impairments Balance,Functional Activities, Functional Mobility,Gait, Integument,Pain,Posture,ROM, Soft Tissue Mobility,Strength, Tone,Vestibular Goals Three Impairment Pt experiences dizziness with positional changes Assistant Center Director Goal (LTG) Pt to report no episodes of dizziness while lying in bed for one full week to improve sleep pattern LTG Duration Met Two Impairment Left cervical rotation limited to 26? [facility] Goal (LTG) Pt to increase left cervical rotation by at least 19? to 45 ? in order to improve ability to turn head to look for traffic while driving. LTG Duration 03/06/23 - Improving One Impairment Pt does not have an appropriate home exercise program Short Term Goal (STG) Pt to be independent and compliant with an appropriate HEP STG Duration 02/03/23 Assessment Summary Assessment Focused on low back today due to increased complaints of tightness and pain. Responded well to STM. Physical Therapy Plan Frequency and Duration Frequency of Treatment 2x/Week Plan of Care Start Date 03/08/23 Plan of Care End Date 06/06/23 Therapeutic Interventions Therapeutic Interventions Aquatic Therapy,Balance Training,Gait Training,Home Exercise Program,Joint Mobilizations,Manual Therapy, Neuromuscular Re-education, Patient/Caregiver Education, Self-Care/Home Management,Soft Tissue Mobilization, Therapeutic Activities, Therapeutic Exercises, Vestibular Rehabilitation Modalities Cold Pack/Ice Massage,Electric Stimulation,Hot Packs, Ultrasound Next Visit Focus/Plan Next Note Type Treatment Note Next Visit Plan Cervical and lumbar STM/ stretching, core strengthening
--- NOTE | 2023-05-24 12:44 | PT.OTN ---
Current Diagnoses Benign paroxysmal vertigo, unspecified ear (05/24/23) Stiffness of other specified joint, not elsewhere classified (05/24/23) Spinal stenosis, lumbar region with neurogenic claudication (05/24/23) Intervertebral disc disorders with myelopathy, thoracic region (05/24/23) Other intervertebral disc displacement, lumbar region (05/24/23) Other intervertebral disc degeneration, lumbar region (05/24/23) Cervicalgia (05/24/23) Physical Therapy Treatment Note PT-OP-A Visit Information Start: 07/11/22 14:19 Freq: Status: Active Protocol: Document 05/24/23 12:02 DCW (Rec: 05/24/23 12:44 DCW [id number]) Out-Patient Physical Therapy Visit Information Visit Information Visit Type Treatment Note Visit Start Time 12:02 Visit Stop Time 12:45 Total Visit Minutes 43 Visit Number 52 Number of SPINNING DOFFER Visits 0 Evaluation Information Evaluation Date 07/11/22 PT-OP-B Current Condition Start: 07/11/22 14:19 Freq: Status: Active Protocol: Document 07/11/22 11:15 DCW (Rec: 07/11/22 17:44 DCW [id number]) Current Condition History of Current Condition Onset Date Long-standing history Current Complaints Dizziness, cervical pain, thoracic pain, lumbar pain History of Current Condition Pt is a 57 year old male very well known to this clinic presenting with a multitude of complaints and ailments. Pt was recently seen at this facility following ankle surgery ~1 year ago, after which he had a sudden onset of new autoimmune disease, which left him hospitalized for one month, greatly setting back his recovery for his ankle. Due to poor gait, repeatedly twisting his ankle, and multiple falls, pt began to have significant pain in his mid- and low-back, as well as his right hip. Additionally, pt has been complaining of ongoing dizziness for the past six months, typically with various head turns, lasting multiple minutes to half an hour. Pt has had multiple surgeries in the past, including, but not limited to, ankle surgery, cervical fusion (s/p ~10 years), and thoracic outlet syndrome surgery. Treatment Goals Patient/Caregiver Goals Improve mobility by decreasing back pain PT-OP-C Subjective Start: 07/11/22 14:19 Freq: Status: Active Protocol: Document 05/24/23 12:02 DCW (Rec: 05/24/23 12:44 DCW [id number]) OP-PT Subjective Patient Comments Patient Comments Pt still feeling pretty good from visit yesterday. PT-OP-F Manual Assessment Start: 07/11/22 14:19 Freq: Status: Active Protocol: Document 03/08/23 12:52 DCW (Rec: 03/08/23 12:59 DCW [id number]) Manual Assessments Soft Tissue Assessment Soft Tissue Mobility Assessment Moderate tone with tenderness to palpation 2/4: Pain with wincing along bilateral cervical and lumbar paraspinals, upper trap, levator scap, SCM, and QL. Tenderness to palpation 1/4: Complaint of pain along thoracic paraspinals PT-OP-K Range of Motion Start: 07/11/22 14:19 Freq: Status: Active Protocol: Document 03/08/23 12:52 DCW (Rec: 03/08/23 12:59 DCW [id number]) Cervical Spine Range of Motion Cervical Spine Active Degrees Testing Position Sitting Flexion 45 Extension 35 Rotation Left 39 Rotation Right 52 Lateral Flexion Left 33 Lateral Flexion Right 21 ROM Limitations Soft Tissue Tightness, Contracture,Bony Restriction, Muscle Tone,Pain Lumbar Spine Range of Motion Lumbar Spine Active Degrees Testing Position Standing Flexion 45 Extension 14 ROM Limitations Soft Tissue Tightness, Contracture,Bony Restriction, Muscle Tone,Pain PT-OP-L Special Tests Start: 07/11/22 14:19 Freq: Status: Active Protocol: Document 03/08/23 12:52 DCW (Rec: 03/08/23 12:59 DCW [id number]) Special Tests Cervical Spine Special Tests Slump Test Results Negative Traction Test Results Mild pain relief Spurling's Test Test Results Negative Passive Neck Flexion Test Results Negative Foraminal Compression Test Results Negative Alar Ligament Test Results Negative PT-OP-O Vestibular Start: 07/11/22 14:19 Freq: Status: Active Protocol: Document 07/11/22 11:15 DCW (Rec: 07/11/22 14:23 DCW [id number]) Vestibular Assessment Screening Tests Vestibular Artery Screen Negative Sharp-Selena Test Negative Visual Testing Smooth Pursuits Horizontal WNL Smooth Pursuits Vertical WNL Saccades Horizontal WNL Saccades Vertical WNL Heave Test Positive Right Thrust Head Positive Right Positional Testing [place]-Hallpike Negative Left,Negative Right Rolling Test Negative Left,Negative Right Comments Vestibular Comments Pt reports vertigo/dizziness in all positions, worse with left-side dependent, but zero signs of nystagmus. Pt also has poor cervical extension and rotation, limiting proper positioning PT-OP-Q Treatments Start: 07/11/22 14:19 Freq: Status: Active Protocol: Document 05/24/23 12:02 DCW (Rec: 05/24/23 12:44 DCW [id number]) Manual Therapy Treatment Soft Tissue Mobilization Lumbar Paraspinals Body Location QL, Paraspinals, parascapulars Mobilization Type Sustained Pressure,Trigger Point Release Intensity/Depth Moderate Body Position Prone Cervical Paraspinals Body Location UT, Paraspinals, Scalenes, Levator Mobilization Type Sustained Pressure,Trigger Point Release Intensity/Depth Moderate Body Position Supine Joint Mobilizations Lumbar Joint L1-5 Direction P->A Grade III Body Position Prone PT-OP-T Assessment and Plan Start: 07/11/22 14:19 Freq: Status: Active Protocol: Document 05/24/23 12:02 DCW (Rec: 05/24/23 12:44 DCW [id number]) Physical Therapy Assessment Impairments Impairments Balance,Functional Activities, Functional Mobility,Gait, Integument,Pain,Posture,ROM, Soft Tissue Mobility,Strength, Tone,Vestibular Goals Three Impairment Pt experiences dizziness with positional changes Rattling Machine Tender Goal (LTG) Pt to report no episodes of dizziness while lying in bed for one full week to improve sleep pattern LTG Duration Met Two Impairment Left cervical rotation limited to 26? Intermediate Goal (LTG) Pt to increase left cervical rotation by at least 19? to 45 ? in order to improve ability to turn head to look for traffic while driving. LTG Duration 03/06/23 - Improving One Impairment Pt does not have an appropriate home exercise program Short Term Goal (STG) Pt to be independent and compliant with an appropriate HEP STG Duration 02/03/23 Assessment Summary Assessment Pt tolerated treatment well today, significantly less overall tone with less time between PT sessions. Physical Therapy Plan Frequency and Duration Frequency of Treatment 2x/Week Plan of Care Start Date 03/08/23 Plan of Care End Date 06/06/23 Therapeutic Interventions Therapeutic Interventions Aquatic Therapy,Balance Training,Gait Training,Home Exercise Program,Joint Mobilizations,Manual Therapy, Neuromuscular Re-education, Patient/Caregiver Education, Self-Care/Home Management,Soft Tissue Mobilization, Therapeutic Activities, Therapeutic Exercises, Vestibular Rehabilitation Modalities Cold Pack/Ice Massage,Electric Stimulation,Hot Packs, Ultrasound Next Visit Focus/Plan Next Note Type Treatment Note Next Visit Plan Cervical and lumbar STM/ stretching, core strengthening
--- NOTE | 2023-05-28 13:29 | PT.OTN ---
Current Diagnoses Benign paroxysmal vertigo, unspecified ear (05/28/23) Stiffness of other specified joint, not elsewhere classified (05/28/23) Spinal stenosis, lumbar region with neurogenic claudication (05/28/23) Intervertebral disc disorders with myelopathy, thoracic region (05/28/23) Other intervertebral disc displacement, lumbar region (05/28/23) Other intervertebral disc degeneration, lumbar region (05/28/23) Cervicalgia (05/28/23) Physical Therapy Treatment Note PT-OP-A Visit Information Start: 07/11/22 14:19 Freq: Status: Active Protocol: Document 05/28/23 12:45 DCW (Rec: 05/28/23 13:29 DCW [id number]) Out-Patient Physical Therapy Visit Information Visit Information Visit Type Treatment Note Visit Start Time 12:45 Visit Stop Time 13:30 Total Visit Minutes 45 Visit Number 53 Number of OFFICE ASST Visits 0 Evaluation Information Evaluation Date 07/11/22 PT-OP-B Current Condition Start: 07/11/22 14:19 Freq: Status: Active Protocol: Document 07/11/22 11:15 DCW (Rec: 07/11/22 17:44 DCW [id number]) Current Condition History of Current Condition Onset Date Long-standing history Current Complaints Dizziness, cervical pain, thoracic pain, lumbar pain History of Current Condition Pt is a 57 year old male very well known to this clinic presenting with a multitude of complaints and ailments. Pt was recently seen at this facility following ankle surgery ~1 year ago, after which he had a sudden onset of new autoimmune disease, which left him hospitalized for one month, greatly setting back his recovery for his ankle. Due to poor gait, repeatedly twisting his ankle, and multiple falls, pt began to have significant pain in his mid- and low-back, as well as his right hip. Additionally, pt has been complaining of ongoing dizziness for the past six months, typically with various head turns, lasting multiple minutes to half an hour. Pt has had multiple surgeries in the past, including, but not limited to, ankle surgery, cervical fusion (s/p ~10 years), and thoracic outlet syndrome surgery. Treatment Goals Patient/Caregiver Goals Improve mobility by decreasing back pain PT-OP-C Subjective Start: 07/11/22 14:19 Freq: Status: Active Protocol: Document 05/28/23 12:45 DCW (Rec: 05/28/23 13:29 DCW [id number]) OP-PT Subjective Patient Comments Patient Comments Pt feeling a little more sore today. PT-OP-F Manual Assessment Start: 07/11/22 14:19 Freq: Status: Active Protocol: Document 03/08/23 12:52 DCW (Rec: 03/08/23 12:59 DCW [id number]) Manual Assessments Soft Tissue Assessment Soft Tissue Mobility Assessment Moderate tone with tenderness to palpation 2/4: Pain with wincing along bilateral cervical and lumbar paraspinals, upper trap, levator scap, SCM, and QL. Tenderness to palpation 1/4: Complaint of pain along thoracic paraspinals PT-OP-K Range of Motion Start: 07/11/22 14:19 Freq: Status: Active Protocol: Document 03/08/23 12:52 DCW (Rec: 03/08/23 12:59 DCW [id number]) Cervical Spine Range of Motion Cervical Spine Active Degrees Testing Position Sitting Flexion 45 Extension 35 Rotation Left 39 Rotation Right 52 Lateral Flexion Left 33 Lateral Flexion Right 21 ROM Limitations Soft Tissue Tightness, Contracture,Bony Restriction, Muscle Tone,Pain Lumbar Spine Range of Motion Lumbar Spine Active Degrees Testing Position Standing Flexion 45 Extension 14 ROM Limitations Soft Tissue Tightness, Contracture,Bony Restriction, Muscle Tone,Pain PT-OP-L Special Tests Start: 07/11/22 14:19 Freq: Status: Active Protocol: Document 03/08/23 12:52 DCW (Rec: 03/08/23 12:59 DCW [id number]) Special Tests Cervical Spine Special Tests Slump Test Results Negative Traction Test Results Mild pain relief Spurling's Test Test Results Negative Passive Neck Flexion Test Results Negative Foraminal Compression Test Results Negative Alar Ligament Test Results Negative PT-OP-O Vestibular Start: 07/11/22 14:19 Freq: Status: Active Protocol: Document 07/11/22 11:15 DCW (Rec: 07/11/22 14:23 DCW [id number]) Vestibular Assessment Screening Tests Vestibular Artery Screen Negative Sharp-Selena Test Negative Visual Testing Smooth Pursuits Horizontal WNL Smooth Pursuits Vertical WNL Saccades Horizontal WNL Saccades Vertical WNL Heave Test Positive Right Thrust Head Positive Right Positional Testing [place]-Hallpike Negative Left,Negative Right Rolling Test Negative Left,Negative Right Comments Vestibular Comments Pt reports vertigo/dizziness in all positions, worse with left-side dependent, but zero signs of nystagmus. Pt also has poor cervical extension and rotation, limiting proper positioning PT-OP-Q Treatments Start: 07/11/22 14:19 Freq: Status: Active Protocol: Document 05/28/23 12:45 DCW (Rec: 05/28/23 13:29 DCW [id number]) Manual Therapy Treatment Soft Tissue Mobilization Lumbar Paraspinals Body Location QL, Paraspinals, parascapulars Mobilization Type Sustained Pressure,Trigger Point Release Intensity/Depth Moderate Body Position Prone Joint Mobilizations Lumbar Joint L1-5 Direction P->A Grade III Body Position Prone PT-OP-T Assessment and Plan Start: 07/11/22 14:19 Freq: Status: Active Protocol: Document 05/28/23 12:45 DCW (Rec: 05/28/23 13:29 DCW [id number]) Physical Therapy Assessment Impairments Impairments Balance,Functional Activities, Functional Mobility,Gait, Integument,Pain,Posture,ROM, Soft Tissue Mobility,Strength, Tone,Vestibular Goals Three Impairment Pt experiences dizziness with positional changes [facility] Goal (LTG) Pt to report no episodes of dizziness while lying in bed for one full week to improve sleep pattern LTG Duration Met Two Impairment Left cervical rotation limited to 26? Transportation Department Supervisor Goal (LTG) Pt to increase left cervical rotation by at least 19? to 45 ? in order to improve ability to turn head to look for traffic while driving. LTG Duration 03/06/23 - Improving One Impairment Pt does not have an appropriate home exercise program Short Term Goal (STG) Pt to be independent and compliant with an appropriate HEP STG Duration 02/03/23 Assessment Summary Assessment Noticeable improvement following manual treatment today, ambulating out of the facility with improved gait and posture Physical Therapy Plan Frequency and Duration Frequency of Treatment 2x/Week Plan of Care Start Date 03/08/23 Plan of Care End Date 06/06/23 Therapeutic Interventions Therapeutic Interventions Aquatic Therapy,Balance Training,Gait Training,Home Exercise Program,Joint Mobilizations,Manual Therapy, Neuromuscular Re-education, Patient/Caregiver Education, Self-Care/Home Management,Soft Tissue Mobilization, Therapeutic Activities, Therapeutic Exercises, Vestibular Rehabilitation Modalities Cold Pack/Ice Massage,Electric Stimulation,Hot Packs, Ultrasound Next Visit Focus/Plan Next Note Type Treatment Note Next Visit Plan Cervical and lumbar STM/ stretching, core strengthening
--- NOTE | 2023-06-05 13:04 | PT.OTN ---
Current Diagnoses Benign paroxysmal vertigo, unspecified ear (06/05/23) Stiffness of other specified joint, not elsewhere classified (06/05/23) Spinal stenosis, lumbar region with neurogenic claudication (06/05/23) Intervertebral disc disorders with myelopathy, thoracic region (06/05/23) Other intervertebral disc displacement, lumbar region (06/05/23) Other intervertebral disc degeneration, lumbar region (06/05/23) Cervicalgia (06/05/23) Physical Therapy Treatment Note PT-OP-A Visit Information Start: 07/11/22 14:19 Freq: Status: Active Protocol: Document 06/05/23 09:30 DCW (Rec: 06/05/23 10:11 DCW [id number]) Out-Patient Physical Therapy Visit Information Visit Information Visit Type Progress Note Visit Start Time 09:30 Visit Stop Time 10:15 Total Visit Minutes 45 Visit Number 54 Number of DISABILITY INSURANCE CLAIM EXAMINER Visits 0 Evaluation Information Evaluation Date 07/11/22 PT-OP-B Current Condition Start: 07/11/22 14:19 Freq: Status: Active Protocol: Document 07/11/22 11:15 DCW (Rec: 07/11/22 17:44 DCW [id number]) Current Condition History of Current Condition Onset Date Long-standing history Current Complaints Dizziness, cervical pain, thoracic pain, lumbar pain History of Current Condition Pt is a 57 year old male very well known to this clinic presenting with a multitude of complaints and ailments. Pt was recently seen at this facility following ankle surgery ~1 year ago, after which he had a sudden onset of new autoimmune disease, which left him hospitalized for one month, greatly setting back his recovery for his ankle. Due to poor gait, repeatedly twisting his ankle, and multiple falls, pt began to have significant pain in his mid- and low-back, as well as his right hip. Additionally, pt has been complaining of ongoing dizziness for the past six months, typically with various head turns, lasting multiple minutes to half an hour. Pt has had multiple surgeries in the past, including, but not limited to, ankle surgery, cervical fusion (s/p ~10 years), and thoracic outlet syndrome surgery. Treatment Goals Patient/Caregiver Goals Improve mobility by decreasing back pain PT-OP-C Subjective Start: 07/11/22 14:19 Freq: Status: Active Protocol: Document 06/05/23 09:30 DCW (Rec: 06/05/23 10:11 DCW [id number]) OP-PT Subjective Patient Comments Patient Comments Pt reports he is in desperate need of PT today. Notes his ankle popped yesterday, severely swollen today. PT-OP-F Manual Assessment Start: 07/11/22 14:19 Freq: Status: Active Protocol: Document 06/05/23 09:30 DCW (Rec: 06/05/23 13:01 DCW [id number]) Manual Assessments Soft Tissue Assessment Soft Tissue Mobility Assessment Severe tone with tenderness to palpation 3/4: Wincing and withdraw along lumbar paraspinals and QL. Moderate tone with tenderness to palpation 2/4: Pain with wincing along bilateral cervical paraspinals, upper trap, levator scap, and SCM. PT-OP-K Range of Motion Start: 07/11/22 14:19 Freq: Status: Active Protocol: Document 06/05/23 09:30 DCW (Rec: 06/05/23 13:01 DCW [id number]) Cervical Spine Range of Motion Cervical Spine Active Degrees Testing Position Sitting Flexion 45 Extension 35 Rotation Left 40 Rotation Right 52 Lateral Flexion Left 34 Lateral Flexion Right 22 ROM Limitations Soft Tissue Tightness, Contracture,Bony Restriction, Muscle Tone,Pain Lumbar Spine Range of Motion Lumbar Spine Active Degrees Testing Position Standing Flexion 48 Extension 16 ROM Limitations Soft Tissue Tightness, Contracture,Bony Restriction, Muscle Tone,Pain PT-OP-L Special Tests Start: 07/11/22 14:19 Freq: Status: Active Protocol: Document 06/05/23 09:30 DCW (Rec: 06/05/23 13:01 DCW [id number]) Special Tests Cervical Spine Special Tests Slump Test Results Negative Traction Test Results Mild pain relief Spurling's Test Test Results Negative Passive Neck Flexion Test Results Negative Foraminal Compression Test Results Negative Alar Ligament Test Results Negative PT-OP-O Vestibular Start: 07/11/22 14:19 Freq: Status: Active Protocol: Document 07/11/22 11:15 DCW (Rec: 07/11/22 14:23 DCW [id number]) Vestibular Assessment Screening Tests Vestibular Artery Screen Negative Sharp-Selena Test Negative Visual Testing Smooth Pursuits Horizontal WNL Smooth Pursuits Vertical WNL Saccades Horizontal WNL Saccades Vertical WNL Heave Test Positive Right Thrust Head Positive Right Positional Testing [place]-Hallpike Negative Left,Negative Right Rolling Test Negative Left,Negative Right Comments Vestibular Comments Pt reports vertigo/dizziness in all positions, worse with left-side dependent, but zero signs of nystagmus. Pt also has poor cervical extension and rotation, limiting proper positioning PT-OP-Q Treatments Start: 07/11/22 14:19 Freq: Status: Active Protocol: Document 06/05/23 09:30 DCW (Rec: 06/05/23 10:11 DCW [id number]) Manual Therapy Treatment Soft Tissue Mobilization Lumbar Paraspinals Body Location QL, Paraspinals, parascapulars Mobilization Type Sustained Pressure,Trigger Point Release Intensity/Depth Moderate Body Position Prone Joint Mobilizations Lumbar Joint L1-5 Direction P->A Grade III Body Position Prone PT-OP-T Assessment and Plan Start: 07/11/22 14:19 Freq: Status: Active Protocol: Document 06/05/23 09:30 DCW (Rec: 06/05/23 10:11 DCW [id number]) Physical Therapy Assessment Impairments Impairments Balance,Functional Activities, Functional Mobility,Gait, Integument,Pain,Posture,ROM, Soft Tissue Mobility,Strength, Tone,Vestibular Goals Three Impairment Pt experiences dizziness with positional changes Watershed Program Manager Goal (LTG) Pt to report no episodes of dizziness while lying in bed for one full week to improve sleep pattern LTG Duration Met Two Impairment Left cervical rotation limited to 26? Watershed Program Manager Goal (LTG) Pt to increase left cervical rotation by at least 19? to 45 ? in order to improve ability to turn head to look for traffic while driving. LTG Duration 09/03/23 - Improving One Impairment Pt does not have an appropriate home exercise program Short Term Goal (STG) Pt to be independent and compliant with an appropriate HEP STG Duration 07/07/23 Assessment Summary Assessment Much worse tone today, especially left-sided lumbar tone. May be due to recent ankle injury changing gait pattern, worsening antalgia. Pt advised to go to urgent care to get ankle assessed. Minimal overall changes to pt function and ROM, likely partially due to ongoing lumbar spine issues, which pt is still hoping to undergo surgical intervention to help alleviate, and also likely impacted by recent re-injury of his ankle, which has currently impacted his overall gait. Physical Therapy Plan Frequency and Duration Frequency of Treatment 2x/Week Plan of Care Start Date 06/05/23 Plan of Care End Date 09/03/23 Therapeutic Interventions Therapeutic Interventions Aquatic Therapy,Balance Training,Gait Training,Home Exercise Program,Joint Mobilizations,Manual Therapy, Neuromuscular Re-education, Patient/Caregiver Education, Self-Care/Home Management,Soft Tissue Mobilization, Therapeutic Activities, Therapeutic Exercises, Vestibular Rehabilitation Modalities Cold Pack/Ice Massage,Electric Stimulation,Hot Packs, Ultrasound Next Visit Focus/Plan Next Note Type Treatment Note Next Visit Plan Cervical and lumbar STM/ stretching, core strengthening
--- NOTE | 2023-06-05 13:04 | PT.OPPOC ---
Physical, Occupational & Speech Therapy At [facility] Current Diagnoses Benign paroxysmal vertigo, unspecified ear (06/05/23) Stiffness of other specified joint, not elsewhere classified (06/05/23) Spinal stenosis, lumbar region with neurogenic claudication (06/05/23) Intervertebral disc disorders with myelopathy, thoracic region (06/05/23) Other intervertebral disc displacement, lumbar region (06/05/23) Other intervertebral disc degeneration, lumbar region (06/05/23) Cervicalgia (06/05/23) Visit Care Team Role Provider Type Jhon Taylor MD Attending Provider Physician Family Provider Primary Care Provider Referring Provider Specialty: Internal Medicine Address: [address] [place] [address], [employer] Email: [email or web address] Plan Of Care PT-OP-T Assessment and Plan Start: 07/11/22 14:19 Freq: Status: Active Protocol: Document 06/05/23 09:30 DCW (Rec: 06/05/23 10:11 DCW [id number]) Physical Therapy Assessment Impairments Impairments Balance,Functional Activities, Functional Mobility,Gait, Integument,Pain,Posture,ROM, Soft Tissue Mobility,Strength, Tone,Vestibular Goals Three Impairment Pt experiences dizziness with positional changes Jail Goal (LTG) Pt to report no episodes of dizziness while lying in bed for one full week to improve sleep pattern LTG Duration Met Two Impairment Left cervical rotation limited to 26? Pegger Goal (LTG) Pt to increase left cervical rotation by at least 19? to 45 ? in order to improve ability to turn head to look for traffic while driving. LTG Duration 09/03/23 - Improving One Impairment Pt does not have an appropriate home exercise program Short Term Goal (STG) Pt to be independent and compliant with an appropriate HEP STG Duration 07/07/23 Assessment Summary Assessment Much worse tone today, especially left-sided lumbar tone. May be due to recent ankle injury changing gait pattern, worsening antalgia. Pt advised to go to urgent care to get ankle assessed. Minimal overall changes to pt function and ROM, likely partially due to ongoing lumbar spine issues, which pt is still hoping to undergo surgical intervention to help alleviate, and also likely impacted by recent re-injury of his ankle, which has currently impacted his overall gait. Physical Therapy Plan Frequency and Duration Frequency of Treatment 2x/Week Plan of Care Start Date 06/05/23 Plan of Care End Date 09/03/23 Therapeutic Interventions Therapeutic Interventions Aquatic Therapy,Balance Training,Gait Training,Home Exercise Program,Joint Mobilizations,Manual Therapy, Neuromuscular Re-education, Patient/Caregiver Education, Self-Care/Home Management,Soft Tissue Mobilization, Therapeutic Activities, Therapeutic Exercises, Vestibular Rehabilitation Modalities Cold Pack/Ice Massage,Electric Stimulation,Hot Packs, Ultrasound Next Visit Focus/Plan Next Note Type Treatment Note Next Visit Plan Cervical and lumbar STM/ stretching, core strengthening Plan of Care Dates Plan of Care Start Date 06/05/23 Plan of Care End Date 09/03/23 Electronically Signed by: Tong Card, PT 06/05/23 0096 If you are in agreement with this Plan of Care, please return a signed and dated copy. I have reviewed this Plan of Care and certify that the skilled therapy services above are required to meet the patient?s needs. Physician Signature Date Printed Name and Credentials Clinical Instructor Signature Printed Name and Credentials
--- NOTE | 2023-06-07 13:25 | PT.OTN ---
Current Diagnoses Benign paroxysmal vertigo, unspecified ear (06/07/23) Stiffness of other specified joint, not elsewhere classified (06/07/23) Spinal stenosis, lumbar region with neurogenic claudication (06/07/23) Intervertebral disc disorders with myelopathy, thoracic region (06/07/23) Other intervertebral disc displacement, lumbar region (06/07/23) Other intervertebral disc degeneration, lumbar region (06/07/23) Cervicalgia (06/07/23) Physical Therapy Treatment Note PT-OP-A Visit Information Start: 07/11/22 14:19 Freq: Status: Active Protocol: Document 06/07/23 12:45 DCW (Rec: 06/07/23 13:25 DCW [id number]) Out-Patient Physical Therapy Visit Information Visit Information Visit Type Treatment Note Visit Start Time 12:45 Visit Stop Time 13:30 Total Visit Minutes 45 Visit Number 55 Number of TIMBER REPAIRER Visits 0 Evaluation Information Evaluation Date 07/11/22 PT-OP-B Current Condition Start: 07/11/22 14:19 Freq: Status: Active Protocol: Document 07/11/22 11:15 DCW (Rec: 07/11/22 17:44 DCW [id number]) Current Condition History of Current Condition Onset Date Long-standing history Current Complaints Dizziness, cervical pain, thoracic pain, lumbar pain History of Current Condition Pt is a 57 year old male very well known to this clinic presenting with a multitude of complaints and ailments. Pt was recently seen at this facility following ankle surgery ~1 year ago, after which he had a sudden onset of new autoimmune disease, which left him hospitalized for one month, greatly setting back his recovery for his ankle. Due to poor gait, repeatedly twisting his ankle, and multiple falls, pt began to have significant pain in his mid- and low-back, as well as his right hip. Additionally, pt has been complaining of ongoing dizziness for the past six months, typically with various head turns, lasting multiple minutes to half an hour. Pt has had multiple surgeries in the past, including, but not limited to, ankle surgery, cervical fusion (s/p ~10 years), and thoracic outlet syndrome surgery. Treatment Goals Patient/Caregiver Goals Improve mobility by decreasing back pain PT-OP-C Subjective Start: 07/11/22 14:19 Freq: Status: Active Protocol: Document 06/07/23 12:45 DCW (Rec: 06/07/23 13:25 DCW [id number]) OP-PT Subjective Patient Comments Patient Comments I was doing really good until about 90 minutes ago. PT-OP-F Manual Assessment Start: 07/11/22 14:19 Freq: Status: Active Protocol: Document 06/05/23 09:30 DCW (Rec: 06/05/23 13:01 DCW [id number]) Manual Assessments Soft Tissue Assessment Soft Tissue Mobility Assessment Severe tone with tenderness to palpation 3/4: Wincing and withdraw along lumbar paraspinals and QL. Moderate tone with tenderness to palpation 2/4: Pain with wincing along bilateral cervical paraspinals, upper trap, levator scap, and SCM. PT-OP-K Range of Motion Start: 07/11/22 14:19 Freq: Status: Active Protocol: Document 06/05/23 09:30 DCW (Rec: 06/05/23 13:01 DCW [id number]) Cervical Spine Range of Motion Cervical Spine Active Degrees Testing Position Sitting Flexion 45 Extension 35 Rotation Left 40 Rotation Right 52 Lateral Flexion Left 34 Lateral Flexion Right 22 ROM Limitations Soft Tissue Tightness, Contracture,Bony Restriction, Muscle Tone,Pain Lumbar Spine Range of Motion Lumbar Spine Active Degrees Testing Position Standing Flexion 48 Extension 16 ROM Limitations Soft Tissue Tightness, Contracture,Bony Restriction, Muscle Tone,Pain PT-OP-L Special Tests Start: 07/11/22 14:19 Freq: Status: Active Protocol: Document 06/05/23 09:30 DCW (Rec: 06/05/23 13:01 DCW [id number]) Special Tests Cervical Spine Special Tests Slump Test Results Negative Traction Test Results Mild pain relief Spurling's Test Test Results Negative Passive Neck Flexion Test Results Negative Foraminal Compression Test Results Negative Alar Ligament Test Results Negative PT-OP-O Vestibular Start: 07/11/22 14:19 Freq: Status: Active Protocol: Document 07/11/22 11:15 DCW (Rec: 07/11/22 14:23 DCW [id number]) Vestibular Assessment Screening Tests Vestibular Artery Screen Negative Sharp-Selena Test Negative Visual Testing Smooth Pursuits Horizontal WNL Smooth Pursuits Vertical WNL Saccades Horizontal WNL Saccades Vertical WNL Heave Test Positive Right Thrust Head Positive Right Positional Testing Victoria-Hallpike Negative Left,Negative Right Rolling Test Negative Left,Negative Right Comments Vestibular Comments Pt reports vertigo/dizziness in all positions, worse with left-side dependent, but zero signs of nystagmus. Pt also has poor cervical extension and rotation, limiting proper positioning PT-OP-Q Treatments Start: 07/11/22 14:19 Freq: Status: Active Protocol: Document 06/07/23 12:45 DCW (Rec: 06/07/23 13:25 DCW [id number]) Manual Therapy Treatment Soft Tissue Mobilization Lumbar Paraspinals Body Location QL, Paraspinals, parascapulars Mobilization Type Sustained Pressure,Trigger Point Release Intensity/Depth Moderate Body Position Prone Joint Mobilizations Lumbar Joint L1-5 Direction P->A Grade III Body Position Prone PT-OP-T Assessment and Plan Start: 07/11/22 14:19 Freq: Status: Active Protocol: Document 06/07/23 12:45 DCW (Rec: 06/07/23 13:25 DCW [id number]) Physical Therapy Assessment Impairments Impairments Balance,Functional Activities, Functional Mobility,Gait, Integument,Pain,Posture,ROM, Soft Tissue Mobility,Strength, Tone,Vestibular Goals Three Impairment Pt experiences dizziness with positional changes Fdc Goal (LTG) Pt to report no episodes of dizziness while lying in bed for one full week to improve sleep pattern LTG Duration Met Two Impairment Left cervical rotation limited to 26? Fdc Goal (LTG) Pt to increase left cervical rotation by at least 19? to 45 ? in order to improve ability to turn head to look for traffic while driving. LTG Duration 09/03/23 - Improving One Impairment Pt does not have an appropriate home exercise program Short Term Goal (STG) Pt to be independent and compliant with an appropriate HEP STG Duration 07/07/23 Assessment Summary Assessment Pt much luis today compared to last visit, better managed lumbar tone. Posture significantly improved during gait. Physical Therapy Plan Frequency and Duration Frequency of Treatment 2x/Week Plan of Care Start Date 06/05/23 Plan of Care End Date 09/03/23 Therapeutic Interventions Therapeutic Interventions Aquatic Therapy,Balance Training,Gait Training,Home Exercise Program,Joint Mobilizations,Manual Therapy, Neuromuscular Re-education, Patient/Caregiver Education, Self-Care/Home Management,Soft Tissue Mobilization, Therapeutic Activities, Therapeutic Exercises, Vestibular Rehabilitation Modalities Cold Pack/Ice Massage,Electric Stimulation,Hot Packs, Ultrasound Next Visit Focus/Plan Next Note Type Treatment Note Next Visit Plan Cervical and lumbar STM/ stretching, core strengthening
--- NOTE | 2023-06-20 14:28 | PT.OTN ---
Current Diagnoses Benign paroxysmal vertigo, unspecified ear (06/20/23) Stiffness of other specified joint, not elsewhere classified (06/20/23) Spinal stenosis, lumbar region with neurogenic claudication (06/20/23) Intervertebral disc disorders with myelopathy, thoracic region (06/20/23) Other intervertebral disc displacement, lumbar region (06/20/23) Other intervertebral disc degeneration, lumbar region (06/20/23) Cervicalgia (06/20/23) Physical Therapy Treatment Note PT-OP-A Visit Information Start: 07/11/22 14:19 Freq: Status: Active Protocol: Document 06/20/23 13:45 DCW (Rec: 06/20/23 14:28 DCW [id number]) Out-Patient Physical Therapy Visit Information Visit Information Visit Type Treatment Note Visit Start Time 13:45 Visit Stop Time 14:30 Total Visit Minutes 45 Visit Number 56 Number of AUDITING MANAGER Visits 0 Evaluation Information Evaluation Date 07/11/22 PT-OP-B Current Condition Start: 07/11/22 14:19 Freq: Status: Active Protocol: Document 07/11/22 11:15 DCW (Rec: 07/11/22 17:44 DCW [id number]) Current Condition History of Current Condition Onset Date Long-standing history Current Complaints Dizziness, cervical pain, thoracic pain, lumbar pain History of Current Condition Pt is a 57 year old male very well known to this clinic presenting with a multitude of complaints and ailments. Pt was recently seen at this facility following ankle surgery ~1 year ago, after which he had a sudden onset of new autoimmune disease, which left him hospitalized for one month, greatly setting back his recovery for his ankle. Due to poor gait, repeatedly twisting his ankle, and multiple falls, pt began to have significant pain in his mid- and low-back, as well as his right hip. Additionally, pt has been complaining of ongoing dizziness for the past six months, typically with various head turns, lasting multiple minutes to half an hour. Pt has had multiple surgeries in the past, including, but not limited to, ankle surgery, cervical fusion (s/p ~10 years), and thoracic outlet syndrome surgery. Treatment Goals Patient/Caregiver Goals Improve mobility by decreasing back pain PT-OP-C Subjective Start: 07/11/22 14:19 Freq: Status: Active Protocol: Document 06/20/23 13:45 DCW (Rec: 06/20/23 14:28 DCW [id number]) OP-PT Subjective Patient Comments Patient Comments I've really been missing this . PT-OP-F Manual Assessment Start: 07/11/22 14:19 Freq: Status: Active Protocol: Document 06/05/23 09:30 DCW (Rec: 06/05/23 13:01 DCW [id number]) Manual Assessments Soft Tissue Assessment Soft Tissue Mobility Assessment Severe tone with tenderness to palpation 3/4: Wincing and withdraw along lumbar paraspinals and QL. Moderate tone with tenderness to palpation 2/4: Pain with wincing along bilateral cervical paraspinals, upper trap, levator scap, and SCM. PT-OP-K Range of Motion Start: 07/11/22 14:19 Freq: Status: Active Protocol: Document 06/05/23 09:30 DCW (Rec: 06/05/23 13:01 DCW [id number]) Cervical Spine Range of Motion Cervical Spine Active Degrees Testing Position Sitting Flexion 45 Extension 35 Rotation Left 40 Rotation Right 52 Lateral Flexion Left 34 Lateral Flexion Right 22 ROM Limitations Soft Tissue Tightness, Contracture,Bony Restriction, Muscle Tone,Pain Lumbar Spine Range of Motion Lumbar Spine Active Degrees Testing Position Standing Flexion 48 Extension 16 ROM Limitations Soft Tissue Tightness, Contracture,Bony Restriction, Muscle Tone,Pain PT-OP-L Special Tests Start: 07/11/22 14:19 Freq: Status: Active Protocol: Document 06/05/23 09:30 DCW (Rec: 06/05/23 13:01 DCW [id number]) Special Tests Cervical Spine Special Tests Slump Test Results Negative Traction Test Results Mild pain relief Spurling's Test Test Results Negative Passive Neck Flexion Test Results Negative Foraminal Compression Test Results Negative Alar Ligament Test Results Negative PT-OP-O Vestibular Start: 07/11/22 14:19 Freq: Status: Active Protocol: Document 07/11/22 11:15 DCW (Rec: 07/11/22 14:23 DCW [id number]) Vestibular Assessment Screening Tests Vestibular Artery Screen Negative Sharp-Selena Test Negative Visual Testing Smooth Pursuits Horizontal WNL Smooth Pursuits Vertical WNL Saccades Horizontal WNL Saccades Vertical WNL Heave Test Positive Right Thrust Head Positive Right Positional Testing Samantha-Hallpike Negative Left,Negative Right Rolling Test Negative Left,Negative Right Comments Vestibular Comments Pt reports vertigo/dizziness in all positions, worse with left-side dependent, but zero signs of nystagmus. Pt also has poor cervical extension and rotation, limiting proper positioning PT-OP-Q Treatments Start: 07/11/22 14:19 Freq: Status: Active Protocol: Document 06/20/23 13:45 DCW (Rec: 06/20/23 14:28 DCW [id number]) Manual Therapy Treatment Soft Tissue Mobilization Lumbar Paraspinals Body Location QL, Paraspinals, parascapulars Mobilization Type Sustained Pressure,Trigger Point Release Intensity/Depth Moderate Body Position Prone Joint Mobilizations Lumbar Joint L1-5 Direction P->A Grade III Body Position Prone PT-OP-T Assessment and Plan Start: 07/11/22 14:19 Freq: Status: Active Protocol: Document 06/20/23 13:45 DCW (Rec: 06/20/23 14:28 DCW [id number]) Physical Therapy Assessment Impairments Impairments Balance,Functional Activities, Functional Mobility,Gait, Integument,Pain,Posture,ROM, Soft Tissue Mobility,Strength, Tone,Vestibular Goals Three Impairment Pt experiences dizziness with positional changes Correction Goal (LTG) Pt to report no episodes of dizziness while lying in bed for one full week to improve sleep pattern LTG Duration Met Two Impairment Left cervical rotation limited to 26? Correction Goal (LTG) Pt to increase left cervical rotation by at least 19? to 45 ? in order to improve ability to turn head to look for traffic while driving. LTG Duration 09/03/23 - Improving One Impairment Pt does not have an appropriate home exercise program Short Term Goal (STG) Pt to be independent and compliant with an appropriate HEP STG Duration 07/07/23 Assessment Summary Assessment Tolerated treatment well today , able to stand up with improved posture when leaving clinic today. Physical Therapy Plan Frequency and Duration Frequency of Treatment 2x/Week Plan of Care Start Date 06/05/23 Plan of Care End Date 09/03/23 Therapeutic Interventions Therapeutic Interventions Aquatic Therapy,Balance Training,Gait Training,Home Exercise Program,Joint Mobilizations,Manual Therapy, Neuromuscular Re-education, Patient/Caregiver Education, Self-Care/Home Management,Soft Tissue Mobilization, Therapeutic Activities, Therapeutic Exercises, Vestibular Rehabilitation Modalities Cold Pack/Ice Massage,Electric Stimulation,Hot Packs, Ultrasound Next Visit Focus/Plan Next Note Type Treatment Note Next Visit Plan Cervical and lumbar STM/ stretching, core strengthening
--- NOTE | 2023-06-26 11:12 | PT.OTN ---
Current Diagnoses Benign paroxysmal vertigo, unspecified ear (06/26/23) Stiffness of other specified joint, not elsewhere classified (06/26/23) Spinal stenosis, lumbar region with neurogenic claudication (06/26/23) Intervertebral disc disorders with myelopathy, thoracic region (06/26/23) Other intervertebral disc displacement, lumbar region (06/26/23) Other intervertebral disc degeneration, lumbar region (06/26/23) Cervicalgia (06/26/23) Physical Therapy Treatment Note PT-OP-A Visit Information Start: 07/11/22 14:19 Freq: Status: Active Protocol: Document 06/26/23 10:30 DCW (Rec: 06/26/23 11:12 DCW [id number]) Out-Patient Physical Therapy Visit Information Visit Information Visit Type Treatment Note Visit Start Time 10:30 Visit Stop Time 11:15 Total Visit Minutes 45 Visit Number 57 Number of SALES SOLUTIONS ASSOCIATE Visits 0 Evaluation Information Evaluation Date 07/11/22 PT-OP-B Current Condition Start: 07/11/22 14:19 Freq: Status: Active Protocol: Document 07/11/22 11:15 DCW (Rec: 07/11/22 17:44 DCW [id number]) Current Condition History of Current Condition Onset Date Long-standing history Current Complaints Dizziness, cervical pain, thoracic pain, lumbar pain History of Current Condition Pt is a 57 year old male very well known to this clinic presenting with a multitude of complaints and ailments. Pt was recently seen at this facility following ankle surgery ~1 year ago, after which he had a sudden onset of new autoimmune disease, which left him hospitalized for one month, greatly setting back his recovery for his ankle. Due to poor gait, repeatedly twisting his ankle, and multiple falls, pt began to have significant pain in his mid- and low-back, as well as his right hip. Additionally, pt has been complaining of ongoing dizziness for the past six months, typically with various head turns, lasting multiple minutes to half an hour. Pt has had multiple surgeries in the past, including, but not limited to, ankle surgery, cervical fusion (s/p ~10 years), and thoracic outlet syndrome surgery. Treatment Goals Patient/Caregiver Goals Improve mobility by decreasing back pain PT-OP-C Subjective Start: 07/11/22 14:19 Freq: Status: Active Protocol: Document 06/26/23 10:30 DCW (Rec: 06/26/23 11:12 DCW [id number]) OP-PT Subjective Patient Comments Patient Comments Pt feeling fine, having more difficulty walking today. PT-OP-F Manual Assessment Start: 07/11/22 14:19 Freq: Status: Active Protocol: Document 06/05/23 09:30 DCW (Rec: 06/05/23 13:01 DCW [id number]) Manual Assessments Soft Tissue Assessment Soft Tissue Mobility Assessment Severe tone with tenderness to palpation 3/4: Wincing and withdraw along lumbar paraspinals and QL. Moderate tone with tenderness to palpation 2/4: Pain with wincing along bilateral cervical paraspinals, upper trap, levator scap, and SCM. PT-OP-K Range of Motion Start: 07/11/22 14:19 Freq: Status: Active Protocol: Document 06/05/23 09:30 DCW (Rec: 06/05/23 13:01 DCW [id number]) Cervical Spine Range of Motion Cervical Spine Active Degrees Testing Position Sitting Flexion 45 Extension 35 Rotation Left 40 Rotation Right 52 Lateral Flexion Left 34 Lateral Flexion Right 22 ROM Limitations Soft Tissue Tightness, Contracture,Bony Restriction, Muscle Tone,Pain Lumbar Spine Range of Motion Lumbar Spine Active Degrees Testing Position Standing Flexion 48 Extension 16 ROM Limitations Soft Tissue Tightness, Contracture,Bony Restriction, Muscle Tone,Pain PT-OP-L Special Tests Start: 07/11/22 14:19 Freq: Status: Active Protocol: Document 06/05/23 09:30 DCW (Rec: 06/05/23 13:01 DCW [id number]) Special Tests Cervical Spine Special Tests Slump Test Results Negative Traction Test Results Mild pain relief Spurling's Test Test Results Negative Passive Neck Flexion Test Results Negative Foraminal Compression Test Results Negative Alar Ligament Test Results Negative PT-OP-O Vestibular Start: 07/11/22 14:19 Freq: Status: Active Protocol: Document 07/11/22 11:15 DCW (Rec: 07/11/22 14:23 DCW [id number]) Vestibular Assessment Screening Tests Vestibular Artery Screen Negative Sharp-Selena Test Negative Visual Testing Smooth Pursuits Horizontal WNL Smooth Pursuits Vertical WNL Saccades Horizontal WNL Saccades Vertical WNL Heave Test Positive Right Thrust Head Positive Right Positional Testing Samantha-Hallpike Negative Left,Negative Right Rolling Test Negative Left,Negative Right Comments Vestibular Comments Pt reports vertigo/dizziness in all positions, worse with left-side dependent, but zero signs of nystagmus. Pt also has poor cervical extension and rotation, limiting proper positioning PT-OP-Q Treatments Start: 07/11/22 14:19 Freq: Status: Active Protocol: Document 06/26/23 10:30 DCW (Rec: 06/26/23 11:12 DCW [id number]) Manual Therapy Treatment Soft Tissue Mobilization Lumbar Paraspinals Body Location QL, Paraspinals, parascapulars Mobilization Type Sustained Pressure,Trigger Point Release Intensity/Depth Moderate Body Position Prone Joint Mobilizations Lumbar Joint L1-5 Direction P->A Grade III Body Position Prone PT-OP-T Assessment and Plan Start: 07/11/22 14:19 Freq: Status: Active Protocol: Document 06/26/23 10:30 DCW (Rec: 06/26/23 11:12 DCW [id number]) Physical Therapy Assessment Impairments Impairments Balance,Functional Activities, Functional Mobility,Gait, Integument,Pain,Posture,ROM, Soft Tissue Mobility,Strength, Tone,Vestibular Goals Three Impairment Pt experiences dizziness with positional changes Mortgage Manager Goal (LTG) Pt to report no episodes of dizziness while lying in bed for one full week to improve sleep pattern LTG Duration Met Two Impairment Left cervical rotation limited to 26? Snf Goal (LTG) Pt to increase left cervical rotation by at least 19? to 45 ? in order to improve ability to turn head to look for traffic while driving. LTG Duration 09/03/23 - Improving One Impairment Pt does not have an appropriate home exercise program Short Term Goal (STG) Pt to be independent and compliant with an appropriate HEP STG Duration 07/07/23 Assessment Summary Assessment Pt demonstrating increased tone today after a stressful week, restricting mobility overall. Good response to treatment today. Physical Therapy Plan Frequency and Duration Frequency of Treatment 2x/Week Plan of Care Start Date 06/05/23 Plan of Care End Date 09/03/23 Therapeutic Interventions Therapeutic Interventions Aquatic Therapy,Balance Training,Gait Training,Home Exercise Program,Joint Mobilizations,Manual Therapy, Neuromuscular Re-education, Patient/Caregiver Education, Self-Care/Home Management,Soft Tissue Mobilization, Therapeutic Activities, Therapeutic Exercises, Vestibular Rehabilitation Modalities Cold Pack/Ice Massage,Electric Stimulation,Hot Packs, Ultrasound Next Visit Focus/Plan Next Note Type Treatment Note Next Visit Plan Cervical and lumbar STM/ stretching, core strengthening
--- NOTE | 2023-07-13 09:46 | PT.OTN ---
Current Diagnoses Benign paroxysmal vertigo, unspecified ear (07/13/23) Stiffness of other specified joint, not elsewhere classified (07/13/23) Spinal stenosis, lumbar region with neurogenic claudication (07/13/23) Intervertebral disc disorders with myelopathy, thoracic region (07/13/23) Other intervertebral disc displacement, lumbar region (07/13/23) Other intervertebral disc degeneration, lumbar region (07/13/23) Cervicalgia (07/13/23) Physical Therapy Treatment Note PT-OP-A Visit Information Start: 07/11/22 14:19 Freq: Status: Active Protocol: Document 07/13/23 09:02 DCW (Rec: 07/13/23 09:46 DCW [id number]) Out-Patient Physical Therapy Visit Information Visit Information Visit Type Treatment Note Visit Start Time 09:02 Visit Stop Time 09:45 Total Visit Minutes 43 Visit Number 58 Number of CUSTOMER ACCOUNT ADMINISTRATOR Visits 0 Evaluation Information Evaluation Date 07/11/22 PT-OP-B Current Condition Start: 07/11/22 14:19 Freq: Status: Active Protocol: Document 07/11/22 11:15 DCW (Rec: 07/11/22 17:44 DCW [id number]) Current Condition History of Current Condition Onset Date Long-standing history Current Complaints Dizziness, cervical pain, thoracic pain, lumbar pain History of Current Condition Pt is a 57 year old male very well known to this clinic presenting with a multitude of complaints and ailments. Pt was recently seen at this facility following ankle surgery ~1 year ago, after which he had a sudden onset of new autoimmune disease, which left him hospitalized for one month, greatly setting back his recovery for his ankle. Due to poor gait, repeatedly twisting his ankle, and multiple falls, pt began to have significant pain in his mid- and low-back, as well as his right hip. Additionally, pt has been complaining of ongoing dizziness for the past six months, typically with various head turns, lasting multiple minutes to half an hour. Pt has had multiple surgeries in the past, including, but not limited to, ankle surgery, cervical fusion (s/p ~10 years), and thoracic outlet syndrome surgery. Treatment Goals Patient/Caregiver Goals Improve mobility by decreasing back pain PT-OP-C Subjective Start: 07/11/22 14:19 Freq: Status: Active Protocol: Document 07/13/23 09:02 DCW (Rec: 07/13/23 09:46 DCW [id number]) OP-PT Subjective Patient Comments Patient Comments Pt reports he has pain in his shoulder and down left arm. Discussed potential signs of CT. Pt reports he has been checked out by cardio. PT-OP-F Manual Assessment Start: 07/11/22 14:19 Freq: Status: Active Protocol: Document 06/05/23 09:30 DCW (Rec: 06/05/23 13:01 DCW [id number]) Manual Assessments Soft Tissue Assessment Soft Tissue Mobility Assessment Severe tone with tenderness to palpation 3/4: Wincing and withdraw along lumbar paraspinals and QL. Moderate tone with tenderness to palpation 2/4: Pain with wincing along bilateral cervical paraspinals, upper trap, levator scap, and SCM. PT-OP-K Range of Motion Start: 07/11/22 14:19 Freq: Status: Active Protocol: Document 06/05/23 09:30 DCW (Rec: 06/05/23 13:01 DCW [id number]) Cervical Spine Range of Motion Cervical Spine Active Degrees Testing Position Sitting Flexion 45 Extension 35 Rotation Left 40 Rotation Right 52 Lateral Flexion Left 34 Lateral Flexion Right 22 ROM Limitations Soft Tissue Tightness, Contracture,Bony Restriction, Muscle Tone,Pain Lumbar Spine Range of Motion Lumbar Spine Active Degrees Testing Position Standing Flexion 48 Extension 16 ROM Limitations Soft Tissue Tightness, Contracture,Bony Restriction, Muscle Tone,Pain PT-OP-L Special Tests Start: 07/11/22 14:19 Freq: Status: Active Protocol: Document 06/05/23 09:30 DCW (Rec: 06/05/23 13:01 DCW [id number]) Special Tests Cervical Spine Special Tests Slump Test Results Negative Traction Test Results Mild pain relief Spurling's Test Test Results Negative Passive Neck Flexion Test Results Negative Foraminal Compression Test Results Negative Alar Ligament Test Results Negative PT-OP-O Vestibular Start: 07/11/22 14:19 Freq: Status: Active Protocol: Document 07/11/22 11:15 DCW (Rec: 07/11/22 14:23 DCW [id number]) Vestibular Assessment Screening Tests Vestibular Artery Screen Negative Sharp-Selena Test Negative Visual Testing Smooth Pursuits Horizontal WNL Smooth Pursuits Vertical WNL Saccades Horizontal WNL Saccades Vertical WNL Heave Test Positive Right Thrust Head Positive Right Positional Testing Samantha-Hallpike Negative Left,Negative Right Rolling Test Negative Left,Negative Right Comments Vestibular Comments Pt reports vertigo/dizziness in all positions, worse with left-side dependent, but zero signs of nystagmus. Pt also has poor cervical extension and rotation, limiting proper positioning PT-OP-Q Treatments Start: 07/11/22 14:19 Freq: Status: Active Protocol: Document 07/13/23 09:02 DC (Rec: 07/13/23 09:46 [facility] [id number]) Manual Therapy Treatment Soft Tissue Mobilization Lumbar Paraspinals Body Location QL, Paraspinals, parascapulars Mobilization Type Sustained Pressure,Trigger Point Release Intensity/Depth Moderate Body Position Prone Cervical Paraspinals Body Location UT, Paraspinals, Scalenes, Levator Mobilization Type Sustained Pressure,Trigger Point Release Intensity/Depth Moderate Body Position Supine Joint Mobilizations Lumbar Joint L1-5 Direction P->A Grade III Body Position Prone PT-OP-T Assessment and Plan Start: 07/11/22 14:19 Freq: Status: Active Protocol: Document 07/13/23 09:02 DC (Rec: 07/13/23 09:46 [facility] [id number]) Physical Therapy Assessment Impairments Impairments Balance,Functional Activities, Functional Mobility,Gait, Integument,Pain,Posture,ROM, Soft Tissue Mobility,Strength, Tone,Vestibular Goals Three Impairment Pt experiences dizziness with positional changes Intermediate Goal (LTG) Pt to report no episodes of dizziness while lying in bed for one full week to improve sleep pattern LTG Duration Met Two Impairment Left cervical rotation limited to 26? Intermediate Goal (LTG) Pt to increase left cervical rotation by at least 19? to 45 ? in order to improve ability to turn head to look for traffic while driving. LTG Duration 09/03/23 - Improving One Impairment Pt does not have an appropriate home exercise program Short Term Goal (STG) Pt to be independent and compliant with an appropriate HEP STG Duration 07/07/23 Assessment Summary Assessment Significant improvement in shoulder and arm pain, did continue to discuss other CT symptoms, and if pt noticed any new symptoms or change, to follow up with cardiology. Physical Therapy Plan Frequency and Duration Frequency of Treatment 2x/Week Plan of Care Start Date 06/05/23 Plan of Care End Date 09/03/23 Therapeutic Interventions Therapeutic Interventions Aquatic Therapy,Balance Training,Gait Training,Home Exercise Program,Joint Mobilizations,Manual Therapy, Neuromuscular Re-education, Patient/Caregiver Education, Self-Care/Home Management,Soft Tissue Mobilization, Therapeutic Activities, Therapeutic Exercises, Vestibular Rehabilitation Modalities Cold Pack/Ice Massage,Electric Stimulation,Hot Packs, Ultrasound Next Visit Focus/Plan Next Note Type Treatment Note Next Visit Plan Cervical and lumbar STM/ stretching, core strengthening
--- NOTE | 2023-07-18 14:29 | PT.OTN ---
Current Diagnoses Benign paroxysmal vertigo, unspecified ear (07/18/23) Stiffness of other specified joint, not elsewhere classified (07/18/23) Spinal stenosis, lumbar region with neurogenic claudication (07/18/23) Intervertebral disc disorders with myelopathy, thoracic region (07/18/23) Other intervertebral disc displacement, lumbar region (07/18/23) Other intervertebral disc degeneration, lumbar region (07/18/23) Cervicalgia (07/18/23) Physical Therapy Treatment Note PT-OP-A Visit Information Start: 07/11/22 14:19 Freq: Status: Active Protocol: Document 07/18/23 13:47 DCW (Rec: 07/18/23 14:29 DCW [id number]) Out-Patient Physical Therapy Visit Information Visit Information Visit Type Treatment Note Visit Start Time 13:47 Visit Stop Time 14:30 Total Visit Minutes 43 Visit Number 59 Number of SILHOUETTE ARTIST Visits 0 Evaluation Information Evaluation Date 07/11/22 PT-OP-B Current Condition Start: 07/11/22 14:19 Freq: Status: Active Protocol: Document 07/11/22 11:15 DCW (Rec: 07/11/22 17:44 DCW [id number]) Current Condition History of Current Condition Onset Date Long-standing history Current Complaints Dizziness, cervical pain, thoracic pain, lumbar pain History of Current Condition Pt is a 57 year old male very well known to this clinic presenting with a multitude of complaints and ailments. Pt was recently seen at this facility following ankle surgery ~1 year ago, after which he had a sudden onset of new autoimmune disease, which left him hospitalized for one month, greatly setting back his recovery for his ankle. Due to poor gait, repeatedly twisting his ankle, and multiple falls, pt began to have significant pain in his mid- and low-back, as well as his right hip. Additionally, pt has been complaining of ongoing dizziness for the past six months, typically with various head turns, lasting multiple minutes to half an hour. Pt has had multiple surgeries in the past, including, but not limited to, ankle surgery, cervical fusion (s/p ~10 years), and thoracic outlet syndrome surgery. Treatment Goals Patient/Caregiver Goals Improve mobility by decreasing back pain PT-OP-C Subjective Start: 07/11/22 14:19 Freq: Status: Active Protocol: Document 07/18/23 13:47 DCW (Rec: 07/18/23 14:29 DCW [id number]) OP-PT Subjective Patient Comments Patient Comments Pt reports his most recent ankle x-ray shows his ankle has gone from 15 to 30 degrees since surgery, and now they' re planning to pin the entire ankle. Does note, however, that he got new shoes with a wedge, and it has been helping a lot with his back pain. PT-OP-F Manual Assessment Start: 07/11/22 14:19 Freq: Status: Active Protocol: Document 06/05/23 09:30 DCW (Rec: 06/05/23 13:01 DCW [id number]) Manual Assessments Soft Tissue Assessment Soft Tissue Mobility Assessment Severe tone with tenderness to palpation 3/4: Wincing and withdraw along lumbar paraspinals and QL. Moderate tone with tenderness to palpation 2/4: Pain with wincing along bilateral cervical paraspinals, upper trap, levator scap, and SCM. PT-OP-K Range of Motion Start: 07/11/22 14:19 Freq: Status: Active Protocol: Document 06/05/23 09:30 DCW (Rec: 06/05/23 13:01 RIW [id number]) Cervical Spine Range of Motion Cervical Spine Active Degrees Testing Position Sitting Flexion 45 Extension 35 Rotation Left 40 Rotation Right 52 Lateral Flexion Left 34 Lateral Flexion Right 22 ROM Limitations Soft Tissue Tightness, Contracture,Bony Restriction, Muscle Tone,Pain Lumbar Spine Range of Motion Lumbar Spine Active Degrees Testing Position Standing Flexion 48 Extension 16 ROM Limitations Soft Tissue Tightness, Contracture,Bony Restriction, Muscle Tone,Pain PT-OP-L Special Tests Start: 07/11/22 14:19 Freq: Status: Active Protocol: Document 06/05/23 09:30 DCW (Rec: 06/05/23 13:01 DCW [id number]) Special Tests Cervical Spine Special Tests Slump Test Results Negative Traction Test Results Mild pain relief Spurling's Test Test Results Negative Passive Neck Flexion Test Results Negative Foraminal Compression Test Results Negative Alar Ligament Test Results Negative PT-OP-O Vestibular Start: 07/11/22 14:19 Freq: Status: Active Protocol: Document 07/11/22 11:15 DCW (Rec: 07/11/22 14:23 DCW [id number]) Vestibular Assessment Screening Tests Vestibular Artery Screen Negative Sharp-Selena Test Negative Visual Testing Smooth Pursuits Horizontal WNL Smooth Pursuits Vertical WNL Saccades Horizontal WNL Saccades Vertical WNL Heave Test Positive Right Thrust Head Positive Right Positional Testing [place]-Hallpike Negative Left,Negative Right Rolling Test Negative Left,Negative Right Comments Vestibular Comments Pt reports vertigo/dizziness in all positions, worse with left-side dependent, but zero signs of nystagmus. Pt also has poor cervical extension and rotation, limiting proper positioning PT-OP-Q Treatments Start: 07/11/22 14:19 Freq: Status: Active Protocol: Document 07/18/23 13:47 DCW (Rec: 07/18/23 14:29 DC [id number]) Manual Therapy Treatment Soft Tissue Mobilization Lumbar Paraspinals Body Location QL, Paraspinals, parascapulars Mobilization Type Sustained Pressure,Trigger Point Release Intensity/Depth Moderate Body Position Prone Cervical Paraspinals Body Location UT, Paraspinals, Scalenes, Levator Mobilization Type Sustained Pressure,Trigger Point Release Intensity/Depth Moderate Body Position Supine Joint Mobilizations Lumbar Joint L1-5 Direction P->A Grade III Body Position Prone PT-OP-T Assessment and Plan Start: 07/11/22 14:19 Freq: Status: Active Protocol: Document 07/18/23 13:47 DCW (Rec: 07/18/23 14:29 DC [id number]) Physical Therapy Assessment Impairments Impairments Balance,Functional Activities, Functional Mobility,Gait, Integument,Pain,Posture,ROM, Soft Tissue Mobility,Strength, Tone,Vestibular Goals Three Impairment Pt experiences dizziness with positional changes Usp Goal (LTG) Pt to report no episodes of dizziness while lying in bed for one full week to improve sleep pattern LTG Duration Met Two Impairment Left cervical rotation limited to 26? Cylinder Machine Operator Pulp Drier Goal (LTG) Pt to increase left cervical rotation by at least 19? to 45 ? in order to improve ability to turn head to look for traffic while driving. LTG Duration 09/03/23 - Improving One Impairment Pt does not have an appropriate home exercise program Short Term Goal (STG) Pt to be independent and compliant with an appropriate HEP STG Duration 07/07/23 Assessment Summary Assessment Pt low back much improved after change in footwear, improved ambulation and much more upright posture. Continues to have pain with shoulder, especially during sleep. Physical Therapy Plan Frequency and Duration Frequency of Treatment 2x/Week Plan of Care Start Date 06/05/23 Plan of Care End Date 09/03/23 Therapeutic Interventions Therapeutic Interventions Aquatic Therapy,Balance Training,Gait Training,Home Exercise Program,Joint Mobilizations,Manual Therapy, Neuromuscular Re-education, Patient/Caregiver Education, Self-Care/Home Management,Soft Tissue Mobilization, Therapeutic Activities, Therapeutic Exercises, Vestibular Rehabilitation Modalities Cold Pack/Ice Massage,Electric Stimulation,Hot Packs, Ultrasound Next Visit Focus/Plan Next Note Type Treatment Note Next Visit Plan Cervical and lumbar STM/ stretching, core strengthening
--- NOTE | 2023-07-24 14:32 | PT.OTN ---
Current Diagnoses Benign paroxysmal vertigo, unspecified ear (07/24/23) Stiffness of other specified joint, not elsewhere classified (07/24/23) Spinal stenosis, lumbar region with neurogenic claudication (07/24/23) Intervertebral disc disorders with myelopathy, thoracic region (07/24/23) Other intervertebral disc displacement, lumbar region (07/24/23) Other intervertebral disc degeneration, lumbar region (07/24/23) Cervicalgia (07/24/23) Physical Therapy Treatment Note PT-OP-A Visit Information Start: 07/11/22 14:19 Freq: Status: Active Protocol: Document 07/24/23 13:45 DCW (Rec: 07/24/23 14:32 DCW [id number]) Out-Patient Physical Therapy Visit Information Visit Information Visit Type Treatment Note Visit Start Time 13:45 Visit Stop Time 14:30 Total Visit Minutes 45 Visit Number 60 Number of LIFTER DRIVER Visits 0 Evaluation Information Evaluation Date 07/11/22 PT-OP-B Current Condition Start: 07/11/22 14:19 Freq: Status: Active Protocol: Document 07/11/22 11:15 DCW (Rec: 07/11/22 17:44 DCW [id number]) Current Condition History of Current Condition Onset Date Long-standing history Current Complaints Dizziness, cervical pain, thoracic pain, lumbar pain History of Current Condition Pt is a 57 year old male very well known to this clinic presenting with a multitude of complaints and ailments. Pt was recently seen at this facility following ankle surgery ~1 year ago, after which he had a sudden onset of new autoimmune disease, which left him hospitalized for one month, greatly setting back his recovery for his ankle. Due to poor gait, repeatedly twisting his ankle, and multiple falls, pt began to have significant pain in his mid- and low-back, as well as his right hip. Additionally, pt has been complaining of ongoing dizziness for the past six months, typically with various head turns, lasting multiple minutes to half an hour. Pt has had multiple surgeries in the past, including, but not limited to, ankle surgery, cervical fusion (s/p ~10 years), and thoracic outlet syndrome surgery. Treatment Goals Patient/Caregiver Goals Improve mobility by decreasing back pain PT-OP-C Subjective Start: 07/11/22 14:19 Freq: Status: Active Protocol: Document 07/24/23 13:45 DCW (Rec: 07/24/23 14:32 DCW [id number]) OP-PT Subjective Patient Comments Patient Comments Pt notes his back is doing fairly well, is standing up straighter, but his neck is now bothering him more. PT-OP-F Manual Assessment Start: 07/11/22 14:19 Freq: Status: Active Protocol: Document 06/05/23 09:30 DCW (Rec: 06/05/23 13:01 DCW [id number]) Manual Assessments Soft Tissue Assessment Soft Tissue Mobility Assessment Severe tone with tenderness to palpation 3/4: Wincing and withdraw along lumbar paraspinals and QL. Moderate tone with tenderness to palpation 2/4: Pain with wincing along bilateral cervical paraspinals, upper trap, levator scap, and SCM. PT-OP-K Range of Motion Start: 07/11/22 14:19 Freq: Status: Active Protocol: Document 06/05/23 09:30 DCW (Rec: 06/05/23 13:01 DCW [id number]) Cervical Spine Range of Motion Cervical Spine Active Degrees Testing Position Sitting Flexion 45 Extension 35 Rotation Left 40 Rotation Right 52 Lateral Flexion Left 34 Lateral Flexion Right 22 ROM Limitations Soft Tissue Tightness, Contracture,Bony Restriction, Muscle Tone,Pain Lumbar Spine Range of Motion Lumbar Spine Active Degrees Testing Position Standing Flexion 48 Extension 16 ROM Limitations Soft Tissue Tightness, Contracture,Bony Restriction, Muscle Tone,Pain PT-OP-L Special Tests Start: 07/11/22 14:19 Freq: Status: Active Protocol: Document 06/05/23 09:30 DCW (Rec: 06/05/23 13:01 DCW [id number]) Special Tests Cervical Spine Special Tests Slump Test Results Negative Traction Test Results Mild pain relief Spurling's Test Test Results Negative Passive Neck Flexion Test Results Negative Foraminal Compression Test Results Negative Alar Ligament Test Results Negative PT-OP-O Vestibular Start: 07/11/22 14:19 Freq: Status: Active Protocol: Document 07/11/22 11:15 DCW (Rec: 07/11/22 14:23 DCW [id number]) Vestibular Assessment Screening Tests Vestibular Artery Screen Negative Sharp-Selena Test Negative Visual Testing Smooth Pursuits Horizontal WNL Smooth Pursuits Vertical WNL Saccades Horizontal WNL Saccades Vertical WNL Heave Test Positive Right Thrust Head Positive Right Positional Testing Samantha-Hallpike Negative Left,Negative Right Rolling Test Negative Left,Negative Right Comments Vestibular Comments Pt reports vertigo/dizziness in all positions, worse with left-side dependent, but zero signs of nystagmus. Pt also has poor cervical extension and rotation, limiting proper positioning PT-OP-Q Treatments Start: 07/11/22 14:19 Freq: Status: Active Protocol: Document 07/24/23 13:45 DCW (Rec: 07/24/23 14:32 DCW [id number]) Manual Therapy Treatment Soft Tissue Mobilization Lumbar Paraspinals Body Location QL, Paraspinals, parascapulars Mobilization Type Sustained Pressure,Trigger Point Release Intensity/Depth Moderate Body Position Prone Cervical Paraspinals Body Location UT, Paraspinals, Scalenes, Levator Mobilization Type Sustained Pressure,Trigger Point Release Intensity/Depth Moderate Body Position Supine Joint Mobilizations Lumbar Joint L1-5 Direction P->A Grade III Body Position Prone PT-OP-T Assessment and Plan Start: 07/11/22 14:19 Freq: Status: Active Protocol: Document 07/24/23 13:45 DCW (Rec: 07/24/23 14:32 DCW [id number]) Physical Therapy Assessment Impairments Impairments Balance,Functional Activities, Functional Mobility,Gait, Integument,Pain,Posture,ROM, Soft Tissue Mobility,Strength, Tone,Vestibular Goals Three Impairment Pt experiences dizziness with positional changes Trauma Counsellor Goal (LTG) Pt to report no episodes of dizziness while lying in bed for one full week to improve sleep pattern LTG Duration Met Two Impairment Left cervical rotation limited to 26? Snf Goal (LTG) Pt to increase left cervical rotation by at least 19? to 45 ? in order to improve ability to turn head to look for traffic while driving. LTG Duration 09/03/23 - Improving One Impairment Pt does not have an appropriate home exercise program Short Term Goal (STG) Pt to be independent and compliant with an appropriate HEP STG Duration 07/07/23 Assessment Summary Assessment Pt showing good response to manual treatment, still waiting for word on potential spinal surgery. Ambulation has improved with addition of wedge into shoe. Physical Therapy Plan Frequency and Duration Frequency of Treatment 2x/Week Plan of Care Start Date 06/05/23 Plan of Care End Date 09/03/23 Therapeutic Interventions Therapeutic Interventions Aquatic Therapy,Balance Training,Gait Training,Home Exercise Program,Joint Mobilizations,Manual Therapy, Neuromuscular Re-education, Patient/Caregiver Education, Self-Care/Home Management,Soft Tissue Mobilization, Therapeutic Activities, Therapeutic Exercises, Vestibular Rehabilitation Modalities Cold Pack/Ice Massage,Electric Stimulation,Hot Packs, Ultrasound Next Visit Focus/Plan Next Note Type Treatment Note Next Visit Plan Cervical and lumbar STM/ stretching, core strengthening
--- NOTE | 2023-07-27 15:15 | PT.OTN ---
Current Diagnoses Benign paroxysmal vertigo, unspecified ear (07/27/23) Stiffness of other specified joint, not elsewhere classified (07/27/23) Spinal stenosis, lumbar region with neurogenic claudication (07/27/23) Intervertebral disc disorders with myelopathy, thoracic region (07/27/23) Other intervertebral disc displacement, lumbar region (07/27/23) Other intervertebral disc degeneration, lumbar region (07/27/23) Cervicalgia (07/27/23) Physical Therapy Treatment Note PT-OP-A Visit Information Start: 07/11/22 14:19 Freq: Status: Active Protocol: Document 07/27/23 14:30 DCW (Rec: 07/27/23 15:15 DCW [id number]) Out-Patient Physical Therapy Visit Information Visit Information Visit Type Treatment Note Visit Start Time 14:30 Visit Stop Time 15:15 Total Visit Minutes 45 Visit Number 61 Number of DIRECTOR CAREER Visits 0 Evaluation Information Evaluation Date 07/11/22 PT-OP-B Current Condition Start: 07/11/22 14:19 Freq: Status: Active Protocol: Document 07/11/22 11:15 DCW (Rec: 07/11/22 17:44 DCW [id number]) Current Condition History of Current Condition Onset Date Long-standing history Current Complaints Dizziness, cervical pain, thoracic pain, lumbar pain History of Current Condition Pt is a 57 year old male very well known to this clinic presenting with a multitude of complaints and ailments. Pt was recently seen at this facility following ankle surgery ~1 year ago, after which he had a sudden onset of new autoimmune disease, which left him hospitalized for one month, greatly setting back his recovery for his ankle. Due to poor gait, repeatedly twisting his ankle, and multiple falls, pt began to have significant pain in his mid- and low-back, as well as his right hip. Additionally, pt has been complaining of ongoing dizziness for the past six months, typically with various head turns, lasting multiple minutes to half an hour. Pt has had multiple surgeries in the past, including, but not limited to, ankle surgery, cervical fusion (s/p ~10 years), and thoracic outlet syndrome surgery. Treatment Goals Patient/Caregiver Goals Improve mobility by decreasing back pain PT-OP-C Subjective Start: 07/11/22 14:19 Freq: Status: Active Protocol: Document 07/27/23 14:30 DCW (Rec: 07/27/23 15:15 DCW [id number]) OP-PT Subjective Patient Comments Patient Comments Neck's a little tight, back's a little tight. PT-OP-F Manual Assessment Start: 07/11/22 14:19 Freq: Status: Active Protocol: Document 06/05/23 09:30 DCW (Rec: 06/05/23 13:01 DCW [id number]) Manual Assessments Soft Tissue Assessment Soft Tissue Mobility Assessment Severe tone with tenderness to palpation 3/4: Wincing and withdraw along lumbar paraspinals and QL. Moderate tone with tenderness to palpation 2/4: Pain with wincing along bilateral cervical paraspinals, upper trap, levator scap, and SCM. PT-OP-K Range of Motion Start: 07/11/22 14:19 Freq: Status: Active Protocol: Document 06/05/23 09:30 DCW (Rec: 06/05/23 13:01 DCW [id number]) Cervical Spine Range of Motion Cervical Spine Active Degrees Testing Position Sitting Flexion 45 Extension 35 Rotation Left 40 Rotation Right 52 Lateral Flexion Left 34 Lateral Flexion Right 22 ROM Limitations Soft Tissue Tightness, Contracture,Bony Restriction, Muscle Tone,Pain Lumbar Spine Range of Motion Lumbar Spine Active Degrees Testing Position Standing Flexion 48 Extension 16 ROM Limitations Soft Tissue Tightness, Contracture,Bony Restriction, Muscle Tone,Pain PT-OP-L Special Tests Start: 07/11/22 14:19 Freq: Status: Active Protocol: Document 06/05/23 09:30 DCW (Rec: 06/05/23 13:01 DCW [id number]) Special Tests Cervical Spine Special Tests Slump Test Results Negative Traction Test Results Mild pain relief Spurling's Test Test Results Negative Passive Neck Flexion Test Results Negative Foraminal Compression Test Results Negative Alar Ligament Test Results Negative PT-OP-O Vestibular Start: 07/11/22 14:19 Freq: Status: Active Protocol: Document 07/11/22 11:15 DCW (Rec: 07/11/22 14:23 DCW [id number]) Vestibular Assessment Screening Tests Vestibular Artery Screen Negative Sharp-Selena Test Negative Visual Testing Smooth Pursuits Horizontal WNL Smooth Pursuits Vertical WNL Saccades Horizontal WNL Saccades Vertical WNL Heave Test Positive Right Thrust Head Positive Right Positional Testing Lane-Hallpike Negative Left,Negative Right Rolling Test Negative Left,Negative Right Comments Vestibular Comments Pt reports vertigo/dizziness in all positions, worse with left-side dependent, but zero signs of nystagmus. Pt also has poor cervical extension and rotation, limiting proper positioning PT-OP-Q Treatments Start: 07/11/22 14:19 Freq: Status: Active Protocol: Document 07/27/23 14:30 DCW (Rec: 07/27/23 15:15 DCW [id number]) Manual Therapy Treatment Soft Tissue Mobilization Lumbar Paraspinals Body Location QL, Paraspinals, parascapulars Mobilization Type Sustained Pressure,Trigger Point Release Intensity/Depth Moderate Body Position Prone Cervical Paraspinals Body Location UT, Paraspinals, Scalenes, Levator Mobilization Type Sustained Pressure,Trigger Point Release Intensity/Depth Moderate Body Position Supine Joint Mobilizations Lumbar Joint L1-5 Direction P->A Grade III Body Position Prone PT-OP-T Assessment and Plan Start: 07/11/22 14:19 Freq: Status: Active Protocol: Document 07/27/23 14:30 DCW (Rec: 07/27/23 15:15 DCW [id number]) Physical Therapy Assessment Impairments Impairments Balance,Functional Activities, Functional Mobility,Gait, Integument,Pain,Posture,ROM, Soft Tissue Mobility,Strength, Tone,Vestibular Goals Three Impairment Pt experiences dizziness with positional changes Snf Goal (LTG) Pt to report no episodes of dizziness while lying in bed for one full week to improve sleep pattern LTG Duration Met Two Impairment Left cervical rotation limited to 26? Milk Driver Goal (LTG) Pt to increase left cervical rotation by at least 19? to 45 ? in order to improve ability to turn head to look for traffic while driving. LTG Duration 09/03/23 - Improving One Impairment Pt does not have an appropriate home exercise program Short Term Goal (STG) Pt to be independent and compliant with an appropriate HEP STG Duration 07/07/23 Assessment Summary Assessment Once again pt received new shoes, resulting in improved posture and ambulation ability . Lumbar paraspinals showing significant improvement in tone. Physical Therapy Plan Frequency and Duration Frequency of Treatment 2x/Week Plan of Care Start Date 06/05/23 Plan of Care End Date 09/03/23 Therapeutic Interventions Therapeutic Interventions Aquatic Therapy,Balance Training,Gait Training,Home Exercise Program,Joint Mobilizations,Manual Therapy, Neuromuscular Re-education, Patient/Caregiver Education, Self-Care/Home Management,Soft Tissue Mobilization, Therapeutic Activities, Therapeutic Exercises, Vestibular Rehabilitation Modalities Cold Pack/Ice Massage,Electric Stimulation,Hot Packs, Ultrasound Next Visit Focus/Plan Next Note Type Treatment Note Next Visit Plan Cervical and lumbar STM/ stretching, core strengthening
--- NOTE | 2023-07-31 10:29 | PT.OTN ---
Current Diagnoses Benign paroxysmal vertigo, unspecified ear (07/31/23) Stiffness of other specified joint, not elsewhere classified (07/31/23) Spinal stenosis, lumbar region with neurogenic claudication (07/31/23) Intervertebral disc disorders with myelopathy, thoracic region (07/31/23) Other intervertebral disc displacement, lumbar region (07/31/23) Other intervertebral disc degeneration, lumbar region (07/31/23) Cervicalgia (07/31/23) Physical Therapy Treatment Note PT-OP-A Visit Information Start: 07/11/22 14:19 Freq: Status: Active Protocol: Document 07/31/23 09:45 DCW (Rec: 07/31/23 10:28 DCW [id number]) Out-Patient Physical Therapy Visit Information Visit Information Visit Type Treatment Note Visit Start Time 09:45 Visit Stop Time 10:30 Total Visit Minutes 45 Visit Number 62 Number of MASH PROCESSING OPERATOR Visits 0 Evaluation Information Evaluation Date 07/11/22 PT-OP-B Current Condition Start: 07/11/22 14:19 Freq: Status: Active Protocol: Document 07/11/22 11:15 DCW (Rec: 07/11/22 17:44 DCW [id number]) Current Condition History of Current Condition Onset Date Long-standing history Current Complaints Dizziness, cervical pain, thoracic pain, lumbar pain History of Current Condition Pt is a 57 year old male very well known to this clinic presenting with a multitude of complaints and ailments. Pt was recently seen at this facility following ankle surgery ~1 year ago, after which he had a sudden onset of new autoimmune disease, which left him hospitalized for one month, greatly setting back his recovery for his ankle. Due to poor gait, repeatedly twisting his ankle, and multiple falls, pt began to have significant pain in his mid- and low-back, as well as his right hip. Additionally, pt has been complaining of ongoing dizziness for the past six months, typically with various head turns, lasting multiple minutes to half an hour. Pt has had multiple surgeries in the past, including, but not limited to, ankle surgery, cervical fusion (s/p ~10 years), and thoracic outlet syndrome surgery. Treatment Goals Patient/Caregiver Goals Improve mobility by decreasing back pain PT-OP-C Subjective Start: 07/11/22 14:19 Freq: Status: Active Protocol: Document 07/31/23 09:45 DCW (Rec: 07/31/23 10:28 DCW [id number]) OP-PT Subjective Patient Comments Patient Comments Pt feeling pretty good today, neck sore following an incidental headbutt from his large dog. PT-OP-F Manual Assessment Start: 07/11/22 14:19 Freq: Status: Active Protocol: Document 06/05/23 09:30 DCW (Rec: 06/05/23 13:01 DCW [id number]) Manual Assessments Soft Tissue Assessment Soft Tissue Mobility Assessment Severe tone with tenderness to palpation 3/4: Wincing and withdraw along lumbar paraspinals and QL. Moderate tone with tenderness to palpation 2/4: Pain with wincing along bilateral cervical paraspinals, upper trap, levator scap, and SCM. PT-OP-K Range of Motion Start: 07/11/22 14:19 Freq: Status: Active Protocol: Document 06/05/23 09:30 DCW (Rec: 06/05/23 13:01 DCW [id number]) Cervical Spine Range of Motion Cervical Spine Active Degrees Testing Position Sitting Flexion 45 Extension 35 Rotation Left 40 Rotation Right 52 Lateral Flexion Left 34 Lateral Flexion Right 22 ROM Limitations Soft Tissue Tightness, Contracture,Bony Restriction, Muscle Tone,Pain Lumbar Spine Range of Motion Lumbar Spine Active Degrees Testing Position Standing Flexion 48 Extension 16 ROM Limitations Soft Tissue Tightness, Contracture,Bony Restriction, Muscle Tone,Pain PT-OP-L Special Tests Start: 07/11/22 14:19 Freq: Status: Active Protocol: Document 06/05/23 09:30 DCW (Rec: 06/05/23 13:01 DCW [id number]) Special Tests Cervical Spine Special Tests Slump Test Results Negative Traction Test Results Mild pain relief Spurling's Test Test Results Negative Passive Neck Flexion Test Results Negative Foraminal Compression Test Results Negative Alar Ligament Test Results Negative PT-OP-O Vestibular Start: 07/11/22 14:19 Freq: Status: Active Protocol: Document 07/11/22 11:15 DCW (Rec: 07/11/22 14:23 DCW [id number]) Vestibular Assessment Screening Tests Vestibular Artery Screen Negative Sharp-Selena Test Negative Visual Testing Smooth Pursuits Horizontal WNL Smooth Pursuits Vertical WNL Saccades Horizontal WNL Saccades Vertical WNL Heave Test Positive Right Thrust Head Positive Right Positional Testing Samantha-Hallpike Negative Left,Negative Right Rolling Test Negative Left,Negative Right Comments Vestibular Comments Pt reports vertigo/dizziness in all positions, worse with left-side dependent, but zero signs of nystagmus. Pt also has poor cervical extension and rotation, limiting proper positioning PT-OP-Q Treatments Start: 07/11/22 14:19 Freq: Status: Active Protocol: Document 07/31/23 09:45 DCW (Rec: 07/31/23 10:28 DCW [id number]) Manual Therapy Treatment Soft Tissue Mobilization Lumbar Paraspinals Body Location QL, Paraspinals, parascapulars Mobilization Type Sustained Pressure,Trigger Point Release Intensity/Depth Moderate Body Position Prone Cervical Paraspinals Body Location UT, Paraspinals, Scalenes, Levator Mobilization Type Sustained Pressure,Trigger Point Release Intensity/Depth Moderate Body Position Supine Joint Mobilizations Lumbar Joint L1-5 Direction P->A Grade III Body Position Prone PT-OP-T Assessment and Plan Start: 07/11/22 14:19 Freq: Status: Active Protocol: Document 07/31/23 09:45 DCW (Rec: 07/31/23 10:28 DCW [id number]) Physical Therapy Assessment Impairments Impairments Balance,Functional Activities, Functional Mobility,Gait, Integument,Pain,Posture,ROM, Soft Tissue Mobility,Strength, Tone,Vestibular Goals Three Impairment Pt experiences dizziness with positional changes Skilled Nursing Goal (LTG) Pt to report no episodes of dizziness while lying in bed for one full week to improve sleep pattern LTG Duration Met Two Impairment Left cervical rotation limited to 26? Malware Analyst Goal (LTG) Pt to increase left cervical rotation by at least 19? to 45 ? in order to improve ability to turn head to look for traffic while driving. LTG Duration 09/03/23 - Improving One Impairment Pt does not have an appropriate home exercise program Short Term Goal (STG) Pt to be independent and compliant with an appropriate HEP STG Duration 07/07/23 Assessment Summary Assessment Pt continues to show good improvement with lumbar and cervical tone, gait and posture significantly improved . Physical Therapy Plan Frequency and Duration Frequency of Treatment 2x/Week Plan of Care Start Date 06/05/23 Plan of Care End Date 09/03/23 Therapeutic Interventions Therapeutic Interventions Aquatic Therapy,Balance Training,Gait Training,Home Exercise Program,Joint Mobilizations,Manual Therapy, Neuromuscular Re-education, Patient/Caregiver Education, Self-Care/Home Management,Soft Tissue Mobilization, Therapeutic Activities, Therapeutic Exercises, Vestibular Rehabilitation Modalities Cold Pack/Ice Massage,Electric Stimulation,Hot Packs, Ultrasound Next Visit Focus/Plan Next Note Type Treatment Note Next Visit Plan Cervical and lumbar STM/ stretching, core strengthening
--- NOTE | 2023-08-03 11:14 | PT.OTN ---
Current Diagnoses Benign paroxysmal vertigo, unspecified ear (08/03/23) Stiffness of other specified joint, not elsewhere classified (08/03/23) Spinal stenosis, lumbar region with neurogenic claudication (08/03/23) Intervertebral disc disorders with myelopathy, thoracic region (08/03/23) Other intervertebral disc displacement, lumbar region (08/03/23) Other intervertebral disc degeneration, lumbar region (08/03/23) Cervicalgia (08/03/23) Physical Therapy Treatment Note PT-OP-A Visit Information Start: 07/11/22 14:19 Freq: Status: Active Protocol: Document 08/03/23 10:30 DCW (Rec: 08/03/23 11:14 DCW [id number]) Out-Patient Physical Therapy Visit Information Visit Information Visit Type Treatment Note Visit Start Time 10:30 Visit Stop Time 11:15 Total Visit Minutes 45 Visit Number 63 Number of MUSHROOM PRESS OPERATOR Visits 0 Evaluation Information Evaluation Date 07/11/22 PT-OP-B Current Condition Start: 07/11/22 14:19 Freq: Status: Active Protocol: Document 07/11/22 11:15 DCW (Rec: 07/11/22 17:44 DCW [id number]) Current Condition History of Current Condition Onset Date Long-standing history Current Complaints Dizziness, cervical pain, thoracic pain, lumbar pain History of Current Condition Pt is a 57 year old male very well known to this clinic presenting with a multitude of complaints and ailments. Pt was recently seen at this facility following ankle surgery ~1 year ago, after which he had a sudden onset of new autoimmune disease, which left him hospitalized for one month, greatly setting back his recovery for his ankle. Due to poor gait, repeatedly twisting his ankle, and multiple falls, pt began to have significant pain in his mid- and low-back, as well as his right hip. Additionally, pt has been complaining of ongoing dizziness for the past six months, typically with various head turns, lasting multiple minutes to half an hour. Pt has had multiple surgeries in the past, including, but not limited to, ankle surgery, cervical fusion (s/p ~10 years), and thoracic outlet syndrome surgery. Treatment Goals Patient/Caregiver Goals Improve mobility by decreasing back pain PT-OP-C Subjective Start: 07/11/22 14:19 Freq: Status: Active Protocol: Document 08/03/23 10:30 DCW (Rec: 08/03/23 11:14 DCW [id number]) OP-PT Subjective Patient Comments Patient Comments Pt notes his neck is feeling better, but his back is a little more sore today, there 's a knot back there that's really making itself known. PT-OP-F Manual Assessment Start: 07/11/22 14:19 Freq: Status: Active Protocol: Document 06/05/23 09:30 DCW (Rec: 06/05/23 13:01 DCW [id number]) Manual Assessments Soft Tissue Assessment Soft Tissue Mobility Assessment Severe tone with tenderness to palpation 3/4: Wincing and withdraw along lumbar paraspinals and QL. Moderate tone with tenderness to palpation 2/4: Pain with wincing along bilateral cervical paraspinals, upper trap, levator scap, and SCM. PT-OP-K Range of Motion Start: 07/11/22 14:19 Freq: Status: Active Protocol: Document 06/05/23 09:30 DCW (Rec: 06/05/23 13:01 DCW [id number]) Cervical Spine Range of Motion Cervical Spine Active Degrees Testing Position Sitting Flexion 45 Extension 35 Rotation Left 40 Rotation Right 52 Lateral Flexion Left 34 Lateral Flexion Right 22 ROM Limitations Soft Tissue Tightness, Contracture,Bony Restriction, Muscle Tone,Pain Lumbar Spine Range of Motion Lumbar Spine Active Degrees Testing Position Standing Flexion 48 Extension 16 ROM Limitations Soft Tissue Tightness, Contracture,Bony Restriction, Muscle Tone,Pain PT-OP-L Special Tests Start: 07/11/22 14:19 Freq: Status: Active Protocol: Document 06/05/23 09:30 DCW (Rec: 06/05/23 13:01 DCW [id number]) Special Tests Cervical Spine Special Tests Slump Test Results Negative Traction Test Results Mild pain relief Spurling's Test Test Results Negative Passive Neck Flexion Test Results Negative Foraminal Compression Test Results Negative Alar Ligament Test Results Negative PT-OP-O Vestibular Start: 07/11/22 14:19 Freq: Status: Active Protocol: Document 07/11/22 11:15 DCW (Rec: 07/11/22 14:23 DCW [id number]) Vestibular Assessment Screening Tests Vestibular Artery Screen Negative Sharp-Selena Test Negative Visual Testing Smooth Pursuits Horizontal WNL Smooth Pursuits Vertical WNL Saccades Horizontal WNL Saccades Vertical WNL Heave Test Positive Right Thrust Head Positive Right Positional Testing Samantha-Hallpike Negative Left,Negative Right Rolling Test Negative Left,Negative Right Comments Vestibular Comments Pt reports vertigo/dizziness in all positions, worse with left-side dependent, but zero signs of nystagmus. Pt also has poor cervical extension and rotation, limiting proper positioning PT-OP-Q Treatments Start: 07/11/22 14:19 Freq: Status: Active Protocol: Document 08/03/23 10:30 DCW (Rec: 08/03/23 11:14 DCW [id number]) Manual Therapy Treatment Soft Tissue Mobilization Lumbar Paraspinals Body Location QL, Paraspinals, parascapulars Mobilization Type Sustained Pressure,Trigger Point Release Intensity/Depth Moderate Body Position Prone Cervical Paraspinals Body Location UT, Paraspinals, Scalenes, Levator Mobilization Type Sustained Pressure,Trigger Point Release Intensity/Depth Moderate Body Position Supine Joint Mobilizations Lumbar Joint L1-5 Direction P->A Grade III Body Position Prone PT-OP-T Assessment and Plan Start: 07/11/22 14:19 Freq: Status: Active Protocol: Document 08/03/23 10:30 DCW (Rec: 08/03/23 11:14 DCW [id number]) Physical Therapy Assessment Impairments Impairments Balance,Functional Activities, Functional Mobility,Gait, Integument,Pain,Posture,ROM, Soft Tissue Mobility,Strength, Tone,Vestibular Goals Three Impairment Pt experiences dizziness with positional changes Environmental Education Specialist Goal (LTG) Pt to report no episodes of dizziness while lying in bed for one full week to improve sleep pattern LTG Duration Met Two Impairment Left cervical rotation limited to 26? Usp Goal (LTG) Pt to increase left cervical rotation by at least 19? to 45 ? in order to improve ability to turn head to look for traffic while driving. LTG Duration 09/03/23 - Improving One Impairment Pt does not have an appropriate home exercise program Short Term Goal (STG) Pt to be independent and compliant with an appropriate HEP STG Duration 07/07/23 Assessment Summary Assessment Increased tone in left proximal glute max, spent most of today working on decreasing tone and improving mobility, pt instructed to due resisted hip extension and skaters for HEP. Physical Therapy Plan Frequency and Duration Frequency of Treatment 2x/Week Plan of Care Start Date 06/05/23 Plan of Care End Date 09/03/23 Therapeutic Interventions Therapeutic Interventions Aquatic Therapy,Balance Training,Gait Training,Home Exercise Program,Joint Mobilizations,Manual Therapy, Neuromuscular Re-education, Patient/Caregiver Education, Self-Care/Home Management,Soft Tissue Mobilization, Therapeutic Activities, Therapeutic Exercises, Vestibular Rehabilitation Modalities Cold Pack/Ice Massage,Electric Stimulation,Hot Packs, Ultrasound Next Visit Focus/Plan Next Note Type Treatment Note Next Visit Plan Cervical and lumbar STM/ stretching, core strengthening
--- NOTE | 2023-08-08 11:12 | PT.OTN ---
Current Diagnoses Benign paroxysmal vertigo, unspecified ear (08/08/23) Stiffness of other specified joint, not elsewhere classified (08/08/23) Spinal stenosis, lumbar region with neurogenic claudication (08/08/23) Intervertebral disc disorders with myelopathy, thoracic region (08/08/23) Other intervertebral disc displacement, lumbar region (08/08/23) Other intervertebral disc degeneration, lumbar region (08/08/23) Cervicalgia (08/08/23) Physical Therapy Treatment Note PT-OP-A Visit Information Start: 07/11/22 14:19 Freq: Status: Active Protocol: Document 08/08/23 10:34 DCW (Rec: 08/08/23 11:12 DCW [id number]) Out-Patient Physical Therapy Visit Information Visit Information Visit Type Treatment Note Visit Start Time 10:34 Visit Stop Time 11:15 Total Visit Minutes 41 Visit Number 64 Number of MINK RANCHER Visits 0 Evaluation Information Evaluation Date 07/11/22 PT-OP-B Current Condition Start: 07/11/22 14:19 Freq: Status: Active Protocol: Document 07/11/22 11:15 DCW (Rec: 07/11/22 17:44 DCW [id number]) Current Condition History of Current Condition Onset Date Long-standing history Current Complaints Dizziness, cervical pain, thoracic pain, lumbar pain History of Current Condition Pt is a 57 year old male very well known to this clinic presenting with a multitude of complaints and ailments. Pt was recently seen at this facility following ankle surgery ~1 year ago, after which he had a sudden onset of new autoimmune disease, which left him hospitalized for one month, greatly setting back his recovery for his ankle. Due to poor gait, repeatedly twisting his ankle, and multiple falls, pt began to have significant pain in his mid- and low-back, as well as his right hip. Additionally, pt has been complaining of ongoing dizziness for the past six months, typically with various head turns, lasting multiple minutes to half an hour. Pt has had multiple surgeries in the past, including, but not limited to, ankle surgery, cervical fusion (s/p ~10 years), and thoracic outlet syndrome surgery. Treatment Goals Patient/Caregiver Goals Improve mobility by decreasing back pain PT-OP-C Subjective Start: 07/11/22 14:19 Freq: Status: Active Protocol: Document 08/08/23 10:34 DCW (Rec: 08/08/23 11:12 DCW [id number]) OP-PT Subjective Patient Comments Patient Comments Somethings are better, somethings are worse. PT-OP-F Manual Assessment Start: 07/11/22 14:19 Freq: Status: Active Protocol: Document 06/05/23 09:30 DCW (Rec: 06/05/23 13:01 DCW [id number]) Manual Assessments Soft Tissue Assessment Soft Tissue Mobility Assessment Severe tone with tenderness to palpation 3/4: Wincing and withdraw along lumbar paraspinals and QL. Moderate tone with tenderness to palpation 2/4: Pain with wincing along bilateral cervical paraspinals, upper trap, levator scap, and SCM. PT-OP-K Range of Motion Start: 07/11/22 14:19 Freq: Status: Active Protocol: Document 06/05/23 09:30 DCW (Rec: 06/05/23 13:01 DCW [id number]) Cervical Spine Range of Motion Cervical Spine Active Degrees Testing Position Sitting Flexion 45 Extension 35 Rotation Left 40 Rotation Right 52 Lateral Flexion Left 34 Lateral Flexion Right 22 ROM Limitations Soft Tissue Tightness, Contracture,Bony Restriction, Muscle Tone,Pain Lumbar Spine Range of Motion Lumbar Spine Active Degrees Testing Position Standing Flexion 48 Extension 16 ROM Limitations Soft Tissue Tightness, Contracture,Bony Restriction, Muscle Tone,Pain PT-OP-L Special Tests Start: 07/11/22 14:19 Freq: Status: Active Protocol: Document 06/05/23 09:30 DCW (Rec: 06/05/23 13:01 DCW [id number]) Special Tests Cervical Spine Special Tests Slump Test Results Negative Traction Test Results Mild pain relief Spurling's Test Test Results Negative Passive Neck Flexion Test Results Negative Foraminal Compression Test Results Negative Alar Ligament Test Results Negative PT-OP-O Vestibular Start: 07/11/22 14:19 Freq: Status: Active Protocol: Document 07/11/22 11:15 DCW (Rec: 07/11/22 14:23 DCW [id number]) Vestibular Assessment Screening Tests Vestibular Artery Screen Negative Sharp-Selena Test Negative Visual Testing Smooth Pursuits Horizontal WNL Smooth Pursuits Vertical WNL Saccades Horizontal WNL Saccades Vertical WNL Heave Test Positive Right Thrust Head Positive Right Positional Testing Samantha-Hallpike Negative Left,Negative Right Rolling Test Negative Left,Negative Right Comments Vestibular Comments Pt reports vertigo/dizziness in all positions, worse with left-side dependent, but zero signs of nystagmus. Pt also has poor cervical extension and rotation, limiting proper positioning PT-OP-Q Treatments Start: 07/11/22 14:19 Freq: Status: Active Protocol: Document 08/08/23 10:34 DCW (Rec: 08/08/23 11:12 DCW [id number]) Manual Therapy Treatment Soft Tissue Mobilization Lumbar Paraspinals Body Location QL, Paraspinals, parascapulars Mobilization Type Sustained Pressure,Trigger Point Release Intensity/Depth Moderate Body Position Prone Joint Mobilizations Lumbar Joint L1-5 Direction P->A Grade III Body Position Prone PT-OP-T Assessment and Plan Start: 07/11/22 14:19 Freq: Status: Active Protocol: Document 08/08/23 10:34 DCW (Rec: 08/08/23 11:12 DCW [id number]) Physical Therapy Assessment Impairments Impairments Balance,Functional Activities, Functional Mobility,Gait, Integument,Pain,Posture,ROM, Soft Tissue Mobility,Strength, Tone,Vestibular Goals Three Impairment Pt experiences dizziness with positional changes Senior Care Goal (LTG) Pt to report no episodes of dizziness while lying in bed for one full week to improve sleep pattern LTG Duration Met Two Impairment Left cervical rotation limited to 26? Radiation Protection Specialist Goal (LTG) Pt to increase left cervical rotation by at least 19? to 45 ? in order to improve ability to turn head to look for traffic while driving. LTG Duration 09/03/23 - Improving One Impairment Pt does not have an appropriate home exercise program Short Term Goal (STG) Pt to be independent and compliant with an appropriate HEP STG Duration 07/07/23 Assessment Summary Assessment Pt's skin removal surgery got moved up three weeks, will likely only have 1-3 more visits, then will likely need to discharge due to change in medical status. Informed pt he will need a new referral post -op to return to skilled PT. Physical Therapy Plan Frequency and Duration Frequency of Treatment 2x/Week Plan of Care Start Date 06/05/23 Plan of Care End Date 09/03/23 Therapeutic Interventions Therapeutic Interventions Aquatic Therapy,Balance Training,Gait Training,Home Exercise Program,Joint Mobilizations,Manual Therapy, Neuromuscular Re-education, Patient/Caregiver Education, Self-Care/Home Management,Soft Tissue Mobilization, Therapeutic Activities, Therapeutic Exercises, Vestibular Rehabilitation Modalities Cold Pack/Ice Massage,Electric Stimulation,Hot Packs, Ultrasound Next Visit Focus/Plan Next Note Type Treatment Note Next Visit Plan Cervical and lumbar STM/ stretching, core strengthening
--- NOTE | 2023-08-10 12:46 | PT.OTN ---
Current Diagnoses Benign paroxysmal vertigo, unspecified ear (08/10/23) Stiffness of other specified joint, not elsewhere classified (08/10/23) Spinal stenosis, lumbar region with neurogenic claudication (08/10/23) Intervertebral disc disorders with myelopathy, thoracic region (08/10/23) Other intervertebral disc displacement, lumbar region (08/10/23) Other intervertebral disc degeneration, lumbar region (08/10/23) Cervicalgia (08/10/23) Physical Therapy Treatment Note PT-OP-A Visit Information Start: 07/11/22 14:19 Freq: Status: Active Protocol: Document 08/10/23 12:00 DCW (Rec: 08/10/23 12:46 DCW [id number]) Out-Patient Physical Therapy Visit Information Visit Information Visit Type Treatment Note Visit Start Time 12:00 Visit Stop Time 12:45 Total Visit Minutes 45 Visit Number 65 Number of NITROGLYCERIN NEUTRALIZER Visits 0 Evaluation Information Evaluation Date 07/11/22 PT-OP-B Current Condition Start: 07/11/22 14:19 Freq: Status: Active Protocol: Document 07/11/22 11:15 DCW (Rec: 07/11/22 17:44 DCW [id number]) Current Condition History of Current Condition Onset Date Long-standing history Current Complaints Dizziness, cervical pain, thoracic pain, lumbar pain History of Current Condition Pt is a 57 year old male very well known to this clinic presenting with a multitude of complaints and ailments. Pt was recently seen at this facility following ankle surgery ~1 year ago, after which he had a sudden onset of new autoimmune disease, which left him hospitalized for one month, greatly setting back his recovery for his ankle. Due to poor gait, repeatedly twisting his ankle, and multiple falls, pt began to have significant pain in his mid- and low-back, as well as his right hip. Additionally, pt has been complaining of ongoing dizziness for the past six months, typically with various head turns, lasting multiple minutes to half an hour. Pt has had multiple surgeries in the past, including, but not limited to, ankle surgery, cervical fusion (s/p ~10 years), and thoracic outlet syndrome surgery. Treatment Goals Patient/Caregiver Goals Improve mobility by decreasing back pain PT-OP-C Subjective Start: 07/11/22 14:19 Freq: Status: Active Protocol: Document 08/10/23 12:00 DCW (Rec: 08/10/23 12:46 DCW [id number]) OP-PT Subjective Patient Comments Patient Comments Pt doing better today, feels his low back has improved some , but still a couple areas that aren't so hot. PT-OP-F Manual Assessment Start: 07/11/22 14:19 Freq: Status: Active Protocol: Document 06/05/23 09:30 DCW (Rec: 06/05/23 13:01 DCW [id number]) Manual Assessments Soft Tissue Assessment Soft Tissue Mobility Assessment Severe tone with tenderness to palpation 3/4: Wincing and withdraw along lumbar paraspinals and QL. Moderate tone with tenderness to palpation 2/4: Pain with wincing along bilateral cervical paraspinals, upper trap, levator scap, and SCM. PT-OP-K Range of Motion Start: 07/11/22 14:19 Freq: Status: Active Protocol: Document 06/05/23 09:30 DCW (Rec: 06/05/23 13:01 DCW [id number]) Cervical Spine Range of Motion Cervical Spine Active Degrees Testing Position Sitting Flexion 45 Extension 35 Rotation Left 40 Rotation Right 52 Lateral Flexion Left 34 Lateral Flexion Right 22 ROM Limitations Soft Tissue Tightness, Contracture,Bony Restriction, Muscle Tone,Pain Lumbar Spine Range of Motion Lumbar Spine Active Degrees Testing Position Standing Flexion 48 Extension 16 ROM Limitations Soft Tissue Tightness, Contracture,Bony Restriction, Muscle Tone,Pain PT-OP-L Special Tests Start: 07/11/22 14:19 Freq: Status: Active Protocol: Document 06/05/23 09:30 DCW (Rec: 06/05/23 13:01 DCW [id number]) Special Tests Cervical Spine Special Tests Slump Test Results Negative Traction Test Results Mild pain relief Spurling's Test Test Results Negative Passive Neck Flexion Test Results Negative Foraminal Compression Test Results Negative Alar Ligament Test Results Negative PT-OP-O Vestibular Start: 07/11/22 14:19 Freq: Status: Active Protocol: Document 07/11/22 11:15 DCW (Rec: 07/11/22 14:23 DCW [id number]) Vestibular Assessment Screening Tests Vestibular Artery Screen Negative Sharp-Selena Test Negative Visual Testing Smooth Pursuits Horizontal WNL Smooth Pursuits Vertical WNL Saccades Horizontal WNL Saccades Vertical WNL Heave Test Positive Right Thrust Head Positive Right Positional Testing Samantha-Hallpike Negative Left,Negative Right Rolling Test Negative Left,Negative Right Comments Vestibular Comments Pt reports vertigo/dizziness in all positions, worse with left-side dependent, but zero signs of nystagmus. Pt also has poor cervical extension and rotation, limiting proper positioning PT-OP-Q Treatments Start: 07/11/22 14:19 Freq: Status: Active Protocol: Document 08/10/23 12:00 DCW (Rec: 08/10/23 12:46 [facility] [id number]) Manual Therapy Treatment Soft Tissue Mobilization Lumbar Paraspinals Body Location QL, Paraspinals, parascapulars Mobilization Type Sustained Pressure,Trigger Point Release Intensity/Depth Moderate Body Position Prone Cervical Paraspinals Body Location UT, Paraspinals, Scalenes, Levator Mobilization Type Sustained Pressure,Trigger Point Release Intensity/Depth Moderate Body Position Supine Joint Mobilizations Lumbar Joint L1-5 Direction P->A Grade III Body Position Prone PT-OP-T Assessment and Plan Start: 07/11/22 14:19 Freq: Status: Active Protocol: Document 08/10/23 12:00 DCW (Rec: 08/10/23 12:46 [facility] [id number]) Physical Therapy Assessment Impairments Impairments Balance,Functional Activities, Functional Mobility,Gait, Integument,Pain,Posture,ROM, Soft Tissue Mobility,Strength, Tone,Vestibular Goals Three Impairment Pt experiences dizziness with positional changes Histologic Technician Goal (LTG) Pt to report no episodes of dizziness while lying in bed for one full week to improve sleep pattern LTG Duration Met Two Impairment Left cervical rotation limited to 26? [facility] Goal (LTG) Pt to increase left cervical rotation by at least 19? to 45 ? in order to improve ability to turn head to look for traffic while driving. LTG Duration 09/03/23 - Improving One Impairment Pt does not have an appropriate home exercise program Short Term Goal (STG) Pt to be independent and compliant with an appropriate HEP STG Duration 07/07/23 Assessment Summary Assessment Pt doing fairly well today, good tolerance to STM today. Will likely be discharging soon due to upcoming surgery. Physical Therapy Plan Frequency and Duration Frequency of Treatment 2x/Week Plan of Care Start Date 06/05/23 Plan of Care End Date 09/03/23 Therapeutic Interventions Therapeutic Interventions Aquatic Therapy,Balance Training,Gait Training,Home Exercise Program,Joint Mobilizations,Manual Therapy, Neuromuscular Re-education, Patient/Caregiver Education, Self-Care/Home Management,Soft Tissue Mobilization, Therapeutic Activities, Therapeutic Exercises, Vestibular Rehabilitation Modalities Cold Pack/Ice Massage,Electric Stimulation,Hot Packs, Ultrasound Next Visit Focus/Plan Next Note Type Treatment Note Next Visit Plan Cervical and lumbar STM/ stretching, core strengthening
--- NOTE | 2023-09-04 13:50 | PT.OPDS ---
Current Diagnoses Benign paroxysmal vertigo, unspecified ear (08/10/23) Stiffness of other specified joint, not elsewhere classified (08/10/23) Spinal stenosis, lumbar region with neurogenic claudication (08/10/23) Intervertebral disc disorders with myelopathy, thoracic region (08/10/23) Other intervertebral disc displacement, lumbar region (08/10/23) Other intervertebral disc degeneration, lumbar region (08/10/23) Cervicalgia (08/10/23) Visit Care Team Role Provider Type Jhon Taylor MD Attending Provider Physician Family Provider Primary Care Provider Referring Provider Specialty: Internal Medicine Address: [address] [place] [address] Email: [email or web address] Visit Number Visit Number 65 Discharge Summary PT-OP-B Current Condition Start: 07/11/22 14:19 Freq: Status: Active Protocol: Document 07/11/22 11:15 DCW (Rec: 07/11/22 17:44 DCW [id number]) Current Condition History of Current Condition Onset Date Long-standing history Current Complaints Dizziness, cervical pain, thoracic pain, lumbar pain History of Current Condition Pt is a 57 year old male very well known to this clinic presenting with a multitude of complaints and ailments. Pt was recently seen at this facility following ankle surgery ~1 year ago, after which he had a sudden onset of new autoimmune disease, which left him hospitalized for one month, greatly setting back his recovery for his ankle. Due to poor gait, repeatedly twisting his ankle, and multiple falls, pt began to have significant pain in his mid- and low-back, as well as his right hip. Additionally, pt has been complaining of ongoing dizziness for the past six months, typically with various head turns, lasting multiple minutes to half an hour. Pt has had multiple surgeries in the past, including, but not limited to, ankle surgery, cervical fusion (s/p ~10 years), and thoracic outlet syndrome surgery. Treatment Goals Patient/Caregiver Goals Improve mobility by decreasing back pain PT-OP-C Subjective Start: 07/11/22 14:19 Freq: Status: Active Protocol: Document 08/10/23 12:00 DCW (Rec: 08/10/23 12:46 DCW [id number]) OP-PT Subjective Patient Comments Patient Comments Pt doing better today, feels his low back has improved some , but still a couple areas that aren't so hot. PT-OP-F Manual Assessment Start: 07/11/22 14:19 Freq: Status: Active Protocol: Document 06/05/23 09:30 DCW (Rec: 06/05/23 13:01 DCW [id number]) Manual Assessments Soft Tissue Assessment Soft Tissue Mobility Assessment Severe tone with tenderness to palpation 3/4: Wincing and withdraw along lumbar paraspinals and QL. Moderate tone with tenderness to palpation 2/4: Pain with wincing along bilateral cervical paraspinals, upper trap, levator scap, and SCM. PT-OP-K Range of Motion Start: 07/11/22 14:19 Freq: Status: Active Protocol: Document 06/05/23 09:30 DCW (Rec: 06/05/23 13:01 DCW [id number]) Cervical Spine Range of Motion Cervical Spine Active Degrees Testing Position Sitting Flexion 45 Extension 35 Rotation Left 40 Rotation Right 52 Lateral Flexion Left 34 Lateral Flexion Right 22 ROM Limitations Soft Tissue Tightness, Contracture,Bony Restriction, Muscle Tone,Pain Lumbar Spine Range of Motion Lumbar Spine Active Degrees Testing Position Standing Flexion 48 Extension 16 ROM Limitations Soft Tissue Tightness, Contracture,Bony Restriction, Muscle Tone,Pain PT-OP-L Special Tests Start: 07/11/22 14:19 Freq: Status: Active Protocol: Document 06/05/23 09:30 DCW (Rec: 06/05/23 13:01 DCW [id number]) Special Tests Cervical Spine Special Tests Slump Test Results Negative Traction Test Results Mild pain relief Spurling's Test Test Results Negative Passive Neck Flexion Test Results Negative Foraminal Compression Test Results Negative Alar Ligament Test Results Negative PT-OP-O Vestibular Start: 07/11/22 14:19 Freq: Status: Active Protocol: Document 07/11/22 11:15 DCW (Rec: 07/11/22 14:23 DCW [id number]) Vestibular Assessment Screening Tests Vestibular Artery Screen Negative Sharp-Selena Test Negative Visual Testing Smooth Pursuits Horizontal WNL Smooth Pursuits Vertical WNL Saccades Horizontal WNL Saccades Vertical WNL Heave Test Positive Right Thrust Head Positive Right Positional Testing Brinkley-Hallpike Negative Left,Negative Right Rolling Test Negative Left,Negative Right Comments Vestibular Comments Pt reports vertigo/dizziness in all positions, worse with left-side dependent, but zero signs of nystagmus. Pt also has poor cervical extension and rotation, limiting proper positioning PT-OP-T Assessment and Plan Start: 07/11/22 14:19 Freq: Status: Active Protocol: Document 09/04/23 13:49 DCW (Rec: 09/04/23 13:50 DCW [id number]) Physical Therapy Assessment Assessment Summary Assessment Discharge secondary to unrelated surgical intervention resulting in change in medical status. Will require new referral in order to return to skilled therapy Physical Therapy Plan Discharge Physical Therapy Discharge Reasons Change in Medical Status
== END 2023-09-06 10:52 | disposition home or self-care (01) ==
LOC: PHYS 12:00
PROVIDERS: Family Provider Internal Medicine; PCP Internal Medicine; Referring Provider Internal Medicine; Visit Provider Internal Medicine
DX: H81.10 Benign paroxysmal vertigo, unspecified ear (principal); M51.26 Other intervertebral disc displacement, lumbar region; M48.062 Spinal stenosis, lumbar region with neurogenic claudication; M51.36 Other intervertebral disc degeneration, lumbar region; M51.04 Intervertebral disc disorders with myelopathy, thoracic region; M54.2 Cervicalgia; M25.69 Stiffness of other specified joint, not elsewhere classified
CPT/HCPCS: 97110; 97140; 97163

== ENCOUNTER → 2023-09-11 10:31 | Outpatient (CLI) | payer MEDICARE, MEDICAID, SELFPAY ==
[2023-08-23 09:15] VITALS: BMI 53.1
[2023-09-11 11:12] LABS: Hematocrit 29.4 % (41-53); Hemoglobin 9.9 g/dL (13.5-17.5); Mean Corpuscular HGB Conc 33.7 % (30-36); Mean Corpuscular Hemoglobin 31.8 PG (26-34); Mean Corpuscular Volume 94.3 fL (80-100); Platelet Count 236 X10^3/uL (150-400); Red Blood Cell Count 3.12 X10^6/uL (4.5-5.9); Red Cell Distribution Width 17.4 % (11.6-14.8); White Blood Cell Count 6.7 X10^3/uL (4.5-11.0)
[2023-09-11 11:27] LABS: Hemoglobin A1C% w Est Avg Glu 4.7 % (4.0-6.0)
[2023-09-11 12:26] LABS: HEMOLYSIS < 15 (0-50); Iron 76 ug/dL (49-181)
[2023-09-11 12:31] LABS: Alanine Aminotransferase 22 IU/L (<50); Albumin 4.1 g/dL (3.5-5.0); Albumin Globulin Ratio 1.1 (1.0-2.8); Alkaline Phosphatase 71 U/L (38-126); Aspartate Aminotransferase 27 IU/L (17-59); BUN Creatinine Ratio 22.7 (6-22); Bilirubin Total 0.5 mg/dL (0.2-1.3); Blood Urea Nitrogen 17 mg/dL (9-20); Calcium 9.5 mg/dL (8.4-10.2); Carbon Dioxide 27 mmol/L (22-32); Chloride 100 mmol/L (98-107); Cholesterol 112 mg/dL (140-199); Estimated Glomerular Filt Rate > 60 mL/min (>60); Globulin 3.7 g/dL (1.7-4.1); Glucose 126 mg/dL (70-100); HDL Cholesterol 32 mg/dL (40-60); HEMOLYSIS < 15 (0-50); LDL Cholesterol Calculated 40 mg/dL (<100); Potassium 4.4 mmol/L (3.4-5.1); Sodium 135 mmol/L (137-145); Total Protein 7.8 g/dL (6.3-8.2); Triglycerides 198 mg/dL (35-150)
[2023-09-11 12:38] LABS: Percent Iron Saturation 22 % (20-50); Total Iron Binding Capacity 352 ug/dL (261-462); Transferrin 300 mg/dL (206-381)
[2023-09-11 12:57] LABS: TSH w/ Reflex to FT4 0.38 uIU/mL (0.47-4.68)
[2023-09-11 13:06] LABS: Ferritin 28 ng/mL (18-464)
[2023-09-11 18:38] LABS: Creatinine Urine Random 111.2 mg/dL
[2023-09-11 19:06] LABS: Microalbumi Creatinin Ratio Ur 19.7 ug/mg CR (<30); Microalbumin Urine Random 2.2 mg/dL (0-1.6)
[2023-09-11 19:35] LABS: Free T4, Direct Thyroxine 1.03 ng/dL (0.78-2.19)
== END ==
PROVIDERS: Family Provider Internal Medicine; PCP Internal Medicine; Referring Provider Internal Medicine; Visit Provider Internal Medicine
DX: E11.621 Type 2 diabetes mellitus with foot ulcer (principal); E03.9 Hypothyroidism, unspecified; L97.509 Non-pressure chronic ulcer of other part of unspecified foot with unspecified severity; D62 Acute posthemorrhagic anemia
CPT/HCPCS: 36415; 80053; 80061; 82043; 82570; 82728; 83036; 83540; 83550; 84439; 84443; 85027

== ENCOUNTER → 2023-10-26 12:41 | Outpatient (CLI) | payer MEDICARE, MEDICAID, SELFPAY ==
[2023-08-23 09:15] VITALS: BMI 53.1
--- NOTE | 2023-10-26 12:43 | DI.RAD.S_ITS ---
PROCEDURE: SNIFF TEST UNDER FL FLUOROSCOPY COMPARISON: [facility], CR, XR CHEST 1 VIEW, 06/04/2021, 11:43. INDICATIONS: Right ventricular failure due to disorder of lung FINDINGS: The patient was examined under fluoroscopy with inspiration and expiration. The right hemidiaphragm is elevated. There is absence of right diaphragmatic excursion with inspiration or expiration. The left diaphragm is normal and mobile with respiratory motions. IMPRESSION: 1. Right diaphragmatic paralysis. Dictated by: Toro Valle M.D. on 10/26/2023 at 14:28 Approved by: Toro Valle M.D. on 10/26/2023 at 14:30
== END ==
LOC: RAD 12:42
PROVIDERS: Family Provider Internal Medicine; PCP Internal Medicine; Referring Provider Internal Medicine; Visit Provider Internal Medicine
DX: J98.6 Disorders of diaphragm (principal); I50.810 Right heart failure, unspecified; J98.4 Other disorders of lung
CPT/HCPCS: 76000

== ENCOUNTER → 2023-12-06 09:25 | Outpatient (CLI) | payer MEDICARE, MEDICAID, SELFPAY ==
[2023-08-23 09:15] VITALS: BMI 53.1
[2023-12-06 10:07] LABS: Add Manual Diff / Slide Review NO; Basophils Absolute Auto 0 /uL (0-100); Basophils Percent Auto 0.5 % (0-2); Eosinophils Absolute Auto 100 /uL (0-450); Hematocrit 38.8 % (41-53); Hemoglobin 13.4 g/dL (13.5-17.5); Lymphocytes Absolute Auto 1100 /uL (1100-4500); Lymphocytes Percent Auto 21.9 % (25-40); Mean Corpuscular HGB Conc 34.5 % (30-36); Mean Corpuscular Hemoglobin 29.2 PG (26-34); Mean Corpuscular Volume 84.6 fL (80-100); Monocytes Absolute Auto 500 /uL (0-900); Monocytes Percent Auto 10.1 % (3-14); Neutrophils Absolute Auto 3400 /uL (1500-7000); Neutrophils Percent Auto 65.5 % (50-75); Platelet Count 189 X10^3/uL (150-400); Red Blood Cell Count 4.59 X10^6/uL (4.5-5.9); White Blood Cell Count 5.2 X10^3/uL (4.5-11.0)
[2023-12-06 10:28] LABS: Erythrocyte Sedimentation Rate 25 MM/HR (0-15)
[2023-12-06 12:30] LABS: Alanine Aminotransferase 29 IU/L (<50); Albumin 4.2 g/dL (3.5-5.0); Albumin Globulin Ratio 1.3 (1.0-2.8); Alkaline Phosphatase 72 U/L (38-126); Aspartate Aminotransferase 33 IU/L (17-59); BUN Creatinine Ratio 10.5 (6-22); Bilirubin Total 0.5 mg/dL (0.2-1.3); Blood Urea Nitrogen 8 mg/dL (9-20); Calcium 9.1 mg/dL (8.4-10.2); Carbon Dioxide 30 mmol/L (22-32); Chloride 103 mmol/L (98-107); Cholesterol 140 mg/dL (140-199); Estimated Glomerular Filt Rate > 60 mL/min (>60); Globulin 3.2 g/dL (1.7-4.1); Glucose 130 mg/dL (70-100); HDL Cholesterol 34 mg/dL (40-60); HEMOLYSIS < 15 (0-50); LDL Cholesterol Calculated 78 mg/dL (<100); Potassium 4.1 mmol/L (3.4-5.1); Sodium 138 mmol/L (137-145); Total Protein 7.4 g/dL (6.3-8.2); Triglycerides 140 mg/dL (35-150)
[2023-12-06 13:30] LABS: Thyroid Stimulating Hormone 8.61 uIU/mL (0.47-4.68)
[2023-12-23 19:35] LABS: Immunoglobulin E 19 IU/mL (6-495)
== END ==
PROVIDERS: Family Provider Internal Medicine; PCP Internal Medicine; Referring Provider Internal Medicine; Visit Provider Internal Medicine
DX: L29.8 Other pruritus (principal); L20.89 Other atopic dermatitis; J45.909 Unspecified asthma, uncomplicated; L85.3 Xerosis cutis
CPT/HCPCS: 36415; 80053; 80061; 82785; 83520; 84439; 84443; 85025; 85651; 86140

== ENCOUNTER 2024-01-08 14:30 | Outpatient (RCR) | payer MEDICARE, MEDICAID, SELFPAY ==
[2023-08-23 09:15] VITALS: BMI 53.1
--- NOTE | 2023-10-19 16:22 | PT.OIE ---
Current Diagnoses Chronic pain syndrome (10/19/23) Spondylosis without myelopathy or radiculopathy, cervical region (10/19/23) Other intervertebral disc disorders, lumbar region (10/19/23) Other abnormalities of gait and mobility (10/19/23) Headache, unspecified (10/19/23) Past Medical History (Last Reviewed 10/10/23 @ 12:33 by Jhon Taylor MD) Acquired hypothyroidism Allergic rhinitis Anemia Anemia due to blood loss, acute Arthritis Asthma BPH (benign prostatic hyperplasia) BPPV (benign paroxysmal positional vertigo) Bullous pemphigoid Cervicalgia Yttzjjg-Kbsnc-Baeqh disease Chronic diastolic CHF (congestive heart failure) Chronic dyspnea Chronic pain syndrome Chronic, continuous use of opioids Cobalamin deficiency COPD (chronic obstructive pulmonary disease) Degenerative arthritis of cervical spine Degenerative joint disease of knee Degenerative joint disease, ankle, foot, toe Diabetic neuropathy Eczematous dermatitis Essential hypertension Grief reaction Herniated nucleus pulposus with myelopathy, thoracic Herniated nucleus pulposus, L1-2 Herniated nucleus pulposus, L3-4 left History of migraine headaches HTN (hypertension) FPC (current) use of insulin Major depression, recurrent Mixed hyperlipidemia Nephrolithiasis Non-pressure chronic ulcer of right heel and midfoot limited to breakdown of skin Obesity Opioid dependence, uncomplicated Phrenic nerve paralysis Postprocedural hypoparathyroidism Recurrent sinusitis Right foot drop Right rotator cuff tendonitis Secondary hyperaldosteronism Sinusitis Spinal stenosis of lumbar region at multiple levels Type 2 diabetes mellitus with foot ulcer Type 2 diabetes mellitus with polyneuropathy Past Surgical History (Last Reviewed 10/10/23 @ 12:33 by Jhon Taylor MD) History of incision and drainage (04/15/21) History of nasal surgery History of spinal fusion Hx of foot surgery Hx of fusion of cervical spine Hx of hand surgery Hx of knee surgery Hx of thyroidectomy Visit Care Team Role Provider Type Jhon Taylor MD Attending Provider Physician Family Provider Primary Care Provider Referring Provider Specialty: Internal Medicine Address: [address] [place] [address], [facility] Email: [email or web address] Physical Therapy Initial Evaluation PT-OP-A Visit Information Start: 10/19/23 11:59 Freq: Status: Active Protocol: Document 03/15/24 10:40 DCW (Rec: 10/19/23 12:02 DCW [id number]) Out-Patient Physical Therapy Visit Information Visit Information Visit Type Initial Evaluation Visit Start Time 10:40 Visit Stop Time 11:23 Visit Number 1 Number of HOE RUNNER Visits 0 Evaluation Information Evaluation Date 10/19/23 PT-OP-B Current Condition Start: 10/19/23 11:59 Freq: Status: Active Protocol: Document 10/19/23 10:40 DCW (Rec: 10/19/23 14:26 DCW [id number]) Current Condition History of Current Condition Onset Date Multi-year history Current Complaints Low back pain, neck pain, decreased activity tolerance, decreased mobility History of Current Condition Pt is a 58 year old male very well known to this clinic presenting with a highly complex medical history. Pt notes severe long-term cervical and low back pain. Pt does have a history of prior cervical fusion and is hoping for a lumbar fusion within the next 2-3 months. Pt was previously being seen at this clinic for the same complaints , but was discharged due to change in medical status for unrelated surgery. Pt underwent skin removal surgery 08/27/23 after losing a significant amount of weight. Unfortunately, the day following surgery, was exiting his vehicle with his fiancee, and had what appeared to be a seizure and LOC, EMT responded and pt was found to have a BP of 50/35, rushed to [facility] and found to have internal bleeding in his abdomen. Was stabilized and discharged again on . Feeling much better now, and after skin removal ( reports 20 pounds of skin and 7 pounds of fluid was removed) is ambulating with an improved posture and low back pain was feeling much better for ~7 weeks, however has recently been worsening again. Has also recently gotten new orthotic shoes, which both have a 1/4 inch lateral wedge to prevent eversion, which has been helpful in limiting what was previously a problem of nearly constantly rolling his ankles. Treatment Goals Patient/Caregiver Goals Improve pain level in low back and hip, improve ability to get into/out of vehicle, turn head more to look at merging traffic while driving, walk longer distances without pain PT-OP-C Subjective Start: 10/19/23 11:59 Freq: Status: Active Protocol: Document 10/19/23 10:40 DCW (Rec: 10/19/23 14:26 DCW [id number]) OP-PT Subjective Patient Comments Patient Comments Per Isaac: He tried to right there in my arms. Patient Questionnaires Oswestry Low Back Index Oswestry Score 30/50 = 60% OP-PT Pain Assessment Comments Pain Comments Near constant pain along entire spine, 01/13 PT-OP-E Functional Tests Start: 10/19/23 11:59 Freq: Status: Active Protocol: Document 10/19/23 10:40 DCW (Rec: 10/19/23 16:12 DCW [id number]) Functional Tests 2 Minute Walk Test Distance 284' Device Used None Comments 2.37 ft/sec PT-OP-F Manual Assessment Start: 10/19/23 11:59 Freq: Status: Active Protocol: Document 10/19/23 10:40 DCW (Rec: 10/19/23 16:12 DCW [id number]) Manual Assessments Soft Tissue Assessment Soft Tissue Mobility Assessment Moderate-severe tone B suboccipitals, upper traps, cervical paraspinals, lumbar paraspinals, QL, glutes PT-OP-G Mobility & Gait Start: 10/19/23 11:59 Freq: Status: Active Protocol: Document 10/19/23 10:40 DCW (Rec: 10/19/23 16:12 DCW [id number]) OP Gait Assessment Gait Deviations General Gait Pattern Antalgic,Decreased Stride Length,Decreased Feet Clearance,Flexed Trunk,Wide Based Gait Factors Limiting Gait Function Factors Limiting Gait Function Abnormal Tonal Influences, Decreased Activity Tolerance, Decreased Strength,Pain PT-OP-J Posture/Palpation/Skin Start: 10/19/23 11:59 Freq: Status: Active Protocol: Document 10/19/23 10:40 DCW (Rec: 10/19/23 16:12 DCW [id number]) Posture Evaluation Position Standing Evaluation View Lateral Head/C-Spine Posture C-Spine Flattened,Forward Head T-Spine Posture Flattened L-Spine Posture Flattened,Decreased Lordosis Hip Posture (L) Flexed,(R) Flexed Knee Posture (L) Genu Varus,(R) Genu Varus, (L) Ext. Tibial Torsion,(R) Ext. Tibial Torsion Ankle/Foot Posture (L) Pronated,(R) Pronated,(L) Calcaneal Eversion,(R) Calcaneal Eversion PT-OP-K Range of Motion Start: 10/19/23 11:59 Freq: Status: Active Protocol: Document 10/19/23 10:40 DCW (Rec: 10/19/23 16:12 DCW [id number]) Cervical Spine Range of Motion Cervical Spine Active Degrees Testing Position Sitting Flexion 25 Extension 35 Rotation Left 37 Rotation Right 50 Lateral Flexion Left 25 Lateral Flexion Right 15 Lumbar Spine Range of Motion Lumbar Spine Active Degrees Testing Position Standing Flexion 20 Extension 5 PT-OP-M Strength Start: 10/19/23 11:59 Freq: Status: Active Protocol: Document 10/19/23 10:40 DCW (Rec: 10/19/23 16:12 DCW [id number]) Hip Strength Hip Manual Muscle Testing Right Flexion (L2) 4+ Good+ Abduction 5 Normal Adduction 4+ Good+ Left Flexion (L2) 4- Good- Abduction 5 Normal Adduction 4+ Good+ PT-OP-Q Treatments Start: 10/19/23 11:59 Freq: Status: Active Protocol: Document 10/19/23 10:40 DCW (Rec: 10/19/23 12:02 DCW [id number]) Therapeutic Exercises Sitting Exercises Internal Rotation Sitting Exercise Name Seated reverse clamshells Side bilateral Resistance Lv 2 Manual Therapy Treatment Soft Tissue Mobilization Lumbar Body Location B Lumbar paraspinals Mobilization Type Strumming,Sustained Pressure Intensity/Depth Moderate Body Position Sitting PT-OP-T Assessment and Plan Start: 10/19/23 11:59 Freq: Status: Active Protocol: Document 10/19/23 10:40 DCW (Rec: 10/19/23 16:22 DCW [id number]) Physical Therapy Assessment Rehab Potential Rehabilitation Potential Fair Evaluation Complexity Number of Personal Factors/Comorbidities 3 or More Number of Body Systems Impaired 4 or More Clinical Presentation at Evaluation Unstable Impairments Impairments Activity Tolerance,Balance, Edema,Functional Activities, Functional Mobility,Gait, Integument,Pain,Posture,ROM, Sensation,Soft Tissue Mobility ,Strength,Tone Goals Three Impairment Cervical rotation limited to 50? R and 37? L Senior Care Goal (LTG) Right cervical rotation to improve to at least 50? in order to improve pt's ability to check for traffic while attempting to merge while driving LTG Duration 01/17/24 Two Impairment Pt ambulates 284' during Two Minute Walk Test Solution Engineer Goal (LTG) Pt to demonstrate increased activity tolerance by completing a full 6MWT without a rest break, and demonstrates ability to ambulate >700' during the test LTG Duration 01/17/24 One Impairment Pt does not have an appropriate home exercise program Short Term Goal (STG) Pt to be independent and compliant with an appropriate HEP STG Duration 11/19/23 Assessment Summary Assessment Pt presents with signs and symptoms consistent with prior participation in therapeutic rehabilitation. Pt has multi- factorial limitations with gait, posture, pain, activity tolerance, functional mobility , and weakness. Hip strengthening should help pt's ability to get in/out of vehicle with less difficulty. Improving activity tolerance will help assist pt in his goal to improve ability to ambulate for longer distances without pain. Pt should continue to benefit from therapeutic intervention focusing on pain control and tone management with use on STM and joint mobilizations, hwich previously has been helpful to assist in pt's mobility and postural control. Pt is planning for upcoming lumbar fusion, hopeful that it happens in December. Physical Therapy Plan Frequency and Duration Frequency of Treatment 2x/Week Plan of Care Start Date 10/19/23 Plan of Care End Date 01/17/24 Next Visit Focus/Plan Next Note Type Treatment Note Next Visit Plan Hip strengthening, activity tolerance, Lumbar/Cervical STM and joint mobs.
--- NOTE | 2023-10-19 16:23 | PT.OPPOC ---
Physical, Occupational & Speech Therapy At [facility] Current Diagnoses Chronic pain syndrome (10/19/23) Spondylosis without myelopathy or radiculopathy, cervical region (10/19/23) Other intervertebral disc disorders, lumbar region (10/19/23) Other abnormalities of gait and mobility (10/19/23) Headache, unspecified (10/19/23) Visit Care Team Role Provider Type Jhon Taylor MD Attending Provider Physician Family Provider Primary Care Provider Referring Provider Specialty: Internal Medicine Address: [address] [place] [address], [facility] Email: [email or web address] Plan Of Care PT-OP-T Assessment and Plan Start: 10/19/23 11:59 Freq: Status: Active Protocol: Document 10/19/23 10:40 DCW (Rec: 10/19/23 16:22 DCW [id number]) Physical Therapy Assessment Rehab Potential Rehabilitation Potential Fair Evaluation Complexity Number of Personal Factors/Comorbidities 3 or More Number of Body Systems Impaired 4 or More Clinical Presentation at Evaluation Unstable Impairments Impairments Activity Tolerance,Balance, Edema,Functional Activities, Functional Mobility,Gait, Integument,Pain,Posture,ROM, Sensation,Soft Tissue Mobility ,Strength,Tone Goals Three Impairment Cervical rotation limited to 50? R and 37? L Correction Goal (LTG) Right cervical rotation to improve to at least 50? in order to improve pt's ability to check for traffic while attempting to merge while driving LTG Duration 01/17/24 Two Impairment Pt ambulates 284' during Two Minute Walk Test Correction Goal (LTG) Pt to demonstrate increased activity tolerance by completing a full 6MWT without a rest break, and demonstrates ability to ambulate >700' during the test LTG Duration 01/17/24 One Impairment Pt does not have an appropriate home exercise program Short Term Goal (STG) Pt to be independent and compliant with an appropriate HEP STG Duration 11/19/23 Assessment Summary Assessment Pt presents with signs and symptoms consistent with prior participation in therapeutic rehabilitation. Pt has multi- factorial limitations with gait, posture, pain, activity tolerance, functional mobility , and weakness. Hip strengthening should help pt's ability to get in/out of vehicle with less difficulty. Improving activity tolerance will help assist pt in his goal to improve ability to ambulate for longer distances without pain. Pt should continue to benefit from therapeutic intervention focusing on pain control and tone management with use on STM and joint mobilizations, hwich previously has been helpful to assist in pt's mobility and postural control. Pt is planning for upcoming lumbar fusion, hopeful that it happens in December. Physical Therapy Plan Frequency and Duration Frequency of Treatment 2x/Week Plan of Care Start Date 10/19/23 Plan of Care End Date 01/17/24 Next Visit Focus/Plan Next Note Type Treatment Note Next Visit Plan Hip strengthening, activity tolerance, Lumbar/Cervical STM and joint mobs. Plan of Care Dates Plan of Care Start Date 10/19/23 Plan of Care End Date 01/17/24 Electronically Signed by: Tong Card, PT 10/19/23 0222 If you are in agreement with this Plan of Care, please return a signed and dated copy. I have reviewed this Plan of Care and certify that the skilled therapy services above are required to meet the patient?s needs. Physician Signature Date Printed Name and Credentials Clinical Instructor Signature Printed Name and Credentials
--- NOTE | 2023-10-23 16:24 | PT.OTN ---
Current Diagnoses Chronic pain syndrome (10/23/23) Spondylosis without myelopathy or radiculopathy, cervical region (10/23/23) Other intervertebral disc disorders, lumbar region (10/23/23) Other abnormalities of gait and mobility (10/23/23) Headache, unspecified (10/23/23) Physical Therapy Treatment Note PT-OP-A Visit Information Start: 10/19/23 11:59 Freq: Status: Active Protocol: Document 10/23/23 13:41 SW (Rec: 10/23/23 14:31 SW [id number]) Out-Patient Physical Therapy Visit Information Visit Information Visit Type Treatment Note Visit Start Time 13:45 Visit Stop Time 14:25 Visit Number 2 Number of MANDATE RETAIL SERVICE MERCHANDISER Visits 1 PT-OP-B Current Condition Start: 10/19/23 11:59 Freq: Status: Active Protocol: Document 10/19/23 10:40 DCW (Rec: 10/19/23 14:26 DCW [id number]) Current Condition History of Current Condition Onset Date Multi-year history Current Complaints Low back pain, neck pain, decreased activity tolerance, decreased mobility History of Current Condition Pt is a 58 year old male very well known to this clinic presenting with a highly complex medical history. Pt notes severe long-term cervical and low back pain. Pt does have a history of prior cervical fusion and is hoping for a lumbar fusion within the next 2-3 months. Pt was previously being seen at this clinic for the same complaints , but was discharged due to change in medical status for unrelated surgery. Pt underwent skin removal surgery 08/27/23 after losing a significant amount of weight. Unfortunately, the day following surgery, was exiting his vehicle with his fiancee, and had what appeared to be a siezure and LOC, EMT responded and pt was found to have a BP of 50/35, rushed to [facility] and found to have internal bleeding in his abdomen. Was stabilized and discharged again on . Feeling much better now, and after skin removal ( reports 20 pounds of skin and 7 pounds of fluid was removed) is ambulating with an improved posture and low back pain was feeling much better for ~7 weeks, however has recently been worsening again. Has also recently gotten new orthotic shoes, which both have a 1/4 inch lateral wedge to prevent eversion, which has been helpful in limiting what was previously a problem of nearly constantly rolling his ankles. Treatment Goals Patient/Caregiver Goals Improve pain level in low back and hip, improve ability to get into/out of vehicle, turn head more to look at merging traffic while driving, walk longer distances without pain PT-OP-C Subjective Start: 10/19/23 11:59 Freq: Status: Active Protocol: Document 10/23/23 13:41 SW (Rec: 10/23/23 14:31 SW [id number]) OP-PT Subjective Patient Comments Patient Comments Pt reports getting drain out since last session PT-OP-E Functional Tests Start: 10/19/23 11:59 Freq: Status: Active Protocol: Document 10/19/23 10:40 DCW (Rec: 10/19/23 16:12 DCW [id number]) Functional Tests 2 Minute Walk Test Distance 284' Device Used None Comments 2.37 ft/sec PT-OP-F Manual Assessment Start: 10/19/23 11:59 Freq: Status: Active Protocol: Document 10/19/23 10:40 DCW (Rec: 10/19/23 16:12 DCW [id number]) Manual Assessments Soft Tissue Assessment Soft Tissue Mobility Assessment Moderate-severe tone B suboccipitals, upper traps, cervical paraspinals, lumbar paraspinals, QL, glutes PT-OP-G Mobility & Gait Start: 10/19/23 11:59 Freq: Status: Active Protocol: Document 10/19/23 10:40 DCW (Rec: 10/19/23 16:12 DCW [id number]) OP Gait Assessment Gait Deviations General Gait Pattern Antalgic,Decreased Stride Length,Decreased Feet Clearance,Flexed Trunk,Wide Based Gait Factors Limiting Gait Function Factors Limiting Gait Function Abnormal Tonal Influences, Decreased Activity Tolerance, Decreased Strength,Pain PT-OP-J Posture/Palpation/Skin Start: 10/19/23 11:59 Freq: Status: Active Protocol: Document 10/19/23 10:40 DCW (Rec: 10/19/23 16:12 DCW [id number]) Posture Evaluation Position Standing Evaluation View Lateral Head/C-Spine Posture C-Spine Flattened,Forward Head T-Spine Posture Flattened L-Spine Posture Flattened,Decreased Lordosis Hip Posture (L) Flexed,(R) Flexed Knee Posture (L) Genu Varus,(R) Genu Varus, (L) Ext. Tibial Torsion,(R) Ext. Tibial Torsion Ankle/Foot Posture (L) Pronated,(R) Pronated,(L) Calcaneal Eversion,(R) Calcaneal Eversion PT-OP-K Range of Motion Start: 10/19/23 11:59 Freq: Status: Active Protocol: Document 10/19/23 10:40 DCW (Rec: 10/19/23 16:12 DCW [id number]) Cervical Spine Range of Motion Cervical Spine Active Degrees Testing Position Sitting Flexion 25 Extension 35 Rotation Left 37 Rotation Right 50 Lateral Flexion Left 25 Lateral Flexion Right 15 Lumbar Spine Range of Motion Lumbar Spine Active Degrees Testing Position Standing Flexion 20 Extension 5 PT-OP-M Strength Start: 10/19/23 11:59 Freq: Status: Active Protocol: Document 10/19/23 10:40 DCW (Rec: 10/19/23 16:12 DCW [id number]) Hip Strength Hip Manual Muscle Testing Right Flexion (L2) 4+ Good+ Abduction 5 Normal Adduction 4+ Good+ Left Flexion (L2) 4- Good- Abduction 5 Normal Adduction 4+ Good+ PT-OP-Q Treatments Start: 10/19/23 11:59 Freq: Status: Active Protocol: Document 10/23/23 13:41 SW (Rec: 10/23/23 14:31 SW [id number]) Therapeutic Exercises Sitting Exercises Flexion Sitting Exercise Name hip flexion Side bilateral Resistance lv 2 Internal Rotation Sitting Exercise Name Seated reverse clamshells Side bilateral Resistance Lv 2 Manual Therapy Treatment Soft Tissue Mobilization Cervical Spine Body Location paraspinals, UT, Levator Mobilization Type Strumming,Sustained Pressure, Trigger Point Release Intensity/Depth Moderate Body Position Sitting Lumbar Body Location B Lumbar paraspinals Mobilization Type Strumming,Sustained Pressure Intensity/Depth Moderate Body Position Sitting Manual Techniques PROM Type PROM Comments pain free range PT-OP-T Assessment and Plan Start: 10/19/23 11:59 Freq: Status: Active Protocol: Document 10/23/23 13:41 SW (Rec: 10/23/23 14:31 SW [id number]) Physical Therapy Assessment Goals Three Impairment Cervical rotation limited to 50? R and 37? L Longterm Goal (LTG) Right cervical rotation to improve to at least 50? in order to improve pt's ability to check for traffic while attempting to merge while driving LTG Duration 01/17/24 Two Impairment Pt ambulates 284' during Two Minute Walk Test Longterm Goal (LTG) Pt to demonstrate increased activity tolerance by completing a full 6MWT without a rest break, and demonstrates ability to ambulate >700' during the test LTG Duration 01/17/24 One Impairment Pt does not have an appropriate home exercise program Short Term Goal (STG) Pt to be independent and compliant with an appropriate HEP STG Duration 11/19/23 Assessment Summary Assessment Tx focus on STM for lumbar/ cervical spine to address pain and tissue tension. Initiated hip flexion strength in seated this session to carryover to patient car mobility goal, issued HEP, verbal cues for compensations in back during exercise. Physical Therapy Plan Frequency and Duration Frequency of Treatment 2x/Week Plan of Care Start Date 10/19/23 Plan of Care End Date 01/17/24 Next Visit Focus/Plan Next Note Type Treatment Note Next Visit Plan Hip strengthening, activity tolerance, Lumbar/Cervical STM and joint mobs.
--- NOTE | 2023-11-01 14:30 | PT.OTN ---
Current Diagnoses Chronic pain syndrome (11/01/23) Spondylosis without myelopathy or radiculopathy, cervical region (11/01/23) Other intervertebral disc disorders, lumbar region (11/01/23) Other abnormalities of gait and mobility (11/01/23) Headache, unspecified (11/01/23) Physical Therapy Treatment Note PT-OP-A Visit Information Start: 10/19/23 11:59 Freq: Status: Active Protocol: Document 11/01/23 13:45 DCW (Rec: 11/01/23 14:29 DCW [id number]) Out-Patient Physical Therapy Visit Information Visit Information Visit Type Treatment Note Visit Start Time 13:45 Visit Stop Time 14:25 Visit Number 3 Number of ROUTING CLERK Visits 0 PT-OP-B Current Condition Start: 10/19/23 11:59 Freq: Status: Active Protocol: Document 10/19/23 10:40 DCW (Rec: 10/19/23 14:26 DCW [id number]) Current Condition History of Current Condition Onset Date Multi-year history Current Complaints Low back pain, neck pain, decreased activity tolerance, decreased mobility History of Current Condition Pt is a 58 year old male very well known to this clinic presenting with a highly complex medical history. Pt notes severe long-term cervical and low back pain. Pt does have a history of prior cervical fusion and is hoping for a lumbar fusion within the next 2-3 months. Pt was previously being seen at this clinic for the same complaints , but was discharged due to change in medical status for unrelated surgery. Pt underwent skin removal surgery 08/27/23 after losing a significant amount of weight. Unfortunately, the day following surgery, was exiting his vehicle with his fiancee, and had what appeared to be a siezure and LOC, EMT responded and pt was found to have a BP of 50/35, rushed to [facility] and found to have internal bleeding in his abdomen. Was stabilized and discharged again on . Feeling much better now, and after skin removal ( reports 20 pounds of skin and 7 pounds of fluid was removed) is ambulating with an improved posture and low back pain was feeling much better for ~7 weeks, however has recently been worsening again. Has also recently gotten new orthotic shoes, which both have a 1/4 inch lateral wedge to prevent eversion, which has been helpful in limiting what was previously a problem of nearly constantly rolling his ankles. Treatment Goals Patient/Caregiver Goals Improve pain level in low back and hip, improve ability to get into/out of vehicle, turn head more to look at merging traffic while driving, walk longer distances without pain PT-OP-C Subjective Start: 10/19/23 11:59 Freq: Status: Active Protocol: Document 11/01/23 13:45 DCW (Rec: 11/01/23 14:29 DCW [place] [id number]) OP-PT Subjective Patient Comments Patient Comments Pt's legs have been giving out a lot more often. PT-OP-E Functional Tests Start: 10/19/23 11:59 Freq: Status: Active Protocol: Document 10/19/23 10:40 DCW (Rec: 10/19/23 16:12 DCW [place] [id number]) Functional Tests 2 Minute Walk Test Distance 284' Device Used None Comments 2.37 ft/sec PT-OP-F Manual Assessment Start: 10/19/23 11:59 Freq: Status: Active Protocol: Document 10/19/23 10:40 DCW (Rec: 10/19/23 16:12 DCW [id number]) Manual Assessments Soft Tissue Assessment Soft Tissue Mobility Assessment Moderate-severe tone B suboccipitals, upper traps, cervical paraspinals, lumbar paraspinals, QL, glutes PT-OP-G Mobility & Gait Start: 10/19/23 11:59 Freq: Status: Active Protocol: Document 10/19/23 10:40 DCW (Rec: 10/19/23 16:12 DCW [id number]) OP Gait Assessment Gait Deviations General Gait Pattern Antalgic,Decreased Stride Length,Decreased Feet Clearance,Flexed Trunk,Wide Based Gait Factors Limiting Gait Function Factors Limiting Gait Function Abnormal Tonal Influences, Decreased Activity Tolerance, Decreased Strength,Pain PT-OP-J Posture/Palpation/Skin Start: 10/19/23 11:59 Freq: Status: Active Protocol: Document 10/19/23 10:40 DCW (Rec: 10/19/23 16:12 DCW [id number]) Posture Evaluation Position Standing Evaluation View Lateral Head/C-Spine Posture C-Spine Flattened,Forward Head T-Spine Posture Flattened L-Spine Posture Flattened,Decreased Lordosis Hip Posture (L) Flexed,(R) Flexed Knee Posture (L) Genu Varus,(R) Genu Varus, (L) Ext. Tibial Torsion,(R) Ext. Tibial Torsion Ankle/Foot Posture (L) Pronated,(R) Pronated,(L) Calcaneal Eversion,(R) Calcaneal Eversion PT-OP-K Range of Motion Start: 10/19/23 11:59 Freq: Status: Active Protocol: Document 10/19/23 10:40 DCW (Rec: 10/19/23 16:12 DCW [id number]) Cervical Spine Range of Motion Cervical Spine Active Degrees Testing Position Sitting Flexion 25 Extension 35 Rotation Left 37 Rotation Right 50 Lateral Flexion Left 25 Lateral Flexion Right 15 Lumbar Spine Range of Motion Lumbar Spine Active Degrees Testing Position Standing Flexion 20 Extension 5 PT-OP-M Strength Start: 10/19/23 11:59 Freq: Status: Active Protocol: Document 10/19/23 10:40 DCW (Rec: 10/19/23 16:12 DCW [id number]) Hip Strength Hip Manual Muscle Testing Right Flexion (L2) 4+ Good+ Abduction 5 Normal Adduction 4+ Good+ Left Flexion (L2) 4- Good- Abduction 5 Normal Adduction 4+ Good+ PT-OP-Q Treatments Start: 10/19/23 11:59 Freq: Status: Active Protocol: Document 11/01/23 13:45 DCW (Rec: 11/01/23 14:29 DCW [id number]) Manual Therapy Treatment Soft Tissue Mobilization Cervical Spine Body Location paraspinals, UT, Levator Mobilization Type Strumming,Sustained Pressure, Trigger Point Release Intensity/Depth Moderate Body Position Sitting Lumbar Body Location B Lumbar paraspinals Mobilization Type Strumming,Sustained Pressure Intensity/Depth Moderate Body Position Sitting PT-OP-T Assessment and Plan Start: 10/19/23 11:59 Freq: Status: Active Protocol: Document 11/01/23 13:45 DCW (Rec: 11/01/23 14:29 DCW [id number]) Physical Therapy Assessment Impairments Impairments Activity Tolerance,Balance, Edema,Functional Activities, Functional Mobility,Gait, Integument,Pain,Posture,ROM, Sensation,Soft Tissue Mobility ,Strength,Tone Goals Three Impairment Cervical rotation limited to 50? R and 37? L [facility] Goal (LTG) Right cervical rotation to improve to at least 50? in order to improve pt's ability to check for traffic while attempting to merge while driving LTG Duration 01/17/24 Two Impairment Pt ambulates 284' during Two Minute Walk Test [facility] Goal (LTG) Pt to demonstrate increased activity tolerance by completing a full 6MWT without a rest break, and demonstrates ability to ambulate >700' during the test LTG Duration 01/17/24 One Impairment Pt does not have an appropriate home exercise program Short Term Goal (STG) Pt to be independent and compliant with an appropriate HEP STG Duration 11/19/23 Assessment Summary Assessment Pt very stiff and having difficulty with mobility upon entering today, spent today focusing on tone management and improving lumbar mobility. Posture significantly improved following treatment. Continue to work toward reducing tone, improving activity tolerance, and increasing strength. Physical Therapy Plan Frequency and Duration Frequency of Treatment 2x/Week Plan of Care Start Date 10/19/23 Plan of Care End Date 01/17/24 Next Visit Focus/Plan Next Note Type Treatment Note Next Visit Plan Hip strengthening, activity tolerance, Lumbar/Cervical STM and joint mobs.
--- NOTE | 2023-11-13 14:29 | PT.OTN ---
Current Diagnoses Chronic pain syndrome (11/13/23) Spondylosis without myelopathy or radiculopathy, cervical region (11/13/23) Other intervertebral disc disorders, lumbar region (11/13/23) Other abnormalities of gait and mobility (11/13/23) Headache, unspecified (11/13/23) Physical Therapy Treatment Note PT-OP-A Visit Information Start: 10/19/23 11:59 Freq: Status: Active Protocol: Document 11/13/23 13:45 DCW (Rec: 11/13/23 14:29 DCW [id number]) Out-Patient Physical Therapy Visit Information Visit Information Visit Type Treatment Note Visit Start Time 13:45 Visit Stop Time 14:30 Visit Number 4 Number of DIMETHYLANILINE SULFATOR OPERATOR Visits 0 Evaluation Information Evaluation Date 10/19/23 PT-OP-B Current Condition Start: 10/19/23 11:59 Freq: Status: Active Protocol: Document 10/19/23 10:40 DCW (Rec: 10/19/23 14:26 DCW [id number]) Current Condition History of Current Condition Onset Date Multi-year history Current Complaints Low back pain, neck pain, decreased activity tolerance, decreased mobility History of Current Condition Pt is a 58 year old male very well known to this clinic presenting with a highly complex medical history. Pt notes severe long-term cervical and low back pain. Pt does have a history of prior cervical fusion and is hoping for a lumbar fusion within the next 2-3 months. Pt was previously being seen at this clinic for the same complaints , but was discharged due to change in medical status for unrelated surgery. Pt underwent skin removal surgery 08/27/23 after losing a significant amount of weight. Unfortunately, the day following surgery, was exiting his vehicle with his fiancee, and had what appeared to be a siezure and LOC, EMT responded and pt was found to have a BP of 50/35, rushed to [facility] and found to have internal bleeding in his abdomen. Was stabilized and discharged again on . Feeling much better now, and after skin removal ( reports 20 pounds of skin and 7 pounds of fluid was removed) is ambulating with an improved posture and low back pain was feeling much better for ~7 weeks, however has recently been worsening again. Has also recently gotten new orthotic shoes, which both have a 1/4 inch lateral wedge to prevent eversion, which has been helpful in limiting what was previously a problem of nearly constantly rolling his ankles. Treatment Goals Patient/Caregiver Goals Improve pain level in low back and hip, improve ability to get into/out of vehicle, turn head more to look at merging traffic while driving, walk longer distances without pain PT-OP-C Subjective Start: 10/19/23 11:59 Freq: Status: Active Protocol: Document 11/13/23 13:45 DCW (Rec: 11/13/23 14:29 DCW [id number]) OP-PT Subjective Patient Comments Patient Comments Pt reports he is having a bit more pain than usual PT-OP-E Functional Tests Start: 10/19/23 11:59 Freq: Status: Active Protocol: Document 10/19/23 10:40 DCW (Rec: 10/19/23 16:12 DCW [place] [id number]) Functional Tests 2 Minute Walk Test Distance 284' Device Used None Comments 2.37 ft/sec PT-OP-F Manual Assessment Start: 10/19/23 11:59 Freq: Status: Active Protocol: Document 10/19/23 10:40 DCW (Rec: 10/19/23 16:12 DCW [id number]) Manual Assessments Soft Tissue Assessment Soft Tissue Mobility Assessment Moderate-severe tone B suboccipitals, upper traps, cervical paraspinals, lumbar paraspinals, QL, glutes PT-OP-G Mobility & Gait Start: 10/19/23 11:59 Freq: Status: Active Protocol: Document 10/19/23 10:40 DCW (Rec: 10/19/23 16:12 DCW [id number]) OP Gait Assessment Gait Deviations General Gait Pattern Antalgic,Decreased Stride Length,Decreased Feet Clearance,Flexed Trunk,Wide Based Gait Factors Limiting Gait Function Factors Limiting Gait Function Abnormal Tonal Influences, Decreased Activity Tolerance, Decreased Strength,Pain PT-OP-J Posture/Palpation/Skin Start: 10/19/23 11:59 Freq: Status: Active Protocol: Document 10/19/23 10:40 DCW (Rec: 10/19/23 16:12 DCW [id number]) Posture Evaluation Position Standing Evaluation View Lateral Head/C-Spine Posture C-Spine Flattened,Forward Head T-Spine Posture Flattened L-Spine Posture Flattened,Decreased Lordosis Hip Posture (L) Flexed,(R) Flexed Knee Posture (L) Genu Varus,(R) Genu Varus, (L) Ext. Tibial Torsion,(R) Ext. Tibial Torsion Ankle/Foot Posture (L) Pronated,(R) Pronated,(L) Calcaneal Eversion,(R) Calcaneal Eversion PT-OP-K Range of Motion Start: 10/19/23 11:59 Freq: Status: Active Protocol: Document 10/19/23 10:40 DCW (Rec: 10/19/23 16:12 DCW [id number]) Cervical Spine Range of Motion Cervical Spine Active Degrees Testing Position Sitting Flexion 25 Extension 35 Rotation Left 37 Rotation Right 50 Lateral Flexion Left 25 Lateral Flexion Right 15 Lumbar Spine Range of Motion Lumbar Spine Active Degrees Testing Position Standing Flexion 20 Extension 5 PT-OP-M Strength Start: 10/19/23 11:59 Freq: Status: Active Protocol: Document 10/19/23 10:40 DCW (Rec: 10/19/23 16:12 DCW [id number]) Hip Strength Hip Manual Muscle Testing Right Flexion (L2) 4+ Good+ Abduction 5 Normal Adduction 4+ Good+ Left Flexion (L2) 4- Good- Abduction 5 Normal Adduction 4+ Good+ PT-OP-Q Treatments Start: 10/19/23 11:59 Freq: Status: Active Protocol: Document 11/13/23 13:45 DCW (Rec: 11/13/23 14:29 DCW [id number]) Manual Therapy Treatment Soft Tissue Mobilization Cervical Spine Body Location paraspinals, UT, Levator Mobilization Type Strumming,Sustained Pressure, Trigger Point Release Intensity/Depth Moderate Body Position Sitting Lumbar Body Location B Lumbar paraspinals Mobilization Type Strumming,Sustained Pressure Intensity/Depth Moderate Body Position Sitting PT-OP-T Assessment and Plan Start: 10/19/23 11:59 Freq: Status: Active Protocol: Document 11/13/23 13:45 DCW (Rec: 11/13/23 14:29 DCW [id number]) Physical Therapy Assessment Impairments Impairments Activity Tolerance,Balance, Edema,Functional Activities, Functional Mobility,Gait, Integument,Pain,Posture,ROM, Sensation,Soft Tissue Mobility ,Strength,Tone Goals Three Impairment Cervical rotation limited to 50? R and 37? L Ingot Buggy Operator Goal (LTG) Right cervical rotation to improve to at least 50? in order to improve pt's ability to check for traffic while attempting to merge while driving LTG Duration 01/17/24 Two Impairment Pt ambulates 284' during Two Minute Walk Test Detention Goal (LTG) Pt to demonstrate increased activity tolerance by completing a full 6MWT without a rest break, and demonstrates ability to ambulate >700' during the test LTG Duration 01/17/24 One Impairment Pt does not have an appropriate home exercise program Short Term Goal (STG) Pt to be independent and compliant with an appropriate HEP STG Duration 11/19/23 Assessment Summary Assessment Pt once again came in today complaining of increased pain recently, focus on STM and muscle tone helped pt gait quality upon leaving clinic today. Physical Therapy Plan Frequency and Duration Frequency of Treatment 2x/Week Plan of Care Start Date 10/19/23 Plan of Care End Date 01/17/24 Next Visit Focus/Plan Next Note Type Treatment Note Next Visit Plan Hip strengthening, activity tolerance, Lumbar/Cervical STM and joint mobs.
--- NOTE | 2023-11-19 14:28 | PT.OTN ---
Current Diagnoses Chronic pain syndrome (11/19/23) Spondylosis without myelopathy or radiculopathy, cervical region (11/19/23) Other intervertebral disc disorders, lumbar region (11/19/23) Other abnormalities of gait and mobility (11/19/23) Headache, unspecified (11/19/23) Physical Therapy Treatment Note PT-OP-A Visit Information Start: 10/19/23 11:59 Freq: Status: Active Protocol: Document 11/19/23 13:45 DCW (Rec: 11/19/23 14:28 DCW [id number]) Out-Patient Physical Therapy Visit Information Visit Information Visit Type Treatment Note Visit Start Time 13:45 Visit Stop Time 14:30 Visit Number 5 Number of DRAWER IN Visits 0 Evaluation Information Evaluation Date 10/19/23 PT-OP-B Current Condition Start: 10/19/23 11:59 Freq: Status: Active Protocol: Document 10/19/23 10:40 DCW (Rec: 10/19/23 14:26 DCW [id number]) Current Condition History of Current Condition Onset Date Multi-year history Current Complaints Low back pain, neck pain, decreased activity tolerance, decreased mobility History of Current Condition Pt is a 58 year old male very well known to this clinic presenting with a highly complex medical history. Pt notes severe long-term cervical and low back pain. Pt does have a history of prior cervical fusion and is hoping for a lumbar fusion within the next 2-3 months. Pt was previously being seen at this clinic for the same complaints , but was discharged due to change in medical status for unrelated surgery. Pt underwent skin removal surgery 08/27/23 after losing a significant amount of weight. Unfortunately, the day following surgery, was exiting his vehicle with his fiancee, and had what appeared to be a siezure and LOC, EMT responded and pt was found to have a BP of 50/35, rushed to [facility] and found to have internal bleeding in his abdomen. Was stabilized and discharged again on . Feeling much better now, and after skin removal ( reports 20 pounds of skin and 7 pounds of fluid was removed) is ambulating with an improved posture and low back pain was feeling much better for ~7 weeks, however has recently been worsening again. Has also recently gotten new orthotic shoes, which both have a 1/4 inch lateral wedge to prevent eversion, which has been helpful in limiting what was previously a problem of nearly constantly rolling his ankles. Treatment Goals Patient/Caregiver Goals Improve pain level in low back and hip, improve ability to get into/out of vehicle, turn head more to look at merging traffic while driving, walk longer distances without pain PT-OP-C Subjective Start: 10/19/23 11:59 Freq: Status: Active Protocol: Document 11/19/23 13:45 DCW (Rec: 11/19/23 14:28 DCW [id number]) OP-PT Subjective Patient Comments Patient Comments Pt reports his low back is very sore at the moment. PT-OP-E Functional Tests Start: 10/19/23 11:59 Freq: Status: Active Protocol: Document 10/19/23 10:40 DCW (Rec: 10/19/23 16:12 DCW [id number]) Functional Tests 2 Minute Walk Test Distance 284' Device Used None Comments 2.37 ft/sec PT-OP-F Manual Assessment Start: 10/19/23 11:59 Freq: Status: Active Protocol: Document 10/19/23 10:40 DCW (Rec: 10/19/23 16:12 DCW [id number]) Manual Assessments Soft Tissue Assessment Soft Tissue Mobility Assessment Moderate-severe tone B suboccipitals, upper traps, cervical paraspinals, lumbar paraspinals, QL, glutes PT-OP-G Mobility & Gait Start: 10/19/23 11:59 Freq: Status: Active Protocol: Document 10/19/23 10:40 DCW (Rec: 10/19/23 16:12 DCW [id number]) OP Gait Assessment Gait Deviations General Gait Pattern Antalgic,Decreased Stride Length,Decreased Feet Clearance,Flexed Trunk,Wide Based Gait Factors Limiting Gait Function Factors Limiting Gait Function Abnormal Tonal Influences, Decreased Activity Tolerance, Decreased Strength,Pain PT-OP-J Posture/Palpation/Skin Start: 10/19/23 11:59 Freq: Status: Active Protocol: Document 10/19/23 10:40 DCW (Rec: 10/19/23 16:12 DCW [id number]) Posture Evaluation Position Standing Evaluation View Lateral Head/C-Spine Posture C-Spine Flattened,Forward Head T-Spine Posture Flattened L-Spine Posture Flattened,Decreased Lordosis Hip Posture (L) Flexed,(R) Flexed Knee Posture (L) Genu Varus,(R) Genu Varus, (L) Ext. Tibial Torsion,(R) Ext. Tibial Torsion Ankle/Foot Posture (L) Pronated,(R) Pronated,(L) Calcaneal Eversion,(R) Calcaneal Eversion PT-OP-K Range of Motion Start: 10/19/23 11:59 Freq: Status: Active Protocol: Document 10/19/23 10:40 DCW (Rec: 10/19/23 16:12 DCW [id number]) Cervical Spine Range of Motion Cervical Spine Active Degrees Testing Position Sitting Flexion 25 Extension 35 Rotation Left 37 Rotation Right 50 Lateral Flexion Left 25 Lateral Flexion Right 15 Lumbar Spine Range of Motion Lumbar Spine Active Degrees Testing Position Standing Flexion 20 Extension 5 PT-OP-M Strength Start: 10/19/23 11:59 Freq: Status: Active Protocol: Document 10/19/23 10:40 DCW (Rec: 10/19/23 16:12 DCW [id number]) Hip Strength Hip Manual Muscle Testing Right Flexion (L2) 4+ Good+ Abduction 5 Normal Adduction 4+ Good+ Left Flexion (L2) 4- Good- Abduction 5 Normal Adduction 4+ Good+ PT-OP-Q Treatments Start: 10/19/23 11:59 Freq: Status: Active Protocol: Document 11/19/23 13:45 DCW (Rec: 11/19/23 14:28 DCW [id number]) Manual Therapy Treatment Soft Tissue Mobilization Cervical Spine Body Location paraspinals, UT, Levator Mobilization Type Strumming,Sustained Pressure, Trigger Point Release Intensity/Depth Moderate Body Position Sitting Lumbar Body Location B Lumbar paraspinals Mobilization Type Strumming,Sustained Pressure Intensity/Depth Moderate Body Position Sitting PT-OP-T Assessment and Plan Start: 10/19/23 11:59 Freq: Status: Active Protocol: Document 11/19/23 13:45 DCW (Rec: 11/19/23 14:28 DCW [id number]) Physical Therapy Assessment Impairments Impairments Activity Tolerance,Balance, Edema,Functional Activities, Functional Mobility,Gait, Integument,Pain,Posture,ROM, Sensation,Soft Tissue Mobility ,Strength,Tone Goals Three Impairment Cervical rotation limited to 50? R and 37? L Physicist [place] Goal (LTG) Right cervical rotation to improve to at least 50? in order to improve pt's ability to check for traffic while attempting to merge while driving LTG Duration 01/17/24 Two Impairment Pt ambulates 284' during Two Minute Walk Test Physicist [place] Goal (LTG) Pt to demonstrate increased activity tolerance by completing a full 6MWT without a rest break, and demonstrates ability to ambulate >700' during the test LTG Duration 01/17/24 One Impairment Pt does not have an appropriate home exercise program Short Term Goal (STG) Pt to be independent and compliant with an appropriate HEP STG Duration 11/19/23 Assessment Summary Assessment Pt tone improved today vs last few appointments. Pt will likely be discharging from skilled PT within the next month due to upcoming thoracic surgery. Physical Therapy Plan Frequency and Duration Frequency of Treatment 2x/Week Plan of Care Start Date 10/19/23 Plan of Care End Date 01/17/24 Next Visit Focus/Plan Next Note Type Treatment Note Next Visit Plan Hip strengthening, activity tolerance, Lumbar/Cervical STM and joint mobs.
--- NOTE | 2023-11-21 15:21 | PT.OTN ---
Current Diagnoses Chronic pain syndrome (11/21/23) Spondylosis without myelopathy or radiculopathy, cervical region (11/21/23) Other intervertebral disc disorders, lumbar region (11/21/23) Other abnormalities of gait and mobility (11/21/23) Headache, unspecified (11/21/23) Physical Therapy Treatment Note PT-OP-A Visit Information Start: 10/19/23 11:59 Freq: Status: Active Protocol: Document 11/21/23 14:33 DCW (Rec: 11/21/23 15:21 DCW [id number]) Out-Patient Physical Therapy Visit Information Visit Information Visit Type Treatment Note Visit Start Time 14:33 Visit Stop Time 15:15 Visit Number 6 Number of SEISMIC COMPUTER Visits 0 Evaluation Information Evaluation Date 10/19/23 PT-OP-B Current Condition Start: 10/19/23 11:59 Freq: Status: Active Protocol: Document 10/19/23 10:40 DCW (Rec: 10/19/23 14:26 DCW [id number]) Current Condition History of Current Condition Onset Date Multi-year history Current Complaints Low back pain, neck pain, decreased activity tolerance, decreased mobility History of Current Condition Pt is a 58 year old male very well known to this clinic presenting with a highly complex medical history. Pt notes severe long-term cervical and low back pain. Pt does have a history of prior cervical fusion and is hoping for a lumbar fusion within the next 2-3 months. Pt was previously being seen at this clinic for the same complaints , but was discharged due to change in medical status for unrelated surgery. Pt underwent skin removal surgery 08/27/23 after losing a significant amount of weight. Unfortunately, the day following surgery, was exiting his vehicle with his fiancee, and had what appeared to be a siezure and LOC, EMT responded and pt was found to have a BP of 50/35, rushed to [facility] and found to have internal bleeding in his abdomen. Was stabilized and discharged again on . Feeling much better now, and after skin removal ( reports 20 pounds of skin and 7 pounds of fluid was removed) is ambulating with an improved posture and low back pain was feeling much better for ~7 weeks, however has recently been worsening again. Has also recently gotten new orthotic shoes, which both have a 1/4 inch lateral wedge to prevent eversion, which has been helpful in limiting what was previously a problem of nearly constantly rolling his ankles. Treatment Goals Patient/Caregiver Goals Improve pain level in low back and hip, improve ability to get into/out of vehicle, turn head more to look at merging traffic while driving, walk longer distances without pain PT-OP-C Subjective Start: 10/19/23 11:59 Freq: Status: Active Protocol: Document 11/21/23 14:33 DCW (Rec: 11/21/23 15:21 DCW [id number]) OP-PT Subjective Patient Comments Patient Comments Pt feeling pretty good today, better than last visit, walking with improved posture. PT-OP-E Functional Tests Start: 10/19/23 11:59 Freq: Status: Active Protocol: Document 10/19/23 10:40 DCW (Rec: 10/19/23 16:12 DCW [id number]) Functional Tests 2 Minute Walk Test Distance 284' Device Used None Comments 2.37 ft/sec PT-OP-F Manual Assessment Start: 10/19/23 11:59 Freq: Status: Active Protocol: Document 10/19/23 10:40 DCW (Rec: 10/19/23 16:12 DCW [id number]) Manual Assessments Soft Tissue Assessment Soft Tissue Mobility Assessment Moderate-severe tone B suboccipitals, upper traps, cervical paraspinals, lumbar paraspinals, QL, glutes PT-OP-G Mobility & Gait Start: 10/19/23 11:59 Freq: Status: Active Protocol: Document 10/19/23 10:40 DCW (Rec: 10/19/23 16:12 DCW [id number]) OP Gait Assessment Gait Deviations General Gait Pattern Antalgic,Decreased Stride Length,Decreased Feet Clearance,Flexed Trunk,Wide Based Gait Factors Limiting Gait Function Factors Limiting Gait Function Abnormal Tonal Influences, Decreased Activity Tolerance, Decreased Strength,Pain PT-OP-J Posture/Palpation/Skin Start: 10/19/23 11:59 Freq: Status: Active Protocol: Document 10/19/23 10:40 DCW (Rec: 10/19/23 16:12 DCW [id number]) Posture Evaluation Position Standing Evaluation View Lateral Head/C-Spine Posture C-Spine Flattened,Forward Head T-Spine Posture Flattened L-Spine Posture Flattened,Decreased Lordosis Hip Posture (L) Flexed,(R) Flexed Knee Posture (L) Genu Varus,(R) Genu Varus, (L) Ext. Tibial Torsion,(R) Ext. Tibial Torsion Ankle/Foot Posture (L) Pronated,(R) Pronated,(L) Calcaneal Eversion,(R) Calcaneal Eversion PT-OP-K Range of Motion Start: 10/19/23 11:59 Freq: Status: Active Protocol: Document 10/19/23 10:40 DCW (Rec: 10/19/23 16:12 DCW [id number]) Cervical Spine Range of Motion Cervical Spine Active Degrees Testing Position Sitting Flexion 25 Extension 35 Rotation Left 37 Rotation Right 50 Lateral Flexion Left 25 Lateral Flexion Right 15 Lumbar Spine Range of Motion Lumbar Spine Active Degrees Testing Position Standing Flexion 20 Extension 5 PT-OP-M Strength Start: 10/19/23 11:59 Freq: Status: Active Protocol: Document 10/19/23 10:40 DCW (Rec: 10/19/23 16:12 DCW [id number]) Hip Strength Hip Manual Muscle Testing Right Flexion (L2) 4+ Good+ Abduction 5 Normal Adduction 4+ Good+ Left Flexion (L2) 4- Good- Abduction 5 Normal Adduction 4+ Good+ PT-OP-Q Treatments Start: 10/19/23 11:59 Freq: Status: Active Protocol: Document 11/21/23 14:33 DCW (Rec: 11/21/23 15:21 DCW [id number]) Manual Therapy Treatment Soft Tissue Mobilization Cervical Spine Body Location paraspinals, UT, Levator Mobilization Type Strumming,Sustained Pressure, Trigger Point Release Intensity/Depth Moderate Body Position Sitting Lumbar Body Location B Lumbar paraspinals Mobilization Type Strumming,Sustained Pressure Intensity/Depth Moderate Body Position Sitting PT-OP-T Assessment and Plan Start: 10/19/23 11:59 Freq: Status: Active Protocol: Document 11/21/23 14:33 DCW (Rec: 11/21/23 15:21 DCW [id number]) Physical Therapy Assessment Impairments Impairments Activity Tolerance,Balance, Edema,Functional Activities, Functional Mobility,Gait, Integument,Pain,Posture,ROM, Sensation,Soft Tissue Mobility ,Strength,Tone Goals Three Impairment Cervical rotation limited to 50? R and 37? L Sheet Rock Applicator Goal (LTG) Right cervical rotation to improve to at least 50? in order to improve pt's ability to check for traffic while attempting to merge while driving LTG Duration 01/17/24 Two Impairment Pt ambulates 284' during Two Minute Walk Test Sheet Rock Applicator Goal (LTG) Pt to demonstrate increased activity tolerance by completing a full 6MWT without a rest break, and demonstrates ability to ambulate >700' during the test LTG Duration 01/17/24 One Impairment Pt does not have an appropriate home exercise program Short Term Goal (STG) Pt to be independent and compliant with an appropriate HEP STG Duration 11/19/23 Assessment Summary Assessment Improvement with tone and pain today, moving much better today, not currently using AD, displays improved gait. Physical Therapy Plan Frequency and Duration Frequency of Treatment 2x/Week Plan of Care Start Date 10/19/23 Plan of Care End Date 01/17/24 Next Visit Focus/Plan Next Note Type Treatment Note Next Visit Plan Hip strengthening, activity tolerance, Lumbar/Cervical STM and joint mobs.
--- NOTE | 2023-11-26 14:27 | PT.OTN ---
Current Diagnoses Chronic pain syndrome (11/26/23) Spondylosis without myelopathy or radiculopathy, cervical region (11/26/23) Other intervertebral disc disorders, lumbar region (11/26/23) Other abnormalities of gait and mobility (11/26/23) Headache, unspecified (11/26/23) Physical Therapy Treatment Note PT-OP-A Visit Information Start: 10/19/23 11:59 Freq: Status: Active Protocol: Document 11/26/23 13:45 DCW (Rec: 11/26/23 14:27 DCW [id number]) Out-Patient Physical Therapy Visit Information Visit Information Visit Type Treatment Note Visit Start Time 13:45 Visit Stop Time 14:30 Visit Number 7 Number of FARM MACHINERY MECHANIC Visits 0 Evaluation Information Evaluation Date 10/19/23 PT-OP-B Current Condition Start: 10/19/23 11:59 Freq: Status: Active Protocol: Document 10/19/23 10:40 DCW (Rec: 10/19/23 14:26 DCW [id number]) Current Condition History of Current Condition Onset Date Multi-year history Current Complaints Low back pain, neck pain, decreased activity tolerance, decreased mobility History of Current Condition Pt is a 58 year old male very well known to this clinic presenting with a highly complex medical history. Pt notes severe long-term cervical and low back pain. Pt does have a history of prior cervical fusion and is hoping for a lumbar fusion within the next 2-3 months. Pt was previously being seen at this clinic for the same complaints , but was discharged due to change in medical status for unrelated surgery. Pt underwent skin removal surgery 08/27/23 after losing a significant amount of weight. Unfortunately, the day following surgery, was exiting his vehicle with his fiancee, and had what appeared to be a siezure and LOC, EMT responded and pt was found to have a BP of 50/35, rushed to [facility] and found to have internal bleeding in his abdomen. Was stabilized and discharged again on . Feeling much better now, and after skin removal ( reports 20 pounds of skin and 7 pounds of fluid was removed) is ambulating with an improved posture and low back pain was feeling much better for ~7 weeks, however has recently been worsening again. Has also recently gotten new orthotic shoes, which both have a 1/4 inch lateral wedge to prevent eversion, which has been helpful in limiting what was previously a problem of nearly constantly rolling his ankles. Treatment Goals Patient/Caregiver Goals Improve pain level in low back and hip, improve ability to get into/out of vehicle, turn head more to look at merging traffic while driving, walk longer distances without pain PT-OP-C Subjective Start: 10/19/23 11:59 Freq: Status: Active Protocol: Document 11/26/23 13:45 DCW (Rec: 11/26/23 14:27 DCW [id number]) OP-PT Subjective Patient Comments Patient Comments I feel like I'm walking better, but the proprioception feels like its getting worse. PT-OP-E Functional Tests Start: 10/19/23 11:59 Freq: Status: Active Protocol: Document 10/19/23 10:40 DCW (Rec: 10/19/23 16:12 DCW [id number]) Functional Tests 2 Minute Walk Test Distance 284' Device Used None Comments 2.37 ft/sec PT-OP-F Manual Assessment Start: 10/19/23 11:59 Freq: Status: Active Protocol: Document 10/19/23 10:40 DCW (Rec: 10/19/23 16:12 DCW [id number]) Manual Assessments Soft Tissue Assessment Soft Tissue Mobility Assessment Moderate-severe tone B suboccipitals, upper traps, cervical paraspinals, lumbar paraspinals, QL, glutes PT-OP-G Mobility & Gait Start: 10/19/23 11:59 Freq: Status: Active Protocol: Document 10/19/23 10:40 DCW (Rec: 10/19/23 16:12 DCW [id number]) OP Gait Assessment Gait Deviations General Gait Pattern Antalgic,Decreased Stride Length,Decreased Feet Clearance,Flexed Trunk,Wide Based Gait Factors Limiting Gait Function Factors Limiting Gait Function Abnormal Tonal Influences, Decreased Activity Tolerance, Decreased Strength,Pain PT-OP-J Posture/Palpation/Skin Start: 10/19/23 11:59 Freq: Status: Active Protocol: Document 10/19/23 10:40 DCW (Rec: 10/19/23 16:12 DCW [id number]) Posture Evaluation Position Standing Evaluation View Lateral Head/C-Spine Posture C-Spine Flattened,Forward Head T-Spine Posture Flattened L-Spine Posture Flattened,Decreased Lordosis Hip Posture (L) Flexed,(R) Flexed Knee Posture (L) Genu Varus,(R) Genu Varus, (L) Ext. Tibial Torsion,(R) Ext. Tibial Torsion Ankle/Foot Posture (L) Pronated,(R) Pronated,(L) Calcaneal Eversion,(R) Calcaneal Eversion PT-OP-K Range of Motion Start: 10/19/23 11:59 Freq: Status: Active Protocol: Document 10/19/23 10:40 DCW (Rec: 10/19/23 16:12 DCW [id number]) Cervical Spine Range of Motion Cervical Spine Active Degrees Testing Position Sitting Flexion 25 Extension 35 Rotation Left 37 Rotation Right 50 Lateral Flexion Left 25 Lateral Flexion Right 15 Lumbar Spine Range of Motion Lumbar Spine Active Degrees Testing Position Standing Flexion 20 Extension 5 PT-OP-M Strength Start: 10/19/23 11:59 Freq: Status: Active Protocol: Document 10/19/23 10:40 DCW (Rec: 10/19/23 16:12 DCW [id number]) Hip Strength Hip Manual Muscle Testing Right Flexion (L2) 4+ Good+ Abduction 5 Normal Adduction 4+ Good+ Left Flexion (L2) 4- Good- Abduction 5 Normal Adduction 4+ Good+ PT-OP-Q Treatments Start: 10/19/23 11:59 Freq: Status: Active Protocol: Document 11/26/23 13:45 DCW (Rec: 11/26/23 14:27 DCW [id number]) Manual Therapy Treatment Soft Tissue Mobilization Cervical Spine Body Location paraspinals, UT, Levator Mobilization Type Strumming,Sustained Pressure, Trigger Point Release Intensity/Depth Moderate Body Position Sitting Lumbar Body Location B Lumbar paraspinals Mobilization Type Strumming,Sustained Pressure Intensity/Depth Moderate Body Position Sitting PT-OP-T Assessment and Plan Start: 10/19/23 11:59 Freq: Status: Active Protocol: Document 11/26/23 13:45 DCW (Rec: 11/26/23 14:27 DCW [id number]) Physical Therapy Assessment Impairments Impairments Activity Tolerance,Balance, Edema,Functional Activities, Functional Mobility,Gait, Integument,Pain,Posture,ROM, Sensation,Soft Tissue Mobility ,Strength,Tone Goals Three Impairment Cervical rotation limited to 50? R and 37? L Drop Forger Helper Goal (LTG) Right cervical rotation to improve to at least 50? in order to improve pt's ability to check for traffic while attempting to merge while driving LTG Duration 01/17/24 Two Impairment Pt ambulates 284' during Two Minute Walk Test Drop Forger Helper Goal (LTG) Pt to demonstrate increased activity tolerance by completing a full 6MWT without a rest break, and demonstrates ability to ambulate >700' during the test LTG Duration 01/17/24 One Impairment Pt does not have an appropriate home exercise program Short Term Goal (STG) Pt to be independent and compliant with an appropriate HEP STG Duration 11/19/23 Assessment Summary Assessment Pt working toward getting thoracic and lumbar fusions and 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 Physical Therapy Plan Frequency and Duration Frequency of Treatment 2x/Week Plan of Care Start Date 10/19/23 Plan of Care End Date 01/17/24 Next Visit Focus/Plan Next Note Type Treatment Note Next Visit Plan Hip strengthening, activity tolerance, Lumbar/Cervical STM and joint mobs.
--- NOTE | 2023-12-04 11:14 | PT.OTN ---
Current Diagnoses Chronic pain syndrome (12/04/23) Spondylosis without myelopathy or radiculopathy, cervical region (12/04/23) Other intervertebral disc disorders, lumbar region (12/04/23) Other abnormalities of gait and mobility (12/04/23) Headache, unspecified (12/04/23) Physical Therapy Treatment Note PT-OP-A Visit Information Start: 10/19/23 11:59 Freq: Status: Active Protocol: Document 12/04/23 10:30 DCW (Rec: 12/04/23 11:14 DCW [id number]) Out-Patient Physical Therapy Visit Information Visit Information Visit Type Treatment Note Visit Start Time 10:30 Visit Stop Time 11:15 Visit Number 8 Number of RANGE MANAGER Visits 0 Evaluation Information Evaluation Date 10/19/23 PT-OP-B Current Condition Start: 10/19/23 11:59 Freq: Status: Active Protocol: Document 10/19/23 10:40 DCW (Rec: 10/19/23 14:26 DCW [id number]) Current Condition History of Current Condition Onset Date Multi-year history Current Complaints Low back pain, neck pain, decreased activity tolerance, decreased mobility History of Current Condition Pt is a 58 year old male very well known to this clinic presenting with a highly complex medical history. Pt notes severe long-term cervical and low back pain. Pt does have a history of prior cervical fusion and is hoping for a lumbar fusion within the next 2-3 months. Pt was previously being seen at this clinic for the same complaints , but was discharged due to change in medical status for unrelated surgery. Pt underwent skin removal surgery 08/27/23 after losing a significant amount of weight. Unfortunately, the day following surgery, was exiting his vehicle with his fiancee, and had what appeared to be a siezure and LOC, EMT responded and pt was found to have a BP of 50/35, rushed to [facility] and found to have internal bleeding in his abdomen. Was stabilized and discharged again on . Feeling much better now, and after skin removal ( reports 20 pounds of skin and 7 pounds of fluid was removed) is ambulating with an improved posture and low back pain was feeling much better for ~7 weeks, however has recently been worsening again. Has also recently gotten new orthotic shoes, which both have a 1/4 inch lateral wedge to prevent eversion, which has been helpful in limiting what was previously a problem of nearly constantly rolling his ankles. Treatment Goals Patient/Caregiver Goals Improve pain level in low back and hip, improve ability to get into/out of vehicle, turn head more to look at merging traffic while driving, walk longer distances without pain PT-OP-C Subjective Start: 10/19/23 11:59 Freq: Status: Active Protocol: Document 12/04/23 10:30 DCW (Rec: 12/04/23 11:14 DCW [id number]) OP-PT Subjective Patient Comments Patient Comments Pt reports he had a flare-up of his autoimmune disorder yesterday, had ot go up to [place] for a check-up. Feeling a bit better today. PT-OP-E Functional Tests Start: 10/19/23 11:59 Freq: Status: Active Protocol: Document 10/19/23 10:40 DCW (Rec: 10/19/23 16:12 DCW [id number]) Functional Tests 2 Minute Walk Test Distance 284' Device Used None Comments 2.37 ft/sec PT-OP-F Manual Assessment Start: 10/19/23 11:59 Freq: Status: Active Protocol: Document 10/19/23 10:40 DCW (Rec: 10/19/23 16:12 DCW [id number]) Manual Assessments Soft Tissue Assessment Soft Tissue Mobility Assessment Moderate-severe tone B suboccipitals, upper traps, cervical paraspinals, lumbar paraspinals, QL, glutes PT-OP-G Mobility & Gait Start: 10/19/23 11:59 Freq: Status: Active Protocol: Document 10/19/23 10:40 DCW (Rec: 10/19/23 16:12 DCW [id number]) OP Gait Assessment Gait Deviations General Gait Pattern Antalgic,Decreased Stride Length,Decreased Feet Clearance,Flexed Trunk,Wide Based Gait Factors Limiting Gait Function Factors Limiting Gait Function Abnormal Tonal Influences, Decreased Activity Tolerance, Decreased Strength,Pain PT-OP-J Posture/Palpation/Skin Start: 10/19/23 11:59 Freq: Status: Active Protocol: Document 10/19/23 10:40 DCW (Rec: 10/19/23 16:12 DCW [id number]) Posture Evaluation Position Standing Evaluation View Lateral Head/C-Spine Posture C-Spine Flattened,Forward Head T-Spine Posture Flattened L-Spine Posture Flattened,Decreased Lordosis Hip Posture (L) Flexed,(R) Flexed Knee Posture (L) Genu Varus,(R) Genu Varus, (L) Ext. Tibial Torsion,(R) Ext. Tibial Torsion Ankle/Foot Posture (L) Pronated,(R) Pronated,(L) Calcaneal Eversion,(R) Calcaneal Eversion PT-OP-K Range of Motion Start: 10/19/23 11:59 Freq: Status: Active Protocol: Document 10/19/23 10:40 DCW (Rec: 10/19/23 16:12 DCW [id number]) Cervical Spine Range of Motion Cervical Spine Active Degrees Testing Position Sitting Flexion 25 Extension 35 Rotation Left 37 Rotation Right 50 Lateral Flexion Left 25 Lateral Flexion Right 15 Lumbar Spine Range of Motion Lumbar Spine Active Degrees Testing Position Standing Flexion 20 Extension 5 PT-OP-M Strength Start: 10/19/23 11:59 Freq: Status: Active Protocol: Document 10/19/23 10:40 DCW (Rec: 10/19/23 16:12 DCW [id number]) Hip Strength Hip Manual Muscle Testing Right Flexion (L2) 4+ Good+ Abduction 5 Normal Adduction 4+ Good+ Left Flexion (L2) 4- Good- Abduction 5 Normal Adduction 4+ Good+ PT-OP-Q Treatments Start: 10/19/23 11:59 Freq: Status: Active Protocol: Document 12/04/23 10:30 DCW (Rec: 12/04/23 11:14 DCW [id number]) Manual Therapy Treatment Soft Tissue Mobilization Cervical Spine Body Location paraspinals, UT, Levator Mobilization Type Strumming,Sustained Pressure, Trigger Point Release Intensity/Depth Moderate Body Position Sitting Lumbar Body Location B Lumbar paraspinals Mobilization Type Strumming,Sustained Pressure Intensity/Depth Moderate Body Position Sitting PT-OP-T Assessment and Plan Start: 10/19/23 11:59 Freq: Status: Active Protocol: Document 12/04/23 10:30 DCW (Rec: 12/04/23 11:14 DCW [id number]) Physical Therapy Assessment Impairments Impairments Activity Tolerance,Balance, Edema,Functional Activities, Functional Mobility,Gait, Integument,Pain,Posture,ROM, Sensation,Soft Tissue Mobility ,Strength,Tone Goals Three Impairment Cervical rotation limited to 50? R and 37? L Longwall Shearer Operator Goal (LTG) Right cervical rotation to improve to at least 50? in order to improve pt's ability to check for traffic while attempting to merge while driving LTG Duration 01/17/24 Two Impairment Pt ambulates 284' during Two Minute Walk Test Longwall Shearer Operator Goal (LTG) Pt to demonstrate increased activity tolerance by completing a full 6MWT without a rest break, and demonstrates ability to ambulate >700' during the test LTG Duration 01/17/24 One Impairment Pt does not have an appropriate home exercise program Short Term Goal (STG) Pt to be independent and compliant with an appropriate HEP STG Duration 11/19/23 Assessment Summary Assessment Pt continues to display some improvements with posture and tone management, not having as much low back pain with standing and gait. Physical Therapy Plan Frequency and Duration Frequency of Treatment 2x/Week Plan of Care Start Date 10/19/23 Plan of Care End Date 01/17/24 Next Visit Focus/Plan Next Note Type Treatment Note Next Visit Plan Hip strengthening, activity tolerance, Lumbar/Cervical STM and joint mobs.
--- NOTE | 2023-12-07 14:27 | PT.OTN ---
Current Diagnoses Chronic pain syndrome (12/07/23) Spondylosis without myelopathy or radiculopathy, cervical region (12/07/23) Other intervertebral disc disorders, lumbar region (12/07/23) Other abnormalities of gait and mobility (12/07/23) Headache, unspecified (12/07/23) Physical Therapy Treatment Note PT-OP-A Visit Information Start: 10/19/23 11:59 Freq: Status: Active Protocol: Document 12/07/23 13:55 DCW (Rec: 12/07/23 14:27 DCW [id number]) Out-Patient Physical Therapy Visit Information Visit Information Visit Type Treatment Note Visit Note Arrived 10 minutes late Visit Start Time 13:55 Visit Stop Time 14:30 Visit Number 9 Number of TRACK INSPECTOR Visits 0 Evaluation Information Evaluation Date 10/19/23 PT-OP-B Current Condition Start: 10/19/23 11:59 Freq: Status: Active Protocol: Document 10/19/23 10:40 DCW (Rec: 10/19/23 14:26 DCW [id number]) Current Condition History of Current Condition Onset Date Multi-year history Current Complaints Low back pain, neck pain, decreased activity tolerance, decreased mobility History of Current Condition Pt is a 58 year old male very well known to this clinic presenting with a highly complex medical history. Pt notes severe long-term cervical and low back pain. Pt does have a history of prior cervical fusion and is hoping for a lumbar fusion within the next 2-3 months. Pt was previously being seen at this clinic for the same complaints , but was discharged due to change in medical status for unrelated surgery. Pt underwent skin removal surgery 08/27/23 after losing a significant amount of weight. Unfortunately, the day following surgery, was exiting his vehicle with his fiancee, and had what appeared to be a siezure and LOC, EMT responded and pt was found to have a BP of 50/35, rushed to [facility] and found to have internal bleeding in his abdomen. Was stabilized and discharged again on . Feeling much better now, and after skin removal ( reports 20 pounds of skin and 7 pounds of fluid was removed) is ambulating with an improved posture and low back pain was feeling much better for ~7 weeks, however has recently been worsening again. Has also recently gotten new orthotic shoes, which both have a 1/4 inch lateral wedge to prevent eversion, which has been helpful in limiting what was previously a problem of nearly constantly rolling his ankles. Treatment Goals Patient/Caregiver Goals Improve pain level in low back and hip, improve ability to get into/out of vehicle, turn head more to look at merging traffic while driving, walk longer distances without pain PT-OP-C Subjective Start: 10/19/23 11:59 Freq: Status: Active Protocol: Document 12/07/23 13:55 DCW (Rec: 12/07/23 14:27 DCW [id number]) OP-PT Subjective Patient Comments Patient Comments Pt comes in with his cane today, notes his legs and back are bothering him. Got new stabilizing shoes, which he feels has corrected too much all at once. PT-OP-E Functional Tests Start: 10/19/23 11:59 Freq: Status: Active Protocol: Document 10/19/23 10:40 DCW (Rec: 10/19/23 16:12 DCW [id number]) Functional Tests 2 Minute Walk Test Distance 284' Device Used None Comments 2.37 ft/sec PT-OP-F Manual Assessment Start: 10/19/23 11:59 Freq: Status: Active Protocol: Document 10/19/23 10:40 DCW (Rec: 10/19/23 16:12 DCW [id number]) Manual Assessments Soft Tissue Assessment Soft Tissue Mobility Assessment Moderate-severe tone B suboccipitals, upper traps, cervical paraspinals, lumbar paraspinals, QL, glutes PT-OP-G Mobility & Gait Start: 10/19/23 11:59 Freq: Status: Active Protocol: Document 10/19/23 10:40 DCW (Rec: 10/19/23 16:12 DCW [id number]) OP Gait Assessment Gait Deviations General Gait Pattern Antalgic,Decreased Stride Length,Decreased Feet Clearance,Flexed Trunk,Wide Based Gait Factors Limiting Gait Function Factors Limiting Gait Function Abnormal Tonal Influences, Decreased Activity Tolerance, Decreased Strength,Pain PT-OP-J Posture/Palpation/Skin Start: 10/19/23 11:59 Freq: Status: Active Protocol: Document 10/19/23 10:40 DCW (Rec: 10/19/23 16:12 DCW [id number]) Posture Evaluation Position Standing Evaluation View Lateral Head/C-Spine Posture C-Spine Flattened,Forward Head T-Spine Posture Flattened L-Spine Posture Flattened,Decreased Lordosis Hip Posture (L) Flexed,(R) Flexed Knee Posture (L) Genu Varus,(R) Genu Varus, (L) Ext. Tibial Torsion,(R) Ext. Tibial Torsion Ankle/Foot Posture (L) Pronated,(R) Pronated,(L) Calcaneal Eversion,(R) Calcaneal Eversion PT-OP-K Range of Motion Start: 10/19/23 11:59 Freq: Status: Active Protocol: Document 10/19/23 10:40 DCW (Rec: 10/19/23 16:12 DCW [id number]) Cervical Spine Range of Motion Cervical Spine Active Degrees Testing Position Sitting Flexion 25 Extension 35 Rotation Left 37 Rotation Right 50 Lateral Flexion Left 25 Lateral Flexion Right 15 Lumbar Spine Range of Motion Lumbar Spine Active Degrees Testing Position Standing Flexion 20 Extension 5 PT-OP-M Strength Start: 10/19/23 11:59 Freq: Status: Active Protocol: Document 10/19/23 10:40 DCW (Rec: 10/19/23 16:12 DCW [id number]) Hip Strength Hip Manual Muscle Testing Right Flexion (L2) 4+ Good+ Abduction 5 Normal Adduction 4+ Good+ Left Flexion (L2) 4- Good- Abduction 5 Normal Adduction 4+ Good+ PT-OP-Q Treatments Start: 10/19/23 11:59 Freq: Status: Active Protocol: Document 12/07/23 13:55 DCW (Rec: 12/07/23 14:27 DCW [id number]) Manual Therapy Treatment Soft Tissue Mobilization Lumbar Body Location B Lumbar paraspinals Mobilization Type Strumming,Sustained Pressure Intensity/Depth Moderate Body Position Sitting PT-OP-T Assessment and Plan Start: 10/19/23 11:59 Freq: Status: Active Protocol: Document 12/07/23 13:55 DCW (Rec: 12/07/23 14:27 DCW [id number]) Physical Therapy Assessment Impairments Impairments Activity Tolerance,Balance, Edema,Functional Activities, Functional Mobility,Gait, Integument,Pain,Posture,ROM, Sensation,Soft Tissue Mobility ,Strength,Tone Goals Three Impairment Cervical rotation limited to 50? R and 37? L [employer] Goal (LTG) Right cervical rotation to improve to at least 50? in order to improve pt's ability to check for traffic while attempting to merge while driving LTG Duration 01/17/24 Two Impairment Pt ambulates 284' during Two Minute Walk Test Detention Goal (LTG) Pt to demonstrate increased activity tolerance by completing a full 6MWT without a rest break, and demonstrates ability to ambulate >700' during the test LTG Duration 01/17/24 One Impairment Pt does not have an appropriate home exercise program Short Term Goal (STG) Pt to be independent and compliant with an appropriate HEP STG Duration 11/19/23 Assessment Summary Assessment Pt struggling more with his ambulation today, problem with gait and ankle instability today. Physical Therapy Plan Frequency and Duration Frequency of Treatment 2x/Week Plan of Care Start Date 10/19/23 Plan of Care End Date 01/17/24 Next Visit Focus/Plan Next Note Type Treatment Note Next Visit Plan Hip strengthening, activity tolerance, Lumbar/Cervical STM and joint mobs.
--- NOTE | 2023-12-17 12:46 | PT.OTN ---
Current Diagnoses Chronic pain syndrome (12/17/23) Spondylosis without myelopathy or radiculopathy, cervical region (12/17/23) Other intervertebral disc disorders, lumbar region (12/17/23) Other abnormalities of gait and mobility (12/17/23) Headache, unspecified (12/17/23) Physical Therapy Treatment Note PT-OP-A Visit Information Start: 10/19/23 11:59 Freq: Status: Active Protocol: Document 12/17/23 12:04 DCW (Rec: 12/17/23 12:46 DCW [id number]) Out-Patient Physical Therapy Visit Information Visit Information Visit Type Treatment Note Visit Start Time 12:03 Visit Stop Time 12:45 Visit Number 10 Number of FOILING MACHINE ADJUSTER Visits 0 Evaluation Information Evaluation Date 10/19/23 PT-OP-B Current Condition Start: 10/19/23 11:59 Freq: Status: Active Protocol: Document 10/19/23 10:40 DCW (Rec: 10/19/23 14:26 DCW [id number]) Current Condition History of Current Condition Onset Date Multi-year history Current Complaints Low back pain, neck pain, decreased activity tolerance, decreased mobility History of Current Condition Pt is a 58 year old male very well known to this clinic presenting with a highly complex medical history. Pt notes severe long-term cervical and low back pain. Pt does have a history of prior cervical fusion and is hoping for a lumbar fusion within the next 2-3 months. Pt was previously being seen at this clinic for the same complaints , but was discharged due to change in medical status for unrelated surgery. Pt underwent skin removal surgery 08/27/23 after losing a significant amount of weight. Unfortunately, the day following surgery, was exiting his vehicle with his fiancee, and had what appeared to be a siezure and LOC, EMT responded and pt was found to have a BP of 50/35, rushed to [facility] and found to have internal bleeding in his abdomen. Was stabilized and discharged again on . Feeling much better now, and after skin removal ( reports 20 pounds of skin and 7 pounds of fluid was removed) is ambulating with an improved posture and low back pain was feeling much better for ~7 weeks, however has recently been worsening again. Has also recently gotten new orthotic shoes, which both have a 1/4 inch lateral wedge to prevent eversion, which has been helpful in limiting what was previously a problem of nearly constantly rolling his ankles. Treatment Goals Patient/Caregiver Goals Improve pain level in low back and hip, improve ability to get into/out of vehicle, turn head more to look at merging traffic while driving, walk longer distances without pain PT-OP-C Subjective Start: 10/19/23 11:59 Freq: Status: Active Protocol: Document 12/17/23 12:04 DCW (Rec: 12/17/23 12:46 DCW [id number]) OP-PT Subjective Patient Comments Patient Comments Low back and neck are just really bound up. Notes spine surgery is booked for 01/24/24. PT-OP-E Functional Tests Start: 10/19/23 11:59 Freq: Status: Active Protocol: Document 10/19/23 10:40 DCW (Rec: 10/19/23 16:12 DCW [id number]) Functional Tests 2 Minute Walk Test Distance 284' Device Used None Comments 2.37 ft/sec PT-OP-F Manual Assessment Start: 10/19/23 11:59 Freq: Status: Active Protocol: Document 10/19/23 10:40 DCW (Rec: 10/19/23 16:12 DCW [id number]) Manual Assessments Soft Tissue Assessment Soft Tissue Mobility Assessment Moderate-severe tone B suboccipitals, upper traps, cervical paraspinals, lumbar paraspinals, QL, glutes PT-OP-G Mobility & Gait Start: 10/19/23 11:59 Freq: Status: Active Protocol: Document 10/19/23 10:40 DCW (Rec: 10/19/23 16:12 DCW [id number]) OP Gait Assessment Gait Deviations General Gait Pattern Antalgic,Decreased Stride Length,Decreased Feet Clearance,Flexed Trunk,Wide Based Gait Factors Limiting Gait Function Factors Limiting Gait Function Abnormal Tonal Influences, Decreased Activity Tolerance, Decreased Strength,Pain PT-OP-J Posture/Palpation/Skin Start: 10/19/23 11:59 Freq: Status: Active Protocol: Document 10/19/23 10:40 DCW (Rec: 10/19/23 16:12 DCW [id number]) Posture Evaluation Position Standing Evaluation View Lateral Head/C-Spine Posture C-Spine Flattened,Forward Head T-Spine Posture Flattened L-Spine Posture Flattened,Decreased Lordosis Hip Posture (L) Flexed,(R) Flexed Knee Posture (L) Genu Varus,(R) Genu Varus, (L) Ext. Tibial Torsion,(R) Ext. Tibial Torsion Ankle/Foot Posture (L) Pronated,(R) Pronated,(L) Calcaneal Eversion,(R) Calcaneal Eversion PT-OP-K Range of Motion Start: 10/19/23 11:59 Freq: Status: Active Protocol: Document 10/19/23 10:40 DCW (Rec: 10/19/23 16:12 DCW [id number]) Cervical Spine Range of Motion Cervical Spine Active Degrees Testing Position Sitting Flexion 25 Extension 35 Rotation Left 37 Rotation Right 50 Lateral Flexion Left 25 Lateral Flexion Right 15 Lumbar Spine Range of Motion Lumbar Spine Active Degrees Testing Position Standing Flexion 20 Extension 5 PT-OP-M Strength Start: 10/19/23 11:59 Freq: Status: Active Protocol: Document 10/19/23 10:40 DCW (Rec: 10/19/23 16:12 DCW [id number]) Hip Strength Hip Manual Muscle Testing Right Flexion (L2) 4+ Good+ Abduction 5 Normal Adduction 4+ Good+ Left Flexion (L2) 4- Good- Abduction 5 Normal Adduction 4+ Good+ PT-OP-Q Treatments Start: 10/19/23 11:59 Freq: Status: Active Protocol: Document 12/17/23 12:04 DCW (Rec: 12/17/23 12:46 DCW [id number]) Manual Therapy Treatment Soft Tissue Mobilization Cervical Spine Body Location paraspinals, UT, Levator Mobilization Type Strumming,Sustained Pressure, Trigger Point Release Intensity/Depth Moderate Body Position Sitting Lumbar Body Location B Lumbar paraspinals Mobilization Type Strumming,Sustained Pressure Intensity/Depth Moderate Body Position Sitting PT-OP-T Assessment and Plan Start: 10/19/23 11:59 Freq: Status: Active Protocol: Document 12/17/23 12:04 DCW (Rec: 12/17/23 12:46 DCW [id number]) Physical Therapy Assessment Impairments Impairments Activity Tolerance,Balance, Edema,Functional Activities, Functional Mobility,Gait, Integument,Pain,Posture,ROM, Sensation,Soft Tissue Mobility ,Strength,Tone Goals Three Impairment Cervical rotation limited to 50? R and 37? L Longterm Goal (LTG) Right cervical rotation to improve to at least 50? in order to improve pt's ability to check for traffic while attempting to merge while driving LTG Duration 01/17/24 Two Impairment Pt ambulates 284' during Two Minute Walk Test Sponge [employer] Goal (LTG) Pt to demonstrate increased activity tolerance by completing a full 6MWT without a rest break, and demonstrates ability to ambulate >700' during the test LTG Duration 01/17/24 One Impairment Pt does not have an appropriate home exercise program Short Term Goal (STG) Pt to be independent and compliant with an appropriate HEP STG Duration 11/19/23 Assessment Summary Assessment Pt ambulating slightly better following todays session, hopeful pt can continue to stay function with PT until spine surgery next month Physical Therapy Plan Frequency and Duration Frequency of Treatment 2x/Week Plan of Care Start Date 10/19/23 Plan of Care End Date 01/17/24 Next Visit Focus/Plan Next Note Type Treatment Note Next Visit Plan Hip strengthening, activity tolerance, Lumbar/Cervical STM and joint mobs.
--- NOTE | 2023-12-19 12:48 | PT.OTN ---
Current Diagnoses Chronic pain syndrome (12/19/23) Spondylosis without myelopathy or radiculopathy, cervical region (12/19/23) Other intervertebral disc disorders, lumbar region (12/19/23) Other abnormalities of gait and mobility (12/19/23) Headache, unspecified (12/19/23) Physical Therapy Treatment Note PT-OP-A Visit Information Start: 10/19/23 11:59 Freq: Status: Active Protocol: Document 12/19/23 12:00 DCW (Rec: 12/19/23 12:48 DCW [id number]) Out-Patient Physical Therapy Visit Information Visit Information Visit Type Treatment Note Visit Start Time 12:00 Visit Stop Time 12:45 Visit Number 11 Number of [employer] DRIVER Visits 0 Evaluation Information Evaluation Date 10/19/23 PT-OP-B Current Condition Start: 10/19/23 11:59 Freq: Status: Active Protocol: Document 10/19/23 10:40 DCW (Rec: 10/19/23 14:26 DCW [id number]) Current Condition History of Current Condition Onset Date Multi-year history Current Complaints Low back pain, neck pain, decreased activity tolerance, decreased mobility History of Current Condition Pt is a 58 year old male very well known to this clinic presenting with a highly complex medical history. Pt notes severe long-term cervical and low back pain. Pt does have a history of prior cervical fusion and is hoping for a lumbar fusion within the next 2-3 months. Pt was previously being seen at this clinic for the same complaints , but was discharged due to change in medical status for unrelated surgery. Pt underwent skin removal surgery 08/27/23 after losing a significant amount of weight. Unfortunately, the day following surgery, was exiting his vehicle with his fiancee, and had what appeared to be a siezure and LOC, EMT responded and pt was found to have a BP of 50/35, rushed to [facility] and found to have internal bleeding in his abdomen. Was stabilized and discharged again on . Feeling much better now, and after skin removal ( reports 20 pounds of skin and 7 pounds of fluid was removed) is ambulating with an improved posture and low back pain was feeling much better for ~7 weeks, however has recently been worsening again. Has also recently gotten new orthotic shoes, which both have a 1/4 inch lateral wedge to prevent eversion, which has been helpful in limiting what was previously a problem of nearly constantly rolling his ankles. Treatment Goals Patient/Caregiver Goals Improve pain level in low back and hip, improve ability to get into/out of vehicle, turn head more to look at merging traffic while driving, walk longer distances without pain PT-OP-C Subjective Start: 10/19/23 11:59 Freq: Status: Active Protocol: Document 12/19/23 12:00 DCW (Rec: 12/19/23 12:48 DCW [place] [id number]) OP-PT Subjective Patient Comments Patient Comments Pt standing more upright, the neck is better, the back is a work in progress. PT-OP-E Functional Tests Start: 10/19/23 11:59 Freq: Status: Active Protocol: Document 10/19/23 10:40 DCW (Rec: 10/19/23 16:12 DCW [id number]) Functional Tests 2 Minute Walk Test Distance 284' Device Used None Comments 2.37 ft/sec PT-OP-F Manual Assessment Start: 10/19/23 11:59 Freq: Status: Active Protocol: Document 10/19/23 10:40 DCW (Rec: 10/19/23 16:12 DCW [id number]) Manual Assessments Soft Tissue Assessment Soft Tissue Mobility Assessment Moderate-severe tone B suboccipitals, upper traps, cervical paraspinals, lumbar paraspinals, QL, glutes PT-OP-G Mobility & Gait Start: 10/19/23 11:59 Freq: Status: Active Protocol: Document 10/19/23 10:40 DCW (Rec: 10/19/23 16:12 DCW [place] [id number]) OP Gait Assessment Gait Deviations General Gait Pattern Antalgic,Decreased Stride Length,Decreased Feet Clearance,Flexed Trunk,Wide Based Gait Factors Limiting Gait Function Factors Limiting Gait Function Abnormal Tonal Influences, Decreased Activity Tolerance, Decreased Strength,Pain PT-OP-J Posture/Palpation/Skin Start: 10/19/23 11:59 Freq: Status: Active Protocol: Document 10/19/23 10:40 DCW (Rec: 10/19/23 16:12 DCW [id number]) Posture Evaluation Position Standing Evaluation View Lateral Head/C-Spine Posture C-Spine Flattened,Forward Head T-Spine Posture Flattened L-Spine Posture Flattened,Decreased Lordosis Hip Posture (L) Flexed,(R) Flexed Knee Posture (L) Genu Varus,(R) Genu Varus, (L) Ext. Tibial Torsion,(R) Ext. Tibial Torsion Ankle/Foot Posture (L) Pronated,(R) Pronated,(L) Calcaneal Eversion,(R) Calcaneal Eversion PT-OP-K Range of Motion Start: 10/19/23 11:59 Freq: Status: Active Protocol: Document 10/19/23 10:40 DCW (Rec: 10/19/23 16:12 DCW [id number]) Cervical Spine Range of Motion Cervical Spine Active Degrees Testing Position Sitting Flexion 25 Extension 35 Rotation Left 37 Rotation Right 50 Lateral Flexion Left 25 Lateral Flexion Right 15 Lumbar Spine Range of Motion Lumbar Spine Active Degrees Testing Position Standing Flexion 20 Extension 5 PT-OP-M Strength Start: 10/19/23 11:59 Freq: Status: Active Protocol: Document 10/19/23 10:40 DCW (Rec: 10/19/23 16:12 DCW [id number]) Hip Strength Hip Manual Muscle Testing Right Flexion (L2) 4+ Good+ Abduction 5 Normal Adduction 4+ Good+ Left Flexion (L2) 4- Good- Abduction 5 Normal Adduction 4+ Good+ PT-OP-Q Treatments Start: 10/19/23 11:59 Freq: Status: Active Protocol: Document 12/19/23 12:00 DCW (Rec: 12/19/23 12:48 DCW [id number]) Manual Therapy Treatment Soft Tissue Mobilization Cervical Spine Body Location paraspinals, UT, Levator Mobilization Type Strumming,Sustained Pressure, Trigger Point Release Intensity/Depth Moderate Body Position Sitting Lumbar Body Location B Lumbar paraspinals Mobilization Type Strumming,Sustained Pressure Intensity/Depth Moderate Body Position Sitting PT-OP-T Assessment and Plan Start: 10/19/23 11:59 Freq: Status: Active Protocol: Document 12/19/23 12:00 DCW (Rec: 12/19/23 12:48 DCW [id number]) Physical Therapy Assessment Impairments Impairments Activity Tolerance,Balance, Edema,Functional Activities, Functional Mobility,Gait, Integument,Pain,Posture,ROM, Sensation,Soft Tissue Mobility ,Strength,Tone Goals Three Impairment Cervical rotation limited to 50? R and 37? L Prison Goal (LTG) Right cervical rotation to improve to at least 50? in order to improve pt's ability to check for traffic while attempting to merge while driving LTG Duration 01/17/24 Two Impairment Pt ambulates 284' during Two Minute Walk Test [employer] Goal (LTG) Pt to demonstrate increased activity tolerance by completing a full 6MWT without a rest break, and demonstrates ability to ambulate >700' during the test LTG Duration 01/17/24 One Impairment Pt does not have an appropriate home exercise program Short Term Goal (STG) Pt to be independent and compliant with an appropriate HEP STG Duration 11/19/23 Assessment Summary Assessment New pain in right shoulder today, increased levator tone. Discussed decreasing force through SPC, pt currently elevating right shoulder due to cane. Physical Therapy Plan Frequency and Duration Frequency of Treatment 2x/Week Plan of Care Start Date 10/19/23 Plan of Care End Date 01/17/24 Next Visit Focus/Plan Next Note Type Treatment Note Next Visit Plan Hip strengthening, activity tolerance, Lumbar/Cervical STM and joint mobs.
--- NOTE | 2023-12-27 15:14 | PT.OTN ---
Current Diagnoses Chronic pain syndrome (12/27/23) Spondylosis without myelopathy or radiculopathy, cervical region (12/27/23) Other intervertebral disc disorders, lumbar region (12/27/23) Other abnormalities of gait and mobility (12/27/23) Headache, unspecified (12/27/23) Physical Therapy Treatment Note PT-OP-A Visit Information Start: 10/19/23 11:59 Freq: Status: Active Protocol: Document 12/27/23 14:30 DCW (Rec: 12/27/23 15:14 DCW [id number]) Out-Patient Physical Therapy Visit Information Visit Information Visit Type Treatment Note Visit Start Time 14:30 Visit Stop Time 15:15 Visit Number 12 Number of FIELD SERVICE ANALYST Visits 0 Evaluation Information Evaluation Date 10/19/23 PT-OP-B Current Condition Start: 10/19/23 11:59 Freq: Status: Active Protocol: Document 10/19/23 10:40 DCW (Rec: 10/19/23 14:26 DCW [id number]) Current Condition History of Current Condition Onset Date Multi-year history Current Complaints Low back pain, neck pain, decreased activity tolerance, decreased mobility History of Current Condition Pt is a 58 year old male very well known to this clinic presenting with a highly complex medical history. Pt notes severe long-term cervical and low back pain. Pt does have a history of prior cervical fusion and is hoping for a lumbar fusion within the next 2-3 months. Pt was previously being seen at this clinic for the same complaints , but was discharged due to change in medical status for unrelated surgery. Pt underwent skin removal surgery 08/27/23 after losing a significant amount of weight. Unfortunately, the day following surgery, was exiting his vehicle with his fiancee, and had what appeared to be a siezure and LOC, EMT responded and pt was found to have a BP of 50/35, rushed to [facility] and found to have internal bleeding in his abdomen. Was stabilized and discharged again on . Feeling much better now, and after skin removal ( reports 20 pounds of skin and 7 pounds of fluid was removed) is ambulating with an improved posture and low back pain was feeling much better for ~7 weeks, however has recently been worsening again. Has also recently gotten new orthotic shoes, which both have a 1/4 inch lateral wedge to prevent eversion, which has been helpful in limiting what was previously a problem of nearly constantly rolling his ankles. Treatment Goals Patient/Caregiver Goals Improve pain level in low back and hip, improve ability to get into/out of vehicle, turn head more to look at merging traffic while driving, walk longer distances without pain PT-OP-C Subjective Start: 10/19/23 11:59 Freq: Status: Active Protocol: Document 12/27/23 14:30 DCW (Rec: 12/27/23 15:14 DCW [id number]) OP-PT Subjective Patient Comments Patient Comments Not as bad as it has been, but the back is a bit sore, and the neck is a bit tight. PT-OP-E Functional Tests Start: 10/19/23 11:59 Freq: Status: Active Protocol: Document 10/19/23 10:40 DCW (Rec: 10/19/23 16:12 DCW [id number]) Functional Tests 2 Minute Walk Test Distance 284' Device Used None Comments 2.37 ft/sec PT-OP-F Manual Assessment Start: 10/19/23 11:59 Freq: Status: Active Protocol: Document 10/19/23 10:40 DCW (Rec: 10/19/23 16:12 DCW [id number]) Manual Assessments Soft Tissue Assessment Soft Tissue Mobility Assessment Moderate-severe tone B suboccipitals, upper traps, cervical paraspinals, lumbar paraspinals, QL, glutes PT-OP-G Mobility & Gait Start: 10/19/23 11:59 Freq: Status: Active Protocol: Document 10/19/23 10:40 DCW (Rec: 10/19/23 16:12 DCW [id number]) OP Gait Assessment Gait Deviations General Gait Pattern Antalgic,Decreased Stride Length,Decreased Feet Clearance,Flexed Trunk,Wide Based Gait Factors Limiting Gait Function Factors Limiting Gait Function Abnormal Tonal Influences, Decreased Activity Tolerance, Decreased Strength,Pain PT-OP-J Posture/Palpation/Skin Start: 10/19/23 11:59 Freq: Status: Active Protocol: Document 10/19/23 10:40 DCW (Rec: 10/19/23 16:12 DCW [id number]) Posture Evaluation Position Standing Evaluation View Lateral Head/C-Spine Posture C-Spine Flattened,Forward Head T-Spine Posture Flattened L-Spine Posture Flattened,Decreased Lordosis Hip Posture (L) Flexed,(R) Flexed Knee Posture (L) Genu Varus,(R) Genu Varus, (L) Ext. Tibial Torsion,(R) Ext. Tibial Torsion Ankle/Foot Posture (L) Pronated,(R) Pronated,(L) Calcaneal Eversion,(R) Calcaneal Eversion PT-OP-K Range of Motion Start: 10/19/23 11:59 Freq: Status: Active Protocol: Document 10/19/23 10:40 DCW (Rec: 10/19/23 16:12 DCW [id number]) Cervical Spine Range of Motion Cervical Spine Active Degrees Testing Position Sitting Flexion 25 Extension 35 Rotation Left 37 Rotation Right 50 Lateral Flexion Left 25 Lateral Flexion Right 15 Lumbar Spine Range of Motion Lumbar Spine Active Degrees Testing Position Standing Flexion 20 Extension 5 PT-OP-M Strength Start: 10/19/23 11:59 Freq: Status: Active Protocol: Document 10/19/23 10:40 DCW (Rec: 10/19/23 16:12 DCW [id number]) Hip Strength Hip Manual Muscle Testing Right Flexion (L2) 4+ Good+ Abduction 5 Normal Adduction 4+ Good+ Left Flexion (L2) 4- Good- Abduction 5 Normal Adduction 4+ Good+ PT-OP-Q Treatments Start: 10/19/23 11:59 Freq: Status: Active Protocol: Document 12/27/23 14:30 DCW (Rec: 12/27/23 15:14 DCW [id number]) Manual Therapy Treatment Soft Tissue Mobilization Cervical Spine Body Location paraspinals, UT, Levator Mobilization Type Strumming,Sustained Pressure, Trigger Point Release Intensity/Depth Moderate Body Position Sitting Lumbar Body Location B Lumbar paraspinals Mobilization Type Strumming,Sustained Pressure Intensity/Depth Moderate Body Position Sitting PT-OP-T Assessment and Plan Start: 10/19/23 11:59 Freq: Status: Active Protocol: Document 12/27/23 14:30 DCW (Rec: 12/27/23 15:14 DCW [id number]) Physical Therapy Assessment Impairments Impairments Activity Tolerance,Balance, Edema,Functional Activities, Functional Mobility,Gait, Integument,Pain,Posture,ROM, Sensation,Soft Tissue Mobility ,Strength,Tone Goals Three Impairment Cervical rotation limited to 50? R and 37? L Elementary Art Teacher Goal (LTG) Right cervical rotation to improve to at least 50? in order to improve pt's ability to check for traffic while attempting to merge while driving LTG Duration 01/17/24 Two Impairment Pt ambulates 284' during Two Minute Walk Test Elementary Art Teacher Goal (LTG) Pt to demonstrate increased activity tolerance by completing a full 6MWT without a rest break, and demonstrates ability to ambulate >700' during the test LTG Duration 01/17/24 One Impairment Pt does not have an appropriate home exercise program Short Term Goal (STG) Pt to be independent and compliant with an appropriate HEP STG Duration 11/19/23 Assessment Summary Assessment R levator improved today vs last week, overall improved tone and mobility. Continue to focus on tone management and decreased pain until upcoming spinal surgery. Physical Therapy Plan Frequency and Duration Frequency of Treatment 2x/Week Plan of Care Start Date 10/19/23 Plan of Care End Date 01/17/24 Next Visit Focus/Plan Next Note Type Treatment Note Next Visit Plan Hip strengthening, activity tolerance, Lumbar/Cervical STM and joint mobs.
--- NOTE | 2024-01-01 12:43 | PT.OTN ---
Current Diagnoses Chronic pain syndrome (01/01/24) Spondylosis without myelopathy or radiculopathy, cervical region (01/01/24) Other intervertebral disc disorders, lumbar region (01/01/24) Other abnormalities of gait and mobility (01/01/24) Headache, unspecified (01/01/24) Physical Therapy Treatment Note PT-OP-A Visit Information Start: 10/19/23 11:59 Freq: Status: Active Protocol: Document 01/01/24 12:00 DCW (Rec: 01/01/24 12:43 DCW [id number]) Out-Patient Physical Therapy Visit Information Visit Information Visit Type Treatment Note Visit Start Time 12:00 Visit Stop Time 12:45 Visit Number 13 Number of SSN/SSBN ASSISTANT NAVIGATOR Visits 0 Evaluation Information Evaluation Date 10/19/23 PT-OP-B Current Condition Start: 10/19/23 11:59 Freq: Status: Active Protocol: Document 10/19/23 10:40 DCW (Rec: 10/19/23 14:26 DCW [id number]) Current Condition History of Current Condition Onset Date Multi-year history Current Complaints Low back pain, neck pain, decreased activity tolerance, decreased mobility History of Current Condition Pt is a 58 year old male very well known to this clinic presenting with a highly complex medical history. Pt notes severe long-term cervical and low back pain. Pt does have a history of prior cervical fusion and is hoping for a lumbar fusion within the next 2-3 months. Pt was previously being seen at this clinic for the same complaints , but was discharged due to change in medical status for unrelated surgery. Pt underwent skin removal surgery 08/27/23 after losing a significant amount of weight. Unfortunately, the day following surgery, was exiting his vehicle with his fiancee, and had what appeared to be a siezure and LOC, EMT responded and pt was found to have a BP of 50/35, rushed to [facility] and found to have internal bleeding in his abdomen. Was stabilized and discharged again on . Feeling much better now, and after skin removal ( reports 20 pounds of skin and 7 pounds of fluid was removed) is ambulating with an improved posture and low back pain was feeling much better for ~7 weeks, however has recently been worsening again. Has also recently gotten new orthotic shoes, which both have a 1/4 inch lateral wedge to prevent eversion, which has been helpful in limiting what was previously a problem of nearly constantly rolling his ankles. Treatment Goals Patient/Caregiver Goals Improve pain level in low back and hip, improve ability to get into/out of vehicle, turn head more to look at merging traffic while driving, walk longer distances without pain PT-OP-C Subjective Start: 10/19/23 11:59 Freq: Status: Active Protocol: Document 01/01/24 12:00 DCW (Rec: 01/01/24 12:43 DCW [id number]) OP-PT Subjective Patient Comments Patient Comments I fell alseep on a couch I shouldn't have. My legs don't feel like they're working right. PT-OP-E Functional Tests Start: 10/19/23 11:59 Freq: Status: Active Protocol: Document 10/19/23 10:40 DCW (Rec: 10/19/23 16:12 DCW [id number]) Functional Tests 2 Minute Walk Test Distance 284' Device Used None Comments 2.37 ft/sec PT-OP-F Manual Assessment Start: 10/19/23 11:59 Freq: Status: Active Protocol: Document 10/19/23 10:40 DCW (Rec: 10/19/23 16:12 DCW [id number]) Manual Assessments Soft Tissue Assessment Soft Tissue Mobility Assessment Moderate-severe tone B suboccipitals, upper traps, cervical paraspinals, lumbar paraspinals, QL, glutes PT-OP-G Mobility & Gait Start: 10/19/23 11:59 Freq: Status: Active Protocol: Document 10/19/23 10:40 DCW (Rec: 10/19/23 16:12 DCW [id number]) OP Gait Assessment Gait Deviations General Gait Pattern Antalgic,Decreased Stride Length,Decreased Feet Clearance,Flexed Trunk,Wide Based Gait Factors Limiting Gait Function Factors Limiting Gait Function Abnormal Tonal Influences, Decreased Activity Tolerance, Decreased Strength,Pain PT-OP-J Posture/Palpation/Skin Start: 10/19/23 11:59 Freq: Status: Active Protocol: Document 10/19/23 10:40 DCW (Rec: 10/19/23 16:12 DCW [id number]) Posture Evaluation Position Standing Evaluation View Lateral Head/C-Spine Posture C-Spine Flattened,Forward Head T-Spine Posture Flattened L-Spine Posture Flattened,Decreased Lordosis Hip Posture (L) Flexed,(R) Flexed Knee Posture (L) Genu Varus,(R) Genu Varus, (L) Ext. Tibial Torsion,(R) Ext. Tibial Torsion Ankle/Foot Posture (L) Pronated,(R) Pronated,(L) Calcaneal Eversion,(R) Calcaneal Eversion PT-OP-K Range of Motion Start: 10/19/23 11:59 Freq: Status: Active Protocol: Document 10/19/23 10:40 DCW (Rec: 10/19/23 16:12 DCW [id number]) Cervical Spine Range of Motion Cervical Spine Active Degrees Testing Position Sitting Flexion 25 Extension 35 Rotation Left 37 Rotation Right 50 Lateral Flexion Left 25 Lateral Flexion Right 15 Lumbar Spine Range of Motion Lumbar Spine Active Degrees Testing Position Standing Flexion 20 Extension 5 PT-OP-M Strength Start: 10/19/23 11:59 Freq: Status: Active Protocol: Document 10/19/23 10:40 DCW (Rec: 10/19/23 16:12 DCW [id number]) Hip Strength Hip Manual Muscle Testing Right Flexion (L2) 4+ Good+ Abduction 5 Normal Adduction 4+ Good+ Left Flexion (L2) 4- Good- Abduction 5 Normal Adduction 4+ Good+ PT-OP-Q Treatments Start: 10/19/23 11:59 Freq: Status: Active Protocol: Document 01/01/24 12:00 DCW (Rec: 01/01/24 12:43 DCW [id number]) Manual Therapy Treatment Soft Tissue Mobilization Cervical Spine Body Location paraspinals, UT, Levator Mobilization Type Strumming,Sustained Pressure, Trigger Point Release Intensity/Depth Moderate Body Position Sitting Lumbar Body Location B Lumbar paraspinals Mobilization Type Strumming,Sustained Pressure Intensity/Depth Moderate Body Position Sitting PT-OP-T Assessment and Plan Start: 10/19/23 11:59 Freq: Status: Active Protocol: Document 01/01/24 12:00 DCW (Rec: 01/01/24 12:43 DCW [id number]) Physical Therapy Assessment Impairments Impairments Activity Tolerance,Balance, Edema,Functional Activities, Functional Mobility,Gait, Integument,Pain,Posture,ROM, Sensation,Soft Tissue Mobility ,Strength,Tone Goals Three Impairment Cervical rotation limited to 50? R and 37? L Nursing Home Goal (LTG) Right cervical rotation to improve to at least 50? in order to improve pt's ability to check for traffic while attempting to merge while driving LTG Duration 01/17/24 Two Impairment Pt ambulates 284' during Two Minute Walk Test Nursing Home Goal (LTG) Pt to demonstrate increased activity tolerance by completing a full 6MWT without a rest break, and demonstrates ability to ambulate >700' during the test LTG Duration 01/17/24 One Impairment Pt does not have an appropriate home exercise program Short Term Goal (STG) Pt to be independent and compliant with an appropriate HEP STG Duration 11/19/23 Assessment Summary Assessment Moving slightly better today, although struggling with standing upright. Prepping for upcoming spinal surgery. Physical Therapy Plan Frequency and Duration Frequency of Treatment 2x/Week Plan of Care Start Date 10/19/23 Plan of Care End Date 01/17/24 Next Visit Focus/Plan Next Note Type Treatment Note Next Visit Plan Hip strengthening, activity tolerance, Lumbar/Cervical STM and joint mobs.
--- NOTE | 2024-01-03 12:45 | PT.OTN ---
Current Diagnoses Chronic pain syndrome (01/03/24) Spondylosis without myelopathy or radiculopathy, cervical region (01/03/24) Other intervertebral disc disorders, lumbar region (01/03/24) Other abnormalities of gait and mobility (01/03/24) Headache, unspecified (01/03/24) Physical Therapy Treatment Note PT-OP-A Visit Information Start: 10/19/23 11:59 Freq: Status: Active Protocol: Document 01/03/24 12:00 DCW (Rec: 01/03/24 12:45 DCW [id number]) Out-Patient Physical Therapy Visit Information Visit Information Visit Type Treatment Note Visit Start Time 12:00 Visit Stop Time 12:45 Visit Number 14 Number of PULP BLEACHER Visits 0 Evaluation Information Evaluation Date 10/19/23 PT-OP-B Current Condition Start: 10/19/23 11:59 Freq: Status: Active Protocol: Document 10/19/23 10:40 DCW (Rec: 10/19/23 14:26 DCW [id number]) Current Condition History of Current Condition Onset Date Multi-year history Current Complaints Low back pain, neck pain, decreased activity tolerance, decreased mobility History of Current Condition Pt is a 58 year old male very well known to this clinic presenting with a highly complex medical history. Pt notes severe long-term cervical and low back pain. Pt does have a history of prior cervical fusion and is hoping for a lumbar fusion within the next 2-3 months. Pt was previously being seen at this clinic for the same complaints , but was discharged due to change in medical status for unrelated surgery. Pt underwent skin removal surgery 08/27/23 after losing a significant amount of weight. Unfortunately, the day following surgery, was exiting his vehicle with his fiancee, and had what appeared to be a siezure and LOC, EMT responded and pt was found to have a BP of 50/35, rushed to [facility] and found to have internal bleeding in his abdomen. Was stabilized and discharged again on . Feeling much better now, and after skin removal ( reports 20 pounds of skin and 7 pounds of fluid was removed) is ambulating with an improved posture and low back pain was feeling much better for ~7 weeks, however has recently been worsening again. Has also recently gotten new orthotic shoes, which both have a 1/4 inch lateral wedge to prevent eversion, which has been helpful in limiting what was previously a problem of nearly constantly rolling his ankles. Treatment Goals Patient/Caregiver Goals Improve pain level in low back and hip, improve ability to get into/out of vehicle, turn head more to look at merging traffic while driving, walk longer distances without pain PT-OP-C Subjective Start: 10/19/23 11:59 Freq: Status: Active Protocol: Document 01/03/24 12:00 DCW (Rec: 01/03/24 12:45 DCW [id number]) OP-PT Subjective Patient Comments Patient Comments It's been an up and down day, notes he is dealing with estate issues and his pre-op on Sunday. PT-OP-E Functional Tests Start: 10/19/23 11:59 Freq: Status: Active Protocol: Document 10/19/23 10:40 DCW (Rec: 10/19/23 16:12 DCW [id number]) Functional Tests 2 Minute Walk Test Distance 284' Device Used None Comments 2.37 ft/sec PT-OP-F Manual Assessment Start: 10/19/23 11:59 Freq: Status: Active Protocol: Document 10/19/23 10:40 DCW (Rec: 10/19/23 16:12 DCW [id number]) Manual Assessments Soft Tissue Assessment Soft Tissue Mobility Assessment Moderate-severe tone B suboccipitals, upper traps, cervical paraspinals, lumbar paraspinals, QL, glutes PT-OP-G Mobility & Gait Start: 10/19/23 11:59 Freq: Status: Active Protocol: Document 10/19/23 10:40 DCW (Rec: 10/19/23 16:12 DCW [id number]) OP Gait Assessment Gait Deviations General Gait Pattern Antalgic,Decreased Stride Length,Decreased Feet Clearance,Flexed Trunk,Wide Based Gait Factors Limiting Gait Function Factors Limiting Gait Function Abnormal Tonal Influences, Decreased Activity Tolerance, Decreased Strength,Pain PT-OP-J Posture/Palpation/Skin Start: 10/19/23 11:59 Freq: Status: Active Protocol: Document 10/19/23 10:40 DCW (Rec: 10/19/23 16:12 DCW [id number]) Posture Evaluation Position Standing Evaluation View Lateral Head/C-Spine Posture C-Spine Flattened,Forward Head T-Spine Posture Flattened L-Spine Posture Flattened,Decreased Lordosis Hip Posture (L) Flexed,(R) Flexed Knee Posture (L) Genu Varus,(R) Genu Varus, (L) Ext. Tibial Torsion,(R) Ext. Tibial Torsion Ankle/Foot Posture (L) Pronated,(R) Pronated,(L) Calcaneal Eversion,(R) Calcaneal Eversion PT-OP-K Range of Motion Start: 10/19/23 11:59 Freq: Status: Active Protocol: Document 10/19/23 10:40 DCW (Rec: 10/19/23 16:12 DCW [id number]) Cervical Spine Range of Motion Cervical Spine Active Degrees Testing Position Sitting Flexion 25 Extension 35 Rotation Left 37 Rotation Right 50 Lateral Flexion Left 25 Lateral Flexion Right 15 Lumbar Spine Range of Motion Lumbar Spine Active Degrees Testing Position Standing Flexion 20 Extension 5 PT-OP-M Strength Start: 10/19/23 11:59 Freq: Status: Active Protocol: Document 10/19/23 10:40 DCW (Rec: 10/19/23 16:12 DCW [id number]) Hip Strength Hip Manual Muscle Testing Right Flexion (L2) 4+ Good+ Abduction 5 Normal Adduction 4+ Good+ Left Flexion (L2) 4- Good- Abduction 5 Normal Adduction 4+ Good+ PT-OP-Q Treatments Start: 10/19/23 11:59 Freq: Status: Active Protocol: Document 01/03/24 12:00 DCW (Rec: 01/03/24 12:45 DCW [id number]) Manual Therapy Treatment Soft Tissue Mobilization Cervical Spine Body Location paraspinals, UT, Levator Mobilization Type Strumming,Sustained Pressure, Trigger Point Release Intensity/Depth Moderate Body Position Sitting Lumbar Body Location B Lumbar paraspinals Mobilization Type Strumming,Sustained Pressure Intensity/Depth Moderate Body Position Sitting PT-OP-T Assessment and Plan Start: 10/19/23 11:59 Freq: Status: Active Protocol: Document 01/03/24 12:00 DCW (Rec: 01/03/24 12:45 DCW [id number]) Physical Therapy Assessment Impairments Impairments Activity Tolerance,Balance, Edema,Functional Activities, Functional Mobility,Gait, Integument,Pain,Posture,ROM, Sensation,Soft Tissue Mobility ,Strength,Tone Goals Three Impairment Cervical rotation limited to 50? R and 37? L Snf Goal (LTG) Right cervical rotation to improve to at least 50? in order to improve pt's ability to check for traffic while attempting to merge while driving LTG Duration 01/17/24 Two Impairment Pt ambulates 284' during Two Minute Walk Test Snf Goal (LTG) Pt to demonstrate increased activity tolerance by completing a full 6MWT without a rest break, and demonstrates ability to ambulate >700' during the test LTG Duration 01/17/24 One Impairment Pt does not have an appropriate home exercise program Short Term Goal (STG) Pt to be independent and compliant with an appropriate HEP STG Duration 11/19/23 Assessment Summary Assessment Good tolerance, walking better today, less overall tone. Pt will likely discharge next week in preparation for upcoming spinal surgery Physical Therapy Plan Frequency and Duration Frequency of Treatment 2x/Week Plan of Care Start Date 10/19/23 Plan of Care End Date 01/17/24 Next Visit Focus/Plan Next Note Type Treatment Note Next Visit Plan Hip strengthening, activity tolerance, Lumbar/Cervical STM and joint mobs.
--- NOTE | 2024-01-08 15:14 | PT.OTN ---
Current Diagnoses Chronic pain syndrome (01/08/24) Spondylosis without myelopathy or radiculopathy, cervical region (01/08/24) Other intervertebral disc disorders, lumbar region (01/08/24) Other abnormalities of gait and mobility (01/08/24) Headache, unspecified (01/08/24) Physical Therapy Treatment Note PT-OP-A Visit Information Start: 10/19/23 11:59 Freq: Status: Active Protocol: Document 01/08/24 14:30 DCW (Rec: 01/08/24 15:14 DCW [id number]) Out-Patient Physical Therapy Visit Information Visit Information Visit Type Discharge Summary Visit Start Time 14:30 Visit Stop Time 15:15 Visit Number 15 Number of NEW AUTOS DELIVERY DRIVER Visits 0 Evaluation Information Evaluation Date 10/19/23 PT-OP-B Current Condition Start: 10/19/23 11:59 Freq: Status: Active Protocol: Document 10/19/23 10:40 DCW (Rec: 10/19/23 14:26 DCW [id number]) Current Condition History of Current Condition Onset Date Multi-year history Current Complaints Low back pain, neck pain, decreased activity tolerance, decreased mobility History of Current Condition Pt is a 58 year old male very well known to this clinic presenting with a highly complex medical history. Pt notes severe long-term cervical and low back pain. Pt does have a history of prior cervical fusion and is hoping for a lumbar fusion within the next 2-3 months. Pt was previously being seen at this clinic for the same complaints , but was discharged due to change in medical status for unrelated surgery. Pt underwent skin removal surgery 08/27/23 after losing a significant amount of weight. Unfortunately, the day following surgery, was exiting his vehicle with his fiancee, and had what appeared to be a siezure and LOC, EMT responded and pt was found to have a BP of 50/35, rushed to [facility] and found to have internal bleeding in his abdomen. Was stabilized and discharged again on . Feeling much better now, and after skin removal ( reports 20 pounds of skin and 7 pounds of fluid was removed) is ambulating with an improved posture and low back pain was feeling much better for ~7 weeks, however has recently been worsening again. Has also recently gotten new orthotic shoes, which both have a 1/4 inch lateral wedge to prevent eversion, which has been helpful in limiting what was previously a problem of nearly constantly rolling his ankles. Treatment Goals Patient/Caregiver Goals Improve pain level in low back and hip, improve ability to get into/out of vehicle, turn head more to look at merging traffic while driving, walk longer distances without pain PT-OP-C Subjective Start: 10/19/23 11:59 Freq: Status: Active Protocol: Document 01/08/24 14:30 DCW (Rec: 01/08/24 15:14 DCW [id number]) OP-PT Subjective Patient Comments Patient Comments Pt sore, but not outright painful. Got final approval for thoracic surgery 01/24/24. Notes [facility] will be sending new referral for post- op therapy. PT-OP-E Functional Tests Start: 10/19/23 11:59 Freq: Status: Active Protocol: Document 10/19/23 10:40 DCW (Rec: 10/19/23 16:12 DCW [id number]) Functional Tests 2 Minute Walk Test Distance 284' Device Used None Comments 2.37 ft/sec PT-OP-F Manual Assessment Start: 10/19/23 11:59 Freq: Status: Active Protocol: Document 10/19/23 10:40 DCW (Rec: 10/19/23 16:12 DCW [id number]) Manual Assessments Soft Tissue Assessment Soft Tissue Mobility Assessment Moderate-severe tone B suboccipitals, upper traps, cervical paraspinals, lumbar paraspinals, QL, glutes PT-OP-G Mobility & Gait Start: 10/19/23 11:59 Freq: Status: Active Protocol: Document 01/08/24 14:30 DCW (Rec: 01/08/24 14:39 DCW [id number]) OP Gait Assessment Gait Deviations General Gait Pattern Antalgic,Decreased Stride Length,Decreased Feet Clearance,Flexed Trunk,Wide Based Gait Factors Limiting Gait Function Factors Limiting Gait Function Abnormal Tonal Influences, Decreased Activity Tolerance, Decreased Strength,Pain PT-OP-J Posture/Palpation/Skin Start: 10/19/23 11:59 Freq: Status: Active Protocol: Document 10/19/23 10:40 DCW (Rec: 10/19/23 16:12 DCW [id number]) Posture Evaluation Position Standing Evaluation View Lateral Head/C-Spine Posture C-Spine Flattened,Forward Head T-Spine Posture Flattened L-Spine Posture Flattened,Decreased Lordosis Hip Posture (L) Flexed,(R) Flexed Knee Posture (L) Genu Varus,(R) Genu Varus, (L) Ext. Tibial Torsion,(R) Ext. Tibial Torsion Ankle/Foot Posture (L) Pronated,(R) Pronated,(L) Calcaneal Eversion,(R) Calcaneal Eversion PT-OP-K Range of Motion Start: 10/19/23 11:59 Freq: Status: Active Protocol: Document 01/08/24 14:30 DCW (Rec: 01/08/24 14:39 DCW [id number]) Cervical Spine Range of Motion Cervical Spine Active Degrees Testing Position Sitting Flexion 50 Extension 35 Rotation Left 48 Rotation Right 50 Lateral Flexion Left 26 Lateral Flexion Right 18 Lumbar Spine Range of Motion Lumbar Spine Active Degrees Testing Position Standing Flexion 48 Extension 9 PT-OP-M Strength Start: 10/19/23 11:59 Freq: Status: Active Protocol: Document 01/08/24 14:30 DCW (Rec: 01/08/24 14:39 DCW [id number]) Hip Strength Hip Manual Muscle Testing Right Flexion (L2) 4+ Good+ Abduction 5 Normal Adduction 4+ Good+ Left Flexion (L2) 4 Good Abduction 5 Normal Adduction 4+ Good+ PT-OP-Q Treatments Start: 10/19/23 11:59 Freq: Status: Active Protocol: Document 01/08/24 14:30 DCW (Rec: 01/08/24 15:14 DCW [id number]) Manual Therapy Treatment Soft Tissue Mobilization Cervical Spine Body Location paraspinals, UT, Levator Mobilization Type Strumming,Sustained Pressure, Trigger Point Release Intensity/Depth Moderate Body Position Sitting Lumbar Body Location B Lumbar paraspinals Mobilization Type Strumming,Sustained Pressure Intensity/Depth Moderate Body Position Sitting PT-OP-T Assessment and Plan Start: 10/19/23 11:59 Freq: Status: Active Protocol: Document 01/08/24 14:30 DCW (Rec: 01/08/24 15:14 DCW [id number]) Physical Therapy Assessment Impairments Impairments Activity Tolerance,Balance, Edema,Functional Activities, Functional Mobility,Gait, Integument,Pain,Posture,ROM, Sensation,Soft Tissue Mobility ,Strength,Tone Goals Three Impairment Cervical rotation limited to 50? R and 37? L Halfway Goal (LTG) Right cervical rotation to improve to at least 50? in order to improve pt's ability to check for traffic while attempting to merge while driving LTG Duration 01/17/24 Two Impairment Pt ambulates 284' during Two Minute Walk Test Halfway Goal (LTG) Pt to demonstrate increased activity tolerance by completing a full 6MWT without a rest break, and demonstrates ability to ambulate >700' during the test LTG Duration 01/17/24 One Impairment Pt does not have an appropriate home exercise program Short Term Goal (STG) Pt to be independent and compliant with an appropriate HEP STG Duration 11/19/23 Assessment Summary Assessment Discharging due to change in medical status, upcoming spinal surgery. Physical Therapy Plan Frequency and Duration Frequency of Treatment 2x/Week Plan of Care Start Date 10/19/23 Plan of Care End Date 01/17/24 Discharge Physical Therapy Discharge Reasons Change in Medical Status Next Visit Focus/Plan Next Note Type Discharge Summary
== END 2024-01-17 10:16 | disposition home or self-care (01) ==
LOC: PHYS 14:30
PROVIDERS: Family Provider Internal Medicine; PCP Internal Medicine; Referring Provider Internal Medicine; Visit Provider Internal Medicine
DX: M47.812 Spondylosis without myelopathy or radiculopathy, cervical region (principal); R51.9 Headache, unspecified; G89.4 Chronic pain syndrome; M51.86 Other intervertebral disc disorders, lumbar region; R26.89 Other abnormalities of gait and mobility
CPT/HCPCS: 97110; 97140; 97163

== ENCOUNTER 2024-05-07 13:45 | Outpatient (RCR) | payer MEDICARE, MEDICAID, SELFPAY ==
[2024-02-04 14:35] VITALS: BMI 53.1
--- NOTE | 2024-04-16 15:04 | PT.OIE ---
Current Diagnoses Chronic pain syndrome (04/16/24) Spondylosis without myelopathy or radiculopathy, cervical region (04/16/24) Past Medical History (Last Updated 12/17/23 @ 14:57 by Jhon Taylor MD) Acquired hypothyroidism Allergic rhinitis Anemia Anemia due to blood loss, acute Arthritis Asthma BPH (benign prostatic hyperplasia) BPPV (benign paroxysmal positional vertigo) Bullous pemphigoid Cervicalgia Jvmilno-Eqnit-Wtyui disease Chronic diastolic CHF (congestive heart failure) Chronic dyspnea Chronic pain syndrome Chronic, continuous use of opioids Cobalamin deficiency COPD (chronic obstructive pulmonary disease) Degenerative arthritis of cervical spine Degenerative joint disease of knee Degenerative joint disease, ankle, foot, toe Diabetic neuropathy Eczematous dermatitis Essential hypertension Grief reaction Herniated nucleus pulposus with myelopathy, thoracic Herniated nucleus pulposus, L1-2 Herniated nucleus pulposus, L3-4 left History of migraine headaches HTN (hypertension) [facility] (current) use of insulin Major depression, recurrent Mixed hyperlipidemia Nephrolithiasis Non-pressure chronic ulcer of right heel and midfoot limited to breakdown of skin Obesity Opioid dependence, uncomplicated Phrenic nerve paralysis Recurrent sinusitis Right foot drop Right rotator cuff tendonitis Secondary hyperaldosteronism Sinusitis Spinal stenosis of lumbar region at multiple levels Type 2 diabetes mellitus with foot ulcer Type 2 diabetes mellitus with polyneuropathy Past Surgical History (Last Reviewed 12/17/23 @ 05:45 by Jhon Taylor MD) History of incision and drainage (04/15/21) History of nasal surgery History of spinal fusion Hx of foot surgery Hx of fusion of cervical spine Hx of hand surgery Hx of knee surgery Hx of thyroidectomy Visit Care Team Role Provider Type Jhon Taylor MD Attending Provider Physician Family Provider Primary Care Provider Referring Provider Specialty: Internal Medicine Address: [address] [place] [address], [facility] Email: [email or web address] Physical Therapy Initial Evaluation PT-OP-A Visit Information Start: 04/16/24 14:41 Freq: Status: Active Protocol: Document 04/16/24 12:00 DCW (Rec: 04/16/24 14:52 DCW [id number]) Out-Patient Physical Therapy Visit Information Visit Information Visit Type Initial Evaluation Visit Start Time 12:00 Visit Stop Time 12:45 Visit Number 1 Number of EFFICIENCY ENGINEER Visits 0 Evaluation Information Evaluation Date 04/16/24 PT-OP-B Current Condition Start: 04/16/24 14:41 Freq: Status: Active Protocol: Document 04/16/24 12:00 DCW (Rec: 04/16/24 15:04 DCW [id number]) Current Condition History of Current Condition Onset Date 6 weeks s/p thoracic surgery Current Complaints Stiffness, difficulty with gait History of Current Condition Pt is a 58 year old male very well known to this clinic presenting with a long- standing history of spinal problems. Pt is in the middle of undergoing multiple spinal surgeries/laminectomies to help decrease compression on his spinal cord. Pt is currently six weeks s/p thoracic endoscopic surgery, with planned lumbar fusions/ laminectomy on May 09, with cervical fusion planned for earlier next year. Pt presents today with ongoing improvement since surgery, better able to maintain upright posture when standing and walking, notes continues improvement since surgery. Hopeful to improve tone, strength, and mobility before next surgery. PT-OP-C Subjective Start: 04/16/24 14:41 Freq: Status: Active Protocol: Document 04/16/24 12:00 DCW (Rec: 04/16/24 14:52 DCW [id number]) OP-PT Subjective Patient Comments Patient Comments I've been improving consistently since about three weeks post-op. Patient Questionnaires Quick Dash- Upper Extremity Quick Dash UE Score 50% PT-OP-F Manual Assessment Start: 04/16/24 14:41 Freq: Status: Active Protocol: Document 04/16/24 12:00 DCW (Rec: 04/16/24 14:52 DCW [id number]) Manual Assessments Soft Tissue Assessment Soft Tissue Mobility Assessment Moderate tone R>L lumbar paraspinals, right upper trap, right subscapularis with tenderness to palpation 2/4: Pain with wincing PT-OP-G Mobility & Gait Start: 04/16/24 14:41 Freq: Status: Active Protocol: Document 04/16/24 12:00 DCW (Rec: 04/16/24 14:52 DCW [id number]) OP Gait Assessment Comments Gait Comments Ambulates with decreased foot clearance, using walking stick and mild forward trunk flexion PT-OP-J Posture/Palpation/Skin Start: 04/16/24 14:41 Freq: Status: Active Protocol: Document 04/16/24 12:00 DCW (Rec: 04/16/24 14:52 DCW [id number]) Posture Evaluation Position Standing Head/C-Spine Posture Forward Head L-Spine Posture Decreased Lordosis,Flexed Hip Posture (L) Flexed,(R) Flexed Knee Posture (L) Genu Varus,(R) Genu Varus Ankle/Foot Posture (R) Forefoot Abducted PT-OP-K Range of Motion Start: 04/16/24 14:41 Freq: Status: Active Protocol: Document 04/16/24 12:00 DCW (Rec: 04/16/24 14:52 DCW [id number]) Lumbar Spine Range of Motion Lumbar Spine Active Degrees Testing Position Standing Flexion 30 Extension 20 Lateral Flexion Left 69 Lateral Flexion Right 70 Comments Lateral flexion measured in cm from fingertips to floor PT-OP-Q Treatments Start: 04/16/24 14:41 Freq: Status: Active Protocol: Document 04/16/24 12:00 DCW (Rec: 04/16/24 14:52 DCW [id number]) Manual Therapy Treatment Consent Patient gave verbal consent for manual Yes treatment Soft Tissue Mobilization Parascapulars Body Location B Parascapulars Mobilization Type Strumming,Sustained Pressure, Trigger Point Release Intensity/Depth Moderate Body Position Prone Lumbar Body Location Lumbar Paraspinals Mobilization Type Strumming,Sustained Pressure, Trigger Point Release Intensity/Depth Moderate Body Position Prone PT-OP-T Assessment and Plan Start: 04/16/24 14:41 Freq: Status: Active Protocol: Document 04/16/24 12:00 DCW (Rec: 04/16/24 15:04 DCW [id number]) Physical Therapy Assessment Rehab Potential Rehabilitation Potential Fair Evaluation Complexity Number of Personal Factors/Comorbidities 3 or More Number of Body Systems Impaired 4 or More Clinical Presentation at Evaluation Unstable Impairments Impairments Activity Tolerance,Functional Activities,Functional Mobility ,Pain,Posture,ROM,Sensation, Soft Tissue Mobility,Strength, Tone Goals Two Impairment Limited lumbar ROM, measured at 30? flexion and 20? extension Shelter Goal (LTG) Pt to demonstrate improved lumbar mobility with an AROM of 45? flexion LTG Duration 05/09/24 One Impairment Pt does not have an appropriate home exercise program Short Term Goal (STG) Pt to be independent and compliant with an appropriate HEP STG Duration 04/29/24 Assessment Summary Assessment Pt presents with signs and symptoms consistent with referring diagnosis. Pt doing well with recovery s/p thoracic endoscopy, currently 24 days before lumbar fusion. Pt shows increased tone in low back, as well as decreased mobility, difficulty with posture, and decreased gait ability. Should benefit from skilled therapeutic intervention focusing on tone management, mobility, gait, and posture in order to prepare for next surgical intervention. Physical Therapy Plan Frequency and Duration Frequency of Treatment 2x/Week Plan of Care Start Date 04/16/24 Plan of Care End Date 05/16/24 Therapeutic Interventions Therapeutic Interventions Gait Training,Home Exercise Program,Joint Mobilizations, Manual Therapy,Neuromuscular Re-education,Patient/Caregiver Education,Self-Care/Home Management,Soft Tissue Mobilization,Therapeutic Activities,Therapeutic Exercises Modalities Cold Pack/Ice Massage,Electric Stimulation,Hot Packs, Ultrasound Next Visit Focus/Plan Next Note Type Treatment Note Next Visit Plan STM, posture training, gait challenges
--- NOTE | 2024-04-16 15:05 | PT.OPPOC ---
Physical, Occupational & Speech Therapy At [facility] Current Diagnoses Chronic pain syndrome (04/16/24) Spondylosis without myelopathy or radiculopathy, cervical region (04/16/24) Visit Care Team Role Provider Type Jhon Taylor MD Attending Provider Physician Family Provider Primary Care Provider Referring Provider Specialty: Internal Medicine Address: [address] [place] [address], [facility] Email: [email or web address] Plan Of Care PT-OP-B Current Condition Start: 04/16/24 14:41 Freq: Status: Active Protocol: Document 04/16/24 12:00 DCW (Rec: 04/16/24 15:04 DCW [id number]) Current Condition History of Current Condition Onset Date 6 weeks s/p thoracic surgery Current Complaints Stiffness, difficulty with gait History of Current Condition Pt is a 58 year old male very well known to this clinic presenting with a long- standing history of spinal problems. Pt is in the middle of undergoing multiple spinal surgeries/laminectomies to help decrease compression on his spinal cord. Pt is currently six weeks s/p thoracic endoscopic surgery, with planned lumbar fusions/ laminectomy on May 09, with cervical fusion planned for earlier next year. Pt presents today with ongoing improvement since surgery, better able to maintain upright posture when standing and walking, notes continues improvement since surgery. Hopeful to improve tone, strength, and mobility before next surgery. PT-OP-T Assessment and Plan Start: 04/16/24 14:41 Freq: Status: Active Protocol: Document 04/16/24 12:00 DCW (Rec: 04/16/24 15:04 DCW [id number]) Physical Therapy Assessment Rehab Potential Rehabilitation Potential Fair Evaluation Complexity Number of Personal Factors/Comorbidities 3 or More Number of Body Systems Impaired 4 or More Clinical Presentation at Evaluation Unstable Impairments Impairments Activity Tolerance,Functional Activities,Functional Mobility ,Pain,Posture,ROM,Sensation, Soft Tissue Mobility,Strength, Tone Goals Two Impairment Limited lumbar ROM, measured at 30? flexion and 20? extension Functional Tester Typewriters Goal (LTG) Pt to demonstrate improved lumbar mobility with an AROM of 45? flexion LTG Duration 05/09/24 One Impairment Pt does not have an appropriate home exercise program Short Term Goal (STG) Pt to be independent and compliant with an appropriate HEP STG Duration 04/29/24 Assessment Summary Assessment Pt presents with signs and symptoms consistent with referring diagnosis. Pt doing well with recovery s/p thoracic endoscopy, currently 24 days before lumbar fusion. Pt shows increased tone in low back, as well as decreased mobility, difficulty with posture, and decreased gait ability. Should benefit from skilled therapeutic intervention focusing on tone management, mobility, gait, and posture in order to prepare for next surgical intervention. Physical Therapy Plan Frequency and Duration Frequency of Treatment 2x/Week Plan of Care Start Date 04/16/24 Plan of Care End Date 05/16/24 Therapeutic Interventions Therapeutic Interventions Gait Training,Home Exercise Program,Joint Mobilizations, Manual Therapy,Neuromuscular Re-education,Patient/Caregiver Education,Self-Care/Home Management,Soft Tissue Mobilization,Therapeutic Activities,Therapeutic Exercises Modalities Cold Pack/Ice Massage,Electric Stimulation,Hot Packs, Ultrasound Next Visit Focus/Plan Next Note Type Treatment Note Next Visit Plan STM, posture training, gait challenges Plan of Care Dates Plan of Care Start Date 04/16/24 Plan of Care End Date 05/16/24 Electronically Signed by: Tong Card, PT 04/16/24 2478 If you are in agreement with this Plan of Care, please return a signed and dated copy. I have reviewed this Plan of Care and certify that the skilled therapy services above are required to meet the patient?s needs. Physician Signature Date Printed Name and Credentials Clinical Instructor Signature Printed Name and Credentials
--- NOTE | 2024-04-17 17:31 | PT.OTN ---
Current Diagnoses Chronic pain syndrome (04/17/24) Spondylosis without myelopathy or radiculopathy, cervical region (04/17/24) Physical Therapy Treatment Note PT-OP-A Visit Information Start: 04/16/24 14:41 Freq: Status: Active Protocol: Document 04/17/24 16:45 DCW (Rec: 04/17/24 17:31 DCW [id number]) Out-Patient Physical Therapy Visit Information Visit Information Visit Type Treatment Note Visit Start Time 16:45 Visit Stop Time 17:30 Visit Number 2 Number of JOINTER MACHINE Visits 0 Evaluation Information Evaluation Date 04/16/24 PT-OP-B Current Condition Start: 04/16/24 14:41 Freq: Status: Active Protocol: Document 04/16/24 12:00 DCW (Rec: 04/16/24 15:04 DCW [id number]) Current Condition History of Current Condition Onset Date 6 weeks s/p thoracic surgery Current Complaints Stiffness, difficulty with gait History of Current Condition Pt is a 58 year old male very well known to this clinic presenting with a long- standing history of spinal problems. Pt is in the middle of undergoing multiple spinal surgeries/laminectomies to help decrease compression on his spinal cord. Pt is currently six weeks s/p thoracic endoscopic surgery, with planned lumbar fusions/ laminectomy on May 09, with cervical fusion planned for earlier next year. Pt presents today with ongoing improvement since surgery, better able to maintain upright posture when standing and walking, notes continues improvement since surgery. Hopeful to improve tone, strength, and mobility before next surgery. PT-OP-C Subjective Start: 04/16/24 14:41 Freq: Status: Active Protocol: Document 04/17/24 16:45 DCW (Rec: 04/17/24 17:31 DCW [id number]) OP-PT Subjective Patient Comments Patient Comments Pt notes he was pretty sore following his last visit, but felt much better then next morning. PT-OP-F Manual Assessment Start: 04/16/24 14:41 Freq: Status: Active Protocol: Document 04/16/24 12:00 DCW (Rec: 04/16/24 14:52 DCW [id number]) Manual Assessments Soft Tissue Assessment Soft Tissue Mobility Assessment Moderate tone R>L lumbar paraspinals, right upper trap, right subscapularis with tenderness to palpation 2/4: Pain with wincing PT-OP-G Mobility & Gait Start: 04/16/24 14:41 Freq: Status: Active Protocol: Document 04/16/24 12:00 DCW (Rec: 04/16/24 14:52 DCW [id number]) OP Gait Assessment Comments Gait Comments Ambulates with decreased foot clearance, using walking stick and mild forward trunk flexion PT-OP-J Posture/Palpation/Skin Start: 04/16/24 14:41 Freq: Status: Active Protocol: Document 04/16/24 12:00 DCW (Rec: 04/16/24 14:52 DCW [id number]) Posture Evaluation Position Standing Head/C-Spine Posture Forward Head L-Spine Posture Decreased Lordosis,Flexed Hip Posture (L) Flexed,(R) Flexed Knee Posture (L) Genu Varus,(R) Genu Varus Ankle/Foot Posture (R) Forefoot Abducted PT-OP-K Range of Motion Start: 04/16/24 14:41 Freq: Status: Active Protocol: Document 04/16/24 12:00 DCW (Rec: 04/16/24 14:52 DCW [id number]) Lumbar Spine Range of Motion Lumbar Spine Active Degrees Testing Position Standing Flexion 30 Extension 20 Lateral Flexion Left 69 Lateral Flexion Right 70 Comments Lateral flexion measured in cm from fingertips to floor PT-OP-Q Treatments Start: 04/16/24 14:41 Freq: Status: Active Protocol: Document 04/17/24 16:45 DCW (Rec: 04/17/24 17:31 DCW [id number]) Manual Therapy Treatment Consent Patient gave verbal consent for manual Yes treatment Soft Tissue Mobilization Parascapulars Body Location B Parascapulars Mobilization Type Strumming,Sustained Pressure, Trigger Point Release Intensity/Depth Moderate Body Position Prone Lumbar Body Location Lumbar Paraspinals Mobilization Type Strumming,Sustained Pressure, Trigger Point Release Intensity/Depth Moderate Body Position Prone PT-OP-T Assessment and Plan Start: 04/16/24 14:41 Freq: Status: Active Protocol: Document 04/17/24 16:45 DCW (Rec: 04/17/24 17:31 DCW [id number]) Physical Therapy Assessment Impairments Impairments Activity Tolerance,Functional Activities,Functional Mobility ,Pain,Posture,ROM,Sensation, Soft Tissue Mobility,Strength, Tone Goals Two Impairment Limited lumbar ROM, measured at 30? flexion and 20? extension Mapping Technician Goal (LTG) Pt to demonstrate improved lumbar mobility with an AROM of 45? flexion LTG Duration 05/09/24 One Impairment Pt does not have an appropriate home exercise program Short Term Goal (STG) Pt to be independent and compliant with an appropriate HEP STG Duration 04/29/24 Assessment Summary Assessment Good response to STM today, noticeable improvement with tone vs pre-surgical therapy. Continue to focus on tone management, functional mobility, and stabilization. Physical Therapy Plan Frequency and Duration Frequency of Treatment 2x/Week Plan of Care Start Date 04/16/24 Plan of Care End Date 05/16/24 Therapeutic Interventions Therapeutic Interventions Gait Training,Home Exercise Program,Joint Mobilizations, Manual Therapy,Neuromuscular Re-education,Patient/Caregiver Education,Self-Care/Home Management,Soft Tissue Mobilization,Therapeutic Activities,Therapeutic Exercises Modalities Cold Pack/Ice Massage,Electric Stimulation,Hot Packs, Ultrasound Next Visit Focus/Plan Next Note Type Treatment Note Next Visit Plan STM, posture training, gait challenges
--- NOTE | 2024-04-23 12:33 | PT-OP ANOTE ---
Spoke with pt following no-show at 1200. Pt apologized, he got a text message reminder for his appointment on 04/25 at 1:45, and mis-understood, thinking his appointment for today (04/23/24) was 1:45.
--- NOTE | 2024-04-25 14:28 | PT.OTN ---
Current Diagnoses Chronic pain syndrome (04/25/24) Spondylosis without myelopathy or radiculopathy, cervical region (04/25/24) Physical Therapy Treatment Note PT-OP-A Visit Information Start: 04/16/24 14:41 Freq: Status: Active Protocol: Document 04/25/24 13:45 DCW (Rec: 04/25/24 14:28 DCW [id number]) Out-Patient Physical Therapy Visit Information Visit Information Visit Type Treatment Note Visit Start Time 13:45 Visit Stop Time 14:30 Visit Number 3 Number of BLOCKER HAND Visits 0 Evaluation Information Evaluation Date 04/16/24 PT-OP-B Current Condition Start: 04/16/24 14:41 Freq: Status: Active Protocol: Document 04/16/24 12:00 DCW (Rec: 04/16/24 15:04 DCW [id number]) Current Condition History of Current Condition Onset Date 6 weeks s/p thoracic surgery Current Complaints Stiffness, difficulty with gait History of Current Condition Pt is a 58 year old male very well known to this clinic presenting with a long- standing history of spinal problems. Pt is in the middle of undergoing multiple spinal surgeries/laminectomies to help decrease compression on his spinal cord. Pt is currently six weeks s/p thoracic endoscopic surgery, with planned lumbar fusions/ laminectomy on May 09, with cervical fusion planned for earlier next year. Pt presents today with ongoing improvement since surgery, better able to maintain upright posture when standing and walking, notes continues improvement since surgery. Hopeful to improve tone, strength, and mobility before next surgery. PT-OP-C Subjective Start: 04/16/24 14:41 Freq: Status: Active Protocol: Document 04/25/24 13:45 DCW (Rec: 04/25/24 14:28 DCW [id number]) OP-PT Subjective Patient Comments Patient Comments Pt feeling sore today. Neck is killing me, and th eback is really sore, too. PT-OP-F Manual Assessment Start: 04/16/24 14:41 Freq: Status: Active Protocol: Document 04/16/24 12:00 DCW (Rec: 04/16/24 14:52 DCW [id number]) Manual Assessments Soft Tissue Assessment Soft Tissue Mobility Assessment Moderate tone R>L lumbar paraspinals, right upper trap, right subscapularis with tenderness to palpation 2/4: Pain with wincing PT-OP-G Mobility & Gait Start: 04/16/24 14:41 Freq: Status: Active Protocol: Document 04/16/24 12:00 DCW (Rec: 04/16/24 14:52 DCW [id number]) OP Gait Assessment Comments Gait Comments Ambulates with decreased foot clearance, using walking stick and mild forward trunk flexion PT-OP-J Posture/Palpation/Skin Start: 04/16/24 14:41 Freq: Status: Active Protocol: Document 04/16/24 12:00 DCW (Rec: 04/16/24 14:52 DCW [id number]) Posture Evaluation Position Standing Head/C-Spine Posture Forward Head L-Spine Posture Decreased Lordosis,Flexed Hip Posture (L) Flexed,(R) Flexed Knee Posture (L) Genu Varus,(R) Genu Varus Ankle/Foot Posture (R) Forefoot Abducted PT-OP-K Range of Motion Start: 04/16/24 14:41 Freq: Status: Active Protocol: Document 04/16/24 12:00 DCW (Rec: 04/16/24 14:52 DCW [id number]) Lumbar Spine Range of Motion Lumbar Spine Active Degrees Testing Position Standing Flexion 30 Extension 20 Lateral Flexion Left 69 Lateral Flexion Right 70 Comments Lateral flexion measured in cm from fingertips to floor PT-OP-Q Treatments Start: 04/16/24 14:41 Freq: Status: Active Protocol: Document 04/25/24 13:45 DCW (Rec: 04/25/24 14:28 DCW [id number]) Manual Therapy Treatment Soft Tissue Mobilization Cervical Body Location B Upper Traps, Scalenes Parascapulars Body Location B Parascapulars Mobilization Type Strumming,Sustained Pressure, Trigger Point Release Intensity/Depth Moderate Body Position Prone Lumbar Body Location Lumbar Paraspinals Mobilization Type Strumming,Sustained Pressure, Trigger Point Release Intensity/Depth Moderate Body Position Prone Manual Traction Cervical Details Cervical Traction Body Position Supine PT-OP-T Assessment and Plan Start: 04/16/24 14:41 Freq: Status: Active Protocol: Document 04/25/24 13:45 DCW (Rec: 04/25/24 14:28 DCW [id number]) Physical Therapy Assessment Impairments Impairments Activity Tolerance,Functional Activities,Functional Mobility ,Pain,Posture,ROM,Sensation, Soft Tissue Mobility,Strength, Tone Goals Two Impairment Limited lumbar ROM, measured at 30? flexion and 20? extension Nursing Home Goal (LTG) Pt to demonstrate improved lumbar mobility with an AROM of 45? flexion LTG Duration 05/09/24 One Impairment Pt does not have an appropriate home exercise program Short Term Goal (STG) Pt to be independent and compliant with an appropriate HEP STG Duration 04/29/24 Assessment Summary Assessment Pt notes that his surgeon has now said he will need four more surgeries instead of the previously planned two. Good response to PT today. Physical Therapy Plan Frequency and Duration Frequency of Treatment 2x/Week Plan of Care Start Date 04/16/24 Plan of Care End Date 05/16/24 Therapeutic Interventions Therapeutic Interventions Gait Training,Home Exercise Program,Joint Mobilizations, Manual Therapy,Neuromuscular Re-education,Patient/Caregiver Education,Self-Care/Home Management,Soft Tissue Mobilization,Therapeutic Activities,Therapeutic Exercises Modalities Cold Pack/Ice Massage,Electric Stimulation,Hot Packs, Ultrasound Next Visit Focus/Plan Next Note Type Treatment Note Next Visit Plan STM, posture training, gait challenges
--- NOTE | 2024-04-29 14:35 | PT.OTN ---
Current Diagnoses Chronic pain syndrome (04/29/24) Spondylosis without myelopathy or radiculopathy, cervical region (04/29/24) Physical Therapy Treatment Note PT-OP-A Visit Information Start: 04/16/24 14:41 Freq: Status: Active Protocol: Document 04/29/24 13:45 DCW (Rec: 04/29/24 14:31 DCW [id number]) Out-Patient Physical Therapy Visit Information Visit Information Visit Type Treatment Note Visit Start Time 13:45 Visit Stop Time 14:30 Visit Number 4 Number of MANAGER BUSINESS MANAGEMENT Visits 0 Evaluation Information Evaluation Date 04/16/24 PT-OP-B Current Condition Start: 04/16/24 14:41 Freq: Status: Active Protocol: Document 04/16/24 12:00 DCW (Rec: 04/16/24 15:04 DCW [id number]) Current Condition History of Current Condition Onset Date 6 weeks s/p thoracic surgery Current Complaints Stiffness, difficulty with gait History of Current Condition Pt is a 58 year old male very well known to this clinic presenting with a long- standing history of spinal problems. Pt is in the middle of undergoing multiple spinal surgeries/laminectomies to help decrease compression on his spinal cord. Pt is currently six weeks s/p thoracic endoscopic surgery, with planned lumbar fusions/ laminectomy on May 09, with cervical fusion planned for earlier next year. Pt presents today with ongoing improvement since surgery, better able to maintain upright posture when standing and walking, notes continues improvement since surgery. Hopeful to improve tone, strength, and mobility before next surgery. PT-OP-C Subjective Start: 04/16/24 14:41 Freq: Status: Active Protocol: Document 04/29/24 13:45 DCW (Rec: 04/29/24 14:31 DCW [id number]) OP-PT Subjective Patient Comments Patient Comments I hurt. PT-OP-F Manual Assessment Start: 04/16/24 14:41 Freq: Status: Active Protocol: Document 04/16/24 12:00 DCW (Rec: 04/16/24 14:52 DCW [id number]) Manual Assessments Soft Tissue Assessment Soft Tissue Mobility Assessment Moderate tone R>L lumbar paraspinals, right upper trap, right subscapularis with tenderness to palpation 2/4: Pain with wincing PT-OP-G Mobility & Gait Start: 04/16/24 14:41 Freq: Status: Active Protocol: Document 04/16/24 12:00 DCW (Rec: 04/16/24 14:52 DCW [id number]) OP Gait Assessment Comments Gait Comments Ambulates with decreased foot clearance, using walking stick and mild forward trunk flexion PT-OP-J Posture/Palpation/Skin Start: 04/16/24 14:41 Freq: Status: Active Protocol: Document 04/16/24 12:00 DCW (Rec: 04/16/24 14:52 DCW [id number]) Posture Evaluation Position Standing Head/C-Spine Posture Forward Head L-Spine Posture Decreased Lordosis,Flexed Hip Posture (L) Flexed,(R) Flexed Knee Posture (L) Genu Varus,(R) Genu Varus Ankle/Foot Posture (R) Forefoot Abducted PT-OP-K Range of Motion Start: 04/16/24 14:41 Freq: Status: Active Protocol: Document 04/16/24 12:00 DCW (Rec: 04/16/24 14:52 DCW [id number]) Lumbar Spine Range of Motion Lumbar Spine Active Degrees Testing Position Standing Flexion 30 Extension 20 Lateral Flexion Left 69 Lateral Flexion Right 70 Comments Lateral flexion measured in cm from fingertips to floor PT-OP-Q Treatments Start: 04/16/24 14:41 Freq: Status: Active Protocol: Document 04/29/24 13:45 DCW (Rec: 04/29/24 14:31 DCW [id number]) Manual Therapy Treatment Consent Patient gave verbal consent for manual Yes treatment Soft Tissue Mobilization Cervical Body Location B Upper Traps, Scalenes Parascapulars Body Location B Parascapulars Mobilization Type Strumming,Sustained Pressure, Trigger Point Release Intensity/Depth Moderate Body Position Prone Lumbar Body Location Lumbar Paraspinals Mobilization Type Strumming,Sustained Pressure, Trigger Point Release Intensity/Depth Moderate Body Position Prone PT-OP-T Assessment and Plan Start: 04/16/24 14:41 Freq: Status: Active Protocol: Document 04/29/24 13:45 DCW (Rec: 04/29/24 14:31 DCW [id number]) Physical Therapy Assessment Impairments Impairments Activity Tolerance,Functional Activities,Functional Mobility ,Pain,Posture,ROM,Sensation, Soft Tissue Mobility,Strength, Tone Goals Two Impairment Limited lumbar ROM, measured at 30? flexion and 20? extension Transformation Consultant Goal (LTG) Pt to demonstrate improved lumbar mobility with an AROM of 45? flexion LTG Duration 05/09/24 One Impairment Pt does not have an appropriate home exercise program Short Term Goal (STG) Pt to be independent and compliant with an appropriate HEP STG Duration 04/29/24 Assessment Summary Assessment Good response to STM today, pt noted significant improvement in posture and ambulation ability. Physical Therapy Plan Frequency and Duration Frequency of Treatment 2x/Week Plan of Care Start Date 04/16/24 Plan of Care End Date 05/16/24 Therapeutic Interventions Therapeutic Interventions Gait Training,Home Exercise Program,Joint Mobilizations, Manual Therapy,Neuromuscular Re-education,Patient/Caregiver Education,Self-Care/Home Management,Soft Tissue Mobilization,Therapeutic Activities,Therapeutic Exercises Modalities Cold Pack/Ice Massage,Electric Stimulation,Hot Packs, Ultrasound Next Visit Focus/Plan Next Note Type Treatment Note Next Visit Plan STM, posture training, gait challenges
--- NOTE | 2024-05-02 14:28 | PT.OTN ---
Current Diagnoses Chronic pain syndrome (05/02/24) Spondylosis without myelopathy or radiculopathy, cervical region (05/02/24) Physical Therapy Treatment Note PT-OP-A Visit Information Start: 04/16/24 14:41 Freq: Status: Active Protocol: Document 05/02/24 13:45 DCW (Rec: 05/02/24 14:28 DCW [id number]) Out-Patient Physical Therapy Visit Information Visit Information Visit Type Treatment Note Visit Start Time 13:45 Visit Stop Time 14:30 Visit Number 5 Number of SOLAR APPLICATIONS DEVELOPMENT ENGINEER Visits 0 Evaluation Information Evaluation Date 04/16/24 PT-OP-B Current Condition Start: 04/16/24 14:41 Freq: Status: Active Protocol: Document 04/16/24 12:00 DCW (Rec: 04/16/24 15:04 DCW [id number]) Current Condition History of Current Condition Onset Date 6 weeks s/p thoracic surgery Current Complaints Stiffness, difficulty with gait History of Current Condition Pt is a 58 year old male very well known to this clinic presenting with a long- standing history of spinal problems. Pt is in the middle of undergoing multiple spinal surgeries/laminectomies to help decrease compression on his spinal cord. Pt is currently six weeks s/p thoracic endoscopic surgery, with planned lumbar fusions/ laminectomy on May 09, with cervical fusion planned for earlier next year. Pt presents today with ongoing improvement since surgery, better able to maintain upright posture when standing and walking, notes continues improvement since surgery. Hopeful to improve tone, strength, and mobility before next surgery. PT-OP-C Subjective Start: 04/16/24 14:41 Freq: Status: Active Protocol: Document 05/02/24 13:45 DCW (Rec: 05/02/24 14:28 DCW [id number]) OP-PT Subjective Patient Comments Patient Comments Pt admits he was quite sore after his last appointment, but about two days later, I felt much better. PT-OP-F Manual Assessment Start: 04/16/24 14:41 Freq: Status: Active Protocol: Document 04/16/24 12:00 DCW (Rec: 04/16/24 14:52 DCW [id number]) Manual Assessments Soft Tissue Assessment Soft Tissue Mobility Assessment Moderate tone R>L lumbar paraspinals, right upper trap, right subscapularis with tenderness to palpation 2/4: Pain with wincing PT-OP-G Mobility & Gait Start: 04/16/24 14:41 Freq: Status: Active Protocol: Document 04/16/24 12:00 DCW (Rec: 04/16/24 14:52 DCW [id number]) OP Gait Assessment Comments Gait Comments Ambulates with decreased foot clearance, using walking stick and mild forward trunk flexion PT-OP-J Posture/Palpation/Skin Start: 04/16/24 14:41 Freq: Status: Active Protocol: Document 04/16/24 12:00 DCW (Rec: 04/16/24 14:52 DCW [id number]) Posture Evaluation Position Standing Head/C-Spine Posture Forward Head L-Spine Posture Decreased Lordosis,Flexed Hip Posture (L) Flexed,(R) Flexed Knee Posture (L) Genu Varus,(R) Genu Varus Ankle/Foot Posture (R) Forefoot Abducted PT-OP-K Range of Motion Start: 04/16/24 14:41 Freq: Status: Active Protocol: Document 04/16/24 12:00 DCW (Rec: 04/16/24 14:52 DCW [id number]) Lumbar Spine Range of Motion Lumbar Spine Active Degrees Testing Position Standing Flexion 30 Extension 20 Lateral Flexion Left 69 Lateral Flexion Right 70 Comments Lateral flexion measured in cm from fingertips to floor PT-OP-Q Treatments Start: 04/16/24 14:41 Freq: Status: Active Protocol: Document 05/02/24 13:45 DCW (Rec: 05/02/24 14:28 DCW [id number]) Manual Therapy Treatment Consent Patient gave verbal consent for manual Yes treatment Soft Tissue Mobilization Cervical Body Location B Upper Traps, Scalenes Parascapulars Body Location B Parascapulars Mobilization Type Strumming,Sustained Pressure, Trigger Point Release Intensity/Depth Moderate Body Position Prone Lumbar Body Location Lumbar Paraspinals Mobilization Type Strumming,Sustained Pressure, Trigger Point Release Intensity/Depth Moderate Body Position Prone Manual Traction Cervical Details Cervical Traction Body Position Supine PT-OP-T Assessment and Plan Start: 04/16/24 14:41 Freq: Status: Active Protocol: Document 05/02/24 13:45 DCW (Rec: 05/02/24 14:28 DCW [id number]) Physical Therapy Assessment Impairments Impairments Activity Tolerance,Functional Activities,Functional Mobility ,Pain,Posture,ROM,Sensation, Soft Tissue Mobility,Strength, Tone Goals Two Impairment Limited lumbar ROM, measured at 30? flexion and 20? extension Nursing Home Goal (LTG) Pt to demonstrate improved lumbar mobility with an AROM of 45? flexion LTG Duration 05/09/24 One Impairment Pt does not have an appropriate home exercise program Short Term Goal (STG) Pt to be independent and compliant with an appropriate HEP STG Duration 04/29/24 Assessment Summary Assessment Pt able to ambulate with minimal side-bend following today's session, improvement vs when he entered clinic today. Prepping for surgery next week. Physical Therapy Plan Frequency and Duration Frequency of Treatment 2x/Week Plan of Care Start Date 04/16/24 Plan of Care End Date 05/16/24 Therapeutic Interventions Therapeutic Interventions Gait Training,Home Exercise Program,Joint Mobilizations, Manual Therapy,Neuromuscular Re-education,Patient/Caregiver Education,Self-Care/Home Management,Soft Tissue Mobilization,Therapeutic Activities,Therapeutic Exercises Modalities Cold Pack/Ice Massage,Electric Stimulation,Hot Packs, Ultrasound Next Visit Focus/Plan Next Note Type Treatment Note Next Visit Plan STM, posture training, gait challenges
--- NOTE | 2024-05-05 14:30 | PT.OTN ---
Current Diagnoses Chronic pain syndrome (05/05/24) Spondylosis without myelopathy or radiculopathy, cervical region (05/05/24) Physical Therapy Treatment Note PT-OP-A Visit Information Start: 04/16/24 14:41 Freq: Status: Active Protocol: Document 05/05/24 13:48 DCW (Rec: 05/05/24 14:29 DCW [id number]) Out-Patient Physical Therapy Visit Information Visit Information Visit Type Treatment Note Visit Start Time 13:48 Visit Stop Time 14:30 Visit Number 6 Number of MAORI LIAISON ADVISER Visits 0 Evaluation Information Evaluation Date 04/16/24 PT-OP-B Current Condition Start: 04/16/24 14:41 Freq: Status: Active Protocol: Document 04/16/24 12:00 DCW (Rec: 04/16/24 15:04 DCW [id number]) Current Condition History of Current Condition Onset Date 6 weeks s/p thoracic surgery Current Complaints Stiffness, difficulty with gait History of Current Condition Pt is a 58 year old male very well known to this clinic presenting with a long- standing history of spinal problems. Pt is in the middle of undergoing multiple spinal surgeries/laminectomies to help decrease compression on his spinal cord. Pt is currently six weeks s/p thoracic endoscopic surgery, with planned lumbar fusions/ laminectomy on May 09, with cervical fusion planned for earlier next year. Pt presents today with ongoing improvement since surgery, better able to maintain upright posture when standing and walking, notes continues improvement since surgery. Hopeful to improve tone, strength, and mobility before next surgery. PT-OP-C Subjective Start: 04/16/24 14:41 Freq: Status: Active Protocol: Document 05/05/24 13:48 DCW (Rec: 05/05/24 14:29 DCW [id number]) OP-PT Subjective Patient Comments Patient Comments Except for the back, feeling pretty good. [place] really good following appointment on Sunday. PT-OP-F Manual Assessment Start: 04/16/24 14:41 Freq: Status: Active Protocol: Document 04/16/24 12:00 DCW (Rec: 04/16/24 14:52 DCW [id number]) Manual Assessments Soft Tissue Assessment Soft Tissue Mobility Assessment Moderate tone R>L lumbar paraspinals, right upper trap, right subscapularis with tenderness to palpation 2/4: Pain with wincing PT-OP-G Mobility & Gait Start: 04/16/24 14:41 Freq: Status: Active Protocol: Document 04/16/24 12:00 DCW (Rec: 04/16/24 14:52 DCW [id number]) OP Gait Assessment Comments Gait Comments Ambulates with decreased foot clearance, using walking stick and mild forward trunk flexion PT-OP-J Posture/Palpation/Skin Start: 04/16/24 14:41 Freq: Status: Active Protocol: Document 04/16/24 12:00 DCW (Rec: 04/16/24 14:52 DCW [id number]) Posture Evaluation Position Standing Head/C-Spine Posture Forward Head L-Spine Posture Decreased Lordosis,Flexed Hip Posture (L) Flexed,(R) Flexed Knee Posture (L) Genu Varus,(R) Genu Varus Ankle/Foot Posture (R) Forefoot Abducted PT-OP-K Range of Motion Start: 04/16/24 14:41 Freq: Status: Active Protocol: Document 04/16/24 12:00 DCW (Rec: 04/16/24 14:52 DCW [id number]) Lumbar Spine Range of Motion Lumbar Spine Active Degrees Testing Position Standing Flexion 30 Extension 20 Lateral Flexion Left 69 Lateral Flexion Right 70 Comments Lateral flexion measured in cm from fingertips to floor PT-OP-Q Treatments Start: 04/16/24 14:41 Freq: Status: Active Protocol: Document 05/05/24 13:48 DCW (Rec: 05/05/24 14:29 DCW [id number]) Manual Therapy Treatment Consent Patient gave verbal consent for manual Yes treatment Soft Tissue Mobilization Parascapulars Body Location B Parascapulars Mobilization Type Strumming,Sustained Pressure, Trigger Point Release Intensity/Depth Moderate Body Position Prone Lumbar Body Location Lumbar Paraspinals Mobilization Type Strumming,Sustained Pressure, Trigger Point Release Intensity/Depth Moderate Body Position Prone Manual Traction Cervical Details Cervical Traction Body Position Supine PT-OP-T Assessment and Plan Start: 04/16/24 14:41 Freq: Status: Active Protocol: Document 05/05/24 13:48 DCW (Rec: 05/05/24 14:29 DCW [id number]) Physical Therapy Assessment Impairments Impairments Activity Tolerance,Functional Activities,Functional Mobility ,Pain,Posture,ROM,Sensation, Soft Tissue Mobility,Strength, Tone Goals Two Impairment Limited lumbar ROM, measured at 30? flexion and 20? extension Motor Scooter Mechanic Goal (LTG) Pt to demonstrate improved lumbar mobility with an AROM of 45? flexion LTG Duration 05/09/24 One Impairment Pt does not have an appropriate home exercise program Short Term Goal (STG) Pt to be independent and compliant with an appropriate HEP STG Duration 04/29/24 Assessment Summary Assessment Pt tolerating treatment well, will be discharging following his next visit due to upcoming surgery. Physical Therapy Plan Frequency and Duration Frequency of Treatment 2x/Week Plan of Care Start Date 04/16/24 Plan of Care End Date 05/16/24 Therapeutic Interventions Therapeutic Interventions Gait Training,Home Exercise Program,Joint Mobilizations, Manual Therapy,Neuromuscular Re-education,Patient/Caregiver Education,Self-Care/Home Management,Soft Tissue Mobilization,Therapeutic Activities,Therapeutic Exercises Modalities Cold Pack/Ice Massage,Electric Stimulation,Hot Packs, Ultrasound Next Visit Focus/Plan Next Note Type Treatment Note Next Visit Plan STM, posture training, gait challenges
--- NOTE | 2024-05-07 14:26 | PT.OTN ---
Current Diagnoses Chronic pain syndrome (05/07/24) Spondylosis without myelopathy or radiculopathy, cervical region (05/07/24) Physical Therapy Treatment Note PT-OP-A Visit Information Start: 04/16/24 14:41 Freq: Status: Active Protocol: Document 05/07/24 13:45 DCW (Rec: 05/07/24 14:26 DCW [id number]) Out-Patient Physical Therapy Visit Information Visit Information Visit Type Discharge Summary Visit Start Time 13:45 Visit Stop Time 14:30 Visit Number 7 Number of CROP SPECIALIST Visits 0 Evaluation Information Evaluation Date 04/16/24 PT-OP-B Current Condition Start: 04/16/24 14:41 Freq: Status: Active Protocol: Document 04/16/24 12:00 DCW (Rec: 04/16/24 15:04 DCW [id number]) Current Condition History of Current Condition Onset Date 6 weeks s/p thoracic surgery Current Complaints Stiffness, difficulty with gait History of Current Condition Pt is a 58 year old male very well known to this clinic presenting with a long- standing history of spinal problems. Pt is in the middle of undergoing multiple spinal surgeries/laminectomies to help decrease compression on his spinal cord. Pt is currently six weeks s/p thoracic endoscopic surgery, with planned lumbar fusions/ laminectomy on May 09, with cervical fusion planned for earlier next year. Pt presents today with ongoing improvement since surgery, better able to maintain upright posture when standing and walking, notes continues improvement since surgery. Hopeful to improve tone, strength, and mobility before next surgery. PT-OP-C Subjective Start: 04/16/24 14:41 Freq: Status: Active Protocol: Document 05/07/24 13:45 DCW (Rec: 05/07/24 14:26 DCW [id number]) OP-PT Subjective Patient Comments Patient Comments Pt prepping for surgery on Sunday, will be discharged from PT at this time. PT-OP-F Manual Assessment Start: 04/16/24 14:41 Freq: Status: Active Protocol: Document 04/16/24 12:00 DCW (Rec: 04/16/24 14:52 DCW [id number]) Manual Assessments Soft Tissue Assessment Soft Tissue Mobility Assessment Moderate tone R>L lumbar paraspinals, right upper trap, right subscapularis with tenderness to palpation 2/4: Pain with wincing PT-OP-G Mobility & Gait Start: 04/16/24 14:41 Freq: Status: Active Protocol: Document 04/16/24 12:00 DCW (Rec: 04/16/24 14:52 DCW [id number]) OP Gait Assessment Comments Gait Comments Ambulates with decreased foot clearance, using walking stick and mild forward trunk flexion PT-OP-J Posture/Palpation/Skin Start: 04/16/24 14:41 Freq: Status: Active Protocol: Document 04/16/24 12:00 DCW (Rec: 04/16/24 14:52 DCW [id number]) Posture Evaluation Position Standing Head/C-Spine Posture Forward Head L-Spine Posture Decreased Lordosis,Flexed Hip Posture (L) Flexed,(R) Flexed Knee Posture (L) Genu Varus,(R) Genu Varus Ankle/Foot Posture (R) Forefoot Abducted PT-OP-K Range of Motion Start: 04/16/24 14:41 Freq: Status: Active Protocol: Document 04/16/24 12:00 DCW (Rec: 04/16/24 14:52 DCW [id number]) Lumbar Spine Range of Motion Lumbar Spine Active Degrees Testing Position Standing Flexion 30 Extension 20 Lateral Flexion Left 69 Lateral Flexion Right 70 Comments Lateral flexion measured in cm from fingertips to floor PT-OP-Q Treatments Start: 04/16/24 14:41 Freq: Status: Active Protocol: Document 05/07/24 13:45 DCW (Rec: 05/07/24 14:26 DCW [id number]) Manual Therapy Treatment Consent Patient gave verbal consent for manual Yes treatment Soft Tissue Mobilization Parascapulars Body Location B Parascapulars Mobilization Type Strumming,Sustained Pressure, Trigger Point Release Intensity/Depth Moderate Body Position Prone Lumbar Body Location Lumbar Paraspinals Mobilization Type Strumming,Sustained Pressure, Trigger Point Release Intensity/Depth Moderate Body Position Prone PT-OP-T Assessment and Plan Start: 04/16/24 14:41 Freq: Status: Active Protocol: Document 05/07/24 13:45 DCW (Rec: 05/07/24 14:26 DCW [id number]) Physical Therapy Assessment Impairments Impairments Activity Tolerance,Functional Activities,Functional Mobility ,Pain,Posture,ROM,Sensation, Soft Tissue Mobility,Strength, Tone Goals Two Impairment Limited lumbar ROM, measured at 30? flexion and 20? extension Group Home Goal (LTG) Pt to demonstrate improved lumbar mobility with an AROM of 45? flexion LTG Duration 05/09/24 One Impairment Pt does not have an appropriate home exercise program Short Term Goal (STG) Pt to be independent and compliant with an appropriate HEP STG Duration 04/29/24 Assessment Summary Assessment Pt undergoing surgery in two days. Will be discharged from skilled PT at this time secondary to change in medical status. Will require a new referral in order to return to PT in the future. Physical Therapy Plan Frequency and Duration Frequency of Treatment 2x/Week Plan of Care Start Date 04/16/24 Plan of Care End Date 05/16/24 Therapeutic Interventions Therapeutic Interventions Gait Training,Home Exercise Program,Joint Mobilizations, Manual Therapy,Neuromuscular Re-education,Patient/Caregiver Education,Self-Care/Home Management,Soft Tissue Mobilization,Therapeutic Activities,Therapeutic Exercises Modalities Cold Pack/Ice Massage,Electric Stimulation,Hot Packs, Ultrasound Discharge Physical Therapy Discharge Reasons Change in Medical Status Next Visit Focus/Plan Next Note Type Discharge Summary
== END 2024-05-08 14:01 | disposition home or self-care (01) ==
LOC: PHYS 13:45
PROVIDERS: Family Provider Internal Medicine; PCP Internal Medicine; Referring Provider Internal Medicine; Visit Provider Internal Medicine
DX: G89.4 Chronic pain syndrome (principal); M47.812 Spondylosis without myelopathy or radiculopathy, cervical region
CPT/HCPCS: 97140; 97163

== ENCOUNTER → 2024-05-26 12:17 | Outpatient (CLI) | payer MEDICARE, MEDICAID, SELFPAY ==
[2024-02-04 14:35] VITALS: BMI 53.1
[2024-05-26 14:32] LABS: Hemoglobin A1C% w Est Avg Glu 6.6 % (4.0-6.0)
[2024-05-26 14:34] LABS: Add Manual Diff / Slide Review NO; Basophils Absolute Auto 0 /uL (0-100); Basophils Percent Auto 0.6 % (0-2); Eosinophils Absolute Auto 100 /uL (0-450); Eosinophils Percent Auto 1.1 % (2-4); Hematocrit 36.6 % (41-53); Hemoglobin 12.1 g/dL (13.5-17.5); Lymphocytes Absolute Auto 1500 /uL (1100-4500); Lymphocytes Percent Auto 19.4 % (25-40); Mean Corpuscular Hemoglobin 28.9 PG (26-34); Mean Corpuscular Volume 87.3 fL (80-100); Monocytes Absolute Auto 900 /uL (0-900); Neutrophils Absolute Auto 5300 /uL (1500-7000); Neutrophils Percent Auto 67.9 % (50-75); Platelet Count 419 X10^3/uL (150-400); Red Blood Cell Count 4.19 X10^6/uL (4.5-5.9); Red Cell Distribution Width 15.5 % (11.6-14.8); White Blood Cell Count 7.7 X10^3/uL (4.5-11.0)
[2024-05-26 14:55] LABS: Alanine Aminotransferase 32 IU/L (<50); Albumin 4.5 g/dL (3.5-5.0); Albumin Globulin Ratio 1.6 (1.0-2.8); Alkaline Phosphatase 86 U/L (38-126); Aspartate Aminotransferase 32 IU/L (17-59); BUN Creatinine Ratio 17.7 (6-22); Bilirubin Total 0.4 mg/dL (0.2-1.3); Blood Urea Nitrogen 14 mg/dL (9-20); C-Reactive Protein Quant 1.4 mg/dL (<1.0); Calcium 9.5 mg/dL (8.4-10.2); Carbon Dioxide 27 mmol/L (22-32); Chloride 100 mmol/L (98-107); Estimated Glomerular Filt Rate > 60 mL/min (>60); Globulin 2.9 g/dL (1.7-4.1); Glucose 166 mg/dL (70-100); HEMOLYSIS < 15 (0-50); Potassium 4.8 mmol/L (3.4-5.1); Sodium 137 mmol/L (137-145); Total Protein 7.4 g/dL (6.3-8.2)
[2024-05-26 15:09] LABS: Rheumatoid Factor < 8.6 IU/mL (<12.0)
[2024-05-26 15:10] LABS: Erythrocyte Sedimentation Rate 33 MM/HR (0-15)
[2024-05-26 15:18] LABS: TSH w/ Reflex to FT4 0.13 uIU/mL (0.47-4.68)
[2024-05-26 17:34] LABS: Free T4, Direct Thyroxine 0.93 ng/dL (0.78-2.19)
== END ==
PROVIDERS: Family Provider Internal Medicine; PCP Internal Medicine; Referring Provider Internal Medicine Rheumatology; Visit Provider Internal Medicine Rheumatology
DX: M06.4 Inflammatory polyarthropathy (principal); E11.621 Type 2 diabetes mellitus with foot ulcer; L12.30 Acquired epidermolysis bullosa, unspecified; M25.50 Pain in unspecified joint; L97.509 Non-pressure chronic ulcer of other part of unspecified foot with unspecified severity; E11.40 Type 2 diabetes mellitus with diabetic neuropathy, unspecified; E03.9 Hypothyroidism, unspecified
CPT/HCPCS: 36415; 80053; 81374; 83036; 84439; 84443; 85025; 85651; 86038; 86140; 86200; 86430

== ENCOUNTER 2024-09-08 14:30 | Outpatient (RCR) | payer MEDICARE, MEDICAID, SELFPAY ==
[2024-02-04 14:35] VITALS: BMI 53.1
--- NOTE | 2024-06-26 16:00 | PT.OIE ---
Current Diagnoses Stiffness of right shoulder, not elsewhere classified (06/26/24) Stiffness of other specified joint, not elsewhere classified (06/26/24) Other spondylosis with myelopathy, thoracic region (06/26/24) Past Medical History (Last Reviewed 05/26/24 @ 11:07 by Jhon Taylor MD) Acquired hypothyroidism Allergic rhinitis Anemia Anemia due to blood loss, acute Arthritis Asthma BPH (benign prostatic hyperplasia) BPPV (benign paroxysmal positional vertigo) Bullous pemphigoid Cervicalgia Mijqkei-Ynjbx-Qfuqk disease Chronic diastolic CHF (congestive heart failure) Chronic dyspnea Chronic pain syndrome Chronic, continuous use of opioids Cobalamin deficiency COPD (chronic obstructive pulmonary disease) Degenerative arthritis of cervical spine Degenerative joint disease of knee Degenerative joint disease, ankle, foot, toe Diabetic neuropathy Eczematous dermatitis Essential hypertension Grief reaction Herniated nucleus pulposus with myelopathy, thoracic Herniated nucleus pulposus, L1-2 Herniated nucleus pulposus, L3-4 left History of migraine headaches HTN (hypertension) group home (current) use of insulin Major depression, recurrent Mixed hyperlipidemia Nephrolithiasis Non-pressure chronic ulcer of right heel and midfoot limited to breakdown of skin Obesity Opioid dependence, uncomplicated Phrenic nerve paralysis Recurrent sinusitis Right foot drop Right rotator cuff tendonitis Secondary hyperaldosteronism Sinusitis Spinal stenosis of lumbar region at multiple levels Type 2 diabetes mellitus with foot ulcer Type 2 diabetes mellitus with polyneuropathy Past Surgical History (Last Reviewed 05/26/24 @ 11:07 by Jhon Taylor MD) History of incision and drainage (04/15/21) History of nasal surgery History of spinal fusion Hx of foot surgery Hx of fusion of cervical spine Hx of hand surgery Hx of knee surgery Hx of thyroidectomy Visit Care Team Role Provider Type Jhon Taylor MD Family Provider Physician Primary Care Provider Specialty: Internal Medicine Address: [address] [place] [address], [id number] Email: [email or web address] DRE Lema Attending Provider Non-Staff Referring Provider Specialty: Nursing Address: [address] [place] [address], [address] Fax: Email: Physical Therapy Initial Evaluation PT-OP-A Visit Information Start: 06/26/24 17:48 Freq: Status: Active Protocol: Document 06/26/24 15:15 DCW (Rec: 06/26/24 17:51 DCW [id number]) Out-Patient Physical Therapy Visit Information Visit Information Visit Type Initial Evaluation Visit Start Time 15:15 Visit Stop Time 16:00 Visit Number 1 Number of CRITICAL CARE EDUCATOR Visits 0 Evaluation Information Evaluation Date 06/26/24 PT-OP-B Current Condition Start: 06/26/24 17:48 Freq: Status: Active Protocol: Document 06/26/24 15:15 DCW (Rec: 06/27/24 08:43 DCW [id number]) Current Condition History of Current Condition Onset Date 05/09/24 Current Complaints Increased tone/stiffness along spine, difficulty standing upright, pain History of Current Condition Pt is a 59 year old male very well known to this clinic presenting seven weeks s/p thoracic spine surgery. Pt had a thoracic laminectomy and two miladis placed in his thoracic spine, fusing five vertebrae. This is in addition to multiple other spinal surgeries, including cervical fusion and a recent thoracic endoscopic surgery to prep for this most recent surgery. Pt is in the middle of multiple planned surgeries working to decrease compression on his spinal cord. Next planned surgery is a lumbar surgery, however pt does not know when this will be, reports he has a follow-up Jul 22 for planning . Notes that since his most recent surgery, he has been noticing increase in sensations in his legs and around his torso. Current complaints are muscle tightness, particularly in his right neck, lower right thoracic musculature, and right lumbar paraspinals. Pt often leans to the right in standing or sitting due to tightness, which worsens balance. Ambulates with a SPC, wears heavily altered shoes from local orthotic clinic, which has helped pt from repeated inversion sprains. Treatment Goals Patient/Caregiver Goals Pt's goal is to walk without pain, perform ADLs independently, and stand up straighter. PT-OP-C Subjective Start: 06/26/24 17:48 Freq: Status: Active Protocol: Document 06/26/24 15:15 DCW (Rec: 06/26/24 17:51 DCW [id number]) OP-PT Subjective Patient Comments Patient Comments I've really been looking forward to getting back in here. Patient Questionnaires Oswestry Low Back Index Oswestry Score 31/50 = 62% Oswestry Impairment 20 to 39% Impaired (Score 20- 39) PT-OP-F Manual Assessment Start: 06/26/24 17:48 Freq: Status: Active Protocol: Document 06/26/24 15:15 DCW (Rec: 06/27/24 08:49 DCW [id number]) Manual Assessments Soft Tissue Assessment Soft Tissue Mobility Assessment Moderate tone right upper trap , scalenes. Moderate-severe tone in distal right lat/ serratus posterior, posterior external obliques PT-OP-K Range of Motion Start: 06/26/24 17:48 Freq: Status: Active Protocol: Document 06/26/24 15:15 DCW (Rec: 06/27/24 08:49 DCW [id number]) Cervical Spine Range of Motion Cervical Spine Active Degrees Testing Position Sitting Flexion 40 Extension 16 Rotation Left 32 Rotation Right 38 Lateral Flexion Left 30 Lateral Flexion Right 10 ROM Limitations Bony Restriction,Pain PT-OP-L Special Tests Start: 06/26/24 17:48 Freq: Status: Active Protocol: Document 06/26/24 15:15 DCW (Rec: 06/27/24 08:49 DCW [id number]) Special Tests Cervical Spine Special Tests Foraminal Compression Test Results Negative Lumbar Spine Special Tests Straight Leg Raise Test Results Moderate Bilateral pain, R 55? , L 70? PT-OP-Q Treatments Start: 06/26/24 17:48 Freq: Status: Active Protocol: Document 06/26/24 15:15 DCW (Rec: 06/27/24 08:49 DCW [id number]) Manual Therapy Treatment Consent Patient gave verbal consent for manual Yes treatment Soft Tissue Mobilization Upper Trap Body Location R upper trap, scalenes Mobilization Type Sustained Pressure,Trigger Point Release Intensity/Depth Moderate Body Position Supine PT-OP-T Assessment and Plan Start: 06/26/24 17:48 Freq: Status: Active Protocol: Document 06/26/24 15:15 DCW (Rec: 06/27/24 10:39 DCW [id number]) Physical Therapy Assessment Rehab Potential Rehabilitation Potential Fair Evaluation Complexity Number of Personal Factors/Comorbidities 3 or More Number of Body Systems Impaired 4 or More Clinical Presentation at Evaluation Unstable Impairments Impairments Activity Tolerance,Functional Activities,Functional Mobility ,Pain,Posture,ROM,Soft Tissue Mobility,Strength,Tone Goals Three Impairment SLR limited to 55? on R with lumbar pain due to increased muscle tone Study Specialist Goal (LTG) Pt to exhibit a passive SLR to >70? bilaterally without pain in order to demonstrate improve flexibility of lumbar musculature and hamstring to improve functional mobility. LTG Duration 09/24/24 Two Impairment Pt leans to R in sitting or standing 70% of the time to decrease tension Shelter Goal (LTG) Pt to sit and stand with an upright posture 60% of the time without cues in order to demonstrate improved posture and decreased right-sided tone LTG Duration 09/24/24 One Impairment Pt does not have an appropriate home exercise program Short Term Goal (STG) Pt to be independent and compliant with an appropriate HEP STG Duration 07/26/24 Assessment Summary Assessment Pt presents with signs and symptoms consistent with referring diagnosis seven weeks s/p thoracic surgery. Pt exhibits increased cervical, thoracic, and lumbar soft tissue tone, R>L. Creates right-sided pull/lean most of the time as pt attempts to decrease tension. Pt recovering well from surgery, incision C,D,I. Pt will likely benefit from skilled therapeutic intervention as he recovers from surgery, with focus on decreased tone, improving strength, flexibility, and posture, as well as improving functional mobility. Rehab will likely be interrupted in the future with planned lumbar surgery in the upcoming year. Physical Therapy Plan Frequency and Duration Frequency of Treatment 2x/Week Plan of Care Start Date 06/26/24 Plan of Care End Date 09/24/24 Therapeutic Interventions Therapeutic Interventions Home Exercise Program,Joint Mobilizations,Manual Therapy, Neuromuscular Re-education, Patient/Caregiver Education, Self-Care/Home Management,Soft Tissue Mobilization,Taping, Therapeutic Activities, Therapeutic Exercises Modalities Cold Pack/Ice Massage,Hot Packs Next Visit Focus/Plan Next Note Type Treatment Note Next Visit Plan STM/joint mobs, core strengthening
--- NOTE | 2024-06-26 16:01 | PT.OPPOC ---
Physical, Occupational & Speech Therapy At [facility] Current Diagnoses Stiffness of right shoulder, not elsewhere classified (06/26/24) Stiffness of other specified joint, not elsewhere classified (06/26/24) Other spondylosis with myelopathy, thoracic region (06/26/24) Visit Care Team Role Provider Type Jhon Taylor MD Family Provider Physician Primary Care Provider Specialty: Internal Medicine Address: [address] [place] [address], [id number] Email: [email or web address] DRE Lema Attending Provider Non-Staff Referring Provider Specialty: Nursing Address: [address] [place] [address], [address] Fax: Email: Plan Of Care PT-OP-B Current Condition Start: 06/26/24 17:48 Freq: Status: Active Protocol: Document 06/26/24 15:15 DCW (Rec: 06/27/24 08:43 DCW [id number]) Current Condition History of Current Condition Onset Date 05/09/24 Current Complaints Increased tone/stiffness along spine, difficulty standing upright, pain History of Current Condition Pt is a 59 year old male very well known to this clinic presenting seven weeks s/p thoracic spine surgery. Pt had a thoracic laminectomy and two miladis placed in his thoracic spine, fusing five vertebrae. This is in addition to multiple other spinal surgeries, including cervical fusion and a recent thoracic endoscopic surgery to prep for this most recent surgery. Pt is in the middle of multiple planned surgeries working to decrease compression on his spinal cord. Next planned surgery is a lumbar surgery, however pt does not know when this will be, reports he has a follow-up Jul 22 for planning . Notes that since his most recent surgery, he has been noticing increase in sensations in his legs and around his torso. Current complaints are muscle tightness, particularly in his right neck, lower right thoracic musculature, and right lumbar paraspinals. Pt often leans to the right in standing or sitting due to tightness, which worsens balance. Ambulates with a SPC, wears heavily altered shoes from local orthotic clinic, which has helped pt from repeated inversion sprains. Treatment Goals Patient/Caregiver Goals Pt's goal is to walk without pain, perform ADLs independently, and stand up straighter. PT-OP-T Assessment and Plan Start: 06/26/24 17:48 Freq: Status: Active Protocol: Document 06/26/24 15:15 DCW (Rec: 06/27/24 10:39 DCW [id number]) Physical Therapy Assessment Rehab Potential Rehabilitation Potential Fair Evaluation Complexity Number of Personal Factors/Comorbidities 3 or More Number of Body Systems Impaired 4 or More Clinical Presentation at Evaluation Unstable Impairments Impairments Activity Tolerance,Functional Activities,Functional Mobility ,Pain,Posture,ROM,Soft Tissue Mobility,Strength,Tone Goals Three Impairment SLR limited to 55? on R with lumbar pain due to increased muscle tone Rug Frame Mounter Goal (LTG) Pt to exhibit a passive SLR to >70? bilaterally without pain in order to demonstrate improve flexibility of lumbar musculature and hamstring to improve functional mobility. LTG Duration 09/24/24 Two Impairment Pt leans to R in sitting or standing 70% of the time to decrease tension Correction Goal (LTG) Pt to sit and stand with an upright posture 60% of the time without cues in order to demonstrate improved posture and decreased right-sided tone LTG Duration 09/24/24 One Impairment Pt does not have an appropriate home exercise program Short Term Goal (STG) Pt to be independent and compliant with an appropriate HEP STG Duration 07/26/24 Assessment Summary Assessment Pt presents with signs and symptoms consistent with referring diagnosis seven weeks s/p thoracic surgery. Pt exhibits increased cervical, thoracic, and lumbar sodt tissue tone, R>L. Creates right-sided pull/lean most of the time as pt attempts to decrease tension. Pt recovering well from surgery, incision C,D,I. Pt will likely benefit from skilled therapeutic intervention as he recovers from surgery, with focus on decreased tone, improving strength, flexibility, and posture, as well as improving functional mobility. Rehab will likely be interrupted in the future with planned lumbar surgery in the upcoming year. Physical Therapy Plan Frequency and Duration Frequency of Treatment 2x/Week Plan of Care Start Date 06/26/24 Plan of Care End Date 09/24/24 Therapeutic Interventions Therapeutic Interventions Home Exercise Program,Joint Mobilizations,Manual Therapy, Neuromuscular Re-education, Patient/Caregiver Education, Self-Care/Home Management,Soft Tissue Mobilization,Taping, Therapeutic Activities, Therapeutic Exercises Modalities Cold Pack/Ice Massage,Hot Packs Next Visit Focus/Plan Next Note Type Treatment Note Next Visit Plan STM/joint mobs, core strengthening Plan of Care Dates Plan of Care Start Date 06/26/24 Plan of Care End Date 09/24/24 Electronically Signed by: Tong Card, PT 06/27/24 1043 If you are in agreement with this Plan of Care, please return a signed and dated copy. I have reviewed this Plan of Care and certify that the skilled therapy services above are required to meet the patient?s needs. Physician Signature Date Printed Name and Credentials Clinical Instructor Signature Printed Name and Credentials
--- NOTE | 2024-07-02 12:59 | PT.OTN ---
Current Diagnoses Stiffness of right shoulder, not elsewhere classified (07/02/24) Stiffness of other specified joint, not elsewhere classified (07/02/24) Other spondylosis with myelopathy, thoracic region (07/02/24) Physical Therapy Treatment Note PT-OP-A Visit Information Start: 06/26/24 17:48 Freq: Status: Active Protocol: Document 07/02/24 12:15 DCW (Rec: 07/02/24 12:59 DCW [id number]) Out-Patient Physical Therapy Visit Information Visit Information Visit Type Treatment Note Visit Start Time 12:15 Visit Stop Time 13:00 Visit Number 2 Number of CLOCKSMITH Visits 0 Evaluation Information Evaluation Date 06/26/24 PT-OP-B Current Condition Start: 06/26/24 17:48 Freq: Status: Active Protocol: Document 06/26/24 15:15 DCW (Rec: 06/27/24 08:43 DCW [id number]) Current Condition History of Current Condition Onset Date 05/09/24 Current Complaints Increased tone/stiffness along spine, difficulty standing upright, pain History of Current Condition Pt is a 59 year old male very well known to this clinic presenting seven weeks s/p thoracic spine surgery. Pt had a thoracic laminectomy and two miladis placed in his thoracic spine, fusing five vertebrae. This is in addition to multiple other spinal surgeries, including cervical fusion and a recent thoracic endoscopic surgery to prep for this most recent surgery. Pt is in the middle of multiple planned surgeries working to decrease compression on his spinal cord. Next planned surgery is a lumbar surgery, however pt does not know when this will be, reports he has a follow-up Jul 22 for planning . Notes that since his most recent surgery, he has been noticing increase in sensations in his legs and around his torso. Current complaints are muscle tightness, particularly in his right neck, lower right thoracic musculature, and right lumbar paraspinals. Pt often leans to the right in standing or sitting due to tightness, which worsens balance. Ambulates with a SPC, wears heavily altered shoes from local orthotic clinic, which has helped pt from repeated inversion sprains. Treatment Goals Patient/Caregiver Goals Pt's goal is to walk without pain, perform ADLs independently, and stand up straighter. PT-OP-C Subjective Start: 06/26/24 17:48 Freq: Status: Active Protocol: Document 07/02/24 12:15 DCW (Rec: 07/02/24 12:59 DCW [id number]) OP-PT Subjective Patient Comments Patient Comments Pt somewhat better today, has tripled the amount of walking he has been doing PT-OP-F Manual Assessment Start: 06/26/24 17:48 Freq: Status: Active Protocol: Document 06/26/24 15:15 DCW (Rec: 06/27/24 08:49 DCW [id number]) Manual Assessments Soft Tissue Assessment Soft Tissue Mobility Assessment Moderate tone right upper trap , scalenes. Moderate-severe tone in distal right lat/ serratus posterior, posterior external obliques PT-OP-K Range of Motion Start: 06/26/24 17:48 Freq: Status: Active Protocol: Document 06/26/24 15:15 DCW (Rec: 06/27/24 08:49 DCW [id number]) Cervical Spine Range of Motion Cervical Spine Active Degrees Testing Position Sitting Flexion 40 Extension 16 Rotation Left 32 Rotation Right 38 Lateral Flexion Left 30 Lateral Flexion Right 10 ROM Limitations Bony Restriction,Pain PT-OP-L Special Tests Start: 06/26/24 17:48 Freq: Status: Active Protocol: Document 06/26/24 15:15 DCW (Rec: 06/27/24 08:49 DCW [id number]) Special Tests Cervical Spine Special Tests Foraminal Compression Test Results Negative Lumbar Spine Special Tests Straight Leg Raise Test Results Moderate Bilateral pain, R 55? , L 70? PT-OP-Q Treatments Start: 06/26/24 17:48 Freq: Status: Active Protocol: Document 07/02/24 12:15 DCW (Rec: 07/02/24 12:59 DCW [id number]) Manual Therapy Treatment Soft Tissue Mobilization Lumbar Body Location Lumbar paraspinals R>L Mobilization Type Strumming,Sustained Pressure, Trigger Point Release Intensity/Depth Moderate Body Position Prone Upper Trap Body Location R upper trap, scalenes Mobilization Type Sustained Pressure,Trigger Point Release Intensity/Depth Moderate Body Position Supine PT-OP-T Assessment and Plan Start: 06/26/24 17:48 Freq: Status: Active Protocol: Document 07/02/24 12:15 DCW (Rec: 07/02/24 12:59 DCW [id number]) Physical Therapy Assessment Impairments Impairments Activity Tolerance,Functional Activities,Functional Mobility ,Pain,Posture,ROM,Soft Tissue Mobility,Strength,Tone Goals Three Impairment SLR limited to 55? on R with lumbar pain due to increased muscle tone Hand Ii Tube Bender Goal (LTG) Pt to exhibit a passive SLR to >70? bilaterally without pain in order to demonstrate improve flexibility of lumbar musculature and hamstring to improve functional mobility. LTG Duration 09/24/24 Two Impairment Pt leans to R in sitting or standing 70% of the time to decrease tension Hand Ii Tube Bender Goal (LTG) Pt to sit and stand with an upright posture 60% of the time without cues in order to demonstrate improved posture and decreased right-sided tone LTG Duration 09/24/24 One Impairment Pt does not have an appropriate home exercise program Short Term Goal (STG) Pt to be independent and compliant with an appropriate HEP STG Duration 07/26/24 Assessment Summary Assessment Pt tolerated well, focused today on mobility and STM of lumbar and cervical paraspinals. Pt able to get off treatment table and stand up straighter. Physical Therapy Plan Frequency and Duration Frequency of Treatment 2x/Week Plan of Care Start Date 06/26/24 Plan of Care End Date 09/24/24 Therapeutic Interventions Therapeutic Interventions Home Exercise Program,Joint Mobilizations,Manual Therapy, Neuromuscular Re-education, Patient/Caregiver Education, Self-Care/Home Management,Soft Tissue Mobilization,Taping, Therapeutic Activities, Therapeutic Exercises Modalities Cold Pack/Ice Massage,Hot Packs Next Visit Focus/Plan Next Note Type Treatment Note Next Visit Plan STM/joint mobs, core strengthening
--- NOTE | 2024-07-08 15:11 | PT.OTN ---
Current Diagnoses Stiffness of right shoulder, not elsewhere classified (07/08/24) Stiffness of other specified joint, not elsewhere classified (07/08/24) Other spondylosis with myelopathy, thoracic region (07/08/24) Physical Therapy Treatment Note PT-OP-A Visit Information Start: 06/26/24 17:48 Freq: Status: Active Protocol: Document 07/08/24 14:30 DCW (Rec: 07/08/24 15:11 DCW [id number]) Out-Patient Physical Therapy Visit Information Visit Information Visit Type Treatment Note Visit Start Time 14:30 Visit Stop Time 15:15 Visit Number 3 Number of CITY TREASURER Visits 0 Evaluation Information Evaluation Date 06/26/24 PT-OP-B Current Condition Start: 06/26/24 17:48 Freq: Status: Active Protocol: Document 06/26/24 15:15 DCW (Rec: 06/27/24 08:43 DCW [id number]) Current Condition History of Current Condition Onset Date 05/09/24 Current Complaints Increased tone/stiffness along spine, difficulty standing upright, pain History of Current Condition Pt is a 59 year old male very well known to this clinic presenting seven weeks s/p thoracic spine surgery. Pt had a thoracic laminectomy and two miladis placed in his thoracic spine, fusing five vertebrae. This is in addition to multiple other spinal surgeries, including cervical fusion and a recent thoracic endoscopic surgery to prep for this most recent surgery. Pt is in the middle of multiple planned surgeries working to decrease compression on his spinal cord. Next planned surgery is a lumbar surgery, however pt does not know when this will be, reports he has a follow-up Jul 22 for planning . Notes that since his most recent surgery, he has been noticing increase in sensations in his legs and around his torso. Current complaints are muscle tightness, particularly in his right neck, lower right thoracic musculature, and right lumbar paraspinals. Pt often leans to the right in standing or sitting due to tightness, which worsens balance. Ambulates with a SPC, wears heavily altered shoes from local orthotic clinic, which has helped pt from repeated inversion sprains. Treatment Goals Patient/Caregiver Goals Pt's goal is to walk without pain, perform ADLs independently, and stand up straighter. PT-OP-C Subjective Start: 06/26/24 17:48 Freq: Status: Active Protocol: Document 07/08/24 14:30 DCW (Rec: 07/08/24 15:11 DCW [id number]) OP-PT Subjective Patient Comments Patient Comments The back sucks, the neck is sore. PT-OP-F Manual Assessment Start: 06/26/24 17:48 Freq: Status: Active Protocol: Document 06/26/24 15:15 DCW (Rec: 06/27/24 08:49 DCW [id number]) Manual Assessments Soft Tissue Assessment Soft Tissue Mobility Assessment Moderate tone right upper trap , scalenes. Moderate-severe tone in distal right lat/ serratus posterior, posterior external obliques PT-OP-K Range of Motion Start: 06/26/24 17:48 Freq: Status: Active Protocol: Document 06/26/24 15:15 DCW (Rec: 06/27/24 08:49 DCW [id number]) Cervical Spine Range of Motion Cervical Spine Active Degrees Testing Position Sitting Flexion 40 Extension 16 Rotation Left 32 Rotation Right 38 Lateral Flexion Left 30 Lateral Flexion Right 10 ROM Limitations Bony Restriction,Pain PT-OP-L Special Tests Start: 06/26/24 17:48 Freq: Status: Active Protocol: Document 06/26/24 15:15 DCW (Rec: 06/27/24 08:49 DCW [id number]) Special Tests Cervical Spine Special Tests Foraminal Compression Test Results Negative Lumbar Spine Special Tests Straight Leg Raise Test Results Moderate Bilateral pain, R 55? , L 70? PT-OP-Q Treatments Start: 06/26/24 17:48 Freq: Status: Active Protocol: Document 07/08/24 14:30 DCW (Rec: 07/08/24 15:11 DCW [id number]) Manual Therapy Treatment Consent Patient gave verbal consent for manual Yes treatment Soft Tissue Mobilization Lumbar Body Location Lumbar paraspinals R>L, QL, Mobilization Type Strumming,Sustained Pressure, Trigger Point Release Intensity/Depth Moderate Body Position Prone Upper Trap Body Location R>L upper trap, scalenes Mobilization Type Sustained Pressure,Trigger Point Release Intensity/Depth Moderate Body Position Supine PT-OP-T Assessment and Plan Start: 06/26/24 17:48 Freq: Status: Active Protocol: Document 07/08/24 14:30 DCW (Rec: 07/08/24 15:11 DCW [id number]) Physical Therapy Assessment Impairments Impairments Activity Tolerance,Functional Activities,Functional Mobility ,Pain,Posture,ROM,Soft Tissue Mobility,Strength,Tone Goals Three Impairment SLR limited to 55? on R with lumbar pain due to increased muscle tone Supervisor Polishing Goal (LTG) Pt to exhibit a passive SLR to >70? bilaterally without pain in order to demonstrate improve flexibility of lumbar musculature and hamstring to improve functional mobility. LTG Duration 09/24/24 Two Impairment Pt leans to R in sitting or standing 70% of the time to decrease tension Longterm Goal (LTG) Pt to sit and stand with an upright posture 60% of the time without cues in order to demonstrate improved posture and decreased right-sided tone LTG Duration 09/24/24 One Impairment Pt does not have an appropriate home exercise program Short Term Goal (STG) Pt to be independent and compliant with an appropriate HEP STG Duration 07/26/24 Assessment Summary Assessment Doing well, good response to STM today. Still waiting for follow-up with surgeon to determine scheduling of future surgeries. Physical Therapy Plan Frequency and Duration Frequency of Treatment 2x/Week Plan of Care Start Date 06/26/24 Plan of Care End Date 09/24/24 Therapeutic Interventions Therapeutic Interventions Home Exercise Program,Joint Mobilizations,Manual Therapy, Neuromuscular Re-education, Patient/Caregiver Education, Self-Care/Home Management,Soft Tissue Mobilization,Taping, Therapeutic Activities, Therapeutic Exercises Modalities Cold Pack/Ice Massage,Hot Packs Next Visit Focus/Plan Next Note Type Treatment Note Next Visit Plan STM/joint mobs, core strengthening
--- NOTE | 2024-07-10 15:13 | PT.OTN ---
Current Diagnoses Stiffness of right shoulder, not elsewhere classified (07/10/24) Stiffness of other specified joint, not elsewhere classified (07/10/24) Other spondylosis with myelopathy, thoracic region (07/10/24) Physical Therapy Treatment Note PT-OP-A Visit Information Start: 06/26/24 17:48 Freq: Status: Active Protocol: Document 07/10/24 14:30 DCW (Rec: 07/10/24 15:13 DCW [id number]) Out-Patient Physical Therapy Visit Information Visit Information Visit Type Treatment Note Visit Start Time 14:30 Visit Stop Time 15:15 Visit Number 4 Number of BILLET INSPECTOR Visits 0 Evaluation Information Evaluation Date 06/26/24 PT-OP-B Current Condition Start: 06/26/24 17:48 Freq: Status: Active Protocol: Document 06/26/24 15:15 DCW (Rec: 06/27/24 08:43 DCW [id number]) Current Condition History of Current Condition Onset Date 05/09/24 Current Complaints Increased tone/stiffness along spine, difficulty standing upright, pain History of Current Condition Pt is a 59 year old male very well known to this clinic presenting seven weeks s/p thoracic spine surgery. Pt had a thoracic laminectomy and two miladis placed in his thoracic spine, fusing five vertebrae. This is in addition to multiple other spinal surgeries, including cervical fusion and a recent thoracic endoscopic surgery to prep for this most recent surgery. Pt is in the middle of multiple planned surgeries working to decrease compression on his spinal cord. Next planned surgery is a lumbar surgery, however pt does not know when this will be, reports he has a follow-up Jul 22 for planning . Notes that since his most recent surgery, he has been noticing increase in sensations in his legs and around his torso. Current complaints are muscle tightness, particularly in his right neck, lower right thoracic musculature, and right lumbar paraspinals. Pt often leans to the right in standing or sitting due to tightness, which worsens balance. Ambulates with a SPC, wears heavily altered shoes from local orthotic clinic, which has helped pt from repeated inversion sprains. Treatment Goals Patient/Caregiver Goals Pt's goal is to walk without pain, perform ADLs independently, and stand up straighter. PT-OP-C Subjective Start: 06/26/24 17:48 Freq: Status: Active Protocol: Document 07/10/24 14:30 DCW (Rec: 07/10/24 15:13 DCW [id number]) OP-PT Subjective Patient Comments Patient Comments Well, I'm here today. PT-OP-F Manual Assessment Start: 06/26/24 17:48 Freq: Status: Active Protocol: Document 06/26/24 15:15 DCW (Rec: 06/27/24 08:49 DCW [id number]) Manual Assessments Soft Tissue Assessment Soft Tissue Mobility Assessment Moderate tone right upper trap , scalenes. Moderate-severe tone in distal right lat/ serratus posterior, posterior external obliques PT-OP-K Range of Motion Start: 06/26/24 17:48 Freq: Status: Active Protocol: Document 06/26/24 15:15 DCW (Rec: 06/27/24 08:49 DCW [id number]) Cervical Spine Range of Motion Cervical Spine Active Degrees Testing Position Sitting Flexion 40 Extension 16 Rotation Left 32 Rotation Right 38 Lateral Flexion Left 30 Lateral Flexion Right 10 ROM Limitations Bony Restriction,Pain PT-OP-L Special Tests Start: 06/26/24 17:48 Freq: Status: Active Protocol: Document 06/26/24 15:15 DCW (Rec: 06/27/24 08:49 DCW [id number]) Special Tests Cervical Spine Special Tests Foraminal Compression Test Results Negative Lumbar Spine Special Tests Straight Leg Raise Test Results Moderate Bilateral pain, R 55? , L 70? PT-OP-Q Treatments Start: 06/26/24 17:48 Freq: Status: Active Protocol: Document 07/10/24 14:30 DCW (Rec: 07/10/24 15:13 DCW [id number]) Manual Therapy Treatment Consent Patient gave verbal consent for manual Yes treatment Soft Tissue Mobilization Lumbar Body Location Lumbar paraspinals R>L, QL, Mobilization Type Strumming,Sustained Pressure, Trigger Point Release Intensity/Depth Moderate Body Position Prone Upper Trap Body Location R>L upper trap, scalenes Mobilization Type Sustained Pressure,Trigger Point Release Intensity/Depth Moderate Body Position Supine PT-OP-T Assessment and Plan Start: 06/26/24 17:48 Freq: Status: Active Protocol: Document 07/10/24 14:30 DCW (Rec: 07/10/24 15:13 DCW [id number]) Physical Therapy Assessment Impairments Impairments Activity Tolerance,Functional Activities,Functional Mobility ,Pain,Posture,ROM,Soft Tissue Mobility,Strength,Tone Goals Three Impairment SLR limited to 55? on R with lumbar pain due to increased muscle tone Restrictive Preparation Operator Goal (LTG) Pt to exhibit a passive SLR to >70? bilaterally without pain in order to demonstrate improve flexibility of lumbar musculature and hamstring to improve functional mobility. LTG Duration 09/24/24 Two Impairment Pt leans to R in sitting or standing 70% of the time to decrease tension Restrictive Preparation Operator Goal (LTG) Pt to sit and stand with an upright posture 60% of the time without cues in order to demonstrate improved posture and decreased right-sided tone LTG Duration 09/24/24 One Impairment Pt does not have an appropriate home exercise program Short Term Goal (STG) Pt to be independent and compliant with an appropriate HEP STG Duration 07/26/24 Assessment Summary Assessment Pt showing some reasonable improvement in tone and functional mobility. Continue focusing on STM, core strengthening, and mobility Physical Therapy Plan Frequency and Duration Frequency of Treatment 2x/Week Plan of Care Start Date 06/26/24 Plan of Care End Date 09/24/24 Therapeutic Interventions Therapeutic Interventions Home Exercise Program,Joint Mobilizations,Manual Therapy, Neuromuscular Re-education, Patient/Caregiver Education, Self-Care/Home Management,Soft Tissue Mobilization,Taping, Therapeutic Activities, Therapeutic Exercises Modalities Cold Pack/Ice Massage,Hot Packs Next Visit Focus/Plan Next Note Type Treatment Note Next Visit Plan STM/joint mobs, core strengthening
--- NOTE | 2024-07-15 15:12 | PT.OTN ---
Current Diagnoses Stiffness of right shoulder, not elsewhere classified (07/15/24) Stiffness of other specified joint, not elsewhere classified (07/15/24) Other spondylosis with myelopathy, thoracic region (07/15/24) Physical Therapy Treatment Note PT-OP-A Visit Information Start: 06/26/24 17:48 Freq: Status: Active Protocol: Document 07/15/24 14:30 DCW (Rec: 07/15/24 15:12 DCW [id number]) Out-Patient Physical Therapy Visit Information Visit Information Visit Type Treatment Note Visit Start Time 14:30 Visit Stop Time 15:15 Visit Number 5 Number of LEAD JAVA J2EE DEVELOPER Visits 0 Evaluation Information Evaluation Date 06/26/24 PT-OP-B Current Condition Start: 06/26/24 17:48 Freq: Status: Active Protocol: Document 06/26/24 15:15 DCW (Rec: 06/27/24 08:43 DCW [id number]) Current Condition History of Current Condition Onset Date 05/09/24 Current Complaints Increased tone/stiffness along spine, difficulty standing upright, pain History of Current Condition Pt is a 59 year old male very well known to this clinic presenting seven weeks s/p thoracic spine surgery. Pt had a thoracic laminectomy and two miladis placed in his thoracic spine, fusing five vertebrae. This is in addition to multiple other spinal surgeries, including cervical fusion and a recent thoracic endoscopic surgery to prep for this most recent surgery. Pt is in the middle of multiple planned surgeries working to decrease compression on his spinal cord. Next planned surgery is a lumbar surgery, however pt does not know when this will be, reports he has a follow-up Jul 22 for planning . Notes that since his most recent surgery, he has been noticing increase in sensations in his legs and around his torso. Current complaints are muscle tightness, particularly in his right neck, lower right thoracic musculature, and right lumbar paraspinals. Pt often leans to the right in standing or sitting due to tightness, which worsens balance. Ambulates with a SPC, wears heavily altered shoes from local orthotic clinic, which has helped pt from repeated inversion sprains. Treatment Goals Patient/Caregiver Goals Pt's goal is to walk without pain, perform ADLs independently, and stand up straighter. PT-OP-C Subjective Start: 06/26/24 17:48 Freq: Status: Active Protocol: Document 07/15/24 14:30 DCW (Rec: 07/15/24 15:12 DCW [id number]) OP-PT Subjective Patient Comments Patient Comments Pt doing better today, feeling like his sensation is improving. PT-OP-F Manual Assessment Start: 06/26/24 17:48 Freq: Status: Active Protocol: Document 06/26/24 15:15 DCW (Rec: 06/27/24 08:49 DCW [id number]) Manual Assessments Soft Tissue Assessment Soft Tissue Mobility Assessment Moderate tone right upper trap , scalenes. Moderate-severe tone in distal right lat/ serratus posterior, posterior external obliques PT-OP-K Range of Motion Start: 06/26/24 17:48 Freq: Status: Active Protocol: Document 06/26/24 15:15 DCW (Rec: 06/27/24 08:49 DCW [id number]) Cervical Spine Range of Motion Cervical Spine Active Degrees Testing Position Sitting Flexion 40 Extension 16 Rotation Left 32 Rotation Right 38 Lateral Flexion Left 30 Lateral Flexion Right 10 ROM Limitations Bony Restriction,Pain PT-OP-L Special Tests Start: 06/26/24 17:48 Freq: Status: Active Protocol: Document 06/26/24 15:15 DCW (Rec: 06/27/24 08:49 DCW [id number]) Special Tests Cervical Spine Special Tests Foraminal Compression Test Results Negative Lumbar Spine Special Tests Straight Leg Raise Test Results Moderate Bilateral pain, R 55? , L 70? PT-OP-Q Treatments Start: 06/26/24 17:48 Freq: Status: Active Protocol: Document 07/15/24 14:30 DCW (Rec: 07/15/24 15:12 DCW [id number]) Manual Therapy Treatment Consent Patient gave verbal consent for manual Yes treatment Soft Tissue Mobilization Lumbar Body Location Lumbar paraspinals R>L, QL, Mobilization Type Strumming,Sustained Pressure, Trigger Point Release Intensity/Depth Moderate Body Position Prone Upper Trap Body Location R>L upper trap, scalenes Mobilization Type Sustained Pressure,Trigger Point Release Intensity/Depth Moderate Body Position Supine PT-OP-T Assessment and Plan Start: 06/26/24 17:48 Freq: Status: Active Protocol: Document 07/15/24 14:30 DCW (Rec: 07/15/24 15:12 DCW [id number]) Physical Therapy Assessment Impairments Impairments Activity Tolerance,Functional Activities,Functional Mobility ,Pain,Posture,ROM,Soft Tissue Mobility,Strength,Tone Goals Three Impairment SLR limited to 55? on R with lumbar pain due to increased muscle tone Club Steward Goal (LTG) Pt to exhibit a passive SLR to >70? bilaterally without pain in order to demonstrate improve flexibility of lumbar musculature and hamstring to improve functional mobility. LTG Duration 09/24/24 Two Impairment Pt leans to R in sitting or standing 70% of the time to decrease tension Club Steward Goal (LTG) Pt to sit and stand with an upright posture 60% of the time without cues in order to demonstrate improved posture and decreased right-sided tone LTG Duration 09/24/24 One Impairment Pt does not have an appropriate home exercise program Short Term Goal (STG) Pt to be independent and compliant with an appropriate HEP STG Duration 07/26/24 Assessment Summary Assessment Pt tolerating treatment well, doing better with functional mobility and upright posture. Physical Therapy Plan Frequency and Duration Frequency of Treatment 2x/Week Plan of Care Start Date 06/26/24 Plan of Care End Date 09/24/24 Therapeutic Interventions Therapeutic Interventions Home Exercise Program,Joint Mobilizations,Manual Therapy, Neuromuscular Re-education, Patient/Caregiver Education, Self-Care/Home Management,Soft Tissue Mobilization,Taping, Therapeutic Activities, Therapeutic Exercises Modalities Cold Pack/Ice Massage,Hot Packs Next Visit Focus/Plan Next Note Type Treatment Note Next Visit Plan STM/joint mobs, core strengthening
--- NOTE | 2024-07-17 15:13 | PT.OTN ---
Current Diagnoses Stiffness of right shoulder, not elsewhere classified (07/17/24) Stiffness of other specified joint, not elsewhere classified (07/17/24) Other spondylosis with myelopathy, thoracic region (07/17/24) Physical Therapy Treatment Note PT-OP-A Visit Information Start: 06/26/24 17:48 Freq: Status: Active Protocol: Document 07/17/24 14:30 DCW (Rec: 07/17/24 15:13 DCW [id number]) Out-Patient Physical Therapy Visit Information Visit Information Visit Type Treatment Note Visit Start Time 14:30 Visit Stop Time 15:15 Visit Number 6 Number of WHEEL ASSEMBLER Visits 0 Evaluation Information Evaluation Date 06/26/24 PT-OP-B Current Condition Start: 06/26/24 17:48 Freq: Status: Active Protocol: Document 06/26/24 15:15 DCW (Rec: 06/27/24 08:43 DCW [id number]) Current Condition History of Current Condition Onset Date 05/09/24 Current Complaints Increased tone/stiffness along spine, difficulty standing upright, pain History of Current Condition Pt is a 59 year old male very well known to this clinic presenting seven weeks s/p thoracic spine surgery. Pt had a thoracic laminectomy and two miladis placed in his thoracic spine, fusing five vertebrae. This is in addition to multiple other spinal surgeries, including cervical fusion and a recent thoracic endoscopic surgery to prep for this most recent surgery. Pt is in the middle of multiple planned surgeries working to decrease compression on his spinal cord. Next planned surgery is a lumbar surgery, however pt does not know when this will be, reports he has a follow-up Jul 22 for planning . Notes that since his most recent surgery, he has been noticing increase in sensations in his legs and around his torso. Current complaints are muscle tightness, particularly in his right neck, lower right thoracic musculature, and right lumbar paraspinals. Pt often leans to the right in standing or sitting due to tightness, which worsens balance. Ambulates with a SPC, wears heavily altered shoes from local orthotic clinic, which has helped pt from repeated inversion sprains. Treatment Goals Patient/Caregiver Goals Pt's goal is to walk without pain, perform ADLs independently, and stand up straighter. PT-OP-C Subjective Start: 06/26/24 17:48 Freq: Status: Active Protocol: Document 07/17/24 14:30 DCW (Rec: 07/17/24 15:13 DCW [id number]) OP-PT Subjective Patient Comments Patient Comments Feeling better off and on. PT-OP-F Manual Assessment Start: 06/26/24 17:48 Freq: Status: Active Protocol: Document 06/26/24 15:15 DCW (Rec: 06/27/24 08:49 DCW [id number]) Manual Assessments Soft Tissue Assessment Soft Tissue Mobility Assessment Moderate tone right upper trap , scalenes. Moderate-severe tone in distal right lat/ serratus posterior, posterior external obliques PT-OP-K Range of Motion Start: 06/26/24 17:48 Freq: Status: Active Protocol: Document 06/26/24 15:15 DCW (Rec: 06/27/24 08:49 DCW [id number]) Cervical Spine Range of Motion Cervical Spine Active Degrees Testing Position Sitting Flexion 40 Extension 16 Rotation Left 32 Rotation Right 38 Lateral Flexion Left 30 Lateral Flexion Right 10 ROM Limitations Bony Restriction,Pain PT-OP-L Special Tests Start: 06/26/24 17:48 Freq: Status: Active Protocol: Document 06/26/24 15:15 DCW (Rec: 06/27/24 08:49 DCW [id number]) Special Tests Cervical Spine Special Tests Foraminal Compression Test Results Negative Lumbar Spine Special Tests Straight Leg Raise Test Results Moderate Bilateral pain, R 55? , L 70? PT-OP-Q Treatments Start: 06/26/24 17:48 Freq: Status: Active Protocol: Document 07/17/24 14:30 DCW (Rec: 07/17/24 15:13 DCW [id number]) Manual Therapy Treatment Consent Patient gave verbal consent for manual Yes treatment Soft Tissue Mobilization Lumbar Body Location Lumbar paraspinals R>L, QL, Mobilization Type Strumming,Sustained Pressure, Trigger Point Release Intensity/Depth Moderate Body Position Prone Upper Trap Body Location R>L upper trap, scalenes Mobilization Type Sustained Pressure,Trigger Point Release Intensity/Depth Moderate Body Position Supine PT-OP-T Assessment and Plan Start: 06/26/24 17:48 Freq: Status: Active Protocol: Document 07/17/24 14:30 DCW (Rec: 07/17/24 15:13 DCW [id number]) Physical Therapy Assessment Impairments Impairments Activity Tolerance,Functional Activities,Functional Mobility ,Pain,Posture,ROM,Soft Tissue Mobility,Strength,Tone Goals Three Impairment SLR limited to 55? on R with lumbar pain due to increased muscle tone Intermediate Goal (LTG) Pt to exhibit a passive SLR to >70? bilaterally without pain in order to demonstrate improve flexibility of lumbar musculature and hamstring to improve functional mobility. LTG Duration 09/24/24 Two Impairment Pt leans to R in sitting or standing 70% of the time to decrease tension Intermediate Goal (LTG) Pt to sit and stand with an upright posture 60% of the time without cues in order to demonstrate improved posture and decreased right-sided tone LTG Duration 09/24/24 One Impairment Pt does not have an appropriate home exercise program Short Term Goal (STG) Pt to be independent and compliant with an appropriate HEP STG Duration 07/26/24 Assessment Summary Assessment Pt continues to note improvement overall with functional mobility and pain levels. Hoping to hear next week in regards to scheduling next upcoming surgery. Physical Therapy Plan Frequency and Duration Frequency of Treatment 2x/Week Plan of Care Start Date 06/26/24 Plan of Care End Date 09/24/24 Therapeutic Interventions Therapeutic Interventions Home Exercise Program,Joint Mobilizations,Manual Therapy, Neuromuscular Re-education, Patient/Caregiver Education, Self-Care/Home Management,Soft Tissue Mobilization,Taping, Therapeutic Activities, Therapeutic Exercises Modalities Cold Pack/Ice Massage,Hot Packs Next Visit Focus/Plan Next Note Type Treatment Note Next Visit Plan STM/joint mobs, core strengthening
--- NOTE | 2024-07-24 15:15 | PT.OTN ---
Current Diagnoses Stiffness of right shoulder, not elsewhere classified (07/24/24) Stiffness of other specified joint, not elsewhere classified (07/24/24) Other spondylosis with myelopathy, thoracic region (07/24/24) Physical Therapy Treatment Note PT-OP-A Visit Information Start: 06/26/24 17:48 Freq: Status: Active Protocol: Document 07/24/24 14:30 DCW (Rec: 07/24/24 15:14 DCW [id number]) Out-Patient Physical Therapy Visit Information Visit Information Visit Type Treatment Note Visit Start Time 14:30 Visit Stop Time 15:15 Visit Number 6 Number of MANAGER PEOPLE Visits 0 Evaluation Information Evaluation Date 06/26/24 PT-OP-B Current Condition Start: 06/26/24 17:48 Freq: Status: Active Protocol: Document 06/26/24 15:15 DCW (Rec: 06/27/24 08:43 DCW [id number]) Current Condition History of Current Condition Onset Date 05/09/24 Current Complaints Increased tone/stiffness along spine, difficulty standing upright, pain History of Current Condition Pt is a 59 year old male very well known to this clinic presenting seven weeks s/p thoracic spine surgery. Pt had a thoracic laminectomy and two miladis placed in his thoracic spine, fusing five vertebrae. This is in addition to multiple other spinal surgeries, including cervical fusion and a recent thoracic endoscopic surgery to prep for this most recent surgery. Pt is in the middle of multiple planned surgeries working to decrease compression on his spinal cord. Next planned surgery is a lumbar surgery, however pt does not know when this will be, reports he has a follow-up Jul 22 for planning . Notes that since his most recent surgery, he has been noticing increase in sensations in his legs and around his torso. Current complaints are muscle tightness, particularly in his right neck, lower right thoracic musculature, and right lumbar paraspinals. Pt often leans to the right in standing or sitting due to tightness, which worsens balance. Ambulates with a SPC, wears heavily altered shoes from local orthotic clinic, which has helped pt from repeated inversion sprains. Treatment Goals Patient/Caregiver Goals Pt's goal is to walk without pain, perform ADLs independently, and stand up straighter. PT-OP-C Subjective Start: 06/26/24 17:48 Freq: Status: Active Protocol: Document 07/24/24 14:30 DCW (Rec: 07/24/24 15:14 DCW [id number]) OP-PT Subjective Patient Comments Patient Comments Pt had his surgical consult, reports his next surgery will probably not be until November or December. PT-OP-F Manual Assessment Start: 06/26/24 17:48 Freq: Status: Active Protocol: Document 06/26/24 15:15 DCW (Rec: 06/27/24 08:49 DCW [id number]) Manual Assessments Soft Tissue Assessment Soft Tissue Mobility Assessment Moderate tone right upper trap , scalenes. Moderate-severe tone in distal right lat/ serratus posterior, posterior external obliques PT-OP-K Range of Motion Start: 06/26/24 17:48 Freq: Status: Active Protocol: Document 06/26/24 15:15 DCW (Rec: 06/27/24 08:49 DCW [id number]) Cervical Spine Range of Motion Cervical Spine Active Degrees Testing Position Sitting Flexion 40 Extension 16 Rotation Left 32 Rotation Right 38 Lateral Flexion Left 30 Lateral Flexion Right 10 ROM Limitations Bony Restriction,Pain PT-OP-L Special Tests Start: 06/26/24 17:48 Freq: Status: Active Protocol: Document 06/26/24 15:15 DCW (Rec: 06/27/24 08:49 DCW [id number]) Special Tests Cervical Spine Special Tests Foraminal Compression Test Results Negative Lumbar Spine Special Tests Straight Leg Raise Test Results Moderate Bilateral pain, R 55? , L 70? PT-OP-Q Treatments Start: 06/26/24 17:48 Freq: Status: Active Protocol: Document 07/24/24 14:30 DCW (Rec: 07/24/24 15:14 DCW [id number]) Manual Therapy Treatment Consent Patient gave verbal consent for manual Yes treatment Soft Tissue Mobilization Lumbar Body Location Lumbar paraspinals R>L, QL, Mobilization Type Strumming,Sustained Pressure, Trigger Point Release Intensity/Depth Moderate Body Position Prone Upper Trap Body Location R>L upper trap, scalenes Mobilization Type Sustained Pressure,Trigger Point Release Intensity/Depth Moderate Body Position Supine PT-OP-T Assessment and Plan Start: 06/26/24 17:48 Freq: Status: Active Protocol: Document 07/24/24 14:30 DCW (Rec: 07/24/24 15:14 DCW [id number]) Physical Therapy Assessment Impairments Impairments Activity Tolerance,Functional Activities,Functional Mobility ,Pain,Posture,ROM,Soft Tissue Mobility,Strength,Tone Goals Three Impairment SLR limited to 55? on R with lumbar pain due to increased muscle tone Detention Goal (LTG) Pt to exhibit a passive SLR to >70? bilaterally without pain in order to demonstrate improve flexibility of lumbar musculature and hamstring to improve functional mobility. LTG Duration 09/24/24 Two Impairment Pt leans to R in sitting or standing 70% of the time to decrease tension Hospitality Intern Goal (LTG) Pt to sit and stand with an upright posture 60% of the time without cues in order to demonstrate improved posture and decreased right-sided tone LTG Duration 09/24/24 One Impairment Pt does not have an appropriate home exercise program Short Term Goal (STG) Pt to be independent and compliant with an appropriate HEP STG Duration 07/26/24 Assessment Summary Assessment Good response to treatment, pt continues to show some improvement with functional mobility and posture, demonstrating decreased protective spasming in low back Physical Therapy Plan Frequency and Duration Frequency of Treatment 2x/Week Plan of Care Start Date 06/26/24 Plan of Care End Date 09/24/24 Therapeutic Interventions Therapeutic Interventions Home Exercise Program,Joint Mobilizations,Manual Therapy, Neuromuscular Re-education, Patient/Caregiver Education, Self-Care/Home Management,Soft Tissue Mobilization,Taping, Therapeutic Activities, Therapeutic Exercises Modalities Cold Pack/Ice Massage,Hot Packs Next Visit Focus/Plan Next Note Type Treatment Note Next Visit Plan STM/joint mobs, core strengthening
--- NOTE | 2024-08-01 12:58 | PT.OTN ---
Current Diagnoses Stiffness of right shoulder, not elsewhere classified (08/01/24) Stiffness of other specified joint, not elsewhere classified (08/01/24) Other spondylosis with myelopathy, thoracic region (08/01/24) Physical Therapy Treatment Note PT-OP-A Visit Information Start: 06/26/24 17:48 Freq: Status: Active Protocol: Document 08/01/24 12:15 DCW (Rec: 08/01/24 12:58 DCW [id number]) Out-Patient Physical Therapy Visit Information Visit Information Visit Type Treatment Note Visit Start Time 12:15 Visit Stop Time 13:00 Visit Number 7 Number of INSPECTOR FABRIC Visits 0 Evaluation Information Evaluation Date 06/26/24 PT-OP-B Current Condition Start: 06/26/24 17:48 Freq: Status: Active Protocol: Document 06/26/24 15:15 DCW (Rec: 06/27/24 08:43 DCW [id number]) Current Condition History of Current Condition Onset Date 05/09/24 Current Complaints Increased tone/stiffness along spine, difficulty standing upright, pain History of Current Condition Pt is a 59 year old male very well known to this clinic presenting seven weeks s/p thoracic spine surgery. Pt had a thoracic laminectomy and two miladis placed in his thoracic spine, fusing five vertebrae. This is in addition to multiple other spinal surgeries, including cervical fusion and a recent thoracic endoscopic surgery to prep for this most recent surgery. Pt is in the middle of multiple planned surgeries working to decrease compression on his spinal cord. Next planned surgery is a lumbar surgery, however pt does not know when this will be, reports he has a follow-up Jul 22 for planning . Notes that since his most recent surgery, he has been noticing increase in sensations in his legs and around his torso. Current complaints are muscle tightness, particularly in his right neck, lower right thoracic musculature, and right lumbar paraspinals. Pt often leans to the right in standing or sitting due to tightness, which worsens balance. Ambulates with a SPC, wears heavily altered shoes from local orthotic clinic, which has helped pt from repeated inversion sprains. Treatment Goals Patient/Caregiver Goals Pt's goal is to walk without pain, perform ADLs independently, and stand up straighter. PT-OP-C Subjective Start: 06/26/24 17:48 Freq: Status: Active Protocol: Document 08/01/24 12:15 DCW (Rec: 08/01/24 12:58 DCW [id number]) OP-PT Subjective Patient Comments Patient Comments Pt feeling like he has declined a bit. Notes he woke up this morning feeling like I still had chauncey in my back . PT-OP-F Manual Assessment Start: 06/26/24 17:48 Freq: Status: Active Protocol: Document 06/26/24 15:15 DCW (Rec: 06/27/24 08:49 DCW [id number]) Manual Assessments Soft Tissue Assessment Soft Tissue Mobility Assessment Moderate tone right upper trap , scalenes. Moderate-severe tone in distal right lat/ serratus posterior, posterior external obliques PT-OP-K Range of Motion Start: 06/26/24 17:48 Freq: Status: Active Protocol: Document 06/26/24 15:15 DCW (Rec: 06/27/24 08:49 DCW [id number]) Cervical Spine Range of Motion Cervical Spine Active Degrees Testing Position Sitting Flexion 40 Extension 16 Rotation Left 32 Rotation Right 38 Lateral Flexion Left 30 Lateral Flexion Right 10 ROM Limitations Bony Restriction,Pain PT-OP-L Special Tests Start: 06/26/24 17:48 Freq: Status: Active Protocol: Document 06/26/24 15:15 DCW (Rec: 06/27/24 08:49 DCW [id number]) Special Tests Cervical Spine Special Tests Foraminal Compression Test Results Negative Lumbar Spine Special Tests Straight Leg Raise Test Results Moderate Bilateral pain, R 55? , L 70? PT-OP-Q Treatments Start: 06/26/24 17:48 Freq: Status: Active Protocol: Document 08/01/24 12:15 DCW (Rec: 08/01/24 12:58 DCW [id number]) Manual Therapy Treatment Consent Patient gave verbal consent for manual Yes treatment Soft Tissue Mobilization Lumbar Body Location Lumbar paraspinals R>L, QL, Mobilization Type Strumming,Sustained Pressure, Trigger Point Release Intensity/Depth Moderate Body Position Prone Upper Trap Body Location R>L upper trap, scalenes Mobilization Type Sustained Pressure,Trigger Point Release Intensity/Depth Moderate Body Position Supine PT-OP-T Assessment and Plan Start: 06/26/24 17:48 Freq: Status: Active Protocol: Document 08/01/24 12:15 DCW (Rec: 08/01/24 12:58 DCW [id number]) Physical Therapy Assessment Impairments Impairments Activity Tolerance,Functional Activities,Functional Mobility ,Pain,Posture,ROM,Soft Tissue Mobility,Strength,Tone Goals Three Impairment SLR limited to 55? on R with lumbar pain due to increased muscle tone Snf Goal (LTG) Pt to exhibit a passive SLR to >70? bilaterally without pain in order to demonstrate improve flexibility of lumbar musculature and hamstring to improve functional mobility. LTG Duration 09/24/24 Two Impairment Pt leans to R in sitting or standing 70% of the time to decrease tension Drier Transfer Car Operator Goal (LTG) Pt to sit and stand with an upright posture 60% of the time without cues in order to demonstrate improved posture and decreased right-sided tone LTG Duration 09/24/24 One Impairment Pt does not have an appropriate home exercise program Short Term Goal (STG) Pt to be independent and compliant with an appropriate HEP STG Duration 07/26/24 Assessment Summary Assessment Good tolerance to activity today, pt feeling a little better overall. Decreased tone noted throughout low back. Physical Therapy Plan Frequency and Duration Frequency of Treatment 2x/Week Plan of Care Start Date 06/26/24 Plan of Care End Date 09/24/24 Therapeutic Interventions Therapeutic Interventions Home Exercise Program,Joint Mobilizations,Manual Therapy, Neuromuscular Re-education, Patient/Caregiver Education, Self-Care/Home Management,Soft Tissue Mobilization,Taping, Therapeutic Activities, Therapeutic Exercises Modalities Cold Pack/Ice Massage,Hot Packs Next Visit Focus/Plan Next Note Type Treatment Note Next Visit Plan STM/joint mobs, core strengthening
--- NOTE | 2024-08-08 15:18 | PT.OTN ---
Current Diagnoses Stiffness of right shoulder, not elsewhere classified (08/08/24) Stiffness of other specified joint, not elsewhere classified (08/08/24) Other spondylosis with myelopathy, thoracic region (08/08/24) Physical Therapy Treatment Note PT-OP-A Visit Information Start: 06/26/24 17:48 Freq: Status: Active Protocol: Document 08/08/24 14:30 DCW (Rec: 08/08/24 15:18 DCW [id number]) Out-Patient Physical Therapy Visit Information Visit Information Visit Type Treatment Note Visit Start Time 14:30 Visit Stop Time 15:15 Visit Number 8 Number of SAFETY DIRECTOR Visits 0 Evaluation Information Evaluation Date 06/26/24 PT-OP-B Current Condition Start: 06/26/24 17:48 Freq: Status: Active Protocol: Document 06/26/24 15:15 DCW (Rec: 06/27/24 08:43 DCW [id number]) Current Condition History of Current Condition Onset Date 05/09/24 Current Complaints Increased tone/stiffness along spine, difficulty standing upright, pain History of Current Condition Pt is a 59 year old male very well known to this clinic presenting seven weeks s/p thoracic spine surgery. Pt had a thoracic laminectomy and two miladis placed in his thoracic spine, fusing five vertebrae. This is in addition to multiple other spinal surgeries, including cervical fusion and a recent thoracic endoscopic surgery to prep for this most recent surgery. Pt is in the middle of multiple planned surgeries working to decrease compression on his spinal cord. Next planned surgery is a lumbar surgery, however pt does not know when this will be, reports he has a follow-up Jul 22 for planning . Notes that since his most recent surgery, he has been noticing increase in sensations in his legs and around his torso. Current complaints are muscle tightness, particularly in his right neck, lower right thoracic musculature, and right lumbar paraspinals. Pt often leans to the right in standing or sitting due to tightness, which worsens balance. Ambulates with a SPC, wears heavily altered shoes from local orthotic clinic, which has helped pt from repeated inversion sprains. Treatment Goals Patient/Caregiver Goals Pt's goal is to walk without pain, perform ADLs independently, and stand up straighter. PT-OP-C Subjective Start: 06/26/24 17:48 Freq: Status: Active Protocol: Document 08/08/24 14:30 DCW (Rec: 08/08/24 15:18 DCW [id number]) OP-PT Subjective Patient Comments Patient Comments Pt reports he spoke with his surgeon, was told some of his pain is just nerves that haven't been functioning for years, and that there's not much that can be done with the associated pain. PT-OP-F Manual Assessment Start: 06/26/24 17:48 Freq: Status: Active Protocol: Document 06/26/24 15:15 DCW (Rec: 06/27/24 08:49 DCW [id number]) Manual Assessments Soft Tissue Assessment Soft Tissue Mobility Assessment Moderate tone right upper trap , scalenes. Moderate-severe tone in distal right lat/ serratus posterior, posterior external obliques PT-OP-K Range of Motion Start: 06/26/24 17:48 Freq: Status: Active Protocol: Document 06/26/24 15:15 DCW (Rec: 06/27/24 08:49 DCW [id number]) Cervical Spine Range of Motion Cervical Spine Active Degrees Testing Position Sitting Flexion 40 Extension 16 Rotation Left 32 Rotation Right 38 Lateral Flexion Left 30 Lateral Flexion Right 10 ROM Limitations Bony Restriction,Pain PT-OP-L Special Tests Start: 06/26/24 17:48 Freq: Status: Active Protocol: Document 06/26/24 15:15 DCW (Rec: 06/27/24 08:49 DCW [id number]) Special Tests Cervical Spine Special Tests Foraminal Compression Test Results Negative Lumbar Spine Special Tests Straight Leg Raise Test Results Moderate Bilateral pain, R 55? , L 70? PT-OP-Q Treatments Start: 06/26/24 17:48 Freq: Status: Active Protocol: Document 08/08/24 14:30 DCW (Rec: 08/08/24 15:18 DCW [id number]) Manual Therapy Treatment Consent Patient gave verbal consent for manual Yes treatment Soft Tissue Mobilization Lumbar Body Location Lumbar paraspinals R>L, QL, Mobilization Type Strumming,Sustained Pressure, Trigger Point Release Intensity/Depth Moderate Body Position Prone Upper Trap Body Location R>L upper trap, scalenes Mobilization Type Sustained Pressure,Trigger Point Release Intensity/Depth Moderate Body Position Supine PT-OP-T Assessment and Plan Start: 06/26/24 17:48 Freq: Status: Active Protocol: Document 08/08/24 14:30 DCW (Rec: 08/08/24 15:18 DCW [id number]) Physical Therapy Assessment Impairments Impairments Activity Tolerance,Functional Activities,Functional Mobility ,Pain,Posture,ROM,Soft Tissue Mobility,Strength,Tone Goals Three Impairment SLR limited to 55? on R with lumbar pain due to increased muscle tone Snf Goal (LTG) Pt to exhibit a passive SLR to >70? bilaterally without pain in order to demonstrate improve flexibility of lumbar musculature and hamstring to improve functional mobility. LTG Duration 09/24/24 Two Impairment Pt leans to R in sitting or standing 70% of the time to decrease tension Cook Larder Goal (LTG) Pt to sit and stand with an upright posture 60% of the time without cues in order to demonstrate improved posture and decreased right-sided tone LTG Duration 09/24/24 One Impairment Pt does not have an appropriate home exercise program Short Term Goal (STG) Pt to be independent and compliant with an appropriate HEP STG Duration 07/26/24 Assessment Summary Assessment Pt tolerated treatment well today, continues to make slow progress following most recent surgery. Physical Therapy Plan Frequency and Duration Frequency of Treatment 2x/Week Plan of Care Start Date 06/26/24 Plan of Care End Date 09/24/24 Therapeutic Interventions Therapeutic Interventions Home Exercise Program,Joint Mobilizations,Manual Therapy, Neuromuscular Re-education, Patient/Caregiver Education, Self-Care/Home Management,Soft Tissue Mobilization,Taping, Therapeutic Activities, Therapeutic Exercises Modalities Cold Pack/Ice Massage,Hot Packs Next Visit Focus/Plan Next Note Type Treatment Note Next Visit Plan STM/joint mobs, core strengthening
--- NOTE | 2024-08-11 15:13 | PT.OTN ---
Current Diagnoses Stiffness of right shoulder, not elsewhere classified (08/11/24) Stiffness of other specified joint, not elsewhere classified (08/11/24) Other spondylosis with myelopathy, thoracic region (08/11/24) Physical Therapy Treatment Note PT-OP-A Visit Information Start: 06/26/24 17:48 Freq: Status: Active Protocol: Document 08/11/24 14:30 DCW (Rec: 08/11/24 15:12 DCW [id number]) Out-Patient Physical Therapy Visit Information Visit Information Visit Type Treatment Note Visit Start Time 14:30 Visit Stop Time 15:15 Visit Number 9 Number of COMMUTER TRAIN OPERATOR Visits 0 Evaluation Information Evaluation Date 06/26/24 PT-OP-B Current Condition Start: 06/26/24 17:48 Freq: Status: Active Protocol: Document 06/26/24 15:15 DCW (Rec: 06/27/24 08:43 DCW [id number]) Current Condition History of Current Condition Onset Date 05/09/24 Current Complaints Increased tone/stiffness along spine, difficulty standing upright, pain History of Current Condition Pt is a 59 year old male very well known to this clinic presenting seven weeks s/p thoracic spine surgery. Pt had a thoracic laminectomy and two miladis placed in his thoracic spine, fusing five vertebrae. This is in addition to multiple other spinal surgeries, including cervical fusion and a recent thoracic endoscopic surgery to prep for this most recent surgery. Pt is in the middle of multiple planned surgeries working to decrease compression on his spinal cord. Next planned surgery is a lumbar surgery, however pt does not know when this will be, reports he has a follow-up Jul 22 for planning . Notes that since his most recent surgery, he has been noticing increase in sensations in his legs and around his torso. Current complaints are muscle tightness, particularly in his right neck, lower right thoracic musculature, and right lumbar paraspinals. Pt often leans to the right in standing or sitting due to tightness, which worsens balance. Ambulates with a SPC, wears heavily altered shoes from local orthotic clinic, which has helped pt from repeated inversion sprains. Treatment Goals Patient/Caregiver Goals Pt's goal is to walk without pain, perform ADLs independently, and stand up straighter. PT-OP-C Subjective Start: 06/26/24 17:48 Freq: Status: Active Protocol: Document 08/11/24 14:30 DCW (Rec: 08/11/24 15:12 DCW [id number]) OP-PT Subjective Patient Comments Patient Comments I thought I was moving around pretty good, but then my knee kind of buckled on me coming in here. PT-OP-F Manual Assessment Start: 06/26/24 17:48 Freq: Status: Active Protocol: Document 06/26/24 15:15 DCW (Rec: 06/27/24 08:49 DCW [id number]) Manual Assessments Soft Tissue Assessment Soft Tissue Mobility Assessment Moderate tone right upper trap , scalenes. Moderate-severe tone in distal right lat/ serratus posterior, posterior external obliques PT-OP-K Range of Motion Start: 06/26/24 17:48 Freq: Status: Active Protocol: Document 06/26/24 15:15 DCW (Rec: 06/27/24 08:49 DCW [id number]) Cervical Spine Range of Motion Cervical Spine Active Degrees Testing Position Sitting Flexion 40 Extension 16 Rotation Left 32 Rotation Right 38 Lateral Flexion Left 30 Lateral Flexion Right 10 ROM Limitations Bony Restriction,Pain PT-OP-L Special Tests Start: 06/26/24 17:48 Freq: Status: Active Protocol: Document 06/26/24 15:15 DCW (Rec: 06/27/24 08:49 DCW [id number]) Special Tests Cervical Spine Special Tests Foraminal Compression Test Results Negative Lumbar Spine Special Tests Straight Leg Raise Test Results Moderate Bilateral pain, R 55? , L 70? PT-OP-Q Treatments Start: 06/26/24 17:48 Freq: Status: Active Protocol: Document 08/11/24 14:30 DCW (Rec: 08/11/24 15:12 DCW [id number]) Manual Therapy Treatment Consent Patient gave verbal consent for manual Yes treatment Soft Tissue Mobilization Lumbar Body Location Lumbar paraspinals R>L, QL, Mobilization Type Strumming,Sustained Pressure, Trigger Point Release Intensity/Depth Moderate Body Position Prone Upper Trap Body Location R>L upper trap, scalenes Mobilization Type Sustained Pressure,Trigger Point Release Intensity/Depth Moderate Body Position Supine PT-OP-T Assessment and Plan Start: 06/26/24 17:48 Freq: Status: Active Protocol: Document 08/11/24 14:30 DCW (Rec: 08/11/24 15:12 DCW [id number]) Physical Therapy Assessment Impairments Impairments Activity Tolerance,Functional Activities,Functional Mobility ,Pain,Posture,ROM,Soft Tissue Mobility,Strength,Tone Goals Three Impairment SLR limited to 55? on R with lumbar pain due to increased muscle tone Showroom Executive Director Goal (LTG) Pt to exhibit a passive SLR to >70? bilaterally without pain in order to demonstrate improve flexibility of lumbar musculature and hamstring to improve functional mobility. LTG Duration 09/24/24 Two Impairment Pt leans to R in sitting or standing 70% of the time to decrease tension Showroom Executive Director Goal (LTG) Pt to sit and stand with an upright posture 60% of the time without cues in order to demonstrate improved posture and decreased right-sided tone LTG Duration 09/24/24 One Impairment Pt does not have an appropriate home exercise program Short Term Goal (STG) Pt to be independent and compliant with an appropriate HEP STG Duration 07/26/24 Assessment Summary Assessment Pt feeling slightly higher tone today compared to last visit, but overall continues to show general improvement. Physical Therapy Plan Frequency and Duration Frequency of Treatment 2x/Week Plan of Care Start Date 06/26/24 Plan of Care End Date 09/24/24 Therapeutic Interventions Therapeutic Interventions Home Exercise Program,Joint Mobilizations,Manual Therapy, Neuromuscular Re-education, Patient/Caregiver Education, Self-Care/Home Management,Soft Tissue Mobilization,Taping, Therapeutic Activities, Therapeutic Exercises Modalities Cold Pack/Ice Massage,Hot Packs Next Visit Focus/Plan Next Note Type Treatment Note Next Visit Plan STM/joint mobs, core strengthening
--- NOTE | 2024-08-14 15:13 | PT.OTN ---
Current Diagnoses Stiffness of right shoulder, not elsewhere classified (08/14/24) Stiffness of other specified joint, not elsewhere classified (08/14/24) Other spondylosis with myelopathy, thoracic region (08/14/24) Physical Therapy Treatment Note PT-OP-A Visit Information Start: 06/26/24 17:48 Freq: Status: Active Protocol: Document 08/14/24 14:30 DCW (Rec: 08/14/24 15:12 DCW [id number]) Out-Patient Physical Therapy Visit Information Visit Information Visit Type Treatment Note Visit Start Time 14:30 Visit Stop Time 15:15 Visit Number 10 Number of BABY NURSE Visits 0 Evaluation Information Evaluation Date 06/26/24 PT-OP-B Current Condition Start: 06/26/24 17:48 Freq: Status: Active Protocol: Document 06/26/24 15:15 DCW (Rec: 06/27/24 08:43 DCW [id number]) Current Condition History of Current Condition Onset Date 05/09/24 Current Complaints Increased tone/stiffness along spine, difficulty standing upright, pain History of Current Condition Pt is a 59 year old male very well known to this clinic presenting seven weeks s/p thoracic spine surgery. Pt had a thoracic laminectomy and two miladis placed in his thoracic spine, fusing five vertebrae. This is in addition to multiple other spinal surgeries, including cervical fusion and a recent thoracic endoscopic surgery to prep for this most recent surgery. Pt is in the middle of multiple planned surgeries working to decrease compression on his spinal cord. Next planned surgery is a lumbar surgery, however pt does not know when this will be, reports he has a follow-up Jul 22 for planning . Notes that since his most recent surgery, he has been noticing increase in sensations in his legs and around his torso. Current complaints are muscle tightness, particularly in his right neck, lower right thoracic musculature, and right lumbar paraspinals. Pt often leans to the right in standing or sitting due to tightness, which worsens balance. Ambulates with a SPC, wears heavily altered shoes from local orthotic clinic, which has helped pt from repeated inversion sprains. Treatment Goals Patient/Caregiver Goals Pt's goal is to walk without pain, perform ADLs independently, and stand up straighter. PT-OP-C Subjective Start: 06/26/24 17:48 Freq: Status: Active Protocol: Document 08/14/24 14:30 DCW (Rec: 08/14/24 15:12 DCW [id number]) OP-PT Subjective Patient Comments Patient Comments Pt comes in today with a new set of shoes with custom orthotics, feels they are working fairly well. PT-OP-F Manual Assessment Start: 06/26/24 17:48 Freq: Status: Active Protocol: Document 06/26/24 15:15 DCW (Rec: 06/27/24 08:49 DCW [id number]) Manual Assessments Soft Tissue Assessment Soft Tissue Mobility Assessment Moderate tone right upper trap , scalenes. Moderate-severe tone in distal right lat/ serratus posterior, posterior external obliques PT-OP-K Range of Motion Start: 06/26/24 17:48 Freq: Status: Active Protocol: Document 06/26/24 15:15 DCW (Rec: 06/27/24 08:49 DCW [id number]) Cervical Spine Range of Motion Cervical Spine Active Degrees Testing Position Sitting Flexion 40 Extension 16 Rotation Left 32 Rotation Right 38 Lateral Flexion Left 30 Lateral Flexion Right 10 ROM Limitations Bony Restriction,Pain PT-OP-L Special Tests Start: 06/26/24 17:48 Freq: Status: Active Protocol: Document 06/26/24 15:15 DCW (Rec: 06/27/24 08:49 DCW [id number]) Special Tests Cervical Spine Special Tests Foraminal Compression Test Results Negative Lumbar Spine Special Tests Straight Leg Raise Test Results Moderate Bilateral pain, R 55? , L 70? PT-OP-Q Treatments Start: 06/26/24 17:48 Freq: Status: Active Protocol: Document 08/14/24 14:30 DCW (Rec: 08/14/24 15:12 DCW [id number]) Manual Therapy Treatment Consent Patient gave verbal consent for manual Yes treatment Soft Tissue Mobilization Lumbar Body Location Lumbar paraspinals R>L, QL, Mobilization Type Strumming,Sustained Pressure, Trigger Point Release Intensity/Depth Moderate Body Position Prone Upper Trap Body Location R>L upper trap, scalenes Mobilization Type Sustained Pressure,Trigger Point Release Intensity/Depth Moderate Body Position Supine PT-OP-T Assessment and Plan Start: 06/26/24 17:48 Freq: Status: Active Protocol: Document 08/14/24 14:30 DCW (Rec: 08/14/24 15:12 DCW [id number]) Physical Therapy Assessment Impairments Impairments Activity Tolerance,Functional Activities,Functional Mobility ,Pain,Posture,ROM,Soft Tissue Mobility,Strength,Tone Goals Three Impairment SLR limited to 55? on R with lumbar pain due to increased muscle tone Intermediate Goal (LTG) Pt to exhibit a passive SLR to >70? bilaterally without pain in order to demonstrate improve flexibility of lumbar musculature and hamstring to improve functional mobility. LTG Duration 09/24/24 Two Impairment Pt leans to R in sitting or standing 70% of the time to decrease tension Intermediate Goal (LTG) Pt to sit and stand with an upright posture 60% of the time without cues in order to demonstrate improved posture and decreased right-sided tone LTG Duration 09/24/24 One Impairment Pt does not have an appropriate home exercise program Short Term Goal (STG) Pt to be independent and compliant with an appropriate HEP STG Duration 07/26/24 Assessment Summary Assessment Pt feeling more upright after treatment, demonstrating good posture and improved LE stability. Physical Therapy Plan Frequency and Duration Frequency of Treatment 2x/Week Plan of Care Start Date 06/26/24 Plan of Care End Date 09/24/24 Therapeutic Interventions Therapeutic Interventions Home Exercise Program,Joint Mobilizations,Manual Therapy, Neuromuscular Re-education, Patient/Caregiver Education, Self-Care/Home Management,Soft Tissue Mobilization,Taping, Therapeutic Activities, Therapeutic Exercises Modalities Cold Pack/Ice Massage,Hot Packs Next Visit Focus/Plan Next Note Type Treatment Note Next Visit Plan STM/joint mobs, core strengthening
--- NOTE | 2024-08-14 15:22 | PT.OPPN ---
Current Diagnoses Stiffness of right shoulder, not elsewhere classified (08/14/24) Stiffness of other specified joint, not elsewhere classified (08/14/24) Other spondylosis with myelopathy, thoracic region (08/14/24) Physical Therapy Progress Note PT-OP-A Visit Information Start: 06/26/24 17:48 Freq: Status: Active Protocol: Document 08/14/24 14:30 DCW (Rec: 08/14/24 15:12 DCW [id number]) Out-Patient Physical Therapy Visit Information Visit Information Visit Type Treatment Note Visit Start Time 14:30 Visit Stop Time 15:15 Visit Number 10 Number of CELL BUILDER Visits 0 Evaluation Information Evaluation Date 06/26/24 PT-OP-B Current Condition Start: 06/26/24 17:48 Freq: Status: Active Protocol: Document 06/26/24 15:15 DCW (Rec: 06/27/24 08:43 DCW [id number]) Current Condition History of Current Condition Onset Date 05/09/24 Current Complaints Increased tone/stiffness along spine, difficulty standing upright, pain History of Current Condition Pt is a 59 year old male very well known to this clinic presenting seven weeks s/p thoracic spine surgery. Pt had a thoracic laminectomy and two miladis placed in his thoracic spine, fusing five vertebrae. This is in addition to multiple other spinal surgeries, including cervical fusion and a recent thoracic endoscopic surgery to prep for this most recent surgery. Pt is in the middle of multiple planned surgeries working to decrease compression on his spinal cord. Next planned surgery is a lumbar surgery, however pt does not know when this will be, reports he has a follow-up Jul 22 for planning . Notes that since his most recent surgery, he has been noticing increase in sensations in his legs and around his torso. Current complaints are muscle tightness, particularly in his right neck, lower right thoracic musculature, and right lumbar paraspinals. Pt often leans to the right in standing or sitting due to tightness, which worsens balance. Ambulates with a SPC, wears heavily altered shoes from local orthotic clinic, which has helped pt from repeated inversion sprains. Treatment Goals Patient/Caregiver Goals Pt's goal is to walk without pain, perform ADLs independently, and stand up straighter. PT-OP-C Subjective Start: 06/26/24 17:48 Freq: Status: Active Protocol: Document 08/14/24 14:30 DCW (Rec: 08/14/24 15:12 DCW [id number]) OP-PT Subjective Patient Comments Patient Comments Pt comes in today with a new set of shoes with custom orthotics, feels they are working fairly well. PT-OP-F Manual Assessment Start: 06/26/24 17:48 Freq: Status: Active Protocol: Document 06/26/24 15:15 DCW (Rec: 06/27/24 08:49 DCW [id number]) Manual Assessments Soft Tissue Assessment Soft Tissue Mobility Assessment Moderate tone right upper trap , scalenes. Moderate-severe tone in distal right lat/ serratus posterior, posterior external obliques PT-OP-K Range of Motion Start: 06/26/24 17:48 Freq: Status: Active Protocol: Document 06/26/24 15:15 DCW (Rec: 06/27/24 08:49 DCW [id number]) Cervical Spine Range of Motion Cervical Spine Active Degrees Testing Position Sitting Flexion 40 Extension 16 Rotation Left 32 Rotation Right 38 Lateral Flexion Left 30 Lateral Flexion Right 10 ROM Limitations Bony Restriction,Pain PT-OP-L Special Tests Start: 06/26/24 17:48 Freq: Status: Active Protocol: Document 06/26/24 15:15 DCW (Rec: 06/27/24 08:49 DCW [id number]) Special Tests Cervical Spine Special Tests Foraminal Compression Test Results Negative Lumbar Spine Special Tests Straight Leg Raise Test Results Moderate Bilateral pain, R 55? , L 70? PT-OP-T Assessment and Plan Start: 06/26/24 17:48 Freq: Status: Active Protocol: Document 08/14/24 14:30 DCW (Rec: 08/14/24 15:12 DCW [id number]) Physical Therapy Assessment Impairments Impairments Activity Tolerance,Functional Activities,Functional Mobility ,Pain,Posture,ROM,Soft Tissue Mobility,Strength,Tone Goals Three Impairment SLR limited to 55? on R with lumbar pain due to increased muscle tone [facility]cf Goal (LTG) Pt to exhibit a passive SLR to >70? bilaterally without pain in order to demonstrate improve flexibility of lumbar musculature and hamstring to improve functional mobility. LTG Duration 09/24/24 Two Impairment Pt leans to R in sitting or standing 70% of the time to decrease tension Vmware Consultant Goal (LTG) Pt to sit and stand with an upright posture 60% of the time without cues in order to demonstrate improved posture and decreased right-sided tone LTG Duration 09/24/24 One Impairment Pt does not have an appropriate home exercise program Short Term Goal (STG) Pt to be independent and compliant with an appropriate HEP STG Duration 07/26/24 Assessment Summary Assessment Pt feeling more upright after treatment, demonstrating good posture and improved LE stability. Physical Therapy Plan Frequency and Duration Frequency of Treatment 2x/Week Plan of Care Start Date 06/26/24 Plan of Care End Date 09/24/24 Therapeutic Interventions Therapeutic Interventions Home Exercise Program,Joint Mobilizations,Manual Therapy, Neuromuscular Re-education, Patient/Caregiver Education, Self-Care/Home Management,Soft Tissue Mobilization,Taping, Therapeutic Activities, Therapeutic Exercises Modalities Cold Pack/Ice Massage,Hot Packs Next Visit Focus/Plan Next Note Type Treatment Note Next Visit Plan STM/joint mobs, core strengthening
--- NOTE | 2024-08-19 15:16 | PT.OTN ---
Current Diagnoses Stiffness of right shoulder, not elsewhere classified (08/19/24) Stiffness of other specified joint, not elsewhere classified (08/19/24) Other spondylosis with myelopathy, thoracic region (08/19/24) Physical Therapy Treatment Note PT-OP-A Visit Information Start: 06/26/24 17:48 Freq: Status: Active Protocol: Document 08/19/24 14:30 DCW (Rec: 08/19/24 15:16 DCW [id number]) Out-Patient Physical Therapy Visit Information Visit Information Visit Type Treatment Note Visit Start Time 14:30 Visit Stop Time 15:15 Visit Number 11 Number of FLASH OVEN OPERATOR Visits 0 PT-OP-B Current Condition Start: 06/26/24 17:48 Freq: Status: Active Protocol: Document 06/26/24 15:15 DCW (Rec: 06/27/24 08:43 DCW [id number]) Current Condition History of Current Condition Onset Date 05/09/24 Current Complaints Increased tone/stiffness along spine, difficulty standing upright, pain History of Current Condition Pt is a 59 year old male very well known to this clinic presenting seven weeks s/p thoracic spine surgery. Pt had a thoracic laminectomy and two miladis placed in his thoracic spine, fusing five vertebrae. This is in addition to multiple other spinal surgeries, including cervical fusion and a recent thoracic endoscopic surgery to prep for this most recent surgery. Pt is in the middle of multiple planned surgeries working to decrease compression on his spinal cord. Next planned surgery is a lumbar surgery, however pt does not know when this will be, reports he has a follow-up Jul 22 for planning . Notes that since his most recent surgery, he has been noticing increase in sensations in his legs and around his torso. Current complaints are muscle tightness, particularly in his right neck, lower right thoracic musculature, and right lumbar paraspinals. Pt often leans to the right in standing or sitting due to tightness, which worsens balance. Ambulates with a SPC, wears heavily altered shoes from local orthotic clinic, which has helped pt from repeated inversion sprains. Treatment Goals Patient/Caregiver Goals Pt's goal is to walk without pain, perform ADLs independently, and stand up straighter. PT-OP-C Subjective Start: 06/26/24 17:48 Freq: Status: Active Protocol: Document 08/19/24 14:30 DCW (Rec: 08/19/24 15:16 DCW [id number]) OP-PT Subjective Patient Comments Patient Comments Pt notes his his back feels really tight. PT-OP-F Manual Assessment Start: 06/26/24 17:48 Freq: Status: Active Protocol: Document 06/26/24 15:15 DCW (Rec: 06/27/24 08:49 DCW [id number]) Manual Assessments Soft Tissue Assessment Soft Tissue Mobility Assessment Moderate tone right upper trap , scalenes. Moderate-severe tone in distal right lat/ serratus posterior, posterior external obliques PT-OP-K Range of Motion Start: 06/26/24 17:48 Freq: Status: Active Protocol: Document 06/26/24 15:15 DCW (Rec: 06/27/24 08:49 DCW [id number]) Cervical Spine Range of Motion Cervical Spine Active Degrees Testing Position Sitting Flexion 40 Extension 16 Rotation Left 32 Rotation Right 38 Lateral Flexion Left 30 Lateral Flexion Right 10 ROM Limitations Bony Restriction,Pain PT-OP-L Special Tests Start: 06/26/24 17:48 Freq: Status: Active Protocol: Document 06/26/24 15:15 DCW (Rec: 06/27/24 08:49 DCW [id number]) Special Tests Cervical Spine Special Tests Foraminal Compression Test Results Negative Lumbar Spine Special Tests Straight Leg Raise Test Results Moderate Bilateral pain, R 55? , L 70? PT-OP-Q Treatments Start: 06/26/24 17:48 Freq: Status: Active Protocol: Document 08/19/24 14:30 DCW (Rec: 08/19/24 15:16 DCW [id number]) Therapeutic Exercises Standing Exercises Extension Standing Exercise Name Resisted Trunk Extension Resistance Lv 5 Comments VCs for slow controlled movement Manual Therapy Treatment Consent Patient gave verbal consent for manual Yes treatment Soft Tissue Mobilization Lumbar Body Location Lumbar paraspinals R>L, QL, Mobilization Type Strumming,Sustained Pressure, Trigger Point Release Intensity/Depth Moderate Body Position Prone Upper Trap Body Location R>L upper trap, scalenes Mobilization Type Sustained Pressure,Trigger Point Release Intensity/Depth Moderate Body Position Supine PT-OP-T Assessment and Plan Start: 06/26/24 17:48 Freq: Status: Active Protocol: Document 08/19/24 14:30 DCW (Rec: 08/19/24 15:16 DCW [id number]) Physical Therapy Assessment Impairments Impairments Activity Tolerance,Functional Activities,Functional Mobility ,Pain,Posture,ROM,Soft Tissue Mobility,Strength,Tone Goals Three Impairment SLR limited to 55? on R with lumbar pain due to increased muscle tone Chcf Goal (LTG) Pt to exhibit a passive SLR to >70? bilaterally without pain in order to demonstrate improve flexibility of lumbar musculature and hamstring to improve functional mobility. LTG Duration 09/24/24 Two Impairment Pt leans to R in sitting or standing 70% of the time to decrease tension Chcf Goal (LTG) Pt to sit and stand with an upright posture 60% of the time without cues in order to demonstrate improved posture and decreased right-sided tone LTG Duration 09/24/24 One Impairment Pt does not have an appropriate home exercise program Short Term Goal (STG) Pt to be independent and compliant with an appropriate HEP STG Duration 07/26/24 Assessment Summary Assessment Working on adding some gentle strengthening to HEP. Pt demonstrating improvement in functional mobility and standing posture. Physical Therapy Plan Frequency and Duration Frequency of Treatment 2x/Week Plan of Care Start Date 06/26/24 Plan of Care End Date 09/24/24 Therapeutic Interventions Therapeutic Interventions Home Exercise Program,Joint Mobilizations,Manual Therapy, Neuromuscular Re-education, Patient/Caregiver Education, Self-Care/Home Management,Soft Tissue Mobilization,Taping, Therapeutic Activities, Therapeutic Exercises Modalities Cold Pack/Ice Massage,Hot Packs Next Visit Focus/Plan Next Note Type Treatment Note Next Visit Plan STM/joint mobs, core strengthening
--- NOTE | 2024-08-21 15:16 | PT.OTN ---
Current Diagnoses Stiffness of right shoulder, not elsewhere classified (08/21/24) Stiffness of other specified joint, not elsewhere classified (08/21/24) Other spondylosis with myelopathy, thoracic region (08/21/24) Physical Therapy Treatment Note PT-OP-A Visit Information Start: 06/26/24 17:48 Freq: Status: Active Protocol: Document 08/21/24 14:30 DCW (Rec: 08/21/24 15:16 DCW [id number]) Out-Patient Physical Therapy Visit Information Visit Information Visit Type Treatment Note Visit Start Time 14:30 Visit Stop Time 15:15 Visit Number 12 Number of MACHINE FEEDER FLOORPERSON Visits 0 Evaluation Information Evaluation Date 06/26/24 PT-OP-B Current Condition Start: 06/26/24 17:48 Freq: Status: Active Protocol: Document 06/26/24 15:15 DCW (Rec: 06/27/24 08:43 DCW [id number]) Current Condition History of Current Condition Onset Date 05/09/24 Current Complaints Increased tone/stiffness along spine, difficulty standing upright, pain History of Current Condition Pt is a 59 year old male very well known to this clinic presenting seven weeks s/p thoracic spine surgery. Pt had a thoracic laminectomy and two miladis placed in his thoracic spine, fusing five vertebrae. This is in addition to multiple other spinal surgeries, including cervical fusion and a recent thoracic endoscopic surgery to prep for this most recent surgery. Pt is in the middle of multiple planned surgeries working to decrease compression on his spinal cord. Next planned surgery is a lumbar surgery, however pt does not know when this will be, reports he has a follow-up Jul 22 for planning . Notes that since his most recent surgery, he has been noticing increase in sensations in his legs and around his torso. Current complaints are muscle tightness, particularly in his right neck, lower right thoracic musculature, and right lumbar paraspinals. Pt often leans to the right in standing or sitting due to tightness, which worsens balance. Ambulates with a SPC, wears heavily altered shoes from local orthotic clinic, which has helped pt from repeated inversion sprains. Treatment Goals Patient/Caregiver Goals Pt's goal is to walk without pain, perform ADLs independently, and stand up straighter. PT-OP-C Subjective Start: 06/26/24 17:48 Freq: Status: Active Protocol: Document 08/21/24 14:30 DCW (Rec: 08/21/24 15:16 DCW [id number]) OP-PT Subjective Patient Comments Patient Comments Wearing back brace today, claims he feels it makes him like he is a little more upright. PT-OP-F Manual Assessment Start: 06/26/24 17:48 Freq: Status: Active Protocol: Document 06/26/24 15:15 DCW (Rec: 06/27/24 08:49 DCW [id number]) Manual Assessments Soft Tissue Assessment Soft Tissue Mobility Assessment Moderate tone right upper trap , scalenes. Moderate-severe tone in distal right lat/ serratus posterior, posterior external obliques PT-OP-K Range of Motion Start: 06/26/24 17:48 Freq: Status: Active Protocol: Document 06/26/24 15:15 DCW (Rec: 06/27/24 08:49 DCW [id number]) Cervical Spine Range of Motion Cervical Spine Active Degrees Testing Position Sitting Flexion 40 Extension 16 Rotation Left 32 Rotation Right 38 Lateral Flexion Left 30 Lateral Flexion Right 10 ROM Limitations Bony Restriction,Pain PT-OP-L Special Tests Start: 06/26/24 17:48 Freq: Status: Active Protocol: Document 06/26/24 15:15 DCW (Rec: 06/27/24 08:49 DCW [id number]) Special Tests Cervical Spine Special Tests Foraminal Compression Test Results Negative Lumbar Spine Special Tests Straight Leg Raise Test Results Moderate Bilateral pain, R 55? , L 70? PT-OP-Q Treatments Start: 06/26/24 17:48 Freq: Status: Active Protocol: Document 08/21/24 14:30 DCW (Rec: 08/21/24 15:16 DCW [id number]) Manual Therapy Treatment Consent Patient gave verbal consent for manual Yes treatment Soft Tissue Mobilization Lumbar Body Location Lumbar paraspinals R>L, QL, Mobilization Type Strumming,Sustained Pressure, Trigger Point Release Intensity/Depth Moderate Body Position Prone Upper Trap Body Location R>L upper trap, scalenes Mobilization Type Sustained Pressure,Trigger Point Release Intensity/Depth Moderate Body Position Supine PT-OP-T Assessment and Plan Start: 06/26/24 17:48 Freq: Status: Active Protocol: Document 08/21/24 14:30 DCW (Rec: 08/21/24 15:16 DCW [id number]) Physical Therapy Assessment Impairments Impairments Activity Tolerance,Functional Activities,Functional Mobility ,Pain,Posture,ROM,Soft Tissue Mobility,Strength,Tone Goals Three Impairment SLR limited to 55? on R with lumbar pain due to increased muscle tone Residential Goal (LTG) Pt to exhibit a passive SLR to >70? bilaterally without pain in order to demonstrate improve flexibility of lumbar musculature and hamstring to improve functional mobility. LTG Duration 09/24/24 Two Impairment Pt leans to R in sitting or standing 70% of the time to decrease tension Residential Goal (LTG) Pt to sit and stand with an upright posture 60% of the time without cues in order to demonstrate improved posture and decreased right-sided tone LTG Duration 09/24/24 One Impairment Pt does not have an appropriate home exercise program Short Term Goal (STG) Pt to be independent and compliant with an appropriate HEP STG Duration 07/26/24 Assessment Summary Assessment Therapist did not note much change in posture with back brace, but agreeable that if pt feels better with it, to continue wearing for comfort. Continue with functional movement, STM, TrP, and strengthening Physical Therapy Plan Frequency and Duration Frequency of Treatment 2x/Week Plan of Care Start Date 06/26/24 Plan of Care End Date 09/24/24 Therapeutic Interventions Therapeutic Interventions Home Exercise Program,Joint Mobilizations,Manual Therapy, Neuromuscular Re-education, Patient/Caregiver Education, Self-Care/Home Management,Soft Tissue Mobilization,Taping, Therapeutic Activities, Therapeutic Exercises Modalities Cold Pack/Ice Massage,Hot Packs Next Visit Focus/Plan Next Note Type Treatment Note Next Visit Plan STM/joint mobs, core strengthening
--- NOTE | 2024-08-25 15:21 | PT.OTN ---
Current Diagnoses Stiffness of right shoulder, not elsewhere classified (08/25/24) Stiffness of other specified joint, not elsewhere classified (08/25/24) Other spondylosis with myelopathy, thoracic region (08/25/24) Physical Therapy Treatment Note PT-OP-A Visit Information Start: 06/26/24 17:48 Freq: Status: Active Protocol: Document 08/25/24 14:30 DCW (Rec: 08/25/24 15:20 DCW [id number]) Out-Patient Physical Therapy Visit Information Visit Information Visit Type Treatment Note Visit Start Time 14:30 Visit Stop Time 15:15 Visit Number 13 Number of PATTERN WHEEL MAKER Visits 0 Evaluation Information Evaluation Date 06/26/24 PT-OP-B Current Condition Start: 06/26/24 17:48 Freq: Status: Active Protocol: Document 06/26/24 15:15 DCW (Rec: 06/27/24 08:43 DCW [id number]) Current Condition History of Current Condition Onset Date 05/09/24 Current Complaints Increased tone/stiffness along spine, difficulty standing upright, pain History of Current Condition Pt is a 59 year old male very well known to this clinic presenting seven weeks s/p thoracic spine surgery. Pt had a thoracic laminectomy and two miladis placed in his thoracic spine, fusing five vertebrae. This is in addition to multiple other spinal surgeries, including cervical fusion and a recent thoracic endoscopic surgery to prep for this most recent surgery. Pt is in the middle of multiple planned surgeries working to decrease compression on his spinal cord. Next planned surgery is a lumbar surgery, however pt does not know when this will be, reports he has a follow-up Jul 22 for planning . Notes that since his most recent surgery, he has been noticing increase in sensations in his legs and around his torso. Current complaints are muscle tightness, particularly in his right neck, lower right thoracic musculature, and right lumbar paraspinals. Pt often leans to the right in standing or sitting due to tightness, which worsens balance. Ambulates with a SPC, wears heavily altered shoes from local orthotic clinic, which has helped pt from repeated inversion sprains. Treatment Goals Patient/Caregiver Goals Pt's goal is to walk without pain, perform ADLs independently, and stand up straighter. PT-OP-C Subjective Start: 06/26/24 17:48 Freq: Status: Active Protocol: Document 08/25/24 14:30 DCW (Rec: 08/25/24 15:20 DCW [id number]) OP-PT Subjective Patient Comments Patient Comments Pt somewhat sore today, increased difficulty with upright posture. PT-OP-F Manual Assessment Start: 06/26/24 17:48 Freq: Status: Active Protocol: Document 06/26/24 15:15 DCW (Rec: 06/27/24 08:49 DCW [id number]) Manual Assessments Soft Tissue Assessment Soft Tissue Mobility Assessment Moderate tone right upper trap , scalenes. Moderate-severe tone in distal right lat/ serratus posterior, posterior external obliques PT-OP-K Range of Motion Start: 06/26/24 17:48 Freq: Status: Active Protocol: Document 06/26/24 15:15 DCW (Rec: 06/27/24 08:49 DCW [id number]) Cervical Spine Range of Motion Cervical Spine Active Degrees Testing Position Sitting Flexion 40 Extension 16 Rotation Left 32 Rotation Right 38 Lateral Flexion Left 30 Lateral Flexion Right 10 ROM Limitations Bony Restriction,Pain PT-OP-L Special Tests Start: 06/26/24 17:48 Freq: Status: Active Protocol: Document 06/26/24 15:15 DCW (Rec: 06/27/24 08:49 DCW [id number]) Special Tests Cervical Spine Special Tests Foraminal Compression Test Results Negative Lumbar Spine Special Tests Straight Leg Raise Test Results Moderate Bilateral pain, R 55? , L 70? PT-OP-Q Treatments Start: 06/26/24 17:48 Freq: Status: Active Protocol: Document 08/25/24 14:30 DCW (Rec: 08/25/24 15:20 DCW [id number]) Therapeutic Exercises Sitting Exercises Trunk Rotation Sitting Exercise Name Resisted Trunk Rotation Side bilateral Resistance Lv 5 Rows Sitting Exercise Name Rows Side bilateral Resistance Lv 5 Pallof Press Sitting Exercise Name Seated Pallof Press Side bilateral Resistance Lv 5 Manual Therapy Treatment Consent Patient gave verbal consent for manual Yes treatment Soft Tissue Mobilization Lumbar Body Location Lumbar paraspinals R>L, QL, Mobilization Type Strumming,Sustained Pressure, Trigger Point Release Intensity/Depth Moderate Body Position Prone Upper Trap Body Location R>L upper trap, scalenes Mobilization Type Sustained Pressure,Trigger Point Release Intensity/Depth Moderate Body Position Supine PT-OP-T Assessment and Plan Start: 06/26/24 17:48 Freq: Status: Active Protocol: Document 08/25/24 14:30 DCW (Rec: 08/25/24 15:20 DCW [id number]) Physical Therapy Assessment Impairments Impairments Activity Tolerance,Functional Activities,Functional Mobility ,Pain,Posture,ROM,Soft Tissue Mobility,Strength,Tone Goals Three Impairment SLR limited to 55? on R with lumbar pain due to increased muscle tone Environmental Engineering Professor Goal (LTG) Pt to exhibit a passive SLR to >70? bilaterally without pain in order to demonstrate improve flexibility of lumbar musculature and hamstring to improve functional mobility. LTG Duration 09/24/24 Two Impairment Pt leans to R in sitting or standing 70% of the time to decrease tension Environmental Engineering Professor Goal (LTG) Pt to sit and stand with an upright posture 60% of the time without cues in order to demonstrate improved posture and decreased right-sided tone LTG Duration 09/24/24 One Impairment Pt does not have an appropriate home exercise program Short Term Goal (STG) Pt to be independent and compliant with an appropriate HEP STG Duration 09/15/23 Assessment Summary Assessment Good response to treatment today, happy to add Pallof Press and trunk rotation to HEP. Improved posture following treatment. Physical Therapy Plan Frequency and Duration Frequency of Treatment 2x/Week Plan of Care Start Date 06/26/24 Plan of Care End Date 09/24/24 Therapeutic Interventions Therapeutic Interventions Home Exercise Program,Joint Mobilizations,Manual Therapy, Neuromuscular Re-education, Patient/Caregiver Education, Self-Care/Home Management,Soft Tissue Mobilization,Taping, Therapeutic Activities, Therapeutic Exercises Modalities Cold Pack/Ice Massage,Hot Packs Next Visit Focus/Plan Next Note Type Treatment Note Next Visit Plan STM/joint mobs, core strengthening
--- NOTE | 2024-08-27 14:31 | PT.OTN ---
Current Diagnoses Stiffness of right shoulder, not elsewhere classified (08/27/24) Stiffness of other specified joint, not elsewhere classified (08/27/24) Other spondylosis with myelopathy, thoracic region (08/27/24) Physical Therapy Treatment Note PT-OP-A Visit Information Start: 06/26/24 17:48 Freq: Status: Active Protocol: Document 08/27/24 13:46 MB (Rec: 08/27/24 14:31 MB [id number]) Out-Patient Physical Therapy Visit Information Visit Information Visit Type Treatment Note Visit Start Time 13:46 Visit Stop Time 14:26 Visit Number 14 Number of INSIDE SALES MANAGER Visits 0 Evaluation Information Evaluation Date 06/26/24 PT-OP-B Current Condition Start: 06/26/24 17:48 Freq: Status: Active Protocol: Document 06/26/24 15:15 DCW (Rec: 06/27/24 08:43 DCW [id number]) Current Condition History of Current Condition Onset Date 05/09/24 Current Complaints Increased tone/stiffness along spine, difficulty standing upright, pain History of Current Condition Pt is a 59 year old male very well known to this clinic presenting seven weeks s/p thoracic spine surgery. Pt had a thoracic laminectomy and two miladis placed in his thoracic spine, fusing five vertebrae. This is in addition to multiple other spinal surgeries, including cervical fusion and a recent thoracic endoscopic surgery to prep for this most recent surgery. Pt is in the middle of multiple planned surgeries working to decrease compression on his spinal cord. Next planned surgery is a lumbar surgery, however pt does not know when this will be, reports he has a follow-up Jul 22 for planning . Notes that since his most recent surgery, he has been noticing increase in sensations in his legs and around his torso. Current complaints are muscle tightness, particularly in his right neck, lower right thoracic musculature, and right lumbar paraspinals. Pt often leans to the right in standing or sitting due to tightness, which worsens balance. Ambulates with a SPC, wears heavily altered shoes from local orthotic clinic, which has helped pt from repeated inversion sprains. Treatment Goals Patient/Caregiver Goals Pt's goal is to walk without pain, perform ADLs independently, and stand up straighter. 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 PT-OP-F Manual Assessment Start: 06/26/24 17:48 Freq: Status: Active Protocol: Document 06/26/24 15:15 DCW (Rec: 06/27/24 08:49 DCW [id number]) Manual Assessments Soft Tissue Assessment Soft Tissue Mobility Assessment Moderate tone right upper trap , scalenes. Moderate-severe tone in distal right lat/ serratus posterior, posterior external obliques PT-OP-K Range of Motion Start: 06/26/24 17:48 Freq: Status: Active Protocol: Document 06/26/24 15:15 DCW (Rec: 06/27/24 08:49 DCW [id number]) Cervical Spine Range of Motion Cervical Spine Active Degrees Testing Position Sitting Flexion 40 Extension 16 Rotation Left 32 Rotation Right 38 Lateral Flexion Left 30 Lateral Flexion Right 10 ROM Limitations Bony Restriction,Pain PT-OP-L Special Tests Start: 06/26/24 17:48 Freq: Status: Active Protocol: Document 06/26/24 15:15 DCW (Rec: 06/27/24 08:49 DCW [id number]) Special Tests Cervical Spine Special Tests Foraminal Compression Test Results Negative Lumbar Spine Special Tests Straight Leg Raise Test Results Moderate Bilateral pain, R 55? , L 70? PT-OP-Q Treatments Start: 06/26/24 17:48 Freq: Status: Active Protocol: Document 08/27/24 13:46 MB (Rec: 08/27/24 14:31 MB [id number]) Manual Therapy Treatment Consent Patient gave verbal consent for manual Yes treatment Other Other Manual Treatments Pt side lying: B rib recoil to improve thoracic, paraspinal, QL mobility, STM B TFL, vastus lateralis and PFs PT-OP-T Assessment and Plan Start: 06/26/24 17:48 Freq: Status: Active Protocol: Document 08/27/24 13:46 MB (Rec: 08/27/24 14:31 MB [id number]) Physical Therapy Assessment Rehab Potential Rehabilitation Potential Fair Evaluation Complexity Number of Personal Factors/Comorbidities 3 or More Number of Body Systems Impaired 4 or More Clinical Presentation at Evaluation Unstable Impairments Impairments Activity Tolerance,Functional Activities,Functional Mobility ,Pain,Posture,ROM,Soft Tissue Mobility,Strength,Tone Goals Three Impairment SLR limited to 55? on R with lumbar pain due to increased muscle tone [facility]ci Goal (LTG) Pt to exhibit a passive SLR to >70? bilaterally without pain in order to demonstrate improve flexibility of lumbar musculature and hamstring to improve functional mobility. LTG Duration 09/24/24 Two Impairment Pt leans to R in sitting or standing 70% of the time to decrease tension Fci Goal (LTG) Pt to sit and stand with an upright posture 60% of the time without cues in order to demonstrate improved posture and decreased right-sided tone LTG Duration 09/24/24 One Impairment Pt does not have an appropriate home exercise program Short Term Goal (STG) Pt to be independent and compliant with an appropriate HEP STG Duration 09/15/23 Assessment Summary Assessment Good response to muscle energy and STM today, pt in side lying position with head and thoracic spine and legs supported and arm underhead. Physical Therapy Plan Frequency and Duration Frequency of Treatment 2x/Week Plan of Care Start Date 06/26/24 Plan of Care End Date 09/24/24 Therapeutic Interventions Therapeutic Interventions Home Exercise Program,Joint Mobilizations,Manual Therapy, Neuromuscular Re-education, Patient/Caregiver Education, Self-Care/Home Management,Soft Tissue Mobilization,Taping, Therapeutic Activities, Therapeutic Exercises Modalities Cold Pack/Ice Massage,Hot Packs Next Visit Focus/Plan Next Note Type Treatment Note Next Visit Plan STM/joint mobs, core strengthening
--- NOTE | 2024-09-01 15:15 | PT.OTN ---
Current Diagnoses Stiffness of right shoulder, not elsewhere classified (09/01/24) Stiffness of other specified joint, not elsewhere classified (09/01/24) Other spondylosis with myelopathy, thoracic region (09/01/24) Physical Therapy Treatment Note PT-OP-A Visit Information Start: 06/26/24 17:48 Freq: Status: Active Protocol: Document 09/01/24 14:30 DCW (Rec: 09/01/24 15:15 DCW [id number]) Out-Patient Physical Therapy Visit Information Visit Information Visit Type Treatment Note Visit Start Time 14:30 Visit Stop Time 15:15 Visit Number 15 Number of CHASSIS INSPECTOR Visits 0 Evaluation Information Evaluation Date 06/26/24 PT-OP-B Current Condition Start: 06/26/24 17:48 Freq: Status: Active Protocol: Document 06/26/24 15:15 DCW (Rec: 06/27/24 08:43 DCW [id number]) Current Condition History of Current Condition Onset Date 05/09/24 Current Complaints Increased tone/stiffness along spine, difficulty standing upright, pain History of Current Condition Pt is a 59 year old male very well known to this clinic presenting seven weeks s/p thoracic spine surgery. Pt had a thoracic laminectomy and two miladis placed in his thoracic spine, fusing five vertebrae. This is in addition to multiple other spinal surgeries, including cervical fusion and a recent thoracic endoscopic surgery to prep for this most recent surgery. Pt is in the middle of multiple planned surgeries working to decrease compression on his spinal cord. Next planned surgery is a lumbar surgery, however pt does not know when this will be, reports he has a follow-up Jul 22 for planning . Notes that since his most recent surgery, he has been noticing increase in sensations in his legs and around his torso. Current complaints are muscle tightness, particularly in his right neck, lower right thoracic musculature, and right lumbar paraspinals. Pt often leans to the right in standing or sitting due to tightness, which worsens balance. Ambulates with a SPC, wears heavily altered shoes from local orthotic clinic, which has helped pt from repeated inversion sprains. Treatment Goals Patient/Caregiver Goals Pt's goal is to walk without pain, perform ADLs independently, and stand up straighter. PT-OP-C Subjective Start: 06/26/24 17:48 Freq: Status: Active Protocol: Document 09/01/24 14:30 DCW (Rec: 09/01/24 15:15 DCW [id number]) OP-PT Subjective Patient Comments Patient Comments Pt reports he has been sore following his last visit. Is having a procedure next week to drain some fluid build up in his abdomen. PT-OP-F Manual Assessment Start: 06/26/24 17:48 Freq: Status: Active Protocol: Document 06/26/24 15:15 DCW (Rec: 06/27/24 08:49 DCW [id number]) Manual Assessments Soft Tissue Assessment Soft Tissue Mobility Assessment Moderate tone right upper trap , scalenes. Moderate-severe tone in distal right lat/ serratus posterior, posterior external obliques PT-OP-K Range of Motion Start: 06/26/24 17:48 Freq: Status: Active Protocol: Document 06/26/24 15:15 DCW (Rec: 06/27/24 08:49 DCW [id number]) Cervical Spine Range of Motion Cervical Spine Active Degrees Testing Position Sitting Flexion 40 Extension 16 Rotation Left 32 Rotation Right 38 Lateral Flexion Left 30 Lateral Flexion Right 10 ROM Limitations Bony Restriction,Pain PT-OP-L Special Tests Start: 06/26/24 17:48 Freq: Status: Active Protocol: Document 06/26/24 15:15 DCW (Rec: 06/27/24 08:49 DCW [id number]) Special Tests Cervical Spine Special Tests Foraminal Compression Test Results Negative Lumbar Spine Special Tests Straight Leg Raise Test Results Moderate Bilateral pain, R 55? , L 70? PT-OP-Q Treatments Start: 06/26/24 17:48 Freq: Status: Active Protocol: Document 09/01/24 14:30 DCW (Rec: 09/01/24 15:15 DCW [id number]) Manual Therapy Treatment Consent Patient gave verbal consent for manual Yes treatment Soft Tissue Mobilization Lumbar Body Location Lumbar paraspinals R>L, QL, Mobilization Type Strumming,Sustained Pressure, Trigger Point Release Intensity/Depth Moderate Body Position Prone Upper Trap Body Location R>L upper trap, scalenes Mobilization Type Sustained Pressure,Trigger Point Release Intensity/Depth Moderate Body Position Supine PT-OP-T Assessment and Plan Start: 06/26/24 17:48 Freq: Status: Active Protocol: Document 09/01/24 14:30 DCW (Rec: 09/01/24 15:15 DCW [id number]) Physical Therapy Assessment Impairments Impairments Activity Tolerance,Functional Activities,Functional Mobility ,Pain,Posture,ROM,Soft Tissue Mobility,Strength,Tone Goals Three Impairment SLR limited to 55? on R with lumbar pain due to increased muscle tone [facility] Goal (LTG) Pt to exhibit a passive SLR to >70? bilaterally without pain in order to demonstrate improve flexibility of lumbar musculature and hamstring to improve functional mobility. LTG Duration 09/24/24 Two Impairment Pt leans to R in sitting or standing 70% of the time to decrease tension Track Repair Supervisor Goal (LTG) Pt to sit and stand with an upright posture 60% of the time without cues in order to demonstrate improved posture and decreased right-sided tone LTG Duration 09/24/24 One Impairment Pt does not have an appropriate home exercise program Short Term Goal (STG) Pt to be independent and compliant with an appropriate HEP STG Duration 09/15/23 Assessment Summary Assessment Pt feeling better after treatment today, has not been able to add to his HEP since he was sore recently. Will have to determine how to proceed with PT with pt's drainage next week. Physical Therapy Plan Frequency and Duration Frequency of Treatment 2x/Week Plan of Care Start Date 06/26/24 Plan of Care End Date 09/24/24 Therapeutic Interventions Therapeutic Interventions Home Exercise Program,Joint Mobilizations,Manual Therapy, Neuromuscular Re-education, Patient/Caregiver Education, Self-Care/Home Management,Soft Tissue Mobilization,Taping, Therapeutic Activities, Therapeutic Exercises Modalities Cold Pack/Ice Massage,Hot Packs Next Visit Focus/Plan Next Note Type Treatment Note Next Visit Plan STM/joint mobs, core strengthening
--- NOTE | 2024-09-04 15:12 | PT.OTN ---
Current Diagnoses Stiffness of right shoulder, not elsewhere classified (09/04/24) Stiffness of other specified joint, not elsewhere classified (09/04/24) Other spondylosis with myelopathy, thoracic region (09/04/24) Physical Therapy Treatment Note PT-OP-A Visit Information Start: 06/26/24 17:48 Freq: Status: Active Protocol: Document 09/04/24 14:30 DCW (Rec: 09/04/24 15:11 DCW [id number]) Out-Patient Physical Therapy Visit Information Visit Information Visit Type Treatment Note Visit Start Time 14:30 Visit Stop Time 15:15 Visit Number 16 Number of MAGAZINE HAND Visits 0 Evaluation Information Evaluation Date 06/26/24 PT-OP-B Current Condition Start: 06/26/24 17:48 Freq: Status: Active Protocol: Document 06/26/24 15:15 DCW (Rec: 06/27/24 08:43 DCW [id number]) Current Condition History of Current Condition Onset Date 05/09/24 Current Complaints Increased tone/stiffness along spine, difficulty standing upright, pain History of Current Condition Pt is a 59 year old male very well known to this clinic presenting seven weeks s/p thoracic spine surgery. Pt had a thoracic laminectomy and two miladis placed in his thoracic spine, fusing five vertebrae. This is in addition to multiple other spinal surgeries, including cervical fusion and a recent thoracic endoscopic surgery to prep for this most recent surgery. Pt is in the middle of multiple planned surgeries working to decrease compression on his spinal cord. Next planned surgery is a lumbar surgery, however pt does not know when this will be, reports he has a follow-up Jul 22 for planning . Notes that since his most recent surgery, he has been noticing increase in sensations in his legs and around his torso. Current complaints are muscle tightness, particularly in his right neck, lower right thoracic musculature, and right lumbar paraspinals. Pt often leans to the right in standing or sitting due to tightness, which worsens balance. Ambulates with a SPC, wears heavily altered shoes from local orthotic clinic, which has helped pt from repeated inversion sprains. Treatment Goals Patient/Caregiver Goals Pt's goal is to walk without pain, perform ADLs independently, and stand up straighter. PT-OP-C Subjective Start: 06/26/24 17:48 Freq: Status: Active Protocol: Document 09/04/24 14:30 DCW (Rec: 09/04/24 15:11 DCW [id number]) OP-PT Subjective Patient Comments Patient Comments I always have trouble with htis recovery stuff. There is just a few great days, and then there PT-OP-F Manual Assessment Start: 06/26/24 17:48 Freq: Status: Active Protocol: Document 06/26/24 15:15 DCW (Rec: 06/27/24 08:49 DCW [id number]) Manual Assessments Soft Tissue Assessment Soft Tissue Mobility Assessment Moderate tone right upper trap , scalenes. Moderate-severe tone in distal right lat/ serratus posterior, posterior external obliques PT-OP-K Range of Motion Start: 06/26/24 17:48 Freq: Status: Active Protocol: Document 06/26/24 15:15 DCW (Rec: 06/27/24 08:49 DCW [id number]) Cervical Spine Range of Motion Cervical Spine Active Degrees Testing Position Sitting Flexion 40 Extension 16 Rotation Left 32 Rotation Right 38 Lateral Flexion Left 30 Lateral Flexion Right 10 ROM Limitations Bony Restriction,Pain PT-OP-L Special Tests Start: 06/26/24 17:48 Freq: Status: Active Protocol: Document 06/26/24 15:15 DCW (Rec: 06/27/24 08:49 DCW [id number]) Special Tests Cervical Spine Special Tests Foraminal Compression Test Results Negative Lumbar Spine Special Tests Straight Leg Raise Test Results Moderate Bilateral pain, R 55? , L 70? PT-OP-Q Treatments Start: 06/26/24 17:48 Freq: Status: Active Protocol: Document 09/04/24 14:30 DCW (Rec: 09/04/24 15:11 DCW [id number]) Manual Therapy Treatment Consent Patient gave verbal consent for manual Yes treatment Soft Tissue Mobilization Lumbar Body Location Lumbar paraspinals R>L, QL, Mobilization Type Strumming,Sustained Pressure, Trigger Point Release Intensity/Depth Moderate Body Position Prone Upper Trap Body Location R>L upper trap, scalenes Mobilization Type Sustained Pressure,Trigger Point Release Intensity/Depth Moderate Body Position Supine PT-OP-T Assessment and Plan Start: 06/26/24 17:48 Freq: Status: Active Protocol: Document 09/04/24 14:30 DCW (Rec: 09/04/24 15:11 DCW [id number]) Physical Therapy Assessment Impairments Impairments Activity Tolerance,Functional Activities,Functional Mobility ,Pain,Posture,ROM,Soft Tissue Mobility,Strength,Tone Goals Three Impairment SLR limited to 55? on R with lumbar pain due to increased muscle tone Steam Cleaning Machine Operator Goal (LTG) Pt to exhibit a passive SLR to >70? bilaterally without pain in order to demonstrate improve flexibility of lumbar musculature and hamstring to improve functional mobility. LTG Duration 09/24/24 Two Impairment Pt leans to R in sitting or standing 70% of the time to decrease tension Steam Cleaning Machine Operator Goal (LTG) Pt to sit and stand with an upright posture 60% of the time without cues in order to demonstrate improved posture and decreased right-sided tone LTG Duration 09/24/24 One Impairment Pt does not have an appropriate home exercise program Short Term Goal (STG) Pt to be independent and compliant with an appropriate HEP STG Duration 09/15/23 Assessment Summary Assessment Pt noted much improvement since entering clinic today. Improved upright posture and gait. Physical Therapy Plan Frequency and Duration Frequency of Treatment 2x/Week Plan of Care Start Date 06/26/24 Plan of Care End Date 09/24/24 Therapeutic Interventions Therapeutic Interventions Home Exercise Program,Joint Mobilizations,Manual Therapy, Neuromuscular Re-education, Patient/Caregiver Education, Self-Care/Home Management,Soft Tissue Mobilization,Taping, Therapeutic Activities, Therapeutic Exercises Modalities Cold Pack/Ice Massage,Hot Packs Next Visit Focus/Plan Next Note Type Treatment Note Next Visit Plan STM/joint mobs, core strengthening
--- NOTE | 2024-09-08 15:13 | PT.OTN ---
Current Diagnoses Stiffness of right shoulder, not elsewhere classified (09/08/24) Stiffness of other specified joint, not elsewhere classified (09/08/24) Other spondylosis with myelopathy, thoracic region (09/08/24) Physical Therapy Treatment Note PT-OP-A Visit Information Start: 06/26/24 17:48 Freq: Status: Active Protocol: Document 09/08/24 14:30 DCW (Rec: 09/08/24 15:12 DCW [id number]) Out-Patient Physical Therapy Visit Information Visit Information Visit Type Treatment Note Visit Start Time 14:30 Visit Stop Time 15:15 Visit Number 16 Number of NEGATIVE CHECKER Visits 0 Evaluation Information Evaluation Date 06/26/24 PT-OP-B Current Condition Start: 06/26/24 17:48 Freq: Status: Active Protocol: Document 06/26/24 15:15 DCW (Rec: 06/27/24 08:43 DCW [id number]) Current Condition History of Current Condition Onset Date 05/09/24 Current Complaints Increased tone/stiffness along spine, difficulty standing upright, pain History of Current Condition Pt is a 59 year old male very well known to this clinic presenting seven weeks s/p thoracic spine surgery. Pt had a thoracic laminectomy and two miladis placed in his thoracic spine, fusing five vertebrae. This is in addition to multiple other spinal surgeries, including cervical fusion and a recent thoracic endoscopic surgery to prep for this most recent surgery. Pt is in the middle of multiple planned surgeries working to decrease compression on his spinal cord. Next planned surgery is a lumbar surgery, however pt does not know when this will be, reports he has a follow-up Jul 22 for planning . Notes that since his most recent surgery, he has been noticing increase in sensations in his legs and around his torso. Current complaints are muscle tightness, particularly in his right neck, lower right thoracic musculature, and right lumbar paraspinals. Pt often leans to the right in standing or sitting due to tightness, which worsens balance. Ambulates with a SPC, wears heavily altered shoes from local orthotic clinic, which has helped pt from repeated inversion sprains. Treatment Goals Patient/Caregiver Goals Pt's goal is to walk without pain, perform ADLs independently, and stand up straighter. PT-OP-C Subjective Start: 06/26/24 17:48 Freq: Status: Active Protocol: Document 09/08/24 14:30 DCW (Rec: 09/08/24 15:12 DCW [id number]) OP-PT Subjective Patient Comments Patient Comments Except for the back and neck, I'm feeling prety good. PT-OP-F Manual Assessment Start: 06/26/24 17:48 Freq: Status: Active Protocol: Document 06/26/24 15:15 DCW (Rec: 06/27/24 08:49 DCW [id number]) Manual Assessments Soft Tissue Assessment Soft Tissue Mobility Assessment Moderate tone right upper trap , scalenes. Moderate-severe tone in distal right lat/ serratus posterior, posterior external obliques PT-OP-K Range of Motion Start: 06/26/24 17:48 Freq: Status: Active Protocol: Document 06/26/24 15:15 DCW (Rec: 06/27/24 08:49 DCW [id number]) Cervical Spine Range of Motion Cervical Spine Active Degrees Testing Position Sitting Flexion 40 Extension 16 Rotation Left 32 Rotation Right 38 Lateral Flexion Left 30 Lateral Flexion Right 10 ROM Limitations Bony Restriction,Pain PT-OP-L Special Tests Start: 06/26/24 17:48 Freq: Status: Active Protocol: Document 06/26/24 15:15 DCW (Rec: 06/27/24 08:49 DCW [id number]) Special Tests Cervical Spine Special Tests Foraminal Compression Test Results Negative Lumbar Spine Special Tests Straight Leg Raise Test Results Moderate Bilateral pain, R 55? , L 70? PT-OP-Q Treatments Start: 06/26/24 17:48 Freq: Status: Active Protocol: Document 09/08/24 14:30 DCW (Rec: 09/08/24 15:12 DCW [id number]) Manual Therapy Treatment Consent Patient gave verbal consent for manual Yes treatment Soft Tissue Mobilization Lumbar Body Location Lumbar paraspinals R>L, QL, Mobilization Type Strumming,Sustained Pressure, Trigger Point Release Intensity/Depth Moderate Body Position Prone Upper Trap Body Location R>L upper trap, scalenes Mobilization Type Sustained Pressure,Trigger Point Release Intensity/Depth Moderate Body Position Supine PT-OP-T Assessment and Plan Start: 06/26/24 17:48 Freq: Status: Active Protocol: Document 09/08/24 14:30 DCW (Rec: 09/08/24 15:12 DCW [id number]) Physical Therapy Assessment Impairments Impairments Activity Tolerance,Functional Activities,Functional Mobility ,Pain,Posture,ROM,Soft Tissue Mobility,Strength,Tone Goals Three Impairment SLR limited to 55? on R with lumbar pain due to increased muscle tone Jail Goal (LTG) Pt to exhibit a passive SLR to >70? bilaterally without pain in order to demonstrate improve flexibility of lumbar musculature and hamstring to improve functional mobility. LTG Duration 09/24/24 Two Impairment Pt leans to R in sitting or standing 70% of the time to decrease tension Jail Goal (LTG) Pt to sit and stand with an upright posture 60% of the time without cues in order to demonstrate improved posture and decreased right-sided tone LTG Duration 09/24/24 One Impairment Pt does not have an appropriate home exercise program Short Term Goal (STG) Pt to be independent and compliant with an appropriate HEP STG Duration 09/15/23 Assessment Summary Assessment Pt having fluid drained from his abdomen tomorrow, informed he will need a note to allow for continued PT treatment. Physical Therapy Plan Frequency and Duration Frequency of Treatment 2x/Week Plan of Care Start Date 06/26/24 Plan of Care End Date 09/24/24 Therapeutic Interventions Therapeutic Interventions Home Exercise Program,Joint Mobilizations,Manual Therapy, Neuromuscular Re-education, Patient/Caregiver Education, Self-Care/Home Management,Soft Tissue Mobilization,Taping, Therapeutic Activities, Therapeutic Exercises Modalities Cold Pack/Ice Massage,Hot Packs Next Visit Focus/Plan Next Note Type Treatment Note Next Visit Plan STM/joint mobs, core strengthening
--- NOTE | 2024-11-11 12:39 | PT.OPDS ---
Current Diagnoses Stiffness of right shoulder, not elsewhere classified (09/08/24) Stiffness of other specified joint, not elsewhere classified (09/08/24) Other spondylosis with myelopathy, thoracic region (09/08/24) Visit Care Team Role Provider Type Jhon Taylor MD Family Provider Physician Primary Care Provider Specialty: Internal Medicine Address: [address] [place] [address], [id number] Email: [email or web address] Lema Attending Provider Non-Staff Referring Provider Specialty: Nursing Address: [address] [place] [address], [id number] Fax: Email: Visit Number Visit Number [phone] Discharge Summary PT-OP-B Current Condition Start: 06/26/24 17:48 Freq: Status: Active Protocol: Document 06/26/24 15:15 DCW (Rec: 06/27/24 08:43 DCW [id number]) Current Condition History of Current Condition Onset Date 05/09/24 Current Complaints Increased tone/stiffness along spine, difficulty standing upright, pain History of Current Condition Pt is a 59 year old male very well known to this clinic presenting seven weeks s/p thoracic spine surgery. Pt had a thoracic laminectomy and two miladis placed in his thoracic spine, fusing five vertebrae. This is in addition to multiple other spinal surgeries, including cervical fusion and a recent thoracic endoscopic surgery to prep for this most recent surgery. Pt is in the middle of multiple planned surgeries working to decrease compression on his spinal cord. Next planned surgery is a lumbar surgery, however pt does not know when this will be, reports he has a follow-up Jul 22 for planning . Notes that since his most recent surgery, he has been noticing increase in sensations in his legs and around his torso. Current complaints are muscle tightness, particularly in his right neck, lower right thoracic musculature, and right lumbar paraspinals. Pt often leans to the right in standing or sitting due to tightness, which worsens balance. Ambulates with a SPC, wears heavily altered shoes from local orthotic clinic, which has helped pt from repeated inversion sprains. Treatment Goals Patient/Caregiver Goals Pt's goal is to walk without pain, perform ADLs independently, and stand up straighter. PT-OP-C Subjective Start: 06/26/24 17:48 Freq: Status: Active Protocol: Document 09/08/24 14:30 DCW (Rec: 09/08/24 15:12 DCW [id number]) OP-PT Subjective Patient Comments Patient Comments Except for the back and neck, I'm feeling prety good. PT-OP-F Manual Assessment Start: 06/26/24 17:48 Freq: Status: Active Protocol: Document 06/26/24 15:15 DCW (Rec: 06/27/24 08:49 DCW [id number]) Manual Assessments Soft Tissue Assessment Soft Tissue Mobility Assessment Moderate tone right upper trap , scalenes. Moderate-severe tone in distal right lat/ serratus posterior, posterior external obliques PT-OP-K Range of Motion Start: 06/26/24 17:48 Freq: Status: Active Protocol: Document 06/26/24 15:15 DCW (Rec: 06/27/24 08:49 DCW [id number]) Cervical Spine Range of Motion Cervical Spine Active Degrees Testing Position Sitting Flexion 40 Extension 16 Rotation Left 32 Rotation Right 38 Lateral Flexion Left 30 Lateral Flexion Right 10 ROM Limitations Bony Restriction,Pain PT-OP-L Special Tests Start: 06/26/24 17:48 Freq: Status: Active Protocol: Document 06/26/24 15:15 DCW (Rec: 06/27/24 08:49 DCW [id number]) Special Tests Cervical Spine Special Tests Foraminal Compression Test Results Negative Lumbar Spine Special Tests Straight Leg Raise Test Results Moderate Bilateral pain, R 55? , L 70? PT-OP-T Assessment and Plan Start: 06/26/24 17:48 Freq: Status: Active Protocol: Document 11/11/24 12:37 DCW (Rec: 11/11/24 12:39 DCW [id number]) Physical Therapy Assessment Assessment Summary Assessment Therapy was placed on hold while pt underwent an unrelated medical procedure, which pt experienced some complication afterward. Pt has now not been seen in more than two months, and his POC has since . This chart will be discharged, pt has a new referral and has a future eval already scheduled. Physical Therapy Plan Discharge Physical Therapy Discharge Reasons Change in Medical Status Next Visit Focus/Plan Next Note Type Discharge Summary
== END 2024-11-14 13:26 | disposition home or self-care (01) ==
LOC: PHYS 14:30
PROVIDERS: Family Provider Internal Medicine; PCP Internal Medicine; Referring Provider Nurse Practitioner Adult Health; Visit Provider Nurse Practitioner Adult Health
DX: M47.14 Other spondylosis with myelopathy, thoracic region (principal); M25.69 Stiffness of other specified joint, not elsewhere classified; M25.611 Stiffness of right shoulder, not elsewhere classified
CPT/HCPCS: 97110; 97140; 97163

== ENCOUNTER → 2024-09-22 11:00 | Outpatient (CLI) | payer MEDICARE, MEDICAID, SELFPAY ==
[2024-08-11 11:23] VITALS: BMI 53.1
[2024-09-22 12:21] LABS: Add Manual Diff / Slide Review NO; Basophils Absolute Auto 0 /uL (0-100); Basophils Percent Auto 0.5 % (0-2); Eosinophils Absolute Auto 100 /uL (0-450); Eosinophils Percent Auto 1.4 % (2-4); Hematocrit 38.5 % (41-53); Hemoglobin 12.7 g/dL (13.5-17.5); Lymphocytes Absolute Auto 1400 /uL (1100-4500); Mean Corpuscular HGB Conc 33.1 % (30-36); Mean Corpuscular Hemoglobin 27.5 PG (26-34); Mean Corpuscular Volume 83.3 fL (80-100); Monocytes Absolute Auto 900 /uL (0-900); Monocytes Percent Auto 10.5 % (3-14); Neutrophils Absolute Auto 6300 /uL (1500-7000); Neutrophils Percent Auto 71.6 % (50-75); Platelet Count 331 X10^3/uL (150-400); Red Blood Cell Count 4.62 X10^6/uL (4.5-5.9); Red Cell Distribution Width 15.7 % (11.6-14.8); White Blood Cell Count 8.8 X10^3/uL (4.5-11.0)
[2024-09-22 12:39] LABS: Hemoglobin A1C% w Est Avg Glu 5.4 % (4.0-6.0)
[2024-09-22 12:53] LABS: HEMOLYSIS < 15 (0-50); Iron 46 ug/dL (49-181)
[2024-09-22 13:02] LABS: Aspartate Aminotransferase 33 IU/L (17-59); BUN Creatinine Ratio 15.2 (6-22); Blood Urea Nitrogen 14 mg/dL (9-20); Calcium 9.4 mg/dL (8.4-10.2); Carbon Dioxide 26 mmol/L (22-32); Chloride 97 mmol/L (98-107); Cholesterol 90 mg/dL (140-199); Estimated Glomerular Filt Rate > 60 mL/min (>60); Glucose 94 mg/dL (70-100); HDL Cholesterol 35 mg/dL (40-60); HEMOLYSIS < 15 (0-50); LDL Cholesterol Calculated 41 mg/dL (<100); Potassium 4.9 mmol/L (3.4-5.1); Sodium 136 mmol/L (137-145); Triglycerides 71 mg/dL (35-150)
[2024-09-22 13:08] LABS: Percent Iron Saturation 15 % (20-50); Total Iron Binding Capacity 301 ug/dL (261-462); Transferrin 270 mg/dL (206-381)
[2024-09-22 13:29] LABS: TSH w/ Reflex to FT4 0.96 uIU/mL (0.47-4.68)
[2024-09-22 13:37] LABS: Ferritin 82 ng/mL (18-464)
[2024-09-22 14:45] LABS: Microalbumin Urine Random 3.3 mg/dL (0-1.6)
[2024-09-22 14:49] LABS: Creatinine Urine Random 192.42 mg/dL
== END ==
PROVIDERS: Family Provider Internal Medicine; PCP Internal Medicine; Referring Provider Internal Medicine; Visit Provider Internal Medicine
DX: E03.9 Hypothyroidism, unspecified (principal); E11.621 Type 2 diabetes mellitus with foot ulcer; Z12.5 Encounter for screening for malignant neoplasm of prostate; E78.2 Mixed hyperlipidemia; L97.509 Non-pressure chronic ulcer of other part of unspecified foot with unspecified severity; D62 Acute posthemorrhagic anemia
CPT/HCPCS: 36415; 80048; 80061; 82043; 82570; 82728; 83036; 83540; 83550; 84443; 84450; 85025; G0103

== ENCOUNTER 2024-10-07 21:25 | Emergency (ER) | payer MEDICARE, SELFPAY ==
[2024-08-11 11:23] VITALS: BMI 53.1
[2024-10-07 21:31] VITALS: BP 136/70; PULSE 74; RESP 20; TEMP 36.6; O2SAT 98; BMI 43.9
[2024-10-07 21:50] VITALS: BP 145/79; PULSE 87; O2SAT 95
[2024-10-07 22:00] VITALS: PULSE 75; RESP 23; O2SAT 96
[2024-10-07 22:30] VITALS: PULSE 73; RESP 23; O2SAT 95
--- NOTE | 2024-10-07 22:34 | PC.NURSE ---
Updated the patient and his re the wait
[2024-10-07 23:00] VITALS: PULSE 73; RESP 21; O2SAT 95
[2024-10-07 23:10] LABS: Prothrombin Time 11.3 SECONDS (9.4-12.5)
[2024-10-07 23:12] LABS: PTT Partial Thromboplastin Tim 33 SECONDS (25.1-36.5)
[2024-10-07 23:14] LABS: Alanine Aminotransferase 53 IU/L (<50); Albumin 3.5 g/dL (3.5-5.0); Albumin Globulin Ratio 1.2 (1.0-2.8); Alkaline Phosphatase 52 U/L (38-126); Aspartate Aminotransferase 48 IU/L (17-59); BUN Creatinine Ratio 14.1 (6-22); Bilirubin Total 0.1 mg/dL (0.2-1.3); Blood Urea Nitrogen 12 mg/dL (9-20); Calcium 8.8 mg/dL (8.4-10.2); Carbon Dioxide 33 mmol/L (22-32); Chloride 98 mmol/L (98-107); Estimated Glomerular Filt Rate > 60 mL/min (>60); Globulin 2.9 g/dL (1.7-4.1); Glucose 95 mg/dL (70-100); HEMOLYSIS < 15 (0-50); Potassium 4.3 mmol/L (3.4-5.1); Sodium 137 mmol/L (137-145); Total Protein 6.4 g/dL (6.3-8.2)
[2024-10-07 23:15] LABS: Add Manual Diff / Slide Review NO; Basophils Absolute Auto 0 /uL (0-100); Basophils Percent Auto 0.2 % (0-2); Eosinophils Absolute Auto 200 /uL (0-450); Eosinophils Percent Auto 2.4 % (2-4); Hematocrit 30.1 % (41-53); Hemoglobin 10.1 g/dL (13.5-17.5); Lymphocytes Absolute Auto 1700 /uL (1100-4500); Lymphocytes Percent Auto 16.3 % (25-40); Mean Corpuscular HGB Conc 33.7 % (30-36); Mean Corpuscular Hemoglobin 27.8 PG (26-34); Mean Corpuscular Volume 82.7 fL (80-100); Monocytes Absolute Auto 1000 /uL (0-900); Monocytes Percent Auto 9.4 % (3-14); Neutrophils Absolute Auto 7300 /uL (1500-7000); Neutrophils Percent Auto 71.7 % (50-75); Platelet Count 374 X10^3/uL (150-400); Red Blood Cell Count 3.64 X10^6/uL (4.5-5.9); White Blood Cell Count 10.2 X10^3/uL (4.5-11.0)
[2024-10-07 23:30] VITALS: PULSE 73; RESP 18; O2SAT 94
[2024-10-08] VITALS: PULSE 77; RESP 21; O2SAT 94
[2024-10-08 00:10] VITALS: BP 146/79; PULSE 94; RESP 11; O2SAT 96
[2024-10-08 00:30] VITALS: BP 124/58; PULSE 74; RESP 22; O2SAT 95
--- NOTE | 2024-10-08 00:42 | ED_ITS ---
HPI - Recheck/Abnormal Lab/Rx General Chief Complaint: Recheck/Abnormal Lab/Rx Stated Complaint: sent by MD, blood loss Time Seen by Provider: 10/08/24 00:33 Source: patient Mode of arrival: Wheelchair History of Present Illness HPI narrative: Patient is a 59-year-old male with recent history of abdominal wall seroma with postop blood loss an abdominal wall abscess presenting today request of outside provider for abnormal blood work. He was told to come straight to the emergency department for a hemoglobin of 4. Patient has no complaints. Patient is currently on IV ertapenem for 2 weeks, he has a PICC line. Home healthcare nurse abigail blood today. He has SB drains in from recent surgery. However has been monitoring them there has been no significant output. Patient has no abdominal pain. He has no significant dizziness lightheadedness or other symptoms. He feels like he is overall doing well Related Data Home Medications Medication Instructions Recorded Confirmed multivitamin 1 cap PO QDAY ##0 10/13/11 05/26/24 epinephrine 0.3 mg/0.3 mL 0.3 mg IM PRN PRN Allergic Reaction 07/10/19 05/26/24 injection, auto-injector aspirin 81 mg tablet,delayed 81 mg PO DAILY 11/14/21 05/26/24 release fluoride (sodium) 1.1 % dental 1 applic dental 11/24/22 05/26/24 paste upadacitinib 15 mg tablet,extended 15 mg PO DAILY 03/28/23 05/26/24 release 24 hr (Rinvoq) baclofen 20 mg tablet 20 mg PO 3XD 08/11/24 08/11/24 Previous Rx's Medication Instructions Recorded [Disabled Parking Permit] 1 ea Not Applicable DAILY #1 applic 06/16/22 albuterol sulfate 90 mcg/actuation 2 puff inhalation Q4-6H PRN 08/11/22 aerosol inhaler shortness of breath or wheezing #6.7 grams alpha lipoic acid 300 mg capsule 300 mg PO BID #180 caps 03/21/23 hydroxychloroquine 200 mg tablet 200 mg PO DAILY #90 tabs 09/10/23 spironolactone 50 mg tablet 50 mg PO DAILY #90 tabs 03/10/24 levothyroxine 200 mcg tablet 200 mcg PO DAILY #90 tabs 04/16/24 (Euthyrox) lidocaine 5 % topical patch 1 patch topical DAILY #30 ea 04/30/24 liothyronine 50 mcg tablet 50 mcg PO DAILY #90 tabs 06/17/24 rosuvastatin 5 mg tablet 5 mg PO DAILY #90 tabs 06/17/24 tadalafil 5 mg tablet 5 mg PO DAILY #90 tabs 06/17/24 tamsulosin 0.4 mg capsule (Flomax) 0.4 mg PO DAILY #90 caps 06/17/24 cholecalciferol (vitamin D3) 1,250 2,500 mcg (2 x 1,250 mcg (50,000 07/28/24 mcg (50,000 unit) capsule unit)) PO QWEEK #24 caps Right knee offloader knee brace #1 ea 08/11/24 baclofen 10 mg tablet 10 mg PO TID PRN muscle spasm #90 08/11/24 tabs furosemide 40 mg tablet 40 mg PO DAILY #90 tabs 08/11/24 oxycodone-acetaminophen 10 mg-325 1 tab PO QID #120 tabs 08/11/24 mg tablet oxycodone-acetaminophen 10 mg-325 1 tab PO QID #120 tabs 08/11/24 mg tablet oxycodone-acetaminophen 10 mg-325 1 tab PO QID PRN pain #120 tabs 08/11/24 mg tablet duloxetine 60 mg capsule,delayed 60 mg PO DAILY #90 caps 08/14/24 release semaglutide 2 mg/dose (8 mg/3 mL) 2 mg (0.75 mL) SUBCUT QWEEK #3 mL 08/26/24 subcutaneous pen injector (Ozempic) fexofenadine 180 mg tablet 180 mg PO DAILY #90 tabs 09/09/24 Diabetic Shoes #1 ea 09/10/24 pregabalin 150 mg capsule 150 mg PO BID #60 caps 09/24/24 Allergies Allergy/AdvReac Type Severity Reaction Status Date / Time erythromycin base Allergy Severe Anaphylaxis Verified 08/11/24 10:28 heparin (porcine) Allergy Severe BREATHINBG Verified 08/11/24 10:28 [HEPARIN,PORCINE] DIFFICULTIES Penicillins Allergy Severe RASH, Verified 08/11/24 10:28 THROAT SWELLING Pork/Porcine Containing Allergy Severe RASH, Verified 08/11/24 10:28 Products THROAT SWELLING, VOMITING lisinopril AdvReac Cough Verified 08/11/24 10:28 Patient History Medical History (Updated 10/08/24 @ 00:47 by aSvi Wahl DO) Unilateral primary osteoarthritis, right knee Anemia due to blood loss, acute COPD (chronic obstructive pulmonary disease) 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 Type 2 diabetes mellitus with foot ulcer Non-pressure chronic ulcer of right heel and midfoot limited to breakdown of skin Opioid dependence, uncomplicated Secondary hyperaldosteronism Degenerative joint disease, ankle, foot, toe Chronic dyspnea Herniated nucleus pulposus, L3-4 left Olpdcbb-Nymnr-Npmqj disease Phrenic nerve paralysis Degenerative arthritis of cervical spine Cervicalgia Right foot drop HTN (hypertension) BPH (benign prostatic hyperplasia) Nephrolithiasis Sinusitis BPPV (benign paroxysmal positional vertigo) Cobalamin deficiency Right rotator cuff tendonitis Allergic rhinitis Recurrent sinusitis Eczematous dermatitis Chronic, continuous use of opioids Major depression, recurrent Chronic pain syndrome Diabetic neuropathy Acquired hypothyroidism Mixed hyperlipidemia Essential hypertension Chronic diastolic CHF (congestive heart failure) Type 2 diabetes mellitus with polyneuropathy Grief reaction Bullous pemphigoid 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, thoracic Herniated nucleus pulposus, L1-2 Anemia Arthritis Asthma Obesity Spinal stenosis of lumbar region at multiple levels History of migraine headaches Surgical History Hx of thyroidectomy History of spinal fusion History of incision and drainage (04/15/21) History of nasal surgery Hx of knee surgery Hx of foot surgery Hx of hand surgery Hx of fusion of cervical spine Social History Smoking Status: Never smoker Smoking Status: Never smoker alcohol intake frequency: holidays/special occasions only Exam Initial Vital Signs Initial Vital Signs: Vital Signs Temperature 97.9 F 10/07/24 21:31 Pulse Rate 74 10/07/24 21:31 Respiratory Rate 20 10/07/24 21:31 Blood Pressure 136/70 10/07/24 21:31 Pulse Oximetry 98 10/07/24 21:31 Oxygen Delivery Method Room Air 10/07/24 21:31 GENERAL: Alert well-appearing 59-year-old male and in [no acute] distress. HEENT: Head atraumatic,EOMI, pupils reactive, face symmetric, [moist] mucous membranes CARDIOVASCULAR: Regular rate and rhythm without murmurs, rubs or gallops. RESPIRATORY: Breath sounds equal bilaterally, no wheezes rales or rhonchi. ABDOMEN: Soft, nontender. Normoactive bowel sounds all 4 quadrants. No guarding or rebound. SB drains in place with serosanguineous fluid EXTREMITIES: Normal range of motion, no clubbing or edema. Neurovascularly intact NEUROLOGICAL: Alert and oriented x4.Normal gait and speech. Cranial nerves II through XII grossly intact. SKIN: Warm, dry, no laceration, no petechiae, no rashes or lesions. Course Orders Ordered: ED Orders 10/07/24 22:50 CBC Auto Diff [Complete Blood Count AUTO DIFF] Stat CMP [Comprehensive Metabolic Panel] Stat Lactate (Lactic Acid) Stat PT [Prothrombin Time INR] Stat PTT Partial Thromboplastin Nikos Stat Type and Screen Stat Vital Signs Vital signs: Vital Signs - 8 hr 10/07/24 21:31 10/07/24 21:50 10/07/24 21:50 Temperature 97.9 F Pulse Rate 74 87 Respiratory Rate 20 Blood Pressure 136/70 145/79 H Pulse Oximetry 98 95 Oxygen Delivery Method Room Air 10/07/24 22:00 10/07/24 22:30 10/07/24 23:00 Temperature Pulse Rate 75 73 73 Respiratory Rate 23 23 21 Blood Pressure Pulse Oximetry 96 95 95 Oxygen Delivery Method 10/07/24 23:30 10/08/24 00:00 10/08/24 00:10 Temperature Pulse Rate 73 77 Respiratory Rate 18 21 Blood Pressure 146/79 H Pulse Oximetry 94 94 Oxygen Delivery Method 10/08/24 00:10 10/08/24 00:30 10/08/24 00:30 Temperature Pulse Rate 94 H 74 Respiratory Rate 11 L 22 Blood Pressure 124/58 L Pulse Oximetry 96 95 Oxygen Delivery Method MDM - Recheck/Abnormal Lab/Rx Lab Data 10/07/24 22:50 10/07/24 22:50 Labs: Lab Results 10/07/24 Range/Units 22:50 WBC 10.2 (4.5-11.0) X10^3/uL RBC 3.64 L (4.5-5.9) X10^6/uL Hgb 10.1 L (13.5-17.5) g/dL Hct 30.1 L (41-53) % MCV 82.7 (80-100) fL MCH 27.8 (26-34) PG MCHC 33.7 (30-36) % RDW 16.0 H (11.6-14.8) % Plt Count 374 (150-400) X10^3/uL Neut % (Auto) 71.7 (50-75) % Lymph % (Auto) 16.3 L (25-40) % [place] % (Auto) 9.4 (3-14) % Eos % (Auto) 2.4 (2-4) % Baso % (Auto) 0.2 (0-2) % Neut # (Auto) 7300 H (0259-9570) /uL Lymph # (Auto) 1700 (3218-4367) /uL [place] # (Auto) 1000 H (0-900) /uL Eos # (Auto) 200 (0-450) /uL Baso # (Auto) 0 (0-100) /uL PT 11.3 (9.4-12.5) SECONDS INR 1.0 (0.9-1.3) APTT 33 (25.1-36.5) SECONDS Sodium 137 (137-145) mmol/L Potassium 4.3 (3.4-5.1) mmol/L Chloride 98 (98-107) mmol/L Carbon Dioxide 33 H (22-32) mmol/L BUN 12 (9-20) mg/dL Creatinine 0.85 (0.66-1.25) mg/dL Estimated GFR > 60 (>60) mL/min BUN/Creatinine Ratio 14.1 (6-22) Glucose 95 (70-100) mg/dL Lactate 1.0 (0.7-2.1) mmol/L Calcium 8.8 (8.4-10.2) mg/dL Total Bilirubin 0.1 L (0.2-1.3) mg/dL AST 48 (17-59) IU/L ALT 53 H (<50) IU/L Alkaline Phosphatase 52 (38-126) U/L Total Protein 6.4 (6.3-8.2) g/dL Albumin 3.5 (3.5-5.0) g/dL Globulin 2.9 (1.7-4.1) g/dL Albumin/Globulin Ratio 1.2 (1.0-2.8) Blood Type A Negative Antibody Screen Negative MDM Narrative Medical decision making narrative: Patient 59-year-old male presenting to day with abnormal blood work. He was told he had a hemoglobin of 4. However here repeat hemoglobin 10 hematocrit 30.1. reports that that was his blood levels he was discharged from the hospital 2 days ago. Patient has no other complaints. His abdomen is soft. SB drains seem to be working without excessive output. At this time patient is not anemic. He can follow up outpatient. No need for imaging Discharge Plan Departure Patient Disposition: Home Clinical Impression: No problem, feared complaint unfounded Activity Restrictions/Additional Instructions: *You have been diagnosed with you are not anemic hemoglobin 10.1 hematocrit 30 point *What to do: At this time no need for blood transfusion or further workup. Please follow-up with your provider *Continue to take medications as directed *Follow up with your primary care provider in 2-3 days or call [phone] *Return to ER if you should have any new, worsening or concerning symptoms Prescriptions: No Action multivitamin Tablet 1 cap PO QDAY Qty: 0 [Disabled Parking Permit] 1 ea Not Applicable DAILY Qty: 1 0RF albuterol sulfate 90 mcg/actuation HFA aerosol inhaler 2 puff inhalation Q4-6H PRN (Reason: shortness of breath or wheezing) Qty: 6.7 12RF alpha lipoic acid 300 mg capsule 300 mg PO BID Qty: 180 3RF hydroxychloroquine 200 mg tablet 200 mg PO DAILY Qty: 90 1RF spironolactone 50 mg tablet 50 mg PO DAILY Qty: 90 3RF levothyroxine [Euthyrox] 200 mcg tablet 200 mcg PO DAILY Qty: 90 3RF lidocaine 5 % adhesive patch,medicated 1 patch topical DAILY Qty: 30 5RF Rx Instructions: leave on most painful area for up to 12 hrs liothyronine 50 mcg tablet 50 mcg PO DAILY Qty: 90 3RF rosuvastatin 5 mg tablet 5 mg PO DAILY Qty: 90 3RF tadalafil 5 mg tablet 5 mg PO DAILY Qty: 90 3RF tamsulosin [Flomax] 0.4 mg capsule 0.4 mg PO DAILY Qty: 90 3RF cholecalciferol (vitamin D3) 1,250 mcg (50,000 unit) capsule 2,500 mcg PO QWEEK Qty: 24 3RF duloxetine 60 mg capsule,delayed release(DR/EC) 60 mg PO DAILY Qty: 90 3RF Ozempic 2 mg/dose (8 mg/3 mL) pen injector 2 mg SUBCUT QWEEK Qty: 3 5RF fexofenadine 180 mg tablet 180 mg PO DAILY Qty: 90 3RF (DME) Diabetic Shoes See Rx Instructions .Route .MEDSUPPLY Qty: 1 0RF Rx Instructions: Bilateral diabetic shoes per [facility]. pregabalin 150 mg capsule 150 mg PO BID Qty: 60 5RF aspirin 81 mg tablet,delayed release (DR/EC) 81 mg PO DAILY fluoride (sodium) 1.1 % paste 1 applic dental baclofen 10 mg tablet 10 mg PO TID PRN (Reason: muscle spasm) Qty: 90 2RF baclofen 20 mg tablet 20 mg PO 3XD (DME) Right knee offloader knee brace See Rx Instructions .Route .MEDSUPPLY Qty: 1 0RF Rx Instructions: As directed oxycodone-acetaminophen 10-325 mg tablet 1 tab PO QID PRN (Reason: pain) Qty: 120 0RF oxycodone-acetaminophen 10-325 mg tablet 1 tab PO QID Qty: 120 0RF oxycodone-acetaminophen 10-325 mg tablet 1 tab PO QID Qty: 120 0RF furosemide 40 mg tablet 40 mg PO DAILY Qty: 90 3RF epinephrine 0.3 mg/0.3 mL auto-injector 0.3 mg IM PRN PRN (Reason: Allergic Reaction) Rinvoq 15 mg tablet extended release 24 hr 15 mg PO DAILY Referrals: Jhon Taylor MD [Primary Care Provider] - Stand Alone Forms: Patient Portal/API/Survey
== END 2024-10-08 00:52 | disposition home or self-care (01) ==
PROVIDERS: Emergency Provider Emergency Medicine; Family Provider Internal Medicine; PCP Internal Medicine
DX: R79.89 Other specified abnormal findings of blood chemistry (principal)
CPT/HCPCS: 80053; 83605; 85025; 85610; 85730; 86850; 86900; 86901; 99281; 99283

== ENCOUNTER 2024-10-23 17:11 | Emergency (ER) | payer MEDICARE, MEDICAID, SELFPAY ==
[2024-08-11 11:23] VITALS: BMI 53.1
[2024-10-23] VITALS (9 sets, daily range): BP systolic 117–141; BP diastolic 60–79; PULSE 71–82; RESP 17–20; TEMP 36.6; O2SAT 96–100; BMI 40.4
[2024-10-23 18:08] LABS: Add Manual Diff / Slide Review NO; Basophils Absolute Auto 0 /uL (0-100); Basophils Percent Auto 0.7 % (0-2); Eosinophils Absolute Auto 300 /uL (0-450); Eosinophils Percent Auto 4.5 % (2-4); Hematocrit 35.7 % (41-53); Lymphocytes Absolute Auto 1300 /uL (1100-4500); Lymphocytes Percent Auto 21.8 % (25-40); Mean Corpuscular HGB Conc 33.7 % (30-36); Mean Corpuscular Hemoglobin 28.8 PG (26-34); Mean Corpuscular Volume 85.5 fL (80-100); Monocytes Absolute Auto 500 /uL (0-900); Monocytes Percent Auto 8.9 % (3-14); Neutrophils Absolute Auto 3700 /uL (1500-7000); Neutrophils Percent Auto 64.1 % (50-75); Platelet Count 184 X10^3/uL (150-400); Red Blood Cell Count 4.18 X10^6/uL (4.5-5.9); Red Cell Distribution Width 19.7 % (11.6-14.8); White Blood Cell Count 5.8 X10^3/uL (4.5-11.0)
--- NOTE | 2024-10-23 18:09 | EKG_ITS ---
[address] [address] Test Date: 2024-10-23 Pat Name: Bubba Antonio Department: [facility] Room: Gender: Male Recep: EDGAR : 1965 Requested By: Order Number: [id number] Reading MD: Tye Hill MD Measurements Intervals [place] Rate: 77 P: 34 GA: 192 QRS: -10 QRSD: 98 T: 58 QT: 364 QTc: 411 Interpretive Statements Normal sinus rhythm Inferior infarct , age undetermined Electronically Signed On 10-24-2024 6:42:21 PDT by Tye Hill MD
[2024-10-23 18:15] LABS: Prothrombin Time 11.5 SECONDS (9.4-12.5)
[2024-10-23] MEDS: PANTOPRAZOLE 40 MG VIAL 80 MG IV (18:16)
[2024-10-23 18:18] LABS: PTT Partial Thromboplastin Tim 24 SECONDS (25.1-36.5)
[2024-10-23 18:19] LABS: Alanine Aminotransferase 27 IU/L (<50); Albumin 4.2 g/dL (3.5-5.0); Albumin Globulin Ratio 1.2 (1.0-2.8); Alkaline Phosphatase 66 U/L (38-126); Aspartate Aminotransferase 32 IU/L (17-59); BUN Creatinine Ratio 17.7 (6-22); Bilirubin Total 0.3 mg/dL (0.2-1.3); Blood Urea Nitrogen 14 mg/dL (9-20); Calcium 9.5 mg/dL (8.4-10.2); Carbon Dioxide 27 mmol/L (22-32); Chloride 102 mmol/L (98-107); Estimated Glomerular Filt Rate > 60 mL/min (>60); Globulin 3.5 g/dL (1.7-4.1); Glucose 119 mg/dL (70-100); HEMOLYSIS < 15 (0-50); Potassium 4.2 mmol/L (3.4-5.1); Sodium 138 mmol/L (137-145); Total Protein 7.7 g/dL (6.3-8.2)
--- NOTE | 2024-10-23 18:24 | ED.GIBLEED ---
HPI - GI Bleed General Chief complaint: GI Bleed Stated complaint: sent by Dr Taylor, blood in urine Time Seen by Provider: 10/23/24 18:24 History of Present Illness HPI Narrative: Patient is a 59-year-old male with a past medical history COPD not requiring supplemental oxygen at baseline, diabetes, hyperlipidemia, hypertension, CHF, in the ED from home complaining of dark red blood and stool that began approximately 3 days ago. To note patient states he had skin removal surgery to his abdomen a proximally 1 year ago that was complicated by an abscess in which this was removed by Dr. Barros approximately 19 days ago this has required him to have IV antibiotics ertapenem every 24 hours, states that his next dose is at 7:30pm tonight. Patient states that he contacted his primary care doctor and was instructed come into the ED for further evaluation treatment. Patient is not on any blood thinners. He states that he is supposed to be on this antibiotic for 2 more days which would be a total of 21 days. Related Data Home Medications Medication Instructions Recorded Confirmed multivitamin 1 cap PO QDAY ##0 10/13/11 05/26/24 epinephrine 0.3 mg/0.3 mL 0.3 mg IM PRN PRN Allergic Reaction 07/10/19 05/26/24 injection, auto-injector aspirin 81 mg tablet,delayed 81 mg PO DAILY 11/14/21 05/26/24 release fluoride (sodium) 1.1 % dental 1 applic dental 11/24/22 05/26/24 paste upadacitinib 15 mg tablet,extended 15 mg PO DAILY 03/28/23 05/26/24 release 24 hr (Rinvoq) baclofen 20 mg tablet 20 mg PO 3XD 08/11/24 08/11/24 Previous Rx's Medication Instructions Recorded [Disabled Parking Permit] 1 ea Not Applicable DAILY #1 applic 06/16/22 albuterol sulfate 90 mcg/actuation 2 puff inhalation Q4-6H PRN 08/11/22 aerosol inhaler shortness of breath or wheezing #6.7 grams alpha lipoic acid 300 mg capsule 300 mg PO BID #180 caps 03/21/23 hydroxychloroquine 200 mg tablet 200 mg PO DAILY #90 tabs 09/10/23 spironolactone 50 mg tablet 50 mg PO DAILY #90 tabs 03/10/24 levothyroxine 200 mcg tablet 200 mcg PO DAILY #90 tabs 04/16/24 (Euthyrox) lidocaine 5 % topical patch 1 patch topical DAILY #30 ea 04/30/24 liothyronine 50 mcg tablet 50 mcg PO DAILY #90 tabs 06/17/24 rosuvastatin 5 mg tablet 5 mg PO DAILY #90 tabs 06/17/24 tadalafil 5 mg tablet 5 mg PO DAILY #90 tabs 06/17/24 tamsulosin 0.4 mg capsule (Flomax) 0.4 mg PO DAILY #90 caps 06/17/24 cholecalciferol (vitamin D3) 1,250 2,500 mcg (2 x 1,250 mcg (50,000 07/28/24 mcg (50,000 unit) capsule unit)) PO QWEEK #24 caps Right knee offloader knee brace #1 ea 08/11/24 baclofen 10 mg tablet 10 mg PO TID PRN muscle spasm #90 08/11/24 tabs furosemide 40 mg tablet 40 mg PO DAILY #90 tabs 08/11/24 oxycodone-acetaminophen 10 mg-325 1 tab PO QID #120 tabs 08/11/24 mg tablet oxycodone-acetaminophen 10 mg-325 1 tab PO QID #120 tabs 08/11/24 mg tablet oxycodone-acetaminophen 10 mg-325 1 tab PO QID PRN pain #120 tabs 08/11/24 mg tablet duloxetine 60 mg capsule,delayed 60 mg PO DAILY #90 caps 08/14/24 release semaglutide 2 mg/dose (8 mg/3 mL) 2 mg (0.75 mL) SUBCUT QWEEK #3 mL 08/26/24 subcutaneous pen injector (Ozempic) fexofenadine 180 mg tablet 180 mg PO DAILY #90 tabs 09/09/24 Diabetic Shoes #1 ea 09/10/24 pregabalin 150 mg capsule 150 mg PO BID #60 caps 09/24/24 Allergies Allergy/AdvReac Type Severity Reaction Status Date / Time erythromycin base Allergy Severe Anaphylaxis Verified 08/11/24 10:28 heparin (porcine) Allergy Severe BREATHINBG Verified 08/11/24 10:28 [HEPARIN,PORCINE] DIFFICULTIES Penicillins Allergy Severe RASH, Verified 08/11/24 10:28 THROAT SWELLING Pork/Porcine Containing Allergy Severe RASH, Verified 08/11/24 10:28 Products THROAT SWELLING, VOMITING lisinopril AdvReac Cough Verified 08/11/24 10:28 Review of Systems Review of Systems Narrative: General: Denies fever, chills, weight loss HEENT: Denies headache, eye drainage, eye irritation, head trauma, sore throat, voice change Cardiovascular: Denies any chest pain, palpitations, tachycardia Respiratory: Denies any shortness of breath, cough, wheeze, stridor GI/: Positive bright red blood per rectum, positive hematuria Denies any abdominal pain, nausea, vomiting, diarrhea, melanotic stools, urinary frequency, urinary retention, dysuria, MSK: Denies any joint pain, muscle pains, swelling Skin: Denies any rashes, lesions, discoloration Neuro: Denies any headache, lightheadedness, dizziness, fainting, weakness Psych: Denies SI/HI Patient History Medical History (Updated 10/23/24 @ 19:16 by Tony Damian DO) Unilateral primary osteoarthritis, right knee Anemia due to blood loss, acute COPD (chronic obstructive pulmonary disease) 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 Type 2 diabetes mellitus with foot ulcer Non-pressure chronic ulcer of right heel and midfoot limited to breakdown of skin Opioid dependence, uncomplicated Secondary hyperaldosteronism Degenerative joint disease, ankle, foot, toe Chronic dyspnea Herniated nucleus pulposus, L3-4 left Eepxxfh-Uivqr-Rsysz disease Phrenic nerve paralysis Degenerative arthritis of cervical spine Cervicalgia Right foot drop HTN (hypertension) BPH (benign prostatic hyperplasia) Nephrolithiasis Sinusitis BPPV (benign paroxysmal positional vertigo) Cobalamin deficiency Right rotator cuff tendonitis Allergic rhinitis Recurrent sinusitis Eczematous dermatitis Chronic, continuous use of opioids Major depression, recurrent Chronic pain syndrome Diabetic neuropathy Acquired hypothyroidism Mixed hyperlipidemia Essential hypertension Chronic diastolic CHF (congestive heart failure) Type 2 diabetes mellitus with polyneuropathy Grief reaction Bullous pemphigoid 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, thoracic Herniated nucleus pulposus, L1-2 Anemia Arthritis Asthma Obesity Spinal stenosis of lumbar region at multiple levels History of migraine headaches Surgical History Hx of thyroidectomy History of spinal fusion History of incision and drainage (04/15/21) History of nasal surgery Hx of knee surgery Hx of foot surgery Hx of hand surgery Hx of fusion of cervical spine Social History Smoking Status: Never smoker Smoking Status: Never smoker alcohol intake frequency: holidays/special occasions only Exam Narrative Exam Narrative: General: Cooperative, comfortable, well-developed, not in acute distress HEENT: Normocephalic, atraumatic, PERRLA, normal sclera, eyelids normal, Neck: Active full range of motion, atraumatic Chest: Normal to inspection, negative crepitus, no overlying erythema ecchymosis Respiratory: Normal respiratory effort, not in acute respiratory distress, clear to auscultation bilaterally negative cough, wheeze, tachypnea, rhonchi, rales Cardiology: Regular rate rhythm negative gallop, murmur, rubs GI/: Patient with 2 SB drains noted to the right lower and left lower quadrant draining appropriate colored fluid, incision wounds appear well healing no purulent discharge noted no erythema noted, patient Hemoccult negative but did note external hemorrhoids MSK: Full range of active range of motion of all 4 extremities, atraumatic Skin: No rashes lesions noted Neuro: Alert awake oriented x3, moves all 4 extremities spontaneously, cranial nerves intact, able to answer all questions appropriately follows commands appropriately Psych: Cooperative, negative suicidal or homicidal ideations Initial Vital Signs Initial Vital Signs: Vital Signs Temperature 97.9 F 10/23/24 17:29 Pulse Rate 78 10/23/24 17:29 Respiratory Rate 18 10/23/24 17:29 Blood Pressure 141/72 H 10/23/24 17:29 Pulse Oximetry 98 10/23/24 17:29 Oxygen Delivery Method Room Air 10/23/24 17:29 Course Orders Ordered: ED Orders 10/23/24 21:12 Ictotest Urine Stat Urine Culture Stat Urine Microscopic Stat Discontinued Medications Ertapenem 1 gm/ Sodium (Chloride) 100 mls @ 200 mls/hr IV NOW ONE Stop: 10/23/24 19:14 Last Infusion: 10/23/24 20:14 Dose: Infused Documented By: Admin: 10/23/24 19:41 Dose: 200 mls/hr Documented By: ALAN Sodium Chloride (Normal Saline 0.9%) 1,000 mls @ 1,000 mls/hr IV BOLUS ONE Stop: 10/23/24 20:15 Last Infusion: 10/23/24 21:15 Dose: Infused Documented By: Admin: 10/23/24 19:41 Dose: 1,000 mls/hr Documented By: ALAN Ondansetron HCl (Ondansetron 4 Mg/2 Ml Inj) 4 mg IV NOW PRN PRN Reason: Nausea And Vomiting Ondansetron HCl (Ondansetron 4 Mg Odt) 4 mg SL NOW PRN PRN Reason: Nausea And Vomiting Pantoprazole Sodium (Pantoprazole 40 Mg Vial) 80 mg IV NOW ONE Stop: 10/23/24 17:41 Last Admin: 10/23/24 18:16 Dose: 80 mg Documented By: GARRET Vital Signs Vital signs: Vital Signs - 8 hr 10/23/24 19:35 10/23/24 19:37 10/23/24 19:37 Pulse Rate 72 72 Respiratory Rate 17 Blood Pressure 124/60 Pulse Oximetry 97 98 Oxygen Delivery Method Room Air 10/23/24 20:00 10/23/24 20:00 10/23/24 20:30 Pulse Rate 71 Respiratory Rate 19 Blood Pressure 118/63 117/60 Pulse Oximetry 100 Oxygen Delivery Method 10/23/24 20:30 10/23/24 20:59 10/23/24 21:00 Pulse Rate 71 72 Respiratory Rate 20 Blood Pressure 122/67 Pulse Oximetry 97 99 Oxygen Delivery Method Room Air 10/23/24 22:00 10/23/24 22:01 10/23/24 22:01 Pulse Rate 82 Respiratory Rate 20 Blood Pressure 128/79 Pulse Oximetry 97 96 Oxygen Delivery Method Room Air MDM - GI Bleed Differential Diagnosis Differential diagnosis: Likely hemorrhoids, Lower gastrointestinal hemorrhage, hematochezia, melena, anal fissure and other (Urinary tract infection, electrolyte abnormality) Lab Data 10/23/24 17:59 10/23/24 17:59 Labs: Lab Results 10/23/24 10/23/24 10/23/24 Range/Units 17:59 18:22 21:12 WBC 5.8 (4.5-11.0) X10^3/uL RBC 4.18 L (4.5-5.9) X10^6/uL Hgb 12.0 L (13.5-17.5) g/dL Hct 35.7 L (41-53) % MCV 85.5 (80-100) fL MCH 28.8 (26-34) PG MCHC 33.7 (30-36) % RDW 19.7 H (11.6-14.8) % Plt Count 184 (150-400) X10^3/uL Neut % (Auto) 64.1 (50-75) % Lymph % (Auto) 21.8 L (25-40) % Barry % (Auto) 8.9 (3-14) % Eos % (Auto) 4.5 H (2-4) % Baso % (Auto) 0.7 (0-2) % Neut # (Auto) 3700 (2695-4642) /uL Lymph # (Auto) 1300 (0765-6209) /uL Barry # (Auto) 500 (0-900) /uL Eos # (Auto) 300 (0-450) /uL Baso # (Auto) 0 (0-100) /uL PT 11.5 (9.4-12.5) SECONDS INR 1.0 (0.9-1.3) APTT 24 L (25.1-36.5) SECONDS Sodium 138 (137-145) mmol/L Potassium 4.2 (3.4-5.1) mmol/L Chloride 102 (98-107) mmol/L Carbon Dioxide 27 (22-32) mmol/L BUN 14 (9-20) mg/dL Creatinine 0.79 (0.66-1.25) mg/dL Estimated GFR > 60 (>60) mL/min BUN/Creatinine Ratio 17.7 (6-22) Glucose 119 H (70-100) mg/dL Calcium 9.5 (8.4-10.2) mg/dL Total Bilirubin 0.3 (0.2-1.3) mg/dL AST 32 (17-59) IU/L ALT 27 (<50) IU/L Alkaline Phosphatase 66 (38-126) U/L Total Protein 7.7 (6.3-8.2) g/dL Albumin 4.2 (3.5-5.0) g/dL Globulin 3.5 (1.7-4.1) g/dL Albumin/Globulin Ratio 1.2 (1.0-2.8) Ur Bilirubin Confirm Negative (Negative) Urine RBC 0-1/hpf (0-5/HPF) Urine WBC 1-5/hpf (0-5/HPF) Ur Squamous Epith Cells 0-1 /hpf (0-5/HPF) Urine Bacteria Few (2-10) H (None) Ur Culture Indicated? Specimen cultured Vol Urine Centrifuged 10ml (spun) Blood Type A Negative Antibody Screen Negative Urine Dip Bedside Urine Glucose Negative Bedside Urine Bilirubin +++ 4 Bedside Urine Ketone - Negative Urine Specific Munson 1.025 Bedside Urine Occult Blood - Negative Bedside Urine pH 6.0 Bedside Urine Protein +/- 15 Bedside Urine Urobilinogen - Negative Bedside Urine Nitrite - Negative Bedside Urine Leukocytes ++ 125 Esterase ECG Data Interpretation: EKG interpreted ED physician sinus 77 beats per minute QTC [address] changes no STEMI MDM Narrative Medical decision making narrative: 59-year-old male with a past medical history of COPD not requiring supplemental oxygen at baseline, diabetes, hyperlipidemia, hypertension, CHF, presents to the ED for evaluation of possible dark red blood in the stool as well as hematuria, states it started proximally 3 days ago. To note he states he does have SB drains to his bilateral lower abdomen due to abscess complication which occurred approximately 19 days ago. Patient is supposed to have ertapenem Q 24 hours with his next dose at 7:30 p.m. today. He states that he contact his primary care doctor in regards to his concern for red blood in his stool and urine and was strict him into the ED for further evaluation treatment. Patient is not on any blood thinners, he is supposed to have 2 more days of his ertapenem. On exam patient with external hemorrhoids but Hemoccult negative, urinalysis without any signs of hematuria. Patient lab work with hemoglobin stable at 12.0, otherwise baseline no acute abnormalities, Patient's lab work with a hemoglobin of 12.0, INR 1.0, creatinine 0.79 GFR greater than 60, on rectal exam external hemorrhoids noted, Hemoccult negative. Did give patient's dose of ertapenem here. Urinalysis without any red blood cells. Patient was instructed to follow up with his primary care doctor he was given strict return precautions he verbalized understanding of this and agrees to being discharged home with outpatient follow up Discharge Plan Departure Patient Disposition: Home Clinical Impression: External hemorrhoids Instructions: DI for Hemorrhoids Activity Restrictions/Additional Instructions: Please follow up with your surgeon your primary care doctor and GI in outpatient setting Please read the discharge instructions sheet carefully and bring all papers to all doctor follow-up visits, as it may contain information that your doctor may want to see. Disease processes change and evolve, if your symptoms worsen or if you develop any new symptoms that are concerning to you please return for evaluation. Your evaluation today does not show any evidence of any life-threatening/serious illnesses requiring admission to the hospital or surgery. Please follow-up with your doctor for re-evaluation in approximately 1 day. Seek immediate medical attention for any worrisome symptoms. *If you do not have a primary care provider please contact the [facility] Resource line at [phone]. They will ask some questions about your medical history and help get you set up with a doctor in the community. Prescriptions: No Action multivitamin Tablet 1 cap PO QDAY Qty: 0 [Disabled Parking Permit] 1 ea Not Applicable DAILY Qty: 1 0RF albuterol sulfate 90 mcg/actuation HFA aerosol inhaler 2 puff inhalation Q4-6H PRN (Reason: shortness of breath or wheezing) Qty: 6.7 12RF alpha lipoic acid 300 mg capsule 300 mg PO BID Qty: 180 3RF hydroxychloroquine 200 mg tablet 200 mg PO DAILY Qty: 90 1RF spironolactone 50 mg tablet 50 mg PO DAILY Qty: 90 3RF levothyroxine [Euthyrox] 200 mcg tablet 200 mcg PO DAILY Qty: 90 3RF lidocaine 5 % adhesive patch,medicated 1 patch topical DAILY Qty: 30 5RF Rx Instructions: leave on most painful area for up to 12 hrs liothyronine 50 mcg tablet 50 mcg PO DAILY Qty: 90 3RF rosuvastatin 5 mg tablet 5 mg PO DAILY Qty: 90 3RF tadalafil 5 mg tablet 5 mg PO DAILY Qty: 90 3RF tamsulosin [Flomax] 0.4 mg capsule 0.4 mg PO DAILY Qty: 90 3RF cholecalciferol (vitamin D3) 1,250 mcg (50,000 unit) capsule 2,500 mcg PO QWEEK Qty: 24 3RF duloxetine 60 mg capsule,delayed release(DR/EC) 60 mg PO DAILY Qty: 90 3RF Ozempic 2 mg/dose (8 mg/3 mL) pen injector 2 mg SUBCUT QWEEK Qty: 3 5RF fexofenadine 180 mg tablet 180 mg PO DAILY Qty: 90 3RF (DME) Diabetic Shoes See Rx Instructions .Route .MEDSUPPLY Qty: 1 0RF Rx Instructions: Bilateral diabetic shoes per [facility]. pregabalin 150 mg capsule 150 mg PO BID Qty: 60 5RF aspirin 81 mg tablet,delayed release (DR/EC) 81 mg PO DAILY fluoride (sodium) 1.1 % paste 1 applic dental baclofen 10 mg tablet 10 mg PO TID PRN (Reason: muscle spasm) Qty: 90 2RF baclofen 20 mg tablet 20 mg PO 3XD (DME) Right knee offloader knee brace See Rx Instructions .Route .MEDSUPPLY Qty: 1 0RF Rx Instructions: As directed oxycodone-acetaminophen 10-325 mg tablet 1 tab PO QID PRN (Reason: pain) Qty: 120 0RF oxycodone-acetaminophen 10-325 mg tablet 1 tab PO QID Qty: 120 0RF oxycodone-acetaminophen 10-325 mg tablet 1 tab PO QID Qty: 120 0RF furosemide 40 mg tablet 40 mg PO DAILY Qty: 90 3RF epinephrine 0.3 mg/0.3 mL auto-injector 0.3 mg IM PRN PRN (Reason: Allergic Reaction) Rinvoq 15 mg tablet extended release 24 hr 15 mg PO DAILY Referrals: Mike Casey MD [Non-Staff] - Jhon Taylor MD [Primary Care Provider] - Stand Alone Forms: Patient Portal/API/Survey
[2024-10-23] MEDS: ERTAPENEM 1 GM in SODIUM CHLORIDE 0.9% 100 ML IV (19:41)
[2024-10-23] MEDS: SODIUM CHLORIDE 0.9% 1,000 ML 1000 ML IV (19:41)
[2024-10-23 21:35] LABS: Ictotest Urine Negative (Negative)
[2024-10-23 21:36] LABS: Bacteria Urine Few (2-10); Culture Indicated Urine Specimen Cultured; RBC Urine 0-1/HPF (0-5/HPF); Squamous Epithelial Cell Urine 0-1 /HPF (0-5/HPF); Urine Volume 10mL (spun); WBC Urine 1-5/HPF (0-5/HPF)
== END 2024-10-23 22:07 | disposition home or self-care (01) ==
PROVIDERS: Emergency Medicine; Emergency Provider Student in an Organized Health Care Education/Training Program; Family Provider Internal Medicine; PCP Internal Medicine
DX: K64.4 Residual hemorrhoidal skin tags (principal); Z86.79 Personal history of other diseases of the circulatory system
CPT/HCPCS: 36415; 80053; 81003; 81015; 85025; 85610; 85730; 86850; 86900; 86901; 87077; 87086; 87186; 93005; 96361; 96365; 96375; 99284; J1335; J2470

== ENCOUNTER → 2024-12-22 10:21 | Outpatient (CLI) | payer MEDICARE, MEDICAID, SELFPAY ==
[2024-08-11 11:23] VITALS: BMI 53.1
== END ==
PROVIDERS: Family Provider Internal Medicine; PCP Internal Medicine; Referring Provider Physician Assistant Medical; Visit Provider Surgery
DX: T81.89XA Other complications of procedures, not elsewhere classified, initial encounter (principal); S31.104A Unspecified open wound of abdominal wall, left lower quadrant without penetration into peritoneal cavity, initial encounter; R60.0 Localized edema; E29.1 Testicular hypofunction; M79.0 Rheumatism, unspecified; Z86.0100 Personal history of colon polyps, unspecified; E11.40 Type 2 diabetes mellitus with diabetic neuropathy, unspecified; E11.622 Type 2 diabetes mellitus with other skin ulcer; E78.00 Pure hypercholesterolemia, unspecified; Z68.39 Body mass index [BMI] 39.0-39.9, adult; I50.20 Unspecified systolic (congestive) heart failure; J44.9 Chronic obstructive pulmonary disease, unspecified; E03.9 Hypothyroidism, unspecified
CPT/HCPCS: 11042; 87070; 87077; 87147; 87186; 87205; 97605; 99203; 99213

== ENCOUNTER → 2024-12-26 15:32 | Outpatient (CLI) | payer MEDICARE, MEDICAID, SELFPAY ==
[2024-08-11 11:23] VITALS: BMI 53.1
== END ==
PROVIDERS: Family Provider Internal Medicine; PCP Internal Medicine; Referring Provider Internal Medicine; Visit Provider Physician Assistant
DX: T81.89XA Other complications of procedures, not elsewhere classified, initial encounter (principal); S31.104A Unspecified open wound of abdominal wall, left lower quadrant without penetration into peritoneal cavity, initial encounter; R60.0 Localized edema
CPT/HCPCS: 97605

== ENCOUNTER → 2024-12-30 14:19 | Outpatient (CLI) | payer MEDICARE, MEDICAID, SELFPAY ==
[2024-08-11 11:23] VITALS: BMI 53.1
== END ==
PROVIDERS: Family Provider Internal Medicine; PCP Internal Medicine; Referring Provider Internal Medicine; Visit Provider Surgery
DX: T81.89XA Other complications of procedures, not elsewhere classified, initial encounter (principal); S31.104A Unspecified open wound of abdominal wall, left lower quadrant without penetration into peritoneal cavity, initial encounter; R60.0 Localized edema; E11.622 Type 2 diabetes mellitus with other skin ulcer; E11.40 Type 2 diabetes mellitus with diabetic neuropathy, unspecified; E66.9 Obesity, unspecified; Z68.39 Body mass index [BMI] 39.0-39.9, adult
CPT/HCPCS: 11042; 97605

== ENCOUNTER → 2025-01-01 10:36 | Outpatient (CLI) | payer MEDICARE, MEDICAID, SELFPAY ==
[2024-08-11 11:23] VITALS: BMI 53.1
--- NOTE | 2025-01-01 10:37 | DI.CT.S_ITS ---
PROCEDURE: CT ABDOMEN PELVIS W CON INDICATIONS: non-healing wound abd TECHNIQUE: After the administration of intravenous contrast, axial sections acquired from the lung bases to the pubic symphysis. Coronal and sagittal reformats were performed. For radiation dose reduction, the following was used: automated exposure control, adjustment of mA and/or kV according to patient size. COMPARISON: None. FINDINGS: Image quality: Diagnostic. Lower Chest: Elevated right hemidiaphragm with right basilar atelectasis. ABDOMEN: Liver: No solid mass. Liver is hypoattenuating compatible with fatty infiltration. Gallbladder: No radiopaque gallstones or wall thickening. Biliary ducts: No biliary dilation. Pancreas: No ductal dilation. Spleen: Size is within normal limits. Adrenal Glands: No adrenal nodules. Kidneys and Ureters: No hydronephrosis. No solid mass. No complex renal cystic lesion which requires follow up. 3 mm nonobstructing left renal calculus. Stomach and Bowel: Normal colonic caliber, without significant wall thickening. Moderate colonic stool. Small bowel loops and stomach are unremarkable. Peritoneum: No abnormal intraperitoneal fluid. No free air. Ventral Wall: Left lower abdominal wound is present with tract extending to an ill-defined band like area of inflammatory tissue in the subcutaneous tissues along the lower anterior abdominal wall. There is a trace amount of central fluid and gas. No intraperitoneal extension is seen. thick-walled collection of fluid and gas in the subcutaneous tissues at the lower anterior abdominal wall, which measures up to 20.2 x 3.5 x 0.8 cm. Abdominal Nodes: No retroperitoneal or mesenteric adenopathy by size criteria. Vessels: Aorta and inferior vena cava are normal in size. PELVIS: Pelvic Organs: Prostate is enlarged. Bladder: No bladder wall thickening, accounting for underdistention. Pelvic Nodes: No enlarged lymph nodes. Miscellaneous: No inguinal hernias are seen. Bones: No aggressive osseous abnormality. Posterior fixation hardware is seen in the lower thoracic spine. Moderate to severe multilevel lumbar spondylosis. IMPRESSION: Left lower abdominal wound is seen with tract extending to a band like area of inflammatory tissue in the subcutaneous tissues at the lower anterior abdominal wall with a small amount of central fluid and gas. No intraperitoneal extension. Approved by: Og Agudelo M.D. on 01/01/2025 at 19:44
== END ==
PROVIDERS: Family Provider Internal Medicine; PCP Internal Medicine; Referring Provider Surgery; Visit Provider Surgery
DX: S31.109D Unspecified open wound of abdominal wall, unspecified quadrant without penetration into peritoneal cavity, subsequent encounter (principal); J98.11 Atelectasis; N20.0 Calculus of kidney; N40.0 Benign prostatic hyperplasia without lower urinary tract symptoms; Z98.1 Arthrodesis status; X58.XXXD Exposure to other specified factors, subsequent encounter
CPT/HCPCS: 74177; Q9967

== ENCOUNTER → 2025-01-02 13:49 | Outpatient (CLI) | payer MEDICARE, MEDICAID, SELFPAY ==
[2024-08-11 11:23] VITALS: BMI 53.1
== END ==
PROVIDERS: Family Provider Internal Medicine; PCP Internal Medicine; Referring Provider Internal Medicine; Visit Provider Surgery
DX: T81.89XA Other complications of procedures, not elsewhere classified, initial encounter (principal); L98.8 Other specified disorders of the skin and subcutaneous tissue; S31.104A Unspecified open wound of abdominal wall, left lower quadrant without penetration into peritoneal cavity, initial encounter; R60.0 Localized edema; L08.89 Other specified local infections of the skin and subcutaneous tissue; Z79.2 Long term (current) use of antibiotics
CPT/HCPCS: 97605

== ENCOUNTER → 2025-01-05 13:43 | Outpatient (CLI) | payer MEDICARE, MEDICAID, SELFPAY ==
[2024-08-11 11:23] VITALS: BMI 53.1
== END ==
PROVIDERS: Family Provider Internal Medicine; PCP Internal Medicine; Referring Provider Internal Medicine; Visit Provider Surgery
DX: T81.89XA Other complications of procedures, not elsewhere classified, initial encounter (principal); S31.604A Unspecified open wound of abdominal wall, left lower quadrant with penetration into peritoneal cavity, initial encounter; E11.40 Type 2 diabetes mellitus with diabetic neuropathy, unspecified; E11.622 Type 2 diabetes mellitus with other skin ulcer; E66.9 Obesity, unspecified; Z68.39 Body mass index [BMI] 39.0-39.9, adult
CPT/HCPCS: 11042; 97605

== ENCOUNTER → 2025-01-15 12:02 | Outpatient (CLI) | payer MEDICARE, MEDICAID, SELFPAY ==
[2024-08-11 11:23] VITALS: BMI 53.1
== END ==
LOC: WC 12:02
PROVIDERS: Family Provider Internal Medicine; PCP Internal Medicine; Referring Provider Internal Medicine; Visit Provider Surgery
DX: T81.89XA Other complications of procedures, not elsewhere classified, initial encounter (principal); S31.604A Unspecified open wound of abdominal wall, left lower quadrant with penetration into peritoneal cavity, initial encounter; E11.40 Type 2 diabetes mellitus with diabetic neuropathy, unspecified; E11.622 Type 2 diabetes mellitus with other skin ulcer; R60.0 Localized edema
CPT/HCPCS: 11042; 11045; 97605; 99183; G0277

== ENCOUNTER → 2025-01-19 12:42 | Outpatient (CLI) | payer MEDICARE, MEDICAID, SELFPAY ==
[2024-08-11 11:23] VITALS: BMI 53.1
== END ==
LOC: WC 01-23 12:43
PROVIDERS: Family Provider Internal Medicine; PCP Internal Medicine; Referring Provider Internal Medicine; Visit Provider Surgery
DX: T81.89XA Other complications of procedures, not elsewhere classified, initial encounter (principal); S31.104A Unspecified open wound of abdominal wall, left lower quadrant without penetration into peritoneal cavity, initial encounter; E11.42 Type 2 diabetes mellitus with diabetic polyneuropathy; E11.622 Type 2 diabetes mellitus with other skin ulcer
CPT/HCPCS: 17250; 99213

== ENCOUNTER → 2025-01-23 10:27 | Outpatient (CLI) | payer MEDICARE, MEDICAID, SELFPAY ==
[2024-08-11 11:23] VITALS: BMI 53.1
== END ==
LOC: WC 10:38
PROVIDERS: Family Provider Internal Medicine; PCP Internal Medicine; Referring Provider Internal Medicine; Visit Provider Physician Assistant
DX: T81.89XA Other complications of procedures, not elsewhere classified, initial encounter (principal); L98.8 Other specified disorders of the skin and subcutaneous tissue; S31.104A Unspecified open wound of abdominal wall, left lower quadrant without penetration into peritoneal cavity, initial encounter; Z88.0 Allergy status to penicillin
CPT/HCPCS: 97605

== ENCOUNTER → 2025-01-27 11:05 | Outpatient (CLI) | payer MEDICARE, MEDICAID, SELFPAY ==
[2024-08-11 11:23] VITALS: BMI 53.1
== END ==
PROVIDERS: Family Provider Internal Medicine; PCP Internal Medicine; Referring Provider Internal Medicine; Visit Provider Surgery
DX: T81.89XA Other complications of procedures, not elsewhere classified, initial encounter (principal); S31.604A Unspecified open wound of abdominal wall, left lower quadrant with penetration into peritoneal cavity, initial encounter; E11.628 Type 2 diabetes mellitus with other skin complications; E66.9 Obesity, unspecified; Z68.39 Body mass index [BMI] 39.0-39.9, adult; R60.0 Localized edema
CPT/HCPCS: 11042; 11045; 97605; 99213

== ENCOUNTER → 2025-01-30 10:44 | Outpatient (CLI) | payer MEDICARE, MEDICAID, SELFPAY ==
[2024-08-11 11:23] VITALS: BMI 53.1
== END ==
LOC: WC 10:44
PROVIDERS: Family Provider Internal Medicine; PCP Internal Medicine; Referring Provider Internal Medicine; Visit Provider Surgery
DX: T81.89XA Other complications of procedures, not elsewhere classified, initial encounter (principal); S31.604A Unspecified open wound of abdominal wall, left lower quadrant with penetration into peritoneal cavity, initial encounter; R60.0 Localized edema; E66.9 Obesity, unspecified; Z68.39 Body mass index [BMI] 39.0-39.9, adult
CPT/HCPCS: 97605

== ENCOUNTER → 2025-02-03 10:55 | Outpatient (CLI) | payer MEDICARE, MEDICAID, SELFPAY ==
[2024-08-11 11:23] VITALS: BMI 53.1
== END ==
LOC: WC 10:56
PROVIDERS: Family Provider Internal Medicine; PCP Internal Medicine; Referring Provider Internal Medicine; Visit Provider Surgery
DX: T81.89XA Other complications of procedures, not elsewhere classified, initial encounter (principal); S31.104A Unspecified open wound of abdominal wall, left lower quadrant without penetration into peritoneal cavity, initial encounter; R60.0 Localized edema
CPT/HCPCS: 11042; 97605

== ENCOUNTER → 2025-02-05 10:27 | Outpatient (CLI) | payer MEDICARE, MEDICAID, SELFPAY ==
[2024-08-11 11:23] VITALS: BMI 53.1
== END ==
LOC: WC 10:28
PROVIDERS: Family Provider Internal Medicine; PCP Internal Medicine; Referring Provider Internal Medicine; Visit Provider Surgery
DX: T81.89XA Other complications of procedures, not elsewhere classified, initial encounter (principal); S31.104A Unspecified open wound of abdominal wall, left lower quadrant without penetration into peritoneal cavity, initial encounter
CPT/HCPCS: 97605

== ENCOUNTER → 2025-02-09 10:24 | Outpatient (CLI) | payer MEDICARE, MEDICAID, SELFPAY ==
[2024-08-11 11:23] VITALS: BMI 53.1
== END ==
PROVIDERS: Family Provider Internal Medicine; PCP Internal Medicine; Referring Provider Internal Medicine; Visit Provider Surgery
DX: T81.89XA Other complications of procedures, not elsewhere classified, initial encounter (principal); S31.109A Unspecified open wound of abdominal wall, unspecified quadrant without penetration into peritoneal cavity, initial encounter
CPT/HCPCS: 11042; 97605

== ENCOUNTER → 2025-02-12 10:25 | Outpatient (CLI) | payer MEDICARE, MEDICAID, SELFPAY ==
[2024-08-11 11:23] VITALS: BMI 53.1
== END ==
PROVIDERS: Family Provider Internal Medicine; PCP Internal Medicine; Referring Provider Internal Medicine; Visit Provider Surgery
DX: T81.89XA Other complications of procedures, not elsewhere classified, initial encounter (principal); T81.41XA Infection following a procedure, superficial incisional surgical site, initial encounter; S31.104A Unspecified open wound of abdominal wall, left lower quadrant without penetration into peritoneal cavity, initial encounter
CPT/HCPCS: 97605; 99212

== ENCOUNTER → 2025-02-16 10:43 | Outpatient (CLI) | payer MEDICARE, MEDICAID, SELFPAY ==
[2024-08-11 11:23] VITALS: BMI 53.1
== END ==
LOC: WC 10:45
PROVIDERS: Family Provider Internal Medicine; PCP Internal Medicine; Referring Provider Internal Medicine; Visit Provider Surgery
DX: T81.89XA Other complications of procedures, not elsewhere classified, initial encounter (principal); S31.104A Unspecified open wound of abdominal wall, left lower quadrant without penetration into peritoneal cavity, initial encounter; E11.628 Type 2 diabetes mellitus with other skin complications
CPT/HCPCS: 11042; 97605

== ENCOUNTER → 2025-02-19 10:42 | Outpatient (CLI) | payer MEDICARE, MEDICAID, SELFPAY ==
[2024-08-11 11:23] VITALS: BMI 53.1
== END ==
LOC: WC 10:43
PROVIDERS: Family Provider Internal Medicine; PCP Internal Medicine; Referring Provider Internal Medicine; Visit Provider Nurse Practitioner Family
DX: T81.89XA Other complications of procedures, not elsewhere classified, initial encounter (principal); S31.104A Unspecified open wound of abdominal wall, left lower quadrant without penetration into peritoneal cavity, initial encounter
CPT/HCPCS: 97605

== ENCOUNTER → 2025-02-23 12:02 | Outpatient (CLI) | payer MEDICARE, MEDICAID, SELFPAY ==
[2024-08-11 11:23] VITALS: BMI 53.1
== END ==
LOC: WC 12:03
PROVIDERS: Family Provider Internal Medicine; PCP Internal Medicine; Referring Provider Internal Medicine; Visit Provider Surgery
DX: T81.89XA Other complications of procedures, not elsewhere classified, initial encounter (principal); S31.104A Unspecified open wound of abdominal wall, left lower quadrant without penetration into peritoneal cavity, initial encounter
CPT/HCPCS: 11042; 97605; 99213

== ENCOUNTER → 2025-02-26 10:28 | Outpatient (CLI) | payer MEDICARE, MEDICAID, SELFPAY ==
[2024-08-11 11:23] VITALS: BMI 53.1
== END ==
LOC: WC 10:29
PROVIDERS: Family Provider Internal Medicine; PCP Internal Medicine; Referring Provider Internal Medicine; Visit Provider Surgery
DX: T81.89XA Other complications of procedures, not elsewhere classified, initial encounter (principal); L98.8 Other specified disorders of the skin and subcutaneous tissue; S31.104A Unspecified open wound of abdominal wall, left lower quadrant without penetration into peritoneal cavity, initial encounter; R60.0 Localized edema
CPT/HCPCS: 87070; 87075; 87077; 87147; 87186; 87205; 99213

== ENCOUNTER → 2025-03-02 13:20 | Outpatient (CLI) | payer MEDICARE, MEDICAID, SELFPAY ==
[2024-08-11 11:23] VITALS: BMI 53.1
== END ==
LOC: WC 13:20
PROVIDERS: Family Provider Internal Medicine; PCP Internal Medicine; Referring Provider Internal Medicine; Visit Provider Surgery
DX: T81.89XA Other complications of procedures, not elsewhere classified, initial encounter (principal); S31.104A Unspecified open wound of abdominal wall, left lower quadrant without penetration into peritoneal cavity, initial encounter; E11.628 Type 2 diabetes mellitus with other skin complications; E11.40 Type 2 diabetes mellitus with diabetic neuropathy, unspecified; I50.9 Heart failure, unspecified; J44.9 Chronic obstructive pulmonary disease, unspecified; E66.9 Obesity, unspecified; Z68.39 Body mass index [BMI] 39.0-39.9, adult
CPT/HCPCS: 11042

== ENCOUNTER → 2025-04-08 10:46 | Outpatient (CLI) | payer MEDICARE, MEDICAID, SELFPAY ==
[2024-08-11 11:23] VITALS: BMI 53.1
== END ==
LOC: WC 10:46
PROVIDERS: Family Provider Internal Medicine; PCP Internal Medicine; Referring Provider Internal Medicine; Visit Provider Physician Assistant
DX: E11.621 Type 2 diabetes mellitus with foot ulcer (principal); L97.512 Non-pressure chronic ulcer of other part of right foot with fat layer exposed; L84 Corns and callosities; E11.628 Type 2 diabetes mellitus with other skin complications; T81.89XA Other complications of procedures, not elsewhere classified, initial encounter; S31.104A Unspecified open wound of abdominal wall, left lower quadrant without penetration into peritoneal cavity, initial encounter; L98.8 Other specified disorders of the skin and subcutaneous tissue; M21.171 Varus deformity, not elsewhere classified, right ankle; E11.40 Type 2 diabetes mellitus with diabetic neuropathy, unspecified; E66.9 Obesity, unspecified; Z68.39 Body mass index [BMI] 39.0-39.9, adult; I50.9 Heart failure, unspecified; J44.9 Chronic obstructive pulmonary disease, unspecified; Z88.0 Allergy status to penicillin; Z88.1 Allergy status to other antibiotic agents; Z88.8 Allergy status to other drugs, medicaments and biological substances
CPT/HCPCS: 11042; 99214

== ENCOUNTER → 2025-04-13 12:14 | Outpatient (CLI) | payer MEDICARE, MEDICAID, SELFPAY ==
[2024-08-11 11:23] VITALS: BMI 53.1
== END ==
LOC: WC 12:15
PROVIDERS: Family Provider Internal Medicine; PCP Internal Medicine; Referring Provider Internal Medicine; Visit Provider Surgery
DX: E11.621 Type 2 diabetes mellitus with foot ulcer (principal); L97.512 Non-pressure chronic ulcer of other part of right foot with fat layer exposed; L84 Corns and callosities; L98.8 Other specified disorders of the skin and subcutaneous tissue; E11.628 Type 2 diabetes mellitus with other skin complications; T81.89XA Other complications of procedures, not elsewhere classified, initial encounter; S31.104A Unspecified open wound of abdominal wall, left lower quadrant without penetration into peritoneal cavity, initial encounter; E11.40 Type 2 diabetes mellitus with diabetic neuropathy, unspecified; E66.9 Obesity, unspecified; Z68.39 Body mass index [BMI] 39.0-39.9, adult; I50.9 Heart failure, unspecified; J44.9 Chronic obstructive pulmonary disease, unspecified; Z88.0 Allergy status to penicillin; Z88.1 Allergy status to other antibiotic agents; Z88.8 Allergy status to other drugs, medicaments and biological substances
CPT/HCPCS: 11042

== ENCOUNTER 2025-04-24 09:45 | Outpatient (RCR) | payer MEDICARE, MEDICAID, SELFPAY ==
[2024-08-11 11:23] VITALS: BMI 53.1
--- NOTE | 2025-04-08 10:30 | PT.OIE ---
Current Diagnoses Other chronic pain (04/08/25) Spinal stenosis, lumbar region with neurogenic claudication (04/08/25) Cervicalgia (04/08/25) Low back pain, unspecified (04/08/25) Past Medical History (Last Updated 04/08/25 @ 16:56 by Jhon Taylor MD) Acquired hypothyroidism Allergic rhinitis Anemia Anemia due to blood loss, acute Arthritis Asthma BPH (benign prostatic hyperplasia) BPH w urinary obs/LUTS BPPV (benign paroxysmal positional vertigo) Bullous pemphigoid Cervicalgia Mpgmswg-Yaalf-Swgxo disease Chronic diastolic CHF (congestive heart failure) Chronic dyspnea Chronic pain syndrome Chronic, continuous use of opioids Cobalamin deficiency COPD (chronic obstructive pulmonary disease) Degenerative arthritis of cervical spine Degenerative joint disease of knee Degenerative joint disease, ankle, foot, toe Diabetic neuropathy Eczematous dermatitis Erectile dysfunction Essential hypertension Grief reaction Herniated nucleus pulposus with myelopathy, thoracic Herniated nucleus pulposus, L1-2 Herniated nucleus pulposus, L3-4 left History of colonic polyps History of migraine headaches HTN (hypertension) [employer]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 Major depression, recurrent Mixed hyperlipidemia Nephrolithiasis Non-pressure chronic ulcer of right heel and midfoot limited to breakdown of skin Obesity Opioid dependence, uncomplicated Phrenic nerve paralysis PTSD (post-traumatic stress disorder) Recurrent sinusitis Right foot drop Right rotator cuff tendonitis Secondary hyperaldosteronism Sinusitis Spinal stenosis of lumbar region at multiple levels Type 2 diabetes mellitus with foot ulcer Type 2 diabetes mellitus with polyneuropathy Unilateral primary osteoarthritis, right knee Past Surgical History (Last Reviewed 04/08/25 @ 16:15 by Jhon Taylor MD) History of incision and drainage (04/15/21) History of nasal surgery History of spinal fusion Hx of foot surgery Hx of fusion of cervical spine Hx of hand surgery Hx of knee surgery Hx of thyroidectomy Visit Care Team Role Provider Type Jhon Taylor MD Attending Provider Physician Family Provider Primary Care Provider Referring Provider Specialty: Internal Medicine Address: [address] [place] [address], [facility] Email: [email or web address] Physical Therapy Initial Evaluation PT OP: Lower Back/Lower Extremity Start: 04/08/25 10:34 Freq: Status: Active Protocol: Document 04/08/25 09:50 DCW (Rec: 04/08/25 10:44 [facility] [id number]) Out-Patient Physical Therapy Visit Information Visit Information Visit Type Initial Evaluation Visit Start Time 09:50 Visit Stop Time 10:30 Visit Number 1 Number of SAP PI ARCHITECT Visits 0 Progress Note Due 05/08/25 Evaluation Information Evaluation Date 04/08/25 Current Condition History of Current Condition History of Current Pt is a 59 year old male presenting with a highly Condition complex medical history complaining of low back and neck pain. Pt has been seen off and on for multiple years at this clinic for similar symptoms, often discharging in order to undergo another surgery. Pt was seen ~one year ago, however discharged in order to have an abscess removed from his abdomen, which then caused a bacterial infection, required IV antibiotics for three months, and had multiple surgeries to close everything up. Has also recently undergone multiple spinal surgeries, including a fusion of his thoracic spine. Comes in today noting that he is now undergoing a foot surgery on 04/29/25, which will obviously limit his participation in PT at this time, will require a new referral to return afterward. In the mean time, notes worsening low back and cervical pain. Has been trying to perform some of his prior HEP, but sees limited improvement. Notes difficulty standing up straight. OP-PT Subjective Patient Comments Patient Comments I've stopped taking muscle relaxers. I think their therapeutic value has really petered out. Patient Questionnaires Neck Disability Index NDI Score 33/50 = 66% Manual Assessments Soft Tissue Assessment Soft Tissue Mobility Moderate tone in bilateral lumbar paraspinals, Assessment tenderness to palpation 3/4: wincing and withdraw Lumbar Spine Range of Motion Lumbar Spine Active Degrees Testing Position Standing Flexion 25 Extension 3 ROM Limitations Soft Tissue Tightness,Muscle Weakness,Muscle Tone,Pain Manual Therapy Treatment Consent Patient gave verbal Yes consent for manual treatment Soft Tissue Mobilization Lumbar Body Location Lumbar paraspinals, QL, Piriformis Mobilization Type Strumming,Sustained Pressure,Trigger Point Release Intensity/Depth Moderate Body Position Prone Physical Therapy Assessment Rehab Potential Rehabilitation Fair Potential Evaluation Complexity Number of Personal 3 or More Factors/ Comorbidities Number of Body 4 or More Systems Impaired Clinical Unstable Presentation at Evaluation Impairments Impairments Activity Tolerance,Functional Activities,Functional Mobility,Pain,ROM,Soft Tissue Mobility,Strength,Tone Goals One Impairment Pt demonstrates limited lumbar ROM Skilled Nursing Goal (LTG) Pt to demonstrate increased lumbar ROM to >40? flexion in order to demonstrate improved functional mobility LTG Duration 06/08/25 Assessment Summary Assessment Pt presents with signs and symptoms consistent with referring diagnosis. Limitations in spinal mobility, weakness, and soft tissue tone. Pt will likely benefit from STM, strengthening, stretching, and functional mobility training. Therapy will, however, likely be limited secondary to likely upcoming foot surgery, pt will most likely need to be discharged from PT due to change in medical status at the time of his surgery, with understanding he will need a new referral in order to return. Physical Therapy Plan Frequency and Duration Frequency of 2x/Week Treatment Plan of Care Start 04/08/25 Date Plan of Care End 06/08/25 Date Therapeutic Interventions Therapeutic Home Exercise Program,Joint Mobilizations,Manual Interventions Therapy,Neuromuscular Re-education,Patient/Caregiver Education,Self-Care/Home Management,Soft Tissue Mobilization,Therapeutic Activities,Therapeutic Exercises Next Visit Focus/Plan Next Note Type Treatment Note Next Visit Plan STM, strengthening, functional mobility
--- NOTE | 2025-04-14 10:31 | PT.OTN ---
Current Diagnoses Other chronic pain (04/14/25) Spinal stenosis, lumbar region with neurogenic claudication (04/14/25) Cervicalgia (04/14/25) Low back pain, unspecified (04/14/25) Physical Therapy Treatment Note PT OP: Lower Back/Lower Extremity Start: 04/08/25 10:34 Freq: Status: Active Protocol: Document 04/14/25 09:45 DCW (Rec: 04/14/25 10:28 DCW [id number]) Out-Patient Physical Therapy Visit Information Visit Information Visit Type Treatment Note Visit Start Time 09:45 Visit Stop Time 10:30 Visit Number 2 Number of BASIC SCIENCES PROFESSOR Visits 0 Progress Note Due 05/08/25 Evaluation Information Evaluation Date 04/08/25 OP-PT Subjective Patient Comments Patient Comments Low back and neck are cramping up. Manual Therapy Treatment Consent Patient gave verbal Yes consent for manual treatment Soft Tissue Mobilization Cervical Body Location Cervical paraspinals, UT, SCM Mobilization Type Strumming,Sustained Pressure,Trigger Point Release Body Position Supine Parascapular Body Location B Parascapular musculature Mobilization Type Strumming,Sustained Pressure Body Position Prone Lumbar Body Location Lumbar paraspinals, QL, Piriformis Mobilization Type Strumming,Sustained Pressure,Trigger Point Release Intensity/Depth Moderate Body Position Prone Physical Therapy Assessment Impairments Impairments Activity Tolerance,Functional Activities,Functional Mobility,Pain,ROM,Soft Tissue Mobility,Strength,Tone Goals One Impairment Pt demonstrates limited lumbar ROM Rn Obgyn Goal (LTG) Pt to demonstrate increased lumbar ROM to >40? flexion in order to demonstrate improved functional mobility LTG Duration 06/08/25 Assessment Summary Assessment Pt tone in low back and parascapular musculature continues to impact mobility and pain. Tolerated treatment well. Pt will continue to benefit from STM, strengthening, and flexibility. Physical Therapy Plan Frequency and Duration Frequency of 2x/Week Treatment Plan of Care Start 04/08/25 Date Plan of Care End 06/08/25 Date Therapeutic Interventions Therapeutic Home Exercise Program,Joint Mobilizations,Manual Interventions Therapy,Neuromuscular Re-education,Patient/Caregiver Education,Self-Care/Home Management,Soft Tissue Mobilization,Therapeutic Activities,Therapeutic Exercises Next Visit Focus/Plan Next Note Type Treatment Note Next Visit Plan STM, strengthening, functional mobility
--- NOTE | 2025-04-17 11:25 | PT.OTN ---
Current Diagnoses Other chronic pain (04/17/25) Spinal stenosis, lumbar region with neurogenic claudication (04/17/25) Cervicalgia (04/17/25) Low back pain, unspecified (04/17/25) Physical Therapy Treatment Note PT OP: Lower Back/Lower Extremity Start: 04/08/25 10:34 Freq: Status: Active Protocol: Document 04/17/25 10:40 DCW (Rec: 04/17/25 11:25 DCW [id number]) Out-Patient Physical Therapy Visit Information Visit Information Visit Type Treatment Note Visit Start Time 10:40 Visit Stop Time 11:25 Visit Number 3 Number of HOLDER PILE DRIVING Visits 0 Progress Note Due 05/08/25 Evaluation Information Evaluation Date 04/08/25 OP-PT Subjective Patient Comments Patient Comments Pt notes he's doing better, standing up straighter today. Manual Therapy Treatment Consent Patient gave verbal Yes consent for manual treatment Soft Tissue Mobilization Cervical Body Location Cervical paraspinals, UT, SCM Mobilization Type Strumming,Sustained Pressure,Trigger Point Release Body Position Supine Parascapular Body Location B Parascapular musculature Mobilization Type Strumming,Sustained Pressure Body Position Prone Lumbar Body Location Lumbar paraspinals, QL, Piriformis Mobilization Type Strumming,Sustained Pressure,Trigger Point Release Intensity/Depth Moderate Body Position Prone Physical Therapy Assessment Impairments Impairments Activity Tolerance,Functional Activities,Functional Mobility,Pain,ROM,Soft Tissue Mobility,Strength,Tone Goals One Impairment Pt demonstrates limited lumbar ROM Cigar Roller Goal (LTG) Pt to demonstrate increased lumbar ROM to >40? flexion in order to demonstrate improved functional mobility LTG Duration 06/08/25 Assessment Summary Assessment Pt tolerated well, felt significantly better following treatment session today. Discussed planks to work on core strength, recommended starting from knees, ensure able to maintain correct posture. Physical Therapy Plan Frequency and Duration Frequency of 2x/Week Treatment Plan of Care Start 04/08/25 Date Plan of Care End 06/08/25 Date Therapeutic Interventions Therapeutic Home Exercise Program,Joint Mobilizations,Manual Interventions Therapy,Neuromuscular Re-education,Patient/Caregiver Education,Self-Care/Home Management,Soft Tissue Mobilization,Therapeutic Activities,Therapeutic Exercises Next Visit Focus/Plan Next Note Type Treatment Note Next Visit Plan STM, strengthening, functional mobility
--- NOTE | 2025-04-24 10:31 | PT.OTN ---
Current Diagnoses Other chronic pain (04/24/25) Spinal stenosis, lumbar region with neurogenic claudication (04/24/25) Cervicalgia (04/24/25) Low back pain, unspecified (04/24/25) Physical Therapy Treatment Note PT OP: Lower Back/Lower Extremity Start: 04/08/25 10:34 Freq: Status: Active Protocol: Document 04/24/25 09:45 DCW (Rec: 04/24/25 10:31 DCW [id number]) Out-Patient Physical Therapy Visit Information Visit Information Visit Type Treatment Note Visit Start Time 09:45 Visit Stop Time 10:30 Visit Number 4 Number of VASCULAR RADIOLOGIST Visits 0 Progress Note Due 05/08/25 Evaluation Information Evaluation Date 04/08/25 OP-PT Subjective Patient Comments Patient Comments Pt got Sunday, reports he is fairly sore from standing for an extended period of time. Manual Therapy Treatment Consent Patient gave verbal Yes consent for manual treatment Soft Tissue Mobilization Cervical Body Location Cervical paraspinals, UT, SCM Mobilization Type Strumming,Sustained Pressure,Trigger Point Release Body Position Supine Parascapular Body Location B Parascapular musculature Mobilization Type Strumming,Sustained Pressure Body Position Prone Lumbar Body Location Lumbar paraspinals, QL, Piriformis Mobilization Type Strumming,Sustained Pressure,Trigger Point Release Intensity/Depth Moderate Body Position Prone Physical Therapy Assessment Impairments Impairments Activity Tolerance,Functional Activities,Functional Mobility,Pain,ROM,Soft Tissue Mobility,Strength,Tone Goals One Impairment Pt demonstrates limited lumbar ROM Burrer Marker Axle Goal (LTG) Pt to demonstrate increased lumbar ROM to >40? flexion in order to demonstrate improved functional mobility LTG Duration 06/08/25 Assessment Summary Assessment Pt more sore today, feeling his back was tight after standing an extended period of time at his wedding on Sunday. Is noting improvement following treatment session today, standing up better. Will be undergoing surgery on foot next week. Physical Therapy Plan Frequency and Duration Frequency of 2x/Week Treatment Plan of Care Start 04/08/25 Date Plan of Care End 06/08/25 Date Therapeutic Interventions Therapeutic Home Exercise Program,Joint Mobilizations,Manual Interventions Therapy,Neuromuscular Re-education,Patient/Caregiver Education,Self-Care/Home Management,Soft Tissue Mobilization,Therapeutic Activities,Therapeutic Exercises Next Visit Focus/Plan Next Note Type Treatment Note Next Visit Plan STM, strengthening, functional mobility
--- NOTE | 2025-05-06 10:41 | PT.OPDS ---
Current Diagnoses Other chronic pain (04/24/25) Spinal stenosis, lumbar region with neurogenic claudication (04/24/25) Cervicalgia (04/24/25) Low back pain, unspecified (04/24/25) Visit Care Team Role Provider Type Jhon Taylor MD Attending Provider Physician Family Provider Primary Care Provider Referring Provider Specialty: Internal Medicine Address: [address] [place] [address], [facility] Email: [email or web address] Visit Number Visit Number 4 Discharge Summary PT OP: Lower Back/Lower Extremity Start: 04/08/25 10:34 Freq: Status: Active Protocol: Document 05/06/25 10:36 DCW (Rec: 05/06/25 10:40 DCW [id number]) Out-Patient Physical Therapy Visit Information Visit Information Visit Type Discharge Summary Physical Therapy Assessment Assessment Summary Assessment Pt underwent surgical intervention to stabilize his ankle. Due to unexpected outcomes, pt currently intubated in [facility], and is not doing well. Pt will be discharged from skilled therapy at this time secondary to severe change in medical status, will hopefully be well enough to return in the future with a new referral. Physical Therapy Plan Frequency and Duration Frequency of 2x/Week Treatment Plan of Care Start 04/08/25 Date Plan of Care End 06/08/25 Date Therapeutic Interventions Therapeutic Home Exercise Program,Joint Mobilizations,Manual Interventions Therapy,Neuromuscular Re-education,Patient/Caregiver Education,Self-Care/Home Management,Soft Tissue Mobilization,Therapeutic Activities,Therapeutic Exercises Discharge Physical Therapy Discharge Reasons Change in Medical Status Next Visit Focus/Plan Next Note Type Discharge Summary
== END 2025-05-11 10:40 | disposition home or self-care (01) ==
LOC: PHYS 09:45
PROVIDERS: Family Provider Internal Medicine; PCP Internal Medicine; Referring Provider Internal Medicine; Visit Provider Internal Medicine
DX: M48.062 Spinal stenosis, lumbar region with neurogenic claudication (principal); M54.50 Low back pain, unspecified; G89.29 Other chronic pain; M54.2 Cervicalgia
CPT/HCPCS: 97140; 97163

== ENCOUNTER → 2025-06-24 11:09 | Outpatient (CLI) | payer MEDICARE, MEDICAID, SELFPAY ==
[2025-06-11 13:18] VITALS: BMI 53.1
[2025-06-24 12:01] LABS: Hematocrit 35.2 % (41-53); Hemoglobin 11.5 g/dL (13.5-17.5); Mean Corpuscular HGB Conc 32.7 % (30-36); Mean Corpuscular Hemoglobin 26.7 PG (26-34); Mean Corpuscular Volume 81.9 fL (80-100); Platelet Count 416 X10^3/uL (150-400)
[2025-06-24 12:14] LABS: Hemoglobin A1C% w Est Avg Glu 6.0 % (4.0-6.0)
[2025-06-24 12:20] LABS: Alanine Aminotransferase 25 IU/L (<50); Albumin 4.6 g/dL (3.5-5.0); Albumin Globulin Ratio 1.2 (1.0-2.8); Alkaline Phosphatase 100 U/L (38-126); Blood Urea Nitrogen 12 mg/dL (9-20); Calcium 9.6 mg/dL (8.4-10.2); Carbon Dioxide 31 mmol/L (22-32); Chloride 96 mmol/L (98-107); Estimated Glomerular Filt Rate > 60 mL/min (>60); Globulin 3.8 g/dL (1.7-4.1); Glucose 175 mg/dL (70-99); HEMOLYSIS < 15 (0-50); Magnesium 2.2 mg/dL (1.6-2.3); Potassium 5.1 mmol/L (3.4-5.1); Sodium 139 mmol/L (137-145); Total Protein 8.4 g/dL (6.3-8.2)
[2025-06-24 12:49] LABS: TSH w/ Reflex to FT4 0.26 uIU/mL (0.47-4.68)
[2025-06-24 13:14] LABS: Free T4, Direct Thyroxine 0.75 ng/dL (0.78-2.19)
== END ==
PROVIDERS: Family Provider Internal Medicine; PCP Internal Medicine; Referring Provider Internal Medicine; Visit Provider Internal Medicine
DX: E11.42 Type 2 diabetes mellitus with diabetic polyneuropathy (principal); D62 Acute posthemorrhagic anemia; E03.9 Hypothyroidism, unspecified; R79.0 Abnormal level of blood mineral
CPT/HCPCS: 36415; 80053; 83036; 83735; 84439; 84443; 85027

== ENCOUNTER 2025-06-29 02:24 | Emergency (ER) | payer MEDICARE, MEDICAID, SELFPAY ==
[2025-06-11 13:18] VITALS: BMI 53.1
[2025-06-29] VITALS (8 sets, daily range): BP systolic 124–146; BP diastolic 60–67; PULSE 83–95; RESP 18; TEMP 36.8; O2SAT 92–99; BMI 43.3
--- NOTE | 2025-06-29 02:42 | DI.RAD.S_ITS ---
PROCEDURE: XR TIBIA FUBULA RT 2V INDICATIONS: felt pop mid [place] now with increased pain TECHNIQUE: 2 views of the tibia and fibula were acquired. COMPARISON: None. FINDINGS: Bones: Ankle fusion hardware bridges the distal tibia through the calcaneus. No evidence of hardware failure loosening. There is a comminuted periprosthetic fracture of the distal tibial shaft. There is no associated distal fibular fracture. Fractures are near anatomic in alignment. Soft tissues: No suspicious soft tissue calcifications or masses. IMPRESSION: Remote ankle fusion. Periprosthetic fractures of the distal tibial shaft and distal fibula. Comment: Final report is concordant with preliminary interpretation provided by [facility]. Dictated by: Abel Shepherd M.D. on 06/29/2025 at 7:12 Approved by: Abel Shepherd M.D. on 06/29/2025 at 7:14
--- NOTE | 2025-06-29 02:46 | ED.LOWEXIN ---
HPI - Extremity Injury (Lower) General Chief Complaint: Extremity Injury, Lower Stated Complaint: Fall, R Leg Injury Time Seen by Provider: 06/29/25 02:27 History of Present Illness HPI Narrative: 60-year-old male had right lower extremity surgery [facility], apparently 4-5 hours of duration which he was position on his left buttock area, develop postoperative left-sided compartment syndrome in the buttock hip area, had large debridement fasciotomy and eventual surgical closure, had cardiac arrest and ICU stay, neurologically intact, discharge to [facility] rehab facility, discharged on Sunday 5 days ago, seen by PCP the next day 4 days ago, at home tonight was using his walker with partial weight-bearing right leg in L-splint, pushed up with his arms onto the walker, felt the pain to his mid tibia, then subsequently fell backwards, onto left hip area. Complains of left foreleg pain, left hip pain. Related Data Home Medications ?Medication ?Instructions ?Recorded ?Confirmed multivitamin 1 cap PO QDAY ##0 10/13/11 06/24/25 epinephrine 0.3 mg/0.3 mL 0.3 mg IM PRN PRN Allergic Reaction 07/10/19 06/24/25 injection, auto-injector aspirin 81 mg tablet,delayed 81 mg PO DAILY 11/14/21 06/24/25 release fluoride (sodium) 1.1 % dental 1 applic dental 11/24/22 06/24/25 paste Magnesium plus protein PO 06/24/25 06/24/25 baclofen 10 mg tablet 10 mg PO BID 06/24/25 06/24/25 bisacodyl 10 mg rectal suppository 10 mg [place] DAILY PRN 06/24/25 06/24/25 (Dulcolax (bisacodyl)) ksaplzfiph-belkigvkvjcpb-ktbbdido tab PO 06/24/25 06/24/25 50 mg-325 mg-40 mg tablet empagliflozin 10 mg tablet 10 mg PO QAM 06/24/25 06/24/25 fexofenadine 60 mg tablet (Aydee 60 mg PO DAILY 06/24/25 06/24/25 Allergy) fluticasone propionate 50 1 spray intranasal DAILY 06/24/25 06/24/25 mcg/actuation nasal spray,suspension (Flonase Allergy Relief) mecobalamin (vitamin B12) 500 mcg mcg PO 06/24/25 06/24/25 chewable tablet melatonin 3 mg tablet 3 mg PO BEDTIME PRN 06/24/25 06/24/25 methocarbamol 750 mg tablet 750 mg PO Q8H 06/24/25 06/24/25 torsemide 20 mg tablet 20 mg PO QAM 06/24/25 06/24/25 Previous Rx's ?Medication ?Instructions ?Recorded [Disabled Parking Permit] 1 ea Not Applicable DAILY #1 applic 06/16/22 albuterol sulfate 90 mcg/actuation 2 puff inhalation Q4-6H PRN 08/11/22 aerosol inhaler shortness of breath or wheezing #6.7 grams alpha lipoic acid 300 mg capsule 300 mg PO BID #180 caps 03/21/23 lidocaine 5 % topical patch 1 patch topical DAILY #30 ea 04/30/24 tadalafil 5 mg tablet 5 mg PO DAILY #90 tabs 06/17/24 cholecalciferol (vitamin D3) 1,250 2,500 mcg (2 x 1,250 mcg (50,000 07/28/24 mcg (50,000 unit) capsule unit)) PO QWEEK #24 caps Right knee offloader knee brace #1 ea 08/11/24 fexofenadine 180 mg tablet 180 mg PO DAILY #90 tabs 09/09/24 Diabetic Shoes #1 ea 09/10/24 semaglutide 2 mg/dose (8 mg/3 mL) 2 mg (0.75 mL) SUBCUT QWEEK #3 mL 11/12/24 subcutaneous pen injector (Ozempic) hydroxychloroquine 200 mg tablet 200 mg PO DAILY #90 tabs 12/15/24 duloxetine 60 mg capsule,delayed 60 mg PO BID #180 caps 02/24/25 release spironolactone 50 mg tablet 50 mg PO DAILY #90 tabs 03/19/25 tamsulosin 0.4 mg capsule (Flomax) 0.4 mg PO DAILY #90 caps 04/08/25 levothyroxine 200 mcg tablet 200 mcg PO DAILY #90 tabs 06/15/25 (Euthyrox) liothyronine 50 mcg tablet 50 mcg PO DAILY #90 tabs 06/15/25 rosuvastatin 5 mg tablet 5 mg PO DAILY #90 tabs 06/15/25 pregabalin 300 mg capsule 300 mg PO BID #180 caps 06/16/25 Allergies Allergy/AdvReac Type Severity Reaction Status Date / Time erythromycin base Allergy Severe Anaphylaxis Verified 06/29/25 02:43 heparin (porcine) Allergy Severe BREATHINBG Verified 06/29/25 02:43 (HEPARIN,PORCINE) DIFFICULTIES Penicillins Allergy Severe RASH, Verified 06/29/25 02:43 THROAT SWELLING Pork/Porcine Containing Allergy Severe RASH, Verified 06/29/25 02:43 Products THROAT SWELLING, VOMITING lisinopril AdvReac Cough Verified 06/29/25 02:43 Patient History Medical History (Updated 06/29/25 @ 05:20 by Tung Sellers MD) BPH w urinary obs/LUTS Erectile dysfunction PTSD (post-traumatic stress disorder) History of colonic polyps Unilateral primary osteoarthritis, right knee Anemia due to blood loss, acute COPD (chronic obstructive pulmonary disease) jail (current) use of insulin Type 2 diabetes mellitus with foot ulcer Non-pressure chronic ulcer of right heel and midfoot limited to breakdown of skin Opioid dependence, uncomplicated Secondary hyperaldosteronism Degenerative joint disease, ankle, foot, toe Chronic dyspnea Herniated nucleus pulposus, L3-4 left Smyywgy-Isyfh-Sdsow disease Phrenic nerve paralysis Degenerative arthritis of cervical spine Cervicalgia Right foot drop HTN (hypertension) BPH (benign prostatic hyperplasia) Nephrolithiasis Sinusitis BPPV (benign paroxysmal positional vertigo) Cobalamin deficiency Right rotator cuff tendonitis Allergic rhinitis Recurrent sinusitis Eczematous dermatitis Chronic, continuous use of opioids Major depression, recurrent Chronic pain syndrome Diabetic neuropathy Acquired hypothyroidism Mixed hyperlipidemia Essential hypertension Chronic diastolic CHF (congestive heart failure) Type 2 diabetes mellitus with polyneuropathy Grief reaction Bullous pemphigoid 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, thoracic Herniated nucleus pulposus, L1-2 Anemia Arthritis Asthma Obesity Spinal stenosis of lumbar region at multiple levels History of migraine headaches Surgical History (Updated 06/24/25 @ 13:02 by Jhon Taylor MD) Status post right foot surgery (04/29/25) Hx of thyroidectomy History of spinal fusion History of incision and drainage (04/15/21) History of nasal surgery Hx of knee surgery Hx of foot surgery Hx of hand surgery Hx of fusion of cervical spine Social History Smoking Status: Never smoker alcohol intake frequency: holidays/special occasions only Exam Narrative Exam Narrative: GENERAL: Well-developed patient, in mild distress. HEAD: Atraumatic. Normocephalic. EYES: Pupils equal round and reactive. Extraocular motions intact. No scleral icterus. No injection or drainage. ENT: Nose without bleeding, purulent drainage. Throat without erythema, tonsillar hypertrophy or exudate. Airway patent. NECK: Trachea midline. Non tender CARDIOVASCULAR: Regular rate and rhythm without murmurs, gallops, or rubs. RESPIRATORY: Clear to auscultation. Breath sounds equal bilaterally. No wheezes, rales, or rhonchi. GASTROINTESTINAL: Abdomen soft, non-tender, nondistended. EXTREMITIES: No edema or joint tenderness. BACK: Nontender without deformity or crepitance. No flank tenderness. NEURO: AOx3. Motor functions grossly nonfocal. SKIN: No rash or erythema of visible areas Initial Vital Signs Initial Vital Signs: Vital Signs Temperature 98.2 F 06/29/25 02:43 Pulse Rate 95 H 06/29/25 02:43 Respiratory Rate 18 06/29/25 02:43 Blood Pressure 146/67 H 06/29/25 02:43 Pulse Oximetry 99 06/29/25 02:43 Oxygen Delivery Method Room Air 06/29/25 02:43 Course Orders Ordered: ED Orders 06/29/25 02:42 XR tibia fibula RT 2V Stat 06/29/25 03:04 XR ankle RT min 3V Stat XR hip w pel LT 2V Stat Discontinued Medications Hydromorphone HCl (Hydromorphone 1 Mg/Ml Syringe) 1 mg IM NOW ONE Stop: 06/29/25 03:04 Last Admin: 06/29/25 03:25 Dose: 1 mg Documented By: LIVIER Hydromorphone HCl (Hydromorphone 1 Mg/Ml Syringe) 1 mg IV NOW ONE Stop: 06/29/25 06:49 Last Admin: 06/29/25 06:58 Dose: Not Given Documented By: DELFINA Hydromorphone HCl (Hydromorphone 1 Mg/Ml Syringe) 1 mg IM NOW ONE Stop: 06/29/25 06:57 Last Admin: 06/29/25 06:58 Dose: 1 mg Documented By: DELFINA Vital Signs Vital signs: Vital Signs - 8 hr 06/29/25 02:43 06/29/25 03:15 06/29/25 03:48 Temperature 98.2 F Pulse Rate 95 H 94 H 90 Respiratory Rate 18 Blood Pressure 146/67 H Pulse Oximetry 99 97 92 Oxygen Delivery Method Room Air 06/29/25 04:00 06/29/25 04:30 06/29/25 05:00 Temperature Pulse Rate 87 86 83 Respiratory Rate Blood Pressure Pulse Oximetry 96 95 97 Oxygen Delivery Method Room Air 06/29/25 05:30 06/29/25 07:37 Temperature Pulse Rate 84 Respiratory Rate Blood Pressure 124/60 Pulse Oximetry 95 Oxygen Delivery Method MDM - Extremity Injury (Lower) MDM Narrative Medical decision making narrative: 60-year-old male status post right ankle fusion surgery [facility] lasting 4-5 hours duration, developed left buttock region compartment syndrome leading to fasciotomy, subsequent primary closure, at some point during his long hospital stay at [facility] had cardiac arrest, ROSC with intact neuro status, recovery, discharged to rehab center, discharged from rehab center 5 days ago, saw local PCP in clinic 4 days ago, using walker at home tonight with 50% right lower extremity weight-bearing instructions, use his walker and was pushing up with his arms when he felt pain to his right mid foreleg, fell backwards striking left hip. X-ray right ankle shows hardware with miladis through distal tibia, comminuted metaphyseal fracture above the proximal end of the tibial miladis hardware, minimally displaced. ED wet read. Await Radiology report. Patient aware of fracture findings. X-ray also pending left hip/pelvis. IM Dilaudid. Keep NPO for now. Right tib-fib x-ray series. Impressions: ?Distal tibial shaft fracture involving through proximal end of the tibial miladis. Lateral malleolar fracture also noted.? See tele radiology report. Right ankle x-ray series. Impressions: ?Distal tibial and fibular fractures as detailed above. The ankle fusion appears likely to remain intact. See tele radiology report. 0415, case discussed with [facility] intake, await call back from orthopedics. X-ray images pushed. 0420, case discussed with [facility] nursing intake and then emergency physician Dr Hurt, accepts patient for transfer ED to ED. Transport ground EMS available 0530. We discussed long leg splinting with you stirrup support, patient prefers to have his previous splint in place, feels better with the splint back in place. Transport in existing splint for now per patient preference. IM Dilaudid repeat dose. 0530, ground transport to [facility] ED to ED as planned. Discharge Plan Departure Patient Disposition: [facility] Clinical Impression: Periprosthetic fracture around internal prosthetic joint, Closed tibia fracture Prescriptions: No Action duloxetine 60 mg capsule,delayed release(DR/EC) 60 mg PO BID Qty: 180 2RF multivitamin Tablet 1 cap PO QDAY Qty: 0 [Disabled Parking Permit] 1 ea Not Applicable DAILY Qty: 1 0RF albuterol sulfate 90 mcg/actuation HFA aerosol inhaler 2 puff inhalation Q4-6H PRN (Reason: shortness of breath or wheezing) Qty: 6.7 12RF alpha lipoic acid 300 mg capsule 300 mg PO BID Qty: 180 3RF lidocaine 5 % adhesive patch,medicated 1 patch topical DAILY Qty: 30 5RF Rx Instructions: leave on most painful area for up to 12 hrs tadalafil 5 mg tablet 5 mg PO DAILY Qty: 90 3RF cholecalciferol (vitamin D3) 1,250 mcg (50,000 unit) capsule 2,500 mcg PO QWEEK Qty: 24 3RF fexofenadine 180 mg tablet 180 mg PO DAILY Qty: 90 3RF (DME) Diabetic Shoes See Rx Instructions .Route .MEDSUPPLY Qty: 1 0RF Rx Instructions: Bilateral diabetic shoes per [facility]. hydroxychloroquine 200 mg tablet 200 mg PO DAILY Qty: 90 1RF spironolactone 50 mg tablet 50 mg PO DAILY Qty: 90 3RF levothyroxine [Euthyrox] 200 mcg tablet 200 mcg PO DAILY Qty: 90 3RF liothyronine 50 mcg tablet 50 mcg PO DAILY Qty: 90 3RF rosuvastatin 5 mg tablet 5 mg PO DAILY Qty: 90 3RF pregabalin 300 mg capsule 300 mg PO BID Qty: 180 1RF aspirin 81 mg tablet,delayed release (DR/EC) 81 mg PO DAILY tamsulosin [Flomax] 0.4 mg capsule 0.4 mg PO DAILY Qty: 90 3RF fluoride (sodium) 1.1 % paste 1 applic dental (DME) Right knee offloader knee brace See Rx Instructions .Route .MEDSUPPLY Qty: 1 0RF Rx Instructions: As directed Ozempic 2 mg/dose (8 mg/3 mL) pen injector 2 mg SUBCUT QWEEK Qty: 3 5RF qfqbixxxyp-doyljqsjnfrtb-axmx 50-325-40 mg tablet PO baclofen 10 mg tablet 10 mg PO BID bisacodyl [Dulcolax (bisacodyl)] 10 mg suppository 10 mg [place] DAILY PRN mecobalamin (vitamin B12) 500 mcg tablet,chewable PO torsemide 20 mg tablet 20 mg PO QAM fexofenadine [Aydee Allergy] 60 mg tablet 60 mg PO DAILY melatonin 3 mg tablet 3 mg PO BEDTIME PRN methocarbamol 750 mg tablet 750 mg PO Q8H fluticasone propionate [Flonase Allergy Relief] 50 mcg/actuation spray,suspension 1 spray intranasal DAILY Rx Instructions: administer into each nostril empagliflozin 10 mg tablet 10 mg PO QAM Magnesium plus protein 133 mg tablet PO epinephrine 0.3 mg/0.3 mL auto-injector 0.3 mg IM PRN PRN (Reason: Allergic Reaction) Referrals: Jhon Taylor MD [Primary Care Provider, Internal Medicine]
--- NOTE | 2025-06-29 03:04 | DI.RAD.S_ITS ---
PROCEDURE: XR ANKLE RT MIN 3V INDICATIONS: foreleg ankle pain, prior ankle fusion TECHNIQUE: 3 views of the ankle were acquired. COMPARISON: None. FINDINGS: Bones: Ankle fusion hardware. Extensive midfoot degenerative change. Extensive ankle joint degenerative change are noted. There is a periprosthetic fracture of the distal tibial shaft at the proximal aspect of the orthopedic fusion hardware. There is an associated nondisplaced distal lateral malleolar fracture. Soft tissues: No tibiotalar joint effusion. Achilles tendon appears normal. IMPRESSION: Periprostatic fractures of the distal tibia and distal fibula. Comment: Final report is concordant with preliminary interpretation provided by [facility]. Dictated by: Abel Shepherd M.D. on 06/29/2025 at 7:14 Approved by: Abel Shepherd M.D. on 06/29/2025 at 7:16
--- NOTE | 2025-06-29 03:04 | DI.RAD.S_ITS ---
PROCEDURE: XR HIP W PEL IF DONE LT 2V INDICATIONS: left hip pain, GLF TECHNIQUE: AP pelvis with lateral view(s) of the left hip(s). COMPARISON: [facility], , [id number] W PEL IF PERFORMED, 10/07/2015, 11:01. FINDINGS: Bones: No fractures or dislocations. Pelvic ring appears intact. [id number] degenerative arthritis of the bilateral hips. No suspicious bony lesions. Soft tissues: The visualized bowel gas pattern is normal. No suspicious soft tissue calcifications. IMPRESSION: No evidence acute bony abnormality. Comment: Final report is concordant with preliminary interpretation provided by [facility]. Dictated by: Abel Shepherd M.D. on 06/29/2025 at 7:16 Approved by: Abel Shepherd M.D. on 06/29/2025 at 7:17
== END 2025-06-29 07:39 | disposition short-term general hospital (02) ==
PROVIDERS: Emergency Provider Emergency Medicine; Family Provider Internal Medicine; PCP Internal Medicine
DX: S82.301A Unspecified fracture of lower end of right tibia, initial encounter for closed fracture (principal); S82.831A Other fracture of upper and lower end of right fibula, initial encounter for closed fracture; M97.21XA Periprosthetic fracture around internal prosthetic right ankle joint, initial encounter; M25.552 Pain in left hip; W18.30XA Fall on same level, unspecified, initial encounter
CPT/HCPCS: 73502; 73590; 73610; 96372; 99283; 99284; J1171

== ENCOUNTER → 2025-07-21 10:48 | Outpatient (CLI) | payer MEDICARE, MEDICAID, SELFPAY ==
[2025-06-11 13:18] VITALS: BMI 53.1
[2025-07-21 11:42] LABS: Hematocrit 34.4 % (41-53); Hemoglobin 11.0 g/dL (13.5-17.5); Mean Corpuscular HGB Conc 32.1 % (30-36); Mean Corpuscular Hemoglobin 25.1 PG (26-34); Mean Corpuscular Volume 78.2 fL (80-100); Platelet Count 275 X10^3/uL (150-400)
[2025-07-21 11:53] LABS: Albumin 4.7 g/dL (3.5-5.0); Albumin Globulin Ratio 1.2 (1.0-2.8); Alkaline Phosphatase 95 U/L (38-126); Blood Urea Nitrogen 18 mg/dL (9-20); Calcium 9.4 mg/dL (8.4-10.2); Carbon Dioxide 29 mmol/L (22-32); Chloride 99 mmol/L (98-107); Estimated Glomerular Filt Rate > 60 mL/min (>60); Globulin 4.0 g/dL (1.7-4.1); Glucose 141 mg/dL (70-99); HEMOLYSIS < 15 (0-50); Magnesium 2.2 mg/dL (1.6-2.3); Potassium 4.3 mmol/L (3.4-5.1); Sodium 140 mmol/L (137-145); Total Protein 8.7 g/dL (6.3-8.2)
[2025-07-21 11:55] LABS: Alanine Aminotransferase 28 IU/L (<50)
== END ==
PROVIDERS: Family Provider Internal Medicine; PCP Internal Medicine; Referring Provider Internal Medicine; Visit Provider Internal Medicine
DX: E11.42 Type 2 diabetes mellitus with diabetic polyneuropathy (principal); R79.0 Abnormal level of blood mineral
CPT/HCPCS: 36415; 80053; 83735; 85027